=== PATIENT | female | born 1955 | race Caucasian/White ===

== ENCOUNTER 2024-05-09 09:40 | Inpatient (IN) ==
--- NOTE | 2024-05-09 10:12 | Emergency Department Note ---
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 Per external records and the office visit in [facility] from [facility] on 04/18/2024 patient has a past medical history of cancer of the sigmoid status post robotic assisted laparoscopic resection and biopsy from the right scapula which shows metastatic adenocarcinoma consistent with colorectal cancer as the primary source. She just started third line treatment Lonsurf and Bevcizumab. She notes that she started these medications yesterday. At 11 PM last night she noticed shortness of breath and feels like she cannot take a deep breath. She denies any new cough, congestion, or runny nose. No headache or change in vision. No belly pain. No nausea, vomiting, or diarrhea. No dysuria, urgency, or frequency. No other exacerbating or remitting factors. She has also noticed some mild pitting edema to the bilateral lower extremities which she noticed in her calves over the past day. ADDITIONAL HISTORY OBTAINED: Per HPI Chronic Medical/Social Conditions Affecting Care: Per HPI PAST MEDICAL HISTORY:See Below PAST SURGICAL HISTORY:See Below FAMILY HISTORY:See Below SOCIAL HISTORY:See Below HOME MEDICATIONS:See Below ALLERGIES:See Below VITALS:See Below PHYSICAL EXAMINATION: GENERAL: Sitting up in bed, alert, chronically ill-appearing, malnourished, EYE EXAM: normal conjunctiva. OROPHARYNX: no exudate, no erythema, lips, buccal mucosa, and tongue normal and mucous membranes are moist NECK: supple, no nuchal rigidity, no adenopathy, non-tender LUNGS: Clear to auscultation. Normal chest wall mechanics HEART: no murmurs, S1 normal and S2 normal ABDOMEN: abdomen soft, non-tender, normo-active bowel sounds, no masses, no rebound or guarding. UPPER EXTREMITIES: upper extremities are grossly normal. LOWER EXTREMITIES: Feet pitting edema bilaterally. Calves are equal bilaterally NEURO EXAM: Normal sensorium, cranial nerves II-XII grossly intact, normal speech, no gross weakness of arms, no gross weakness of legs. MEDICAL DECISION MAKING: Patient is a 69-year-old female who presents ER for the below stated complaint. IV was established and blood work was obtained. Patient was short of breath and found to be hypoxic. She was placed on 2 L nasal cannula due to hypoxia at 87%. Labs show no significant leukocytosis. Mild anemia at 9. Platelets are slightly low at 122. BMP with mild hyponatremia at 131. LFTs and bilirubin were unremarkable. Troponin mildly elevated at 18. BNP elevated 1200. Lipase normal. Chest x-ray with small pleural effusions. Patient was given IV Lasix updated bedside discussed with the hospitalist for further evaluation management treatment. Consults/Care Managements Discussions: Per MDM Triage Nursing notes reviewed. Limited review of prior medical records performed Vital Signs: reviewed and remarkable for no significant abnormalities Differential diagnosis: Differential diagnoses includes but is not limited to pneumonia, bronchitis, COPD/Asthma exacerbation, pneumothorax, pulmonary embolism, congestive heart failure, acute coronary syndrome ER treatment provided: See below Diagnostics interpreted by me include EKG and cardiac monitoring as listed below: -Cardiac Monitoring: An order was placed for continuous cardiac monitoring. The monitor shows a rate of 95 with sinus rhythm. -ECG: Sinus tachycardia rate of 101 Normal axis No PVCs QTc 474 -Laboratory studies:Interpreted by me as stated above in MDM and shown below. Imaging studies: Xrays: As interpreted by me: Portable AP upright 1 view of the chest shows vascular congestion with effusions CTs show: None Procedures: None Critical Care: I have personally spent 33 minutes of critical care time in the direct management of this patient. This includes bedside care, interpretation of diagnostic studies, and testing, discussion with consultants, patient, and family members, and other required patient management activities. This 33 minutes is in excess of all separately billable procedures. 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 (Acute) Pain from bone metastases (Chronic) Medical History (Updated 05/09/24 @ 13:40 by Saurabh Ordoñez DO) Breast cancer Surgical History (Updated 11/14/23 @ 09:04 by Marilu Hernandez RN) History of bowel resection Hx of cystoscopy S/P total hysterectomy and BSO (bilateral salpingo-oophorectomy) H/O right mastectomy Family History (Updated 11/14/23 @ 09:06 by Marilu Hernandez RN) Mother Cancer breast x 2 25 yrs apart Aunt Cancer multiple aunts with different forms of cancer Social History (Updated 11/14/23 @ 09:07 by Marilu Hernandez RN) Smoking Status: Never smoker Tobacco Type: Cigarettes Hx Alcohol Use: No Hx Substance Use: No Preferred Language: Afghan Visual Impairment: No Limitations Hearing Ability: Normal Beliefs That Will Affect Care: None Current Living Situation: Alone current occupational status: retired Feels Safe at Home: Yes Diet: regular during the past year weight has: remained stable Assistive Devices: Denture - Upper, Denture - Lower and Glasses Allergies Allergies Allergy/AdvReac Type Severity Reaction Status Date / Time doxycycline Allergy Intermediate Made me Unverified 04/25/24 09:40 feel worse metoclopramide [From Reglan] Allergy Intermediate Hives Unverified 04/25/24 09:40 Home Meds Home Medications Medication Instructions Recorded Confirmed metoprolol succinate 25 mg capsule 25 mg PO DAILY 11/14/23 05/09/24 sprinkle, ext. release 24 hr morphine 15 mg tablet,extended 15 mg PO Q12H 04/25/24 05/09/24 release (MS Contin) oxycodone 5 mg tablet 5 mg PO Q4H PRN Breakthrough Pain, 04/25/24 05/09/24 Moderate acetaminophen 500 mg tablet 500 mg PO Q6H PRN Breakthrough Pain 05/09/24 05/09/24 apixaban 5 mg tablet (Eliquis) 5 mg PO BID 05/09/24 05/09/24 ondansetron HCl 8 mg tablet 8 mg PO DIRECTED PRN n/v 05/09/24 05/09/24 trifluridine 15 mg-tipiracil 6.14 1 tab PO DIRECTED 05/09/24 05/09/24 mg tablet (Lonsurf) trifluridine 20 mg-tipiracil 8.19 1 tab PO DIRECTED 05/09/24 05/09/24 mg tablet (Lonsurf) Results & Data (ED) Vital Signs Vital Signs - 24 hr 05/09/24 09:48 05/09/24 10:00 05/09/24 10:00 Temperature 37.0 C Temperature Source Oral Pulse Rate 100 H 98 H Pulse Rate [Left Finger] Pulse Rhythm Regular Respiratory Rate 22 16 Respiratory Effort / Characteristics Labored Respiratory Pattern Regular Blood Pressure 124/79 Blood Pressure [Left Arm] Blood Pressure Mean 94 Blood Pressure Mean [Left Arm] Blood Pressure Position Sitting Pulse Oximetry 98 96 Oxygen Delivery Method Room Air Room Air Room Air Oxygen Flow Rate Sepsis Recent Fever Within 48 Hours No Sepsis New/Unexplained Change in Mental Status No Sepsis Action Taken by Nursing No Action Required 05/09/24 10:00 05/09/24 11:02 05/09/24 11:28 Temperature Temperature Source Pulse Rate 95 H Pulse Rate [Left Finger] Pulse Rhythm Respiratory Rate Respiratory Effort / Characteristics Respiratory Pattern Blood Pressure Blood Pressure [Left Arm] Blood Pressure Mean Blood Pressure Mean [Left Arm] Blood Pressure Position Pulse Oximetry 98 87 L Oxygen Delivery Method Room Air Room Air Oxygen Flow Rate Sepsis Recent Fever Within 48 Hours Sepsis New/Unexplained Change in Mental Status Sepsis Action Taken by Nursing 05/09/24 11:28 Temperature Temperature Source Pulse Rate Pulse Rate [Left Finger] 105 H Pulse Rhythm Respiratory Rate 22 Respiratory Effort / Characteristics Respiratory Pattern Blood Pressure Blood Pressure [Left Arm] 130/74 Blood Pressure Mean Blood Pressure Mean [Left Arm] 92 Blood Pressure Position Pulse Oximetry 98 Oxygen Delivery Method Nasal Cannula Oxygen Flow Rate 2 Sepsis Recent Fever Within 48 Hours Sepsis New/Unexplained Change in Mental Status Sepsis Action Taken by Nursing Laboratory Data 05/09/24 10:00 05/09/24 10:00 Lab Results 05/09/24 Range/Units 10:00 WBC 6.69 (4.8-10.8) K/ul RBC 3.24 L (4.20-5.40) M/uL Hgb 9.5 L (12.0-16.0) g/dl Hct 30.3 L (37.0-47.0) % MCV 93.5 (80.0-100.0) fL MCH 29.3 (25.0-34.0) pg MCHC 31.4 L (32.0-36.0) g/dL RDW Std Deviation 54.0 H (36.4-46.3) fL RDW Coeff of Katina 15.9 H (11.5-14.5) % Plt Count 122 L (130-400) K/uL MPV 10.8 (9.4-12.4) fL Immature Gran % (Auto) 0.6 % Neut % (Auto) 77.6 % Lymph % (Auto) 14.3 % [place] % (Auto) 4.5 % Eos % (Auto) 2.4 % Baso % (Auto) 0.6 % Neut # (Auto) 5.19 (1.40-6.50) K/uL Lymph # (Auto) 0.96 L (1.20-3.40) K/uL [place] # (Auto) 0.30 (0.11-0.59) K/uL Eos # (Auto) 0.16 (0.00-0.50) K/uL Baso # (Auto) 0.04 (0.00-0.20) K/uL Immature Gran # (Auto) 0.04 (0.01-0.20) K/uL Sodium 131 L (136-145) mmol/L Potassium 3.8 (3.5-5.1) mmol/L Chloride 100 (98-107) mmol/L Carbon Dioxide 23 (21-32) mmol/L Anion Gap 8 (3-11) BUN 10 (6-23) mg/dl Creatinine 0.35 L (0.6-1.2) mg/dl Est Cr Clr Drug Dosing Not Reportable eGFR 110.57 BUN/Creatinine Ratio 28.6 H (10-20) Glucose 108 H (70-99(Fasting)) mg/dl Calcium 7.6 L (8.6-10.3) mg/dl Total Bilirubin 0.7 (0.2-1.0) mg/dl AST 17 (13-39) U/L ALT 17 (7-52) U/L Alkaline Phosphatase 189 H (34-104) U/L Troponin I High Sens 18.5 H (0-14) pg/ml B-Natriuretic Peptide 1246 H (0-100) pg/ml Total Protein 6.7 (6.0-8.3) gm/dl Albumin 3.4 (3.4-5.0) gm/dl Globulin 3.3 (2.5-4.0) gm/dl Albumin/Globulin Ratio 1.0 (0.9-2) Lipase 7 L (11-82) U/L Administered Medications Discontinued Medications Furosemide (Furosemide 40 Mg/4 Ml Vial) 40 mg IV NOW STA Stop: 05/09/24 10:52 Last Admin: 05/09/24 10:59 Dose: 40 mg Documented By: GRETCHEN Imaging Data Radiologist's Impression: Chest X-Ray 05/09/24 10:04 XR chest 1V portable CLINICAL HISTORY: Chest pain, nonspecific COMPARISON STUDY: 11/02/2023 FINDINGS: Single view portable chest demonstrates a patchy airspace opacity in the right cardiophrenic angle and overall generalized increase in bronchovascular markings. There is slight blunting of the costophrenic angles. There is no atelectasis or pneumothorax. A MediPort catheter is identified entering from the right with the tip in the right atrium. IMPRESSION: Small infiltrate medial right lung base could represent early pneumonia. Generalized prominence of bronchovascular markings could represent a mild upper respiratory infection, fluid imbalance, or response to chemotherapy. Small bilateral pleural effusions are likely. ACT 112: Negative or not required by law. Electronically signed by: Kristin Singleton M.D. 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
[2024-05-09 10:29] LABS: Basophils # (auto) 0.04 K/uL (0.00-0.20); Basophils % (auto) 0.6 %; Eosinophils # (auto) 0.16 K/uL (0.00-0.50); Eosinophils % (auto) 2.4 %; Hematocrit (blood only) 30.3 % (37.0-47.0); Hemoglobin 9.5 g/dl (12.0-16.0); Immature Granulocytes # (auto) 0.04 K/uL (0.01-0.20); Immature Granulocytes % (auto) 0.6 %; Lymphocytes # (auto) 0.96 K/uL (1.20-3.40); Lymphocytes % (auto) 14.3 %; Mean Corpuscular Hemoglobin 29.3 pg (25.0-34.0); Mean Corpuscular Hgb Conc 31.4 g/dL (32.0-36.0); Mean Corpuscular Volume 93.5 fL (80.0-100.0); Mean Platelet Volume 10.8 fL (9.4-12.4); Monocytes % (auto) 4.5 %; Neutrophils # (auto) 5.19 K/uL (1.40-6.50); Neutrophils % (auto) 77.6 %; Platelet Count 122 K/uL (130-400); RDW Coefficient of Variation 15.9 % (11.5-14.5); Red Blood Count 3.24 M/uL (4.20-5.40); White Blood Count 6.69 K/ul (4.8-10.8)
--- NOTE | 2024-05-09 10:31 | XRay Report ---
XR chest 1V portable CLINICAL HISTORY: Chest pain, nonspecific COMPARISON STUDY: 11/02/2023 FINDINGS: Single view portable chest demonstrates a patchy airspace opacity in the right cardiophreni c angle and overall generalized increase in bronchovascular markings. There is slight blunting of the costophrenic angles. There is no atelectasis or pneumothorax. A MediPort catheter is identified ente ring from the right with the tip in the right atrium. IMPRESSION: Small infiltrate medial right lung base could represent early pneumonia. Generalized prominence of bronchovascular markings could represent a mild upper respiratory infection , fluid imbalance, or response to chemotherapy. Small bilateral pleural effusions are likely. ACT 112: Negative or not required by law. Electronically signed by: Kristin Singleton M.D. 05/09/2024 10:29 AM
[2024-05-09 10:41] LABS: Alanine Aminotransferase 17 U/L (7-52); Albumin Level 3.4 gm/dl (3.4-5.0); Alkaline Phosphatase 189 U/L (34-104); Anion Gap 8 (3-11); Aspartate Aminotransferase 17 U/L (13-39); BUN Creatinine Ratio 28.6 (10-20); Bilirubin,Total 0.7 mg/dl (0.2-1.0); Blood Urea Nitrogen 10 mg/dl (6-23); Calcium 7.6 mg/dl (8.6-10.3); Carbon Dioxide 23 mmol/L (21-32); Chloride 100 mmol/L (98-107); Globulin 3.3 gm/dl (2.5-4.0); Glucose 108 mg/dl (70-99(Fasting)); Lipase 7 U/L (11-82); Potassium 3.8 mmol/L (3.5-5.1); Sodium 131 mmol/L (136-145); Total Protein 6.7 gm/dl (6.0-8.3)
[2024-05-09 10:48] LABS: Troponin I High Sensitivity 18.5 pg/ml (0-14)
[2024-05-09] MEDS: FUROSEMIDE 40 MG/4 ML VIAL IV STA (10:59)
--- NOTE | 2024-05-09 11:16 | Communication Note ---
Date of Service: May 09, 2024 69-year-old female, a case of sigmoid colon cancer, locally advanced disease, she had low anterior resection and hysterectomy as it was involving the cervix and uterus, pathological T4 B, 5/15 lymph node positive for metastatic disease, normal preoperative CEA level in November of 2022. She received adjuvant chemotherapy with 10 cycles of FOLFOX but then allergic reaction with the oxaliplatin so she received 2 cycles of FOLFIRI which was completed in July of 2023. 2 months later, found to have FDG avid bone lesions involving the right scapula, L5 vertebral body and left proximal femur. Biopsy from the right scapula confirmed adenocarcinoma compatible with colorectal primary. She had radiation treatment to the right scapula, lumbar spine and left proximal femur which was completed in November of 2023. She received FOLFIRI between December 2023 - early March 2024. PET-CT scan done in mid-March 2024 showed significant disease progression mainly in the multiple bones. She does complain of left hip pain. 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 Reviewed information outlined on [facility] website regarding further treatment with her and her daughter. We talked about overall treatment goal which would be palliative and not curative I would consider for Lonsurf (trifluridine and tipiracil) and Bevacizumab ( received 04/22 and 05/06)combination, reviewed with them regarding treatment schedule side effect profile and she is in agreement for that. I would like to have Radiation Oncology consultation and see whether she can be a candidate for additional palliative radiation treatment. She will continue oxycodone for now. We talked to her about long-acting opioid but she would like to continue oxycodone at this time. I would like to start Xgeva every monthly. She should take vitamin-D and Calcium supplementation on regular basis. History of A-fib; seen by cardiology. EF of 55% in December 2023.
--- NOTE | 2024-05-09 11:49 | History & Physical Report ---
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 She is currently under Dr. Almonte's care; on Lonsurf and bevacizumab (received on 04/22 and 05/06) Acute CHF Patient presents with shortness of breath, orthopnea and bilateral lower extremity edema BNP elevated to 1246 PG/mL Chest x-ray reviewed; pulmonary edema present Started on IV Lasix 40 mg twice daily. Strict input and output monitoring. Daily weights. Obtain echocardiogram; echocardiogram from December 2023 showed EF of 55% Will obtain cardiology consult Reached out to oncology regarding possibility of relation of bevacizumab; seems unlikely as per Dr. Almonte. Recommended to hold treatment for now. Obtain urinalysis, urine protein creatinine ratio to rule out nephrotic syndrome History of paroxysmal A-fib EKG on admission reviewed; sinus tachycardia present Continue on metoprolol and Eliquis Metastatic sigmoid cancer on palliative chemotherapy/radiation Continue pain control with home medication Will hold Lonsurf as per recommendation by Dr. Almonte DNR/DNI DVT prophylaxis Eliquis; monitor platelets Discussed with daughter at bedside. Agreeable with the plan. Time spent evaluating patient, direct bedside care, chart review, placing orders, interpretation of diagnostic studies, discussion with consultants, patient, and family members, as well as other required patient management activities is 75 minutes Please note the above document was generated using voice recognition software. It may contain grammatical, syntax or spelling errors. Any formal questions or concerns about the content, text or information contained within the body of this dictation should be directly addressed to the provider for clarification History of Present Illness Chief Complaint: Shortness of breath for 1 week Bilateral lower extremity edema Primary Care Provider: Lina Young MD History obtained from chart review and interview with the patient. Past medical history of sigmoid cancer, locally advanced status post low anterior resection and hysterectomy. Had received adjuvant chemotherapy of 10 cycle of FOLFOX but then allergic reaction with the oxaliplatin so she received 2 cycles of FOLFIRI which was completed in July of 2023. Currently on palliative radiation and chemotherapy due to progression of disease with metastatic to bones. Received bevacizumab 04/22 and 05/06. Also on Lonsurf (trifluridine and tipiracil); started recently. Other significant history of remote breast cancer, history of A-fib on metoprolol and Eliquis. Echo in December 2023 shows EF of 55% Patient presents to the hospital with shortness of breath, lower extremity edema and orthopnea for several days. She denies fever, chills, chest pain, abdominal pain or urinary symptoms. She reports pain at places of metastatic disease. She takes morphine for pain relief. Workup in the ED is concerning for CHF; referred for admission. Allergies Allergy/AdvReac Type Severity Reaction Status Date / Time doxycycline Allergy Intermediate Made me Unverified 04/25/24 09:40 feel worse metoclopramide [From Reglan] Allergy Intermediate Hives Unverified 04/25/24 09:40 Home Medications Medication Instructions Recorded Confirmed Type acetaminophen 325 mg tablet 325 mg PO QID PRN PAIN/FEVER 11/02/23 04/25/24 History (Tylenol) metoprolol succinate 25 mg capsule 12.5 mg PO DAILY 11/14/23 04/25/24 History sprinkle, ext. release 24 hr apixaban 2.5 mg tablet (Eliquis) 2.5 mg PO BID 04/25/24 04/25/24 History morphine 15 mg tablet,extended 15 mg PO Q12H 04/25/24 04/25/24 History release (MS Contin) oxycodone 5 mg tablet 5 mg PO Q4H PRN 04/25/24 04/25/24 History ondansetron HCl 8 mg tablet 8 mg PO DIRECTED PRN n/v 05/09/24 History trifluridine 15 mg-tipiracil 6.14 1 tab PO DIRECTED 05/09/24 History mg tablet (Lonsurf) trifluridine 20 mg-tipiracil 8.19 1 tab PO DIRECTED 05/09/24 History mg tablet (Lonsurf) Past Med/Surg History Problem List (Updated 05/09/24 @ 11:50 by Lex Noonan MD) Atrial fibrillation CHF (congestive heart failure) 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 Pain from bone metastases (Chronic) Medical History (Updated 05/09/24 @ 11:50 by Lex Noonan MD) Breast cancer Surgical History (Updated 11/14/23 @ 09:04 by Marilu Hernandez, RN) History of bowel resection Hx of cystoscopy S/P total hysterectomy and BSO (bilateral salpingo-oophorectomy) H/O right mastectomy Family History (Updated 11/14/23 @ 09:06 by Marilu Hernandez, RN) Mother Cancer breast x 2 25 yrs apart Aunt Cancer multiple aunts with different forms of cancer Social History (Updated 11/14/23 @ 09:07 by Marilu Hernandez, RN) Smoking Status: Never smoker Tobacco Type: Cigarettes Hx Alcohol Use: No Hx Substance Use: No Preferred Language: [place] Visual Impairment: No Limitations Hearing Ability: Normal Beliefs That Will Affect Care: None Current Living Situation: Alone current occupational status: retired Feels Safe at Home: Yes Diet: regular during the past year weight has: remained stable Assistive Devices: Denture - Upper, Denture - Lower and Glasses Review of Systems Review of Systems: All systems reviewed & are unremarkable except as noted in Subjective Physical Exam Physical Exam: Constitutional: Awake, alert oriented x 3. Not in any distress. Respiratory: Bilateral basilar crackles present. Cardiovascular: Regular, tachycardic. Elevated JVP Chest: normal inspection of chest Abdomen: normal bowel sounds, soft, nontender, no hepatosplenomegaly Musculoskeletal: Bilateral pitting edema present, 2+. Neurologic: PERRL, EOMI, accommodation nl, no face palsy, no dysarthria CN's II- XI intact bilaterally and moves all extremities Psychiatric: A+Ox3, euthymic affect Results & Data Results & Data Vital Signs (Past 12 Hours) Vital Signs Temp Pulse Pulse Resp BP BP Pulse Ox 05/09/24 11:28 105 H 22 130/74 98 05/09/24 11:28 87 L 05/09/24 11:02 95 H 05/09/24 10:00 98 05/09/24 10:00 05/09/24 10:00 98 H 16 96 05/09/24 09:48 37.0 C 100 H 22 124/79 98 O2 Del Method O2 Flow Rate 05/09/24 11:28 Nasal Cannula 2 05/09/24 11:28 Room Air 05/09/24 11:02 05/09/24 10:00 Room Air 05/09/24 10:00 Room Air 05/09/24 10:00 Room Air 05/09/24 09:48 Room Air Code Status & VTE Plan VTE Prophylaxis Plan VTE Prophylaxis will be ordered: No Reason for no VTE drug order: Treatment not indicated
--- OUTSIDE RECORDS SUMMARY | 2024-05-09 12:11 | External Medical Summary | Summary of Care ---
Author Name Unknown Organization [facility] Address [address] [place] [address] Phone [phone] Care Team Providers Care Sharepoint Manager Name Role Phone Lina Can MD Primary Care Prov ider Reason for Visit * Reason Onset Date Comments Precert Future 04/18/2024 annel Wan Encounter Details Date Type Department Care Team (Late st Contact Info) Description 04/18/2024 Telephone Hematology/Oncology Treatment, [place] [address] [place] [address] Chandni Almonte MD [address] [place] [address] Precert Future (annel Wan) Allergies Active Allergy Reactions Criticality Noted Date Comments Amoxicillin-Pot Clavulanate Nausea/vomiting 07/12/2022 GI upset Doxycycline Nausea/vomiting 07/12/2022 GI upset Oxaliplatin Flushing High 07/27/2023 Shortness of breath Metoclopramide Hives 08/10/2022 documented as of this encounter (statuses as of 05/06/2024) Medications Acetaminophen 500 MG Oral Tablet (Tylenol Extra Strength) Take 1 Tablet by mouth every 6 hours as needed for Fever (Temp Greater than ) or Pain, Moderate. Active Prochlorperazine Maleate 10 MG Oral Tablet (Compazine)Indic ations:Malignant neoplasm of sigmoid colon (HCC) Take 1 Tablet by mouth every 6 hours as needed for Nausea. 30 Tablet 1 12/18/19 24 Active Metoprolol Succinate ER 25 MG Oral Tablet Extended Release 24 Hour (toPROL XL)Indications:N ew onset atrial fibrillation (HCC) Take 1 Tablet by mouth in the morning. 90 Tablet 1 02/19/20 24 Active Eliquis 5 MG Oral Tablet Take 1 Tablet by mouth in the morning and 1 Tablet before bedtime. 60 Tablet 11 02/26/20 24 Active Potassium Chloride ER 10 MEQ Oral Tablet Extended ReleaseIndicatio ns:Malignant neoplasm of sigmoid colon (HCC) Take 1 Tablet by mouth in the morning. 30 Tablet 1 03/11/20 24 Active Additional Information Patient not taking.Reported on 05/01/2024 traMADol HCl 50 MG Oral Tablet (Ultram)Indicati ons:Malignant neoplasm of sigmoid colon (HCC) Take 1 Tablet by mouth every 6 hours as needed for Pain, Moderate. 30 Tablet 04/11/19 25 Active Ondansetron HCl 8 MG Oral Tablet (Zofran)Indicati ons:Malignant neoplasm of sigmoid colon (HCC) Take 1 Tablet by mouth every 8 hours as needed for Nausea. 30 Tablet 1 12/18/19 24 025 Discontin ued(Refil l) oxyCODONE HCl 5 MG Oral Tablet (Oxy IR)Indications:M alignant neoplasm of sigmoid colon (HCC),Metastasis to bone (HCC) Take 1 Tablet by mouth every 4 hours as needed for Pain, Moderate. 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 Patient declined Within the past 12 months, t he food you bought just didn't last and you didn't have money to get more. Patient declined 06/2022 Comments No Sex and Gender Information Value Date Recorded Sex Assigned at Female 08/10/2022 10:14 AM EDT Legal Sex Female 7:14 AM EST Gender Identity Female 08/10/2022 10:14 AM EDT Sexual Orientation Straight 08/10/2022 10 :14 AM EDT documented as of this encounter Functional Status * Are you deaf or do you have serious difficulty hearing? Answer Date of Assessment Author No 11/25/2022 5:16 PM Nikita Milton RN * Are you blind or do you have serious difficulty seeing, even when wearing glasses? Answer Date of Assessment Author No 11/25/2022 5:16 PM Nikita Milton RN * Do you have serious difficulty walking or climbing stairs? (5 years old or older) Answer Date of Assessment Author No 11/25/2022 5:16 PM Nikita Milton RN * Do you have difficulty dressing or bathing? (5 years old or older) Answer Date of Assessment Author No 11/25/2022 5:16 PM Nikita Milton RN * Because of a physical, mental, or emotional condition, do you have difficulty doing errands alone such as visiting a doctors office or shopping? (15 years old or older) Answer Date of Assessment Author No 11/25/2022 5:16 PM EDT Nikita Ramirez RN documented as of this encounter Mental Status * Because of a physical, mental, or emotional condition, do you have serious difficulty concentrating, remembering, or making decisions? (5 years old or older) Answer Entry Date Author No 11/25/2022 5:16 PM EDT Nikita Ramirez RN documented in this encounter Miscellaneous Notes * Telephone Encounter - Tereza Gray RN - 05/06/2024 2:36 PM EST Per [facility] note, patient is starting lonsurf 05/07. * Telephone Encounter - Tereza Gray RN - 05/02/2024 7:26 AM EST Lonsurf is being shipped 05/06. * Telephone Encounter - Tereza Gray RN - 04/30/2024 1:39 PM EST Spoke to Prema Sandoval- since patient has uncompensated care, checking for cross approval. * Telephone Encounter - Tereza Gray RN - 04/29/2024 7:41 AM EST Copay assistance still in process. * Telephone Encounter - Tereza Gray RN - 04/23/2024 10:27 AM EST Referral entered for lonsurf, can be filled at [facility]. MyG sent. * Telephone Encounter - Glo Drake OSA - 04/19/2024 8:21 AM EST Updated appts * Telephone Encounter - Tereza Gray RN - 04/19/2024 7:37 AM EST Zirabev referral entered. Waiting for lonsurf. * Telephone Encounter - Tereza Gray RN - 04/18/2024 3:47 PM EST Order received for zirabev, lonsurf. [place] plan built. Waiting for auth. Consent signed 04/18/24. Patient is scheduled for treatment 04/22- will change this to zirabev. Labs today- patient aware she needs to drop off urine specimen. Scheduling: please change appts 04/22 - change lab appt to 1pm "urine" - change treatment at 1:15 to 2 hour appt "C1D1 zirabev- use labs from 04/18/24" Precert: can you please update referral for zirabev? This was approved until previous beacon plan. Thanks! documented in this encounter Plan of Treatment Upcoming Encounters Date Type Department Care Team (Late st Contact Info) Description 05/15/2024 10:00 AM EST Office Visit Palliative Medicine [facility] [address] [place] [address] Bianca Ruiz MD [address] [place], [place] [address] [address] 05/16/2024 9:45 AM EST Pharmacy Pharmacy Hematology Oncology [facility] [address] [place] [address] [facility] Hem/Onc [address] [place] [address] 05/20/2024 9:40 AM EST Laboratory Laboratory [facility] [address] [place] [phone] Nasreen, [address] [place] [address] 05/20/2024 10:15 AM EST Office Visit Hematology/Oncology [facility] [place] [address] [place] [phone] Chandni Almonte MD [address] [place] [address] 05/20/2024 10:45 AM EST Hem/Onc Treatment Hematology/Oncology [facility] [address] [place] [phone] Nasreen, Chair [address] Onc [address] [place] [address] 07/19/2024 11:30 AM EDT Office Visit Cardiology, [facility] [address] [facility] [place] [address] Ciro Saini, [address] [place] [address] 02/03/2025 1:00 PM EDT Office Visit Gynecology/Obstetrics [facility] [address] [facility] [place] [address] Nelli Farrell CRNP [address] [place] [address] Health Maintenance Due Date Last Done Comments Hepatitis C Screening 1973 DTap/Tdap Vaccines (1 - Tdap) 1974 Pneumococcal Vaccine: 50+ Years (1 of 2 - PCV) 1974 Zoster Vaccines (1 of 2) 1974 Cologuard 02/03/2000 Fecal Occult Blood Test 02/03/2000 Sigmoidoscopy 02/03/2000 DXA Scan 02/03/2020 COVID-19 Vaccine (3 - Moderna risk series) 07/25/2020 06/27/2020, 05/30/2020 Adult Wellness Visit 2021 Depression Screening 08/11/2023 08/10/2022 Influenza Vaccine (FLU shot) (#1) 2023 Lipid Panel 07/13/2027 07/12/2022 Colonoscopy 10/21/2032 10/21/2022, 10/08, 10/06/2022, Additional history exists Colorectal Cancer Screening 10/21/2032 Pap Smear Discontinued 08/10/2022 HPV (Gardasil) Vaccine Aged Out No lo nger eligible based on patient's age to complete this topic Hepatitis B Vaccine Aged Out No longe r eligible based on patient's age to complete this topic MENINGOCOCCAL (MENACTRA/MENVEO) Aged Out No longer eligible based on patient's age to complete this topic documented as of this encounter Medical Devices Implanted Type Area Email Marketing Processor Device Identifier Shelf Expiration Date Model / Serial / Lot Power Port 8fr Sngl Lumen Plas - [id number] Implanted:Qty : 1 on 01/05/2023 by Jai Malcolm Jr., MD at OR [facility] Right: Chest CR BARD : PERIPHERAL VASCULAR [id number] 07/08/2024 [id number] / / [id number] documented as of this encounter Advance Directives * Full Code (Latest Code Status on File) Date Activated Date Inactivated Comments 11/25/2022 1:54 PM 11/27/2022 2:41 PM This order r eflects the patients wishes and were consensually agreed upon. Question Answer Comments Discussion of Advance Directives occurred with: Patient Does the patient have a Living Will? No Does the patient have Health Care Power of Attor johann? No Care Teams Sharepoint Manager Relationship Specialty Start Date End Date Lina Can MD [address] [place] [address] [place] [address] PCP - General Family Medicine 08/06/22 documented as of this encounter
--- OUTSIDE RECORDS SUMMARY | 2024-05-09 12:11 | External Medical Summary ---
Author Name Unknown Address Unknown Organization [facility] [place] [address] Laboratory Report Ordering Provider Test Date Status DANNIELLE OLVERA 05/06/2024 10:32:39 Final Observation Date Value Abnormality Reference (Units ) Status RBC, Urine 05/06/2024 10:32:39 0-2 0-2 (/HPF) Final WBC, Urine 05/06/2024 10:32:39 30-49 Abnormal 0-2 (/HPF) Final Bacteria [#/area] in Urine sediment by Microscopy high power field 05/06/2024 10:32:39 26-50 Abnormal 0-25 (/HPF) Final Performing Location [facility] [address] [place] [address]
--- OUTSIDE RECORDS SUMMARY | 2024-05-09 12:11 | External Medical Summary ---
Author Name Unknown Address Unknown Organization [facility] [address] [place] [address] Laboratory Report Ordering Provider Test Date Status DANNIELLE OLVERA 05/06/2024 10:32:39 Final Observation Date Value Abnormality Reference (Units ) Status BUN 05/06/2024 10:32:39 10 6-20 (mg/dL) Final Creatinine 05/06/2024 10:32:39 0.4 Below low normal 0.5-1.0 (mg/dL) Final Glomerular filtration rate/1.73 sq M.predicted [Volume Rate/Area] in Serum, Plasma or Blood by Creatinine-based formula (CKD-EPI) 05/06/2024 10:32:39 >90 >=60 (mL/min) Final eGFR is calculated based on the CKD-EPI 2020 equation. Sodium 05/06/2024 10:32:39 133 Below low normal 135 -146 (mmol/L) Final Potassium 05/06/2024 10:32:39 4.0 3.5-5.1 (m mol/L) Final Cl 05/06/2024 10:32:39 97 Below low normal 98- 107 (mmol/L) Final CO2 05/06/2024 10:32:39 23 22-32 (mmo l/L) Final Anion gap 05/06/2024 10:32:39 13 7-15 (mmol /L) Final Glucose 05/06/2024 10:32:39 120 70-120 (mg /dL) Final Albumin 05/06/2024 10:32:39 3.5 Below low normal 3.8 -5.0 (g/dL) Final AST (Aspartate aminotransferase) 05/06/2024 10:32:39 34 10-35 (U/L) Fin al Alk Phos 05/06/2024 10:32:39 229 Above high normal 35 -130 (U/L) Final Bilirubin, Total 05/06/2024 10:32:39 0.5 <=1 .2 (mg/dL) Final Calcium 05/06/2024 10:32:39 8.8 8.4-10.2 ( mg/dL) Final Protein 05/06/2024 10:32:39 7.3 6.0-8.3 (g /dL) Final ALT (Alanine aminotransferase) 05/06/2024 10:32:39 27 10-35 (U/L) Shubham ornelas Performing Location [facility] [address] [place] [address]
--- OUTSIDE RECORDS SUMMARY | 2024-05-09 12:11 | External Medical Summary ---
Author Name Unknown Address Unknown Organization [facility] [address] Laboratory Report Ordering Provider Test Date Status DANNIELLE OLVERA 05/06/2024 10:32:39 Final Observation Date Value Abnormality Reference (Units ) Status WBC, Total 05/06/2024 10:32:39 8.27 4.00-10.8 0 (K/uL) Final RBC 05/06/2024 10:32:39 3.41 3.85-5.15 (M/uL) Final Hemoglobin 05/06/2024 10:32:39 10.2 Below low normal 12 .0-15.3 (g/dL) Final HCT 05/06/2024 10:32:39 33.8 Below low normal 36. 0-45.2 (%) Final MCV 05/06/2024 10:32:39 99.1 81.5-97.5 (fL) Final MCH 05/06/2024 10:32:39 29.9 27.0-34.0 (pg) Final MCHC 05/06/2024 10:32:39 30.2 32.0-36.0 (g/dL) Final RDW 05/06/2024 10:32:39 15.6 11.5-15.5 (%) Final Platelets 05/06/2024 10:32:39 184 140-400 (K /uL) Final MPV 05/06/2024 10:32:39 10.6 6.6-11.1 ( fL) Final Performing Location [facility] [address]
--- OUTSIDE RECORDS SUMMARY | 2024-05-09 12:11 | External Medical Summary ---
Author Name Unknown Address Unknown Organization K[facility] [place] [address] Laboratory Report Ordering Provider Test Date Status DANNIELLE OLVERA 05/06/2024 10:32:39 Final Observation Date Value Abnormality Reference (Units ) Status Magnesium 05/06/2024 10:32:39 2.3 1.5-2.6 (m g/dL) Final Performing Location [facility] [place] [address]
--- OUTSIDE RECORDS SUMMARY | 2024-05-09 12:11 | External Medical Summary | Summary of Care ---
Author Name Unknown Organization [facility] Address [address] [place] [address] Phone [phone] Care Team Providers Care Stationary Engineer Apprentice Name Role Phone Lina Can MD Primary Care Prov ider Reason for Visit * Reason Comments Chemotherapy Zirabev * Episode Based Medications (Routine) - Authorized Specialty Diagnoses / Procedures Referred By Contac t Referred To Contact Diagnoses Encounter for antineoplastic chemotherapy Malignant neoplasm of sigmoid colon (HCC) Procedures SC INJ., ZIRABEV, 10 MG Heriberto Wiley MD [address] [place] [address] [place] [address] Phone: tel: fax: Hematology/Oncology Treatment, [address] [address] Phone: tel: fax: Referral ID Status Reason Start Date Expiration Date V isits Requested Visits Authorized [id number] Authorized 04/18/2024 04/09/2099 [id number] Encounter Details Date Type Department Care Team (Latest Contact Info) Description 05/06/2024 11:30 AM EST Hem/Onc Treatment Hematology/Oncolog y Treatment, [address] [address] Nasreen, Chair 1 Hem Onc [address] [place] [address] Encounter for antineoplastic chemotherapy*; Malignant neoplasm of sigmoid colon (HCC) Allergies Active Allergy Reactions Criticality Noted Date [...] Pain, Moderate. 30 Tablet 04/11/19 25 Active Morphine Sulfate ER 15 MG Oral Tablet Extended Release (Ms Contin)Indicatio ns:Malignant neoplasm of sigmoid colon (HCC),Metastasis to bone (HCC) Take 1 Tablet by mouth in the morning and 1 Tablet before bedtime. 60 Tablet 04/23/19 25 Active Trifluridine-Tip iracil 15-6.14 MG Oral Tablet (Lonsurf)Indicat ions:Malignant neoplasm of sigmoid colon (HCC) Take 2 tablets (30 mg) by mouth in the morning and 2 tablets (30 mg) before bedtime on days 1-5 and 8-12 of 28-day cycle. Take within 1 hour of meal. 40 Tablet 5 05/03/2024 1:01 PM EST 04/24/19 25 Active Trifluridine-Tip iracil 20-8.19 MG Oral Tablet (Lonsurf)Indicat ions:Malignant neoplasm of sigmoid colon (HCC) Take 1 tablet (20 mg) by mouth in the morning and 1 tablet (20 mg) before bedtime on days 1-5 and 8-12 of 28-day cycle. Take within 1 hour of meal. 20 Tablet 5 05/03/2024 1:01 PM EST 04/24/19 25 Active oxyCODONE HCl 5 MG Oral Tablet (Oxy IR)Indications:M alignant neoplasm of sigmoid colon (HCC),Metastasis to bone (HCC) Take 1 Tablet by mouth every 4 hours as needed for Pain, Moderate. Continued script 60 Tablet 04/29/19 25 Active Ondansetron HCl 8 MG Oral Tablet (Zofran)Indicati ons:Malignant neoplasm of sigmoid colon (HCC) Take 1 Tablet by mouth every 8 hours as needed for Nausea. 30 Tablet 1 12/18/19 24 025 Discontin ued(Refil l) documented as of [...] AM EDT documented as of this encounter Last Filed Vital Signs Vital Sign Reading Time Taken Comments Blood Pressure 116/80 05/06/2024 11:52 AM EST Pulse 121 05/06/2024 11:52 AM EST Temperature 35.8 C (96.5 F) 05/06/2024 11:[address] Respiratory Rate 16 05/06/2024 11:52 AM EST Oxygen Saturation 98% 05/06/2024 11:52 AM EST Inhaled Oxygen Concentration - - Weight - - Height - - Body Mass Index - - documented in this encounter Functional Status * Are you [...] Nikita Ramirez RN documented in this encounter Nursing Notes * Mery Luther RN - 05/06/2024 2:48 PM EST Pt completed treatment without issues. VAD flushed with 10 ml NSS and Heparin 5 ml (100 units/ml). Bowie needle removed intact. Goals: Pt will remain free from injury. Possible barriers to meeting goals: pt is currently a high fall risk Stability of the patient: Moderately stable - low risk of patient condition declining or worsening Summary regarding today's goals: Met: . Pt remained free from injury during treatment today. Discharged in stable condition. * Mery Luther RN - 05/06/2024 12:19 PM EST Chair 1 Chemotherapy/Immunotherapy agents: ANGEL Consent for chemotherapy drug treatment complete, dated, and signed? yes, date - 04/18/24 Treatment lab parameters met? Yes Has treatment weight changed > than 10%? No Treatment preauthorized? Yes VITALS Filed Vitals: 05/06/24 1152 BP: 116/80 Pulse: 121 Resp: 16 Temp: 35.8 C (96.5 F) SpO2: 98% BP Readings from Last 2 Encounters: 05/06/24 116/80 04/22/24 122/56 Pulse Readings from Last 2 Encounters: 05/06/24 121 04/22/24 136 Resp Readings from Last 2 Encounters: 05/06/24 16 04/22/24 16 SpO2 Readings from Last 2 Encounters: 05/06/24 98% 04/22/24 97% Temp Readings from Last 2 Encounters: 05/06/24 35.8 C (96.5 F) 04/22/24 36.2 C (97.2 F) Urine protein: POSITIVE, trace Patient education completed for treatment? Yes Blood transfusion consent signed and complete? NA Return appointment scheduled? Yes Patient had provider visit today? No - If no provider visit must complete Pretreatment Assessment PRE-TREATMENT ASSESSMENT: NEURO: fatigue:stable CV/RESP: denies symptoms GI/: denies symptoms OTHER: denies any additional symptoms PAIN: 5-6 pain location : Pt reports pain in BLEs, back. Pt is now taking MS Contin Q12 hours and states this has been more effective than Oxy IR. Pt is ambulating with difficulty, using a cane whichshe states helps with pain. Pt states pain at best is 2/10. VAD accessed; NSS infusing. Safety and Risk for Injury Patient will remain free from injury. Ensure appropriate safety devices are available. Provide and maintain safe environment. Functional Status: Functional status at today's visit: Ambulatory and capable of all selfcare but unable to carry out any work activities. Up and about more than 50% of waking hours The drug name, dose, infusion volume, rate and route of administration, expiration date and time, appearance and physical integrity of the drug and rate set on the pump and sequencing of drug administration (as applicable) were verified by me and second sign-in RN. Patient was assessed for symptoms or adverse side effects during treatment. Patient Education: Patient instructed on use of heat and massage functions where applicable. Patient shown how to operate the heat function of the chair and to alert nursing staff if the chair feels too warm. Patient instructed on the risk of potential carrillo while using the heat function. documented in this encounter Plan of Treatment Upcoming Encounters Date Type Department Care Team (Late st Contact Info) Description 05/15/2024 10:00 AM EST Office Visit Palliative Medicine [facility] [address] [place] [address] Bianca Ruiz MD [address] [place] [address] [place] [phone] 05/16/2024 9:45 AM EST Pharmacy Pharmacy Hematology Oncology [address] [place] [address] [facility] Hem/Onc [address] [facility], [place] [address] 05/20/2024 9:40 AM EST Laboratory Laboratory [facility] [address] [place] [phone] Nasreen, Lab Scen[address] [facility] [place] [address] 05/20/2024 10:15 AM EST Office Visit Hematology/Oncology [facility] [place] [address] [place] [phone] Chandni Almonte MD [address] [place] [address] 05/20/2024 10:45 AM EST [facility] [address] [place] [phone] Nasreen, Chair 11 Hem Onc Scen[address] [place] [address] 07/19/2024 11:30 AM EDT Office Visit Cardiology, [facility] [address] [place] [address] Ciro Saini DO [address] [place] [address] 02/03/2025 1:00 PM EDT Office Visit Gynecology/Obstetrics [facility] [address] [place] [address] Nelli Farrell CRNP [address] [place] [address] Health Maintenance Due Date Last Done Comments [...] this encounter Medical Devices Implanted Type Area Census Taker Device Identifier Shelf Expiration Date Model / Serial / Lot Power Port 8fr Sngl Lumen Plas - [id number] Implanted:Qty : 1 on 01/05/2023 by Jai Malcolm Jr., MD at OR [facility] Right: Chest CR BARD : PERIPHERAL VASCULAR [id number] 07/08/2024 [id number] / / [id number] documented as of this encounter Visit Diagnoses Diagnosis Encounter for antineoplastic chemotherapy- Primary Malignant neoplasm of sigmoid colon (HCC) Malignant neoplasm of sigmoid colon documented in this encounter Administered Medications Active Administered Medications - up to 3 most recent administrations Medication Order MAR Action Action Date Dose Rate Site diphenhydrAMINE (Benadryl) inj 50 mg 50 mg, IV Push, ONCE PRN Other, Hypersensitivity Reaction, Starting on Mon05/06/24 at 1152, Until Mon05/07/24 at 1151, For 24 hoursIndications:Encounter for antineoplastic chemotherapy,Malignant neoplasm of sigmoid colon (HCC) EPINEPHrine 1 MG/ML inj 0.3 mg 0.3 mg, Intramuscular, ONCE PRN Other, Hypersensitivity Reaction or Anaphylaxis, Starting on Mon05/06/24 at 1152, Until Mon05/07/24 at 1151, For 24 hoursIndications:Encounter for antineoplastic chemotherapy,Malignant neoplasm of sigmoid colon (HCC) hEParin 100 UNIT/ML Lock Flush inj 500 Units 500 Units (5 mL), IV Lock, PRN Other, IV Flush, Starting on Mon05/06/24 at 1152, Until Mon05/07/24 at 1151, For 24 hours, Do not flush if lock, PICC, or central line not in place; IV infusing or unable to flush.Indications:Encounter for antineoplastic chemotherapy,Malignant neoplasm of sigmoid colon (HCC) Given 05/06/2024 1:22 PM EST 500 Units Hydrocortisone Sod Suc (PF) (Solu-Cortef) inj 100 mg 100 mg, IV Push, ONCE PRN Other, Hypersensitivity Reaction, Starting on Mon05/06/24 at 1152, Until Mon05/07/24 at 1151, For 24 hoursIndications:Encounter for antineoplastic chemotherapy,Malignant neoplasm of sigmoid colon (HCC) NSS infusion Intravenous, at 50 mL/hr, PRN, Starting on Mon05/06/24 at 1300, Until Discontinued, Maintenance lineIndications:Encounter for antineoplastic chemotherapy,Malignant neoplasm of sigmoid colon (HCC) Start Infusion 05/06/2024 12:02 PM EST 50 mL/hr oxygen GAS Inhalation, OXYGEN, First dose on Mon05/06/24 at 1600, Until Discontinued, Device/Managed by: Low Flow Device, Goal SPO2 (%): 91-95, Starting Device: Nasal Cannula, Initial Flow Rate (LPM): 2, Lowest Support: Nasal Cannula: Flow 0-6 LPM. Titrate up/down by 1 LPM., Higher Support: Non-Rebreather (NRB) Mask: Minimum of 10 LPM. Titrate to maintain bag inflation., Titration Interval: Q2 minutes and as needed., Notify Provider: For sudden DECREASE in resting SPO2 to less than 85% and when escalating delivery device., Wean patient off Oxygen when the oxygen saturation is greater than or equal to 93%Indications:Encounter for antineoplastic chemotherapy,Malignant neoplasm of sigmoid colon (HCC) sodium chloride 0.9 % flush central line 10 mL 10 mL, IV Push, PRN Other, IV Flush, Starting on Mon05/06/24 at 1152, Until Mon05/07/24 at 1151, For 24 hours, Do not flush if lock, PICC, or central line not in place; IV infusing or unable to flush.Indications:Encounter for antineoplastic chemotherapy,Malignant neoplasm of sigmoid colon (HCC) Given 05/06/2024 1:22 PM EST 10 mL Inactive Administered Medications - up to 3 most recent administrations Medication Order MAR Action Action Date Dose Rate Site bevaCIZumab-bvzr (Zirabev) 265 mg in NSS 100 mL infusion 265 mg (5 mg/kg 53 kg Treatment plan Recorded weight), IV Piggyback, ONCE, 1 dose, On 05/06/24 at 1330, Administer over 30 Minutes, Flush with NSS only!Indications:Encounter for antineoplastic chemotherapy,Malignant neoplasm of sigmoid colon (HCC) Start Infusion 05/06/2024 12:45 PM EST 265 mg 210 mL/hr documented in this encounter Advance Directives * Full Code [...] Power of Attor johann? No Care Teams Stationary Engineer Apprentice Relationship Specialty Start Date End Date Lina Can MD [address] [place] [address] [place] [address] PCP - General Family Medicine 08/06/22 documented as of this encounter
--- OUTSIDE RECORDS SUMMARY | 2024-05-09 12:11 | External Medical Summary | Summary of Care ---
Author Name Unknown Organization [facility] Address [address] [place] [address] Phone [phone] Care Team Providers Care Emergency Room Physician Name Role Phone Lina Can MD Primary Care Prov ider Reason for Visit * Reason Comments Medication Management Encounter Details Date Type Department Care Team (Late st Contact Info) Description 05/06/2024 9:30 AM [facility] Pharmacy Pharmacy Hematology Oncology [facility] [address] [place] [address] [facility] Hem/Onc [address], [place] [id number] Malignant neoplasm of sigmoid colon (HCC)* Allergies Active Allergy Reactions Criticality Noted Date [...] as needed for Nausea. 30 Tablet 1 4 Active Metoprolol Succinate ER 25 MG Oral Tablet Extended Release 24 Hour (toPROL XL)Indications:N ew onset atrial fibrillation (HCC) Take 1 Tablet by mouth in the morning. 90 Tablet 1 4 Active Eliquis 5 MG Oral Tablet Take 1 Tablet by mouth in the morning and 1 Tablet before bedtime. 60 Tablet 11 4 Active Potassium Chloride ER 10 MEQ Oral Tablet Extended ReleaseIndicatio ns:Malignant neoplasm of sigmoid colon (HCC) Take 1 Tablet by mouth in the morning. 30 Tablet 1 4 Active Additional Information Patient not taking.Reported on 05/01/2024 traMADol HCl 50 MG Oral Tablet (Ultram)Indicati ons:Malignant neoplasm of sigmoid colon (HCC) Take 1 Tablet by mouth every 6 hours as needed for Pain, Moderate. 30 Tablet 5 Active Morphine Sulfate ER 15 MG Oral Tablet Extended Release (Ms Contin)Indicatio ns:Malignant neoplasm of sigmoid colon (HCC),Metastasis to bone (HCC) Take 1 Tablet by mouth in the morning and 1 Tablet before bedtime. 60 Tablet 5 Active Trifluridine-Tip iracil 15-6.14 MG Oral Tablet (Lonsurf)Indicat ions:Malignant neoplasm of sigmoid colon (HCC) Take 2 tablets (30 mg) by mouth in the morning and 2 tablets (30 mg) before bedtime on days 1-5 and - of 28-day cycle. Take within 1 hour of meal. 40 Tablet 5 05/03/2024 1:01 PM EST 5 Active Trifluridine-Tip iracil 20-8.19 MG Oral Tablet (Lonsurf)Indicat ions:Malignant neoplasm of sigmoid colon (HCC) Take 1 tablet (20 mg) by mouth in the morning and 1 tablet (20 mg) before bedtime on days 1-5 and 8-12 of 28-day cycle. Take within 1 hour of meal. 20 Tablet 5 05/03/2024 1:01 PM EST 5 Active oxyCODONE HCl 5 MG Oral Tablet (Oxy IR)Indications:M alignant neoplasm of sigmoid colon (HCC),Metastasis to bone (HCC) Take 1 Tablet by mouth every 4 hours as needed for Pain, Moderate. Continued script 60 Tablet 5 Active Ondansetron HCl 8 MG Oral Tablet (Zofran)Indicati ons:Malignant neoplasm of sigmoid colon (HCC) Take 1 Tablet by mouth every 8 hours as needed for Nausea. 30 Tablet 1 5 Active documented as of this encounter (statuses as [...] No 11/25/2022 5:16 PM Nikita Milton RN documented as of this encounter Mental Status * Because of a physical, mental, or emotional condition, do you have serious difficulty concentrating, remembering, or making decisions? (5 years old or older) Answer Entry Date Author No 11/25/2022 5:16 PM Nikita Milton RN documented in this encounter Progress Notes * Clover Richards, [facility] - 05/06/2024 9:30 AM EST MEDICATION THERAPY MANAGEMENT TRIFLURIDINE/TIPRIACIL TREATMENT STATUS NOTE Nyasia Hdez [id number] Patient Phone Numbers Strikingly [phone] Communication: Spoke with Patient Treatment: Medication: Trifluridine/tipiracil (Lonsurf) Indication/Staging/Diagnosis Code: colon cancer / C18.7 Dose Basis: 35mg/m2 (BSA 1.51m2) Dose: 50mg (2-15mg + 1-20 mg tab) BID D1-5 and 8-12 every 28 days Administration: with food Start Date: TBD Primary Manager Utilities/Oncologist: Dr. Kodak Wiley Assessment and Plan: Yes/no Date Action Taken Mobile plan entered? yes 04/19/24 Consent completed? yes 04/18/24 Intro/med rec completed? yes 04/05/24 Precert completed? Yes 04/23/24 Approved Test claim completed? Yes 04/23/24 GSP - $1945.51 copayment Financial assistance needed? Yes 04/30/24 Approved Physician signature? Yes 04/24/24 Rx released? Education completed? Yes 05/06/24 Supportive Care Meds: N/A Prophylactic Meds: Ondansetron Cycle Dates C1 05/07/24-06/03/24 C2 Treatment History: Medication education: Confirmed pt has received information regarding goals and duration of therapy: yes Reviewed dosing and administration: yes Reviewed importance of medication compliance (document recommendations if barriers identified): yes Reviewed appropriate storage conditions: yes Reviewed handling precautions: yes Reviewed handling body fluids and waste: yes Reviewed side effects, monitoring, and supportive care measures: yes Confirmed pt has received written information about drug therapy: yes Changes to medication list since last visit: no Drug interaction assessment: Treatment plan and current medication list evaluated for drug-drug interactions. No clinically significant drug interaction identified Does patient rely on caregiver for medication management? yes Assessment and plan: Pt verbalized understanding to information provided. All questions answered to the patient's satisfaction Pt was educated about role of Oral Chemotherapy Clinic and pharmacist in medication management, andplan for follow up. Follow up: MTM/labs 05/21 Monitoring Parameters: Estimated CrCl Serum creatinine: 0.4 mg/dL (L) 05/06/24 1032 Estimated creatinine clearance: 50.1 mL/min (A) Hepatitis panel Latest Reference Range & Units 12/22/22 14:10 Hepatitis B Surface Antigen Negative Negative Hepatitis B Surface Antibody, Quantitative mIU/mL 42.7 HEPATITIS B SURFACE ANTIBODY Rpt Hepatitis B Surface Antibody, Interpretation Immune to Hepatitis B Virus Hepatitis B Surface Antibody, Qualitative Positive Hepatitis B Core Antibodies IgG and IgM Negative Negative test N/A - postmenopausal Suggested lab monitoring CBCd as indicated, CMP every 3 weeks for first 3 months, then monthly Treatment Parameters LFTs < 5 times ULN Pertinent Labs: Latest Reference Range & Units 04/18/24 14:54 05/06/24 10:32 WBC 4.00 - 10.80 K/uL 9.68 8.27 RBC 3.85 - 5.15 M/uL 3.17 3.41 HGB 12.0 - 15.3 g/dL 10.4 (L) 10.2 (L) HCT 36.0 - 45.2 % 32.3 (L) 33.8 (L) MCV 81.5 - 97.5 fL 101.9 99.1 MCH 27.0 - 34.0 pg 32.8 29.9 MCHC 32.0 - 36.0 g/dL 32.2 30.2 RDW 11.5 - 15.5 % 14.4 15.6 PLT 140 - 400 K/uL 183 184 MPV 6.6 - 11.1 fL 9.6 10.6 CBC WITH WBC DIFFERENTIAL Rpt ! Rpt ! Absolute Neutrophils 1.80 - 7.70 K/uL 7.80 (H) 6.39 Absolute Lymphocytes 1.00 - 4.80 K/ul 1.11 1.25 (L): Data is abnormally low !: Data is abnormal (H): Data is abnormally high Rpt: View report in Results Review for more information Latest Reference Range & Units 04/18/24 14:54 05/06/24 10:32 Albumin 3.8 - 5.0 g/dL 3.5 (L) 3.5 (L) AST 10 - 35 U/L 30 34 ALT 10 - 35 U/L 20 27 Alkaline Phosphatase 35 - 130 U/L 209 (H) 229 (H) Bilirubin, Total <=1.2 mg/dL 0.5 0.5 (L): Data is abnormally low (H): Data is abnormally high Cosigned by Amber Diana [facility] at 05/06/2024 2:15 PM EST documented in this encounter Plan of Treatment Upcoming Encounters Date Type Department Care Team (Late st Contact Info) Description 05/15/2024 10:00 AM EST Office Visit Palliative Medicine [facility] [address] [facility] [place] [address] Bianca Ruiz MD [address] [place] [address] [place] [address] 05/16/2024 9:45 AM EST Pharmacy Pharmacy Hematology Oncology [address] [place] [address] [facility] Hem/Onc [address] [place] [address] 05/20/2024 9:40 AM EST Laboratory Laboratory [facility] [place] [address] [place] [phone] Nasreen, Lab Scenery [address] [place] [address] 05/20/2024 10:15 AM EST Office Visit Hematology/Oncology [facility] [address] [place] [address] Chandni Almonte MD [address] [place] [address] 05/20/2024 10:45 AM EST Hem[facility] [address] [place] [phone] Nasreen, Chair 11 Hem Onc Scen[address] [place] [address] 07/19/2024 11:30 AM EDT Office Visit Cardiology, [facility] [address] [place] [address] Ciro Saini DO [address] [place] [address] 02/03/2025 1:00 PM EDT Office Visit Gynecology/Obstetrics [facility] [address] [place] [address] Nelli Farrell CRNP [address] [place] [address] Health Maintenance Due Date Last Done Comments [...] this encounter Medical Devices Implanted Type Area Ortho/Prosthetic Aide Device Identifier Shelf Expiration Date Model / Serial / Lot Power Port 8fr Sngl Lumen Plas - [id number] Implanted:Qty : 1 on 01/05/2023 by Jai Malcolm Jr., MD at [facility] Right: Chest CR BARD : PERIPHERAL VASCULAR [id number] 07/08/2024 [id number] / / [id number] documented as of this encounter Visit Diagnoses Diagnosis Malignant neoplasm of sigmoid colon (HCC)- Primary Malignant neoplasm of sigmoid colon documented in this encounter Advance Directives * [...] Power of Attor johann? No Care Teams Emergency Room Physician Relationship Specialty Start Date End Date Lina Can MD [address] [place] [address] [place] [address] PCP - General Family Medicine 08/06/22 documented as of this encounter
--- OUTSIDE RECORDS SUMMARY | 2024-05-09 12:11 | External Medical Summary ---
Author Name Unknown Address Unknown Organization K09:[facility] [place] [address] Laboratory Report Ordering Provider Test Date Status DANNIELLE OLVERA 05/06/2024 10:32:39 Final Observation Date Value Abnormality Reference (Units ) Status SYNC LEUKOCYTES IN BLOOD BY AUTOMATED COUNT 05/06/2024 10:32:39 8.27 4.00-10.80 (K/uL) Final Segs 05/06/2024 10:32:39 77.2 Above high normal 40.0-75.0 (%) Final Lymphs % 05/06/2024 10:32:39 15.1 Below low normal 18.0-42.0 (%) Final Monos 05/06/2024 10:32:39 5.7 1.0-11.0 (%) Final Eosinophils 05/06/2024 10:32:39 1.5 0.0-6.0 (%) Final Basos 05/06/2024 10:32:39 0.5 0.0-2.0 (%) Final Absolute Segs 05/06/2024 10:32:39 6.39 1.80-7.70 (K/uL) Final Lymphs, absolute 05/06/2024 10:32:39 1.25 1.00-4.80 (K/ul) Final Monos, Abs 05/06/2024 10:32:39 0.47 0.00-1.10 (K/uL) Final Eos, Abs 05/06/2024 10:32:39 0.12 0.00-0.70 (K/uL) Final Basos, Abs 05/06/2024 10:32:39 0.04 0.00-0.20 (K/uL) Final Performing Location [facility] [place] [address]
--- OUTSIDE RECORDS SUMMARY | 2024-05-09 12:11 | External Medical Summary ---
Author Name Unknown Address Unknown Organization K09:[facility] [place] [address] Laboratory Report Ordering Provider Test Date Status DANNIELLE OLVERA 05/06/2024 10:32:39 Final Observation Date Value Abnormality Reference (Units ) Status Color of Urine by Auto 05/06/2024 10:32:39 Yellow Light Yellow, Yellow, Dark Yellow Final Clarity, Urine 05/06/2024 10:32:39 Slightly Cloudy Abnormal Clear Final Glucose [Mass/volume] in Urine by Automated test strip 05/06/2024 10:32:39 Negative Negative (mg/dL) Final Bilirubin.total [Presence] in Urine by Automated test strip 05/06/2024 10:32:39 Negative Negative Final Ketones [Mass/volume] in Urine by Automated test strip 05/06/2024 10:32:39 Negative Negative (mg/dL) Final Specific gravity, Urine 05/06/2024 10:32:39 1.010 1.003-1.030 Final Hemoglobin [Presence] in Urine by Automated test strip 05/06/2024 10:32:39 Negative Negative Final pH, Urine 05/06/2024 10:32:39 5.5 5.0-7.5 (Units) Final Protein [Mass/volume] in Urine by Automated test strip 05/06/2024 10:32:39 Trace Abnormal Negative (mg/dL) Final Urobilinogen [Mass/volume] in Urine by Automated test strip 05/06/2024 10:32:39 1.0 0.2, 1.0 (mg/dL) Final Nitrite [Presence] in Urine by Automated test strip 05/06/2024 10:32:39 Negative Negative Final Leukocyte esterase [Presence] in Urine by Automated test strip 05/06/2024 10:32:39 Moderate Abnormal Negative Final Performing Location [facility] [place] [address]
--- OUTSIDE RECORDS SUMMARY | 2024-05-09 12:11 | External Medical Summary | Summary of Care ---
Author Name Unknown Organization [facility] Address [address] [place] [address] Phone [phone] Care Team Providers Care Liquefaction Supervisor Name Role Phone Lina Can MD Primary Care Prov ider Reason for Visit * Reason Onset Date Comments Medication Refill 05/06/2024 Encounter Details Date Type Department Care Team (Late st Contact Info) Description 05/06/2024 Refill Pharmacy Hematology Oncology [facility] [address], [place] [id number] [place], [facility] [address] [place] [address] Malignant neoplasm of sigmoid colon (HCC) Allergies [...] as needed for Nausea. 30 Tablet 1 05/06/19 25 Active Ondansetron HCl 8 MG Oral [...] 11/25/2022 5:16 PM EDT Nikita Ramirez RN * Are you blind or do you have serious difficulty seeing, even when wearing glasses? Answer Date of Assessment Author No 11/25/2022 5:16 PM EDT Nikita Ramirez RN * Do you have serious difficulty walking or climbing stairs? (5 years old or older) Answer Date of Assessment Author No 11/25/2022 5:16 PM Nikita Milton RN * Do you have difficulty dressing or bathing? (5 years old or older) Answer Date of Assessment Author No 11/25/2022 5:16 PM EDNikita Mccormack RN * Because of a physical, mental, or emotional condition, do you have difficulty doing errands alone such as visiting a doctors office or shopping? (15 years old or older) Answer Date of Assessment Author No 11/25/2022 5:16 PM COOPERT Nikita Ramirez RN documented as of this encounter Mental Status * Because of a physical, mental, or emotional condition, do you have serious difficulty concentrating, remembering, or making decisions? (5 years old or older) Answer Entry Date Author No 11/25/2022 5:16 PM Nikita Milton RN documented in this encounter Plan of Treatment Upcoming Encounters Date Type Department Care Team (Late st Contact Info) Description 05/15/2024 10:00 AM EST Office Visit Palliative Medicine [facility] [address] [place] [address] Bianca Ruiz MD [address] [place], [place] [address] [address] 05/16/2024 9:45 AM EST Pharmacy Pharmacy Hematology Oncology [address] [place] [phone] [facility], [facility] Hem/Onc [address] [facility], [place] [address] 05/20/2024 9:40 AM EST Laboratory Laboratory [facility] [place] [address] [place] [phone] Nasreen, Lab Scenery [address] [facility] [place] [address] 05/20/2024 10:15 AM EST Office Visit Hematology/Oncology [facility] [place] [address] [place] [phone] Chandni Almonte MD [address] [place] [address] 05/20/2024 10:45 AM EST Hem[facility] [address] [place] [phone] Nasreen, Chair 11 Hem Onc Scenery [address] [place] [address] 07/19/2024 11:30 AM EDT Office Visit Cardiology, [facility] [address] [place] [address] Ciro Saini, [address] [place] [address] 02/03/2025 1:00 PM EDT Office Visit Gynecology/Obstetrics [facility] [address] [place] [address] Nelli Farrell CRNP [address] [place] [phone] Health Maintenance Due Date Last Done Comments [...] this encounter Medical Devices Implanted Type Area Brim Setter Device Identifier Shelf Expiration Date Model / Serial / Lot Power Port 8fr Sngl Lumen Plas - [id number] Implanted:Qty : 1 on 01/05/2023 by Jai Malcolm Jr., MD at [facility] Right: Chest CR BARD : PERIPHERAL VASCULAR [id number] 07/08/2024 [id number] / / [id number] documented as of this encounter Visit Diagnoses Diagnosis Malignant neoplasm of sigmoid colon (HCC) Malignant [...] Power of Attor johann? No Care Teams Liquefaction Supervisor Relationship Specialty Start Date End Date Lina Can MD [address] [place] [address] [place] [address] PCP - General Family Medicine 08/06/22 documented as of this encounter
--- OUTSIDE RECORDS SUMMARY | 2024-05-09 12:11 | External Medical Summary ---
Author Name Unknown Address Unknown Organization K09:[facility] [place] [address] Laboratory Report Ordering Provider Test Date Status DANNIELLE OLVERA 05/06/2024 10:32:39 Final Observation Date Value Abnormality Reference (Units ) Status Phosphate 05/06/2024 10:32:39 2.4 Below low normal 2.5 -4.8 (mg/dL) Final Performing Location [facility] [place] [address]
--- OUTSIDE RECORDS SUMMARY | 2024-05-09 12:11 | External Medical Summary | Summary of Care ---
Author Name Unknown Organization [facility] Address [address] [place] [address] Phone [phone] Care Team Providers Care Spreader Operator Automatic Name Role Phone Lina Can MD Primary Care Prov ider Reason for Visit * Reason Comments Outpatient Testing Encounter Details Date Type Department Care Team (Late st Contact Info) Description 05/06/2024 10:30 AM EST Laboratory Laboratory [facility] [place] [address] [place] [address] [facility] Lab Scenery [address] [place] [address] Malignant neoplasm of sigmoid colon (HCC); Metastasis to bone (HCC) Allergies Active Allergy Reactions Criticality Noted [...] Greater than ) or Pain, Moderate. Active Ondansetron HCl 8 MG Oral Tablet (Zofran)Indicati ons:Malignant neoplasm of sigmoid colon (HCC) Take 1 Tablet by mouth every 8 hours as needed for Nausea. 30 Tablet 1 4 Active Prochlorperazine Maleate 10 MG Oral Tablet [...] 20 Tablet 5 05/03/2024 1:01 PM EST Active oxyCODONE HCl 5 MG Oral Tablet (Oxy IR)Indications:M alignant neoplasm of sigmoid colon (HCC),Metastasis to bone (HCC) Take 1 Tablet by mouth every 4 hours as needed for Pain, Moderate. Continued script 60 Tablet 5 Active documented as of this encounter [...] Team (Late st Contact Info) Description 05/06/2024 11:30 AM EST Hem/Onc Treatment Hematology/Oncology [address]IV[address] [phone] Nasreen, Chair 1 Hem Onc [place] [address] [address] [place] [address] Arrived 05/14/2024 9:00 AM EST Office Visit Hematology/Oncology [facility] [place] [address] [address] [place] [phone] Chandni Almonte MD [address] [facility] [place] [address] 05/15/2024 10:00 AM EST Office Visit Palliative Medicine [facility] [address] [place] [address] Bianca Ruiz MD [address] [place] [address] [place] [address] 07/19/2024 11:30 AM EDT Office Visit Cardiology, [facility] [address] [facility] [place] [address] Ciro Saini DO [address] [place] [address] 02/03/2025 1:00 PM EDT Office Visit Gynecology/Obstetrics [facility] [address] [place] [address] Nelli Farrell CRNP [address] [place] [address] Pending Results Name Type Priority Associated Diagnoses Date /Time MAGNESIUM Lab STAT Malignant neoplasm of sigmoid colon (HCC) Metastasis to bone (HCC) 05/06/2024 10:32 AM EST COMPREHENSIVE METABOLIC PANEL Lab STAT Malignant neoplasm of sigmoid colon (HCC) Metastasis to bone (HCC) 05/06/2024 10:32 AM EST URINALYSIS, REFLEX TO MICROSCOPIC Lab STAT Malignant neoplasm of sigmoid colon (HCC) Metastasis to bone (HCC) 05/06/2024 10:32 AM EST PHOSPHORUS Lab STAT Malignant neoplasm of sigmoid colon (HCC) 05/06/2024 10:32 AM EST Health Maintenance Due Date Last Done Comments [...] this encounter Medical Devices Implanted Type Area Yam Curer Device Identifier Shelf Expiration Date Model / Serial / Lot Power Port 8fr Sngl Lumen Plas - [id number] Implanted:Qty : 1 on 01/05/2023 by Jai Malcolm Jr., MD at [facility] Right: Chest CR BARD : PERIPHERAL VASCULAR [id number] 07/08/2024 [id number] / / [id number] documented as of this encounter Procedures Procedure Name Priority Date/Time Associated Diagnosis Comments DIFFERENTIAL, AUTOMATED STAT 05/06/2024 10:32 AM EST Malignant neoplasm of sigmoid colon (HCC) Metastasis to bone (HCC) CBC STAT 05/06/2024 10:32 AM EST Malignant neoplasm of sigmoid colon (HCC) Metastasis to bone (HCC) CBC STAT 05/06/2024 10:32 AM EST Malignant neoplasm of sigmoid colon (HCC) Metastasis to bone (HCC) documented in this encounter Results * (ABNORMAL) DIFFERENTIAL, AUTOMATED (05/06/2024 10:32 AM EST) WBC 8.27 4.00 - 10.80 K/uL 05/06/2024 10:43 AM EST [facility] [place] 56-02 Neutrophils % 77.2(H) 40.0 - 75.0 % 05/06/2024 10:43 AM EST [facility] 56-02 Lymphocytes % 15.1(L) 18.0 - 42.0 % 05/06/2024 10:43 AM [facility] 56- Monocytes % 5.7 1.0 - 11.0 % 05/06/2024 10:43 AM [facility] 56-02 Eosinophils % 1.5 0.0 - 6.0 % 05/06/2024 10:43 AM [facility] 56- Basophils % 0.5 0.0 - 2.0 % 05/06/2024 10:43 AM [facility] 56- Absolute Neutrophils 6.39 1.80 - 7.70 K/uL 05/06/2024 10:43 AM [facility] 56- Absolute Lymphocytes 1.25 1.00 - 4.80 K/ul 05/06/2024 10:43 AM [facility] 56- Absolute Monocytes 0.47 0.00 - 1.10 K/uL 05/06/2024 10:43 AM [facility] 56- Absolute Eosinophils 0.12 0.00 - 0.70 K/uL 05/06/2024 10:43 AM [facility] 56- Absolute Basophils 0.04 0.00 - 0.20 K/uL 05/06/2024 10:43 AM [facility] 56- Blood Venous blood specimen / Unknown Venipuncture / Unknown 05/06/2024 10:32 AM EST 05/06/2024 10:32 AM EST us Chandni Almonte MD LAB BLOOD ORDERABLES Fin al Result [facility] [address]- [address] [place] [address] * (ABNORMAL) CBC (05/06/2024 10:32 AM EST) WBC 8.27 4.00 - 10.80 K/uL 05/06/2024 10:43 AM [facility] 56- RBC 3.41 3.85 - 5.15 M/uL 05/06/2024 10:43 AM [facility] 56- HGB 10.2(L) 12.0 - 15.3 g/dL 05/06/2024 10:43 AM [facility] 56- HCT 33.8(L) 36.0 - 45.2 % 05/06/2024 10:43 AM [facility] 56 MCV 99.1 81.5 - 97.5 fL 05/06/2024 10:43 AM [facility] 56- MCH 29.9 27.0 - 34.0 pg 05/06/2024 10:43 AM [facility] 56 MCHC 30.2 32.0 - 36.0 g/dL 05/06/2024 10:43 AM [facility] 56 RDW 15.6 11.5 - 15.5 % 05/06/2024 10:43 AM [facility] 56- PLT 184 140 - 400 K/uL 05/06/2024 10:[address] MPV 10.6 6.6 - 11.1 fL 05/06/2024 10:43 AM [facility] 56 Blood Venous blood specimen / Unknown Venipuncture / Unknown 05/06/2024 10:32 AM EST 05/06/2024 10:32 AM EST Chandni Almonte MD LAB BLOOD ORDERABLES Fin al Result Performing Organization Address City/State/[facility] Co de Phone Number [address] [place] [address] documented in this encounter Visit Diagnoses Diagnosis Malignant neoplasm of sigmoid colon (HCC) Malignant neoplasm of sigmoid colon Metastasis to bone (HCC) Secondary malignant neoplasm of bone and bone marrow documented in this encounter Advance Directives * [...] Power of Attor johann? No Care Teams Spreader Operator Automatic Relationship Specialty Start Date End Date Lina Can MD [address] [place] [address] [place] [address] PCP - General Family Medicine 08/06/22 documented as of this encounter
--- OUTSIDE RECORDS SUMMARY | 2024-05-09 12:12 | External Medical Summary | Summary of Care ---
Author Name Unknown Organization [facility] Address [address] [place] [address] Phone [phone] Care Team Providers Care Health Policy Nurse Name Role Phone Lina Can MD Primary Care Prov ider Reason for Visit * Reason Onset Date Comments On-Call 04/29/2024 Encounter Details Date Type Department Care Team (Late st Contact Info) Description 04/29/2024 Telephone [facility] [address] [facility] [phone] Claudia Gomez, PA-C [address] [facility] [place], [place] [phone] On-Call Allergies Active Allergy Reactions Criticality Noted Date Comments Amoxicillin-Pot Clavulanate Nausea/vomiting 07/12/2022 GI upset Doxycycline Nausea/vomiting 07/12/2022 GI upset Oxaliplatin Flushing High 07/27/2023 Shortness of breath Metoclopramide Hives 08/10/2022 documented as of this encounter (statuses as of 04/29/2024) Medications Acetaminophen 500 MG Oral Tablet (Tylenol [...] Active Additional Information Patient not taking.Reported on 04/05/2024 traMADol HCl 50 MG Oral Tablet (Ultram)Indicati [...] of sigmoid colon (HCC) Take 2 tablets (30mg) by mouth in the morning and 2 tablets (30mg) before bedtime. Take within 1 hour of meal. On days 1-5 and - of 28 day cycle. 40 Tablet 5 5 Active Trifluridine-Tip iracil 20-8.19 MG Oral Tablet (Lonsurf)Indicat ions:Malignant neoplasm of sigmoid colon (HCC) Take 1 tablet (20mg) by mouth in the morning and 1 tablet (20mg) before bedtime. Take within 1 hour of meal. On days 1-5 and -12 of 28 day cycle. 20 Tablet 5 5 Active oxyCODONE HCl 5 MG Oral Tablet (Oxy IR)Indications:M alignant neoplasm of sigmoid colon (HCC),Metastasis to bone (HCC) Take 1 Tablet by mouth every 4 hours as needed for Pain, Moderate. Continued script 60 Tablet Active documented as of this encounter (statuses as of 04/29/2024) Active Problems Problem Noted Date Diagnosed Date [...] as of this encounter (statuses as of 04/29/2024) Immunizations No known immunizationsdocumented as of this [...] Nikita Milton RN documented in this encounter Miscellaneous Notes * Telephone Encounter - Claudia Gomez PA-C - 04/29/2024 8:36 PM EST Patient called in to triage line after hours with question about pain meds. I called her back, and she was wondering if she could take Tylenol with her MS Contin. I informed her that she can. She told us she will follow up with any other questions. documented in this encounter Plan of Treatment Upcoming Encounters Date Type Department Care Team (Late st Contact Info) Description 05/06/2024 10:30 AM EST Laboratory [facility] [address] [place] [address] Terrance [place]ney Scene [address] [place] [address] 05/06/2024 11:30 AM EST [facility] 200 [place] [phone] Nasreen, Chair 1 Hem Onc [address] [place] [address] 05/14/2024 9:00 AM EST Office Visit Hematology/Oncology [facility] 200 [facility] [place] [phone] Chandni Almonte MD 200 [place] [address] 05/15/2024 10:00 AM EST Office Visit Palliative Medicine [address] [place] [phone] Bianca Ruiz MD [address] [place] [address] 07/19/2024 11:30 AM EDT Office Visit Cardiology, [facility] [address] [place] [address] Ciro Saini, [address] [place] [address] 02/03/2025 1:00 PM EDT Office Visit Gynecology/Obstetrics [facility] [address] [facility] [address] Nelli Farrell CRNP [address] [place] [address] Health Maintenance Due Date Last Done Comments [...] this encounter Medical Devices Implanted Type Area Sheet Metal Former Device Identifier Shelf Expiration Date Model / Serial / Lot Power Port 8fr Sngl Lumen Plas - [id number] Implanted:Qty : 1 on 01/05/2023 by Jai Malcolm Jr., MD at [facility] Right: Chest CR BARD : PERIPHERAL VASCULAR [id number] 07/08/2024 [id number] / / [id number] documented as of this encounter Advance Directives [...] Power of Attor johann? No Care Teams Health Policy Nurse Relationship Specialty Start Date End Date Lina Can MD [address] [place] [address] [place] [phone] PCP - General Family Medicine 08/06/22 documented as of this encounter
--- OUTSIDE RECORDS SUMMARY | 2024-05-09 12:12 | External Medical Summary | Summary of Care ---
Author Name Unknown Organization [facility] Address [address] [place] [address] Phone [phone] Care Team Providers Care Driller Brake Lining Name Role Phone Lina Can MD Primary Care Prov ider Reason for Visit * Reason Onset Date Comments Medication Refill 04/29/2024 Encounter Details Date Type Department Care Team (Late st Contact Info) Description 04/29/2024 9:30 AM EST Scheduled Telephone Palliative Medicine, [address] 5[address] Floor [place], [place] [phone] Pr, Nurse Palliative Medicine [address] [phone] Malignant neoplasm of sigmoid colon (HCC); Metastasis [...] Nausea. 30 Tablet 1 12/18/19 24 Active Prochlorperazine Maleate 10 MG Oral Tablet [...] hour of meal. On days 1-5 and 8-12 of 28 day cycle. 40 Tablet 5 04/24/19 25 Active Trifluridine-Tip iracil 20-8.19 MG Oral Tablet (Lonsurf)Indicat ions:Malignant neoplasm of sigmoid colon (HCC) Take 1 tablet (20mg) by mouth in the morning and 1 tablet (20mg) before bedtime. Take within 1 hour of meal. On days 1-5 and 8-12 of 28 day cycle. 20 Tablet 5 04/24/19 25 Active oxyCODONE HCl 5 MG Oral Tablet (Oxy IR)Indications:M alignant neoplasm of sigmoid colon (HCC),Metastasis to bone (HCC) Take 1 Tablet by mouth every 4 hours as needed for Pain, Moderate. Continued script 60 Tablet 04/29/19 25 Active oxyCODONE HCl 5 MG Oral [...] 11/25/2022 5:16 PM COOPERT Nikita Ramirez RN * Because of a physical, mental, or emotional condition, do you have difficulty doing errands alone such as visiting a doctors office or shopping? (15 years old or older) Answer Date of Assessment Author No 11/25/2022 5:16 PM COOPERT Shae Ramirez RN documented as of this encounter Mental Status * Because of a physical, mental, or emotional condition, do you have serious difficulty concentrating, remembering, or making decisions? (5 years old or older) Answer Entry Date Author No 11/25/2022 5:16 PM Nikita Milton RN documented in this encounter Miscellaneous Notes * Telephone Encounter - Claudia Spivey PA-C - 04/29/2024 1:38 PM ESTSigned Prescriptions: Disp Refills oxyCODONE HCl 5 MG Oral Tablet (Oxy IR) 60 Tab*0 Sig: Take 1 Tablet by mouth every 4 hours as needed for Pain, Moderate. Continued scriptAuthorizing Provider: CLUADIA SPIVEY * Telephone Encounter - Claudia Spivey PA-C - 04/29/2024 1:38 PM EST I have reviewed the patient's controlled substance dispensing history in the Prescription Drug Monitoring Program in compliance with the [place] regulations before prescribing a controlled substance. Refill sent * Telephone Encounter - Caridad Villalpando LPN - 04/29/2024 11:57 AM EST Palliative f/u phone call Spoke with patient Doing well on the MS Contin Rarely needing the oxycodone since starting it Was using the oxycodone frequently before the MS Contin was started, so is requesting a refill I have reviewed the patients controlled substance dispensing history in the Prescription Drug Monitoring Program in compliance with the [place] regulations before prescribing a controlled substance. Were any discrepancies found:no Last prescribed 6 Last Filled /6 RX Due 04/25 Scheduled in person visit on 05/[address] Ruiz at [facility] Aware to call sooner with any needs documented in this encounter Plan of Treatment Upcoming Encounters Date Type Department Care Team (Late st Contact Info) Description 05/06/2024 10:30 AM EST Laboratory Laboratory [facility] [address] [place] [phone] Nasreen Lab [address] [facility] [place] [address] 05/06/2024 11:30 AM EST Hem/Onc Treatment Hematology/Oncology Treatment, [place] [address] [place] [phone] Nasreen, Chair 1 Hem Onc [address] [place] [address] 05/14/2024 9:00 AM EST Office Visit Hematology/Oncology [facility] 200 [facility] [place] [phone] Chandni Almonte MD 200 [place] [address] 05/15/2024 10:00 AM EST Office Visit Palliative Medicine [facility] [address] [facility] [address] [place], [place] [phone] Bianca Ruiz MD 400 [facility] [place] [address] 07/19/2024 11:30 AM EDT Office Visit Cardiology, [facility] [address] [facility] [place] [address] Ciro Saini DO [address] [place] [address] 02/03/2025 1:00 PM EDT Office Visit Gynecology/Obstetrics [facility] [address] [facility] [facility] [place] [address] Nelli Farrell CRNP [address] [place] [address] Health Maintenance Due Date Last Done Comments [...] this encounter Medical Devices Implanted Type Area Emissions Testing And Repair Technician Device Identifier Shelf Expiration Date Model / Serial / Lot Power Port 8fr Sngl Lumen Plas - [id number] Implanted:Qty : 1 on 01/05/2023 by Jai Malcolm Jr., MD at [facility] Right: Chest CR BARD : PERIPHERAL VASCULAR [id number] 07/08/2024 [id number] / / [id number] documented as of this encounter Visit Diagnoses [...] Power of Attor johann? No Care Teams Driller Brake Lining Relationship Specialty Start Date End Date Lina Can MD [address] [place] [address] [place] [address] PCP - General Family Medicine 08/06/22 documented as of this encounter
--- OUTSIDE RECORDS SUMMARY | 2024-05-09 12:12 | External Medical Summary | Summary of Care ---
Author Name Unknown Organization [facility] Address [address] [place] [address] Phone [phone] Care Team Providers Care Barn Hand Name Role Phone Lina Can MD Primary Care Prov ider Reason for Visit * Reason Onset Date Comments Precert Future 04/18/2024 annel Wan Encounter Details Date Type Department Care Team (Late st Contact Info) Description 04/18/2024 Telephone Hematology/Oncology Treatment, [place] [address] [place] [address] Chandni Almonte MD [address] [place] [address] Precert Future (annel Wan) Allergies Active Allergy Reactions Criticality Noted Date Comments Amoxicillin-Pot Clavulanate Nausea/vomiting 07/12/2022 GI upset Doxycycline Nausea/vomiting 07/12/2022 GI upset Oxaliplatin Flushing High 07/27/2023 Shortness of breath Metoclopramide Hives 08/10/2022 documented as of this encounter (statuses as of 05/02/2024) Medications Acetaminophen 500 MG Oral Tablet (Tylenol [...] Pain, Moderate. 30 Tablet 04/11/19 25 Active oxyCODONE HCl 5 MG Oral Tablet (Oxy IR)Indications:M alignant neoplasm of sigmoid colon (HCC),Metastasis to bone (HCC) Take 1 Tablet by mouth every 4 hours as needed for Pain, Moderate. 60 Tablet 04/15/19 25 025 Discontin ued(Refil l) documented as of this encounter (statuses as of 05/02/2024) Active Problems Problem Noted Date Diagnosed Date [...] as of this encounter (statuses as of 05/02/2024) Immunizations No known immunizationsdocumented as of this [...] entered for lonsurf, can be filled at [facility]. MyG sent. * Telephone Encounter - Glo Drake OSA - 04/19/2024 8:21 AM EST Updated appts * Telephone Encounter - Tereza Gray RN - 04/19/2024 7:37 AM EST Zirabev referral entered. Waiting for lonsurf. * Telephone Encounter - Tereza Gray RN - 04/18/2024 3:47 PM EST Order received for annel wan. [place] plan built. Waiting for auth. Consent signed [...] Care Team (Late st Contact Info) Description 05/02/2024 1:45 PM EST Pharmacy Pharmacy Hematology Oncology [address] [address] [facility] [place] Hem/Onc [facility] [place] [address] 05/06/2024 10:30 AM EST Laboratory Laboratory [facility] [place] [address] [place] [phone] Nasreen, Lab Scenery [address] [facility] [place] [address] 05/06/2024 11:30 AM EST Hem/Onc Treatment Hematology/Oncology Treatment, [place] [address] [place] [phone] Nasreen, Chair 1 Hem Onc Scen[place] [address] [place] [address] 05/14/2024 9:00 AM EST Office Visit Hematology/Oncology [facility] 200 [facility] [place] [phone] Chandni Almonte MD 200 [place] [address] 05/15/2024 10:00 AM EST Office Visit Palliative Medicine [facility] [address] [place], [place] [phone] Bianca Ruiz MD 400 [facility] [place] [address] 07/19/2024 11:30 AM EDT Office Visit Cardiology, [facility] [address] [facility] [place] [address] Ciro Saini DO [address] [place] [address] 02/03/2025 1:00 PM EDT Office Visit Gynecology/Obstetrics [facility] [address] [facility] [place] [address] Nelli Farrell CRNP [address] [place] [address] Health Maintenance Due Date Last Done Comments [...] this encounter Medical Devices Implanted Type Area Traffic Chief Device Identifier Shelf Expiration Date Model / Serial / Lot Power Port 8fr Sngl Lumen Plas - [id number] Implanted:Qty : 1 on 01/05/2023 by Jai Malcolm Jr., MD at [facility] Right: Chest CR BARD : PERIPHERAL VASCULAR [id number] 07/08/2024 [id number] / / [id number] documented as of this encounter Advance Directives [...] Power of Attor johann? No Care Teams Barn Hand Relationship Specialty Start Date End Date Lina Can MD [address] [place] [address] [place] [phone] PCP - General Family Medicine 08/06/22 documented as of this encounter
--- OUTSIDE RECORDS SUMMARY | 2024-05-09 12:12 | External Medical Summary | Summary of Care ---
Author Name Unknown Organization [facility] Address [address] [place] [address] Phone [phone] Care Team Providers Care Electric Screw Driver Operator Name Role Phone Lina Can MD Primary Care Prov ider Reason for Visit * Reason Onset Date Comments Precert Future 04/18/2024 annel Wan Encounter Details Date Type Department Care Team (Late st Contact Info) Description 04/18/2024 Telephone Hematology/Oncology Treatment, [place] [address] [place] [address] Chandni Almonte MD [address] [place] [address] Precert Future (annel Wan) Allergies Active Allergy Reactions Criticality Noted Date Comments Amoxicillin-Pot Clavulanate Nausea/vomiting 07/12/2022 GI upset Doxycycline Nausea/vomiting 07/12/2022 GI upset Oxaliplatin Flushing High 07/27/2023 Shortness of breath Metoclopramide Hives 08/10/2022 documented as of this encounter (statuses as of 04/30/2024) Medications Acetaminophen 500 MG Oral Tablet (Tylenol [...] as of this encounter (statuses as of 04/30/2024) Active Problems Problem Noted Date Diagnosed Date [...] as of this encounter (statuses as of 04/30/2024) Immunizations No known immunizationsdocumented as of this [...] entered for lonsurf, can be [facility] at [facility]. G sent. * Telephone Encounter - Glo Drake OSA - 04/19/2024 8:21 AM EST Updated appts * Telephone Encounter - Tereza Gray RN - 04/19/2024 7:37 AM EST Zirabev referral entered. Waiting for lonsurf. * Telephone Encounter - Tereza Gray RN - 04/18/2024 3:47 PM EST Order received for annel wan. [place] plan built. Waiting for auth. Consent signed [...] 1:45 PM EST Pharmacy Pharmacy Hematology Oncology [address] [address] [facility] [place] Hem/Onc [address] [place] [address] 05/06/2024 10:30 AM EST Laboratory Laboratory [facility] [address] [place] [phone] Nasreen, Lab Scenery 05/06/2024 11:30 AM EST Hem/Onc Treatment Hematology/Oncology [address], [address] [phone] Nasreen, Chair 1 Hem Onc [address] [place] [address] 05/14/2024 9:00 AM EST Office Visit Hematology/Oncology [facility] [place] [address] [place] [address] Chandni Almonte MD 200 [facility] [place] [address] 05/15/2024 10:00 AM EST Office Visit Palliative Medicine [facility] [place] [address] [address] Bianca Ruiz MD [address] [place] [address] 07/19/2024 11:30 AM EDT Office Visit Cardiology, [facility] [address] [place] [address] Ciro Saini DO [address] [place] [address] 02/03/2025 1:00 PM EDT Office Visit Gynecology/Obstetrics [facility] [address] [place] [address] Nelli Farrell CRNP [address] [place] [address] Health Maintenance Due Date Last Done Comments [...] this encounter Medical Devices Implanted Type Area Line Patrolman Device Identifier Shelf Expiration Date Model / Serial / Lot Power Port 8fr Sngl Lumen Plas - [id number] Implanted:Qty : 1 on 01/05/2023 by Jai Malcolm Jr., MD at [facility] Right: Chest CR BARD : PERIPHERAL VASCULAR [id number] 07/08/2024 [id number] / / [id number] documented as of this encounter Advance Directives [...] Power of Attor johann? No Care Teams Electric Screw Driver Operator Relationship Specialty Start Date End Date Lina Can MD [address] [place] [address] [place] [address] PCP - General Family Medicine 08/06/22 documented as of this encounter
--- OUTSIDE RECORDS SUMMARY | 2024-05-09 12:12 | External Medical Summary | Summary of Care ---
Author Name Unknown Organization [facility] Address [address] [place] [address] Phone [phone] Care Team Providers Care Timers Inspector Name Role Phone Lina Can MD Primary Care Prov ider Reason for Visit * Reason Onset Date Comments Precert Future 04/18/2024 annel Wan Encounter Details Date Type Department Care Team (Late st Contact Info) Description 04/18/2024 Telephone Hematology/Oncology Treatment, [place] [address] [place] [address] Chandni Almonte MD [address] [place] [address] Precert Future (annel Wan) Allergies Active Allergy [...] entered for lonsurf, [facility] be [facility] at [facility]. MyG sent. * Telephone Encounter - Glo Drake OSA - 04/19/2024 8:21 AM EST Updated appts * Telephone Encounter - Tereza Gray RN - 04/19/2024 7:37 AM EST Zirabev referral entered. Waiting for lonsurf. * Telephone Encounter - Tereza Gray RN - 04/18/2024 3:47 PM EST Order received for annel wan. [place] plan built. Waiting for auth. Consent signed [...] 1:45 PM EST Pharmacy Pharmacy Hematology Oncology [address] [address] [facility] [place] Hem/Onc [facility] [place] [address] 05/06/2024 10:30 AM EST Laboratory Laboratory [facility] [place] [address] [place] [phone] Nasreen, Lab Scenery [address] [facility] [place] [address] 05/06/2024 11:30 AM EST Hem/Onc Treatment Hematology/Oncology Treatment, [place] [address] [place] [phone] Nasreen, Chair 1 Hem Onc Scenery [address] [place] [address] 05/14/2024 9:00 AM EST Office Visit Hematology/Oncology [facility] [address] [facility] [place] [phone] Chandni Almonte MD 200 [facility] [place] [address] 05/15/2024 10:00 AM EST Office Visit Palliative Medicine [facility] [address] [facility] [address] [place], [place] [phone] Bianca Ruiz MD 400 [place] [address] 07/19/2024 11:30 AM EDT Office Visit Cardiology, [place] [facility] [address] [facility] [place] [address] Ciro Saini DO [address] [place] [address] 02/03/2025 1:00 PM EDT Office Visit Gynecology/Obstetrics [facility] [address] [facility] [place] [address] Nelli Farrell CRNP [address] [place] [address] Health Maintenance Due Date Last Done Comments [...] this encounter Medical Devices Implanted Type Area Technical Assistance Consultant Device Identifier Shelf Expiration Date Model / Serial / Lot Power Port 8fr Sngl Lumen Plas - [id number] Implanted:Qty : 1 on 01/05/2023 by Jai Malcolm Jr., MD at [facility] Right: Chest CR BARD : PERIPHERAL VASCULAR [id number] 07/08/2024 [id number] / / [id number] documented as of this encounter Advance Directives [...] Power of Attor johann? No Care Teams Timers Inspector Relationship Specialty Start Date End Date Lina Can MD [address] [place] [address] [place] [phone] PCP - General Family Medicine 08/06/22 documented as of this encounter
--- OUTSIDE RECORDS SUMMARY | 2024-05-09 12:12 | External Medical Summary | Summary of Care ---
Author Name Unknown Organization [facility] Address [address] [place] [address] Phone [phone] Care Team Providers Care Advanced Quality Engineer Name Role Phone Lina Can MD Primary Care Prov ider Reason for Visit * Reason Onset Date Comments Precert Future 04/18/2024 annel Wan Encounter Details Date Type Department Care Team (Late st Contact Info) Description 04/18/2024 Telephone Hematology/Oncology Treatment, [place] [address] [place] [address] Chandni Almonte MD [address] [place] [address] Precert Future (annel Wan) Allergies Active Allergy [...] for Pain, Moderate. 30 Tablet 5 Active oxyCODONE HCl 5 MG Oral Tablet (Oxy IR)Indications:M alignant neoplasm of sigmoid colon (HCC),Metastasis to bone (HCC) Take 1 Tablet by mouth every 4 hours as needed for Pain, Moderate. 60 Tablet 5 Active documented as of [...] 5:16 PM COOPERT Nikita Ramirez RN * Are you blind [...] Date Author No 11/25/2022 5:16 PM EDT Niikta Ramirez RN documented in this encounter Miscellaneous Notes * Telephone Encounter - Tereza Gray RN - 04/29/2024 7:41 AM EST Copay assistance still in process. * Telephone Encounter - Tereza Gray RN - 04/23/2024 10:27 AM EST Referral entered for lonsurf, can be filled at [facility]. MyG sent. * Telephone Encounter - Glo Drake OSA - 04/19/2024 8:21 AM EST Updated appts * Telephone Encounter - Tereza Gray RN - 04/19/2024 7:37 AM EST Zirabev referral entered. Waiting for lonsurf. * Telephone Encounter - Tereza Gray RN - 04/18/2024 3:47 PM EST Order received for zirabev, lonsurf. [place] plan built. Waiting for auth. Consent signed 04/18/24. Patient is scheduled for treatment 04/22- will change this to zirabev. Labs today- patient aware she needs to drop off urine specimen. Scheduling: please change appts 04/22 - change lab appt to 1pm "urine" - change treatment at 1:15 to 2 hour appt "C1D1 zirabev- use labs from 1/9/25" Precert: can you please update referral for zirabev? This was approved until previous beacon plan. Thanks! documented in this encounter Plan of Treatment Upcoming Encounters Date Type Department Care Team (Late st Contact Info) Description 04/29/2024 9:30 AM EST Scheduled Telephone Palliative Medicine, [address] [place] [address] Fl, Nurse Palliative Medicine [address] [address] Arrived 04/29/2024 1:45 PM EST Pharmacy Pharmacy Hematology Oncology [address] [address] [facility] [place] [place] [facility] [place] [facility] [place] [address] 05/06/2024 10:30 AM EST Laboratory Laboratory [facility] Nas[place] [address] [place] [phone] Nasreen, Lab Scenery 200 [facility] [place] [address] 05/06/2024 11:30 AM EST Hem/Onc Treatment Hematology/Oncology Treatment, [place] [address] [place] [phone] Nasreen, Chair [address] [facility] 200 [facility] [place] [address] 05/14/2024 9:00 AM EST Office Visit Hematology/Oncology [facility] Nasreen [place] [address] [place] [phone] Chandni Almonte MD [address] [place] [address] 07/19/2024 11:30 AM EDT Office Visit Cardiology, [facility] [address] [place] [address] Ciro Saini DO [address] [place] [address] 02/03/2025 1:00 PM EDT Office Visit Gynecology/Obstetric s [facility] [address] [place] [address] [place], SANDRA Murillo [address] [place] [address] Health Maintenance Due Date Last Done Comments [...] this encounter Medical Devices Implanted Type Area Business Analyst Intern Device Identifier Shelf Expiration Date Model / Serial / Lot Power Port 8fr Sngl Lumen Plas - [id number] Implanted:Qty : 1 on 01/05/2023 by Jai Malcolm Jr., MD at [facility] Right: Chest CR BARD : PERIPHERAL VASCULAR [id number] 07/08/2024 [id number] / / [id number] documented as of this encounter Advance Directives [...] Power of Attor johann? No Care Teams Advanced Quality Engineer Relationship Specialty Start Date End Date Lina Can MD [address] [place] [address] [place] [address] PCP - General Family Medicine 08/06/22 documented as of this encounter
--- OUTSIDE RECORDS SUMMARY | 2024-05-09 12:12 | External Medical Summary | Summary of Care ---
Author Name Unknown Organization [facility] Address [address] [place] [address] Phone [phone] Care Team Providers Care Anchor Tacker Name Role Phone Lina Can MD Primary Care Prov ider Reason for Visit * Reason Onset Date Comments Precert Future 04/18/2024 annel Wan Encounter Details Date Type Department Care Team (Late st Contact Info) Description 04/18/2024 Telephone Hematology/Oncology Treatment, [place] [address] [place] [address] Chandni Almonte MD [address] [place] [address] Precert Future (annel Wan) Allergies Active Allergy [...] entered for lonsurf, can be filled at [facility]. MyG sent. * Telephone Encounter - Glo Drake OSA - 04/19/2024 8:21 AM EST Updated appts * Telephone Encounter - Tereza Gray RN - 04/19/2024 7:37 AM EST Zirabev referral entered. Waiting for lonsurf. * Telephone Encounter - Tereza Gray RN - 04/18/2024 3:47 PM EST Order received for anenl wan. [place] plan built. Waiting for auth. Consent signed [...] 1:45 PM EST Pharmacy Pharmacy Hematology Oncology [address] [address] [facility] Hem[facility]Onc [facility] [place] [address] 05/06/2024 10:30 AM EST Laboratory Laboratory [facility] [place] [address] [place] [phone] Nasreen, Lab Scenery [address] [facility] [place] [address] 05/06/2024 11:30 AM EST Hem/Onc Treatment Hematology/Oncology Treatment, [place] [address] [place] [phone] Nasreen, Chair 1 Hem Onc [place]en[place] [address] [place] [address] 05/14/2024 9:00 AM EST Office Visit Hematology/Oncology [facility] 200 [facility] [place] [place] [phone] Chandni Almonte MD 200 [facility] [place] [address] 05/15/2024 10:00 AM EST Office Visit Palliative Medicine [facility] [address] [facility] [address] [place], [place] [phone] Bianca Ruiz MD 400 [place] [address] 07/19/2024 11:30 AM EDT Office Visit Cardiology, [facility] [address] [facility] [place] [address] Ciro Saini DO [address] [place] [address] 02/03/2025 1:00 PM EDT Office Visit Gynecology/Obstetrics [facility] [address] [facility] [place] [address] Nelli Farrell CRNP [address] [place] [address] Health Maintenance Due Date Last Done Comments [...] this encounter Medical Devices Implanted Type Area Manager Risk Management Device Identifier Shelf Expiration Date Model / Serial / Lot Power Port 8fr Sngl Lumen Plas - [id number] Implanted:Qty : 1 on 01/05/2023 by Jai Malcolm Jr., MD at [facility] Right: Chest CR BARD : PERIPHERAL VASCULAR [id number] 07/08/2024 [id number] / / [id number] documented as of this encounter Advance Directives * Full Code (Latest Code Status on File) Date Activated Date Inactivated Comments 11/25/2022 1:54 PM 11/27/2022 2:41 PM This order reflects the patients wishes and were consensually agreed upon. Question Answer Comments Discussion of Advance Directives occurred with: Patient Does the patient have a Living Will? No Does the patient have Health Care Power of Attor johann? No Care Teams Anchor Tacker Relationship Specialty Start Date End Date Lina Can MD [address] [place] [address] [place] [phone] PCP - General Family Medicine 08/06/22 documented as of this encounter
--- OUTSIDE RECORDS SUMMARY | 2024-05-09 12:12 | External Medical Summary | Summary of Care ---
Author Name Unknown Organization [facility] Address [address] [place] [address] Phone [phone] Care Team Providers Care Build Technician Name Role Phone Lina Can MD Primary Care Prov ider Reason for Referral * Evaluate & Treat - Unlimited Visits (Within 10 days (routine)) - Authorized Specialty Diagnoses / Procedures Referred By Contac t Referred To Contact Pharmacist / Pharmacy Diagnoses Malignant neoplasm of sigmoid colon (HCC) Monserrat Nino, [facility] [address] [place] [address] Phone: tel: fax: Referral ID Status Reason Start Date Expiration Date Visits Requested Visits Authorized [id number] Authorized Specialty Services Required 04/24/2024 99 99 Question Answer Referral Priority Within 10 days (routine) Where should this appointment be scheduled? Steven Referring Provider Role: Specialist Specialty: Heme/Onc Reason for Referral: Oral Chemo Has consent been obtained for new oral chemo agent(s)? Yes Comments ORAL CHEMOTHERAPY MTDM MONITORING REFERRAL This patient is being referred to the Oral Chemotherapy Clinic for medication co-management. The planned duration of treatment is: Until disease progression/toxicity Please start oral chemotherapy: Once therapy has arrived from specialty pharmacy Oral Chemotherapy Monitoring will continue until one of the following discharge criteria has been met. The provider will be informed if any of these occur. 1. Disease progression. 2. Patient non-compliance 3. Compliance and tolerating treatment well without major toxicities with routine provider follow up. 4. Completion of therapy. Additional Comments: N/A By my signature, I understand that my patient will have their medication therapy managed by the [facility] Medication Therapy Disease Management [facility] ([facility]) per established policies, procedures, and protocols. I also certify that this referral may serve as an initiation of service for the management of drug therapy in the above noted patient. [facility] providers will be responsible for scheduling patient visits, obtaining appropriate laboratory studies, and adjusting medication management therapy per patient's need, in addition to those roles spelled out in the clinic policy, procedures, and drug management protocols. I understand that the service provided by the [facility] Clinic is voluntary and have informed patient that they can refuse the service at their discretion. I am aware that the [facility] Clinic will provide me with a copy of the patient encounter via my [employer]. I authorize the [facility] Clinic to carry out these activities on my behalf. I consider this program to be a necessary part of the patient's medical care. Encounter Details Date Type Department Care Team (Late st Contact Info) Description 04/19/2024 Orders Only Hematology/Oncology Jean Downey [place] [address] [facility] [place] [address] Heriberto Wiley MD [address] [facility] [place] [address] Malignant neoplasm of sigmoid colon (HCC)* Allergies Active Allergy Reactions Criticality Noted Date Comments Amoxicillin-Pot Clavulanate Nausea/vomiting 07/12/2022 GI upset Doxycycline Nausea/vomiting 07/12/2022 GI upset Oxaliplatin Flushing High 07/27/2023 Shortness of breath Metoclopramide Hives 08/10/2022 documented as of this encounter (statuses as of 04/24/2024) Medications Acetaminophen 500 MG Oral Tablet (Tylenol [...] for Pain, Moderate. 60 Tablet 5 Active Trifluridine-Tip iracil 15-6.14 MG Oral Tablet (Lonsurf)Indicat ions:Malignant neoplasm of sigmoid colon (HCC) Take 30 mg by mouth in the morning and 30 mg before bedtime. Take within 1 hour of meal. On days 1-5 and - of 28 day cycle.. 40 Tablet 5 5 Active Trifluridine-Tip iracil 20-8.19 MG Oral Tablet (Lonsurf)Indicat ions:Malignant neoplasm of sigmoid colon (HCC) Take 20 mg by mouth in the morning and 20 mg before bedtime. Take within 1 hour of meal. On days 1-5 and 8-12 of 28 day cycle.. 20 Tablet 5 5 Active documented as of this encounter (statuses as of 04/24/2024) Active Problems Problem Noted Date Diagnosed Date [...] as of this encounter (statuses as of 04/24/2024) Immunizations No known immunizationsdocumented as of this [...] Assessment Author No 11/25/2022 5:16 PM EDT Nikiat Ramirez RN * Do you have serious [...] documented in this encounter Miscellaneous Notes * Addendum Note - Monserrat Nino RPh - 04/24/2024 12:42 PM ESTAddended by: MONSERRAT NINO on: 04/24/2024 12:42 PM Modules accepted: Orders documented in this encounter Plan of Treatment Upcoming Encounters Date Type Department Care Team (Late st Contact Info) Description 04/24/2024 1:30 PM EST Pharmacy Pharmacy Hematology Oncology [facility] [address] [place] [address] [facility], [facility] Hem/Onc [address] [place] [address] 04/29/2024 9:30 AM EST Scheduled Telephone Palliative Medicine, [address] 5th Floor [place] [address] [place], Nurse Palliative Medicine [facility] 5th [address] [place] [address] 05/06/2024 10:30 AM EST Laboratory Laboratory [facility] [place] [address] [facility] [phone] Nasreen, Lab Scenery [address] [facility] [place] [address] 05/06/2024 11:30 AM EST Hem/Onc Treatment Hematology/Oncology Treatment, [place] [address] [place] [phone] Nasreen, Chair 1 Hem Onc Scene [address] [place] [place] [address] 05/14/2024 9:00 AM EST Office Visit Hematology/Oncology [facility] [place] [address] [place] [phone] Chandni Almonte MD [address] [place] [address] 07/19/2024 11:30 AM EDT Office Visit Cardiology, [facility] [address] [place] [address] Ciro Saini DO [address] [place] [address] 02/03/2025 1:00 PM EDT Office Visit Gynecology/Obstetric s [facility] [address] [place] [address] Nelli Farrell CRNP [address] [place] [address] Scheduled Orders Name Type Priority Associated Diagnoses Orde r Schedule CBC WITH WBC DIFFERENTIAL Lab STAT Malignant neoplasm of sigmoid colon (HCC) Other, Please specify in Comments field for 12 Occurrences starting 04/24/2024 until 04/24/2025 Scheduled Referrals Name Type Priority Associated Diagnoses Orde r Schedule PHARMACIST MEDS THERAPY MGMT REFERRAL OP Referral Within 10 days (routine) Malignant neoplasm of sigmoid colon (HCC) Ordered: 04/24/2024 Health Maintenance Due Date Last Done Comments [...] this encounter Medical Devices Implanted Type Area University Tutor Device Identifier Shelf Expiration Date Model / Serial / Lot Power Port 8fr Sngl Lumen Plas - [id number] Implanted:Qty : 1 on 01/05/2023 by Jai Malcolm Jr., MD at [facility] Right: Chest CR BARD : PERIPHERAL VASCULAR [id number] 07/08/2024 [id number] / / [id number] documented as of this encounter Visit Diagnoses [...] Power of Attor johann? No Care Teams Build Technician Relationship Specialty Start Date End Date Lina Can MD [address] [place] [address] [place] [address] PCP - General Family Medicine 08/06/22 documented as of this encounter
--- OUTSIDE RECORDS SUMMARY | 2024-05-09 12:12 | External Medical Summary | Summary of Care ---
Author Name Unknown Organization [facility] Address [address] [place] [address] Phone [phone] Care Team Providers Care Sand Control Worker Name Role Phone Lina Can MD Primary Care Prov ider Reason for Visit * Reason Comments Medication Management * Evaluate & Treat - Unlimited Visits (Within 10 days (routine)) - Authorized Specialty Diagnoses / Procedures Referred By Contac t Referred To Contact Pharmacist / Pharmacy Diagnoses Malignant neoplasm of sigmoid colon (HCC) Sally Nino, [facility] [address] [place] [address] Phone: tel: fax: Referral ID Status Reason Start Date Expiration Date Visits Requested Visits Authorized [id number] Authorized Specialty Services Required 04/24/2024 99 99 Encounter Details Date Type Department Care Team (Late st Contact Info) Description 04/24/2024 1:30 PM EST Pharmacy Pharmacy Hematology Oncology [facility] [address] [place] [address] [facility], [facility] Hem/Onc [address] [place] [address] Malignant neoplasm of sigmoid colon (HCC)* Allergies [...] for Pain, Moderate. 60 Tablet 5 Active Morphine Sulfate ER 15 [...] 1-5 and 8-12 of 28 day cycle.. 40 Tablet 5 [...] have money to get more. Patient declined 05/ 06/2022 Comments No Sex and Gender Information [...] Nikita Ramirez RN * Do you have difficulty dressing or bathing? (5 years old or older) Answer Date of Assessment Author No 11/25/2022 5:16 PM EDT Nikita Ramirez RN * Because of a [...] Nikita Ramirez RN documented in this encounter Progress Notes * Sally Nino, [facility] - 04/24/2024 12:42 PM EST Lonsurf RX sent to [facility] where [facility] will help with pt assistance Sally Nino, PharmD, BCOP Clinical Pharmacist, [facility] Oral Chemotherapy [facility] 04/24/2024, 12:43 PM Time Spent on Encounter: 6 - 10 minutes Encounter Group: Oncology Encounter Interventions Item Category: Oral Chemotherapy Trifluridine/Tipricil Problem/Rationale: Polo Plan Review: Clinical Review Pharmacist Intervention(s): Medication prescribed Magnitude of Intervention: Modification of medication for asymtomatic patients (Level 2) * Margarita Allan PHARM Tech - 04/24/2024 10:30 AM EST MEDICATION THERAPY MANAGEMENT TRIFLURIDINE/TIPRIACIL TREATMENT STATUS NOTE Nyasia Hdez [phone] Patient Phone Numbers Communication: Chart review Treatment: Medication: Trifluridine/tipiracil (Lonsurf) Indication/Staging/Diagnosis Code: colon cancer / C18.7 Dose Basis: 35mg/m2 (BSA 1.51m2) Dose: 50mg (2-15mg + 1-20 mg tab) BID D1-5 and 8-12 every 28 days Administration: with food Start Date: TBD Primary Beater Operator/Oncologist: Dr. Kodak Wiley Assessment and Plan: Yes/no Date Action Taken Polo plan entered? yes 04/19/24 Consent completed? yes 04/18/24 Intro/med rec completed? yes 04/05/24 Precert completed? Yes 04/23/24 Approved Test claim completed? Yes 04/23/24 GSP - $1945.51 copayment Financial assistance needed? Yes 04/23/24 Physician signature? Yes 04/24/24 Rx released? Education completed? Will follow up in 3 days on Patient assistance. [facility] will contact patient once med shipped/received to complete medication education Please refer to initial intake note for detailed review of regimen and patient- specific education points TJ Kay Furniture Assembly Supervisor Hematology Oncology Oral Chemotherapy Clinic Medication Therapy Disease Management [facility] 04/24/24,12:30 PM Time Spent on Encounter: < 5 minutes documented in this encounter Plan of Treatment Upcoming Encounters Date Type Department Care Team (Late st Contact Info) Description 04/29/2024 9:30 AM EST Scheduled Telephone Palliative Medicine, [address] 5th Floor [place] [address] [place], Nurse Palliative Medicine [facility] 5th [address] [place] [address] 04/29/2024 1:45 PM EST Pharmacy Pharmacy Hematology Oncology [facility] [address] [place] [address] [facility], [facility] Hem/Onc [address] [place] [address] 05/06/2024 10:30 AM EST Laboratory Laboratory [facility] [place] [address] [place] [phone] Nasreen, Lab Scenery [address] [place] [address] 05/06/2024 11:30 AM EST Hem/Onc Treatment Hematology/Oncology Treatment [place] [address] [place] [phone] Nasreen, Chair 1 Hem Onc Scenery [address] [place] [address] 05/14/2024 9:00 AM EST Office Visit Hematology/Oncology [facility] [place] [address] [place] [phone] Chandni Almonte MD [address] [place] [address] 07/19/2024 11:30 AM EDT Office Visit Cardiology, [facility] [address] [place] [address] Ciro Saini, [address] [place] [address] 02/03/2025 1:00 PM EDT Office Visit Gynecology/Obstetric s [facility] [address] [place] [address] Nelli Farrell CRNP [address] [place] [address] Scheduled Referrals Name Type Priority Associated Diagnoses [...] this encounter Medical Devices Implanted Type Area Street Contractor Device Identifier Shelf Expiration Date Model / Serial / Lot Power Port 8fr Sngl Lumen Plas - [id number] Implanted:Qty : 1 on 01/05/2023 by Jai Malcolm Jr., MD at [facility] Right: Chest CR BARD : PERIPHERAL VASCULAR [id number] 07/08/2024 [id number] / / [id number] documented as of this encounter Visit Diagnoses [...] Power of Attor johann? No Care Teams Sand Control Worker Relationship Specialty Start Date End Date Lina Can MD [address] [place] [address] [place] [address] PCP - General Family Medicine 08/06/22 documented as of this encounter
--- OUTSIDE RECORDS SUMMARY | 2024-05-09 12:12 | External Medical Summary | Summary of Care ---
Author Name Unknown Organization [facility] Address [address] [place] [address] Phone [phone] Care Team Providers Care Process Coach Name Role Phone Lina Can MD Primary Care Prov ider Reason for Visit * Reason Onset Date Comments Precert Future 04/18/2024 annel Wan Encounter Details Date Type Department Care Team (Late st Contact Info) Description 04/18/2024 Telephone Hematology/Oncology Treatment, [place] [address] [place] [address] Chandni Almonte MD [address] [place] [address] Precert Future (annel Wan) Allergies Active Allergy [...] for lonsurf, can be filled at [facility]. G sent. * Telephone Encounter - Glo Drake OSA - 04/19/2024 8:21 AM EST Updated appts * Telephone Encounter - Tereza Gray RN - 04/19/2024 7:37 AM EST Zirabev referral entered. Waiting for lonsurf. * Telephone Encounter - Tereza Gray RN - 04/18/2024 3:47 PM EST Order received for annel wan. [place] plan built. Waiting for auth. Consent signed [...] 1:45 PM EST Pharmacy Pharmacy Hematology Oncology [address] [address] [facility], [facility] Hem/Onc [address] [place] [address] 05/06/2024 10:30 AM EST Laboratory Laboratory [facility] [address] [place] [phone] Nasreen, Lab Scenery 05/06/2024 11:30 AM EST Hem/Onc Treatment Hematology/Oncology Treatment, [address] [phone] Nasreen, Chair 1 Hem Onc [address] [place] [address] 05/14/2024 9:00 AM EST Office Visit Hematology/Oncology [facility] [place] [address] [place] [address] Chandni Almonte MD [address] [facility] [place] [address] 05/15/2024 10:00 AM EST Office Visit Palliative Medicine [facility] [place] [address] [address] Bianca Ruiz MD [address] [place] [address] 07/19/2024 11:30 AM EDT Office Visit Cardiology, [facility] [address] [place] [address] Ciro Saini DO [address] [place] [address] 02/03/2025 1:00 PM EDT Office Visit Gynecology/Obstetrics [facility] [address] [place] [address] Nelli Farrell CRNP [address] [place] [address] Health Maintenance Due Date Last Done Comments [...] this encounter Medical Devices Implanted Type Area Lien Searcher Device Identifier Shelf Expiration Date Model / Serial / Lot Power Port 8fr Sngl Lumen Plas - [id number] Implanted:Qty : 1 on 01/05/2023 by Jai Malcolm Jr., MD at [facility] Right: Chest CR BARD : PERIPHERAL VASCULAR [id number] 07/08/2024 [id number] / / [id number] documented as of this encounter Advance Directives [...] Power of Attor johann? No Care Teams Process Coach Relationship Specialty Start Date End Date Lina Can MD [address] [place] [address] [place] [address] PCP - General Family Medicine 08/06/22 documented as of this encounter
--- OUTSIDE RECORDS SUMMARY | 2024-05-09 12:12 | External Medical Summary | Summary of Care ---
Author Name Unknown Organization [facility] Address [address] [place] [address] Phone [phone] Care Team Providers Care Statement Request Clerk Name Role Phone Lina Can MD Primary Care Prov ider Reason for Visit * Reason Comments Medication Management Encounter Details Date Type Department Care Team (Late st Contact Info) Description 05/02/2024 1:45 PM [facility] Pharmacy Pharmacy Hematology Oncology [facility] [address] [place] [address] [facility] [place], [facility] Hem/Onc [address] [place], [place] [id number] Malignant neoplasm of sigmoid colon (HCC)* Allergies [...] 1 hour of meal. 40 Tablet 5 5 Active Trifluridine-Tip iracil 20-8.19 MG Oral Tablet (Lonsurf)Indicat ions:Malignant neoplasm of sigmoid colon (HCC) Take 1 tablet (20 mg) by mouth in the morning and 1 tablet (20 mg) before bedtime on days 1-5 and 8-12 of 28-day cycle. Take within 1 hour of meal. 20 Tablet 5 5 Active oxyCODONE HCl [...] of Assessment Author No 11/25/2022 5:16 PM Shae Milton RN * Do you have serious difficulty walking or climbing stairs? (5 years old or older) Answer Date of Assessment Author No 11/25/2022 5:16 PM Nikita Milton RN * Do you have difficulty dressing or bathing? (5 years old or older) Answer Date of Assessment Author No 11/25/2022 5:16 PM Niktia Milton RN * Because of a physical, [...] documented in this encounter Progress Notes * Margarita Allan, gym supervisor - 05/02/2024 1:07 PM EST MEDICATION THERAPY MANAGEMENT TRIFLURIDINE/TIPRIACIL TREATMENT STATUS NOTE Nyasia Hernández Hdez [phone] Patient Phone Numbers mobile [phone] Communication: Chart review Treatment: Medication: Trifluridine/tipiracil (Lonsurf) Indication/Staging/Diagnosis Code: colon cancer / C18.7 Dose Basis: 35mg/m2 (BSA 1.51m2) Dose: 50mg (2-15mg + 1-20 mg tab) BID D1-5 and 8-12 every 28 days Administration: with food Start Date: Primary Cathode Builder/Oncologist: Dr. Emilia Wiley Assessment and Plan: Yes/no Date Action Taken Porcupine plan entered? yes 04/19/24 Consent completed? yes 04/18/24 Intro/med rec completed? yes 04/05/24 Precert completed? Yes 04/23/24 Approved Test claim completed? Yes 04/23/24 GSP - $1945.51 copayment Financial assistance needed? Yes 04/30/24 Approved Physician signature? Yes 04/24/24 Rx released? Education completed? Patient approved for Pharmacy [facility] 04/26/2024 - 10/24/2024. [facility] will contact patient once med shipped/received to complete medication education Please refer to initial intake note for detailed review of regimen and patient- specific education points Margarita Allan gym supervisor Director Informatics Hematology Oncology Oral Chemotherapy Clinic Medication Therapy Disease Management [facility] 05/02/24,1:10 PM Time Spent on Encounter: 6 - 10 minutes documented in this encounter Plan of Treatment Upcoming Encounters Date Type Department Care Team (Late st Contact Info) Description 05/06/2024 9:30 AM EST Pharmacy Pharmacy Hematology Oncology [facility] [address] [place] [address] [facility] [place], [facility] Hem/Onc [facility] [place] [address] 05/06/2024 10:30 AM EST Laboratory Laboratory [facility] [place] [address] [place] [phone] Nasreen, Lab Scenery [address] [facility] [place] [address] 05/06/2024 11:30 AM EST Hem/Onc Treatment Hematology/Oncology Treatment [place] [address] [place] [phone] Nasreen, Chair 1 Hem Onc [facility] [address] [place] [address] [address] 05/14/2024 9:00 AM EST Office Visit Hematology/Oncology [facility] [place] [address] [place] [phone] Chandni Almonte MD [address] [place] [address] 05/15/2024 10:00 AM EST Office Visit Palliative Medicine [facility] [address] [place] [address] Bianca Ruiz MD [address] [place] [address] [place] [address] 07/19/2024 11:30 AM EDT Office Visit Cardiology, [facility] [address] [facility] [place] [address] Ciro Saini DO [address] [place] [address] 02/03/2025 1:00 PM EDT Office Visit Gynecology/Obstetrics [facility] [address] [facility] [place] [address] Nelli Farrell CRNP [address] [place] [address] Health Maintenance Due Date Last Done Comments [...] this encounter Medical Devices Implanted Type Area Head Athletic Trainer Device Identifier Shelf Expiration Date Model / Serial / Lot Power Port 8fr Sngl Lumen Plas - [id number] Implanted:Qty : 1 on 01/05/2023 by Jai Malcolm Jr., MD at [facility] Right: Chest CR BARD : PERIPHERAL VASCULAR [id number] 07/08/2024 [id number] / / [id number] documented as of this encounter Visit Diagnoses [...] Power of Attor johann? No Care Teams Statement Request Clerk Relationship Specialty Start Date End Date Lina Can MD [address] [place] [address] [place] [address] PCP - General Family Medicine 08/06/22 documented as of this encounter
--- OUTSIDE RECORDS SUMMARY | 2024-05-09 12:12 | External Medical Summary | Summary of Care ---
Author Name Unknown Organization [facility] Address [address] [place] [address] Phone [phone] Care Team Providers Care Bone Drier Operator Name Role Phone Lina Can MD Primary Care Prov ider Encounter Details Date Type Department Care Team (Late st Contact Info) Description 05/01/2024 Population Health External Data Unspecified Department Allergies Active Allergy Reactions Criticality Noted Date Comments Amoxicillin-Pot Clavulanate Nausea/vomiting 07/12/2022 GI upset Doxycycline Nausea/vomiting 07/12/2022 GI upset Oxaliplatin Flushing High 07/27/2023 Shortness of breath Metoclopramide Hives 08/10/2022 documented as of this encounter (statuses as of 05/01/2024) Medications Acetaminophen 500 MG Oral Tablet (Tylenol [...] as of this encounter (statuses as of 05/01/2024) Active Problems Problem Noted Date Diagnosed Date [...] as of this encounter (statuses as of 05/01/2024) Immunizations No known immunizationsdocumented as of this [...] 1:45 PM EST Pharmacy Pharmacy Hematology Oncology [address] [address] [facility], [facility] Hem/Onc [address] [place] [address] 05/06/2024 10:30 AM EST Laboratory Laboratory [facility] Nasreen [place] 200 [facility] [place] [phone] Nasreen, Lab Scenery 200 [facility] [place] [address] 05/06/2024 11:30 AM EST Hem[facility] [address] [place] [phone] Nasreen, Chair 1 Hem Onc [facility] [address] [place] [address] 05/14/2024 9:00 AM EST Office Visit Hematology/Oncology [facility] Nasreen [place] [address] [place] [phone] Chandni Almonte MD [address] [place] [address] 05/15/2024 10:00 AM EST Office Visit Palliative Medicine [facility] [address] [place] [phone] Bianca Ruiz MD 400 [facility] [place] [address] 07/19/2024 11:30 AM EDT Office Visit Cardiology, [facility] [address] [facility] [place] [address] Ciro Saini DO [address] [place] [address] 02/03/2025 1:00 PM EDT Office Visit Gynecology/Obstetrics [facility] [address] [facility] [place] [address] Nelli Farrell CRNP [address] [place] [address] Health Maintenance Due Date Last Done Comments [...] this encounter Medical Devices Implanted Type Area Liability Claims Manager Device Identifier Shelf Expiration Date Model / Serial / Lot Power Port 8fr Sngl Lumen Plas - [id number] Implanted:Qty : 1 on 01/05/2023 by Jai Malcolm Jr., MD at [facility] Right: Chest CR BARD : PERIPHERAL VASCULAR [id number] 07/08/2024 [id number] / / [id number] documented as of this encounter Advance Directives [...] Power of Attor johann? No Care Teams Bone Drier Operator Relationship Specialty Start Date End Date Lina Can MD [address] [place] [address] [place] [address] PCP - General Family Medicine 08/06/22 documented as of this encounter
--- OUTSIDE RECORDS SUMMARY | 2024-05-09 12:12 | External Medical Summary | Summary of Care ---
Author Name Unknown Organization [facility] Address [address] [place] [address] Phone [phone] Care Team Providers Care Records Associate Name Role Phone Lina Can MD Primary Care Prov ider Reason for Visit * Reason Comments Medication Management Encounter Details Date Type Department Care Team (Late st Contact Info) Description 04/29/2024 1:45 PM [facility] Pharmacy Pharmacy Hematology Oncology [facility] [address] [place] [address] [facility], [facility] Hem/Onc [address] [place], [place] [id number] Malignant neoplasm of sigmoid colon (HCC)* Allergies [...] 1-5 and - of 28 day cycle. 20 Tablet 5 [...] this encounter Progress Notes * Margarita Allan, group therapist - 04/30/2024 8:34 AM EST MEDICATION THERAPY MANAGEMENT TRIFLURIDINE/TIPRIACIL TREATMENT STATUS NOTE Nyasia Hernández Hdez [phone] Patient Phone Numbers mobile [phone] Communication: Chart review Treatment: Medication: Trifluridine/tipiracil (Lonsurf) Indication/Staging/Diagnosis Code: colon cancer / C18.7 Dose Basis: 35mg/m2 (BSA 1.51m2) Dose: 50mg (2-15mg + 1-20 mg tab) BID D1-5 and 8-12 every 28 days Administration: with food Start Date: TBD Primary Cash Sales Audit Clerk/Oncologist: Dr. Kodak Wiley Assessment and Plan: Yes/no Date Action Taken Gray plan entered? yes 04/19/24 Consent completed? yes 04/18/24 Intro/med rec completed? yes 04/05/24 Precert completed? Yes 04/23/24 Approved Test claim completed? Yes 04/23/24 GSP - $1945.51 copayment Financial assistance needed? Yes 04/30/24 Patient application submitted to [employer] for assistanceand is in process. Physician signature? Yes 04/24/24 Rx released? Education completed? Will follow up in 3 days on Patient assistance. [facility] will contact patient once med shipped/received to complete medication education Please refer to initial intake note for detailed review of regimen and patient- specific education points documented in this encounter Plan of Treatment Upcoming Encounters Date Type Department Care Team (Late st Contact Info) Description 05/02/2024 1:45 PM EST Pharmacy Pharmacy Hematology Oncology [address] [address] [facility], [facility] Hem/Onc [facility] [place] [address] 05/06/2024 10:30 AM EST Laboratory Laboratory [facility] [place] [address] [place] [phone] Nasreen, Lab [place] [address] [address] [place] [address] 05/06/2024 11:30 AM EST Hem/Onc Treatment Hematology/Oncology [address], [place] [phone] Nasreen, Chair 1 Hem Onc [address] [place] [address] 05/14/2024 9:00 AM EST Office Visit Hematology/Oncology [facility] [place] 200 [place] [phone] Chandni Almonte MD 200 [facility] [place] [address] 05/15/2024 10:00 AM EST Office Visit Palliative Medicine [facility] Nasreen [address] [phone] Bianca Ruiz MD [address] [place] [address] [place] [address] 07/19/2024 11:30 AM EDT Office Visit Cardiology, [facility] [address] [facility] [place] [address] Ciro Saini, [address] [place] [address] 02/03/2025 1:00 PM EDT Office Visit Gynecology/Obstetrics [facility] [address] [place] [address] Nelli Farrell CRNP [address] [place] [address] Health Maintenance Due Date Last Done Comments [...] this encounter Medical Devices Implanted Type Area Cord Splicer Device Identifier Shelf Expiration Date Model / Serial / Lot Power Port 8fr Sngl Lumen Plas - [id number] Implanted:Qty : 1 on 01/05/2023 by Jai Malcolm Jr., MD at [facility] Right: Chest CR BARD : PERIPHERAL VASCULAR [id number] 07/08/2024 [id number] / / [id number] documented as of this encounter Visit Diagnoses [...] Power of Attor johann? No Care Teams Records Associate Relationship Specialty Start Date End Date Lina Can MD [address] [place] [address] [place] [phone] PCP - General Family Medicine 08/06/22 documented as of this encounter
--- OUTSIDE RECORDS SUMMARY | 2024-05-09 12:13 | External Medical Summary | Summary of Care ---
Author Name Unknown Organization [facility] Address [address] [place] [address] Phone [phone] Care Team Providers Care Railway Yard Assistant Name Role Phone Lina Can MD Primary Care Prov ider Reason for Visit * Reason Onset Date Comments Precert Future 04/19/2024 xgeva Encounter Details Date Type Department Care Team (Late st Contact Info) Description 04/19/2024 Telephone Hematology/Oncology Treatment, [place] 200 [place] [address] Chandni Almonte MD 200 [place] [address] Precert Future (xgeva) Allergies Active Allergy Reactions Criticality Noted Date Comments Amoxicillin-Pot Clavulanate Nausea/vomiting 07/12/2022 GI upset Doxycycline Nausea/vomiting 07/12/2022 GI upset Oxaliplatin Flushing High 07/27/2023 Shortness of breath Metoclopramide Hives 08/10/2022 documented as of this encounter (statuses as of 04/22/2024) Medications Acetaminophen 500 MG Oral Tablet (Tylenol [...] as of this encounter (statuses as of 04/22/2024) Active Problems Problem Noted Date Diagnosed Date [...] as of this encounter (statuses as of 04/22/2024) Immunizations No known immunizationsdocumented as of this [...] Telephone Encounter - Tereza Gray RN - 04/22/2024 7:41 AM EST Message sent to [employer] group. * Telephone Encounter - Tereza Gray RN - 04/19/2024 12:42 PM EST Order received for xgeva. [place] plan built and routed for signature. Waiting for auth. Called patient to review - reviewed side effects - reviewed starting calcium/ vit D supplements - reviewed dental status- patient has full dentures Advised her that we will plan to start either Monday if auth is back or with treatment in 2 weeks. Patient states that pain has seemed worse today. Reviewed using supplemental tylenol, per Dr Wiley can take 1 or 2 tablets oxycodone every 4 hours prn pain. Patient verbalized understanding. documented in this encounter Plan of Treatment Upcoming Encounters Date Type Department Care Team (Late st Contact Info) Description 04/22/2024 1:00 PM EST Laboratory Laboratory [address] [place] [phone] Nasreen Lab [place] [address] [address] [facility] [place] [address] 04/22/2024 1:15 PM EST Hem/Onc Treatment Hematology/Oncology Treatment, [place] [address] [place] [phone] Nasreen Chair 4 Hem Onc [facility] [address] [place] [address] 04/24/2024 1:30 PM EST Pharmacy Pharmacy Hematology Oncology [address] [address] [facility], [facility] Hem/Onc [address] [place], [place] [address] 05/14/2024 9:00 AM EST Office Visit [facility]ematology[facility]Oncology [facility] [address] [place] [phone] Chandni Almonte MD [address] [place] [address] 07/19/2024 11:30 AM EDT Office Visit Cardiology, [facility] [address] [facility] [place] [address] Ciro Saini DO [address] [place] [address] 02/03/2025 1:00 PM EDT Office Visit Gynecology/Obstetrics [facility] [address] [place] [address] Nelli Farrell CRNP [address] [place] [address] Scheduled Orders Name Type Priority Associated Diagnoses Orde r Schedule PHOSPHORUS Lab STAT Malignant neoplasm of sigmoid colon (HCC) Every Month for 13 Occurrences starting 04/19/2024 until 04/19/2025 Scheduled Procedures Name Priority Associated Diagnoses Date/Ti me PRE / POST CARE Malignant neoplasm of sigmoid colon (HCC) 11/03/2023 9:00 AM EDT Health Maintenance Due Date Last Done Comments [...] this encounter Medical Devices Implanted Type Area Housekeeping Worker Device Identifier Shelf Expiration Date Model / Serial / Lot Power Port 8fr Sngl Lumen Plas - [id number] Implanted:Qty : 1 on 01/05/2023 by Jai Malcolm Jr., MD at [facility] Right: Chest CR BARD : PERIPHERAL VASCULAR [id number] 07/08/2024 [id number] / / [id number] documented as of this encounter Results * PHOSPHORUS (04/18/2024 2:54 PM EST) Phosphorus 3.9 2.5 - 4.8 mg/dL 04/19/2024 1:32 PM EST [facility] 56-02 Blood Blood sample taken from central line / Unknown Central Line / Unknown 04/18/2024 2:54 PM EST 04/18/2024 2:58 PM EST us Chandni Almonte MD LAB BLOOD ORDERABLES Fin al Result [facility] 56-[address] [place] [address] documented in this encounter Visit Diagnoses Diagnosis [...] Power of Attor johann? No Care Teams Railway Yard Assistant Relationship Specialty Start Date End Date Lina Can MD [address] [place] [address] [place] Patel [phone] PCP - General Family Medicine 08/06/22 documented as of this encounter
--- OUTSIDE RECORDS SUMMARY | 2024-05-09 12:13 | External Medical Summary | Summary of Care ---
Author Name Unknown Organization [facility] Address [address] [place] [address] Phone [phone] Care Team Providers Care Java Application Engineer Name Role Phone Lina Can MD Primary Care Prov ider Reason for Visit * Reason Onset Date Comments Precert Future 04/19/2024 xgeva Encounter Details Date Type Department Care Team (Late st Contact Info) Description 04/19/2024 Telephone Hematology/Oncology Treatment, [place] 200 [place] [address] Chandni Almonte MD 200 [place] [address] Precert Future (xgeva) Allergies Active Allergy Reactions [...] 04/22/2024 7:41 AM EST Message sent to [employer] group. * Telephone Encounter - Tereza Gray RN - 04/19/2024 12:42 PM EST Order received for xgeva. [place] plan built and routed for signature. Waiting [...] Description 04/22/2024 1:00 PM EST Laboratory Laboratory [address] [place] [phone] Nasreen Lab [place] [address] [address] [facility] [place] [address] 04/22/2024 1:15 PM EST Hem/Onc Treatment Hematology/Oncology Treatment, [place] [address] [place] [phone] Nasreen Chair [address] [facility] [address] [place] [address] 04/24/2024 1:30 PM EST Pharmacy Pharmacy Hematology Oncology [address] [address] [facility] [place], [facility] Hem/Onc [address] [place], [place] [address] 05/14/2024 9:00 AM EST Office Visit Hematology/[facility] [address] [place] [phone] Chandni Almonte MD [address] [place] [address] 07/19/2024 11:30 AM EDT Office Visit Cardiology, [facility] [address] [facility] [place] [address] Ciro Saini DO [address] [place] [address] 02/03/2025 1:00 PM EDT Office Visit Gynecology/Obstetrics [facility] [address] [place] [address] Nelli Farrell CRNP [address] [place] [address] Scheduled Orders Name Type Priority Associated Diagnoses [...] this encounter Medical Devices Implanted Type Area Commercial Agent Device Identifier Shelf Expiration Date Model / Serial / Lot Power Port 8fr Sngl Lumen Plas - [id number] Implanted:Qty : 1 on 01/05/2023 by Jai Malcolm Jr., MD at [facility] Right: Chest CR BARD : PERIPHERAL VASCULAR [id number] 07/08/2024 [id number] / / [id number] documented as of this encounter Results * PHOSPHORUS (04/18/2024 2:54 PM EST) Phosphorus 3.9 2.5 - 4.8 mg/dL 04/19/2024 1:32 PM EST [facility] 56-02 Blood Blood sample taken from central line / Unknown Central Line / Unknown 04/18/2024 2:54 PM EST 04/18/2024 2:58 PM EST us Chandni Almonte MD LAB BLOOD ORDERABLES Fin al Result [facility] 56-[address] [place] [address] documented in this encounter Visit [...] Power of Attor johann? No Care Teams Java Application Engineer Relationship Specialty Start Date End Date Lina Can MD [address] [place] [address] [place] Patel [phone] PCP - General Family Medicine 08/06/22 documented as of this encounter
--- OUTSIDE RECORDS SUMMARY | 2024-05-09 12:13 | External Medical Summary | Summary of Care ---
Author Name Unknown Organization [facility] Address [address] [place] [address] Phone [phone] Care Team Providers Care Director Mba Name Role Phone Lina Can MD Primary Care Prov ider Reason for Referral * Evaluate & Treat - Unlimited Visits (Within 3 days (urgent)) - Authorized Specialty Diagnoses / Procedures Referred By Contac t Referred To Contact Hospice and Palliative Medicine / Palliative Medicine Diagnoses Malignant neoplasm of sigmoid colon (HCC) Metastasis to bone (HCC) Chandni Almonte MD [facility] [place] [address] Phone: tel: fax: Referral ID Status Reason Start Date Expiration Date Visits Requested Visits Authorized [id number] Authorized Specialty Services Required 04/22/2024 999 999 Question Answer Referral Priority Within 3 days (urgent) Where should this appointment be scheduled? [place] Reason for Referral: Cancer Palliative Medicine To Address: Pain & Symptom Management Referral Location Office Reason for Visit * Reason Onset Date Comments Information 04/22/2024 Encounter Details Date Type Department Care Team (Late st Contact Info) Description 04/22/2024 Refill Hematology/Oncology Treatment, [place] [address] [facility] [place] [facility] [place] [place] [phone] Chandni Almonte MD 200 [facility] [address] Malignant neoplasm of sigmoid colon (HCC)*; Metastasis to bone (HCC) Allergies Active Allergy Reactions Criticality Noted Date Comments Amoxicillin-Pot Clavulanate Nausea/vomiting 07/12/2022 GI upset Doxycycline Nausea/vomiting 07/12/2022 GI upset Oxaliplatin Flushing High 07/27/2023 Shortness of breath Metoclopramide Hives 08/10/2022 documented as of this encounter (statuses as of 04/23/2024) Medications Acetaminophen 500 MG Oral Tablet (Tylenol [...] as needed for Pain, Moderate. 60 Tablet Active documented as of this encounter (statuses as of 04/23/2024) Active Problems Problem Noted Date Diagnosed Date [...] as of this encounter (statuses as of 04/23/2024) Immunizations No known immunizationsdocumented as of this [...] Assessment Author No 11/25/2022 5:16 PM Nikita Mitlon RN * Do you have difficulty dressing [...] encounter Miscellaneous Notes * Addendum Note - Saud Gray RN - 04/23/2024 2:30 PM ESTAddended by: SAUD GRAY on: 04/23/2024 02:30 PM Modules accepted: Orders * Telephone Encounter - Saud Gray RN - 04/23/2024 2:28 PM EST Received message from palliative care. Patient seen by video today (per her request due to pain/ how far she lives from office). They are requesting we help write new rx for MS Contin until patient can be seen in person for them to take over prescriptions. PDMP reviewed- oxycodone filled 04/15/24 for 60 tabs. No concerns. * Telephone Encounter - Saud Gray RN - 04/22/2024 2:09 PM EST Spoke to patient in treatment room about pain. Patient has been taking oxycodone 2 tabs at home with tylenol in between, but taking 2 tablets makes her sleep for hours. Since she had an appt today, she only took 1 at a time. Last took oxycodone around 9/10am today, took tylenol at that time as well. Pain 9/10, does not feel like oxycodone helped at all. Advised patient that since it has been 4 hours, can take oxycodone again- suggested she take 2 tabs. Patient states that she would rather take 1 now and then another when she leaves as she does not want to sleep the whole time she is here. Patient states that she would like to discuss pain management as she does not like taking opioids, would like to look into other options. Offered palliative care referral. Patient accepted. Discussedthat she will need in person visit at some point, but can ask them to do video visit for initial visit due to how far away she lives/ how much pain she is currently having. Patient agreeable. Spoke to Caridad, patient scheduled Monday at 10:30am for video visit. documented in this encounter Plan of Treatment Upcoming Encounters Date Type Department Care Team (Late st Contact Info) Description 04/24/2024 1:30 PM EST Pharmacy Pharmacy Hematology Oncology [facility] [address] [place] [address] [facility] Hem/Onc [address] [place] [address] 04/29/2024 9:30 AM EST Scheduled Telephone Palliative Medicine, [address] 5th Floor [place] [address] [place], Nurse Palliative Medicine [facility] 5th 400 [facility] [address] 05/06/2024 10:30 AM EST Laboratory Laboratory Jean Downey [place] [address] [place], [place] [address] [place], Lab Scenery [address] [place] [address] 05/06/2024 11:30 AM EST Hem/Onc Treatment Hematology/Oncology Treatment, [place] [address] [place] [phone] Nasreen, Chair 1 Hem Onc [address] [place] [address] 05/14/2024 9:00 AM EST Office [facility] [place] [address] [place] [phone] Chandni Almonte MD [address] [place] [address] 07/19/2024 11:30 AM EDT Office Visit Cardiology, [facility] [address] [place] [address] Ciro Saini DO [address] [place] [address] 02/03/2025 1:00 PM EDT Office Visit Gynecology/Obstetric s [facility] [address] [place] [address] Nelli Farrell CRNP [address] [place] [address] Scheduled Procedures Name Priority Associated Diagnoses Date/Ti me PRE / POST CARE Malignant neoplasm of sigmoid colon (HCC) 11/03/2023 9:00 AM EDT Scheduled Referrals Name Type Priority Associated Diagnoses Orde r Schedule PALLIATIVE CARE REFERRAL OP Referral Within 3 days (urgent) Malignant neoplasm of sigmoid colon (HCC) Metastasis to bone (HCC) Ordered: 04/22/2024 Health Maintenance Due Date Last Done Comments [...] this encounter Medical Devices Implanted Type Area Assessment Nurse Device Identifier Shelf Expiration Date Model / Serial / Lot Power Port 8fr Sngl Lumen Plas - [id number] Implanted:Qty : 1 on 01/05/2023 by Jai Malcolm Jr., MD at [facility] Right: Chest CR BARD : PERIPHERAL VASCULAR [id number] 07/08/2024 [id number] / / [id number] documented as of this encounter Visit Diagnoses Diagnosis Malignant neoplasm of sigmoid colon (HCC)- Primary Malignant neoplasm of sigmoid colon Metastasis to [...] Power of Attor johann? No Care Teams Director Mba Relationship Specialty Start Date End Date Lina Can MD NPI: [id number] [place] [address] [place] [phone] PCP - General Family Medicine 08/06/22 documented as of this encounter
--- OUTSIDE RECORDS SUMMARY | 2024-05-09 12:13 | External Medical Summary | Summary of Care ---
Author Name Unknown Organization [facility] Address [address] [place] [address] Phone [phone] Care Team Providers Care Bunch Breaker Name Role Phone Lina Can MD Primary Care Prov ider Reason for Visit * Reason Comments Chemotherapy Zirabev * Episode Based Medications (Routine) - Authorized Specialty Diagnoses / Procedures Referred By Contac t Referred To Contact Diagnoses Encounter for antineoplastic chemotherapy Malignant neoplasm of sigmoid colon (HCC) Procedures IN INJ., ZIRABEV, 10 MG Heriberto Wiley MD [address] [place] [address] Phone: tel: fax: Hematology/Oncology Treatment, [address] [address] Phone: tel: fax: Referral ID Status Reason Start Date Expiration Date V isits Requested Visits Authorized [id number] Authorized 04/18/2024 04/09/[phone] Encounter Details Date Type Department Care Team (Latest Contact Info) Description 04/22/2024 1:15 PM EST Hem/Onc Treatment Hematology/Oncolog y Treatment, [address] [address] Nasreen Chair 4 Hem Onc [address] [place] [address] Encounter for antineoplastic chemotherapy*; Malignant neoplasm of sigmoid colon (HCC); Metastasis [...] Sign Reading Time Taken Comments Blood Pressure 122/56 04/22/2024 1:45 PM EST Pulse 136 04/22/2024 1:45 PM EST Temperature 36.2 C (97.2 F) 04/22/2024 1:45 PM ES T Respiratory Rate 16 04/22/2024 1:45 PM EST Oxygen Saturation 97% 04/22/2024 1:45 PM EST Inhaled Oxygen Concentration - - Weight [...] Nikita Milton RN documented in this encounter Nursing Notes * Mery Luther RN - 04/22/2024 4:17 PM EST Pt completed treatment without issues. VAD flushed with 10 ml NSS and Heparin 5 ml (100 units/ml). Bowie needle removed intact. Xgeva administered per order; pt tolerated well. Goals: Pt will remain free from injury. Possible barriers to meeting goals: ambulation with IV pole, pt is a high fall risk currently Stability of the patient: Moderately stable - low risk of patient condition declining or worsening Summary regarding today's goals: Met: . Pt remained free from injury during treatment today. Discharged in stable condition. * Mery Luther, RN - 04/22/2024 1:46 PM EST Chair 11 Chemotherapy/Immunotherapy agents: ANGEL Consent for chemotherapy drug treatment complete, dated, and signed? yes, date - 04/18/24 Treatment lab parameters met? Yes Has treatment weight changed > than 10%? No Treatment preauthorized? Yes VITALS Filed Vitals: 04/22/24 1345 BP: 122/56 Pulse: 136 Resp: 16 Temp: 36.2 C (97.2 F) SpO2: 97% BP Readings from Last 2 Encounters: 04/22/24 122/56 04/18/24 103/74 Pulse Readings from Last 2 Encounters: 04/22/24 136 04/18/24 156 Resp Readings from Last 2 Encounters: 04/22/24 16 02/27/24 18 SpO2 Readings from Last 2 Encounters: 04/22/24 97% 04/18/24 96% Temp Readings from Last 2 Encounters: 04/22/24 36.2 C (97.2 F) 04/18/24 36.5 C (97.7 F) (Tympanic) Urine protein: POSITIVE, WNL Patient education completed for treatment? Yes Blood transfusion consent signed and complete? NA Return appointment scheduled? Yes Patient had provider visit today? No - If no provider visit must complete Pretreatment Assessment PRE-TREATMENT ASSESSMENT: NEURO: fatigue:more persistent while taking pain meds CV/RESP: denies symptoms GI/: constipation: stable and decreased appetite: ongoing OTHER: denies any additional symptoms PAIN: 9-10 pain location : back, hip VAD accessed; NSS infusing. Safety and Risk for Injury Patient will remain free from injury. Ensure appropriate safety devices are available. Provide and maintain safe environment. Functional Status: Functional status at today's visit: Restricted in physically strenuous activity but ambulatory and able to carry out work on a light orsedentary nature, e.g. light house work, office work The drug name, dose, infusion volume, rate [...] Care Team (Late st Contact Info) Description 04/23/2024 1:30 PM EST Telemedicine Palliative Medicine, [facility] [address] [facility] 5th [place] [address] Alisia Loo CRNP [address] [place] [address] 04/24/2024 1:30 PM EST Pharmacy Pharmacy Hematology Oncology [address] [address] [facility] Hem/Onc [address] [place] [address] 05/06/2024 10:30 AM EST Laboratory Laboratory [facility] Raymond Downey [address] [place] [phone] Nasreen, Lab [address] [facility] [place] [address] 05/06/2024 11:30 AM EST Hem/Onc Treatment Hematology/Oncology Treatment, [place] [address] [place] [phone] Nasreen, Chair 1 Hem Onc [address] [place] [address] 05/14/2024 9:00 AM EST Office Visit Hematology/Oncology [facility] [place] [address] [place] [phone] Chandni Almonte MD [address] [place] [address] 07/19/2024 11:30 AM EDT Office Visit Cardiology, [facility] [address] [place] [address] Ciro Saini DO [address] [place] [address] 02/03/2025 1:00 PM EDT Office Visit Gynecology/Obstetrics [facility] [address] [place] [address] BackerNelli CRNP [address] [place] [address] Scheduled Procedures Name Priority Associated Diagnoses Date/Ti [...] this encounter Medical Devices Implanted Type Area [employer] Crewmember Device Identifier Shelf Expiration Date Model / Serial / Lot Power Port 8fr Sngl Lumen Plas - [id number] Implanted:Qty : 1 on 01/05/2023 by Jai Malcolm Jr., MD at OR [facility] Right: Chest CR BARD : PERIPHERAL VASCULAR [id number] 07/08/2024 [id number] / / [id number] documented as of this encounter Procedures Procedure Name Priority Date/Time Associated Diagnosis Comments URINALYSIS, REFLEX TO MICROSCOPIC STAT 04/22/2024 1:09 PM EST Malignant neoplasm of sigmoid colon (HCC) Metastasis to bone (HCC) documented in this encounter Results * (ABNORMAL) URINALYSIS, REFLEX TO MICROSCOPIC (04/22/2024 1:09 PM EST) Color, Urine Yellow 04/22/2024 1:42 PM EST LAB[facility] [place] [address] Clarity, Urine Clear 04/22/2024 1:42 PM EST LABORATORY [address] Glucose, Urine Negative mg/dL 04/22/2024 1:42 PM EST LABORATORY [address] Bilirubin, Urine Small 04/22/2024 1:42 PM EST LABORATORY [address] Ketone, Urine Trace mg/dL 04/22/2024 1:42 PM EST [facility] [address] Specific [place], Urine 1.020 1.003 - 1.030 04/22/2024 1:42 PM EST LABORATORY [address] Blood, Urine Negative 04/22/2024 1:42 PM EST LABORATORY [address] pH, Urine 5.5 5.0 - 7.5 Units 04/22/2024 1:42 PM EST LABORATORY [address] Protein, Urine 30 mg/dL 04/22/2024 1:42 PM EST [facility] [address] Urobilinogen, Urine 1.0 mg/dL 04/22/2024 1:42 PM EST LAB[facility] 56-02 Nitrite, Urine Negative Negative 04/22/2024 1:42 PM EST [facility] [address] Esterase, Urine Small(A) Negative 04/22/2024 1:42 PM EST LABORATORY [address] RBC, Urine 0-2 0 - 2 /HPF 04/22/2024 1:42 PM EST [facility] 56- WBC, Urine 6-9(A) 0 - 2 /HPF 04/22/2024 1:42 PM EST [facility] 56- Bacteria, Urine 0-25 0 - 25 /HPF 04/22/2024 1:42 PM EST [facility] 56- Hyaline, Cast, Urine 1-4(A) None /LPF 04/22/2024 1:42 PM EST [facility] 56- Urine Urine specimen obtained by clean catch procedure / Unknown Non-blood Collection / Unknown 04/22/2024 1:09 PM EST 04/22/2024 1:17 PM EST Chandni Almonte MD LAB URINE ORDERABLES Fin al Result [facility] 56- [address] [place] [address] documented in this encounter Visit Diagnoses Diagnosis Encounter for antineoplastic chemotherapy- Primary Malignant neoplasm of sigmoid colon (HCC) Malignant neoplasm of sigmoid colon Metastasis to bone (HCC) Secondary malignant neoplasm of bone and bone marrow documented in this encounter Administered Medications Active Administered Medications - up to 3 most recent administrations Medication Order MAR Action Action Date Dose Rate Site diphenhydrAMINE (Benadryl) inj 50 mg 50 mg, IV Push, ONCE PRN Other, Hypersensitivity Reaction, Starting on Mon04/22/24 at 1351, Until Mon04/23/24 at 1350, For 24 hoursIndications:Malignant neoplasm of sigmoid colon (HCC),Encounter for antineoplastic chemotherapy EPINEPHrine 1 MG/ML inj 0.3 mg 0.3 mg, Intramuscular, ONCE PRN Other, Hypersensitivity Reaction or Anaphylaxis, Starting on Mon04/22/24 at 1351, Until Mon04/23/24 at 1350, For 24 hoursIndications:Malignant neoplasm of sigmoid colon (HCC),Encounter for antineoplastic chemotherapy hEParin 100 UNIT/ML Lock Flush inj 500 Units 500 Units (5 mL), IV Lock, PRN Other, IV Flush, Starting on Mon04/22/24 at 1351, Until Mon04/23/24 at 1350, For 24 hours, Do not flush if lock, PICC, or central line not in place; IV infusing or unable to flush.Indications:Malignant neoplasm of sigmoid colon (HCC),Encounter for antineoplastic chemotherapy Hydrocortisone Sod Suc (PF) (Solu-Cortef) inj 100 mg 100 mg, IV Push, ONCE PRN Other, Hypersensitivity Reaction, Starting on Mon04/22/24 at 1351, Until Mon04/23/24 at 1350, For 24 hoursIndications:Malignant neoplasm of sigmoid colon (HCC),Encounter for antineoplastic chemotherapy NSS infusion Intravenous, at 50 mL/hr, PRN, Starting on Mon04/22/24 at 1500, Until Discontinued, Maintenance lineIndications:Malignant neoplasm of sigmoid colon (HCC),Encounter for antineoplastic chemotherapy Start Infusion 04/22/2024 2:04 PM EST 50 mL/hr oxygen GAS Inhalation, OXYGEN, First dose on Mon04/22/24 at 1600, Until Discontinued, Device/Managed by: Low [...] saturation is greater than or equal to 93%Indications:Malignant neoplasm of sigmoid colon (HCC),Encounter for antineoplastic chemotherapy sodium chloride 0.9 % flush central line 10 mL 10 mL, IV Push, PRN Other, IV Flush, Starting on Mon04/22/24 at 1351, Until Mon04/23/24 at 1350, For 24 hours, Do not flush if lock, PICC, or central line not in place; IV infusing or unable to flush.Indications:Malignant neoplasm of sigmoid colon (HCC),Encounter for antineoplastic chemotherapy Inactive Administered Medications - up to 3 most recent administrations Medication Order MAR Action Action Date Dose Rate Site bevaCIZumab-bvzr (Zirabev) 265 mg in NSS 100 mL infusion 265 mg (5 mg/kg 53 kg Treatment plan Recorded weight), IV Piggyback, ONCE, 1 dose, On Mon04/22/24 at 1530, Administer over 30 Minutes, Flush with NSS only!Indications:Maligna nt neoplasm of sigmoid colon (HCC),Encounter for antineoplastic chemotherapy Start Infusion 04/22/2024 2:29 PM EST 265 mg 210 mL/hr Denosumab (Xgeva) subcut inj 120 mg 120 mg, Subcutaneous, ONCE, On Mon04/22/24 at 1530, For 1 doseIndications:Malignan t neoplasm of sigmoid colon (HCC),Metastasis to bone (HCC) Given 04/22/2024 2:57 PM EST 120 mg Arm Left Upper documented in this encounter Advance Directives * [...] Power of Attor johann? No Care Teams Bunch Breaker Relationship Specialty Start Date End Date Lina Can MD [address] [place] [address] [place] [address] PCP - General Family Medicine 08/06/22 documented as of this encounter
--- OUTSIDE RECORDS SUMMARY | 2024-05-09 12:13 | External Medical Summary | Summary of Care ---
Author Name Unknown Organization [facility] Address [address] [place] [address] Phone [phone] Care Team Providers Care Die Filer Name Role Phone Lina Can MD Primary Care Prov ider Reason for Visit * Reason Comments Medication Management Encounter Details Date Type Department Care Team (Late st Contact Info) Description 04/19/2024 1:00 PM [facility] Pharmacy Pharmacy Hematology Oncology [facility] [address] [place] [address] [facility] Hem/Onc [address] [place], [place] [id number] Malignant neoplasm of sigmoid colon (HCC)* Allergies Active Allergy Reactions Criticality Noted Date Comments Amoxicillin-Pot Clavulanate Nausea/vomiting 07/12/2022 GI upset Doxycycline Nausea/vomiting 07/12/2022 GI upset Oxaliplatin Flushing High 07/27/2023 Shortness of breath Metoclopramide Hives 08/10/2022 documented as of this encounter (statuses as of 04/19/2024) Medications Acetaminophen 500 MG Oral Tablet (Tylenol [...] as of this encounter (statuses as of 04/19/2024) Active Problems Problem Noted Date Diagnosed Date [...] as of this encounter (statuses as of 04/19/2024) Immunizations No known immunizationsdocumented as of this [...] Assessment Author No 11/25/2022 5:16 PM Nikita Miltno RN * Are you blind or do [...] this encounter Progress Notes * Sally Nino, [facility] - 04/19/2024 4:02 PM EST MEDICATION THERAPY MANAGEMENT TRIFLURIDINE/TIPRIACIL INITIAL INTAKE NOTE Nyasia Hdez [phone] Patient Phone Numbers Communication: Chart review Treatment: Medication: Trifluridine/tipiracil (Lonsurf) Indication/Staging/Diagnosis Code: colon cancer / C18.7 Dose Basis: 35mg/m2 (BSA 1.51m2) Dose: 50mg (2-15mg + 1-20 mg tab) BID D1-5 and 8-12 every 28 days Administration: with food Start Date: TBD Primary Online Activist/Oncologist: Dr. Kodak Wiley Additional Therapy: Bevacizumab Supportive Care Meds: Ondansetron Prochlorperazine Prophylactic Meds: none Relevant Chronic Medications: Category Medications Pertinent Notes Antihypertensives Metoprolol ER 25mg daily Per PCP Anticoagulation Apixaban 5mg BID Per cardiology Cycle Dates C1 TBD C2 TBD Review of therapy: Line of therapy: third Previous therapy: Breast Cancer: ~1995: ddAC + Taxol Colon cancer: 01/2023-07/2023: FOLFOX 07/2023; 11/2023-03/2024: FOLFIRI + bevacizumab Reviewed dosage prescribed for appropriateness (based on indication, hepatic function,renal function, etc): no changes Dose assessment: 35mg/m2 * 1.51m2= 52.85mg (rounded to 50mg) Are appropriate supportive care medications prescribed? Yes Are appropriate prophylactic medications prescribed? Yes Have baseline labs/tests been obtained? Yes Has hepatitis B screening been completed? Yes Potential drug-drug drug-herbal, drug-food, drug-disease interactions: No The Hematology/Oncology Oral Chemotherapy Clinic will assess medication compliance at each patient encounter Assessment and Plan: [place] plan uploaded and sent to Dr. Wiley for signature MTM to follow up in 3 days to assess beacon plan signature and auth status Yes/no Date Action Taken [place] plan entered? yes 04/19/24 Consent completed? yes 04/18/24 Intro/med rec completed? yes 04/05/24 Precert completed? Test claim completed? Financial assistance needed? Physician signature? Rx released? Education completed? Follow up: 3 days Sally Nino, PharmD, BCOP Clinical Pharmacist, [facility] Oral Chemotherapy [facility] 04/19/2024, 4:12 PM Monitoring Parameters: Estimated CrCl Serum creatinine: 0.5 mg/dL 04/18/24 1454 Estimated creatinine clearance: 50.1 mL/min Hepatitis panel Latest Reference Range & Units 12/22/22 14:10 Hepatitis B Surface Antigen Negative Negative Hepatitis B Surface Antibody, Quantitative mIU/mL 42.7 HEPATITIS B SURFACE ANTIBODY Rpt Hepatitis B Surface Antibody, Interpretation Immune to Hepatitis B Virus Hepatitis B Surface Antibody, Qualitative Positive Hepatitis B Core Antibodies IgG and IgM Negative Negative test N/A - postmenopausal Suggested lab monitoring Suggested lab monitoring: CBC/d prior to each cycle and D15 [no dose adjustments in moderate renal/hepatic impairment (not studied in severe impairment)]. Treatment Parameters Parameters to be met prior to cycle initiation: ANC > 1500 and PLT > 75,000 Pertinent labs: Latest Reference Range & Units 04/18/24 14:54 WBC 4.00 - 10.80 K/uL 9.68 RBC 3.85 - 5.15 M/uL 3.17 HGB 12.0 - 15.3 g/dL 10.4 (L) HCT 36.0 - 45.2 % 32.3 (L) MCV 81.5 - 97.5 fL 101.9 MCH 27.0 - 34.0 pg 32.8 MCHC 32.0 - 36.0 g/dL 32.2 RDW 11.5 - 15.5 % 14.4 PLT 140 - 400 K/uL 183 MPV 6.6 - 11.1 fL 9.6 CBC WITH WBC DIFFERENTIAL Rpt ! Absolute Neutrophils 1.80 - 7.70 K/uL 7.80 (H) Latest Reference Range & Units 04/18/24 14:54 Albumin 3.8 - 5.0 g/dL 3.5 (L) AST 10 - 35 U/L 30 ALT 10 - 35 U/L 20 Alkaline Phosphatase 35 - 130 U/L 209 (H) Bilirubin, Total <=1.2 mg/dL 0.5 Time Spent on Encounter: 16 - 20 minutes Encounter Group: Oncology Encounter Interventions Item Category: Oral Chemotherapy Trifluridine/Tipricil Problem/Rationale: Indication: Needs additional medication therapy - Untreated condition, - Synergistic therapy [place] Plan Review: Initial Plan/upload Pharmacist Intervention(s): Drug Interaction Screen, Lab monitoring, and Referral review Magnitude of Intervention: Monitoring with direction (Level 1) documented in this encounter Plan of Treatment Upcoming Encounters Date Type Department Care Team (Late st Contact Info) Description 04/22/2024 1:00 PM EST Laboratory Laboratory [facility] Nasreen [place] [address] [place] [phone] Nasreen, Lab [facility] [address] [facility] [place] [address] 04/22/2024 1:15 PM EST Hem/Onc Treatment Hematology/Oncology Treatment, [place] [address] [place] [address] Nasreen, Chair 4 Hem On[address] [place] [address] 04/24/2024 1:30 PM EST Pharmacy Pharmacy Hematology Oncology [facility] [address] [place] [address] [facility] Hem/Onc [address] [place] [address] 05/14/2024 9:00 AM EST Office Visit Hematology/Oncology [facility] Nas[place] [address] [place] [phone] Chandni Almonte MD [address] [place] [address] 07/19/2024 11:30 AM EDT Office Visit [facility]iology, [facility] [place] [address] Ciro Saini, [address] [place] [address] 02/03/2025 1:00 PM EDT Office Visit Gynecology/Obstetrics [place] [address] [place] [address] Backer, SANDRA Murillo [address] [place] [address] Scheduled Procedures Name Priority Associated Diagnoses Date/Ti [...] this encounter Medical Devices Implanted Type Area Social Contact Worker Device Identifier Shelf Expiration Date Model / Serial / Lot Power Port 8fr Sngl Lumen Plas - [id number] Implanted:Qty : 1 on 01/05/2023 by Jai Malcolm Jr., MD at OR [facility] Right: Chest CR BARD : PERIPHERAL VASCULAR [id number] 07/08/2024 [id number] / / [id number] documented as of this encounter Visit Diagnoses [...] Power of Attor johann? No Care Teams Die Filer Relationship Specialty Start Date End Date Lina Can MD [address] [place] [address] [place] [address] PCP - General Family Medicine 08/06/22 documented as of this encounter
--- OUTSIDE RECORDS SUMMARY | 2024-05-09 12:13 | External Medical Summary | Summary of Care ---
Author Name Unknown Organization [facility] Address [address] [place] [address] Phone [phone] Care Team Providers Care Manager Communication Name Role Phone Lina Can MD Primary Care Prov ider Reason for Visit * Reason Onset Date Comments Precert Future 04/18/2024 annel Wan Encounter Details Date Type Department Care Team (Late st Contact Info) Description 04/18/2024 Telephone Hematology/Oncology Treatment, [place] [address] [place] [address] Chandni Almonte MD [address] [place] [address] Precert Future (annel Wan) Allergies Active Allergy [...] PM EST Order received for zirabev, lonsurf. [place] plan built. Waiting for auth. Consent signed [...] 04/23/2024 1:30 PM EST Telemedicine Palliative Medicine, [facility] [address] [facility] 5th [place] [address] Alisia Loo CRNP [address] [place] [address] 04/24/2024 1:30 PM EST Pharmacy Pharmacy Hematology Oncology [facility] [address] [place] [address] [facility], [facility] Hem/Onc [address] [place] [address] 05/06/2024 10:30 AM EST Laboratory Laboratory [facility] Nasreen [place] [address] [place] [address] Nasreen, Lab [address] [place] [address] 05/06/2024 11:30 AM EST Hem/Onc Treatment Hematology/Oncology Treatment, [place] [address] [place] [phone] Nasreen, Chair 1 Hem Onc [address] [place] [address] 05/14/2024 9:00 AM EST Office Visit Hematology/Oncology [facility] Nasreen [place] [address] [place] [phone] Chandni Almonte MD [address] [place] [address] 07/19/2024 11:30 AM EDT Office Visit Cardiology, [facility] [address] [place] [address] Ciro Saini, [address] [place] [address] 02/03/2025 1:00 PM EDT Office Visit Gynecology/Obstetrics [place] [address] [place] [address] BackerNelli CRNP [address] [place] [address] Scheduled Procedures Name Priority Associated Diagnoses Date/Ti [...] this encounter Medical Devices Implanted Type Area Exchange Clerk Device Identifier Shelf Expiration Date Model / Serial / Lot Power Port 8fr Sngl Lumen Plas - [id number] Implanted:Qty : 1 on 01/05/2023 by Jai Malcolm Jr., MD at OR [facility] Right: Chest CR BARD : PERIPHERAL VASCULAR [id number] 07/08/2024 [id number] / / [id number] documented as of this encounter Advance Directives [...] Power of Attor johann? No Care Teams Manager Communication Relationship Specialty Start Date End Date Lina Can MD [address] [place] [address] [place] [phone] PCP - General Family Medicine 08/06/22 documented as of this encounter
--- OUTSIDE RECORDS SUMMARY | 2024-05-09 12:13 | External Medical Summary | Summary of Care ---
Author Name Unknown Organization [facility] Address [address] [place] [address] Phone [phone] Care Team Providers Care Cigarette Vendor Name Role Phone Lina Can MD Primary Care Prov ider Reason for Visit * Reason Onset Date Comments Precert Future 04/19/2024 xgeva Encounter Details Date Type Department Care Team (Late st Contact Info) Description 04/19/2024 Telephone Hematology/Oncology Treatment, [place] [address] [place] [address] Chandni Almonte MD [address] [place] [address] Precert Future (xgeva) Allergies Active Allergy Reactions [...] Encounter - Tereza Gray RN - 04/22/2024 10:21 AM EST Referral entered. PFC: can you please review OOP cost estimate for this? (If high, may consider switching to zometa instead). Thanks! * Telephone Encounter - Tereza Gray RN - 04/22/2024 7:41 AM EST Message sent to [employer]. * Telephone Encounter - Tereza Gray RN - 04/19/2024 12:42 PM EST Order received for xMediaCoreva. [place] plan built and routed for signature. Waiting [...] Description 04/22/2024 1:00 PM EST Laboratory Laboratory [facility] [place] [address] [place] [phone] Ava, Lab Scenery [address] [place] [address] 04/22/2024 1:15 PM EST Hem/Onc Treatment Hematology/Oncology Treatment, [place] [address] [place] [address] Nasreen, Chair 4 Hem Onc Scene 200 [facility] [place] [address] 04/24/2024 1:30 PM EST Pharmacy Pharmacy Hematology Oncology [facility] [address] [place] [address] [facility] Hem/Onc [address] [place] [address] 05/14/2024 9:00 AM EST Office Visit Hematology/Oncology [facility] [place] [address] [place] [address] Chandni Almonte MD [address] [place] [address] 07/19/2024 11:30 AM EDT Office Visit Cardiology, [facility] [address] [place] [address] Ciro Saini DO [address] [place] [address] 02/03/2025 1:00 PM EDT Office Visit Gynecology/Obstetrics [facility] [address] [place] [address] Nelli Farrell CRNP [address] [place] [address] Scheduled Orders Name Type Priority Associated Diagnoses [...] this encounter Medical Devices Implanted Type Area Partition Setter Device Identifier Shelf Expiration Date Model / Serial / Lot Power Port 8fr Sngl Lumen Plas - [id number] Implanted:Qty : 1 on 01/05/2023 by Jai Malcolm Jr., MD at OR [facility] Right: Chest CR BARD : PERIPHERAL VASCULAR [id number] 07/08/2024 [id number] / / [id number] documented as of this encounter Results * PHOSPHORUS (04/18/2024 2:54 PM EST) Phosphorus 3.9 2.5 - 4.8 mg/dL 04/19/2024 1:32 PM EST [facility] 56-02 Blood Blood sample taken from central line / Unknown Central Line / Unknown 04/18/2024 2:54 PM EST 04/18/2024 2:58 PM EST Chandni Almonte MD LAB BLOOD ORDERABLES Fin al Result Performing Organization Address City/State/[facility] Co de Phone Number [facility] [address] [place] [address] documented in this encounter Visit Diagnoses Diagnosis [...] Power of Attor johann? No Care Teams Cigarette Vendor Relationship Specialty Start Date End Date Lina Can MD [address] [place] [address] [place] [address] PCP - General Family Medicine 08/06/22 documented as of this encounter
--- OUTSIDE RECORDS SUMMARY | 2024-05-09 12:13 | External Medical Summary ---
Author Name Unknown Address Unknown Organization K09:[facility] [address] [place] [address] Laboratory Report Ordering Provider Test Date Status DANNIELLE OLVERA 04/22/2024 13:09:25 Final Observation Date Value Abnormality Reference (Units ) Status Color of Urine by Auto 04/22/2024 13:09:25 Yellow Final Clarity, Urine 04/22/2024 13:09:25 Clear Final Glucose [Mass/volume] in Urine by Automated test strip 04/22/2024 13:09:25 Negative (mg/dL) Final Bilirubin.total [Presence] in Urine by Automated test strip 04/22/2024 13:09:25 Small Final Ketones [Mass/volume] in Urine by Automated test strip 04/22/2024 13:09:25 Trace (mg/dL) Final Specific gravity, Urine 04/22/2024 13:09:25 1.020 1.003-1.030 Final Hemoglobin [Presence] in Urine by Automated test strip 04/22/2024 13:09:25 Negative Final pH, Urine 04/22/2024 13:09:25 5.5 5.0-7.5 (Units) Final Protein [Mass/volume] in Urine by Automated test strip 04/22/2024 13:09:25 30 (mg/dL) Final Urobilinogen [Mass/volume] in Urine by Automated test strip 04/22/2024 13:09:25 1.0 (mg/dL) Final Nitrite [Presence] in Urine by Automated test strip 04/22/2024 13:09:25 Negative Negative Final Leukocyte esterase [Presence] in Urine by Automated test strip 04/22/2024 13:09:25 Small Abnormal Negative Final RBC, Urine 04/22/2024 13:09:25 0-2 0-2 (/HPF) Final WBC, Urine 04/22/2024 13:09:25 6-9 Abnormal 0-2 (/HPF) Final Bacteria [#/area] in Urine sediment by Microscopy high power field 04/22/2024 13:09:25 0-25 0-25 (/HPF) Final Hyaline casts, Urine 04/22/2024 13:09:25 1-4 Abnormal None (/LPF) Final Performing Location [facility] [address] [place] [address]
--- OUTSIDE RECORDS SUMMARY | 2024-05-09 12:13 | External Medical Summary | Summary of Care ---
Author Name Unknown Organization [facility] Address [address] [place] [address] Phone [phone] Care Team Providers Care Fire Alarm Operator Name Role Phone Lina Can MD Primary Care Prov ider Reason for Visit * Reason Comments NEW PATIENT Pain * Evaluate & Treat - Unlimited Visits (Within 3 days (urgent)) - Authorized Specialty Diagnoses / Procedures Referred By Contac t Referred To Contact Hospice and Palliative Medicine / Palliative Medicine Diagnoses Malignant neoplasm of sigmoid colon (HCC) Metastasis to bone (HCC) Chandni Almonte MD [address] [place] [address] Phone: tel: fax: Referral ID Status Reason Start Date Expiration Date Visits Requested Visits Authorized [id number] Authorized Specialty Services Required 04/22/2024 [id number] Encounter Details Date Type Department Care Team (Late st Contact Info) Description 04/23/2024 1:30 PM EST Telemedicine Palliative Medicine, [facility] [address] [facility] 5th Floor [place] [address] Alisia Loo CRNP [address] [place] [address] Cancer related pain*; Malignant neoplasm of sigmoid colon (HCC); Metastasis to bone (HCC); Goals of care, counseling/discussio n; Palliative care encounter Allergies Active Allergy Reactions Criticality Noted Date [...] documented in this encounter Progress Notes * Alisia Loo CRNP - 04/23/2024 1:30 PM EST Images from the original note were not included. Palliative Medicine Outpatient Consult Note TELEMEDICINE VISIT [facility], 5th Floor 400 [facility] [address] Name: Nyasia Hdez Date: 04/23/2024 Referring Provider: Reason for Consult: Goals of care; Pain and symptom management Patient accompanied by self, history obtained from patient Patient location: HOME. I was in a hospital or clinic location. After connecting through televideo,patient was verified with two unique identifiers. Patient (or authorized legal sales representative meats) was then informed that this was a Telemedicine visit and being conducted confidentially over secure lines. Methods to assure confidentiality were taken. Patient acknowledged consent and understanding of pr ivacy and security of the Telemedicine visit. The patient agreed to participate. HPI: Nyasia Hdez is a 69 year old female with a primary diagnosis of poorly differentiated adenocarcinoma of the sigmoid colon with mets to the cervix, uterine serosa, myometrium with lymphovascular invasion, R scapula, L5 vertebral body, L proximal femur. S/P robotic-assisted laparoscopic resection with coloproctostomy 11/2022. Received 10 cycles of FOLFOX with allergic reaction so chemo waschanged to FOLFIRI for last 2 cycles. Received last chemo on 4/16/24. PET/CT on 10/02/23 showed avidbone lesions. S/P XRT to R scapula, lumbar spine, and L proximal femur on 11/30/22. PET/CT 03/27/24 - further progression mainly in the bones. Plan to start Lonsurf (3rd line chemo) on 04/28/24. Today, biggest complaint is pain. See below for details. Patient is well aware of the fact that hercancer is worsening and has progressed through two lines of chemo. She is anxious to get started onthe third line (Lonsurf). She also has a rad/onc consultation coming up at [facility] next week. She is going to sign a living will/POA at the criminal attorney's office tomorrow - she will m dayna sure there is medical directives in it. She would want her daughter, Dasha, to be her decision maker if needed. Patient is aware that we will not be able to prescribe narcotics for her until we see her in person. We will send recommendations to Dr. Wiley today, so he can send Rx until we are able to see her [facility] office. RAMILA will need signed. Patient was assessed for opioid risk of misuse or diversion - very low risk. No history of substance use disorder. Palliative symptoms: Pain: Location: In L leg radiating to right below the knee, as well as bilateral shoulders/arms. Currently taking: oxycodone 5-10mg, total of about 5 tablets per day. Quality:deep ache Severity: 8/10 at worst, 5/10 after oxycodone. Oxycodone only lasts about 2-3 hours and makes her incredible sleepy. Duration:several months, but has been worsening since [place]. 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 No pins and needles sensation Nausea/Vomiting: occasional nausea that is relieved by Zofran Appetite: poor due to pain Constipation: occasionally. Is taking miralax. She will add senna Confusion: no Sleep issues: no Dyspnea: no Mood issues: no Falls: no Other: no Prior relevant medication trials: oxycodone 5-10mg Functional Status: - Palliative Performance Scale: 80% - Activities of Daily Living: (bolded items indicate areas of independence) 6/6 BADL (transfer, toilet, continence, bathe, dress self, feed self) 7/7 IADL (meds, transport, telephone, shop, housekeeping, meal prep, money management) - Ambulates: independently without assistive device SHx: Family Support: has been staying her with daughter and son. Has 3 children total - two sons and a daughter. PHYSICAL EXAMINATION: Constitutional: no acute distress HENT: normocephalic, atraumatic. Eyes: anicteric, sclera and conjunctiva normal. Neck: no stridor Chest: normal respiratory effort Extremities: no edema Neuro: alert, oriented to person, place, and time Psych: normal mood and affect Data Review: External notes reviewed: - Reviewed notes from hem/onc 04/18/24 - plan to start Lonsurg as third line chemo, goal is palliative. Lab / Imaging Results: PET/CT 03/27/24 report: "PET SCAN: Head / Neck: No abnormal soft tissue uptake. Chest: No abnormal soft tissue uptake. Abdomen: No abnormal soft tissue uptake. Pelvis: No abnormal soft tissue uptake. Musculoskeletal / Other: Multiple FDG avid osseous metastatic lesions are present which have significantly worsened since the previous examination. These are present throughout the axial and proximalappendicular skeleton. Ammunition Storekeeper lesion in the posterior left ilium has a max SUV of 16.6. CT SCAN: Head / Neck: No acute process identified. Chest: MediPort present in the right chest with tip terminating in the right atrium. Atherosclerotic calcifications are present. Prior right mastectomy. Atelectatic changes within both lungs. Small nodule along the right major fissure, stable from the previous examination. Calcified granuloma in the left lower lobe. Abdomen: Atherosclerotic calcifications are present extensively throughout the aorta and its branches. Pelvis: Anastomotic sutures present in the rectum. Prior hysterectomy. No masses or lymphadenopathy. Atherosclerotic calcifications throughout the aorta and its branches. Musculoskeletal / Other: Degenerative changes are present throughout the bony structures with convex left scoliosis of the lumbar spine. Osseous metastatic disease as above. IMPRESSION IMPRESSION Significant interval worsening of FDG avid osseous metastatic disease." Discussion with other team members: I discussed patient with Dr. Wiley about plan to start MS Contin 15mg BID. Decision-making Capacity: Does Patient have Decisional Capacity? Yes Does Patient have a Healthcare Agent? Daughter Dasha. Advanced Care Planning: AD: planning to sign at criminal attorney's office tomorrow POLST: no ASSESSMENT/PLAN: Nyasia Hdez is a/an 69 year old female referred for consultation to Palliative Medicine with the primary diagnosis of: Cancer related pain - L leg and bilateral shoulders/arms Metastatic adenocarcinoma of the sigmoid colon with mets to cervix, uterus, myometrium and many osseous mets Goals of care - continue cancer directed treatment, get pain under control. Recommendations: Discussed options for pain management: Non-opioid medications like gabapentin Adding a long-acting narcotic to give better, steady-state pain management. Patient is in agreementwith starting MS Contin. Could still consider adding gabapentin in the future if needed. For pain, recommend starting MS Contin 15mg BID (her current OME with oxycodone is about 37.5mg) RAMILA will need signed at in-person visit. Assessed for substance use disorder - very low risk. No history of substance abuse reported. Patient would like to be on as few narcotics/pain medications as possible. For bowels, continue miralax daily and add senna 1-2 tabs at bedtime. ornamental iron worker apprentice or HH or Behavioral health referral not needed at this time. Follow up nurse call next week to check on pain. [facility] Thank you for this consult. We appreciate the opportunity to take part in the care of your patient. Note routed back to referring provider and PCP Lina Young MD I spent a total of 66 minutes on the date of service in preparation, delivery, and documentation ofthe care provided to Nyasia Hdez excluding any time spent in the performance of separately billed services. [facility] [phone] documented in this encounter Plan of Treatment Upcoming Encounters Date Type Department Care Team (Late st Contact Info) Description 04/24/2024 1:30 PM EST Pharmacy Pharmacy Hematology Oncology [place] [address] [place] [address] [facility] Hem/Onc [address] [place] [address] 04/29/2024 9:30 AM EST Scheduled Telephone Palliative Medicine, [facility] [address] [facility] 5th [place] [address] Me, Nurse Palliative Medicine [facility] 5th [facility] [address] 05/06/2024 10:30 AM EST Laboratory Laboratory [facility] [place] [address] [place] [phone] Nasreen, Lab Scenery [address] [place] [address] 05/06/2024 11:30 AM EST Hem/Onc Treatment Hematology/Oncology Treatment, [place] [address] [place] [address] Nasreen, Chair 1 Hem Onc Scenery [address] [place] [address] 05/14/2024 9:00 AM EST Office Visit Hematology/Oncology [facility] [place] [address] [place] [phone] Chandni Almonte MD [address] [place] [address] 07/19/2024 11:30 AM EDT Office Visit Cardiology, [facility] [address] [place] [address] Ciro Saini DO [address] [place] [address] 02/03/2025 1:00 PM EDT Office Visit Gynecology/Obstetric s [facility] [address] [place] [id number] Nelli Farrell CRNP [address] [place] [address] Scheduled Referrals Name Type Priority Associated Diagnoses [...] this encounter Medical Devices Implanted Type Area Heavy Duty Truck Mechanic Device Identifier Shelf Expiration Date Model / Serial / Lot Power Port 8fr Sngl Lumen Plas - [id number] Implanted:Qty : 1 on 01/05/2023 by Jai Malcolm Jr., MD at [facility] Right: Chest CR BARD : PERIPHERAL VASCULAR [id number] 07/08/2024 [id number] / / [id number] documented as of this encounter Visit Diagnoses Diagnosis Cancer related pain- Primary Neoplasm related pain (acute) (chronic) Malignant neoplasm of sigmoid colon (HCC) Malignant neoplasm of sigmoid colon Metastasis to bone (HCC) Secondary malignant neoplasm of bone and bone marrow Goals of care, counseling/discussion Other specified counseling Palliative care encounter Encounter for palliative care documented in this encounter Advance Directives * [...] Power of Attor johann? No Care Teams Fire Alarm Operator Relationship Specialty Start Date End Date Lina Can MD [address] [place] [address] [place] [phone] PCP - General Family Medicine 08/06/22 documented as of this encounter
--- OUTSIDE RECORDS SUMMARY | 2024-05-09 12:13 | External Medical Summary | Summary of Care ---
Author Name Unknown Organization [facility] Address [address] [place] [address] Phone [phone] Care Team Providers Care Veneer Jointer Name Role Phone Lina Can MD Primary Care Prov ider Encounter Details Date Type Department Care Team (Late st Contact Info) Description 04/19/2024 Orders Only Hematology/Oncology [facility] [place] [address] [facility] [place] [phone] Heriberto Wiley MD [address] [place] [address] Allergies Active Allergy Reactions Criticality Noted Date [...] Nikita Ramirez RN documented in this encounter Plan of Treatment Upcoming Encounters Date Type Department Care Team (Late st Contact Info) Description 04/22/2024 1:00 PM EST Laboratory Laboratory [facility] [place] [address] [place] [phone] Nasreen, Lab [facility] [address] [place] [address] 04/22/2024 1:15 PM EST Hem/Onc Treatment Hematology/Oncology Treatment, [place] [address] [place] [phone] Nasreen, Chair 4 Hem Onc [facility] [address] [place] [address] 04/24/2024 1:30 PM EST Pharmacy Pharmacy Hematology Oncology [place] [address] [place] [address] [facility] Hem/Onc [address] [place] [address] 05/14/2024 9:00 AM EST Office Visit Hematology/Oncology [facility] [place] [address] [place] [phone] Chandni Almonte MD [address] [place] [address] 07/19/2024 11:30 AM EDT Office Visit Cardiology, [facility] [address] [place] [address] Ciro Saini DO [address] [place] [address] 02/03/2025 1:00 PM EDT Office Visit Gynecology/Obstetrics [facility] [address] [place] [phone] Nelli Farrell CRNP [address] [place] [address] Scheduled Procedures Name Priority Associated Diagnoses Date/Ti [...] this encounter Medical Devices Implanted Type Area Seam Stayer Device Identifier Shelf Expiration Date Model / Serial / Lot Power Port 8fr Sngl Lumen Plas - [id number] Implanted:Qty : 1 on 01/05/2023 by Jai Malcolm Jr., MD at OR [facility] Right: Chest CR BARD : PERIPHERAL VASCULAR [id number] 07/08/2024 [id number] / / [id number] documented as of this encounter Advance Directives [...] Power of Attor johann? No Care Teams Veneer Jointer Relationship Specialty Start Date End Date Lina Can MD [address] [place] [address] [place] [address] PCP - General Family Medicine 08/06/22 documented as of this encounter
--- OUTSIDE RECORDS SUMMARY | 2024-05-09 12:13 | External Medical Summary | Summary of Care ---
Author Name Unknown Organization [facility] Address [address] [place] [address] Phone [phone] Care Team Providers Care Excavator Operator Name Role Phone Lina Can MD Primary Care Prov ider Reason for Referral * Evaluate & Treat - Unlimited Visits (Within 3 days (urgent)) - Authorized Specialty Diagnoses / Procedures Referred By Contac t Referred To Contact Hospice and Palliative Medicine / Palliative Medicine Diagnoses Malignant neoplasm of sigmoid colon (HCC) Metastasis to bone (HCC) Chandni Almonte MD [facility] [place] [address] Phone: tel: fax: Referral ID Status Reason Start Date Expiration Date Visits Requested Visits Authorized [id number] Authorized Specialty Services Required 04/22/2024 999 [id number] Question Answer Referral Priority Within 3 days (urgent) Where should this appointment be scheduled? [facility] Reason for Referral: Cancer Palliative Medicine To Address: Pain & Symptom Management Referral Location Office Reason for Visit * Reason Onset Date Comments Information 04/22/2024 Encounter Details Date Type Department Care Team (Late st Contact Info) Description 04/22/2024 Refill Hematology/Oncology Treatment, [place] [address] [facility] [place] [phone] Chandni Almonte MD [address] [facility] [address] Malignant neoplasm of sigmoid colon (HCC)*; Metastasis [...] Tablet before bedtime. 60 Tablet 5 Active documented as of [...] 11/25/2022 5:16 PM EDNikita Mccormack RN * Do you have difficulty dressing [...] encounter Miscellaneous Notes * Addendum Note - Zackery Wiley MD - 04/23/2024 4:25 PM ESTAddended by: ZACKERY WILEY on: 04/23/2024 04:25 PM Modules accepted: Orders * Telephone Encounter - Zackery Wiley MD - 04/23/2024 4:25 PM EST E-prescribed Zackery Wiley MD Hem/Onc * Addendum Note - Saud Gray RN [...] we help write new rx for MS Jose until patient can be seen in person [...] 1:30 PM EST Pharmacy Pharmacy Hematology Oncology [facility] [place] [address] [place] [address] [facility] Hem/Onc [address] [place] [address] 04/29/2024 9:30 AM EST Scheduled Telephone Palliative Medicine, [facility] [address] [facility] 5th Floor [place] [address] [place], Nurse Palliative Medicine [facility] 5th [address] [place] [address] 05/06/2024 10:30 AM EST Laboratory Laboratory [facility] [place] [address] [place] [address] Nasreen, Lab Scenery [address] [facility] [place] [address] 05/06/2024 11:30 AM EST Hem/Onc Treatment Hematology/Oncology Treatment, [place] [address] [place] [address] Nasreen, Chair 1 Hem Onc Scenery [address] [place] [address] 05/14/2024 9:00 AM EST Office Visit Hematology/Oncology [facility] [place] [address] [place] [address] Chandni Almonte MD [address] [place] [address] 07/19/2024 11:30 AM EDT Office Visit Cardiology, [facility] [place] [address] Ciro Saini, [address] [place] [address] 02/03/2025 1:00 PM EDT Office Visit Gynecology/Obstetric s [place] [facility] [address] [place] [address] [place], SANDRA Murillo [address] [place] [address] Scheduled Referrals Name Type Priority Associated Diagnoses [...] this encounter Medical Devices Implanted Type Area Professor Of Poultry Science Device Identifier Shelf Expiration Date Model / Serial / Lot Power Port 8fr Sngl Lumen Plas - [id number] Implanted:Qty : 1 on 01/05/2023 by Jai Malcolm Jr., MD at OR [facility] Right: Chest CR BARD : PERIPHERAL VASCULAR [id number] 07/08/2024 [id number] / / [id number] documented as of this encounter Visit Diagnoses [...] Power of Attor johann? No Care Teams Excavator Operator Relationship Specialty Start Date End Date Lina Can MD [address] [place] [address] [place] [address] PCP - General Family Medicine 08/06/22 documented as of this encounter
--- OUTSIDE RECORDS SUMMARY | 2024-05-09 12:13 | External Medical Summary | Summary of Care ---
Author Name Unknown Organization [facility] Address [address] [place] [address] Phone [phone] Care Team Providers Care Corporate Development Manager Name Role Phone Lina Can MD Primary Care Prov ider Reason for Visit * Reason Onset Date Comments Precert Future 04/19/2024 xgeva Encounter Details Date Type Department Care Team (Late st Contact Info) Description 04/19/2024 Telephone Hematology/Oncology Treatment, [place] [address] [place] [address] Chandni Almonte MD [address] [place] [address] Precert Future (xgeva) Allergies Active Allergy Reactions [...] 04/22/2024 7:41 AM EST Message sent to [employer]. * Telephone Encounter - Tereza Gray RN - 04/19/2024 12:42 PM EST Order received for xgeva. Creola plan built and routed for signature. Waiting [...] Description 04/22/2024 1:00 PM EST Laboratory Laboratory [address] [place] [phone] Nasreen Lab [place] [address] Jean Jordan [facility] [place] [address] 04/22/2024 1:15 PM EST Hem/Onc Treatment Hematology/Oncology Treatment, [place] [address] [place] [phone] Nasreen Chair 4 Hem Onc [facility] [address] [place] [address] 04/24/2024 1:30 PM EST Pharmacy Pharmacy Hematology Oncology [address] [address] [facility] [place] Hem/Onc [address] [place], [place] [address] 05/14/2024 9:00 AM EST Office Visit Hematology/Oncology [facility] [address] [place] [phone] Chandni Almonte MD [address] [place] [address] 07/19/2024 11:30 AM EDT Office Visit Cardiology, [facility] [address] [facility] [place] [address] Ciro Saini DO [address] [place] [address] 02/03/2025 1:00 PM EDT Office Visit Gynecology/Obstetrics [facility] [address] [place] [address] Nelli Farrell CRNP [address] [place] [address] Scheduled Orders Name Type Priority Associated Diagnoses [...] this encounter Medical Devices Implanted Type Area Data Governance Consultant Device Identifier Shelf Expiration Date Model / Serial / Lot Power Port 8fr Sngl Lumen Plas - [id number] Implanted:Qty : 1 on 01/05/2023 by Jai Malcolm Jr., MD at [facility] Right: Chest CR BARD : PERIPHERAL VASCULAR [id number] 07/08/2024 [id number] / / [id number] documented as of this encounter Results * PHOSPHORUS (04/18/2024 2:54 PM EST) Phosphorus 3.9 2.5 - 4.8 mg/dL 04/19/2024 1:32 PM EST [facility]02 Blood Blood sample taken from central line / Unknown Central Line / Unknown 04/18/2024 2:54 PM EST 04/18/2024 2:58 PM EST us Chandni Almonte MD LAB BLOOD ORDERABLES Fin al Result [facility] [place] [address] documented in this encounter Visit [...] Power of Attor johann? No Care Teams Corporate Development Manager Relationship Specialty Start Date End Date Lina Can MD [address] [place] [address] [place] [phone] PCP - General Family Medicine 08/06/22 documented as of this encounter
--- OUTSIDE RECORDS SUMMARY | 2024-05-09 12:13 | External Medical Summary | Summary of Care ---
Author Name Unknown Organization [facility] Address [address] [place] [address] Phone [phone] Care Team Providers Care Well Service Floor Worker Name Role Phone Lina Can MD Primary Care Prov ider Reason for Visit * Reason Comments Chemotherapy C6/D1 - FOLFIRI/Zira antonina * Episode Based Medications (Routine) - Closed Specialty Diagnoses / Procedures Referred By Luc king Referred To Contact Diagnoses Encounter for antineoplastic chemotherapy Malignant neoplasm of sigmoid colon (HCC) Procedures [place] LEUCOVORIN CALCIUM INJECTION TN PALONOSETRON HCL [place] FLUOROURACIL INJECTION TN IRINOTECAN INJECTION TN INJ., ZIRABEV, 10 MG Chandni Almonte MD [address] [place] [address] [place] [address] Phone: tel: fax: Hematology/Oncology Treatment, [address] [address] Phone: tel: fax: Referral ID Status Reason Start Date Expiration Date Visits Re quested Visits Authorized [id number] Closed 11/22/2023 11/21/[phone] Encounter Details Date Type Department Care Team (Latest Contact Info) Description 03/19/2024 1:00 PM EST Hem/Onc Treatment Hematology/Oncolog y Treatment, [address] [address] Nasreen, Chair 1 Hem Onc [place] [address] [place] [address] Encounter for antineoplastic chemotherapy*; Malignant neoplasm of [...] morning. 30 Tablet 1 03/11/20 24 Active Pegfilgrastim-cb qv 6 MG/0.6ML Subcutaneous Solution Prefilled Syringe (Udenyca)Indicat ions:Malignant neoplasm of sigmoid colon (HCC),Metastasis to bone (HCC),Chemothera py-induced neutropenia (HCC) Inject 6 mg (1 syringe) under the skin 24 hours after FOLFOX pump disconnect every 2 weeks. 1.2 mL 5 10/10/202 4 12:25 PM EDT 01/08/20 24 024 Discontin ued(Medic ation List Clean Up) traMADol HCl 50 MG Oral Tablet (Ultram)Indicati ons:Malignant neoplasm of sigmoid colon (HCC) Take 1 Tablet by mouth every 6 hours as needed for Pain, Moderate. 30 Tablet 02/15/20 24 025 Discontin ued(Refil l) Neulasta 6 MG/0.6ML Subcutaneous Solution Prefilled Syringe (Pegfilgrastim)I ndications:Juan R mcclure neoplasm of sigmoid colon (HCC),Prevention of chemotherapy-ind uced neutropenia Administer 6 mg subq 24 hours after chemo pump disconnect. 1.2 mL 11 4 11:31 AM EST 02/22/20 24 024 Discontin ued(Medic ation List Clean Up) Nyvepria 6 MG/0.6ML Subcutaneous Solution Prefilled Syringe (Pegfilgrastim-a pgf)Indications: Malignant neoplasm of sigmoid colon (HCC),Prevention of chemotherapy-ind uced neutropenia Administer 6mg subq 24 hours after chemo pump disconnect 1.2 mL 11 4 1:10 PM EST 02/23/20 24 024 Discontin ued(Medic ation List Clean Up) Fluorouracil (5-Fu) 4,000 mg in NSS 138 mL infusionIndicati ons:Malignant neoplasm of sigmoid colon (HCC) Administer 4,000 mg at 3 mL/hr over 46 hours intravenously continuous. 069[address] mg 4 3:37 PM EST 03/14/20 24 024 Discontin ued(Medic ation List Clean Up) documented as of this encounter (statuses as of 04/19/2024) Active Problems Problem Noted Date Diagnosed Date New onset atrial fibrillation 11/02/2023 History of [...] documented in this encounter Nursing Notes * Juliann Payne RN - 03/19/2024 4:47 PM EST Infusion complete. Patient tolerated well. Port remains accessed for home 5 FU infusion. Dressing intact. + blood return. 5 FU infusion connected via CADD pump and pump running. Goals: Patient will remain free from injury. Possible barriers to meeting goals: ambulating with IV pole Stability of the patient: Moderately stable - low risk of patient condition declining or worsening Summary regarding today's goals: Met: Patient remained free from harm/injury during treatment. Patient left facility in stable condition. * Darlyn Hollins RN - 03/19/2024 3:26 PM EST Chair 1. Port accessed, no issues. Patient saw SANDRA Frederick today -- see OV note for details. Patient had complained about taking 12 mg Decadron with tx days and how it affects her sleep and she cannot sleep until 2 days later. She would like to try taking 6 mg instead today -- RN to give half dose Decadron today to see how patient feels after this treatment. Chemotherapy/Immunotherapy agents: ZIRABEV and FOLFIRI (leucovorin, 5-FU, & irinotecan) Consent for chemotherapy drug treatment complete, dated, and signed? yes, date - 11/22/2023 Treatment lab parameters met? Yes Has treatment weight changed > than 10%? No Treatment preauthorized? Yes VITALS There were no vitals filed for this visit. BP Readings from Last 2 Encounters: 03/19/24 138/79 02/27/24 131/80 Pulse Readings from Last 2 Encounters: 03/19/24 97 02/27/24 83 Resp Readings from Last 2 Encounters: 02/27/24 18 01/30/24 16 SpO2 Readings from Last 2 Encounters: 03/19/24 95% 02/27/24 99% Temp Readings from Last 2 Encounters: 03/19/24 36.5 C (97.7 F) (Tympanic) 02/27/24 36.7 C (98.1 F) Urine protein: NEGATIVE, blood: trace Patient education completed for treatment? Yes Blood transfusion consent signed and complete? NA Return appointment scheduled? Yes Patient had provider visit today? Yes - Ok to release order and treat per provider Functional Status: Functional status at today's visit: [...] potential carrillo while using the heat function. Safety and Risk for Injury Patient will remain free from injury. Ensure appropriate safety devices are available. Provide and maintain safe environment. documented in this encounter Plan of Treatment Upcoming Encounters Date Type Department Care Team (Late st Contact Info) Description 04/22/2024 1:00 PM EST Laboratory Laboratory [facility] [place] 200 [facility] [place] [phone] [place], Lab [facility] 200 [facility] [place] [address] 04/22/2024 1:15 PM EST Hem/Onc Treatment Hematology/Oncology Treatment, [place] [address] [place] [phone] Nasreen, Chair 4 Hem Onc [facility] 200 [facility] [place] [address] 05/14/2024 9:00 AM EST Office Visit Hematology/Oncology [facility] [address] [place] [address] Chandni Almonte MD [address] [place], [place] [address] 07/19/2024 11:30 AM EDT Office Visit Cardiology, [facility] [address] [place] [address] Ciro Saini DO [address] [place] [address] 02/03/2025 1:00 PM EDT Office Visit Gynecology/Obstetrics [facility] [address] [place] [address] Nelli Farrell CRNP [address] [place] [address] Scheduled Procedures Name Priority Associated Diagnoses Date/Ti [...] this encounter Medical Devices Implanted Type Area Transportation Director Device Identifier Shelf Expiration Date Model / Serial / Lot Power Port 8fr Sngl Lumen Plas - [id number] Implanted:Qty : 1 on 01/05/2023 by Jai Malcolm Jr., MD at OR [facility] Right: Chest CR BARD : PERIPHERAL VASCULAR [id number] 07/08/2024 [id number] / / [id number] documented as of this encounter Visit Diagnoses Diagnosis Encounter for antineoplastic chemotherapy- Primary Malignant neoplasm of sigmoid colon (HCC) Malignant neoplasm of sigmoid colon documented in this encounter Administered Medications Inactive Administered Medications - up to 3 most recent administrations Medication Order MAR Action Action Date Dose Rate Site Atropine sulfate inj 0.4 mg 0.4 mg, IV Push, ONCE, On Mon03/19/24 at 1345, For 1 dose, Administer prior to irinotecan.Indications:Enc ounter for antineoplastic chemotherapy,Malignant neoplasm of sigmoid colon (HCC) Given 03/19/2024 3:01 PM EST 0.4 mg bevaCIZumab-bvzr (Zirabev) 300 mg in NSS 100 mL infusion 300 mg (rounded from 291.5 mg = 5 mg/kg 58.3 kg Treatment plan Recorded weight), IV Piggyback, ONCE, 1 dose, On Mon03/19/24 at 1345, Administer over 30 Minutes, Flush with NSS only!Indications:Encounter for antineoplastic chemotherapy,Malignant neoplasm of sigmoid colon (HCC) Start Infusion 03/19/2024 2:12 PM EST 300 mg 210 mL/hr dexAMETHasone (Decadron) tab 12 mg 12 mg, Oral, ONCE, On Mon03/19/24 at 1345, For 1 doseIndications:Encounter for antineoplastic chemotherapy,Malignant neoplasm of sigmoid colon (HCC) Given 03/19/2024 1:31 PM EST 6 mg Fluorouracil (5-Fu) 4,000 mg for Home Infusion 4,000 mg (rounded from 3,792 mg = 2,400 mg/m2 1.58 m2 Treatment Plan BSA from Recorded weight), Intravenous, Administer over 46 Hours, Home Infusion Pharmacy to specify base solution and volume., ONCE, 1 dose, On Mon03/19/24 at 1115Indications:Encounter for antineoplastic chemotherapy,Malignant neoplasm of sigmoid colon (HCC) Start Infusion 03/19/2024 4:40 PM EST 4,000 mg 3 mL/hr Fluorouracil (5-Fu) inj 650 mg 650 mg (rounded from 632 mg = 400 mg/m2 1.58 m2 Treatment Plan BSA from Recorded weight), IV Push, ONCE, 1 dose, On Mon03/19/24 at 1345Indications:Encounter for antineoplastic chemotherapy,Malignant neoplasm of sigmoid colon (HCC) Given 03/19/2024 4:35 PM EST 650 mg irinotecan HCl (Camptosar) 280 mg in D5W 500 mL infusion 280 mg (rounded from 284.4 mg = 180 mg/m2 1.58 m2 Treatment Plan BSA from Recorded weight), IV Piggyback, ONCE, 1 dose, On Mon03/19/24 at 1345, Administer over 90 Minutes, PROTECT FROM LIGHTIndications:Encounter for antineoplastic chemotherapy,Malignant neoplasm of sigmoid colon (HCC) Start Infusion 03/19/2024 3:04 PM EST 280 mg 349.33 mL/hr leucovorin calcium 650 mg in D5W 250 mL INFUSION 650 mg (rounded from 632 mg = 400 mg/m2 1.58 m2 Treatment Plan BSA from Recorded weight), IV Piggyback, ONCE, 1 dose, On Mon03/19/24 at 1345, Administer over 90 Minutes, Before 5-FUIndications:Encounter for antineoplastic chemotherapy,Malignant neoplasm of sigmoid colon (HCC) Start Infusion 03/19/2024 3:02 PM EST 650 mg 170 mL/hr NSS infusion Intravenous, at 50 mL/hr, PRN, Starting on Mon03/19/24 at 0830, Until Mon03/19/24 at 205, Maintenance lineIndications:Encounter for antineoplastic chemotherapy,Malignant neoplasm of sigmoid colon (HCC) Start Infusion 03/19/2024 1:32 PM EST 50 mL/hr Palonosetron (Aloxi) inj SOLN 0.25 mg 0.25 mg, IV Push, ONCE, On Mon03/19/24 at 1345, For 1 dose, Restricted per GHS antiemetic guidelinesIndications:Enco unter for antineoplastic chemotherapy,Malignant neoplasm of sigmoid colon (HCC) Given 03/19/2024 1:31 PM EST 0.25 mg sodium chloride 0.9 % flush central line 10 mL 10 mL, IV Push, PRN Other, IV Flush, Starting on Mon03/19/24 at 1300, Until Mon03/19/24 at 2051, For 24 hours, Do not flush if lock, PICC, or central line not in place; IV infusing or unable to flush.Indications:Encounte r for antineoplastic chemotherapy,Malignant neoplasm of sigmoid colon (HCC) Given 03/19/2024 4:35 PM EST 10 mL documented in this encounter Advance Directives * [...] Power of Attor johann? No Care Teams Well Service Floor Worker Relationship Specialty Start Date End Date Lina Can MD [address] [place] [address] [place] [phone] PCP - General Family Medicine 08/06/22 documented as of this encounter
--- OUTSIDE RECORDS SUMMARY | 2024-05-09 12:13 | External Medical Summary | Summary of Care ---
Author Name Unknown Organization [facility] Address [address] [place] [address] Phone [phone] Care Team Providers Care Train Engineer Name Role Phone Lina Can MD Primary Care Prov ider Reason for Referral * Evaluate & Treat - Unlimited Visits (Within 3 days (urgent)) - Authorized Specialty Diagnoses / Procedures Referred By Contac t Referred To Contact Hospice and Palliative Medicine / Palliative Medicine Diagnoses Malignant neoplasm of sigmoid colon (HCC) Metastasis to bone (HCC) Chandni Almonte MD [address] [place] [address] Phone: tel: fax: Referral ID Status Reason Start Date Expiration Date Visits Requested Visits Authorized [id number] Authorized Specialty Services Required 04/22/[phone] Question Answer Referral Priority Within 3 days (urgent) Where should this appointment be scheduled? Xi Reason for Referral: Cancer Palliative Medicine To Address: Pain & Symptom Management Referral Location Office Reason for Visit * Reason Onset Date Comments Information 04/22/2024 Encounter Details Date Type Department Care Team (Late st Contact Info) Description 04/22/2024 Telephone Hematology/Oncology Treatment, [place] [address] [place] [facility] [place] [phone] Chandni [facility]monte [facility] 200 [facility] [address] Information Allergies Active Allergy Reactions Criticality Noted Date [...] Encounter - Tereza Gray RN - 04/22/2024 2:09 PM EST [...] Team (Late st Contact Info) Description 04/24/2024 10:30 AM EST Telemedicine Palliative Medicine [facility] [phone] Bianca Ruiz MD [address] [place] [address] [place] [address] 04/24/2024 1:30 PM EST Pharmacy Pharmacy Hematology Oncology [facility] [address] [place] [address] [facility] [place] Hem/Onc [address] [place] [address] 05/14/2024 9:00 AM EST Office Visit Hematology/Oncology [facility] [phone] Chandni Almonte MD 200 [facility] [address] 07/19/2024 11:30 AM EDT Office Visit Cardiology, [facility] [address] [place] [address] Ciro Saini DO [address] [place] [address] 02/03/2025 1:00 PM EDT Office Visit Gynecology/Obstetrics [facility] [address] [place] [phone] Nelli Farrell CRNP [address] [place] [address] Scheduled Procedures Name Priority Associated Diagnoses Date/Ti [...] this encounter Medical Devices Implanted Type Area Health Record Technician Device Identifier Shelf Expiration Date Model / Serial / Lot Power Port 8fr Sngl Lumen Plas - [id number] Implanted:Qty : 1 on 01/05/2023 by Jai Malcolm Jr., MD at OR [facility] Right: Chest CR BARD : PERIPHERAL VASCULAR [id number] 07/08/2024 [id number] / / [id number] documented as of this encounter Visit Diagnoses [...] Power of Attor johann? No Care Teams Train Engineer Relationship Specialty Start Date End Date Lina Can MD [address] [place] [address] [place] [phone] PCP - General Family Medicine 08/06/22 documented as of this encounter
--- OUTSIDE RECORDS SUMMARY | 2024-05-09 12:14 | External Medical Summary | Summary of Care ---
Author Name Unknown Organization [facility] Address [address] [place] [address] Phone [phone] Care Team Providers Care Day Camp Counselor Name Role Phone Lina Can MD Primary Care Prov ider Reason for Visit * Reason Comments Chemotherapy C6/D1 - FOLFIRI/Zira antonina * Episode Based Medications (Routine) - Closed Specialty Diagnoses / Procedures Referred By Luc king Referred To Contact Diagnoses Encounter for antineoplastic chemotherapy Malignant neoplasm of sigmoid colon (HCC) Procedures [place] LEUCOVORIN CALCIUM INJECTION [place] PALONOSETRON HCL [place] FLUOROURACIL INJECTION [place] IRINOTECAN INJECTION [place] INJ., ZIRABEV, 10 MG Chandni Almonte MD [address] [place] [address] [place] [address] Phone: tel: fax: Hematology/Oncology Treatment, [address] [address] Phone: tel: fax: Referral ID Status Reason Start Date Expiration Date Visits Re quested Visits Authorized [id number] Closed 11/22/2023 11/21/[phone] Encounter Details Date Type Department Care Team (Latest Contact Info) Description 03/19/2024 1:00 PM EST Hem/Onc Treatment Hematology/Oncolog y Treatment, [address] [address] Nasreen, Chair 1 Hem Onc [place] [address] [place] [address] Encounter for antineoplastic chemotherapy*; Malignant neoplasm of [...] 3 mL/hr over 46 hours intravenously continuous. [address] mg 4 3:37 PM EST 03/14/20 24 [...] Description 04/22/2024 1:00 PM EST Laboratory Laboratory [facility] [place] 200 [facility] [place] [phone] [place], Lab [facility] 200 [facility] [place] [address] 04/22/2024 1:15 PM EST Hem/Onc Treatment Hematology/Oncology Treatment, [place] [address] [place] [phone] Nasreen, Chair 4 Hem Onc [facility] 200 [facility] [place] [address] 05/14/2024 9:00 AM EST Office Visit Hematology/Oncology [facility] [address] [place] [address] Chandni Almonte MD [address] [place], [place] [address] 07/19/2024 11:30 AM EDT Office Visit Cardiology, [facility] [address] [place] [address] Ciro Saini DO [address] [place] [address] 02/03/2025 1:00 PM EDT Office Visit Gynecology/Obstetrics [facility] [address] [place] [address] Nelli Farrell CRNP [address] [place] [address] Scheduled Procedures Name Priority Associated Diagnoses Date/Ti [...] this encounter Medical Devices Implanted Type Area Oil Exploration Engineer Device Identifier Shelf Expiration Date Model / Serial / Lot Power Port 8fr Sngl Lumen Plas - [id number] Implanted:Qty : 1 on 01/05/2023 by Jai Malcolm Jr., MD at OR [facility] Right: Chest CR BARD : PERIPHERAL VASCULAR [id number] 07/08/2024 [id number] / / [id number] documented as of this encounter Visit Diagnoses [...] Power of Attor johann? No Care Teams Day Camp Counselor Relationship Specialty Start Date End Date Lina Can MD [address] [place] [address] [place] [phone] PCP - General Family Medicine 08/06/22 documented as of this encounter
--- OUTSIDE RECORDS SUMMARY | 2024-05-09 12:14 | External Medical Summary | Summary of Care ---
Author Name Unknown Organization [facility] Address [address] [place] [address] Phone [phone] Care Team Providers Care Core Filer Name Role Phone Lina Can MD Primary Care Prov ider Reason for Visit * Reason Comments Chemotherapy C6/D1 - FOLFIRI/Zira antonina * Episode Based Medications (Routine) - Closed Specialty Diagnoses / Procedures Referred By Luc king Referred To Contact Diagnoses Encounter for antineoplastic chemotherapy Malignant neoplasm of sigmoid colon (HCC) Procedures [place] LEUCOVORIN CALCIUM INJECTION [place] PALONOSETRON HCL SC FLUOROURACIL INJECTION SC IRINOTECAN INJECTION SC INJ., ZIRABEV, 10 MG Chandni Almonte MD [address] [place] [address] [place] [address] Phone: tel: fax: Hematology/Oncology Treatment, [address] [address] Phone: tel: fax: Referral ID Status Reason Start Date Expiration Date Visits Re quested Visits Authorized [id number] Closed 11/22/2023 11/21/[phone] Encounter Details Date Type Department Care Team (Latest Contact Info) Description 03/19/2024 1:00 PM EST Hem/Onc Treatment Hematology/Oncolog y Treatment, [address] [address] Nasreen, Chair 1 Hem Onc [place] [address] [place] [address] Encounter for antineoplastic chemotherapy*; Malignant neoplasm of [...] 3 mL/hr over 46 hours intravenously continuous. 64907 mg 4 3:37 PM EST 03/14/20 24 [...] Description 04/22/2024 1:00 PM EST Laboratory Laboratory [facility] [place] 200 [facility] [place] [phone] [place], Lab [facility] 200 [facility] [place] [address] 04/22/2024 1:15 PM EST Hem/Onc Treatment Hematology/Oncology Treatment, [place] [address] [place] [phone] Nasreen, Chair 4 Hem Onc [facility] 200 [facility] [place] [address] 05/14/2024 9:00 AM EST Office Visit Hematology/Oncology [facility] [address] [place] [address] Chandni Almonte MD [address] [place], [place] [address] 07/19/2024 11:30 AM EDT Office Visit Cardiology, [facility] [address] [place] [address] Ciro Saini DO [address] [place] [address] 02/03/2025 1:00 PM EDT Office Visit Gynecology/Obstetrics [facility] [address] [place] [address] Nelli Farrell CRNP [address] [place] [address] Scheduled Procedures Name Priority Associated Diagnoses Date/Ti [...] this encounter Medical Devices Implanted Type Area Corporate Intern Device Identifier Shelf Expiration Date Model / Serial / Lot Power Port 8fr Sngl Lumen Plas - [id number] Implanted:Qty : 1 on 01/05/2023 by Jai Malcolm Jr., MD at OR [facility] Right: Chest CR BARD : PERIPHERAL VASCULAR [id number] 07/08/2024 [id number] / / [id number] documented as of this encounter Visit Diagnoses [...] Power of Attor johann? No Care Teams Core Filer Relationship Specialty Start Date End Date Lina Can MD [address] [place] [address] [place] [phone] PCP - General Family Medicine 08/06/22 documented as of this encounter
--- OUTSIDE RECORDS SUMMARY | 2024-05-09 12:14 | External Medical Summary | Summary of Care ---
Author Name Unknown Organization [facility] Address [address] [place] [address] Phone [phone] Care Team Providers Care Charge Account Clerk Name Role Phone Lina Can MD Primary Care Prov ider Reason for Visit * Reason Comments Chemotherapy C6/D1 - FOLFIRI/Zira antonina * Episode Based Medications (Routine) - Closed Specialty Diagnoses / Procedures Referred By Luc knig Referred To Contact Diagnoses Encounter for antineoplastic chemotherapy Malignant neoplasm of sigmoid colon (HCC) Procedures RI LEUCOVORIN CALCIUM INJECTION RI PALONOSETRON HCL RI FLUOROURACIL INJECTION RI IRINOTECAN INJECTION RI INJ., ZIRABEV, 10 MG Chandni Almonte MD [address] [place] [address] [place] [address] Phone: tel: fax: Hematology/Oncology Treatment, [address] [address] Phone: tel: fax: Referral ID Status Reason Start Date Expiration Date Visits Re quested Visits Authorized [id number] Closed 11/22/2023 11/21/[phone] Encounter Details Date Type Department Care Team (Latest Contact Info) Description 03/19/2024 1:00 PM EST Hem/Onc Treatment Hematology/Oncolog y Treatment, [address] [address] Nasreen, Chair 1 Hem Onc [place] [address] [place] [address] Encounter for antineoplastic chemotherapy*; Malignant neoplasm of [...] 3 mL/hr over 46 hours intravenously continuous. 65176 mg 4 3:37 PM EST 03/14/20 24 [...] Description 04/22/2024 1:00 PM EST Laboratory Laboratory [facility] [place] [address] [facility] [place] [place] [id number] [place], Lab [facility] [address] [facility] [place] [address] 04/22/2024 1:15 PM EST Hem/Onc Treatment Hematology/Oncology Treatment, [place] [address] [place] [phone] Nasreen, Chair 4 Hem Onc [facility] [address] [facility] [place] [address] 05/14/2024 9:00 AM EST Office Visit Hematology/Oncology [facility] [address] [place] [address] Chandni Almonte MD [address] [place], [place] [address] 07/19/2024 11:30 AM EDT Office Visit Cardiology, [facility] [address] [place] [address] Ciro Saini DO [address] [place] [address] 02/03/2025 1:00 PM EDT Office Visit Gynecology/Obstetrics [facility] [address] [place] [address] Nelli Farrell CRNP [address] [place] [address] Scheduled Procedures Name Priority Associated Diagnoses Date/Ti [...] this encounter Medical Devices Implanted Type Area Pharmacy Technician Inpatient Device Identifier Shelf Expiration Date Model / Serial / Lot Power Port 8fr Sngl Lumen Plas - [id number] Implanted:Qty : 1 on 01/05/2023 by Jai Malcolm Jr., MD at OR [facility] Right: Chest CR BARD : PERIPHERAL VASCULAR [id number] 07/08/2024 [id number] / / [id number] documented as of this encounter Visit Diagnoses [...] Power of Attor johann? No Care Teams Charge Account Clerk Relationship Specialty Start Date End Date Lina Can MD [address] [place] [address] [place] [phone] PCP - General Family Medicine 08/06/22 documented as of this encounter
--- OUTSIDE RECORDS SUMMARY | 2024-05-09 12:14 | External Medical Summary | Summary of Care ---
Author Name Unknown Organization [facility] Address [address] [place] [address] Phone [phone] Care Team Providers Care Telephone Services Sales Representative Name Role Phone Lina Can MD Primary Care Prov ider Reason for Visit * Reason Onset Date Comments Precert Future 04/18/2024 annel Wan Encounter Details Date Type Department Care Team (Late st Contact Info) Description 04/18/2024 Telephone Hematology/Oncology Treatment, [place] [address] [place] [address] Chandni Almonte MD [address] [place] [address] Precert Future (annel Wan) Allergies Active Allergy [...] encounter Miscellaneous Notes * Telephone Encounter - Glo Drake OSA - 04/19/2024 8:21 AM EST Updated appts * Telephone Encounter - Tereza Gray RN - 04/19/2024 7:37 AM EST Zirabev referral entered. Waiting for lonsurf. * Telephone Encounter - Tereza Gray RN - 04/18/2024 3:47 PM EST Order received for zirabev, lonsurf. [place] plan built. Waiting for auth. Consent signed [...] Description 04/22/2024 1:00 PM EST Laboratory Laboratory [facility] Nasreen [place] [address] [place] [phone] [place], Lab [facility] [address] [place] [address] 04/22/2024 1:15 PM EST Hem/Onc Treatment Hematology/Oncology Treatment, [place] [address] [place] [phone] Nasreen, Chair 4 Hem Onc [place] [address] [place] [address] 05/14/2024 9:00 AM EST Office Visit Hematology/Oncology [facility] [place] [address] [place] [address] Chandni Almonte MD [address] [place] [address] 07/19/2024 11:30 AM EDT Office Visit Cardiology, [facility] [address] [place] [address] Cior Saini DO [address] [place] [address] 02/03/2025 1:00 PM EDT Office Visit Gynecology/Obstetrics [facility] [address] [place] [address] Nelli Farrell CRNP [address] [place] [address] Scheduled Procedures Name Priority Associated Diagnoses Date/Ti [...] this encounter Medical Devices Implanted Type Area Student Accounts Manager Device Identifier Shelf Expiration Date Model / Serial / Lot Power Port 8fr Sngl Lumen Plas - [id number] Implanted:Qty : 1 on 01/05/2023 by Jai Malcolm Jr., MD at OR [facility] Right: Chest CR BARD : PERIPHERAL VASCULAR [id number] 07/08/2024 [id number] / / [id number] documented as of this encounter Advance Directives [...] Power of Attor johann? No Care Teams Telephone Services Sales Representative Relationship Specialty Start Date End Date Lina Can MD [address] [place] [address] [place] Pat[place] [phone] PCP - General Family Medicine 08/06/22 documented as of this encounter
--- OUTSIDE RECORDS SUMMARY | 2024-05-09 12:15 | External Medical Summary | Summary of Care ---
Author Name Unknown Organization [facility] Address [address] [place] [address] Phone [phone] Care Team Providers Care Electronic Integrated Systems Mechanic Name Role Phone Lina Can MD Primary Care Prov ider Reason for Visit * Reason Onset Date Comments Precert Future 04/18/2024 annel Wan Encounter Details Date Type Department Care Team (Late st Contact Info) Description 04/18/2024 Telephone Hematology/Oncology Treatment, [place] [address] [place] [address] Chandni Almonte MD [address] [place] [address] Precert Future (annel Wan) Allergies Active Allergy [...] 04/18/2024 3:47 PM EST Order received for mariannerabev, lonsurf. [place] plan built. Waiting for auth. Consent signed [...] st Contact Info) Description 04/19/2024 1:00 PM EST Pharmacy Pharmacy Hematology Oncology [place] [address] [place] [address] [facility] [place] [place]/Onc [address] [place] [address] 04/22/2024 1:00 PM EST Laboratory Laboratory [facility] [address] [place] [phone] Nasreen, Lab [address] [facility] [place] [address] 04/22/2024 1:15 PM EST Hem[facility] [address] [place] [phone] Nasreen, Chair 4 Hem Onc [facility] [address] [place] [address] 05/14/2024 9:00 AM EST Office Visit Hematology/Oncology [facility] [address] [place] [phone] Chandni Almonte MD [address] [place] [address] 07/19/2024 11:30 AM EDT Office Visit Cardiology, [facility] [address] [place] [address] Ciro Saini DO [address] [place] [address] 02/03/2025 1:00 PM EDT Office Visit Gynecology/Obstetrics [facility] [address] [place] [address] Nelli Farrell CRNP [address] [place] [address] Scheduled Procedures Name Priority Associated Diagnoses Date/Ti me PRE / POST CARE Malignant neoplasm of sigmoid colon (HCC) 11/03/2023 9:00 AM EDT Health Maintenance Due Date Last Done Comments Hepatitis C Screening 1973 DTap/Tdap Vaccines (1 - Tdap) 1974 Pneumococcal Vaccine: 50+ Years (1 of 2 - PCV) 1974 Cologuard 02/03/2000 Fecal Occult Blood Test 02/03/2000 Sigmoidoscopy 02/03/2000 Zoster Vaccines (1 of 2) 2005 DXA Scan 02/03/2020 Adult Wellness Visit 2021 Depression Screening 08/11/2023 08/10/2022 COVID-19 Vaccine ( season) 2023 06/27/2020, 05/30/2020 Influenza Vaccine (FLU shot) (#1) 2023 Lipid [...] this encounter Medical Devices Implanted Type Area Worker'S Compensation Claims Examiner Device Identifier Shelf Expiration Date Model / Serial / Lot Power Port 8fr Sngl Lumen Plas - [id number] Implanted:Qty : 1 on 01/05/2023 by Jai Malcolm Jr., MD at [facility] Right: Chest CR BARD : PERIPHERAL VASCULAR [id number] 07/08/2024 [id number] / / [id number] documented as of this encounter Advance Directives [...] Power of Attor johann? No Care Teams Electronic Integrated Systems Mechanic Relationship Specialty Start Date End Date Lina Can MD [address] [place] [address] [place] [phone] PCP - General Family Medicine 08/06/22 documented as of this encounter
--- OUTSIDE RECORDS SUMMARY | 2024-05-09 12:15 | External Medical Summary | Summary of Care ---
Author Name Unknown Organization [facility] Address [address] [place] [address] Phone [phone] Care Team Providers Care Last Turner Name Role Phone Lina Can MD Primary Care Prov ider Reason for Referral * Evaluate & Treat - Unlimited Visits (Within 10 days (routine)) - Authorized Specialty Diagnoses / Procedures Referred By Contac t Referred To Contact Radiation Oncology Diagnoses Malignant neoplasm of sigmoid colon (HCC) Metastasis to bone (HCC) Heriberto Wiley MD [address] [place] [address] Phone: tel: fax: Referral ID Status Reason Start Date Expiration Date Visits Requested Visits Authorized [id number] Authorized Specialty Services Required 04/18/2024 1 1 Question Answer Referral Priority Within 10 days (routine) Where should this appointment be scheduled? External - [facility] What is the preferred location to have this test performed? Non-S Site - [facility] Comments 69-year-old female, a case of sigmoid colon cancer, locally advanced, S/P resection, subsequently developed multiple bony metastatic disease, had received palliative radiation treatment to the bone metastasis earlier but now has increasing left hip pain. I would like to have Radiation Oncology evaluation and consider for palliative radiation treatment Thanks. Dr. Heriberto Wiley Hem/Onc Reason for Visit * Reason Comments Follow Up Return Encounter Details Date Type Department Care Team (Late st Contact Info) Description 04/18/2024 3:00 PM EST Office Visit Hematology/Oncology [facility] [address] [place] [address] Heriberto Wiley MD [address] [place] [address] Malignant neoplasm of sigmoid colon (HCC)*; Metastasis to bone (HCC) Allergies Active Allergy Reactions Criticality Noted Date Comments Amoxicillin-Pot Clavulanate Nausea/vomiting 07/12/2022 GI upset Doxycycline Nausea/vomiting 07/12/2022 GI upset Oxaliplatin [place] High 07/27/2023 Shortness of breath Metoclopramide Hives 08/10/2022 documented as of this encounter (statuses as of 04/18/2024) Medications Acetaminophen 500 MG Oral Tablet (Tylenol [...] as needed for Pain, Moderate. 30 Tablet Active oxyCODONE HCl 5 MG Oral Tablet (Oxy IR)Indications:M alignant neoplasm of sigmoid colon (HCC),Metastasis to bone (HCC) Take 1 Tablet by mouth every 4 hours as needed for Pain, Moderate. 60 Tablet 5 Active documented as of this encounter (statuses as of 04/18/2024) Active Problems Problem Noted Date Diagnosed Date [...] as of this encounter (statuses as of 04/18/2024) Immunizations No known immunizationsdocumented as of this [...] Sign Reading Time Taken Comments Blood Pressure 103/74 04/18/2024 2:59 PM EST Pulse 156 04/18/2024 2:59 PM EST Temperature 36.5 C (97.7 F) 04/18/2024 2:59 PM ES T Respiratory Rate - - Oxygen Saturation 96% 04/18/2024 2:59 PM EST Inhaled Oxygen Concentration - - Weight 53 kg (116 lb 14.4 oz) 04/18/2024 2:59 PM EST Height - - Body Mass Index 22.09 11/15/2023 10:01 AM EDT documented in this encounter Functional Status * [...] documented in this encounter Progress Notes * Heriberto Wiley MD - 04/18/2024 3:00 PM EST Hematology/Oncology Outpatient Clinic note [facility] Jean [place] [facility] [place] [address] NAME: Nyasia Hdez :1955 69-year-old female, DIAGNOSIS: - Cancer of sigmoid, status post Robotic-assisted, laparoscopic low anterior resection with coloproctostomy. Patient has stage pT4b pN2 disease. (08/22 ) - Poorly differentiated colonic adenocarcinoma involves cervix, uterine serosa and myometrium with remarkable lymphovascular invasion. - Biopsy from the right scapula--> Metastatic adenocarcinoma compatible with colorectal primary. - KRAS positive NGS checkup: - TMB --> 5.6 which is low - MSI stable - KRAS G12V mutation positive. - HER2 Tex 2+, FISH --> not amplified. CEA level normal at the time of the diagnosis in November 2022. - low-grade papillary urothelial carcinoma. CURRENT TREATMENT: 04/28/2024 --> planning start 3rd line of chemotherapy with Lonsurf (trifluridine and tipiracil) and Bevacizumab. PREVIOUS TREATMENT: - status post Robotic-assisted, laparoscopic low anterior resection with coloproctostomy. ( 11/2022). - She was treated with the adjuvant chemotherapy and received total of 10 cycles of FOLFOX. She hadallergic reaction so the chemo was changed to FOLFIRI for last 2 cycles. She received last chemo on07/25/2023. PET-CT scan on 10/02/2023: -new FDG avid bone lesions involving the right scapula, L5 vertebral body, left proximal femur. Biopsy from the right scapula on 11/15/2023 --> adenocarcinoma compatible with colorectal primary. - Status post radiation therapy to the metastatic sites including right scapula, lumbar spine and left proximal femur. Completed radiation therapy on 12/01/2023. FOLFIRI plus Avastin ( 12/19/2023-- 03/19/2024) PET-CT scan on 03/27/2024 showed further progression mainly in the bones throughout the axial and proximal appendicular skeletal. Left ilium lesion with SUV of 16.6. CEA level--> 3.9 ( August 2022 ) --> 3.2 ( August 2023). OTHER IMPORTANT HISTORY: -she is on Eliquis for cardiac arrhythmia. INTERVAL HISTORY: She has come the clinic for the follow-up, accompanied by her daughter in the office. She does complain of left hip pain, ambulates slowly by herself, ECOG PS 1 to 2, she takes oxycodone but in the daytime and tramadol with the nighttime, lately she is receiving irinotecan, 5-Fluorouracil and Bevacizumab combination, last treatment was in early March 2024. No new cardiac or pulmonary symptoms, no nausea, no vomiting, current weight around 116 lb. Because of opioid therapy, she has experienced constipation. No vomiting. No fever. No infection. No bleeding from any sites. Past Medical History: Diagnosis Date Breast cancer (HCC) 1991 right mastectomy Cancer, metastatic to bone (HCC) Colon cancer (HCC) New onset atrial fibrillation (HCC) 11/02/2023 Past Surgical History: Procedure Laterality Date COLONOSCOPY, DIAGNOSTIC (RECTUM) N/A 10/06/2022 COLONOSCOPY FLEXIBLE PROXIMAL DIAGNOSTIC performed by Timoteo Ayala DO at ENDOSCOPY [facility] COLONOSCOPY, DIAGNOSTIC (RECTUM) 10/21/2022 A fungating partially obstructing large mass was found in the sigmoid colon, performed by Glo Garcia DO at ENDOSCOPY [facility] CYSTOSCOPY/INSERTION OF STENT Bilateral 11/25/2022 CYSTOURETHROSCOPY WITH INSERTION URETERAL STENT DUAL SERVICE performed by Kishan Leblanc MD at OR [facility] CYSTOSCOPY/TREAT SML BLADDER TUMOR N/A 11/25/2022 ADULT CYSTOURETHROSCOPY WITH FULGURATION SMALL BLADDER TUMOR performed by Kishan Leblanc MD at OR [facility] INSER TUNN ACC DEV;5 YRS/OLDER Right 01/05/2023 INSERT TUNNELED CENTRAL VENOUS ACCESS WITH SUBQ PORT performed by Jai Malcolm Jr., MD at OR [facility] IR BIOPSY 11/15/2023 LAPAROSCOPIC PARTIAL COLECTOMY W/COLOPROCTOSTOMY N/A 11/25/2022 ROBOTIC LAPAROSCOPIC PARTIAL COLECTOMY WITH COLOPROCTOSTOMY performed by Timoteo Ayala DO atOR [facility] LAPAROSCOPY TOTAL HYSTX, UTERUS 250GM OR LESS 11/25/2022 ROBOTIC LAPAROSCOPIC HYSTERECTOMY FOR UTERUS 250GM OR LESS performed by Vinay Rice MD at OR [facility] MASTECTOMY, SIMPLE, COMPLETE Right 1992 [place] HEPATOBILIARY SYSTEM 09/15/2022 Normal hepatobiliary scintigraphy with patent cystic and common bile ducts. normal GB fraction at 84% Current Outpatient Medications Medication Sig Dispense Refill Acetaminophen 500 MG Oral Tablet (Tylenol Extra Strength) Take 1 Tablet by mouth every 6 hours as needed for Fever (Temp Greater than ) or Pain, Moderate. Ondansetron HCl 8 MG Oral Tablet (Zofran) Take 1 Tablet by mouth every 8 hours as needed for Nausea. 30 Tablet 1 Prochlorperazine Maleate 10 MG Oral Tablet (Compazine) Take 1 Tablet by mouth every 6 hours as needed for Nausea. 30 Tablet 1 Metoprolol Succinate ER 25 MG Oral Tablet Extended Release 24 Hour (toPROL XL) Take 1 Tablet by mouth in the morning. 90 Tablet 1 Eliquis 5 MG Oral Tablet Take 1 Tablet by mouth in the morning and 1 Tablet before bedtime. 60 Tablet 11 Potassium Chloride ER 10 MEQ Oral Tablet Extended Release Take 1 Tablet by mouth in the morning. (Patient not taking: Reported on 04/05/2024) 30 Tablet 1 traMADol HCl 50 MG Oral Tablet (Ultram) Take 1 Tablet by mouth every 6 hours as needed for Pain, Moderate. 30 Tablet 0 oxyCODONE HCl 5 MG Oral Tablet (Oxy IR) Take 1 Tablet by mouth every 4 hours as needed for Pain, Moderate. 60 Tablet 0 No current facility-administered medications for this visit. Family History Problem Relation Name Age of Onset Breast Cancer Mother Breast Cancer Aunt (Maternal) Social History Socioeconomic History Marital status: Spouse name: Not on file Number of children: Not on file Years of education: Not on file Highest education level: Not on file Occupational History Not on file Tobacco Use Smoking status: Every Day Current packs/day: 0.50 Types: Cigarettes Smokeless tobacco: Never Vaping Use Vaping status: Never Used Substance and Sexual Activity Alcohol use: Not Currently Drug use: Never Sexual activity: Not on file Other Topics Concern Not on file Social History Narrative Not on file Social Needs Financial Resource Strain: Not on file Food Insecurity: Patient Declined (08/10/2022) Hunger Vital Sign Worried About Running Out of Food in the Last Year: Patient declined Ran Out of Food in the Last Year: Patient declined Transportation Needs: Not on file Social Connections: Not on file Housing Stability: Not on file On exam: BP 103/74 (BP Site: Left Arm, BP Position: Sitting, BP Cuff Size: Regular) | Pulse 156 | Temp 36.5 C (97.7 F) (Tympanic) | Wt 53 kg (116 lb 14.4 oz) | SpO2 96% | BMI 22.09 kg/m | BSA 1.51 m Constitutional: Patient is alert, cooperative and oriented x 3. Thin built female, Patient is in noacute distress. HEENT: No icterus, no pallor, Throat and pharynx normal. Sinuses are non-tender. Neck: Supple and without lymphadenopathy or masses. No JVD. No Palpable supraclavicular lymph nodes. Lungs: Clear to auscultation. Bilateral symmetric air entry. No wheezing or rhonchi. Cardiovascular: Normal heart sounds, no murmurs.Regular rate and rhythm. Abdomen: Soft, nontender, no hepatomegaly, no splenomegaly. Bowel sounds are normal. Neurological: No gross focal neurological deficit; walks with a normal gait. Extremities: No finger clubbing, No cyanosis. No leg edema. Skin:: No skin rash. SPINE: No spinal or paraspinal tenderness. LABS: Blood workup done on 04/18/2024: -WBC 9600, Hemoglobin and hematocrit - 10.4/32.3, Platelet count of 371025 -BUN/Creat: 9/0.5 -AST 30, ALT 20, alkaline phosphatase 209, bilirubin level 0.5 -magnesium level --> 2.0. IMAGING: Latest PET-CT scan done on 03/27/2024 showed significant interval worsening of the FDG avid bony metastatic disease. ASSESSMENT AND PLAN: 69-year-old female, a case of sigmoid colon cancer, locally advanced disease, she had low anterior resection and hysterectomy as it was involving the cervix and uterus, pathological T4 B, 5/15 lymph node positive for metastatic disease, normal preoperative CEA level in November of 2022. She received adjuvant chemotherapy with 10 cycles of FOLFOX but then allergic reaction with the oxaliplatin so she received 2 cycles of FOLFIRI which was completed in July of 2023. 2 months later, found to have FDG avid bone lesions involving the right scapula, L5 vertebral body and left proximal femur. Biopsy from the right scapula confirmed adenocarcinoma compatible with colorectal primary. She had radiation treatment to the right scapula, lumbar spine and left proximal femur which was completed in November of 2023. She received FOLFIRI between December 2023 - early March 2024. PET-CT scan done in mid-March 2024 showed significant disease progression mainly in the multiplebones. She does complain of left hip pain. 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 Reviewed information outlined on NCCN website regarding further treatment with her and her daughter. We talked about overall treatment goal which would be palliative and not curative I would consider for Lonsurf (trifluridine and tipiracil) and Bevacizumab combination, reviewed with them regarding treatment schedule side effect profile and she is in agreement for that. I would like to have Radiation Oncology consultation and see whether she can be a candidate for additional palliative radiation treatment. She will continue oxycodone for now. We talked to her about long-acting opioid but she would like to continue oxycodone at this time. I would like to start Xgeva every monthly. She should take vitamin-D and Calcium supplementation onregular basis. She will continue to have follow-up with Dr. Almonte. Dr. Heriberto Wiley Hem/Onc (This note was completed using the dictation program Fluency Direct. As such, there may be misspellings word substitutions, or other variations that should not change the essence of the clinical content of this encounter note. If there is need for further clarification, please direct questions to the provider listed above.) documented in this encounter Nursing Notes * Yanelis Orozco CMA - 04/18/2024 3:00 PM EST Patient identifed by name and birthdate Do you have any concerns about pain management for today's visit? Yes. Patient instructed to discuss pain concerns with provider during the visit today Living Will or Advance Directive for Health Care as noted on the problem list. [facility] is a way you can talk to your provider on line through e-mail. Would you like to sign up? I can activate it for you? ALREADY ACTIVE Filed Vitals: 04/18/24 1459 BP: 103/74 Pulse: 156 Temp: 36.5 C (97.7 F) TempSrc: Tympanic SpO2: 96% Weight: 53 kg (116 lb 14.4 oz) Patient was instructed to not get up on the exam table/exam chair until directed and assisted by their provider; patient is to remain seated in the chair/ wheelchair/ exam table/ exam chair for fall prevention and safety reasons. Patient is aware to have assistance to step down off exam table/exam chair with personnel. Patient voiced full comprehension of instructions. documented in this encounter Plan of Treatment Upcoming Encounters Date Type Department Care Team (Late st Contact Info) Description 04/19/2024 1:00 PM EST Pharmacy Pharmacy Hematology Oncology [address] [address] [facility] [facility] Hem/Onc [facility] [place] [address] 04/22/2024 12:10 PM EST Laboratory Laboratory [facility] [place] [address] [place] [phone] [place], Lab [address]en[address] [place] [address] 04/22/2024 1:15 PM EST Hem/Onc Treatment Hematology/Oncology Treatment, [place] [address] [place] [address] [place], Chair 4 Hem Onc [facility] [address] [place] [address] 05/14/2024 9:00 AM EST Office Visit Hematology/Oncology [facility] [place] [address] [place] [id number] Chandni Almonte MD [address] [place] [address] 07/19/2024 11:30 AM EDT Office Visit Cardiology, [facility] [address] [facility] [place] [address] Ciro Saini DO [address] [place] [address] 02/03/2025 1:00 PM EDT Office Visit Gynecology/Obstetrics [facility] [address] [facility] [place] [address] Nelli Farrell [facility] [address] [facility] [address] Scheduled Procedures Name Priority Associated Diagnoses Date/Ti me PRE / POST CARE Malignant neoplasm of sigmoid colon (HCC) 11/03/2023 9:00 AM EDT Scheduled Referrals Name Type Priority Associated Diagnoses Orde r Schedule RADIATION/ONCOLOGY REFERRAL OP Referral Within 10 days (routine) Malignant neoplasm of sigmoid colon (HCC) Metastasis to bone (HCC) Ordered: 04/18/2024 Health Maintenance Due Date Last Done Comments [...] this encounter Medical Devices Implanted Type Area Go Cart Mechanic Device Identifier Shelf Expiration Date Model / Serial / Lot Power Port 8fr Sngl Lumen Plas - [id number] Implanted:Qty : 1 on 01/05/2023 by Jai Malcolm Jr., MD at [facility] Right: Chest CR BARD : PERIPHERAL VASCULAR [id number] 07/08/2024 [id number] / / [id number] documented as of this encounter Visit Diagnoses [...] Power of Attor johann? No Care Teams Last Turner Relationship Specialty Start Date End Date Lina Can MD [address] [place] [address] [place] [address] PCP - General Family Medicine 08/06/22 documented as of this encounter"
--- OUTSIDE RECORDS SUMMARY | 2024-05-09 12:15 | External Medical Summary | Summary of Care ---
Author Name Unknown Organization [facility] Address [address] [place] [address] Phone [phone] Care Team Providers Care Produce Associate Name Role Phone Lina Can MD Primary Care Prov ider Reason for Visit * Reason Onset Date Comments Precert Future 04/18/2024 annel Wan Encounter Details Date Type Department Care Team (Late st Contact Info) Description 04/18/2024 Telephone Hematology/Oncology Treatment, [place] [address] [place] [address] Chandni Almonte MD [address] [place] [address] Precert Future (annel Wan) Allergies Active Allergy [...] PM EST Order received for zirabev, lonsurf. [place] plan built. Waiting for auth. Consent signed [...] 1:00 PM EST Pharmacy Pharmacy Hematology Oncology [place] [address] [place] [address] [facility] Hem/Onc [facility] [place] [address] 04/22/2024 12:10 PM EST Laboratory Laboratory [facility] [place] [address] [place] [address] [place], Lab Scenery [address] [facility] [place] [address] 04/22/2024 1:15 PM EST Hem/Onc Treatment Hematology/Oncology Treatment, [place] [address] [place] [address] Nas[place], Chair 4 Hem Onc [address] [place] [address] 05/14/2024 9:00 AM EST Office Visit Hematology/Oncology [facility] [place] [phone] Chandni Almonte MD [address] [facility] [place] [address] 07/19/2024 11:30 AM EDT Office Visit Cardiology, [facility] [address] [place] [address] Ciro Saini DO [address] [place] [address] 02/03/2025 1:00 PM EDT Office Visit Gynecology/Obstetrics [facility] [address] [place] [address] Nelli Farrell CRNP [address] [place] [address] Scheduled Procedures Name Priority Associated Diagnoses Date/Ti [...] 2021 Depression Screening 08/11/2023 08/10/2022 COVID-19 Vaccine (3 - season) 2023 06/27/2020, 05/30/2020 Influenza Vaccine (FLU [...] this encounter Medical Devices Implanted Type Area Shuttleless Loom Weaver Device Identifier Shelf Expiration Date Model / Serial / Lot Power Port 8fr Sngl Lumen Plas - [id number] Implanted:Qty : 1 on 01/05/2023 by Jai Malcolm Jr., MD at [facility] Right: Chest CR BARD : PERIPHERAL VASCULAR [id number] 07/08/2024 [id number] / / [id number] documented as of this encounter Advance Directives [...] Power of Attor johann? No Care Teams Produce Associate Relationship Specialty Start Date End Date Lina Can MD [address] [place] [address] [place] [address] PCP - General Family Medicine 08/06/22 documented as of this encounter
--- OUTSIDE RECORDS SUMMARY | 2024-05-09 12:15 | External Medical Summary | Summary of Care ---
Author Name Unknown Organization [facility] Address [address] [place] [address] Phone [phone] Care Team Providers Care Resident Physician Name Role Phone Lina Can MD Primary Care Prov ider Reason for Visit * Reason Comments Procedure Labs from port/port flush Encounter Details Date Type Department Care Team (Late st Contact Info) Description 04/18/2024 2:30 PM EST Nurse Only Hematology/Oncology Treatment, [place] [address] [place] [address] Nasreen, Chair 9 Hem Onc Scene [address] [place] [address] Procedure (Labs from port/port flush) Allergies Active Allergy Reactions Criticality Noted Date [...] Assessment Author No 11/25/2022 5:16 PM Nikita Milotn RN * Do you have difficulty dressing [...] in this encounter Nursing Notes * Mery Luther, RADHA - 04/18/2024 3:09 PM EST Chair 2, labs from port. VAD (Venous Access Device) accessed with #19G 3/4" without difficulty. Specimen collected for ordered labs. VAD flushed with 10 ml NSS and Heparin 5 ml (100 units/ml). Bowie needle removed intact. Pt discharged in stable condition. documented in this encounter Plan of Treatment Upcoming Encounters Date Type Department Care Team (Late st Contact Info) Description 04/19/2024 1:00 PM EST Pharmacy Pharmacy Hematology Oncology [address] [address] [facility] [place] [facility] Hem/Onc [address] [place] [address] 04/22/2024 12:10 PM EST Laboratory Laboratory [facility] [place] [address] [place] [phone] Nasreen, Lab Scenery [address] [facility] [place] [address] 04/22/2024 1:15 PM EST Hem/Onc Treatment Hematology/Oncology Treatment, [place] [address] [place] [phone] Nasreen, Chair 4 Hem Onc Scenery [address] [place] [address] 05/14/2024 9:00 AM EST Office Visit Hematology/Oncology [facility] Nasreen [place] [address] [place] [phone] Chandni Almonte MD [address] [place] [address] 07/19/2024 11:30 AM EDT Office Visit Cardiology, [facility] [address] [place] [address] Ciro Saini DO [address] [place] [address] 02/03/2025 1:00 PM EDT Office Visit Gynecology/Obstetrics [facility] [address] [place] [address] Nelli Farrell CRNP [address] [place] [address] Scheduled Procedures Name Priority Associated Diagnoses Date/Ti [...] Depression Screening 08/11/2023 08/10/2022 COVID-19 Vaccine ( - season) 2023 06/27/2020, 05/30/2020 Influenza Vaccine [...] this encounter Medical Devices Implanted Type Area Fish Worm Grower Device Identifier Shelf Expiration Date Model / Serial / Lot Power Port 8fr Sngl Lumen Plas - [id number] Implanted:Qty : 1 on 01/05/2023 by Jai Malcolm Jr., MD at OR [facility] Right: Chest CR BARD : PERIPHERAL VASCULAR [id number] 07/08/2024 [id number] / / [id number] documented as of this encounter Procedures Procedure Name Priority Date/Time Associated Diagnosis Comments DIFFERENTIAL, AUTOMATED STAT 04/18/2024 2:54 PM EST Malignant neoplasm of sigmoid colon (HCC) Metastasis to bone (HCC) COMPREHENSIVE METABOLIC PANEL STAT 04/18/2024 2:54 PM EST Malignant neoplasm of sigmoid colon (HCC) Metastasis to bone (HCC) CBC STAT 04/18/2024 2:54 PM EST Malignant neoplasm of sigmoid colon (HCC) Metastasis to bone (HCC) CBC STAT 04/18/2024 2:54 PM EST Malignant neoplasm of sigmoid colon (HCC) Metastasis to bone (HCC) MAGNESIUM STAT 04/18/2024 2:54 PM EST Malignant neoplasm of sigmoid colon (HCC) Metastasis to bone (HCC) documented in this encounter Results * (ABNORMAL) DIFFERENTIAL, AUTOMATED (04/18/2024 2:54 PM EST) WBC 9.68 4.00 - 10.80 K/uL 04/18/2024 3:01 PM EST [facility]-02 Neutrophils % 80.6(H) 40.0 - 75.0 % 04/18/2024 3:01 PM EST [facility] 56-02 Lymphocytes % 11.5(L) 18.0 - 42.0 % 04/18/2024 3:01 PM EST [facility] 56-02 Monocytes % 7.2 1.0 - 11.0 % 04/18/2024 3:01 PM EST [facility] 56-02 Eosinophils % 0.5 0.0 - 6.0 % 04/18/2024 3:01 PM EST [facility] 56-02 Basophils % 0.2 0.0 - 2.0 % 04/18/2024 3:01 PM [facility] 56- Absolute Neutrophils 7.80(H) 1.80 - 7.70 K/uL 04/18/2024 3:01 PM [facility] 56- Absolute Lymphocytes 1.11 1.00 - 4.80 K/ul 04/18/2024 3:01 PM [facility] 56- Absolute Monocytes 0.70 0.00 - 1.10 K/uL 04/18/2024 3:01 PM [facility] 56- Absolute Eosinophils 0.05 0.00 - 0.70 K/uL 04/18/2024 3:01 PM [facility] 56- Absolute Basophils 0.02 0.00 - 0.20 K/uL 04/18/2024 3:01 PM [facility] 56- Blood Blood sample taken from central line / Unknown Central Line / Unknown 04/18/2024 2:54 PM EST 04/18/2024 2:58 PM EST Chandni Almonte MD LAB BLOOD ORDERABLES Fin al Result [facility] 56- [address] [place] [address] * (ABNORMAL) CBC (04/18/2024 2:54 PM EST) WBC 9.68 4.00 - 10.80 K/uL 04/18/2024 3:01 PM [facility] 56- RBC 3.17 3.85 - 5.15 M/uL 04/18/2024 3:01 PM [facility] 56- HGB 10.4(L) 12.0 - 15.3 g/dL 04/18/2024 3:01 PM [facility] 56- HCT 32.3(L) 36.0 - 45.2 % 04/18/2024 3:01 PM [facility] 56- MCV 101.9 81.5 - 97.5 fL 04/18/2024 3:01 PM [facility] 56- MCH 32.8 27.0 - 34.0 pg 04/18/2024 3:01 PM [facility] 56- MCHC 32.2 32.0 - 36.0 g/dL 04/18/2024 3:01 PM [facility] 56-02 RDW 14.4 11.5 - 15.5 % 04/18/2024 3:01 PM [facility] 56-02 PLT 183 140 - 400 K/uL 04/18/2024 3:01 PM [facility] 5602 MPV 9.6 6.6 - 11.1 fL 04/18/2024 3:01 PM [facility] 5602 Blood Blood sample taken from central line / Unknown Central Line / Unknown 04/18/2024 2:54 PM EST 04/18/2024 2:58 PM EST Chandni Almonte MD LAB BLOOD ORDERABLES Fin al Result [facility] 56- [address] [place] [address] * MAGNESIUM (04/18/2024 2:54 PM EST) Magnesium 2.0 1.5 - 2.6 mg/dL 04/18/2024 3:20 PM [facility] Blood Blood sample taken from central line / Unknown Central Line / Unknown 04/18/2024 2:54 PM EST 04/18/2024 2:58 PM EST Chandni Almonte MD LAB BLOOD ORDERABLES Fin al Result [facility] 56- [address] [place] [address] * (ABNORMAL) COMPREHENSIVE METABOLIC PANEL (04/18/2024 2:54 PM EST) BUN 9 6 - 20 mg/dL 04/18/2024 3:20 PM [facility] 56- CREATININE 0.5 0.5 - 1.0 mg/dL 04/18/2024 3:20 PM [facility] 56- EGFR >90 >=60 mL/min 04/18/2024 3:20 PM [facility] 56 Comment:eGFR is calculated b ased on the CKD-EPI 2020 equation. SODIUM 133(L) 135 - 146 mmol/L 04/18/2024 3:20 PM [facility] 56- POTASSIUM 3.7 3.5 - 5.1 mmol/L 04/18/2024 3:20 PM [facility] 56 CHLORIDE 95(L) 98 - 107 mmol/L 04/18/2024 3:20 PM [facility] 56 CO2 24 22 - 32 mmol/L 04/18/2024 3:20 PM [facility] 56 ANION GAP 14 7 - 15 mmol/L 04/18/2024 3:20 PM [facility] 56 GLUCOSE 100 70 - 120 mg/dL 04/18/2024 3:20 PM [facility] 56 Albumin 3.5(L) 3.8 - 5.0 g/dL 04/18/2024 3:20 PM [facility] 56 AST 30 10 - 35 U/L 04/18/2024 3:20 PM [facility] 56 Alkaline Phosphatase 209(H) 35 - 130 U/L 04/18/2024 3:20 PM [facility] 56 Bilirubin, Total 0.5 <=1.2 mg/dL 04/18/2024 3:20 PM [facility] 56 CALCIUM 9.5 8.4 - 10.2 mg/dL 04/18/2024 3:20 PM [facility] 56 Protein 7.2 6.0 - 8.3 g/dL 04/18/2024 3:20 PM [facility] 56 ALT 20 10 - 35 U/L 04/18/2024 3:20 PM [facility] 5602 Blood Blood sample taken from central line / Unknown Central Line / Unknown 04/18/2024 2:54 PM EST 04/18/2024 2:58 PM EST us Chandni Almonte MD LAB BLOOD ORDERABLES Fin al Result [facility] 56-[address] [place] [address] documented in this encounter Visit Diagnoses Diagnosis History of colon cancer- Primary Personal history of malignant neoplasm of large intestine Malignant neoplasm of sigmoid colon (HCC) Malignant neoplasm of sigmoid colon Metastasis to bone (HCC) Secondary malignant neoplasm of bone and bone marrow Encounter for adjustment and management of vascular access device documented in this encounter Administered Medications Active Administered Medications - up to 3 most recent administrations Medication Order MAR Action Action Date Dose Rate Site hEParin 100 UNIT/ML Lock Flush inj 500 Units 500 Units (5 mL), IV Lock, PRN Other, IV Flush, Starting on Shi 04/18/24 at 1438, Until 04/19/24 at 1437, For 24 hours, Do not flush if lock, PICC, or central line not in place; IV infusing or unable to flush.Indications:History of colon cancer Given 04/18/2024 3:06 PM EST 500 Units sodium chloride 0.9 % flush central line 10 mL 10 mL, IV Push, PRN Other, IV Flush, Starting on Shi 04/18/24 at 1438, Until Mon04/19/24 at 1437, For 24 hours, Do not flush if lock, PICC, or central line not in place; IV infusing or unable to flush.Indications:History of colon cancer Given 04/18/2024 3:06 PM EST 10 mL documented in this [...] Power of Attor johann? No Care Teams Resident Physician Relationship Specialty Start Date End Date Lina Can MD [address] [place] [address] [place] [phone] PCP - General Family Medicine 08/06/22 documented as of this encounter
--- OUTSIDE RECORDS SUMMARY | 2024-05-09 12:15 | External Medical Summary | Summary of Care ---
Author Name Unknown Organization [facility] Address [address] [place] [address] Phone [phone] Care Team Providers Care Cigar Packing Examiner Name Role Phone Lina Can MD Primary Care Prov ider Reason for Visit * Reason Onset Date Comments Imaging Records Request 04/18/2024 Encounter Details Date Type Department Care Team (Late st Contact Info) Description 04/18/2024 Telephone Radiology Film File [address] [place] [address] Support, Imaging Radiology [address] [place] [address] Imaging Records Request Allergies Active Allergy Reactions Criticality Noted Date [...] 11/25/2022 5:16 PM EDNikita Mccormack RN * Are you blind or do [...] encounter Miscellaneous Notes * Telephone Encounter - Frannie Dawn, System Support - 04/18/2024 4:29 PM EST NR - [facility] requesting PET CT 03/27/24 images be pushed to their system. Scammon Authorization to Release on file. Images pushed to [employer] external connection documented in this encounter Plan of Treatment Upcoming Encounters Date Type Department Care Team (Late st Contact Info) Description 04/19/2024 1:00 PM EST Pharmacy Pharmacy Hematology Oncology [facility] [address] [place] [address] [facility], [facility] Hem/Onc [address] [place] [address] 04/22/2024 12:10 PM EST Laboratory Laboratory [facility] [place] [address] [place] [phone] [place], Lab Scenery [address] [place] [address] 04/22/2024 1:15 PM EST Hem[facility] [address] [place] [phone] Nasreen, Chair 4 Hem Onc [facility] [address] [place] [address] 05/14/2024 9:00 AM EST Office Visit Hematology/Oncology [facility] [place] [address] [place] [phone] Chandni Almonte MD [address] [place] [address] 07/19/2024 11:30 AM EDT Office Visit Cardiology, [facility] [address] [place] [address] Ciro Saini, [address] [place] [address] 02/03/2025 1:00 PM EDT Office Visit Gynecology/Obstetrics [facility] [address] [place] [address] [place], NelliSANDRA Jenkins [address] [place] [address] Scheduled Procedures Name Priority Associated Diagnoses Date/Ti [...] this encounter Medical Devices Implanted Type Area Power Screwdriver Operator Device Identifier Shelf Expiration Date Model / Serial / Lot Power Port 8fr Sngl Lumen Plas - [id number] Implanted:Qty : 1 on 01/05/2023 by Jai Malcolm Jr., MD at OR [facility] Right: Chest CR BARD : PERIPHERAL VASCULAR [id number] 07/08/2024 [id number] / / [id number] documented as of this encounter Advance Directives [...] Power of Attor johann? No Care Teams Cigar Packing Examiner Relationship Specialty Start Date End Date Lina Can MD [address] [place] [address] [place] [phone] PCP - General Family Medicine 08/06/22 documented as of this encounter
--- OUTSIDE RECORDS SUMMARY | 2024-05-09 12:15 | External Medical Summary ---
Author Name Unknown Address Unknown Organization [facility]-02 - [address] [place] [address] Laboratory Report Ordering Provider Test Date Status DANNIELLE OLVERA 04/18/2024 14:54:35 Final Observation Date Value Abnormality Reference (Units ) Status BUN 04/18/2024 14:54:35 9 6-20 (mg/dL) Final Creatinine 04/18/2024 14:54:35 0.5 0.5-1.0 (mg/dL) Final Glomerular filtration rate/1.73 sq M.predicted [Volume Rate/Area] in Serum, Plasma or Blood by Creatinine-based formula (CKD-EPI) 04/18/2024 14:54:35 >90 >=60 (mL/min) Final eGFR is calculated based on the CKD-EPI 2020 equation. Sodium 04/18/2024 14:54:35 133 Below low normal 135 -146 (mmol/L) Final Potassium 04/18/2024 14:54:35 3.7 3.5-5.1 (m mol/L) Final Cl 04/18/2024 14:54:35 95 Below low normal 98- 107 (mmol/L) Final CO2 04/18/2024 14:54:35 24 22-32 (mmo l/L) Final Anion gap 04/18/2024 14:54:35 14 7-15 (mmol /L) Final Glucose 04/18/2024 14:54:35 100 70-120 (mg /dL) Final Albumin 04/18/2024 14:54:35 3.5 Below low normal 3.8 -5.0 (g/dL) Final AST (Aspartate aminotransferase) 04/18/2024 14:54:35 30 10-35 (U/L) Fin al Alk Phos 04/18/2024 14:54:35 209 Above high normal 35 -130 (U/L) Final Bilirubin, Total 04/18/2024 14:54:35 0.5 <=1 .2 (mg/dL) Final Calcium 04/18/2024 14:54:35 9.5 8.4-10.2 ( mg/dL) Final Protein 04/18/2024 14:54:35 7.2 6.0-8.3 (g /dL) Final ALT (Alanine aminotransferase) 04/18/2024 14:54:35 20 10-35 (U/L) Shubham ornelas Performing Location [facility] [address] [place] [address]
--- OUTSIDE RECORDS SUMMARY | 2024-05-09 12:15 | External Medical Summary | Summary of Care ---
Author Name Unknown Organization [facility] Address [address] [place] [address] Phone [phone] Care Team Providers Care Radiotelegraphist Name Role Phone Lina Can MD Primary Care Prov ider Reason for Visit * Reason Comments Medication Management Encounter Details Date Type Department Care Team (Late st Contact Info) Description 04/16/2024 9:45 AM [facility] Pharmacy Pharmacy Hematology Oncology [facility] [address] [place] [address] [facility] Hem/Onc [address] [place], [place] [phone] Malignant neoplasm of sigmoid colon (HCC)* Allergies Active Allergy Reactions Criticality Noted Date Comments Amoxicillin-Pot Clavulanate Nausea/vomiting 07/12/2022 GI upset Doxycycline Nausea/vomiting 07/12/2022 GI upset Oxaliplatin Flushing High 07/27/2023 Shortness of breath Metoclopramide Hives 08/10/2022 documented as of this encounter (statuses as of 04/16/2024) Medications Acetaminophen 500 MG Oral Tablet (Tylenol Extra Strength) Take 1 Tablet by mouth every 6 hours as needed for Fever (Temp Greater than ) or Pain, Moderate. Active Ondansetron HCl 8 MG Oral Tablet (Zofran)Indicat ions:Malignant neoplasm of sigmoid colon (HCC) Take 1 Tablet by mouth every 8 hours as needed for Nausea. 30 Tablet 1 12/18/19 24 Active Prochlorperazin e Maleate 10 MG Oral Tablet (Compazine)Sapna cations:Maligna nt neoplasm of sigmoid colon (HCC) Take 1 Tablet by mouth every 6 hours as needed for Nausea. 30 Tablet 1 12/18/19 24 Active Metoprolol Succinate ER 25 MG Oral Tablet Extended Release 24 Hour (toPROL XL)Indications: New onset atrial fibrillation (HCC) Take 1 Tablet by mouth in the morning. 90 Tablet 1 02/19/20 24 Active Eliquis 5 MG Oral Tablet Take 1 Tablet by mouth in the morning and 1 Tablet before bedtime. 60 Tablet 11 02/26/20 24 Active Potassium Chloride ER 10 MEQ Oral Tablet Extended ReleaseIndicati ons:Malignant neoplasm of sigmoid colon (HCC) Take 1 Tablet by mouth in the morning. 30 Tablet 1 03/11/20 24 Active Additional Information Patient not taking.Reported on 04/05/2024 traMADol HCl 50 MG Oral Tablet (Ultram)Indicat ions:Malignant neoplasm of sigmoid colon (HCC) Take 1 Tablet by mouth every 6 hours as needed for Pain, Moderate. 30 Tablet 04/11/19 25 Active oxyCODONE HCl 5 MG Oral Tablet (Oxy IR)Indications: Malignant neoplasm of sigmoid colon (HCC),Metastasi s to bone (HCC) Take 1 Tablet by mouth every 4 hours as needed for Pain, Moderate. 60 Tablet 04/15/19 25 Active Sotorasib 120 MG Oral TabletIndicatio ns:Malignant neoplasm of sigmoid colon (HCC) Take 960 mg (8 tablets) by mouth in the morning. With or without food. 240 Tablet 5 04/09/20 24 025 Discontinued documented as of this encounter (statuses as of 04/16/2024) Active Problems Problem Noted Date Diagnosed Date [...] as of this encounter (statuses as of 04/16/2024) Immunizations No known immunizationsdocumented as of this [...] 5:16 PM [facility]OP[facility] Nikita Ramirez RN * Do you have [...] this encounter Progress Notes * Sally Nino, [facility] - 04/16/2024 11:58 AM EST MEDICATION THERAPY MANAGEMENT SOTORASIB TREATMENT STATUS NOTE Nyasia Hdez [id number] Patient Phone Numbers Communication: Spoke to MD/PA/ADMINISTRATION DEAN Treatment: Medication: Sotorasib (Lumakras) Indication/Staging/Diagnosis Code: colon cancer, 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 Almonte Additional Therapy: Panitumumab Supportive Care Meds: Ondansetron Prochlorperazine Prophylactic Meds: none Relevant Chronic Medications: Category Medications Pertinent Notes Antihypertensives Metoprolol ER 25mg daily Per PCP Anticoagulation Apixaban 5mg BID Per cardiology Review of therapy: Line of therapy: third Previous therapy: Breast Cancer: ~1995: ddAC + Taxol Colon cancer: 01/2023-07/2023: FOLFOX 07/2023; 11/2023-03/2024: FOLFIRI + bevacizumab Assessment and Plan: Per discussion with covering provider Dr. 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 - plan to change therapy to Lonsurf+bevacizumab Alpha plan discontinued and staff message sent to [facility] regarding treatment change MTM to follow up 04/19 after OV to confirm treatment plan and upload beacon plan Follow up: 04/18 OV; 04/19 MTM Sally Nino, PharmD, BCOP Clinical Pharmacist, [facility] Oral Chemotherapy [facility] 04/16/2024, 12:01 PM Monitoring Parameters: Estimated CrCl Serum creatinine: 0.7 mg/dL 03/18/24 0907 Estimated creatinine clearance: 50.1 mL/min Hepatitis panel [...] Parameters LFTs < 5 times ULN Pertinent labs: N/A Time Spent on Encounter: 6 - 10 minutes Encounter Group: Oncology Encounter Interventions Item Category: Oral Chemotherapy Sotorasib Problem/Rationale: Indication: Unnecessary medication therapy - No medical indication at this time Pharmacist Intervention(s): Clarification with Provider, Contacted specialty pharmacy, Medication discontinued, and Medication reconciliation Magnitude of Intervention: Modification of medication for asymtomatic patients (Level 2) documented in this encounter Plan of Treatment Upcoming Encounters Date Type Department Care Team (Late st Contact Info) Description 04/18/2024 2:30 PM EST Nurse Only Hematology/Oncology Treatment, [address] [place] [phone] Nasreen, Chair 9 Hem On[address] [place] [address] 04/18/2024 3:00 PM EST Office Visit Hematology/Oncology [facility] [place] 200 [facility] [place] [phone] Heriberto Wiley MD 200 [facility] [place] [address] 04/18/2024 3:30 PM EST Pt Ed by Nurse Hematology/Oncology [facility] [place] 200 [facility] [place] [phone] Nasreen Nurse Hem Onc [address] [place] [address] 04/19/2024 1:00 PM EST Pharmacy Pharmacy Hematology Oncology [address] [phone] [facility] Hem[facility]Onc [address] [facility] [address] 04/22/2024 12:10 PM EST Laboratory Laboratory [facility] [place] [address] [place] [phone] Nasreen, Lab Scenery [address] [place] [address] 04/22/2024 1:15 PM EST Hem[facility] [address] [place] [phone] Nasreen, Chair 4 Hem Onc [facility] [address] [place] [address] 05/14/2024 9:00 AM EST Office Visit Hematology/Oncology [facility] [place] [address] [place] [address] Chandni Almonte MD [address] [place] [address] 07/19/2024 11:30 AM EDT Office Visit Cardiology, [facility] [address] [place] [address] Ciro Saini DO [address] [place] [address] 02/03/2025 1:00 PM EDT Office Visit Gynecology/Obstetrics [facility] [address] [place] [address] Nelli Farrell CRNP [address] [place] [id number] Scheduled Procedures Name Priority Associated Diagnoses Date/Ti [...] encounter Medical Devices Implanted Type Area Manager Construction Device Identifier Shelf Expiration Date Model / Serial / Lot Power Port 8fr Sngl Lumen Plas - [id number] Implanted:Qty : 1 on 01/05/2023 by Jai Malcolm Jr., MD at [facility] Right: Chest CR BARD : PERIPHERAL VASCULAR [id number] 07/08/2024 [id number] / / [id number] documented as of this encounter Visit Diagnoses [...] Power of Attor johann? No Care Teams Radiotelegraphist Relationship Specialty Start Date End Date Lina Can MD [address] [place] [address] [place] [phone] PCP - General Family Medicine 08/06/22 documented as of this encounter
--- OUTSIDE RECORDS SUMMARY | 2024-05-09 12:15 | External Medical Summary ---
Author Name Unknown Address Unknown Organization [facility] [place] [address] Laboratory Report Ordering Provider Test Date Status DANNIELLE OLVERA 04/18/2024 14:54:35 Final Observation Date Value Abnormality Reference (Units ) Status Phosphate 04/18/2024 14:54:35 3.9 2.5-4.8 (m g/dL) Final Performing Location [facility] [place] [address]
--- OUTSIDE RECORDS SUMMARY | 2024-05-09 12:15 | External Medical Summary ---
Author Name Unknown Address Unknown Organization [facility] [place] [address] Laboratory Report Ordering Provider Test Date Status DANNIELLE OLVERA 04/18/2024 14:54:35 Final Observation Date Value Abnormality Reference (Units ) Status Magnesium 04/18/2024 14:54:35 2.0 1.5-2.6 (m g/dL) Final Performing Location [facility] [place] [address]
--- OUTSIDE RECORDS SUMMARY | 2024-05-09 12:15 | External Medical Summary | Summary of Care ---
Author Name Unknown Organization [facility] Address [address] [place] [address] Phone [phone] Care Team Providers Care Stemming Machine Operator Name Role Phone Lina Can MD Primary Care Prov ider Encounter Details Date Type Department Care Team (Late st Contact Info) Description 04/18/2024 Orders Only Hematology/Oncology Treatment, [place] [address] [place] [address] Chandni Almonte MD 200 [place] [address] Allergies Active Allergy Reactions Criticality Noted Date [...] 2:30 PM EST Nurse Only Hematology/Oncology Treatment, [place] [address] [place], [place] [phone] Nasreen, Chair 9 Hem Onc Scen[place] [address] [place] [address] 04/18/2024 3:00 PM EST Office Visit Hematology/Oncology [place] Nasreen [place] [address] [place] [phone] Heriberto Wiley MD [address] [place] [address] 04/18/2024 3:30 PM EST Pt Ed by Nurse Hematology/Oncology [place] Nasreen [place] [address] [place] [phone] Nasreen, Nurse Hem Onc [facility] [address] [place] [address] 04/19/2024 1:00 PM EST Pharmacy Pharmacy Hematology Oncology [place] [address] [place] [address] [facility] [place], [facility] Hem/Onc [facility] [place] [address] 04/22/2024 12:10 PM EST Laboratory [facility] [place] Nasreen [place] [address] [place] [phone] Nasreen, Lab Scenery 200 Jean [place], [place] [address] 04/22/2024 1:15 PM EST Hem/Onc Treatment Hematology/Oncology Treatment, [place] [address] [place] [phone] Nasreen, Chair 4 Hem Onc Scenery [address] [place] [address] 05/14/2024 9:00 AM EST Office Visit Hematology/Oncology [place] [address] [place], [place] [phone] Chandni Almonte MD [address] [place] [address] 07/19/2024 11:30 AM EDT Office Visit Cardiology, [facility] [address] [facility] [place] [address] Ciro Saini DO [address] [place] [address] 02/03/2025 1:00 PM EDT Office Visit Gynecology/Obstetrics [facility] [address] [place] [address] Nelli Farrell CRNP [address] [place] [address] Scheduled Procedures Name Priority Associated Diagnoses Date/Ti [...] this encounter Medical Devices Implanted Type Area Nursing Scheduler Device Identifier Shelf Expiration Date Model / Serial / Lot Power Port 8fr Sngl Lumen Plas - [id number] Implanted:Qty : 1 on 01/05/2023 by Jai Malcolm Jr., MD at OR [facility] Right: Chest CR BARD : PERIPHERAL VASCULAR [id number] 07/08/2024 [id number] / / [id number] documented as of this encounter Advance Directives [...] Power of Attor johann? No Care Teams Stemming Machine Operator Relationship Specialty Start Date End Date Lina Can MD [address] [place] [address] [place] [phone] PCP - General Family Medicine 08/06/22 documented as of this encounter
--- OUTSIDE RECORDS SUMMARY | 2024-05-09 12:15 | External Medical Summary | Summary of Care ---
Author Name Unknown Organization [facility] Address [address] [place] [address] Phone [phone] Care Team Providers Care Director Of Food And Nutrition Services Name Role Phone Lina Can MD Primary Care Prov ider Reason for Visit * Reason Comments Chemotherapy C6/D1 - FOLFIRI/Zira antonina * Episode Based Medications (Routine) - Closed Specialty Diagnoses / Procedures Referred By Luc king Referred To Contact Diagnoses Encounter for antineoplastic chemotherapy Malignant neoplasm of sigmoid colon (HCC) Procedures VA LEUCOVORIN CALCIUM INJECTION VA PALONOSETRON HCL VA FLUOROURACIL INJECTION VA IRINOTECAN INJECTION VA INJ., ZIRABEV, 10 MG Chandni Almonte MD [address] [place] [address] [place] [address] Phone: tel: fax: Hematology/Oncology Treatment, [address] [address] Phone: tel: fax: Referral ID Status Reason Start Date Expiration Date Visits Re quested Visits Authorized [id number] Closed 11/22/2023 11/21/[phone] Encounter Details Date Type Department Care Team (Latest Contact Info) Description 03/19/2024 1:00 PM EST Hem/Onc Treatment Hematology/Oncolog y Treatment, [address] [address] Nasreen, Chair 1 Hem Onc [place] [address] [place] [address] Encounter for antineoplastic chemotherapy*; Malignant neoplasm of [...] 3 mL/hr over 46 hours intravenously continuous. 32985 mg 4 3:37 PM EST 03/14/20 24 [...] 1:00 PM EST Pharmacy Pharmacy Hematology Oncology [facility] [address] [place] [address] [facility], [facility] Hem/Onc [address] [place] [address] 04/22/2024 1:00 PM EST Laboratory Laboratory [employer] [address] [place] [phone] [place], Lab Scenery [address] [place] [address] 04/22/2024 1:15 PM EST Hem/Onc Treatment Hematology/Oncology Treatment, [place] [address] [place], [place] [phone] Park, Chair 4 Hem Onc Scenery [address] [place] [address] 05/14/2024 9:00 AM EST Office Visit Hematology/Oncology [facility] [place] [address] [place] [phone] Chandni Almonte MD [address] [place] [address] 07/19/2024 11:30 AM EDT Office Visit Cardiology, [facility] [address] [place] [address] Ciro Saini DO [address] [place] [address] 02/03/2025 1:00 PM EDT Office Visit Gynecology/Obstetrics [facility] [address] [place] [address] Nelli Farrell CRNP [address] [place] [address] Scheduled Procedures Name Priority Associated Diagnoses Date/Ti [...] this encounter Medical Devices Implanted Type Area Lace Roller Operator Device Identifier Shelf Expiration Date Model / Serial / Lot Power Port 8fr Sngl Lumen Plas - [id number] Implanted:Qty : 1 on 01/05/2023 by Jai Malcolm Jr., MD at [facility] Right: Chest CR BARD : PERIPHERAL VASCULAR [id number] 07/08/2024 [id number] / / [id number] documented as of this encounter Visit Diagnoses [...] on Mon03/19/24 at 0830, Until Mon03/19/24 at 2050, Maintenance lineIndications:Encounter for antineoplastic chemotherapy,Malignant neoplasm of sigmoid colon (HCC) Start Infusion 03/19/2024 1:32 PM EST 50 mL/hr Palonosetron (Aloxi) inj SOLN 0.25 mg 0.25 mg, IV Push, ONCE, On Mon03/19/24 at 1345, For 1 dose, Restricted per [facility] antiemetic guidelinesIndications:Enco unter for antineoplastic chemotherapy,Malignant neoplasm [...] of Attor johann? No Care Teams Director Of Food And Nutrition Services Relationship Specialty Start Date End Date Lina Can MD [address] [place] [address] [place] [phone] PCP - General Family Medicine 08/06/22 documented as of this encounter
--- OUTSIDE RECORDS SUMMARY | 2024-05-09 12:15 | External Medical Summary ---
Author Name Unknown Address Unknown Organization K09:[facility] [address] [place] [address] Laboratory Report Ordering Provider Test Date Status DANNIELLE OLVERA 04/18/2024 14:54:35 Final Observation Date Value Abnormality Reference (Units ) Status SYNC LEUKOCYTES IN BLOOD BY AUTOMATED COUNT 04/18/2024 14:54:35 9.68 4.00-10.80 (K/uL) Final Segs 04/18/2024 14:54:35 80.6 Above high normal 40.0-75.0 (%) Final Lymphs % 04/18/2024 14:54:35 11.5 Below low normal 18.0-42.0 (%) Final Monos 04/18/2024 14:54:35 7.2 1.0-11.0 (%) Final Eosinophils 04/18/2024 14:54:35 0.5 0.0-6.0 (%) Final Basos 04/18/2024 14:54:35 0.2 0.0-2.0 (%) Final Absolute Segs 04/18/2024 14:54:35 7.80 Above high normal 1.80-7.70 (K/uL) Final Lymphs, absolute 04/18/2024 14:54:35 1.11 1.00-4.80 (K/ul) Final Monos, Abs 04/18/2024 14:54:35 0.70 0.00-1.10 (K/uL) Final Eos, Abs 04/18/2024 14:54:35 0.05 0.00-0.70 (K/uL) Final Basos, Abs 04/18/2024 14:54:35 0.02 0.00-0.20 (K/uL) Final Performing Location [facility] [address] [place] [address]
--- OUTSIDE RECORDS SUMMARY | 2024-05-09 12:15 | External Medical Summary ---
Author Name Unknown Address Unknown Organization K[facility] [place] [address] Laboratory Report Ordering Provider Test Date Status DANNIELLE OLVERA 04/18/2024 14:54:35 Final Observation Date Value Abnormality Reference (Units ) Status WBC, Total 04/18/2024 14:54:35 9.68 4.00-10.8 0 (K/uL) Final RBC 04/18/2024 14:54:35 3.17 3.85-5.15 (M/uL) Final Hemoglobin 04/18/2024 14:54:35 10.4 Below low normal 12 .0-15.3 (g/dL) Final HCT 04/18/2024 14:54:35 32.3 Below low normal 36. 0-45.2 (%) Final MCV 04/18/2024 14:54:35 101.9 81.5-97.5 (fL) Final MCH 04/18/2024 14:54:35 32.8 27.0-34.0 (pg) Final MCHC 04/18/2024 14:54:35 32.2 32.0-36.0 (g/dL) Final RDW 04/18/2024 14:54:35 14.4 11.5-15.5 (%) Final Platelets 04/18/2024 14:54:35 183 140-400 (K /uL) Final MPV 04/18/2024 14:54:35 9.6 6.6-11.1 ( fL) Final Performing Location [facility] [place] [address]
--- OUTSIDE RECORDS SUMMARY | 2024-05-09 12:15 | External Medical Summary | Summary of Care ---
Author Name Unknown Organization [facility] Address [address] [place] [address] Phone [phone] Care Team Providers Care Professional Application Designer Name Role Phone Lina Can MD Primary Care Prov ider Reason for Visit * Reason Onset Date Comments Precert Future 04/19/2024 xgeva Encounter Details Date Type Department Care Team (Late st Contact Info) Description 04/19/2024 Telephone Hematology/Oncology Treatment, [place] [address] [place] [address] Chandni Almonte MD 200 [place] [address] Precert Future (xgeva) Allergies Active Allergy Reactions [...] 12:42 PM EST Order received for xgeva. [place] plan built and routed for signature. Waiting [...] Description 04/22/2024 1:00 PM EST Laboratory Laboratory [facility] [place] [address] [facility] [place] [phone] Nasreen, Lab [address] [place] [address] 04/22/2024 1:15 PM EST Hem/Onc Treatment Hematology/Oncology Treatment, [place] [address] [facility] [place] [phone] Nasreen, Chair 4 Hem Onc [address] [place] [address] 05/14/2024 9:00 AM EST Office Visit Hematology/Oncology [facility] Nasreen [place] [address] [place] [phone] Chandni Almonte MD [address] [facility] [place] [address] 07/19/2024 11:30 AM EDT Office Visit Cardiology, [facility] [address] [place] [address] Ciro Saini, [address] [place] [address] 02/03/2025 1:00 PM EDT Office Visit Gynecology/Obstetrics [facility] [address] [place] [address] Nelli Farrell CRNP [address] [place] [address] Scheduled Orders Name Type Priority Associated Diagnoses [...] this encounter Medical Devices Implanted Type Area Clip On Sunglasses Assembler Device Identifier Shelf Expiration Date Model / Serial / Lot Power Port 8fr Sngl Lumen Plas - [id number] Implanted:Qty : 1 on 01/05/2023 by Jai Malcolm Jr., MD at OR [facility] Right: Chest CR BARD : PERIPHERAL VASCULAR [id number] 07/08/2024 [id number] / / [id number] documented as of this encounter Results * PHOSPHORUS (04/18/2024 2:54 PM EST) Phosphorus 3.9 2.5 - 4.8 mg/dL 04/19/2024 1:32 PM EST [facility] 56-02 Blood Blood sample taken from central line / Unknown Central Line / Unknown 04/18/2024 2:54 PM EST 04/18/2024 2:58 PM EST Chandni Almonte MD LAB BLOOD ORDERABLES Fin al Result [facility] 56-[address] [place] [address] documented in this encounter Visit Diagnoses [...] Power of Attor johann? No Care Teams Professional Application Designer Relationship Specialty Start Date End Date Lina Can MD [address] [place] [address] [place] [address] PCP - General Family Medicine 08/06/22 documented as of this encounter
--- OUTSIDE RECORDS SUMMARY | 2024-05-09 12:15 | External Medical Summary | Summary of Care ---
Author Name Unknown Organization [facility] Address [address] [place] [address] Phone [phone] Care Team Providers Care Dynamic Balancer Name Role Phone Lina Can MD Primary Care Prov ider Reason for Visit * Reason Onset Date Comments Precert Future 04/18/2024 annel Wan Encounter Details Date Type Department Care Team (Late st Contact Info) Description 04/18/2024 Telephone Hematology/Oncology Treatment, [place] [address] [place] [address] Chandni Almonte MD [address] [place] [address] Precert Future (annel Wan) Allergies Active Allergy [...] PM EST Order received for zirabev, lonsurf. [place] plan built. Waiting for auth. Consent signed [...] 1:00 PM EST Pharmacy Pharmacy Hematology Oncology [place] [address] [place] [address] [facility], [facility] Hem/Onc [facility] [place] [address] 04/22/2024 12:10 PM EST Laboratory Laboratory [facility] [place] [address] [place] [phone] Nasreen, Lab [address]en[address] [facility] [place] [address] 04/22/2024 1:15 PM EST Hem/Onc Treatment Hematology/Oncology Treatment, [place] [address] [place] [address] Nasreen, Chair 4 Hem Onc [place] [place] [address] 05/14/2024 9:00 AM EST Office Visit Hematology/Oncology [facility] 200 [facility] [place] [phone] Chandni Almonte MD 200 [facility] [place] [address] 07/19/2024 11:30 AM EDT Office Visit Cardiology, [facility] [address] [place] [address] Ciro Saini DO [address] [place] [address] 02/03/2025 1:00 PM EDT Office Visit Gynecology/Obstetrics [facility] [address] [place] [address] Nelli Farrell CRNP [address] [place] [address] Scheduled Procedures Name Priority Associated Diagnoses Date/Ti [...] this encounter Medical Devices Implanted Type Area Pie Baker Device Identifier Shelf Expiration Date Model / Serial / Lot Power Port 8fr Sngl Lumen Plas - [id number] Implanted:Qty : 1 on 01/05/2023 by Jai Malcolm Jr., MD at [facility] Right: Chest CR BARD : PERIPHERAL VASCULAR [id number] 07/08/2024 [id number] / / [id number] documented as of this encounter Advance Directives [...] Power of Attor johann? No Care Teams Dynamic Balancer Relationship Specialty Start Date End Date Lina Can MD [address] [place] [address] [place] [address] PCP - General Family Medicine 08/06/22 documented as of this encounter
--- OUTSIDE RECORDS SUMMARY | 2024-05-09 12:15 | External Medical Summary | Summary of Care ---
Author Name Unknown Organization [facility] Address [address] [place] [address] Phone [phone] Care Team Providers Care Ms Sql Server Developer Name Role Phone Lina Can MD Primary Care Prov ider Reason for Visit * Reason Onset Date Comments Precert Future 04/18/2024 annel Wan Encounter Details Date Type Department Care Team (Late st Contact Info) Description 04/18/2024 Telephone Hematology/Oncology Treatment, [place] [address] [place] [address] Chandni Almonte MD [address] [place] [address] Precert Future (annel Wan) Allergies Active Allergy [...] PM EST Order received for zirabev, lonsurf. [place] plan built. Waiting for auth. Consent signed [...] 1:00 PM EST Pharmacy Pharmacy Hematology Oncology [facility] [address] [place] [address] [facility], [facility] Hem/Onc [address] [place] [address] 04/22/2024 12:10 PM EST Laboratory Laboratory [facility] [address] [place] [address] Terrance [place] [address] [place] [address] 04/22/2024 1:15 PM EST Hem/Onc Treatment Hematology/Oncology Treatment, [place] [address] [place] [phone] [place], Chair 4 Hem Onc [facility] [address] [place] [address] 05/14/2024 9:00 AM EST Office Visit Hematology/Oncology [facility] [place] [address] [place] [phone] Chandni Almonte MD [address] [place] [address] 07/19/2024 11:30 AM EDT Office Visit Cardiology, [facility] [address] [place] [address] Ciro Saini DO [address] [place] [address] 02/03/2025 1:00 PM EDT Office Visit Gynecology/Obstetrics [facility] [address] [place] [address] Nelli Farrell CRNP [address] [place] [address] Scheduled Procedures Name Priority Associated Diagnoses Date/Ti [...] this encounter Medical Devices Implanted Type Area Tilt Wall Supervisor Device Identifier Shelf Expiration Date Model / Serial / Lot Power Port 8fr Sngl Lumen Plas - [id number] Implanted:Qty : 1 on 01/05/2023 by Jai Malcolm Jr., MD at [facility] Right: Chest CR BARD : PERIPHERAL VASCULAR [id number] 07/08/2024 [id number] / / [id number] documented as of this encounter Advance Directives [...] Power of Attor johann? No Care Teams Ms Sql Server Developer Relationship Specialty Start Date End Date Lina Can MD [address] [place] [address] [place] [phone] PCP - General Family Medicine 08/06/22 documented as of this encounter
--- OUTSIDE RECORDS SUMMARY | 2024-05-09 12:15 | External Medical Summary | Summary of Care ---
Author Name Unknown Organization [facility] Address [address] [place] [address] Phone [phone] Care Team Providers Care Ruching Machine Operator Name Role Phone Lina Can MD Primary Care Prov ider Reason for Visit * Reason Comments Education Encounter Details Date Type Department Care Team (Late st Contact Info) Description 04/18/2024 3:30 PM EST Pt Ed by Nurse Hematology/Oncology [facility] [place] [facility] [place] [address] Nurse Nasreen Hem Onc [facility] 200 [facility] [place] [address] Arrived Allergies Active Allergy Reactions Criticality Noted Date [...] documented in this encounter Nursing Notes * Tereza Gray RN - 04/18/2024 4:08 PM EST Nurse education completed for annel/ cara documented in this encounter Plan of Treatment Upcoming Encounters Date Type Department Care Team (Late st Contact Info) Description 04/19/2024 1:00 PM EST Pharmacy Pharmacy Hematology Oncology [facility] [address] [place] [address] [facility], [facility] Hem/Onc [facility] [place] [address] 04/22/2024 12:10 PM EST Laboratory Laboratory [facility] [place] [address] [place] [phone] Nasreen, Lab [facility] 200 [facility] [place] [address] 04/22/2024 1:15 PM EST Hem[facility] [address] [place] [phone] Nasreen, Chair [address] [facility] [place] [address] 05/14/2024 9:00 AM EST Office Visit Hematology/Oncology [facility] Nasreen [place] [address] [place] [phone] Chandni Almonte MD [address] [place] [address] 07/19/2024 11:30 AM EDT Office Visit Cardiology, [facility] [address] [place] [address] Ciro Saini, [address] [place] [address] 02/03/2025 1:00 PM EDT Office Visit Gynecology/Obstetrics [facility] [address] [place] [address] Nelli Farrell CRNP [address] [place] [address] Scheduled Procedures Name Priority Associated Diagnoses Date/Ti [...] this encounter Medical Devices Implanted Type Area Script Developer Device Identifier Shelf Expiration Date Model / Serial / Lot Power Port 8fr Sngl Lumen Plas - [id number] Implanted:Qty : 1 on 01/05/2023 by Jai Malcolm Jr., MD at OR [facility] Right: Chest CR BARD : PERIPHERAL VASCULAR [id number] 07/08/2024 [id number] / / [id number] documented as of this encounter Advance Directives [...] Power of Attor johann? No Care Teams Ruching Machine Operator Relationship Specialty Start Date End Date Lina Can MD [address] [place] [address] [place] [phone] PCP - General Family Medicine 08/06/22 documented as of this encounter
--- OUTSIDE RECORDS SUMMARY | 2024-05-09 12:16 | External Medical Summary | Summary of Care ---
Author Name Unknown Organization [facility] Address [address] [place] [address] Phone [phone] Care Team Providers Care Insurance Account Manager Name Role Phone Lina Can MD Primary Care Prov ider Reason for Visit * Reason Onset Date Comments Precert Future 04/02/2024 Lumakras/Vectibi x Encounter Details Date Type Department Care Team (Late st Contact Info) Description 04/02/2024 Refill Hematology/Oncology [facility] [address] [place] [address] Chandni Almonte MD [address] [place] [address] Malignant neoplasm of sigmoid colon (HCC)*; Metastasis [...] Additional Information Patient not taking.Reported on 04/05/2024 oxyCODONE HCl 5 MG Oral Tablet (Oxy IR)Indications:M alignant neoplasm of sigmoid colon (HCC),Metastasis to bone (HCC) Take 1 Tablet by mouth every 4 hours as needed for Pain, Moderate. 60 Tablet 04/15/19 25 Active Pegfilgrastim-cb qv 6 MG/0.6ML Subcutaneous Solution Prefilled Syringe (Udenyca)Indicat ions:Malignant neoplasm of sigmoid colon (HCC),Metastasis to bone (HCC),Chemothera py-induced neutropenia (HCC) Inject 6 mg (1 syringe) under the skin 24 hours after FOLFOX pump disconnect every 2 weeks. 1.2 mL 5 4 12:25 PM EDT 01/08/20 24 024 [...] 3 mL/hr over 46 hours intravenously continuous. 27354 mg 4 3:37 PM EST 03/14/20 24 [...] encounter Miscellaneous Notes * Telephone Encounter - Saud Gray RN - 04/16/2024 8:38 AM EST Called patient to check on her. She states that she has not had a BM yet, but is feeling a little better, no nausea. She "feels stuff moving" so feels that she may have a BM sometime today. Advised her to take miralax again later this morning if no BM and to call us if still no results. She verbalized understanding. * Telephone Encounter - Saud Gray RN - 04/15/2024 4:30 PM ESTSigned Prescriptions: Disp Refills oxyCODONE HCl 5 MG Oral Tablet (Oxy IR) 60 Tab*0 Sig: Take 1 Tablet by mouth every 4 hours as needed for Pain, Moderate.Authorizing Provider: ZACKERY WILEY-------- * Telephone Encounter - Zackery Wiley MD - 04/15/2024 4:29 PM EST E-prescribed oxycodone. * Addendum Note - Saud Gray RN - 04/15/2024 4:13 PM ESTAddended by: SAUD GRAY on: 04/15/2024 04:13 PM Modules accepted: Orders * Telephone Encounter - Saud Gray RN - 04/15/2024 4:00 PM EST Called patient. She states that she has been having worsening bone pain. Has percocet Dr Almonte had prescribed her, has been taking about 3 of these a day. Takes tramadol and a tab of tylenol before bed instead of percocet because she feels the tramadol lasts longer at night so that she doesn't wake up in pain. She requests a refill for this- DAVID Gonzalez. Since starting percocet more often has needed to take zofran once a day. She states that since starting percocet more often, she has had constipation. Still passing gas, but has been 4-5 days since last BM. Took dulcolax and colace this morning. Advised her to take colaceBID and miralax once a day as needed for constipation- should take miralax today. Advised her that zofran can increase constipation, try compazine instead. Advised her to update us tomorrow on constipation. If she is unable to pass gas or has increasing abdominal pain/ discomfort before having a BM, patient to go to ER. She verbalized understanding. Dr Almonte/ covering providers: pended oxycodone instead of percocet- unsure if this would be better for patient to try since pain is increasing, oxycodone demand may increase as well. * Telephone Encounter - Cezar Lucas OSA - 04/15/2024 2:00 PM EST Patient scheduled and aware. Requested call back from nurse. Please call patient * Telephone Encounter - Saud Gray RN - 04/15/2024 1:23 PM EST Lumakras is being shipped 04/17, patient will receive 04/18 or 04/19. Scheduling: please call patient to schedule for next week - labs "CBCd, CMP, mag"- can be day of or day prior - 2 hour appt "C1D1 vectibix" (Suzy) Thanks! * Telephone Encounter - Jacinto Delaney RN - 04/11/2024 7:39 AM EST [facility] can fill, copay 0$. MTM to follow up on 04/16. * Telephone Encounter - Saud Gray RN - 04/09/2024 7:29 AM EST Referral for lumakras entered. Patient has MTM appt today 04/09 to release rx. * Telephone Encounter - Jacinto Delaney RN - 04/05/2024 8:38 AM EST Lumakras/Vectibix referrals are entered. MTM- fyi regarding Lumakras auth. Awaiting MAC/PFC review. * Telephone Encounter - Jacinto Delaney RN - 04/04/2024 9:11 AM EST Referral entered for Vectibix, awaiting Lumakras referral. Per Dr. Almonte- if treatment with both medications can start in 2 weeks we can proceed with both, ifit's going to be longer than that, ok to proceed with Vectibix and start Lumakras after. * Telephone Encounter - Jacinto Delaney RN - 04/02/2024 3:19 PM EST Education completed today. Consent signed. * Telephone Encounter - Jacinto Delaney RN - 04/02/2024 9:03 AM EST Orders received, plan built and routed. MTM- FYI regarding order for Lumakras Awaiting referral for both medications. Consent needs signed -- Dr. Almonte meeting with patient today. Hep B labs: completed 12/22/22 Pt has script for both Zofran/Compazine. Lab orders placed for every 2 weeks : CBCD,CMP,Mag documented in this encounter Plan of Treatment Upcoming Encounters Date Type Department Care Team (Late st Contact Info) Description 04/16/2024 9:45 AM EST Pharmacy Pharmacy Hematology Oncology [facility] [address] [place] [address] [facility], [facility] Hem/Onc [facility] [place] [address] 04/16/2024 10:00 AM EST [facility] [address] [place] [phone] Terrance Long [facility] [address] [place] [address] 04/22/2024 12:10 PM EST Laboratory Laboratory [facility] Nasreen [place] [address] [place] [phone] Nasreen Lab [facility] [address] [facility] [place] [address] 04/22/2024 1:15 PM EST Hem/Onc Treatment Hematology/Oncology Treatment, [place] [address] [place] [phone] Nasreen, Chair 4 Hem Onc [facility] [address] [place] [address] 05/14/2024 9:00 AM EST Office Visit Hematology/Oncology [facility] [place] [address] [place] [phone] Chandni Almonte MD [address] [place] [address] 07/19/2024 11:30 AM EDT Office Visit Cardiology, [facility] [address] [facility] [address] [place] [address] Ciro Saini, [address] [place] [address] 02/03/2025 1:00 PM EDT Office Visit Gynecology/Obstetrics [facility] [address] [place] [address] Nelli Farrell CRNP [address] [place] [address] Scheduled Orders Name Type Priority Associated Diagnoses Orde r Schedule CBC WITH WBC DIFFERENTIAL Lab STAT Malignant neoplasm of sigmoid colon (HCC) Metastasis to bone (HCC) Every 2 Weeks for 20 Occurrences starting 04/02/2024 until 04/02/2025 COMPREHENSIVE METABOLIC PANEL Lab STAT Malignant neoplasm of sigmoid colon (HCC) Metastasis to bone (HCC) Every 2 Weeks for 20 Occurrences starting 04/02/2024 until 04/02/2025 MAGNESIUM Lab STAT Malignant neoplasm of sigmoid colon (HCC) Metastasis to bone (HCC) Every 2 Weeks for 20 Occurrences starting 04/02/2024 until 04/02/2025 Scheduled Procedures Name Priority Associated Diagnoses Date/Ti [...] this encounter Medical Devices Implanted Type Area Steel Erector Apprentice Device Identifier Shelf Expiration Date Model / Serial / Lot Power Port 8fr Sngl Lumen Plas - [id number] Implanted:Qty : 1 on 01/05/2023 by Jai Malcolm Jr., MD at OR [facility] Right: Chest CR BARD : PERIPHERAL VASCULAR [id number] 07/08/2024 [id number] / / [id number] documented as of this encounter Visit Diagnoses [...] Power of Attor johann? No Care Teams Insurance Account Manager Relationship Specialty Start Date End Date Lina Can MD [address] [place] [address] [place] [phone] PCP - General Family Medicine 08/06/22 documented as of this encounter
--- OUTSIDE RECORDS SUMMARY | 2024-05-09 12:16 | External Medical Summary | Summary of Care ---
Author Name Unknown Organization [facility] Address [address] [place] [address] Phone [phone] Care Team Providers Care Check Pilot Name Role Phone Lina Can MD Primary Care Prov ider Reason for Visit * Reason Onset Date Comments Information 04/16/2024 Encounter Details Date Type Department Care Team (Late st Contact Info) Description 04/16/2024 Telephone Hematology/Oncology Treatment, [place] [address] [place] [address] Chandni Almonte MD [address] [place] [address] Information Allergies Active Allergy Reactions Criticality Noted [...] Telephone Encounter - Glo Drake OSA - 04/16/2024 12:13 PM EST Pt is scheduled * Telephone Encounter - Tereza Gray RN - 04/16/2024 11:51 AM EST Received message from pharmacy. Lumakras/ vectibix approved for KRAS G12C- patient has KRAS G12V variant. Reviewed with Dr Wiley- he would like to see patient to discuss. Current treatment plan to be placed on hold. Called patient. She is agreeable to this. Scheduling: please add patient for 04/18/24 - port flush "labs from port- CBCd, CMP, mag, urine" at 2:30pm - 30 min return appt with Dr Wiley at 3pm (staff message sent with who to [facility]) - nurse education visit at 3:30pm Patient already aware. Thanks! documented in this encounter Plan of Treatment Upcoming Encounters Date Type Department Care Team (Late st Contact Info) Description 04/18/2024 2:30 PM EST Nurse Only Hematology/Oncology Treatment, [address] [place] [address] Nasreen, Chair 9 Hem Onc [address] [place] [address] 04/18/2024 3:00 PM EST Office Visit Hematology/Oncology [facility] Nasreen [address] [place] [address] Heriberto Wiley MD [address] [facility] [place] [address] 04/18/2024 3:30 PM EST Pt Ed by Nurse Hematology/Oncology [facility] [address] [place] [phone] Nasreen Nurse Hem Onc [address] [place] [address] 04/19/2024 1:00 PM EST Pharmacy Pharmacy Hematology Oncology [facility] [address] [place] [address] [facility] [place] [facility], [facility] Hem/Onc [address] [place] [address] 04/22/2024 12:10 PM EST Laboratory Laboratory [facility] Nas[place] [address] [place] [phone] Nasreen, Lab [address]en[address] [place] [address] 04/22/2024 1:15 PM EST Hem/Onc Treatment Hematology/Oncology Treatment [place] [address] [place] [phone] Nasreen, Chair 4 Hem Onc [address] [place], [place] [address] 05/14/2024 9:00 AM EST Office Visit Hematology/Oncology [facility] [place] [address] [place] [phone] Chandni Almonte MD [address] [place] [address] 07/19/2024 11:30 AM EDT Office Visit Cardiology, [facility] [address] [place] [address] Ciro Saini, [address] [place] [address] 02/03/2025 1:00 PM EDT Office Visit Gynecology/Obstetrics [facility] [address] [place] [address] Nelli Farrell CRNP [address] [place] [address] Scheduled Procedures Name Priority Associated Diagnoses Date/Ti [...] this encounter Medical Devices Implanted Type Area Stone Carriage Operator Device Identifier Shelf Expiration Date Model / Serial / Lot Power Port 8fr Sngl Lumen Plas - [id number] Implanted:Qty : 1 on 01/05/2023 by Jai Malcolm Jr., MD at OR [facility] Right: Chest CR BARD : PERIPHERAL VASCULAR [id number] 07/08/2024 [id number] / / [id number] documented as of this encounter Advance Directives [...] Power of Attor johann? No Care Teams Check Pilot Relationship Specialty Start Date End Date Lina Can MD [address] [place] [address] [place] [phone] PCP - General Family Medicine 08/06/22 documented as of this encounter
--- OUTSIDE RECORDS SUMMARY | 2024-05-09 12:16 | External Medical Summary | Summary of Care ---
Author Name Unknown Organization [facility] Address [address] [place] [address] Phone [phone] Care Team Providers Care Manager Instrumentation Name Role Phone Lina Can MD Primary Care Prov ider Reason for Visit * Reason Onset Date Comments Medication Refill 04/11/2024 Encounter Details Date Type Department Care Team (Late st Contact Info) Description 04/11/2024 Refill Hematology/Oncology, [facility] [address] [place] [address] Chandni Almonte MD [address] [place] [address] Malignant neoplasm of sigmoid colon (HCC) Allergies Active Allergy Reactions Criticality Noted Date Comments Amoxicillin-Pot Clavulanate Nausea/vomiting 07/12/2022 GI upset Doxycycline Nausea/vomiting 07/12/2022 GI upset Oxaliplatin Flushing High 07/27/2023 Shortness of breath Metoclopramide Hives 08/10/2022 documented as of this encounter (statuses as of 04/11/2024) Medications Acetaminophen 500 MG Oral Tablet (Tylenol [...] Additional Information Patient not taking.Reported on 04/05/2024 Sotorasib 120 MG Oral TabletIndication s:Malignant neoplasm of sigmoid colon (HCC) Take 960 mg by mouth in the morning. With or without food. 240 Tablet 5 04/09/20 24 Active traMADol HCl 50 MG Oral Tablet (Ultram)Indicati ons:Malignant neoplasm of sigmoid colon (HCC) Take 1 Tablet by mouth every 6 hours as needed for Pain, Moderate. 30 Tablet 04/11/19 25 Active traMADol HCl 50 MG Oral Tablet (Ultram)Indicati ons:Malignant neoplasm of sigmoid colon (HCC) Take 1 Tablet by mouth every 6 hours as needed for Pain, Moderate. 30 Tablet 02/15/20 24 025 Discontin ued(Refil l) documented as of this encounter (statuses as of 04/11/2024) Active Problems Problem Noted Date Diagnosed Date [...] as of this encounter (statuses as of 04/11/2024) Immunizations No known immunizationsdocumented as of this [...] encounter Miscellaneous Notes * Telephone Encounter - Nelli España LPN - 04/11/2024 12:35 PM ESTPending Prescriptions: Disp Refills traMADol HCl 50 MG Oral Tablet (Ultram) 30 Tab*0 Sig: Take 1 Tablet by mouth every 6 hours as needed for Pain, Moderate. * Telephone Encounter - Nelli España LPN - 04/11/2024 12:33 PM EST Refill request for Tramadol 50 mg tab pended below: Last Refill: 02/15/2024 PDMP: Last filled 02/15/2024, Qty: 30, 7-day supply Last seen: 04/02/2024 Next Appt.: 05/14/2024 Requesting: Patient * Telephone Encounter - Kristen Burnham LPN - 04/11/2024 11:46 AM ESTPending Prescriptions: Disp Refills traMADol HCl 50 MG Oral Tablet (Ultram) 30 Tab*0 Sig: Take 1 Tablet by mouth every 6 hours as needed for Pain, Moderate. documented in this encounter Plan of Treatment Upcoming Encounters Date Type Department Care Team (Late st Contact Info) Description 04/15/2024 9:30 AM EST Laboratory Laboratory, [facility] [address] [place] [phone] [facility] [address] [place] [address] 04/16/2024 9:45 AM EST Pharmacy Pharmacy Hematology Oncology [facility] [address] [place] [address] [facility], [facility] Hem/Onc [address] [place] [address] 05/14/2024 9:00 AM EST Office Visit [facility]ology[facility] [address] [facility] [place] [phone] Chandni Almonte MD [address] [facility] [place] [address] 07/19/2024 11:30 AM EDT Office Visit Cardiology, [facility] [address] [place] [address] Ciro Saini DO [address] [place] [address] 02/03/2025 1:00 PM EDT Office Visit Gynecology/Obstetrics [facility] [address] [place] [address] Nelli Farrell CRNP [address] [place] [address] Scheduled Procedures Name Priority Associated Diagnoses Date/Ti [...] this encounter Medical Devices Implanted Type Area Granulizing Machine Operator Device Identifier Shelf Expiration Date Model / Serial / Lot Power Port 8fr Sngl Lumen Plas - [id number] Implanted:Qty : 1 on 01/05/2023 by Jai Malcolm Jr., MD at [facility] Right: Chest CR BARD : PERIPHERAL VASCULAR [id number] 07/08/2024 [id number] / / [id number] documented as of this encounter Visit Diagnoses [...] of Attor johann? No Care Teams Manager Instrumentation Relationship Specialty Start Date End Date Lina Can MD [address] [place] [address] [place] [phone] PCP - General Family Medicine 08/06/22 documented as of this encounter
--- OUTSIDE RECORDS SUMMARY | 2024-05-09 12:16 | External Medical Summary | Summary of Care ---
Author Name Unknown Organization [facility] Address [address] [place] [address] Phone [phone] Care Team Providers Care Supervisor [employer] Name Role Phone Lina Can MD Primary Care Prov ider Reason for Visit * Reason Onset Date Comments Precert Future 04/02/2024 Lumakras/Vectibi x Encounter Details Date Type Department Care Team (Late st Contact Info) Description 04/02/2024 Telephone Hematology/Oncology [facility] [address] [place] [address] Chandni Almonte MD [address] [place] [address] Precert Future (Lumakras/Vectibix) Allergies Active Allergy Reactions Criticality Noted Date Comments Amoxicillin-Pot Clavulanate Nausea/vomiting 07/12/2022 GI upset Doxycycline Nausea/vomiting 07/12/2022 GI upset Oxaliplatin Flushing High 07/27/2023 Shortness of breath Metoclopramide Hives 08/10/2022 documented as of this encounter (statuses as of 04/15/2024) Medications Acetaminophen 500 MG Oral Tablet (Tylenol [...] Additional Information Patient not taking.Reported on 04/05/2024 Pegfilgrastim-cb qv 6 MG/0.6ML Subcutaneous Solution Prefilled [...] 6 MG/0.6ML Subcutaneous Solution Prefilled Syringe (Pegfilgrastim)I ndications:Malig nant neoplasm of sigmoid colon (HCC),Prevention of chemotherapy-ind [...] 3 mL/hr over 46 hours intravenously continuous. 33640 mg 4 3:37 PM EST 03/14/20 24 024 Discontin ued(Medic ation List Clean Up) documented as of this encounter (statuses as of 04/15/2024) Active Problems Problem Noted Date Diagnosed Date [...] as of this encounter (statuses as of 04/15/2024) Immunizations No known immunizationsdocumented as of this [...] Telephone Encounter - Tereza Gray RN - 04/15/2024 1:23 PM EST [...] up on 04/16. * Telephone Encounter - Tereza Gray RN - 04/09/2024 7:29 AM EST [...] EST Orders received, plan built and routed. [facility] regarding order for Lumakras Awaiting referral for [...] 9:45 AM EST Pharmacy Pharmacy Hematology Oncology [facility] [address] [place] [address] [facility] [place], [facility] Hem/Onc [address] [place] [address] 04/16/2024 10:00 AM EST Laboratory Laboratory, [facility] [place] [phone] Terrance Long [facility] [place] [address] 05/14/2024 9:00 AM EST Office Visit Hematology/Oncology [facility] [address] [facility] [place] [phone] Chandni Almonte MD 200 [facility] [place] [address] 07/19/2024 11:30 AM EDT Office Visit Cardiology, [facility] [address] [place] [address] Ciro Saini DO 132 [facility] [place] [address] 02/03/2025 1:00 PM EDT Office Visit Gynecology/Obstetrics [facility] [address] [place] [address] Backer, SANDRA [place] [address] [place] [address] Scheduled Orders Name Type Priority Associated Diagnoses [...] this encounter Medical Devices Implanted Type Area Application Spec Device Identifier Shelf Expiration Date Model / Serial / Lot Power Port 8fr Sngl Lumen Plas - [id number] Implanted:Qty : 1 on 01/05/2023 by Jai Malcolm Jr., MD at OR [facility] Right: Chest CR BARD : PERIPHERAL VASCULAR [id number] 07/08/2024 [id number] / / [id number] documented as of this encounter Visit Diagnoses [...] Power of Attor johann? No Care Teams Supervisor [employer] Relationship Specialty Start Date End Date Lina Can MD [address] [place] [address] [place] [phone] PCP - General Family Medicine 08/06/22 documented as of this encounter
--- OUTSIDE RECORDS SUMMARY | 2024-05-09 12:16 | External Medical Summary | Summary of Care ---
Author Name Unknown Organization [facility] Address [address] [place] [address] Phone [phone] Care Team Providers Care Staff Engineer Name Role Phone Lina Can MD Primary Care Prov ider Reason for Visit * Reason Onset Date Comments Precert Future 04/02/2024 Lumakras/Vectibi x Encounter Details Date Type Department Care Team (Late st Contact Info) Description 04/02/2024 Telephone Hematology/Oncology [facility] [address] [place] [address] Chandni Almonte MD [address] [place] [address] Precert Future (Lumakras/Vectibix) Allergies Active Allergy Reactions Criticality Noted Date Comments Amoxicillin-Pot Clavulanate Nausea/vomiting 07/12/2022 GI upset Doxycycline Nausea/vomiting 07/12/2022 GI upset Oxaliplatin Flushing High 07/27/2023 Shortness of breath Metoclopramide Hives 08/10/2022 documented as of this encounter (statuses as of 04/09/2024) Medications Acetaminophen 500 MG Oral Tablet (Tylenol [...] Nausea. 30 Tablet 1 12/18/19 24 Active traMADol HCl 50 MG Oral Tablet (Ultram)Indicati ons:Malignant neoplasm of sigmoid colon (HCC) Take 1 Tablet by mouth every 6 hours as needed for Pain, Moderate. 30 Tablet 02/15/20 24 Active Metoprolol Succinate ER 25 MG [...] 024 Discontin ued(Medic ation List Clean Up) Neulasta 6 MG/0.6ML Subcutaneous Solution Prefilled Syringe [...] 3 mL/hr over 46 hours intravenously continuous. 69023 mg 4 3:37 PM EST 03/14/20 24 024 Discontin ued(Medic ation List Clean Up) documented as of this encounter (statuses as of 04/09/2024) Active Problems Problem Noted Date Diagnosed Date [...] as of this encounter (statuses as of 04/09/2024) Immunizations No known immunizationsdocumented as of this [...] - 04/09/2024 7:29 AM EST Referral for jewels entered. Patient has MTM appt today 04/09 [...] Care Team (Late st Contact Info) Description 04/09/2024 1:30 PM EST Pharmacy Pharmacy Hematology Oncology [place] [address] [place] [address] [facility] [place] Hem/Onc [address] [place] [address] 04/15/2024 9:30 AM EST Laboratory Laboratory, [facility] [place] [phone] Terrance Long [facility] [place] [address] 05/14/2024 9:00 AM EST Office [facility] 200 [facility] [place] [address] Chandni Almonte MD 200 [facility] [place] [address] 07/19/2024 11:30 AM EDT Office Visit Cardiology, [facility] [place] [address] Ciro Saini DO [facility] [place] [address] 02/03/2025 1:00 PM EDT Office Visit Gynecology/Obstetrics [facility] [place] [address] Nelli Farrell CRNP [facility] [place] [address] Scheduled Orders Name Type Priority Associated Diagnoses [...] this encounter Medical Devices Implanted Type Area Art Handler Device Identifier Shelf Expiration Date Model / Serial / Lot Power Port 8fr Sngl Lumen Plas - [id number] Implanted:Qty : 1 on 01/05/2023 by Jai Malcolm Jr., MD at [facility] Right: Chest CR BARD : PERIPHERAL VASCULAR [id number] 07/08/2024 [id number] / / [id number] documented as of this encounter Visit Diagnoses [...] Power of Attor johann? No Care Teams Staff Engineer Relationship Specialty Start Date End Date Lina Can MD [address] [place] [address] [place] [phone] PCP - General Family Medicine 08/06/22 documented as of this encounter
--- OUTSIDE RECORDS SUMMARY | 2024-05-09 12:16 | External Medical Summary | Summary of Care ---
Author Name Unknown Organization [facility] Address [address] [place] [address] Phone [phone] Care Team Providers Care Inspector Barrel Name Role Phone Lina Can MD Primary Care Prov ider Reason for Referral * Evaluate & Treat - Unlimited Visits (Within 10 days (routine)) - Authorized Specialty Diagnoses / Procedures Referred By Contac t Referred To Contact Pharmacist / Pharmacy Diagnoses Malignant neoplasm of sigmoid colon (HCC) Monserrat Sweeney, [facility] [address] [place] [address] Phone: tel: fax: Referral ID Status Reason Start Date Expiration Date Visits Requested Visits Authorized [id number] Authorized Specialty Services Required 4 99 99 Question Answer Referral Priority Within 10 days (routine) [facility] Referring Provider Role: Specialist Specialty: Heme/Onc Reason [...] have their medication therapy managed by the [facility] ([facility]) per established policies, procedures, and protocols. I also certify that this referral may serve as an initiation of service for the management of drug therapy in the above noted patient. [facility] providers will be responsible for scheduling patient visits, obtaining appropriate laboratory studies, and adjusting medication management therapy per patient's need, in addition to those roles spelled out in the clinic policy, procedures, and drug management protocols. I understand that the service provided by the [facility] Clinic is voluntary and have informed patient that they can refuse the service at their discretion. I am aware that the [facility] will provide me with a copy of the patient encounter via my [employer]. I authorize the [facility] to carry out these activities on my behalf. I consider this program to be a necessary part of the patient's medical care. Encounter Details Date Type Department Care Team (Late st Contact Info) Description 04/04/2024 Orders Only Hematology/Oncology [employer] [facility] [place] [address] Chandni Almonte MD 200 [facility] [place] [address] Malignant neoplasm of sigmoid colon (HCC)* Allergies [...] for Nausea. 30 Tablet 1 4 Active traMADol HCl 50 MG Oral Tablet (Ultram)Indicati ons:Malignant neoplasm of sigmoid colon (HCC) Take 1 Tablet by mouth every 6 hours as needed for Pain, Moderate. 30 Tablet 4 Active Metoprolol Succinate ER 25 MG [...] With or without food. 240 Tablet 5 4 Active documented as of this encounter (statuses [...] Miscellaneous Notes * Addendum Note - Monserrat Sweeney [facility] - 04/09/2024 3:23 PM ESTAddended by: MONSERRAT SWEENEY on: 04/09/2024 03:23 PM Modules accepted: Orders documented in this encounter Plan of Treatment Upcoming Encounters Date Type Department Care Team (Late st Contact Info) Description 04/15/2024 9:30 AM EST Laboratory Laboratory, [facility] [address] [place] [phone] [facility] [address] [place] [address] 05/14/2024 9:00 AM EST Office Visit Hematology/Oncology [facility] 200 [facility] [place] [phone] Chandni Almonte MD 200 [facility] [place] [address] 07/19/2024 11:30 AM EDT Office Visit Cardiology, [facility] [address] [place] [address] Ciro Saini DO [address] [place] [address] 02/03/2025 1:00 PM EDT Office Visit Gynecology/Obstetrics [facility] [address] [place] [address] Nelli Farrell CRNP [address] [place] [address] Scheduled Orders Name Type Priority Associated Diagnoses Orde r Schedule COMPREHENSIVE METABOLIC PANEL Lab STAT Malignant neoplasm of sigmoid colon (HCC) Every 3 Weeks for 4 Occurrences starting 04/09/2024 until 04/09/2025 COMPREHENSIVE METABOLIC PANEL Lab STAT Malignant neoplasm of sigmoid colon (HCC) Every Month for 12 Occurrences starting 04/09/2024 until 04/09/2025 CBC WITH WBC DIFFERENTIAL Lab STAT Malignant neoplasm of sigmoid colon (HCC) Every Month for 12 Occurrences starting 04/09/2024 until 04/09/2025 Scheduled Procedures Name Priority Associated Diagnoses Date/Ti me PRE / POST CARE Malignant neoplasm of sigmoid colon (HCC) 11/03/2023 9:00 AM EDT Scheduled Referrals Name Type Priority Associated Diagnoses Orde r Schedule PHARMACIST MEDS THERAPY MGMT REFERRAL OP Referral Within 10 days (routine) Malignant neoplasm of sigmoid colon (HCC) Ordered: 04/09/2024 Health Maintenance Due Date Last Done Comments [...] this encounter Medical Devices Implanted Type Area Flange Machine Operator Device Identifier Shelf Expiration Date Model / Serial / Lot Power Port 8fr Sngl Lumen Plas - [id number] Implanted:Qty : 1 on 01/05/2023 by Jai Malcolm Jr., MD at OR [facility] Right: Chest CR BARD : PERIPHERAL VASCULAR [id number] 07/08/2024 [id number] / / [id number] documented as of this encounter Visit Diagnoses [...] Power of Attor johann? No Care Teams Inspector Barrel Relationship Specialty Start Date End Date Lina Can MD [address] [place] [address] [place] [phone] PCP - General Family Medicine 08/06/22 documented as of this encounter
--- OUTSIDE RECORDS SUMMARY | 2024-05-09 12:16 | External Medical Summary | Summary of Care ---
Author Name Unknown Organization [facility] Address [address] [place] [address] Phone [phone] Care Team Providers Care Aviation Neuropsychologist Name Role Phone Lina Can MD Primary Care Prov ider Reason for Visit * Reason Onset Date Comments Precert Future 04/02/2024 Lumakras/Vectibi x Encounter Details Date Type Department Care Team (Late st Contact Info) Description 04/02/2024 Telephone Hematology/Oncology [facility] [address] [place] [address] Chandni Almonte MD [address] [place] [address] Precert Future (Lumakras/Vectibix) Allergies Active Allergy Reactions [...] 3 mL/hr over 46 hours intravenously continuous. 31104 mg 4 3:37 PM EST 03/14/20 24 [...] Entry Date Author No 11/25/2022 5:16 PM COOPERT Nikita Ramirez RN documented in this encounter Miscellaneous Notes * Telephone Encounter - Cezar Lucas OSA - 04/15/2024 2:00 PM EST Patient scheduled and aware. Requested call back from nurse. Please call patient * Telephone Encounter - Tereza Gray RN [...] EST Orders received, plan built and routed. [facility] regarding order for Lumakras Awaiting [...] 9:45 AM EST Pharmacy Pharmacy Hematology Oncology [place] [address] [place] [address] [facility] Hem/Onc [facility] [place] [address] 04/16/2024 10:00 AM EST Laboratory Laboratory, [address] [phone] Terrance Long [facility] 132 [facility] [place] [address] 04/22/2024 12:10 PM EST Laboratory Laboratory Jean Downey [place] [address] [place] [phone] Terrance [place] 200 [address] [place] [address] 04/22/2024 1:15 PM EST Hem/Onc Treatment Hematology/Oncology Treatment, [place] [address] [place] [address] Park, Chair 4 Hem Onc [facility] [address] [facility] [address] [place], [place] [address] 05/14/2024 9:00 AM EST Office Visit Hematology/Oncology [facility] [place] [address] [place] [phone] Chandni Almonte MD [address] [place] [address] 07/19/2024 11:30 AM EDT Office Visit Cardiology, [facility] [address] [place] [address] Ciro Saini DO [address] [place] [address] 02/03/2025 1:00 PM EDT Office Visit Gynecology/Obstetrics [facility] [address] [place] [address] Nelli Farrell CRNP [address] [place] [address] Scheduled Orders Name Type Priority Associated Diagnoses [...] this encounter Medical Devices Implanted Type Area Refueling Rampman Device Identifier Shelf Expiration Date Model / Serial / Lot Power Port 8fr Sngl Lumen Plas - [id number] Implanted:Qty : 1 on 01/05/2023 by Jai Malcolm Jr., MD at [facility] Right: Chest CR BARD : PERIPHERAL VASCULAR [id number] 07/08/2024 [id number] / / [id number] documented as of this encounter Visit Diagnoses [...] Power of Attor johann? No Care Teams Aviation Neuropsychologist Relationship Specialty Start Date End Date Lina Can MD [address] [place] [address] [place] [phone] PCP - General Family Medicine 08/06/22 documented as of this encounter
--- OUTSIDE RECORDS SUMMARY | 2024-05-09 12:16 | External Medical Summary | Summary of Care ---
Author Name Unknown Organization [facility] Address [address] [place] [address] Phone [phone] Care Team Providers Care Education Trainer Name Role Phone Lina Can MD Primary Care Prov ider Reason for Visit * Reason Onset Date Comments Information 04/16/2024 Encounter Details Date Type Department Care Team (Late st Contact Info) Description 04/16/2024 Telephone Hematology/Oncology Treatment, [place] [address] [place] [address] Chandni Almonte MD [address] [place] [address] Information Allergies Active Allergy Reactions Criticality Noted [...] 3pm (staff message sent with who to up health system) - nurse education visit at 3:30pm Patient already aware. Thanks! documented in this encounter Plan of Treatment Upcoming Encounters Date Type Department Care Team (Late st Contact Info) Description 04/18/2024 2:30 PM EST Nurse Only Hematology/Oncology Treatment, [address] [place] [address] Nasreen, Chair 9 Hem On[address] [place] [address] 04/18/2024 3:00 PM EST Office Visit Hematology/Oncology [facility] Nasreen [address] [place] [address] Heriberto Wiley MD 200 [facility] [place] [address] 04/18/2024 3:30 PM EST Pt Ed by Nurse Hematology/Oncology [facility] [address] [place] [phone] Nasreen Nurse Hem Onc [address] [place] [address] 04/19/2024 1:00 PM EST Pharmacy Pharmacy Hematology Oncology [facility] [address] [place] [address] [facility] Hem/Onc [address] [place] [address] 04/22/2024 12:10 PM EST Laboratory Laboratory [facility] Nasreen [place] [address] [place] [phone] Nasreen, Lab [address] [facility] [facility] [address] 04/22/2024 1:15 PM EST Hem/Onc Treatment Hematology/Oncology Treatment [place] [address] [place] [phone] Nasreen, Chair 4 Hem Onc [address] [place], [place] [address] 05/14/2024 9:00 AM EST Office Visit Hematology/Oncology [facility] Nsareen [place] [address] [place] [phone] Chandni Almonte MD [address] [place] [address] 07/19/2024 11:30 AM EDT Office Visit Cardiology, [facility] [address] [place] [address] Ciro Saini, [address] [place] [address] 02/03/2025 1:00 PM EDT Office Visit Gynecology/Obstetrics [facility] [address] [place] [address] Nelli Farrell CRNP [address] [place] [address] Scheduled Procedures Name Priority Associated Diagnoses Date/Ti [...] this encounter Medical Devices Implanted Type Area Video Game Engineer Device Identifier Shelf Expiration Date Model / Serial / Lot Power Port 8fr Sngl Lumen Plas - [id number] Implanted:Qty : 1 on 01/05/2023 by Jai Malcolm Jr., MD at OR [facility] Right: Chest CR BARD : PERIPHERAL VASCULAR [id number] 07/08/2024 [id number] / / [id number] documented as of this encounter Advance Directives [...] Power of Attor johann? No Care Teams Education Trainer Relationship Specialty Start Date End Date Lina Can MD [address] [place] [address] [place] [phone] PCP - General Family Medicine 08/06/22 documented as of this encounter
--- OUTSIDE RECORDS SUMMARY | 2024-05-09 12:16 | External Medical Summary | Summary of Care ---
Author Name Unknown Organization [facility] Address [address] [place] [address] Phone [phone] Care Team Providers Care Counter Helper Name Role Phone Lina Can MD Primary Care Prov ider Reason for Visit * Reason Onset Date Comments Precert Future 04/02/2024 Lumakras/Vectibi x Encounter Details Date Type Department Care Team (Late st Contact Info) Description 04/02/2024 Telephone Hematology/Oncology [facility] [address] [place] [address] Chandni Almonte MD [address] [place] [address] Precert Future (Lumakras/Vectibix) Allergies Active Allergy Reactions [...] 3 mL/hr over 46 hours intravenously continuous. 787[address] mg 4 3:37 PM EST 03/14/20 24 [...] Entry Date Author No 11/25/2022 5:16 PM EDNikita Mccormack RN documented in this encounter Miscellaneous Notes * Telephone Encounter - Jacinto Delaney RN [...] Description 04/15/2024 9:30 AM EST Laboratory Laboratory, [facility] [address] [place] [phone] [facility] al[facility] [place] [address] 04/16/2024 9:45 AM EST Pharmacy Pharmacy Hematology Oncology [facility] [address] [place] [address] [facility] [place] Hem[facility]Onc [address] [place] [address] 05/14/2024 9:00 AM EST Office Visit Hematology/Oncology [facility] 200 [facility] [place] [place] [phone] Chandni Almonte MD 200 [facility] [place] [address] 07/19/2024 11:30 AM EDT Office Visit Cardiology, [facility] [address] [place] [address] Ciro Saini DO [facility] [place] [address] 02/03/2025 1:00 PM EDT Office Visit Gynecology/Obstetrics [facility] [address] [place] [address] Nelli Farrell CRNP 132 [facility] [place] [address] Scheduled Orders Name Type Priority Associated Diagnoses [...] this encounter Medical Devices Implanted Type Area Event Marketing Coordinator Device Identifier Shelf Expiration Date Model / Serial / Lot Power Port 8fr Sngl Lumen Plas - [id number] Implanted:Qty : 1 on 01/05/2023 by Jai Malcolm Jr., MD at OR [facility] Right: Chest CR BARD : PERIPHERAL VASCULAR [id number] 07/08/2024 [id number] / / [id number] documented as of this encounter Visit Diagnoses [...] Power of Attor johann? No Care Teams Counter Helper Relationship Specialty Start Date End Date Lina Can MD [address] [place] [address] [place] [address] PCP - General Family Medicine 08/06/22 documented as of this encounter
--- OUTSIDE RECORDS SUMMARY | 2024-05-09 12:16 | External Medical Summary | Summary of Care ---
Author Name Unknown Organization [facility] Address [address] [place] [address] Phone [phone] Care Team Providers Care Packing Checker Name Role Phone Lina Can MD Primary Care Prov ider Reason for Visit * Reason Comments Medication Management * Evaluate & Treat - Unlimited Visits (Within 10 days (routine)) - Authorized Specialty Diagnoses / Procedures Referred By Contac t Referred To Contact Pharmacist / Pharmacy Diagnoses Malignant neoplasm of sigmoid colon (HCC) Sally Nino, [facility] [address] [place] [address] Phone: tel: fax: Referral ID Status Reason Start Date Expiration Date Visits Requested Visits Authorized [id number] Authorized Specialty Services Required 4 99 [phone] Encounter Details Date Type Department Care Team (Late st Contact Info) Description 04/09/2024 1:30 PM EST Pharmacy Pharmacy Hematology Oncology [facility] [address] [place] [address] [facility] [place] Hem/Onc [address] [place] [address] Malignant neoplasm of sigmoid colon (HCC)* Allergies [...] in this encounter Progress Notes * Sally Nino RPh - 04/09/2024 3:23 PM EST Sotorasib RX sent to [facility] to follow up 04/16 for medication education Sally Nino, EliseD, OP Clinical Pharmacist, [facility] Oral Chemotherapy [facility] 04/09/2024, 3:23 PM Time Spent on Encounter: 6 - 10 minutes Encounter Group: Oncology Encounter Interventions Item Category: Oral Chemotherapy Sotorasib Problem/Rationale: [place] Plan Review: Clinical Review Pharmacist Intervention(s): Medication prescribed Magnitude of Intervention: Modification of medication for asymtomatic patients (Level 2) * Vera Ann CPhT - 04/09/2024 1:14 PM EST MEDICATION THERAPY MANAGEMENT SOTORASIB INITIAL INTAKE NOTE Nyasia Hdez [phone] Patient Phone Numbers Communication: Chart review Treatment: Medication: Sotorasib (Lumakras) Indication/Staging/Diagnosis Code: colon cancer, KRAS G12 mutation / C18.7 Dose: 960mg daily Administration: +/- food Start Date: TBD Primary Ophthalmic Pathologist/Oncologist: Dr. Almonte Additional Therapy: Panitumumab Supportive Care Meds: Ondansetron Prochlorperazine Prophylactic Meds: none Relevant Chronic Medications: Category Medications Pertinent Notes Antihypertensives Metoprolol ER 25mg daily Per PCP Anticoagulation Apixaban 5mg BID Per cardiology The Hematology/Oncology Oral Chemotherapy Clinic will assess medication compliance at each patient encounter Assessment and Plan: Yes/no Date Action Taken [place] plan entered? yes 04/04/24 Consent completed? yes 04/02/24 Intro/med rec completed? yes 04/05/24 Precert completed? yes 04/05/24 Test claim completed? yes 04/09/24 GSP - $0 Financial assistance needed? Physician signature? yes 04/04/24 Rx released? Education completed? [facility] will contact patient once med shipped/received to complete medication education Please refer to initial intake note for detailed review of regimen and patient- specific education points Vera Ann Social Welfare Research Worker III Hematology Oncology Oral Chemotherapy Clinic Medication Therapy Disease Management [facility] 04/09/2024 1:15 PM Time Spent on Encounter: 6 - 10 minutes documented in this encounter Plan of Treatment Upcoming Encounters Date Type Department Care Team (Late st Contact Info) Description 04/15/2024 9:30 AM EST Laboratory Laboratory, [place] [address] [place] [address] Terrance Long [address] [place] [address] 04/16/2024 9:45 AM EST Pharmacy Pharmacy Hematology Oncology [address] [address] [facility] [place], [facility] Hem/Onc [facility] [place] [address] 05/14/2024 9:00 AM EST Office Visit Hematology/Oncology Jean Dow[place] [address] [place] [phone] Chandni Almonte MD [address] [place] [address] [address] 07/19/2024 11:30 AM EDT Office Visit Cardiology, Jim Long, [place] [address] [place] [address] Ciro Saini DO [address] [place] [address] 02/03/2025 1:00 PM EDT [facility] [address] [place] [address] Jhoner, SANDRA Murillo [address] [place] [address] Scheduled Procedures Name Priority Associated Diagnoses Date/Ti [...] this encounter Medical Devices Implanted Type Area Marketing Administrative Assistant Device Identifier Shelf Expiration Date Model / Serial / Lot Power Port 8fr Sngl Lumen Plas - [id number] Implanted:Qty : 1 on 01/05/2023 by Jai Malcolm Jr., MD at [facility] Right: Chest CR BARD : PERIPHERAL VASCULAR [id number] 07/08/2024 [id number] / / [id number] documented as of this encounter Visit Diagnoses [...] Power of Attor johann? No Care Teams Packing Checker Relationship Specialty Start Date End Date Lina Can MD [address] [place] [address] [place] [address] PCP - General Family Medicine 08/06/22 documented as of this encounter
--- OUTSIDE RECORDS SUMMARY | 2024-05-09 12:16 | External Medical Summary | Summary of Care ---
Author Name Unknown Organization [facility] Address [address] [place] [address] Phone [phone] Care Team Providers Care Dress Designer Name Role Phone Lina Can MD Primary Care Prov ider Reason for Visit * Reason Onset Date Comments Precert Future 04/02/2024 Lumakras/Vectibi x Encounter Details Date Type Department Care Team (Late st Contact Info) Description 04/02/2024 Refill Hematology/Oncology [facility] [address] [place] [address] Chandni Almonte MD [address] [place] [address] Malignant neoplasm of sigmoid colon (HCC)*; Metastasis [...] 3 mL/hr over 46 hours intravenously continuous. 19887 mg 4 3:37 PM EST 03/14/20 24 [...] pain. She requests a refill for this- [facility]. Since starting percocet more often has needed [...] EST Orders received, plan built and routed. [facility]- FY regarding order for Lumakras Awaiting referral for [...] 9:45 AM EST Pharmacy Pharmacy Hematology Oncology [address] [address] [facility] Hem/Onc [facility] [place] [address] 04/16/2024 10:00 AM EST Laboratory Laboratory, [facility] 132 [place] [phone] [facility] 132 [place] [address] 04/22/2024 12:10 PM EST Laboratory Laboratory [facility] [place] [address] [place] [phone] Nasreen, Lab [facility] 200 [facility] [place] [address] 04/22/2024 1:15 PM EST Hem/Onc Treatment Hematology/Oncology Treatment, [place] [address] [place] [address] Nasreen, Chair 4 Hem Onc [facility] [address] [place] [address] 05/14/2024 9:00 AM EST Office Visit Hematology/Oncology [facility] Nasreen [place] [address] [place] [address] Chandni Almonte MD [address] [place] [facility] [place] [address] 07/19/2024 11:30 AM EDT Office Visit Cardiology, [facility] [address] [place] [address] Ciro Saini DO [address] [place] [address] 02/03/2025 1:00 PM EDT Office Visit Gynecology/Obstetrics [facility] [address] [facility] [place] [address] Nelli Farrell CRNP [address] [place] [address] Scheduled Orders Name Type Priority Associated Diagnoses [...] this encounter Medical Devices Implanted Type Area Dot Compliance Specialist Device Identifier Shelf Expiration Date Model / Serial / Lot Power Port 8fr Sngl Lumen Plas - [id number] Implanted:Qty : 1 on 01/05/2023 by Jai Malcolm Jr., MD at [facility] Right: Chest CR BARD : PERIPHERAL VASCULAR [id number] 07/08/2024 [id number] / / [id number] documented as of this encounter Visit Diagnoses [...] Power of Attor johann? No Care Teams Dress Designer Relationship Specialty Start Date End Date Lina Can MD [address] [place] [address] [place] [phone] PCP - General Family Medicine 08/06/22 documented as of this encounter
--- OUTSIDE RECORDS SUMMARY | 2024-05-09 12:17 | External Medical Summary | Summary of Care ---
Author Name Unknown Organization [facility] Address [address] [place] [address] Phone [phone] Care Team Providers Care Biologist Aide Name Role Phone Lina Can MD Primary Care Prov ider Reason for Visit * Reason Comments Education Vectibix/Lumakras Encounter Details Date Type Department Care Team (Late st Contact Info) Description 04/02/2024 3:00 PM EST Pt Ed by Nurse Hematology/Oncology [facility] Nasreen [place] [address] [place] [address] Nurse Nasreen Hem Onc [facility] [address] [place] [address] Allergies Active Allergy Reactions Criticality Noted Date Comments Amoxicillin-Pot Clavulanate Nausea/vomiting 07/12/2022 GI upset Doxycycline Nausea/vomiting 07/12/2022 GI upset Oxaliplatin Flushing High 07/27/2023 Shortness of breath Metoclopramide Hives 08/10/2022 documented as of this encounter (statuses as of 04/04/2024) Medications Acetaminophen 500 MG Oral Tablet (Tylenol Extra Strength) Take 1 Tablet by mouth every 6 hours as needed for Fever (Temp Greater than ) or Pain, Moderate. Active Ondansetron HCl 8 MG Oral Tablet (Zofran)Indicatio ns:Malignant neoplasm of sigmoid colon (HCC) Take 1 Tablet by mouth every 8 hours as needed for Nausea. 30 Tablet 1 4 Active Prochlorperazine Maleate 10 MG Oral Tablet (Compazine)Indica tions:Malignant neoplasm of sigmoid colon (HCC) Take 1 Tablet by mouth every 6 hours as needed for Nausea. 30 Tablet 1 4 Active traMADol HCl 50 MG Oral Tablet (Ultram)Indicatio ns:Malignant neoplasm of sigmoid colon (HCC) Take 1 Tablet by mouth every 6 hours as needed for Pain, Moderate. 30 Tablet 4 Active Metoprolol Succinate ER 25 MG Oral Tablet Extended Release 24 Hour (toPROL XL)Indications:Ne w onset atrial fibrillation (HCC) Take 1 Tablet by mouth in the morning. 90 Tablet 1 4 Active Eliquis 5 MG Oral Tablet Take 1 Tablet by mouth in the morning and 1 Tablet before bedtime. 60 Tablet 11 4 Active Potassium Chloride ER 10 MEQ Oral Tablet Extended ReleaseIndication s:Malignant neoplasm of sigmoid colon (HCC) Take 1 Tablet by mouth in the morning. 30 Tablet 1 4 Active documented as of this encounter (statuses as of 04/04/2024) Active Problems Problem Noted Date Diagnosed Date [...] as of this encounter (statuses as of 04/04/2024) Immunizations No known immunizationsdocumented as of this [...] documented in this encounter Progress Notes * Jacinto Delaney RN - 04/04/2024 9:08 AM EST Late entry: Education completed 04/02. documented in this encounter Plan of Treatment Upcoming Encounters Date Type Department Care Team (Late st Contact Info) Description 04/04/2024 1:00 PM EST Pharmacy Pharmacy Hematology Oncology [address] [address] [facility] Hem/Onc [address] [place] [address] Malignant neoplasm of sigmoid colon (HCC)* 04/05/2024 1:15 PM EST Pharmacy Pharmacy Hematology Oncology [address] [address] [facility] Hem/Onc [address] [place] [address] 04/09/2024 1:30 PM EST Pharmacy Pharmacy Hematology Oncology [address] [address] [facility] Hem/Onc [address] [place] [address] 04/11/2024 2:00 PM EST Office Visit Urology Ashlie Louise [address] [place] [address] [place] [address] Manas Marie MD 27 [place] [address] 04/15/2024 9:30 AM EST Laboratory Laboratory, [facility] 132 [facility] [address] [place] [phone] Terrance Long [address] [place] [address] 05/14/2024 9:00 AM EST Office Visit Hematology/Oncology [facility] [place] 200 [place] [phone] Chandni Almonte MD [address] [place] [address] 07/19/2024 11:30 AM EDT Office Visit Cardiology, [facility] [address] [facility] [place] [address] Ciro Saini DO [address] [place] [address] 02/03/2025 1:00 PM EDT Office Visit Gynecology/Obstetric s [facility] [address] [facility] [place] [address] Nelli Farrell CRNP [address] [place] [address] Scheduled Procedures Name Priority Associated Diagnoses Date/Ti me PRE / POST CARE Malignant neoplasm of sigmoid colon (HCC) 11/03/2023 9:00 AM EDT Health Maintenance Due Date Last Done Comments Hepatitis C Screening 1973 DTap/Tdap Vaccines (1 - Tdap) 1974 Pneumococcal Vaccine: 65+ Years (1 of 2 - PCV) 1974 [...] this encounter Medical Devices Implanted Type Area Strategic Consultant Device Identifier Shelf Expiration Date Model / Serial / Lot Power Port 8fr Sngl Lumen Plas - [id number] Implanted:Qty : 1 on 01/05/2023 by Jai Malcolm Jr., MD at [facility] Right: Chest CR BARD : PERIPHERAL VASCULAR [id number] 07/08/2024 [id number] / / [id number] documented as of this encounter Advance Directives [...] Power of Attor johann? No Care Teams Biologist Aide Relationship Specialty Start Date End Date Lina Can MD [address] [place] [address] [place] [phone] PCP - General Family Medicine 08/06/22 documented as of this encounter
--- OUTSIDE RECORDS SUMMARY | 2024-05-09 12:17 | External Medical Summary | Summary of Care ---
Author Name Unknown Organization [facility] Address [address] [place] [address] Phone [phone] Care Team Providers Care Cooper Helper Name Role Phone Lina Can MD Primary Care Prov ider Reason for Visit * Reason Onset Date Comments Precert Future 04/02/2024 Lumakras/Vectibi x Encounter Details Date Type Department Care Team (Late st Contact Info) Description 04/02/2024 Telephone Hematology/Oncology [facility] [address] [place] [address] Chandni Almonte MD [address] [place] [address] Precert Future (Lumakras/Vectibix) Allergies Active Allergy Reactions Criticality Noted Date Comments Amoxicillin-Pot Clavulanate Nausea/vomiting 07/12/2022 GI upset Doxycycline Nausea/vomiting 07/12/2022 GI upset Oxaliplatin Flushing High 07/27/2023 Shortness of breath Metoclopramide Hives 08/10/2022 documented as of this encounter (statuses as of 04/02/2024) Medications Acetaminophen 500 MG Oral Tablet (Tylenol [...] Nausea. 30 Tablet 1 12/18/19 24 Active Pegfilgrastim-cb qv 6 MG/0.6ML Subcutaneous Solution Prefilled Syringe (Udenyca)Indicat ions:Malignant neoplasm of sigmoid colon (HCC),Metastasis to bone (HCC),Chemothera py-induced neutropenia (HCC) Inject 6 mg (1 syringe) under the skin 24 hours after FOLFOX pump disconnect every 2 weeks. 1.2 mL 01/18/2024 12:25 PM EDT 01/08/20 24 Active traMADol HCl 50 MG Oral [...] morning. 90 Tablet 1 02/19/20 24 Active Neulasta 6 MG/0.6ML Subcutaneous Solution Prefilled Syringe (Pegfilgrastim)I ndications:Juan R nant neoplasm of sigmoid colon (HCC),Prevention of chemotherapy-ind uced neutropenia Administer 6 mg subq 24 hours after chemo pump disconnect. 1.2 mL 02/27/2024 11:31 AM EST 02/22/20 24 Active Nyvepria 6 MG/0.6ML Subcutaneous Solution Prefilled Syringe (Pegfilgrastim-a pgf)Indications: Malignant neoplasm of sigmoid colon (HCC),Prevention of chemotherapy-ind uced neutropenia Administer 6mg subq 24 hours after chemo pump disconnect 1.2 mL 04/01/2024 1:10 PM EST 02/23/20 24 Active Eliquis 5 MG Oral Tablet Take 1 Tablet by mouth in the morning and 1 Tablet before bedtime. 60 Tablet 11 11/18/20 24 Active Potassium Chloride ER 10 MEQ Oral Tablet Extended ReleaseIndicatio ns:Malignant neoplasm of sigmoid colon (HCC) Take 1 Tablet by mouth in the morning. 30 Tablet 1 03/11/20 24 Active Fluorouracil (5-Fu) 4,000 mg in NSS 138 mL infusionIndicati ons:Malignant neoplasm of sigmoid colon (HCC) Administer 4,000 mg at 3 mL/hr over 46 hours intravenously continuous. 93326 mg 03/19/2024 3:37 PM EST 03/14/20 24 025 Active documented as of this encounter (statuses as of 04/02/2024) Active Problems Problem Noted Date Diagnosed Date [...] as of this encounter (statuses as of 04/02/2024) Immunizations No known immunizationsdocumented as of this [...] Team (Late st Contact Info) Description 04/02/2024 2:30 PM EST Office Visit Hematology/Oncology Jean Downey [place] [address] [place], [place] [phone] Chandni Almonte MD [address] [place] [address] 04/02/2024 3:00 PM EST Pt Ed by Nurse Hematology/Oncology Jean Downey [place] [address] [place] [address] Nurse Nasreen Hem Onc [facility] [address] [place] [address] 04/04/2024 1:00 PM EST Pharmacy Pharmacy Hematology Oncology [address] [address] [facility] [place] Hem/Onc Formerly named [facility] [place] [address] 04/11/2024 2:00 PM EST Office Visit UrologAshlie Dixon [address] [place] [address] Manas Marie MD 27 [place] [address] 04/15/2024 9:30 AM EST Laboratory Laboratory, [facility] 132 [facility] [place] [phone] [facility] 132 [facility] [place] [address] 04/16/2024 9:00 AM EST Office Visit Hematology/Oncology Jean Downey [place] [address] [place] [address] Alisia Birmingham CRNP 400 [facility] [place] [address] 04/16/2024 9:30 AM EST Hem/Onc Treatment Hematology/Oncology Treatment, [place] [address] [place] [address] Nasreen, Chair 11 Hem Onc [facility] 200 [place] [address] 05/14/2024 9:00 AM EST Office Visit Hematology/Oncology [facility] [place] [address] [place] [address] Chandni Almonte MD [address] [place] [address] 07/19/2024 11:30 AM EDT Office Visit Cardiology, [facility] [address] [place] [address] Ciro Saini DO [address] [place] [address] 02/03/2025 1:00 PM EDT Office Visit Gynecology/Obstetrics [facility] [address] [place] [address] Nelli Farrell CRNP [address] [place] [address] Scheduled Orders Name Type Priority Associated Diagnoses [...] this encounter Medical Devices Implanted Type Area Mobile Architect Device Identifier Shelf Expiration Date Model / Serial / Lot Power Port 8fr Sngl Lumen Plas - [id number] Implanted:Qty : 1 on 01/05/2023 by Jai Malcolm Jr., MD at [facility] Right: Chest CR BARD : PERIPHERAL VASCULAR [id number] 07/08/2024 [id number] / / [id number] documented as of this encounter Visit Diagnoses [...] Power of Attor johann? No Care Teams Cooper Helper Relationship Specialty Start Date End Date Lina Can MD [address] [place] [address] [place] [phone] PCP - General Family Medicine 08/06/22 documented as of this encounter
--- OUTSIDE RECORDS SUMMARY | 2024-05-09 12:17 | External Medical Summary | Summary of Care ---
Author Name Unknown Organization [facility] Address [address] [place] [address] Phone [phone] Care Team Providers Care Clinic Physician Director Name Role Phone Lina Can MD Primary Care Prov ider Reason for Visit * Reason Onset Date Comments Precert Future 04/02/2024 Lumakras/Vectibi x Encounter Details Date Type Department Care Team (Late st Contact Info) Description 04/02/2024 Telephone Hematology/Oncology [facility] [address] [place] [address] Chandni Almonte MD [address] [place] [address] Precert Future (Lumakras/Vectibix) Allergies Active Allergy Reactions [...] 3 mL/hr over 46 hours intravenously continuous. [address] mg 03/19/2024 3:37 PM EST 03/14/20 24 [...] PM EST Pharmacy Pharmacy Hematology Oncology [facility] [address] [place] [address] [facility] Hem/Onc [address] [place] [address] 04/11/2024 2:00 PM EST Office Visit Urology Ashlie Louise [address] [place] [address] Manas Marie MD 27 [place] [address] 04/15/2024 9:30 AM EST Laboratory Laboratory, [facility] [address] [place] [phone] [facility] [place] [address] 05/14/2024 9:00 AM EST Office Visit Hematology/Oncology [facility] 200 [place] [address] Chandni Almonte MD 200 [place] [address] 07/19/2024 11:30 AM EDT Office Visit Cardiology, [facility] [address] [place] [address] Ciro Saini DO [address] [place] [address] 02/03/2025 1:00 PM EDT Office Visit Gynecology/Obstetrics [facility] [address] [place] [address] Nelli Farrell CRNP [address] [place] [address] Scheduled Orders Name Type Priority Associated Diagnoses [...] this encounter Medical Devices Implanted Type Area School Attendance Secretary Device Identifier Shelf Expiration Date Model / Serial / Lot Power Port 8fr Sngl Lumen Plas - [id number] Implanted:Qty : 1 on 01/05/2023 by Jai Malcolm Jr., MD at [facility] Right: Chest CR BARD : PERIPHERAL VASCULAR [id number] 07/08/2024 [id number] / / [id number] documented as of this encounter Visit Diagnoses [...] Power of Attor johann? No Care Teams Clinic Physician Director Relationship Specialty Start Date End Date Lina Can MD [address] [place] [address] [place] [phone] PCP - General Family Medicine 08/06/22 documented as of this encounter
--- OUTSIDE RECORDS SUMMARY | 2024-05-09 12:17 | External Medical Summary | Summary of Care ---
Author Name Unknown Organization [facility] Address [address] [place] [address] Phone [phone] Care Team Providers Care Pit Laborer Name Role Phone Lina Can MD Primary Care Prov ider Encounter Details Date Type Department Care Team (Late st Contact Info) Description 04/04/2024 Orders Only Hematology/Oncology [facility] [place] 200 [facility] [place] [phone] Chandni Almonte MD 200 [facility] [place] [address] Allergies Active Allergy Reactions Criticality Noted Date [...] 1:00 PM EST Pharmacy Pharmacy Hematology Oncology [address] [address] [facility], [facility] Hem/Onc [address] [place] [address] Malignant neoplasm of sigmoid colon (HCC)* 04/05/2024 1:15 PM EST Pharmacy Pharmacy Hematology Oncology [place] [address] [place] [address] [facility], [facility] Hem/Onc [address] [place] [address] 04/09/2024 1:30 PM EST Pharmacy Pharmacy Hematology Oncology [place] [address] [place] [address] [facility], [facility] Hem/Onc [address] [place] [address] 04/11/2024 2:00 PM EST Office Visit Urology Ashlie Louise [address] [place] [address] Manas Marie MD 27 [place] [address] 04/15/2024 9:30 AM EST Laboratory Laboratory, [facility] [phone] Terrance Long [facility] 132 [place] [address] 05/14/2024 9:00 AM EST Office Visit Hematology/Oncology Jean Downey [place] 200 Jean [place] [address] Chandni Almonte MD 200 Jean J[place]adn [place] [address] 07/19/2024 11:30 AM EDT Office Visit Cardiology, [facility] 132 [facility] [place] [address] Ciro Saini DO [address] [place] [address] 02/03/2025 1:00 PM EDT Office Visit Gynecology/Obstetric s Jim Long [address] [place] [address] [place], SANDRA Murillo [address] [place] [address] Scheduled Procedures Name Priority Associated Diagnoses Date/Ti [...] this encounter Medical Devices Implanted Type Area Kitchen Help Handyman Device Identifier Shelf Expiration Date Model / Serial / Lot Power Port 8fr Sngl Lumen Plas - [id number] Implanted:Qty : 1 on 01/05/2023 by Jai Malcolm Jr., MD at OR [facility] Right: Chest CR BARD : PERIPHERAL VASCULAR [id number] 07/08/2024 [id number] / / [id number] documented as of this encounter Advance Directives [...] Power of Attor johann? No Care Teams Pit Laborer Relationship Specialty Start Date End Date Lina Can MD [address] [place] [address] [place] [phone] PCP - General Family Medicine 08/06/22 documented as of this encounter
--- OUTSIDE RECORDS SUMMARY | 2024-05-09 12:17 | External Medical Summary | Summary of Care ---
Author Name Unknown Organization [facility] Address [address] [place] [address] Phone [phone] Care Team Providers Care Mold Shaker Name Role Phone Lina Can MD Primary Care Prov ider Reason for Visit * Reason Onset Date Comments Precert Future 04/02/2024 Lumakras/Vectibi x Encounter Details Date Type Department Care Team (Late st Contact Info) Description 04/02/2024 Telephone Hematology/Oncology [facility] [address] [place] [address] Chandni Almonte MD [address] [place] [address] Precert Future (Lumakras/Vectibix) Allergies Active Allergy Reactions Criticality Noted Date Comments Amoxicillin-Pot Clavulanate Nausea/vomiting 07/12/2022 GI upset Doxycycline Nausea/vomiting 07/12/2022 GI upset Oxaliplatin Flushing High 07/27/2023 Shortness of breath Metoclopramide Hives 08/10/2022 documented as of this encounter (statuses as of 04/05/2024) Medications Acetaminophen 500 MG Oral Tablet (Tylenol [...] 3 mL/hr over 46 hours intravenously continuous. 55602 mg 4 3:37 PM EST 03/14/20 24 024 Discontin ued(Medic ation List Clean Up) documented as of this encounter (statuses as of 04/05/2024) Active Problems Problem Noted Date Diagnosed Date [...] as of this encounter (statuses as of 04/05/2024) Immunizations No known immunizationsdocumented as of this [...] Author No 11/25/2022 5:16 PM EDT Nikita Ramirze RN * Do you have serious difficulty [...] EST Orders received, plan built and routed. [facility] regarding order for Lumakras Awaiting referral for both medications. Consent needs signed -- Dr. Almonte meeting with patient today. Hep B labs: completed 12/22/22 Pt has script for both Zofran/Compazine. Lab orders placed for every 2 weeks : CBCD,CMP,Mag documented in this encounter Plan of Treatment Upcoming Encounters Date Type Department Care Team (Late st Contact Info) Description 04/05/2024 1:15 PM EST Pharmacy Pharmacy Hematology Oncology [address] [address] [facility] Hem/Onc [address] [place] [address] 04/09/2024 1:30 PM EST Pharmacy Pharmacy Hematology Oncology [address] [address] [facility] Hem/Onc [address] [place] [address] 04/11/2024 2:00 PM EST Office Visit Urology Rhonda ZakAshlie [address] [place] [address] Manas Marie MD [address] [place] [address] 04/15/2024 9:30 AM EST Laboratory Laboratory, [facility] 132 [facility] [place] [phone] [facility] 132 [facility] [place] [address] 05/14/2024 9:00 AM EST Office Visit Hematology/Oncology [facility] Nasreen [place] 200 [facility] [place] [phone] Chandni Almonte MD [address] [place] [address] 07/19/2024 11:30 AM EDT Office Visit Cardiology, [facility] 132 [facility] [place] [address] Ciro Saini DO 132 [facility] [place] [address] 02/03/2025 1:00 PM EDT Office Visit Gynecology/Obstetrics [facility] 132 [facility] [place] [address] Nelli Farrell CRNP 132 [facility] [place] [address] Scheduled Orders Name Type Priority Associated Diagnoses [...] this encounter Medical Devices Implanted Type Area Nitro Worker Device Identifier Shelf Expiration Date Model / Serial / Lot Power Port 8fr Sngl Lumen Plas - [id number] Implanted:Qty : 1 on 01/05/2023 by Jai Malcolm Jr., MD at OR [facility] Right: Chest CR BARD : PERIPHERAL VASCULAR [id number] 07/08/2024 [id number] / / [id number] documented as of this encounter Visit Diagnoses [...] Power of Attor johann? No Care Teams Mold Shaker Relationship Specialty Start Date End Date Lina Can MD [address] [place] [address] [place] [phone] PCP - General Family Medicine 08/06/22 documented as of this encounter
--- OUTSIDE RECORDS SUMMARY | 2024-05-09 12:17 | External Medical Summary | Summary of Care ---
Author Name Unknown Organization [facility] Address [address] [place] [address] Phone [phone] Care Team Providers Care Kraft Digester Operator Name Role Phone Lina Can MD Primary Care Prov ider Encounter Details Date Type Department Care Team (Late st Contact Info) Description 04/04/2024 Orders Only Hematology/Oncology [facility] [place] 200 [facility] [place] [phone] Chandni Almonte MD 200 [facility] [place] [address] Allergies Active Allergy Reactions Criticality Noted Date [...] 1:00 PM EST Pharmacy Pharmacy Hematology Oncology [address] [address] [facility], [facility] Hem/Onc [address] [place] [address] Malignant neoplasm of sigmoid colon (HCC)* 04/05/2024 1:15 PM EST Pharmacy Pharmacy Hematology Oncology [place] [address] [place] [address] [facility], [facility] Hem/Onc [address] [place] [address] 04/09/2024 1:30 PM EST Pharmacy Pharmacy Hematology Oncology [place] [address] [place] [address] [facility], [facility] Hem/Onc [address] [place] [address] 04/11/2024 2:00 PM EST Office Visit Urology Ashlie Louise [address] [place] [address] Manas Marie MD 27 [place] [address] 04/15/2024 9:30 AM EST Laboratory Laboratory, [facility] 132 [facility] [phone] Terrance Long [facility] 132 [place] [address] 05/14/2024 9:00 AM EST Office Visit Hematology/Oncology Jean Downey [place] 200 [address] [place] [address] Chandni Almonte MD 200 [address] [place] [address] 07/19/2024 11:30 AM EDT Office Visit Cardiology, [facility] 132 [facility] [place] [address] Ciro Saini DO [address] [place] [address] 02/03/2025 1:00 PM EDT Office Visit Gynecology/Obstetric s Jim Long [address] [place] [address] Backer, SANDRA Murillo [address] [place] [address] Scheduled Procedures Name Priority Associated Diagnoses Date/Ti [...] this encounter Medical Devices Implanted Type Area Executive Secretary Social Welfare Device Identifier Shelf Expiration Date Model / Serial / Lot Power Port 8fr Sngl Lumen Plas - [id number] Implanted:Qty : 1 on 01/05/2023 by Jai Malcolm Jr., MD at OR [facility] Right: Chest CR BARD : PERIPHERAL VASCULAR [id number] 07/08/2024 [id number] / / [id number] documented as of this encounter Advance Directives [...] Power of Attor johann? No Care Teams Kraft Digester Operator Relationship Specialty Start Date End Date Lina Can MD [address] [place] [address] [place] [address] PCP - General Family Medicine 08/06/22 documented as of this encounter
--- OUTSIDE RECORDS SUMMARY | 2024-05-09 12:17 | External Medical Summary | Summary of Care ---
Author Name Unknown Organization [facility] Address [address] [place] [address] Phone [phone] Care Team Providers Care Forest Manager Name Role Phone Lina Can MD Primary Care Prov ider Reason for Visit * Reason Comments Medication Management Encounter Details Date Type Department Care Team (Late st Contact Info) Description 04/05/2024 1:15 PM [facility] Pharmacy Pharmacy Hematology Oncology [facility] [address] [place] [address] [facility], [facility] Hem/Onc [address] [place], [place] [id number] Malignant neoplasm of sigmoid colon (HCC)* Allergies [...] Additional Information Patient not taking.Reported on 04/05/2024 documented as of this encounter (statuses as [...] this encounter Progress Notes * Margarita Allan, observer gravity prospecting - 04/05/2024 2:41 PM EST NEW REFERRAL TO ORAL CHEMO CLINIC/MEDICATION RECONCILIATION NOTE Nyasia Hdez [id number] Patient Phone Numbers Communication: Spoke to: Patient Treatment: Medication: Sotorasib (Lumakras) Indication/Staging/Diagnosis Code: colon cancer, 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 Almonte Provider has consented patient: Yes Patient was introduced to Oral Chemotherapy Clinic: OCC is a free service for patients receiving oral chemo therapy. We are Pharmacists & Pharmacy Technicians, who are a part of hematology & oncology care across the [facility] system offering telephone based appointments from the comfort of your own home. Pharmacists are available Monday-Monday from 8am - 4:30pm. After 4:30pm, non- urgent messages can be left on the pharmacist voicemail, and urgent calls/questions/concerns should be directed to their oncologist office directly. In case of an emergency, patient is aware to call 911 or travel to nearest emergency department. Communicated to patient: Pharmacists will provide education about your medication, manage oral chemotherapy side effects & review labs. All information will be shared & available to your oncologist. Explained to patient: once they decide on a treatment with their Oncologist, a Pharmacist will review the treatment plan to ensure correct dosing, review labs & medications to prevent any interactions. Medication authorization is submitted to your insurance. Once approved, your Rx will be sent to the Pharmacy determined by your insurance plan. Specialty Pharmacy will contact you to arrange delivery & discuss co-payment and any assistance options, if required. A Pharmacist will contact you to provide medication education, follow up periodically to review lab results & to assess/manage side effects. Patient was reassured the process to obtain medication can take several days-weeks. Patient was informed that hepatitis B screening must be completed prior to initiation of treatment.completed Patient has given verbal consent that staff from the Oral Chemotherapy Clinic can speak to Odin Dutta, Daughter: Dasha Fontanez regarding their treatment Patient has given verbal consent that staff from the Oral Chemotherapy Clinic can leave a voicemailwith treatment-related information: Yes This information can be left on Cell Performed medication reconciliation with patient; pharmacist will be in touch if there are any druginteractions with oral chemo. Patient voiced understanding on all accounts. TJ Kay Tech Insemination Worker Hematology Oncology Oral Chemotherapy Clinic Medication Therapy Disease Management [facility] 04/05/24,2:52 PM Time Spent on Encounter: 16 - 20 minutes Encounter Group: Oncology Encounter Interventions Item Category: Oral Chemotherapy Sotorasib Problem/Rationale: Safety: Needs additional monitoring - Medication Requires monitoring Pharmacist Intervention(s): Medication reconciliation Magnitude of Intervention: Monitoring with no interventions (Level 0) documented in this encounter Plan of Treatment Upcoming Encounters Date Type Department Care Team (Late st Contact Info) Description 04/09/2024 1:30 PM EST Pharmacy Pharmacy Hematology Oncology [facility] [address] [place] [address] [facility], [facility] Hem/Onc [facility] [place] [address] 04/11/2024 2:00 PM EST Office Visit Urology Ashlie Louise [address] [place] [address] Manas Marie MD 27 [place] [address] 04/15/2024 9:30 AM EST Laboratory Laboratory, [facility] 132 [facility] [place] [phone] [facility] 132 [facility] [address] 05/14/2024 9:00 AM EST Office Visit Hematology/Oncology Jena Downey [place] [address] [place] [phone] Chandni Almonte MD [address] [place] [address] 07/19/2024 11:30 AM EDT Office Visit Cardiology, [facility] [address] [place] [address] Ciro Saini DO [address] [place] [address] 02/03/2025 1:00 PM EDT Office Visit Gynecology/Obstetrics [facility] [address] [place] [address] Nelli Farrell CRNP [address] [place] [address] Scheduled Procedures Name Priority Associated Diagnoses Date/Ti [...] this encounter Medical Devices Implanted Type Area Dock Manager Device Identifier Shelf Expiration Date Model / Serial / Lot Power Port 8fr Sngl Lumen Plas - [id number] Implanted:Qty : 1 on 01/05/2023 by Jai Malcolm Jr., MD at [facility] Right: Chest CR BARD : PERIPHERAL VASCULAR [id number] 07/08/2024 [id number] / / [id number] documented as of this encounter Visit Diagnoses [...] Power of Attor johann? No Care Teams Forest Manager Relationship Specialty Start Date End Date Lina Can MD [address] [place] [address] [place] [address] PCP - General Family Medicine 08/06/22 documented as of this encounter
--- OUTSIDE RECORDS SUMMARY | 2024-05-09 12:17 | External Medical Summary | Summary of Care ---
Author Name Unknown Organization [facility] Address [address] [place] [address] Phone [phone] Care Team Providers Care Head Correction Officer Name Role Phone Lina Can MD Primary Care Prov ider Encounter Details Date Type Department Care Team (Late st Contact Info) Description 04/02/2024 Orders Only Hematology/Oncology [facility] [place] [address] [facility] [place] [phone] Chandni Almonte MD [address] [facility] [place] [place] [address] Allergies Active Allergy Reactions Criticality Noted Date [...] disconnect every 2 weeks. 1.2 mL 5 01/18/2024 12:25 PM EDT 01/08/20 24 Active [...] after chemo pump disconnect. 1.2 mL 11 02/27/2024 11:31 AM EST 02/22/20 24 Active Nyvepria 6 MG/0.6ML Subcutaneous Solution Prefilled Syringe (Pegfilgrastim-a pgf)Indications: Malignant neoplasm of sigmoid colon (HCC),Prevention of chemotherapy-ind uced neutropenia Administer 6mg subq 24 hours after chemo pump disconnect 1.2 mL 11 04/01/2024 1:10 PM EST 02/23/20 24 Active Eliquis 5 MG Oral Tablet Take 1 Tablet by mouth in the morning and 1 Tablet before bedtime. 60 Tablet 11 02/26/20 24 Active Potassium Chloride ER 10 MEQ Oral Tablet Extended ReleaseIndicatio ns:Malignant neoplasm of sigmoid colon (HCC) Take 1 Tablet by mouth in the morning. 30 Tablet 1 12/02/20 24 Active Fluorouracil (5-Fu) 4,000 mg in NSS 138 mL infusionIndicati ons:Malignant neoplasm of sigmoid colon (HCC) Administer 4,000 mg at 3 mL/hr over 46 hours intravenously continuous. 20001 mg 03/19/2024 3:37 PM EST 03/14/20 025 Active documented as of this encounter [...] 04/02/2024 2:30 PM EST Office Visit Hematology/Oncology [facility] [address] [place] [address] [phone] Chandni Almonte MD [address] [place] [address] [address] 04/02/2024 3:00 PM EST Pt Ed by Nurse Hematology/Oncology [facility] [address] [place] [address] [phone] Nasreen Nurse Hem Onc Jean [address] [place] [address] [address] 04/04/2024 1:00 PM EST Pharmacy Pharmacy Hematology Oncology [address] [id number] [facility], [facility] Hem/Onc [address] [place] [address] 04/11/2024 2:00 PM EST Office Visit Urology Ashlie Louise [address] [place] [address] Manas Marie MD [address] [place] [address] 04/15/2024 9:30 AM EST Laboratory Laboratory, [facility] 132 [facility] [place] [phone] [facility] 132 [facility] [place] [address] 04/16/2024 9:00 AM EST Office Visit Hematology/Oncology [facility] [place] [address] [place] [phone] Alisia [place] CRNP 400 [facility] [place] [phone] 04/16/2024 9:30 AM EST Hem[facility]Onc [facility] [address] [place], [place] [address] Nasreen, Chair 11 Hem On[address] [facility] [address] [facility] [place] [place] [address] 05/14/2024 9:00 AM EST Office Visit Hematology/Oncology [facility] Nasreen [place] [address] [place] [address] Chandni Almonte MD [address] [place] [address] 07/19/2024 11:30 AM EDT Office Visit Cardiology, [facility] 132 [facility] [place] [address] Ciro Saini DO [address] [place] [address] 02/03/2025 1:00 PM EDT Office Visit Gynecology/Obstetrics Jim Long [address] [place] [address] Nelli Farrell CRNP [address] [place] [address] Scheduled Procedures Name Priority Associated Diagnoses Date/Ti [...] this encounter Medical Devices Implanted Type Area Logistics Planning Manager Device Identifier Shelf Expiration Date Model / Serial / Lot Power Port 8fr Sngl Lumen Plas - [id number] Implanted:Qty : 1 on 01/05/2023 by Jai Malcolm Jr., MD at OR [facility] Right: Chest CR BARD : PERIPHERAL VASCULAR [id number] 07/08/2024 [id number] / / [id number] documented as of this encounter Advance Directives [...] Power of Attor johann? No Care Teams Head Correction Officer Relationship Specialty Start Date End Date Lina Can MD [address] [place] [address] [place] [address] PCP - General Family Medicine 08/06/22 documented as of this encounter
--- OUTSIDE RECORDS SUMMARY | 2024-05-09 12:17 | External Medical Summary | Summary of Care ---
Author Name Unknown Organization [facility] Address [address] [place] [address] Phone [phone] Care Team Providers Care Human Development Professor Name Role Phone Lina Can MD Primary Care Prov ider Reason for Visit * Reason Onset Date Comments Precert Future 04/02/2024 Lumakras/Vectibi x Encounter Details Date Type Department Care Team (Late st Contact Info) Description 04/02/2024 Telephone Hematology/Oncology [facility] [address] [place] [address] Chandni Almonte MD [address] [place] [address] Precert Future (Lumakras/Vectibix) Allergies Active Allergy Reactions [...] 3 mL/hr over 46 hours intravenously continuous. 960[address] mg 4 3:37 PM EST 03/14/20 024 Discontin ued(Medic ation List Clean Up) [...] EST Orders received, plan built and routed. [facility] regarding order for Lumakras Awaiting referral [...] 1:15 PM EST Pharmacy Pharmacy Hematology Oncology [place] [address] [place] [address] [facility], [facility] Hem/Onc [address] [place] [address] 04/09/2024 1:30 PM EST Pharmacy Pharmacy Hematology Oncology [place] [address] [place] [address] [facility], [facility] Hem/Onc [address] [place] [address] 04/11/2024 2:00 PM EST Office Visit Urology Ashlie Louise [address] [place] [address] Manas Marie MD [place] [address] 04/15/2024 9:30 AM EST Laboratory Laboratory, [address] [place] [address] Terrance Long [facility] [address] [facility] [place] [address] 05/14/2024 9:00 AM EST Office Visit [facility]ology[facility] [place] [address] [place] [phone] Chandni Almonte MD 200 [facility] [place] [address] 07/19/2024 11:30 AM EDT Office Visit Cardiology, [facility] [address] [place] [address] Ciro Saini DO [address] [place] [address] 02/03/2025 1:00 PM EDT Office Visit Gynecology/Obstetrics [facility] [address] [place] [address] Nelli Farrell CRNP [address] [place] [address] Scheduled Orders Name Type Priority Associated Diagnoses [...] this encounter Medical Devices Implanted Type Area Ice Handler Device Identifier Shelf Expiration Date Model / Serial / Lot Power Port 8fr Sngl Lumen Plas - [id number] Implanted:Qty : 1 on 01/05/2023 by Jai Malcolm Jr., MD at [facility] Right: Chest CR BARD : PERIPHERAL VASCULAR [id number] 07/08/2024 [id number] / / [id number] documented as of this encounter Visit Diagnoses [...] Power of Attor johann? No Care Teams Human Development Professor Relationship Specialty Start Date End Date Lina Can MD [address] [place] [address] [place] [address] PCP - General Family Medicine 08/06/22 documented as of this encounter
--- OUTSIDE RECORDS SUMMARY | 2024-05-09 12:17 | External Medical Summary | Summary of Care ---
Author Name Unknown Organization [facility] Address [address] [place] [address] Phone [phone] Care Team Providers Care Machine Fancy Stitcher Name Role Phone Lina Can MD Primary Care Prov ider Encounter Details Date Type Department Care Team (Late st Contact Info) Description 04/04/2024 Orders Only Hematology/Oncology [facility] [place] 200 [facility] [place] [phone] Chandni Almonte MD 200 [facility] [place] [address] Allergies Active Allergy Reactions Criticality Noted Date [...] 1:00 PM EST Pharmacy Pharmacy Hematology Oncology [address] [address] [facility] Hem/Onc [address] [place] [address] Malignant neoplasm of sigmoid colon (HCC)* 04/05/2024 1:15 PM EST Pharmacy Pharmacy Hematology Oncology [place] [address] [place] [address] [facility] Hem/Onc [address] [place] [address] 04/09/2024 1:30 PM EST Pharmacy Pharmacy Hematology Oncology [place] [address] [place] [address] [facility] Hem/Onc [address] [place] [address] 04/11/2024 2:00 PM EST Office Visit Urology Ashlie Louise [address] [place] [address] Manas Marie MD 27 [place] [address] 04/15/2024 9:30 AM EST Laboratory Laboratory, [facility] [phone] Terrance Long [facility] [address] [place] [address] 05/14/2024 9:00 AM EST Office Visit Hematology/Oncology Jean Downey [place] [address] [place] [phone] Chandni Almonte MD [address] [place] [address] 07/19/2024 11:30 AM EDT Office Visit Cardiology, [facility] 132 [facility] [place] [address] Ciro Saini DO [address] [place] [address] 02/03/2025 1:00 PM EDT Office Visit Gynecology/Obstetric s Jim Long [address] [place] [address] Backer, SANDRA Murillo [address] [place] [address] Scheduled Procedures Name Priority Associated Diagnoses Date/Ti [...] this encounter Medical Devices Implanted Type Area Company Doctor Device Identifier Shelf Expiration Date Model / Serial / Lot Power Port 8fr Sngl Lumen Plas - [id number] Implanted:Qty : 1 on 01/05/2023 by Jai Malcolm Jr., MD at OR [facility] Right: Chest CR BARD : PERIPHERAL VASCULAR [id number] 07/08/2024 [id number] / / [id number] documented as of this encounter Advance Directives [...] Power of Attor johann? No Care Teams Machine Fancy Stitcher Relationship Specialty Start Date End Date Lina Can MD [address] [place] [address] [place] [address] PCP - General Family Medicine 08/06/22 documented as of this encounter
--- OUTSIDE RECORDS SUMMARY | 2024-05-09 12:17 | External Medical Summary | Summary of Care ---
Author Name Unknown Organization [facility] Address [address] [place] [address] Phone [phone] Care Team Providers Care Director Of Financial Planning Name Role Phone Lina Can MD Primary Care Prov ider Reason for Visit * Reason Onset Date Comments Precert Future 04/02/2024 Lumakras/Vectibi x Encounter Details Date Type Department Care Team (Late st Contact Info) Description 04/02/2024 Telephone Hematology/Oncology [facility] [address] [place] [address] Chandni Almonte MD [address] [place] [address] Precert Future (Lumakras/Vectibix) Allergies Active Allergy Reactions [...] 3 mL/hr over 46 hours intravenously continuous. 378[address] mg 4 3:37 PM EST 03/14/20 024 [...] EST Orders received, plan built and routed. [facility] regarding order for Lumakras Awaiting [...] 1:00 PM EST Pharmacy Pharmacy Hematology Oncology [address] [address] [facility], [facility] Hem/Onc [address] [place] [address] Malignant neoplasm of sigmoid colon (HCC)* 04/05/2024 1:15 PM EST Pharmacy Pharmacy Hematology Oncology [address] [address] [facility], [facility] Hem/Onc [address] [place] [address] 04/09/2024 1:30 PM EST Pharmacy Pharmacy Hematology Oncology [place] [address] [place] [address] [facility], [facility] Hem/Onc [address] [place] [address] 04/11/2024 2:00 PM EST Office Visit Urology Ashlie Louise [address] [place] [address] Manas Marie MD [address] [place] [address] 04/15/2024 9:30 AM EST Laboratory Laboratory, [facility] [place] [phone] [facility] 132 [facility] [address] 05/14/2024 9:00 AM EST Office Visit Hematology[facility]Oncology [facility] [address] [place] [phone] Chandni Almonte MD [address] [place] [address] 07/19/2024 11:30 AM EDT Office Visit Cardiology, [facility] [place] [address] Ciro Saini DO [address] [facility] [place] [address] 02/03/2025 1:00 PM EDT Office Visit Gynecology/Obstetric [facility] 132 [facility] [place] [address] Nelli Farrell CRNP [address] [facility] [place] [address] Scheduled Orders Name Type Priority Associated Diagnoses [...] this encounter Medical Devices Implanted Type Area Public Health Engineer Device Identifier Shelf Expiration Date Model / Serial / Lot Power Port 8fr Sngl Lumen Plas - [id number] Implanted:Qty : 1 on 01/05/2023 by Jai Malcolm Jr., MD at OR [facility] Right: Chest CR BARD : PERIPHERAL VASCULAR [id number] 07/08/2024 [id number] / / [id number] documented as of this encounter Visit Diagnoses Diagnosis Malignant neoplasm of sigmoid colon (HCC)- Primary Malignant neoplasm of sigmoid colon 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 No Care Teams Director Of Financial Planning Relationship Specialty Start Date End Date Lina Can MD [address] [place] [address] [place] [address] PCP - General Family Medicine 08/06/22 documented as of this encounter
--- OUTSIDE RECORDS SUMMARY | 2024-05-09 12:17 | External Medical Summary | Summary of Care ---
Author Name Unknown Organization [facility] Address [address] [place] [address] Phone [phone] Care Team Providers Care Drawing Kiln Supervisor Name Role Phone Lina Can MD Primary Care Prov ider Reason for Visit * Reason Comments Follow Up return Encounter Details Date Type Department Care Team (Late st Contact Info) Description 04/02/2024 2:30 PM EST Office Visit Hematology/Oncology [facility] [place] [address] [facility] [place] [place] [id number] Chandni Almonte MD [address] [place] [address] Malignant neoplasm of sigmoid colon (HCC)*; Metastasis to bone (HCC); Encounter for antineoplastic chemotherapy Allergies Active Allergy Reactions Criticality Noted Date [...] 3 mL/hr over 46 hours intravenously continuous. 53832 mg 03/19/2024 3:37 PM EST 03/14/20 24 [...] Sign Reading Time Taken Comments Blood Pressure 149/78 04/02/2024 2:23 PM EST Pulse 94 04/02/2024 2:23 PM EST Temperature 36.3 C (97.4 F) 04/02/2024 2:23 PM ES T Respiratory Rate - - Oxygen Saturation 98% 04/02/2024 2:23 PM EST Inhaled Oxygen Concentration - - Weight 54.1 kg (119 lb 4.8 oz) 04/02/2024 2:23 P M EST Height - - Body Mass Index 22.54 11/15/2023 10:01 AM EDT documented in this [...] documented in this encounter Progress Notes * Chandni Almonte MD - 04/02/2024 2:52 PM EST Outpatient Consult Note Data Source: Patient, Epic record. Data Source: Patient, Epic record. 04/02/2024 2:52 PM Nyasia Hdez [id number] 69 year old Patient Encounter: HEMATOLOGY/ONCOLOGY [facility] Cancer Diagnosis: - Cancer of sigmoid, status post Robotic-assisted, laparoscopic low anterior resection with coloproctostomy. Patient has stage pT4 pN2 disease. - Now she developed metastatic disease. Current Treatment: On palliative chemotherapy FOLFIRI plus Avastin for metastatic disease. Now she has disease progression on the PET scan Previous Treatment: - Status post radiation therapy to the metastatic sites including right scapula, lumbar spine and left pain femur. Completed radiation therapy on 12/01/2023. - status post Robotic-assisted, laparoscopic low anterior resection with coloproctostomy. - She was treated with the adjuvant chemotherapy and received total of 10 cycles of FOLFOX. She hadallergic reaction so the chemo was changed to FOLFIRI for last 2 cycles. She received last chemo on07/25/2023. Oncologic History : 69-year-old female with history of breast cancer was diagnosed about 28 years ago and was treated with the chemotherapy including combination of AC followed by Taxol on protocol. She recently presented with complaint of abdominal pain and discomfort feeling. She would a CT scan of the abdomen pelvis done on 08/26/2022 which showed irregular enhancing masslike thickening within the sigmoid colon, highly suspicious for a neoplastic process, perisigmoid soft tissue nodules visualized, which are either lymph node or tumoral deposits. The largest measures 1.2 x 0.9 cm, borderline prominent iliac chain lymph nodes are visualized and iregular enhancement within the sigmoid colon cannot be delineate d from the lower uterine segment. PET scan was done on 10/04/2022 which showed 7 cm high metabolic intensity (SUV 21) circumferentialmass involving the mid-sigmoid colon with possible 1.6 cm extramural extension versus perisigmoid lymph node, characteristic of colon cancer, metabolically-active perisigmoid and left common iliac lymph node metastases. Colonoscopy was done on 10/21/2022 which showed obstructing circumferential tumor in the sigmoid colon. Biopsy from the mass showed rare detached strips of the dysplastic epithelium and fragment of colonic mucosa with hyperplastic and reactive changes. Final Diagnosis A. Colon, Sigmoid, mass, biopsy: Rare detached strips of dysplastic epithelium Fragments of colonic mucosa with hyperplastic and reactive change See note Note: Clinical suspicion for malignancy is noted. However, there are only rare detached strips of dysplastic epithelium identified. Rest of specimen reveals colonic mucosa with hyperplastic and reactive change. There is no definitive evidence of carcinoma in the tissue examined. On 11/25/2022 patient underwent Robotic-assisted, laparoscopic low anterior resection with coloproctostomy. Intraoperatively, she was noted to have invasion of the mass into her uterus. Substance Addiction Coordinator onc was consulted intraoperatively and a ALEXA w BSO was done. While placing stents for the procedure, urology also noted a bladder mass and a TURBT was recommended. Pathology is consistent with poorly differentiated colon adenocarcinoma involving cervix, uterine serosa and myometrium with remarkable lymphovascular invasion, in the sigmoid colon there was moderate to poorly differentiated adenocarcinoma arising from tubular adenoma with high-grade dysplasia in the presence of focal necrosis, carcinoma invades through the muscularis propria. All margins of resection are negative for carcinoma and dysplasia. Lymphovascular invasion present and 5 of 15 lymph nodes were positive for metastatic disease. Patient has stage pT4b pN2a stage IIIC. During the procedure she was found to have a tumor in the bladder and underwent TURBT and pathology was consistent with low-grade papillary urothelial carcinoma noninvasive. KRAS is positive Final Diagnosis A. Uterus, cervix, bilateral fallopian tubes, bilateral ovaries, hysterectomy with salpingo-oophorectomy: - Poorly differentiated colonic adenocarcinoma involves cervix, uterine serosa and myometrium with remarkable lymphovascular invasion. - Unremarkable fallopian tubes and ovaries. B. Colon, anastomotic rings/resection margin, excision: - Benign colonic tissue with no significant pathologic changes. C. Colon, sigmoid colon and proximal rectum, robotic-assisted, laparoscopic low anterior resection with coloproctostomy: - Moderately to poorly differentiated adenocarcinoma arising from tubular adenoma with high-grade dysplasia. Focal necrosis present. - Carcinoma invades through muscularis propria to inked serosa surface with adhesions (see comment). - All margins negative for carcinoma and dysplasia. - Positive for lymphovascular invasion. - Five out of fifteen lymph nodes positive for carcinoma (5/15). - Stage: [id number]. D. Urinary bladder, biopsy: - Low-grade papillary urothelial carcinoma, noninvasive. PECIMEN Procedure Low anterior resection Macroscopic Evaluation of Mesorectum Complete TUMOR Tumor Site Sigmoid colon Histologic Type Adenocarcinoma Histologic Grade G3, poorly differentiated Tumor Size Greatest dimension (Centimeters): 4.3 cm Tumor Extent Directly invades or adheres to adjacent structure(s): Uterus serosa, myometrium and uterine cervix Macroscopic Tumor Perforation Cannot be determined Lymphovascular Invasion Small vessel Perineural Invasion Not identified Tumor [place] Score Intermediate (5-9) Type of Polyp in which Invasive Carcinoma Arose Tubular adenoma Treatment Effect No known presurgical therapy MARGINS Margin Status for Invasive Carcinoma All margins negative for invasive carcinoma Closest Margin(s) to Invasive Carcinoma Distal Distance from Invasive Carcinoma to Closest Margin 4.2 cm Margin Status for Non-Invasive Tumor All margins negative for high-grade dysplasia / intramucosal carcinoma and low-grade dysplasia REGIONAL LYMPH NODES Regional Lymph Node Status Tumor present in regional lymph node(s) Number of Lymph Nodes with Tumor 5 Number of Lymph Nodes Examined 15 Tumor Deposits Present Number of Tumor Deposits 3 PATHOLOGIC STAGE CLASSIFICATION (pTNM, AJCC 8th Edition) pT Category pT4b pN Category pN2a Mismatch Repair (MMR) Interpretation No loss of nuclear expression of MMR proteins: No evidence of deficient mismatch repair (low probability of MSI-H) mmunotherapy Markers Tumor Mutational [place] (TMB): TMB Unit [place] 5.67 m/MB Low Microsatellite Instability Status (MSI): MSI Status 0 Stable Result Detail DNA Variants (SNV and indels): Gene Variant Tier Amino Acid Change Nucleotide Change Consequence Allele Frequency Sequencing Depth KRAS G12V Tier 1: Strong significance p.Mrb24Dva [id number]: c.35G>T Missense Variant 28.1 % 1995 CDKN1B M678Mqv*15 Tier 2: Potential significance p.[id number] NM_004064.5: c.326_327insT Frameshift Variant 29.5 % 987 TP53 K132R Tier 2: Potential significance p.[id number] NM_000546.6: c.395A>G Missense Variant 25.4 % 1991 Copy Number Variants (CNV): No pathogenic copy number variants detected in this sample. RNA (translocations/fusions and exon skipping): No pathogenic RNA fusions detected in this sample. Clinically patient is feeling well without any new symptoms complain. Denies any headache, dizziness, blurred vision, chest pain, shortness breath palpitation abdominal pain distention, nausea, vomiting, fever, night sweats. She is smoking half pack per day for about 50 years. Denies drinking. Family history is strongly positive for breast cancer in the mother and 5 aunt were diagnosed of breast cancer. One cousin was diagnosed of ovarian cancer. She had a PET scan done on 10/02/2023 which revealed new FDG avid osseous lesion in the right scapula, L5 vertebral body and left femur consistent with metastatic disease. She had biopsy from the right scapular lesion done and pathology is consistent with adenocarcinoma compatible with a colorectal primary. Final Diagnosis A. Bone, right scapula, CT/US guided core needle biopsy: Adequacy: Satisfactory for evaluation. Category: Malignant. Interpretation: Adenocarcinoma, compatible with colorectal primary. She was treated with the palliative radiation therapy to the right scapular area and spine and femur area because of the pain. She received total of 3000 cGy on each side in 5 fraction. Interval History: Overall clinically she is stable without any new symptoms complain. She received total of 6 cycles of FOLFIRI plus bevacizumab. She had follow-up PET scan done which unfortunately revealed disease progression. LABS/IMAGING: Results for orders placed or performed in visit on 03/18/24 MAGNESIUM Result Value Ref Range Magnesium 2.2 1.5 - 2.6 mg/dL COMPREHENSIVE METABOLIC PANEL Result Value Ref Range BUN 8 6 - 20 mg/dL CREATININE 0.7 0.5 - 1.0 mg/dL EGFR >90 >=60 mL/min SODIUM 135 135 - 146 mmol/L POTASSIUM 4.3 3.5 - 5.1 mmol/L CHLORIDE 98 98 - 107 mmol/L CO2 27 22 - 32 mmol/L ANION GAP 10 7 - 15 mmol/L GLUCOSE 189 (H) 70 - 120 mg/dL Albumin 4.4 3.8 - 5.0 g/dL AST 21 10 - 35 U/L Alkaline Phosphatase 319 (H) 35 - 130 U/L Bilirubin, Total 0.7 <=1.2 mg/dL CALCIUM 9.6 8.4 - 10.2 mg/dL Protein 7.4 6.0 - 8.3 g/dL ALT 10 10 - 35 U/L CBC Result Value Ref Range WBC 11.34 (H) 4.00 - 10.80 K/uL RBC 3.54 3.85 - 5.15 M/uL HGB 12.4 12.0 - 15.3 g/dL HCT 37.4 36.0 - 45.2 % MCV 105.6 81.5 - 97.5 fL MCH 35.0 27.0 - 34.0 pg MCHC 33.2 32.0 - 36.0 g/dL RDW 17.5 11.5 - 15.5 % PLT 121 (L) 140 - 400 K/uL MPV 10.7 6.6 - 11.1 fL DIFFERENTIAL, AUTOMATED Result Value Ref Range WBC 11.34 (H) 4.00 - 10.80 K/uL Neutrophils % 80.0 (H) 40.0 - 75.0 % Lymphocytes % 11.7 (L) 18.0 - 42.0 % Monocytes % 6.8 1.0 - 11.0 % Eosinophils % 1.1 0.0 - 6.0 % Basophils % 0.4 0.0 - 2.0 % Absolute Neutrophils 9.08 (H) 1.80 - 7.70 K/uL Absolute Lymphocytes 1.33 1.00 - 4.80 K/ul Absolute Monocytes 0.77 0.00 - 1.10 K/uL Absolute Eosinophils 0.12 0.00 - 0.70 K/uL Absolute Basophils 0.04 0.00 - 0.20 K/uL URINALYSIS, REFLEX TO MICROSCOPIC Result Value Ref Range Color, Urine Yellow Light Yellow, Yellow, Dark Yellow Clarity, Urine Clear Clear Glucose, Urine Negative Negative mg/dL Bilirubin, Urine Negative Negative Ketone, Urine Negative Negative mg/dL Specific [place], Urine 1.010 1.003 - 1.030 Blood, Urine Trace (A) Negative pH, Urine 5.5 5.0 - 7.5 Units Protein, Urine Negative Negative mg/dL Urobilinogen, Urine 0.2 0.2, 1.0 mg/dL Nitrite, Urine Negative Negative Esterase, Urine Negative Negative MICROSCOPIC EXAM, URINE Result Value Ref Range RBC, Urine 3-5 (A) 0 - 2 /HPF WBC, Urine 0-2 0 - 2 /HPF Bacteria, Urine 0-25 0 - 25 /HPF REVIEW OF SYSTEMS: General: No Fever, chills, night sweats, or weight loss. HEENT: No change in visual acuity, blurred or double vision. No epistaxis, facial pain, nasal discharge or change in hearing. Denies dysphagia, no muscosal ulceration, or sores noted. Cardiovascular: No chest pain, MAYER, or palpitations Respiratory: No shortness of breath, cough, hemoptysis, or pleuritic chest pain Gastrointestinal: No abdominal pain, nausea, vomiting, diarrhea, rectal pain or bleeding Genitourinary: Denies Hematuria or dysuria Musculoskeletal: No bone pain Psychiatric: No vegetative signs of depression Endocrine: No symptoms of hypothyroidism or hyperglycemia Hematologic: No bleeding or lymph nodes noted As mentioned above, all of the systems were reviewed in full and are unremarkable. Past Medical History: Diagnosis Date Breast cancer (HCC) 1991 right mastectomy Cancer, metastatic to bone (HCC) Colon cancer (HCC) New onset atrial fibrillation (HCC) 11/02/2023 Current Outpatient Medications Medication Sig Dispense Refill [...] as needed for Nausea. 30 Tablet 1 Pegfilgrastim-cbqv 6 MG/0.6ML Subcutaneous Solution Prefilled Syringe (Udenyca) Inject 6 mg (1 syringe) under the skin 24 hours after FOLFOX pump disconnect every 2 weeks. 1.2 mL 5 traMADol HCl 50 MG Oral Tablet (Ultram) Take 1 Tablet by mouth every 6 hours as needed for Pain, Moderate. 30 Tablet 0 Metoprolol Succinate ER 25 MG Oral Tablet Extended Release 24 Hour (toPROL XL) Take 1 Tablet by mouth in the morning. 90 Tablet 1 Neulasta 6 MG/0.6ML Subcutaneous Solution Prefilled Syringe (Pegfilgrastim) Administer 6 mg subq 24hours after chemo pump disconnect. 1.2 mL 11 Nyvepria 6 MG/0.6ML Subcutaneous Solution Prefilled Syringe (Pegfilgrastim-apgf) Administer 6mg subq 24 hours after chemo pump disconnect 1.2 mL 11 Eliquis 5 MG Oral Tablet Take 1 Tablet by mouth in the morning and 1 Tablet before bedtime. 60 Tablet 11 Potassium Chloride ER 10 MEQ Oral Tablet Extended Release Take 1 Tablet by mouth in the morning. 30Tablet 1 Fluorouracil (5-Fu) 4,000 mg in NSS 138 mL infusion Administer 4,000 mg at 3 mL/hr over 46 hours intravenously continuous. 29701 mg 0 No current facility-administered medications for this visit. Social History Tobacco Use Smoking status: Every Day Current packs/day: 0.50 Types: Cigarettes Smokeless tobacco: Never Vaping Use Vaping status: Never Used Substance Use Topics Alcohol use: Not Currently Drug use: Never Review of patient's allergies indicates: Allergen Reactions Oxaliplatin Flushing Shortness of breath Augmentin [Amoxicillin-Pot Clavulanate] Nausea/vomiting GI upset Doxycycline Nausea/vomiting GI upset Reglan [Metoclopramide] Hives PHYSICAL EXAMINATION: General Appearance: Healthy appearing patient in no acute distress BP 149/78 (BP Site: Left Arm, BP Position: Sitting, BP Cuff Size: Pediatric) | Pulse 94 | Temp 36.3C (97.4 F) (Tympanic) | Wt 54.1 kg (119 lb 4.8 oz) | SpO2 98% | BMI 22.54 kg/m | BSA 1.53 m Vitals reviewed. HEENT: No oral or pharyngeal masses, ulceration or thrush noted, no sinus tenderness. Neck is supple with no thyromegaly or JVD noted. Lymph Nodes: No lymphadenopathy noted in the occipital, pre and post auricular, cervical, supra andinfraclavicular, axillary, epitrochlear, inguinal, and popliteal region. Lungs/Thorax: Clear to auscultation, no accessory muscles of respiration being used. Heart: Regular rate and rhythm, normal S1, S2 Abdomen: Soft, nontender, bowel sounds present, no appreciable hepatosplenomegaly, no palpable masses Extremeties: Good pulses bilaterally, no peripheral edema. ASSESSMENT: 69-year-old female with history of breast cancer was diagnosed about 28 years ago and was treated with chemotherapy. It was triple negative breast cancer. Now recently she presented with complaint ofabdominal pain and discomfort and had CT scan done which shows mass in the colon. She had colonoscopy done which showed sigmoid mass and biopsy was unremarkable. She underwent robotic low anterior resection with hysterectomy and bilateral salpingo-oophorectomy and removal of tumor from the bladder.Pathology is consistent with moderately to poorly differentiated adenocarcinoma arising from tubular adenoma with high- grade dysplasia and high-grade dysplasia with focal necrosis, there was also poorly differentiated colonic adenocarcinoma involve cervix, uterine serosa and myometrium with remarkable lymphovascular invasion. Mass from the bladder was consistent with low-grade papillary urothelial carcinoma noninvasive. Patient has stage pT4 pN2 stage IIIC disease. Patient had locally advanced colon carcinoma with invasion of the cervix and uterine serosa and myometrium with lymphovascular invasion. She has high-risk disease with the risk of local recurrence/metastasis. Tumor was positive for KRAS G12V mutation. She received total of 10 cycles of FOLFOX. During the last cycle of the chemotherapy she had allergic reaction to the oxaliplatin. The last dose of also of the chemotherapy was changed to FOLFIRI. She received last chemotherapy on 07/25/2023. On last CT scan CT scan there is a question of abscess on the left lateral vaginal cuff and there is a new sclerotic lesion on L5. On MRI she has heterogeneously enhancing lesion corresponding to 07/[address] sclerotic lesion, concerning for neoplasm. Her scans were reviewed by Dr. Ayala and following was his comments: "The small vaginal thing is not a concern. The lymph nodes are to small to characterize. The lytic lesion in the spine could be evaluated with a PET scan". She had a PET scan done on 10/02/2023 which unfortunately revealed new FDG avid metastasis to the right scapula, L5 vertebral body and left femur consistent with metastatic disease. Patient completed chemotherapy and received last dose on 07/25/2023. She has a metastases within very short period of time. Biopsy from the scapular lesion is consistent with metastatic colorectal cancer. Patient received radiation therapy to the scapular reason to the L5 and femoral neck lesion. She was treated with the FOLFIRI plus Avastin combination. She received total of 6 cycles and had follow-up PET scan done which revealed disease progression with increased bone metastasis. Discussed with the patient and daughter about diagnosis and reviewed all the available blood tests and PET scan finding with them. I also personally reviewed the radiology images PET scan. Patient has progressive disease while receiving FOLFIRI plus Avastin. Her tumor was positive for KRAS G12V mutation and she will benefit with combination of Lumakras and Vectibix. Discussed with him about the benefit, risk, side effects and toxicity of the treatment. Role of treatment is palliativeand she has incurable disease. After detailed discussion she agreed to proceed with treatment and signed the consent form. PLAN: As above. She will return clinic for follow-up in 6 weeks The patient voiced understanding of all of the above. All questions and concerns were addressed in an apparently satisfactory manner. Chandni Almonte MD (This note was completed using the dictation program Fluency Direct. As such, there may be misspellings, word substitutions, or other variations that should not change the essence of the clinical content of this encounter note. If there is need for further clarification, please direct questions to me.) documented in this encounter Nursing Notes * Yanelis Orozco CMA - 04/02/2024 2:27 PM EST Patient identifed by name and birthdate Do you have any concerns about pain management for today's visit? No Living Will or Advance Directive for Health Care as noted on the problem list. [email or web address] is a way you can talk to your provider on line through e-mail. Would you like to sign up? I can activate it for you? ALREADY ACTIVE Filed Vitals: 04/02/24 1423 BP: 149/78 Pulse: 94 Temp: 36.3 C (97.4 F) TempSrc: Tympanic SpO2: 98% Weight: 54.1 kg (119 lb 4.8 oz) Patient was instructed to not get [...] 1:00 PM EST Pharmacy Pharmacy Hematology Oncology [facility] [address] [place] [address] [facility] [place]c [address] [place] [address] 04/11/2024 2:00 PM EST Office Visit Urology Ashlie Louise Rhonda Hicks [address] [address] Manas Marie MD [place] [address] 04/15/2024 9:30 AM EST Laboratory Laboratory, [facility] [address] [facility] [place] [phone] Terrance Long [facility] [place] [address] 05/14/2024 9:00 AM EST Office [facility] [address] [place] [phone] Chandni Almonte MD [address] [place] [address] 07/19/2024 11:30 AM EDT Office Visit Cardiology, [facility] [address] [place] [address] Ciro Saini DO [address] [place] [address] 02/03/2025 1:00 PM EDT Office Visit [facility] [place] [address] Nelli Farrell CRNP [address] [facility] [place] [address] Scheduled Procedures Name Priority Associated Diagnoses Date/Ti [...] this encounter Medical Devices Implanted Type Area Senior Sql Server Database Developer Device Identifier Shelf Expiration Date Model / Serial / Lot Power Port 8fr Sngl Lumen Plas - [id number] Implanted:Qty : 1 on 01/05/2023 by Jai Malcolm Jr., MD at OR [facility] Right: Chest CR BARD : PERIPHERAL VASCULAR [id number] 07/08/2024 [id number] / / [id number] documented as of this encounter Visit Diagnoses Diagnosis Malignant neoplasm of sigmoid colon (HCC)- Primary Malignant neoplasm of sigmoid colon Metastasis to bone (HCC) Secondary malignant neoplasm of bone and bone marrow Encounter for antineoplastic chemotherapy documented in this encounter Advance Directives * [...] Power of Attor johann? No Care Teams Drawing Kiln Supervisor Relationship Specialty Start Date End Date Lina Can MD [address] [place] [address] [place] [phone] PCP - General Family Medicine 08/06/22 documented as of this encounter
--- OUTSIDE RECORDS SUMMARY | 2024-05-09 12:17 | External Medical Summary | Summary of Care ---
Author Name Unknown Organization [facility] Address [address] [place] [address] Phone [phone] Care Team Providers Care Commercial Food Instructor Name Role Phone Lina Can MD Primary Care Prov ider Reason for Visit * Reason Comments Medication Management Encounter Details Date Type Department Care Team (Late st Contact Info) Description 04/04/2024 1:00 PM [facility] Pharmacy Pharmacy Hematology Oncology [facility] [address] [place] [address] [facility], [facility] Hem/Onc [address], [place] [id number] Malignant neoplasm of sigmoid colon (HCC)* Allergies [...] 3 mL/hr over 46 hours intravenously continuous. 33883 mg 4 3:37 PM EST 03/14/20 24 [...] this encounter Progress Notes * Sally Nino, [facility] - 04/04/2024 8:45 AM EST MEDICATION THERAPY MANAGEMENT SOTORASIB INITIAL INTAKE NOTE Nyasia Hdez [phone] Patient Phone Numbers Communication: Chart review Treatment: Medication: Sotorasib (Lumakras) Indication/Staging/Diagnosis Code: colon cancer, KRAS G12 mutation / C18.7 Dose: 960mg daily Administration: +/- food Start Date: TBD Primary Data Warehouse Administrator/Oncologist: Dr. Almonte Additional Therapy: Panitumumab Supportive Care [...] indication, hepatic function,renal function, etc): no changes Are appropriate supportive care medications prescribed? Yes Are appropriate prophylactic medications prescribed? No, none needed Have baseline labs/tests been obtained? Yes Has hepatitis B screening been completed? Yes Potential drug-drug drug-herbal, drug-food, drug-disease interactions: Yes, Tramadol / Sotorasib: may decrease the serum concentration of TraMADol Recommendation: Monitor patients for decreased tramadol efficacy and for signs and symptoms of opioid withdrawal when tramadol is combined with a moderate CY inducer. Conversely, monitor patientsclosely for signs of tramadol toxicities (eg, respiratory depression, seizures, serotonin syndrome/serotonin toxicity) when a moderate CY inducer is discontinued. Action: Will certified genetic counselor pt on DDI and monitor tramadol use The Hematology/Oncology Oral Chemotherapy Clinic will assess medication compliance at each patient encounter Assessment and Plan: [place] plan uploaded and sent to Dr. Almonte for signature MTM to follow up in 1 day for intro/med rec and 3 days to assess beacon plan signature and auth status Yes/no Date Action Taken [place] plan entered? yes 04/04/24 Consent completed? yes 04/02/24 Intro/med rec completed? Precert completed? Test claim completed? Financial assistance needed? Physician signature? Rx released? Education completed? Follow up: 1 and 3 days Sally Nino, PharmD, BCOP Clinical Pharmacist, [facility] Oral Chemotherapy [facility] 04/04/2024, 9:00 AM Monitoring Parameters: Estimated CrCl Serum creatinine: 0.7 [...] LFTs < 5 times ULN Pertinent labs: Latest Reference Range & Units 03/18/24 09:07 WBC 4.00 - 10.80 K/uL 11.34 (H) RBC 3.85 - 5.15 M/uL 3.54 HGB 12.0 - 15.3 g/dL 12.4 HCT 36.0 - 45.2 % 37.4 MCV 81.5 - 97.5 fL 105.6 MCH 27.0 - 34.0 pg 35.0 MCHC 32.0 - 36.0 g/dL 33.2 RDW 11.5 - 15.5 % 17.5 PLT 140 - 400 K/uL 121 (L) MPV 6.6 - 11.1 fL 10.7 CBC WITH WBC DIFFERENTIAL Rpt ! Absolute Neutrophils 1.80 - 7.70 K/uL 9.08 (H) Latest Reference Range & Units 03/18/24 09:07 Albumin 3.8 - 5.0 g/dL 4.4 AST 10 - 35 U/L 21 ALT 10 - 35 U/L 10 Alkaline Phosphatase 35 - 130 U/L 319 (H) Bilirubin, Total <=1.2 mg/dL 0.7 Time Spent on Encounter: 16 - 20 minutes Encounter Group: Oncology Encounter Interventions Item Category: Oral Chemotherapy Sotorasib Problem/Rationale: Indication: Needs additional medication therapy - Untreated condition, - Synergistic therapy [place] Plan Review: Clinical Review Pharmacist Intervention(s): Drug Interaction Screen, Lab monitoring, and Referral review Magnitude of Intervention: Monitoring with direction (Level 1) documented in this encounter Plan of Treatment Upcoming Encounters Date Type Department Care Team (Late st Contact Info) Description 04/05/2024 1:15 PM EST Pharmacy Pharmacy Hematology Oncology [place] [address] [place] [address] [facility], [facility] Hem/Onc [address] [place] [address] 04/09/2024 1:30 PM EST Pharmacy Pharmacy Hematology Oncology [facility] [place] [address] [place] [address] [facility], [facility] Hem/Onc [address] [place] [address] 04/11/2024 2:00 PM EST Office Visit Urology Ashlie Louise [address] [place] [address] Manas Marie MD [address] [place] [address] 04/15/2024 9:30 AM EST Laboratory Laboratory, [facility] [address] [place] [phone] [facility] [place] [address] 05/14/2024 9:00 AM EST Office [facility] [address] [facility] [place] [phone] Chandni Almonte MD [address] [facility] [place] [address] 07/19/2024 11:30 AM EDT Office Visit Cardiology, [facility] [address] [place] [address] iCro Saini DO [address] [place] [address] 02/03/2025 1:00 PM EDT Office Visit Gynecology/Obstetrics [facility] [address] [place] [address] Nelli Farrell CRNP [address] [place] [address] Scheduled Procedures Name Priority Associated Diagnoses Date/Ti [...] encounter Medical Devices Implanted Type Area Data Entry Clerk Device Identifier Shelf Expiration Date Model / Serial / Lot Power Port 8fr Sngl Lumen Plas - [id number] Implanted:Qty : 1 on 01/05/2023 by Jai Malcolm Jr., MD at OR [facility] Right: Chest CR BARD : PERIPHERAL VASCULAR [id number] 07/08/2024 [id number] / / [id number] documented as of this encounter Visit Diagnoses [...] Power of Attor johann? No Care Teams Commercial Food Instructor Relationship Specialty Start Date End Date Lina Can MD [address] [place] [address] [place] [phone] PCP - General Family Medicine 08/06/22 documented as of this encounter
--- OUTSIDE RECORDS SUMMARY | 2024-05-09 12:18 | External Medical Summary | Summary of Care ---
Author Name Unknown Organization [facility] Address [address] [place] [address] Phone [phone] Care Team Providers Care Hop Sorter Name Role Phone Lina Can MD Primary Care Prov ider Encounter Details Date Type Department Care Team (Late st Contact Info) Description 03/27/2024 Telephone Hematology/Oncology [facility] [place] 200 [facility] [place] [address] Alisia Birmingham CRNP 400 [place] [address] Allergies Active Allergy Reactions Criticality Noted Date Comments Amoxicillin-Pot Clavulanate Nausea/vomiting 07/12/2022 GI upset Doxycycline Nausea/vomiting 07/12/2022 GI upset Oxaliplatin Flushing High 07/27/2023 Shortness of breath Metoclopramide Hives 08/10/2022 documented as of this encounter (statuses as of 03/27/2024) Medications Acetaminophen 500 MG Oral Tablet (Tylenol [...] after chemo pump disconnect 1.2 mL 11 02/23/20 24 Active Eliquis 5 MG Oral [...] 3 mL/hr over 46 hours intravenously continuous. 26368 mg 03/19/2024 3:37 PM EST 03/14/20 24 025 Active documented as of this encounter (statuses as of 03/27/2024) Active Problems Problem Noted Date Diagnosed Date [...] as of this encounter (statuses as of 03/27/2024) Immunizations No known immunizationsdocumented as of this [...] of Assessment Author No 11/25/2022 5:16 PM Niikta Milton RN documented as of this encounter Mental Status * Because of a physical, mental, or emotional condition, do you have serious difficulty concentrating, remembering, or making decisions? (5 years old or older) Answer Entry Date Author No 11/25/2022 5:16 PM Nikita Milton RN documented in this encounter Miscellaneous Notes * Telephone Encounter - Tereza Gray RN - 03/27/2024 3:28 PM EST Reviewed with Dr Almonte- would like to see patient before further treatment as treatment will likelybe changing. Called patient. Offered appt with Dr lAmonte tomorrow at [facility]- patient declined as she just drove to [place] for her scan yesterday. Offered appt Monday 04/02 at 2:30pm- advised her that we would need to cancel labs/ treatment as Dr Almonte needs to see her before further treatment. Patient verbalized understanding and accepted this appt. Scheduling: - please cancel labs/ treatment next week - please add patient to see Dr Almonte Monday 04/02 at 2:30pm Patient aware. Thanks! * Telephone Encounter - Alisia Birmingham CRNP - 03/27/2024 2:48 PM EST PET/CT completed today: IMPRESSION Significant interval worsening of FDG avid osseous metastatic disease. Please schedule patient for appointment with Dr. Almonte prior to leaving for vacation for scan review and treatment change if indicated. documented in this encounter Plan of Treatment Upcoming Encounters Date Type Department Care Team (Late st Contact Info) Description 04/01/2024 9:30 AM EST Laboratory Laboratory, [facility] 132 [facility] [place] [phone] Terrance Long 132 [facility] [place] [address] 04/02/2024 10:30 AM EST Hem/Onc Treatment Hematology/Oncology Treatment, [address], [place] [address] 04/11/2024 2:00 PM EST Office Visit Urology Ashlie Louise [address] [place] [address] Manas Marie MD 27 [place] [address] 04/15/2024 9:30 AM EST Laboratory Laboratory, [facility] 132 [facility] [place] [address] Terrance Long 132 [facility] [address] 04/16/2024 9:00 AM EST Office Visit Hematology/Oncology [facility] 200 [facility], [place] [phone] Alisia Birmingham CRNP 400 [facility] [place] [address] 04/16/2024 9:30 AM EST Hem/Onc Treatment Hematology/Oncology Treatment, [place] [address] [place] [address] Nasreen, Chair 11 Hem Onc Scen[address] [place] [address] 05/14/2024 9:00 AM EST Office Visit Hematology/Oncology [facility] [place] [address] [place] [phone] Chandni Almonte MD [address] [place] [address] 07/19/2024 11:30 AM EDT Office Visit Cardiology, [facility] [address] [place] [address] Ciro Saini DO [address] [place] [address] 02/03/2025 1:00 PM EDT Office Visit Gynecology/Obstetrics [facility] [address] [place] [address] Nelli Farrell CRNP [address] [place] [address] Scheduled Procedures Name Priority Associated Diagnoses Date/Ti me PRE / POST CARE Malignant neoplasm of sigmoid colon (HCC) 11/03/2023 9:00 AM EDT Health Maintenance Due Date Last Done Comments Pneumococcal Vaccine: 65+ Years (1 of 2 - PCV) 1961 Hepatitis C Screening 1973 DTap/Tdap Vaccines (1 - Tdap) 1974 Zoster Vaccines (1 of 2) 1974 [...] this encounter Medical Devices Implanted Type Area Steaming Cabinet Tender Device Identifier Shelf Expiration Date Model / Serial / Lot Power Port 8fr Sngl Lumen Plas - [id number] Implanted:Qty : 1 on 01/05/2023 by Jai Malcolm Jr., MD at [facility] Right: Chest CR BARD : PERIPHERAL VASCULAR [id number] 07/08/2024 [id number] / / [id number] documented as of this encounter Advance Directives [...] Power of Attor johann? No Care Teams Hop Sorter Relationship Specialty Start Date End Date Lina Can MD [address] [place] [address] [place] [address] PCP - General Family Medicine 08/06/22 documented as of this encounter
--- OUTSIDE RECORDS SUMMARY | 2024-05-09 12:18 | External Medical Summary | Summary of Care ---
Author Name Unknown Organization [facility] Address [address] [place] [address] Phone [phone] Care Team Providers Care Grab Setter Name Role Phone Lina Can MD Primary Care Prov ider Reason for Visit * Reason Onset Date Comments Advice 03/20/2024 Encounter Details Date Type Department Care Team (Late st Contact Info) Description 03/20/2024 Telephone Hematology/Oncology [facility] [place] 200 [facility] [place] [address] Nadine Bauman CRNP [address] [place] [address] Advice Allergies Active Allergy Reactions Criticality Noted Date Comments Amoxicillin-Pot Clavulanate Nausea/vomiting 07/12/2022 GI upset Doxycycline Nausea/vomiting 07/12/2022 GI upset Oxaliplatin Flushing High 07/27/2023 Shortness of breath Metoclopramide Hives 08/10/2022 documented as of this encounter (statuses as of 03/26/2024) Medications Acetaminophen 500 MG Oral Tablet (Tylenol [...] hours after chemo pump disconnect 1.2 mL 02/23/20 24 Active Eliquis 5 MG Oral Tablet Take 1 Tablet by mouth in the morning and 1 Tablet before bedtime. 60 Tablet 11 02/26/20 24 Active Potassium Chloride ER 10 MEQ Oral Tablet Extended ReleaseIndicatio ns:Malignant neoplasm of sigmoid colon (HCC) Take 1 Tablet by mouth in the morning. 30 Tablet 1 03/11/20 Active Fluorouracil (5-Fu) 4,000 mg in NSS 138 mL infusionIndicati ons:Malignant neoplasm of sigmoid colon (HCC) Administer 4,000 mg at 3 mL/hr over 46 hours intravenously continuous. 68585 mg 03/19/2024 3:37 PM EST 03/14/20 24 025 Active documented as of this encounter (statuses as of 03/26/2024) Active Problems Problem Noted Date Diagnosed Date [...] as of this encounter (statuses as of 03/26/2024) Immunizations No known immunizationsdocumented as of this [...] encounter Miscellaneous Notes * Addendum Note - Nadine Bauman CRNP - 03/26/2024 11:38 AM ESTAddended by: NADINE BAUMAN on: 03/26/2024 11:38 AM Modules accepted: Orders * Telephone Encounter - Nadine Bauman CRNP - 03/26/2024 11:38 AM EST Alteration placed. * Telephone Encounter - Tereza Gray RN - 03/26/2024 8:40 AM EST Nadine: please see MyG and place alteration to change back to 12mg decadron premed per patient request. Thanks! * Telephone Encounter - Tereza Gray RN - 03/22/2024 8:38 AM EST MyG sent. * Telephone Encounter - Jacinto Delaney RN - 03/20/2024 9:26 AM EST Pt seen by SANDRA Zaldivar yesterday prior to chemo. Advised regarding side effects from dexamethasone pretreatment. Plan to decrease dexamethasone with yesterdays cycle to 6mg pretreatment. If patient tolerates ok, will continue with this, if not, can be removed from future cycles. N:S- please follow up with the patient regarding dexa side effects. documented in this encounter Plan of Treatment Upcoming Encounters Date Type Department Care Team (Late st Contact Info) Description 03/27/2024 10:45 AM EST Imaging Radiology, [facility] [address] [place] [phone] 04/01/2024 9:30 AM EST Laboratory Laboratory, [facility] [phone] [facility] 132 [facility] [address] 04/02/2024 10:30 AM EST Hem/Onc Treatment Hematology/Oncology Treatment, [place] [address] [place] [phone] 04/11/2024 2:00 PM EST Office Visit Urology Ashlie Louise [address] [place] [address] Manas Marie MD 27 [place] [address] 04/15/2024 9:30 AM EST Laboratory Laboratory, [facility] [place] [address] Terrance Long [facility] [place] [address] 04/16/2024 9:00 AM EST Office Visit Hematology/Oncology [facility] [address] [place] [phone] Nadine Bauman CRNP 400 [facility] [place] [address] 04/16/2024 9:30 AM EST Hem[facility] [address] [place], [place] [phone] Nasreen, Chair 11 Hem Onc [facility] 200 [facility] [place] [address] 05/14/2024 9:00 AM EST Office Visit Hematology/Oncology [facility] [address] [place] [phone] Chandni Almonte MD [address] [place], [place] [address] 07/19/2024 11:30 AM EDT Office Visit Cardiology, Health system [address] [place] [address] Ciro Saini DO [address] [place] [address] 02/03/2025 1:00 PM EDT Office Visit Gynecology/Obstetrics [facility] [address] [place] [address] Nelli Farrell CRNP [address] [place] [address] Scheduled Procedures Name Priority Associated Diagnoses Date/Ti [...] this encounter Medical Devices Implanted Type Area Auto Job Estimator Device Identifier Shelf Expiration Date Model / Serial / Lot Power Port 8fr Sngl Lumen Plas - [id number] Implanted:Qty : 1 on 01/05/2023 by Jai Malcolm Jr., MD at [facility] Right: Chest CR BARD : PERIPHERAL VASCULAR [id number] 07/08/2024 [id number] / / [id number] documented as of this encounter Visit Diagnoses Diagnosis Encounter for antineoplastic chemotherapy- Primary documented in this encounter Advance Directives * [...] Power of Attor johann? No Care Teams Grab Setter Relationship Specialty Start Date End Date Lina Cna MD [address] [place] [address] [place] [phone] PCP - General Family Medicine 08/06/22 documented as of this encounter
--- OUTSIDE RECORDS SUMMARY | 2024-05-09 12:18 | External Medical Summary | Summary of Care ---
Author Name Unknown Organization [facility] Address [address] [place] [address] Phone [phone] Care Team Providers Care Financial Wellness Coach Name Role Phone Lina Can MD Primary Care Prov ider Reason for Visit * Reason Comments Procedure Pump d/c Encounter Details Date Type Department Care Team (Latest Contact Info) Description 03/21/2024 2:30 PM EST Immunization/ Injection Hematology/Oncology Treatment, [address] [address] Nasreen, Chair [address] Hem [address] [address] Encounter for antineoplastic chemotherapy*; Malignant neoplasm of sigmoid colon (HCC) Allergies Active Allergy Reactions Criticality Noted Date Comments Amoxicillin-Pot Clavulanate Nausea/vomiting 07/12/2022 GI upset Doxycycline Nausea/vomiting 07/12/2022 GI upset Oxaliplatin Flushing High 07/27/2023 Shortness of breath Metoclopramide Hives 08/10/2022 documented as of this encounter (statuses as of 03/21/2024) Medications Acetaminophen 500 MG Oral Tablet (Tylenol [...] 6 MG/0.6ML Subcutaneous Solution Prefilled Syringe (Pegfilgrastim)I ndications:Malmarjorie nant neoplasm of sigmoid colon (HCC),Prevention of [...] 3 mL/hr over 46 hours intravenously continuous. 77469 mg 03/19/2024 3:37 PM EST 03/14/20 24 025 Active documented as of this encounter (statuses as of 03/21/2024) Active Problems Problem Noted Date Diagnosed Date [...] as of this encounter (statuses as of 03/21/2024) Immunizations No known immunizationsdocumented as of this [...] documented in this encounter Nursing Notes * Sanjana Browne RN - 03/21/2024 3:18 PM EST Chair 9 Patient complained of pain in the right leg, stating it may be sciatica. She states she has not taken all of her pain medications. She will reach out if she is not feeling better tomorrow. Patient arrived today s/p 46 hours of 5FU infusion. Port flushed with NSS, blood return noted, and port locked with Heparin. Port needle removed. Patient left facility today in stable condition and denied further needs at this time. documented in this encounter Plan of Treatment Upcoming Encounters Date Type Department Care Team (Late st Contact Info) Description 03/27/2024 10:45 AM EST Imaging Radiology, [place] [address] [place] [address] 04/01/2024 9:30 AM EST Laboratory Laboratory, [facility] 132 [facility] [place] [address] Terrance Long [facility] [place] [address] 04/02/2024 10:30 AM EST [facility] [address] 04/11/2024 2:00 PM EST Office Visit Ashlie [place] [address] [place] [address] Manas Marie MD 27 [place] [address] 04/15/2024 9:30 AM EST Laboratory Laboratory, [facility] 132 [facility] [place] [address] Terrance Long 132 [facility] [place] [address] 04/16/2024 9:00 AM EST Office Visit Hematology/Oncology [facility] [address] [place] [phone] Alisia Birmingham CRNP [address] [place] [address] [place] [address] 04/16/2024 9:30 AM EST Hem/Onc Treatment Hematology/Oncology Treatment, [place] 200 [facility], [place] [phone] Nasreen, Chair 11 Hem Onc [place] [address] [place] [address] 05/14/2024 9:00 AM EST Office Visit Hematology/Oncology [facility] [address] [place] [phone] Chandni Almonte MD [address] [place] [address] 07/19/2024 11:30 AM EDT Office Visit Cardiology, [facility] [address] [place] [address] Ciro Saini DO [address] [place] [address] 02/03/2025 1:00 PM EDT Office Visit Gynecology/Obstetrics [facility] [address] [place] [address] Nelli Farrell CRNP [address] [place] [address] Scheduled Procedures Name Priority Associated Diagnoses Date/Ti [...] this encounter Medical Devices Implanted Type Area Freelance Copywriter Device Identifier Shelf Expiration Date Model / Serial / Lot Power Port 8fr Sngl Lumen Plas - [id number] Implanted:Qty : 1 on 01/05/2023 by Jai Malcolm Jr., MD at OR [facility] Right: Chest CR BARD : PERIPHERAL VASCULAR [id number] 07/08/2024 [id number] / / [id number] documented as of this encounter Visit Diagnoses [...] PRN Other, IV Flush, Starting on Shi 03/21/24 at 1436, Until Mon03/22/24 at 1435, For 24 hours, Do not flush if lock, PICC, or central line not in place; IV infusing or unable to flush.Indications:Encounter for antineoplastic chemotherapy,Malignant neoplasm of sigmoid colon (HCC) Given 03/21/2024 2:40 PM EST 500 Units sodium chloride 0.9 % flush central line 10 mL 10 mL, IV Push, PRN Other, IV Flush, Starting on Shi 03/21/24 at 1436, Until 03/22/24 at 1435, For 24 hours, Do not flush if lock, PICC, or central line not in place; IV infusing or unable to flush.Indications:Encounter for antineoplastic chemotherapy,Malignant neoplasm of sigmoid colon (HCC) Given 03/21/2024 2:40 PM EST 10 mL documented in this [...] Power of Attor johann? No Care Teams Financial Wellness Coach Relationship Specialty Start Date End Date Lina Can MD [address] [place] [address] [place] [phone] PCP - General Family Medicine 08/06/22 documented as of this encounter
--- OUTSIDE RECORDS SUMMARY | 2024-05-09 12:18 | External Medical Summary | Summary of Care ---
Author Name Unknown Organization [facility] Address [address] [place] [address] Phone [phone] Care Team Providers Care Rn Nicu Name Role Phone Lina Can MD Primary Care Prov ider Reason for Visit * Reason Onset Date Comments Surgery 03/14/2024 Encounter Details Date Type Department Care Team (Late st Contact Info) Description 03/14/2024 Telephone General Surgery [place] [address] [place] [address] Timoteo Ayala, DO [address] [place] [address] Surgery Allergies Active Allergy Reactions Criticality Noted Date Comments Amoxicillin-Pot Clavulanate Nausea/vomiting 07/12/2022 GI upset Doxycycline Nausea/vomiting 07/12/2022 GI upset Oxaliplatin Flushing High 07/27/2023 Shortness of breath Metoclopramide Hives 08/10/2022 documented as of this encounter (statuses as of 03/20/2024) Medications Acetaminophen 500 MG Oral Tablet (Tylenol [...] 6 MG/0.6ML Subcutaneous Solution Prefilled Syringe (Pegfilgrastim)I ndications:Barrymarjorie nant neoplasm of sigmoid colon (HCC),Prevention of [...] 3 mL/hr over 46 hours intravenously continuous. 83451 mg 03/19/2024 3:37 PM EST 03/14/20 24 025 Active documented as of this encounter (statuses as of 03/20/2024) Active Problems Problem Noted Date Diagnosed Date [...] as of this encounter (statuses as of 03/20/2024) Immunizations No known immunizationsdocumented as of this [...] encounter Miscellaneous Notes * Telephone Encounter - Bruna Garcia OSA - 03/20/2024 2:55 PM EST OR notified and case has been canceled. * Telephone Encounter - Alisia [place] CRNP - 03/20/2024 2:24 PM EST Patient now with metastatic disease and has resumed chemotherapy. Please cancel upcoming colonoscopy. * Telephone Encounter - Bruna Garcia OSA - 03/14/2024 2:26 PM EST Patient called back in and was asked if she was ok with moving her surgery from 05/28/24 to 05/16/24. Patient agreed with moving her colonoscopy to 05/16/24. * Telephone Encounter - Bruna Garcia OSA - 03/14/2024 1:36 PM EST LMOM for patient to call me back to discuss about scheduling her procedure for another day. When she calls back, please send her my way. documented in this encounter Plan of Treatment Upcoming Encounters Date Type Department Care Team (Late st Contact Info) Description 03/21/2024 2:30 PM EST Immunization/Injec tion Hematology/Oncolog y Treatment, [address] [phone] Park, Chair 2 Hem Onc [address] [place] [address] 03/27/2024 10:45 AM EST Imaging Radiology, [address] [place] [address] 04/01/2024 9:30 AM EST [facility] 132 [place] [address] LongTerrance alva [facility] [address] [place] [address] 04/02/2024 10:30 AM EST Hem/Onc Treatment Hematology/Oncolog y Treatment, [address] [place] [address] 04/11/2024 2:00 PM EST Office Visit Urology [place] [address] [place] [address] Manas Marie MD 27 [place] [address] 04/15/2024 9:30 AM EST [facility] [phone] Terrance Long [facility] 132 [facility] [place] [address] 04/16/2024 9:00 AM EST Office Visit Hematology/Oncolog y [place] [address] [place] [address] Alisia [place] CRNP 400 [facility] [place] [address] 04/16/2024 9:30 AM EST Hem/Onc Treatment Hematology/Oncolog y Treatment, [place] [address] [place] [address] Nasreen, Chair 11 Hem Onc Scenery [address] [place] [address] 05/06/2024 9:15 AM EST Scheduled Telephone General Surgery [place] Louise 27 [facility] 270 [place] [address] [place], Nurse Gen Surg Rhonda Crespo RN [address] [facility] [address] [place] [address] 05/14/2024 9:00 AM EST Office Visit Hematology/Oncolog y [facility] [place] [address] [place] [address] Chandni Almonte MD [address] [place] [address] 05/16/2024 7:30 AM EST Hospital Encounter OR [facility], Operating Room, [facility] - 4th Floor [address] [place] [phone] Timoteo Ayala, DO [address] [place] [facility] [address] 05/16/2024 7:30 AM EST - 05/16/2024 8:16 AM EST Surgery OR [facility], Operating Room, [facility] - 4th Floor [address] [place] [phone] Timoteo Ayala, DO [address] [facility] [place] [address] COLONOSCOPY FLEXIBLE PROXIMAL DIAGNOSTIC 07/19/2024 11:30 AM EDT Office Visit Cardiology, [facility] [address] [place] [address] Ciro Saini, [address] [place] [address] 02/03/2025 1:00 PM EDT Office Visit Gynecology/Obstetr [facility] [address] [place] [address] Nelli Farrell CRNP [address] [place] [address] Scheduled Procedures Name Priority Associated Diagnoses Date/Ti me COLONOSCOPY FLEXIBLE PROXIMAL DIAGNOSTIC Cancer of sigmoid colon (HCC) 05/16/2024 7:30 AM EST PRE / POST CARE Malignant neoplasm of [...] this encounter Medical Devices Implanted Type Area Ring Facer Device Identifier Shelf Expiration Date Model / Serial / Lot Power Port 8fr Sngl Lumen Plas - [id number] Implanted:Qty : 1 on 01/05/2023 by Jai Malcolm Jr., MD at [facility] Right: Chest CR BARD : PERIPHERAL VASCULAR [id number] 07/08/2024 [id number] / / [id number] documented as of this encounter Advance Directives [...] Power of Attor johann? No Care Teams Rn Nicu Relationship Specialty Start Date End Date Lina Can MD [address] [place] [address] [place] [phone] PCP - General Family Medicine 08/06/22 documented as of this encounter
--- OUTSIDE RECORDS SUMMARY | 2024-05-09 12:18 | External Medical Summary | Summary of Care ---
Author Name Unknown Organization [facility] Address [address] [place] [address] Phone [phone] Care Team Providers Care Health Communications Specialist Name Role Phone Lina Can MD Primary Care Prov ider Encounter Details Date Type Department Care Team (Late st Contact Info) Description 03/27/2024 Telephone Hematology/Oncology [facility] [place] 200 [facility] [place] [place] [address] Alisia [place] CRNP 400 [place] [address] Allergies Active Allergy Reactions Criticality Noted [...] 3 mL/hr over 46 hours intravenously continuous. 75380 mg 03/19/2024 3:37 PM EST 03/14/20 24 [...] EDNikita Mccormack RN * Do you have serious difficulty [...] Telephone Encounter - Glo Drake OSA - 03/27/2024 3:36 PM EST Pt added and other apts canceled per note * Telephone Encounter - Tereza Gray RN - 03/27/2024 3:28 PM EST Reviewed with Dr Almonte- would like to see patient before further treatment as treatment will likelybe changing. Called patient. Offered appt with Dr Almonte tomorrow at [facility]- patient declined as she just drove to [place] for her scan yesterday. Offered appt Monday [...] 04/02/2024 2:30 PM EST Office Visit Hematology/Oncology [facility] 200 [facility] [place] [phone] Chandni Almonte MD 200 [facility] [place] [address] 04/11/2024 2:00 PM EST Office Visit Urology [place] [address] [place] [address] Manas Marie MD [address] [place] [address] 04/15/2024 9:30 AM EST Laboratory Laboratory, [facility] 132 [facility] [phone] Terrance Long 132 [facility] [place] [address] 04/16/2024 9:00 AM EST Office Visit Hematology/Oncology [facility] 200 [facility] [place] [phone] Alisia [place] CRNP [address] [place] [address] [place] [address] 04/16/2024 9:30 AM EST Hem/Onc Treatment Hematology/Oncology Treatment, [place] [address] [place] [phone] Nasreen, Chair 11 Hem Onc [address]ery [address] [place] [address] 05/14/2024 9:00 AM EST Office Visit Hematology/Oncology [place] [address] [place] [phone] Chandni Almonte MD [address] [place] [address] 07/19/2024 11:30 AM EDT Office Visit Cardiology, [facility] [address] [place] [address] Ciro Saini DO [address] [place] [address] 02/03/2025 1:00 PM EDT Office Visit Gynecology/Obstetrics [facility] [address] [place] [address] Nelli Farrell CRNP [address] [place] [address] Scheduled Procedures Name Priority Associated Diagnoses Date/Ti [...] this encounter Medical Devices Implanted Type Area Director Of Operations Device Identifier Shelf Expiration Date Model / Serial / Lot Power Port 8fr Sngl Lumen Plas - [id number] Implanted:Qty : 1 on 01/05/2023 by Jai Malcolm Jr., MD at OR [facility] Right: Chest CR BARD : PERIPHERAL VASCULAR [id number] 07/08/2024 [id number] / / [id number] documented as of this encounter Advance Directives [...] of Attor johann? No Care Teams Health Communications Specialist Relationship Specialty Start Date End Date Lina Can MD [address] [place] [address] [place] [phone] PCP - General Family Medicine 08/06/22 documented as of this encounter
--- OUTSIDE RECORDS SUMMARY | 2024-05-09 12:18 | External Medical Summary | Summary of Care ---
Author Name Unknown Organization [facility] Address [address] [place] [address] Phone [phone] Care Team Providers Care Ultrasound Technician Name Role Phone Lina Can MD Primary Care Prov ider Encounter Details Date Type Department Care Team (Late st Contact Info) Description 04/01/2024 Orders Only Hematology/Oncology [facility] [place] 200 [facility] [place] [phone] Chandni Almonte MD 200 [facility] [place] [address] Malignant neoplasm of sigmoid colon (HCC)* Allergies Active Allergy Reactions Criticality Noted Date Comments Amoxicillin-Pot Clavulanate Nausea/vomiting 07/12/2022 GI upset Doxycycline Nausea/vomiting 07/12/2022 GI upset Oxaliplatin Flushing High 07/27/2023 Shortness of breath Metoclopramide Hives 08/10/2022 documented as of this encounter (statuses as of 04/01/2024) Medications Acetaminophen 500 MG Oral Tablet (Tylenol [...] 3 mL/hr over 46 hours intravenously continuous. 23575 mg 03/19/2024 3:37 PM EST 03/14/20 24 025 Active documented as of this encounter (statuses as of 04/01/2024) Active Problems Problem Noted Date Diagnosed Date [...] as of this encounter (statuses as of 04/01/2024) Immunizations No known immunizationsdocumented as of this [...] documented in this encounter Miscellaneous Notes * Oncology Pathways Update - Chandni Almonte MD - 04/01/2024 9:01 PM EST START ON PATHWAY REGIMEN - Colorectal [id number]: Sotorasib 960 mg Daily + Panitumumab 6 mg/kg q14 Days A cycle is every 14 days: Sotorasib (Lumakras) 960 mg flat dose orally once daily on days 1 through 14 Panitumumab (Vectibix) 6 mg/kg IV once on day 1 Always confirm dose/schedule in your pharmacy ordering system Citations: -Kenisha MG, Paxton Berry, Rico T, Levar DP, Mariann DP, Feng J, Rohan MV, Yazmin E, Savi TW, Christen Y, Merangel F, Liu D, Yedarrel KH, Paula E, Bony J, Sapcathy Y, Quezada Q, Dahiana Childress. Sotorasib plus Panitumumab in Refractory Colorectal Cancer with [id number]. N Engl J Med. 2022Mar 16;389(62):0861-0598. doi: 10.1056/[id number]. Epub 2022Jan 29. PMID: 48017792. URL: https://pubmed.ncbi.nlm.nih.gov/40991624/ Patient Characteristics: Distant Metastases, Nonsurgical Candidate, KRAS G12C Mutation Positive (BRAF V600 Wild-Type/Unknown), Standard Cytotoxic/KRAS-targeted Therapy, Third Line Standard Cytotoxic/KRAS-targeted Therapy Tumor Location: Colon Therapeutic Status: Distant Metastases Microsatellite/Mismatch Repair Status: HESHAM/pMMR BRAF Mutation Status: Wild-Type (no mutation) KRAS/NRAS Mutation Status: KRAS G12C Mutation Positive Preferred Therapy Approach: Standard Cytotoxic/KRAS-targeted Therapy Line of Therapy: Third Line Standard Cytotoxic/KRAS-targeted Therapy Intent of Therapy: Non-Curative / Palliative Intent, Discussed with Patient * Oncology Pathways Notification - Chandni Almonte MD - 04/01/2024 9:01 PM EST A new patient decision has been made in [facility]Path. Details of this patient have been provided below: Patient Information: Name: Nyasia Hdez : 1955 Insurance Provider: MARTINE COR[facility] Insurance Insurance Plan ID: [id number] Provider Name: Chandni Almonte Disease: Colorectal Pathway Followed: Colorectal, Distant Metastases, Nonsurgical Candidate, KRAS G12C Mutation Positive (BRAF V600 Wild-Type/Unknown), Standard Cytotoxic/KRAS- targeted Therapy, Third Line Standard Cytotoxic/KRAS-targeted Therapy Patient Characteristics: Distant Metastases, Nonsurgical Candidate, KRAS G12C Mutation Positive (BRAF V600 Wild-Type/Unknown), Standard Cytotoxic/KRAS-targeted Therapy, Third Line Standard Cytotoxic/KRAS-targeted Therapy Tumor Location: Colon Therapeutic Status: Distant Metastases Microsatellite/Mismatch Repair Status: HESHAM/pMMR BRAF Mutation Status: Wild-Type (no mutation) KRAS/NRAS Mutation Status: KRAS G12C Mutation Positive Preferred Therapy Approach: Standard Cytotoxic/KRAS-targeted Therapy Line of Therapy: Third Line Standard Cytotoxic/KRAS-targeted Therapy Intent of Therapy: Non-Curative / Palliative Intent, Discussed with PatientTreatment Details: START ON PATHWAY REGIMEN [id number]: Sotorasib 960 mg Daily + Panitumumab 6 mg/kg q14 Days A cycle is every 14 days: Sotorasib (Lumakras) 960 mg flat dose orally once daily on days 1 through 14 Panitumumab (Vectibix) 6 mg/kg IV once on day 1 Always confirm dose/schedule in your pharmacy ordering system Citations: -Kenisha MG, Paxton L, Rico T, Levar DP, Mariann DP, Feng J, Rohan MV, Yazmin E, Savi TW, Christen Y, Vero F, Noe D, Sophia KH, Chai E, Bony J, Sapcathy Y, Quezada Q, Walter C, Dahiana F. Sotorasib plus Panitumumab in Refractory Colorectal Cancer with [id number]. N Engl J Med. 2022Mar 16;389(23):7539-2520. doi: 10.1056/[id number]. Epub 2022Jan 29. PMID: 60710016. URL: https://pubmed.ncbi.nlm.nih.gov/14834641/ Change Reason: Disease Progression Prior Treatment: [id number]: FOLFIRI + Bevacizumab q14 Days Treatment Response: Progressive Disease (PD) documented in this encounter Plan of Treatment Upcoming Encounters Date Type Department Care Team (Late st Contact Info) Description 04/02/2024 2:30 PM EST Office Visit Hematology/Oncology [facility] [address] [place] [address] Chandni Almonte MD [address] [place] [address] [address] 04/11/2024 2:00 PM EST Office Visit Urology [place] [address] [place] [address] Manas Marie MD [address] [place] [address] 04/15/2024 9:30 AM EST Laboratory Laboratory, [facility] 132 [facility] [address] [facility] 132 [facility] [address] 04/16/2024 9:00 AM EST Office Visit Hematology/Oncology [facility] [address] [place] [phone] Alisia [place] CRNP 400 [facility] [place] [phone] 04/16/2024 9:30 AM EST Hem[facility]c [facility] [address] [place], [place] [phone] Nasreen, Chair 11 Hem Onc [facility] 200 [facility] [place], [place] [address] 05/14/2024 9:00 AM EST Office Visit Hematology/Oncology [facility] 200 [facility] [place], [place] [address] Chandni Almonte MD [address] [place], [place] [address] 07/19/2024 11:30 AM EDT Office Visit Cardiology, [facility] 132 [facility] [place] [address] Ciro Saini DO 132 [facility] [place] [address] 02/03/2025 1:00 PM EDT Office Visit Gynecology/Obstetrics [facility] [address] [place] [address] Backer, SANDRA Murillo [address] [place] [address] Scheduled Procedures Name Priority Associated Diagnoses Date/Ti [...] this encounter Medical Devices Implanted Type Area Software Applications Developer Device Identifier Shelf Expiration Date Model / Serial / Lot Power Port 8fr Sngl Lumen Plas - [id number] Implanted:Qty : 1 on 01/05/2023 by Jai Malcolm Jr., MD at OR [facility] Right: Chest CR BARD : PERIPHERAL VASCULAR [id number] 07/08/2024 [id number] / / [id number] documented as of this encounter Visit Diagnoses [...] Power of Attor johann? No Care Teams Ultrasound Technician Relationship Specialty Start Date End Date Lina Can MD [address] [place] [address] [place] [address] PCP - General Family Medicine 08/06/22 documented as of this encounter
--- OUTSIDE RECORDS SUMMARY | 2024-05-09 12:18 | External Medical Summary | Summary of Care ---
Author Name Unknown Organization [facility] Address [address] [place] [address] Phone [phone] Care Team Providers Care Exchange Mechanic Name Role Phone Lina Can MD Primary Care Prov ider Encounter Details Date Type Department Care Team (Late st Contact Info) Description 03/27/2024 Telephone Hematology/Oncology [facility] [place] 200 [facility] [place] [address] Alisia [place] CRNP 400 [place] [address] Allergies Active Allergy Reactions Criticality Noted [...] 3 mL/hr over 46 hours intravenously continuous. 50874 mg 03/19/2024 3:37 PM EST 03/14/20 24 [...] encounter Miscellaneous Notes * Telephone Encounter - Alisia Birmingham CRNP [...] Description 04/01/2024 9:30 AM EST Laboratory Laboratory, [facility] 132 [facility] [place] [phone] LongTerrance alva 132 [facility] [place] [address] 04/02/2024 10:30 AM EST Hem/Onc Treatment Hematology/Oncology Treatment, [place] 200 [facility], [place] [address] 04/11/2024 2:00 PM EST Office Visit Urology [place] Louise [address] [place] [address] Manas Marie MD [address] [place] [address] 04/15/2024 9:30 AM EST Laboratory Laboratory, [facility] 132 [facility] [place] [phone] [facility] 132 [facility] [place] [address] 04/16/2024 9:00 AM EST Office Visit Hematology/Oncology [facility] 200 [facility] [place] [phone] Alisia [place] CRNP 400 [facility] [place] [address] 04/16/2024 9:30 AM EST Hem/Onc Treatment Hematology/Oncology [facility] 200 [facility], [place] [phone] Nasreen Chair 11 Hem Onc [address] [place] [address] 05/14/2024 9:00 AM EST Office Visit Hematology/Oncology [facility] 200 [place] [phone] Chandni Almonte MD 200 [place] [address] 07/19/2024 11:30 AM EDT Office Visit Cardiology, [facility] [address] [place] [address] Ciro Saini, [address] [place] [address] 02/03/2025 1:00 PM EDT Office Visit Gynecology/Obstetrics Jim Long [address] [place] [address] Backer, SANDRA Murillo [address] [place] [address] Scheduled Procedures Name Priority Associated Diagnoses Date/Ti [...] Medical Devices Implanted Type Area Director Of Catering Sales Device Identifier Shelf Expiration Date Model / Serial / Lot Power Port 8fr Sngl Lumen Plas - [id number] Implanted:Qty : 1 on 01/05/2023 by Jai Malcolm Jr., MD at OR [facility] Right: Chest CR BARD : PERIPHERAL VASCULAR [id number] 07/08/2024 [id number] / / [id number] documented as of this encounter Advance Directives [...] Power of Attor johann? No Care Teams Exchange Mechanic Relationship Specialty Start Date End Date Lina Can MD [address] [place] [address] [place] [address] PCP - General Family Medicine 08/06/22 documented as of this encounter
--- OUTSIDE RECORDS SUMMARY | 2024-05-09 12:18 | External Medical Summary | Summary of Care ---
Author Name Unknown Organization [facility] Address [address] [place] [address] Phone [phone] Care Team Providers Care Group Underwriter Name Role Phone Lina Can MD Primary Care Prov ider Encounter Details Date Type Department Care Team (Late st Contact Info) Description 04/01/2024 Orders Only Hematology/Oncology [facility] [place] 200 [facility] [place] [phone] Chandni Almonte MD 200 [facility] [address] Allergies Active Allergy Reactions Criticality Noted Date [...] 3 mL/hr over 46 hours intravenously continuous. 73799 mg 03/19/2024 3:37 PM EST 03/14/20 24 [...] Entry Date Author No 11/25/2022 5:16 PM Niikta Milton RN documented in this encounter Plan of Treatment Upcoming Encounters Date Type Department Care Team (Late st Contact Info) Description 04/02/2024 2:30 PM EST Office Visit Hematology/Oncology [facility] 200 [facility] [place] [phone] Chandni Almonte MD 200 [facility] [place] [address] 04/11/2024 2:00 PM EST Office Visit Urology [place] Louise [address] [place] [address] Manas Marie MD 27 [place] [address] 04/15/2024 9:30 AM EST Laboratory Laboratory, [facility] 132 [facility] [place] [phone] [facility] [address] [place] [address] 04/16/2024 9:00 AM EST Office Visit Hematology/Oncology [facility] [place] [address] [place] [phone] Alisia [place] CRNP [address] [place] [address] 04/16/2024 9:30 AM EST Hem/Onc Treatment Hematology/Oncology Treatment, [place] [address] [place] [phone] Nasreen, Chair 11 Hem Onc [facility] 200 [facility] [address] 05/14/2024 9:00 AM EST Office Visit Hematology/Oncology [facility] [place] [address] [place] [address] Chandni Almonte MD [address] [place] [address] 07/19/2024 11:30 AM EDT Office Visit Cardiology, [facility] [address] [place] [address] Ciro Saini DO 132 [place] [address] 02/03/2025 1:00 PM EDT Office Visit Gynecology/Obstetrics [facility] [address] [place] [address] Nelli Farrell CRNP [address] [place] [address] Scheduled Procedures Name Priority Associated Diagnoses Date/Ti [...] this encounter Medical Devices Implanted Type Area Curb Supervisor Device Identifier Shelf Expiration Date Model / Serial / Lot Power Port 8fr Sngl Lumen Plas - [id number] Implanted:Qty : 1 on 01/05/2023 by Jai Malcolm Jr., MD at [facility] Right: Chest CR BARD : PERIPHERAL VASCULAR [id number] 07/08/2024 [id number] / / [id number] documented as of this encounter Advance Directives [...] Power of Attor johann? No Care Teams Group Underwriter Relationship Specialty Start Date End Date Lina Can MD [address] [place] [address] [place] [phone] PCP - General Family Medicine 08/06/22 documented as of this encounter
--- OUTSIDE RECORDS SUMMARY | 2024-05-09 12:18 | External Medical Summary | Summary of Care ---
Author Name Unknown Organization [facility] Address [address] [place] [address] Phone [phone] Care Team Providers Care Bellows Tester Name Role Phone Lina Can MD Primary Care Prov ider Reason for Visit * Reason Onset Date Comments Advice 03/20/2024 Encounter Details Date Type Department Care Team (Late st Contact Info) Description 03/20/2024 Telephone Hematology/Oncology [facility] [place] 200 [facility] [place] [address] Alisia Birmingham CRNP 400 [place] [address] Advice Allergies Active Allergy Reactions [...] 3 mL/hr over 46 hours intravenously continuous. 16830 mg 03/19/2024 3:37 PM EST 03/14/20 24 [...] Gray RN - 03/26/2024 8:40 AM EST Alisia: please see MyG and place alteration to [...] 10:45 AM EST Imaging Radiology, [place] [address] [place] [address] 04/01/2024 9:30 AM EST Laboratory Laboratory, [facility] 132 [facility] [place] [phone] Terrance Long 132 [facility] [place] [address] 04/02/2024 10:30 AM EST Hem/Onc Treatment Hematology/Oncology Treatment, [address] [address] 04/11/2024 2:00 PM EST Office Visit Urology Ashlie Louise [address] [place] [address] Manas Marie MD 27 [place] [address] 04/15/2024 9:30 AM EST Laboratory Laboratory, [facility] 132 [facility] [place] [phone] Terrance Long 132 [facility] [place] [address] 04/16/2024 9:00 AM EST Office Visit Hematology/Oncology [facility] 200 [facility] [phone] Alisia Birmingham CRNP [address] [place] [address] [place] [address] 04/16/2024 9:30 AM EST Hem/Onc Treatment Hematology/Oncology Treatment, [place] [address] [place], [place] [phone] Nasreen, Chair 11 Hem Onc Scenery [address] [place] [address] 05/14/2024 9:00 AM EST Office Visit Hematology/Oncology [facility] [place] [address] [place] [phone] Chandni Almonte MD [address] [place] [address] 07/19/2024 11:30 AM EDT Office Visit Cardiology, [facility] [address] [place] [address] Ciro Saini DO [address] [place] [address] 02/03/2025 1:00 PM EDT Office Visit Gynecology/Obstetrics [facility] [address] [place] [address] Nelli Farrell CRNP [address] [place] [address] Scheduled Procedures Name Priority Associated Diagnoses Date/Ti [...] this encounter Medical Devices Implanted Type Area Wool Batting Worker Device Identifier Shelf Expiration Date Model / Serial / Lot Power Port 8fr Sngl Lumen Plas - [id number] Implanted:Qty : 1 on 01/05/2023 by Jai Malcolm Jr., MD at [facility] Right: Chest CR BARD : PERIPHERAL VASCULAR [id number] 07/08/2024 [id number] / / [id number] documented as of this encounter Advance Directives [...] Power of Attor johann? No Care Teams Bellows Tester Relationship Specialty Start Date End Date Lina Can MD [address] [place] [address] [place] [phone] PCP - General Family Medicine 08/06/22 documented as of this encounter
--- OUTSIDE RECORDS SUMMARY | 2024-05-09 12:18 | External Medical Summary | Summary of Care ---
Author Name Unknown Organization [facility] Address [address] [place] [address] Phone [phone] Care Team Providers Care Airport Utility Worker Name Role Phone Lina Can MD Primary Care Prov ider Reason for Visit * Reason Onset Date Comments Pre Cert/Prior Auth 03/27/2024 Encounter Details Date Type Department Care Team (Late st Contact Info) Description 03/27/2024 Telephone Hematology/Oncology, [facility] 400 [place] [address] Chandni Almonte MD 200 [place] [address] Pre Cert/Prior Auth Allergies Active Allergy Reactions Criticality Noted Date [...] 3 mL/hr over 46 hours intravenously continuous. 66683 mg 03/19/2024 3:37 PM EST 03/14/20 24 [...] Date Author No 11/25/2022 5:16 PM Nikita iMlton RN documented in this encounter Miscellaneous Notes * Telephone Encounter - Nata Knutson CPhT - 03/27/2024 10:33 AM EST New or re-auth: re auth Patient Nyasia Hdez needs a prior authorization for a medication through their [facility] insurance. Medication: neulasta Formulation: 6mg/0.6ml inj Dosage: 1.2 ml per 28 days ID: [id number] BIN:[id number] PCN:nvtd Phone: Target ship date is 04/01. Thank you very much, Nata Knutson CPhT documented in this encounter Plan of Treatment Upcoming Encounters Date Type Department Care Team (Late st Contact Info) Description 03/27/2024 12:00 PM EST Imaging Radiology, [facility] [address] [place] [address] [place] [address] Arrived 04/01/2024 9:30 AM EST Laboratory Laboratory, [facility] 132 [facility] [place] [phone] Terrance Long 132 [facility] [place] [address] 04/02/2024 10:30 AM EST Hem/Onc Treatment Hematology/Oncology [address]IV[address] [phone] 04/11/2024 2:00 PM EST Office Visit Ashlie Shore [address] [facility] 270 [place] [address] Manas Marie MD 27 [place] [address] 04/15/2024 9:30 AM EST Laboratory Laboratory, [facility] 132 [facility] [place] [phone] Terrance Long 132 [facility] [place] [address] 04/16/2024 9:00 AM EST Office Visit Hematology/Oncology [address] [place] [phone] Alisia Birmingham CRNP 400 [facility] [place] [address] 04/16/2024 9:30 AM EST Hem/Onc Treatment Hematology/Oncology Treatment, [address], [place] [address] Nasreen, Chair 11 Hem Onc [address] [place] [address] 05/14/2024 9:00 AM EST Office Visit Hematology/Oncology [address] [place], [place] [address] Chandni Almonte MD [address] [place] [address] 07/19/2024 11:30 AM EDT Office Visit Cardiology, [facility] [address] [place] [address] Ciro Saini DO [address] [place] [address] 02/03/2025 1:00 PM EDT Office Visit Gynecology/Obstetrics [facility] [address] [place] [address] Nelli Farrell CRNP [address] [place] [address] Scheduled Procedures Name Priority Associated Diagnoses Date/Ti [...] this encounter Medical Devices Implanted Type Area Project Control Analyst Device Identifier Shelf Expiration Date Model / Serial / Lot Power Port 8fr Sngl Lumen Plas - [id number] Implanted:Qty : 1 on 01/05/2023 by Jai Malcolm Jr., MD at [facility] Right: Chest CR BARD : PERIPHERAL VASCULAR [id number] 07/08/2024 [id number] / / [id number] documented as of this encounter Advance Directives [...] Power of Attor johann? No Care Teams Airport Utility Worker Relationship Specialty Start Date End Date Lina Can MD [address] [place] [address] [place] [phone] PCP - General Family Medicine 08/06/22 documented as of this encounter
--- OUTSIDE RECORDS SUMMARY | 2024-05-09 12:18 | External Medical Summary | Summary of Care ---
Author Name Unknown Organization [facility] Address [address] [place] [address] Phone [phone] Care Team Providers Care Integration Assistant Name Role Phone Lina Can MD Primary Care Prov ider Reason for Visit * Reason Onset Date Comments Advice 03/20/2024 Encounter Details Date Type Department Care Team (Late st Contact Info) Description 03/20/2024 Telephone Hematology/Oncology [facility] [place] 200 [facility] [place] [address] Nadine Bauman CRNP 400 [place] [address] Advice Allergies Active Allergy Reactions [...] 3 mL/hr over 46 hours intravenously continuous. 03574 mg 03/19/2024 3:37 PM EST 03/14/20 24 [...] Encounter - Tereza Gray RN - 03/26/2024 12:06 PM EST [place] updated. * Addendum Note - Nadine Bauman CRNP [...] Description 03/27/2024 10:45 AM EST Imaging Radiology, [address] [place] [phone] 04/01/2024 9:30 AM EST Laboratory Laboratory, [facility] 132 [facility] [phone] [facility] [address] [facility] [place] [address] 04/02/2024 10:30 AM EST Hem/Onc Treatment Hematology/Oncology Treatment, [place] [address] [place] [phone] 04/11/2024 2:00 PM EST Office Visit Urology Ashlie Louise [address] [place] [address] [place] [address] Manas Marie MD [address] [place] [address] 04/15/2024 9:30 AM EST Laboratory Laboratory, [facility] [address] [facility] [place] [phone] [facility] 132 [address] [facility] [place] [address] 04/16/2024 9:00 AM EST Office Visit Hematology/Oncology [facility] [address] [place] [phone] Nadine Bauman CRNP 400 [facility] [place] [address] 04/16/2024 9:30 AM EST Hem[facility]Onc [facility] [address] [place], [place] [phone] Nasreen, Chair 11 Hem Onc [facility] 200 [facility] [place] [address] 05/14/2024 9:00 AM EST Office Visit Hematology/Oncology [facility] [address] [place] [phone] Chandni Almonte MD [address] [place] [address] 07/19/2024 11:30 AM EDT Office Visit Cardiology, [facility] 132 [facility] [place] [address] Ciro Saini DO 132 [facility] [place] [address] 02/03/2025 1:00 PM EDT Office Visit Gynecology/Obstetrics [facility] 132 [facility] [place] [address] Backer, NelliSANDRA Jenkins [address] [place] [address] Scheduled Procedures Name Priority Associated Diagnoses Date/Ti [...] this encounter Medical Devices Implanted Type Area Tire Sorter Device Identifier Shelf Expiration Date Model / Serial / Lot Power Port 8fr Sngl Lumen Plas - [id number] Implanted:Qty : 1 on 01/05/2023 by Jai Malcolm Jr., MD at [facility] Right: Chest CR BARD : PERIPHERAL VASCULAR [id number] 07/08/2024 [id number] / / [id number] documented as of this encounter Visit Diagnoses [...] Power of Attor johann? No Care Teams Integration Assistant Relationship Specialty Start Date End Date Lina Can MD [address] [place] [address] [place] [phone] PCP - General Family Medicine 08/06/22 documented as of this encounter
--- OUTSIDE RECORDS SUMMARY | 2024-05-09 12:18 | External Medical Summary | Summary of Care ---
Author Name Unknown Organization [facility] Address [address] [place] [address] Phone [phone] Care Team Providers Care Visual Design Lead Name Role Phone Lina Can MD Primary Care Prov ider Encounter Details Date Type Department Care Team (Late st Contact Info) Description 04/02/2024 Orders Only Hematology/Oncology [facility] [place] 200 [facility] [place] [phone] Chandni Almonte MD 200 [facility] [place] [address] Allergies Active Allergy Reactions Criticality Noted Date [...] 3 mL/hr over 46 hours intravenously continuous. 43232 mg 03/19/2024 3:37 PM EST 03/14/20 025 [...] State [facility] [address] [place] [address] [phone] Chandni Almonte MD [address] [place] [address] [address] 04/02/2024 3:00 PM EST Pt Ed by Nurse Hematology/Oncology [facility] [address] [place] [address] [phone] Nasreen Nurse Hem Onc Jean [address] [place] [address] [address] 04/04/2024 1:00 PM EST Pharmacy Pharmacy Hematology Oncology [address] [phone] [facility] [place], [facility] Hem/Onc [address] [place] [address] 04/11/2024 2:00 PM EST Office Visit Urology Ashlie Louise [address] [place] 270 [place] [address] Manas Marie MD [address] [place] [address] 04/15/2024 9:30 AM EST Laboratory Laboratory, Health system 132 [facility] [place] [phone] [facility] 132 [facility] [place] [address] 04/16/2024 9:00 AM EST Office Visit Hematology/Oncology [facility] [place] [address] [place] [phone] Alisia Birmingham CRNP 400 [facility] [place] [id number] 04/16/2024 9:30 AM EST Hem[facility] [address] [place], [place] [address] Nasreen, Chair 11 Hem Onc [facility] 200 [facility] [place] [address] 05/14/2024 9:00 AM EST Office Visit Hematology/Oncology [facility] Nasreen [place] [address] [place] [address] Chandni Almonte MD [address] [place] [address] 07/19/2024 11:30 AM EDT Office Visit Cardiology, Health system 132 [facility] [place] [address] Ciro Saini DO [address] [place] [address] 02/03/2025 1:00 PM EDT Office Visit Gynecology/Obstetrics Jim Long [address] [place] [address] Nelli Farrell CRNP [address] [place] [address] Scheduled Procedures Name Priority Associated Diagnoses Date/Ti [...] this encounter Medical Devices Implanted Type Area Library Circulation Technician Device Identifier Shelf Expiration Date Model / Serial / Lot Power Port 8fr Sngl Lumen Plas - [id number] Implanted:Qty : 1 on 01/05/2023 by Jai Malcolm Jr., MD at [facility] Right: Chest CR BARD : PERIPHERAL VASCULAR [id number] 07/08/2024 [id number] / / [id number] documented as of this encounter Advance Directives [...] Power of Attor johann? No Care Teams Visual Design Lead Relationship Specialty Start Date End Date Lina Can MD [address] [place] [address] [place] [phone] PCP - General Family Medicine 08/06/22 documented as of this encounter
--- OUTSIDE RECORDS SUMMARY | 2024-05-09 12:18 | External Medical Summary | Summary of Care ---
Author Name Unknown Organization [facility] Address [address] [place] [address] Phone [phone] Care Team Providers Care Saw Straightener Name Role Phone Lina Can MD Primary Care Prov ider Reason for Visit * Reason Onset Date Comments Precert Not Needed 03/27/2024 Encounter Details Date Type Department Care Team (Late st Contact Info) Description 03/27/2024 Telephone Hematology/Oncology, [facility] 400 [place] [address] Chandni Almonte MD [address] [place] [address] Precert Not Needed Allergies Active Allergy Reactions Criticality Noted Date [...] and 1 Tablet before bedtime. 60 Tablet 02/26/20 24 Active Potassium Chloride ER 10 MEQ Oral Tablet Extended ReleaseIndicatio ns:Malignant neoplasm of sigmoid colon (HCC) Take 1 Tablet by mouth in the morning. 30 Tablet 1 03/11/20 24 Active Fluorouracil (5-Fu) 4,000 mg in NSS 138 mL infusionIndicati ons:Malignant neoplasm of sigmoid colon (HCC) Administer 4,000 mg at 3 mL/hr over 46 hours intravenously continuous. 07650 mg 03/19/2024 3:37 PM EST 03/14/20 24 [...] encounter Miscellaneous Notes * Telephone Encounter - Freida Nunez OSA - 03/27/2024 12:31 PM EST Images from the original note were not included. It looks like a prior auth for neulasta was denied in February for failure to try/fail formulary alternatives and bio-sim [employer] was authorized. Auth for nyve[employer]a is valid until 03/04. * Telephone Encounter - Nata Knutson CPhT - 03/27/2024 10:33 AM EST New or re-auth: re auth Patient Nyasia Hdez needs a prior authorization for a medication through their [facility] insurance. Medication: neulasta Formulation: 6mg/0.6ml inj Dosage: 1.2 ml per 28 days ID: [id number] BIN:[id number] PCN:nvtd Phone: Target ship date is 04/01. Thank you very much, Nata Knutson CPhT documented in this encounter Plan of Treatment Upcoming Encounters Date Type Department Care Team (Late st Contact Info) Description 04/01/2024 9:30 AM EST Laboratory Laboratory, [facility] 132 [facility] [place] [address] Terrance Long 132 [facility] [place] [address] 04/02/2024 10:30 AM EST Hem/Onc Treatment Hematology/Oncology [address] [phone] 04/11/2024 2:00 PM EST Office Visit Ashlie Shore [address] [place] 270 [place] [address] Manas Marie MD 27 [place] [address] 04/15/2024 9:30 AM EST Laboratory Laboratory, [facility] 132 [facility] [place] [address] Terrance Long 132 [facility] [place] [address] 04/16/2024 9:00 AM EST Office Visit Hematology/Oncology [address] [phone] Alisia Birmingham CRNP 400 [facility] [place] [address] 04/16/2024 9:30 AM EST Hem/Onc Treatment Hematology/Oncology Treatment, [address] [place] [address] Nasreen, Chair 11 Hem Onc [facility] 200 [facility] [place] [address] 05/14/2024 9:00 AM EST Office Visit Hematology/Oncology [facility] [place] [address] [place] [phone] Chandni Almonte MD 200 [facility] [place] [address] 07/19/2024 11:30 AM EDT Office Visit Cardiology, [facility] [address] [place] [address] Ciro Saini DO [address] [place] [address] 02/03/2025 1:00 PM EDT Office Visit Gynecology/Obstetrics [facility] [address] [place] [address] Nelli Farrell CRNP [address] [place] [address] Scheduled Procedures Name Priority Associated Diagnoses Date/Ti [...] this encounter Medical Devices Implanted Type Area Claim Specialist Device Identifier Shelf Expiration Date Model / Serial / Lot Power Port 8fr Sngl Lumen Plas - [id number] Implanted:Qty : 1 on 01/05/2023 by Jai Malcolm Jr., MD at [facility] Right: Chest CR BARD : PERIPHERAL VASCULAR [id number] 07/08/2024 [id number] / / [id number] documented as of this encounter Advance Directives [...] Power of Attor johann? No Care Teams Saw Straightener Relationship Specialty Start Date End Date Lina Can MD [address] [place] [address] [place] [address] PCP - General Family Medicine 08/06/22 documented as of this encounter
--- OUTSIDE RECORDS SUMMARY | 2024-05-09 12:18 | External Medical Summary | Summary of Care ---
Author Name Unknown Organization [facility] Address [address] [place] [address] Phone [phone] Care Team Providers Care Phone Banker Name Role Phone Lina Can MD Primary Care Prov ider Reason for Visit * Reason Onset Date Comments Advice 03/20/2024 Encounter Details Date Type Department Care Team (Late st Contact Info) Description 03/20/2024 Telephone Hematology/Oncology [facility] [place] 200 [facility] [place] [address] Alisia Birmingham CRNP 400 [place] [address] Advice Allergies Active Allergy Reactions Criticality Noted Date Comments Amoxicillin-Pot Clavulanate Nausea/vomiting 07/12/2022 GI upset Doxycycline Nausea/vomiting 07/12/2022 GI upset Oxaliplatin Flushing High 07/27/2023 Shortness of breath Metoclopramide Hives 08/10/2022 documented as of this encounter (statuses as of 03/22/2024) Medications Acetaminophen 500 MG Oral Tablet (Tylenol [...] 3 mL/hr over 46 hours intravenously continuous. 19605 mg 03/19/2024 3:37 PM EST 03/14/20 24 025 Active documented as of this encounter (statuses as of 03/22/2024) Active Problems Problem Noted Date Diagnosed Date [...] as of this encounter (statuses as of 03/22/2024) Immunizations No known immunizationsdocumented as of this [...] Upcoming Encounters Date Type Department Care Team (Lester Contact Info) Description 03/27/2024 10:45 AM EST Imaging Radiology, [place] [address] [place] [address] 04/01/2024 9:30 AM EST Laboratory Laboratory, [facility] [address] [place] [phone] Terrance Long 132 [facility] [place] [address] 04/02/2024 10:30 AM EST Hem/Onc Treatment Hematology/Oncology Treatment, [address], [place] [address] 04/11/2024 2:00 PM EST Office Visit UrologAshlie Dixon [address] [place] [address] [place] [address] Manas Marie MD 27 [place] [address] 04/15/2024 9:30 AM EST Laboratory Laboratory, [facility] 132 [facility] [place] [phone] Terrance Long 132 [facility] [place] [address] 04/16/2024 9:00 AM EST Office Visit Hematology/Oncology [address] [place] [phone] Alisia Birmingham CRNP 400 [facility] [place] [address] 04/16/2024 9:30 AM EST Hem/Onc Treatment Hematology/Oncology Treatment, [address], [place] [address] Nasreen, Chair 11 Hem Onc [address] [place] [address] 05/14/2024 9:00 AM EST Office Visit Hematology/Oncology Jean Downey [place] [address] [place], [place] [address] Chandni Almonte MD [address] [place] [address] 07/19/2024 11:30 AM EDT Office Visit Cardiology, [facility] [address] [place] [address] Ciro Saini DO [address] [place] [address] 02/03/2025 1:00 PM EDT Office Visit Gynecology/Obstetrics [facility] [address] [place] [address] Nelli Farrell CRNP [address] [place] [address] Scheduled Procedures Name Priority Associated Diagnoses Date/Ti [...] this encounter Medical Devices Implanted Type Area Cigar Tobacco Rehandler Device Identifier Shelf Expiration Date Model / Serial / Lot Power Port 8fr Sngl Lumen Plas - [id number] Implanted:Qty : 1 on 01/05/2023 by Jai Malcolm Jr., MD at [facility] Right: Chest CR BARD : PERIPHERAL VASCULAR [id number] 07/08/2024 [id number] / / [id number] documented as of this encounter Advance Directives [...] Power of Attor johann? No Care Teams Phone Banker Relationship Specialty Start Date End Date Lina Can MD [address] [place] [address] [place] [address] PCP - General Family Medicine 08/06/22 documented as of this encounter
--- OUTSIDE RECORDS SUMMARY | 2024-05-09 12:19 | External Medical Summary | Summary of Care ---
Author Name Unknown Organization [facility] Address [address] [place] [address] Phone [phone] Care Team Providers Care Groover Operator Name Role Phone Lina Can MD Primary Care Prov ider Reason for Visit * Reason Comments Chemotherapy Day 1, cycle 4 bevac izumab, irinotecan, leucovorin, 5FU * Episode Based Medications (Routine) - Authorized Specialty Diagnoses / Procedures Referred By Contac t Referred To Contact Diagnoses Encounter for antineoplastic chemotherapy Malignant neoplasm of sigmoid colon (HCC) Procedures CA LEUCOVORIN CALCIUM INJECTION CA PALONOSETRON HCL CA FLUOROURACIL INJECTION CA IRINOTECAN INJECTION CA INJ., ZIRABEV, 10 MG Chandni Almonte MD [address] [place] [address] [place] [address] Phone: tel: fax: Hematology/Oncology Treatment, [address] [address] Phone: tel: fax: Referral ID Status Reason Start Date Expiration Date V isits Requested Visits Authorized [id number] Authorized 11/22/2023 11/21/2024 [id number] Encounter Details Date Type Department Care Team (Latest Contact Info) Description 02/13/2024 9:00 AM EST Hem/Onc Treatment Hematology/Oncolog y Treatment, [address] [address] Nasreen Chair 5 Hem Onc Scenery [address] [place] [address] Encounter for antineoplastic chemotherapy*; Malignant neoplasm of sigmoid colon (HCC) Allergies Active Allergy Reactions Criticality Noted Date Comments Amoxicillin-Pot Clavulanate Nausea/vomiting 07/12/2022 GI upset Doxycycline Nausea/vomiting 07/12/2022 GI upset Oxaliplatin Flushing High 07/27/2023 Shortness of breath Metoclopramide Hives 08/10/2022 documented as of this encounter (statuses as of 03/19/2024) Medications Acetaminophen 500 MG Oral Tablet (Tylenol [...] for Nausea. 30 Tablet 1 4 Active Pegfilgrastim-cb qv 6 MG/0.6ML Subcutaneous Solution Prefilled Syringe (Udenyca)Indicat ions:Malignant neoplasm of sigmoid colon (HCC),Metastasis to bone (HCC),Chemothera py-induced neutropenia (HCC) Inject 6 mg (1 syringe) under the skin 24 hours after FOLFOX pump disconnect every 2 weeks. 1.2 mL 5 01/18/2024 12:25 PM EDT 4 Active Eliquis 5 MG Oral Tablet Take 1 Tablet by mouth in the morning and 1 Tablet before bedtime. 4 024 Discontin ued(Refil l) Metoprolol Succinate ER 25 MG Oral Tablet Extended Release 24 Hour (toPROL XL)Indications:N ew onset atrial fibrillation (HCC) Take 1 Tablet by mouth in the morning. 30 Tablet 5 4 024 Discontin ued(Refil l) documented as of this encounter (statuses as of 03/19/2024) Active Problems Problem Noted Date Diagnosed Date [...] as of this encounter (statuses as of 03/19/2024) Immunizations No known immunizationsdocumented as of this [...] Assessment Author No 11/25/2022 5:16 PM EDT Shae Ramirez RN * Are you blind or [...] Nursing Notes * Juliann Payne RN - 02/13/2024 1:18 PM EST Infusion complete. Patient tolerated well. Port remains accessed for home 5FU infusion. Dressing intact. + blood return. Home infusion started pump running. Goals: Patient will remain free from injury. Possible barriers to meeting goals: ambulating with IV pump Stability of the patient: Moderately stable - low risk of patient condition declining or worsening Summary regarding today's goals: Met: Patient remains free from harm/injury during treatment. Left facility in stable condition. * Juliann Payne RN - 02/13/2024 9:25 AM EST Chair 7, patient here for treatment following provider visit. Patient with no complaints. VAD accessed without difficulty, + blood return. flushed with 10 ml NSS and dressing applied. Chemotherapy/Immunotherapy agents: 5FU, IRINOTECAN, LEUCOVORIN, and ZIRABEV Consent for chemotherapy drug treatment complete, dated, and signed? yes, date - 11/22/23 Treatment lab parameters met? Yes Has treatment weight changed > than 10%? No Treatment preauthorized? Yes VITALS Filed Vitals: Urine protein: NEGATIVE Patient education completed for treatment? Yes Blood transfusion consent signed and complete? NA Return appointment scheduled? Yes Patient had provider visit today? Yes - Ok to release order and treat per provider Functional Status: Functional status at today's visit: Fully active, able to carry on all pre-disease performance without restriction The drug name, dose, infusion volume, rate [...] PM EST Immunization/Injec tion Hematology/Oncolog y Treatment, [address] [place] [address] [place], Chair 2 Hem Onc [address] [place] [address] 03/27/2024 10:45 AM EST Imaging Radiology, Ryan [address] [place] [address] 04/01/2024 9:30 AM EST Laboratory Laboratory, [address] [place] 132 [facility] [place] [phone] Terrance Long 132 [facility] [place] [address] 04/02/2024 10:30 AM EST Hem/Onc Treatment Hematology/Oncolog y Treatment, [place] 200 [facility], [place] [phone] 04/11/2024 2:00 PM EST Office Visit Urology Ashlie Louise [address] [place] [address] Manas Marie MD 27 [place] [address] 04/15/2024 9:30 AM EST Laboratory Laboratory, [facility] [phone] [facility] 132 [facility] [address] 04/16/2024 9:00 AM EST Office Visit Hematology/Oncolog y [facility] [address] [place], [place] [address] Alisia Birmingham CRNP 400 [facility] [place] [address] 04/16/2024 9:30 AM EST Hem/Onc Treatment Hematology/Oncolog y Treatment, [place] 200 [facility], [place] [phone] Nasreen, Chair 11 Hem Onc [facility] 200 [facility] [place] [address] 05/06/2024 9:15 AM EST Scheduled Telephone General Surgery Ashlie Louise [address] [place] [address] [place] [address] Ashlie, Nurse Gen Surg Rhonda Crespo, RN [address] [place] [address] 05/14/2024 9:00 AM EST Office Visit Hematology/Oncolog y [facility] [address] [place], [place] [phone] Chandni Almonte MD [address] [place] [address] 05/16/2024 7:30 AM EST Hospital Encounter OR [facility], Operating Room, [facility] - 4th Floor 400 [facility] [place] [phone] Timoteo Ayala, DO [address] [place] [address] 05/16/2024 7:30 AM EST - 05/16/2024 8:16 AM EST Surgery OR [facility], Operating Room, [facility] - 4th Floor [address] [place] [phone] Timoteo Ayala, DO [address] [place] [address] COLONOSCOPY FLEXIBLE PROXIMAL DIAGNOSTIC 07/19/2024 11:30 AM EDT Office Visit Cardiology, [facility] [address] [place] [address] Ciro Saini, DO [address] [place] [address] 02/03/2025 1:00 PM EDT Office Visit Gynecology/Obstetr [facility] [address] [place] [address] Nelli Farrell CRNP [address] [place] [address] Scheduled Procedures Name Priority Associated Diagnoses Date/Ti [...] this encounter Medical Devices Implanted Type Area Laborer [employer] Device Identifier Shelf Expiration Date Model / Serial / Lot Power Port 8fr Sngl Lumen Plas - [id number] Implanted:Qty : 1 on 01/05/2023 by Jai Malcolm Jr., MD at OR [facility] Right: Chest CR BARD : PERIPHERAL VASCULAR [id number] 07/08/2024 [id number] / / [id number] documented as of this encounter Visit Diagnoses Diagnosis Encounter for antineoplastic chemotherapy- Primary Malignant neoplasm of sigmoid colon (HCC) Malignant neoplasm of sigmoid colon Cancer of sigmoid colon (HCC) Malignant neoplasm of sigmoid colon documented in this encounter Administered Medications Inactive Administered Medications - up to 3 most recent administrations Medication Order MAR Action Action Date Dose Rate Site Atropine sulfate inj 0.4 mg 0.4 mg, IV Push, ONCE, On Mon02/13/24 at 1100, For 1 dose, Administer prior to irinotecan.Indications:Enc ounter for antineoplastic chemotherapy,Malignant neoplasm of sigmoid colon (HCC) Given 02/13/2024 10:59 AM EST 0.4 mg bevaCIZumab-bvzr (Zirabev) 300 mg in NSS 100 mL infusion 300 mg (rounded from 291.5 mg = 5 mg/kg 58.3 kg Treatment plan Recorded weight), IV Piggyback, ONCE, 1 dose, On Mon02/13/24 at 1015, Administer over 30 MinutesIndications:Encount er for antineoplastic chemotherapy,Malignant neoplasm of sigmoid colon (HCC) Start Infusion 02/13/2024 10:20 AM EST 300 mg 210 mL/hr dexAMETHasone (Decadron) tab 12 mg 12 mg, Oral, ONCE, On Mon02/13/24 at 0945, For 1 doseIndications:Encounter for antineoplastic chemotherapy,Malignant neoplasm of sigmoid colon (HCC) Given 02/13/2024 9:33 AM EST 12 mg Fluorouracil (5-Fu) 4,000 mg for Home Infusion 4,000 mg (rounded from 3,792 mg = 2,400 mg/m2 1.58 m2 Treatment Plan BSA from Recorded weight), Intravenous, Administer over 46 Hours, Home Infusion Pharmacy to specify base solution and volume., ONCE, 1 dose, On Mon02/13/24 at 1115Indications:Encounter for antineoplastic chemotherapy,Malignant neoplasm of sigmoid colon (HCC) Start Infusion 02/13/2024 12:45 PM EST 4,000 mg 3 mL/hr Fluorouracil (5-Fu) inj 650 mg 650 mg (rounded from 632 mg = 400 mg/m2 1.58 m2 Treatment Plan BSA from Recorded weight), IV Push, ONCE, 1 dose, On Mon02/13/24 at 1100Indications:Encounter for antineoplastic chemotherapy,Malignant neoplasm of sigmoid colon (HCC) Given 02/13/2024 12:40 PM EST 650 mg irinotecan HCl (Camptosar) 280 mg in D5W 500 mL infusion 280 mg (rounded from 284.4 mg = 180 mg/m2 1.58 m2 Treatment Plan BSA from Recorded weight), IV Piggyback, ONCE, 1 dose, On Mon02/13/24 at 1000, Administer over 90 Minutes, PROTECT FROM LIGHTIndications:Encounter for antineoplastic chemotherapy,Malignant neoplasm of sigmoid colon (HCC) Start Infusion 02/13/2024 11:03 AM EST 280 mg 349.33 mL/hr leucovorin calcium 650 mg in D5W 250 mL INFUSION 650 mg (rounded from 632 mg = 400 mg/m2 1.58 m2 Treatment Plan BSA from Recorded weight), IV Piggyback, ONCE, 1 dose, On Mon02/13/24 at 1000, Administer over 90 Minutes, Before 5-FUIndications:Encounter for antineoplastic chemotherapy,Malignant neoplasm of sigmoid colon (HCC) Start Infusion 02/13/2024 10:58 AM EST 650 mg 170 mL/hr NSS infusion Intravenous, at 50 mL/hr, PRN, Starting on Mon02/13/24 at 0830, Until Mon02/13/24 at 1944, Maintenance lineIndications:Encounter for antineoplastic chemotherapy,Malignant neoplasm of sigmoid colon (HCC) Start Infusion 02/13/2024 9:33 AM EST 50 mL/hr Palonosetron (Aloxi) inj SOLN 0.25 mg 0.25 mg, IV Push, ONCE, On Mon02/13/24 at 0945, For 1 dose, Restricted per [facility] antiemetic guidelinesIndications:Enco unter for antineoplastic chemotherapy,Malignant neoplasm of sigmoid colon (HCC) Given 02/13/2024 9:34 AM EST 0.25 mg sodium chloride 0.9 % flush central line 10 mL 10 mL, IV Push, PRN Other, IV Flush, Starting on Mon02/13/24 at 0924, Until Mon02/13/24 at 1944, For 24 hours, Do not flush if lock, PICC, or central line not in place; IV infusing or unable to flush.Indications:Encounte r for antineoplastic chemotherapy,Malignant neoplasm of sigmoid colon (HCC) Given 02/13/2024 12:40 PM EST 10 mL documented in this [...] Power of Attor johann? No Care Teams Groover Operator Relationship Specialty Start Date End Date Lina Can MD [address] [place] [address] [place] [id number] PCP - General Family Medicine 08/06/22 documented as of this encounter
--- OUTSIDE RECORDS SUMMARY | 2024-05-09 12:19 | External Medical Summary | Summary of Care ---
Author Name Unknown Organization [facility] Address [address] [place] [address] Phone [phone] Care Team Providers Care Tape Fastener Machine Operator Name Role Phone Lina Can MD Primary Care Prov ider Reason for Visit * Reason Onset Date Comments Surgery 03/14/2024 Encounter Details Date Type Department Care Team (Late st Contact Info) Description 03/14/2024 Telephone General Surgery Ashlie Louise [address] [place] [address] Timoteo Ayala, DO [address] [place] [address] Surgery Allergies Active Allergy Reactions [...] 3 mL/hr over 46 hours intravenously continuous. 22775 mg 03/19/2024 3:37 PM EST 03/14/20 24 [...] of Assessment Author No 11/25/2022 5:16 PM Steve Milton RN * Are you blind or do you have serious difficulty seeing, even when wearing glasses? Answer Date of Assessment Author No 11/25/2022 5:16 PM Steve Milton RN * Do you have serious difficulty walking or climbing stairs? (5 years old or older) Answer Date of Assessment Author No 11/25/2022 5:16 PM Steve Milton RN * Do you have difficulty dressing or bathing? (5 years old or older) Answer Date of Assessment Author No 11/25/2022 5:16 PM Steve Milton RN * Because of a physical, mental, or emotional condition, do you have difficulty doing errands alone such as visiting a doctors office or shopping? (15 years old or older) Answer Date of Assessment Author No 11/25/2022 5:16 PM Steve Milton RN documented as of this encounter Mental Status * Because of a physical, mental, or emotional condition, do you have serious difficulty concentrating, remembering, or making decisions? (5 years old or older) Answer Entry Date Author No 11/25/2022 5:16 PM Steve Milton RN documented in this encounter Miscellaneous [...] PM EST Immunization/Injec tion Hematology/Oncolog y Treatment, [address], [place] [phone] Park, Chair 2 Hem Onc [address] [address] 03/27/2024 10:45 AM EST Imaging Radiology, [place] [address] [place] [address] 04/01/2024 9:30 AM EST Laboratory Laboratory, [facility] [address] [place] [phone] Terrance Long 132 [facility] [place] [address] 04/02/2024 10:30 AM EST Hem/Onc Treatment Hematology/Oncolog y Treatment, [address] [address] 04/11/2024 2:00 PM EST Office Visit Urology Ashlie Louise [address] [place] [address] Manas Marie MD 27 [place] [address] 04/15/2024 9:30 AM EST Laboratory Laboratory, [facility] [address] [place] [phone] Terrance Long 132 [facility] [place] [address] 04/16/2024 9:00 AM EST Office Visit Hematology/Oncolog y Scenery [place] [address] [place] [address] Alisia Birmingham CRNP [address] [place] [address] 04/16/2024 9:30 AM EST Hem/Onc Treatment Hematology/Oncolog y Treatment [place] [address] [place] [address] Nasreen, Chair 11 Hem Onc Scenery [address] [place] [address] 05/06/2024 9:15 AM EST Scheduled Telephone General Surgery Ashlie Louise [address] [facility] [address] [place] [address] Ashlie, Nurse Gen Surg Rhonda Crespo RN [address] [facility] [address] [place] [address] 05/14/2024 9:00 AM EST Office Visit [facility] [place] [address] [place] [address] Chandni Almonte MD [address] [place] [address] 05/16/2024 7:30 AM EST Hospital Encounter OR [facility], Operating Room, [facility] - 4th Floor [address] [place] [phone] Timoteo Ayala, DO [address] [facility] [address] 05/16/2024 7:30 AM EST - 05/16/2024 8:16 AM EST Surgery OR [facility], Operating Room, [facility] - 4th Floor [address] [place] [phone] Timoteo Ayala, DO [address] [place] [address] COLONOSCOPY FLEXIBLE PROXIMAL DIAGNOSTIC 07/19/2024 11:30 AM EDT Office Visit Cardiology, [facility] [address] [facility] [place] [address] Ciro Saini, [address] [place] [address] 02/03/2025 1:00 PM EDT Office Visit Gynecology/Obstetr ics [facility] [address] [facility] [place] [address] Nelli Farrell CRNP [address] [place] [address] Scheduled Procedures Name Priority Associated Diagnoses Date/Ti [...] this encounter Medical Devices Implanted Type Area Water Plant Pump Operator Supervisor Device Identifier Shelf Expiration Date Model / Serial / Lot Power Port 8fr Sngl Lumen Plas - [id number] Implanted:Qty : 1 on 01/05/2023 by Jai Malcolm Jr., MD at [facility] Right: Chest CR BARD : PERIPHERAL VASCULAR [id number] 07/08/2024 [id number] / / [id number] documented as of this encounter Advance Directives [...] Power of Attor johann? No Care Teams Tape Fastener Machine Operator Relationship Specialty Start Date End Date Lina Can MD [address] [place] [address] [place] [address] PCP - General Family Medicine 08/06/22 documented as of this encounter
--- OUTSIDE RECORDS SUMMARY | 2024-05-09 12:19 | External Medical Summary | Summary of Care ---
Author Name Unknown Organization [facility] Address [address] [place] [address] Phone [phone] Care Team Providers Care Sales Advisory Manager Name Role Phone Lina Can MD Primary Care Prov ider Reason for Visit * Reason Comments Chemotherapy Day 1, cycle 4 bevac izumab, irinotecan, leucovorin, 5FU * Episode Based Medications (Routine) - Authorized Specialty Diagnoses / Procedures Referred By Contac t Referred To Contact Diagnoses Encounter for antineoplastic chemotherapy Malignant neoplasm of sigmoid colon (HCC) Procedures NM LEUCOVORIN CALCIUM INJECTION NM PALONOSETRON HCL NM FLUOROURACIL INJECTION NM IRINOTECAN INJECTION NM INJ., ZIRABEV, 10 MG Chandni Almonte MD [address] [place] [address] [place] [address] Phone: tel: fax: Hematology/Oncology Treatment, [address] [address] Phone: tel: fax: Referral ID Status Reason Start Date Expiration Date V isits Requested Visits Authorized [id number] Authorized 11/22/2023 11/21/2024 999 [id number] Encounter Details Date Type Department Care Team (Latest Contact Info) Description 02/13/2024 9:00 AM EST Hem/Onc Treatment Hematology/Oncolog y Treatment, [address] [address] Nasreen Chair 5 Hem Onc Scenery [address] [place] [address] Encounter for antineoplastic chemotherapy*; Malignant neoplasm of [...] PM EST Immunization/Injec tion Hematology/Oncolog y Treatment, [address] [place] [address] Park, Chair 2 Hem Onc [address] [place] [address] 03/27/2024 10:45 AM EST Imaging Radiology, [address] [place] [address] 04/01/2024 9:30 AM EST Laboratory Laboratory, [address] [place] 132 [facility] [place] [phone] Terrance Long 132 [facility] [place] [address] 04/02/2024 10:30 AM EST Hem/Onc Treatment Hematology/Oncolog y Treatment, [place] 200 [facility], [place] [phone] 04/11/2024 2:00 PM EST Office Visit Urology Ashlie Louise [address] [place] [address] Manas Marie MD 27 [place] [address] 04/15/2024 9:30 AM EST Laboratory Laboratory, [facility] 132 [facility] [phone] [facility] 132 [facility] [address] 04/16/2024 9:00 AM EST Office Visit Hematology/Oncolog y [facility] [address] [place], [place] [address] Alisia Birmingham CRNP 400 [facility] [place] [address] 04/16/2024 9:30 AM EST Hem/Onc Treatment Hematology/Oncolog y Treatment, [place] 200 [facility], [place] [phone] Nasreen, Chair 11 Hem Onc [facility] 200 [facility] [place] [address] 05/06/2024 9:15 AM EST Scheduled Telephone General Surgery Ashlie Louise [address] [place] [address] Ashlie, Nurse Gen Surg Rhonda Crespo, RN [address] [place] [address] 05/14/2024 9:00 AM EST Office Visit Hematology/Oncolog y [facility] [address] [place], [place] [phone] Chandni Almonte MD [address] [place] [address] 05/16/2024 7:30 AM EST Hospital Encounter OR [facility], Operating Room, [facility] - 4th Floor 400 [facility] [place] [phone] Timoteo Ayala, DO [address] [place] [address] 05/16/2024 7:30 AM EST - 05/16/2024 8:16 AM EST Surgery OR [facility], Operating Room, [facility] - 4th Floor [address] [place] [phone] Timoteo Ayala, DO [address] [place] [address] COLONOSCOPY FLEXIBLE PROXIMAL DIAGNOSTIC 07/19/2024 11:30 AM EDT Office Visit Cardiology, [facility] [address] [place] [address] Ciro Saini, DO [address] [place] [address] 02/03/2025 1:00 PM EDT Office Visit Gynecology/Obstetr [facility] [address] [place] [address] Nelli Farrell CRNP [address] [place] [address] Scheduled Procedures Name Priority Associated Diagnoses Date/Ti [...] this encounter Medical Devices Implanted Type Area Hog Cutter Device Identifier Shelf Expiration Date Model / Serial / Lot Power Port 8fr Sngl Lumen Plas - [id number] Implanted:Qty : 1 on 01/05/2023 by Jai Malcolm Jr., MD at OR [facility] Right: Chest CR BARD : PERIPHERAL VASCULAR [id number] 07/08/2024 [id number] / / [id number] documented as of this encounter Visit Diagnoses [...] at 0945, For 1 dose, Restricted per [facility] antiemetic guidelinesIndications:Enco unter for antineoplastic [...] Power of Attor johann? No Care Teams Sales Advisory Manager Relationship Specialty Start Date End Date Lina Can MD [address] [place] [address] [place] [address] PCP - General Family Medicine 08/06/22 documented as of this encounter
--- OUTSIDE RECORDS SUMMARY | 2024-05-09 12:19 | External Medical Summary | Summary of Care ---
Author Name Unknown Organization [facility] Address [address] [place] [address] Phone [phone] Care Team Providers Care Director Appointment Name Role Phone Lina Can MD Primary Care Prov ider Reason for Visit * Reason Comments Chemotherapy Day 1, cycle 4 bevac izumab, irinotecan, leucovorin, 5FU * Episode Based Medications (Routine) - Authorized Specialty Diagnoses / Procedures Referred By Contac t Referred To Contact Diagnoses Encounter for antineoplastic chemotherapy Malignant neoplasm of sigmoid colon (HCC) Procedures [place] LEUCOVORIN CALCIUM INJECTION WY PALONOSETRON HCL WY FLUOROURACIL INJECTION W[place] IRINOTECAN INJECTION WY INJ., ZIRABEV, 10 MG Chandni Almonte MD [address] [place] [address] [place] [address] Phone: tel: fax: Hematology/Oncology Treatment, [address] [address] Phone: tel: fax: Referral ID Status Reason Start Date Expiration Date V isits Requested Visits Authorized [id number] Authorized 11/22/2023 11/21/2024 999 [id number] Encounter Details Date Type Department Care Team (Latest Contact Info) Description 02/13/2024 9:00 AM EST Hem/Onc Treatment Hematology/Oncolog y Treatment, [address] [address] Nasreen Chair 5 Hem Onc Scenery [address] [place] [address] Encounter for antineoplastic chemotherapy*; Malignant neoplasm of [...] PM EST Immunization/Injec tion Hematology/Oncolog y Treatment, [address] [place] [address] Park, Chair 2 Hem Onc [address] [place] [address] 03/27/2024 10:45 AM EST Imaging Radiology, Ryan [address] [place] [address] 04/01/2024 9:30 AM EST Laboratory Laboratory, Jim Long [place] 132 [facility] [place] [phone] Terrance Long 132 [facility] [place] [address] 04/02/2024 10:30 AM EST Hem/Onc Treatment Hematology/Oncolog y Treatment, [place] 200 [facility], [place] [phone] 04/11/2024 2:00 PM EST Office Visit Urology Ashlie Louise [address] [place] [address] [place] [address] Manas Marie MD 27 [place] [address] 04/15/2024 9:30 AM EST Laboratory Laboratory, [facility] 132 [facility] [phone] [facility] 132 [facility] [address] 04/16/2024 9:00 AM EST Office Visit Hematology/Oncolog y [facility] [address] [place], [place] [address] Alisia Birmingham CRNP 400 [facility] [place] [address] 04/16/2024 9:30 AM EST Hem/Onc Treatment Hematology/Oncolog y Treatment, [place] 200 [facility], [place] [phone] Nasreen, Chair 11 Hem Onc [facility] 200 [facility] [place] [address] 05/06/2024 9:15 AM EST Scheduled Telephone General Surgery Ashlie Louise [address] [place] [address] Ashlie, Nurse Gen Surg Rhonda Crespo, RN [address] [place] [address] 05/14/2024 9:00 AM EST Office Visit Hematology/Oncolog y [facility] [address] [place], [place] [phone] Chandni Almonte MD [address] [place] [address] 05/16/2024 7:30 AM EST Hospital Encounter OR [facility], Operating Room, [facility] - 4th Floor 400 [facility] [place] [phone] Timoteo Ayala, DO [address] [place] [address] 05/16/2024 7:30 AM EST - 05/16/2024 8:16 AM EST Surgery OR [facility], Operating Room, [facility] - 4th Floor [address] [place] [phone] Timoteo Ayala, DO [address] [place] [address] COLONOSCOPY FLEXIBLE PROXIMAL DIAGNOSTIC 07/19/2024 11:30 AM EDT Office Visit Cardiology, [facility] [address] [place] [address] Ciro Saini, DO [address] [place] [address] 02/03/2025 1:00 PM EDT Office Visit Gynecology/Obstetr [facility] [address] [place] [address] Nelli Farrell CRNP [address] [place] [address] Scheduled Procedures Name Priority Associated Diagnoses Date/Ti [...] this encounter Medical Devices Implanted Type Area Belt Buckle Maker Device Identifier Shelf Expiration Date Model / Serial / Lot Power Port 8fr Sngl Lumen Plas - [id number] Implanted:Qty : 1 on 01/05/2023 by Jai Malcolm Jr., MD at OR [facility] Right: Chest CR BARD : PERIPHERAL VASCULAR [id number] 07/08/2024 [id number] / / [id number] documented as of this encounter Visit Diagnoses [...] at 0945, For 1 dose, Restricted per [facility] antiemetic guidelinesIndications:Enco unter for antineoplastic chemotherapy,Malignant neoplasm [...] of Attor johann? No Care Teams Director Appointment Relationship Specialty Start Date End Date Lina Can MD [address] [place] [address] [place] [phone] PCP - General Family Medicine 08/06/22 documented as of this encounter
--- OUTSIDE RECORDS SUMMARY | 2024-05-09 12:19 | External Medical Summary | Summary of Care ---
Author Name Unknown Organization [facility] Address [address] [place] [address] Phone [phone] Care Team Providers Care Hearing Aid Assistant Name Role Phone Lina Can MD Primary Care Prov ider Reason for Visit * Reason Comments Chemotherapy Day 1, cycle 4 bevac izumab, irinotecan, leucovorin, 5FU * Episode Based Medications (Routine) - Authorized Specialty Diagnoses / Procedures Referred By Contac t Referred To Contact Diagnoses Encounter for antineoplastic chemotherapy Malignant neoplasm of sigmoid colon (HCC) Procedures IN LEUCOVORIN CALCIUM INJECTION IN PALONOSETRON HCL IN FLUOROURACIL INJECTION IN IRINOTECAN INJECTION IN INJ., ZIRABEV, 10 MG Chandni Almonte MD [address] [place] [address] [place] [address] Phone: tel: fax: Hematology/Oncology Treatment, [address] [address] Phone: tel: fax: Referral ID Status Reason Start Date Expiration Date V isits Requested Visits Authorized [id number] Authorized 11/22/2023 11/21/[phone] Encounter Details Date Type Department Care Team (Latest Contact Info) Description 02/13/2024 9:00 AM EST Hem/Onc Treatment Hematology/Oncolog y Treatment, [address] [address] Nasreen Chair 5 Hem Onc Scenery [address] [place] [address] Encounter for antineoplastic chemotherapy*; Malignant neoplasm of [...] PM EST Immunization/Injec tion Hematology/Oncolog y Treatment, [address] [place] [address] Park, Chair 2 Hem Onc [address] [place] [address] 03/27/2024 10:45 AM EST Imaging Radiology, Ryan [address] [place] [address] 04/01/2024 9:30 AM EST Laboratory Laboratory, Jim Long [place] 132 [facility] [place] [phone] Terrance Long 132 [facility] [place] [address] 04/02/2024 10:30 AM EST Hem/Onc Treatment Hematology/Oncolog y Treatment, [place] 200 [facility], [place] [phone] 04/11/2024 2:00 PM EST Office Visit Urology Aslhie Louise [address] [place] [address] Manas Marie MD 27 [place] [address] 04/15/2024 9:30 AM EST Laboratory Laboratory, [facility] 132 [facility] [phone] [facility] 132 [facility] [address] 04/16/2024 9:00 AM EST Office Visit Hematology/Oncolog y [facility] [address] [place], [place] [address] Alisia Birmingham CRNP 400 [facility] [place] [address] 04/16/2024 9:30 AM EST Hem/Onc Treatment Hematology/Oncolog y Treatment, [place] 200 [facility], [place] [phone] Nasreen, Chair 11 Hem Onc [facility] 200 [facility] [place] [address] 05/06/2024 9:15 AM EST Scheduled Telephone General Surgery Ashlie Louise [address] [place] [address] [place] [address] Ashlie, Nurse Gen Surg Rhonda Crespo, RN [address] [place] [address] 05/14/2024 9:00 AM EST Office Visit Hematology/Oncolog y [facility] [address] [place], [place] [phone] Chandni Almonte MD [address] [place] [address] 05/16/2024 7:30 AM EST Hospital Encounter OR [facility], Operating Room, [facility] - 4th Floor 400 [facility] [place] [phone] Timoteo Ayala, DO [address] [place] [address] 05/16/2024 7:30 AM EST - 05/16/2024 8:16 AM EST Surgery OR [facility], Operating Room, [facility] - 4th Floor [address] [place] [phone] Timoteo Ayala, DO [address] [place] [address] COLONOSCOPY FLEXIBLE PROXIMAL DIAGNOSTIC 07/19/2024 11:30 AM EDT Office Visit Cardiology, [facility] [address] [place] [address] Ciro Saini, DO [address] [place] [address] 02/03/2025 1:00 PM EDT Office Visit Gynecology/Obstetr [facility] [address] [place] [address] Nelli Farrell CRNP [address] [place] [address] Scheduled Procedures Name Priority Associated Diagnoses Date/Ti [...] this encounter Medical Devices Implanted Type Area Kelp Gatherer Device Identifier Shelf Expiration Date Model / Serial / Lot Power Port 8fr Sngl Lumen Plas - [id number] Implanted:Qty : 1 on 01/05/2023 by Jai Malcolm Jr., MD at OR [facility] Right: Chest CR BARD : PERIPHERAL VASCULAR [id number] 07/08/2024 [id number] / / [id number] documented as of this encounter Visit Diagnoses [...] at 0945, For 1 dose, Restricted per [facility] antiemetic guidelinesIndications:Enco unter for antineoplastic [...] Power of Attor johann? No Care Teams Hearing Aid Assistant Relationship Specialty Start Date End Date Lina Can MD [address] [place] [address] [place] [phone] PCP - General Family Medicine 08/06/22 documented as of this encounter
--- OUTSIDE RECORDS SUMMARY | 2024-05-09 12:19 | External Medical Summary | Summary of Care ---
Author Name Unknown Organization [facility] Address [address] [place] [address] Phone [phone] Care Team Providers Care Airframe And Power Plant Mechanic Name Role Phone Lina Can MD Primary Care Prov ider Reason for Visit * Reason Comments Chemotherapy Day 1, cycle 4 bevac izumab, irinotecan, leucovorin, 5FU * Episode Based Medications (Routine) - Authorized Specialty Diagnoses / Procedures Referred By Contac t Referred To Contact Diagnoses Encounter for antineoplastic chemotherapy Malignant neoplasm of sigmoid colon (HCC) Procedures [place] LEUCOVORIN CALCIUM INJECTION FL PALONOSETRON HCL [place] FLUOROURACIL INJECTION FL IRINOTECAN INJECTION FL INJ., ZIRABEV, 10 MG Chandni Almonte MD [address] [place] [address] [place] [address] Phone: tel: fax: Hematology/Oncology Treatment, [address] [address] Phone: tel: fax: Referral ID Status Reason Start Date Expiration Date V isits Requested Visits Authorized [id number] Authorized 11/22/2023 11/21/2024 999 [id number] Encounter Details Date Type Department Care Team (Latest Contact Info) Description 02/13/2024 9:00 AM EST Hem/Onc Treatment Hematology/Oncolog y Treatment, [address] [address] Nasreen Chair 5 Hem Onc Scenery [address] [place] [address] Encounter for antineoplastic chemotherapy*; Malignant neoplasm of [...] PM EST Immunization/Injec tion Hematology/Oncolog y Treatment, [address] [place] [address] Park, Chair 2 Hem Onc [address] [place] [address] 03/27/2024 10:45 AM EST Imaging Radiology, Ryan [address] [place] [address] 04/01/2024 9:30 AM EST Laboratory Laboratory, Jim Long [place] 132 [facility] [place] [phone] Terrance Long 132 [facility] [place] [address] 04/02/2024 10:30 AM EST Hem/Onc Treatment Hematology/Oncolog y Treatment, [place] 200 [facility], [place] [phone] 04/11/2024 2:00 PM EST Office Visit Urology Ashlie Louise [address] [place] [address] Manas Marie MD 27 [place] [address] 04/15/2024 9:30 AM EST Laboratory Laboratory, [facility] 132 [facility] [phone] [facility] 132 [facility] [address] 04/16/2024 9:00 AM EST Office Visit Hematology/Oncolog y [facility] [address] [place], [place] [address] Alisia Birmingham CRNP 400 [facility] [place] [address] 04/16/2024 9:30 AM EST Hem/Onc Treatment Hematology/Oncolog y Treatment, [place] 200 [facility], [place] [phone] Nasreen, Chair 11 Hem Onc [facility] 200 [facility] [place] [address] 05/06/2024 9:15 AM EST Scheduled Telephone General Surgery Ashlie Louise [address] [address] [place] [address] Ashlie, Nurse Gen Surg Rhonda Crespo, RN [address] [place] [address] 05/14/2024 9:00 AM EST Office Visit Hematology/Oncolog y [facility] [address] [place], [place] [phone] hCandni Almonte MD [address] [place] [address] 05/16/2024 7:30 AM EST Hospital Encounter OR [facility], Operating Room, [facility] - 4th Floor 400 [facility] [place] [phone] Timoteo Ayala, DO [address] [place] [address] 05/16/2024 7:30 AM EST - 05/16/2024 8:16 AM EST Surgery OR [facility], Operating Room, [facility] - 4th Floor [address] [place] [phone] Timoteo Ayala, DO [address] [place] [address] COLONOSCOPY FLEXIBLE PROXIMAL DIAGNOSTIC 07/19/2024 11:30 AM EDT Office Visit Cardiology, [facility] [address] [place] [address] Ciro Saini, DO [address] [place] [address] 02/03/2025 1:00 PM EDT Office Visit Gynecology/Obstetr [facility] [address] [place] [address] Nelli Farrell CRNP [address] [place] [address] Scheduled Procedures Name Priority Associated Diagnoses Date/Ti [...] this encounter Medical Devices Implanted Type Area President And Chief Executive Officer Device Identifier Shelf Expiration Date Model / Serial / Lot Power Port 8fr Sngl Lumen Plas - [id number] Implanted:Qty : 1 on 01/05/2023 by Jai Malcolm Jr., MD at OR [facility] Right: Chest CR BARD : PERIPHERAL VASCULAR [id number] 07/08/2024 [id number] / / [id number] documented as of this encounter Visit Diagnoses [...] 0945, For 1 dose, Restricted per [facility] [...] Power of Attor johann? No Care Teams Airframe And Power Plant Mechanic Relationship Specialty Start Date End Date Lina Can MD [address] [place] [address] [place] [phone] PCP - General Family Medicine 08/06/22 documented as of this encounter
--- OUTSIDE RECORDS SUMMARY | 2024-05-09 12:19 | External Medical Summary | Summary of Care ---
Author Name Unknown Organization [facility] Address [address] [place] [address] Phone [phone] Care Team Providers Care Heating Engineer Name Role Phone Lina Can MD Primary Care Prov ider Encounter Details Date Type Department Care Team (Late st Contact Info) Description 03/20/2024 Orders Only Hematology/Oncology [facility] [place] 200 [facility] [place] [facility] [place] [place] [address] Alisia Birmingham CRNP 400 [place] [address] Allergies Active Allergy Reactions Criticality Noted [...] 3 mL/hr over 46 hours intravenously continuous. [address]1970 mg 03/19/2024 3:37 PM EST 03/14/20 24 [...] PM EST Immunization/Injec tion Hematology/Oncolog y Treatment, [place] [address] [place] [address] Park, Chair 2 Hem Onc Scenery [address] [facility] [address] 03/27/2024 10:45 AM EST Imaging Radiology, Ryan [address] [place] [address] 04/01/2024 9:30 AM EST Laboratory [facility], [facility] 132 [facility] [phone] LongTerrance alva [facility] 132 [facility] [address] 04/02/2024 10:30 AM EST Hem/Onc Treatment Hematology/Oncolog y Treatment, [place] 200 [facility], [place] [phone] 04/11/2024 2:00 PM EST Office Visit Urology Ashlie Louise [address] [place] [address] Manas Marie MD 27 [place] [address] 04/15/2024 9:30 AM EST Laboratory Laboratory, [facility] 132 [facility] [phone] [facility] 132 [facility] [address] 04/16/2024 9:00 AM EST Office Visit Hematology/Oncolog y [facility] 200 [facility] [place], [place] [address] Alisia Birmingham CRNP 400 [facility] [place] [address] 04/16/2024 9:30 AM EST Hem/Onc Treatment Hematology/Oncolog y [facility] 200 [facility], [place] [phone] Nasreen, Chair 11 Hem Onc [address] [place], [place] [address] 05/06/2024 9:15 AM EST Scheduled Telephone General Surgery Ashlie Louise [address] [place] [address] Ashlie, Nurse Gen Surg Rhonda Crespo, RN [address] [place] [address] 05/14/2024 9:00 AM EST Office Visit Hematology/Oncolog y [facility] 200 [facility] [address] Chandni Almonte MD [address] [facility] [place] [address] 05/16/2024 7:30 AM EST Hospital Encounter OR [facility], Operating Room, [facility] - 4th Floor 400 [place] [phone] Timoteo Ayala, DO [address] [place] [address] 05/16/2024 7:30 AM EST - 05/16/2024 8:16 AM EST Surgery OR [facility], Operating Room, [facility] - 4th Floor 400 [place] [phone] Timoteo Ayala, DO [address] [place] [address] COLONOSCOPY FLEXIBLE PROXIMAL DIAGNOSTIC 07/19/2024 11:30 AM EDT Office Visit Cardiology, [facility] [address] [place] [address] Ciro Saini, [address] [place] [address] 02/03/2025 1:00 PM EDT Office Visit Gynecology/Obstetr [facility] [address] [facility] [place] [address] Nelli Farrell CRNP [address] [place] [address] Scheduled Procedures Name Priority Associated Diagnoses Date/Ti [...] this encounter Medical Devices Implanted Type Area Barrel Raiser Device Identifier Shelf Expiration Date Model / Serial / Lot Power Port 8fr Sngl Lumen Plas - [id number] Implanted:Qty : 1 on 01/05/2023 by Jai Malcolm Jr., MD at [facility] Right: Chest CR BARD : PERIPHERAL VASCULAR [id number] 07/08/2024 [id number] / / [id number] documented as of this encounter Advance Directives [...] Power of Attor johann? No Care Teams Heating Engineer Relationship Specialty Start Date End Date Lina Can MD [address] [place] [address] [place] [phone] PCP - General Family Medicine 08/06/22 documented as of this encounter
--- OUTSIDE RECORDS SUMMARY | 2024-05-09 12:19 | External Medical Summary | Summary of Care ---
Author Name Unknown Organization [facility] Address [address] [place] [address] Phone [phone] Care Team Providers Care Clinical Science Consultant Name Role Phone Lina Can MD Primary Care Prov ider Reason for Visit * Reason Onset Date Comments Advice 03/20/2024 Encounter Details Date Type Department Care Team (Late st Contact Info) Description 03/20/2024 Telephone Hematology/Oncology [facility] [place] 200 [facility] [place] [address] Alisia Birmingham CRNP 400 [place] [address] Advice Allergies Active Allergy Reactions [...] 3 mL/hr over 46 hours intravenously continuous. 27767 mg 03/19/2024 3:37 PM EST 03/14/20 24 [...] PM EST Immunization/Injec tion Hematology/Oncolog y Treatment, [place] 200 [facility] [address] [place] [address] Park, Chair 2 Hem Onc [facility] 200 [facility] [address] 03/27/2024 10:45 AM EST Imaging Radiology, Ryan [address] [place] [address] 04/01/2024 9:30 AM EST Laboratory Laboratory, [facility] 132 [facility] [place] [phone] Terrance Long 132 [facility] [place] [address] 04/02/2024 10:30 AM EST Hem/Onc Treatment Hematology/Oncolog y [facility] 200 [facility] [phone] 04/11/2024 2:00 PM EST Office Visit Ashlie Shore [address] [place] [address] Manas Marie MD 27 [place] [address] 04/15/2024 9:30 AM EST Laboratory Laboratory, [facility] 132 [facility] [place] [phone] Terrance Long 132 [facility] [place] [address] 04/16/2024 9:00 AM EST Office Visit Hematology/Oncolog y [facility] [place] 200 [facility] [place] [address] Alisia Birmingham CRNP 400 [facility] [place] [address] 04/16/2024 9:30 AM EST Hem/Onc Treatment Hematology/Oncolog y [facility] [place] 200 [facility] [place]a [place] [phone] Nasreen, Chair 11 Hem Onc Scen[address] 200 [facility] [place] [address] 05/06/2024 9:15 AM EST Scheduled Telephone General Surgery Ashlie Louise [address] [place] [address] Ashlie, Nurse Gen Surg Rhonda Crespo, RN [address] [place] [address] 05/14/2024 9:00 AM EST Office Visit Hematology/Oncolog y [facility] Downey [place] [address] [place] [phone] Chandin Almonte MD [address] [place] [address] 05/16/2024 7:30 AM EST Hospital Encounter OR [facility], Operating Room, [facility] - 4th Floor 400 [facility] [place] [address] Timoteo Ayala, DO [address] [place] [address] 05/16/2024 7:30 AM EST - 05/16/2024 8:16 AM EST Surgery OR [facility], Operating Room, [facility] - 4th Floor [address] [place] [phone] Timoteo Ayala, DO [address] [place] [address] COLONOSCOPY FLEXIBLE PROXIMAL DIAGNOSTIC 07/19/2024 11:30 AM EDT Office Visit Cardiology, [facility] 132 [facility] [place] [address] Ciro Saini, DO 132 [facility] [place] [address] 02/03/2025 1:00 PM EDT Office Visit Gynecology/Obstetr ics [facility] [address] [place] [address] Backer, Nelli Sharpnett, SANDRA [address] [place] [address] Scheduled Procedures Name Priority Associated Diagnoses Date/Ti [...] this encounter Medical Devices Implanted Type Area Second Shift Supervisor Device Identifier Shelf Expiration Date Model / Serial / Lot Power Port 8fr Sngl Lumen Plas - [id number] Implanted:Qty : 1 on 01/05/2023 by Jai Malcolm Jr., MD at OR [facility] Right: Chest CR BARD : PERIPHERAL VASCULAR [id number] 07/08/2024 [id number] / / [id number] documented as of this encounter Advance Directives [...] Power of Attor johann? No Care Teams Clinical Science Consultant Relationship Specialty Start Date End Date Lina Can MD [address] [place] [address] [place] [address] PCP - General Family Medicine 08/06/22 documented as of this encounter
--- OUTSIDE RECORDS SUMMARY | 2024-05-09 12:19 | External Medical Summary | Summary of Care ---
Author Name Unknown Organization [facility] Address [address] [place] [address] Phone [phone] Care Team Providers Care Sales Operations Analyst Name Role Phone Lina Can MD Primary Care Prov ider Reason for Referral * Precert (Within 24 hrs (call dept; emergent)) - Authorized Specialty Diagnoses / Procedures Referred By Contac t Referred To Contact Radiology Diagnoses Malignant neoplasm of sigmoid colon (HCC) Metastasis to bone (HCC) Procedures PET CT SKULL BASE TO MID-THIGH FDG Alisia Birmingham CRNP [address] [place] [address] Phone: tel: fax: Referral ID Status Reason Start Date Expiration Date V isits Requested Visits Authorized [id number] Authorized 03/26/2024 [id number] 999 Reason for Visit * Reason Comments Chemotherapy Chemo/recheck Encounter Details Date Type Department Care Team (Late st Contact Info) Description 03/19/2024 12:00 PM EST Office Visit Hematology/Oncology Jean Downey [place] [address] [place] [phone] Alisia Birmingham CRNP [address] [place] [address] Malignant neoplasm of sigmoid colon (HCC)*; Metastasis to bone (HCC); Prevention of chemotherapy-induced neutropenia; Cancer related pain; Urothelial carcinoma of bladder (HCC) Allergies Active Allergy Reactions Criticality Noted [...] 1.2 mL 02/27/2024 11:31 AM EST 02/22/20 Active Nyvepria 6 MG/0.6ML Subcutaneous Solution Prefilled Syringe (Pegfilgrastim-a pgf)Indications: Malignant neoplasm of sigmoid colon (HCC),Prevention of chemotherapy-ind uced neutropenia Administer 6mg subq 24 hours after chemo pump disconnect 1.2 mL 02/23/20 Active Eliquis 5 MG Oral Tablet Take 1 Tablet by mouth in the morning and 1 Tablet before bedtime. 60 Tablet 02/26/20 Active Potassium Chloride ER 10 MEQ Oral Tablet Extended ReleaseIndicatio ns:Malignant neoplasm of sigmoid colon (HCC) Take 1 Tablet by mouth in the morning. 30 Tablet 1 03/11/20 Active Fluorouracil (5-Fu) 4,000 mg in NSS 138 mL infusionIndicati ons:Malignant neoplasm of sigmoid colon (HCC) Administer 4,000 mg at 3 mL/hr over 46 hours intravenously continuous. 06302 mg 03/19/2024 3:37 PM EST 03/14/20 24 [...] Sign Reading Time Taken Comments Blood Pressure 138/79 03/19/2024 12:01 PM EST Pulse 97 03/19/2024 12:01 PM EST Temperature 36.5 C (97.7 F) 03/19/2024 1 2:01 PM EST Respiratory Rate - - Oxygen Saturation 95% 03/19/2024 12: 01 PM EST Inhaled Oxygen Concentration - - Weight 54.3 kg (119 lb 11.2 oz) 024 12:01 PM EST Height - - Body Mass Index 22.62 11/15/2023 10:01 AM EDT documented in this [...] in this encounter Progress Notes * Alisia Birmingham CRNP - 03/19/2024 12:00 PM EST Hematology/Oncology Outpatient Clinic note [facility] [place] [facility] [place] [address] Name: Nyasia Hdez Date: 03/19/2024 CHIEF COMPLAINT: Nyasia Hdez is a 69 year old female patient of Dr. Tariq Suzy here today for f/u visit today. From Patient chart confirmed with patient. HEMATOLOGY/ONCOLOGY DIAGNOSIS: Cancer of sigmoid colon - [id number] -now has developed metastatic disease Low-grade papillary urothelial carcinoma, noninvasive - under observation Cancer Staging Malignant neoplasm of sigmoid colon (HCC) Staging form: Colon And Rectum, AJCC 8th Edition - Clinical stage from 11/25/2022: cT4b - Signed by Vinay Rice MD on 12/06/2022 DATE OF DIAGNOSIS: 10/21/22 TREATMENT HISTORY: On 11/25/2022 patient underwent Robotic-assisted, laparoscopic low anterior resection with coloproctostomy and ALEXA w BSO TURBT 11/25/22 She was treated with the adjuvant chemotherapy and received total of 10 cycles of FOLFOX. She had allergic reaction so the chemo was changed to FOLFIRI for last 2 cycles. She received last chemo on 07/25/2023. Status post radiation therapy to the metastatic sites including right scapula, lumbar spine and left pain femur. Completed radiation therapy on 12/01/2023. CURRENT TREATMENT: On palliative chemotherapy FOLFIRI plus Avastin q 14 days (12/18/23 - ) - Patient will self administer udenyca at home D4 ONCOLOGY HISTORY: 67-year-old female with history of breast cancer was [...] invasion of the mass into her uterus. [employer] onc was consulted intraoperatively and a ALEXA [...] nodes positive for carcinoma (5/15). - Stage: G2gH8mFk. D. Urinary bladder, biopsy: - Low-grade papillary [...] Small vessel Perineural Invasion Not identified Tumor [place] Score Intermediate (5-9) Type of Polyp in [...] probability of MSI-H) mmunotherapy Markers Tumor Mutational [place] (TMB): TMB Unit [place] 5.67 m/MB Low Microsatellite Instability Status (MSI): MSI Status 0 Stable Result Detail DNA Variants (SNV and indels): Gene Variant Tier Amino Acid Change Nucleotide Change Consequence Allele Frequency Sequencing Depth KRAS G12V Tier 1: Strong significance p.Xbx79Wgz NM_[id number]: c.35G>T Missense Variant 28.1 % 1995 CDKN1B H401Ole*15 Tier 2: Potential significance p.[id number] NM_004064.5: c.326_327insT Frameshift Variant 29.5 % 98 TP53 K132R Tier 2: Potential significance p.Eud047Fnu NM_000546.6: c.395A>G Missense Variant 25.4 % 1991 [...] 5 aunt were diagnosed of breast cancer. Two cousins with breast cancer. Two cousins was diagnosed of ovarian cancer. All on maternal side. Interval History: She had a PET scan done on [...] cGy on each side in 5 fraction. Now she is on salvage chemotherapy including combination of FOLFIRI plus Avastin. HISTORY OF PRESENT ILLNESS: Nyasia Hdez is a 69 year old female with a history as outlined above. Currently here for f/u visit today and consideration for C6D1 of treatment. Complaining of pain in the right side of her neck for the last three days. Feels like a muscle pain. Has been applying heat with some relief. Deniesnausea. Denies dizziness. Does have intermittent pain in her LLE when she overdoes it such as shopping for hours that does resolve with Tramadol. Appetite is up and down. Has difficulty sleeping whenshe gets her steroids with treatment, can only sleep for a couple hours that night. Denies mouth sores or pain. Had diarrhea for one weekend after treatment that does resolve with imodium. CIPN is stable in fingers and toes. Denies feeling at risk for falls. Denies rashes or skin changes. Taking Claritin with Udenyca. Past Medical History: Diagnosis Date Breast cancer (HCC) 1991 right mastectomy Cancer, metastatic to bone (HCC) Colon cancer (HCC) New onset atrial fibrillation (HCC) 11/02/2023 Past Surgical History: Procedure Laterality Date COLONOSCOPY, DIAGNOSTIC (RECTUM) N/A 10/06/2022 COLONOSCOPY FLEXIBLE PROXIMAL DIAGNOSTIC performed by Timoteo Ayala DO at ENDOSCOPY [facility] COLONOSCOPY, DIAGNOSTIC (RECTUM) 10/21/2022 A fungating partially obstructing large mass was found in the sigmoid colon, performed by Glo Garcia DO at ENDOSCOPY [facility] CYSTOSCOPY/INSERTION OF STENT Bilateral 11/25/2022 CYSTOURETHROSCOPY WITH INSERTION URETERAL STENT DUAL SERVICE performed by Kishan Leblanc MD at OR [facility] CYSTOSCOPY/TREAT SML BLADDER TUMOR N/A 11/25/2022 ADULT CYSTOURETHROSCOPY WITH FULGURATION SMALL BLADDER TUMOR performed by Kishan Leblanc MD at OR [facility] INSER TUNN ACC DEV;5 YRS/OLDER Right 01/05/2023 INSERT TUNNELED CENTRAL VENOUS ACCESS WITH SUBQ PORT performed by Jai Malcolm Jr., MD at OR [facility] IR BIOPSY 11/15/2023 LAPAROSCOPIC PARTIAL COLECTOMY W/COLOPROCTOSTOMY N/A 11/25/2022 ROBOTIC LAPAROSCOPIC PARTIAL COLECTOMY WITH COLOPROCTOSTOMY performed by Timoteo Ayala DO [facility] LAPAROSCOPY TOTAL HYSTX, UTERUS 250GM OR LESS 11/25/2022 ROBOTIC LAPAROSCOPIC HYSTERECTOMY FOR UTERUS 250GM OR LESS performed by Vinay Rice MD at OR [facility] MASTECTOMY, SIMPLE, COMPLETE Right 1992 [place] HEPATOBILIARY SYSTEM 09/15/2022 Normal hepatobiliary scintigraphy with patent cystic and common bile ducts. normal GB fraction at 84% Social History Socioeconomic History Marital status: Spouse [...] on file Housing Stability: Not on file Review of patient's allergies indicates: Allergen Reactions Oxaliplatin Flushing Shortness of breath Augmentin [Amoxicillin-Pot Clavulanate] Nausea/vomiting GI upset Doxycycline Nausea/vomiting GI upset Reglan [Metoclopramide] Hives Current Outpatient Medications Medication Sig Dispense Refill [...] 3 mL/hr over 46 hours intravenously continuous. 36045 mg 0 No current facility-administered medications for this visit. Facility-Administered Medications Ordered in Other Visits Medication Dose Route Frequency Provider Last Rate Last Admin Fluorouracil (5-Fu) 4,000 mg for Home Infusion 2,400 mg/m2 (Treatment Plan Recorded) Intravenous Once Chandni Almonte MD REVIEW OF SYSTEMS: See HPI - otherwise negative OBJECTIVE: Filed Vitals: 03/19/24 1201 BP: 138/79 Pulse: 97 Temp: 36.5 C (97.7 F) TempSrc: Tympanic SpO2: 95% Weight: 54.3 kg (119 lb 11.2 oz) Wt Readings from Last 5 Encounters: 03/19/24 54.3 kg (119 lb 11.2 oz) 02/27/24 54.5 kg (120 lb 3.2 oz) 02/13/24 53.6 kg (118 lb 1.6 oz) 01/30/24 53.8 kg (118 lb 9.6 oz) 01/22/24 54.4 kg (120 lb) PHYSICAL EXAM: ECOG: Performance Status 1 = 80-90% Symptoms but nearly ambulatory General Appearance: No acute distress HEENT: Normal - No oral or pharyngeal masses, ulceration or thrush noted Lymph Nodes: Normal - No palpable lymph nodes in the neck or supraclavicular areas Lungs/Thorax: Normal - Clear to auscultation Heart: Normal - Regular rate and rhythm, normal S1, S2, no appreciable murmurs Pulses/Extremities: Normal - 2+ throughout and symmetrical, no edema Abdomen: Normal - Soft, nontender, bowel sounds present, no appreciable hepatosplenomegaly, no palpable masses Neurologic: Normal - Grossly intact LABS: Results for orders placed or performed in [...] Negative Ketone, Urine Negative Negative mg/dL Specific [place], Urine 1.010 1.003 - 1.030 Blood, Urine [...] Bacteria, Urine 0-25 0 - 25 /HPF IMPRESSION/PLAN: Cancer of sigmoid colon - [id number] Bone metastasis Prevention of chemotherapy induced neutropenia Cancer related pain Lab results reviewed: unremarkable -potassium has normalized. Ok to discontinue potassium supplement for now. Discussed dietary sources of potassium. Ok for C6D1 of palliative FOLFIRI plus Avastin today as scheduled. Tolerating treatment plan reasonably well with no signs or symptoms of significant toxicity noted. Has difficulty tolerating pre-treat dexamethasone. Ok to administer 6 mg today. If no issues ok to continue with 6 mg or discontinue with future treatment cycles. Patient will self administer udenyca at home D4 for prevention of chemotherapy induced neutropenia Cancer related pain well controlled on Tramadol 50 mg q6h PRN No elevated CEA preoperatively Will plan for restaging scans s/p C6 - order placed for PET/CT to be completed next week Low-grade papillary urothelial carcinoma, noninvasive - under observation Following with Urology Plan for routine office cystoscopy in April RTC in 4 weeks with provider for chemo return RTC in 8 weeks with physician for chemo return SANDRA Limon documented in this encounter Nursing Notes * Yanelis Orozco CMA - 03/19/2024 12:01 PM EST Patient identifed by name and birthdate Do you have any concerns about pain management for today's visit? Yes. Patient instructed to discuss pain concerns with provider during the visit today Living Will or Advance Directive for Health Care as noted on the problem list. [facility] is a way you can talk to your provider on line through e-mail. Would you like to sign up? I can activate it for you? ALREADY ACTIVE Filed Vitals: 03/19/24 1201 BP: 138/79 Pulse: 97 Temp: 36.5 C (97.7 F) TempSrc: Tympanic SpO2: 95% Weight: 54.3 kg (119 lb 11.2 oz) Patient was instructed to not get [...] PM EST Immunization/Injec tion Hematology/Oncolog y Treatment, [place] [address] [place] [phone] Park, Chair 2 Hem Onc Scenery [facility] [address] 03/27/2024 10:45 AM EST Imaging Radiology, [address] [place] [id number] 04/01/2024 9:30 AM EST Laboratory Laboratory, [facility] 132 [facility] [place] [address] Terrance Long 132 [facility] [place] [address] 04/02/2024 10:30 AM EST [facility] 200 [facility], [place] [phone] 04/11/2024 2:00 PM EST Office Visit Urology Ashlie Louise [address] [place] [address] Manas Marie MD [address] [place] [address] 04/15/2024 9:30 AM EST Laboratory Laboratory, [facility] 132 [facility] [phone] Terrance Long [facility] 132 [facility] [address] 04/16/2024 9:00 AM EST Office Visit Hematology/Oncolog y [address] [place], [place] [phone] Alisia Birmingham, SANDRA 400 [facility] [place] [address] 04/16/2024 9:30 AM EST Hem/Onc Treatment Hematology/Oncolog y Treatment, [address], [place] [phone] Nasreen, Chair 11 Hem Onc [address] [place], [place] [address] 05/06/2024 9:15 AM EST Scheduled Telephone General Surgery Ashlie Louise [address] [place] [address] Ashlie, Nurse Gen Surg Rhonda Crespo RN [address] [place] [address] 05/14/2024 9:00 AM EST Office Visit Hematology/Oncolog y [facility] [address] [place] [address] Chandni Almonte MD [address] [place] [address] 05/16/2024 7:30 AM EST Hospital Encounter OR [facility], Operating Room, [facility] - 4th Floor [address] [place] [address] Timoteo Ayala, DO [address] [place] [address] 05/16/2024 7:30 AM EST - 05/16/2024 8:16 AM EST Surgery OR [facility], Operating Room, [facility] - 4th Floor [address] [place] [phone] Timoteo Ayala, DO [address] [place] [address] COLONOSCOPY FLEXIBLE PROXIMAL DIAGNOSTIC 07/19/2024 11:30 AM EDT Office Visit Cardiology, [facility] [address] [facility] [place] [address] Ciro Saini, DO [address] [place] [address] 02/03/2025 1:00 PM EDT Office Visit Gynecology/Obstetr ics [facility] [address] [facility] [place] [address] Nelli Farrell CRNP [address] [place] [address] Scheduled Orders Name Type Priority Associated Diagnoses Orde r Schedule PET CT SKULL BASE TO MID-THIGH FDG Medical Imaging STAT Malignant neoplasm of sigmoid colon (HCC) Metastasis to bone (HCC) Expected: 03/26/2024 (Approximate), Expires: 06/17/2024 Scheduled Procedures Name Priority Associated Diagnoses Date/Ti [...] this encounter Medical Devices Implanted Type Area Food Photographer Device Identifier Shelf Expiration Date Model / Serial / Lot Power Port 8fr Sngl Lumen Plas - [id number] Implanted:Qty : 1 on 01/05/2023 by Jai Malcolm Jr., MD at [facility] Right: Chest CR BARD : PERIPHERAL VASCULAR [id number] 07/08/2024 [id number] / / [id number] documented as of this encounter Visit Diagnoses Diagnosis Malignant neoplasm of sigmoid colon (HCC)- Primary Malignant neoplasm of sigmoid colon Metastasis to bone (HCC) Secondary malignant neoplasm of bone and bone marrow Prevention of chemotherapy-induced neutropenia Cancer related pain Neoplasm related pain (acute) (chronic) Urothelial carcinoma of bladder (HCC) Cancer of sigmoid colon (HCC) Malignant neoplasm [...] of Attor johann? No Care Teams Sales Operations Analyst Relationship Specialty Start Date End Date Lina Can MD [address] [place] [address] [place] [address] PCP - General Family Medicine 08/06/22 documented as of this encounter
--- OUTSIDE RECORDS SUMMARY | 2024-05-09 12:19 | External Medical Summary | Summary of Care ---
Author Name Unknown Organization [facility] Address [address] [place] [address] Phone [phone] Care Team Providers Care Senior Counsel Commercial Name Role Phone Lina Can MD Primary Care Prov ider Reason for Visit * Reason Comments Chemotherapy Day 1, cycle 4 bevac izumab, irinotecan, leucovorin, 5FU * Episode Based Medications (Routine) - Authorized Specialty Diagnoses / Procedures Referred By Contac t Referred To Contact Diagnoses Encounter for antineoplastic chemotherapy Malignant neoplasm of sigmoid colon (HCC) Procedures VT LEUCOVORIN CALCIUM INJECTION VT PALONOSETRON HCL VT FLUOROURACIL INJECTION VT IRINOTECAN INJECTION VT INJ., ZIRABEV, 10 MG Chandni Almonte MD [address] [place] [address] [place] [address] Phone: tel: fax: Hematology/Oncology Treatment, [address] [address] Phone: tel: fax: Referral ID Status Reason Start Date Expiration Date V isits Requested Visits Authorized [id number] Authorized 11/22/2023 11/21/2024 999 999 Encounter Details Date Type Department Care Team (Latest Contact Info) Description 02/13/2024 9:00 AM EST Hem/Onc Treatment Hematology/Oncolog y Treatment, [address] [phone] Nasreen Chair 5 Hem Onc Scenery [address] [place] [address] Encounter for antineoplastic chemotherapy*; Malignant neoplasm of [...] PM EST Immunization/Injec tion Hematology/Oncolog y Treatment, [address] [place] [address] Park, Chair 2 Hem Onc [address] [place] [address] 03/27/2024 10:45 AM EST Imaging Radiology, [place] [address] [place] [address] 04/01/2024 9:30 AM EST Laboratory Laboratory, Jim Long [place] 132 [facility] [place] [phone] Terrance Long 132 [facility] [place] [address] 04/02/2024 10:30 AM EST Hem/Onc Treatment Hematology/Oncolog y Treatment, [place] 200 [facility], [place] [phone] 04/11/2024 2:00 PM EST Office Visit Urology Ashlie Louise [address] [place] [address] Manas Marie MD [address] [place] [address] 04/15/2024 9:30 AM EST Laboratory Laboratory, [facility] [phone] [facility] [address] 04/16/2024 9:00 AM EST Office Visit [facility] [address] [place], [place] [address] Alisia Birmingham CRNP 400 [facility] [place] [address] 04/16/2024 9:30 AM EST Hem/Onc Treatment Hematology/Oncolog y Treatment, [place] 200 [facility], [place] [phone] Nasreen, Chair 11 Hem Onc [facility] 200 [facility] [place] [address] 05/06/2024 9:15 AM EST Scheduled Telephone General Surgery Ashlie Louise [address] [place] [address] Ashlie, Nurse Gen Surg Rhonda Crespo, RN [address] [place] [address] 05/14/2024 9:00 AM EST Office Visit Hematology/Oncolog [facility] [address] [place], [place] [phone] Chandni Almonte MD [address] [place] [address] 05/16/2024 7:30 AM EST Hospital Encounter OR [facility], Operating Room, [facility] - 4th Floor 400 [facility] [place] [phone] Timoteo Ayala, DO [address] [place] [address] 05/16/2024 7:30 AM EST - 05/16/2024 8:16 AM EST Surgery OR [facility], Operating Room, [facility] - 4th Floor [address] [place] [phone] Timoteo Ayala, DO [address] [place] [address] COLONOSCOPY FLEXIBLE PROXIMAL DIAGNOSTIC 07/19/2024 11:30 AM EDT Office Visit Cardiology, [facility] [address] [place] [address] Ciro Saini, DO [address] [place] [address] 02/03/2025 1:00 PM EDT Office Visit Gynecology/Obstetr [facility] [address] [place] [address] Nelli Farrell CRNP [address] [place] [address] Scheduled Procedures Name Priority Associated Diagnoses Date/Ti [...] this encounter Medical Devices Implanted Type Area Machine Cloth Trimmer Device Identifier Shelf Expiration Date Model / Serial / Lot Power Port 8fr Sngl Lumen Plas - [id number] Implanted:Qty : 1 on 01/05/2023 by Jai Malcolm Jr., MD at OR [facility] Right: Chest CR BARD : PERIPHERAL VASCULAR [id number] 07/08/2024 [id number] / / [id number] documented as of this encounter Visit Diagnoses [...] at 0945, For 1 dose, Restricted per [facility] antiemetic guidelinesIndications:Enco unter for antineoplastic [...] Power of Attor johann? No Care Teams Senior Counsel Commercial Relationship Specialty Start Date End Date Lina Can MD [address] [place] [address] [place] [address] PCP - General Family Medicine 08/06/22 documented as of this encounter
--- OUTSIDE RECORDS SUMMARY | 2024-05-09 12:19 | External Medical Summary | Summary of Care ---
Author Name Unknown Organization [facility] Address [address] [place] [address] Phone [phone] Care Team Providers Care Rn Telehealth Name Role Phone Lina Can MD Primary Care Prov ider Reason for Visit * Reason Comments Chemotherapy Day 1, cycle 4 bevac izumab, irinotecan, leucovorin, 5FU * Episode Based Medications (Routine) - Authorized Specialty Diagnoses / Procedures Referred By Contac t Referred To Contact Diagnoses Encounter for antineoplastic chemotherapy Malignant neoplasm of sigmoid colon (HCC) Procedures NC LEUCOVORIN CALCIUM INJECTION NC PALONOSETRON HCL NC FLUOROURACIL INJECTION NC IRINOTECAN INJECTION NC INJ., ZIRABEV, 10 MG Chandni Almonte MD [address] [place] [address] [place] [address] Phone: tel: fax: Hematology/Oncology Treatment, [address] [address] Phone: tel: fax: Referral ID Status Reason Start Date Expiration Date V isits Requested Visits Authorized [id number] Authorized 11/22/2023 11/21/[phone] Encounter Details Date Type Department Care Team (Latest Contact Info) Description 02/13/2024 9:00 AM EST Hem/Onc Treatment Hematology/Oncolog y Treatment, [address] [phone] Nasreen Chair 5 Hem Onc Scenery [address] [place] [address] Encounter for antineoplastic chemotherapy*; Malignant neoplasm of [...] PM EST Immunization/Injec tion Hematology/Oncolog y Treatment, [address] [place] [address] Park, Chair 2 Hem Onc [address] [place] [address] 03/27/2024 10:45 AM EST Imaging Radiology, [address] [place] [address] 04/01/2024 9:30 AM EST Laboratory Laboratory, Jim Long [place] 132 [facility] [place] [phone] Terrance Long 132 [facility] [place] [address] 04/02/2024 10:30 AM EST Hem/Onc Treatment Hematology/Oncolog y Treatment, [place] 200 [facility], [place] [phone] 04/11/2024 2:00 PM EST Office Visit Urology Ashlie Louise [address] [place] [address] [place] [address] Manas Marie MD 27 [place] [address] 04/15/2024 9:30 AM EST Laboratory Laboratory, [facility] [phone] [facility] [address] 04/16/2024 9:00 AM EST Office Visit Hematology/Oncolog y [facility] [address] [place], [place] [address] Alisia Birmingham CRNP [address] [facility] [place] [address] 04/16/2024 9:30 AM EST Hem/Onc Treatment Hematology/Oncolog y Treatment, [place] 200 [facility], [place] [phone] Nasreen, Chair 11 Hem Onc [facility] 200 [facility] [place] [address] 05/06/2024 9:15 AM EST Scheduled Telephone General Surgery Ashlie Louise [address] [place] [address] Ashlie, Nurse Gen Surg Rhonda rCespo, RN [address] [place] [address] 05/14/2024 9:00 AM EST Office Visit Hematology/Oncolog y [facility] [address] [place], [place] [phone] Chandni Almonte MD [address] [place] [address] 05/16/2024 7:30 AM EST Hospital Encounter OR [facility], Operating Room, [facility] - 4th Floor [address] [facility] [place] [phone] Timoteo Ayala, DO [address] [place] [address] 05/16/2024 7:30 AM EST - 05/16/2024 8:16 AM EST Surgery OR [facility], Operating Room, [facility] - 4th Floor [address] [place] [phone] Timoteo Ayala, DO [address] [place] [address] COLONOSCOPY FLEXIBLE PROXIMAL DIAGNOSTIC 07/19/2024 11:30 AM EDT Office Visit Cardiology, [facility] [address] [place] [address] Ciro Saini, DO [address] [place] [address] 02/03/2025 1:00 PM EDT Office Visit Gynecology/Obstetr [facility] [address] [place] [address] Nelli Farrell CRNP [address] [place] [address] Scheduled Procedures Name Priority Associated Diagnoses Date/Ti [...] this encounter Medical Devices Implanted Type Area Supervisor Testing Device Identifier Shelf Expiration Date Model / Serial / Lot Power Port 8fr Sngl Lumen Plas - [id number] Implanted:Qty : 1 on 01/05/2023 by Jai Malcolm Jr., MD at OR [facility] Right: Chest CR BARD : PERIPHERAL VASCULAR [id number] 07/08/2024 [id number] / / [id number] documented as of this encounter Visit Diagnoses [...] at 0945, For 1 dose, Restricted per [facility] antiemetic guidelinesIndications:Enco unter for antineoplastic chemotherapy,Malignant [...] of Attor johann? No Care Teams Rn Telehealth Relationship Specialty Start Date End Date Lina Can MD [address] [place] [address] [place] [address] PCP - General Family Medicine 08/06/22 documented as of this encounter
--- OUTSIDE RECORDS SUMMARY | 2024-05-09 12:20 | External Medical Summary | Summary of Care ---
Author Name Unknown Organization [facility] Address [address] [place] [address] Phone [phone] Care Team Providers Care Chief Information Security Officer Name Role Phone Lina Can MD Primary Care Prov ider Reason for Visit * Reason Comments Chemotherapy C5D1 FolFiri * Episode Based Medications (Routine) - Authorized Specialty Diagnoses / Procedures Referred By Contac t Referred To Contact Diagnoses Encounter for antineoplastic chemotherapy Malignant neoplasm of sigmoid colon (HCC) Procedures MO LEUCOVORIN CALCIUM INJECTION MO PALONOSETRON HCL MO FLUOROURACIL INJECTION MO IRINOTECAN INJECTION MO INJ., ZIRABEV, 10 MG Chandni Almonte MD [address] [place] [address] [place] [address] Phone: tel: fax: Hematology/Oncology Treatment, [address] [address] Phone: tel: fax: Referral ID Status Reason Start Date Expiration Date V isits Requested Visits Authorized [id number] Authorized 11/22/2023 11/21/[phone] Encounter Details Date Type Department Care Team (Latest Contact Info) Description 02/27/2024 9:15 AM EST Hem/Onc Treatment Hematology/Oncolog y Treatment, [address] [phone] Nasreen Chair 8 Hem Onc [address] [place] [address] Encounter for antineoplastic chemotherapy*; Malignant neoplasm of sigmoid colon (HCC) Allergies Active Allergy Reactions Criticality Noted Date Comments Amoxicillin-Pot Clavulanate Nausea/vomiting 07/12/2022 GI upset Doxycycline Nausea/vomiting 07/12/2022 GI upset Oxaliplatin Flushing High 07/27/2023 Shortness of breath Metoclopramide Hives 08/10/2022 documented as of this encounter (statuses as of 03/18/2024) Medications Acetaminophen 500 MG Oral Tablet (Tylenol [...] for Nausea. 30 Tablet 1 4 Active Pegfilgrastim-cbq v 6 MG/0.6ML Subcutaneous Solution Prefilled Syringe (Udenyca)Indicati ons:Malignant neoplasm of sigmoid colon (HCC),Metastasis to bone (HCC),Chemotherap y-induced neutropenia (HCC) Inject 6 mg (1 syringe) under the skin 24 hours after FOLFOX pump disconnect every 2 weeks. 1.2 mL 5 01/18/2024 12:25 PM EDT 4 Active traMADol HCl 50 MG Oral Tablet (Ultram)Indicatio ns:Malignant neoplasm of sigmoid colon (HCC) Take 1 Tablet by mouth every 6 hours as needed for Pain, Moderate. 30 Tablet 4 Active Metoprolol Succinate ER 25 MG Oral Tablet Extended Release 24 Hour (toPROL XL)Indications:Ne w onset atrial fibrillation (HCC) Take 1 Tablet by mouth in the morning. 90 Tablet 1 4 Active Neulasta 6 MG/0.6ML Subcutaneous Solution Prefilled Syringe (Pegfilgrastim)In dications:Maligna nt neoplasm of sigmoid colon (HCC),Prevention of chemotherapy-junaid joão neutropenia Administer 6 mg subq 24 hours after chemo pump disconnect. 1.2 mL 11 02/27/2024 11:31 AM EST 4 Active Nyvepria 6 MG/0.6ML Subcutaneous Solution Prefilled Syringe (Pegfilgrastim-ap gf)Indications:Ma lignant neoplasm of sigmoid colon (HCC),Prevention of chemotherapy-junaid joão neutropenia Administer 6mg subq 24 hours after chemo pump disconnect 1.2 mL 11 4 Active Eliquis 5 MG Oral Tablet Take 1 Tablet by mouth in the morning and 1 Tablet before bedtime. 60 Tablet 11 4 Active Hospital, Clinic, or Other Facility Administered Medication Ordered Dose Route Frequency Start Date End Date Status Fluorouracil (5-Fu) 4,000 mg in NSS 138 mL infusion 4000 mg IV CONTINUOUS 02/26/2024 02/28/2024 Ended documented as of this encounter (statuses as of 03/18/2024) Active Problems Problem Noted Date Diagnosed Date [...] as of this encounter (statuses as of 03/18/2024) Immunizations No known immunizationsdocumented as of this [...] Sign Reading Time Taken Comments Blood Pressure 131/80 02/27/2024 9:27 AM EST Pulse 83 02/27/2024 9:27 AM EST Temperature 36.7 C (98.1 F) 02/27/2024 9:27 AM ES T Respiratory Rate 18 02/27/2024 9:27 AM EST Oxygen Saturation 99% 02/27/2024 9:27 AM EST Inhaled Oxygen Concentration - - Weight 54.5 kg (120 lb 3.2 oz) 02/27/2024 9:27 A M EST Height - - Body Mass Index 22.71 11/15/2023 10:01 AM EDT documented in this [...] Nursing Notes * Sanjana Browne RN - 02/27/2024 1:07 PM EST Patient tolerated treatment without issue. Port remains with brisk blood return and accessed, 46 hour infusion of 5 FU attached to port. Goals: Patient will remain free from injury. Possible barriers to meeting goals: Ambulating with IV pole Stability of the patient: Moderately stable - low risk of patient condition declining or worsening Summary regarding today's goals: Met: Patient remained free from harm. Pt discharged in stable condition. * Sanjana Browne RN - 02/27/2024 11:47 AM EST Chair 3 Patient here for treatment. Patient offers no acute complaints. Port accessed with brisk blood return. Chemotherapy/Immunotherapy agents: FOLFIRI (leucovorin, 5-FU, & irinotecan) Consent for chemotherapy drug treatment complete, dated, and signed? yes, date - 11/22/23 Treatment lab parameters met? Yes Has treatment weight changed > than 10%? No Treatment preauthorized? Yes VITALS Filed Vitals: 02/27/24 0927 BP: 131/80 Pulse: 83 Resp: 18 Temp: 36.7 C (98.1 F) SpO2: 99% Weight: 54.5 kg (120 lb 3.2 oz) Urine protein: NEGATIVE Patient education completed for treatment? Yes Blood transfusion consent signed and complete? NA Return appointment scheduled? Yes Patient had provider visit today? No - If no provider visit must complete Pretreatment Assessment Functional Status: Functional status at today's visit: [...] potential carrillo while using the heat function. PRE-TREATMENT ASSESSMENT: NEURO: denies symptoms CV/RESP: denies symptoms GI/: denies symptoms OTHER: denies any additional symptoms PAIN: 0 Safety and Risk for Injury Patient will remain free from injury. Ensure appropriate safety devices are available. Provide and maintain safe environment. documented in this encounter Plan of Treatment Upcoming Encounters Date Type Department Care Team (Late st Contact Info) Description 03/19/2024 12:00 PM EST Office Visit Hematology/Oncolo gy [facility] Nasreen [place] 200 [facility] [place] [phone] Alisia Birmingham CRNP [address] [place], [place] [address] [address] 03/19/2024 1:00 PM EST Hem/Onc Treatment Hematology/Oncolo gy Treatment, [place] 200 [facility] [place] [phone] Nasreen, Chair 1 Hem Onc [address] [place] [address] Encounter for antineoplastic chemotherapy*; Malignant neoplasm of sigmoid colon (HCC) 03/25/2024 9:00 AM EST [facility] [place] 132 [facility] [place] [phone] Terrance Long 132 [facility] [address] 03/26/2024 9:15 AM EST Office Visit Hematology/Oncolo gy [facility] Nasreen [place] 200 [facility] [place] [phone] Chandni Almonte MD [address] [place] [address] 03/26/2024 12:00 PM EST Hem/Onc Treatment Hematology/Oncolo gy Treatment, [place] [address] [place] [address] Park, Chair 5 Hem Onc Scenery [address] [place] [address] 04/11/2024 2:00 PM EST Office Visit Urology Ashlie Louise [address] [place] [address] Manas Marie MD [address] [place] [address] 05/06/2024 9:15 AM EST Scheduled Telephone General Surgery Ashlie Louise [address] [place] [address] Ashlie, Nurse Gen Surg Rhonda Crespo RN [address] [place] [address] 05/16/2024 7:30 AM EST Hospital Encounter OR [facility], Operating Room, [facility] - 4th Floor [address] [place] [address] Timoteo Ayala, DO [address] [facility] [place] [address] 05/16/2024 7:30 AM EST - 05/16/2024 8:16 AM EST Surgery OR [facility], Operating Room, [facility] - 4th Floor [address] [place] [phone] Timoteo Ayala, DO [address] [facility] [place] [address] COLONOSCOPY FLEXIBLE PROXIMAL DIAGNOSTIC 07/19/2024 11:30 AM EDT Office Visit Cardiology, [facility] [address] [place] [address] Ciro Saini, [address] [place] [address] 02/03/2025 1:00 PM EDT Office Visit Gynecology/Obstet stevo Long [address] [place] [address] Nelli Farrell CRNP [address] [place] [address] Scheduled Procedures Name Priority Associated Diagnoses Date/Ti [...] this encounter Medical Devices Implanted Type Area Plumber Apprentice Device Identifier Shelf Expiration Date Model / Serial / Lot Power Port 8fr Sngl Lumen Plas - [id number] Implanted:Qty : 1 on 01/05/2023 by Jai Malcolm Jr., MD at OR [facility] Right: Chest CR BARD : PERIPHERAL VASCULAR [id number] 07/08/2024 [id number] / / [id number] documented as of this encounter Visit Diagnoses Diagnosis Encounter for antineoplastic chemotherapy- Primary Malignant neoplasm of sigmoid colon (HCC) Malignant neoplasm of sigmoid colon Encounter for antineoplastic chemotherapy- Primary Malignant neoplasm of sigmoid colon (HCC) Malignant neoplasm of sigmoid colon Cancer of sigmoid colon (HCC) Malignant neoplasm of sigmoid colon documented in this encounter Administered Medications Inactive Administered Medications - up to 3 most recent administrations Medication Order MAR Action Action Date Dose Rate Site Atropine sulfate inj 0.4 mg 0.4 mg, IV Push, ONCE, On Mon02/27/24 at 1000, For 1 dose, Administer prior to irinotecan.Indications:Enc ounter for antineoplastic chemotherapy,Malignant neoplasm of sigmoid colon (HCC) Given 02/27/2024 10:50 AM EST 0.4 mg bevaCIZumab-bvzr (Zirabev) 300 mg in NSS 100 mL infusion 300 mg (rounded from 291.5 mg = 5 mg/kg 58.3 kg Treatment plan Recorded weight), IV Piggyback, ONCE, 1 dose, On Mon02/27/24 at 1015, Administer over 30 Minutes, Flush with NSS only!Indications:Encounter for antineoplastic chemotherapy,Malignant neoplasm of sigmoid colon (HCC) Start Infusion 02/27/2024 10:08 AM EST 300 mg 210 mL/hr dexAMETHasone (Decadron) tab 12 mg 12 mg, Oral, ONCE, On Mon02/27/24 at 0945, For 1 doseIndications:Encounter for antineoplastic chemotherapy,Malignant neoplasm of sigmoid colon (HCC) Given 02/27/2024 9:42 AM EST 12 mg Fluorouracil (5-Fu) 4,000 mg for Home Infusion 4,000 mg (rounded from 3,792 mg = 2,400 mg/m2 1.58 m2 Treatment Plan BSA from Recorded weight), Intravenous, Administer over 46 Hours, Home Infusion Pharmacy to specify base solution and volume., ONCE, 1 dose, On Mon02/27/24 at 1115Indications:Encounter for antineoplastic chemotherapy,Malignant neoplasm of sigmoid colon (HCC) Start Infusion 02/27/2024 12:49 PM EST 4,000 mg 3 mL/hr Fluorouracil (5-Fu) inj 650 mg 650 mg (rounded from 632 mg = 400 mg/m2 1.58 m2 Treatment Plan BSA from Recorded weight), IV Push, ONCE, 1 dose, On Mon02/27/24 at 1100Indications:Encounter for antineoplastic chemotherapy,Malignant neoplasm of sigmoid colon (HCC) Given 02/27/2024 12:48 PM EST 650 mg irinotecan HCl (Camptosar) 280 mg in D5W 500 mL infusion 280 mg (rounded from 284.4 mg = 180 mg/m2 1.58 m2 Treatment Plan BSA from Recorded weight), IV Piggyback, ONCE, 1 dose, On Mon02/27/24 at 1000, Administer over 90 Minutes, PROTECT FROM LIGHTIndications:Encounter for antineoplastic chemotherapy,Malignant neoplasm of sigmoid colon (HCC) Start Infusion 02/27/2024 10:55 AM EST 280 mg 349.33 mL/hr leucovorin calcium 650 mg in D5W 250 mL INFUSION 650 mg (rounded from 632 mg = 400 mg/m2 1.58 m2 Treatment Plan BSA from Recorded weight), IV Piggyback, ONCE, 1 dose, On Mon02/27/24 at 1000, Administer over 90 Minutes, Before 5-FUIndications:Encounter for antineoplastic chemotherapy,Malignant neoplasm of sigmoid colon (HCC) Start Infusion 02/27/2024 10:52 AM EST 650 mg 170 mL/hr NSS infusion Intravenous, at 50 mL/hr, PRN, Starting on Mon02/27/24 at 0830, Until Mon02/27/24 at 1714, Maintenance lineIndications:Encounter for antineoplastic chemotherapy,Malignant neoplasm of sigmoid colon (HCC) Start Infusion 02/27/2024 9:42 AM EST 50 mL/hr Palonosetron (Aloxi) inj SOLN 0.25 mg 0.25 mg, IV Push, ONCE, On Mon02/27/24 at 0945, For 1 dose, Restricted per S antiemetic guidelinesIndications:Enco unter for antineoplastic chemotherapy,Malignant neoplasm of sigmoid colon (HCC) Given 02/27/2024 9:42 AM EST 0.25 mg documented in this encounter Advance Directives * [...] Power of Attor johann? No Care Teams Chief Information Security Officer Relationship Specialty Start Date End Date Lina Can MD [address] [place] [address] [place] [address] PCP - General Family Medicine 08/06/22 documented as of this encounter
--- OUTSIDE RECORDS SUMMARY | 2024-05-09 12:20 | External Medical Summary | Summary of Care ---
Author Name Unknown Organization [facility] Address [address] [place] [address] Phone [phone] Care Team Providers Care Compliance Monitor Name Role Phone Lina Can MD Primary Care Prov ider Reason for Visit * Reason Comments Chemotherapy C6/D1 - FOLFIRI/Zira antonina * Episode Based Medications (Routine) - Authorized Specialty Diagnoses / Procedures Referred By Contserafin t Referred To Contact Diagnoses Encounter for antineoplastic chemotherapy Malignant neoplasm of sigmoid colon (HCC) Procedures MD LEUCOVORIN CALCIUM INJECTION MD PALONOSETRON HCL MD FLUOROURACIL INJECTION MD IRINOTECAN INJECTION MD INJ., ZIRABEV, 10 MG Chandni Almonte MD [address] [place] [address] [place] [address] Phone: tel: fax: Hematology/Oncology Treatment, [address] [address] Phone: tel: fax: Referral ID Status Reason Start Date Expiration Date V isits Requested Visits Authorized [id number] Authorized 11/22/2023 11/21/2024 999 [id number] Encounter Details Date Type Department Care Team (Latest Contact Info) Description 03/19/2024 1:00 PM EST Hem/Onc Treatment Hematology/Oncolog y Treatment, [address] [address] Nasreen, Chair 1 Hem Onc [address] [place] [address] Encounter for antineoplastic chemotherapy*; Malignant neoplasm of [...] mL 11 02/27/2024 11:31 AM EST 02/22/20 Active Nyvepria [...] 3 mL/hr over 46 hours intravenously continuous. 11077 mg 03/19/2024 3:37 PM EST 03/14/20 24 [...] No 11/25/2022 5:16 PM Niikta Milton RN * Do you have serious [...] Patient instructed on the risk of potential carrlilo while using the heat function. Safety and Risk for Injury Patient will remain free from injury. Ensure appropriate safety devices are available. Provide and maintain safe environment. documented in this encounter Plan of Treatment Upcoming Encounters Date Type Department Care Team (Late st Contact Info) Description 03/21/2024 2:30 PM EST Immunization/Injec tion Hematology/Oncolog y Treatment, [address] [place] [phone] Park, Chair 2 Hem Onc [address] [place] [address] 03/27/2024 10:45 AM EST Imaging Radiology, [address] [place] [address] 04/01/2024 9:30 AM EST Laboratory Laboratory, Jim Long, [place] 132 [facility] [phone] Terrance Long 132 [facility] [place] [address] 04/02/2024 10:30 AM EST Hem/Onc Treatment Hematology/Oncolog y Treatment, [address] [place] [address] 04/11/2024 2:00 PM EST Office Visit Urology Rhonda Ashlie Crespo [address] [place] [address] Manas Marie MD [address] [place] [address] 04/15/2024 9:30 AM EST Laboratory Laboratory, [facility] [phone] [facility] 132 [facility] [place] [address] 04/16/2024 9:00 AM EST Office Visit Hematology/Oncolog y [facility] [address] [place] [address] Alisia Birmingham CRNP 400 [facility] [place] [address] 04/16/2024 9:30 AM EST Hem[facility] [address] [place], [place] [address] Nasreen, Chair 11 Hem Onc Sc[place]ery [address] [place] [address] 05/06/2024 9:15 AM EST Scheduled Telephone General Surgery Ashlie Louise [address] [place] [address] Ashlie Nurse Gen Surg Rhonda Crespo, RN [address] [place] [address] 05/14/2024 9:00 AM EST Office Visit Hematology/Oncolog y [facility] [place] [address] [place], [place] [address] Chandni Almonte MD [address] [place] [address] 05/16/2024 7:30 AM EST Hospital Encounter OR [facility], Operating Room, [facility] - 4th Floor [address] [place] [phone] Timoteo Ayala, DO [address] [facility] [place] [address] 05/16/2024 7:30 AM EST - 05/16/2024 8:16 AM EST Surgery OR [facility], Operating Room, [facility] - 4th Floor [address] [place] [phone] Timoteo Ayala, DO [address] [facility] [place] [address] COLONOSCOPY FLEXIBLE PROXIMAL DIAGNOSTIC 07/19/2024 11:30 AM EDT Office Visit Cardiology, [facility] [address] [place] [address] Ciro Saini, [address] [place] [address] 02/03/2025 1:00 PM EDT Office Visit Gynecology/Obstetr [facility] [address] [place] [address] Nelli Farrell CRNP [address] [place] [address] Scheduled Procedures Name Priority Associated Diagnoses Date/Ti [...] this encounter Medical Devices Implanted Type Area Photostat Operator Device Identifier Shelf Expiration Date Model / Serial / Lot Power Port 8fr Sngl Lumen Plas - [id number] Implanted:Qty : 1 on 01/05/2023 by Jai Malcolm Jr., MD at OR [facility] Right: Chest CR BARD : PERIPHERAL VASCULAR [id number] 07/08/2024 [id number] / / [id number] documented as of this encounter Visit Diagnoses [...] ONCE PRN Other, Hypersensitivity Reaction, Starting on Mon03/19/24 at 1300, Until Mon03/20/24 at 1259, For 24 hoursIndications:Encounter for antineoplastic chemotherapy,Malignant neoplasm of sigmoid colon (HCC) EPINEPHrine 1 MG/ML inj 0.3 mg 0.3 mg, Intramuscular, ONCE PRN Other, Hypersensitivity Reaction or Anaphylaxis, Starting on Mon03/19/24 at 1300, Until Mon03/20/24 at 1259, For 24 hoursIndications:Encounter for antineoplastic chemotherapy,Malignant neoplasm of sigmoid colon (HCC) hEParin 100 UNIT/ML Lock Flush inj 500 Units 500 Units (5 mL), IV Lock, PRN Other, IV Flush, Starting on Mon03/19/24 at 1300, Until Mon03/20/24 at 1259, For 24 hours, Do not flush if lock, PICC, or central line not in place; IV infusing or unable to flush.Indications:Encounter for antineoplastic chemotherapy,Malignant neoplasm of sigmoid colon (HCC) Hydrocortisone Sod Suc (PF) (Solu-Cortef) inj 100 mg 100 mg, IV Push, ONCE PRN Other, Hypersensitivity Reaction, Starting on Mon03/19/24 at 1300, Until Mon03/20/24 at 1259, For 24 hoursIndications:Encounter for antineoplastic chemotherapy,Malignant neoplasm of sigmoid colon (HCC) LORAzepam (Ativan) tab 0.5 mg 0.5 mg, Oral, ONCE PRN Anxiety, Nausea, Starting on Mon03/19/24 at 0830, Until DiscontinuedIndications:Encoun ter for antineoplastic chemotherapy,Malignant neoplasm of sigmoid colon (HCC) NSS infusion Intravenous, at 50 mL/hr, PRN, Starting on Mon03/19/24 at 0830, Until Discontinued, Maintenance lineIndications:Encounter for antineoplastic chemotherapy,Malignant neoplasm of sigmoid colon (HCC) Start Infusion 03/19/2024 1:32 PM EST 50 mL/hr oxygen GAS Inhalation, OXYGEN, First dose on Mon03/19/24 at 1600, Until Discontinued, Device/Managed by: Low [...] Flush, Starting on Mon03/19/24 at 1300, Until Mon03/20/24 at 1259, For 24 hours, Do not flush if lock, PICC, or central line not in place; IV infusing or unable to flush.Indications:Encounter for antineoplastic chemotherapy,Malignant neoplasm of sigmoid colon (HCC) Given 03/19/2024 4:35 PM EST 10 mL Inactive Administered Medications [...] 3:02 PM EST 650 mg 170 mL/hr Palonosetron (Aloxi) inj SOLN 0.25 mg 0.25 mg, IV Push, ONCE, On Mon03/19/24 at 1345, For 1 dose, Restricted per S antiemetic guidelinesIndications:Enco unter for antineoplastic chemotherapy,Malignant neoplasm of sigmoid colon (HCC) Given 03/19/2024 1:31 PM EST 0.25 mg documented in this encounter [...] Power of Attor johann? No Care Teams Compliance Monitor Relationship Specialty Start Date End Date Lina Can MD [address] [place] [address] [place] [address] PCP - General Family Medicine 08/06/22 documented as of this encounter
--- OUTSIDE RECORDS SUMMARY | 2024-05-09 12:20 | External Medical Summary | Summary of Care ---
Author Name Unknown Organization [facility] Address [address] [place] [address] Phone [phone] Care Team Providers Care Blockers Skiver Name Role Phone Lina Can MD Primary [...] INJ., ZIRABEV, 10 MG Chandni Almonte MD [address] [place] [address] [place] [address] Phone: tel: fax: Hematology/Oncology Treatment, [address] [address] Phone: tel: fax: Referral ID Status Reason Start Date Expiration Date V isits Requested Visits Authorized [id number] Authorized 11/22/2023 11/21/[phone] Encounter Details Date Type Department Care Team (Latest Contact Info) Description 02/27/2024 9:15 AM EST Hem/Onc Treatment Hematology/Oncolog y Treatment, [address] [address] Nasreen Chair 8 Hem Onc [address] [place] [address] Encounter for antineoplastic chemotherapy*; [...] 12:00 PM EST Office Visit Hematology/Oncolo gy [facility] Nasreen [place] 200 [facility] [place] [phone] Alisia Birmingham CRNP [address] [place], [place] [address] [address] 03/19/2024 1:00 PM EST Hem/Onc Treatment Hematology/Oncolo gy Treatment, [place] 200 [facility] [place] [phone] Nasreen, Chair 1 Hem Onc [address] [place] [address] Encounter for antineoplastic chemotherapy*; Malignant neoplasm of sigmoid colon (HCC) 03/25/2024 9:00 AM EST [facility] [place] 132 [facility] [place] [phone] Terrance Long 132 [facility] [address] 03/26/2024 9:15 AM EST Office Visit Hematology/Oncolo gy [facility] Nasreen [place] 200 [facility] [place] [phone] Chandni Almonte MD [address] [place] [address] 03/26/2024 12:00 PM EST Hem/Onc Treatment Hematology/Oncolo gy Treatment, [place] [address] [place] [address] Park, Chair 5 Hem Onc Scenery [address] [place] [address] 04/11/2024 2:00 PM EST Office Visit Urology Ashlie Louise [address] [place] [address] Manas Marie MD [address] [place] [address] 05/06/2024 9:15 AM EST Scheduled Telephone General Surgery Ashlie Louise [address] [place] [address] Ashlie, Nurse Gen Surg Rhonda Crespo RN [address] [place] [address] 05/16/2024 7:30 AM EST Hospital Encounter OR [facility], Operating Room, [facility] - 4th Floor [address] [place] [address] Timoteo Ayala, DO [address] [facility] [place] [address] 05/16/2024 7:30 AM EST - 05/16/2024 8:16 AM EST Surgery OR [facility], Operating Room, [facility] - 4th Floor [address] [place] [phone] Timoteo Ayala, DO [address] [facility] [place] [address] COLONOSCOPY FLEXIBLE PROXIMAL DIAGNOSTIC 07/19/2024 11:30 AM EDT Office Visit Cardiology, [facility] [address] [place] [address] Ciro Saini, [address] [place] [address] 02/03/2025 1:00 PM EDT Office Visit Gynecology/Obstet stevo Long [address] [place] [address] Nelli Farrell CRNP [address] [place] [address] Scheduled Procedures Name Priority Associated Diagnoses Date/Ti [...] this encounter Medical Devices Implanted Type Area Quality Technician Device Identifier Shelf Expiration Date Model / Serial / Lot Power Port 8fr Sngl Lumen Plas - [id number] Implanted:Qty : 1 on 01/05/2023 by Jai Malcolm Jr., MD at OR [facility] Right: Chest CR BARD : PERIPHERAL VASCULAR [id number] 07/08/2024 [id number] / / [id number] documented as of this encounter Visit Diagnoses [...] Power of Attor johann? No Care Teams Blockers Skiver Relationship Specialty Start Date End Date Lina Can MD [address] [place] [address] [place] [address] PCP - General Family Medicine 08/06/22 documented as of this encounter
--- OUTSIDE RECORDS SUMMARY | 2024-05-09 12:20 | External Medical Summary | Summary of Care ---
Author Name Unknown Organization [facility] Address [address] [place] [address] Phone [phone] Care Team Providers Care Homemaking Rehabilitation Consultant Name Role Phone Lina Can MD Primary Care Prov ider Reason for Visit * Reason Comments Chemotherapy C5D1 FolFiri * Episode Based Medications (Routine) - Authorized Specialty Diagnoses / Procedures Referred By Contac t Referred To Contact Diagnoses Encounter for antineoplastic chemotherapy Malignant neoplasm of sigmoid colon (HCC) Procedures DC LEUCOVORIN CALCIUM INJECTION DC PALONOSETRON HCL DC FLUOROURACIL INJECTION DC IRINOTECAN INJECTION DC INJ., ZIRABEV, 10 MG Chandni Almonte MD [address] [place] [address] [place] [address] Phone: tel: fax: Hematology/Oncology Treatment, [address] [address] Phone: tel: fax: Referral ID Status Reason Start Date Expiration Date V isits Requested Visits Authorized [id number] Authorized 11/22/2023 11/21/2024 999 [id number] Encounter Details Date Type Department Care Team (Latest Contact Info) Description 02/27/2024 9:15 AM EST Hem/Onc Treatment Hematology/Oncolog y Treatment, [address] [address] Nasreen Chair 8 Hem Onc [address] [place] [address] Encounter for antineoplastic chemotherapy*; [...] of Assessment Author No 11/25/2022 5:16 PM Nkiita Milton RN * Because of a physical, [...] PM EST Office Visit Hematology/Oncolo gy [facility] Nasreen [place] 200 [facility] [place] [phone] Alisia Birmingham CRNP [address] [place], [place] [address] [address] 03/19/2024 1:00 PM EST Hem/Onc Treatment Hematology/Oncolo gy Treatment, [place] [address] [place] [phone] Nasreen, Chair 1 Hem Onc [address] [place] [address] Encounter for antineoplastic chemotherapy*; Malignant neoplasm of sigmoid colon (HCC) 03/25/2024 9:00 AM EST [facility] [place] 132 [facility] [place] [phone] Terrance Long 132 [facility] [address] 03/26/2024 9:15 AM EST Office Visit Hematology/Oncolo gy [facility] Nasreen [place] 200 [facility] [place] [phone] Chandni Almonte MD [address] [place] [address] 03/26/2024 12:00 PM EST Hem/Onc Treatment Hematology/Oncolo gy Treatment, [place] [address] [place] [address] Park, Chair 5 Hem Onc Scenery [address] [place] [address] 04/11/2024 2:00 PM EST Office Visit Urology Ashlie Louise [address] [place] [address] Manas Marie MD [address] [place] [address] 05/06/2024 9:15 AM EST Scheduled Telephone General Surgery Ashlie Louise [address] [place] [address] Ashlie, Nurse Gen Surg Rhonda Crespo RN [address] [place] [address] 05/16/2024 7:30 AM EST Hospital Encounter OR [facility], Operating Room, [facility] - 4th Floor [address] [place] [address] Timoteo Ayala, DO [address] [place] [facility] [place] [address] 05/16/2024 7:30 AM EST - 05/16/2024 8:16 AM EST Surgery OR [facility], Operating Room, [facility] - 4th Floor [address] [place] [phone] Timoteo Ayala, DO [address] [place] [facility] [place] [address] COLONOSCOPY FLEXIBLE PROXIMAL DIAGNOSTIC 07/19/2024 11:30 AM EDT Office Visit Cardiology, [facility] [address] [place] [address] Ciro Saini, [address] [place] [address] 02/03/2025 1:00 PM EDT Office Visit Gynecology/Obstet stevo Long [address] [place] [address] Nelli Farrell CRNP [address] [place] [address] Scheduled Procedures Name Priority Associated Diagnoses Date/Ti [...] this encounter Medical Devices Implanted Type Area Nuclear Plant Construction Worker Device Identifier Shelf Expiration Date Model / Serial / Lot Power Port 8fr Sngl Lumen Plas - [id number] Implanted:Qty : 1 on 01/05/2023 by Jai Malcolm Jr., MD at OR [facility] Right: Chest CR BARD : PERIPHERAL VASCULAR [id number] 07/08/2024 [id number] / / [id number] documented as of this encounter Visit Diagnoses [...] Power of Attor johann? No Care Teams Homemaking Rehabilitation Consultant Relationship Specialty Start Date End Date Lina Can MD [address] [place] [address] [place] [address] PCP - General Family Medicine 08/06/22 documented as of this encounter
--- OUTSIDE RECORDS SUMMARY | 2024-05-09 12:20 | External Medical Summary | Summary of Care ---
Author Name Unknown Organization [facility] Address [address] [place] [address] Phone [phone] Care Team Providers Care Emt/Paramedic Name Role Phone Lina Can MD Primary Care Prov ider Encounter Details Date Type Department Care Team (Late st Contact Info) Description 03/10/2024 Orders Only Hematology/Oncology [facility] [place] 200 [facility] [place] [phone] Chandni Almonte MD 200 [facility] [place] [address] Allergies Active Allergy Reactions Criticality Noted Date [...] before bedtime. 60 Tablet 11 4 Active documented as of this encounter [...] 11/25/2022 5:16 PM EDNikita Mccormack RN documented as of this encounter Mental [...] 12:00 PM EST Office Visit Hematology/Oncolo gy [facility] 200 [facility] [place] [phone] Alisia Birmingham CRNP 400 [facility] [place] [address] 03/19/2024 1:00 PM EST Hem/Onc Treatment Hematology/Oncolo gy [facility] 200 [facility] [place] [address] Nasreen, Chair 1 Hem Onc [place] [address] [address] [place] [address] Encounter for antineoplastic chemotherapy*; Malignant neoplasm of sigmoid colon (HCC) 03/25/2024 9:00 AM EST Laboratory Laboratory, [facility] [address] [place] [phone] Terrance Long 132 [facility] [place] [address] 03/26/2024 9:15 AM EST Office Visit Hematology/Oncolo gy [facility] [address] [place] [phone] Chandni Almonte MD [address] [place] [address] 03/26/2024 12:00 PM EST Hem/Onc Treatment Hematology/Oncolo gy Treatment, [place] [address] [place], [place] [phone] [place], Chair 5 Hem Onc Scenery [address] [place] [address] 04/11/2024 2:00 PM EST Office Visit Urology Ashlie Louise [address] [place] [address] Manas Marie MD 27 [place] [address] 05/06/2024 9:15 AM EST Scheduled Telephone General Surgery Ashlie Louise [address] [place] [address] Ashlie, Nurse Gen Surg Rhonda Crespo RN [address] [place] [address] 05/16/2024 7:30 AM EST Hospital Encounter OR [facility], Operating Room, [facility] - 4th Floor [address] [place] [address] Timoteo Ayala, DO [address] [place] [facility] [address] 05/16/2024 7:30 AM EST - 05/16/2024 8:16 AM EST Surgery OR [facility], Operating Room, [facility] - 4th Floor [address] [place] [phone] Timoteo Ayala, DO [address] [facility] [place], [place] [address] COLONOSCOPY FLEXIBLE PROXIMAL DIAGNOSTIC 07/19/2024 11:30 AM EDT Office Visit Cardiology, [facility] 132 [place] [address] Ciro Saini DO [address] [place] [address] 02/03/2025 1:00 PM EDT Office Visit Gynecology/Obstet ricartie Long [address] [place] [address] Nelli Farrell CRNP [address] [place] [address] Scheduled Procedures Name Priority Associated Diagnoses Date/Ti [...] this encounter Medical Devices Implanted Type Area Lunchroom Aide Device Identifier Shelf Expiration Date Model / Serial / Lot Power Port 8fr Sngl Lumen Plas - [id number] Implanted:Qty : 1 on 01/05/2023 by Jai Malcolm Jr., MD at [facility] Right: Chest CR BARD : PERIPHERAL VASCULAR [id number] 07/08/2024 [id number] / / [id number] documented as of this encounter Advance Directives [...] Power of Attor johann? No Care Teams Emt/Paramedic Relationship Specialty Start Date End Date Lina Can MD [address] [place] [address] [place] [address] PCP - General Family Medicine 08/06/22 documented as of this encounter
--- OUTSIDE RECORDS SUMMARY | 2024-05-09 12:20 | External Medical Summary | Summary of Care ---
Author Name Unknown Organization [facility] Address [address] [place] [address] Phone [phone] Care Team Providers Care Hotel Supplies Salesperson Name Role Phone Lina Can MD Primary Care Prov ider Reason for Visit * Reason Comments Chemotherapy C5D1 FolFiri * Episode Based Medications (Routine) - Authorized Specialty Diagnoses / Procedures Referred By Contac t Referred To Contact Diagnoses Encounter for antineoplastic chemotherapy Malignant neoplasm of sigmoid colon (HCC) Procedures OR LEUCOVORIN CALCIUM INJECTION OR PALONOSETRON HCL OR FLUOROURACIL INJECTION OR IRINOTECAN INJECTION OR INJ., ZIRABEV, 10 MG Chandni Almonte MD [address] [place] [address] [place] [address] Phone: tel: fax: Hematology/Oncology Treatment, [address] [address] Phone: tel: fax: Referral ID Status Reason Start Date Expiration Date V isits Requested Visits Authorized [id number] Authorized 11/22/2023 11/21/[phone] Encounter Details Date Type Department Care Team (Latest Contact Info) Description 02/27/2024 9:15 AM EST Hem/Onc Treatment Hematology/Oncolog y Treatment, [address] [address] Nasreen Chair 8 Hem Onc [address] [place] [address] Encounter for antineoplastic chemotherapy*; [...] 12:00 PM EST Office Visit Hematology/Oncolo gy [facility] Nasreen [place] 200 [facility] [place] [phone] Alisia [place] CRNP [address] [place], [place] [address] [address] 03/19/2024 1:00 PM EST Hem/Onc Treatment Hematology/Oncolo gy Treatment, [place] 200 [facility] [place] [phone] Nasreen, Chair 1 Hem Onc [address] [place] [address] Encounter for antineoplastic chemotherapy*; Malignant neoplasm of sigmoid colon (HCC) 03/25/2024 9:00 AM EST Laboratory Laboratory, [facility] [place] 132 [facility] [place] [phone] Terrance Long 132 [facility] [address] 03/26/2024 9:15 AM EST Office Visit Hematology/Oncolo gy [facility] Nasreen [place] 200 [facility] [place] [phone] Chandni Almonte MD [address] [place] [address] 03/26/2024 12:00 PM EST Hem/Onc Treatment Hematology/Oncolo gy Treatment, [place] [address] [place] [address] Park, Chair 5 Hem Onc [address] [address] [place] [address] 04/11/2024 2:00 PM EST Office Visit Urology Ashlie Louise [address] [place] [address] Manas Marie MD [address] [place] [address] 05/06/2024 9:15 AM EST Scheduled Telephone General Surgery Ashlie Louise [address] [place] [address] Ashlie, Nurse Gen Surg Rhonda Crespo RN [address] [place] [address] 05/16/2024 7:30 AM EST Hospital Encounter OR [facility], Operating Room, [facility] - 4th Floor [address] [place] [address] Timoteo Ayala, DO [address] [facility] [place] [address] 05/16/2024 7:30 AM EST - 05/16/2024 8:16 AM EST Surgery OR [facility], Operating Room, [facility] - 4th Floor [address] [place] [phone] Timoteo Ayala, DO [address] [facility] [place] [address] COLONOSCOPY FLEXIBLE PROXIMAL DIAGNOSTIC 07/19/2024 11:30 AM EDT Office Visit Cardiology, [facility] [address] [place] [address] Ciro Saini, [address] [place] [address] 02/03/2025 1:00 PM EDT Office Visit Gynecology/Obstet stevo Long [address] [place] [address] Nelli Farrell CRNP [address] [place] [address] Scheduled Procedures Name Priority Associated Diagnoses Date/Ti [...] this encounter Medical Devices Implanted Type Area Attendance Officer Device Identifier Shelf Expiration Date Model / Serial / Lot Power Port 8fr Sngl Lumen Plas - [id number] Implanted:Qty : 1 on 01/05/2023 by Jai Malcolm Jr., MD at OR [facility] Right: Chest CR BARD : PERIPHERAL VASCULAR [id number] 07/08/2024 [id number] / / [id number] documented as of this encounter Visit Diagnoses [...] Power of Attor johann? No Care Teams Hotel Supplies Salesperson Relationship Specialty Start Date End Date Lina Can MD [address] [place] [address] [place] [address] PCP - General Family Medicine 08/06/22 documented as of this encounter
--- OUTSIDE RECORDS SUMMARY | 2024-05-09 12:20 | External Medical Summary | Summary of Care ---
Author Name Unknown Organization [facility] Address [address] [place] [address] Phone [phone] Care Team Providers Care Director External Communications Name Role Phone Lina Can MD Primary Care Prov ider Reason for Visit * Reason Comments Chemotherapy Day 1, cycle 4 bevac izumab, irinotecan, leucovorin, 5FU * Episode Based Medications (Routine) - Authorized Specialty Diagnoses / Procedures Referred By Contac t Referred To Contact Diagnoses Encounter for antineoplastic chemotherapy Malignant neoplasm of sigmoid colon (HCC) Procedures [place] LEUCOVORIN CALCIUM INJECTION [place] PALONOSETRON HCL [place] FLUOROURACIL INJECTION [place] IRINOTECAN INJECTION [place] INJ., ZIRABEV, 10 MG Chandni Almonte MD [address] [place] [address] [place] [address] Phone: tel: fax: Hematology/Oncology Treatment, [address] [address] Phone: tel: fax: Referral ID Status Reason Start Date Expiration Date V isits Requested Visits Authorized [id number] Authorized 11/22/2023 11/21/[phone] Encounter Details Date Type Department Care Team (Latest Contact Info) Description 02/13/2024 9:00 AM EST Hem/Onc Treatment Hematology/Oncolog y Treatment, [address] [address] Nasreen Chair 5 Hem Onc Scenery [address] [place] [address] Encounter for antineoplastic chemotherapy*; Malignant neoplasm of [...] PM EST Immunization/Injec tion Hematology/Oncolog y Treatment, [place] [address] [place] [phone] Nasreen, Chair 2 Hem Onc [facility] [place] [address] 03/25/2024 9:00 AM EST Laboratory Laboratory, [facility] [place] 132 [facility] [place] [phone] Terrance Long 132 [facility] [place] [address] 03/26/2024 9:15 AM EST Office Visit Hematology/Oncolog y [facility] Nasreen [place] [address] [place] [phone] Chandni Almonte MD 200 [facility] [place] [address] 03/26/2024 12:00 PM EST Hem/Onc Treatment Hematology/Oncolog y Treatment, [place] 200 [facility], [place] [phone] Nasreen, Chair 5 Hem Onc [facility] 200 [place] [address] 03/27/2024 10:45 AM EST Imaging Radiology, [facility] [address] [place] [id number] 04/01/2024 9:30 AM EST Laboratory Laboratory, [facility] 132 [facility] [place] [phone] Terrance Long 132 [facility] [place] [address] 04/02/2024 10:30 AM EST Hem/Onc Treatment Hematology/Oncolog y Treatment, [place] 200 [facility], [place] [phone] 04/11/2024 2:00 PM EST Office Visit Ashlie [place] [address] [place] [address] [place] [address] Manas Marie MD 27 [place] [address] 04/15/2024 9:30 AM EST Laboratory Laboratory, [facility] [address] [place] [phone] Terrance Long 132 [facility] [place] [address] 04/16/2024 9:00 AM EST Office Visit Hematology/Oncolog y [facility] [address] [place] [phone] Alisia [place] CRNP [address] [place] [address] 04/16/2024 9:30 AM EST Hem/Onc Treatment Hematology/Oncolog y Treatment, [place] [address] [place] [phone] Nasreen, Chair 11 Hem Onc [address] [place] [address] 05/06/2024 9:15 AM EST Scheduled Telephone General Surgery Ashlie Louise [address] [place] [address] Ashlie, Nurse Gen Surg Rhonda Crespo RN [address] [place] [address] 05/14/2024 9:00 AM EST Office Visit Hematology/Oncolog y [address] Nasreen [place] [address] [place] [phone] Chandni Almonte MD [address] [place] [address] 05/16/2024 7:30 AM EST Hospital Encounter OR [facility], Operating Room, [facility] - 4th Floor [address] [place] [phone] Timoteo Ayala, DO [address] [facility] [place] [address] 05/16/2024 7:30 AM EST - 05/16/2024 8:16 AM EST Surgery OR [facility], Operating Room, [facility] - 4th Floor [address] [place] [place] [phone] Timoteo Ayala, DO [address] [facility], [place] [address] COLONOSCOPY FLEXIBLE PROXIMAL DIAGNOSTIC 07/19/2024 11:30 AM EDT Office Visit Cardiology, [facility] 132 [place] [address] Ciro Saini, [address] [place] [address] 02/03/2025 1:00 PM EDT Office Visit Gynecology/Obstetr ics [facility] [address] [place] [address] Nelli Farrell CRNP [address] [place] [address] Scheduled Procedures Name Priority Associated Diagnoses Date/Ti [...] this encounter Medical Devices Implanted Type Area Teacher Emotionally Impaired Device Identifier Shelf Expiration Date Model / Serial / Lot Power Port 8fr Sngl Lumen Plas - [id number] Implanted:Qty : 1 on 01/05/2023 by Jai Malcolm Jr., MD at OR [facility] Right: Chest CR BARD : PERIPHERAL VASCULAR [id number] 07/08/2024 [id number] / / [id number] documented as of this encounter Visit Diagnoses [...] of Attor johann? No Care Teams Director External Communications Relationship Specialty Start Date End Date Lina Can MD [address] [place] [address] [place] [address] PCP - General Family Medicine 08/06/22 documented as of this encounter
--- OUTSIDE RECORDS SUMMARY | 2024-05-09 12:21 | External Medical Summary | Summary of Care ---
Author Name Unknown Organization [facility] Address [address] [place] [address] Phone [phone] Care Team Providers Care Wax Room Supervisor Name Role Phone Lina Can MD Primary Care Prov ider Reason for Visit * Reason Comments Outpatient Testing Encounter Details Date Type Department Care Team (Late st Contact Info) Description 03/11/2024 9:00 AM EST Laboratory Laboratory, [facility] 132 [place] [address] [facility] 132 [place] [address] Malignant neoplasm of sigmoid colon (HCC) Allergies Active Allergy Reactions Criticality Noted Date Comments Amoxicillin-Pot Clavulanate 07/13/19 GI upset Doxycycline 07/12/2022 GI upset Oxaliplatin Flushing High 07/27/2023 Shortness of breath Metoclopramide Hives 08/10/2022 documented as of this encounter (statuses as of 03/11/2024) Medications Acetaminophen 500 MG Oral Tablet (Tylenol [...] as of this encounter (statuses as of 03/11/2024) Active Problems Problem Noted Date Diagnosed Date [...] as of this encounter (statuses as of 03/11/2024) Immunizations No known immunizationsdocumented as of this [...] Assessment Author No 11/25/2022 5:16 PM EDT Steve aRmirez RN * Are you blind or do you have serious difficulty seeing, even when wearing glasses? Answer Date of Assessment Author No 11/25/2022 5:16 PM COOPERT Steve Ramirez RN * Do you have serious difficulty walking or climbing stairs? (5 years old or older) Answer Date of Assessment Author No 11/25/2022 5:16 PM COOPERT Steve Ramirez RN * Do you have difficulty dressing or bathing? (5 years old or older) Answer Date of Assessment Author No 11/25/2022 5:16 PM EDT Steve Ramirez RN * Because of a physical, mental, or emotional condition, do you have difficulty doing errands alone such as visiting a doctors office or shopping? (15 years old or older) Answer Date of Assessment Author No 11/25/2022 5:16 PM EDT Steve Ramirez RN documented as of this encounter Mental Status * Because of a physical, mental, or emotional condition, do you have serious difficulty concentrating, remembering, or making decisions? (5 years old or older) Answer Entry Date Author No 11/25/2022 5:16 PM Steve Milton RN documented in this encounter Plan of Treatment Upcoming Encounters Date Type Department Care Team (Late st Contact Info) Description 03/12/2024 8:30 AM EST Office Visit Hematology/Oncolog y [facility] [address] [place] [phone] Alisia [place] CRNP 400 [place] [address] 03/12/2024 9:00 AM EST Hem/Onc Treatment Hematology/Oncolog y Treatment, [place] [address] [place] [phone] Nasreen, Chair 7 Hem Onc [facility] [address] [place] [address] 03/25/2024 9:00 AM EST Laboratory Laboratory, [facility] 132 [facility] Zak [place] [phone] Terrance Long 132 [facility] TIA [place] [address] 03/26/2024 9:15 AM EST Office Visit Hematology/Oncolog y [facility] [address] [place] [phone] Chandni Almonte MD [address] [place] [address] 03/26/2024 12:00 PM EST Hem/Onc Treatment Hematology/Oncolog y Treatment, [place] [address] [place] [phone] Park, Chair 5 Hem Onc [address] [place] [address] 04/11/2024 2:00 PM EST Office Visit Urology Ashlie Louise [address] [place] [address] Manas Marie MD 27 [place] [address] 05/28/2024 7:30 AM EST Hospital Encounter OR [facility], Operating Room, [facility] - 4th Floor 400 [facility] [place] [phone] Timoteo Ayala, DO [address] [place] [address] 05/28/2024 7:30 AM EST - 05/28/2024 8:16 AM EST Surgery OR [facility], Operating Room, [facility] - 4th Floor 400 [facility] [place] [address] Timoteo Ayala, DO [address] [place] [address] COLONOSCOPY FLEXIBLE PROXIMAL DIAGNOSTIC 07/19/2024 11:30 AM EDT Office Visit Cardiology, [facility] [address] [place] [address] Ciro Saini, DO [address] [place] [address] 02/03/2025 1:00 PM EDT Office Visit Gynecology/Obstetr ics [facility] [address] [place] [address] Back[place], Nelli Fenton, SANDRA [address] [place] [address] Pending Results Name Type Priority Associated Diagnoses Date /Time MAGNESIUM Lab STAT Malignant neoplasm of sigmoid colon (HCC) 03/11/2024 9:08 AM EST CBC WITH WBC DIFFERENTIAL Lab STAT Malignant neoplasm of sigmoid colon (HCC) 03/11/2024 9:08 AM EST COMPREHENSIVE METABOLIC PANEL Lab STAT Malignant neoplasm of sigmoid colon (HCC) 03/11/2024 9:08 AM EST CBC Lab STAT Malignant neoplasm of sigmoid colon (HCC) 03/11/2024 9:08 AM EST DIFFERENTIAL, AUTOMATED Lab STAT Malignant neoplasm of sigmoid colon (HCC) 03/11/2024 9:08 AM EST URINALYSIS, REFLEX TO MICROSCOPIC Lab STAT Malignant neoplasm of sigmoid colon (HCC) 03/11/2024 9:18 AM EST Scheduled Procedures Name Priority Associated Diagnoses Date/Ti me COLONOSCOPY FLEXIBLE PROXIMAL DIAGNOSTIC Cancer of sigmoid colon (HCC) 05/28/2024 7:30 AM EST PRE / POST CARE Malignant neoplasm of sigmoid colon (HCC) 11/03/2023 9:00 AM EDT Health Maintenance Due Date Last Done Comments Pneumococcal Vaccine: 65+ Years (1 of 2 - PCV) 1961 Hepatitis C Screening 1973 DTap/Tdap Vaccines (1 - Tdap) 1974 Cologuard 02/03/2000 Fecal Occult Blood Test [...] encounter Medical Devices Implanted Type Area Supervisor Engines Road Device Identifier Shelf Expiration Date Model / Serial / Lot Power Port 8fr Sngl Lumen Plas - [id number] Implanted:Qty : 1 on 01/05/2023 by Jai Malcolm Jr., MD at OR [facility] Right: Chest CR BARD : PERIPHERAL VASCULAR [id number] 07/08/2024 [id number] / / [id number] documented as of this encounter Visit Diagnoses [...] Power of Attor johann? No Care Teams Wax Room Supervisor Relationship Specialty Start Date End Date Lina Can MD [address] [place] [address] [place] [address] PCP - General Family Medicine 08/06/22 documented as of this encounter
--- OUTSIDE RECORDS SUMMARY | 2024-05-09 12:21 | External Medical Summary ---
Author Name Unknown Address Unknown Organization K01:[facility] [address] [place] [address] Laboratory Report Ordering Provider Test Date Status DANNIELLE OLVERA 03/18/2024 09:07:53 Final Observation Date Value Abnormality Reference (Units ) Status Magnesium 03/18/2024 09:07:53 2.2 1.5-2.6 (m g/dL) Final Performing Location [facility] - [address] [place] [address]
--- OUTSIDE RECORDS SUMMARY | 2024-05-09 12:21 | External Medical Summary ---
Author Name Unknown Address Unknown Organization K0G:[facility] - [address] [place] [address] Laboratory Report Ordering Provider Test Date Status DANNIELLE OLVERA 03/18/2024 09:07:53 Final Observation Date Value Abnormality Reference (Units ) Status SYNC LEUKOCYTES IN BLOOD BY AUTOMATED COUNT 03/18/2024 09:07:53 11.34 Above high normal 4.00-10.80 (K/uL) Final Segs 03/18/2024 09:07:53 80.0 Above high normal 40.0-75.0 (%) Final Lymphs % 03/18/2024 09:07:53 11.7 Below low normal 18.0-42.0 (%) Final Monos 03/18/2024 09:07:53 6.8 1.0-11.0 (%) Final Eosinophils 03/18/2024 09:07:53 1.1 0.0-6.0 (%) Final Basos 03/18/2024 09:07:53 0.4 0.0-2.0 (%) Final Absolute Segs 03/18/2024 09:07:53 9.08 Above high normal 1.80-7.70 (K/uL) Final Lymphs, absolute 03/18/2024 09:07:53 1.33 1.00-4.80 (K/ul) Final Monos, Abs 03/18/2024 09:07:53 0.77 0.00-1.10 (K/uL) Final Eos, Abs 03/18/2024 09:07:53 0.12 0.00-0.70 (K/uL) Final Basos, Abs 03/18/2024 09:07:53 0.04 0.00-0.20 (K/uL) Final Performing Location [facility] 0 - [address] [place] [address]
--- OUTSIDE RECORDS SUMMARY | 2024-05-09 12:21 | External Medical Summary ---
Author Name Unknown Address Unknown Organization K0G:[facility] - [address] [place] [address] Laboratory Report Ordering Provider Test Date Status DANNIELLE OLVERA 03/18/2024 09:27:12 Final Observation Date Value Abnormality Reference (Units ) Status RBC, Urine 03/18/2024 09:27:12 3-5 Abnormal 0-2 (/HPF) Final WBC, Urine 03/18/2024 09:27:12 0-2 0-2 (/HPF) Final Bacteria [#/area] in Urine sediment by Microscopy high power field 03/18/2024 09:27:12 0-25 0-25 (/HPF) Final Performing Location [facility] - [address] [facility] [address]
--- OUTSIDE RECORDS SUMMARY | 2024-05-09 12:21 | External Medical Summary | Summary of Care ---
Author Name Unknown Organization [facility] Address [address] [place] [address] Phone [phone] Care Team Providers Care Pipe Fitter Gas Pipe Name Role Phone Lina Can MD Primary Care Prov ider Reason for Visit * Reason Comments Outpatient Testing Encounter Details Date Type Department Care Team (Late st Contact Info) Description 03/18/2024 9:10 AM EST Laboratory Laboratory, [facility] [address] [place] [address] [facility] 132 [facility] [address] Malignant neoplasm of sigmoid colon (HCC) [...] 3 mL/hr over 46 hours intravenously continuous. 08700 mg 03/14/20 24 025 Active documented as of [...] Description 03/19/2024 12:00 PM EST Office Visit Hematology/Oncolog y [facility] 200 [facility] [place] [phone] Alisia Birmingham CRNP [address] [place] [address] [place] [address] 03/19/2024 1:00 PM EST Hem/Onc Treatment Hematology/Oncolog y Treatment, [place] [address] [facility] [address] [address] [place] [address] Nasreen, Chair 1 Hem Onc [facility] 200 [facility] [place] [address] 03/25/2024 9:00 AM EST Laboratory Laboratory, [address] [place] [address] Terrance Long [address] [place] [address] 03/26/2024 9:15 AM EST Office Visit Hematology/Oncolog y [place] Nasreen [place] [address] [place] [address] Chandni Almonte MD [address] [place] [address] 03/26/2024 12:00 PM EST Hem/Onc Treatment Hematology/Oncolog y Treatment, [place] [address] [place] [address] Nasreen, Chair 5 Hem Onc Scenery [address] [place] [address] 04/11/2024 2:00 PM EST Office Visit Urology Ashlie Louise [address] [place] [address] Manas Marie MD 27 [place] [address] 05/06/2024 9:15 AM EST Scheduled Telephone General Surgery Ashlie Louise [address] [place] [address] Ashlie, Nurse Gen Surg Rhonda Crespo RN [address] Crespo [facility] 270 [place] [address] 05/16/2024 7:30 AM EST Hospital Encounter [facility], Operating Room, [facility] - 4th Floor [address] [place] [phone] Timoteo Ayala, DO [address] [facility] [address] 05/16/2024 7:30 AM EST - 05/16/2024 8:16 AM EST Surgery OR [facility], Operating Room, [facility] - 4th Floor 400 [facility] [place] [address] Timoteo Ayala, DO [address] [facility] [place] [address] COLONOSCOPY FLEXIBLE PROXIMAL DIAGNOSTIC 07/19/2024 11:30 AM EDT Office Visit Cardiology, [facility] [address] [facility] [place] [address] Ciro Saini, [address] [place] [address] 02/03/2025 1:00 PM EDT Office Visit Gynecology/Obstetr ics [facility] [address] [place] [address] Nelli Farrell CRNP [address] [place] [address] Pending Results Name Type Priority Associated Diagnoses Date /Time MAGNESIUM Lab STAT Malignant neoplasm of sigmoid colon (HCC) 03/18/2024 9:07 AM EST COMPREHENSIVE METABOLIC PANEL Lab STAT Malignant neoplasm of sigmoid colon (HCC) 03/18/2024 9:07 AM EST Scheduled Procedures Name Priority Associated [...] this encounter Medical Devices Implanted Type Area Film Editor Supervisor Device Identifier Shelf Expiration Date Model / Serial / Lot Power Port 8fr Sngl Lumen Plas - [id number] Implanted:Qty : 1 on 01/05/2023 by Jai Malcolm Jr., MD at OR [facility] Right: Chest CR BARD : PERIPHERAL VASCULAR [id number] 07/08/2024 [id number] / / [id number] documented as of this encounter Procedures Procedure Name Priority Date/Time Associated Diagnosis Comments DIFFERENTIAL, AUTOMATED STAT 03/18/2024 9:07 AM EST Malignant neoplasm of sigmoid colon (HCC) CBC STAT 03/18/2024 9:07 AM EST Malignant neoplasm of sigmoid colon (HCC) CBC STAT 03/18/2024 9:07 AM EST Malignant neoplasm of sigmoid colon (HCC) documented in this encounter Results * (ABNORMAL) DIFFERENTIAL, AUTOMATED (03/18/2024 9:07 AM EST) WBC 11.34(H) 4.00 - 10.80 K/uL 03/18/2024 9:17 AM EST [facility] [place] 57-10 Neutrophils % 80.0(H) 40.0 - 75.0 % 03/18/2024 9:17 AM EST [facility] [place] 57-10 Lymphocytes % 11.7(L) 18.0 - 42.0 % 03/18/2024 9:17 AM EST [facility] [place] 57-10 Monocytes % 6.8 1.0 - 11.0 % 03/18/2024 9:17 AM EST [facility] [place] 57-10 Eosinophils % 1.1 0.0 - 6.0 % 03/18/2024 9:17 AM EST [facility] [place] 57-10 Basophils % 0.4 0.0 - 2.0 % 03/18/2024 9:17 AM EST [facility] [place] 57-10 Absolute Neutrophils 9.08(H) 1.80 - 7.70 K/uL 03/18/2024 9:17 AM EST [facility] [place] 57-10 Absolute Lymphocytes 1.33 1.00 - 4.80 K/ul 03/18/2024 9:17 AM EST [facility] [place] 57-10 Absolute Monocytes 0.77 0.00 - 1.10 K/uL 03/18/2024 9:17 AM EST [facility] [place] 57-10 Absolute Eosinophils 0.12 0.00 - 0.70 K/uL 03/18/2024 9:17 AM EST [facility] [place] 57-10 Absolute Basophils 0.04 0.00 - 0.20 K/uL 03/18/2024 9:17 AM EST [facility] [place] 57-10 Blood Venous blood specimen / Unknown Venipuncture / Unknown 03/18/2024 9:07 AM EST 03/18/2024 9:07 AM EST us Chandni Almonte MD LAB BLOOD ORDERABLES Fin al Result [facility] [place] 57-10 [address] [place] [address] * (ABNORMAL) CBC (03/18/2024 9:07 AM EST) Pathologist [facility] WBC 11.34(H) 4.00 - 10.80 K/uL 03/18/2024 9:17 AM EST [facility] [place] 57-10 RBC 3.54 3.85 - 5.15 M/uL 03/18/2024 9:17 AM EST [facility] [place] 57-10 HGB 12.4 12.0 - 15.3 g/dL 03/18/2024 9:17 AM EST [facility] [place] 57-10 HCT 37.4 36.0 - 45.2 % 03/18/2024 9:17 AM EST [facility] [place] 57-10 MCV 105.6 81.5 - 97.5 fL 03/18/2024 9:17 AM EST [facility] [place] 57-10 MCH 35.0 27.0 - 34.0 pg 03/18/2024 9:17 AM EST [facility] [place] 57-10 MCHC 33.2 32.0 - 36.0 g/dL 03/18/2024 9:17 AM EST [facility] [place] 57-10 RDW 17.5 11.5 - 15.5 % 03/18/2024 9:17 AM EST [facility] [place] 57-10 PLT 121(L) 140 - 400 K/uL 03/18/2024 9:17 AM EST [facility] [place] 57-10 MPV 10.7 6.6 - 11.1 fL 03/18/2024 9:17 AM EST [facility] [place] 57-10 Blood Venous blood specimen / Unknown Venipuncture / Unknown 03/18/2024 9:07 AM EST 03/18/2024 9:07 AM EST Chandni Almonte MD LAB BLOOD ORDERABLES Fin al Result Performing Organization Address City/State/[facility] Co de Phone Number LABORATORY [place] 57-10 [address] [place] [address] documented in this encounter Visit Diagnoses Diagnosis [...] Power of Attor johann? No Care Teams Pipe Fitter Gas Pipe Relationship Specialty Start Date End Date Lina Can MD [address] [place] [address] [place] [phone] PCP - General Family Medicine 08/06/22 documented as of this encounter
--- OUTSIDE RECORDS SUMMARY | 2024-05-09 12:21 | External Medical Summary ---
Author Name Unknown Address Unknown Organization K0G:[facility] [place] 57-10 - [address] [place] [address] Laboratory Report Ordering Provider Test Date Status DANNIELLE OLVERA 03/18/2024 09:07:53 Final Observation Date Value Abnormality Reference (Units ) Status BUN 03/18/2024 09:07:53 8 6-20 (mg/dL) Final Creatinine 03/18/2024 09:07:53 0.7 0.5-1.0 (mg/dL) Final Glomerular filtration rate/1.73 sq M.predicted [Volume Rate/Area] in Serum, Plasma or Blood by Creatinine-based formula (CKD-EPI) 03/18/2024 09:07:53 >90 >=60 (mL/min) Final eGFR is calculated based on the CKD-EPI 2020 equation. Sodium 03/18/2024 09:07:53 135 135-146 (m mol/L) Final Potassium 03/18/2024 09:07:53 4.3 3.5-5.1 (m mol/L) Final Cl 03/18/2024 09:07:53 98 98-107 (mm ol/L) Final CO2 03/18/2024 09:07:53 27 22-32 (mmo l/L) Final Anion gap 03/18/2024 09:07:53 10 7-15 (mmol /L) Final Glucose 03/18/2024 09:07:53 189 Above high normal 70 -120 (mg/dL) Final Albumin 03/18/2024 09:07:53 4.4 3.8-5.0 (g /dL) Final AST (Aspartate aminotransferase) 03/18/2024 09:07:53 21 10-35 (U/L) Fin al Alk Phos 03/18/2024 09:07:53 319 Above high normal 35 -130 (U/L) Final Bilirubin, Total 03/18/2024 09:07:53 0.7 <=1 .2 (mg/dL) Final Calcium 03/18/2024 09:07:53 9.6 8.4-10.2 ( mg/dL) Final Protein 03/18/2024 09:07:53 7.4 6.0-8.3 (g /dL) Final ALT (Alanine aminotransferase) 03/18/2024 09:07:53 10 10-35 (U/L) Shubham ornelas Performing Location LABORATORY [place] 57-1 0 - [address] [facility] [address]
--- OUTSIDE RECORDS SUMMARY | 2024-05-09 12:21 | External Medical Summary | Summary of Care ---
Author Name Unknown Organization [facility] Address [address] [place] [address] Phone [phone] Care Team Providers Care Voyage Management System Operator Name Role Phone Lina Can MD Primary Care Prov ider Reason for Visit * Reason Comments Chemotherapy C5D1 FolFiri * Episode Based Medications (Routine) - Authorized Specialty Diagnoses / Procedures Referred By Contac t Referred To Contact Diagnoses Encounter for antineoplastic chemotherapy Malignant neoplasm of sigmoid colon (HCC) Procedures ID LEUCOVORIN CALCIUM INJECTION ID PALONOSETRON HCL ID FLUOROURACIL INJECTION ID IRINOTECAN INJECTION ID INJ., ZIRABEV, 10 MG Chandni Almonte MD [address] [place] [address] [place] [address] Phone: tel: fax: Hematology/Oncology Treatment, [address] [address] Phone: tel: fax: Referral ID Status Reason Start Date Expiration Date V isits Requested Visits Authorized [id number] Authorized 11/22/2023 11/21/2024 999 999 Encounter Details Date Type Department Care Team (Latest Contact Info) Description 02/27/2024 9:15 AM EST Hem/Onc Treatment Hematology/Oncolog y Treatment, [address] [address] Nasreen Chair 8 Hem Onc [address] [place] [address] Encounter for antineoplastic chemotherapy*; [...] 12:00 PM EST Office Visit Hematology/Oncolo gy [facility] Nasreen [place] 200 [facility] [place] [phone] Alisia Birmingham CRNP [address] [place], [place] [address] [address] 03/19/2024 1:00 PM EST Hem/Onc Treatment Hematology/Oncolo gy Treatment, [place] 200 [facility] [place] [phone] Nasreen, Chair 1 Hem Onc [address] [place] [address] Encounter for antineoplastic chemotherapy*; Malignant neoplasm of sigmoid colon (HCC) 03/25/2024 9:00 AM EST Laboratory [facility], [facility] [place] 132 [facility] [place] [phone] Terrance Long 132 [facility] [address] 03/26/2024 9:15 AM EST Office Visit Hematology/Oncolo gy [facility] Nasreen [place] 200 [facility] [place] [phone] Chandni Almonte MD [address] [place] [address] 03/26/2024 12:00 PM EST Hem/Onc Treatment Hematology/Oncolo gy Treatment, [place] [address] [place] [address] Park, Chair 5 Hem Onc [address]enery [address] [place] [address] 04/11/2024 2:00 PM EST Office Visit Urology Ashlie Louise [address] [place] [address] Manas Marie MD [address] [place] [address] 05/06/2024 9:15 AM EST Scheduled Telephone General Surgery Ashlie Louise [address] [place] [address] Ashlie, Nurse Gen Surg Rhonda Crespo RN [address] [place] [address] 05/16/2024 7:30 AM EST Hospital Encounter OR GL, Operating Room, [facility] - 4th Floor [address] [place] [address] Timoteo Ayala, DO [address] [place] [facility] [address] 05/16/2024 7:30 AM EST - 05/16/2024 8:16 AM EST Surgery OR [facility], Operating Room, [facility] - 4th Floor [address] [place] [phone] Timoteo Ayala, DO [address] [place] [facility] [address] COLONOSCOPY FLEXIBLE PROXIMAL DIAGNOSTIC 07/19/2024 11:30 AM EDT Office Visit Cardiology, [facility] [address] [place] [address] Ciro Saini, [address] [place] [address] 02/03/2025 1:00 PM EDT Office Visit Gynecology/Obstet stevo Long [address] [place] [address] Nelli Farrell CRNP [address] [place] [address] Scheduled Procedures Name Priority Associated Diagnoses Date/Ti [...] this encounter Medical Devices Implanted Type Area Production Or Plant Engineer Device Identifier Shelf Expiration Date Model / Serial / Lot Power Port 8fr Sngl Lumen Plas - [id number] Implanted:Qty : 1 on 01/05/2023 by Jai Malcolm Jr., MD at OR [facility] Right: Chest CR BARD : PERIPHERAL VASCULAR [id number] 07/08/2024 [id number] / / [id number] documented as of this encounter Visit Diagnoses [...] Power of Attor johann? No Care Teams Voyage Management System Operator Relationship Specialty Start Date End Date Lina Can MD [address] [place] [address] [place] [address] PCP - General Family Medicine 08/06/22 documented as of this encounter
--- OUTSIDE RECORDS SUMMARY | 2024-05-09 12:21 | External Medical Summary | Summary of Care ---
Author Name Unknown Organization [facility] Address [address] [place] [address] Phone [phone] Care Team Providers Care Pickle Solution Maker Name Role Phone Lina Can MD Primary Care Prov ider Reason for Visit * Reason Comments Outpatient Testing Encounter Details Date Type Department Care Team (Late st Contact Info) Description 03/18/2024 9:10 AM EST Laboratory Laboratory, [facility] [address] [place] [address] [facility] 132 [place] [address] Malignant neoplasm of sigmoid colon (HCC) [...] 6 MG/0.6ML Subcutaneous Solution Prefilled Syringe (Pegfilgrastim)I ndications:Jaun R mcclure neoplasm of sigmoid colon (HCC),Prevention [...] 3 mL/hr over 46 hours intravenously continuous. [address] mg 03/14/20 24 025 Active documented as [...] 12:00 PM EST Office Visit Hematology/Oncolog y [facility] 200 [facility] [place] [phone] Alisia Birmingham CRNP [address] [place] [address] [place] [address] 03/19/2024 1:00 PM EST Hem/Onc Treatment Hematology/Oncolog y Treatment, [place] 200 [facility] [place] [address] Nasreen, Chair 1 Hem Onc [facility] 200 [facility] [place] [address] 03/25/2024 9:00 AM EST Laboratory Laboratory, [address] [place] [address] Terrance Long [address] [place] [address] 03/26/2024 9:15 AM EST Office Visit Hematology/Oncolog y [place] Nasreen [place] [address] [place] [address] Chandni Almonte MD [address] [place] [address] 03/26/2024 12:00 PM EST Hem/Onc Treatment Hematology/Oncolog y Treatment, [place] [address] [place] [address] Nasreen, Chair 5 Hem Onc Scenery [address] [place] [address] 04/11/2024 2:00 PM EST Office Visit Urology Ashlie Louise [address] [place] [address] Manas Marie MD 27 [place] [address] 05/06/2024 9:15 AM EST Scheduled Telephone General Surgery Ashlie Louise [address] [place] [address] Ashlie, Nurse Gen Surg Rhonda Crespo RN 27 Rhonda Crespo [facility] 270 [place] [address] 05/16/2024 7:30 AM EST Hospital Encounter OR [facility], Operating Room, [facility] - 4th Floor 400 [place] [phone] Timoteo Ayala, DO [address] [facility] [address] 05/16/2024 7:30 AM EST - 05/16/2024 8:16 AM EST Surgery OR [facility], Operating Room, [facility] - 4th Floor 400 [facility] [place] [phone] Timoteo Ayala, DO [address] [facility] [place] [address] COLONOSCOPY FLEXIBLE PROXIMAL DIAGNOSTIC 07/19/2024 11:30 AM EDT Office Visit Cardiology, [facility] [address] [facility] [place] [address] Ciro Saini, [address] [place] [address] 02/03/2025 1:00 PM EDT Office Visit Gynecology/Obstetr ics [facility] [address] [facility] [place] [address] Nelli Farrell CRNP [address] [place] [address] Pending Results Name Type Priority Associated Diagnoses Date /Time MAGNESIUM Lab STAT Malignant neoplasm of sigmoid colon (HCC) 03/18/2024 9:07 AM EST COMPREHENSIVE METABOLIC PANEL Lab STAT Malignant neoplasm of sigmoid colon (HCC) 03/18/2024 9:07 AM EST URINALYSIS, REFLEX TO MICROSCOPIC Lab STAT Malignant neoplasm of sigmoid colon (HCC) 03/18/2024 9:27 AM EST Scheduled Procedures Name Priority Associated [...] this encounter Medical Devices Implanted Type Area Industrial Automation Engineer Device Identifier Shelf Expiration Date Model / Serial / Lot Power Port 8fr Sngl Lumen Plas - [id number] Implanted:Qty : 1 on 01/05/2023 by Jai Malcolm Jr., MD at OR [facility] Right: Chest CR BARD : PERIPHERAL VASCULAR [id number] 07/08/2024 [id number] / / [id number] documented as of this encounter Procedures Procedure [...] al Result LAB[facility]ATORY [place] 57-10 132 [facility] [place] [address] * (ABNORMAL) CBC (03/18/2024 9:07 AM EST) Pathologist [facility] WBC 11.34(H) 4.00 - 10.80 K/uL 03/18/2024 9:17 AM EST LAB[facility] [place] 57-10 RBC 3.54 3.85 - 5.15 M/uL 03/18/2024 9:17 AM EST LAB[facility] [place] 57-10 HGB 12.4 12.0 - 15.3 g/dL 03/18/2024 9:17 AM EST [facility] [place] 57-10 HCT 37.4 36.0 - 45.2 % 03/18/2024 9:17 AM EST [facility] MCV 105.6 81.5 - 97.5 fL 03/18/2024 9:17 AM EST [facility] [place] 57-10 MCH 35.0 27.0 - 34.0 pg 03/18/2024 9:17 AM EST [facility] [place] 57-10 MCHC 33.2 32.0 - 36.0 g/dL 03/18/2024 9:17 AM EST LAB[facility] [place] 57-10 RDW 17.5 11.5 - 15.5 % 03/18/2024 9:17 AM EST [facility]10 PLT 121(L) 140 - 400 K/uL 03/18/2024 9:17 AM EST [facility]10 MPV 10.7 6.6 - 11.1 fL 03/18/2024 9:17 AM EST [facility]10 Blood Venous blood specimen / Unknown Venipuncture / Unknown 03/18/2024 9:07 AM EST 03/18/2024 9:07 AM EST Chandni Almonte MD LAB BLOOD ORDERABLES Fin al Result Performing Organization Address City/State/[facility] Co de Phone Number LABORATORY [place] 57-10 [address] [place] [address] documented in this encounter Visit Diagnoses Diagnosis [...] Power of Attor johann? No Care Teams Pickle Solution Maker Relationship Specialty Start Date End Date Lina Can MD [address] [place] [address] [place] Patel [address] PCP - General Family Medicine 08/06/22 documented as of this encounter
--- OUTSIDE RECORDS SUMMARY | 2024-05-09 12:21 | External Medical Summary ---
Author Name Unknown Address Unknown Organization K0G:LABORATORY [place] 57-10 - [address] [place] [address] Laboratory Report Ordering Provider Test Date Status DANNIELLE OLVERA 03/18/2024 09:27:12 Final Observation Date Value Abnormality Reference (Units ) Status Color of Urine by Auto 03/18/2024 09:27:12 Yellow Light Yellow, Yellow, Dark Yellow Final Clarity, Urine 03/18/2024 09:27:12 Clear Clear Final Glucose [Mass/volume] in Urine by Automated test strip 03/18/2024 09:27:12 Negative Negative (mg/dL) Final Bilirubin.total [Presence] in Urine by Automated test strip 03/18/2024 09:27:12 Negative Negative Final Ketones [Mass/volume] in Urine by Automated test strip 03/18/2024 09:27:12 Negative Negative (mg/dL) Final Specific gravity, Urine 03/18/2024 09:27:12 1.010 1.003-1.030 Final Hemoglobin [Presence] in Urine by Automated test strip 03/18/2024 09:27:12 Trace Abnormal Negative Final pH, Urine 03/18/2024 09:27:12 5.5 5.0-7.5 (Units) Final Protein [Mass/volume] in Urine by Automated test strip 03/18/2024 09:27:12 Negative Negative (mg/dL) Final Urobilinogen [Mass/volume] in Urine by Automated test strip 03/18/2024 09:27:12 0.2 0.2, 1.0 (mg/dL) Final Nitrite [Presence] in Urine by Automated test strip 03/18/2024 09:27:12 Negative Negative Final Leukocyte esterase [Presence] in Urine by Automated test strip 03/18/2024 09:27:12 Negative Negative Final Performing [facility] 0 - [address] [place] [address]
--- OUTSIDE RECORDS SUMMARY | 2024-05-09 12:21 | External Medical Summary | Summary of Care ---
Author Name Unknown Organization [facility] Address [address] [place] [address] Phone [phone] Care Team Providers Care Finish Sander Name Role Phone Lina Can MD Primary Care Prov ider Reason for Visit * Reason Onset Date Comments Surgery 03/14/2024 Encounter Details Date Type Department Care Team (Late st Contact Info) Description 03/14/2024 Telephone General Surgery Ashlie Louise [address] [place] [address] Timoteo Ayala, DO [address] [place] [address] Surgery Allergies Active Allergy Reactions Criticality Noted Date Comments Amoxicillin-Pot Clavulanate Nausea/vomiting 07/12/2022 GI upset Doxycycline Nausea/vomiting 07/12/2022 GI upset Oxaliplatin Flushing High 07/27/2023 Shortness of breath Metoclopramide Hives 08/10/2022 documented as of this encounter (statuses as of 03/14/2024) Medications Acetaminophen 500 MG Oral Tablet (Tylenol [...] 3 mL/hr over 46 hours intravenously continuous. 79815 mg 03/14/20 24 025 Active documented as of this encounter (statuses as of 03/14/2024) Active Problems Problem Noted Date Diagnosed Date [...] as of this encounter (statuses as of 03/14/2024) Immunizations No known immunizationsdocumented as of this [...] Description 03/18/2024 9:10 AM EST [facility] [address] Terrance Long 132 [facility] [place], [place] [address] 03/19/2024 12:00 PM EST Office Visit Hematology/Oncolog y Scenery Nasreen [place] [address] [place], [place] [phone] Alisia Birmingham CRNP 400 [facility] [place] [address] 03/19/2024 1:00 PM EST Hem/Onc Treatment Hematology/Oncolog y Treatment, [place] [address] [place], [place] [phone] Nasreen, Chair 1 Hem Onc Scenery [address] [place], [place] [address] 03/25/2024 9:00 AM EST [facility] [place] [phone] Terrance Long [facility], [place] [address] 03/26/2024 9:15 AM EST Office [facility]reen [place] [address] [place], [place] [phone] Chandni Almonte MD [address] [place], [place] [address] 03/26/2024 12:00 PM EST Hem/Onc Treatment Hematology/Oncolog y Treatment, [place] [address] [place], [place] [phone] Nasreen, Chair 5 Hem Onc Scenery [address] [place], [place] [address] 04/11/2024 2:00 PM EST Office Visit Urology Ashlie Louise [address] [place] [address] Manas Marie MD 27 [place] [address] 05/28/2024 7:30 AM EST Hospital Encounter OR [facility], Operating Room, [facility] - 4th Floor [address] [place] [phone] Timoteo Ayala, DO [address] [place] [address] 05/28/2024 7:30 AM EST - 05/28/2024 8:16 AM EST Surgery OR [facility], Operating Room, [facility] - 4th Floor [address] [place] [phone] Timoteo Ayala, DO [address] [place] [address] COLONOSCOPY FLEXIBLE PROXIMAL DIAGNOSTIC 07/19/2024 11:30 AM EDT Office Visit Cardiology, [facility] [address] [place] [address] Ciro Saini, DO [address] [place] [address] 02/03/2025 1:00 PM EDT Office Visit Gynecology/Obstetr ics [facility] [address] [place] [address] Nelli Farrell CRNP [address] [place] [address] Scheduled Procedures Name Priority Associated Diagnoses Date/Ti [...] this encounter Medical Devices Implanted Type Area Central Supply Supervisor Device Identifier Shelf Expiration Date Model / Serial / Lot Power Port 8fr Sngl Lumen Plas - [id number] Implanted:Qty : 1 on 01/05/2023 by Jai Malcolm Jr., MD at [facility] Right: Chest CR BARD : PERIPHERAL VASCULAR [id number] 07/08/2024 [id number] / / [id number] documented as of this encounter Advance Directives [...] Power of Attor johann? No Care Teams Finish Sander Relationship Specialty Start Date End Date Lina Can MD [address] [place] [address] [place] [address] PCP - General Family Medicine 08/06/22 documented as of this encounter
--- OUTSIDE RECORDS SUMMARY | 2024-05-09 12:21 | External Medical Summary ---
Author Name Unknown Address Unknown Organization [facility] [address] [place] [address] Laboratory Report Ordering Provider Test Date Status DANNIELLE OLVERA 03/18/2024 09:07:53 Final Observation Date Value Abnormality Reference (Units ) Status WBC, Total 03/18/2024 09:07:53 11.34 Above high normal 4 .00-10.80 (K/uL) Final RBC 03/18/2024 09:07:53 3.54 3.85-5.15 (M/uL) Final Hemoglobin 03/18/2024 09:07:53 12.4 12.0-15.3 (g/dL) Final HCT 03/18/2024 09:07:53 37.4 36.0-45.2 (%) Final MCV 03/18/2024 09:07:53 105.6 81.5-97.5 (fL) Final MCH 03/18/2024 09:07:53 35.0 27.0-34.0 (pg) Final MCHC 03/18/2024 09:07:53 33.2 32.0-36.0 (g/dL) Final RDW 03/18/2024 09:07:53 17.5 11.5-15.5 (%) Final Platelets 03/18/2024 09:07:53 121 Below low normal 140 -400 (K/uL) Final MPV 03/18/2024 09:07:53 10.7 6.6-11.1 ( fL) Final Performing Location [facility] [place] [address]
--- OUTSIDE RECORDS SUMMARY | 2024-05-09 12:21 | External Medical Summary | Summary of Care ---
Author Name Unknown Organization [facility] Address [address] [place] [address] Phone [phone] Care Team Providers Care Stunner And Shackler Name Role Phone Lina Can MD Primary Care Prov ider Encounter Details Date Type Department Care Team (Late st Contact Info) Description 03/11/2024 Refill Hematology/Oncology Treatment, [place] [address] [place] [address] Chandni Almonte MD 200 [place] [address] Malignant neoplasm of sigmoid colon (HCC)* Allergies [...] Telephone Encounter - Cezar Lucas OSA - 03/11/2024 11:15 AM EST Appts scheduled. Pt aware * Telephone Encounter - Tereza Gray RN - 03/11/2024 10:25 AM EST Plt 83- per Dr Almonte, delay x1 week. K 3.3- per Dr Almonte, patient to start 10mEq KCl daily. Called patient- she verbalized understanding. She notes that she does have blood on the tissue whenshe blows her nose. Her nose feels like it is running all the time, she denies dry air in her home or allergies. No nose bleeds or other signs of bleeding. Dr Almonte: YESI on above, please sign prescription. Scheduling: - please call patient to reschedule follow up/ treatment from tomorrow to next Monday - patient will need repeat labs "CBCd, CMP, mag, urine" the day prior in AM at Thanks! documented in this encounter Plan of Treatment Upcoming Encounters Date Type Department Care Team (Late st Contact Info) Description 03/18/2024 9:10 AM EST [facility] 132 [facility] [place] [phone] Terrance Long 132 [facility] [address] 03/19/2024 12:00 PM EST Office Visit Hematology/Oncolog y Scenery [facility] [place] [address] [place] [phone] Alisia Birmingham CRNP [address] [place] [address] [place] [address] 03/19/2024 1:00 PM EST Hem/Onc Treatment Hematology/Oncolog y [facility] [place] 200 [facility] Berta [place] [phone] Nasreen, Chair 1 Hem Onc Scenery [address] [place] [address] 03/25/2024 9:00 AM EST [facility] 132 [facility] [phone] Terrance Long 132 [facility] [address] 03/26/2024 9:15 AM EST Office Visit Hematology/Oncolog y Scenery Nasreen [place] [address] [place] [phone] Chandni Almonte MD [address] [place] [address] 03/26/2024 12:00 PM EST Hem/Onc Treatment Hematology/Oncolog y [facility] 200 [facility] Berta [place] [phone] Nasreen, Chair 5 Hem Onc Scenery [address] [place] [address] 04/11/2024 2:00 PM EST Office Visit Urology Ashlie Louise [address] [place] [address] Manas Marie MD [address] [place] [address] 05/28/2024 7:30 AM EST Hospital Encounter OR [facility], Operating Room, [facility] - 4th Floor 400 [facility] [place] [phone] Timoteo Ayala, DO [address] [place] [address] 05/28/2024 7:30 AM EST - 05/28/2024 8:16 AM EST Surgery OR [facility], Operating Room, [facility] - 4th Floor 400 [facility] [place] [phone] Timoteo Ayala, DO [address] [place] [address] COLONOSCOPY FLEXIBLE PROXIMAL DIAGNOSTIC 07/19/2024 11:30 AM EDT Office Visit Cardiology, [facility] [address] [place] [address] Ciro Saini, DO [address] [place] [address] 02/03/2025 1:00 PM EDT Office Visit Gynecology/Obstetr ics [facility] [address] [place] [address] Nelli Farrell CRNP [address] [place] [address] Scheduled Procedures Name Priority Associated Diagnoses Date/Ti [...] this encounter Medical Devices Implanted Type Area Instructor [employer] Device Identifier Shelf Expiration Date Model / Serial / Lot Power Port 8fr Sngl Lumen Plas - [id number] Implanted:Qty : 1 on 01/05/2023 by Jai Malcolm Jr., MD at OR [facility] Right: Chest CR BARD : PERIPHERAL VASCULAR [id number] 07/08/2024 [id number] / / [id number] documented as of this encounter Visit Diagnoses Diagnosis Malignant neoplasm of sigmoid colon (HCC)- Primary Malignant neoplasm of sigmoid colon Cancer of [...] Power of Attor johann? No Care Teams Stunner And Shackler Relationship Specialty Start Date End Date Lina Can MD [address] [place] [address] [place]el [phone] PCP - General Family Medicine 08/06/22 documented as of this encounter
--- OUTSIDE RECORDS SUMMARY | 2024-05-09 12:21 | External Medical Summary | Summary of Care ---
Author Name Unknown Organization [facility] Address [address] [place] [address] Phone [phone] Care Team Providers Care Department Of Mathematics Chair Name Role Phone Lina Can MD Primary [...] INJ., ZIRABEV, 10 MG Chandni Almonte MD [address] [place] [address] [place] [address] Phone: tel: fax: Hematology/Oncology Treatment, [address] [address] Phone: tel: fax: Referral ID Status Reason Start Date Expiration Date V isits Requested Visits Authorized [id number] Authorized 11/22/2023 11/21/2024 [id number] Encounter Details Date Type Department Care Team (Latest Contact Info) Description 02/27/2024 9:15 AM EST Hem/Onc Treatment Hematology/Oncolog y Treatment, [address] [address] Nasreen Chair 8 Hem [address] [place] [address] Encounter for antineoplastic chemotherapy*; Malignant neoplasm [...] 12:00 PM EST Office Visit Hematology/Oncolo gy [facility] Nasreen [place] 200 [facility] [place] [phone] Alisia Birmingham CRNP [address] [place], [place] [address]S[place] [address] 03/19/2024 1:00 PM EST Hem/Onc Treatment Hematology/Oncolo gy Treatment, [place] 200 [facility] [place] [phone] Nasreen, Chair [address] [place] [address] Encounter for antineoplastic chemotherapy*; Malignant neoplasm of sigmoid colon (HCC) 03/25/2024 9:00 AM EST [facility] [place] 132 [facility] [place] [phone] Terrance Long 132 [facility] [place] [address] 03/26/2024 9:15 AM EST Office Visit Hematology/Oncolo gy [facility] Nasreen [place] 200 [facility] [place] [phone] Chandni Almonte MD [address] [place] [address] 03/26/2024 12:00 PM EST Hem/Onc Treatment Hematology/Oncolo gy Treatment, [place] [address] [place] [address] Park, Chair 5 Hem Onc Scenery [address] [place] [address] 04/11/2024 2:00 PM EST Office Visit Urology Ashlie Louise [address] [place] [address] Manas Marie MD [address] [place] [address] 05/06/2024 9:15 AM EST Scheduled Telephone General Surgery Ashlie Louise [address] [place] [address] Ashlie, Nurse Gen Surg Rhonda Crespo RN [address] [place] [address] 05/16/2024 7:30 AM EST Hospital Encounter OR [facility], Operating Room, [facility] - 4th Floor [address] [place] [address] Timoteo Ayala, DO 100 [place] [facility] [place] [place] [address] 05/16/2024 7:30 AM EST - 05/16/2024 8:16 AM EST [facility], [facility] - 4th Floor [address] [place] [phone] Timoteo Ayala, DO [address] [place] [facility] [place] [place] [address] COLONOSCOPY FLEXIBLE PROXIMAL DIAGNOSTIC 07/19/2024 11:30 AM EDT Office Visit Cardiology, [facility] [address] [place] [address] Ciro Saini, [address] [place] [address] 02/03/2025 1:00 PM EDT Office Visit Gynecology/Obstet stevo Long [address] [place] [address] Nelli Farrell CRNP [address] [place] [address] Scheduled Procedures Name Priority Associated Diagnoses Date/Ti [...] this encounter Medical Devices Implanted Type Area Consultant Teacher Device Identifier Shelf Expiration Date Model / Serial / Lot Power Port 8fr Sngl Lumen Plas - [id number] Implanted:Qty : 1 on 01/05/2023 by Jai Malcolm Jr[facility] Right: Chest CR BARD : PERIPHERAL VASCULAR [id number] 07/08/2024 [id number] / / [id number] documented as of this encounter Visit Diagnoses [...] Power of Attor johann? No Care Teams Department Of Mathematics Chair Relationship Specialty Start Date End Date Lina Can MD [address] [place] [address] [place] [phone] PCP - General Family Medicine 08/06/22 documented as of this encounter
--- OUTSIDE RECORDS SUMMARY | 2024-05-09 12:21 | External Medical Summary | Summary of Care ---
Author Name Unknown Organization [facility] Address [address] [place] [address] Phone [phone] Care Team Providers Care Production Control Coordinating Clerk Name Role Phone Lina Can MD Primary Care Prov ider Encounter Details Date Type Department Care Team (Late st Contact Info) Description 03/14/2024 Home Infusion Hematology/Oncology [facility] 200 [place] [phone] Chandni Almonte MD 200 [place] [address] Malignant neoplasm of sigmoid colon (HCC)* Allergies [...] 3 mL/hr over 46 hours intravenously continuous. 60027 mg 03/14/20 24 025 Active documented as [...] Description 03/18/2024 9:10 AM EST Laboratory Laboratory, [facility] [phone] [facility] 132 [facility] [address] 03/19/2024 12:00 PM EST Office Visit Hematology/Oncolog y [facility] [address] [place] [phone] Alisia Birmingham CRNP [address] [place] [address] [place] [address] 03/19/2024 1:00 PM EST Hem/Onc Treatment Hematology/Oncolog y Treatment, [place] [address] [place] [address] Nasreen, Chair 1 Hem Onc Scenery [address] [place] [address] 03/25/2024 9:00 AM EST Laboratory Laboratory, [facility] 132 [facility] [address] Terrance Long [facility] 132 [facility] [place] [address] 03/26/2024 9:15 AM EST Office Visit Hematology/Oncolog y Scenery Nasreen [place] [address] [place] [phone] Chandni Almonte MD [address] [place] [address] 03/26/2024 12:00 PM EST Hem/Onc Treatment Hematology/Oncolog y Treatment [place] [address] [place] [phone] Nasreen, Chair 5 Hem Onc Scenery [address] [place] [address] 04/11/2024 2:00 PM EST Office Visit Urology Ashlie Louise [address] [facility] 270 [place] [address] Manas Marie MD 27 [place] [address] 05/28/2024 7:30 AM EST Hospital Encounter OR [facility], Operating Room, [facility] - 4th Floor [address] [place] [address] Timoteo Ayala, DO 100 N [facility] [place] [address] 05/28/2024 7:30 AM EST - 05/28/2024 8:16 AM EST Surgery OR [facility], Operating Room, [facility] - 4th Floor [address] [place] [address] Timoteo Ayala, DO [address] [place] [address] COLONOSCOPY FLEXIBLE PROXIMAL DIAGNOSTIC 07/19/2024 11:30 AM EDT Office Visit Cardiology, [facility] [address] [facility] [place] [address] Ciro Saini, [address] [place] [address] 02/03/2025 1:00 PM EDT Office Visit Gynecology/Obstetr ics [facility] [address] [place] [address] Nelli Farrell CRNP [address] [place] [address] Scheduled Procedures Name Priority Associated Diagnoses Date/Ti [...] this encounter Medical Devices Implanted Type Area Inside Sales Specialist Device Identifier Shelf Expiration Date Model / Serial / Lot Power Port 8fr Sngl Lumen Plas - [id number] Implanted:Qty : 1 on 01/05/2023 by Jai Malcolm Jr., MD at OR [facility] Right: Chest CR BARD : PERIPHERAL VASCULAR [id number] 07/08/2024 [id number] / / [id number] documented as of this encounter Visit Diagnoses [...] Power of Attor johann? No Care Teams Production Control Coordinating Clerk Relationship Specialty Start Date End Date Lina Can MD [address] [place] [address] [place] [address] PCP - General Family Medicine 08/06/22 documented as of this encounter
--- OUTSIDE RECORDS SUMMARY | 2024-05-09 12:22 | External Medical Summary | Summary of Care ---
Author Name Unknown Organization [facility] Address [address] [place] [address] Phone [phone] Care Team Providers Care Delphi Programmer Name Role Phone Lina Can MD Primary Care Prov ider Encounter Details Date Type Department Care Team (Late st Contact Info) Description 03/10/2024 Orders Only Hematology/Oncology [facility] [place] 200 [facility] [place] [phone] Chandni Almonte MD 200 [facility] [place] [address] Allergies Active Allergy Reactions Criticality Noted Date Comments Amoxicillin-Pot Clavulanate 07/13/19 GI upset Doxycycline 07/12/2022 GI upset Oxaliplatin Flushing High 07/27/2023 Shortness of breath Metoclopramide Hives 08/10/2022 documented as of this encounter (statuses as of 03/10/2024) Medications Acetaminophen 500 MG Oral Tablet (Tylenol [...] as of this encounter (statuses as of 03/10/2024) Active Problems Problem Noted Date Diagnosed Date [...] as of this encounter (statuses as of 03/10/2024) Immunizations No known immunizationsdocumented as of this [...] Description 03/11/2024 9:00 AM EST Laboratory Laboratory, [facility] 132 [facility] [place] [phone] Terrance Long 132 [facility] [place] [address] 03/12/2024 8:30 AM EST Office Visit Hematology/Oncolog y [facility] Nasreen [place] [address] [place] [address] Alisia [place], SANDRA 400 [facility] [place] [address] 03/12/2024 9:00 AM EST Hem/Onc Treatment Hematology/Oncolog y Treatment, [place] [address] [place], [place] [phone] Nasreen, Chair 7 Hem Onc Scenery [address] [place] [address] 03/25/2024 9:00 AM EST Laboratory Laboratory, [facility] 132 [facility] [place] [phone] Terrance Long 132 [facility] [place] [address] 03/26/2024 9:15 AM EST Office Visit Hematology/Oncolog y Scenery Nasreen [place] [address] [place], [place] [address] Chandni Almonte MD [address] [place] [address] 03/26/2024 12:00 PM EST Hem/Onc Treatment Hematology/Oncolog y Treatment, [place] [address] [place], [place] [phone] Nasreen, Chair 5 Hem Onc Scenery [address] [place] [address] 04/11/2024 2:00 PM EST Office Visit Urology Ashlie Louise [address] [place] [address] Manas Marie MD [address] [place] [address] 05/28/2024 7:30 AM EST Hospital Encounter OR [facility], Operating Room, [facility] - 4th Floor 400 [facility] [place] [phone] Timoteo Ayala, DO [address] [place] [address] 05/28/2024 7:30 AM EST - 05/28/2024 8:16 AM EST Surgery OR [facility], Operating Room, [facility] - 4th Floor 400 [facility] [place] [address] Timoteo Ayala, DO [address] [place], [place] [address] COLONOSCOPY FLEXIBLE PROXIMAL DIAGNOSTIC 07/19/2024 11:30 AM EDT Office Visit Cardiology, [facility] 132 [address] [address] Ciro Saini, DO [address] [place] [address] 02/03/2025 1:00 PM EDT Office Visit Gynecology/Obstetr ics Jim Long [address] [place] [address] Backer, Nelli SharpSANDRA jimenez [address] [place] [address] Scheduled Procedures Name Priority Associated Diagnoses Date/Ti [...] this encounter Medical Devices Implanted Type Area Grain Commodity Manager Device Identifier Shelf Expiration Date Model / Serial / Lot Power Port 8fr Sngl Lumen Plas - [id number] Implanted:Qty : 1 on 01/05/2023 by Jai Malcolm Jr., MD at OR [facility] Right: Chest CR BARD : PERIPHERAL VASCULAR [id number] 07/08/2024 [id number] / / [id number] documented as of this encounter Advance Directives [...] Power of Attor johann? No Care Teams Delphi Programmer Relationship Specialty Start Date End Date Lina Can MD [address] [place] [address] [place] Patel [address] PCP - General Family Medicine 08/06/22 documented as of this encounter
--- OUTSIDE RECORDS SUMMARY | 2024-05-09 12:22 | External Medical Summary | Summary of Care ---
Author Name Unknown Organization [facility] Address [address] [place] [address] Phone [phone] Care Team Providers Care Exhibit Electrician Name Role Phone Lina Can MD Primary Care Prov ider Reason for Visit * Reason Comments Chemotherapy C5D1 FolFiri * Episode Based Medications (Routine) - Authorized Specialty Diagnoses / Procedures Referred By Contac t Referred To Contact Diagnoses Encounter for antineoplastic chemotherapy Malignant neoplasm of sigmoid colon (HCC) Procedures AK LEUCOVORIN CALCIUM INJECTION AK PALONOSETRON HCL AK FLUOROURACIL INJECTION AK IRINOTECAN INJECTION AK INJ., ZIRABEV, 10 MG Chandni Almonte MD [address] [place] [address] [place] [address] Phone: tel: fax: Hematology/Oncology Treatment, [address] [address] Phone: tel: fax: Referral ID Status Reason Start Date Expiration Date V isits Requested Visits Authorized [id number] Authorized 11/22/2023 11/21/2024 [id number] Encounter Details Date Type Department Care Team (Latest Contact Info) Description 02/27/2024 9:15 AM EST Hem/Onc Treatment Hematology/Oncolog y Treatment, [address] [phone] Nasreen Chair 8 Hem On[address] [place] [address] Encounter for antineoplastic chemotherapy*; Malignant neoplasm of sigmoid colon (HCC) Allergies Active Allergy Reactions Criticality Noted Date Comments Amoxicillin-Pot Clavulanate 07/13/19 23 GI upset Doxycycline 07/12/2022 GI upset Oxaliplatin Flushing High 07/27/2023 Shortness of breath Metoclopramide Hives 08/10/2022 documented as of this encounter (statuses as of 02/27/2024) Medications Acetaminophen 500 MG Oral Tablet (Tylenol [...] infusion 4000 mg IV CONTINUOUS 02/26/2024 02/28/2024 Active documented as of this encounter (statuses as of 02/27/2024) Active Problems Problem Noted Date Diagnosed Date [...] as of this encounter (statuses as of 02/27/2024) Immunizations No known immunizationsdocumented as of this [...] Care Team (Late st Contact Info) Description 02/29/2024 10:30 AM EST Immunization/Injec tion Hematology/Oncolog y Treatment, [address] [phone] Nasreen, Chair 11 Hem Onc [address] [place] [address] 03/11/2024 9:00 AM EST Laboratory Laboratory, [facility] 132 [place] [phone] [facility] [address] [place] [address] 03/12/2024 8:30 AM EST Office Visit Hematology/Oncolog y [address] [place] [phone] Alisia Birmingham CRNP 400 [facility] [place] [address] 03/12/2024 9:00 AM EST Hem/Onc Treatment Hematology/Oncolog y [facility], [address] [phone] Nasreen, Chair 7 Hem Onc [address] [place] [address] 03/25/2024 9:00 AM EST Laboratory Laboratory, [facility] [place] [phone] Terrance Long [facility] [place] [address] 03/26/2024 9:15 AM EST Office Visit Hematology/Oncolog y Scenery Nasreen [place] [address] [place] [phone] Chandni Almonte MD [address] [place] [address] 03/26/2024 12:00 PM EST Hem/Onc Treatment Hematology/Oncolog y Treatment, [place] [address] [place], [place] [address] Nasreen, Chair 5 Hem Onc Scenery [address] [place] [address] 04/11/2024 2:00 PM EST Office Visit Urology Ashlie Louise [address] [place] [address] [place] [address] Manas Marie MD 27 [place] [address] 05/28/2024 7:30 AM EST Hospital Encounter OR GL[facility], Operating Room, [facility] - 4th Floor [address] [place] [phone] Timoteo Ayala, DO [address] [place] [facility] [place] [address] 05/28/2024 7:30 AM EST - 05/28/2024 8:16 AM EST Surgery OR GLH, Operating Room, [facility] - 4th Floor [address] [place] [phone] Timoteo Ayala, DO [address] [place] [address] COLONOSCOPY FLEXIBLE PROXIMAL DIAGNOSTIC 07/19/2024 11:30 AM EDT Office Visit Cardiology, [facility] [address] [facility] [place] [address] Ciro Saini, [address] [place] [address] 02/03/2025 1:00 PM EDT Office Visit Gynecology/Obstetr ics [facility] [address] [facility] [place] [address] Nelli Farrell CRNP [address] [place] [address] Scheduled Procedures Name Priority Associated Diagnoses Date/Ti [...] this encounter Medical Devices Implanted Type Area Field Laborer Device Identifier Shelf Expiration Date Model / Serial / Lot Power Port 8fr Sngl Lumen Plas - [id number] Implanted:Qty : 1 on 01/05/2023 by Jai Malcolm Jr., MD at OR [facility] Right: Chest CR BARD : PERIPHERAL VASCULAR [id number] 07/08/2024 [id number] / / [id number] documented as of this encounter Visit Diagnoses [...] ONCE PRN Other, Hypersensitivity Reaction, Starting on Mon02/27/24 at 0927, Until Mon02/28/24 at 0926, For 24 hoursIndications:Encounter for antineoplastic chemotherapy,Malignant neoplasm of sigmoid colon (HCC) EPINEPHrine 1 MG/ML inj 0.3 mg 0.3 mg, Intramuscular, ONCE PRN Other, Hypersensitivity Reaction or Anaphylaxis, Starting on Mon02/27/24 at 0927, Until Mon02/28/24 at 0926, For 24 hoursIndications:Encounter for antineoplastic chemotherapy,Malignant neoplasm of sigmoid colon (HCC) hEParin 100 UNIT/ML Lock Flush inj 500 Units 500 Units (5 mL), IV Lock, PRN Other, IV Flush, Starting on Mon02/27/24 at 0927, Until Mon02/28/24 at 0926, For 24 hours, Do not flush if lock, PICC, or central line not in place; IV infusing or unable to flush.Indications:Encounter for antineoplastic chemotherapy,Malignant neoplasm of sigmoid colon (HCC) Hydrocortisone Sod Suc (PF) (Solu-Cortef) inj 100 mg 100 mg, IV Push, ONCE PRN Other, Hypersensitivity Reaction, Starting on Mon02/27/24 at 0927, Until Mon02/28/24 at 0926, For 24 hoursIndications:Encounter for antineoplastic chemotherapy,Malignant neoplasm of sigmoid colon (HCC) LORAzepam (Ativan) tab 0.5 mg 0.5 mg, Oral, ONCE PRN Anxiety, Nausea, Starting on Mon02/27/24 at 0830, Until DiscontinuedIndications:Encount er for antineoplastic chemotherapy,Malignant neoplasm of sigmoid colon (HCC) NSS infusion Intravenous, at 50 mL/hr, PRN, Starting on Mon02/27/24 at 0830, Until Discontinued, Maintenance lineIndications:Encounter for antineoplastic chemotherapy,Malignant neoplasm of sigmoid colon (HCC) Start Infusion 02/27/2024 9:42 AM EST 50 mL/hr oxygen GAS Inhalation, OXYGEN, First dose on Mon02/27/24 at 1000, Until Discontinued, Device/Managed by: Low Flow Device, [...] Push, PRN Other, IV Flush, Starting on Mon02/27/24 at 0927, Until Mon02/28/24 at 0926, For 24 hours, Do not flush if lock, PICC, or central line not in place; IV infusing or unable to flush.Indications:Encounter for antineoplastic chemotherapy,Malignant neoplasm of sigmoid colon (HCC) Inactive Administered Medications - up to 3 [...] 10:52 AM EST 650 mg 170 mL/hr Palonosetron (Aloxi) inj SOLN 0.25 mg 0.25 mg, IV Push, ONCE, On Mon02/27/24 at 0945, For 1 dose, Restricted per [facility] antiemetic guidelinesIndications:Enco unter for antineoplastic [...] Power of Attor johann? No Care Teams Exhibit Electrician Relationship Specialty Start Date End Date Lina Can MD [address] [place] [address] [place] [address] PCP - General Family Medicine 08/06/22 documented as of this encounter
--- OUTSIDE RECORDS SUMMARY | 2024-05-09 12:22 | External Medical Summary ---
Author Name Unknown Address Unknown Organization [facility] [address] [place] [address] Laboratory Report Ordering Provider Test Date Status DANNIELLE OLVERA 03/11/2024 09:18:34 Final Observation Date Value Abnormality Reference (Units ) Status RBC, Urine 03/11/2024 09:18:34 3-5 Abnormal 0-2 (/HPF) Final WBC, Urine 03/11/2024 09:18:34 3-5 Abnormal 0-2 (/HPF) Final Bacteria [#/area] in Urine sediment by Microscopy high power field 03/11/2024 09:18:34 26-50 Abnormal 0-25 (/HPF) Final Performing Location [facility] [address] [place] [address]
--- OUTSIDE RECORDS SUMMARY | 2024-05-09 12:22 | External Medical Summary | Summary of Care ---
Author Name Unknown Organization [facility] Address [address] [place] [address] Phone [phone] Care Team Providers Care Director Of Culture Name Role Phone Lina Can MD Primary Care Prov ider Reason for Visit * Reason Onset Date Comments Medication Refill 02/23/2024 Encounter Details Date Type Department Care Team (Late st Contact Info) Description 02/23/2024 Refill Cardiology, [facility] [address] [place] [address] Kvng Choudhury, [address] [place] [address] Allergies Active Allergy Reactions Criticality Noted Date Comments Amoxicillin-Pot Clavulanate 07/13/19 GI upset Doxycycline 07/12/2022 GI upset Oxaliplatin Flushing High 07/27/2023 Shortness of breath Metoclopramide Hives 08/10/2022 documented as of this encounter (statuses as of 02/26/2024) Medications Acetaminophen 500 MG Oral Tablet (Tylenol [...] chemo pump disconnect. 1.2 mL 11 4 Active Nyvepria 6 MG/0.6ML Subcutaneous Solution Prefilled Syringe (Pegfilgrastim-a pgf)Indications: Malignant neoplasm of sigmoid colon (HCC),Prevention of chemotherapy-ind uced neutropenia Administer 6mg subq 24 hours after chemo pump disconnect 1.2 mL 11 4 Active Eliquis 5 MG Oral Tablet Take 1 Tablet by mouth in the morning and 1 Tablet before bedtime. 60 Tablet 11 4 Active Eliquis 5 MG Oral Tablet Take 1 Tablet by mouth in the morning and 1 Tablet before bedtime. 4 024 Discontin ued(Refil l) documented as of this encounter (statuses as of 02/26/2024) Active Problems Problem Noted Date Diagnosed Date [...] as of this encounter (statuses as of 02/26/2024) Immunizations No known immunizationsdocumented as of this [...] encounter Miscellaneous Notes * Telephone Encounter - Kvng Choudhury DO - 02/26/2024 9:52 AM ESTSigned Prescriptions: Disp Refills Eliquis 5 MG Oral Tablet 60 Tab*11 Sig: Take 1 Tablet by mouth in the morning and 1 Tablet before bedtime.Authorizing Provider: KVNG CHOUDHURY * Telephone Encounter - Glo Blanton, naval engineer - 02/23/2024 1:05 PM EST Patient is up to date for office visits. Pending Prescriptions: Disp Refills Eliquis 5 MG Oral Tablet Sig: Take 1 Tablet by mouth in the morning and 1 Tablet before bedtime. Last Visit: 11/09/2023 (in office), Visit date not found (telemedicine) Next Visit: 07/19/2024 If no future appointments scheduled, and last appointment is greater than a year ago, please schedule patient for a follow-up appointment Last date the medication was ordered: 7/25/24 Pharmacy: [id number] [id number] [facility] Is this request for a controlled substance?No it is not controlled. Urine Drug Screen:No results found for this or any previous visit. Patient Phone Numbers Labs: Lab Results Component Value Date/Time CREAT 0.7 02/12/2024 09:04 AM CREAT 0.70 01/10/1997 08:00 AM CREAT 0.7 07/18/1996 11:52 AM POTASSIUM 4.1 02/12/2024 09:04 AM LDL 122 07/12/2022 10:13 AM ALT 8 (L) 02/12/2024 09:04 AM documented in this encounter Plan of Treatment Upcoming Encounters Date Type Department Care Team (Late st Contact Info) Description 02/27/2024 9:15 AM EST Hem/Onc Treatment Hematology/Oncolog y Treatment, [place] [facility] [phone] Nasreen, Chair 8 Hem Onc [address] [place] [address] 03/11/2024 9:00 AM EST Laboratory Laboratory, [facility] [phone] [facility] 132 [place] [address] 03/12/2024 8:30 AM EST Office Visit Hematology/Oncolog y [facility] [address] [place] [phone] Alisia Birmingham CRNP [address] [place] [address] [place] [address] 03/12/2024 9:00 AM EST Hem/Onc Treatment Hematology/Oncolog y [facility] [phone] Nasreen, Chair 7 Hem Onc [facility] [address] [place] [address] 03/25/2024 9:00 AM EST Laboratory [facility], [facility] [place] [address] [facility] 132 [facility] [place] [address] 03/26/2024 11:15 AM EST Office Visit Hematology/Oncolog y [address] [place] [address] [place] [phone] Heriberto Wiley MD [address] [place] [address] 03/26/2024 12:00 PM EST Hem/Onc Treatment Hematology/Oncolog y [facility] [address] [place], [place] [phone] Nasreen, Chair 5 Hem Onc [address] [place] [address] 04/11/2024 2:00 PM EST Office Visit Urology Ashlie Louise [address] [place] [address] [place] [address] Manas Marie MD 27 [place] [address] 05/28/2024 7:30 AM EST Hospital Encounter OR GLH, Operating Room, [facility] - 4th Floor [address] [place] [phone] Timoteo Ayala, DO [address] [place] [address] 05/28/2024 7:30 AM EST - 05/28/2024 8:16 AM EST Surgery OR GLH, Operating Room, [facility] - 4th Floor [address] [place] [phone] Timoteo Ayala, DO [address] [place] [address] COLONOSCOPY FLEXIBLE PROXIMAL DIAGNOSTIC 07/19/2024 11:30 AM EDT Office Visit Cardiology, [facility] [address] [facility] [place] [address] Kvng Choudhury, [address] [place] [address] 02/03/2025 1:00 PM EDT Office Visit Gynecology/Obstetr ics [facility] [address] [facility] [place] [address] Nelli Farrell CRNP [address] [place] [address] Scheduled Procedures Name Priority Associated Diagnoses Date/Ti [...] this encounter Medical Devices Implanted Type Area Spring Upholsterer Device Identifier Shelf Expiration Date Model / Serial / Lot Power Port 8fr Sngl Lumen Plas - [id number] Implanted:Qty : 1 on 01/05/2023 by Jai Malcolm Jr., MD at [facility] Right: Chest CR BARD : PERIPHERAL VASCULAR [id number] 07/08/2024 [id number] / / [id number] documented as of this encounter Advance Directives [...] Attor johann? No Care Teams Director Of Culture Relationship Specialty Start Date End Date Lina Can MD [address] [place] [address] [place] [address] PCP - General Family Medicine 08/06/22 documented as of this encounter
--- OUTSIDE RECORDS SUMMARY | 2024-05-09 12:22 | External Medical Summary | Summary of Care ---
Author Name Unknown Organization [facility] Address [address] [place] [address] Phone [phone] Care Team Providers Care Lead Software Development Engineer Name Role Phone Lina Can MD Primary Care Prov ider Reason for Visit * Reason Comments Outpatient Testing Encounter Details Date Type Department Care Team (Late st Contact Info) Description 03/11/2024 9:00 AM EST Laboratory Laboratory, [facility] 132 [place] [address] [facility] [address] [place] [address] Malignant neoplasm of sigmoid colon (HCC) [...] 5:16 PM EDT Steve Ramirez RN * Are you blind or do you have serious difficulty seeing, even when wearing glasses? Answer Date of Assessment Author No 11/25/2022 5:16 PM COOPERT Steve Ramirez RN * Do you have serious difficulty walking or climbing stairs? (5 years old or older) Answer Date of Assessment Author No 11/25/2022 5:16 PM COPOERT Steve Ramirez RN * Do you have [...] 8:30 AM EST Office Visit Hematology/Oncolog y [facility] [address] [place] [phone] Alisia Birmingham CRNP [address] [place] [address] 03/12/2024 9:00 AM EST Hem/Onc Treatment Hematology/Oncolog y Treatment, [place] [address] [place] [phone] Nasreen, Chair [address] [facility] [address] [place] [address] 03/25/2024 9:00 AM EST Laboratory Laboratory, [facility] [address] [place] [phone] Terrance Long 132 [facility] TIA [place] [address] 03/26/2024 9:15 AM EST Office Visit Hematology/Oncolog y [facility] [address] [place] [phone] Chandni Almonte MD [address] [place] [address] 03/26/2024 12:00 PM EST Hem/Onc Treatment Hematology/Oncolog y Treatment, [place] [address] [place] [phone] Park, Chair 5 Hem Onc [address] [place] [address] 04/11/2024 2:00 PM EST Office Visit Urology Ashlie Louise [address] [place] [address] [place] [address] Manas Marie MD 27 [place] [address] 05/28/2024 7:30 AM EST Hospital Encounter OR GL, Operating Room, [facility] - 4th Floor [address] [facility] [place] [phone] Timoteo Ayala, DO [address] [place] [address] 05/28/2024 7:30 AM EST - 05/28/2024 8:16 AM EST Surgery OR [facility], Operating Room, [facility] - 4th Floor 400 [facility] [place] [address] Timoteo Ayala, DO [address] [place] [address] COLONOSCOPY FLEXIBLE PROXIMAL DIAGNOSTIC 07/19/2024 11:30 AM EDT Office Visit Cardiology, [facility] [address] [place] [address] Ciro Saini, DO [address] [place] [address] 02/03/2025 1:00 PM EDT Office Visit Gynecology/Obstetr ics [facility] [address] [place] [address] Backer, Nelli Fenton, SANDRA [address] [place] [address] Pending Results Name Type Priority Associated Diagnoses [...] this encounter Medical Devices Implanted Type Area Spray Drier Operator Device Identifier Shelf Expiration Date Model / Serial / Lot Power Port 8fr Sngl Lumen Plas - [id number] Implanted:Qty : 1 on 01/05/2023 by Jai Malcolm Jr., MD at OR [facility] Right: Chest CR BARD : PERIPHERAL VASCULAR [id number] 07/08/2024 [id number] / / [id number] documented as of this encounter Visit Diagnoses [...] Power of Attor johann? No Care Teams Lead Software Development Engineer Relationship Specialty Start Date End Date Lina Can MD [address] [place] [address] [place] [address] PCP - General Family Medicine 08/06/22 documented as of this encounter
--- OUTSIDE RECORDS SUMMARY | 2024-05-09 12:22 | External Medical Summary ---
Author Name Unknown Address Unknown Organization [facility] [address] [place] [address] Laboratory Report Ordering Provider Test Date Status DANNIELLE OLVERA 03/11/2024 09:08:17 Final Observation Date Value Abnormality Reference (Units ) Status Nucleated erythrocytes/100 leukocytes [Ratio] in Blood by Automated count 03/11/2024 09:08:17 Final Performing Location [facility] [place] [address]
--- OUTSIDE RECORDS SUMMARY | 2024-05-09 12:22 | External Medical Summary | Summary of Care ---
Author Name Unknown Organization [facility] Address [address] [place] [address] Phone [phone] Care Team Providers Care Shellfish Sorter Name Role Phone Lina Can MD Primary Care Prov ider Encounter Details Date Type Department Care Team (Late st Contact Info) Description 02/26/2024 Orders Only [facility] [address] [place] [address] Heriberto Wiley MD [address] [place] [address] Allergies Active Allergy Reactions Criticality Noted Date Comments Amoxicillin-Pot Clavulanate 07/13/19 23 GI upset Doxycycline 07/12/2022 GI upset Oxaliplatin Flushing High 07/27/2023 Shortness of breath Metoclopramide Hives 08/10/2022 documented as of this encounter (statuses as of 02/26/2024) Medications Eliquis 5 MG Oral Tablet Take 1 Tablet by mouth in the morning and 1 Tablet before bedtime. Active Acetaminophen 500 MG Oral Tablet (Tylenol Extra [...] pump disconnect 1.2 mL 11 4 Active Hospital, Clinic, or Other [...] 9:15 AM EST Hem/Onc Treatment Hematology/Oncolog y [address] [place] [phone] Nasreen, Chair 8 Hem Onc [address] [place] [address] 03/11/2024 9:00 AM EST Laboratory Laboratory, [facility] [phone] [facility] 132 [place] [address] 03/12/2024 8:30 AM EST Office Visit Hematology/Oncolog y [address] [place] [phone] Alisia Birmingham CRNP [address] [place] [address] [place] [address] 03/12/2024 9:00 AM EST Hem/Onc Treatment Hematology/Oncolog y [address] [phone] Nasreen, Chair 7 Hem Onc [address] [place] [address] 03/25/2024 9:00 AM EST [facility], [facility] 132 [facility] [place] [phone] [facility] 132 [facility] [place], [place] [address] 03/26/2024 11:15 AM EST Office Visit Hematology/Oncolog y [address] Nasreen [place] [address] [place] [phone] Heriberto Wiley MD [address] [place] [address] 03/26/2024 12:00 PM EST Hem/Onc Treatment Hematology/Oncolog y Treatment, [place] [address] [place] [phone] Nasreen, Chair 5 Hem Onc [place] [place] [address] 04/11/2024 2:00 PM EST Office Visit Urology Ashlie Louise [address] [address] [place] [address] Manas Marie MD 27 [place] [address] 05/28/2024 7:30 AM EST Hospital Encounter OR GLH, Operating Room, [facility] - 4th Floor 400 [place] [phone] Timoteo Ayala, DO [address] [place] [address] 05/28/2024 7:30 AM EST - 05/28/2024 8:16 AM EST Surgery OR GLH, Operating Room, [facility] - 4th Floor [address] [place] [phone] Timoteo Ayala, DO [address] [facility] [place] [address] COLONOSCOPY FLEXIBLE PROXIMAL DIAGNOSTIC 07/19/2024 11:30 AM EDT Office Visit Cardiology, [facility] [address] [place] [address] Ciro Saini, [address] [place] [address] 02/03/2025 1:00 PM EDT Office Visit Gynecology/Obstetr ics [facility] [address] [place] [address] Nelli Farrell CRNP [address] [place] [address] Scheduled Procedures Name Priority Associated Diagnoses Date/Ti [...] this encounter Medical Devices Implanted Type Area Heat Treater Helper Device Identifier Shelf Expiration Date Model / Serial / Lot Power Port 8fr Sngl Lumen Plas - [id number] Implanted:Qty : 1 on 01/05/2023 by Jai Malcolm Jr., MD at [facility] Right: Chest CR BARD : PERIPHERAL VASCULAR [id number] 07/08/2024 [id number] / / [id number] documented as of this encounter Advance Directives [...] Power of Attor johann? No Care Teams Shellfish Sorter Relationship Specialty Start Date End Date Lina Can MD [address] [place] [address] [place] [address] PCP - General Family Medicine 08/06/22 documented as of this encounter
--- OUTSIDE RECORDS SUMMARY | 2024-05-09 12:22 | External Medical Summary | Summary of Care ---
Author Name Unknown Organization [facility] Address [address] [place] [address] Phone [phone] Care Team Providers Care Jacquard Loom Fixer Name Role Phone Lina Can MD Primary Care Prov ider Reason for Visit * Reason Comments Procedure Pump disconnect Encounter Details Date Type Department Care Team (Latest Contact Info) Description 02/29/2024 10:30 AM EST Immunization/ Injection Hematology/Oncology Treatment, [address] [address] Nasreen, Chair 11 Hem On[address] [address] Encounter for antineoplastic chemotherapy*; Malignant neoplasm of sigmoid colon (HCC) Allergies Active Allergy Reactions Criticality Noted Date Comments Amoxicillin-Pot Clavulanate 07/13/19 GI upset Doxycycline 07/12/2022 GI upset Oxaliplatin Flushing High 07/27/2023 Shortness of breath Metoclopramide Hives 08/10/2022 documented as of this encounter (statuses as of 02/29/2024) Medications Acetaminophen 500 MG Oral Tablet (Tylenol [...] as of this encounter (statuses as of 02/29/2024) Active Problems Problem Noted Date Diagnosed Date [...] as of this encounter (statuses as of 02/29/2024) Immunizations No known immunizationsdocumented as of this [...] Assessment Author No 11/25/2022 5:16 PM EDT Crooks, E albino, RN * Do you have difficulty dressing [...] Nursing Notes * Mery Luther, RADHA - 02/29/2024 11:06 AM EST Chair 9. Patient arrived today s/p 46 hours of 5FU infusion. Port flushed with NSS, blood return noted, and port locked with Heparin. Port needle removed. Pt complained of considerable bone pain following neulasta injection, which pt self-administers 1 day after 5FU disconnect. Advised pt to take Loratidine 10mg starting today for 5 days; pt verbalized understanding. Pt also complained of constipation for 4 days; discussed PRN bowel medications. Patient left facility today in stable condition and denied further needs at this time. documented in this encounter Plan of Treatment Upcoming Encounters Date Type Department Care Team (Late st Contact Info) Description 03/11/2024 9:00 AM EST Laboratory Laboratory, Jim Long, [place] [address] [phone] Terrance Long [address] [place] [address] 03/12/2024 8:30 AM EST Office Visit Hematology/Oncolog y [place] Nasreen [place] [address] [place] [address] Alisia Birmingham CRNP [address] [place] [address] 03/12/2024 9:00 AM EST Hem/Onc Treatment Hematology/Oncolog y Treatment, [place] [address] [place], [place] [phone] Nasreen, Chair 7 Hem Onc Scenery 200 [facility] [place] [address] 03/25/2024 9:00 AM EST Laboratory Laboratory, [facility] [phone] [facility] 132 [facility] [address] 03/26/2024 9:15 AM EST Office Visit Hematology/Oncolog y [facility] [place] [address] [place], [place] [phone] Chandni Almonte MD [address] [place] [address] 03/26/2024 12:00 PM EST Hem/Onc Treatment Hematology/Oncolog y Treatment, [place] [address] [place], [place] [phone] Nasreen, Chair 5 Hem Onc Scenery 200 [facility] [place] [address] 04/11/2024 2:00 PM EST Office Visit Urology Ashlie Louise [address] [place] [address] Manas Marie MD 27 [place] [address] 05/28/2024 7:30 AM EST Hospital Encounter OR [facility], [facility], [facility] - 4th Floor [address] [place] [phone] Timoteo Ayala, DO [address] [place] [facility] [address] 05/28/2024 7:30 AM EST - 05/28/2024 8:16 AM EST Surgery OR [facility], Operating Room, [facility] - 4th Floor [address] [place] [address] Timoteo Ayala, DO [address] [place] [facility] [address] COLONOSCOPY FLEXIBLE PROXIMAL DIAGNOSTIC 07/19/2024 11:30 AM EDT Office Visit Cardiology, [facility] [address] [place] [address] Ciro Saini, DO [address] [place] [address] 02/03/2025 1:00 PM EDT Office Visit Gynecology/Obstetr ics [facility] [address] [place] [address] Nelli Farrell CRNP [address] [place] [address] Scheduled Procedures Name Priority Associated Diagnoses Date/Ti [...] this encounter Medical Devices Implanted Type Area Boarding Kennel Or Cattery Operator Device Identifier Shelf Expiration Date Model / Serial / Lot Power Port 8fr Sngl Lumen Plas - [id number] Implanted:Qty : 1 on 01/05/2023 by Jai Malcolm Jr., MD at [facility] Right: Chest CR BARD : PERIPHERAL VASCULAR [id number] 07/08/2024 [id number] / / [id number] documented as of this encounter Visit Diagnoses [...] PRN Other, IV Flush, Starting on Shi 02/29/24 at 1030, Until Mon03/01/24 at 1029, For 24 hours, Do not flush if lock, PICC, or central line not in place; IV infusing or unable to flush.Indications:Encounter for antineoplastic chemotherapy,Malignant neoplasm of sigmoid colon (HCC) Given 02/29/2024 10:54 AM EST 500 Units sodium chloride 0.9 % flush central line 10 mL 10 mL, IV Push, PRN Other, IV Flush, Starting on Shi 02/29/24 at 1030, Until Mon03/01/24 at 1029, For 24 hours, Do not flush if lock, PICC, or central line not in place; IV infusing or unable to flush.Indications:Encounter for antineoplastic chemotherapy,Malignant neoplasm of sigmoid colon (HCC) Given 02/29/2024 10:54 AM EST 10 mL documented in this encounter [...] Power of Attor johann? No Care Teams Jacquard Loom Fixer Relationship Specialty Start Date End Date Lina Can MD [address] [place] [address] [place] [address] PCP - General Family Medicine 08/06/22 documented as of this encounter
--- OUTSIDE RECORDS SUMMARY | 2024-05-09 12:22 | External Medical Summary | Summary of Care ---
Author Name Unknown Organization [facility] Address [address] [place] [address] Phone [phone] Care Team Providers Care Regulatory Compliance Coordinator Name Role Phone Lina Can MD Primary Care Prov ider Reason for Visit * Reason Comments Chemotherapy C5D1 FolFiri * Episode Based Medications (Routine) - Authorized Specialty Diagnoses / Procedures Referred By Contac t Referred To Contact Diagnoses Encounter for antineoplastic chemotherapy Malignant neoplasm of sigmoid colon (HCC) Procedures WA LEUCOVORIN CALCIUM INJECTION [place] PALONOSETRON HCL [place] FLUOROURACIL INJECTION [place] IRINOTECAN INJECTION [place] INJ., ZIRABEV, 10 MG Chandni Almonte MD [address] [place] [address] [place] [address] Phone: tel: fax: Hematology/Oncology Treatment, [address] [address] Phone: tel: fax: Referral ID Status Reason Start Date Expiration Date V isits Requested Visits Authorized [id number] Authorized 11/22/2023 11/21/2024 [id number] Encounter Details Date Type Department Care Team (Latest Contact Info) Description 02/27/2024 9:15 AM EST Hem/Onc Treatment Hematology/Oncolog y Treatment, [address] [address] Nasreen Chair 8 Hem Onc [address] [place] [address] Encounter for antineoplastic chemotherapy*; [...] AM EST Immunization/Injec tion Hematology/Oncolog y Treatment, [address] [phone] Nasreen, Chair 11 Hem Onc [address] [place] [address] 03/11/2024 9:00 AM EST Laboratory Laboratory, [facility] 132 [facility] [phone] [facility] 132 [facility] [address] 03/12/2024 8:30 AM EST Office Visit Hematology/Oncolog y [address] [place] [phone] Alisia Birmingham CRNP 400 [facility] [place] [address] 03/12/2024 9:00 AM EST Hem/Onc Treatment Hematology/Oncolog y [facility], [address] [phone] Nasreen, Chair 7 Hem Onc [address] [place] [address] 03/25/2024 9:00 AM EST Laboratory Laboratory, [place] [facility] [place] [phone] Terrance Long [facility] 132 [facility] [place] [address] 03/26/2024 9:15 AM EST Office Visit Hematology/Oncolog y [address] Nasreen [place] [address] [place] [phone] Chandni Almonte MD [address] [place] [address] 03/26/2024 12:00 PM EST Hem/Onc Treatment Hematology/Oncolog y Treatment, [place] [address] [place], [place] [address] Nasreen, Chair 5 Hem Onc Scenery [address] [place] [address] 04/11/2024 2:00 PM EST Office Visit Urology Ashlie Louise [address] [place] [address] [place] [address] Manas Marie MD 27 [place] [address] 05/28/2024 7:30 AM EST Hospital Encounter OR GLH, Operating Room, [facility] - 4th Floor [address] [place] [phone] Timoteo Ayala, DO 100 [place] [facility] [place] [address] 05/28/2024 7:30 AM EST - 05/28/2024 8:16 AM EST Surgery OR [facility], Operating Room, [facility] - 4th Floor [address] [place] [phone] Timoteo Ayala, DO [address] [place] [address] COLONOSCOPY FLEXIBLE PROXIMAL DIAGNOSTIC 07/19/2024 11:30 AM EDT Office Visit Cardiology, [facility] [address] [facility] [place] [address] Ciro Saini, [address] [place] [address] 02/03/2025 1:00 PM EDT Office Visit Gynecology/Obstetr ics [facility] [address] [facility] [place] [address] Nelli Farrell CRNP [address] [place] [address] Scheduled Procedures Name Priority Associated Diagnoses Date/Ti [...] encounter Medical Devices Implanted Type Area Business Systems Developer Device Identifier Shelf Expiration Date Model / Serial / Lot Power Port 8fr Sngl Lumen Plas - [id number] Implanted:Qty : 1 on 01/05/2023 by Jai Malcolm Jr., MD at OR [facility] Right: Chest CR BARD : PERIPHERAL VASCULAR [id number] 07/08/2024 [id number] / / [id number] documented as of this encounter Visit Diagnoses [...] at 0945, For 1 dose, Restricted per [facility] antiemetic guidelinesIndications:Enco unter for [...] Power of Attor johann? No Care Teams Regulatory Compliance Coordinator Relationship Specialty Start Date End Date Lina Can MD [address] [place] [address] [place] [address] PCP - General Family Medicine 08/06/22 documented as of this encounter
--- OUTSIDE RECORDS SUMMARY | 2024-05-09 12:22 | External Medical Summary | Summary of Care ---
Author Name Unknown Organization [facility] Address [address] [place] [address] Phone [phone] Care Team Providers Care Plating Department Helper Name Role Phone Lina Can MD [...] INJ., ZIRABEV, 10 MG Chandni Almonte MD [address] [place] [address] [place] [address] Phone: tel: fax: Hematology/Oncology Treatment, [address] [address] Phone: tel: fax: Referral ID Status Reason Start Date Expiration Date V isits Requested Visits Authorized [id number] Authorized 11/22/2023 11/21/2024 999 [id number] Encounter Details Date Type Department Care Team (Latest Contact Info) Description 02/27/2024 9:15 AM EST Hem/Onc Treatment Hematology/Oncolog y Treatment, [address] [phone] Nasreen Chair 8 Hem Onc [address] [place] [address] Encounter for antineoplastic chemotherapy*; Malignant neoplasm of sigmoid colon (HCC) Allergies Active Allergy Reactions Criticality Noted Date Comments Amoxicillin-Pot Clavulanate 07/13/19 GI upset Doxycycline 07/12/2022 GI upset Oxaliplatin Flushing High 07/27/2023 Shortness of breath Metoclopramide Hives 08/10/2022 documented as of this encounter (statuses as of 02/28/2024) Medications Acetaminophen 500 MG Oral Tablet (Tylenol [...] as of this encounter (statuses as of 02/28/2024) Active Problems Problem Noted Date Diagnosed Date [...] as of this encounter (statuses as of 02/28/2024) Immunizations No known immunizationsdocumented as of this [...] AM EST Immunization/Injec tion Hematology/Oncolog y Treatment, [address] [phone] Nasreen, Chair 11 Hem Onc [address] [place] [address] 03/11/2024 9:00 AM EST Laboratory Laboratory, [facility] 132 [facility] [place] [phone] [facility] 132 [facility] [place] [address] 03/12/2024 8:30 AM EST Office Visit Hematology/Oncolog y [address] [place] [phone] Alisia Birmingham CRNP 400 [facility] [place] [address] 03/12/2024 9:00 AM EST Hem/Onc Treatment Hematology/Oncolog y [facility], [address] [phone] Nasreen, Chair 7 Hem Onc [address] [place] [address] 03/25/2024 9:00 AM EST Laboratory Laboratory, [place] [facility] 132 [facility] [place] [phone] [facility] 132 [facility] [place] [address] 03/26/2024 9:15 AM EST Office Visit Hematology/Oncolog y [address]en[address] Nasreen [place] [address] [place] [phone] Chandni Almonte MD [address] [place] [address] 03/26/2024 12:00 PM EST Hem/Onc Treatment Hematology/Oncolog y Treatment, [place] [address] [place], [place] [address] Nasreen, Chair 5 Hem Onc Scenery [address] [place] [address] 04/11/2024 2:00 PM EST Office Visit Urology Ashlie Louise [address] [place] [address] [place] [address] Manas Marie MD 27 [place] [address] 05/28/2024 7:30 AM EST Hospital Encounter OR GLH, Operating Room, [facility] - 4th Floor [address] [place] [phone] Timoteo Ayala, DO [address] [place] [facility] [place] [address] 05/28/2024 7:30 AM EST - 05/28/2024 8:16 AM EST Surgery OR GLH, Operating Room, [facility] - 4th Floor [address] [place] [phone] Timoteo Ayala, DO [address] [place] [address] COLONOSCOPY FLEXIBLE PROXIMAL DIAGNOSTIC 07/19/2024 11:30 AM EDT Office Visit Cardiology, [facility] [address] [facility] [place] [address] Ciro Saini, [address] [place] [address] 02/03/2025 1:00 PM EDT Office Visit Gynecology/Obstetr ics [facility] [address] [facility] [place] [address] Nelli Farrell CRNP [address] [place] [address] Scheduled Procedures Name Priority Associated Diagnoses Date/Ti [...] this encounter Medical Devices Implanted Type Area Land Surveying Survey Worker Device Identifier Shelf Expiration Date Model / Serial / Lot Power Port 8fr Sngl Lumen Plas - [id number] Implanted:Qty : 1 on 01/05/2023 by Jai Malcolm Jr., MD at OR [facility] Right: Chest CR BARD : PERIPHERAL VASCULAR [id number] 07/08/2024 [id number] / / [id number] documented as of this encounter Visit Diagnoses [...] Power of Attor johann? No Care Teams Plating Department Helper Relationship Specialty Start Date End Date Lina Can MD [address] [place] [address] [place] [address] PCP - General Family Medicine 08/06/22 documented as of this encounter
--- OUTSIDE RECORDS SUMMARY | 2024-05-09 12:22 | External Medical Summary | Summary of Care ---
Author Name Unknown Organization [facility] Address [address] [place] [address] Phone [phone] Care Team Providers Care Fuels Sales Representative Name Role Phone Lina Can MD Primary Care Prov ider Reason for Visit * Reason Comments Outpatient Testing Encounter Details Date Type Department Care Team (Late st Contact Info) Description 02/26/2024 9:00 AM EST Laboratory Laboratory, [facility] 132 [place] [address] [facility] 132 [place] [address] Malignant neoplasm of sigmoid colon (HCC) [...] hours after chemo pump disconnect. 1.2 mL 4 Active Nyve[employer]a 6 MG/0.6ML Subcutaneous Solution Prefilled Syringe (Pegfilgrastim-ap gf)Indications:Ma lignant neoplasm of sigmoid colon (HCC),Prevention of chemotherapy-junaid joão neutropenia Administer 6mg subq 24 hours after chemo pump disconnect 1.2 mL 4 Active documented as of this encounter [...] 9:15 AM EST Hem[facility]Onc [facility] [phone] Nasreen, Chair 8 Hem Onc [address] [place] [address] 03/11/2024 9:00 AM EST Laboratory Laboratory, [facility] 132 [facility] [phone] [facility] 132 [facility] [address] 03/12/2024 8:30 AM EST Office Visit Hematology/Oncolog y [address] [place] [phone] Alisia Birmingham CRNP 400 [facility] [place] [address] 03/12/2024 9:00 AM EST Hem/Onc Treatment Hematology/Oncolog y [facility] 200 [facility] [phone] Nasreen, Chair 7 Hem Onc [place] [address] Jean Jordan [place] [address] 03/25/2024 9:00 AM EST Laboratory Laboratory, [place] [facility] 132 [facility] [phone] [facility] 132 [facility] [place] [address] 03/26/2024 11:15 AM EST Office Visit Hematology/Oncolog y [address] Nasreen [place] [address] [place] [phone] Heriberto Wiley MD [address] [place] [address] 03/26/2024 12:00 PM EST Hem/Onc Treatment Hematology/Oncolog y Treatment, [place] [address] [place] [address] Nasreen, Chair 5 Hem Onc Scenery [address] [place] [address] 04/11/2024 2:00 PM EST Office Visit Urology Ashlie Louise [address] [facility] 270 [place] [address] Manas Marie MD 27 [place] [address] 05/28/2024 7:30 AM EST Hospital Encounter OR GLH, Operating Room, [facility] - 4th Floor [address] [place] [phone] Timoteo yAala, DO [address] [facility] [place] [address] 05/28/2024 7:30 AM EST - 05/28/2024 8:16 AM EST Surgery OR GLH, Operating Room, [facility] - 4th Floor [address] [place] [phone] Timoteo Ayala, DO [address] [place] [address] COLONOSCOPY FLEXIBLE PROXIMAL DIAGNOSTIC 07/19/2024 11:30 AM EDT Office Visit Cardiology, [facility] [address] [facility] [place] [address] Ciro Saini DO [address] [place] [address] 02/03/2025 1:00 PM EDT Office Visit Gynecology/Obstetr ics [facility] [address] [place] [address] Nelli Farrell CRNP [address] [place] [address] Pending Results Name Type Priority Associated Diagnoses Date /Time MAGNESIUM Lab STAT Malignant neoplasm of sigmoid colon (HCC) 02/26/2024 8:26 AM EST COMPREHENSIVE METABOLIC PANEL Lab STAT Malignant neoplasm of sigmoid colon (HCC) 02/26/2024 8:26 AM EST URINALYSIS, REFLEX TO MICROSCOPIC Lab STAT Malignant neoplasm of sigmoid colon (HCC) 02/26/2024 8:47 AM EST Scheduled Procedures Name Priority Associated [...] this encounter Medical Devices Implanted Type Area Management Lecturer Device Identifier Shelf Expiration Date Model / Serial / Lot Power Port 8fr Sngl Lumen Plas - [id number] Implanted:Qty : 1 on 01/05/2023 by Jai Malcolm Jr., MD at [facility] Right: Chest CR BARD : PERIPHERAL VASCULAR [id number] 07/08/2024 [id number] / / [id number] documented as of this encounter Procedures Procedure Name Priority Date/Time Associated Diagnosis Comments DIFFERENTIAL, AUTOMATED STAT 02/26/2024 8:26 AM EST Malignant neoplasm of sigmoid colon (HCC) CBC STAT 02/26/2024 8:26 AM EST Malignant neoplasm of sigmoid colon (HCC) CBC STAT 02/26/2024 8:26 AM EST Malignant neoplasm of sigmoid colon (HCC) documented in this encounter Results * DIFFERENTIAL, AUTOMATED (02/26/2024 8:26 AM EST) WBC 6.83 4.00 - 10.80 K/uL 02/26/2024 8:31 AM EST LABORATORY [place]10 Neutrophils % 67.6 40.0 - 75.0 % 02/26/2024 8:31 AM EST LAB[facility] [place] 57[facility]10 Lymphocytes % 20.8 18.0 - 42.0 % 02/26/2024 8:31 AM EST [facility] [place] 57[facility]10 Monocytes % 7.5 1.0 - 11.0 % 02/26/2024 8:31 AM EST [facility] [place] 57[facility]10 Eosinophils % 3.4 0.0 - 6.0 % 02/26/2024 8:31 AM EST [facility] [place] 57[facility]10 Basophils % 0.7 0.0 - 2.0 % 02/26/2024 8:31 AM EST LAB[facility] [place] 57[facility]10 Absolute Neutrophils 4.62 1.80 - 7.70 K/uL 02/26/2024 8:31 AM EST [facility] [place] 57[facility]10 Absolute Lymphocytes 1.42 1.00 - 4.80 K/ul 02/26/2024 8:31 AM EST [facility] [place] 57[facility]10 Absolute Monocytes 0.51 0.00 - 1.10 K/uL 02/26/2024 8:31 AM EST [facility] [place] 57[facility]10 Absolute Eosinophils 0.23 0.00 - 0.70 K/uL 02/26/2024 8:31 AM EST [facility] [place] 57[facility]10 Absolute Basophils 0.05 0.00 - 0.20 K/uL 02/26/2024 8:31 AM EST [facility] [place] 57[facility]10 Blood Venous blood specimen / Unknown Venipuncture / Unknown 02/26/2024 8:26 AM EST 02/26/2024 8:26 AM EST Chandni Almonte MD LAB BLOOD ORDERABLES Fin al Result LAB[facility]ORY [place] [address] [place] [address] * (ABNORMAL) CBC (02/26/2024 8:26 AM EST) WBC 6.83 4.00 - 10.80 K/uL 02/26/2024 8:31 AM EST [facility] [place] [facility]10 RBC 3.21 3.85 - 5.15 M/uL 02/26/2024 8:31 AM EST [facility] [place] 57[facility]10 HGB 10.7(L) 12.0 - 15.3 g/dL 02/26/2024 8:31 AM EST [facility] [place] 57[facility]10 HCT 32.6(L) 36.0 - 45.2 % 02/26/2024 8:31 AM EST [facility] [place] [facility] MCV 101.6 81.5 - 97.5 fL 02/26/2024 8:31 AM EST [facility] [place] [facility]10 MCH 33.3 27.0 - 34.0 pg 02/26/2024 8:31 AM EST [facility] [place] [facility]10 MCHC 32.8 32.0 - 36.0 g/dL 02/26/2024 8:31 AM EST [facility] [place] [facility]10 RDW 19.7 11.5 - 15.5 % 02/26/2024 8:31 AM EST [facility] [place] 57[facility]10 PLT 100(L) 140 - 400 K/uL 02/26/2024 8:31 AM EST [facility] [place] [facility]10 MPV 10.3 6.6 - 11.1 fL 02/26/2024 8:31 AM EST [facility] [place] 57[facility]10 Blood Venous blood specimen / Unknown Venipuncture / Unknown 02/26/2024 8:26 AM EST 02/26/2024 8:26 AM EST Chandni Almonte MD LAB BLOOD ORDERABLES Fin al Result [facility] 57[facility]10 132 [facility] [place] [address] documented in this encounter Visit Diagnoses Diagnosis [...] Power of Attor johann? No Care Teams Fuels Sales Representative Relationship Specialty Start Date End Date Lina Can MD [address] [place] [address] [place] [address] PCP - General Family Medicine 08/06/22 documented as of this encounter
--- OUTSIDE RECORDS SUMMARY | 2024-05-09 12:22 | External Medical Summary ---
Author Name Unknown Address Unknown Organization [id number][facility] [address] [place] [address] Laboratory Report Ordering Provider Test Date Status DANNIELLE OLVERA 03/11/2024 09:08:17 Final Observation Date Value Abnormality Reference (Units ) Status WBC, Total 03/11/2024 09:08:17 5.61 4.00-10.8 0 (K/uL) Final RBC 03/11/2024 09:08:17 3.07 3.85-5.15 (M/uL) Final Hemoglobin 03/11/2024 09:08:17 10.4 Below low normal 12 .0-15.3 (g/dL) Final HCT 03/11/2024 09:08:17 32.5 Below low normal 36. 0-45.2 (%) Final MCV 03/11/2024 09:08:17 105.9 81.5-97.5 (fL) Final MCH 03/11/2024 09:08:17 33.9 27.0-34.0 (pg) Final MCHC 03/11/2024 09:08:17 32.0 32.0-36.0 (g/dL) Final RDW 03/11/2024 09:08:17 18.3 11.5-15.5 (%) Final Platelets 03/11/2024 09:08:17 83 Below low normal 140 -400 (K/uL) Final MPV 03/11/2024 09:08:17 10.7 6.6-11.1 ( fL) Final Performing Location [facility] 0 - [address] [place] [address]
--- OUTSIDE RECORDS SUMMARY | 2024-05-09 12:22 | External Medical Summary ---
Author Name Unknown Address Unknown Organization K01:LABORATORY [facility] - [address] [place] [address] Laboratory Report Ordering Provider Test Date Status DANNIELLE OLVERA 03/11/2024 09:08:17 Final Observation Date Value Abnormality Reference (Units ) Status Magnesium 03/11/2024 09:08:17 2.0 1.5-2.6 (m g/dL) Final Performing Location LAB[facility]ORY [facility] - [address] [place] [address]
--- OUTSIDE RECORDS SUMMARY | 2024-05-09 12:22 | External Medical Summary ---
Author Name Unknown Address Unknown Organization K0[facility] [place] [address] - [address] [facility] [address] Laboratory Report Ordering Provider Test Date Status DANNIELLE OLVERA 03/11/2024 09:08:17 Final Observation Date Value Abnormality Reference (Units ) Status SYNC LEUKOCYTES IN BLOOD BY AUTOMATED COUNT 03/11/2024 09:08:17 5.61 4.00-10.80 (K/uL) Final Segs 03/11/2024 09:08:17 61.2 40.0-75.0 (%) Final Lymphs % 03/11/2024 09:08:17 26.2 18.0-42.0 (%) Final Monos 03/11/2024 09:08:17 9.1 1.0-11.0 (%) Final Eosinophils 03/11/2024 09:08:17 3.0 0.0-6.0 (%) Final Basos 03/11/2024 09:08:17 0.5 0.0-2.0 (%) Final Absolute Segs 03/11/2024 09:08:17 3.43 1.80-7.70 (K/uL) Final Lymphs, absolute 03/11/2024 09:08:17 1.47 1.00-4.80 (K/ul) Final Monos, Abs 03/11/2024 09:08:17 0.51 0.00-1.10 (K/uL) Final Eos, Abs 03/11/2024 09:08:17 0.17 0.00-0.70 (K/uL) Final Basos, Abs 03/11/2024 09:08:17 0.03 0.00-0.20 (K/uL) Final Performing Location [facility] [place] 57-1 0 - [address] [facility] [address]
--- OUTSIDE RECORDS SUMMARY | 2024-05-09 12:22 | External Medical Summary ---
Author Name Unknown Address Unknown Organization K0G:[facility] [place] [address] - [address] [place] [address] Laboratory Report Ordering Provider Test Date Status DANNIELLE OLVERA 03/11/2024 09:18:34 Final Observation Date Value Abnormality Reference (Units ) Status Color of Urine by Auto 03/11/2024 09:18:34 Yellow Light Yellow, Yellow, Dark Yellow Final Clarity, Urine 03/11/2024 09:18:34 Clear Clear Final Glucose [Mass/volume] in Urine by Automated test strip 03/11/2024 09:18:34 Negative Negative (mg/dL) Final Bilirubin.total [Presence] in Urine by Automated test strip 03/11/2024 09:18:34 Negative Negative Final Ketones [Mass/volume] in Urine by Automated test strip 03/11/2024 09:18:34 Negative Negative (mg/dL) Final Specific gravity, Urine 03/11/2024 09:18:34 1.015 1.003-1.030 Final Hemoglobin [Presence] in Urine by Automated test strip 03/11/2024 09:18:34 Small Abnormal Negative Final pH, Urine 03/11/2024 09:18:34 5.5 5.0-7.5 (Units) Final Protein [Mass/volume] in Urine by Automated test strip 03/11/2024 09:18:34 Negative Negative (mg/dL) Final Urobilinogen [Mass/volume] in Urine by Automated test strip 03/11/2024 09:18:34 0.2 0.2, 1.0 (mg/dL) Final Nitrite [Presence] in Urine by Automated test strip 03/11/2024 09:18:34 Negative Negative Final Leukocyte esterase [Presence] in Urine by Automated test strip 03/11/2024 09:18:34 Negative Negative Final Performing Location [facility] 0 - [address] [place] [address]
--- OUTSIDE RECORDS SUMMARY | 2024-05-09 12:22 | External Medical Summary | Summary of Care ---
Author Name Unknown Organization [facility] Address [address] [place] [address] Phone [phone] Care Team Providers Care Inspector Agricultural Commodities Name Role Phone Lina Can MD Primary Care Prov ider Reason for Visit * Reason Comments Outpatient Testing Encounter Details Date Type Department Care Team (Late st Contact Info) Description 02/26/2024 9:00 AM EST Laboratory Laboratory, [facility] [address] [place] [address] [facility] 132 [facility] [address] Malignant neoplasm of sigmoid colon (HCC) [...] neoplasm of sigmoid colon (HCC),Prevention of chemotherapy-junaid jãoo neutropenia Administer 6mg subq 24 hours after [...] 9:15 AM EST Hem[facility] [phone] Nasreen, Chair 8 Hem Onc [address] [place] [address] 03/11/2024 9:00 AM EST Laboratory Laboratory, [facility] 132 [facility] [phone] [facility] 132 [facility] [address] 03/12/2024 8:30 AM EST Office Visit Hematology/Oncolog y [address] [place] [phone] Alisia Birmingham CRNP 400 [facility] [place] [address] 03/12/2024 9:00 AM EST Hem/Onc Treatment Hematology/Oncolog y [facility] 200 [facility] [phone] Nasreen, Chair 7 Hem Onc [place] [address] Jean Jordan [place] [address] 03/25/2024 9:00 AM EST Laboratory Laboratory, [facility] 132 [facility] [phone] [facility] 132 [facility] [place] [address] 03/26/2024 11:15 AM EST Office Visit Hematology/Oncolog y [address] Nasreen [place] [address] [place] [phone] Heriberto Wiley MD [address] [place] [address] 03/26/2024 12:00 PM EST Hem/Onc Treatment Hematology/Oncolog y Treatment, [place] [address] [place] [address] Nasreen, Chair 5 Hem Onc Scenery [address] [place] [address] 04/11/2024 2:00 PM EST Office Visit Urology Ashlie Louise [address] [facility] 270 [place] [address] Manas Marie MD 27 [place] [address] 05/28/2024 7:30 AM EST Hospital Encounter OR [facility], Operating Room, [facility] - 4th Floor [address] [place] [phone] Timoteo Ayala, DO [address] [facility], [place] [address] 05/28/2024 7:30 AM EST - 05/28/2024 8:16 AM EST Surgery OR [facility], Operating Room, [facility] - 4th Floor [address] [place] [phone] Timoteo Ayala, DO [address] [place] [address] COLONOSCOPY FLEXIBLE PROXIMAL DIAGNOSTIC 07/19/2024 11:30 AM EDT Office Visit Cardiology, [facility] [address] [facility] [place] [address] Ciro Saini DO [address] [place] [address] 02/03/2025 1:00 PM EDT Office Visit Gynecology/Obstetr ics [facility] [address] [place] [address] Nelli Farrell CRNP [address] [place] [address] Pending Results Name Type Priority Associated Diagnoses Date /Time MAGNESIUM Lab STAT Malignant neoplasm of sigmoid colon (HCC) 02/26/2024 8:26 AM EST COMPREHENSIVE METABOLIC PANEL Lab STAT Malignant neoplasm of sigmoid colon (HCC) 02/26/2024 8:26 AM EST Scheduled Procedures Name Priority Associated [...] this encounter Medical Devices Implanted Type Area [employer] Bar[employer] Device Identifier Shelf Expiration Date Model / Serial / Lot Power Port 8fr Sngl Lumen Plas - [id number] Implanted:Qty : 1 on 01/05/2023 by Jai Malcolm Jr., MD at [facility] Right: Chest CR BARD : PERIPHERAL VASCULAR [id number] 07/08/2024 [id number] / / [id number] documented as of this encounter Procedures Procedure [...] K/uL 02/26/2024 8:31 AM EST [facility] 57-10 Blood Venous blood specimen / Unknown Venipuncture / Unknown 02/26/2024 8:26 AM EST 02/26/2024 8:26 AM EST Chandni Almonte MD LAB BLOOD ORDERABLES Fin al Result [facility] [place] 57-10 [address] [place] [address] * (ABNORMAL) CBC (02/26/2024 8:26 AM EST) WBC 6.83 4.00 - 10.80 K/uL 02/26/2024 8:31 AM EST [facility] 57-10 RBC 3.21 3.85 - 5.15 M/uL 02/26/2024 8:31 AM EST [facility] [place] 57-10 HGB 10.7(L) 12.0 - 15.3 g/dL 02/26/2024 8:31 AM EST [facility]10 HCT 32.6(L) 36.0 - 45.2 % 02/26/2024 8:31 AM EST LAB[facility]ATORY [place] 57-10 MCV 101.6 81.5 - 97.5 fL [...] al Result [facility] [place] 57-[address] [place] [address] documented in this encounter Visit Diagnoses Diagnosis [...] of Attor johann? No Care Teams Inspector Agricultural Commodities Relationship Specialty Start Date End Date Lina Can MD [address] [place] [address] [place] [address] PCP - General Family Medicine 08/06/22 documented as of this encounter
--- OUTSIDE RECORDS SUMMARY | 2024-05-09 12:22 | External Medical Summary ---
Author Name Unknown Address Unknown Organization [facility] [place] [address] - [address] [place] [address] Laboratory Report Ordering Provider Test Date Status DANNIELLE OLVERA 03/11/2024 09:08:17 Final Observation Date Value Abnormality Reference (Units ) Status BUN 03/11/2024 09:08:17 8 6-20 (mg/dL) Final Creatinine 03/11/2024 09:08:17 0.7 0.5-1.0 (mg/dL) Final Glomerular filtration rate/1.73 sq M.predicted [Volume Rate/Area] in Serum, Plasma or Blood by Creatinine-based formula (CKD-EPI) 03/11/2024 09:08:17 >90 >=60 (mL/min) Final eGFR is calculated based on the CKD-EPI 2020 equation. Sodium 03/11/2024 09:08:17 141 135-146 (m mol/L) Final Potassium 03/11/2024 09:08:17 3.3 Below low normal 3.5 -5.1 (mmol/L) Final Cl 03/11/2024 09:08:17 105 98-107 (mm ol/L) Final CO2 03/11/2024 09:08:17 26 22-32 (mmo l/L) Final Anion gap 03/11/2024 09:08:17 10 7-15 (mmol /L) Final Glucose 03/11/2024 09:08:17 83 70-120 (mg /dL) Final Albumin 03/11/2024 09:08:17 4.0 3.8-5.0 (g /dL) Final AST (Aspartate aminotransferase) 03/11/2024 09:08:17 13 10-35 (U/L) Fin al Alk Phos 03/11/2024 09:08:17 240 Above high normal 35 -130 (U/L) Final Bilirubin, Total 03/11/2024 09:08:17 0.4 <=1 .2 (mg/dL) Final Calcium 03/11/2024 09:08:17 9.3 8.4-10.2 ( mg/dL) Final Protein 03/11/2024 09:08:17 6.5 6.0-8.3 (g /dL) Final ALT (Alanine aminotransferase) 03/11/2024 09:08:17 6 Below low normal 10-35 (U/L) Final Performing Location [facility]ATORY [place] 57-[address] 0 - [address] [facility] [address]
--- OUTSIDE RECORDS SUMMARY | 2024-05-09 12:22 | External Medical Summary ---
Author Name Unknown Address Unknown Organization K0[facility] [place] 57-[address] - [address] [place] [address] Laboratory Report Ordering Provider Test Date Status DANNIELLE OLVERA 02/26/2024 08:47:25 Final Observation Date Value Abnormality Reference (Units ) Status RBC, Urine 02/26/2024 08:47:25 3-5 Abnormal 0-2 (/HPF) Final WBC, Urine 02/26/2024 08:47:25 0-2 0-2 (/HPF) Final Bacteria [#/area] in Urine sediment by Microscopy high power field 02/26/2024 08:47:25 0-25 0-25 (/HPF) Final Performing Location [facility] [place] 57-[address] 0 - [address] [facility] [address]
--- OUTSIDE RECORDS SUMMARY | 2024-05-09 12:22 | External Medical Summary ---
Author Name Unknown Address Unknown Organization [facility] [place] [address] [facility] [address] Laboratory Report Ordering Provider Test Date Status DANNIELLE OLVERA 02/26/2024 08:47:25 Final Observation Date Value Abnormality Reference (Units ) Status Color of Urine by Auto 02/26/2024 08:47:25 Yellow Colorless, Light Yellow, Yellow, Dark Yellow Final Clarity, Urine 02/26/2024 08:47:25 Clear Clear Final Glucose [Mass/volume] in Urine by Automated test strip 02/26/2024 08:47:25 Negative Negative (mg/dL) Final Bilirubin.total [Presence] in Urine by Automated test strip 02/26/2024 08:47:25 Negative Negative Final Ketones [Mass/volume] in Urine by Automated test strip 02/26/2024 08:47:25 Negative Negative (mg/dL) Final Specific gravity, Urine 02/26/2024 08:47:25 1.010 1.003-1.030 Final Hemoglobin [Presence] in Urine by Automated test strip 02/26/2024 08:47:25 Trace Abnormal Negative Final pH, Urine 02/26/2024 08:47:25 6.0 5.0-7.5 (Units) Final Protein [Mass/volume] in Urine by Automated test strip 02/26/2024 08:47:25 Negative Negative (mg/dL) Final Urobilinogen [Mass/volume] in Urine by Automated test strip 02/26/2024 08:47:25 0.2 0.2, 1.0 (mg/dL) Final Nitrite [Presence] in Urine by Automated test strip 02/26/2024 08:47:25 Negative Negative Final Leukocyte esterase [Presence] in Urine by Automated test strip 02/26/2024 08:47:25 Negative Negative Final Performing Location [facility] [place] 57-[address] 0 - [address] [place] [address]
--- OUTSIDE RECORDS SUMMARY | 2024-05-09 12:23 | External Medical Summary | Summary of Care ---
Author Name Unknown Organization [facility] Address [address] [place] [address] Phone [phone] Care Team Providers Care Textile Engraver Name Role Phone Lina Can MD Primary Care Prov ider Reason for Visit * Reason Onset Date Comments Medication Refill 02/22/2024 Encounter Details Date Type Department Care Team (Late st Contact Info) Description 02/22/2024 Refill Hematology/Oncology Treatment, [place] [address] [place] [address] Chandni Spicer MD 200 [place] [address] Malignant neoplasm of sigmoid colon (HCC)*; Prevention of chemotherapy-induced neutropenia Allergies Active Allergy Reactions Criticality Noted Date Comments Amoxicillin-Pot Clavulanate 07/13/19 23 GI upset Doxycycline 07/12/2022 GI upset Oxaliplatin Flushing High 07/27/2023 Shortness of breath Metoclopramide Hives 08/10/2022 documented as of this encounter (statuses as of 02/23/2024) Medications Eliquis 5 MG Oral Tablet Take [...] pump disconnect 1.2 mL 11 4 Active documented as of this encounter (statuses as of 02/23/2024) Active Problems Problem Noted Date Diagnosed Date [...] as of this encounter (statuses as of 02/23/2024) Immunizations No known immunizationsdocumented as of this [...] encounter Miscellaneous Notes * Telephone Encounter - Zackery Wiley MD - 02/23/2024 12:40 PM EST E-prescribed Zackery Wiley MD Hem/Onc * Telephone Encounter - Zackery Wiley MD - 02/23/2024 12:40 PM ESTSigned Prescriptions: Disp Refills Neulasta 6 MG/0.6ML Subcutaneous Solution *1.2 mL 11 Sig: Administer 6 mg subq 24 hours after chemo pump disconnect.Authorizing Provider: CHANDNI SPICER Nyvepria 6 MG/0.6ML Subcutaneous Solution *1.2 mL 11 Sig: Administer 6mg subq 24 hours after chemo pump disconnectAuthorizing Provider: ZACKERY WILEY * Addendum Note - Saud Gray RN - 02/22/2024 3:48 PM ESTAddended by: SAUD GRAY on: 02/22/2024 03:48 PM Modules accepted: Orders * Telephone Encounter - Saud Gray RN - 02/22/2024 3:47 PM EST Per insurance preference, changed to NYVEPRIA * Telephone Encounter - Nelli España LPN - 02/22/2024 10:38 AM ESTSigned Prescriptions: Disp Refills Neulasta 6 MG/0.6ML Subcutaneous Solution *1.2 mL 11 Sig: Administer 6mg subq 24 hours after chemo pump disconnectAuthorizing Provider: CHANDNI SPICER-------- * Telephone Encounter - Saud Gray RN - 02/22/2024 8:46 AM EST Pended neulasta. documented in this encounter Plan of Treatment Upcoming Encounters Date Type Department Care Team (Late st Contact Info) Description 02/26/2024 9:00 AM EST [facility] [address] Terrance Long 132 [facility] [place] [address] 02/27/2024 9:15 AM EST Hem/Onc Treatment Hematology/Oncolog y Treatment, [place] [address] [place] [address] Nasreen, Chair 8 Hem Onc [place] [address] [place], [place] [address] 03/11/2024 9:00 AM EST Laboratory Laboratory, [facility] 132 [facility], [place] [phone] Terrance Long 132 [facility], [place] [address] 03/12/2024 8:30 AM EST Office Visit Hematology/Oncolog y Scen[place] Nasreen [place] [address] [place], [place] [phone] Alisia Birmingham CRNP [address] [place], [place] [address] [address] 03/12/2024 9:00 AM EST Hem/Onc Treatment Hematology/Oncolog y [facility] 200 [facility] [place], [place] [phone] Nasreen, Chair 7 Hem Onc Scen[address] [place], [place] [address] 03/25/2024 9:00 AM EST Laboratory Laboratory, [facility] 132 [facility] [phone] Terrance Long 132 [facility], [place] [address] 03/26/2024 11:15 AM EST Office Visit Hematology/Oncolog y [place]en[place] Nasreen [place] [address] [place], [place] [phone] Zackery Wiley MD [address] [place], [place] [address] 03/26/2024 12:00 PM EST Hem/Onc Treatment Hematology/Oncolog y [facility] 200 [facility] [place], [place] [address] Nasreen, Chair 1 Hem Onc Scen[place] [address] [place] [address] 04/11/2024 2:00 PM EST Office Visit Urology Ashlie Louise [address] [place] [address] [place] [address] Manas Marie MD [address] [place] [address] 05/28/2024 7:30 AM EST Hospital Encounter OR [facility], Operating Room, [facility] - 4th Floor 400 [facility] [place] [phone] Timoteo Ayala, DO [address] [place] [address] 05/28/2024 7:30 AM EST - 05/28/2024 8:16 AM EST Surgery OR [facility], Operating Room, [facility] - 4th Floor 400 [facility] [place] [phone] Timoteo Ayala, DO [address] [place] [address] COLONOSCOPY FLEXIBLE PROXIMAL DIAGNOSTIC 07/19/2024 11:30 AM EDT Office Visit Cardiology, [facility] [address] [place] [address] Ciro Saini, DO [address] [place] [address] 02/03/2025 1:00 PM EDT Office Visit Gynecology/Obstetr ics [facility] [address] [place] [address] Nelli Farrell CRNP [address] [place] [address] Scheduled Procedures Name Priority Associated Diagnoses Date/Ti [...] this encounter Medical Devices Implanted Type Area Medical Imaging Tech Device Identifier Shelf Expiration Date Model / Serial / Lot Power Port 8fr Sngl Lumen Plas - [id number] Implanted:Qty : 1 on 01/05/2023 by Jai Malcolm Jr., MD at OR [facility] Right: Chest CR BARD : PERIPHERAL VASCULAR [id number] 07/08/2024 [id number] / / [id number] documented as of this encounter Visit Diagnoses Diagnosis Malignant neoplasm of sigmoid colon (HCC)- Primary Malignant neoplasm of sigmoid colon Prevention of chemotherapy-induced neutropenia Cancer of sigmoid colon (HCC) Malignant neoplasm [...] Power of Attor johann? No Care Teams Textile Engraver Relationship Specialty Start Date End Date Lina Can MD [address] [place] [address] [place] [phone] PCP - General Family Medicine 08/06/22 documented as of this encounter
--- OUTSIDE RECORDS SUMMARY | 2024-05-09 12:23 | External Medical Summary | Summary of Care ---
Author Name Unknown Organization [facility] Address [address] [place] [address] Phone [phone] Care Team Providers Care Correctional Medicine Physician Name Role Phone Lina Can MD Primary Care Prov ider Reason for Visit * Reason Onset Date Comments Medication Refill 02/22/2024 Encounter Details Date Type Department Care Team (Late st Contact Info) Description 02/22/2024 Refill Hematology/Oncology Treatment, [employer] 200 [place] [address] Chandni Spicer MD 200 [place] [address] Malignant neoplasm of sigmoid colon (HCC)*; Prevention [...] pump disconnect. 1.2 mL 11 4 Active documented as [...] Description 02/26/2024 9:00 AM EST Laboratory Laboratory, [facility] 132 [facility] [place] [phone] Terrance Long 132 [facility] [place] [address] 02/27/2024 9:15 AM EST Hem/Onc Treatment Hematology/Oncolog y Treatment, [employer] 200 [facility], [place] [address] Nasreen, Chair 8 Hem Onc [facility] 200 [facility] [address] 03/11/2024 9:00 AM EST Laboratory Laboratory, [facility] 132 [facility] [place] [phone] Terrance Long 132 [facility] [address] 03/12/2024 8:30 AM EST Office Visit [facility]olog [facility] [employer] 200 [facility] [employer], [place] [phone] Alisia Birmingham, SANDRA 400 [facility] [place] [address] 03/12/2024 9:00 AM EST Hem/Onc Treatment Hematology/Oncolog y Treatment, [employer] 200 [facility], [place] [phone] Nasreen, Chair 7 Hem Onc [facility] 200 [facility] [employer] [address] 03/25/2024 9:00 AM EST Laboratory Laboratory, [facility] [address] [place] [phone] Terrance Long 132 [facility] [place] [address] 03/26/2024 11:15 AM EST Office Visit Hematology/Oncolog y Scenery Nasreen [employer] [address] [facility] [address] Heriberto Wiley MD [address] [facility] [address] 03/26/2024 12:00 PM EST Hem/Onc Treatment Hematology/Oncolog y Treatment, [employer] [address] [employer], [place] [address] Nasreen, Chair 1 Hem Onc Scen[place] [address] [facility] [address] 04/11/2024 2:00 PM EST Office Visit Urology Ashlie [place] [address] [place] [address] Mnaas Marie MD [address] [place] [address] 05/28/2024 7:30 AM EST Hospital Encounter OR [facility], Operating Room, [facility] - 4th Floor 400 [facility] [place] [phone] Timoteo Ayala, DO 100 [place] [facility] [place] [address] 05/28/2024 7:30 AM EST - 05/28/2024 8:16 AM EST Surgery OR [facility], Operating Room, [facility] - 4th Floor [address] [place] [phone] Timoteo Ayala, DO [address] [place], [place] [phone] COLONOSCOPY FLEXIBLE PROXIMAL DIAGNOSTIC 07/19/2024 11:30 AM EDT Office Visit Cardiology, [facility] [address] [place] [address] Parveen, Ciro J, DO [address] [place] [address] 02/03/2025 1:00 PM EDT Office Visit Gynecology/Obstetr ics Jim Long [address] [place] [address] Backer, SANDRA Murillo [address] [place] [address] Scheduled Procedures Name Priority Associated Diagnoses Date/Ti [...] this encounter Medical Devices Implanted Type Area Communications Maintainer Device Identifier Shelf Expiration Date Model / Serial / Lot Power Port 8fr Sngl Lumen Plas - [id number] Implanted:Qty : 1 on 01/05/2023 by Jai Malcolm Jr., MD at OR [facility] Right: Chest CR BARD : PERIPHERAL VASCULAR [id number] 07/08/2024 [id number] / / [id number] documented as of this encounter Visit Diagnoses [...] Power of Attor johann? No Care Teams Correctional Medicine Physician Relationship Specialty Start Date End Date Lina Can MD [address] [place] [address] [place] [address] PCP - General Family Medicine 08/06/22 documented as of this encounter
--- OUTSIDE RECORDS SUMMARY | 2024-05-09 12:23 | External Medical Summary ---
Author Name Unknown Address Unknown Organization K0G:[facility] [place] 57-[address] - [address] [facility] [address] Laboratory Report Ordering Provider Test Date Status DANNIELLE OLVERA 02/26/2024 08:26:32 Final Observation Date Value Abnormality Reference (Units ) Status SYNC LEUKOCYTES IN BLOOD BY AUTOMATED COUNT 02/26/2024 08:26:32 6.83 4.00-10.80 (K/uL) Final Segs 02/26/2024 08:26:32 67.6 40.0-75.0 (%) Final Lymphs % 02/26/2024 08:26:32 20.8 18.0-42.0 (%) Final Monos 02/26/2024 08:26:32 7.5 1.0-11.0 (%) Final Eosinophils 02/26/2024 08:26:32 3.4 0.0-6.0 (%) Final Basos 02/26/2024 08:26:32 0.7 0.0-2.0 (%) Final Absolute Segs 02/26/2024 08:26:32 4.62 1.80-7.70 (K/uL) Final Lymphs, absolute 02/26/2024 08:26:32 1.42 1.00-4.80 (K/ul) Final Monos, Abs 02/26/2024 08:26:32 0.51 0.00-1.10 (K/uL) Final Eos, Abs 02/26/2024 08:26:32 0.23 0.00-0.70 (K/uL) Final Basos, Abs 02/26/2024 08:26:32 0.05 0.00-0.20 (K/uL) Final Performing Location LAB[facility]ATORY [place] 57-1 0 - [address] [facility] [address]
--- OUTSIDE RECORDS SUMMARY | 2024-05-09 12:23 | External Medical Summary | Summary of Care ---
Author Name Unknown Organization [facility] Address [address] [place] [address] Phone [phone] Care Team Providers Care Customer Advisor Specialist Name Role Phone Lina Can MD Primary Care Prov ider Reason for Visit * Reason Onset Date Comments Precert Approved 02/22/2024 14 Prema Santos Encounter Details Date Type Department Care Team (Late st Contact Info) Description 02/21/2024 Telephone Hematology/Oncology [facility] [place] [address] [place] [address] Heriberto Wiley MD [address] [place] [address] Precert Approved (14 Prema Santos ) Allergies Active Allergy Reactions Criticality Noted Date [...] the morning. 90 Tablet 1 4 Active documented as of [...] Telephone Encounter - Tereza Gray RN - 02/23/2024 12:43 PM EST GSP: YESI nyvepria approved, rx signed. * Telephone Encounter - Prema Sandoval OSA - 02/23/2024 11:40 AM EST Please see scanned fax from insurance under the Media Tab. Approved/Denied: approved Drug Name and Formulation: Nyvepria 6 MG/0.6ML Subcutaneous Solution Prefilled Syringe How Prescribed(directions/sig): Administer 6mg subq 24 hours after chemo pump disconnect Qt and Day Supply: 05/07 Did you receive insurance information from outside the chart? No, received insurance information within the chart Valid auth start date: 02/23/2024 Valid auth end date: 02/22/2025 Rx Insurance Info: abbey nicholson [place] Reference #: [id number] Prema Sandoval Medication Medical Record Clerk 02/23/2024.11:40 AM * Telephone Encounter - Prema Sandoval OSA - 02/22/2024 4:04 PM EST [facility] Authorization Submission Submission Information: Medication: Nyvepria Portal used: PromptPA Insurance: ABBEY NICHOLSON Authorization #/Santos: [id number] Prema Sandoval Medication Medical Record Clerk 02/22/2024.4:04 PM * Telephone Encounter - Tereza Gray RN - 02/22/2024 3:48 PM EST Per insurance preference, will change to NYVEPRIA. ICD-10: c18.7, z76.89 Start date: STAT Drugs: Disp Refills Start End Nyvepria 6 MG/0.6ML Subcutaneous Solution Prefilled Syringe (Pegfilgrastim-apgf) 1.2 mL 11 02/22/2024 -- Sig: Administer 6mg subq 24 hours after chemo pump disconnect Physician: Dr Almonte * Telephone Encounter - Prema Sandoval OSA - 02/22/2024 10:48 AM EST [facility] Authorization Submission Submission Information: Medication: NEULASTA 6 MG/0.6 ML SYRINGE Portal used: [facility] Insurance: [facility] Authorization #/Santos: [id number] Prema Sandoval Medication Medical Record Clerk 02/22/2024.10:48 AM * Telephone Encounter - Tereza Gray RN - 02/22/2024 8:44 AM EST ICD-10: c18.7, z76.89 Start date: STAT Drugs: Disp Refills Start End Neulasta 6 MG/0.6ML Subcutaneous Solution Prefilled Syringe (Pegfilgrastim) 1.2 mL 11 02/22/2024 -- Sig: Administer 6mg subq 24 hours after chemo pump disconnect Physician: Dr Almonte Comments: Due to national shortage of UDENYCA and ZIEXTENZO, requesting insurance authorization forNEULASTA * Telephone Encounter - Deepti Ramirez RPh - 02/21/2024 8:34 AM EST Clarissa, We have a script for Udenyca for this patient but it is currently on backorder until anticipated return in 04/2024. She will need a dose for next week. Can you please send in an alternative medication so we can fill for the patient. Thanks! Deepti Ramirez, PharmD [facility] 02/21/2024 8:38 AM documented in this encounter Plan of Treatment Upcoming Encounters Date Type Department Care Team (Late st Contact Info) Description 02/26/2024 9:00 AM EST Laboratory Laboratory, [facility] [address] [place] [address] Terrance Long [address] [place] [address] 02/27/2024 9:15 AM EST Hem/Onc Treatment Hematology/Oncolog y Treatment, [place] [facility] [phone] Nasreen, Chair 8 Hem Onc [address] [place] [address] 03/11/2024 9:00 AM EST Laboratory Laboratory, [facility] [address] [place] [phone] Terrance Long 132 [facility] [place] [address] 03/12/2024 8:30 AM EST Office Visit Hematology/Oncolog y [facility] Nas[place] 200 [facility] [place] [phone] Alisia Birmingham CRNP [address] [place] [address] 03/12/2024 9:00 AM EST Hem/Onc Treatment Hematology/Oncolog y Treatment, [place] [address] [facility] [phone] Nasreen, Chair 7 Hem Onc [facility] 200 [facility] [place] [address] 03/25/2024 9:00 AM EST Laboratory Laboratory, [facility] 132 [facility] [place] [address] Long Terrance Ricos 132 [facility] [place] [address] 03/26/2024 11:15 AM EST Office Visit Hematology/Oncolog y [place] Nasreen [place] [address] [place] [address] Heriberto Wiley MD [address] [place] [address] 03/26/2024 12:00 PM EST Hem/Onc Treatment Hematology/Oncolog y Treatment, [place] [address] [place] [phone] Nasreen, Chair 1 Hem Onc [place] [address] [place] [address] 04/11/2024 2:00 PM EST Office Visit Urology Ashlie Louise [address] [place] [address] Manas Marie MD 27 [place] [address] 05/28/2024 7:30 AM EST Hospital Encounter OR [facility], Operating Room, [place] [facility] - 4th Floor [address] [place] [address] Timoteo Ayala, DO [address] [place] [address] 05/28/2024 7:30 AM EST - 05/28/2024 8:16 AM EST Surgery OR [facility], Operating Room, [place] [facility] - 4th Floor [address] [place] [address] Timoteo Ayala, DO [address] [place] [address] COLONOSCOPY FLEXIBLE PROXIMAL DIAGNOSTIC 07/19/2024 11:30 AM EDT Office Visit Cardiology, [facility] [address] [place] [address] Ciro Saini DO [address] [place] [address] 02/03/2025 1:00 PM EDT Office Visit Gynecology/Obstetr ics [facility] [address] [place] [address] Nelli Farrell CRNP [address] [place] [address] Scheduled Procedures Name Priority Associated Diagnoses Date/Ti [...] this encounter Medical Devices Implanted Type Area Insecticide Expert Device Identifier Shelf Expiration Date Model / Serial / Lot Power Port 8fr Sngl Lumen Plas - [id number] Implanted:Qty : 1 on 01/05/2023 by Jai Malcolm Jr., MD at [facility] Right: Chest CR BARD : PERIPHERAL VASCULAR [id number] 07/08/2024 [id number] / / [id number] documented as of this encounter Advance Directives [...] Power of Attor johann? No Care Teams Customer Advisor Specialist Relationship Specialty Start Date End Date Lina Can MD [address] [place] [address] [place] [phone] PCP - General Family Medicine 08/06/22 documented as of this encounter
--- OUTSIDE RECORDS SUMMARY | 2024-05-09 12:23 | External Medical Summary | Summary of Care ---
Author Name Unknown Organization [facility] Address [address] [place] [address] Phone [phone] Care Team Providers Care Senior Medical Director Name Role Phone Lina Can MD Primary Care Prov ider Reason for Visit * Reason Onset Date Comments Precert Approved 02/22/2024 14 Prema Santos Encounter Details Date Type Department Care Team (Late st Contact Info) Description 02/21/2024 Telephone Hematology/Oncology [facility] [place] [address] [place] [address] Heriberto Wiley MD [address] [place] [address] Precert Approved (14 Prema Santos ) Allergies [...] Encounter - Tereza Gray RN - 02/23/2024 1:43 PM EST Ok to proceed with neulasta if covered by insurance, can switch to nyvepria with next fill. Thanks! * Telephone Encounter - Tereza Gray [...] end date: 02/22/2025 Rx Insurance Info: abbey SHAVER Reference #: [id number] Prema Sandoval Medication Project Intern 02/23/2024.11:40 AM * Telephone Encounter - Prema Sandoval OSA - 02/22/2024 4:04 PM EST [facility] Authorization Submission Submission Information: Medication: Nyvepria Portal used: PromptPA Insurance: ABBEY NICHOLSON Authorization #/Santos: [id number] Prema Sandoval Medication Project Intern 02/22/2024.4:04 PM * Telephone Encounter - Tereza [...] Sandoval OSA - 02/22/2024 10:48 AM EST [facility] Authorization Submission Submission Information: Medication: NEULASTA 6 MG/0.6 ML SYRINGE Portal used: [facility] Insurance: [facility] Authorization #/Santos: [id number] Prema Sandoval Medication Project Intern 02/22/2024.10:48 AM * Telephone Encounter - Tereza [...] forNEULASTA * Telephone Encounter - Deepti Ramirez [facility] - 02/21/2024 8:34 AM EST Clarissa, We have a script for Udenyca for this patient but it is currently on backorder until anticipated return in 04/2024. She will need a dose for next week. Can you please send in an alternative medication so we can fill for the patient. Thanks! Deepti Ramirez, PharmD [facility] 02/21/2024 8:38 AM documented in this encounter Plan of Treatment Upcoming Encounters Date Type Department Care Team (Late st Contact Info) Description 02/26/2024 9:00 AM EST Laboratory Laboratory, [facility] [address] [place] [phone] Terrance Long [address] [place] [address] [place] [address] 02/27/2024 9:15 AM EST Hem/Onc Treatment Hematology/Oncolog y Treatment, [place] 200 [facility] Berta [place] [phone] Nasreen Chair 8 Hem Onc [facility] 200 [facility] [address] 03/11/2024 9:00 AM EST Laboratory Laboratory, [facility] [address] [place] [phone] Terrance Long 132 [facility] TIA [place] [address] 03/12/2024 8:30 AM EST Office Visit Hematology/Oncolog y [facility] [place] 200 [facility] [phone] Alisia Birmingham CRNP [address] [place] [address] [place] [address] 03/12/2024 9:00 AM EST Hem/Onc Treatment Hematology/Oncolog y Treatment, [place] [address] [place] [phone] Nasreen, Chair 7 Hem Onc [place] [address] [place] [address] 03/25/2024 9:00 AM EST Laboratory Laboratory, [facility] 132 [facility] [address] [facility] 132 [facility] [address] 03/26/2024 11:15 AM EST Office Visit Hematology/Oncolog y [place] [address] [place] [phone] Heriberto Wiley MD [address] [place] [address] 03/26/2024 12:00 PM EST Hem/Onc Treatment Hematology/Oncolog y [place] [address] [place] [phone] Nasreen, Chair 1 Hem Onc [place] [address] [place] [address] 04/11/2024 2:00 PM EST Office Visit Urology Ashlie Louise [address] [place] [address] Manas Marie MD 27 [place] [address] 05/28/2024 7:30 AM EST Hospital Encounter OR [facility], Operating Room, [facility] - 4th Floor [address] [place] [phone] Timoteo Ayala, DO [address] [place] [address] 05/28/2024 7:30 AM EST - 05/28/2024 8:16 AM EST Surgery OR [facility], Operating Room, [facility] - 4th Floor 400 [facility] [place] [phone] Timoteo Ayala, DO [address] [place] [address] COLONOSCOPY FLEXIBLE PROXIMAL DIAGNOSTIC 07/19/2024 11:30 AM EDT Office Visit Cardiology, [facility] [address] [place] [address] Ciro Saini, [address] [place] [address] 02/03/2025 1:00 PM EDT Office Visit Gynecology/Obstetr [facility] [address] [place] [address] Nelli Farrell CRNP [address] [place] [address] Scheduled Procedures Name Priority Associated Diagnoses Date/Ti [...] encounter Medical Devices Implanted Type Area Production Specialist Device Identifier Shelf Expiration Date Model / Serial / Lot Power Port 8fr Sngl Lumen Plas - [id number] Implanted:Qty : 1 on 01/05/2023 by Jai Malcolm Jr., MD at [facility] Right: Chest CR BARD : PERIPHERAL VASCULAR [id number] 07/08/2024 [id number] / / [id number] documented as of this encounter Advance Directives [...] of Attor johann? No Care Teams Senior Medical Director Relationship Specialty Start Date End Date Lina Can MD [address] [place] [address] [place] [phone] PCP - General Family Medicine 08/06/22 documented as of this encounter
--- OUTSIDE RECORDS SUMMARY | 2024-05-09 12:23 | External Medical Summary | Summary of Care ---
Author Name Unknown Organization [facility] Address [address] [place] [address] Phone [phone] Care Team Providers Care Principal Programmer Name Role Phone Lina Can MD Primary Care Prov ider Reason for Visit * Reason Onset Date Comments Precert Approved 02/22/2024 14 Prema Santos Encounter Details Date Type Department Care Team (Late st Contact Info) Description 02/21/2024 Telephone Hematology/Oncology [facility] [place] [address] [place] [address] Heriberto Wiley MD [address] [place] [address] Precert Approved (14 Prema Santos ) Allergies [...] encounter Miscellaneous Notes * Telephone Encounter - Prema Sandoval OSA - 02/23/2024 11:40 AM EST Please see scanned fax from insurance under the Media Tab. Approved/Denied: approved Drug Name and Formulation: Nyvepria 6 MG/0.6ML Subcutaneous Solution Prefilled Syringe How Prescribed(directions/sig): Administer 6mg subq 24 hours after chemo pump disconnect Qt and Supply: 05/07 Did you receive insurance information from outside the chart? No, received insurance information within the chart Valid auth start date: 02/23/2024 Valid auth end date: 02/22/2025 Rx Insurance Info: abbey nicholson [place] Reference #: [id number] Prema Sandoval Medication Warping Machine Operator 02/23/2024.11:40 AM * Telephone Encounter - Prema Sandoval OSA - 02/22/2024 4:04 PM EST [facility] Authorization Submission Submission Information: Medication: Nyvepria Portal used: PromptPA Insurance: ABBEY NICHOLSON Authorization #/Santos: [id number] Prema Sandoval Medication Warping Machine Operator 02/22/2024.4:04 PM * Telephone Encounter - Tereza [...] Sandoval OSA - 02/22/2024 10:48 AM EST [facility] Authorization Submission Submission Information: Medication: NEULASTA 6 MG/0.6 ML SYRINGE Portal used: [facility] Insurance: [facility] Authorization #/Santos: [id number] Prema Sandoval Medication Warping Machine Operator 02/22/2024.10:48 AM * Telephone Encounter - Tereza [...] for the patient. Thanks! Deepti Ramirez, PharmD [facility] 02/21/2024 8:38 AM documented in this encounter Plan of Treatment Upcoming Encounters Date Type Department Care Team (Late st Contact Info) Description 02/26/2024 9:00 AM EST Laboratory Laboratory, [facility] 132 [facility] [place] [phone] Terrance Long 132 [facility] [place], [place] [address] 02/27/2024 9:15 AM EST Hem/Onc Treatment Hematology/Oncolog y [facility] [address] [place], [place] [address] Nasreen, Chair 8 Hem Onc [place] 200 [facility] [place], [place] [address] 03/11/2024 9:00 AM EST Laboratory Laboratory, [facility] 132 [facility] [place] [phone] Terrance Long 132 [facility] [place] [address] 03/12/2024 8:30 AM EST Office Visit Hematology/Oncolog y Scenery [facility] 200 [facility] [place], [place] [address] Alisia [place], SANDRA [address] [place], [place] [address] [address] 03/12/2024 9:00 AM EST Hem/Onc Treatment Hematology/Oncolog y Treatment, [place] [address] [place], [place] [phone] Nasreen, Chair 7 Hem Onc [place] [address] [place], [place] [address] 03/25/2024 9:00 AM EST Laboratory Laboratory, [facility] 132 [facility] [place] [phone] Terrance Long 132 [facility] [place] [address] 03/26/2024 11:15 AM EST Office Visit Hematology/Oncolog y [address] Nasreen [place] [address] [place], [place] [address] Heriberto Wiley MD [address] [place] [address] 03/26/2024 12:00 PM EST Hem/Onc Treatment Hematology/Oncolog y Treatment, [place] [address] [place], [place] [address] Nasreen, Chair 1 Hem Onc [place] [address] [place] [address] 04/11/2024 2:00 PM EST Office Visit Urology Ashlie Louise [address] [place] [address] Manas Marie MD [address] [place] [address] 05/28/2024 7:30 AM EST Hospital Encounter OR GL, Operating Room, [facility] - 4th Floor 400 [facility] [place] [phone] Timoteo Ayala, DO [address] [place] [address] 05/28/2024 7:30 AM EST - 05/28/2024 8:16 AM EST Surgery OR GL, Operating Room, [facility] - 4th Floor 400 [facility] [place] [phone] Timoteo Ayala, DO [address] [place] [address] COLONOSCOPY FLEXIBLE PROXIMAL DIAGNOSTIC 07/19/2024 11:30 AM EDT Office Visit Cardiology, [facility] [address] [place] [address] Ciro Saini, DO [address] [place] [address] 02/03/2025 1:00 PM EDT Office Visit Gynecology/Obstetr ics Jim Long [address] [place] [address] Backer, NelliSANDRA Jenkins [address] [place] [address] Scheduled Procedures Name Priority Associated Diagnoses Date/Ti [...] this encounter Medical Devices Implanted Type Area International Marketing Coordinator Device Identifier Shelf Expiration Date Model / Serial / Lot Power Port 8fr Sngl Lumen Plas - [id number] Implanted:Qty : 1 on 01/05/2023 by Jai Malcolm Jr., MD at OR [facility] Right: Chest CR BARD : PERIPHERAL VASCULAR [id number] 07/08/2024 [id number] / / [id number] documented as of this encounter Advance Directives [...] Power of Attor johann? No Care Teams Principal Programmer Relationship Specialty Start Date End Date Lina Can MD [address] [place] [address] [place] [address] PCP - General Family Medicine 08/06/22 documented as of this encounter
--- OUTSIDE RECORDS SUMMARY | 2024-05-09 12:23 | External Medical Summary ---
Author Name Unknown Address Unknown Organization [facility] [address] [place] [address] Laboratory Report Ordering Provider Test Date Status DANNIELLE OLVERA 02/26/2024 08:26:32 Final Observation Date Value Abnormality Reference (Units ) Status WBC, Total 02/26/2024 08:26:32 6.83 4.00-10.8 0 (K/uL) Final RBC 02/26/2024 08:26:32 3.21 3.85-5.15 (M/uL) Final Hemoglobin 02/26/2024 08:26:32 10.7 Below low normal 12 .0-15.3 (g/dL) Final HCT 02/26/2024 08:26:32 32.6 Below low normal 36. 0-45.2 (%) Final MCV 02/26/2024 08:26:32 101.6 81.5-97.5 (fL) Final MCH 02/26/2024 08:26:32 33.3 27.0-34.0 (pg) Final MCHC 02/26/2024 08:26:32 32.8 32.0-36.0 (g/dL) Final RDW 02/26/2024 08:26:32 19.7 11.5-15.5 (%) Final Platelets 02/26/2024 08:26:32 100 Below low normal 140 -400 (K/uL) Final MPV 02/26/2024 08:26:32 10.3 6.6-11.1 ( fL) Final Performing Location [facility] [place] [address]
--- OUTSIDE RECORDS SUMMARY | 2024-05-09 12:23 | External Medical Summary | Summary of Care ---
Author Name Unknown Organization [facility] Address [address] [place] [address] Phone [phone] Care Team Providers Care Gluer Machine Setup Operator Name Role Phone Lina Can MD Primary Care Prov ider Reason for Visit * Reason Onset Date Comments Medication Refill 02/22/2024 Encounter Details Date Type Department Care Team (Late st Contact Info) Description 02/22/2024 Refill Hematology/Oncology Treatment, [place] [address] [place] [address] Chandni Spicer MD 200 [place] [address] Malignant neoplasm of sigmoid colon (HCC)*; Prevention [...] Description 02/26/2024 9:00 AM EST Laboratory Laboratory, [facility] 132 [facility] [place] [phone] Terrance Long 132 [facility] [place] [address] 02/27/2024 9:15 AM EST Hem/Onc Treatment Hematology/Oncolog y Treatment, [place] 200 [facility], [place] [address] Nasreen, Chair 8 Hem Onc [facility] 200 [facility] [place] [address] 03/11/2024 9:00 AM EST Laboratory Laboratory, [facility] 132 [facility] [place] [phone] Terrance Long 132 [facility] [place] [address] 03/12/2024 8:30 AM EST Office Visit Hematology/Oncolog y [facility] Nasreen [place] 200 [facility] [place], [place] [phone] Alisia [place], SANDRA 400 [facility] [place] [address] 03/12/2024 9:00 AM EST Hem/Onc Treatment Hematology/Oncolog y Treatment, [place] 200 [facility] [place], [place] [phone] Nasreen, Chair 7 Hem Onc [facility] 200 [facility] [place] [address] 03/25/2024 9:00 AM EST Laboratory Laboratory, [facility] [address] [place] [phone] Terrance Long 132 [facility] [place] [address] 03/26/2024 11:15 AM EST Office Visit Hematology/Oncolog y [address] Nasreen [place] [address] [place] [address] Heriberto Wiley MD [address] [place] [address] 03/26/2024 12:00 PM EST Hem/Onc Treatment Hematology/Oncolog y Treatment, [place] [address] [place], [place] [address] Nasreen, Chair 1 Hem Onc [place] [address] [place] [address] 04/11/2024 2:00 PM EST Office Visit Urology Ashlie Louise [address] [place] [address] Manas Marie MD [address] [place] [address] 05/28/2024 7:30 AM EST Hospital Encounter OR GL, Operating Room, [facility] - 4th Floor 400 [facility] [place] [phone] Timoteo Ayala, DO 100 [place] [facility] [place] [address] 05/28/2024 7:30 AM EST - 05/28/2024 8:16 AM EST Surgery OR GL, Operating Room, [facility] - 4th Floor [address] [place] [phone] Timoteo Ayala, DO [address] [place], [place] [address] COLONOSCOPY FLEXIBLE PROXIMAL DIAGNOSTIC 07/19/2024 11:30 AM EDT Office Visit Cardiology, [facility] [address] [place] [address] Parveen, Ciro J, DO [address] [place] [address] 02/03/2025 1:00 PM EDT Office Visit Gynecology/Obstetr ics Jim Long [address] [place] [address] Backer, SANDRA Murillo [address] [place] [address] Scheduled Procedures Name Priority Associated Diagnoses Date/Ti [...] this encounter Medical Devices Implanted Type Area Bilingual Loan Processor Device Identifier Shelf Expiration Date Model / Serial / Lot Power Port 8fr Sngl Lumen Plas - [id number] Implanted:Qty : 1 on 01/05/2023 by Jai Malcolm Jr., MD at OR [facility] Right: Chest CR BARD : PERIPHERAL VASCULAR [id number] 07/08/2024 [id number] / / [id number] documented as of this encounter Visit Diagnoses [...] Power of Attor johann? No Care Teams Gluer Machine Setup Operator Relationship Specialty Start Date End Date Lina Can MD [address] [place] [address] [place] [address] PCP - General Family Medicine 08/06/22 documented as of this encounter
--- OUTSIDE RECORDS SUMMARY | 2024-05-09 12:23 | External Medical Summary ---
Author Name Unknown Address Unknown Organization K0G:[facility] [address] [place] [address] Laboratory Report Ordering Provider Test Date Status DANNIELLE OLVERA 02/26/2024 08:26:32 Final Observation Date Value Abnormality Reference (Units ) Status BUN 02/26/2024 08:26:32 10 6-20 (mg/dL) Final Creatinine 02/26/2024 08:26:32 0.7 0.5-1.0 (mg/dL) Final Glomerular filtration rate/1.73 sq M.predicted [Volume Rate/Area] in Serum, Plasma or Blood by Creatinine-based formula (CKD-EPI) 02/26/2024 08:26:32 >90 >=60 (mL/min) Final eGFR is calculated based on the CKD-EPI 2020 equation. Sodium 02/26/2024 08:26:32 138 135-146 (m mol/L) Final Potassium 02/26/2024 08:26:32 3.9 3.5-5.1 (m mol/L) Final Cl 02/26/2024 08:26:32 102 98-107 (mm ol/L) Final CO2 02/26/2024 08:26:32 25 22-32 (mmo l/L) Final Anion gap 02/26/2024 08:26:32 11 7-15 (mmol /L) Final Glucose 02/26/2024 08:26:32 136 Above high normal 70 -120 (mg/dL) Final Albumin 02/26/2024 08:26:32 4.1 3.8-5.0 (g /dL) Final AST (Aspartate aminotransferase) 02/26/2024 08:26:32 13 10-35 (U/L) Fin al Alk Phos 02/26/2024 08:26:32 234 Above high normal 35 -130 (U/L) Final Bilirubin, Total 02/26/2024 08:26:32 0.4 <=1 .2 (mg/dL) Final Calcium 02/26/2024 08:26:32 9.5 8.4-10.2 ( mg/dL) Final Protein 02/26/2024 08:26:32 6.8 6.0-8.3 (g /dL) Final ALT (Alanine aminotransferase) 02/26/2024 08:26:32 6 Below low normal 10-35 (U/L) Final Performing Location [facility] [place] [address] - [address] [facility] [place] [address]
--- OUTSIDE RECORDS SUMMARY | 2024-05-09 12:23 | External Medical Summary ---
Author Name Unknown Address Unknown Organization K01:[facility] - [address] [place] [address] Laboratory Report Ordering Provider Test Date Status DANNIELLE OLVERA 02/26/2024 08:26:32 Final Observation Date Value Abnormality Reference (Units ) Status Magnesium 02/26/2024 08:26:32 2.1 1.5-2.6 (m g/dL) Final Performing Location [facility] - [address] [place] [address]
--- OUTSIDE RECORDS SUMMARY | 2024-05-09 12:24 | External Medical Summary | Summary of Care ---
Author Name Unknown Organization [facility] Address [address] [place] [address] Phone [phone] Care Team Providers Care Bat Person Name Role Phone Lina Can MD Primary Care Prov ider Reason for Visit * Reason Onset Date Comments Precert In Process 02/22/2024 14 Prema Ledezma Encounter Details Date Type Department Care Team (Late st Contact Info) Description 02/21/2024 Telephone Hematology/Oncology [facility] [place] [address] [place] [address] Heriberto Wiley MD [address] [facility] [address] Precert In Process (14 Prema Ledezma ) Allergies Active Allergy Reactions Criticality Noted Date Comments Amoxicillin-Pot Clavulanate 07/13/19 GI upset Doxycycline 07/12/2022 GI upset Oxaliplatin Flushing High 07/27/2023 Shortness of breath Metoclopramide Hives 08/10/2022 documented as of this encounter (statuses as of 02/22/2024) Medications Eliquis 5 MG Oral Tablet Take [...] as of this encounter (statuses as of 02/22/2024) Active Problems Problem Noted Date Diagnosed Date [...] as of this encounter (statuses as of 02/22/2024) Immunizations No known immunizationsdocumented as of this [...] Sandoval OSA - 02/22/2024 10:48 AM EST [facility] Authorization Submission Submission Information: Medication: NEULASTA 6 MG/0.6 ML SYRINGE Portal used: [facility] Insurance: [facility] Authorization #/Santos: [id number] Prema Sandoval Medication Hedis Nurse 02/22/2024.10:48 AM * Telephone Encounter - Tereza Gray RN - 02/22/2024 8:44 AM EST ICD-10: c18.7, z76.89 Start date: STAT Drugs: Disp Refills Start End Neulasta 6 MG/0.6ML Subcutaneous Solution Prefilled Syringe (Pegfilgrastim) 1.2 mL 11 02/22/2024 -- Sig: Administer 6mg subq 24 hours after chemo pump disconnect Physician: Dr Almonet Comments: Due to national shortage of UDENYCA [...] for the patient. Thanks! Deepti Ramirez, PharmD [facility] 02/21/2024 8:38 AM documented in this encounter Plan of Treatment Upcoming Encounters Date Type Department Care Team (Late st Contact Info) Description 02/26/2024 9:00 AM EST Laboratory Laboratory, [facility] [place] [phone] Terrance Long [address] [facility] [place] [address] 02/27/2024 9:15 AM EST Hem[facility] [address] [place], [place] [address] Nasreen, Chair [address] [facility] [address] [facility] [place], [place] [address] 03/11/2024 9:00 AM EST Laboratory Laboratory, [facility] [address] [facility] [place] [phone] Terrance Long [address] [facility] [place] [address] 03/12/2024 8:30 AM EST Office Visit Hematology/Oncolog y [facility] [place] [address] [facility] [place], [place] [address] Alisia [place], SANDRA [address] [place] [address] [place] [address] 03/12/2024 9:00 AM EST Hem/Onc Treatment Hematology/Oncolog y Treatment, [place] [address] [facility], [place] [phone] Nasreen, Chair [address] [facility] [address] [facility] [place], [place] [address] 03/25/2024 9:00 AM EST Laboratory Laboratory, [facility] [address] [facility] [place] [phone] Terrance Long [address] [facility] [place] [address] 03/26/2024 11:15 AM EST Office Visit Hematology/Oncolog y [address] Nasreen [place] [address] [place], [place] [address] Heriberto Wiley MD [address] [place] [address] 03/26/2024 12:00 PM EST Hem/Onc Treatment Hematology/Oncolog y Treatment, [place] [address] [place], [place] [address] Nasreen, Chair 1 Hem Onc [address] [place], [place] [address] 04/11/2024 2:00 PM EST Office Visit Urology Ashlie Louise [address] [place] [address] Manas Marie MD [address] [place] [address] 05/28/2024 7:30 AM EST Hospital Encounter OR GL, Operating Room, [facility] - 4th Floor [address] [place] [phone] Timoteo Ayala, DO [address] [place] [address] 05/28/2024 7:30 AM EST - 05/28/2024 8:16 AM EST Surgery OR GL, Operating Room, [facility] - 4th Floor [address] [facility] [place] [phone] Timoteo Ayala, DO [address] [place], [place] [phone] COLONOSCOPY FLEXIBLE PROXIMAL DIAGNOSTIC 07/19/2024 11:30 AM EDT Office Visit Cardiology, [facility] [address] [place] [address] Ciro Saini, DO 132 [facility] [place] [address] 02/03/2025 1:00 PM EDT Office Visit Gynecology/Obstetr ics Jim Long [address] [place] [address] Back[place], SANDRA Murillo [address] [place] [address] Scheduled Procedures Name Priority Associated Diagnoses Date/Ti [...] Medical Devices Implanted Type Area Sheet [employer] Foreman Device Identifier Shelf Expiration Date Model / Serial / Lot Power Port 8fr Sngl Lumen Plas - [id number] Implanted:Qty : 1 on 01/05/2023 by Jai Malcolm Jr., MD at OR [facility] Right: Chest CR BARD : PERIPHERAL VASCULAR [id number] 07/08/2024 [id number] / / [id number] documented as of this encounter Advance Directives [...] Power of Attor johann? No Care Teams Bat Person Relationship Specialty Start Date End Date Lina Can MD [address] [place] [address] [place] [address] PCP - General Family Medicine 08/06/22 documented as of this encounter
--- OUTSIDE RECORDS SUMMARY | 2024-05-09 12:24 | External Medical Summary | Summary of Care ---
Author Name Unknown Organization [facility] Address [address] [place] [address] Phone [phone] Care Team Providers Care Supervisor Quality Control Name Role Phone Lina Can MD Primary Care Prov ider Reason for Visit * Reason Comments Chemotherapy C2 D1 Zirabev/Folfir i * Episode Based Medications (Routine) - Authorized Specialty Diagnoses / Procedures Referred By Contac t Referred To Contact Diagnoses Encounter for antineoplastic chemotherapy Malignant neoplasm of sigmoid colon (HCC) Procedures [place] LEUCOVORIN CALCIUM INJECTION [place] PALONOSETRON HCL [place] FLUOROURACIL INJECTION [place] IRINOTECAN INJECTION [place] INJ., ZIRABEV, 10 MG Chandni Almonte MD [address] [place] [address] [place] [address] Phone: tel: fax: Hematology/Oncology Treatment, [address] [address] Phone: tel: fax: Referral ID Status Reason Start Date Expiration Date V isits Requested Visits Authorized [id number] Authorized 11/22/2023 11/21/2024 [id number] Encounter Details Date Type Department Care Team (Latest Contact Info) Description 01/16/2024 11:30 AM EDT Hem/Onc Treatment Hematology/Oncolog y Treatment, [address] [address] Nasreen, Chair 8 Hem Onc [address] [place] [address] Encounter for antineoplastic chemotherapy*; Malignant neoplasm of [...] morning and 1 Tablet before bedtime. 4 Active Acetaminophen 500 MG Oral Tablet (Tylenol [...] 5 01/18/2024 12:25 PM EDT 4 Active Metoprolol Succinate ER 25 MG Oral Tablet Extended Release 24 Hour (toPROL XL)Indications:N ew onset atrial fibrillation (HCC) Take 1 Tablet by mouth in the morning. 30 Tablet 5 4 024 Discontin ued(Refil l) Hospital, Clinic, or Other Facility Administered Medication Ordered Dose Route Frequency Start Date End Date Status Fluorouracil (5-Fu) 4,000 mg in NSS 138 mL infusion 4000 mg IV CONTINUOUS 01/15/2024 01/17/2024 Discontinued documented as of this encounter (statuses [...] Sign Reading Time Taken Comments Blood Pressure 116/75 01/16/2024 12:38 PM EDT Pulse 86 01/16/2024 12:38 PM EDT Temperature 37.2 C (98.9 F) 01/16/2024 12:38 PM E DT Respiratory Rate 18 01/16/2024 12:38 PM EDT Oxygen Saturation 97% 01/16/2024 12:38 PM EDT Inhaled Oxygen Concentration - - Weight 54 kg (119 lb) 01/16/2024 12:38 PM EDT Height - - Body Mass Index 22.48 11/15/2023 10:01 AM EDT documented in this [...] Nursing Notes * Sanjana Browne RN - 01/16/2024 3:48 PM EDT Patient tolerated treatment without issue. Patient discharged with 46 hour 5 FU pump infusing to port. Goals: Patient will remain free from injury Possible barriers to meeting goals: Ambulating with IV pole Stability of the patient: Moderately stable - low risk of patient condition declining or worsening Summary regarding today's goals: Met: Patient remained free from harm. Pt discharged in stable condition. * Sanjana Browne RN - 01/16/2024 12:38 PM EDT Chair 11. Patient arrived for treatment. Labs reviewed with Dr. Wiley. Patient complained of left leg pain that went away radiation and last chemo but has returned since deferred cycles. Patient also complained of weight loss. States her leg is too painful to cook plus she has no appetite due to pain. Offered nutrition referral also asked if patient has help at home, she states her daughter helps. Port acce ssed with brisk blood return. Chemotherapy/Immunotherapy agents: ZIRABEV and FOLFIRI (leucovorin, 5-FU, & irinotecan) Consent for chemotherapy drug treatment complete, dated, and signed? yes, date - 11/22/23 Treatment lab parameters met? Yes Has treatment weight changed > than 10%? Yes - 130 lbs to 119 lbs Treatment preauthorized? Yes VITALS Filed Vitals: 01/16/24 1238 BP: 116/75 Pulse: 86 Resp: 18 Temp: 37.2 C (98.9 F) SpO2: 97% Weight: 54 kg (119 lb) Urine protein: NEGATIVE Patient education completed for [...] heat function. PRE-TREATMENT ASSESSMENT: NEURO: denies symptoms and fatigue:stable CV/RESP: denies symptoms GI/: denies symptoms OTHER: denies any additional symptoms PAIN: 5-6 pain location : left leg Safety and Risk for Injury Patient will remain free from injury. Ensure appropriate safety devices are available. Provide and maintain safe environment. documented in this encounter Plan of Treatment Upcoming Encounters Date Type Department Care Team (Late st Contact Info) Description 02/26/2024 9:00 AM EST Laboratory Laboratory, [facility] [address] [facility] [place] [address] Terrance Long 132 [facility] [place] [address] 02/27/2024 9:15 AM EST Hem/Onc Treatment Hematology/Oncolog y [facility] [phone] Nasreen, Chair 8 Hem Onc [address] [place] [address] 03/11/2024 9:00 AM EST Laboratory Laboratory, [facility] 132 [facility] [place] [phone] Terrance Long [facility] [address] 03/12/2024 8:30 AM EST Office Visit Hematology/Oncolog y [facility] [place] 200 [facility] [place] [phone] Alisia [place] CRNP 400 [facility] [place] [phone] 03/12/2024 9:00 AM EST Hem/Onc Treatment Hematology/Oncolog y [facility], [place] [facility] [phone] Nasreen, Chair 7 Hem Onc [address] [place] [address] 03/25/2024 9:00 AM EST Laboratory Laboratory, [facility] 132 [facility], [place] [phone] LongTerrance alva [facility] [address] 03/26/2024 11:15 AM EST Office Visit Hematology/Oncolog y [address] Nasreen [place] [address] [place] [address] Heriberto Wiley MD [address] [place] [address] 03/26/2024 12:00 PM EST Hem/Onc Treatment Hematology/Oncolog y Treatment, [place] [address] [place] [address] Nasreen, Chair 1 Hem Onc [address] [place] [address] 04/11/2024 2:00 PM EST Office Visit Urology Ashlie Louise [address] [place] [address] [place] [address] Manas Marie MD 27 [place] [address] 05/28/2024 7:30 AM EST Hospital Encounter OR [facility], Operating Room, [facility] - 4th Floor [address] [place] [phone] Timoteo Ayala, DO [address] [facility] [place] [address] 05/28/2024 7:30 AM EST - 05/28/2024 8:16 AM EST Surgery OR GL, Operating Room, [facility] - 4th Floor [address] [place] [phone] Timoteo Ayala, DO [address] [facility] [address] COLONOSCOPY FLEXIBLE PROXIMAL DIAGNOSTIC 07/19/2024 11:30 AM EDT Office Visit Cardiology, [facility] [address] [place] [address] Ciro Saini, DO [address] [place] [address] 02/03/2025 1:00 PM EDT Office Visit Gynecology/Obstetr ics [facility] [address] [place] [address] Nelli Farrell CRNP [address] [place] [address] Scheduled Procedures Name Priority Associated Diagnoses Date/Ti [...] this encounter Medical Devices Implanted Type Area Appian Developer Device Identifier Shelf Expiration Date Model / Serial / Lot Power Port 8fr Sngl Lumen Plas - [id number] Implanted:Qty : 1 on 01/05/2023 by Jai Malcolm Jr., MD at OR [facility] Right: Chest CR BARD : PERIPHERAL VASCULAR [id number] 07/08/2024 [id number] / / [id number] documented as of this encounter Visit Diagnoses [...] mg 0.4 mg, IV Push, ONCE, On Mon01/16/24 at 1245, For 1 dose, Administer prior to irinotecan.Indications:En counter for antineoplastic chemotherapy,Malignant neoplasm of sigmoid colon (HCC) Given 01/16/2024 1:30 PM EDT 0.4 mg bevaCIZumab-bvzr (Zirabev) 300 mg in NSS 100 mL infusion 300 mg (rounded from 291.5 mg = 5 mg/kg 58.3 kg Treatment plan Recorded weight), IV Piggyback, ONCE, 1 dose, On Mon01/16/24 at 1245, Administer over 30 MinutesIndications:Encoun ter for antineoplastic chemotherapy,Malignant neoplasm of sigmoid colon (HCC) Start Infusion 01/16/2024 12:51 PM EDT 300 mg 210 mL/hr dexAMETHasone (Decadron) tab 12 mg 12 mg, Oral, ONCE, On Mon01/16/24 at 1245, For 1 doseIndications:Encounter for antineoplastic chemotherapy,Malignant neoplasm of sigmoid colon (HCC) Given 01/16/2024 12:32 PM EDT 12 mg Fluorouracil (5-Fu) 4,000 mg for Home Infusion 4,000 mg (rounded from 3,792 mg = 2,400 mg/m2 1.58 m2 Treatment Plan BSA from Recorded weight), Intravenous, Administer over 46 Hours, Home Infusion Pharmacy to specify base solution and volume., ONCE, 1 dose, On Mon01/16/24 at 1115Indications:Encounter for antineoplastic chemotherapy,Malignant neoplasm of sigmoid colon (HCC) Start Infusion 01/16/2024 3:29 PM EDT 4,000 mg 3 mL/hr Fluorouracil (5-Fu) inj 650 mg 650 mg (rounded from 632 mg = 400 mg/m2 1.58 m2 Treatment Plan BSA from Recorded weight), IV Push, ONCE, 1 dose, On Mon01/16/24 at 1245Indications:Encounter for antineoplastic chemotherapy,Malignant neoplasm of sigmoid colon (HCC) Given 01/16/2024 3:23 PM EDT 650 mg hEParin 100 UNIT/ML Lock Flush inj 500 Units 500 Units (5 mL), IV Lock, PRN Other, IV Flush, Starting on Mon01/16/24 at 1205, Until Mon01/16/24 at 1953, For 24 hours, Do not flush if lock, PICC, or central line not in place; IV infusing or unable to flush.Indications:Encount er for antineoplastic chemotherapy,Malignant neoplasm of sigmoid colon (HCC) Given 01/16/2024 3:19 PM EDT 500 Units irinotecan HCl (Camptosar) 280 mg in D5W 500 mL infusion 280 mg (rounded from 284.4 mg = 180 mg/m2 1.58 m2 Treatment Plan BSA from Recorded weight), IV Piggyback, ONCE, 1 dose, On Mon01/16/24 at 1245, Administer over 90 Minutes, PROTECT FROM LIGHTIndications:Encounte r for antineoplastic chemotherapy,Malignant neoplasm of sigmoid colon (HCC) Start Infusion 01/16/2024 1:41 PM EDT 280 mg 349.33 mL/hr leucovorin calcium 650 mg in D5W 250 mL INFUSION 650 mg (rounded from 632 mg = 400 mg/m2 1.58 m2 Treatment Plan BSA from Recorded weight), IV Piggyback, ONCE, 1 dose, On Mon01/16/24 at 1245, Administer over 90 Minutes, Before 5-FUIndications:Encounter for antineoplastic chemotherapy,Malignant neoplasm of sigmoid colon (HCC) Start Infusion 01/16/2024 1:38 PM EDT 650 mg 170 mL/hr NSS infusion Intravenous, at 50 mL/hr, PRN, Starting on Mon01/16/24 at 0830, Until Mon01/16/24 at 1953, Maintenance lineIndications:Encounter for antineoplastic chemotherapy,Malignant neoplasm of sigmoid colon (HCC) Start Infusion 01/16/2024 12:32 PM EDT 50 mL/hr Palonosetron (Aloxi) inj SOLN 0.25 mg 0.25 mg, IV Push, ONCE, On Mon01/16/24 at 1245, For 1 dose, Restricted per [facility] antiemetic guidelinesIndications:Enc ounter for antineoplastic chemotherapy,Malignant neoplasm of sigmoid colon (HCC) Given 01/16/2024 12:32 PM EDT 0.25 mg sodium chloride 0.9 % flush central line 10 mL 10 mL, IV Push, PRN Other, IV Flush, Starting on Mon01/16/24 at 1205, Until Mon01/16/24 at 1953, For 24 hours, Do not flush if lock, PICC, or central line not in place; IV infusing or unable to flush.Indications:Encount er for antineoplastic chemotherapy,Malignant neoplasm of sigmoid colon (HCC) Given 01/16/2024 3:19 PM EDT 10 mL documented in this encounter Advance [...] of Attor johann? No Care Teams Supervisor Quality Control Relationship Specialty Start Date End Date Lina Can MD [address] [place] [address] [place] [address] PCP - General Family Medicine 08/06/22 documented as of this encounter
--- OUTSIDE RECORDS SUMMARY | 2024-05-09 12:24 | External Medical Summary | Summary of Care ---
Author Name Unknown Organization [facility] Address [address] [place] [address] Phone [phone] Care Team Providers Care Financial Processing Clerk Name Role Phone Lina Can MD Primary Care Prov ider Reason for Visit * Reason Onset Date Comments Precert In Process 02/22/2024 14 Prema Ledezma Encounter Details Date Type Department Care Team (Late st Contact Info) Description 02/21/2024 Telephone Hematology/Oncology [facility] [place] [address] [place] [address] Heriberto Wiley MD [address] [facility] [address] Precert In Process (14 Prema Ledezma ) [...] Sandoval OSA - 02/22/2024 10:48 AM EST [facility] Authorization Submission Submission Information: Medication: NEULASTA 6 MG/0.6 ML SYRINGE Portal used: [facility] Insurance: [facility] Authorization #/Santos: [id number] Prema Sandoval [employer] Journalist 02/22/2024.10:48 AM * Telephone Encounter - Tereza [...] forNEULASTA * Telephone Encounter - Deepti Ramirez [facility] - 02/21/2024 8:34 AM EST Clarissa, We have a script for Udenyca for this patient but it is currently on backorder until anticipated return in 04/2024. She will need a dose for next week. Can you please send in an alternative medication so we can fill for the patient. Thanks! Deepti Ramirez, PharmD [facility] 02/21/2024 8:38 AM documented in this encounter Plan of Treatment Upcoming Encounters Date Type Department Care Team (Late st Contact Info) Description 02/26/2024 9:00 AM EST Laboratory Laboratory, Jim [place], [place] [address] [place] [phone] Terrance Long [address] [place] [address] 02/27/2024 9:15 AM EST Hem/Onc Treatment Hematology/Oncolog y Treatment, [place] 200 [facility] Berta [place] [phone] Nasreen, Chair 8 Hem Onc [address] [place] [address] 03/11/2024 9:00 AM EST Laboratory Laboratory, [place] [address] [place] [address] Terrance Long 132 [facility] [place] [address] 03/12/2024 8:30 AM EST Office Visit Hematology/Oncolog y [facility] [place] 200 [facility] [phone] Alisia Birmingham CRNP [address] [place] [address] 03/12/2024 9:00 AM EST Hem/Onc Treatment Hematology/Oncolog y Treatment, [place] [address] [place] [phone] Nasreen, Chair 7 Hem Onc Scenery [address] [place] [address] 03/25/2024 9:00 AM EST Laboratory Laboratory, [facility] [address] [facility] 132 [facility] [address] 03/26/2024 11:15 AM EST Office Visit Hematology/Oncolog y Scenery [place] [address] [place] [phone] Heriberto Wiley MD [address] [place] [address] 03/26/2024 12:00 PM EST Hem/Onc Treatment Hematology/Oncolog y Treatment, [place] [address] [place] [phone] Nasreen, Chair 1 Hem Onc Scenery [address] [place] [address] 04/11/2024 2:00 PM EST Office Visit Urology Ashlie Louise [address] [place] [address] Manas Marie MD 27 [place] [address] 05/28/2024 7:30 AM EST Hospital Encounter OR [facility], Operating Room, [facility] - 4th Floor 400 [facility] [place] [phone] Timoteo Ayala, DO [address] [place] [address] 05/28/2024 7:30 AM EST - 05/28/2024 8:16 AM EST Surgery OR [facility]H, Operating Room, [facility] - 4th Floor [address] [place] [phone] Timoteo Ayala, DO [address] [place] [address] COLONOSCOPY FLEXIBLE PROXIMAL DIAGNOSTIC 07/19/2024 11:30 AM EDT Office Visit Cardiology, [facility] [address] [facility] [place] [address] Ciro Saini, [address] [place] [address] 02/03/2025 1:00 PM EDT Office Visit Gynecology/Obstetr ics [facility] [address] [place] [address] Nelli Farrell CRNP [address] [place] [address] Scheduled Procedures Name Priority Associated Diagnoses Date/Ti [...] this encounter Medical Devices Implanted Type Area Roofer Vinyl Coating Device Identifier Shelf Expiration Date Model / Serial / Lot Power Port 8fr Sngl Lumen Plas - [id number] Implanted:Qty : 1 on 01/05/2023 by Jai Malcolm Jr., MD at [facility] Right: Chest CR BARD : PERIPHERAL VASCULAR [id number] 07/08/2024 [id number] / / [id number] documented as of this encounter Advance Directives [...] of Attor johann? No Care Teams Financial Processing Clerk Relationship Specialty Start Date End Date Lina Can MD [address] [place] [address] [place] [address] PCP - General Family Medicine 08/06/22 documented as of this encounter
--- OUTSIDE RECORDS SUMMARY | 2024-05-09 12:24 | External Medical Summary | Summary of Care ---
Author Name Unknown Organization [facility] Address [address] [place] [address] Phone [phone] Care Team Providers Care Curriculum Consultant Name Role Phone Lina Can MD [...] INJ., ZIRABEV, 10 MG Chandni Almonte MD [address] [place] [address] [place] [address] Phone: tel: fax: Hematology/Oncology Treatment, [address] [address] Phone: tel: fax: Referral ID Status Reason Start Date Expiration Date V isits Requested Visits Authorized [id number] Authorized 11/22/2023 11/21/[phone] Encounter Details Date Type Department Care Team (Latest Contact Info) Description 01/16/2024 11:30 AM EDT Hem/Onc Treatment Hematology/Oncolog y Treatment, [address] [address] Nasreen, Chair 8 Hem Onc [address] [place] [address] Encounter for antineoplastic chemotherapy*; Malignant neoplasm of [...] Description 02/26/2024 9:00 AM EST [facility] 132 [facility] [place] [address] Terrance Long 132 [facility] [place] [address] 02/27/2024 9:15 AM EST Hem/Onc Treatment Hematology/Oncolog y [facility] 200 [facility] [phone] Nasreen, Chair 8 Hem Onc [address] [place] [address] 03/11/2024 9:00 AM EST Laboratory Laboratory, [facility] 132 [facility] [place] [phone] Terrance Long 132 [facility] [address] 03/12/2024 8:30 AM EST Office Visit Hematology/Oncolog y [facility] [place] 200 [facility] [place] [phone] Alisia Birmingham CRNP 400 [facility] [place] REN [phone] 03/12/2024 9:00 AM EST Hem/Onc Treatment Hematology/Oncolog y [facility], [place] 200 [facility] [phone] Nasreen, Chair 7 Hem Onc [address] [place] [address] 03/25/2024 9:00 AM EST Laboratory Laboratory, [facility] 132 [facility], [place] [phone] LongTerrance alva [facility] 132 [facility] [address] 03/26/2024 11:15 AM EST Office Visit Hematology/Oncolog y Scenery Nasreen [place] [address] [place] [address] Heriberto Wiley MD [address] [place] [address] 03/26/2024 12:00 PM EST Hem/Onc Treatment Hematology/Oncolog y Treatment, [place] [address] [place] [address] Nasreen, Chair 1 Hem Onc Scenery [address] [place] [address] 04/11/2024 2:00 PM EST Office Visit Urology Ashlie Louise [address] [place] [address] [place] [address] Manas Marie MD 27 [place] [address] 05/28/2024 7:30 AM EST Hospital Encounter OR GLH, Operating Room, [facility] - 4th Floor [address] [place] [phone] Timoteo Ayala, DO [address] [facility], [place] [address] 05/28/2024 7:30 AM EST - 05/28/2024 8:16 AM EST Surgery OR GL, Operating Room, [facility] - 4th Floor [address] [place] [phone] Timoteo Ayala, DO [address] [facility] [address] COLONOSCOPY FLEXIBLE PROXIMAL DIAGNOSTIC 07/19/2024 11:30 AM EDT Office Visit Cardiology, [facility] [address] [place] [address] Ciro Saini, DO [address] [place] [address] 02/03/2025 1:00 PM EDT Office Visit Gynecology/Obstetr ics [facility] [address] [place] [address] Nelli Farrell CRNP [address] [place] [address] Scheduled Procedures Name Priority Associated Diagnoses Date/Ti [...] this encounter Medical Devices Implanted Type Area Venereal Disease Investigator Device Identifier Shelf Expiration Date Model / Serial / Lot Power Port 8fr Sngl Lumen Plas - [id number] Implanted:Qty : 1 on 01/05/2023 by Jai Malcolm Jr., MD at OR [facility] Right: Chest CR BARD : PERIPHERAL VASCULAR [id number] 07/08/2024 [id number] / / [id number] documented as of this encounter Visit Diagnoses [...] at 1245, For 1 dose, Restricted per [facility] antiemetic guidelinesIndications:Enc ounter for antineoplastic chemotherapy,Malignant neoplasm [...] Power of Attor johann? No Care Teams Curriculum Consultant Relationship Specialty Start Date End Date Lina Can MD [address] [place] [address] [place] [address] PCP - General Family Medicine 08/06/22 documented as of this encounter
--- OUTSIDE RECORDS SUMMARY | 2024-05-09 12:24 | External Medical Summary | Summary of Care ---
Author Name Unknown Organization [facility] Address [address] [place] [address] Phone [phone] Care Team Providers Care Precision Agriculture Specialist Name Role Phone Lina Can MD [...] INJ., ZIRABEV, 10 MG Chandni Almonte MD [address] [place] [address] [place] [address] Phone: tel: fax: Hematology/Oncology Treatment, [address] [address] Phone: tel: fax: Referral ID Status Reason Start Date Expiration Date V isits Requested Visits Authorized [id number] Authorized 11/22/2023 11/21/[phone] Encounter Details Date Type Department Care Team (Latest Contact Info) Description 01/16/2024 11:30 AM EDT Hem/Onc Treatment Hematology/Oncolog y Treatment, [address] [address] Nasreen, Chair 8 Hem Onc [address] [place] [address] Encounter for antineoplastic chemotherapy*; Malignant neoplasm of [...] Description 02/26/2024 9:00 AM EST [facility], [facility] 132 [facility] [place] [address] Terrance Long 132 [facility] [place] [address] 02/27/2024 9:15 AM EST Hem/Onc Treatment Hematology/Oncolog y [facility] 200 [facility] [phone] Nasreen, Chair 8 Hem Onc [address] [place] [address] 03/11/2024 9:00 AM EST Laboratory Laboratory, [facility] 132 [facility] [place] [phone] Terrance Long 132 [facility] [place] [address] 03/12/2024 8:30 AM EST Office Visit Hematology/Oncolog y [facility] [place] 200 [facility] [place] [phone] Alisai Birmingham CRNP 400 [facility] [place] REN [phone] 03/12/2024 9:00 AM EST Hem/Onc Treatment Hematology/Oncolog y [facility], [place] 200 [facility] [phone] Nasreen, Chair 7 Hem Onc [address] [place] [address] 03/25/2024 9:00 AM EST Laboratory Laboratory, [facility] 132 [facility], [place] [phone] LongTerrance alva [facility] 132 [facility] [address] 03/26/2024 11:15 AM EST Office Visit Hematology/Oncolog y Scenery Nasreen [place] [address] [place] [address] Heriberto Wiley MD [address] [place] [address] 03/26/2024 12:00 PM EST Hem/Onc Treatment Hematology/Oncolog y Treatment, [place] [address] [place] [address] Nasreen, Chair 1 Hem Onc Scenery [address] [place] [address] 04/11/2024 2:00 PM EST Office Visit Urology Ashlie Louise [address] [place] [address] [place] [address] Manas Marie MD 27 [place] [address] 05/28/2024 7:30 AM EST Hospital Encounter OR GLH, Operating Room, [facility] - 4th Floor [address] [place] [phone] Timoteo Ayala, DO [address] [facility], [place] [address] 05/28/2024 7:30 AM EST - 05/28/2024 8:16 AM EST Surgery OR GL, Operating Room, [facility] - 4th Floor [address] [place] [phone] Timoteo Ayala, DO [address] [facility] [address] COLONOSCOPY FLEXIBLE PROXIMAL DIAGNOSTIC 07/19/2024 11:30 AM EDT Office Visit Cardiology, [facility] [address] [place] [address] Ciro Saini, DO [address] [place] [address] 02/03/2025 1:00 PM EDT Office Visit Gynecology/Obstetr ics [facility] [address] [place] [address] Nelli Farrell CRNP [address] [place] [address] Scheduled Procedures Name Priority Associated Diagnoses Date/Ti [...] this encounter Medical Devices Implanted Type Area Screen And Cyclone Repairer Device Identifier Shelf Expiration Date Model / Serial / Lot Power Port 8fr Sngl Lumen Plas - [id number] Implanted:Qty : 1 on 01/05/2023 by Jai Malcolm Jr., MD at OR [facility] Right: Chest CR BARD : PERIPHERAL VASCULAR [id number] 07/08/2024 [id number] / / [id number] documented as of this encounter Visit Diagnoses [...] at 1245, For 1 dose, Restricted per [facility] antiemetic guidelinesIndications:Enc ounter for antineoplastic chemotherapy,Malignant neoplasm [...] Power of Attor johann? No Care Teams Precision Agriculture Specialist Relationship Specialty Start Date End Date Lina Can MD [address] [place] [address] [place] [address] PCP - General Family Medicine 08/06/22 documented as of this encounter
--- OUTSIDE RECORDS SUMMARY | 2024-05-09 12:24 | External Medical Summary | Summary of Care ---
Author Name Unknown Organization [facility] Address [address] [place] [address] Phone [phone] Care Team Providers Care Business Process Representative Name Role Phone Lina Can MD Primary Care Prov ider Reason for Visit * Reason Comments Chemotherapy C2 D1 Zirabev/Folfir i * Episode Based Medications (Routine) - Authorized Specialty Diagnoses / Procedures Referred By Contac t Referred To Contact Diagnoses Encounter for antineoplastic chemotherapy Malignant neoplasm of sigmoid colon (HCC) Procedures PA LEUCOVORIN CALCIUM INJECTION PA PALONOSETRON HCL PA FLUOROURACIL INJECTION PA IRINOTECAN INJECTION PA INJ., ZIRABEV, 10 MG Chandni Almonte MD [address] [place] [address] [place] [address] Phone: tel: fax: Hematology/Oncology Treatment, [address] [address] Phone: tel: fax: Referral ID Status Reason Start Date Expiration Date V isits Requested Visits Authorized [id number] Authorized 11/22/2023 11/21/[phone] Encounter Details Date Type Department Care Team (Latest Contact Info) Description 01/16/2024 11:30 AM EDT Hem/Onc Treatment Hematology/Oncolog y Treatment, [address] [address] Nasreen, Chair 8 Hem Onc [address] [place] [address] Encounter for antineoplastic chemotherapy*; Malignant neoplasm of [...] Description 02/26/2024 9:00 AM EST [facility] 132 [facility] [place] [address] Terrance Long 132 [facility] [place] [address] 02/27/2024 9:15 AM EST Hem/Onc Treatment Hematology/Oncolog y [facility] 200 [facility] [phone] Nasreen, Chair 8 Hem Onc [address] [place] [address] 03/11/2024 9:00 AM EST Laboratory Laboratory, [facility] 132 [facility] [place] [phone] Terrance Long 132 [facility] [address] 03/12/2024 8:30 AM EST Office Visit Hematology/Oncolog y [facility] [place] 200 [facility] [place] [phone] Alisia Birmingahm CRNP 400 [facility] [place] REN [phone] 03/12/2024 9:00 AM EST Hem/Onc Treatment Hematology/Oncolog y [facility], [place] 200 [facility] [phone] Nasreen, Chair 7 Hem Onc [address] [place] [address] 03/25/2024 9:00 AM EST Laboratory Laboratory, [facility] 132 [facility], [place] [phone] LongTerrance alva [facility] 132 [facility] [address] 03/26/2024 11:15 AM EST Office Visit Hematology/Oncolog y [address]en[address] Nasreen [place] [address] [place] [address] Heriberto Wiley MD [address] [place] [address] 03/26/2024 12:00 PM EST Hem/Onc Treatment Hematology/Oncolog y Treatment, [place] [address] [place] [address] Nasreen, Chair 1 Hem Onc Scenery [address] [place] [address] 04/11/2024 2:00 PM EST Office Visit Urology Ashlie Louise [address] [place] [address] [place] [address] Manas Marie MD 27 [place] [address] 05/28/2024 7:30 AM EST Hospital Encounter OR GLH, Operating Room, [facility] - 4th Floor [address] [place] [phone] Timoteo Ayala, DO [address] [facility], [place] [address] 05/28/2024 7:30 AM EST - 05/28/2024 8:16 AM EST Surgery OR GL, Operating Room, [facility] - 4th Floor [address] [place] [phone] Timoteo Ayala, DO [address] [facility] [address] COLONOSCOPY FLEXIBLE PROXIMAL DIAGNOSTIC 07/19/2024 11:30 AM EDT Office Visit Cardiology, [facility] [address] [place] [address] Ciro Saini, DO [address] [place] [address] 02/03/2025 1:00 PM EDT Office Visit Gynecology/Obstetr ics [facility] [address] [place] [address] Nelli Farrell CRNP [address] [place] [address] Scheduled Procedures Name Priority Associated Diagnoses Date/Ti [...] this encounter Medical Devices Implanted Type Area Casing In Line Setter Device Identifier Shelf Expiration Date Model / Serial / Lot Power Port 8fr Sngl Lumen Plas - [id number] Implanted:Qty : 1 on 01/05/2023 by Jai Malcolm Jr., MD at OR [facility] Right: Chest CR BARD : PERIPHERAL VASCULAR [id number] 07/08/2024 [id number] / / [id number] documented as of this encounter Visit Diagnoses [...] at 1245, For 1 dose, Restricted per [facility] antiemetic guidelinesIndications:Enc ounter for [...] Power of Attor johann? No Care Teams Business Process Representative Relationship Specialty Start Date End Date Lina Can MD [address] [place] [address] [place] [address] PCP - General Family Medicine 08/06/22 documented as of this encounter
--- OUTSIDE RECORDS SUMMARY | 2024-05-09 12:24 | External Medical Summary | Summary of Care ---
Author Name Unknown Organization [facility] Address [address] [place] [address] Phone [phone] Care Team Providers Care Calibration Checker Name Role Phone Lina Can MD Primary Care Prov ider Reason for Visit * Reason Onset Date Comments Precert In Process 02/22/2024 14 Prema Santos Encounter Details Date Type Department Care Team (Late st Contact Info) Description 02/21/2024 Telephone Hematology/Oncology [facility] [address] [place] [address] Heriberto Wiley MD [address] [place] [address] Precert In Process (14 Prema Soares... Allergies Active Allergy Reactions Criticality Noted Date Comments Amoxicillin-Pot Clavulanate 07/13/19 23 GI upset Doxycycline 07/12/2022 GI upset Oxaliplatin Flushing High 07/27/2023 Shortness of breath Metoclopramide Hives 08/10/2022 documented as of this encounter (statuses as of 02/22/2024) Medications Eliquis 5 MG Oral Tablet Take 1 Tablet by mouth in the morning and 1 Tablet before bedtime. 07/25/202 4 Active Acetaminophen 500 MG Oral Tablet [...] Sandoval OSA - 02/22/2024 4:04 PM EST [facility] Authorization Submission Submission Information: Medication: Nyvepria Portal used: PromptOK Insurance: [facility] [employer] Authorization #/Santos: [id number] Prema Sandoval Medication Mechanical Technologist 02/22/2024.4:04 PM * Telephone Encounter - Tereza [...] Sandoval OSA - 02/22/2024 10:48 AM EST [facility] Authorization Submission Submission Information: Medication: NEULASTA 6 MG/0.6 ML SYRINGE Portal used: PromptPA Insurance: [facility] gold Authorization #/Santos: [id number] Prema Sandoval Medication Mechanical Technologist 02/22/2024.10:48 AM * Telephone Encounter - Tereza [...] * Telephone Encounter - Deepti Ramirez [facility] - 02/21/2024 8:34 AM EST Clarissa, We have a script for Udenyca for this patient but it is currently on backorder until anticipated return in 04/2024. She will need a dose for next week. Can you please send in an alternative medication so we can fill for the patient. Thanks! Deepti Ramirez, PharmD [facility] 02/21/2024 8:38 AM Electronically signed by Deepti Ramirez [facility] at 02/21/2024 8:38 AM EST documented in this encounter Plan of Treatment Upcoming Encounters Date Type Department Care Team (Late st Contact Info) Description 02/26/2024 9:00 AM EST [facility] 132 [facility] [place] [phone] Terrance Long [address] [place] [address] [place] [address] 02/27/2024 9:15 AM EST Hem/Onc Treatment Hematology/Oncolog y Treatment, [place] [address] [place] [phone] Nasreen, Chair 8 Hem Onc Scenery [address] [place] [address] 03/11/2024 9:00 AM EST [facility] [place] [facility] [place] [phone] Terrance Long 132 [place] [address] 03/12/2024 8:30 AM EST Office Visit Hematology/Oncolog y [place] [address] [place] [phone] Alisia Birmingham CRNP 400 [facility] [place] [address] 03/12/2024 9:00 AM EST Hem[facility] [address] Nasreen, Chair 7 Hem Onc [facility] 200 [facility] [place] [address] 03/25/2024 9:00 AM EST Laboratory Laboratory, [facility] 132 [place] [phone] [facility] 132 [place] [address] 03/26/2024 11:15 AM EST Office Visit Hematology/Oncolog y [facility] [place] [address] [place] [phone] Heriberto Wiley MD [address] [place] [address] 03/26/2024 12:00 PM EST Hem[facility]Onc [facility] 200 [facility], [place] [address] Nasreen, Chair 1 Hem Onc Scene 200 [facility] [place], [place] [address] 04/11/2024 2:00 PM EST Office Visit Urology Ashlie Louise [address] [place] [address] [place] [address] Manas Galloway MD [address] [place] [address] 05/28/2024 7:30 AM EST Hospital Encounter OR [facility], Operating Room, [facility] - 4th Floor 400 [facility] [place] [address] Timoteo Ayala, DO [address] [place] [address] 05/28/2024 7:30 AM EST - 05/28/2024 8:16 AM EST Surgery OR [facility], Operating Room, [facility] - 4th Floor [address] [place] [phone] Timoteo Ayala, DO [address] [place] [address] COLONOSCOPY FLEXIBLE PROXIMAL DIAGNOSTIC 07/19/2024 11:30 AM EDT Office Visit Cardiology, [facility] [address] [place] [address] Ciro Saini, DO [address] [place] [address] 02/03/2025 1:00 PM EDT Office Visit Gynecology/Obstetr [facility] [address] [place] [address] Nelli Farrell CRNP [address] [facility] [place] [address] Scheduled Procedures Name Priority Associated Diagnoses Date/Ti [...] this encounter Medical Devices Implanted Type Area Piece Dyer Device Identifier Shelf Expiration Date Model / Serial / Lot Power Port 8fr Sngl Lumen Plas - [id number] Implanted:Qty : 1 on 01/05/2023 by Jai Malcolm Jr., MD at [facility] Right: Chest CR BARD : PERIPHERAL VASCULAR [id number] 07/08/2024 [id number] / / [id number] documented as of this encounter Advance Directives [...] Power of Attor johann? No Care Teams Calibration Checker Relationship Specialty Start Date End Date Lina Can MD [address] [place] [address] [place] Patel [phone] PCP - General Family Medicine 08/06/22 documented as of this encounter
--- OUTSIDE RECORDS SUMMARY | 2024-05-09 12:24 | External Medical Summary | Summary of Care ---
Author Name Unknown Organization [facility] Address [address] [place] [address] Phone [phone] Care Team Providers Care Negotiator Name Role Phone Lina Can MD Primary Care Prov ider Encounter Details Date Type Department Care Team (Late st Contact Info) Description 02/22/2024 Orders Only Hematology/Oncology, [facility] [address] [place] [address] Chandni Almonte MD [address] [place] [address] Allergies Active Allergy Reactions Criticality Noted Date [...] 02/26/2024 9:00 AM EST Laboratory Laboratory, [facility] 132 [facility] [place] [address] Terrance Long 132 [facility] TIA [place] [address] 02/27/2024 9:15 AM EST Hem/Onc Treatment Hematology/Oncolog y [facility] 200 [facility] [phone] Nasreen, Chair 8 Hem Onc [address] [place] [address] 03/11/2024 9:00 AM EST Laboratory Laboratory, [facility] [address] [place] [phone] Terrance Long 132 [facility] [place] [address] 03/12/2024 8:30 AM EST Office Visit Hematology/Oncolog y [facility] [place] 200 [facility] [place] [phone] Alisia Birmingham CRNP 400 [facility] [place] [address] 03/12/2024 9:00 AM EST Hem/Onc Treatment Hematology/Oncolog y [facility] [place] 200 [facility] [phone] Nasreen, Chair 7 Hem Onc [place] [address] [place] [address] 03/25/2024 9:00 AM EST [facility], [facility] 132 [facility], [place] [phone] Terrance Long Ge 132 [facility] [place] [address] 03/26/2024 11:15 AM EST Office Visit Hematology/Oncolog y Scenery [place] [address] [place] [phone] Heriberto Wiley MD [address] [place] [address] 03/26/2024 12:00 PM EST Hem/Onc Treatment Hematology/Oncolog y Treatment, [place] [address] [place], [place] [address] Nasreen, Chair 1 Hem Onc Scenery [address] [place], [place] [address] 04/11/2024 2:00 PM EST Office Visit Urology Ashlie Louise [address] [place] [address] Manas Marie MD 27 [place] [address] 05/28/2024 7:30 AM EST Hospital Encounter OR [facility], Operating Room, [facility] - 4th Floor 400 [place] [address] Timoteo Ayala, DO [address] [facility], [place] [address] 05/28/2024 7:30 AM EST - 05/28/2024 8:16 AM EST Surgery OR [facility], Operating Room, [facility] - 4th Floor [address] [place] [phone] Timoteo Ayala, DO [address] [place] [address] COLONOSCOPY FLEXIBLE PROXIMAL DIAGNOSTIC 07/19/2024 11:30 AM EDT Office Visit Cardiology, [facility] [address] [place] [address] Ciro Saini DO [address] [place] [address] 02/03/2025 1:00 PM EDT Office Visit Gynecology/Obstetr ics [facility] [address] [place] [address] JhonerNelli CRNP [address] [place] [address] Scheduled Procedures Name Priority Associated Diagnoses Date/Ti [...] encounter Medical Devices Implanted Type Area Manager Multimedia Device Identifier Shelf Expiration Date Model / Serial / Lot Power Port 8fr Sngl Lumen Plas - [id number] Implanted:Qty : 1 on 01/05/2023 by Jai Malcolm Jr., MD at [facility] Right: Chest CR BARD : PERIPHERAL VASCULAR [id number] 07/08/2024 [id number] / / [id number] documented as of this encounter Advance Directives [...] Power of Attor johann? No Care Teams Negotiator Relationship Specialty Start Date End Date Lina Can MD [address] [place] [address] [place] Patel [phone] PCP - General Family Medicine 08/06/22 documented as of this encounter
--- OUTSIDE RECORDS SUMMARY | 2024-05-09 12:24 | External Medical Summary | Summary of Care ---
Author Name Unknown Organization [facility] Address [address] [place] [address] Phone [phone] Care Team Providers Care Music Manager Name Role Phone Lina Can MD Primary Care Prov ider Reason for Visit * Reason Onset Date Comments Precert In Process 02/22/2024 14 Prema Santos Encounter Details Date Type Department Care Team (Late st Contact Info) Description 02/21/2024 Telephone Hematology/Oncology [facility] [address] [place] [address] Heriberto Wiley MD [address] [place] [address] Precert In Process (14 Prema Soares... Allergies [...] Sandoval OSA - 02/22/2024 4:04 PM EST [facility] Authorization Submission Submission Information: Medication: Nyvepria Portal used: PromptNE Insurance: [facility] [employer] Authorization #/Santos: [id number] Prema Sandoval Medication Warp Scouring Vat Tender 02/22/2024.4:04 PM * Telephone Encounter - Tereza [...] Sandoval OSA - 02/22/2024 10:48 AM EST [facility] Authorization Submission Submission Information: Medication: NEULASTA 6 MG/0.6 ML SYRINGE Portal used: PromptPA Insurance: [facility] gold Authorization #/Santos: [id number] Prmea Sandoval Medication Warp Scouring Vat Tender 02/22/2024.10:48 AM * Telephone Encounter - Tereza [...] forNEULASTA * Telephone Encounter - Deepti Ramirez [facility] - 02/21/2024 8:34 AM EST Clarissa, We have a script for Udenyca for this patient but it is currently on backorder until anticipated return in 04/2024. She will need a dose for next week. Can you please send in an alternative medication so we can fill for the patient. Thanks! Deepti Ramirez, PharmD [facility] 02/21/2024 8:38 AM documented in this encounter Plan of Treatment Upcoming Encounters Date Type Department Care Team (Late st Contact Info) Description 02/26/2024 9:00 AM EST [facility] 132 [facility] [place] [phone] Terrance Long [address] [place] [address] [place] [address] 02/27/2024 9:15 AM EST Hem/Onc Treatment Hematology/Oncolog y Treatment, [place] [address] [place] [address] Nasreen, Chair 8 Hem Onc Scenery [address] [place] [address] 03/11/2024 9:00 AM EST [facility] [place] [facility] [place] [phone] Terrance Long 132 [place] [address] 03/12/2024 8:30 AM EST Office Visit Hematology/Oncolog y [place] [address] [place] [phone] Alisia Birmingham CRNP 400 [facility] [place] [address] 03/12/2024 9:00 AM EST Hem[facility] 200 [facility] [address] Nasreen, Chair 7 Hem Onc [facility] 200 [facility] [place] [address] 03/25/2024 9:00 AM EST Laboratory Laboratory, [facility] 132 [place] [phone] [facility] 132 [place] [address] 03/26/2024 11:15 AM EST Office Visit Hematology/Oncolog y [facility] [place] [address] [place] [phone] Heriberto Wiley MD [address] [place] [address] 03/26/2024 12:00 PM EST Hem[facility]Onc [facility] 200 [facility], [place] [address] Nasreen, Chair 1 Hem Onc Scene 200 [facility] [place], [place] [address] 04/11/2024 2:00 PM EST Office Visit Urology Ashlie Louise [address] [place] [address] Manas Galloway MD [address] [place] [address] 05/28/2024 7:30 AM EST Hospital Encounter OR [facility], Operating Room, [facility] - 4th Floor 400 [facility] [place] [address] Timoteo Ayala, DO [address] [place] [address] 05/28/2024 7:30 AM EST - 05/28/2024 8:16 AM EST Surgery OR [facility], Operating Room, [facility] - 4th Floor [address] [place] [phone] Timoteo Ayala, DO [address] [place] [address] COLONOSCOPY FLEXIBLE PROXIMAL DIAGNOSTIC 07/19/2024 11:30 AM EDT Office Visit Cardiology, [facility] [address] [place] [address] Ciro Saini, DO [address] [place] [address] 02/03/2025 1:00 PM EDT Office Visit Gynecology/Obstetr [facility] [address] [place] [address] Nelli Farrell CRNP [address] [facility] [place] [address] Scheduled Procedures Name Priority Associated Diagnoses Date/Ti [...] this encounter Medical Devices Implanted Type Area Child Abuse Worker Device Identifier Shelf Expiration Date Model / Serial / Lot Power Port 8fr Sngl Lumen Plas - [id number] Implanted:Qty : 1 on 01/05/2023 by Jai Malcolm Jr., MD at [facility] Right: Chest CR BARD : PERIPHERAL VASCULAR [id number] 07/08/2024 [id number] / / [id number] documented as of this encounter Advance Directives [...] Power of Attor johann? No Care Teams Music Manager Relationship Specialty Start Date End Date Lina Can MD [address] [place] [address] [place] Patel [phone] PCP - General Family Medicine 08/06/22 documented as of this encounter
--- OUTSIDE RECORDS SUMMARY | 2024-05-09 12:24 | External Medical Summary | Summary of Care ---
Author Name Unknown Organization [facility] Address [address] [place] [address] Phone [phone] Care Team Providers Care Poly Packer And Heat Sealer Name Role Phone Lina Can MD Primary Care Prov ider Reason for Visit * Reason Onset Date Comments Precert In Process 02/22/2024 14 Prema Ledezma Encounter Details Date Type Department Care Team (Late st Contact Info) Description 02/21/2024 Telephone Hematology/Oncology [facility] [place] [address] [place] [address] Heriberto Wiley MD [address] [facility] [address] Precert In Process (14 Prema Ledezma ) [...] Sandoval OSA - 02/22/2024 10:48 AM EST [facility] Authorization Submission Submission Information: Medication: NEULASTA 6 MG/0.6 ML SYRINGE Portal used: [facility] Insurance: [employer] [facility] Authorization #/Santos: [id number] Prema Sandoval Medication Nozzle And Sleeve Worker 02/22/2024.10:48 AM * Telephone Encounter - Tereza [...] for the patient. Thanks! Deepti Ramirez, PharmD [facility] 02/21/2024 8:38 AM documented in this encounter Plan of Treatment Upcoming Encounters Date Type Department Care Team (Late st Contact Info) Description 02/26/2024 9:00 AM EST Laboratory Laboratory, [facility] [place] [phone] Terrance Long 132 [facility] [place] [address] 02/27/2024 9:15 AM EST Hem[facility] [address] [place], [place] [address] Nasreen, Chair 8 Hem Onc [facility] 200 [facility] [place], [place] [address] 03/11/2024 9:00 AM EST Laboratory Laboratory, [facility] 132 [facility] [place] [phone] Terrance Long 132 [facility] [place] [address] 03/12/2024 8:30 AM EST Office Visit Hematology/Oncolog y [facility] [place] 200 [facility] [place], [place] [address] Alisia Birmingham, SANDRA [address] [place] [address] [place] [address] 03/12/2024 9:00 AM EST Hem/Onc Treatment Hematology/Oncolog y Treatment, [place] 200 [facility], [place] [phone] Nasreen, Chair 7 Hem Onc [facility] 200 [facility] [place], [place] [address] 03/25/2024 9:00 AM EST Laboratory Laboratory, [facility] [place] [phone] Terrance Long 132 [facility] [place] [address] 03/26/2024 11:15 AM EST Office Visit Hematology/Oncolog y Scenery Nasreen [place] [address] [place], [place] [address] Heriberto Wiley MD [address] [place] [address] 03/26/2024 12:00 PM EST Hem/Onc Treatment Hematology/Oncolog y Treatment, [place] [address] [place], [place] [address] Nasreen, Chair 1 Hem Onc [place]enery [address] [place], [place] [address] 04/11/2024 2:00 PM EST Office Visit Urology Ashlie Louise [address] [place] [address] [place] [address] Manas Marie MD [address] [place]ATARTI[place] [address] 05/28/2024 7:30 AM EST Hospital Encounter OR [facility], Operating Room, [facility] - 4th Floor 400 [facility] [place] [phone] Timoteo Ayala, DO [address] [place] [address] 05/28/2024 7:30 AM EST - 05/28/2024 8:16 AM EST Surgery OR [facility], Operating Room, [facility] - 4th Floor 400 [facility] [place] [phone] Timoteo Ayala, DO [address] [place], [place] [phone] COLONOSCOPY FLEXIBLE PROXIMAL DIAGNOSTIC 07/19/2024 11:30 AM EDT Office Visit Cardiology, [facility] 132 [facility] [place] [address] Ciro Saini, DO 132 [facility] [place] [address] 02/03/2025 1:00 PM EDT Office Visit Gynecology/Obstetr ics Jim Long [address] [place] [address] [place], SANDRA Murillo [address] [place] [address] Scheduled Procedures Name Priority Associated Diagnoses Date/Ti [...] this encounter Medical Devices Implanted Type Area Drafter Castings Device Identifier Shelf Expiration Date Model / Serial / Lot Power Port 8fr Sngl Lumen Plas - [id number] Implanted:Qty : 1 on 01/05/2023 by Jai Malcolm Jr., MD at OR [facility] Right: Chest CR BARD : PERIPHERAL VASCULAR [id number] 07/08/2024 [id number] / / [id number] documented as of this encounter Advance Directives [...] Power of Attor johann? No Care Teams Poly Packer And Heat Sealer Relationship Specialty Start Date End Date Lina Can MD [address] [place] [address] [place] Patel [phone] PCP - General Family Medicine 08/06/22 documented as of this encounter
--- OUTSIDE RECORDS SUMMARY | 2024-05-09 12:24 | External Medical Summary | Summary of Care ---
Author Name Unknown Organization [facility] Address [address] [place] [address] Phone [phone] Care Team Providers Care Iron Launder Operator Name Role Phone Lina Can MD Primary Care Prov ider Reason for Visit * Reason Onset Date Comments Medication Refill 02/22/2024 Encounter Details Date Type Department Care Team (Late st Contact Info) Description 02/22/2024 Refill Hematology/Oncology Treatment, [place] [address] [place] [address] Chandni Almonte MD 200 [place] [address] Malignant neoplasm of sigmoid colon (HCC)*; Prevention [...] Encounter - Tereza Gray RN - 02/22/2024 8:46 AM EST Pended neulasta. documented in this encounter Plan of Treatment Upcoming Encounters Date Type Department Care Team (Late st Contact Info) Description 02/26/2024 9:00 AM EST Laboratory Laboratory, [facility] [address] [place] [phone] Terrance Long 132 [facility] [place] [address] 02/27/2024 9:15 AM EST Hem/Onc Treatment Hematology/Oncolog y Treatment, [place] 200 [facility] [address] [place], [place] [phone] Nasreen Chair 8 [facility] [address] 03/11/2024 9:00 AM EST Laboratory Laboratory, [facility] [address] [place] [address] Terrance Long 132 [facility] [place] [address] 03/12/2024 8:30 AM EST Office Visit Hematology/Oncolog y [facility] [place] [address] [facility] [phone] Alisia [place] CRNP 400 [place] [address] 03/12/2024 9:00 AM EST Hem/Onc Treatment Hematology/Oncolog y Treatment, [place] [address] [place] [phone] Nasreen, Chair 7 Hem Onc [address] 200 [facility] [place] [address] 03/25/2024 9:00 AM EST Laboratory Laboratory, [facility] 132 [facility] [phone] [facility] 132 [facility] [address] 03/26/2024 11:15 AM EST Office Visit [facility] [address] [place] [phone] Heriberto Wiley MD [address] [place] [address] 03/26/2024 12:00 PM EST Hem[facility]On[facility] [address] [place], [place] [phone] Nasreen, Chair 1 Hem Onc [place] 200 [facility] [place] [address] 04/11/2024 2:00 PM EST Office Visit Urology Ashlie Louise [address] [place] [address] Manas Marie MD 27 [place] [address] 05/28/2024 7:30 AM EST Hospital Encounter OR [facility], Operating Room, [facility] - 4th Floor 400 [facility] [place] [phone] Timoteo Ayala, DO [address] [place] [address] 05/28/2024 7:30 AM EST - 05/28/2024 8:16 AM EST Surgery [facility], Operating Room, [facility] - 4th Floor 400 [facility] [place] [address] Timoteo Ayala, DO [address] [place] [address] COLONOSCOPY FLEXIBLE PROXIMAL DIAGNOSTIC 07/19/2024 11:30 AM EDT Office Visit Cardiology, [facility] [address] [facility] [place] [address] Ciro Saini, [address] [place] [address] 02/03/2025 1:00 PM EDT Office Visit Gynecology/Obstetr ics [facility] [address] [facility] [place] [address] Nelli Farrell CRNP [address] [place] [address] Scheduled Procedures Name Priority Associated Diagnoses Date/Ti [...] this encounter Medical Devices Implanted Type Area Global Program Manager Device Identifier Shelf Expiration Date Model / Serial / Lot Power Port 8fr Sngl Lumen Plas - [id number] Implanted:Qty : 1 on 01/05/2023 by Jai Malcolm Jr., MD at [facility] Right: Chest CR BARD : PERIPHERAL VASCULAR [id number] 07/08/2024 [id number] / / [id number] documented as of this encounter Visit Diagnoses [...] Power of Attor johann? No Care Teams Iron Launder Operator Relationship Specialty Start Date End Date Lina Can MD [address] [place] [address] [place] Patel [phone] PCP - General Family Medicine 08/06/22 documented as of this encounter
--- OUTSIDE RECORDS SUMMARY | 2024-05-09 12:24 | External Medical Summary | Summary of Care ---
Author Name Unknown Organization [facility] Address [address] [place] [address] Phone [phone] Care Team Providers Care Park Manager Name Role Phone Lina Can MD Primary Care Prov ider Reason for Visit * Reason Onset Date Comments Medication Refill 02/22/2024 Encounter Details Date Type Department Care Team (Late st Contact Info) Description 02/22/2024 Refill Hematology/Oncology Treatment, [place] [address] [place] [address] Chandni Spicer MD 200 [place] [address] Malignant neoplasm of sigmoid colon (HCC)*; Prevention [...] Department Care Team (Lester Contact Info) Description 02/26/2024 9:00 AM EST Laboratory Laboratory, [facility] 132 [facility] [place] [phone] Terrance Long 132 [facility] [place] [address] 02/27/2024 9:15 AM EST Hem/Onc Treatment Hematology/Oncolog y Treatment, [place] 200 [facility] [address] Nasreen, Chair 8 Hem Onc [address] [place] [address] 03/11/2024 9:00 AM EST Laboratory Laboratory, [facility] 132 [facility] [place] [phone] Terrance Long 132 [facility] [place] [address] 03/12/2024 8:30 AM EST Office Visit Hematology/Oncolog y [facility] Nasreen [place] 200 [facility] [place] [address] Alisia [place], SANDRA 400 [facility] [place] [address] 03/12/2024 9:00 AM EST Hem/Onc Treatment Hematology/Oncolog y Treatment, [place] 200 [facility], [place] [phone] Nasreen, Chair 7 Hem Onc [address] [place] [address] 03/25/2024 9:00 AM EST Laboratory Laboratory, [facility] [address] [place] [phone] Terrance Long [facility] [place] [address] 03/26/2024 11:15 AM EST Office Visit Hematology/Oncolog y [address]enery Nasreen [place] [address] [place] [address] Heriberto Wiley MD [address] [place] [address] 03/26/2024 12:00 PM EST Hem/Onc Treatment Hematology/Oncolog y Treatment, [place] [address] [place] [address] Nasreen, Chair 1 Hem Onc [address] [place] [address] 04/11/2024 2:00 PM EST Office Visit Urology Ashlie Louise [address] [place] [address] Manas Marie MD [address] SYLVEST[place]AKUM[place] [address] 05/28/2024 7:30 AM EST Hospital Encounter OR [facility], Operating Room, [facility] - 4th Floor 400 [facility] [phone] Timoteo Ayala, DO 100 [address] [facility] [place] [address] 05/28/2024 7:30 AM EST - 05/28/2024 8:16 AM EST Surgery OR [facility], Operating Room, [facility] - 4th Floor 400 [facility] [phone] Timoteo Ayala, DO [address] [place], [place] [phone] COLONOSCOPY FLEXIBLE PROXIMAL DIAGNOSTIC 07/19/2024 11:30 AM EDT Office Visit Cardiology, [facility] [address] [place] [address] Ciro Saini, DO [address] [place] [address] 02/03/2025 1:00 PM EDT Office Visit Gynecology/Obstetr ics Jim Long [address] [place] [address] Back[place], NelliSANDRA Jenkins [address] [place] [address] Scheduled Procedures Name Priority Associated Diagnoses Date/Ti [...] this encounter Medical Devices Implanted Type Area Cone Machine Feeder Device Identifier Shelf Expiration Date Model / Serial / Lot Power Port 8fr Sngl Lumen Plas - [id number] Implanted:Qty : 1 on 01/05/2023 by Jai Malcolm Jr., MD at OR [facility] Right: Chest CR BARD : PERIPHERAL VASCULAR [id number] 07/08/2024 [id number] / / [id number] documented as of this encounter Visit Diagnoses [...] Power of Attor johann? No Care Teams Park Manager Relationship Specialty Start Date End Date Lina Can MD [address] [place] [address] [place] Patel [address] PCP - General Family Medicine 08/06/22 documented as of this encounter
--- OUTSIDE RECORDS SUMMARY | 2024-05-09 12:24 | External Medical Summary | Summary of Care ---
Author Name Unknown Organization [facility] Address [address] [place] [address] Phone [phone] Care Team Providers Care Ranch Manager Name Role Phone Lina Can MD Primary Care Prov ider Reason for Visit * Reason Comments Chemotherapy C2 D1 Zirabev/Folfir i * Episode Based Medications (Routine) - Authorized Specialty Diagnoses / Procedures Referred By Contac t Referred To Contact Diagnoses Encounter for antineoplastic chemotherapy Malignant neoplasm of sigmoid colon (HCC) Procedures LA LEUCOVORIN CALCIUM INJECTION LA PALONOSETRON HCL LA FLUOROURACIL INJECTION LA IRINOTECAN INJECTION LA INJ., ZIRABEV, 10 MG Chandni Almonte MD [address] [place] [address] [place] [address] Phone: tel: fax: Hematology/Oncology Treatment, [address] [address] Phone: tel: fax: Referral ID Status Reason Start Date Expiration Date V isits Requested Visits Authorized [id number] Authorized 11/22/2023 11/21/2024 999 [id number] Encounter Details Date Type Department Care Team (Latest Contact Info) Description 01/16/2024 11:30 AM EDT Hem/Onc Treatment Hematology/Oncolog y Treatment, [address] [address] Nasreen, Chair 8 Hem Onc [address] [place] [address] Encounter for antineoplastic chemotherapy*; Malignant neoplasm of [...] Description 02/26/2024 9:00 AM EST [facility] 132 [facility] [place] [address] Terrance Long 132 [facility] [place] [address] 02/27/2024 9:15 AM EST Hem/Onc Treatment Hematology/Oncolog y [facility] 200 [facility] [phone] Nasreen, Chair 8 Hem Onc [address] [place] [address] 03/11/2024 9:00 AM EST Laboratory Laboratory, [facility] 132 [facility] [place] [phone] Terrance Long 132 [facility] [address] 03/12/2024 8:30 AM EST Office Visit Hematology/Oncolog y [facility] [place] 200 [facility] [place] [phone] Alisia Birmingham CRNP 400 [facility] SIVAKUM[place] REN [phone] 03/12/2024 9:00 AM EST Hem/Onc Treatment Hematology/Oncolog y [facility], [place] 200 [facility] [phone] Nasreen, Chair 7 Hem Onc [address] [place] [address] 03/25/2024 9:00 AM EST Laboratory Laboratory, [facility] 132 [facility], [place] [address] LongTerrance alva [facility] 132 [facility] [address] 03/26/2024 11:15 AM EST Office Visit Hematology/Oncolog y [address] Nasreen [place] [address] [place] [address] Heriberto Wiley MD [address] [place] [address] 03/26/2024 12:00 PM EST Hem/Onc Treatment Hematology/Oncolog y Treatment, [place] [address] [place] [address] Nasreen, Chair 1 Hem Onc [address] [place] [address] 04/11/2024 2:00 PM EST Office Visit Urology Ashlie Louise [address] [place] [address] [place] [address] Manas Marie MD 27 [place] [address] 05/28/2024 7:30 AM EST Hospital Encounter [facility], Operating Room, [facility] - 4th Floor [address] [place] [phone] Timoteo Ayala, DO 100 [address] [facility] [place] [address] 05/28/2024 7:30 AM EST - 05/28/2024 8:16 AM EST Surgery OR [facility], Operating Room, [facility] - 4th Floor [address] [place] [phone] Timoteo Ayala, DO [address] [facility] [address] COLONOSCOPY FLEXIBLE PROXIMAL DIAGNOSTIC 07/19/2024 11:30 AM EDT Office Visit Cardiology, [facility] [address] [place] [address] Ciro Saini, DO [address] [place] [address] 02/03/2025 1:00 PM EDT Office Visit Gynecology/Obstetr ics [facility] [address] [place] [address] Nelli Farrell CRNP [address] [place] [address] Scheduled Procedures Name Priority Associated Diagnoses Date/Ti [...] this encounter Medical Devices Implanted Type Area Condenser Tester Device Identifier Shelf Expiration Date Model / Serial / Lot Power Port 8fr Sngl Lumen Plas - [id number] Implanted:Qty : 1 on 01/05/2023 by Jai Malcolm Jr., MD at OR [facility] Right: Chest CR BARD : PERIPHERAL VASCULAR [id number] 07/08/2024 [id number] / / [id number] documented as of this encounter Visit Diagnoses [...] at 1245, For 1 dose, Restricted per [facility] antiemetic guidelinesIndications:Enc ounter for antineoplastic [...] Power of Attor johann? No Care Teams Ranch Manager Relationship Specialty Start Date End Date Lian Can MD [address] [place] [address] [place] Patel [address] PCP - General Family Medicine 08/06/22 documented as of this encounter
--- OUTSIDE RECORDS SUMMARY | 2024-05-09 12:25 | External Medical Summary | Summary of Care ---
Author Name Unknown Organization [facility] Address [address] [place] [address] Phone [phone] Care Team Providers Care Payroll Accountant Name Role Phone Lina Can MD Primary [...] INJ., ZIRABEV, 10 MG Chandni Almonte MD [address] [place] [address] [place] [address] Phone: tel: fax: Hematology/Oncology Treatment, [address] [address] Phone: tel: fax: Referral ID Status Reason Start Date Expiration Date V isits Requested Visits Authorized [id number] Authorized 11/22/2023 11/21/[id number] Encounter Details Date Type Department Care Team (Latest Contact Info) Description 01/16/2024 11:30 AM EDT Hem/Onc Treatment Hematology/Oncolog y Treatment, [address] [address] Narseen, Chair 8 Hem On[address] [place] [address] Encounter for antineoplastic chemotherapy*; Malignant neoplasm of sigmoid colon (HCC) Allergies Active Allergy Reactions Criticality Noted Date Comments Amoxicillin-Pot Clavulanate 07/13/19 23 GI upset Doxycycline 07/12/2022 GI upset Oxaliplatin Flushing High 07/27/2023 Shortness of breath Metoclopramide Hives 08/10/2022 documented as of this encounter (statuses as of 02/21/2024) Medications Eliquis 5 MG Oral Tablet Take [...] as of this encounter (statuses as of 02/21/2024) Active Problems Problem Noted Date Diagnosed Date [...] as of this encounter (statuses as of 02/21/2024) Immunizations No known immunizationsdocumented as of this [...] Description 02/26/2024 9:00 AM EST [facility] 132 [facility] [place] [address] Terrance Long 132 [facility] [place] [address] 02/27/2024 9:15 AM EST Hem/Onc Treatment Hematology/Oncolog y [facility] 200 [facility] [phone] Nasreen, Chair 8 Hem Onc [address] [place] [address] 03/11/2024 9:00 AM EST Laboratory Laboratory, [facility] 132 [facility] [place] [phone] Terrance Long 132 [facility] [address] 03/12/2024 8:30 AM EST Office Visit Hematology/Oncolog y [facility] [place] 200 [facility] [place] [phone] Alisia Birmingham CRNP 400 [facility] SIVAKUMAR REN [address] 03/12/2024 9:00 AM EST Hem/Onc Treatment Hematology/Oncolog y [facility], [place] 200 [facility] [phone] Nasreen, Chair 7 Hem Onc [address] [place] [address] 03/25/2024 9:00 AM EST Laboratory Laboratory, [facility] 132 [facility], [place] [phone] LongTerrance alva [facility] 132 [facility] [address] 03/26/2024 11:15 AM EST Office Visit Hematology/Oncolog y [address] Nasreen [place] [address] [place] [address] Heriberto Wiley MD [address] [place] [address] 03/26/2024 12:00 PM EST Hem/Onc Treatment Hematology/Oncolog y Treatment, [place] [address] [place] [address] Nasreen, Chair 1 Hem Onc Scenery [address] [place] [address] 04/11/2024 2:00 PM EST Office Visit Urology Ashlie Louise [address] [place] [address] [place] [address] Manas Marie MD 27 [place] [address] 05/28/2024 7:30 AM EST Hospital Encounter [facility], Operating Room, [facility] - 4th Floor [address] [place] [phone] Timoteo Ayala, DO 100 [address] [facility], [place] [address] 05/28/2024 7:30 AM EST - 05/28/2024 8:16 AM EST Surgery OR [facility], Operating Room, [facility] - 4th Floor [address] [place] [phone] Timoteo Ayala, DO [address] [facility] [address] COLONOSCOPY FLEXIBLE PROXIMAL DIAGNOSTIC 07/19/2024 11:30 AM EDT Office Visit Cardiology, [facility] [address] [place] [address] Ciro Saini, DO [address] [place] [address] 02/03/2025 1:00 PM EDT Office Visit Gynecology/Obstetr ics [facility] [address] [place] [address] Nelli Farrell CRNP [address] [place] [address] Scheduled Procedures Name Priority Associated Diagnoses Date/Ti [...] encounter Medical Devices Implanted Type Area Health Safety Coordinator Device Identifier Shelf Expiration Date Model / Serial / Lot Power Port 8fr Sngl Lumen Plas - [id number] Implanted:Qty : 1 on 01/05/2023 by Jai Malcolm Jr., MD at OR [facility] Right: Chest CR BARD : PERIPHERAL VASCULAR [id number] 07/08/2024 [id number] / / [id number] documented as of this encounter Visit Diagnoses [...] at 1245, For 1 dose, Restricted per [facility] antiemetic guidelinesIndications:Enc ounter for antineoplastic chemotherapy,Malignant [...] Power of Attor johann? No Care Teams Payroll Accountant Relationship Specialty Start Date End Date Lina Can MD [address] [place] [address] [place] Patel [address] PCP - General Family Medicine 08/06/22 documented as of this encounter
--- OUTSIDE RECORDS SUMMARY | 2024-05-09 12:25 | External Medical Summary | Summary of Care ---
Author Name Unknown Organization [facility] Address [address] [place] [address] Phone [phone] Care Team Providers Care Dispensing Optician Name Role Phone Lina Can MD Primary Care Prov ider Reason for Visit * Reason Comments Chemotherapy C2 D1 Zirabev/Folfir i * Episode Based Medications (Routine) - Authorized Specialty Diagnoses / Procedures Referred By Contac t Referred To Contact Diagnoses Encounter for antineoplastic chemotherapy Malignant neoplasm of sigmoid colon (HCC) Procedures [place] LEUCOVORIN CALCIUM INJECTION [place] PALONOSETRON HCL [place] FLUOROURACIL INJECTION [place] IRINOTECAN INJECTION [place] INJ., ZIRABEV, 10 MG Chandni Almonte MD [address] [place] [address] [place] [address] Phone: tel: fax: Hematology/Oncology Treatment, [address] [address] Phone: tel: fax: Referral ID Status Reason Start Date Expiration Date V isits Requested Visits Authorized [id number] Authorized 11/22/2023 11/21/[phone] Encounter Details Date Type Department Care Team (Latest Contact Info) Description 01/16/2024 11:30 AM EDT Hem/Onc Treatment Hematology/Oncolog y Treatment, [address] [address] Nasreen, Chair 8 Hem Onc [address] [place] [address] Encounter for antineoplastic chemotherapy*; Malignant neoplasm of [...] Description 02/26/2024 9:00 AM EST [facility] 132 [facility] [place] [address] Terrance Long [facility] [place] [address] 02/27/2024 9:15 AM EST Hem/Onc Treatment Hematology/Oncolog y [facility] 200 [facility] [phone] Nasreen, Chair 8 Hem Onc [address] [place] [address] 03/11/2024 9:00 AM EST Laboratory Laboratory, [facility] 132 [facility] [place] [phone] Terrance Long 132 [facility] [address] 03/12/2024 8:30 AM EST Office Visit Hematology/Oncolog y [facility] [place] 200 [facility] [place] [phone] Alisia Birmingham CRNP 400 [facility] SIVAKUMAR REN [phone] 03/12/2024 9:00 AM EST Hem/Onc Treatment Hematology/Oncolog y [facility], [place] 200 [facility] [phone] Nasreen, Chair 7 Hem Onc [address] [place] [address] 03/25/2024 9:00 AM EST Laboratory Laboratory, [facility] 132 [facility], [place] [phone] LongTerrance alva [facility] 132 [facility] [address] 03/26/2024 11:15 AM EST Office Visit Hematology/Oncolog y [address] Nasreen [place] [address] [place] [address] Heriberto Wiley MD [address] [place] [address] 03/26/2024 12:00 PM EST Hem/Onc Treatment Hematology/Oncolog y Treatment, [place] [address] [place] [address] Nasreen, Chair 1 Hem Onc [address] [place] [address] 04/11/2024 2:00 PM EST Office Visit Urology Ashlie Louise [address] [place] [address] [place] [address] Manas Marie MD 27 [place] [address] 05/28/2024 7:30 AM EST Hospital Encounter [facility], Operating Room, [facility] - 4th Floor [address] [place] [phone] Timoteo Ayala, DO [address] [facility] [place] [address] 05/28/2024 7:30 AM EST - 05/28/2024 8:16 AM EST Surgery OR [facility], Operating Room, [facility] - 4th Floor [address] [place] [phone] Timoteo Ayala, DO [address] [facility] [address] COLONOSCOPY FLEXIBLE PROXIMAL DIAGNOSTIC 07/19/2024 11:30 AM EDT Office Visit Cardiology, [facility] [address] [place] [address] Ciro Saini, DO [address] [place] [address] 02/03/2025 1:00 PM EDT Office Visit Gynecology/Obstetr ics [facility] [address] [place] [address] Nelli Farrell CRNP [address] [place] [address] Scheduled Procedures Name Priority Associated Diagnoses Date/Ti [...] this encounter Medical Devices Implanted Type Area Flue Cleaner Device Identifier Shelf Expiration Date Model / Serial / Lot Power Port 8fr Sngl Lumen Plas - [id number] Implanted:Qty : 1 on 01/05/2023 by Jai Malcolm Jr., MD at OR [facility] Right: Chest CR BARD : PERIPHERAL VASCULAR [id number] 07/08/2024 [id number] / / [id number] documented as of this encounter Visit Diagnoses [...] 1245, For 1 dose, Restricted per [facility] antiemetic guidelinesIndications:Enc ounter for antineoplastic [...] Power of Attor johann? No Care Teams Dispensing Optician Relationship Specialty Start Date End Date Lina Can MD [address] [place] [address] [place] Patel [address] PCP - General Family Medicine 08/06/22 documented as of this encounter
--- OUTSIDE RECORDS SUMMARY | 2024-05-09 12:25 | External Medical Summary | Summary of Care ---
Author Name Unknown Organization [facility] Address [address] [place] [address] Phone [phone] Care Team Providers Care Corrections Counselor Name Role Phone Lina Can MD Primary Care Prov ider Reason for Visit * Reason Comments Chemotherapy Zirabev/FOLFIRI * Episode Based Medications (Routine) - Authorized Specialty Diagnoses / Procedures Referred By Contac t Referred To Contact Diagnoses Encounter for antineoplastic chemotherapy Malignant neoplasm of sigmoid colon (HCC) Procedures MT LEUCOVORIN CALCIUM INJECTION MT PALONOSETRON HCL MT FLUOROURACIL INJECTION MT IRINOTECAN INJECTION MT INJ., ZIRABEV, 10 MG Chandni Almonte MD [address] [place] [address], [place] [address] Phone: tel: fax: Hematology/Oncology Treatment, [address] [address] Phone: tel: fax: Referral ID Status Reason Start Date Expiration Date V isits Requested Visits Authorized [id number] Authorized 11/22/2023 11/21/2024 [id number] Encounter Details Date Type Department Care Team (Latest Contact Info) Description 01/30/2024 11:30 AM EDT Hem/Onc Treatment Hematology/Oncolog y Treatment, [address] [address] Nasreen Chair 2 Hem Onc [address] [place] [address] Encounter for antineoplastic chemotherapy*; Malignant neoplasm of sigmoid colon (HCC) Allergies Active Allergy Reactions Criticality Noted Date Comments Amoxicillin-Pot Clavulanate 07/13/19 23 GI upset Doxycycline 07/12/2022 GI upset Oxaliplatin Flushing High 07/27/2023 Shortness of breath Metoclopramide Hives 08/10/2022 documented as of this encounter (statuses as of 02/19/2024) Medications Eliquis 5 MG Oral Tablet Take 1 Tablet by mouth in the morning and 1 Tablet before bedtime. 4 Active Metoprolol Succinate ER 25 MG Oral Tablet Extended Release 24 Hour (toPROL XL)Indications:Ne w onset atrial fibrillation (HCC) Take 1 Tablet by mouth in the morning. 30 Tablet 5 4 Active Acetaminophen 500 MG Oral Tablet [...] 5 01/18/2024 12:25 PM EDT 4 Active Hospital, Clinic, or Other Facility Administered Medication Ordered Dose Route Frequency Start Date End Date Status Fluorouracil (5-Fu) 4,000 mg in NSS 138 mL infusion 4000 mg IV CONTINUOUS 01/29/2024 01/31/2024 Discontinued documented as of this encounter (statuses as of 02/19/2024) Active Problems Problem Noted Date Diagnosed Date [...] as of this encounter (statuses as of 02/19/2024) Immunizations No known immunizationsdocumented as of this [...] Sign Reading Time Taken Comments Blood Pressure 121/74 01/30/2024 11:47 AM EDT Pulse 80 01/30/2024 11:47 AM EDT Temperature 36.6 C (97.9 F) 01/30/2024 11:47 AM E DT Respiratory Rate 16 01/30/2024 11:47 AM EDT Oxygen Saturation 98% 01/30/2024 11:47 AM EDT Inhaled Oxygen Concentration - - Weight 53.8 kg (118 lb 9.6 oz) 01/30/2024 11:47 AM EDT Height - - Body Mass Index 22.41 11/15/2023 10:01 AM EDT documented in this [...] Progress Notes * Jacinto Delaney RN - 01/30/2024 2:04 PM EDT Chair 8. IV inserted by Gloria Coelho LPN. Fluids infusing per orders. Pt denies any current issues at this time. Discussed lab results with Dr. Wiley and ok to proceed with infusion. Alteration placed and pharmacy aware. Safety and Risk for Injury Patient will remain free from injury. Ensure appropriate safety devices are available. Provide and maintain safe environment. Patient instructed on use of heat and massage functions where applicable. Patient shown how to operate the heat function of the chair and to alert nursing staff if the chair feels too warm. Patient instructed on the risk of potential carrillo while using the heat function. Chemotherapy/Immunotherapy agents: Bevacizumab/FOLFIRI Consent for chemotherapy drug treatment complete, dated, and signed? yes, date - 11/22/23 Treatment lab parameters met? Yes Has treatment weight changed > than 10%? No Treatment preauthorized? Yes VITALS Filed Vitals: 01/30/24 1147 BP: 121/74 Pulse: 80 Resp: 16 Temp: 36.6 C (97.9 F) SpO2: 98% Weight: 53.8 kg (118 lb 9.6 oz) Urine protein: NEGATIVE Patient education completed [...] using the heat function. PRE-TREATMENT ASSESSMENT: NEURO: OTHER: headache/migraine , fatigue CV/RESP: denies symptoms GI/: denies symptoms OTHER: denies any additional symptoms PAIN: 0 documented in this encounter Nursing Notes * Jacinto Delaney RN - 01/30/2024 3:26 PM EDT Pt infusions completed. Pt denied any issues at this time. Pump connected, pump turned on and running and all clamps removed prior to patient leaving treatment room. Pt ambulated from treatment room in stable condition. Goals: Pt will remain free from injury. Possible barriers to meeting goals: IV Chemotherapy Stability of the patient: Moderately stable - low risk of patient condition declining or worsening Summary regarding today's goals: Met: Pt remained free from injury. * Tereza Gray RN - 01/29/2024 12:[address] 100. Per mago Kamara for treatment. documented in this encounter Plan of Treatment Upcoming Encounters Date Type Department Care Team (Late st Contact Info) Description 02/26/2024 9:00 AM EST [facility] [address] [place] [address] Terrance Long [address] [place] [address] 02/27/2024 9:15 AM EST Hem/Onc Treatment Hematology/Oncolog y Treatment, [place] [address] [place] [phone] Nasreen, Chair 8 Hem Onc [address] [address] [place] [address] 03/11/2024 9:00 AM EST Laboratory Laboratory, [facility] [place] [address] [place] [address] Terrance Long 132 [facility] [place] [address] 03/12/2024 8:30 AM EST Office Visit Hematology/Oncolog y [facility] Nasreen [place] [address] [place] [phone] Alisia Birmingham CRNP [address] [place] [address] [place] [address] 03/12/2024 9:00 AM EST Hem/Onc Treatment Hematology/Oncolog y Treatment, [place] [address] [place] [phone] Nasreen, Chair 7 Hem Onc [address] [place] [address] 03/25/2024 9:00 AM EST Laboratory Laboratory, [facility] [place] [facility] [phone] [facility] [address] 03/26/2024 11:15 AM EST Office Visit Hematology/Oncolog y Scenery Nasreen [place] [address] [place] [phone] Heriberto Wiley MD [address] [place] [address] 03/26/2024 12:00 PM EST Hem/Onc Treatment Hematology/Oncolog y Treatment, [place] [address] [place] [phone] Nasreen, Chair 1 Hem Onc [address] [place] [address] 04/11/2024 2:00 PM EST Office Visit Urology Ashlie Louise [address] [email or web address] [address] [place] [address] Manas Marie MD 27 [place] [address] 05/28/2024 7:30 AM EST Hospital Encounter OR GL, Operating Room, [facility] - 4th Floor [address] [place] [address] Timoteo Ayala, DO [address] [place] [address] 05/28/2024 7:30 AM EST - 05/28/2024 8:16 AM EST Surgery OR GLH, Operating Room, [facility] - 4th Floor [address] [facility] [phone] Timoteo Ayala, DO [address] [facility] [place] [address] COLONOSCOPY FLEXIBLE PROXIMAL DIAGNOSTIC 07/19/2024 11:30 AM EDT Office Visit Cardiology, [facility] [address] [place] [address] Ciro Saini DO [address] [place] [address] 02/03/2025 1:00 PM EDT Office Visit Gynecology/Obstetr ics [facility] [address] [place] [address] Nelli Farrell CRNP [address] [place] [address] Scheduled Procedures Name Priority Associated Diagnoses Date/Ti [...] encounter Medical Devices Implanted Type Area Food Service Worker Device Identifier Shelf Expiration Date Model / Serial / Lot Power Port 8fr Sngl Lumen Plas - [id number] Implanted:Qty : 1 on 01/05/2023 by Jai Malcolm Jr., MD at OR [facility] Right: Chest CR BARD : PERIPHERAL VASCULAR [id number] 07/08/2024 [id number] / / [id number] documented as of this encounter Visit Diagnoses [...] mg 0.4 mg, IV Push, ONCE, On Mon01/30/24 at 1230, For 1 dose, Administer prior to irinotecan.Indications:E ncounter for antineoplastic chemotherapy,Malignant neoplasm of sigmoid colon (HCC) Given 01/30/2024 1:29 PM EDT 0.4 mg bevaCIZumab-bvzr (Zirabev) 300 mg in NSS 100 mL infusion 300 mg (rounded from 291.5 mg = 5 mg/kg 58.3 kg Treatment plan Recorded weight), IV Piggyback, ONCE, 1 dose, On Mon01/30/24 at 1230, Administer over 30 MinutesIndications:Encou nter for antineoplastic chemotherapy,Malignant neoplasm of sigmoid colon (HCC) Start Infusion 01/30/2024 12:57 PM EDT 300 mg 210 mL/hr dexAMETHasone (Decadron) tab 12 mg 12 mg, Oral, ONCE, On Mon01/30/24 at 1230, For 1 doseIndications:Encounte r for antineoplastic chemotherapy,Malignant neoplasm of sigmoid colon (HCC) Given 01/30/2024 11:58 AM EDT 12 mg Fluorouracil (5-Fu) 4,000 mg for Home Infusion 4,000 mg (rounded from 3,792 mg = 2,400 mg/m2 1.58 m2 Treatment Plan BSA from Recorded weight), Intravenous, Administer over 46 Hours, Home Infusion Pharmacy to specify base solution and volume., ONCE, 1 dose, On Mon01/30/24 at 1115Indications:Encounte r for antineoplastic chemotherapy,Malignant neoplasm of sigmoid colon (HCC) Start Infusion 01/30/2024 1:15 PM EDT 4,000 mg 3 mL/hr Fluorouracil (5-Fu) inj 650 mg 650 mg (rounded from 632 mg = 400 mg/m2 1.58 m2 Treatment Plan BSA from Recorded weight), IV Push, ONCE, 1 dose, On Mon01/30/24 at 1230Indications:Encounte r for antineoplastic chemotherapy,Malignant neoplasm of sigmoid colon (HCC) Given 01/30/2024 3:12 PM EDT 650 mg irinotecan HCl (Camptosar) 280 mg in D5W 500 mL infusion 280 mg (rounded from 284.4 mg = 180 mg/m2 1.58 m2 Treatment Plan BSA from Recorded weight), IV Piggyback, ONCE, 1 dose, On Mon01/30/24 at 1230, Administer over 90 Minutes, PROTECT FROM LIGHTIndications:Encount er for antineoplastic chemotherapy,Malignant neoplasm of sigmoid colon (HCC) Start Infusion 01/30/2024 1:33 PM EDT 280 mg 349.33 mL/hr leucovorin calcium 650 mg in D5W 250 mL INFUSION 650 mg (rounded from 632 mg = 400 mg/m2 1.58 m2 Treatment Plan BSA from Recorded weight), IV Piggyback, ONCE, 1 dose, On Mon01/30/24 at 1230, Administer over 90 Minutes, Before 5-FUIndications:Encounte r for antineoplastic chemotherapy,Malignant neoplasm of sigmoid colon (HCC) Restarted 01/30/2024 1:33 PM EDT 433.3 mg/hr 170 mL/hr Start Infusion 01/30/2024 1:30 PM EDT 650 mg 170 mL/hr NSS infusion Intravenous, at 50 mL/hr, PRN, Starting on Mon01/30/24 at 0830, Until Mon01/30/24 at 1931, Maintenance lineIndications:Encounter for antineoplastic chemotherapy,Malignant neoplasm of sigmoid colon (HCC) Start Infusion 01/30/2024 11:59 AM EDT 50 mL/hr Palonosetron (Aloxi) inj SOLN 0.25 mg 0.25 mg, IV Push, ONCE, On Mon01/30/24 at 1230, For 1 dose, Restricted per [facility] antiemetic guidelinesIndications:Encounter for antineoplastic chemotherapy,Malignant neoplasm of sigmoid colon (HCC) Given 01/30/2024 11:58 AM EDT 0.25 mg sodium chloride 0.9 % flush central line 10 mL 10 mL, IV Push, PRN Other, IV Flush, Starting on Mon01/30/24 at 1148, Until Mon01/30/24 at 1931, For 24 hours, Do not flush if lock, PICC, or central line not in place; IV infusing or unable to flush.Indications:Encounter for antineoplastic chemotherapy,Malignant neoplasm of sigmoid colon (HCC) Given 01/30/2024 3:10 PM EDT 10 mL documented in this [...] Power of Attor johann? No Care Teams Corrections Counselor Relationship Specialty Start Date End Date Lina Can MD [address] [place] [address] [place] [address] PCP - General Family Medicine 08/06/22 documented as of this encounter
--- OUTSIDE RECORDS SUMMARY | 2024-05-09 12:25 | External Medical Summary | Summary of Care ---
Author Name Unknown Organization [facility] Address [address] [place] [address] Phone [phone] Care Team Providers Care Insole And Heel Stiffener Name Role Phone Lina Can MD Primary Care Prov ider Reason for Visit * Reason Comments Chemotherapy C2 D1 Zirabev/Folfir i * Episode Based Medications (Routine) - Authorized Specialty Diagnoses / Procedures Referred By Contac t Referred To Contact Diagnoses Encounter for antineoplastic chemotherapy Malignant neoplasm of sigmoid colon (HCC) Procedures WV LEUCOVORIN CALCIUM INJECTION WV PALONOSETRON HCL WV FLUOROURACIL INJECTION WV IRINOTECAN INJECTION WV INJ., ZIRABEV, 10 MG Chandni Almonte MD [address] [place] [address] [place] [address] Phone: tel: fax: Hematology/Oncology Treatment, [address] [address] Phone: tel: fax: Referral ID Status Reason Start Date Expiration Date V isits Requested Visits Authorized [id number] Authorized 11/22/2023 11/21/2024 999 [id number] Encounter Details Date Type Department Care Team (Latest Contact Info) Description 01/16/2024 11:30 AM EDT Hem/Onc Treatment Hematology/Oncolog y Treatment, [address] [phone] Nasreen, Chair 8 Hem Onc [address] [place] [address] Encounter for antineoplastic chemotherapy*; Malignant neoplasm of [...] from 11/25/2022: cT4b - Signed by Vinay Riec MD on 12/06/2022 Rash and nonspecific skin [...] Description 02/26/2024 9:00 AM EST [facility] 132 [facility] [place] [phone] Terrance Long 132 [facility] [place] [address] 02/27/2024 9:15 AM EST Hem/Onc Treatment Hematology/Oncolog y [facility] [phone] Nasreen, Chair 8 Hem Onc [address] [place] [address] 03/11/2024 9:00 AM EST Laboratory Laboratory, [facility] 132 [facility] [place] [phone] Terrance Long 132 [facility] [address] 03/12/2024 8:30 AM EST Office Visit Hematology/Oncolog y [facility] [place] 200 [facility] [place] [phone] Alisia Birmingham CRNP 400 [facility] [place] [phone] 03/12/2024 9:00 AM EST Hem/Onc Treatment Hematology/Oncolog y [facility] [place] [facility] [phone] Nasreen, Chair 7 Hem Onc [address] [place] [address] 03/25/2024 9:00 AM EST Laboratory Laboratory, [facility] 132 [facility], [place] [phone] [place] [facility] [address] 03/26/2024 11:15 AM EST Office Visit Hematology/Oncolog y [address] Nasreen [place] [address] [place] [address] Heriberto Wiley MD [address] [place] [address] 03/26/2024 12:00 PM EST Hem/Onc Treatment Hematology/Oncolog y Treatment, [place] [address] [place] [address] Nasreen, Chair 1 Hem Onc Scenery [address] [place] [address] 04/11/2024 2:00 PM EST Office Visit Urology Ashlie Louise [address] [place] [address] [place] [address] Manas Marie MD 27 [place] [address] 05/28/2024 7:30 AM EST Hospital Encounter OR GLH, Operating Room, [facility] - 4th Floor [address] [place] [phone] Timoteo Ayala, DO [address] [facility] [place] [address] 05/28/2024 7:30 AM EST - 05/28/2024 8:16 AM EST Surgery OR GL, Operating Room, [facility] - 4th Floor [address] [place] [phone] Timoteo Ayala, DO [address] [facility] [address] COLONOSCOPY FLEXIBLE PROXIMAL DIAGNOSTIC 07/19/2024 11:30 AM EDT Office Visit Cardiology, [facility] [address] [place] [address] Ciro Saini, DO [address] [place] [address] 02/03/2025 1:00 PM EDT Office Visit Gynecology/Obstetr ics [facility] [address] [place] [address] Nelli Farrell CRNP [address] [place] [address] Scheduled Procedures Name Priority Associated Diagnoses Date/Ti [...] this encounter Medical Devices Implanted Type Area Railroad Operating Engineer Device Identifier Shelf Expiration Date Model / Serial / Lot Power Port 8fr Sngl Lumen Plas - [id number] Implanted:Qty : 1 on 01/05/2023 by Jai Malcolm Jr., MD at OR [facility] Right: Chest CR BARD : PERIPHERAL VASCULAR [id number] 07/08/2024 [id number] / / [id number] documented as of this encounter Visit Diagnoses [...] at 1245, For 1 dose, Restricted per [facility] antiemetic guidelinesIndications:Enc ounter for antineoplastic [...] Power of Attor johann? No Care Teams Insole And Heel Stiffener Relationship Specialty Start Date End Date Lina Can MD [address] [place] [address] [place] [address] PCP - General Family Medicine 08/06/22 documented as of this encounter
--- OUTSIDE RECORDS SUMMARY | 2024-05-09 12:25 | External Medical Summary | Summary of Care ---
Author Name Unknown Organization [facility] Address [address] [place] [address] Phone [phone] Care Team Providers Care Mortgage Assistant Name Role Phone Lina Can MD Primary Care Prov ider Reason for Visit * Reason Comments Chemotherapy Zirabev/FOLFIRI * Episode Based Medications (Routine) - Authorized Specialty Diagnoses / Procedures Referred By Contac t Referred To Contact Diagnoses Encounter for antineoplastic chemotherapy Malignant neoplasm of sigmoid colon (HCC) Procedures HI LEUCOVORIN CALCIUM INJECTION HI PALONOSETRON HCL HI FLUOROURACIL INJECTION HI IRINOTECAN INJECTION HI INJ., ZIRABEV, 10 MG Chandni Almonte MD [address] [place] [address], [place] [address] Phone: tel: fax: Hematology/Oncology Treatment, [address] [address] Phone: tel: fax: Referral ID Status Reason Start Date Expiration Date V isits Requested Visits Authorized [id number] Authorized 11/22/2023 11/21/2024 999 [id number] Encounter Details Date Type Department Care Team (Latest Contact Info) Description 01/30/2024 11:30 AM EDT Hem/Onc Treatment Hematology/Oncolog y Treatment, [address] [phone] Nasreen Chair 2 Hem Onc [address] [place] [address] Encounter for antineoplastic chemotherapy*; Malignant neoplasm of [...] in this encounter Progress Notes * Jacinto Delaney, RN - 01/30/2024 2:04 PM EDT Chair [...] in this encounter Nursing Notes * Jacinto Delaney, RADHA - 01/30/2024 3:26 PM EDT Pt infusions [...] Description 02/26/2024 9:00 AM EST Laboratory Laboratory, [facility] [address] [place] [phone] Terrance Long [address] [place] [address] [place] [address] 02/27/2024 9:15 AM EST Hem/Onc Treatment Hematology/Oncolog y Treatment, [place] [facility] [address] Nasreen Chair 8 Hem Onc [facility] 200 [facility] [place] [address] 03/11/2024 9:00 AM EST Laboratory Laboratory, [facility] 132 [facility] [place] [phone] Terrance oLng 132 [facility] [place] [address] 03/12/2024 8:30 AM EST Office Visit Hematology/Oncolog y [facility] [place] 200 [facility] [place] [phone] Alisia Birmingham CRNP [address] [place] [address] [place] [address] 03/12/2024 9:00 AM EST Hem[facility] [address] [place] [address] Nasreen, Chair 7 Hem Onc [address] [place] [address] 03/25/2024 9:00 AM EST Laboratory Laboratory, [facility] 132 [place] [phone] [facility] 132 [place] [address] 03/26/2024 11:15 AM EST Office Visit Hematology/Oncolog y [facility] [place] [address] [place] [phone] Heriberto Wiley MD [address] [place] [address] 03/26/2024 12:00 PM EST Hem[facility] 200 [facility] [phone] Nasreen, Chair 1 Hem Onc [address]enery 200 [facility] [place] [address] 04/11/2024 2:00 PM EST Office Visit Urology Ashlie Louise [address] [place] [address] [place] [address] Manas Marie MD 27 [place] [address] 05/28/2024 7:30 AM EST Hospital Encounter OR GLH, Operating Room, [facility] - 4th Floor [address] [place] [phone] Timoteo Ayala, DO [address] [place] [address] 05/28/2024 7:30 AM EST - 05/28/2024 8:16 AM EST Surgery OR GLH, Operating Room, [facility] - 4th Floor [address] [place] [phone] Timoteo Ayala, DO [address] [place] [address] COLONOSCOPY FLEXIBLE PROXIMAL DIAGNOSTIC 07/19/2024 11:30 AM EDT Office Visit Cardiology, [facility] [address] [place] [address] Ciro Saini, [address] [place] [address] 02/03/2025 1:00 PM EDT Office Visit Gynecology/Obstetr ics [facility] [address] [place] [address] Nelli Farrell CRNP [address] [place] [address] Scheduled Procedures Name Priority Associated Diagnoses Date/Ti [...] this encounter Medical Devices Implanted Type Area Holistic Health Practitioner Device Identifier Shelf Expiration Date Model / Serial / Lot Power Port 8fr Sngl Lumen Plas - [id number] Implanted:Qty : 1 on 01/05/2023 by Jai Malcolm Jr., MD at OR [facility] Right: Chest CR BARD : PERIPHERAL VASCULAR [id number] 07/08/2024 [id number] / / [id number] documented as of this encounter Visit Diagnoses [...] at 1230, For 1 dose, Restricted per [facility] antiemetic guidelinesIndications:Encounter for antineoplastic chemotherapy,Malignant neoplasm of [...] Power of Attor johann? No Care Teams Mortgage Assistant Relationship Specialty Start Date End Date Lina Can MD [address] [place] [address] [place] [address] PCP - General Family Medicine 08/06/22 documented as of this encounter
--- OUTSIDE RECORDS SUMMARY | 2024-05-09 12:25 | External Medical Summary | Summary of Care ---
Author Name Unknown Organization [facility] Address [address] [place] [address] Phone [phone] Care Team Providers Care Media Assistant Name Role Phone Lina Can MD Primary Care Prov ider Reason for Visit * Reason Comments Procedure 5FU pump disconnect * Episode Based Medications (Routine) - Authorized Specialty Diagnoses / Procedures Referred By Contac t Referred To Contact Diagnoses Encounter for antineoplastic chemotherapy Malignant neoplasm of sigmoid colon (HCC) Procedures CO LEUCOVORIN CALCIUM INJECTION CO PALONOSETRON HCL CO FLUOROURACIL INJECTION CO IRINOTECAN INJECTION CO INJ., ZIRABEV, 10 MG Chandni Almonte MD [address] [place] [address] Phone: tel: fax: Hematology/Oncology Treatment, [address] [address] Phone: tel: fax: Referral ID Status Reason Start Date Expiration Date V isits Requested Visits Authorized [id number] Authorized 11/22/2023 11/21/2024 999 999 Encounter Details Date Type Department Care Team (Latest Contact Info) Description 01/18/2024 1:30 PM EDT Immunization/ Injection Hematology/Oncology Treatment, [address] [address] Nasreen Chair 8 Hem Onc [address] [place] [address] Encounter for antineoplastic chemotherapy*; Malignant neoplasm [...] Author No 11/25/2022 5:16 PM EDT Nikita Ramierz RN * Because of a physical, mental, [...] Nursing Notes * Sanjana Browne RN - 01/18/2024 1:41 PM EDT Chair 12 Patient here for 5 FU pump disconnect. Patient complained of heart burn and constipation. Discusseduse of Prilosec and Colace which she has in the home. VAD with brisk blood return and flushed with 10 ml NSS and Heparin 5 ml (100 units/ml). Bowie needle removed intact. Pt discharged in stable condition. documented in this encounter Plan of Treatment Upcoming Encounters Date Type Department Care Team (Late st Contact Info) Description 02/26/2024 9:00 AM EST Laboratory Laboratory, [facility] [phone] [facility] [address] 02/27/2024 9:15 AM EST Hem/Onc Treatment Hematology/Oncolog y Treatment, [place] [address] [place] [phone] Nasreen Chair 8 Hem Onc Scenery [address] [place] [address] 03/11/2024 9:00 AM EST Laboratory Laboratory, [facility] 132 [facility] [place] [address] Terrance Long [facility] [place], [place] [address] 03/12/2024 8:30 AM EST Office Visit Hematology/Oncolog y [facility] Nasreen [place] [address] [place], [place] [phone] Alisia Birmingham CRNP 400 [place] [address] 03/12/2024 9:00 AM EST Hem/Onc Treatment Hematology/Oncolog y [facility] 200 [facility], [place] [phone] Nasreen, Chair 7 Hem Onc Scenery [address] [place], [place] [address] 03/25/2024 9:00 AM EST Laboratory [facility], [facility] 132 [facility] [place] [address] Terrance Long [address] [facility] [place] [address] 03/26/2024 11:15 AM EST Office Visit H[facility] [place] [address] [place] [phone] Heriberto Wiley MD [address] [place] [address] 03/26/2024 12:00 PM EST Hem/Onc Treatment Hematology/Oncolog y Treatment, [place] 200 [facility], [place] [phone] Nasreen, Chair 1 Hem Onc Scenery [address] [place], [place] [address] 04/11/2024 2:00 PM EST Office Visit Urology Ashlie Louise [address] [place] [address] Manas Marie MD 27 [place] [address] 05/28/2024 7:30 AM EST Hospital Encounter OR [facility], Operating Room, [facility] - 4th Floor [address] [place] [phone] Timoteo Ayala, DO [address] [place] [address] 05/28/2024 7:30 AM EST - 05/28/2024 8:16 AM EST Surgery OR [facility], Operating Room, [facility] - 4th Floor [address] [place] [phone] Timoteo Ayala, DO [address] [place] [address] COLONOSCOPY FLEXIBLE PROXIMAL DIAGNOSTIC 07/19/2024 11:30 AM EDT Office Visit Cardiology, [facility] [address] [place] [address] Ciro Saini, DO [address] [place] [address] 02/03/2025 1:00 PM EDT Office Visit Gynecology/Obstetr ics [facility] [address] [place] [address] Nelli Farrell CRNP [address] [place] [address] Scheduled Procedures Name Priority Associated Diagnoses Date/Ti [...] this encounter Medical Devices Implanted Type Area Welder Fabricator Device Identifier Shelf Expiration Date Model / Serial / Lot Power Port 8fr Sngl Lumen Plas - [id number] Implanted:Qty : 1 on 01/05/2023 by Jai Malcolm Jr., MD at [facility] Right: Chest CR BARD : PERIPHERAL VASCULAR [id number] 07/08/2024 [id number] / / [id number] documented as of this encounter Visit Diagnoses [...] PRN Other, IV Flush, Starting on Shi 01/18/24 at 1326, Until Shi 01/18/24 at 1755, For 24 hours, Do not flush if lock, PICC, or central line not in place; IV infusing or unable to flush.Indications:Encounter for antineoplastic chemotherapy,Malignant neoplasm of sigmoid colon (HCC) Given 01/18/2024 1:31 PM EDT 500 Units sodium chloride 0.9 % flush central line 10 mL 10 mL, IV Push, PRN Other, IV Flush, Starting on Shi 01/18/24 at 1326, Until Shi 01/18/24 at 1755, For 24 hours, Do not flush if lock, PICC, or central line not in place; IV infusing or unable to flush.Indications:Encounter for antineoplastic chemotherapy,Malignant neoplasm of sigmoid colon (HCC) Given 01/18/2024 1:31 PM EDT 10 mL documented in this [...] Power of Attor johann? No Care Teams Media Assistant Relationship Specialty Start Date End Date Lina Cna MD [address] [place] [address] [place] [address] PCP - General Family Medicine 08/06/22 documented as of this encounter
--- OUTSIDE RECORDS SUMMARY | 2024-05-09 12:25 | External Medical Summary | Summary of Care ---
Author Name Unknown Organization [facility] Address [address] [place] [address] Phone [phone] Care Team Providers Care Inorganic Chemist Name Role Phone Lina Can MD Primary [...] INJ., ZIRABEV, 10 MG Chandni Almonte MD [address] [place] [address], [place] [address] Phone: tel: fax: Hematology/Oncology Treatment, [address] [address] Phone: tel: fax: Referral ID Status Reason Start Date Expiration Date V isits Requested Visits Authorized [id number] Authorized 11/22/2023 11/21/2024 999 999 Encounter Details Date Type Department Care Team (Latest Contact Info) Description 01/30/2024 11:30 AM EDT Hem/Onc Treatment Hematology/Oncolog y Treatment, [address] [address] Nasreen Chair 2 Hem Onc [address] [place] [address] Encounter for antineoplastic chemotherapy*; Malignant neoplasm of [...] Description 02/26/2024 9:00 AM EST Laboratory [facility] [address] [place] [address] Terrance Long [address] [place] [address] 02/27/2024 9:15 AM EST Hem/Onc Treatment Hematology/Oncolog y Treatment, [place] [address] [place] [phone] Nasreen, Chair 8 Hem Onc Scenery [address] [place] [address] 03/11/2024 9:00 AM EST Laboratory Laboratory, [facility] [place] [address] [place] [address] Terrance Long 132 [facility] [place] [address] 03/12/2024 8:30 AM EST Office Visit Hematology/Oncolog y [facility] Nasreen [place] [address] [place] [phone] Alisia Birmingham CRNP [address] [place] [address] [place] [address] 03/12/2024 9:00 AM EST Hem/Onc Treatment Hematology/Oncolog y Treatment, [place] [address] [place] [phone] Nasreen, Chair 7 Hem Onc Scenery [address] [place] [address] 03/25/2024 9:00 AM EST Laboratory Laboratory, [facility] [place] [facility] [phone] [facility] [address] 03/26/2024 11:15 AM EST Office Visit Hematology/Oncolog y Scenery Nasreen [place] [address] [place] [phone] Heriberto Wiley MD [address] [place] [address] 03/26/2024 12:00 PM EST Hem/Onc Treatment Hematology/Oncolog y Treatment, [place] [address] [place] [phone] Nasreen, Chair 1 Hem Onc Scenery [address] [place] [address] 04/11/2024 2:00 PM EST Office Visit Urology Ashlie Louise [address] [facility] 270 [place] [address] Manas Marie MD 27 [place] [address] 05/28/2024 7:30 AM EST Hospital Encounter [facility], Operating Room, [facility] - 4th Floor [address] [place] [phone] Timoteo Ayala, DO [address] [place] [address] 05/28/2024 7:30 AM EST - 05/28/2024 8:16 AM EST Surgery OR [facility], Operating Room, [facility] - 4th Floor 400 [facility] [place] [phone] Timoteo Ayala, DO [address] [facility] [place] [address] COLONOSCOPY FLEXIBLE PROXIMAL DIAGNOSTIC 07/19/2024 11:30 AM EDT Office Visit Cardiology, [facility] [address] [place] [address] Ciro Saini DO [address] [place] [address] 02/03/2025 1:00 PM EDT Office Visit Gynecology/Obstetr ics [facility] [address] [place] [address] Nelli Farrell CRNP [address] [place] [address] Scheduled Procedures Name Priority Associated Diagnoses Date/Ti [...] this encounter Medical Devices Implanted Type Area Operations Label Clerk Device Identifier Shelf Expiration Date Model / Serial / Lot Power Port 8fr Sngl Lumen Plas - [id number] Implanted:Qty : 1 on 01/05/2023 by Jai Malcolm Jr., MD at OR [facility] Right: Chest CR BARD : PERIPHERAL VASCULAR [id number] 07/08/2024 [id number] / / [id number] documented as of this encounter Visit Diagnoses [...] at 1230, For 1 dose, Restricted per [facility] antiemetic guidelinesIndications:Encounter for antineoplastic chemotherapy,Malignant neoplasm [...] Power of Attor johann? No Care Teams Inorganic Chemist Relationship Specialty Start Date End Date Lina Can MD [address] [place] [address] [place] [address] PCP - General Family Medicine 08/06/22 documented as of this encounter
--- OUTSIDE RECORDS SUMMARY | 2024-05-09 12:25 | External Medical Summary | Summary of Care ---
Author Name Unknown Organization [facility] Address [address] [place] [address] Phone [phone] Care Team Providers Care Fuel Technician Name Role Phone Lina Can MD Primary Care Prov ider Reason for Visit * Reason Onset Date Comments Medication Refill 02/19/2024 Encounter Details Date Type Department Care Team (Late st Contact Info) Description 02/19/2024 Refill Family Medicine [address] [phone] Lina Can MD [address] [place] [address] [place] [address] New onset atrial fibrillation (HCC) Allergies Active Allergy Reactions Criticality Noted [...] the morning. 90 Tablet 1 4 Active Metoprolol Succinate ER [...] encounter Miscellaneous Notes * Telephone Encounter - Lina Can MD - 02/19/2024 3:35 PM EST Signed Prescriptions: Disp Refills Metoprolol Succinate ER 25 MG Oral Tablet *90 Tab*1 Sig: Take 1 Tablet by mouth in the morning. Authorizing Provider: LINA CAN * Telephone Encounter - Isa Mcintosh RN - 02/19/2024 12:21 PM ESTPending Prescriptions: Disp Refills Metoprolol Succinate ER 25 MG Oral Tablet *90 Tab*1 Sig: Take 1 Tablet by mouth in the morning. * Telephone Encounter - Nyasia Aguiar OSA - 02/19/2024 11:58 AM EST Did you pend patient's preferred pharmacy and medication before forwarding?yes Pharmacy: [id number] [address] [facility] Pending Prescriptions: Disp Refills Metoprolol Succinate ER 25 MG Oral Tablet*30 Tab*5 Sig: Take 1 Tablet by mouth in the morning. Last Visit: 11/06/2023 (in office), Visit date not found (telemedicine) Next Visit: Visit date not found If no future appointments scheduled, and last appointment is greater than a year ago, please schedule patient for a follow-up appointment Last date the medication was ordered: 11.06.23 Is this request for a controlled substance?No 90 day refill request Urine Drug Screen:No results found for this [...] Description 02/26/2024 9:00 AM EST Laboratory Laboratory, [facility] 132 [place] [phone] Terrance Long 132 [facility] [place] [address] 02/27/2024 9:15 AM EST Hem/Onc Treatment Hematology/Oncolog y Treatment, [address] [address] Nasreen, Chair 8 Hem Onc Scenery 200 [facility] [address] 03/11/2024 9:00 AM EST Laboratory Laboratory, [facility] 132 [place] [address] Terrance Long 132 [facility] [place] [address] 03/12/2024 8:30 AM EST Office Visit Hematology/Oncolog y Scenery Nasreen [place] [address] [place], [place] [phone] Alisia Birmingham CRNP 400 [facility] [place] [address] 03/12/2024 9:00 AM EST Hem[facility] [phone] Nasreen, Chair 7 Hem Onc Scenery 200 [facility] [place], [place] [address] 03/25/2024 9:00 AM EST Laboratory Laboratory, [facility] 132 [place] [phone] [facility] 132 [facility] [address] 03/26/2024 11:15 AM EST Office Visit Hematology/Oncolog y [facility] [place] 200 [facility] [place], [place] [phone] Heriberto Wiley MD 200 [facility], [place] [address] 03/26/2024 12:00 PM EST Hem/Onc Treatment Hematology/Oncolog y [facility] 200 [facility], [place] [phone] Nasreen, Chair 1 Hem Onc Scenery 200 [facility] [place], [place] [address] 04/11/2024 2:00 PM EST Office Visit Urology Ashlie Louise [address] [place] [address] Manas Marie MD 27 [place] [address] 05/28/2024 7:30 AM EST Hospital Encounter OR [facility], Operating Room, [facility] - 4th Floor [address] [place] [address] Timoteo Ayala, DO [address] [place] [facility] [place] [address] 05/28/2024 7:30 AM EST - 05/28/2024 8:16 AM EST Surgery OR [facility], Operating Room, [facility] - 4th Floor [address] [place] [address] Timoteo Ayala, DO [address] [facility] [place] [address] COLONOSCOPY FLEXIBLE PROXIMAL DIAGNOSTIC 07/19/2024 11:30 AM EDT Office Visit Cardiology, [facility] [address] [place] [address] Ciro Saini, [address] [place] [address] 02/03/2025 1:00 PM EDT Office Visit Gynecology/Obstetr [facility] [address] [place] [address] Nelli Farrell CRNP [address] [place] [address] Scheduled Procedures Name Priority Associated Diagnoses Date/Ti [...] encounter Medical Devices Implanted Type Area Art Objects Repairer Device Identifier Shelf Expiration Date Model / Serial / Lot Power Port 8fr Sngl Lumen Plas - [id number] Implanted:Qty : 1 on 01/05/2023 by Jai Malcolm Jr., MD at OR [facility] Right: Chest CR BARD : PERIPHERAL VASCULAR [id number] 07/08/2024 [id number] / / [id number] documented as of this encounter Visit Diagnoses Diagnosis New onset atrial fibrillation (HCC) Atrial fibrillation Cancer of sigmoid colon (HCC) Malignant neoplasm [...] Power of Attor johann? No Care Teams Fuel Technician Relationship Specialty Start Date End Date Lina Can MD [address] [place] [address] [place] [address] PCP - General Family Medicine 08/06/22 documented as of this encounter
--- OUTSIDE RECORDS SUMMARY | 2024-05-09 12:25 | External Medical Summary | Summary of Care ---
Author Name Unknown Organization [facility] Address [address] [place] [address] Phone [phone] Care Team Providers Care Oil Well Cable Tool Operator Name Role Phone Lina Can MD [...] INJ., ZIRABEV, 10 MG Chandni Almonte MD [address] [place] [address] [place] [address] Phone: tel: fax: Hematology/Oncology Treatment, [address] [address] Phone: tel: fax: Referral ID Status Reason Start Date Expiration Date V isits Requested Visits Authorized [id number] Authorized 11/22/2023 11/21/2024 999 [id number] Encounter Details Date Type Department Care Team (Latest Contact Info) Description 01/16/2024 11:30 AM EDT Hem/Onc Treatment Hematology/Oncolog y Treatment, [address] [address] Nasreen, Chair 8 Hem Onc [address] [place] [address] Encounter for antineoplastic chemotherapy*; Malignant neoplasm of [...] Description 02/26/2024 9:00 AM EST Laboratory [facility], [facility] 132 [facility] [place] [address] Terrance Long 132 [facility] [place] [address] 02/27/2024 9:15 AM EST Hem/Onc Treatment Hematology/Oncolog y [facility] 200 [facility] [phone] Nasreen, Chair 8 Hem Onc [address] [place] [address] 03/11/2024 9:00 AM EST Laboratory Laboratory, [facility] 132 [facility] [place] [phone] Terrance Long 132 [facility] [address] 03/12/2024 8:30 AM EST Office Visit Hematology/Oncolog y [facility] [place] 200 [facility] [place] [phone] Alisia Birmingham CRNP 400 [facility] [place] [address] 03/12/2024 9:00 AM EST Hem/Onc Treatment Hematology/Oncolog y [facility], [place] 200 [facility] [phone] Nasreen, Chair 7 Hem Onc [address] [place] [address] 03/25/2024 9:00 AM EST Laboratory Laboratory, [facility] 132 [facility], [place] [phone] LongTerrance alva [facility] 132 [facility] [address] 03/26/2024 11:15 AM EST Office Visit Hematology/Oncolog y [address] Nasreen [place] [address] [place] [address] Heriberto Wiley MD [address] [place] [address] 03/26/2024 12:00 PM EST Hem/Onc Treatment Hematology/Oncolog y Treatment, [place] [address] [place] [address] Nasreen, Chair 1 Hem Onc Scenery [address] [place] [address] 04/11/2024 2:00 PM EST Office Visit Urology Ashlie Louise [address] [place] [address] [place] [address] Manas Marie MD 27 [place] [address] 05/28/2024 7:30 AM EST Hospital Encounter OR [facility], Operating Room, [facility] - 4th Floor [address] [phone] Timoteo Ayala, DO [address] [facility] [place] [address] 05/28/2024 7:30 AM EST - 05/28/2024 8:16 AM EST Surgery OR [facility], Operating Room, [facility] - 4th Floor [address] [place] [phone] Timoteo Ayala, DO [address] [facility] [address] COLONOSCOPY FLEXIBLE PROXIMAL DIAGNOSTIC 07/19/2024 11:30 AM EDT Office Visit Cardiology, [facility] [address] [place] [address] Ciro Saini, DO [address] [place] [address] 02/03/2025 1:00 PM EDT Office Visit Gynecology/Obstetr ics [facility] [address] [place] [address] Nelli Farrell CRNP [address] [place] [address] Scheduled Procedures Name Priority Associated Diagnoses Date/Ti [...] this encounter Medical Devices Implanted Type Area Robotics Engineer Device Identifier Shelf Expiration Date Model / Serial / Lot Power Port 8fr Sngl Lumen Plas - [id number] Implanted:Qty : 1 on 01/05/2023 by Jai Malcolm Jr., MD at OR [facility] Right: Chest CR BARD : PERIPHERAL VASCULAR [id number] 07/08/2024 [id number] / / [id number] documented as of this encounter Visit Diagnoses [...] at 1245, For 1 dose, Restricted per [facility] antiemetic guidelinesIndications:Enc ounter for antineoplastic chemotherapy,Malignant [...] Power of Attor johann? No Care Teams Oil Well Cable Tool Operator Relationship Specialty Start Date End Date Lina Can MD [address] [place] [address] [place] [address] PCP - General Family Medicine 08/06/22 documented as of this encounter
--- OUTSIDE RECORDS SUMMARY | 2024-05-09 12:25 | External Medical Summary | Summary of Care ---
Author Name Unknown Organization [facility] Address [address] [place] [address] Phone [phone] Care Team Providers Care Tannery Worker Name Role Phone Lina Can MD Primary Care Prov ider Reason for Visit * Reason Onset Date Comments Medication Question 02/21/2024 Precert Future 02/21/2024 Neulasta prescri ption Encounter Details Date Type Department Care Team (Late st Contact Info) Description 02/21/2024 Telephone Hematology/Oncology [facility] Nasreen [place] [address] [place] [phone] Heriberto Wiley MD [address] [place] [address] Medication Question; Precert Future (Neula... Allergies Active Allergy Reactions Criticality Noted Date [...] for the patient. Thanks! Deepti Ramirez, PharmD [facility] 02/21/2024 8:38 AM documented in this encounter Plan of Treatment Upcoming Encounters Date Type Department Care Team (Late st Contact Info) Description 02/26/2024 9:00 AM EST Laboratory Laboratory, [facility] 132 [facility] [place] [address] Terrance Long 132 [facility] [place] [address] 02/27/2024 9:15 AM EST Hem/Onc Treatment Hematology/Oncolog y Treatment, [place] [address] [place] [address] Nasreen, Chair 8 Hem Onc Scenery [address] [place], [place] [address] 03/11/2024 9:00 AM EST Laboratory Laboratory, [facility] 132 [facility], [place] [phone] Terrance Long Ge 132 [place] [address] 03/12/2024 8:30 AM EST Office Visit Hematology/Oncolog y Scenery Nasreen [place] [address] [place], [place] [phone] Alisia Birmingham CRNP [address] [place] [address] 03/12/2024 9:00 AM EST Hem/Onc Treatment Hematology/Oncolog y [facility] 200 [facility] Berta [place], [place] [phone] Nasreen, Chair 7 Hem Onc Scenery [address] [place], [place] [address] 03/25/2024 9:00 AM EST Laboratory Laboratory, [facility] 132 [facility], [place] [phone] Terrance Long 132 [facility], [place] [address] 03/26/2024 11:15 AM EST Office Visit Hematology/Oncolog y Scenery Nasreen [place] [address] [place] [phone] Heriberto Wiley MD [address] [place] [address] 03/26/2024 12:00 PM EST Hem/Onc Treatment Hematology/Oncolog y [facility] 200 [facility] Berta [place], [place] [address] Nasreen, Chair 1 Hem Onc Scenery [address] [place], [place] [address] 04/11/2024 2:00 PM EST Office Visit Urology Ashlie Louise [address] [place] [address] Manas Marie MD [address] [place] [address] 05/28/2024 7:30 AM EST Hospital Encounter OR [facility], Operating Room, [facility] - 4th Floor 400 [facility] [place] [phone] Timoteo Ayala, DO [address] [place] [address] 05/28/2024 7:30 AM EST - 05/28/2024 8:16 AM EST Surgery OR [facility], Operating Room, [facility] - 4th Floor 400 [facility] [place] [phone] Timoteo Ayala, DO [address] [place] [address] COLONOSCOPY FLEXIBLE PROXIMAL DIAGNOSTIC 07/19/2024 11:30 AM EDT Office Visit Cardiology, [facility] [address] [place] [address] Ciro Saini, DO [address] [place] [address] 02/03/2025 1:00 PM EDT Office Visit Gynecology/Obstetr ics [facility] [address] [place] [phone] Nelli Farrell CRNP [address] [place] [address] Scheduled Procedures Name Priority Associated Diagnoses Date/Ti [...] this encounter Medical Devices Implanted Type Area Color Print Inspector Device Identifier Shelf Expiration Date Model / Serial / Lot Power Port 8fr Sngl Lumen Plas - [id number] Implanted:Qty : 1 on 01/05/2023 by Jai Malcolm Jr., MD at OR [facility] Right: Chest CR BARD : PERIPHERAL VASCULAR [id number] 07/08/2024 [id number] / / [id number] documented as of this encounter Advance Directives [...] Power of Attor johann? No Care Teams Tannery Worker Relationship Specialty Start Date End Date Lina Can MD [address] [place] [address] [place] [address] PCP - General Family Medicine 08/06/22 documented as of this encounter
--- OUTSIDE RECORDS SUMMARY | 2024-05-09 12:26 | External Medical Summary | Summary of Care ---
Author Name Unknown Organization [facility] Address [address] [place] [address] Phone [phone] Care Team Providers Care Farm Product Purchaser Name Role Phone Lina Can MD Primary [...] ZIRABEV, 10 MG Chandni Almonte MD [address] [place] [address], [place] [address] Phone: tel: fax: Hematology/Oncology Treatment, [address] [address] Phone: tel: fax: Referral ID Status Reason Start Date Expiration Date V isits Requested Visits Authorized [id number] Authorized 11/22/2023 11/21/2024 [id number] Encounter Details Date Type Department Care Team (Latest Contact Info) Description 01/30/2024 11:30 AM EDT Hem/Onc Treatment Hematology/Oncolog y Treatment, [address] [phone] Nasreen Chair 2 Hem Onc [address] [place] [address] Encounter for antineoplastic chemotherapy*; Malignant neoplasm of [...] AM EST Laboratory Laboratory, [facility] [address] [place] [address] Terrance Long [address] [place] [address] 02/27/2024 9:15 AM EST Hem/Onc Treatment Hematology/Oncolog y Treatment, [place] [address] [place] [phone] Nasreen, Chair 8 Hem Onc Scenery [address] [place] [address] 03/11/2024 9:00 AM EST Laboratory Laboratory, [facility] [place] [address] [place] [address] Terrance Long 132 [facility] [place] [address] 03/12/2024 8:30 AM EST Office Visit Hematology/Oncolog y [facility] Nasreen [place] [address] [place] [phone] Alisia Birmingham CRNP [address] [place] [address] [place] [address] 03/12/2024 9:00 AM EST Hem/Onc Treatment Hematology/Oncolog y Treatment, [place] [address] [place] [phone] Nasreen, Chair 7 Hem Onc Scenery [address] [place] [address] 03/25/2024 9:00 AM EST Laboratory Laboratory, [facility] [place] [facility] [phone] [facility] [address] 03/26/2024 11:15 AM EST Office Visit Hematology/Oncolog y Scenery Nasreen [place] [address] [place] [phone] Heriberto Wiley MD [address] [place] [address] 03/26/2024 12:00 PM EST Hem/Onc Treatment Hematology/Oncolog y Treatment, [place] [address] [place] [phone] Nasreen, Chair 1 Hem Onc Scenery [address] [place] [address] 04/11/2024 2:00 PM EST Office Visit Urology Ashlie Louise [address] [facility] 270 [place] [address] Manas Marie MD 27 [place] [address] 05/28/2024 7:30 AM EST Hospital Encounter [facility], Operating Room, [facility] - 4th Floor [address] [place] [phone] Timoteo Ayala, DO [address] [place] [address] 05/28/2024 7:30 AM EST - 05/28/2024 8:16 AM EST Surgery OR [facility], Operating Room, [facility] - 4th Floor [facility] [place] [phone] Timoteo Ayala, DO 100 [address] [facility] [place] [address] COLONOSCOPY FLEXIBLE PROXIMAL DIAGNOSTIC 07/19/2024 11:30 AM EDT Office Visit Cardiology, [facility] [address] [place] [address] Ciro Saini DO [address] [place] [address] 02/03/2025 1:00 PM EDT Office Visit Gynecology/Obstetr ics [facility] [address] [place] [address] Nelli Farrell CRNP [address] [place] [address] Scheduled Procedures Name Priority Associated Diagnoses Date/Ti [...] this encounter Medical Devices Implanted Type Area Flight Attendant/Inflight Supervisor Device Identifier Shelf Expiration Date Model / Serial / Lot Power Port 8fr Sngl Lumen Plas - [id number] Implanted:Qty : 1 on 01/05/2023 by Jai Malcolm Jr., MD at OR [facility] Right: Chest CR BARD : PERIPHERAL VASCULAR [id number] 07/08/2024 [id number] / / [id number] documented as of this encounter Visit Diagnoses [...] at 1230, For 1 dose, Restricted per [facility] antiemetic guidelinesIndications:Encounter for antineoplastic chemotherapy,Malignant neoplasm of [...] Power of Attor johann? No Care Teams Farm Product Purchaser Relationship Specialty Start Date End Date Lina Can MD [address] [place] [address] [place] [address] PCP - General Family Medicine 08/06/22 documented as of this encounter
--- OUTSIDE RECORDS SUMMARY | 2024-05-09 12:26 | External Medical Summary | Summary of Care ---
Author Name Unknown Organization [facility] Address [address] [place] [address] Phone [phone] Care Team Providers Care Administrative Executive Name Role Phone Lina Can MD Primary [...] INJ., ZIRABEV, 10 MG Chandni Almonte MD 200 [facility] [place] [address] Anc Hem/Onc [address] [address] Referral ID Status Reason Start Date Expiration Date V isits Requested Visits Authorized [id number] Authorized 11/22/2023 11/21/2024 999 [id number] Encounter Details Date Type Department Care Team (Latest Contact Info) Description 02/13/2024 9:00 AM EST Hem/Onc Treatment Hematology/Oncolog y Treatment, [address] [phone] Nasreen, Chair 5 Hem Onc [address] [place] [address] Encounter for antineoplastic chemotherapy*; Malignant neoplasm of sigmoid colon (HCC) Allergies Active Allergy Reactions Criticality Noted Date Comments Amoxicillin-Pot Clavulanate 07/13/19 GI upset Doxycycline 07/12/2022 GI upset Oxaliplatin Flushing High 07/27/2023 Shortness of breath Metoclopramide Hives 08/10/2022 documented as of this encounter (statuses as of 02/13/2024) Medications Medication Sig Dispensed Refills Start Date End Date Status Eliquis 5 MG Oral Tablet Take 1 Tablet by mouth in the morning and 1 Tablet before bedtime. 11/02/2023 Active Metoprolol Succinate ER 25 MG Oral Tablet Extended Release 24 Hour (toPROL XL)Indications:New onset atrial fibrillation (HCC) Take 1 Tablet by mouth in the morning. 30 Tablet 5 11/06/2023 Active Acetaminophen 500 MG Oral Tablet (Tylenol Extra Strength) Take 1 Tablet by mouth every 6 hours as needed for Fever (Temp Greater than ) or Pain, Moderate. Active Ondansetron HCl 8 MG Oral Tablet (Zofran)Indications: Malignant neoplasm of sigmoid colon (HCC) Take 1 Tablet by mouth every 8 hours as needed for Nausea. 30 Tablet 1 12/18/2023 Active Prochlorperazine Maleate 10 MG Oral Tablet (Compazine)Indicatio ns:Malignant neoplasm of sigmoid colon (HCC) Take 1 Tablet by mouth every 6 hours as needed for Nausea. 30 Tablet 1 12/18/2023 Active Pegfilgrastim-cbqv 6 MG/0.6ML Subcutaneous Solution Prefilled Syringe (Udenyca)Indications :Malignant neoplasm of sigmoid colon (HCC),Metastasis to bone (HCC),Chemotherapy-i nduced neutropenia (HCC) Inject 6 mg (1 syringe) under the skin 24 hours after FOLFOX pump disconnect every 2 weeks. 1.2 mL 5 01/08/2024 Active documented as of this encounter (statuses as of 02/13/2024) Active Problems Problem Noted Date Diagnosed Date [...] as of this encounter (statuses as of 02/13/2024) Immunizations No known immunizationsdocumented as of this [...] money to get more. Patient declined 06/2022 Sex and Gender Information Value Date Recorded Sex Assigned at Female 08/10/2022 10:14 AM EDT Gender Identity Female 08/10/2022 10:14 AM EDT Sexual Orientation Straight 08/10/2022 10 :14 AM EDT Job Start Date Occupation Industry Not on file Not on file Not on file documented as of this encounter Functional Status Functional Status Response Date of Assess ment Are you deaf or do you have serious difficulty h earing? No 11/25/2022 Are you blind or do you have serious difficulty seeing, even when wearing glasses? No 11/25/2022 Do you have serious difficul ty walking or climbing stairs? (5 years old or older) No 11/25/2022 Do you have difficulty dress ing or bathing? (5 years old or older) No 11/25/2022 Because of a physical, menta l, or emotional condition, do you have difficulty doing errands alone such as visiting a doctor s office or shopping? (15 years old or older) No 11/26/19 Cognitive Status Response Date of Assessm ent Because of a physical, menta l, or emotional condition, do you have serious difficulty concentrating, remembering, or making decisions? (5 years old or older) No 11/25/2022 documented as of this encounter Nursing Notes * Juliann Payne [...] Care Team (Late st Contact Info) Description 02/15/2024 10:45 AM EST Immunization/Injec tion Hematology/Oncolog y [address], [address] [phone] Nasreen, Chair 10 Hem Onc [address] [place] [address] 02/26/2024 9:00 AM EST Laboratory Laboratory, [facility] [address] [place] [phone] Terrance Long 132 [facility] [address] 02/27/2024 9:15 AM EST Hem/Onc Treatment Hematology/Oncolog y Treatment, [address] [phone] Nasreen, Chair 8 Hem Onc [address] [place] [address] 03/11/2024 9:00 AM EST Laboratory Laboratory, [facility] [address] [place] [address] Terrance Long 132 [facility] [place] [address] 03/12/2024 8:30 AM EST Office Visit Hematology/Oncolog y [facility] [address] [place] [phone] Alisia Birmingham CRNP [address] [place] [address] [place] [address] 03/12/2024 9:00 AM EST Hem/Onc Treatment Hematology/Oncolog y Treatment, [place] [address] [place] [phone] Nasreen, Chair 7 Hem Onc Scenery [address] [place] [address] 03/25/2024 9:00 AM EST Laboratory Laboratory, [facility] [place] [facility] [phone] [facility] 132 [facility] [address] 03/26/2024 11:15 AM EST Office Visit Hematology/Oncolog y [facility] [place] [address] [place] [phone] Heriberto Wiley MD [address] [place] [address] 03/26/2024 12:00 PM EST Hem/Onc Treatment Hematology/Oncolog y Treatment [place] [address] [place] [phone] Nasreen, Chair 1 Hem Onc Scenery 200 [facility] [place] [address] 04/11/2024 2:00 PM EST Office Visit Urology Ashlie Louise [address] [place] [address] Manas Marie MD 27 [place] [address] 05/28/2024 7:30 AM EST Hospital Encounter OR [facility], Operating Room, [facility] - 4th Floor [address] [place] [phone] Timoteo Ayala, DO 100 [address] [facility] [place] [address] 05/28/2024 7:30 AM EST - 05/28/2024 8:16 AM EST Surgery OR [facility], Operating Room, [facility] - 4th Floor 400 [facility] [place] [address] Timoteo Ayala, DO [address] [place] [address] COLONOSCOPY FLEXIBLE PROXIMAL DIAGNOSTIC 07/19/2024 11:30 AM EDT Office Visit Cardiology, [facility] [address] [place] [address] Ciro Saini, [address] [place] [address] 02/03/2025 1:00 PM EDT Office Visit Gynecology/Obstetr [facility] [address] [facility] [place] [address] Nelli Farrell CRNP [address] [place] [address] Scheduled Procedures Name Priority Associated Diagnoses Date/Ti [...] this encounter Medical Devices Implanted Type Area Piggery Worker Device Identifier Shelf Expiration Date Model / Serial / Lot Power Port 8fr Sngl Lumen Plas - [id number] Implanted:Qty : 1 on 01/05/2023 by Jai Malcolm Jr., MD at [facility] Right: Chest CR BARD : PERIPHERAL VASCULAR [id number] 07/08/2024 [id number] / / [id number] documented as of this encounter Visit Diagnoses [...] ONCE PRN Other, Hypersensitivity Reaction, Starting on Mon02/13/24 at 0924, Until Mon02/14/24 at 0923, For 24 hours EPINEPHrine 1 MG/ML inj 0.3 mg 0.3 mg, Intramuscular, ONCE PRN Other, Hypersensitivity Reaction or Anaphylaxis, Starting on Mon02/13/24 at 0924, Until Mon02/14/24 at 0923, For 24 hours hEParin 100 UNIT/ML Lock Flush inj 500 Units 500 Units (5 mL), IV Lock, PRN Other, IV Flush, Starting on Mon02/13/24 at 0924, Until Mon02/14/24 at 0923, For 24 hours, Do not flush if lock, PICC, or central line not in place; IV infusing or unable to flush. Hydrocortisone Sod Suc (PF) (Solu-Cortef) inj 100 mg 100 mg, IV Push, ONCE PRN Other, Hypersensitivity Reaction, Starting on Mon02/13/24 at 0924, Until Mon02/14/24 at 0923, For 24 hours LORAzepam (Ativan) tab 0.5 mg 0.5 mg, Oral, ONCE PRN Anxiety, Nausea, Starting on Mon02/13/24 at 0830, Until Discontinued NSS infusion Intravenous, at 50 mL/hr, PRN, Starting on Mon02/13/24 at 0830, Until Discontinued, Maintenance line Start Infusion 02/13/2024 9:33 AM EST 50 mL/hr oxygen GAS Inhalation, OXYGEN, First dose on Mon02/13/24 at 1000, Until Discontinued, Device/Managed by: Low [...] saturation is greater than or equal to 93% sodium chloride 0.9 % flush central line 10 mL 10 mL, IV Push, PRN Other, IV Flush, Starting on Mon02/13/24 at 0924, Until Mon02/14/24 at 0923, For 24 hours, Do not flush if lock, PICC, or central line not in place; IV infusing or unable to flush. Given 02/13/2024 12:40 PM EST 10 mL Inactive Administered Medications - up to 3 most recent administrations Medication Order MAR Action Action Date Dose Rate Site Atropine sulfate inj 0.4 mg 0.4 mg, IV Push, ONCE, On Mon02/13/24 at 1100, For 1 dose, Administer prior to irinotecan. Given 02/13/2024 10:59 AM EST 0.4 mg bevaCIZumab-bvzr (Zirabev) 300 mg in NSS 100 mL infusion 300 mg (rounded from 291.5 mg = 5 mg/kg 58.3 kg Treatment plan Recorded weight), IV Piggyback, ONCE, 1 dose, On Mon02/13/24 at 1015, Administer over 30 Minutes Start Infusion 02/13/2024 10:20 AM EST 300 mg 210 mL/hr dexAMETHasone (Decadron) tab 12 mg 12 mg, Oral, ONCE, On Mon02/13/24 at 0945, For 1 dose Given 02/13/2024 9:33 AM EST 12 mg Fluorouracil (5-Fu) 4,000 mg for Home Infusion 4,000 mg (rounded from 3,792 mg = 2,400 mg/m2 1.58 m2 Treatment Plan BSA from Recorded weight), Intravenous, Administer over 46 Hours, Home Infusion Pharmacy to specify base solution and volume., ONCE, 1 dose, On Mon02/13/24 at 1115 Start Infusion 02/13/2024 12:45 PM EST 4,000 mg 3 mL/hr Fluorouracil (5-Fu) inj 650 mg 650 mg (rounded from 632 mg = 400 mg/m2 1.58 m2 Treatment Plan BSA from Recorded weight), IV Push, ONCE, 1 dose, On Mon02/13/24 at 1100 Given 02/13/2024 12:40 PM EST 650 mg irinotecan HCl (Camptosar) 280 mg in D5W 500 mL infusion 280 mg (rounded from 284.4 mg = 180 mg/m2 1.58 m2 Treatment Plan BSA from Recorded weight), IV Piggyback, ONCE, 1 dose, On Mon02/13/24 at 1000, Administer over 90 Minutes, PROTECT FROM LIGHT Start Infusion 02/13/2024 11:03 AM EST 280 mg 349.33 mL/hr leucovorin calcium 650 mg in D5W 250 mL INFUSION 650 mg (rounded from 632 mg = 400 mg/m2 1.58 m2 Treatment Plan BSA from Recorded weight), IV Piggyback, ONCE, 1 dose, On Mon02/13/24 at 1000, Administer over 90 Minutes, Before 5-FU Start Infusion 02/13/2024 10:58 AM EST 650 mg 170 mL/hr Palonosetron (Aloxi) inj SOLN 0.25 mg 0.25 mg, IV Push, ONCE, On Mon02/13/24 at 0945, For 1 dose, Restricted per S antiemetic guidelines Given 02/13/2024 9:34 AM EST 0.25 mg documented in this [...] Power of Attor johann? No Care Teams Administrative Executive Relationship Specialty Start Date End Date Lina Can MD [address] [place] [address] [place] [address] PCP - General Family Medicine 08/06/22 documented as of this encounter
--- OUTSIDE RECORDS SUMMARY | 2024-05-09 12:26 | External Medical Summary | Summary of Care ---
Author Name Unknown Organization [facility] Address [address] [place] [address] Phone [phone] Care Team Providers Care Waterway Traffic Checker Name Role Phone Lina Can MD [...] INJ., ZIRABEV, 10 MG Chandni Almonte MD [address] [place] [address], [place] [address] Phone: tel: fax: Hematology/Oncology Treatment, [address] [address] Phone: tel: fax: Referral ID Status Reason Start Date Expiration Date V isits Requested Visits Authorized [id number] Authorized 11/22/2023 11/21/2024 999 [id number] Encounter Details Date Type Department Care Team (Latest Contact Info) Description 01/30/2024 11:30 AM EDT Hem/Onc Treatment Hematology/Oncolog y Treatment, [address] [address] Nasreen Chair 2 Hem Onc [address] [place] [address] Encounter for antineoplastic chemotherapy*; Malignant neoplasm of [...] Description 02/26/2024 9:00 AM EST Laboratory Laboratory, [facility] [address] [place] [address] Terrance Long [address] [place] [address] 02/27/2024 9:15 AM EST Hem/Onc Treatment Hematology/Oncolog y Treatment, [place] [address] [place] [phone] Nasreen, Chair 8 Hem Onc Scenery [address] [place] [address] 03/11/2024 9:00 AM EST Laboratory Laboratory, [facility] [place] [address] [place] [address] Terrance Long 132 [facility] [place] [address] 03/12/2024 8:30 AM EST Office Visit Hematology/Oncolog y [facility] Nasreen [place] [address] [place] [phone] Alisia Birmingham CRNP [address] [place] [address] [place] [address] 03/12/2024 9:00 AM EST Hem/Onc Treatment Hematology/Oncolog y Treatment, [place] [address] [place] [phone] Nasreen, Chair 7 Hem Onc Scenery [address] [place] [address] 03/25/2024 9:00 AM EST Laboratory Laboratory, [facility] [place] 132 [facility] [phone] [facility] 132 [facility] [address] 03/26/2024 11:15 AM EST Office Visit Hematology/Oncolog y Scenery Nasreen [place] [address] [place] [phone] Heriberto Wiley MD [address] [place] [address] 03/26/2024 12:00 PM EST Hem/Onc Treatment Hematology/Oncolog y Treatment, [place] [address] [place] [phone] Nasreen, Chair 1 Hem Onc Scenery [address] [place] [address] 04/11/2024 2:00 PM EST Office Visit Urology Ashlie Louise [address] [facility] 270 [place] [address] Manas Marie MD 27 [place] [address] 05/28/2024 7:30 AM EST Hospital Encounter OR GL, Operating Room, [facility] - 4th Floor [address] [place] [address] Timoteo Ayala, DO [address] [place] [address] 05/28/2024 7:30 AM EST - 05/28/2024 8:16 AM EST Surgery OR [facility], Operating Room, [facility] - 4th Floor 400 [facility] [phone] Timoteo Ayala, DO 100 [facility] [place] [address] COLONOSCOPY FLEXIBLE PROXIMAL DIAGNOSTIC 07/19/2024 11:30 AM EDT Office Visit Cardiology, [facility] [address] [place] [address] Ciro Saini DO [address] [place] [address] 02/03/2025 1:00 PM EDT Office Visit Gynecology/Obstetr ics [facility] [address] [place] [address] Nelli Farrell CRNP [address] [place] [address] Scheduled Procedures Name Priority Associated Diagnoses Date/Ti [...] this encounter Medical Devices Implanted Type Area Package Sealer Device Identifier Shelf Expiration Date Model / Serial / Lot Power Port 8fr Sngl Lumen Plas - [id number] Implanted:Qty : 1 on 01/05/2023 by Jai Malcolm Jr., MD at OR [facility] Right: Chest CR BARD : PERIPHERAL VASCULAR [id number] 07/08/2024 [id number] / / [id number] documented as of this encounter Visit Diagnoses [...] at 1230, For 1 dose, Restricted per [facility] antiemetic guidelinesIndications:Encounter for antineoplastic chemotherapy,Malignant neoplasm of [...] Power of Attor johann? No Care Teams Waterway Traffic Checker Relationship Specialty Start Date End Date Lina Can MD [address] [place] [address] [place] [address] PCP - General Family Medicine 08/06/22 documented as of this encounter
--- OUTSIDE RECORDS SUMMARY | 2024-05-09 12:26 | External Medical Summary | Summary of Care ---
Author Name Unknown Organization [facility] Address [address] [place] [address] Phone [phone] Care Team Providers Care Casing Wringer Operator Name Role Phone Lina Can MD Primary Care Prov ider Reason for Visit * Reason Comments Procedure Pump disconnect * Episode Based Medications (Routine) - Authorized Specialty Diagnoses / Procedures Referred By Contac t Referred To Contact Diagnoses Encounter for antineoplastic chemotherapy Malignant neoplasm of sigmoid colon (HCC) Procedures SD LEUCOVORIN CALCIUM INJECTION SD PALONOSETRON HCL SD FLUOROURACIL INJECTION SD IRINOTECAN INJECTION SD INJ., ZIRABEV, 10 MG Chandni Almonte MD 200 [place] [address] Anc Hem/Onc [address] [address] Referral ID Status Reason Start Date Expiration Date V isits Requested Visits Authorized [id number] Authorized 11/22/2023 11/21/2024 999 [id number] Encounter Details Date Type Department Care Team (Latest Contact Info) Description 02/15/2024 10:45 AM EST Immunization/ Injection Hematology/Oncology Treatment, [address] [address] Nasreen Chair 10 Hem Onc [address] [place] [address] Encounter for antineoplastic chemotherapy*; Malignant neoplasm of sigmoid colon (HCC) Allergies Active Allergy Reactions Criticality Noted Date Comments Amoxicillin-Pot Clavulanate 07/13/19 GI upset Doxycycline 07/12/2022 GI upset Oxaliplatin Flushing High 07/27/2023 Shortness of breath Metoclopramide Hives 08/10/2022 documented as of this encounter (statuses as of 02/15/2024) Medications Medication Sig Dispensed Refills Start Date [...] as of this encounter (statuses as of 02/15/2024) Active Problems Problem Noted Date Diagnosed Date [...] as of this encounter (statuses as of 02/15/2024) Immunizations No known immunizationsdocumented as of this [...] as of this encounter Nursing Notes * Janet Miller, RN - 02/15/2024 11:03 AM EST Chair 7 Pt presents for 5-FU pump disconnect. Pt c/o severe inner thigh pain that occurs on day 2 of chemo and makes ambulation difficulty. Pt spoke with Fiorella Gray RN who will discuss pain meds with Dr. Almonte. No other complaints. 5-FU infusion complete. Port with positive blood return. Flushed with 20 mL NS & 5 mL U-100 Heparin. Pt discharged in stable condition. documented in this encounter Plan of Treatment Upcoming Encounters Date Type Department Care Team (Late st Contact Info) Description 02/26/2024 9:00 AM EST Laboratory Laboratory, [facility] [address] [place] [address] Terrance Long 132 [facility] [place] [address] 02/27/2024 9:15 AM EST Hem/Onc Treatment Hematology/Oncolog y Treatment, [place] [address] [place] [phone] Nasreen, Chair 8 Hem Onc Scenery [address] [place] [address] 03/11/2024 9:00 AM EST Laboratory Laboratory, [facility] [address] [place] [address] Terrance Long 132 [facility] [place] [address] 03/12/2024 8:30 AM EST Office Visit Hematology/Oncolog y [facility] Nasreen [place] [address] [place] [phone] Alisia Birmingham CRNP 400 [place] [address] 03/12/2024 9:00 AM EST Hem/Onc Treatment Hematology/Oncolog y Treatment, [place] [address] [place], [place] [phone] Nasreen, Chair 7 Hem Onc Scenery [address] [place] [address] 03/25/2024 9:00 AM EST Laboratory Laboratory, [facility] [address] [facility], [place] [phone] [facility] [address] 03/26/2024 11:15 AM EST Office Visit Hematology/Oncolog y Scenery [place] [address] [place] [address] Heriberto [place] MD [address] [place], [place] [address] 03/26/2024 12:00 PM EST Hem[facility] [address] [place], [place] [phone] Nasreen, Chair 1 Hem Onc Scenery [address] [place] [address] 04/11/2024 2:00 PM EST Office Visit Urology Ashlie Louise [address] [place] 270 [place] [address] Manas Marie MD 27 [place] [address] 05/28/2024 7:30 AM EST Hospital Encounter OR GL, [facility] Room, [facility] - 4th [facility] 400 [place] [phone] Timoteo Ayala, DO [address] [place] [address] 05/28/2024 7:30 AM EST - 05/28/2024 8:16 AM EST Surgery OR GLH, Operating Room, [facility] - 4th Floor 400 [facility] [place] [address] Timoteo Ayala, DO [address] [place] [address] COLONOSCOPY FLEXIBLE PROXIMAL DIAGNOSTIC 07/19/2024 11:30 AM EDT Office Visit Cardiology, [facility] [address] [facility] [place] [address] Ciro Saini, [address] [place] [address] 02/03/2025 1:00 PM EDT Office Visit Gynecology/Obstetr ics [facility] [address] [facility] [place] [address] Nelli Farrell CRNP [address] [place] [address] Scheduled Procedures Name Priority Associated Diagnoses Date/Ti [...] this encounter Medical Devices Implanted Type Area Cash Crop Farmer Device Identifier Shelf Expiration Date Model / Serial / Lot Power Port 8fr Sngl Lumen Plas - [id number] Implanted:Qty : 1 on 01/05/2023 by Jai Malcolm Jr., MD at OR [facility] Right: Chest CR BARD : PERIPHERAL VASCULAR [id number] 07/08/2024 [id number] / / [id number] documented as of this encounter Visit Diagnoses [...] PRN Other, IV Flush, Starting on Shi 02/15/24 at 1034, Until Mon02/16/24 at 1033, For 24 hours, Do not flush if lock, PICC, or central line not in place; IV infusing or unable to flush. Given 02/15/2024 10:46 AM EST 500 Units sodium chloride 0.9 % flush central line 10 mL 10 mL, IV Push, PRN Other, IV Flush, Starting on Shi 02/15/24 at 1034, Until Mon02/16/24 at 1033, For 24 hours, Do not flush if lock, PICC, or central line not in place; IV infusing or unable to flush. Given 02/15/2024 10:46 AM EST 10 mL documented in this [...] Power of Attor johann? No Care Teams Casing Wringer Operator Relationship Specialty Start Date End Date Lina Can MD [address] [place] [address] [place] [address] PCP - General Family Medicine 08/06/22 documented as of this encounter
--- OUTSIDE RECORDS SUMMARY | 2024-05-09 12:26 | External Medical Summary | Summary of Care ---
Author Name Unknown Organization [facility] Address [address] [place] [address] Phone [phone] Care Team Providers Care High Risk Ob Name Role Phone Lina Can MD Primary Care Prov ider Reason for Visit * Reason Onset Date Comments Advice 02/14/2024 Encounter Details Date Type Department Care Team (Late st Contact Info) Description 02/14/2024 Telephone Hematology/Oncology, [facility] [address] [place] [address] Alisia Birmingham CRNP [address] [place] [address] Advice Allergies Active Allergy Reactions [...] No 11/25/2022 documented as of this encounter Miscellaneous Notes * Telephone Encounter - Tereza Gray RN - 02/15/2024 12:[address] Almonte sent in prescription for tramadol. Called patient to make her aware, she verbalized understanding. * Telephone Encounter - Tereza Gray RN - 02/15/2024 10:58 AM EST Spoke to patient. She states that Dr Almonte previously prescribed her percocet. She does not like taking this though, as it makes her very drowsy and she sleeps for hours. She has tramadol left over from a previous surgery that she has been taking instead, has 3 tablets left. She feels tramadol works better for her than percocet does. She has pain in both upper legs (states it feels muscular, not bone pain), worst is day 2 of each chemo cycle and then it'll get better over the next few days. Dr Almonte: patient is requesting rx for tramadol be sent to [facility]. Please sign if agreeable. Thanks! * Telephone Encounter - Tereza Gray RN - 02/15/2024 10:27 AM EST Attempted to call patient- received voicemail, did not leave message as noted that patient is coming here at 1045 for pump disconnect. * Telephone Encounter - Lawanda Romero OSA - 02/14/2024 5:11 PM EST Patient calling because she has been in pain but wants to know if the tramadol does not help, if she can also then try the Oxy. Also, she wants to know if she can cut the oxy in half and only take half since it seems to "knock her out".. documented in this encounter Plan of Treatment Upcoming Encounters Date Type Department Care Team (Late st Contact Info) Description 02/26/2024 9:00 AM EST Laboratory Laboratory, [facility] 132 [facility] [place] [address] Terrance Long 132 [facility] [place] [address] 02/27/2024 9:15 AM EST Hem/Onc Treatment Hematology/Oncolog y Treatment, [place] [address] [place] [address] Nasreen, Chair 8 Hem Onc Scenery [address] [place], [place] [address] 03/11/2024 9:00 AM EST Laboratory Laboratory, [facility] 132 [place] [phone] Terrance Long Ge 132 [place] [address] 03/12/2024 8:30 AM EST Office Visit Hematology/Oncolog y Scenery Nasreen [place] [address] [place], [place] [phone] Alisia Birmingham CRNP [address] [place] [address] 03/12/2024 9:00 AM EST Hem/Onc Treatment Hematology/Oncolog y [facility] 200 [facility] Bert[place], [place] [phone] Nasreen, Chair 7 Hem Onc Scenery [address] [place], [place] [address] 03/25/2024 9:00 AM EST Laboratory Laboratory, [facility] 132 [facility], [place] [phone] Terrance Long 132 [place] [address] 03/26/2024 11:15 AM EST Office Visit Hematology/Oncolog y Scenery Nasreen [place] [address] [place], [place] [phone] Heriberto Wiley MD [address] [place], [place] [address] 03/26/2024 12:00 PM EST Hem/Onc Treatment Hematology/Oncolog y [facility] 200 [facility] [place], [place] [address] Nasreen, Chair 1 Hem Onc Scenery [address] [place], [place] [address] 04/11/2024 2:00 PM EST Office Visit Urology Ashlie Louise [address] [place] 270 [place] [address] Manas Marie MD [address] [place] [address] 05/28/2024 7:30 AM EST Hospital Encounter OR [facility], Operating Room, [facility] - 4th Floor 400 [facility] [place] [phone] Timoteo Ayala, DO [address] [place] [address] 05/28/2024 7:30 AM EST - 05/28/2024 8:16 AM EST Surgery OR [facility], Operating Room, [facility] - 4th Floor 400 [facility] [place] [phone] Timoteo Ayala, DO [address] [place] [address] COLONOSCOPY FLEXIBLE PROXIMAL DIAGNOSTIC 07/19/2024 11:30 AM EDT Office Visit Cardiology, [facility] [address] [place] [address] Ciro Saini, DO [address] [place] [address] 02/03/2025 1:00 PM EDT Office Visit Gynecology/Obstetr ics [facility] [address] [place] [address] Nelli Farrell CRNP [address] [place] [address] Scheduled Procedures Name Priority Associated Diagnoses Date/Ti [...] this encounter Medical Devices Implanted Type Area Magazine Feeder Device Identifier Shelf Expiration Date Model / Serial / Lot Power Port 8fr Sngl Lumen Plas - [id number] Implanted:Qty : 1 on 01/05/2023 by Jai Malcolm Jr., MD at OR [facility] Right: Chest CR BARD : PERIPHERAL VASCULAR [id number] 07/08/2024 [id number] / / [id number] documented as of this encounter Visit Diagnoses Diagnosis Malignant neoplasm of sigmoid colon (HCC)- Primary Malignant neoplasm of sigmoid colon 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 No Care Teams High Risk Ob Relationship Specialty Start Date End Date Lina Can MD [address] [place] [address] [place] [phone] PCP - General Family Medicine 08/06/22 documented as of this encounter
--- OUTSIDE RECORDS SUMMARY | 2024-05-09 12:26 | External Medical Summary | Summary of Care ---
Author Name Unknown Organization [facility] Address [address] [place] [address] Phone [phone] Care Team Providers Care Surgical Scrub Technician Name Role Phone Lina Can MD Primary Care Prov ider Encounter Details Date Type Department Care Team (Late st Contact Info) Description 02/15/2024 Orders Only Hematology/Oncology, [facility] [address] [place] [address] Chandni Almonte MD [address] [place] [phone] Malignant neoplasm of sigmoid colon (HCC)* Allergies [...] 2 weeks. 1.2 mL 5 01/08/2024 Active traMADol HCl 50 MG Oral Tablet (Ultram)Indications: Malignant neoplasm of sigmoid colon (HCC) Take 1 Tablet by mouth every 6 hours as needed for Pain, Moderate. 30 Tablet 02/15/2024 Active Hospital, Clinic, or Other Facility Administered Medication Ordered Dose Route Frequency Start Date End Date Status traMADol (Ultram) tab 50 mgIndications:Maligna nt neoplasm of sigmoid colon (HCC) 50 mg OR Q6H PRN 02/15/2024 02/15/2024 Disco ntinued documented as of this encounter (statuses as [...] No 11/25/2022 documented as of this encounter Plan of Treatment Upcoming Encounters Date Type Department Care Team (Late st Contact Info) Description 02/26/2024 9:00 AM EST Laboratory Laboratory, [address] [place] [address] Terrance Long 132 [facility] [place] [address] 02/27/2024 9:15 AM EST Hem[facility] 200 [facility], [place] [phone] Nasreen, Chair 8 Hem Onc Scenery 200 [facility] [place], [place] [address] 03/11/2024 9:00 AM EST Laboratory Laboratory, [facility] 132 [facility] [place] [phone] Terrance Long 132 [facility] [place] [address] 03/12/2024 8:30 AM EST Office Visit Hematology/Oncolog y [facility] [address] [place], [place] [phone] Alisia Birmingham CRNP 400 [facility] [place] [address] 03/12/2024 9:00 AM EST Hem/Onc Treatment Hematology/Oncolog y [facility] 200 [facility] Berta [place], [place] [phone] Nasreen, Chair 7 Hem Onc [facility] [address] [place], [place] [address] 03/25/2024 9:00 AM EST Laboratory Laboratory, [facility] 132 [facility] [place] [phone] Terrance Long 132 [facility] [place] [address] 03/26/2024 11:15 AM EST Office Visit Hematology/Oncolog y [facility] [address] [place], [place] [phone] Heriberto Wiley MD [address] [place] [address] 03/26/2024 12:00 PM EST Hem/Onc Treatment Hematology/Oncolog y Treatment, [place] [address] [place] [phone] Park, Chair 1 Hem Onc Scenery [address] [place], [place] [address] 04/11/2024 2:00 PM EST Office Visit Urology Ashlie Louise [address] [place] [address] [place] [address] Manas Marie MD 27 [place] [address] 05/28/2024 7:30 AM EST Hospital Encounter OR GL, Operating Room, [facility] - 4th Floor [address] [place] [address] Timoteo Ayala, DO [address] [place] [address] 05/28/2024 7:30 AM EST - 05/28/2024 8:16 AM EST Surgery OR [facility], Operating Room, [facility] - 4th Floor 400 [facility] [place] [address] Timoteo Ayala, DO [address] [place] [address] COLONOSCOPY FLEXIBLE PROXIMAL DIAGNOSTIC 07/19/2024 11:30 AM EDT Office Visit Cardiology, [facility] 132 [place] [address] Ciro Saini, DO 132 [place] [address] 02/03/2025 1:00 PM EDT Office Visit Gynecology/Obstetr ics Jim Long [address] [place] [address] [place], SANDRA Murillo [address] [place] [address] Scheduled Procedures Name Priority Associated Diagnoses Date/Ti [...] this encounter Medical Devices Implanted Type Area Cutting Machine Offbearer Device Identifier Shelf Expiration Date Model / Serial / Lot Power Port 8fr Sngl Lumen Plas - [id number] Implanted:Qty : 1 on 01/05/2023 by Jai Malcolm Jr., MD at OR [facility] Right: Chest CR BARD : PERIPHERAL VASCULAR [id number] 07/08/2024 [id number] / / [id number] documented as of this encounter Visit Diagnoses [...] Power of Attor johann? No Care Teams Surgical Scrub Technician Relationship Specialty Start Date End Date Lina Can MD [address] [place] [address] [place] [address] PCP - General Family Medicine 08/06/22 documented as of this encounter
--- OUTSIDE RECORDS SUMMARY | 2024-05-09 12:26 | External Medical Summary | Summary of Care ---
Author Name Unknown Organization [facility] Address [address] [place] [address] Phone [phone] Care Team Providers Care Hydrometer Calibrator Name Role Phone Lina Can MD Primary Care Prov ider Reason for Visit * Reason Comments Chemotherapy Zirabev/FOLFIRI * Episode Based Medications (Routine) - Authorized Specialty Diagnoses / Procedures Referred By Contac t Referred To Contact Diagnoses Encounter for antineoplastic chemotherapy Malignant neoplasm of sigmoid colon (HCC) Procedures CT LEUCOVORIN CALCIUM INJECTION CT PALONOSETRON HCL CT FLUOROURACIL INJECTION CT IRINOTECAN INJECTION CT INJ., ZIRABEV, 10 MG Chandni Almonte MD 200 [facility] [place] [address] Anc Hem/Onc [address] [address] Referral ID Status Reason Start Date Expiration Date V isits Requested Visits Authorized [id number] Authorized 11/22/2023 11/21/2024 999 999 Encounter Details Date Type Department Care Team (Latest Contact Info) Description 01/30/2024 11:30 AM EDT Hem/Onc Treatment Hematology/Oncolog y Treatment, [address] [phone] Nasreen, Chair 2 Hem Onc [address] [place] [address] Encounter for antineoplastic chemotherapy*; Malignant neoplasm of [...] 2 weeks. 1.2 mL 5 01/08/2024 Active Hospital, Clinic, or Other Facility Administered [...] on file documented as of this encounter Last Filed [...] EDT documented in this encounter Functional Status Functional Status Response [...] (15 years old or older) No 11/26/19 23 Cognitive Status Response Date of Assessm ent Because of a physical, menta l, or emotional condition, do you have serious difficulty concentrating, remembering, or making decisions? (5 years old or older) No 11/25/2022 documented as of this encounter Progress Notes * Jacinto Delaney, [...] Description 02/26/2024 9:00 AM EST Laboratory Laboratory, [facility] [address] [place] [phone] Terrance Long [address] [place] [address] 02/27/2024 9:15 AM EST Hem/Onc Treatment Hematology/Oncolog y Treatment, [place] [facility] [phone] Nasreen, Chair 8 Hem Onc [address] [place] [address] 03/11/2024 9:00 AM EST Laboratory Laboratory, [facility] [address] [place] [phone] Terrance Long 132 [facility] [place] [address] 03/12/2024 8:30 AM EST Office [facility] Nasreen [place] 200 [facility] [place] [phone] Alisia Birmingham, STEM CRUSHER 400 [facility] [place] [address] 03/12/2024 9:00 AM EST Hem/Onc Treatment Hematology/Oncolog y Treatment, [place] 200 [facility], [place] [phone] Nasreen, Chair 7 Hem Onc [address] [place] [address] 03/25/2024 9:00 AM EST Laboratory Laboratory, [facility] 132 [facility] [place] [phone] Terrance Long 132 [facility] [place] [address] 03/26/2024 11:15 AM EST Office Visit Hematology/Oncolog y Scenery Nasreen [place] [address] [place] [phone] Heriberto Wiley MD [address] [place] [address] 03/26/2024 12:00 PM EST Hem/Onc Treatment Hematology/Oncolog y Treatment, [place] [address] [place] [phone] Nasreen, Chair 1 Hem Onc Scenery [address] [place] [address] 04/11/2024 2:00 PM EST Office Visit Urology Ashlie Louise [address] [place] [address] Manas Marie MD 27 [place] [address] 05/28/2024 7:30 AM EST Hospital Encounter OR GL, Operating Room, [facility] - 4th Floor [address] [place] [phone] Timoteo Ayala, DO [address] [place] [address] 05/28/2024 7:30 AM EST - 05/28/2024 8:16 AM EST Surgery OR GL, Operating Room, [facility] - 4th Floor [address] [place] [phone] Timoteo Ayala, DO 100 [address] [facility] De[place], [place] [address] COLONOSCOPY FLEXIBLE PROXIMAL DIAGNOSTIC 07/19/2024 11:30 AM EDT Office Visit Cardiology, [facility] [address] [place] [address] Ciro Saini DO [address] [place] [address] 02/03/2025 1:00 PM EDT Office Visit Gynecology/Obstetr ics Jim Long [address] [place] [address] Backer, SANDRA Murillo [address] [place] [address] Scheduled Procedures Name Priority Associated Diagnoses Date/Ti [...] this encounter Medical Devices Implanted Type Area Account Support Rep Device Identifier Shelf Expiration Date Model / Serial / Lot Power Port 8fr Sngl Lumen Plas - [id number] Implanted:Qty : 1 on 01/05/2023 by Jai Malcolm Jr., MD at OR [facility] Right: Chest CR BARD : PERIPHERAL VASCULAR [id number] 07/08/2024 [id number] / / [id number] documented as of this encounter Visit Diagnoses [...] 1230, For 1 dose, Administer prior to irinotecan. Given 01/30/2024 1:29 PM EDT 0.4 mg bevaCIZumab-bvzr (Zirabev) 300 mg in NSS 100 mL infusion 300 mg (rounded from 291.5 mg = 5 mg/kg 58.3 kg Treatment plan Recorded weight), IV Piggyback, ONCE, 1 dose, On Mon01/30/24 at 1230, Administer over 30 Minutes Start Infusion 01/30/2024 12:57 PM EDT 300 mg 210 mL/hr dexAMETHasone (Decadron) tab 12 mg 12 mg, Oral, ONCE, On Mon01/30/24 at 1230, For 1 dose Given 01/30/2024 11:58 AM EDT 12 mg Fluorouracil (5-Fu) 4,000 mg for Home Infusion 4,000 mg (rounded from 3,792 mg = 2,400 mg/m2 1.58 m2 Treatment Plan BSA from Recorded weight), Intravenous, Administer over 46 Hours, Home Infusion Pharmacy to specify base solution and volume., ONCE, 1 dose, On Mon01/30/24 at 1115 Start Infusion 01/30/2024 1:15 PM EDT 4,000 mg 3 mL/hr Fluorouracil (5-Fu) inj 650 mg 650 mg (rounded from 632 mg = 400 mg/m2 1.58 m2 Treatment Plan BSA from Recorded weight), IV Push, ONCE, 1 dose, On Mon01/30/24 at 1230 Given 01/30/2024 3:12 PM EDT 650 mg irinotecan HCl (Camptosar) 280 mg in D5W 500 mL infusion 280 mg (rounded from 284.4 mg = 180 mg/m2 1.58 m2 Treatment Plan BSA from Recorded weight), IV Piggyback, ONCE, 1 dose, On Mon01/30/24 at 1230, Administer over 90 Minutes, PROTECT FROM LIGHT Start Infusion 01/30/2024 1:33 PM EDT 280 mg 349.33 mL/hr leucovorin calcium 650 mg in D5W 250 mL INFUSION 650 mg (rounded from 632 mg = 400 mg/m2 1.58 m2 Treatment Plan BSA from Recorded weight), IV Piggyback, ONCE, 1 dose, On Mon01/30/24 at 1230, Administer over 90 Minutes, Before 5-FU Restarted 01/30/2024 1:33 PM EDT 433.3 mg/hr 170 mL/hr Start Infusion 01/30/2024 1:30 PM EDT 650 mg 170 mL/hr NSS infusion Intravenous, at 50 mL/hr, PRN, Starting on Mon01/30/24 at 0830, Until Mon01/30/24 at 1931, Maintenance line Start Infusion 01/30/2024 11:59 AM EDT 50 mL/hr Palonosetron (Aloxi) inj SOLN 0.25 mg 0.25 mg, IV Push, ONCE, On Mon01/30/24 at 1230, For 1 dose, Restricted per [facility] antiemetic guidelines Given 01/30/2024 11:58 AM EDT 0.25 mg sodium chloride 0.9 % flush central line 10 mL 10 mL, IV Push, PRN Other, IV Flush, Starting on Mon01/30/24 at 1148, Until Mon01/30/24 at 1931, For 24 hours, Do not flush if lock, PICC, or central line not in place; IV infusing or unable to flush. Given 01/30/2024 3:10 PM EDT 10 mL [...] Power of Attor johann? No Care Teams Hydrometer Calibrator Relationship Specialty Start Date End Date Lina Can MD [address] [place] [address] [place] [address] PCP - General Family Medicine 08/06/22 documented as of this encounter
--- OUTSIDE RECORDS SUMMARY | 2024-05-09 12:26 | External Medical Summary | Summary of Care ---
Author Name Unknown Organization [facility] Address [address] [place] [address] Phone [phone] Care Team Providers Care Commission Clerk Name Role Phone Lina Can MD [...] ZIRABEV, 10 MG Chandni Almonte MD [address] [place] [address], [place] [address] Phone: tel: fax: Hematology/Oncology Treatment, [address] [address] Phone: tel: fax: Referral ID Status Reason Start Date Expiration Date V isits Requested Visits Authorized [id number] Authorized 11/22/2023 11/21/2024 999 999 Encounter Details Date Type Department Care Team (Latest Contact Info) Description 01/30/2024 11:30 AM EDT Hem/Onc Treatment Hematology/Oncolog y Treatment, [address] [phone] Nasreen Chair 2 Hem Onc [address] [place] [address] Encounter for antineoplastic chemotherapy*; Malignant neoplasm of [...] Description 02/26/2024 9:00 AM EST Laboratory [facility] [address] [place] [address] Terrance Long [address] [place] [address] 02/27/2024 9:15 AM EST Hem/Onc Treatment Hematology/Oncolog y Treatment, [place] [address] [place] [phone] Nasreen, Chair 8 Hem Onc Scenery [address] [place] [address] 03/11/2024 9:00 AM EST Laboratory Laboratory, [facility] [place] [address] [place] [address] Terrance Long 132 [facility] [place] [address] 03/12/2024 8:30 AM EST Office Visit Hematology/Oncolog y [facility] Nasreen [place] [address] [place] [phone] Alisia Birmingham CRNP [address] [place] [address] [place] [address] 03/12/2024 9:00 AM EST Hem/Onc Treatment Hematology/Oncolog y Treatment, [place] [address] [place] [phone] Nasreen, Chair 7 Hem Onc Sc[address]ery [address] [place] [address] 03/25/2024 9:00 AM EST Laboratory Laboratory, [facility] [place] 132 [facility] [phone] [facility] 132 [facility] [address] 03/26/2024 11:15 AM EST Office Visit Hematology/Oncolog y Scenery Nasreen [place] [address] [place] [phone] Heriberto Wiley MD [address] [place] [address] 03/26/2024 12:00 PM EST Hem/Onc Treatment Hematology/Oncolog y Treatment, [place] [address] [place] [phone] Nasreen, Chair 1 Hem Onc [address] [place] [address] 04/11/2024 2:00 PM EST Office Visit Urology Ashlie Louise [address] [facility] 270 [place] [address] Manas Mraie MD 27 [place] [address] 05/28/2024 7:30 AM EST Hospital Encounter OR GL, Operating Room, [facility] - 4th Floor [address] [place] [phone] Timoteo Ayala, DO [address] [place] [address] 05/28/2024 7:30 AM EST - 05/28/2024 8:16 AM EST Surgery OR [facility], Operating Room, [facility] - 4th Floor 400 [facility] [phone] Timoteo Ayala, DO 100 [address] [facility] [place] [address] COLONOSCOPY FLEXIBLE PROXIMAL DIAGNOSTIC 07/19/2024 11:30 AM EDT Office Visit Cardiology, [facility] [address] [place] [address] Ciro Saini DO [address] [place] [address] 02/03/2025 1:00 PM EDT Office Visit Gynecology/Obstetr ics [facility] [address] [place] [address] Nelli Farrell CRNP [address] [place] [address] Scheduled Procedures Name Priority Associated Diagnoses Date/Ti [...] this encounter Medical Devices Implanted Type Area Physical Geographer Device Identifier Shelf Expiration Date Model / Serial / Lot Power Port 8fr Sngl Lumen Plas - [id number] Implanted:Qty : 1 on 01/05/2023 by Jai Malcolm Jr., MD at OR [facility] Right: Chest CR BARD : PERIPHERAL VASCULAR [id number] 07/08/2024 [id number] / / [id number] documented as of this encounter Visit Diagnoses [...] 1230, For 1 dose, Restricted per [facility] antiemetic guidelinesIndications:Encounter for antineoplastic chemotherapy,Malignant neoplasm of [...] Power of Attor johann? No Care Teams Commission Clerk Relationship Specialty Start Date End Date Lina Can MD [address] [place] [address] [place] [address] PCP - General Family Medicine 08/06/22 documented as of this encounter
--- OUTSIDE RECORDS SUMMARY | 2024-05-09 12:26 | External Medical Summary | Summary of Care ---
Author Name Unknown Organization [facility] Address [address] [place] [address] Phone [phone] Care Team Providers Care Construction Millwright Name Role Phone Lina Can MD Primary Care Prov ider Reason for Visit * Reason Comments Procedure Pump d/c * Episode Based Medications (Routine) - Authorized Specialty Diagnoses / Procedures Referred By Contac t Referred To Contact Diagnoses Encounter for antineoplastic chemotherapy Malignant neoplasm of sigmoid colon (HCC) Procedures MA LEUCOVORIN CALCIUM INJECTION MA PALONOSETRON HCL MA FLUOROURACIL INJECTION MA IRINOTECAN INJECTION MA INJ., ZIRABEV, 10 MG Chandni Almonte MD 200 [facility] [place] [address] Anc Hem/Onc [address] [address] Referral ID Status Reason Start Date Expiration Date V isits Requested Visits Authorized [id number] Authorized 11/22/2023 11/21/2024 999 999 Encounter Details Date Type Department Care Team (Latest Contact Info) Description 02/01/2024 1:15 PM EDT Immunization/ Injection Hematology/Oncology Treatment, [address] [phone] Nasreen, Chair 3 Hem Onc [address] [place] [address] Encounter for antineoplastic chemotherapy*; Malignant neoplasm of sigmoid colon (HCC); Adjustment and management of infusion pump Allergies Active Allergy Reactions Criticality Noted Date [...] as of this encounter Nursing Notes * Darlyn Hollins RN - 02/01/2024 2:37 PM EDT Chair 8. Patient arrived today s/p 46 hours of 5FU infusion. Port flushed with NSS, blood return noted, and port locked with Heparin. Port needle removed. Patient left facility today in stable condition and denied further needs at this time. documented in this encounter Plan of Treatment Upcoming Encounters Date Type Department Care Team (Late st Contact Info) Description 02/26/2024 9:00 AM EST Laboratory Laboratory, [facility] [address] [place] [phone] Terrance Long [facility] [place] [address] 02/27/2024 9:15 AM EST Hem/Onc Treatment Hematology/Oncolog y Treatment, [place] 200 [facility] Berta [place] [phone] Nasreen Chair 8 [facility] 200 [facility] [place] [address] 03/11/2024 9:00 AM EST Laboratory Laboratory, [facility] [address] [place] [address] Terrance Long 132 [facility] [place] [address] 03/12/2024 8:30 AM EST Office Visit Hematology/Oncolog y [facility] [place] 200 [facility] [phone] Alisia Birmingham CRNP [address] [place] [address] 03/12/2024 9:00 AM EST Hem/Onc Treatment Hematology/Oncolog y Treatment, [place] [address] [place] [phone] Nasreen, Chair 7 Hem Onc [address] [place] [address] 03/25/2024 9:00 AM EST Laboratory Laboratory, [facility] 132 [facility] [phone] [facility] [place] 132 [facility] [address] 03/26/2024 11:15 AM EST Office Visit Hematology/Oncolog y [address] [place] [address] [place] [phone] Heriberto Wiley MD [address] [place] [address] 03/26/2024 12:00 PM EST Hem/Onc Treatment Hematology/Oncolog y Treatment [place] [address] [place]a [place] [phone] Nasreen, Chair 1 Hem Onc [address] 200 [facility] [place] [address] 04/11/2024 2:00 PM EST Office Visit Urology Ashlie Louise [address] [place] [address] [place] [address] Manas Marie MD 27 [place] [address] 05/28/2024 7:30 AM EST Hospital Encounter OR [facility], Operating Room, [facility] - 4th Floor [address] [place] [phone] Timoteo Ayala, DO [address] [place] [address] 05/28/2024 7:30 AM EST - 05/28/2024 8:16 AM EST Surgery OR [facility], Operating Room, [facility] - 4th Floor 400 [facility] [place]anda [phone] Timoteo Ayala, DO [address] [place] [address] COLONOSCOPY FLEXIBLE PROXIMAL DIAGNOSTIC 07/19/2024 11:30 AM EDT Office Visit Cardiology, [facility] [address] [facility] [place] [address] Ciro Saini, [address] [place] [address] 02/03/2025 1:00 PM EDT Office Visit Gynecology/Obstetr ics [facility] [address] [facility] [place] [address] Nelli Farrell CRNP [address] [place] [address] Scheduled Procedures Name Priority Associated Diagnoses Date/Ti [...] encounter Medical Devices Implanted Type Area Oil And Gas Superintendent Device Identifier Shelf Expiration Date Model / Serial / Lot Power Port 8fr Sngl Lumen Plas - [id number] Implanted:Qty : 1 on 01/05/2023 by Jai Malcolm Jr., MD at [facility] Right: Chest CR BARD : PERIPHERAL VASCULAR [id number] 07/08/2024 [id number] / / [id number] documented as of this encounter Visit Diagnoses Diagnosis Encounter for antineoplastic chemotherapy- Primary Malignant neoplasm of sigmoid colon (HCC) Malignant neoplasm of sigmoid colon Adjustment and management of infusion pump Fitting and adjustment of other device Cancer of sigmoid colon (HCC) Malignant neoplasm of sigmoid colon documented in this encounter Administered Medications Inactive Administered Medications - up to 3 most recent administrations Medication Order MAR Action Action Date Dose Rate Site hEParin 100 UNIT/ML Lock Flush inj 500 Units 500 Units (5 mL), IV Lock, PRN Other, IV Flush, Starting on Shi 02/01/24 at 1327, Until Shi 02/01/24 at 1838, For 24 hours, Do not flush if lock, PICC, or central line not in place; IV infusing or unable to flush. Given 02/01/2024 1:30 PM EDT 500 Units sodium chloride 0.9 % flush central line 10 mL 10 mL, IV Push, PRN Other, IV Flush, Starting on Shi 02/01/24 at 1327, Until Shi 02/01/24 at 1838, For 24 hours, Do not flush if lock, PICC, or central line not in place; IV infusing or unable to flush. Given 02/01/2024 1:30 PM EDT 10 mL documented in this [...] Power of Attor johann? No Care Teams Construction Millwright Relationship Specialty Start Date End Date Lina Can MD [address] [place] [address] [place] [address] PCP - General Family Medicine 08/06/22 documented as of this encounter
--- OUTSIDE RECORDS SUMMARY | 2024-05-09 12:26 | External Medical Summary | Summary of Care ---
Author Name Unknown Organization [facility] Address [address] [place] [address] Phone [phone] Care Team Providers Care Sales Systems Engineer Name Role Phone Lina Can MD [...] ZIRABEV, 10 MG Chandni Almonte MD 200 [facility] [place] [address] Anc Hem/Onc [address] [address] Referral ID Status Reason Start Date Expiration Date V isits Requested Visits Authorized [id number] Authorized 11/22/2023 11/21/2024 999 999 Encounter Details Date Type Department Care Team (Latest Contact Info) Description 01/30/2024 11:30 AM EDT Hem/Onc Treatment Hematology/Oncolog y Treatment, [address] [phone] Nasreen, Chair 2 Hem Onc [address] [place] [address] Encounter for antineoplastic chemotherapy*; Malignant neoplasm of [...] 02/26/2024 9:00 AM EST Laboratory Laboratory, [facility] [address] [place] [phone] Terrance Long [address] [place] [address] 02/27/2024 9:15 AM EST Hem/Onc Treatment Hematology/Oncolog y Treatment, [place] 200 [facility] [phone] Nasreen, Chair 8 Hem Onc [address] [place] [address] 03/11/2024 9:00 AM EST Laboratory Laboratory, [facility] [address] [place] [phone] Terrance Long 132 [facility] [place] [address] 03/12/2024 8:30 AM EST Office Visit Hematology/Oncolog y [facility] Nasreen [place] 200 [facility] [place] [phone] Alisia Birmingham, SPECIAL EDUCATION ASSOCIATE 400 [facility] [place] [address] 03/12/2024 9:00 AM EST Hem/Onc Treatment Hematology/Oncolog y Treatment, [place] 200 [facility], [place] [phone] Nasreen, Chair 7 Hem Onc [address] [place] [address] 03/25/2024 9:00 AM EST Laboratory Laboratory, [facility] 132 [facility] [place] [phone] Terrance Long 132 [facility] [place] [address] 03/26/2024 11:15 AM EST Office Visit Hematology/Oncolog y [address]enery Nasreen [place] [address] [place] [phone] Heriberto Wiley MD [address] [place] [address] 03/26/2024 12:00 PM EST Hem/Onc Treatment Hematology/Oncolog y Treatment, [place] [address] [place] [phone] Nasreen, Chair 1 Hem Onc [address] [place] [address] 04/11/2024 2:00 PM EST Office Visit Urology Ashlie Louise [address] [address] [place] [address] Manas Marie MD 27 [place] [address] 05/28/2024 7:30 AM EST Hospital Encounter OR GL, Operating Room, [facility] - 4th Floor [address] [place] [phone] Timoteo Ayala, DO [address] [facility] [place] [address] 05/28/2024 7:30 AM EST - 05/28/2024 8:16 AM EST Surgery OR GL, Operating Room, [facility] - 4th Floor [address] [place] [phone] Timoteo Ayala, DO 100 N [facility] [place], [place] [address] COLONOSCOPY FLEXIBLE PROXIMAL DIAGNOSTIC 07/19/2024 11:30 AM EDT Office Visit Cardiology, [facility] [address] [place] [address] Ciro Saini DO [address] [place] [address] 02/03/2025 1:00 PM EDT Office Visit Gynecology/Obstetr ics Jim Long [address] [place] [address] Backer, SANDRA Murillo [address] [place] [address] Scheduled Procedures Name Priority Associated Diagnoses Date/Ti [...] this encounter Medical Devices Implanted Type Area Hand Sample Maker Device Identifier Shelf Expiration Date Model / Serial / Lot Power Port 8fr Sngl Lumen Plas - [id number] Implanted:Qty : 1 on 01/05/2023 by Jai Malcolm Jr., MD at OR [facility] Right: Chest CR BARD : PERIPHERAL VASCULAR [id number] 07/08/2024 [id number] / / [id number] documented as of this encounter Visit Diagnoses [...] at 1230, For 1 dose, Restricted per [facility] antiemetic guidelines Given 01/30/2024 11:58 [...] of Attor johann? No Care Teams Sales Systems Engineer Relationship Specialty Start Date End Date Lina Can MD [address] [place] [address] [place] [address] PCP - General Family Medicine 08/06/22 documented as of this encounter"
--- OUTSIDE RECORDS SUMMARY | 2024-05-09 12:26 | External Medical Summary | Summary of Care ---
Author Name Unknown Organization [facility] Address [address] [place] [address] Phone [phone] Care Team Providers Care Pipeline Maintenance Supervisor Name Role Phone Lina Can MD [...] INJ., ZIRABEV, 10 MG Chandni Almonte MD [address] [place] [address], [place] [address] Phone: tel: fax: Hematology/Oncology Treatment, [address] [address] Phone: tel: fax: Referral ID Status Reason Start Date Expiration Date V isits Requested Visits Authorized [id number] Authorized 11/22/2023 11/21/2024 999 [id number] Encounter Details Date Type Department Care Team (Latest Contact Info) Description 01/30/2024 11:30 AM EDT Hem/Onc Treatment Hematology/Oncolog y Treatment, [address] [address] Nasreen Chair 2 Hem Onc [address] [place] [address] Encounter for antineoplastic chemotherapy*; Malignant neoplasm of [...] Description 02/26/2024 9:00 AM EST [facility] [address] [place] [address] Terrance Long [address] [place] [address] 02/27/2024 9:15 AM EST Hem/Onc Treatment Hematology/Oncolog y Treatment, [place] [address] [place] [phone] Nasreen, Chair 8 Hem Onc Scenery [address] [place] [address] 03/11/2024 9:00 AM EST Laboratory Laboratory, [facility] [place] [address] [place] [address] Terrance Long 132 [facility] [place] [address] 03/12/2024 8:30 AM EST Office Visit H[facility]ology[facility]olog [facility] Nasreen [place] [address] [place] [phone] Alisia Birmingham CRNP [address] [place] [address] [place] [address] 03/12/2024 9:00 AM EST Hem/Onc Treatment Hematology/Oncolog y Treatment, [place] [address] [place] [phone] Nasreen, Chair 7 Hem Onc Scenery [address] [place] [address] 03/25/2024 9:00 AM EST Laboratory Laboratory, [facility] [place] 132 [facility] [phone] [facility] 132 [facility] [address] 03/26/2024 11:15 AM EST Office Visit Hematology/Oncolog y Scenery Nasreen [place] [address] [place] [phone] Heriberto [place] MD [address] [place] [address] 03/26/2024 12:00 PM EST Hem/Onc Treatment Hematology/Oncolog y Treatment, [place] [address] [place] [phone] Nasreen, Chair 1 Hem Onc Scenery [address] [place] [address] 04/11/2024 2:00 PM EST Office Visit Urology [place] [address] [facility] 270 [place] [address] Manas Marie MD 27 [place] [address] 05/28/2024 7:30 AM EST Hospital Encounter OR GL, Operating Room, [facility] - 4th Floor [address] [place] [phone] Timoteo Ayala, DO [address] [place] [address] 05/28/2024 7:30 AM EST - 05/28/2024 8:16 AM EST Surgery OR [facility], Operating Room, [facility] - 4th Floor 400 [facility] [phone] Timoteo Ayala, DO 100 [address] [facility] [place] [address] COLONOSCOPY FLEXIBLE PROXIMAL DIAGNOSTIC 07/19/2024 11:30 AM EDT Office Visit Cardiology, [facility] [address] [place] [address] Ciro Saini DO [address] [place] [address] 02/03/2025 1:00 PM EDT Office Visit Gynecology/Obstetr ics [facility] [address] [place] [address] Nelli Farrell CRNP [address] [place] [address] Scheduled Procedures Name Priority Associated Diagnoses Date/Ti [...] this encounter Medical Devices Implanted Type Area Airport Manager Device Identifier Shelf Expiration Date Model / Serial / Lot Power Port 8fr Sngl Lumen Plas - [id number] Implanted:Qty : 1 on 01/05/2023 by Jai Malcolm Jr., MD at OR [facility] Right: Chest CR BARD : PERIPHERAL VASCULAR [id number] 07/08/2024 [id number] / / [id number] documented as of this encounter Visit Diagnoses [...] at 1230, For 1 dose, Restricted per [facility] antiemetic guidelinesIndications:Encounter for antineoplastic chemotherapy,Malignant neoplasm of [...] Power of Attor johann? No Care Teams Pipeline Maintenance Supervisor Relationship Specialty Start Date End Date Lina Can MD [address] [place] [address] [place] [address] PCP - General Family Medicine 08/06/22 documented as of this encounter
--- OUTSIDE RECORDS SUMMARY | 2024-05-09 12:26 | External Medical Summary | Summary of Care ---
Author Name Unknown Organization [facility] Address [address] [place] [address] Phone [phone] Care Team Providers Care Piercer Name Role Phone Lina Can MD Primary [...] INJ., ZIRABEV, 10 MG Chandni Almonte MD [address] [place] [address], [place] [address] Phone: tel: fax: Hematology/Oncology Treatment, [address] [address] Phone: tel: fax: Referral ID Status Reason Start Date Expiration Date V isits Requested Visits Authorized [id number] Authorized 11/22/2023 11/21/[phone] Encounter Details Date Type Department Care Team (Latest Contact Info) Description 01/30/2024 11:30 AM EDT Hem/Onc Treatment Hematology/Oncolog y Treatment, [address] [phone] Nasreen Chair 2 Hem Onc [address] [place] [address] Encounter for antineoplastic chemotherapy*; Malignant neoplasm of [...] Description 02/26/2024 9:00 AM EST Laboratory [facility], [facility] [address] [place] [address] Terrance Long [address] [place] [address] 02/27/2024 9:15 AM EST Hem/Onc Treatment Hematology/Oncolog y Treatment, [place] [address] [place] [phone] Nasreen, Chair 8 Hem Onc Scenery [address] [place] [address] 03/11/2024 9:00 AM EST Laboratory Laboratory, [facility] [place] [address] [place] [address] Terrance Long 132 [facility] [place] [address] 03/12/2024 8:30 AM EST Office Visit [facility] Nasreen [place] [address] [place] [phone] Alisia Birmingham CRNP [address] [place] [address] [place] [address] 03/12/2024 9:00 AM EST Hem/Onc Treatment Hematology/Oncolog y Treatment, [place] [address] [place] [phone] Nasreen, Chair 7 Hem Onc Scenery [address] [place] [address] 03/25/2024 9:00 AM EST Laboratory Laboratory, [facility] [place] 132 [facility] [phone] [facility] 132 [facility] [address] 03/26/2024 11:15 AM EST Office Visit Hematology/Oncolog y [address] Nasreen [place] [address] [place] [phone] Heriberto [place] MD [address] [place] [address] 03/26/2024 12:00 PM EST Hem/Onc Treatment Hematology/Oncolog y Treatment, [place] [address] [place] [phone] Nasreen, Chair 1 Hem Onc Scenery [address] [place] [address] 04/11/2024 2:00 PM EST Office Visit Urology [place] [address] [facility] 270 [place] [address] Manas [place] MD 27 [place] [address] 05/28/2024 7:30 AM EST Hospital Encounter OR GL, Operating Room, [facility] - 4th Floor [address] [place] [address] Timoteo Ayala, DO [address] [place] [address] 05/28/2024 7:30 AM EST - 05/28/2024 8:16 AM EST Surgery [facility], Operating Room, [facility] - 4th [facility] 400 [facility] [phone] Timoteo Ayala, DO 100 N [facility] [place] [address] COLONOSCOPY FLEXIBLE PROXIMAL DIAGNOSTIC 07/19/2024 11:30 AM EDT Office Visit Cardiology, [facility] [address] [place] [place] [address] Ciro Saini DO [address] [place] [address] 02/03/2025 1:00 PM EDT Office Visit Gynecology/Obstetr ics [facility] [address] [place] [address] Nelli Farrell CRNP [address] [place] [address] Scheduled Procedures Name Priority Associated Diagnoses Date/Ti [...] encounter Medical Devices Implanted Type Area Ice Seller Device Identifier Shelf Expiration Date Model / Serial / Lot Power Port 8fr Sngl Lumen Plas - [id number] Implanted:Qty : 1 on 01/05/2023 by Jai Malcolm Jr., MD at OR [facility] Right: Chest CR BARD : PERIPHERAL VASCULAR [id number] 07/08/2024 [id number] / / [id number] documented as of this encounter Visit Diagnoses [...] 1230, For 1 dose, Restricted per [facility] antiemetic guidelinesIndications:Encounter for antineoplastic chemotherapy,Malignant neoplasm [...] Power of Attor johann? No Care Teams Piercer Relationship Specialty Start Date End Date Lina Can MD [address] [place] [address] [place] [address] PCP - General Family Medicine 08/06/22 documented as of this encounter
--- OUTSIDE RECORDS SUMMARY | 2024-05-09 12:27 | External Medical Summary | Summary of Care ---
Author Name Unknown Organization [facility] Address [address] [place] [address] Phone [phone] Care Team Providers Care Manager Management Name Role Phone Lina Can MD Primary [...] [facility] [place] [address] Anc Hem/Onc [address] [address] Referral ID Status Reason Start Date Expiration Date V isits Requested Visits Authorized [id number] Authorized 11/22/2023 11/21/[phone] Encounter Details Date Type Department Care Team (Latest Contact Info) Description 01/30/2024 11:30 AM EDT Hem/Onc Treatment Hematology/Oncolog y Treatment, [address] [phone] Nasreen, Chair 2 Hem Onc [address] [place] [address] Encounter for antineoplastic chemotherapy*; Malignant neoplasm of sigmoid colon (HCC) Allergies Active Allergy Reactions Criticality Noted Date Comments Amoxicillin-Pot Clavulanate 07/13/19 GI upset Doxycycline 07/12/2022 GI upset Oxaliplatin Flushing High 07/27/2023 Shortness of breath Metoclopramide Hives 08/10/2022 documented as of this encounter (statuses as of 01/30/2024) Medications Medication Sig Dispensed Refills Start Date [...] infusion 4000 mg IV CONTINUOUS 01/29/2024 01/31/2024 Active documented as of this encounter (statuses as of 01/30/2024) Active Problems Problem Noted Date Diagnosed Date [...] as of this encounter (statuses as of 01/30/2024) Immunizations No known immunizationsdocumented as of this [...] Care Team (Late st Contact Info) Description 02/01/2024 1:15 PM EDT Immunization/Injecti on Hematology/Oncology Treatment, [place] 200 [facility] [phone] Nasreen, Chair 3 Hem Onc [address] [place] [address] 02/12/2024 9:30 AM EST Laboratory Laboratory, [facility] 132 [facility] [phone] [facility] 132 [facility] [address] 02/13/2024 8:30 AM EST Office Visit Hematology/Oncology [facility] 200 [facility] [place] [phone] Alisia Birmingham CRNP 400 [facility] [address] 02/13/2024 9:00 AM EST Hem/Onc Treatment Hematology/Oncology Treatment, [address] [phone] Nasreen, Chair 5 Hem Onc [address] [place] [address] 04/11/2024 2:00 PM EST Office Visit Urology Ash[place] [address] [email or web address] 270 [place] [address] Manas Marie MD 27 [place] [address] 05/28/2024 Hospital Encounter OR [facility], Operating Room, [facility] - 4th Floor [address] [place] [address] Timoteo Ayala, DO [address] [facility] [address] 07/19/2024 11:30 AM EDT Office Visit Cardiology, [facility] [address] [place] [address] Ciro Saini DO [address] [place] [address] 02/03/2025 1:00 PM EDT Office Visit Gynecology/Obstetri [facility] [address] [place] [address] Nelli Farrell CRNP [address] [place] [address] Scheduled Procedures Name Priority Associated Diagnoses Date/Ti me COLONOSCOPY FLEXIBLE PROXIMAL DIAGNOSTIC Cancer of sigmoid colon (HCC) PRE / POST CARE Malignant neoplasm of [...] this encounter Medical Devices Implanted Type Area Store Hand Device Identifier Shelf Expiration Date Model / Serial / Lot Power Port 8fr Sngl Lumen Plas - [id number] Implanted:Qty : 1 on 01/05/2023 by Jai Malcolm Jr., MD at [facility] Right: Chest CR BARD : PERIPHERAL VASCULAR [id number] 07/08/2024 [id number] / / [id number] documented as of this encounter Visit Diagnoses [...] ONCE PRN Other, Hypersensitivity Reaction, Starting on Mon01/30/24 at 1148, Until Mon01/31/24 at 1147, For 24 hours EPINEPHrine 1 MG/ML inj 0.3 mg 0.3 mg, Intramuscular, ONCE PRN Other, Hypersensitivity Reaction or Anaphylaxis, Starting on Mon01/30/24 at 1148, Until Mon01/31/24 at 1147, For 24 hours hEParin 100 UNIT/ML Lock Flush inj 500 Units 500 Units (5 mL), IV Lock, PRN Other, IV Flush, Starting on Mon01/30/24 at 1148, Until Mon01/31/24 at 1147, For 24 hours, Do not flush if lock, PICC, or central line not in place; IV infusing or unable to flush. Hydrocortisone Sod Suc (PF) (Solu-Cortef) inj 100 mg 100 mg, IV Push, ONCE PRN Other, Hypersensitivity Reaction, Starting on Mon01/30/24 at 1148, Until Mon01/31/24 at 1147, For 24 hours LORAzepam (Ativan) tab 0.5 mg 0.5 mg, Oral, ONCE PRN Anxiety, Nausea, Starting on Mon01/30/24 at 0830, Until Discontinued NSS infusion Intravenous, at 50 mL/hr, PRN, Starting on Mon01/30/24 at 0830, Until Discontinued, Maintenance line Start Infusion 01/30/2024 11:59 AM EDT 50 mL/hr oxygen GAS Inhalation, OXYGEN, First dose on Mon01/30/24 at 1600, Until Discontinued, Device/Managed by: Low [...] Flush, Starting on Mon01/30/24 at 1148, Until Mon01/31/24 at 1147, For 24 hours, Do not flush if lock, PICC, or central line not in place; IV infusing or unable to flush. Given 01/30/2024 3:10 PM EDT 10 mL Inactive Administered Medications - up [...] 1:30 PM EDT 650 mg 170 mL/hr Palonosetron (Aloxi) inj SOLN 0.25 mg 0.25 mg, IV Push, ONCE, On Mon01/30/24 at 1230, For 1 dose, Restricted per S antiemetic guidelines Given 01/30/2024 11:58 AM EDT 0.25 mg documented in this encounter Advance [...] of Attor johann? No Care Teams Manager Management Relationship Specialty Start Date End Date Lina Can MD [address] [place] [address] [place] [address] PCP - General Family Medicine 08/06/22 documented as of this encounter
--- OUTSIDE RECORDS SUMMARY | 2024-05-09 12:27 | External Medical Summary | Summary of Care ---
Author Name Unknown Organization [facility] Address [address] [place] [address] Phone [phone] Care Team Providers Care Rn Eligibility Name Role Phone Lina Can MD Primary Care Prov ider Reason for Visit * Reason Comments Outpatient Testing Encounter Details Date Type Department Care Team (Late st Contact Info) Description 02/12/2024 9:30 AM EST Laboratory Laboratory, [facility] 132 [place] [address] [facility] 132 [place] [address] Malignant neoplasm of sigmoid colon (HCC) Allergies Active Allergy Reactions Criticality Noted Date Comments Amoxicillin-Pot Clavulanate 07/13/19 GI upset Doxycycline 07/12/2022 GI upset Oxaliplatin Flushing High 07/27/2023 Shortness of breath Metoclopramide Hives 08/10/2022 documented as of this encounter (statuses as of 02/12/2024) Medications Medication Sig Dispensed Refills Start Date [...] as of this encounter (statuses as of 02/12/2024) Active Problems Problem Noted Date Diagnosed Date [...] as of this encounter (statuses as of 02/12/2024) Immunizations No known immunizationsdocumented as of this [...] Care Team (Late st Contact Info) Description 02/13/2024 8:30 AM EST Office Visit Hematology/Oncolog y [facility] Nasreen [place] 200 [facility] [place] [address] Alisia Birmingham CRNP [address] [place] [address] [place] [address] 02/13/2024 9:00 AM EST Hem/Onc Treatment Hematology/Oncolog y Treatment, [place] [address] [place] [address] Nasreen, Chair 5 Hem Onc Scenery [address] [place] [address] 04/11/2024 2:00 PM EST Office Visit Urology [place] Louise [address] [place] 270 [place] [address] Manas Marie MD [address] [place] [address] 05/28/2024 7:30 AM EST Hospital Encounter OR [facility], Operating Room, [facility] - 4th Floor 400 [facility] [place] [phone] Timoteo Ayala, DO [address] [place] [address] 05/28/2024 7:30 AM EST - 05/28/2024 8:16 AM EST Surgery OR [facility], Operating Room, [facility] - 4th Floor 400 [facility] [place] [phone] Timoteo Ayala, DO [address] [place] [address] COLONOSCOPY FLEXIBLE PROXIMAL DIAGNOSTIC 07/19/2024 11:30 AM EDT Office Visit Cardiology, [facility] [address] [place] [address] Ciro Saini, DO [address] [facility] [place] [address] 02/03/2025 1:00 PM EDT Office Visit Gynecology/Obstetr ics [facility] [address] [place] [address] Nelli Farrell CRNP [address] [place] [address] Pending Results Name Type Priority Associated Diagnoses Date /Time MAGNESIUM Lab STAT Malignant neoplasm of sigmoid colon (HCC) 02/12/2024 9:04 AM EST COMPREHENSIVE METABOLIC PANEL Lab STAT Malignant neoplasm of sigmoid colon (HCC) 02/12/2024 9:04 AM EST URINALYSIS, REFLEX TO MICROSCOPIC Lab STAT Malignant neoplasm of sigmoid colon (HCC) 02/12/2024 9:09 AM EST MICROSCOPIC EXAM, URINE Lab STAT Malignant neoplasm of sigmoid colon (HCC) 02/12/2024 9:09 AM EST Scheduled Procedures Name Priority Associated [...] this encounter Medical Devices Implanted Type Area Area Attendant Device Identifier Shelf Expiration Date Model / Serial / Lot Power Port 8fr Sngl Lumen Plas - [id number] Implanted:Qty : 1 on 01/05/2023 by Jai Malcolm Jr., MD at OR [facility] Right: Chest CR BARD : PERIPHERAL VASCULAR [id number] 07/08/2024 [id number] / / [id number] documented as of this encounter Procedures Procedure Name Priority Date/Time Associated Diagnosis Comments DIFFERENTIAL, AUTOMATED STAT 02/12/2024 9:04 AM EST Malignant neoplasm of sigmoid colon (HCC) CBC STAT 02/12/2024 9:04 AM EST Malignant neoplasm of sigmoid colon (HCC) CBC STAT 02/12/2024 9:04 AM EST Malignant neoplasm of sigmoid colon (HCC) documented in this encounter Results * DIFFERENTIAL, AUTOMATED (02/12/2024 9:04 AM EST) WBC 6.95 4.00 - 10.80 K/uL 02/12/2024 9:08 AM EST LAB[facility]ORY [place] 57-10 Neutrophils % 65.3 40.0 - 75.0 % 02/12/2024 9:08 AM EST [facility] [place] 57-10 Lymphocytes % 21.7 18.0 - 42.0 % 02/12/2024 9:08 AM EST [facility] [place] 57-10 Monocytes % 8.8 1.0 - 11.0 % 02/12/2024 9:08 AM EST [facility] [place] 57-10 Eosinophils % 3.3 0.0 - 6.0 % 02/12/2024 9:08 AM EST [facility] [place] 57-10 Basophils % 0.9 0.0 - 2.0 % 02/12/2024 9:08 AM EST [facility] [place] 57-10 Absolute Neutrophils 4.54 1.80 - 7.70 K/uL 02/12/2024 9:08 AM EST [facility] [place] 57-10 Absolute Lymphocytes 1.51 1.00 - 4.80 K/ul 02/12/2024 9:08 AM EST [facility] [place] 57-10 Absolute Monocytes 0.61 0.00 - 1.10 K/uL 02/12/2024 9:08 AM EST [facility] [place] 57-10 Absolute Eosinophils 0.23 0.00 - 0.70 K/uL 02/12/2024 9:08 AM EST [facility] [place] 57-10 Absolute Basophils 0.06 0.00 - 0.20 K/uL 02/12/2024 9:08 AM EST [facility] [place] 57-10 Blood Venous blood specimen / Unknown Venipuncture / Unknown 02/12/2024 9:04 AM EST 02/12/2024 9:04 AM EST Chandni Almonte MD LAB BLOOD [facility] [place] 57[address] [place] [address] * (ABNORMAL) CBC (02/12/2024 9:04 AM EST) WBC 6.95 4.00 - 10.80 K/uL 02/12/2024 9:08 AM EST [facility] [place] 57-10 RBC 3.86 3.85 - 5.15 M/uL 02/12/2024 9:08 AM EST [facility] [place] 57-10 HGB 12.4 12.0 - 15.3 g/dL 02/12/2024 9:08 AM EST [facility] [place] 57-10 HCT 38.6 36.0 - 45.2 % 02/12/2024 9:08 AM EST [facility] [place] 57-10 MCV 100.0 81.5 - 97.5 fL 02/12/2024 9:08 AM EST [facility] [place] 57-10 MCH 32.1 27.0 - 34.0 pg 02/12/2024 9:08 AM EST [facility] [place] 57-10 MCHC 32.1 32.0 - 36.0 g/dL 02/12/2024 9:08 AM EST [facility] [place] 57-10 RDW 21.2 11.5 - 15.5 % 02/12/2024 9:08 AM EST [facility] [place] 57-10 PLT 125(L) 140 - 400 K/uL 02/12/2024 9:08 AM EST [facility] [place] 57-10 MPV 10.0 6.6 - 11.1 fL 02/12/2024 9:08 AM EST [facility] [place] 5710 Blood Venous blood specimen / Unknown Venipuncture / Unknown 02/12/2024 9:04 AM EST 02/12/2024 9:04 AM EST Chandni Almonte MD LAB BLOOD ORDERA BLES [facility] [place] 57-10 [address] [place] [address] documented in this encounter Visit Diagnoses Diagnosis [...] of Attor johann? No Care Teams Rn Eligibility Relationship Specialty Start Date End Date Lina Can MD [address] [place] [address] [place] [address] PCP - General Family Medicine 08/06/22 documented as of this encounter
--- OUTSIDE RECORDS SUMMARY | 2024-05-09 12:27 | External Medical Summary | Summary of Care ---
Author Name Unknown Organization [facility] Address [address] [place] [address] Phone [phone] Care Team Providers Care Physician Name Role Phone Lina Can MD Primary Care Prov ider Reason for Visit * Reason Comments Re-Check Treatment Encounter Details Date Type Department Care Team (Late st Contact Info) Description 02/13/2024 8:30 AM EST Office Visit Hematology/Oncology [facility] [address] [place] [address] Alisia Birmingham CRNP [address] [place] [address] Malignant neoplasm of sigmoid colon (HCC)*; Metastasis to bone (HCC); Prevention of chemotherapy-induced neutropenia; Urothelial carcinoma of bladder (HCC) Allergies Active [...] 138 mL infusion 4000 mg IV CONTINUOUS 02/12/2024 02/14/2024 Active documented as of this encounter (statuses [...] Sign Reading Time Taken Comments Blood Pressure 124/76 02/13/2024 8:30 AM EST Pulse 85 02/13/2024 8:30 AM EST Temperature 36.4 C (97.5 F) 02/13/2024 8:30 AM ES T Respiratory Rate - - Oxygen Saturation 98% 02/13/2024 8:30 AM EST Inhaled Oxygen Concentration - - Weight 53.6 kg (118 lb 1.6 oz) 02/13/2024 8:30 A M EST Height - - Body Mass Index 22.31 11/15/2023 10:01 AM EDT documented in this [...] shopping? (15 years old or older) No 08/18/20 23 Cognitive Status Response Date of Assessm ent Because of a physical, menta l, or emotional condition, do you have serious difficulty concentrating, remembering, or making decisions? (5 years old or older) No 11/25/2022 documented as of this encounter Progress Notes * Vinnie Alisia CunhaSANDRA nieto - 02/13/2024 8:30 AM EST Hematology/Oncology Outpatient Clinic note [facility] [address] [place] [address] Name: Nyasia Hdez Date: 02/12/2024 CHIEF COMPLAINT: Nyasia Hdez is a 69 year old female patient of Dr. Tariq Suzy here today for f/u visit today. From Patient chart confirmed with patient. HEMATOLOGY/ONCOLOGY DIAGNOSIS: Cancer of sigmoid colon - [id number] -now has developed metastatic disease Low-grade papillary [...] invasion of the mass into her uterus. Pension Agent onc was consulted intraoperatively and a ALEXA [...] nodes positive for carcinoma (5/15). - Stage: [id number]. D. Urinary bladder, biopsy: - Low-grade papillary [...] Small vessel Perineural Invasion Not identified Tumor Bryant Pond Score Intermediate (5-9) Type of Polyp in [...] probability of MSI-H) mmunotherapy Markers Tumor Mutational Capulin (TMB): TMB Unit Capulin 5.67 m/MB Low Microsatellite Instability Status (MSI): MSI Status 0 Stable Result Detail DNA Variants (SNV and indels): Gene Variant Tier Amino Acid Change Nucleotide Change Consequence Allele Frequency Sequencing Depth KRAS G12V Tier 1: Strong significance p.[id number] NM_[id number]: c.35G>T Missense Variant 28.1 % 1995 CDKN1B Y811Xdh*15 Tier 2: Potential significance p.[id number] NM_004064.5: c.326_327insT Frameshift Variant 29.5 % 987 TP53 K132R Tier 2: Potential significance p.[id number] NM_000546.6: c.395A>G Missense Variant 25.4 % 1991 [...] for f/u visit today and consideration for C4D1 of treatment. Patient experiencing ophthalmic migraines with this treatment plan. Has happened twice with last treatment cycle. Last for about 15 min. Denies painor nausea. Denies dizziness. Appetite is up and down. Is also not sleeping well. Sleeps for about 4hours and then wakes up. Will go back to bed at 5pm and sleep for 1-2 more hours. Especially when she gets her steroids with treatment this is a big problem. Will not sleep for over 24 hours. Denies mouth sores or pain. Had diarrhea for one weekend after treatment that does resolve with imodium. CIPN is stable in fingers and toes. Denies feeling at risk for falls. Denies rashes or skin changes. Denies bone pain from Udenyca. Does take tylenol for pain in left upper leg that keeps it tolerable. Past Medical History: Diagnosis Date Breast cancer (HCC) 1991 right mastectomy Cancer, metastatic to bone (HCC) Colon cancer (HCC) New onset atrial fibrillation (HCC) 11/02/2023 Past Surgical History: Procedure Laterality Date COLONOSCOPY, DIAGNOSTIC (RECTUM) N/A 10/06/2022 COLONOSCOPY FLEXIBLE PROXIMAL DIAGNOSTIC performed by Timoteo Ayala DO at ENDOSCOPY [facility] COLONOSCOPY, DIAGNOSTIC (RECTUM) 10/21/2022 A fungating partially obstructing large mass was found in the sigmoid colon, performed by Glo Garcia DO at ENDOSCOPY [facility] CYSTOSCOPY/INSERTION OF STENT Bilateral 11/25/2022 CYSTOURETHROSCOPY WITH INSERTION URETERAL STENT DUAL SERVICE performed by Kishan Leblanc MD at OR [facility] CYSTOSCOPY/TREAT SML BLADDER TUMOR N/A 11/25/2022 ADULT CYSTOURETHROSCOPY WITH FULGURATION SMALL BLADDER TUMOR performed by Kishan Leblanc MD at OR [facility] INSER TUNN ACC DEV;5 YRS/OLDER Right 01/05/2023 INSERT TUNNELED CENTRAL VENOUS ACCESS WITH SUBQ PORT performed by Jai Malcolm Jr., MD at OR [facility] IR BIOPSY 11/15/2023 LAPAROSCOPIC PARTIAL COLECTOMY W/COLOPROCTOSTOMY N/A 11/25/2022 ROBOTIC LAPAROSCOPIC PARTIAL COLECTOMY WITH COLOPROCTOSTOMY performed by Timoteo Ayala DO atOR [facility] LAPAROSCOPY TOTAL HYSTX, UTERUS 250GM OR LESS 11/25/2022 ROBOTIC LAPAROSCOPIC HYSTERECTOMY FOR UTERUS 250GM OR LESS performed by Vinay Rice MD at OR [facility] MASTECTOMY, SIMPLE, COMPLETE Right 1992 [place] HEPATOBILIARY [...] Social History Narrative Not on file Social Determinants of Health Financial Resource Strain: Not on file Food Insecurity: Patient Declined (08/10/2022) Hunger Vital Sign Worried About Running Out of Food in the Last Year: Patient declined Ran Out of Food in the Last Year: Patient declined Transportation Needs: Not on file Social Connections: Unknown (02/12/2024) Social Connections How often do you feel lonely or isolated from those around you? (Adult - for ages 18 years and over): Not on file Housing Stability: Not on file Review of patient's allergies indicates: Allergen Reactions Oxaliplatin Flushing Shortness of breath Augmentin [Amoxicillin-Pot Clavulanate] GI upset Doxycycline GI upset Reglan [Metoclopramide] Hives Current Outpatient Medications Medication Sig Dispense Refill Eliquis 5 MG Oral Tablet Take 1 Tablet by mouth in the morning and 1 Tablet before bedtime. Metoprolol Succinate ER 25 MG Oral Tablet Extended Release 24 Hour (toPROL XL) Take 1 Tablet by mouth in the morning. 30 Tablet 5 Acetaminophen 500 MG Oral Tablet (Tylenol Extra [...] disconnect every 2 weeks. 1.2 mL 5 Current Facility-Administered Medications Medication Dose Route Frequency Provider Last Rate Last Admin Fluorouracil (5-Fu) 4,000 mg in NSS 138 mL infusion 4,000 mg Intravenous Continuous Facility-Administered Medications Ordered in Other Visits Medication Dose Route Frequency Provider Last Rate Last Admin [START ON 02/13/2024] Fluorouracil (5-Fu) 4,000 mg for Home Infusion 2,400 mg/m2 (Treatment Plan Recorded) Intravenous Once Chandni Almonte MD REVIEW OF SYSTEMS: See HPI - otherwise negative OBJECTIVE: Filed Vitals: 02/13/24 0830 BP: 124/76 Pulse: 85 Temp: 36.4 C (97.5 F) TempSrc: Tympanic SpO2: 98% Weight: 53.6 kg (118 lb 1.6 oz) Wt Readings from Last 5 Encounters: 02/13/24 53.6 kg (118 lb 1.6 oz) 01/30/24 53.8 kg (118 lb 9.6 oz) 01/22/24 54.4 kg (120 lb) 01/16/24 54 kg (119 lb) 01/02/24 54.9 kg (121 lb) PHYSICAL EXAM: ECOG: Performance Status 1 [...] orders placed or performed in visit on 02/12/24 MAGNESIUM Result Value Ref Range Magnesium 2.4 1.5 - 2.6 mg/dL COMPREHENSIVE METABOLIC PANEL Result Value Ref Range BUN 10 6 - 20 mg/dL CREATININE 0.7 0.5 - 1.0 mg/dL EGFR >90 >=60 mL/min SODIUM 137 135 - 146 mmol/L POTASSIUM 4.1 3.5 - 5.1 mmol/L CHLORIDE 100 98 - 107 mmol/L CO2 25 22 - 32 mmol/L ANION GAP 12 7 - 15 mmol/L GLUCOSE 135 (H) 70 - 120 mg/dL Albumin 4.6 3.8 - 5.0 g/dL AST 15 10 - 35 U/L Alkaline Phosphatase 233 (H) 35 - 130 U/L Bilirubin, Total 0.4 <=1.2 mg/dL CALCIUM 10.0 8.4 - 10.2 mg/dL Protein 7.9 6.0 - 8.3 g/dL ALT 8 (L) 10 - 35 U/L CBC Result Value Ref Range WBC 6.95 4.00 - 10.80 K/uL RBC 3.86 3.85 - 5.15 M/uL HGB 12.4 12.0 - 15.3 g/dL HCT 38.6 36.0 - 45.2 % MCV 100.0 81.5 - 97.5 fL MCH 32.1 27.0 - 34.0 pg MCHC 32.1 32.0 - 36.0 g/dL RDW 21.2 11.5 - 15.5 % PLT 125 (L) 140 - 400 K/uL MPV 10.0 6.6 - 11.1 fL DIFFERENTIAL, AUTOMATED Result Value Ref Range WBC 6.95 4.00 - 10.80 K/uL Neutrophils % 65.3 40.0 - 75.0 % Lymphocytes % 21.7 18.0 - 42.0 % Monocytes % 8.8 1.0 - 11.0 % Eosinophils % 3.3 0.0 - 6.0 % Basophils % 0.9 0.0 - 2.0 % Absolute Neutrophils 4.54 1.80 - 7.70 K/uL Absolute Lymphocytes 1.51 1.00 - 4.80 K/ul Absolute Monocytes 0.61 0.00 - 1.10 K/uL Absolute Eosinophils 0.23 0.00 - 0.70 K/uL Absolute Basophils 0.06 0.00 - 0.20 K/uL URINALYSIS, REFLEX TO MICROSCOPIC Result Value Ref Range Color, Urine Yellow Light Yellow, Yellow, Dark Yellow Clarity, Urine Clear Clear Glucose, Urine Negative Negative mg/dL Bilirubin, Urine Negative Negative Ketone, Urine Negative Negative mg/dL Specific Apex, Urine 1.010 1.003 - 1.030 Blood, Urine Small (A) Negative pH, Urine 5.5 5.0 - 7.5 Units Protein, Urine Negative Negative mg/dL Urobilinogen, Urine 0.2 0.2, 1.0 mg/dL Nitrite, Urine Negative Negative Esterase, Urine Negative Negative MICROSCOPIC EXAM, URINE Result Value Ref Range RBC, Urine 0-2 0 - 2 /HPF WBC, Urine 3-5 (A) 0 - 2 /HPF Bacteria, Urine 0-25 0 - 25 /HPF IMPRESSION/PLAN: Cancer of sigmoid colon - [id number] Bone metastasis Prevention of chemotherapy induced neutropenia Lab results reviewed: unremarkable Ok for C4D1 of palliative FOLFIRI plus Avastin today as scheduled. Tolerating treatment plan reasonably well with no signs or symptoms of significant toxicity noted. Patient will self administer udenyca at home D4 for prevention of chemotherapy induced neutropenia No elevated CEA preoperatively Will plan for restaging scans s/p C6 Low-grade papillary urothelial carcinoma, noninvasive - under observation Following with Urology Plan for routine office cystoscopy in April RTC in 4 weeks with provider for chemo return RTC in six weeks with physician for chemo return/scan review SANDRA Limon documented in this encounter Nursing Notes * Kavita Mendez, MED ASSIST - 02/13/2024 8:31 AM EST Patient identifed by name and birthdate [...] it for you? ALREADY ACTIVE Filed Vitals: 02/13/24 0830 BP: 124/76 Pulse: 85 Temp: 36.4 C (97.5 F) TempSrc: Tympanic SpO2: 98% Weight: 53.6 kg (118 lb 1.6 oz) Patient was instructed to not get [...] Team (Late st Contact Info) Description 04/11/2024 2:00 PM EST Office Visit Urology Ashlie Louise [address] [place] [address] Manas Marie MD [address] [place] [address] 05/28/2024 7:30 AM EST Hospital Encounter OR [facility], Operating Room, [facility] - 4th Floor 400 [facility] [place] [address] Timoteo Ayala, DO [address] [place] [address] 05/28/2024 7:30 AM EST - 05/28/2024 8:16 AM EST Surgery OR [facility], Operating Room, [facility] - 4th Floor [address] [facility] [place] [phone] Timoteo Ayala, DO [address] [place] [address] COLONOSCOPY FLEXIBLE PROXIMAL DIAGNOSTIC 07/19/2024 11:30 AM EDT Office Visit Cardiology, [facility] [address] [place] [address] Ciro Saini, DO [address] [place] [address] 02/03/2025 1:00 PM EDT Office Visit Gynecology/Obstetr ics [facility] [address] [place] [address] Nelli Farrell CRNP [address] [place] [address] Scheduled Procedures Name Priority Associated Diagnoses Date/Ti [...] this encounter Medical Devices Implanted Type Area Sorter Pricer Device Identifier Shelf Expiration Date Model / Serial / Lot Power Port 8fr Sngl Lumen Plas - [id number] Implanted:Qty : 1 on 01/05/2023 by Jai Malcolm Jr., MD at [facility] Right: Chest CR BARD : PERIPHERAL VASCULAR [id number] 07/08/2024 [id number] / / [id number] documented as of this encounter Visit Diagnoses Diagnosis Malignant neoplasm of sigmoid colon (HCC)- Primary Malignant neoplasm of sigmoid colon Metastasis to bone (HCC) Secondary malignant neoplasm of bone and bone marrow Prevention of chemotherapy-induced neutropenia Urothelial carcinoma of bladder (HCC) Cancer of [...] Power of Attor johann? No Care Teams Physician Relationship Specialty Start Date End Date Lina aCn MD [address] [place] [address] [place] [address] PCP - General Family Medicine 08/06/22 documented as of this encounter
--- OUTSIDE RECORDS SUMMARY | 2024-05-09 12:27 | External Medical Summary ---
Author Name Unknown Address Unknown Organization [facility] [address] [place] [address] Laboratory Report Ordering Provider Test Date Status DANNIELLE OLVERA 02/12/2024 09:04:00 Final Observation Date Value Abnormality Reference (Units ) Status WBC, Total 02/12/2024 09:04:00 6.95 4.00-10.8 0 (K/uL) Final RBC 02/12/2024 09:04:00 3.86 3.85-5.15 (M/uL) Final Hemoglobin 02/12/2024 09:04:00 12.4 12.0-15.3 (g/dL) Final HCT 02/12/2024 09:04:00 38.6 36.0-45.2 (%) Final MCV 02/12/2024 09:04:00 100.0 81.5-97.5 (fL) Final MCH 02/12/2024 09:04:00 32.1 27.0-34.0 (pg) Final MCHC 02/12/2024 09:04:00 32.1 32.0-36.0 (g/dL) Final RDW 02/12/2024 09:04:00 21.2 11.5-15.5 (%) Final Platelets 02/12/2024 09:04:00 125 Below low normal 140 -400 (K/uL) Final MPV 02/12/2024 09:04:00 10.0 6.6-11.1 ( fL) Final Performing Location [facility]ORY [facility] [address] [place] [address]
--- OUTSIDE RECORDS SUMMARY | 2024-05-09 12:27 | External Medical Summary | Summary of Care ---
Author Name Unknown Organization [facility] Address [address] [place] [address] Phone [phone] Care Team Providers Care Meter Repairer Name Role Phone Lina Can MD Primary [...] ZIRABEV, 10 MG Chandni Almonte MD 200 [place] [address] Anc Hem/Onc [address] [address] Referral ID Status Reason Start Date Expiration Date V isits Requested Visits Authorized [id number] Authorized 11/22/2023 11/21/2024 999 999 Encounter Details Date Type Department Care Team (Latest Contact Info) Description 02/01/2024 1:15 PM EDT Immunization/ Injection Hematology/Oncology Treatment, [address] [address] Nasreen, Chair 3 Hem Onc [address] [place] [address] Encounter for antineoplastic chemotherapy*; Malignant neoplasm of sigmoid colon (HCC); Adjustment and management of infusion pump Allergies Active Allergy Reactions Criticality Noted Date Comments Amoxicillin-Pot Clavulanate 07/13/19 GI upset Doxycycline 07/12/2022 GI upset Oxaliplatin Flushing High 07/27/2023 Shortness of breath Metoclopramide Hives 08/10/2022 documented as of this encounter (statuses as of 02/01/2024) Medications Medication Sig Dispensed Refills Start Date [...] as of this encounter (statuses as of 02/01/2024) Active Problems Problem Noted Date Diagnosed Date [...] as of this encounter (statuses as of 02/01/2024) Immunizations No known immunizationsdocumented as of this [...] of this encounter Nursing Notes * Darlyn Hollins, RN - 02/01/2024 2:37 PM EDT Chair [...] Description 02/12/2024 9:30 AM EST Laboratory [facility], [facility] [phone] [facility] [address] 02/13/2024 8:30 AM EST Office Visit Hematology/Oncology [address] [place] [phone] Alisia Birmingham CRNP 400 [facility] [place] [address] 02/13/2024 9:00 AM EST Hem/Onc Treatment Hematology/Oncology Treatment, [place] [address] [facility] [phone] Nasreen, Chair 5 Hem Onc [facility] [address] [facility] [place] [address] 04/11/2024 2:00 PM EST Office Visit Urology Ashlie Louise [address] [place] [address] Manas Marie MD [address] [place] [address] 05/28/2024 Hospital Encounter OR [facility], Operating Room, [facility] - 4th Floor [address] [place] [address] Timoteo Ayala, DO [address] [facility] [place] [address] 07/19/2024 11:30 AM EDT Office Visit Cardiology, [facility] [address] [place] [address] Ciro Saini DO [address] [place] [address] 02/03/2025 1:00 PM EDT Office Visit Gynecology/Obstetric s [facility] [address] [place] [address] Nelli Farrell CRNP [address] [place] [address] Scheduled Procedures Name Priority Associated Diagnoses Date/Ti [...] this encounter Medical Devices Implanted Type Area Batch Mixing Truck Driver Device Identifier Shelf Expiration Date Model / Serial / Lot Power Port 8fr Sngl Lumen Plas - [id number] Implanted:Qty : 1 on 01/05/2023 by Jai Malcolm Jr., MD at [facility] Right: Chest CR BARD : PERIPHERAL VASCULAR [id number] 07/08/2024 [id number] / / [id number] documented as of this encounter Visit Diagnoses Diagnosis Encounter for antineoplastic chemotherapy- Primary Malignant neoplasm of sigmoid colon (HCC) Malignant neoplasm of sigmoid colon Adjustment and management of infusion pump Fitting and adjustment of other device documented in this encounter Administered Medications Active Administered Medications - up to 3 most recent administrations Medication Order MAR Action Action Date Dose Rate Site hEParin 100 UNIT/ML Lock Flush inj 500 Units 500 Units (5 mL), IV Lock, PRN Other, IV Flush, Starting on Shi 02/01/24 at 1327, Until 02/02/24 at 1326, For 24 hours, Do not flush if lock, PICC, or central line not in place; IV infusing or unable to flush. Given 02/01/2024 1:30 PM EDT 500 Units sodium chloride 0.9 % flush central line 10 mL 10 mL, IV Push, PRN Other, IV Flush, Starting on Shi 02/01/24 at 1327, Until 02/02/24 at 1326, For 24 hours, Do not flush if [...] Power of Attor johann? No Care Teams Meter Repairer Relationship Specialty Start Date End Date Lina Can MD [address] [place] [address] [place] [address] PCP - General Family Medicine 08/06/22 documented as of this encounter
--- OUTSIDE RECORDS SUMMARY | 2024-05-09 12:27 | External Medical Summary ---
Author Name Unknown Address Unknown Organization K0G:[facility] [place] [address] [facility] [address] Laboratory Report Ordering Provider Test Date Status DANNIELLE OLVERA 02/12/2024 09:04:00 Final Observation Date Value Abnormality Reference (Units ) Status SYNC LEUKOCYTES IN BLOOD BY AUTOMATED COUNT 02/12/2024 09:04:00 6.95 4.00-10.80 (K/uL) Final Segs 02/12/2024 09:04:00 65.3 40.0-75.0 (%) Final Lymphs % 02/12/2024 09:04:00 21.7 18.0-42.0 (%) Final Monos 02/12/2024 09:04:00 8.8 1.0-11.0 (%) Final Eosinophils 02/12/2024 09:04:00 3.3 0.0-6.0 (%) Final Basos 02/12/2024 09:04:00 0.9 0.0-2.0 (%) Final Absolute Segs 02/12/2024 09:04:00 4.54 1.80-7.70 (K/uL) Final Lymphs, absolute 02/12/2024 09:04:00 1.51 1.00-4.80 (K/ul) Final Monos, Abs 02/12/2024 09:04:00 0.61 0.00-1.10 (K/uL) Final Eos, Abs 02/12/2024 09:04:00 0.23 0.00-0.70 (K/uL) Final Basos, Abs 02/12/2024 09:04:00 0.06 0.00-0.20 (K/uL) Final Performing Location [facility] [place] [address] [facility] [address]
--- OUTSIDE RECORDS SUMMARY | 2024-05-09 12:27 | External Medical Summary | Summary of Care ---
Author Name Unknown Organization [facility] Address [address] [place] [address] Phone [phone] Care Team Providers Care Mold Yard Crane Operator Name Role Phone Lina Can MD Primary Care Prov ider Encounter Details Date Type Department Care Team (Late st Contact Info) Description 02/10/2024 Orders Only Hematology/Oncology, [facility] [address] [place] [address] Chandni Almonte MD [address] [place] [address] Allergies Active Allergy Reactions Criticality Noted Date Comments Amoxicillin-Pot Clavulanate 07/13/19 GI upset Doxycycline 07/12/2022 GI upset Oxaliplatin Flushing High 07/27/2023 Shortness of breath Metoclopramide Hives 08/10/2022 documented as of this encounter (statuses as of 02/10/2024) Medications Medication Sig Dispensed Refills Start Date [...] as of this encounter (statuses as of 02/10/2024) Active Problems Problem Noted Date Diagnosed Date [...] as of this encounter (statuses as of 02/10/2024) Immunizations No known immunizationsdocumented as of this [...] Description 02/12/2024 9:30 AM EST Laboratory Laboratory, [facility] 132 [facility] [place] [place] [phone] [facility] 132 [facility] [place] [address] 02/13/2024 8:30 AM EST Office Visit Hematology/Oncolog y [facility] Nasreen [place] [address] [place] [phone] Alisia Birmingham CRNP [address] [place] [address] [place] [address] 02/13/2024 9:00 AM EST Hem/Onc Treatment Hematology/Oncolog y Treatment, [place] [address] [place] [address] Nasreen, Chair 5 Hem Onc [place] [address] [place] [address] 04/11/2024 2:00 PM EST Office Visit Urology Ashlie Louise [address] [place] [address] Manas Marie MD [address] [place] [address] 05/28/2024 7:30 AM EST Hospital Encounter OR [facility], Operating Room, [facility] - 4th Floor 400 [facility] [place] [phone] Timoteo Ayala, DO [address] [place] [address] 05/28/2024 7:30 AM EST - 05/28/2024 8:16 AM EST Surgery OR [facility], Operating Room, [facility] - 4th Floor 400 [facility] [place] [phone] Timoteo Ayala, DO [address] [place] [address] COLONOSCOPY FLEXIBLE PROXIMAL DIAGNOSTIC 07/19/2024 11:30 AM EDT Office Visit Cardiology, [facility] [address] [place] [address] Ciro Saini, DO [address] [place] [address] 02/03/2025 1:00 PM EDT Office Visit Gynecology/Obstetr ics [facility] [address] [place] [address] Nelli Farrell CRNP [address] [place] [address] Scheduled Procedures Name Priority Associated Diagnoses Date/Ti [...] this encounter Medical Devices Implanted Type Area Financial Operations Clerk Device Identifier Shelf Expiration Date Model / Serial / Lot Power Port 8fr Sngl Lumen Plas - [id number] Implanted:Qty : 1 on 01/05/2023 by Jai Malcolm Jr., MD at OR [facility] Right: Chest CR BARD : PERIPHERAL VASCULAR [id number] 07/08/2024 [id number] / / [id number] documented as of this encounter Advance Directives [...] of Attor johann? No Care Teams Mold Yard Crane Operator Relationship Specialty Start Date End Date Lina Can MD [address] [place] [address] [place] [address] PCP - General Family Medicine 08/06/22 documented as of this encounter
--- OUTSIDE RECORDS SUMMARY | 2024-05-09 12:27 | External Medical Summary ---
Author Name Unknown Address Unknown Organization K[facility] [address] - [address] [place] [address] Laboratory Report Ordering Provider Test Date Status DANNIELLE OLVERA 02/12/2024 09:04:00 Final Observation Date Value Abnormality Reference (Units ) Status BUN 02/12/2024 09:04:00 10 6-20 (mg/dL) Final Creatinine 02/12/2024 09:04:00 0.7 0.5-1.0 (mg/dL) Final Glomerular filtration rate/1.73 sq M.predicted [Volume Rate/Area] in Serum, Plasma or Blood by Creatinine-based formula (CKD-EPI) 02/12/2024 09:04:00 >90 >=60 (mL/min) Final eGFR is calculated based on the CKD-EPI 2020 equation. Sodium 02/12/2024 09:04:00 137 135-146 (m mol/L) Final Potassium 02/12/2024 09:04:00 4.1 3.5-5.1 (m mol/L) Final Cl 02/12/2024 09:04:00 100 98-107 (mm ol/L) Final CO2 02/12/2024 09:04:00 25 22-32 (mmo l/L) Final Anion gap 02/12/2024 09:04:00 12 7-15 (mmol /L) Final Glucose 02/12/2024 09:04:00 135 Above high normal 70 -120 (mg/dL) Final Albumin 02/12/2024 09:04:00 4.6 3.8-5.0 (g /dL) Final AST (Aspartate aminotransferase) 02/12/2024 09:04:00 15 10-35 (U/L) Fin al Alk Phos 02/12/2024 09:04:00 233 Above high normal 35 -130 (U/L) Final Bilirubin, Total 02/12/2024 09:04:00 0.4 <=1 .2 (mg/dL) Final Calcium 02/12/2024 09:04:00 10.0 8.4-10.2 ( mg/dL) Final Protein 02/12/2024 09:04:00 7.9 6.0-8.3 (g /dL) Final ALT (Alanine aminotransferase) 02/12/2024 09:04:00 8 Below low normal 10-35 (U/L) Final Performing Location [facility] [place] [address] - [address] [facility] [place] [address]
--- OUTSIDE RECORDS SUMMARY | 2024-05-09 12:27 | External Medical Summary | Summary of Care ---
Author Name Unknown Organization [facility] Address [address] [place] [address] Phone [phone] Care Team Providers Care Bread Icer Name Role Phone Lina Can MD Primary Care Prov ider Reason for Visit * Reason Onset Date Comments Appointment 01/29/2024 Encounter Details Date Type Department Care Team (Late st Contact Info) Description 01/29/2024 Telephone General Surgery, [place] [address] [place] [address] Timoteo Ayala, [address] [place], [place] [phone] Appointment Allergies Active Allergy Reactions Criticality Noted Date [...] Telephone Encounter - Bruna Garcia OSA - 01/30/2024 9:19 AM EDT Call was made to patient and scheduled for the next available Colonoscopy with in [place] on 05/28/24. * Telephone Encounter - Denise Peterson OSA - 01/29/2024 4:12 PM EDT Patient needs to reschedule her colonoscopy. Please call her back. documented in this encounter Plan of Treatment Upcoming Encounters Date Type Department Care Team (Late st Contact Info) Description 01/30/2024 11:30 AM EDT Hem/Onc Treatment Hematology/Oncolo gy [facility], [place] [facility] [phone] Nasreen, Chair 2 Hem Onc [facility] 200 [facility] [place] [address] Encounter for antineoplastic chemotherapy*; Malignant neoplasm of sigmoid colon (HCC) 02/06/2024 9:08 AM EDT Hospital Encounter OR [facility], Operating Room, [facility] - 4th Floor 400 [facility] [place] [phone] Timoteo Ayala, DO [address] [place] [address] 02/06/2024 9:08 AM EDT - 02/06/2024 9:54 AM EDT Surgery OR [facility], Operating Room, [facility] - 4th Floor [address] [place] [phone] Timoteo Ayala, DO [address] [place] [address] COLONOSCOPY FLEXIBLE PROXIMAL DIAGNOSTIC 02/13/2024 8:30 AM EST Office Visit Hematology/Oncolo gy [facility] [place] 200 [facility] [place] [phone] Alisia Birmingham CRNP [address] [place] [phone] 04/11/2024 2:00 PM EST Office Visit Urology Ashlie Louise [address] [address] [place] [address] Manas Marie MD [address] [place] [address] 07/19/2024 11:30 AM EDT Office Visit Cardiology, [facility] [address] [place] [address] Ciro Saini DO [address] [place] [address] 02/03/2025 1:00 PM EDT Office Visit Gynecology/Obstet rics [facility] [address] [place] [address] Nelli Farrell CRNP [address] [place] [address] Scheduled Procedures Name Priority Associated Diagnoses Date/Ti me COLONOSCOPY FLEXIBLE PROXIMAL DIAGNOSTIC Cancer of sigmoid colon (HCC) 02/06/2024 9:08 AM EDT PRE / POST CARE Malignant neoplasm of [...] this encounter Medical Devices Implanted Type Area Wash Worker Device Identifier Shelf Expiration Date Model / Serial / Lot Power Port 8fr Sngl Lumen Plas - [id number] Implanted:Qty : 1 on 01/05/2023 by Jai Malcolm Jr., MD at [facility] Right: Chest CR BARD : PERIPHERAL VASCULAR [id number] 07/08/2024 [id number] / / [id number] documented as of this encounter Advance Directives [...] Power of Attor johann? No Care Teams Bread Icer Relationship Specialty Start Date End Date Lina Can MD [address] [place] [address] [place] [address] PCP - General Family Medicine 08/06/22 documented as of this encounter
--- OUTSIDE RECORDS SUMMARY | 2024-05-09 12:27 | External Medical Summary | Summary of Care ---
Author Name Unknown Organization [facility] Address [address] [place] [address] Phone [phone] Care Team Providers Care Welder Fitter Helper Name Role Phone Lina Can MD Primary Care Prov ider Encounter Details Date Type Department Care Team (Late st Contact Info) Description 02/05/2024 Telephone Hematology/Oncology [facility] [place] 200 [facility] [place] [phone] Chandni Almonte MD 200 [facility] [place] [address] Allergies Active Allergy Reactions Criticality Noted Date Comments Amoxicillin-Pot Clavulanate 07/13/19 GI upset Doxycycline 07/12/2022 GI upset Oxaliplatin [place]ushing High 07/27/2023 Shortness of breath Metoclopramide Hives 08/10/2022 documented as of this encounter (statuses as of 02/05/2024) Medications Medication Sig Dispensed Refills Start Date [...] as of this encounter (statuses as of 02/05/2024) Active Problems Problem Noted Date Diagnosed Date [...] as of this encounter (statuses as of 02/05/2024) Immunizations No known immunizationsdocumented as of this [...] Telephone Encounter - Jacinto Delaney RN - 02/05/2024 2:53 PM EDT Called patient, she states she was able to inject her Udenyca on the . Pt states she has been getting infrequent headaches/migraines. States she had this last time she was on treatment too. They only last around 20 minutes. She is drinking 4 bottles of water daily. Complains of severe fatigue, otherwise is doing ok. Advised her to let us know if she continues to have more frequent headaches/migraines, she will let us know. documented in this encounter Plan of Treatment Upcoming Encounters Date Type Department Care Team (Late st Contact Info) Description 02/12/2024 9:30 AM EST Laboratory Laboratory, [facility] 132 [facility] [place] [phone] Terrance Long 132 [facility] [place] [address] 02/13/2024 8:30 AM EST Office Visit Hematology/Oncology [facility] [address] [facility] [phone] Alisia [place] CRNP 400 [facility] [place] [address] 02/13/2024 9:00 AM EST Hem/Onc Treatment Hematology/Oncology Treatment, [place] [address] [place] [address] Nasreen, Chair 5 Hem Onc [facility] 200 [facility] [address] 04/11/2024 2:00 PM EST Office Visit Urology Ashlie [place] [address] [place] [address] Manas Marie MD 27 [place] [address] 05/28/2024 Hospital Encounter OR [facility], Operating Room, [facility] - 4th Floor [address] [place] [phone] Timoteo Ayala, DO [address] [place] [address] 07/19/2024 11:30 AM EDT Office Visit Cardiology, [facility] 132 [facility] [place] [address] Ciro Saini, 132 [facility] [place] [address] 02/03/2025 1:00 PM EDT Office Visit Gynecology/Obstetric s Jim Long [address] [place] [address] [place], SANDRA Murillo [address] [place] [address] Scheduled Procedures Name Priority Associated Diagnoses Date/Ti [...] this encounter Medical Devices Implanted Type Area Top Precipitator Operator Device Identifier Shelf Expiration Date Model / Serial / Lot Power Port 8fr Sngl Lumen Plas - [id number] Implanted:Qty : 1 on 01/05/2023 by Jai Malcolm Jr., MD at OR [facility] Right: Chest CR BARD : PERIPHERAL VASCULAR [id number] 07/08/2024 [id number] / / [id number] documented as of this encounter Advance Directives [...] Power of Attor johann? No Care Teams Welder Fitter Helper Relationship Specialty Start Date End Date Lina Can MD [address] [place] [address] [place] [phone] PCP - General Family Medicine 08/06/22 documented as of this encounter
--- OUTSIDE RECORDS SUMMARY | 2024-05-09 12:27 | External Medical Summary | Summary of Care ---
Author Name Unknown Organization [facility] Address [address] [place] [address] Phone [phone] Care Team Providers Care Business Center Representative Name Role Phone Lina Can MD Primary Care Prov ider Reason for Visit * Reason Onset Date Comments Health Maintenance 02/07/2024 Encounter Details Date Type Department Care Team (Late st Contact Info) Description 02/07/[address] [phone] Lina Can MD [address] [place] [address] [place] [address] Health Maintenance Allergies Active Allergy Reactions Criticality Noted Date Comments Amoxicillin-Pot Clavulanate 07/13/19 GI upset Doxycycline 07/12/2022 GI upset Oxaliplatin Flushing High 07/27/2023 Shortness of breath Metoclopramide Hives 08/10/2022 documented as of this encounter (statuses as of 02/07/2024) Medications Medication Sig Dispensed Refills Start Date [...] as of this encounter (statuses as of 02/07/2024) Active Problems Problem Noted Date Diagnosed Date [...] as of this encounter (statuses as of 02/07/2024) Immunizations No known immunizationsdocumented as of this [...] encounter Miscellaneous Notes * Telephone Encounter - Apolonia Sarmiento LPN - 02/07/2024 3:26 PM EDT Care Gaps Comprehensive Care Outreach Last Office/Telemedicine Visit: 11/06/2023 (in office), Visit date not found (telemedicine) Next Office Visit: Visit date not found Hemoglobin AIC Results: No results found for: "HEMOGLOBIN A1C" BP Readings from Last 1 Encounters: 01/30/24 121/74 Reviewed Health Maintenance below: Health Maintenance Topic Date Due Pneumococcal Vaccine: 65+ Years (1 of 2 - PCV) Never done Hepatitis C Screening Never done DTap/Tdap Vaccines (1 - Tdap) Never done Zoster Vaccines (1 of 2) Never done DXA Scan Never done Adult Wellness Visit Never done Depression Screening 08/11/2023 Ov dexa Care Gap Outreach Action Taken: unable to reach different name on vm? documented in this encounter Plan of Treatment Upcoming Encounters Date Type Department Care Team (Late st Contact Info) Description 02/12/2024 9:30 AM EST Laboratory Laboratory, [facility] 132 [facility] [place] [phone] [facility] 132 [facility] [place] [address] 02/13/2024 8:30 AM EST Office Visit Hematology/Oncolog y [facility] [place] [address] [place] [phone] Alisia Birmingham CRNP [address] [place] [address] 02/13/2024 9:00 AM EST Hem/Onc Treatment Hematology/Oncolog y Treatment, [place] [address] [place] [phone] Nasreen, Chair 5 Hem Onc [facility] [address] [facility] [address] 04/11/2024 2:00 PM EST Office Visit Urology Ashlie Louise [address] [place] [address] Manas Marie MD 27 [place] [address] 05/28/2024 7:30 AM EST Hospital Encounter OR [facility], Operating Room, [facility] - 4th Floor [address] [place] [phone] Timoteo Ayala, DO 100 [address] [facility] [place] [address] 05/28/2024 7:30 AM EST - 05/28/2024 8:16 AM EST Surgery OR [facility], Operating Room, [facility] - 4th Floor 400 [facility] [place] [phone] Timoteo Ayala, DO [address] [place] [address] COLONOSCOPY FLEXIBLE PROXIMAL DIAGNOSTIC 07/19/2024 11:30 AM EDT Office Visit Cardiology, [facility] [address] [facility] [place] [address] Ciro Saini, [address] [place] [address] 02/03/2025 1:00 PM EDT Office Visit Gynecology/Obstetr ics [facility] [address] [facility] [place] [address] Nelli Farrell CRNP [address] [place] [address] Scheduled Procedures Name Priority Associated Diagnoses Date/Ti [...] this encounter Medical Devices Implanted Type Area Bag Shop Worker Device Identifier Shelf Expiration Date Model / Serial / Lot Power Port 8fr Sngl Lumen Plas - [id number] Implanted:Qty : 1 on 01/05/2023 by Jai Malcolm Jr., MD at [facility] Right: Chest CR BARD : PERIPHERAL VASCULAR [id number] 07/08/2024 [id number] / / [id number] documented as of this encounter Advance Directives [...] of Attor johann? No Care Teams Business Center Representative Relationship Specialty Start Date End Date Lina Can MD [address] [place] [address] [place] [phone] PCP - General Family Medicine 08/06/22 documented as of this encounter
--- OUTSIDE RECORDS SUMMARY | 2024-05-09 12:27 | External Medical Summary | Summary of Care ---
Author Name Unknown Organization [facility] Address [address] [place] [address] Phone [phone] Care Team Providers Care Steersman Name Role Phone Lina Can MD Primary Care Prov ider Encounter Details Date Type Department Care Team (Late st Contact Info) Description 02/10/2024 Orders Only Hematology/Oncology, [facility] [address] [place] [address] Chandni Almonte MD [address] [place] [address] Allergies Active Allergy Reactions Criticality Noted [...] Description 02/12/2024 9:30 AM EST Laboratory Laboratory, [facility] 132 [facility] [place]ak [place] [phone] [facility] 132 [facility] [place] [address] 02/13/2024 8:30 AM EST Office Visit Hematology/Oncolog y [facility] Nasreen [place] [address] [place] [phone] Alisia Birmingham CRNP [address] [place] [address] [place] [address] 02/13/2024 9:00 AM EST Hem/Onc Treatment Hematology/Oncolog y Treatment, [place] [address] [place] [address] Nasreen, Chair 5 Hem Onc [place] [address] [place] [address] 04/11/2024 2:00 PM EST Office Visit Urology Ashlie Louise [address] [place] [address] Manas Marie MD 27 [place] [address] 05/28/2024 7:30 AM EST Hospital Encounter OR [facility], Operating Room, [facility] - 4th Floor 400 [place] [phone] Timoteo Ayala, DO [address] [place] [address] 05/28/2024 7:30 AM EST - 05/28/2024 8:16 AM EST Surgery OR [facility], Operating Room, [facility] - 4th Floor 400 [facility] [place] [phone] Timoteo Ayala, DO [address] [place] [address] COLONOSCOPY FLEXIBLE PROXIMAL DIAGNOSTIC 07/19/2024 11:30 AM EDT Office Visit Cardiology, [facility] [address] [place] [address] Ciro Saini, DO [address] [place] [address] 02/03/2025 1:00 PM EDT Office Visit Gynecology/Obstetr ics [facility] [address] [place] [address] Nelli Farrell CRNP [address] [place] [address] Scheduled Procedures Name Priority Associated Diagnoses Date/Ti [...] this encounter Medical Devices Implanted Type Area Sales Agent Protective Service Device Identifier Shelf Expiration Date Model / Serial / Lot Power Port 8fr Sngl Lumen Plas - [id number] Implanted:Qty : 1 on 01/05/2023 by Jai Malcolm Jr., MD at OR [facility] Right: Chest CR BARD : PERIPHERAL VASCULAR [id number] 07/08/2024 [id number] / / [id number] documented as of this encounter Advance Directives [...] Power of Attor johann? No Care Teams Steersman Relationship Specialty Start Date End Date Lina Can MD [address] [place] [address] [place] [address] PCP - General Family Medicine 08/06/22 documented as of this encounter
--- OUTSIDE RECORDS SUMMARY | 2024-05-09 12:27 | External Medical Summary | Summary of Care ---
Author Name Unknown Organization [facility] Address [address] [place] [address] Phone [phone] Care Team Providers Care Malt Loader Name Role Phone Lina Can MD Primary Care Prov ider Encounter Details Date Type Department Care Team (Late st Contact Info) Description 01/29/2024 Orders Only [facility] [address] [place] [address] Chandni Almonte MD [address] [place], [place] [phone] Allergies Active Allergy Reactions Criticality Noted Date Comments Amoxicillin-Pot Clavulanate 07/13/19 23 GI upset Doxycycline 07/12/2022 GI upset Oxaliplatin Flushing High 07/27/2023 Shortness of breath Metoclopramide Hives 08/10/2022 documented as of this encounter (statuses as of 01/29/2024) Medications Medication Sig Dispensed Refills Start Date [...] as of this encounter (statuses as of 01/29/2024) Active Problems Problem Noted Date Diagnosed Date [...] as of this encounter (statuses as of 01/29/2024) Immunizations No known immunizationsdocumented as of this [...] AM EDT Hem/Onc Treatment Hematology/Oncolog y Treatment, [place] [address] [place] [address] Nasreen, Chair 2 Hem Onc [place] [address] [place] [address] 02/06/2024 9:08 AM EDT Hospital Encounter [place] [facility], Operating Room, [facility] - 4th Floor [address] [place] [phone] Timoteo Ayala, DO [address] [facility] [place] [address] 02/06/2024 9:08 AM EDT - 02/06/2024 9:54 AM EDT Surgery OR [facility], Operating Room, [facility] - 4th Floor [address] [place] [phone] Timoteo Ayala, DO [address] [facility] [place] [address] COLONOSCOPY FLEXIBLE PROXIMAL DIAGNOSTIC 02/13/2024 8:30 AM EST Office Visit Hematology/Oncolog y [facility] [place] [address] [facility] [place] [phone] Alisia Birmingham CRNP 400 [facility] [place] [address] 04/11/2024 2:00 PM EST Office Visit Urology Ashlie Louise [address] [place] [address] Manas Marie MD 27 [place] [address] 07/19/2024 11:30 AM EDT Office Visit Cardiology, [facility] [address] [place] [address] Ciro Saini DO [address] [place] [address] 02/03/2025 1:00 PM EDT Office Visit Gynecology/Obstetr ics [facility] [address] [place] [address] Nelli Farrell CRNP [address] [place] [address] Scheduled Procedures Name Priority Associated Diagnoses Date/Ti [...] this encounter Medical Devices Implanted Type Area Radio Journalist Device Identifier Shelf Expiration Date Model / Serial / Lot Power Port 8fr Sngl Lumen Plas - [id number] Implanted:Qty : 1 on 01/05/2023 by Jai Malcolm Jr., MD at OR [facility] Right: Chest CR BARD : PERIPHERAL VASCULAR [id number] 07/08/2024 [id number] / / [id number] documented as of this encounter Advance Directives [...] Power of Attor johann? No Care Teams Malt Loader Relationship Specialty Start Date End Date Lina Can MD [address] [place] [address] [place] [address] PCP - General Family Medicine 08/06/22 documented as of this encounter
--- OUTSIDE RECORDS SUMMARY | 2024-05-09 12:27 | External Medical Summary ---
Author Name Unknown Address Unknown Organization [facility] [place] [address] - [address] [place] [address] Laboratory Report Ordering Provider Test Date Status DANNIELLE OLVERA 02/12/2024 09:09:08 Final Observation Date Value Abnormality Reference (Units ) Status RBC, Urine 02/12/2024 09:09:08 0-2 0-2 (/HPF) Final WBC, Urine 02/12/2024 09:09:08 3-5 Abnormal 0-2 (/HPF) Final Bacteria [#/area] in Urine sediment by Microscopy high power field 02/12/2024 09:09:08 0-25 0-25 (/HPF) Final Performing Location [facility] [place] [address] - [address] [facility] [address]
--- OUTSIDE RECORDS SUMMARY | 2024-05-09 12:27 | External Medical Summary ---
Author Name Unknown Address Unknown Organization [facility] [place] [address] - [address] [place] [address] Laboratory Report Ordering Provider Test Date Status DANNIELLE OLVERA 02/12/2024 09:09:08 Final Observation Date Value Abnormality Reference (Units ) Status Color of Urine by Auto 02/12/2024 09:09:08 Yellow Light Yellow, Yellow, Dark Yellow Final Clarity, Urine 02/12/2024 09:09:08 Clear Clear Final Glucose [Mass/volume] in Urine by Automated test strip 02/12/2024 09:09:08 Negative Negative (mg/dL) Final Bilirubin.total [Presence] in Urine by Automated test strip 02/12/2024 09:09:08 Negative Negative Final Ketones [Mass/volume] in Urine by Automated test strip 02/12/2024 09:09:08 Negative Negative (mg/dL) Final Specific gravity, Urine 02/12/2024 09:09:08 1.010 1.003-1.030 Final Hemoglobin [Presence] in Urine by Automated test strip 02/12/2024 09:09:08 Small Abnormal Negative Final pH, Urine 02/12/2024 09:09:08 5.5 5.0-7.5 (Units) Final Protein [Mass/volume] in Urine by Automated test strip 02/12/2024 09:09:08 Negative Negative (mg/dL) Final Urobilinogen [Mass/volume] in Urine by Automated test strip 02/12/2024 09:09:08 0.2 0.2, 1.0 (mg/dL) Final Nitrite [Presence] in Urine by Automated test strip 02/12/2024 09:09:08 Negative Negative Final Leukocyte esterase [Presence] in Urine by Automated test strip 02/12/2024 09:09:08 Negative Negative Final Performing Location [facility] [place] [address] - [address] [place] [address]
--- OUTSIDE RECORDS SUMMARY | 2024-05-09 12:27 | External Medical Summary ---
Author Name Unknown Address Unknown Organization K[facility] - [address] [place] [address] Laboratory Report Ordering Provider Test Date Status DANNIELLE OLVERA 02/12/2024 09:04:00 Final Observation Date Value Abnormality Reference (Units ) Status Magnesium 02/12/2024 09:04:00 2.4 1.5-2.6 (m g/dL) Final Performing Location [facility] - [address] [place] [address]
--- OUTSIDE RECORDS SUMMARY | 2024-05-09 12:27 | External Medical Summary | Summary of Care ---
Author Name Unknown Organization [facility] Address [address] [place] [address] Phone [phone] Care Team Providers Care Mission Assessment Specialist Name Role Phone Lina Can MD Primary Care Prov ider Reason for Visit * Reason Comments Procedure Pump d/c * Episode Based Medications (Routine) - Authorized Specialty Diagnoses / Procedures Referred By Contac t Referred To Contact Diagnoses Encounter for antineoplastic chemotherapy Malignant neoplasm of sigmoid colon (HCC) Procedures IA LEUCOVORIN CALCIUM INJECTION IA PALONOSETRON HCL IA FLUOROURACIL INJECTION IA IRINOTECAN INJECTION IA INJ., ZIRABEV, 10 MG Chandni Almonte MD 200 [facility] [place] [place] [address] Anc Hem/Onc [address] [address] Referral ID Status Reason Start Date Expiration Date V isits Requested Visits Authorized [id number] Authorized 11/22/2023 11/21/[phone] Encounter Details Date Type Department Care Team (Latest Contact Info) Description 02/01/2024 1:15 PM EDT Immunization/ Injection Hematology/Oncology Treatment, [address] [address] Nasreen, Chair 3 Hem Onc [address] [place] [address] Encounter for antineoplastic chemotherapy*; Malignant [...] Description 02/12/2024 9:30 AM EST Laboratory Laboratory, [facility] [phone] [facility] [address] 02/13/2024 8:30 AM EST Office Visit Hematology/Oncology [address] [place] [phone] Alisia Birmingham CRNP 400 [facility] [place] [address] 02/13/2024 9:00 AM EST Hem/Onc Treatment Hematology/Oncology Treatment, [place] [facility] [phone] Nasreen, Chair 5 Hem Onc [facility] 200 [facility] [place] [address] 04/11/2024 2:00 PM EST Office Visit Urology Ashlie Louise [address] [place] [address] Manas Marie MD 27 [place] [address] 05/28/2024 Hospital Encounter [facility], Operating Room, [facility] - 4th Floor [address] [place] [address] Timoteo Ayala, DO 100 [address] [facility] [place] [address] 07/19/2024 11:30 AM EDT Office Visit Cardiology, [facility] [address] [place] [address] Ciro Saini DO [address] [place] [address] 02/03/2025 1:00 PM EDT Office Visit Gynecology/Obstetric s [facility] [address] [place] [address] Nelli Farrell CRNP [address] [place] [address] Scheduled Procedures Name Priority Associated Diagnoses Date/Ti [...] this encounter Medical Devices Implanted Type Area Handle Maker Device Identifier Shelf Expiration Date Model / Serial / Lot Power Port 8fr Sngl Lumen Plas - [id number] Implanted:Qty : 1 on 01/05/2023 by Jai Malcolm Jr., MD at [facility] Right: Chest CR BARD : PERIPHERAL VASCULAR [id number] 07/08/2024 [id number] / / [id number] documented as of this encounter Visit Diagnoses [...] Power of Attor johann? No Care Teams Mission Assessment Specialist Relationship Specialty Start Date End Date Lina Can MD [address] [place] [address] [place] [id number] PCP - General Family Medicine 08/06/22 documented as of this encounter
--- OUTSIDE RECORDS SUMMARY | 2024-05-09 12:28 | External Medical Summary | Summary of Care ---
Author Name Unknown Organization [facility] Address [address] [place] [address] Phone [phone] Care Team Providers Care Churn Driller Name Role Phone Lina Can MD Primary Care Prov ider Reason for Visit * Reason Comments Outpatient Testing Encounter Details Date Type Department Care Team (Late st Contact Info) Description 01/29/2024 10:00 AM EDT Laboratory Laboratory, [facility] 132 [place] [address] [facility] 132 [place] [address] Malignant neoplasm of sigmoid colon (HCC) Allergies [...] AM EDT Hem/Onc Treatment Hematology/Oncolog y Treatment, [place] [address] [place] [phone] Nasreen, Chair 2 Hem Onc [place] [address] [place] [address] 02/06/2024 9:08 AM EDT Hospital Encounter [facility], Operating Room, [facility] - 4th Floor [address] [place] [phone] Timoteo Ayala, DO 100 [place] [facility] [place] [address] 02/06/2024 9:08 AM EDT - 02/06/2024 9:54 AM EDT Surgery OR [facility], Operating Room, [facility] - 4th Floor 400 [facility] [place] [address] Timoteo Ayala, DO [address] [place] [facility] [place] [address] COLONOSCOPY FLEXIBLE PROXIMAL DIAGNOSTIC 02/13/2024 8:30 AM EST Office Visit Hematology/Oncolog y [facility] [place] [address] [place] [address] Alisia Birmingham CRNP 400 [facility] [place] [address] 04/11/2024 2:00 PM EST Office Visit Urology Ashlie Louise [address] [place] [address] [place] [address] Manas Marie MD 27 [place] [address] 07/19/2024 11:30 AM EDT Office Visit Cardiology, [facility] [address] [place] [address] Ciro Saini, [address] [place] [address] 02/03/2025 1:00 PM EDT Office Visit Gynecology/Obstetr ics [facility] [address] [place] [phone] Nelli Farrell CRNP [address] [place] [address] Pending Results Name Type Priority Associated Diagnoses Date /Time MAGNESIUM Lab STAT Malignant neoplasm of sigmoid colon (HCC) 01/29/2024 8:54 AM EDT CBC WITH WBC DIFFERENTIAL Lab STAT Malignant neoplasm of sigmoid colon (HCC) 01/29/2024 8:54 AM EDT COMPREHENSIVE METABOLIC PANEL Lab STAT Malignant neoplasm of sigmoid colon (HCC) 01/29/2024 8:54 AM EDT URINALYSIS, REFLEX TO MICROSCOPIC Lab STAT Malignant neoplasm of sigmoid colon (HCC) 01/29/2024 8:54 AM EDT CBC Lab STAT Malignant neoplasm of sigmoid colon (HCC) 01/29/2024 8:54 AM EDT DIFFERENTIAL, AUTOMATED Lab STAT Malignant neoplasm of sigmoid colon (HCC) 01/29/2024 8:54 AM EDT Scheduled Procedures Name Priority Associated Diagnoses Date/Ti [...] this encounter Medical Devices Implanted Type Area Aircraft Engine Cylinder Mechanic Device Identifier Shelf Expiration Date Model / Serial / Lot Power Port 8fr Sngl Lumen Plas - [id number] Implanted:Qty : 1 on 01/05/2023 by Jai Malcolm Jr., MD at [facility] Right: Chest CR BARD : PERIPHERAL VASCULAR [id number] 07/08/2024 [id number] / / [id number] documented as of this encounter Visit Diagnoses [...] Power of Attor johann? No Care Teams Churn Driller Relationship Specialty Start Date End Date Lina Can MD [address] [place] [address] [place] [address] PCP - General Family Medicine 08/06/22 documented as of this encounter
--- OUTSIDE RECORDS SUMMARY | 2024-05-09 12:28 | External Medical Summary | Summary of Care ---
Author Name Unknown Organization [facility] Address [address] [place] [address] Phone [phone] Care Team Providers Care Community Service Manager Name Role Phone Lina Can MD Primary Care Prov ider Reason for Visit * Reason Comments Procedure Chemo pump disconnec t, port flush * Episode Based Medications (Routine) - Authorized Specialty Diagnoses / Procedures Referred By Contac t Referred To Contact Diagnoses Encounter for antineoplastic chemotherapy Malignant neoplasm of sigmoid colon (HCC) Procedures [place] LEUCOVORIN CALCIUM INJECTION [place] PALONOSETRON HCL [place] FLUOROURACIL INJECTION [place] IRINOTECAN INJECTION W[place] INJ., ZIRABEV, 10 MG Chandni Almonte MD 200 [facility] [place] [address] Anc Hem/Onc [address] [address] Referral ID Status Reason Start Date Expiration Date V isits Requested Visits Authorized [id number] Authorized 11/22/2023 11/21/2024 999 999 Encounter Details Date Type Department Care Team (Latest Contact Info) Description 12/21/2023 11:15 AM EDT Immunization/ Injection Hematology/Oncology Treatment, [address] [phone] Nasreen, Chair 1 Hem Onc [address] [place] [address] Encounter for antineoplastic chemotherapy*; Malignant neoplasm of sigmoid colon (HCC); Adjustment and management of infusion pump Allergies Active Allergy Reactions Criticality Noted Date Comments Amoxicillin-Pot Clavulanate 07/13/19 GI upset Doxycycline 07/12/2022 GI upset Oxaliplatin Flushing High 07/27/2023 Shortness of breath Metoclopramide Hives 08/10/2022 documented as of this encounter (statuses as of 01/23/2024) Medications Medication Sig Dispensed Refills Start Date [...] Active Ondansetron HCl 8 MG Oral Tablet (Zofran)Indications:Ma lignant neoplasm of sigmoid colon (HCC) Take 1 Tablet by mouth every 8 hours as needed for Nausea. 30 Tablet 1 12/18/2023 Active Prochlorperazine Maleate 10 MG Oral Tablet (Compazine)Indications :Malignant neoplasm of sigmoid colon (HCC) Take 1 Tablet by mouth every 6 hours as needed for Nausea. 30 Tablet 1 12/18/2023 Active documented as of this encounter (statuses as of 01/23/2024) Active Problems Problem Noted Date Diagnosed Date [...] as of this encounter (statuses as of 01/23/2024) Immunizations No known immunizationsdocumented as of this [...] Nursing Notes * Juliann Payne RN - 12/21/2023 12:20 PM EDT Patient here for Chemo pump disconnect and port flush. 5FU bag empty and infusion complete. VAD, + blood return, flushed with 10 ml NSS and Heparin 5 ml (100 units/ml). Bowie needle removed intact. Dressing applied. Patient discharged home in stable condition. documented in this encounter Plan of Treatment Upcoming Encounters Date Type Department Care Team (Late st Contact Info) Description 01/29/2024 10:00 AM EDT Laboratory Laboratory, [facility] 132 [facility] [phone] [facility] 132 [facility] [address] 01/30/2024 11:30 AM EDT Hem/Onc Treatment Hematology/Oncolog y Treatment, [place] [address] [facility] [phone] Nasreen, Chair 2 Hem Onc [address] [place] [address] 02/06/2024 9:08 AM EDT Hospital Encounter OR [facility], Operating Room, [facility] - 4th Floor 400 [place] [phone] Timoteo Ayala, DO [address] [place] [address] 02/06/2024 9:08 AM EDT - 02/06/2024 9:54 AM EDT Surgery OR [facility], Operating Room, [facility] - 4th Floor 400 [place] [phone] Timoteo Ayala, DO [address] [facility], [place] [phone] COLONOSCOPY FLEXIBLE PROXIMAL DIAGNOSTIC 02/13/2024 8:30 AM EST Office Visit Hematology/Oncolog y [facility] Nasreen [place] 200 [facility] [place] [phone] Alisia Birmingham CRNP [address] [place] [address] 04/11/2024 2:00 PM EST Office Visit Urology Ashlie Louise [address] [place] [address] Manas Marie MD [address] [place] [address] 07/19/2024 11:30 AM EDT Office Visit Cardiology, [facility] [address] [facility] [place] [address] Ciro Saiin DO [address] [place] [address] 02/03/2025 1:00 PM EDT Office Visit Gynecology/Obstetr ics [facility] [address] [place] [address] Nelli Farrell CRNP [address] [place] [address] Scheduled Procedures Name Priority Associated Diagnoses Date/Ti [...] this encounter Medical Devices Implanted Type Area Salt Grinder Device Identifier Shelf Expiration Date Model / Serial / Lot Power Port 8fr Sngl Lumen Plas - [id number] Implanted:Qty : 1 on 01/05/2023 by Jai Malcolm Jr., MD at [facility] Right: Chest CR BARD : PERIPHERAL VASCULAR [id number] 07/08/2024 [id number] / / [id number] documented as of this encounter Visit Diagnoses [...] PRN Other, IV Flush, Starting on Shi 12/21/23 at 1125, Until Shi 12/21/23 at 2026, For 24 hours, Do not flush if lock, PICC, or central line not in place; IV infusing or unable to flush. Given 12/21/2023 11:30 AM EDT 500 Units sodium chloride 0.9 % flush central line 10 mL 10 mL, IV Push, PRN Other, IV Flush, Starting on Shi 12/21/23 at 1125, Until Shi 12/21/23 at 2026, For 24 hours, Do not flush if lock, PICC, or central line not in place; IV infusing or unable to flush. Given 12/21/2023 11:30 AM EDT 10 mL documented in this encounter [...] Power of Attor johann? No Care Teams Community Service Manager Relationship Specialty Start Date End Date Lina Can MD [address] [place] [address] [place] [phone] PCP - General Family Medicine 08/06/22 documented as of this encounter
--- OUTSIDE RECORDS SUMMARY | 2024-05-09 12:28 | External Medical Summary | Summary of Care ---
Author Name Unknown Organization [facility] Address [address] [place] [address] Phone [phone] Care Team Providers Care Barrel Rifler Operator Name Role Phone Lina Can MD Primary Care Prov ider Reason for Visit * Reason Onset Date Comments Test Results 01/16/2024 Encounter Details Date Type Department Care Team (Late st Contact Info) Description 01/16/2024 Telephone Cardiology, [facility] [address] [place] [address] Ciro Saini, [address] [place] [address] Test Results Allergies Active Allergy Reactions Criticality Noted Date Comments Amoxicillin-Pot Clavulanate 07/13/19 GI upset Doxycycline 07/12/2022 GI upset Oxaliplatin Flushing High 07/27/2023 Shortness of breath Metoclopramide Hives 08/10/2022 documented as of this encounter (statuses as of 01/25/2024) Medications Medication Sig Dispensed Refills Start Date [...] as of this encounter (statuses as of 01/25/2024) Active Problems Problem Noted Date Diagnosed Date [...] as of this encounter (statuses as of 01/25/2024) Immunizations No known immunizationsdocumented as of this [...] encounter Miscellaneous Notes * Telephone Encounter - Ciro Saini DO - 01/16/2024 6:12 PM EDT Cardio scheduling: please arrange cardio follow up visit in 2024. Ciro Saini DO * Telephone Encounter - Ciro Saini DO - 01/16/2024 6:11 PM EDT I called patient discussed results of her recent echocardiogram with her. Echocardiogram reveals normal left atrial size, normal left ventricular systolic function, no significant valvular disease. She is to continue metoprolol succinate 12.5 mg daily, Eliquis 5 mg twice daily. She has had microscopic hematuria on several recent urinalysis. She has treatment plan underway with regards to recurrent colon cancer and has an upcoming colonoscopy this month. Ciro Saini DO documented in this encounter Plan of Treatment Upcoming Encounters Date Type Department Care Team (Late st Contact Info) Description 01/29/2024 10:00 AM EDT Laboratory Laboratory, [facility] 132 [place] [phone] [facility] 132 [place] [address] 01/30/2024 11:30 AM EDT Hem/Onc Treatment Hematology/Oncolog y Treatment, [place] 200 [place] [phone] Nasreen, Chair 2 Hem Onc [address] [place] [address] 02/06/2024 9:08 AM EDT Hospital Encounter OR [facility], Operating Room, [facility] - 4th Floor 400 [place] [phone] Timoteo Ayala, DO [address] [place] [address] 02/06/2024 9:08 AM EDT - 02/06/2024 9:54 AM EDT Surgery OR [facility], Operating Room, [facility] - 4th Floor 400 [place] [phone] Timoteo Ayala DO [address] [place] [address] COLONOSCOPY FLEXIBLE PROXIMAL DIAGNOSTIC 02/13/2024 8:30 AM EST Office Visit Hematology/Oncolog y [facility] Nasreen [place] [address] [place] [phone] Alisia Birmingham CRNP 400 [facility] [place] [address] 04/11/2024 2:00 PM EST Office Visit Urology Ashlie Louise [address] [place] [address] Manas Marie MD [address] [place] [address] 07/19/2024 11:30 AM EDT Office Visit Cardiology, [facility] [address] [place] [address] Ciro Saini DO [address] [place] [address] 02/03/2025 1:00 PM EDT Office Visit Gynecology/Obstetr ics [facility] [address] [place] [address] Nelli Farrell CRNP [address] [facility] [place] [address] Scheduled Procedures Name Priority Associated Diagnoses Date/Ti [...] this encounter Medical Devices Implanted Type Area Synthetic Gem Press Operator Device Identifier Shelf Expiration Date Model / Serial / Lot Power Port 8fr Sngl Lumen Plas - [id number] Implanted:Qty : 1 on 01/05/2023 by Jai Malcolm Jr., MD at [facility] Right: Chest CR BARD : PERIPHERAL VASCULAR [id number] 07/08/2024 [id number] / / [id number] documented as of this encounter Advance Directives [...] Power of Attor johann? No Care Teams Barrel Rifler Operator Relationship Specialty Start Date End Date Lina Can MD [address] [place] [address] [place] [address] PCP - General Family Medicine 08/06/22 documented as of this encounter
--- OUTSIDE RECORDS SUMMARY | 2024-05-09 12:28 | External Medical Summary ---
Author Name Unknown Address Unknown Organization K01:[facility] - [address] [place] [address] Laboratory Report Ordering Provider Test Date Status DANNIELLE OLVERA 01/29/2024 08:54:58 Final Observation Date Value Abnormality Reference (Units ) Status Magnesium 01/29/2024 08:54:58 2.0 1.5-2.6 (m g/dL) Final Performing Location [facility] - [address] [place] [address]
--- OUTSIDE RECORDS SUMMARY | 2024-05-09 12:28 | External Medical Summary ---
Author Name Unknown Address Unknown Organization K0G:[facility] [place] [place] [address] - [address] [place]anne [place] [address] Laboratory Report Ordering Provider Test Date Status DANNIELLE OLVERA 01/29/2024 08:54:58 Final Observation Date Value Abnormality Reference (Units ) Status BUN 01/29/2024 08:54:58 9 6-20 (mg/dL) Final Creatinine 01/29/2024 08:54:58 0.7 0.5-1.0 (mg/dL) Final Glomerular filtration rate/1.73 sq M.predicted [Volume Rate/Area] in Serum, Plasma or Blood by Creatinine-based formula (CKD-EPI) 01/29/2024 08:54:58 >90 >=60 (mL/min) Final eGFR is calculated based on the CKD-EPI 2020 equation. Sodium 01/29/2024 08:54:58 138 135-146 (m mol/L) Final Potassium 01/29/2024 08:54:58 4.0 3.5-5.1 (m mol/L) Final Cl 01/29/2024 08:54:58 101 98-107 (mm ol/L) Final CO2 01/29/2024 08:54:58 23 22-32 (mmo l/L) Final Anion gap 01/29/2024 08:54:58 14 7-15 (mmol /L) Final Glucose 01/29/2024 08:54:58 121 Above high normal 70 -120 (mg/dL) Final Albumin 01/29/2024 08:54:58 4.3 3.8-5.0 (g /dL) Final AST (Aspartate aminotransferase) 01/29/2024 08:54:58 16 10-35 (U/L) Fin al Alk Phos 01/29/2024 08:54:58 163 Above high normal 35 -130 (U/L) Final Bilirubin, Total 01/29/2024 08:54:58 0.3 <=1 .2 (mg/dL) Final Calcium 01/29/2024 08:54:58 9.4 8.4-10.2 ( mg/dL) Final Protein 01/29/2024 08:54:58 6.8 6.0-8.3 (g /dL) Final ALT (Alanine aminotransferase) 01/29/2024 08:54:58 9 Below low normal 10-35 (U/L) Final Performing Location [facility] [place] [address] - [address] [facility] [address]
--- OUTSIDE RECORDS SUMMARY | 2024-05-09 12:28 | External Medical Summary | Summary of Care ---
Author Name Unknown Organization [facility] Address [address] [place] [address] Phone [phone] Care Team Providers Care School Admissions Representative Name Role Phone Lina Can MD Primary Care Prov ider Reason for Visit * Reason Comments Chemotherapy C1D1 FOLFIRI + Zirab ev * Episode Based Medications (Routine) - Authorized Specialty Diagnoses / Procedures Referred By Contac t Referred To Contact Diagnoses Encounter for antineoplastic chemotherapy Malignant neoplasm of sigmoid colon (HCC) Procedures [place] LEUCOVORIN CALCIUM INJECTION [place] PALONOSETRON HCL [place] FLUOROURACIL INJECTION [place] IRINOTECAN INJECTION [place] INJ., ZIRABEV, 10 MG Chandni Almonte MD [address] [place] [id number] Anc Hem/Onc [address] [address] Referral ID Status Reason Start Date Expiration Date V isits Requested Visits Authorized [id number] Authorized 11/22/2023 11/21/2024 999 999 Encounter Details Date Type Department Care Team (Latest Contact Info) Description 12/19/2023 9:30 AM EDT Hem/Onc Treatment Hematology/Oncolog y Treatment, [address] [address] Encounter for antineoplastic chemotherapy*; Malignant neoplasm of [...] Greater than ) or Pain, Moderate. Active Hospital, Clinic, or Other Facility Administered Medication Ordered Dose Route Frequency Start Date End Date Status Fluorouracil (5-Fu) 4,000 mg in NSS 138 mL infusion 4000 mg IV CONTINUOUS 12/18/2023 12/20/2023 Discontinued documented as of this encounter (statuses [...] Tobacco: Every Day Cigarettes Smokeless Tobacco: Never Tobacco Cessation:Ready to Q uit: Not Asked; Counseling Given: Not Answered Alcohol Use Standard Drinks/Week Comments Not Currently [...] Sign Reading Time Taken Comments Blood Pressure 128/75 12/19/2023 9:35 AM EDT Pulse 87 12/19/2023 9:35 AM EDT Temperature 36.5 C (97.7 F) 12/19/2023 9:35 AM ED T Respiratory Rate 16 12/19/2023 9:35 AM EDT Oxygen Saturation 95% 12/19/2023 9:35 AM EDT Inhaled Oxygen Concentration - - Weight 56.5 kg (124 lb 9.6 oz) 12/19/2023 9:35 A M EDT Height - - Body Mass Index 23.54 11/15/2023 10:01 AM EDT documented in this [...] of this encounter Progress Notes * Jacinto Delaney RN - 12/18/2023 11:43 AM EDT Review labs with Dr. Almonte: PLT 93 Ok to proceed with infusion tomorrow. documented in this encounter Nursing Notes * Kristin Richey RN - 12/19/2023 1:40 PM EDT Goals: Patient will remain free from injury. Possible barriers to meeting goals: ambulation with IV pole. Stability of the patient: Moderately stable - low risk of patient condition declining or worsening Summary regarding today's goals: Met: Patient remained free from injury. Goals: Patient will remain free from injury. Possible barriers to meeting goals: ambulation with IV pole. Stability of the patient: Moderately stable - low risk of patient condition declining or worsening Summary regarding today's goals: Met: Patient remained free from injury. Pt scheduled for pump disconnect 12/21/23 * Kristin Richey RN - 12/19/2023 10:29 AM EDT Chair 5 Chemotherapy/Immunotherapy agents: ZIRABEV and FOLFIRI (leucovorin, 5-FU, & irinotecan) Consent for chemotherapy drug treatment complete, dated, and signed? yes, date - 11/22/23 Treatment lab parameters met? Yes Has treatment weight changed > than 10%? No Treatment preauthorized? Yes VITALS Filed Vitals: 12/19/23 0935 BP: 128/75 Pulse: 87 Resp: 16 Temp: 36.5 C (97.7 F) TempSrc: Tympanic SpO2: 95% Weight: 56.5 kg (124 lb 9.6 oz) Urine protein: NEGATIVE Patient education completed for treatment? Yes Blood transfusion consent signed and complete? NA Return appointment scheduled? Yes PRE-TREATMENT ASSESSMENT: NEURO: denies symptoms CV/RESP: denies symptoms GI/: denies symptoms OTHER: denies any additional symptoms PAIN: 0 Patient had provider visit today? No - [...] symptoms or adverse side effects during treatment. Safety and Risk for Injury Patient will remain free from injury. Ensure appropriate safety devices are available. Provide and maintain safe environment. Patient Education: Patient instructed on use of [...] Description 01/29/2024 10:00 AM EDT Laboratory Laboratory, [facility] [phone] Terrance Long [facility] [address] 01/30/2024 11:30 AM EDT Hem/Onc Treatment Hematology/Oncolog y Treatment, [place] [address] [place] [phone] Park, Chair 2 Hem Onc Scenery [address] [place] [address] 02/06/2024 9:08 AM EDT Hospital Encounter OR GL, Operating Room, [facility] - 4th Floor [address] [place] [phone] Timoteo Ayala, DO [address] [place] [address] 02/06/2024 9:08 AM EDT - 02/06/2024 9:54 AM EDT Surgery OR GLH, Operating Room, [facility] - 4th Floor 400 [facility] [place] [address] Timoteo Ayala, DO [address] [place] [address] COLONOSCOPY FLEXIBLE PROXIMAL DIAGNOSTIC 02/13/2024 8:30 AM EST Office Visit Hematology/Oncolog y [facility] [address] [place] [address] Alisia Birmingham CRNP 400 [place] [address] 04/11/2024 2:00 PM EST Office Visit Urology Ashlie Louise [address] [place] [address] [place] [address] Manas Marie MD 27 [place] [address] 07/19/2024 11:30 AM EDT Office Visit Cardiology, [facility] [address] [place] [address] Ciro Saini, [address] [place] [address] 02/03/2025 1:00 PM EDT Office Visit Gynecology/Obstetr ics [facility] [address] [place] [address] Nelli Farrell CRNP [address] [place] [address] Scheduled Procedures Name Priority Associated Diagnoses Date/Ti [...] this encounter Medical Devices Implanted Type Area Assembler Cards And Announcements Device Identifier Shelf Expiration Date Model / Serial / Lot Power Port 8fr Sngl Lumen Plas - [id number] Implanted:Qty : 1 on 01/05/2023 by Jai Malcolm Jr., MD at OR [facility] Right: Chest CR BARD : PERIPHERAL VASCULAR [id number] 07/08/2024 [id number] / / [id number] documented as of this encounter Visit Diagnoses [...] mg 0.4 mg, IV Push, ONCE, On Mon12/19/23 at 1045, For 1 dose, Administer prior to irinotecan Given 12/19/2023 11:33 AM EDT 0.4 mg bevaCIZumab-bvzr (Zirabev) 300 mg in NSS 100 mL infusion 300 mg (rounded from 291.5 mg = 5 mg/kg 58.3 kg Treatment plan Recorded weight), IV Piggyback, ONCE, 1 dose, On Mon12/19/23 at 1045, Administer over 30 Minutes Start Infusion 12/19/2023 10:40 AM EDT 300 mg 210 mL/hr dexAMETHasone (Decadron) tab 12 mg 12 mg, Oral, ONCE, On Mon12/19/23 at 1045, For 1 dose Given 12/19/2023 10:22 AM EDT 12 mg Fluorouracil (5-Fu) 4,000 mg for Home Infusion 4,000 mg (rounded from 3,792 mg = 2,400 mg/m2 1.58 m2 Treatment Plan BSA from Recorded weight), Intravenous, Administer over 46 Hours, Home Infusion Pharmacy to specify base solution and volume., ONCE, 1 dose, On Mon12/19/23 at 1115 Start Infusion 12/19/2023 1:30 PM EDT 4,000 mg 3 mL/hr Fluorouracil (5-Fu) inj 650 mg 650 mg (rounded from 632 mg = 400 mg/m2 1.58 m2 Treatment Plan BSA from Recorded weight), IV Push, ONCE, 1 dose, On Mon12/19/23 at 1100 Given 12/19/2023 1:25 PM EDT 650 mg irinotecan HCl (Camptosar) 280 mg in D5W 500 mL infusion 280 mg (rounded from 284.4 mg = 180 mg/m2 1.58 m2 Treatment Plan BSA from Recorded weight), IV Piggyback, ONCE, 1 dose, On Mon12/19/23 at 1045, Administer over 90 Minutes, PROTECT FROM LIGHT Start Infusion 12/19/2023 11:41 AM EDT 280 mg 349.33 mL/hr leucovorin calcium 650 mg in D5W 250 mL INFUSION 650 mg (rounded from 632 mg = 400 mg/m2 1.58 m2 Treatment Plan BSA from Recorded weight), IV Piggyback, ONCE, 1 dose, On Mon12/19/23 at 1045, Administer over 90 Minutes, Before 5-FU Start Infusion 12/19/2023 11:32 AM EDT 650 mg 170 mL/hr NSS infusion Intravenous, at 50 mL/hr, PRN, Starting on Mon12/19/23 at 0830, Until Mon12/19/23 at 1909, Maintenance line Start Infusion 12/19/2023 10:19 AM EDT 50 mL/hr Palonosetron (Aloxi) inj SOLN 0.25 mg 0.25 mg, IV Push, ONCE, On Mon12/19/23 at 1045, For 1 dose, Restricted per [facility] antiemetic guidelines Given 12/19/2023 10:21 AM EDT 0.25 mg documented in this [...] Power of Attor johann? No Care Teams School Admissions Representative Relationship Specialty Start Date End Date Lina Can MD [address] [place] [address] [place] [address] PCP - General Family Medicine 08/06/22 documented as of this encounter
--- OUTSIDE RECORDS SUMMARY | 2024-05-09 12:28 | External Medical Summary | Summary of Care ---
Author Name Unknown Organization [facility] Address [address] [place] [address] Phone [phone] Care Team Providers Care A And P Mechanic Name Role Phone Lina Can MD Primary Care Prov ider Reason for Visit * Reason Comments Chemotherapy C1D1 FOLFIRI + Zirab ev * Episode Based Medications (Routine) - Authorized Specialty Diagnoses / Procedures Referred By Contac t Referred To Contact Diagnoses Encounter for antineoplastic chemotherapy Malignant neoplasm of sigmoid colon (HCC) Procedures [place] LEUCOVORIN CALCIUM INJECTION [place] PALONOSETRON HCL [place] FLUOROURACIL INJECTION [place] IRINOTECAN INJECTION [place] INJ., ZIRABEV, 10 MG Chandni Almonte MD [address] [place] [id number] Anc Hem/Onc [address] [address] Referral ID Status Reason Start Date Expiration Date V isits Requested Visits Authorized [id number] Authorized 11/22/2023 11/21/2024 999 999 Encounter Details Date Type Department Care Team (Latest Contact Info) Description 12/19/2023 9:30 AM EDT Hem/Onc Treatment Hematology/Oncolog y Treatment, [address] [address] Encounter for antineoplastic chemotherapy*; Malignant [...] Description 01/29/2024 10:00 AM EDT Laboratory Laboratory, [facility] [phone] Terrance Long [facility] [address] 01/30/2024 11:30 AM EDT Hem/Onc Treatment Hematology/Oncolog y Treatment, [place] [address] [place] [phone] Park, Chair 2 Hem Onc Scenery [address] [place] [address] 02/06/2024 9:08 AM EDT Hospital Encounter OR GL, Operating Room, [facility] - 4th Floor [address] [place] [phone] Timoteo Ayala, DO [address] [place] [address] 02/06/2024 9:08 AM EDT - 02/06/2024 9:54 AM EDT Surgery OR GLH, Operating Room, [facility] - 4th Floor 400 [facility] [place] [address] Timoteo Ayala, DO [address] [place] [address] COLONOSCOPY FLEXIBLE PROXIMAL DIAGNOSTIC 02/13/2024 8:30 AM EST Office Visit Hematology/Oncolog y [facility] [address] [place] [address] Alisia Birmingham CRNP 400 [facility] [place] [place] [address] 04/11/2024 2:00 PM EST Office Visit Urology Ashlie Louise [address] [place] [address] [place] [address] Manas Marie MD 27 [place] [address] 07/19/2024 11:30 AM EDT Office Visit Cardiology, [facility] [address] [place] [address] Ciro Saini, [address] [place] [address] 02/03/2025 1:00 PM EDT Office Visit Gynecology/Obstetr ics [facility] [address] [place] [address] Nelli Farrell CRNP [address] [place] [address] Scheduled Procedures Name Priority Associated Diagnoses Date/Ti [...] this encounter Medical Devices Implanted Type Area Funeral Home General Manager Device Identifier Shelf Expiration Date Model / Serial / Lot Power Port 8fr Sngl Lumen Plas - [id number] Implanted:Qty : 1 on 01/05/2023 by Jai Malcolm Jr., MD at OR [facility] Right: Chest CR BARD : PERIPHERAL VASCULAR [id number] 07/08/2024 [id number] / / [id number] documented as of this encounter Visit Diagnoses [...] at 1045, For 1 dose, Restricted per [facility] antiemetic guidelines Given 12/19/2023 10:21 AM EDT [...] Power of Attor johann? No Care Teams A And P Mechanic Relationship Specialty Start Date End Date Lina Can MD [address] [place] [address] [place] [address] PCP - General Family Medicine 08/06/22 documented as of this encounter
--- OUTSIDE RECORDS SUMMARY | 2024-05-09 12:28 | External Medical Summary ---
Author Name Unknown Address Unknown Organization [facility] [place] [address] Laboratory Report Ordering Provider Test Date Status DANNIELLE OLVERA 01/29/2024 08:54:58 Final Observation Date Value Abnormality Reference (Units ) Status Color of Urine by Auto 01/29/2024 08:54:58 Yellow Light Yellow, Yellow, Dark Yellow Final Clarity, Urine 01/29/2024 08:54:58 Clear Clear Final Glucose [Mass/volume] in Urine by Automated test strip 01/29/2024 08:54:58 Negative Negative (mg/dL) Final Bilirubin.total [Presence] in Urine by Automated test strip 01/29/2024 08:54:58 Negative Negative Final Ketones [Mass/volume] in Urine by Automated test strip 01/29/2024 08:54:58 Negative Negative (mg/dL) Final Specific gravity, Urine 01/29/2024 08:54:58 1.015 1.003-1.030 Final Hemoglobin [Presence] in Urine by Automated test strip 01/29/2024 08:54:58 Trace Abnormal Negative Final pH, Urine 01/29/2024 08:54:58 6.0 5.0-7.5 (Units) Final Protein [Mass/volume] in Urine by Automated test strip 01/29/2024 08:54:58 Negative Negative (mg/dL) Final Urobilinogen [Mass/volume] in Urine by Automated test strip 01/29/2024 08:54:58 0.2 0.2, 1.0 (mg/dL) Final Nitrite [Presence] in Urine by Automated test strip 01/29/2024 08:54:58 Negative Negative Final Leukocyte esterase [Presence] in Urine by Automated test strip 01/29/2024 08:54:58 Negative Negative Final Performing Location [facility] [address] - [address] [place] [address]
--- OUTSIDE RECORDS SUMMARY | 2024-05-09 12:28 | External Medical Summary ---
Author Name Unknown Address Unknown Organization [facility] - [address] [place] [address] Laboratory Report Ordering Provider Test Date Status DANNIELLE OLVERA 01/29/2024 08:54:58 Final Observation Date Value Abnormality Reference (Units ) Status SYNC LEUKOCYTES IN BLOOD BY AUTOMATED COUNT 01/29/2024 08:54:58 5.56 4.00-10.80 (K/uL) Final Segs 01/29/2024 08:54:58 59.5 40.0-75.0 (%) Final Lymphs % 01/29/2024 08:54:58 26.4 18.0-42.0 (%) Final Monos 01/29/2024 08:54:58 6.5 1.0-11.0 (%) Final Eosinophils 01/29/2024 08:54:58 6.5 Above high normal 0.0-6.0 (%) Final Basos 01/29/2024 08:54:58 1.1 0.0-2.0 (%) Final Absolute Segs 01/29/2024 08:54:58 3.31 1.80-7.70 (K/uL) Final Lymphs, absolute 01/29/2024 08:54:58 1.47 1.00-4.80 (K/ul) Final Monos, Abs 01/29/2024 08:54:58 0.36 0.00-1.10 (K/uL) Final Eos, Abs 01/29/2024 08:54:58 0.36 0.00-0.70 (K/uL) Final Basos, Abs 01/29/2024 08:54:58 0.06 0.00-0.20 (K/uL) Final Performing Location [facility] 0 - [address] [place] [address]
--- OUTSIDE RECORDS SUMMARY | 2024-05-09 12:28 | External Medical Summary | Summary of Care ---
Author Name Unknown Organization [facility] Address [address] [place] [address] Phone [phone] Care Team Providers Care Golf Course Starter Name Role Phone Lina Can MD Primary [...] ZIRABEV, 10 MG Chandni Almonte MD [address] [place] [address] Anc Hem/Onc [address] [address] Referral ID Status Reason Start Date Expiration Date V isits Requested Visits Authorized [id number] Authorized 11/22/2023 11/21/2024 999 999 Encounter Details Date Type Department Care Team (Latest Contact Info) Description 12/19/2023 9:30 AM EDT Hem/Onc Treatment Hematology/Oncolog y Treatment, [address] [address] Encounter for antineoplastic chemotherapy*; Malignant neoplasm of sigmoid colon (HCC) Allergies Active Allergy Reactions Criticality Noted Date Comments Amoxicillin-Pot Clavulanate 07/13/19 GI upset Doxycycline 07/12/2022 GI upset Oxaliplatin Flushing High 07/27/2023 Shortness of breath Metoclopramide Hives 08/10/2022 documented as of this encounter (statuses as of 01/22/2024) Medications Medication Sig Dispensed Refills Start Date [...] as of this encounter (statuses as of 01/22/2024) Active Problems Problem Noted Date Diagnosed Date [...] as of this encounter (statuses as of 01/22/2024) Immunizations No known immunizationsdocumented as of this [...] Description 01/29/2024 10:00 AM EDT Laboratory Laboratory, [facility] [phone] Terrance Long [facility] [address] 01/30/2024 11:30 AM EDT Hem/Onc Treatment Hematology/Oncolog y Treatment, [place] [address] [place] [phone] Park, Chair 2 Hem Onc Scenery [address] [place] [address] 02/06/2024 9:08 AM EDT Hospital Encounter OR GL, Operating Room, [facility] - 4th Floor [address] [place] [phone] Timoteo Ayala, DO [address] [place] [address] 02/06/2024 9:08 AM EDT - 02/06/2024 9:54 AM EDT Surgery OR GLH, Operating Room, [facility] - 4th Floor 400 [place] [address] Timoteo Ayala, DO [address] [place] [address] COLONOSCOPY FLEXIBLE PROXIMAL DIAGNOSTIC 02/13/2024 8:30 AM EST Office Visit Hematology/Oncolog y [facility] [address] [place] [address] Alisia Birmingham CRNP 400 [place] [address] 04/11/2024 2:00 PM EST Office Visit Urology Ashlie Louise [address] [place] [address] [place] [address] Manas Marie MD 27 [place] [address] 07/19/2024 11:30 AM EDT Office Visit Cardiology, [facility] [address] [place] [address] Ciro Saini, [address] [place] [address] 02/03/2025 1:00 PM EDT Office Visit Gynecology/Obstetr ics [facility] [address] [place] [address] Nelli Farrell CRNP [address] [place] [address] Scheduled Procedures Name Priority Associated Diagnoses Date/Ti [...] this encounter Medical Devices Implanted Type Area Single Pointed Operator Device Identifier Shelf Expiration Date Model / Serial / Lot Power Port 8fr Sngl Lumen Plas - [id number] Implanted:Qty : 1 on 01/05/2023 by Jai Malcolm Jr., MD at OR [facility] Right: Chest CR BARD : PERIPHERAL VASCULAR [id number] 07/08/2024 [id number] / / [id number] documented as of this encounter Visit Diagnoses [...] at 1045, For 1 dose, Restricted per [facility] antiemetic guidelines Given 12/19/2023 10:21 AM EDT [...] Power of Attor johann? No Care Teams Golf Course Starter Relationship Specialty Start Date End Date Lina Can MD [address] [place] [address] [place] [address] PCP - General Family Medicine 08/06/22 documented as of this encounter
--- OUTSIDE RECORDS SUMMARY | 2024-05-09 12:28 | External Medical Summary | Summary of Care ---
Author Name Unknown Organization [facility] Address [address] [place] [address] Phone [phone] Care Team Providers Care Robotic Welding Operator Name Role Phone Lina Can MD Primary Care Prov ider Encounter Details Date Type Department Care Team (Late st Contact Info) Description 01/28/2024 Orders Only Hematology/Oncology, [facility] [address] [place] [address] Chandni Almonte MD [address] [place] [address] Allergies Active Allergy Reactions Criticality Noted Date Comments Amoxicillin-Pot Clavulanate 07/13/19 23 GI upset Doxycycline 07/12/2022 GI upset Oxaliplatin Flushing High 07/27/2023 Shortness of breath Metoclopramide Hives 08/10/2022 documented as of this encounter (statuses as of 01/28/2024) Medications Medication Sig Dispensed Refills Start Date [...] as of this encounter (statuses as of 01/28/2024) Active Problems Problem Noted Date Diagnosed Date [...] as of this encounter (statuses as of 01/28/2024) Immunizations No known immunizationsdocumented as of this [...] Description 01/29/2024 10:00 AM EDT Laboratory [facility] [address] [place] [phone] Terrance Long [address] [place] [address] 01/30/2024 11:30 AM EDT Hem/Onc Treatment Hematology/Oncolog y Treatment, [place] [address] [place] [phone] [place], Chair 2 Hem Onc Scenery [address] [place] [address] 02/06/2024 9:08 AM EDT Hospital Encounter OR GL, Operating Room, [facility] - 4th Floor 400 [facility] [place] [phone] Timoteo Ayala, DO [address] [place] [address] 02/06/2024 9:08 AM EDT - 02/06/2024 9:54 AM EDT Surgery OR [facility], Operating Room, [facility] - 4th Floor [address] [place] [phone] Timoteo Ayala, DO [address] [place] [address] COLONOSCOPY FLEXIBLE PROXIMAL DIAGNOSTIC 02/13/2024 8:30 AM EST Office Visit Hematology/Oncolog y [facility] [address] [place] [address] Alisia Birmingham, SANDRA 400 [place] [address] 04/11/2024 2:00 PM EST Office Visit Urology Ashlie Louise [address] [place] [address] [place] [address] Manas Marie MD 27 [place] [address] 07/19/2024 11:30 AM EDT Office Visit Cardiology, [facility] [address] [place] [address] Ciro Saini, DO [address] [place] [address] 02/03/2025 1:00 PM EDT Office Visit Gynecology/Obstetr ics [facility] [address] [place] [address] Bud NelliSANDRA Jenkins [address] [place] [address] Scheduled Procedures Name Priority Associated Diagnoses Date/Ti [...] this encounter Medical Devices Implanted Type Area Regional Engagement Consultant Device Identifier Shelf Expiration Date Model / Serial / Lot Power Port 8fr Sngl Lumen Plas - [id number] Implanted:Qty : 1 on 01/05/2023 by Jai Malcolm Jr., MD at OR [facility] Right: Chest CR BARD : PERIPHERAL VASCULAR [id number] 07/08/2024 [id number] / / [id number] documented as of this encounter Advance Directives [...] Power of Attor johann? No Care Teams Robotic Welding Operator Relationship Specialty Start Date End Date Lina Can MD [address] [place] [address] [place] [address] PCP - General Family Medicine 08/06/22 documented as of this encounter
--- OUTSIDE RECORDS SUMMARY | 2024-05-09 12:28 | External Medical Summary | Summary of Care ---
Author Name Unknown Organization [facility] Address [address] [place] [address] Phone [phone] Care Team Providers Care Budget Record Clerk Name Role Phone Lina Can MD Primary Care Prov ider Reason for Visit * Reason Comments Chemotherapy C1D1 FOLFIRI + Zirab ev * Episode Based Medications (Routine) - Authorized Specialty Diagnoses / Procedures Referred By Contac t Referred To Contact Diagnoses Encounter for antineoplastic chemotherapy Malignant neoplasm of sigmoid colon (HCC) Procedures [place] LEUCOVORIN CALCIUM INJECTION [place] PALONOSETRON HCL [place] FLUOROURACIL INJECTION [place] IRINOTECAN INJECTION [place] INJ., ZIRABEV, 10 MG Chandni Almonte MD [address] [place] [address] Anc Hem/Onc [address] [address] Referral ID Status Reason Start Date Expiration Date V isits Requested Visits Authorized [id number] Authorized 11/22/2023 11/21/2024 999 999 Encounter Details Date Type Department Care Team (Latest Contact Info) Description 12/19/2023 9:30 AM EDT Hem/Onc Treatment Hematology/Oncolog y Treatment, [address] [address] Encounter for antineoplastic chemotherapy*; Malignant [...] Description 01/29/2024 10:00 AM EDT Laboratory Laboratory, [facility] [phone] Terr[facility] Long [facility] [address] 01/30/2024 11:30 AM EDT Hem/Onc Treatment Hematology/Oncolog y Treatment, [place] [address] [place] [phone] Park, Chair 2 Hem Onc Scenery [address] [place] [address] 02/06/2024 9:08 AM EDT Hospital Encounter OR GL, Operating Room, [facility] - 4th Floor [address] [place] [phone] Timoteo Ayala, DO [address] [place] [address] 02/06/2024 9:08 AM EDT - 02/06/2024 9:54 AM EDT Surgery OR GLH, Operating Room, [facility] - 4th Floor 400 [place] [address] Timoteo Ayala, DO [address] [place] [address] COLONOSCOPY FLEXIBLE PROXIMAL DIAGNOSTIC 02/13/2024 8:30 AM EST Office Visit Hematology/Oncolog y [facility] [address] [place] [address] Alisia Birmingham CRNP 400 [place] [address] 04/11/2024 2:00 PM EST Office Visit Urology [place]lie Louise [address] [place] [address] [place] [address] Manas Marie MD 27 [place] [address] 07/19/2024 11:30 AM EDT Office Visit Cardiology, [facility] [address] [place] [address] Ciro Saini, [address] [place] [address] 02/03/2025 1:00 PM EDT Office Visit Gynecology/Obstetr ics [facility] [address] [place] [address] Nelli Farrell CRNP [address] [place] [address] Scheduled Procedures Name Priority Associated Diagnoses Date/Ti [...] this encounter Medical Devices Implanted Type Area Foundation Stage Teacher Device Identifier Shelf Expiration Date Model / Serial / Lot Power Port 8fr Sngl Lumen Plas - [id number] Implanted:Qty : 1 on 01/05/2023 by Jai Malcolm Jr., MD at OR [facility] Right: Chest CR BARD : PERIPHERAL VASCULAR [id number] 07/08/2024 [id number] / / [id number] documented as of this encounter Visit Diagnoses [...] at 1045, For 1 dose, Restricted per [facility] antiemetic guidelines Given 12/19/2023 10:21 [...] Power of Attor johann? No Care Teams Budget Record Clerk Relationship Specialty Start Date End Date Lina Can MD [address] [place] [address] [place] [address] PCP - General Family Medicine 08/06/22 documented as of this encounter
--- OUTSIDE RECORDS SUMMARY | 2024-05-09 12:28 | External Medical Summary ---
Author Name Unknown Address Unknown Organization [facility] [address] [facility] [facility] [address] Laboratory Report Ordering Provider Test Date Status OLVERATCDANNIELLE 01/29/2024 08:54:58 Final Observation Date Value Abnormality Reference (Units ) Status RBC, Urine 01/29/2024 08:54:58 0-2 0-2 (/HPF) Final WBC, Urine 01/29/2024 08:54:58 0-2 0-2 (/HPF) Final Bacteria [#/area] in Urine sediment by Microscopy high power field 01/29/2024 08:54:58 0-25 0-25 (/HPF) Final Performing Location [facility] [address] [facility] [address]
--- OUTSIDE RECORDS SUMMARY | 2024-05-09 12:28 | External Medical Summary ---
Author Name Unknown Address Unknown Organization [facility] 57-10 - [address] [place] [address] Laboratory Report Ordering Provider Test Date Status DANNIELLE OLVERA 01/29/2024 08:54:58 Final Observation Date Value Abnormality Reference (Units ) Status WBC, Total 01/29/2024 08:54:58 5.56 4.00-10.8 0 (K/uL) Final RBC 01/29/2024 08:54:58 3.55 3.85-5.15 (M/uL) Final Hemoglobin 01/29/2024 08:54:58 11.3 Below low normal 12 .0-15.3 (g/dL) Final HCT 01/29/2024 08:54:58 34.2 Below low normal 36. 0-45.2 (%) Final MCV 01/29/2024 08:54:58 96.3 81.5-97.5 (fL) Final MCH 01/29/2024 08:54:58 31.8 27.0-34.0 (pg) Final MCHC 01/29/2024 08:54:58 33.0 32.0-36.0 (g/dL) Final RDW 01/29/2024 08:54:58 19.7 11.5-15.5 (%) Final Platelets 01/29/2024 08:54:58 100 Below low normal 140 -400 (K/uL) Final MPV 01/29/2024 08:54:58 10.2 6.6-11.1 ( fL) Final Performing Location [facility]-1 0 - [address] Breanne [place] [address]
--- OUTSIDE RECORDS SUMMARY | 2024-05-09 12:28 | External Medical Summary | Summary of Care ---
Author Name Unknown Organization [facility] Address [address] [place] [address] Phone [phone] Care Team Providers Care Career And Technology Education Teacher Name Role Phone Lina Can MD Primary [...] ZIRABEV, 10 MG Chandni Almonte MD [address] [place] [address] Anc Hem/Onc [address] [address] Referral ID Status Reason Start Date Expiration Date V isits Requested Visits Authorized [id number] Authorized 11/22/2023 11/21/2024 999 999 Encounter Details Date Type Department Care Team (Latest Contact Info) Description 12/19/2023 9:30 AM EDT Hem/Onc Treatment Hematology/Oncolog y Treatment, [address] [address] Encounter for antineoplastic chemotherapy*; Malignant [...] Description 01/29/2024 10:00 AM EDT Laboratory Laboratory, [facility] 132 [facility] [address] Terrance Long [facility] 132 [facility] [address] 01/30/2024 11:30 AM EDT Hem/Onc Treatment Hematology/Oncolog y Treatment, [place] [address] [place] [phone] Park, Chair 2 Hem Onc Scenery [address] [place] [address] 02/06/2024 9:08 AM EDT Hospital Encounter OR GL, Operating Room, [facility] - 4th Floor 400 [place] [phone] Timoteo Ayala, DO [address] [place] [address] 02/06/2024 9:08 AM EDT - 02/06/2024 9:54 AM EDT Surgery OR GLH, Operating Room, [facility] - 4th Floor 400 [facility] [place] [address] Timoteo Ayala, DO [address] [place] [address] COLONOSCOPY FLEXIBLE PROXIMAL DIAGNOSTIC 02/13/2024 8:30 AM EST Office Visit Hematology/Oncolog y [facility] [address] [place] [address] Alisia Birmingham CRNP 400 [place] [address] 04/11/2024 2:00 PM EST Office Visit Urology Ashlie Louise [address] [place] [address] [place] [address] Manas Marie MD 27 [place] [address] 07/19/2024 11:30 AM EDT Office Visit Cardiology, [facility] [address] [place] [address] Ciro Saini, [address] [place] [address] 02/03/2025 1:00 PM EDT Office Visit Gynecology/Obstetr ics [facility] [address] [place] [address] Nelli Farrell CRNP [address] [place] [address] Scheduled Procedures Name Priority Associated Diagnoses Date/Ti [...] this encounter Medical Devices Implanted Type Area Bird Trapper Device Identifier Shelf Expiration Date Model / Serial / Lot Power Port 8fr Sngl Lumen Plas - [id number] Implanted:Qty : 1 on 01/05/2023 by Jai Malcolm Jr., MD at OR [facility] Right: Chest CR BARD : PERIPHERAL VASCULAR [id number] 07/08/2024 [id number] / / [id number] documented as of this encounter Visit Diagnoses [...] at 1045, For 1 dose, Restricted per [facility] antiemetic guidelines Given 12/19/2023 10:21 [...] Power of Attor johann? No Care Teams Career And Technology Education Teacher Relationship Specialty Start Date End Date Lina Can MD [address] [place] [address] [place] [address] PCP - General Family Medicine 08/06/22 documented as of this encounter
--- OUTSIDE RECORDS SUMMARY | 2024-05-09 12:29 | External Medical Summary | Summary of Care ---
Author Name Unknown Organization [facility] Address [address] [place] [address] Phone [phone] Care Team Providers Care Gasket Supervisor Name Role Phone Lina Can MD [...] INJ., ZIRABEV, 10 MG Chandni Almonte MD [address] [place] [address] Anc Hem/Onc [address] [address] Referral ID Status Reason Start Date Expiration Date V isits Requested Visits Authorized [id number] Authorized 11/22/2023 11/21/2024 999 999 Encounter Details Date Type Department Care Team (Latest Contact Info) Description 12/19/2023 9:30 AM EDT Hem/Onc Treatment Hematology/Oncolog y Treatment, [address] [address] Encounter for antineoplastic chemotherapy*; Malignant [...] Description 01/29/2024 10:00 AM EDT Laboratory Laboratory, [facility] [address] Terr[place] Long [facility] 132 [facility] [address] 01/30/2024 11:30 AM EDT Hem/Onc Treatment Hematology/Oncolog y Treatment, [place] [address] [place] [phone] Park, Chair 2 Hem Onc Scenery [address] [place] [address] 02/06/2024 9:08 AM EDT Hospital Encounter OR GL, Operating Room, [facility] - 4th Floor [address] [place] [phone] Timoteo Ayala, DO [address] [place] [address] 02/06/2024 9:08 AM EDT - 02/06/2024 9:54 AM EDT Surgery OR GLH, Operating Room, [facility] - 4th Floor 400 [place] [address] Timoteo Ayala, DO [address] [place] [address] COLONOSCOPY FLEXIBLE PROXIMAL DIAGNOSTIC 02/13/2024 8:30 AM EST Office Visit Hematology/Oncolog y [facility] [address] [place] [address] Alisia Birmingham CRNP 400 [place] [address] 04/11/2024 2:00 PM EST Office Visit Urology [place]lie Louise [address] [place] [address] [place] [address] Manas Marie MD 27 [place] [address] 07/19/2024 11:30 AM EDT Office Visit Cardiology, [facility] [address] [place] [address] Ciro Saini, [address] [place] [address] 02/03/2025 1:00 PM EDT Office Visit Gynecology/Obstetr ics [facility] [address] [place] [address] Nelli Farrell CRNP [address] [place] [address] Scheduled Procedures Name Priority Associated Diagnoses Date/Ti [...] this encounter Medical Devices Implanted Type Area Sem Manager Device Identifier Shelf Expiration Date Model / Serial / Lot Power Port 8fr Sngl Lumen Plas - [id number] Implanted:Qty : 1 on 01/05/2023 by Jai Malcolm Jr., MD at OR [facility] Right: Chest CR BARD : PERIPHERAL VASCULAR [id number] 07/08/2024 [id number] / / [id number] documented as of this encounter Visit Diagnoses [...] at 1045, For 1 dose, Restricted per [facility] antiemetic guidelines Given 12/19/2023 10:21 AM [...] Power of Attor johann? No Care Teams Gasket Supervisor Relationship Specialty Start Date End Date Lina Can MD [address] [place] [address] [place] [address] PCP - General Family Medicine 08/06/22 documented as of this encounter
--- OUTSIDE RECORDS SUMMARY | 2024-05-09 12:29 | External Medical Summary | Summary of Care ---
Author Name Unknown Organization [facility] Address [address] [place] [address] Phone [phone] Care Team Providers Care City Planner Name Role Phone Lina Can MD Primary Care Prov ider Reason for Visit * Reason Comments Chemotherapy C1D1 FOLFIRI + Zirab ev * Episode Based Medications (Routine) - Authorized Specialty Diagnoses / Procedures Referred By Contac t Referred To Contact Diagnoses Encounter for antineoplastic chemotherapy Malignant neoplasm of sigmoid colon (HCC) Procedures [place] LEUCOVORIN CALCIUM INJECTION UT PALONOSETRON HCL UT FLUOROURACIL INJECTION [place] IRINOTECAN INJECTION UT INJ., ZIRABEV, 10 MG Chandni Almonte MD [address] [place] [address] Anc Hem/Onc [address] [address] Referral ID Status Reason Start Date Expiration Date V isits Requested Visits Authorized [id number] Authorized 11/22/2023 11/21/2024 999 999 Encounter Details Date Type Department Care Team (Latest Contact Info) Description 12/19/2023 9:30 AM EDT Hem/Onc Treatment Hematology/Oncolog y Treatment, [address] [address] Encounter for antineoplastic chemotherapy*; Malignant [...] Description 01/29/2024 10:00 AM EDT Laboratory Laboratory, [facility] 132 [facility] [address] [address] [facility] 132 [facility] [address] 01/30/2024 11:30 AM EDT Hem/Onc Treatment Hematology/Oncolog y Treatment, [place] [address] [place] [phone] Park, Chair 2 Hem Onc Scenery [address] [place] [address] 02/06/2024 9:08 AM EDT Hospital Encounter OR GL, Operating Room, [facility] - 4th Floor [address] [place] [phone] Timoteo Ayala, DO [address] [place] [address] 02/06/2024 9:08 AM EDT - 02/06/2024 9:54 AM EDT Surgery OR GLH, Operating Room, [facility] - 4th Floor 400 [facility] [place] [address] Timoteo Ayala, DO [address] [place] [address] COLONOSCOPY FLEXIBLE PROXIMAL DIAGNOSTIC 02/13/2024 8:30 AM EST Office Visit Hematology/Oncolog y [facility] [address] [place] [address] Alisia Birmingham CRNP 400 [place] [address] 04/11/2024 2:00 PM EST Office Visit Urology [place]lie Louise [address] [place] [address] [place] [address] Manas Marie MD 27 [place] [address] 07/19/2024 11:30 AM EDT Office Visit Cardiology, [facility] [address] [place] [address] Ciro Saini, [address] [place] [address] 02/03/2025 1:00 PM EDT Office Visit Gynecology/Obstetr ics [facility] [address] [place] [address] Nelli Farrell CRNP [address] [place] [address] Scheduled Procedures Name Priority Associated Diagnoses Date/Ti [...] this encounter Medical Devices Implanted Type Area Teamsite Developer Device Identifier Shelf Expiration Date Model / Serial / Lot Power Port 8fr Sngl Lumen Plas - [id number] Implanted:Qty : 1 on 01/05/2023 by Jai Malcolm Jr., MD at OR [facility] Right: Chest CR BARD : PERIPHERAL VASCULAR [id number] 07/08/2024 [id number] / / [id number] documented as of this encounter Visit Diagnoses [...] at 1045, For 1 dose, Restricted per [facility] antiemetic guidelines Given 12/19/2023 10:21 AM [...] Power of Attor johann? No Care Teams City Planner Relationship Specialty Start Date End Date Lina Can MD [address] [place] [address] [place]el [address] PCP - General Family Medicine 08/06/22 documented as of this encounter
--- OUTSIDE RECORDS SUMMARY | 2024-05-09 12:29 | External Medical Summary | Summary of Care ---
Author Name Unknown Organization [facility] Address [address] [place] [address] Phone [phone] Care Team Providers Care Public Policy Coordinator Name Role Phone Lina Can MD [...] INJ., ZIRABEV, 10 MG Chandni Almonte MD [address] [place] [address] Anc Hem/Onc [address] [address] Referral ID Status Reason Start Date Expiration Date V isits Requested Visits Authorized [id number] Authorized 11/22/2023 11/21/2024 999 999 Encounter Details Date Type Department Care Team (Latest Contact Info) Description 12/19/2023 9:30 AM EDT Hem/Onc Treatment Hematology/Oncolog y Treatment, [address] [address] Encounter for antineoplastic chemotherapy*; Malignant [...] Description 01/29/2024 10:00 AM EDT Laboratory Laboratory, [facility] 132 [facility] [phone] Terr[facility] Long [facility] 132 [facility] [address] 01/30/2024 11:30 AM EDT Hem/Onc Treatment Hematology/Oncolog y Treatment, [place] [address] [place] [phone] Park, Chair 2 Hem Onc Scenery [address] [place] [address] 02/06/2024 9:08 AM EDT Hospital Encounter OR GL, Operating Room, [facility] - 4th Floor 400 [place] [phone] Timoteo Ayala, DO [address] [place] [address] 02/06/2024 9:08 AM EDT - 02/06/2024 9:54 AM EDT Surgery OR GLH, Operating Room, [facility] - 4th Floor 400 [place] [address] Timoteo Ayala, DO [address] [place] [address] COLONOSCOPY FLEXIBLE PROXIMAL DIAGNOSTIC 02/13/2024 8:30 AM EST Office Visit Hematology/Oncolog y [facility] [address] [place] [address] Alisia Birmingham CRNP 400 [place] [address] 04/11/2024 2:00 PM EST Office Visit Urology [place]lie Louise [address] [place] [address] [place] [address] Manas Marie MD 27 [place] [address] 07/19/2024 11:30 AM EDT Office Visit Cardiology, [facility] [address] [place] [address] Ciro Saini, [address] [place] [address] 02/03/2025 1:00 PM EDT Office Visit Gynecology/Obstetr ics [facility] [address] [place] [address] Nelli Farrell CRNP [address] [place] [address] Scheduled Procedures Name Priority Associated Diagnoses Date/Ti [...] encounter Medical Devices Implanted Type Area Manager Heart Failure Device Identifier Shelf Expiration Date Model / Serial / Lot Power Port 8fr Sngl Lumen Plas - [id number] Implanted:Qty : 1 on 01/05/2023 by Jai Malcolm Jr., MD at OR [facility] Right: Chest CR BARD : PERIPHERAL VASCULAR [id number] 07/08/2024 [id number] / / [id number] documented as of this encounter Visit Diagnoses [...] at 1045, For 1 dose, Restricted per [facility] antiemetic guidelines Given 12/19/2023 10:21 AM EDT [...] Power of Attor johann? No Care Teams Public Policy Coordinator Relationship Specialty Start Date End Date Lina Can MD [address] [place] [address] [place] Patel [address] PCP - General Family Medicine 08/06/22 documented as of this encounter
--- OUTSIDE RECORDS SUMMARY | 2024-05-09 12:29 | External Medical Summary | Summary of Care ---
Author Name Unknown Organization [facility] Address [address] [place] [address] Phone [phone] Care Team Providers Care Beer Still Runner Compounder Name Role Phone Lina Can MD Primary [...] ZIRABEV, 10 MG Chandni Almonte MD 200 [place] [address] Anc Hem/Onc [address] [address] Referral ID Status Reason Start Date Expiration Date V isits Requested Visits Authorized [id number] Authorized 11/22/2023 11/21/2024 999 999 Encounter Details Date Type Department Care Team (Latest Contact Info) Description 01/18/2024 1:30 PM EDT Immunization/ Injection Hematology/Oncology Treatment, [address] [address] Chair Nasreen [address] [place] [address] Encounter for antineoplastic chemotherapy*; Malignant neoplasm of sigmoid colon (HCC) Allergies Active Allergy Reactions Criticality Noted Date Comments Amoxicillin-Pot Clavulanate 07/13/19 GI upset Doxycycline 07/12/2022 GI upset Oxaliplatin Flushing High 07/27/2023 Shortness of breath Metoclopramide Hives 08/10/2022 documented as of this encounter (statuses as of 01/18/2024) Medications Medication Sig Dispensed Refills Start Date [...] as of this encounter (statuses as of 01/18/2024) Active Problems Problem Noted Date Diagnosed Date [...] as of this encounter (statuses as of 01/18/2024) Immunizations No known immunizationsdocumented as of this [...] as of this encounter Nursing Notes * Sanjana Browne, RN - 01/18/2024 1:41 PM EDT Chair [...] Care Team (Late st Contact Info) Description 01/22/2024 11:00 AM EDT Office Visit Gynecology/Oncolog y, [place] [address] [place] [address] Jocelyn Vera PA-C [address] [place] [address] 01/29/2024 10:00 AM EDT Laboratory [facility], [facility] 132 [place] [phone] Terrance Long [facility] 132 [place] [address] 01/30/2024 11:30 AM EDT Hem/Onc Treatment Hematology/Oncolog y Treatment, [place] [address] [place] [address] Nasreen, Chair 2 Hem Onc Scenery [address] [place] [address] 02/06/2024 9:08 AM EDT Hospital Encounter OR [facility], Operating Room, [facility] - 4th Floor 400 [facility] [place] [address] Timoteo Ayala DO [address] [place] [address] 02/06/2024 9:08 AM EDT - 02/06/2024 9:54 AM EDT Surgery OR GLH, Operating Room, [facility] - 4th Floor [address] [place] [phone] Timoteo Ayala, DO [address] [place] [address] COLONOSCOPY FLEXIBLE PROXIMAL DIAGNOSTIC 02/13/2024 8:30 AM EST Office Visit Hematology/Oncolog y [facility] [address] [place] [address] Alisia [place] CRNP 400 [facility] [place] [address] 04/11/2024 2:00 PM EST Office Visit Urology [place]lie Louise [address] [place] [address] [place] [address] Manas Marie MD 27 [place] [address] 07/19/2024 11:30 AM EDT Office Visit Cardiology, [facility] [address] [place] [address] Ciro Saini, DO [address] [place] [address] Scheduled Procedures Name Priority Associated Diagnoses Date/Ti [...] encounter Medical Devices Implanted Type Area Industrial Economics Teacher Device Identifier Shelf Expiration Date Model / Serial / Lot Power Port 8fr Sngl Lumen Plas - [id number] Implanted:Qty : 1 on 01/05/2023 by Jai Malcolm Jr., MD at OR [facility] Right: Chest CR BARD : PERIPHERAL VASCULAR [id number] 07/08/2024 [id number] / / [id number] documented as of this encounter Visit Diagnoses [...] Starting on Shi 01/18/24 at 1326, Until Mon01/19/24 at 1325, For 24 hours, Do not flush if lock, PICC, or central line not in place; IV infusing or unable to flush. Given 01/18/2024 1:31 PM EDT 500 Units sodium chloride 0.9 % flush central line 10 mL 10 mL, IV Push, PRN Other, IV Flush, Starting on Shi 01/18/24 at 1326, Until 01/19/24 at 1325, For 24 hours, Do not flush if lock, PICC, or central line not in place; IV infusing or unable to flush. Given 01/18/2024 1:31 PM EDT 10 mL [...] Power of Attor johann? No Care Teams Beer Still Runner Compounder Relationship Specialty Start Date End Date Lina Can MD [address] [place] [address] [place] Patel [address] PCP - General Family Medicine 08/06/22 documented as of this encounter
--- OUTSIDE RECORDS SUMMARY | 2024-05-09 12:29 | External Medical Summary | Summary of Care ---
Author Name Unknown Organization [facility] Address [address] [place] [address] Phone [phone] Care Team Providers Care Printing Press Machinist Name Role Phone Lina Can MD Primary [...] ZIRABEV, 10 MG Chandni Almonte MD [address] [facility] [place] [address] Anc Hem/Onc [address] [address] Referral ID Status Reason Start Date Expiration Date V isits Requested Visits Authorized [id number] Authorized 11/22/2023 11/21/2024 999 [id number] Encounter Details Date Type Department Care Team (Latest Contact Info) Description 01/16/2024 11:30 AM EDT Hem/Onc Treatment Hematology/Oncolog y Treatment, [address] [address] Chair Nasreen 8 Hem Onc [address] [place] [address] Encounter for antineoplastic chemotherapy*; Malignant neoplasm of sigmoid colon (HCC) Allergies Active Allergy Reactions Criticality Noted Date Comments Amoxicillin-Pot Clavulanate 07/13/19 GI upset Doxycycline 07/12/2022 GI upset Oxaliplatin Flushing High 07/27/2023 Shortness of breath Metoclopramide Hives 08/10/2022 documented as of this encounter (statuses as of 01/16/2024) Medications Medication Sig Dispensed Refills Start Date [...] infusion 4000 mg IV CONTINUOUS 01/15/2024 01/17/2024 Active documented as of this encounter (statuses as of 01/16/2024) Active Problems Problem Noted Date Diagnosed Date [...] as of this encounter (statuses as of 01/16/2024) Immunizations No known immunizationsdocumented as of this [...] of this encounter Nursing Notes * Sanjana Browne RN - 01/16/2024 3:48 PM EDT Patient tolerated treatment without issue. Goals: Patient will remain free from injury [...] Care Team (Late st Contact Info) Description 01/18/2024 1:30 PM EDT Immunization/Injec tion Hematology/Oncolog y Treatment, [place] [address] [place] [phone] Nasreen, 8 Hem Onc Scenery [address] [place] [address] 01/22/2024 11:00 AM EDT Office Visit Gynecology/Oncolog y, [place] [address] [place] [address] Jocelyn Vera PA-C [address] [place] [address] 01/29/2024 10:00 AM EDT Laboratory Laboratory, [facility] [address] [facility] [place] [phone] [facility] [address] [place] [address] 01/30/2024 11:30 AM EDT Hem/Onc Treatment Hematology/Oncolog y Treatment, [place] [address] [place] [phone] Nasreen, Chair 2 Hem Onc [facility] [address] [facility] [place] [address] 02/06/2024 9:08 AM EDT Hospital Encounter OR GL, Operating Room, [facility] - 4th Floor [address] [place] [address] Timoteo Ayala DO [address] [place] [address] 02/06/2024 9:08 AM EDT - 02/06/2024 9:54 AM EDT Surgery OR [facility], Operating Room, [facility] - 4th Floor [address] [place] [phone] Timoteo Ayala DO [address] [facility] [place] [address] COLONOSCOPY FLEXIBLE PROXIMAL DIAGNOSTIC 02/13/2024 8:30 AM EST Office Visit [facility] [place] [address] [place] [phone] Alisia Birmingham CRNP 400 [facility] [place] [address] 04/11/2024 2:00 PM EST Office Visit Urology Ashlie Louise [address] [place] [phone] Manas Marie MD [address] [place] [address] Scheduled Procedures Name Priority Associated Diagnoses Date/Ti [...] this encounter Medical Devices Implanted Type Area Chemistry Technical Officer Device Identifier Shelf Expiration Date Model / Serial / Lot Power Port 8fr Sngl Lumen Plas - [id number] Implanted:Qty : 1 on 01/05/2023 by Jai Malcolm Jr., MD at OR [facility] Right: Chest CR BARD : PERIPHERAL VASCULAR [id number] 07/08/2024 [id number] / / [id number] documented as of this encounter Visit Diagnoses [...] ONCE PRN Other, Hypersensitivity Reaction, Starting on Mon01/16/24 at 1205, Until Mon01/17/24 at 1204, For 24 hours EPINEPHrine 1 MG/ML inj 0.3 mg 0.3 mg, Intramuscular, ONCE PRN Other, Hypersensitivity Reaction or Anaphylaxis, Starting on Mon01/16/24 at 1205, Until Mon01/17/24 at 1204, For 24 hours hEParin 100 UNIT/ML Lock Flush inj 500 Units 500 Units (5 mL), IV Lock, PRN Other, IV Flush, Starting on Mon01/16/24 at 1205, Until Mon01/17/24 at 1204, For 24 hours, Do not flush if lock, PICC, or central line not in place; IV infusing or unable to flush. Given 01/16/2024 3:19 PM EDT 500 Units Hydrocortisone Sod Suc (PF) (Solu-Cortef) inj 100 mg 100 mg, IV Push, ONCE PRN Other, Hypersensitivity Reaction, Starting on Mon01/16/24 at 1205, Until Mon01/17/24 at 1204, For 24 hours LORAzepam (Ativan) tab 0.5 mg 0.5 mg, Oral, ONCE PRN Anxiety, Nausea, Starting on Mon01/16/24 at 0830, Until Discontinued NSS infusion Intravenous, at 50 mL/hr, PRN, Starting on Mon01/16/24 at 0830, Until Discontinued, Maintenance line Start Infusion 01/16/2024 12:32 PM EDT 50 mL/hr oxygen GAS Inhalation, OXYGEN, First dose on Mon01/16/24 at 1600, Until Discontinued, Device/Managed by: Low [...] Flush, Starting on Mon01/16/24 at 1205, Until Mon01/17/24 at 1204, For 24 hours, Do not flush if lock, PICC, or central line not in place; IV infusing or unable to flush. Given 01/16/2024 3:19 PM EDT 10 mL Inactive Administered Medications - up to 3 most recent administrations Medication Order MAR Action Action Date Dose Rate Site Atropine sulfate inj 0.4 mg 0.4 mg, IV Push, ONCE, On Mon01/16/24 at 1245, For 1 dose, Administer prior to irinotecan. Given 01/16/2024 1:30 PM EDT 0.4 mg bevaCIZumab-bvzr (Zirabev) 300 mg in NSS 100 mL infusion 300 mg (rounded from 291.5 mg = 5 mg/kg 58.3 kg Treatment plan Recorded weight), IV Piggyback, ONCE, 1 dose, On Mon01/16/24 at 1245, Administer over 30 Minutes Start Infusion 01/16/2024 12:51 PM EDT 300 mg 210 mL/hr dexAMETHasone (Decadron) tab 12 mg 12 mg, Oral, ONCE, On Mon01/16/24 at 1245, For 1 dose Given 01/16/2024 12:32 PM EDT 12 mg Fluorouracil (5-Fu) 4,000 mg for Home Infusion 4,000 mg (rounded from 3,792 mg = 2,400 mg/m2 1.58 m2 Treatment Plan BSA from Recorded weight), Intravenous, Administer over 46 Hours, Home Infusion Pharmacy to specify base solution and volume., ONCE, 1 dose, On Mon01/16/24 at 1115 Start Infusion 01/16/2024 3:29 PM EDT 4,000 mg 3 mL/hr Fluorouracil (5-Fu) inj 650 mg 650 mg (rounded from 632 mg = 400 mg/m2 1.58 m2 Treatment Plan BSA from Recorded weight), IV Push, ONCE, 1 dose, On Mon01/16/24 at 1245 Given 01/16/2024 3:23 PM EDT 650 mg irinotecan HCl (Camptosar) 280 mg in D5W 500 mL infusion 280 mg (rounded from 284.4 mg = 180 mg/m2 1.58 m2 Treatment Plan BSA from Recorded weight), IV Piggyback, ONCE, 1 dose, On Mon01/16/24 at 1245, Administer over 90 Minutes, PROTECT FROM LIGHT Start Infusion 01/16/2024 1:41 PM EDT 280 mg 349.33 mL/hr leucovorin calcium 650 mg in D5W 250 mL INFUSION 650 mg (rounded from 632 mg = 400 mg/m2 1.58 m2 Treatment Plan BSA from Recorded weight), IV Piggyback, ONCE, 1 dose, On Mon01/16/24 at 1245, Administer over 90 Minutes, Before 5-FU Start Infusion 01/16/2024 1:38 PM EDT 650 mg 170 mL/hr Palonosetron (Aloxi) inj SOLN 0.25 mg 0.25 mg, IV Push, ONCE, On Mon01/16/24 at 1245, For 1 dose, Restricted per [employer] [facility] antiemetic guidelines Given 01/16/2024 12:32 PM EDT 0.25 mg documented in this encounter [...] Power of Attor johann? No Care Teams Printing Press Machinist Relationship Specialty Start Date End Date Lina Can MD [address] [place] [address] [place] Patel [phone] PCP - General Family Medicine 08/06/22 documented as of this encounter
--- OUTSIDE RECORDS SUMMARY | 2024-05-09 12:29 | External Medical Summary | Summary of Care ---
Author Name Unknown Organization [facility] Address [address] [place] [address] Phone [phone] Care Team Providers Care Pedicurist Name Role Phone Lina Can MD Primary Care Prov ider Reason for Visit * Reason Onset Date Comments Information 01/22/2024 Encounter Details Date Type Department Care Team (Late st Contact Info) Description 01/22/2024 Telephone Hematology/Oncology Treatment, [place] [address] [place] [address] Chandni Almonte MD [address] [place] [address] Information Allergies Active Allergy Reactions Criticality Noted [...] Telephone Encounter - Tereza Gray RN - 01/22/2024 12:00 PM EDT Called patient, confirmed that she self administered udenyca 01/19/24. [place] updated. documented in this encounter Plan of Treatment Upcoming Encounters Date Type Department Care Team (Late st Contact Info) Description 01/29/2024 10:00 AM EDT Laboratory Laboratory, [facility] 132 [facility] [place] [phone] Long, Lab [address] [place] [address] 01/30/2024 11:30 AM EDT Hem/Onc Treatment Hematology/Oncolog y [facility] [address] [place] [phone] Nasreen, Chair 2 Hem Onc Scenery [address] [place] [address] 02/06/2024 9:08 AM EDT Hospital Encounter OR [facility], Operating Room, [facility] - 4th Floor [address] [place] [phone] Timoteo Ayala, DO [address] [facility] [place] [address] 02/06/2024 9:08 AM EDT - 02/06/2024 9:54 AM EDT Surgery OR [facility], Operating Room, [facility] - 4th Floor [address] [place] [phone] Timoteo Ayala, DO [address] [facility] [place] [address] COLONOSCOPY FLEXIBLE PROXIMAL DIAGNOSTIC 02/13/2024 8:30 AM EST Office Visit Hematology/Oncolog y [facility] [place] [address] [place] [address] Alisia Birmingham CRNP [address] [place] [address] 04/11/2024 2:00 PM EST Office Visit Urology Ashlie Louise [address] [place] [address] Manas Marie MD 27 [place] [address] 07/19/2024 11:30 AM EDT Office Visit Cardiology, [facility] [address] [place] [address] Ciro Saini, [address] [place] [address] 02/03/2025 1:00 PM EDT Office Visit Gynecology/Obstetr ics [facility] [address] [place] [address] Nelli Farrell CRNP [address] [place] [address] Scheduled Procedures Name Priority Associated Diagnoses Date/Ti [...] this encounter Medical Devices Implanted Type Area Time Lock Expert Device Identifier Shelf Expiration Date Model / Serial / Lot Power Port 8fr Sngl Lumen Plas - [id number] Implanted:Qty : 1 on 01/05/2023 by Jai Malcolm Jr., MD at [facility] Right: Chest CR BARD : PERIPHERAL VASCULAR [id number] 07/08/2024 [id number] / / [id number] documented as of this encounter Advance Directives [...] Power of Attor johann? No Care Teams Pedicurist Relationship Specialty Start Date End Date Lina Can MD [address] [place] [address] [place] [phone] PCP - General Family Medicine 08/06/22 documented as of this encounter
--- OUTSIDE RECORDS SUMMARY | 2024-05-09 12:29 | External Medical Summary | Summary of Care ---
Author Name Unknown Organization [facility] Address [address] [place] [address] Phone [phone] Care Team Providers Care Business Services Sales Representative Name Role Phone Lina aCn MD Primary Care Prov ider Reason for Visit * Reason Comments Chemotherapy C2 D1 Zirabev/Folfir i * Episode Based Medications (Routine) - Authorized Specialty Diagnoses / Procedures Referred By Contac t Referred To Contact Diagnoses Encounter for antineoplastic chemotherapy Malignant neoplasm of sigmoid colon (HCC) Procedures [place] LEUCOVORIN CALCIUM INJECTION MI PALONOSETRON HCL MI FLUOROURACIL INJECTION MI IRINOTECAN INJECTION MI INJ., ZIRABEV, 10 MG Chandni Almonte MD [address] [place] [address] Anc Hem/Onc [address] [address] Referral ID Status Reason Start Date Expiration Date V isits Requested Visits Authorized [id number] Authorized 11/22/2023 11/21/2024 999 999 Encounter Details Date Type Department Care Team (Latest Contact Info) Description 01/16/2024 11:30 AM EDT Hem/Onc Treatment Hematology/Oncolog y Treatment, [address] [address] Chair Nasreen 8 Hem Onc [address] [place] [address] Encounter for antineoplastic chemotherapy*; Malignant neoplasm of sigmoid colon (HCC) Allergies Active Allergy Reactions Criticality Noted Date Comments Amoxicillin-Pot Clavulanate 07/13/19 GI upset Doxycycline 07/12/2022 GI upset Oxaliplatin Flushing High 07/27/2023 Shortness of breath Metoclopramide Hives 08/10/2022 documented as of this encounter (statuses as of 01/17/2024) Medications Medication Sig Dispensed Refills Start Date [...] infusion 4000 mg IV CONTINUOUS 01/15/2024 01/17/2024 Ended documented as of this encounter (statuses as of 01/17/2024) Active Problems Problem Noted Date Diagnosed Date [...] as of this encounter (statuses as of 01/17/2024) Immunizations No known immunizationsdocumented as of this [...] PM EDT Immunization/Injec tion Hematology/Oncolog y Treatment, [place] [address] [place] [phone] Nasreen, 8 Hem Onc Scenery [address] [place] [address] 01/22/2024 11:00 AM EDT Office Visit Gynecology/Oncolog y, [place] [address] [place] [address] Jocelyn Vera PA-C [address] [place] [address] 01/29/2024 10:00 AM EDT Laboratory Laboratory, [facility] [place] [phone] [facility] [address] [facility] [place] [address] 01/30/2024 11:30 AM EDT Hem/Onc Treatment Hematology/Oncolog y Treatment, [place] [address] [place] [phone] Nasreen, Chair 2 Hem Onc [facility] 200 [facility] [place] [address] 02/06/2024 9:08 AM EDT Hospital Encounter OR [facility], Operating Room, [facility] - 4th Floor 400 [place] [address] Timoteo Ayala DO [address] [place] [address] 02/06/2024 9:08 AM EDT - 02/06/2024 9:54 AM EDT Surgery OR [facility], Operating Room, [facility] - 4th Floor [address] [place] [address] Timoteo Ayala DO [address] [place] [facility] [place] [address] COLONOSCOPY FLEXIBLE PROXIMAL DIAGNOSTIC 02/13/2024 8:30 AM EST Office Visit Hematology/Oncolog y [facility] [place] [address] [place] [phone] Alisia Birmingham CRNP 400 [facility] [place] [address] 04/11/2024 2:00 PM EST Office Visit Urology Ashlie Louise [address] [place] [address] Manas Marie MD [address] [place] [address] 07/19/2024 11:30 AM EDT Office Visit Cardiology, [facility] [address] [place] [address] Ciro Saini DO 132 [place] [address] Scheduled Procedures Name Priority Associated Diagnoses Date/Ti [...] this encounter Medical Devices Implanted Type Area Batter Mixer Device Identifier Shelf Expiration Date Model / Serial / Lot Power Port 8fr Sngl Lumen Plas - [id number] Implanted:Qty : 1 on 01/05/2023 by Jai Malcolm Jr., MD at OR [facility] Right: Chest CR BARD : PERIPHERAL VASCULAR [id number] 07/08/2024 [id number] / / [id number] documented as of this encounter Visit Diagnoses [...] at 0830, Until Mon01/16/24 at 1953, Maintenance line Start Infusion 01/16/2024 12:32 PM EDT 50 mL/hr Palonosetron (Aloxi) inj SOLN 0.25 mg 0.25 mg, IV Push, ONCE, On Mon01/16/24 at 1245, For 1 dose, Restricted per S antiemetic guidelines Given 01/16/2024 12:32 PM EDT [...] of Attor johann? No Care Teams Business Services Sales Representative Relationship Specialty Start Date End Date Lina Can MD [address] [place] [address] [place] [address] PCP - General Family Medicine 08/06/22 documented as of this encounter
--- OUTSIDE RECORDS SUMMARY | 2024-05-09 12:29 | External Medical Summary | Summary of Care ---
Author Name Unknown Organization [facility] Address [address] [place] [address] Phone [phone] Care Team Providers Care Oncology Physician Assistant Name Role Phone Lina Can MD Primary Care Prov ider Reason for Visit * Reason Comments Chemotherapy C1D1 FOLFIRI + Zirab ev * Episode Based Medications (Routine) - Authorized Specialty Diagnoses / Procedures Referred By Contac t Referred To Contact Diagnoses Encounter for antineoplastic chemotherapy Malignant neoplasm of sigmoid colon (HCC) Procedures [place] LEUCOVORIN CALCIUM INJECTION [place] PALONOSETRON HCL [place] FLUOROURACIL INJECTION [place] IRINOTECAN INJECTION [place] INJ., ZIRABEV, 10 MG Chandni Almonte MD [address] [place] [address] Anc Hem/Onc [address] [address] Referral ID Status Reason Start Date Expiration Date V isits Requested Visits Authorized [id number] Authorized 11/22/2023 11/21/2024 999 999 Encounter Details Date Type Department Care Team (Latest Contact Info) Description 12/19/2023 9:30 AM EDT Hem/Onc Treatment Hematology/Oncolog y Treatment, [address] [address] Encounter for antineoplastic chemotherapy*; Malignant [...] Description 01/29/2024 10:00 AM EDT Laboratory Laboratory, [facility] [phone] [facility] [address] 01/30/2024 11:30 AM EDT Hem/Onc Treatment Hematology/Oncolog y Treatment, [place] [address] [place] [phone] [place], Chair 2 Hem Onc Scenery [address] [place] [address] 02/06/2024 9:08 AM EDT Hospital Encounter [place], Operating Room, [facility] - 4th Floor [address] [place] [phone] Timoteo Ayala, DO [address] [place] [address] 02/06/2024 9:08 AM EDT - 02/06/2024 9:54 AM EDT Surgery OR [facility], Operating Room, [facility] - 4th Floor 400 [facility] [place] [address] Timoteo Ayala, DO [address] [place] [address] COLONOSCOPY FLEXIBLE PROXIMAL DIAGNOSTIC 02/13/2024 8:30 AM EST Office Visit Hematology/Oncolog y [facility] [address] [place] [address] Alisia Birmingham CRNP 400 [place] [address] 04/11/2024 2:00 PM EST Office Visit Urology Ashlie Louise [address] [place] [address] Manas Marie MD 27 [place] [address] 07/19/2024 11:30 AM EDT Office Visit Cardiology, [facility] [address] [place] [address] Ciro Saini, [address] [place] [address] 02/03/2025 1:00 PM EDT Office Visit Gynecology/Obstetr ics [facility] [address] [place] [address] Nelli Farrell CRNP [address] [place] [address] Scheduled Procedures Name Priority Associated Diagnoses Date/Ti [...] this encounter Medical Devices Implanted Type Area Margin Analyst Device Identifier Shelf Expiration Date Model / Serial / Lot Power Port 8fr Sngl Lumen Plas - [id number] Implanted:Qty : 1 on 01/05/2023 by Jai Malcolm Jr., MD at OR [facility] Right: Chest CR BARD : PERIPHERAL VASCULAR [id number] 07/08/2024 [id number] / / [id number] documented as of this encounter Visit Diagnoses [...] Power of Attor johann? No Care Teams Oncology Physician Assistant Relationship Specialty Start Date End Date Lina Can MD [address] [place] [address] [place] [address] PCP - General Family Medicine 08/06/22 documented as of this encounter
--- OUTSIDE RECORDS SUMMARY | 2024-05-09 12:29 | External Medical Summary | Summary of Care ---
Author Name Unknown Organization [facility] Address [address] [place] [address] Phone [phone] Care Team Providers Care Whey Department Operator Name Role Phone Lina Can MD Primary Care Prov ider Reason for Visit * Reason Onset Date Comments Medication Pre-auth 01/09/2024 Udenyca Precert Approved 01/09/2024 Encounter Details Date Type Department Care Team (Late st Contact Info) Description 01/09/2024 Telephone Hematology/Oncology [facility] [address] [place] [address] Heriberto Wiley MD [address] [facility] [address] Medication Pre-auth (Udenyca); Precert Mina... Allergies Active Allergy Reactions Criticality Noted Date Comments Amoxicillin-Pot Clavulanate 07/13/19 23 GI upset Doxycycline 07/12/2022 GI upset Oxaliplatin Flushing High 07/27/2023 Shortness of breath Metoclopramide Hives 08/10/2022 documented as of this encounter (statuses as of 01/19/2024) Medications Medication Sig Dispensed Refills Start Date [...] as of this encounter (statuses as of 01/19/2024) Active Problems Problem Noted Date Diagnosed Date [...] as of this encounter (statuses as of 01/19/2024) Immunizations No known immunizationsdocumented as of this [...] encounter Miscellaneous Notes * Telephone Encounter - Samantha Gonzalez OSA - 01/15/2024 3:37 PM EDT Please see scanned fax from insurance under the Media Tab. Approved/Denied: approved Drug Name and Formulation: Pegfilgrastim-cbqv 6 MG/0.6ML Subcutaneous Solution Prefilled Syringe (Udenyca) How Prescribed(directions/sig): Inject 6 mg (1 syringe) under the skin 24 hours after FOLFOX pump disconnect every 2 weeks. Qty and Day Supply: 1.2 mL for 30 days Did you receive insurance information from outside the chart? No, received insurance information within the chart Valid auth start date: 01/12/2024 Valid auth end date: 07/12/2024 Rx Insurance Info: [facility] Reference #: [id number] Thank you, Samantha Gonzalez Medication Efficiency Miner III 01/15/2024, 3:37 PM * Telephone Encounter - Samantha Gonzalez OSA - 01/12/2024 1:19 PM EDT [facility] Authorization Submission Submission Information: Medication: UDENYCA 6 MG/0.6 ML SYRINGE Portal used: PromptPA Insurance: [facility] Authorization #/Santos: [id number] Thank you, Samantha Gonzalez Medication Efficiency Miner III 01/12/2024, 1:19 PM * Telephone Encounter - Chico Calvin data communications analyst - 01/09/2024 12:31 PM EDT New or re-auth: re-auth (restart) Patient Nyasia Hdez needs a prior authorization for a medication through their [facility] insurance. Medication: Udenyca Formulation: 6mg/0.6mL prefilled syringe Dosage: 1.2mL for 28ds ID: [id number] BIN:[id number] PCN:[id number] Target ship date is n/a. Thank you very much, Sigrid Calvin Housekeeping Room Inspector, [facility] 01/09/2024 12:32 PM documented in this encounter Plan of Treatment Upcoming Encounters Date Type Department Care Team (Late st Contact Info) Description 01/22/2024 11:00 AM EDT Office Visit Gynecology/Oncolog y, [place] [address] [facility] [place] [address] Jocelyn Vera PA-C [address] [place] [facility] [place] [address] 01/29/2024 10:00 AM EDT Laboratory Laboratory, [facility] [address] [facility] [place] [phone] [facility] [address] [facility] [address] 01/30/2024 11:30 AM EDT Hem/Onc Treatment Hematology/Oncolog y Treatment, [place] [address] [facility] [address] Nasreen, Chair 2 Hem Onc Scenery 200 [facility] [place] [address] 02/06/2024 9:08 AM EDT Hospital Encounter [facility], Operating Room, [facility] - 4th Floor [address] [facility] [place] [address] Timoteo Ayala DO [address] [place] [facility] [place] [address] 02/06/2024 9:08 AM EDT - 02/06/2024 9:54 AM EDT Surgery OR [facility], Operating Room, [facility] - 4th Floor [address] [place] [phone] Timoteo Ayala DO [address] [place] [facility] [place] [address] COLONOSCOPY FLEXIBLE PROXIMAL DIAGNOSTIC 02/13/2024 8:30 AM EST Office Visit Hematology/Oncolog y [facility] [place] [address] [place] [address] Alisia Birmingham CRNP 400 [facility] [place] [phone] 04/11/2024 2:00 PM EST Office Visit Urology Ashlie Louise [address] [place] [address] Manas Marie MD 27 [place] [address] 07/19/2024 11:30 AM EDT Office Visit Cardiology, [facility] [address] [place] [address] Ciro Saini, 132 [place] [address] Scheduled Procedures Name Priority Associated Diagnoses Date/Ti [...] encounter Medical Devices Implanted Type Area Global Manager Device Identifier Shelf Expiration Date Model / Serial / Lot Power Port 8fr Sngl Lumen Plas - [id number] Implanted:Qty : 1 on 01/05/2023 by Jai Malcolm Jr., MD at [facility] Right: Chest CR BARD : PERIPHERAL VASCULAR [id number] 07/08/2024 [id number] / / [id number] documented as of this encounter Advance Directives [...] Power of Attor johann? No Care Teams Whey Department Operator Relationship Specialty Start Date End Date Lina Can MD [address] [place] [address] [place] [address] PCP - General Family Medicine 08/06/22 documented as of this encounter
--- OUTSIDE RECORDS SUMMARY | 2024-05-09 12:29 | External Medical Summary | Summary of Care ---
Author Name Unknown Organization [facility] Address [address] [place] [address] Phone [phone] Care Team Providers Care Oil Exploration Engineer Name Role Phone Lina Can MD Primary Care Prov ider Reason for Visit * Reason Comments Procedure 5FU pump disconnect * Episode Based Medications (Routine) - Authorized Specialty Diagnoses / Procedures Referred By Contac t Referred To Contact Diagnoses Encounter for antineoplastic chemotherapy Malignant neoplasm of sigmoid colon (HCC) Procedures MS LEUCOVORIN CALCIUM INJECTION MS PALONOSETRON HCL MS FLUOROURACIL INJECTION MS IRINOTECAN INJECTION MS INJ., ZIRABEV, 10 MG Chandni Almonte MD 200 [place] [address] Anc Hem/Onc [address] [address] Referral ID Status Reason Start Date Expiration Date V isits Requested Visits Authorized [id number] Authorized 11/22/2023 11/21/2024 [id number] Encounter Details Date Type Department Care Team (Latest Contact Info) Description 01/18/2024 1:30 PM EDT Immunization/ Injection Hematology/Oncology Treatment, [address] [address] Chair Nasreen [address] Hem On[address] [place] [address] Encounter for antineoplastic chemotherapy*; Malignant neoplasm [...] 11:00 AM EDT Office Visit Gynecology/Oncolog y, [place] [address] [place] [address] Jocelyn Vera PA-C [address] [place] [address] 01/29/2024 10:00 AM EDT [facility] [address] [phone] Terrance Long [facility] [address] [address] 01/30/2024 11:30 AM EDT Hem/Onc Treatment Hematology/Oncolog y Treatment, [place] [address] [place] [address] Nasreen, Chair 2 Hem Onc Scenery [address] [place] [address] 02/06/2024 9:08 AM EDT Hospital Encounter OR [facility], Operating Room, [facility] - 4th Floor 400 [facility] [place] [address] Timoteo Ayala DO [address] [place] [address] 02/06/2024 9:08 AM EDT - 02/06/2024 9:54 AM EDT Surgery OR [facility], Operating Room, [facility] - 4th Floor [address] [place] [phone] Timoteo Ayala, DO [address] [place] [address] COLONOSCOPY FLEXIBLE PROXIMAL DIAGNOSTIC 02/13/2024 8:30 AM EST Office Visit Hematology/Oncolog y [facility] [address] [place] [address] Alsiia [place] CRNP 400 [facility] [place] [address] 04/11/2024 2:00 PM EST Office Visit Urology Ashlie Louise [address] [place] [address] Manas Marie MD 27 [place] [address] 07/19/2024 11:30 AM EDT Office Visit Cardiology, [facility] [address] [place] [address] Ciro Saini, DO [address] [place] [address] Scheduled Procedures Name Priority Associated Diagnoses Date/Ti [...] this encounter Medical Devices Implanted Type Area Aligner Barrel And Receiver Device Identifier Shelf Expiration Date Model / Serial / Lot Power Port 8fr Sngl Lumen Plas - [id number] Implanted:Qty : 1 on 01/05/2023 by Jai Malcolm Jr., MD at OR [facility] Right: Chest CR BARD : PERIPHERAL VASCULAR [id number] 07/08/2024 [id number] / / [id number] documented as of this encounter Visit Diagnoses [...] of Attor johann? No Care Teams Oil Exploration Engineer Relationship Specialty Start Date End Date Lina Can MD [address] [place] [address] [place] [address] PCP - General Family Medicine 08/06/22 documented as of this encounter
--- OUTSIDE RECORDS SUMMARY | 2024-05-09 12:29 | External Medical Summary | Summary of Care ---
Author Name Unknown Organization [facility] Address [address] [place] [address] Phone [phone] Care Team Providers Care System Software Developer Name Role Phone Lina Can MD Primary Care Prov ider Reason for Visit * Reason Comments Follow Up 1 yr Encounter Details Date Type Department Care Team (Latest Contact Info) Description 01/22/2024 11:00 AM EDT Office Visit Gynecology/Oncology, [place] [address] [place], [place] [phone] Jocelyn Vera PA-C [address] [place] [address] Encounter for annual routine gynecological examination*; Malignant neoplasm of sigmoid colon (HCC) Allergies [...] Sign Reading Time Taken Comments Blood Pressure 115/76 01/22/2024 10:51 AM EDT Pulse 65 01/22/2024 10:51 AM EDT Temperature - - Respiratory Rate 20 01/22/2024 10:51 AM EDT Oxygen Saturation - - Inhaled Oxygen Concentration - - Weight 54.4 kg (120 lb) 01/22/2024 10:51 AM EDT Height - - Body Mass Index 22.67 11/15/2023 10:01 AM EDT documented in this [...] as of this encounter Progress Notes * Jocelyn Vera PA-C - 01/22/2024 11:00 AM EDT CC: Annual gynecologic exam HPI: Nyasia Hdez is a 68 year old female who presents for her annual gynecologic exam. Of note, the patient has a history of colon cancer. On 11/25/2022 the patient underwent robotic assisted total laparoscopic hysterectomy with bilateral salpingo-oophorectomy secondary to colon cancerwith uterine involvment. Her oncology history is as follows: Treatment Summary Malignant neoplasm of sigmoid colon (HCC) 11/25/2022 Initial Diagnosis Malignant neoplasm of sigmoid colon (HCC) CEA: 3.9 (09/02/2022) 11/25/2022 Surgery Robotic assisted low anterior resection by Dr. Timoteo Ayala and robotic assisted total laparoscopic hysterectomy with bilateral salpingo-oophorectomy by Dr. Vinay Frye. Uterus, cervix, bilateral fallopian tubes, bilateral ovaries, [...] nodes positive for carcinoma (5/15). - Stage: [id number]. 11/25/2022 Cancer Staged Staging form: Colon And Rectum, AJCC 8th Edition, Clinical stage from 11/25/2022: cT4b - Signed by Vinay Rice MD on 12/06/2022 01/09/2023 - 07/10/2023 Chemotherapy 10 cycles of MODIFIED FOLFOX6 5FU 400 mg/m2 then 2400 mg/m2 for 46 hours LCV 400 mg/m2 Oxaliplatin 85 mg/m2 D1 07/11/2023 - 07/27/2023 Chemotherapy She had allergic reaction so the chemo was changed to FOLFIRI for last 2 cycles. 10/02/[address] IMPRESSION New FDG avid osseous lesions in the right scapula, L5 vertebral body, and left femur, consistent with metastatic disease. 11/15/2023 Biopsy Bone, right scapula, CT/US guided core needle biopsy: Adequacy: Satisfactory for evaluation. Category: Malignant. Interpretation: Adenocarcinoma, compatible with colorectal primary. Other: Biopsy: The histological sections of the biopsy specimen contain fragments of tissue (A1 40%, A3 10% tumor cellularity). Tumor cells are positive for CK20, CDX2, SatB2; negative for CK7. The immunophenotype and morphology are compatible with adenocarcinoma, colorectal primary. 11/24/2023 - 12/01/2023 Radiation Patient was seen by Dr. Pena in radiation oncology SBRT total dosage 3000 cGy in 5 fractions to the Right scapula SBRT total dosage 3000 cGy in 5 fractions to the L-spine SBRT total dosage 3000 cGy in 5 fractions to the Left Femur 12/18/2023 - Chemotherapy Salvage chemotherapy including combination of FOLFIRI plus Avastin PET CT 10/02/2023 FINDINGS PET SCAN: Head / Neck: No abnormal uptake. Chest: No abnormal soft tissue uptake. Abdomen: No abnormal uptake. Pelvis: No abnormal uptake. Musculoskeletal / Other: Compared to the prior PET-CT, there is a new FDG avid lytic lesion in the inferior posterior margin of the right scapula with a max SUV of 12.3. There is also a new FDG avid lesion in the L5 vertebral body with a max SUV of 20.5 FDG avid lesion present in the intertrochanteric region of the left femur with a max SUV of 8.22. CT SCAN: Head / Neck: No acute process identified. Chest: MediPort present in the right chest with tip terminating in the right atrium. Prior right mastectomy. Atelectatic changes are present throughout both lungs. Mild emphysematous changes, worse in the upper lobes. Atherosclerotic calcifications are present throughout the aorta and coronary arteries. Abdomen: Extensive atherosclerotic disease. No acute process identified otherwise. Pelvis: Postsurgical changes involving the rectum. Prior hysterectomy. Fat stranding in the perirectal and presacral space, likely post therapy related. No distinct mass or lymphadenopathy appreciated. Musculoskeletal / Other: Osseous lesions as above. Degenerative changes are present throughout the bony structures. Minimal biconvex curvature of the thoracolumbar spine. IMPRESSION 1. New FDG avid osseous lesions in the right scapula, L5 vertebral body, and left femur, consistentwith metastatic disease. 2. No other areas of abnormal FDG uptake are identified. 3. Chronic CT findings as above CYTOLOGY 11/15/23 Bone, right scapula, CT/US guided core needle biopsy: Adequacy: Satisfactory for evaluation. Category: Malignant. Interpretation: Adenocarcinoma, compatible with colorectal primary. Other: Biopsy: The histological sections of the biopsy specimen contain fragments of tissue (A1 40%, A3 10% tumor cellularity). Tumor cells are positive for CK20, CDX2, SatB2; negative for CK7. The immunophenotype and morphology are compatible with adenocarcinoma, colorectal primary. Today she returns with no gynecologic complaints. She denies vaginal bleeding, discharge, or drainage. Denies blood in the urine or stool. She notes that she does continue to have intermittent bone pain in her femur and back consistent with the locations of her radiated bone mets. She has toleratedthe first two cycles of chemotherapy well thus far. Denies change in her bowel or bladder habits. Review of Systems Review of Systems Constitutional: Negative for appetite change, chills, fatigue, fever and unexpected weight change. Respiratory: Negative for cough, chest tightness, shortness of breath and wheezing. Cardiovascular: Negative for chest pain, palpitations and leg swelling. Gastrointestinal: Negative for abdominal distention, abdominal pain, constipation, diarrhea, nauseaand vomiting. Genitourinary: Negative for dyspareunia, dysuria, flank pain, pelvic pain, urgency, vaginal bleeding, vaginal discharge and vaginal pain. Musculoskeletal: Positive for arthralgias. Psychiatric/Behavioral: The patient is not nervous/anxious. All others negative, except as noted above. Medical and surgical history, medications, and allergies have been updated since last office visit. Past Medical History: Diagnosis Date Breast cancer (HCC) 1991 right mastectomy Cancer, metastatic to bone (HCC) Colon cancer (HCC) New onset atrial fibrillation (HCC) 11/02/2023 Past Surgical History: Procedure Laterality Date COLONOSCOPY, DIAGNOSTIC (RECTUM) N/A 10/06/2022 COLONOSCOPY FLEXIBLE PROXIMAL DIAGNOSTIC performed by Timoteo Ayala DO at [facility]OS[facility] COLONOSCOPY, DIAGNOSTIC (RECTUM) 10/21/2022 A fungating partially obstructing large mass was found in the sigmoid colon, performed by Glo Garcia DO at ENDOSCOPY [facility] CYSTOSCOPY/INSERTION OF STENT Bilateral 11/25/2022 CYSTOURETHROSCOPY WITH INSERTION URETERAL STENT DUAL SERVICE performed by Kishan Leblanc MD at OR [facility] CYSTOSCOPY/TREAT SML BLADDER TUMOR N/A 11/25/2022 ADULT CYSTOURETHROSCOPY WITH FULGURATION SMALL BLADDER TUMOR performed by Kishan Leblanc MD at OR [facility] INSER TUNN ACC DEV;5 YRS/OLDER Right 01/05/2023 INSERT TUNNELED CENTRAL VENOUS ACCESS WITH SUBQ PORT performed by Jai Malcolm Jr., MD at OR [facility] IR BIOPSY 11/15/2023 LAPAROSCOPIC PARTIAL COLECTOMY W/COLOPROCTOSTOMY N/A 11/25/2022 ROBOTIC LAPAROSCOPIC PARTIAL COLECTOMY WITH COLOPROCTOSTOMY performed by Timoteo Ayala DO at[facility] LAPAROSCOPY TOTAL HYSTX, UTERUS 250GM OR LESS 11/25/2022 ROBOTIC LAPAROSCOPIC HYSTERECTOMY FOR UTERUS 250GM OR LESS performed by Vinay Rice MD at OR [facility] MASTECTOMY, SIMPLE, COMPLETE Right 1992 [place] HEPATOBILIARY [...] disconnect every 2 weeks. 1.2 mL 5 No current facility-administered medications for this visit. Family History Problem Relation Name Age of Onset Breast Cancer Mother Breast Cancer Aunt (Maternal) ECOG Performance Scale: 1 PHYSICAL EXAM: BP 115/76 (BP Site: Left Arm, BP Position: Sitting, BP Cuff Size: Regular) | Pulse 65 | Resp 20 | Wt 54.4 kg (120 lb) | BMI 22.67 kg/m | BSA 1.53 m General: well developed woman in no acute distress. Alert and oriented x 3, appropriate mood and affect Neck: supple, no thyromegaly, no cervical lymphadenopathy, no nodularity No palpable supraclavicular lymph nodes Lungs: clear to auscultation bilaterally, unlabored respiratory effort, equal chest rise bilaterally CV: normal rate and rhythm, no murmur or gallop Breasts: deferred Abdomen: soft, bowel sounds present, non-tender, non-distended, no palpable masses No CVA tenderness bilaterally No palpable inguinal lymphadenopathy bilaterally Vulva: no suspicious lesions, no rash, no discoloration, non-tender Vagina: vaginal cuff well-visualized, no mass or bleeding visible on exam, no suspicious lesions Cervix: surgically absent Bimanual: smooth vaginal wall, no palpable masses, non-tender Extremities: no peripheral edema, no calf tenderness Neuro: grossly intact, fluent speech, attentive Skin: warm, dry, no worrisome lesions Account Development Executive Documentation Patient offered parquetry layer and declined. Impression: - Annual gynecology exam - Recurrent metastatic colon cancer - currently on palliative chemotherapy Plan: Annual CLIENT SALES AND SERVICE OFFICER exam - Return in 1 year for routine exam 2. Recurrent colon cancer - proceed with palliative treatment per hematology oncology Patient verbalized understanding of diagnosis & treatment plan and had no further questions. I spent a total of 20-29 minutes (exact time 29 mins) on the date of service in preparation, delivery, and documentation of the care provided to Nyasia Hdez excluding any time spent in the performance of separately billed services. Jocelyn Vera PA-C Gynecologic Oncology 01/22/2024 documented in this encounter Nursing Notes * Macy Hassan MED ASSIST - 01/22/2024 10:52 AM EDT Nyasia presents in clinic today for 1 yr follow up documented in this encounter Plan of Treatment Upcoming Encounters Date Type Department Care Team (Late st Contact Info) Description 01/29/2024 10:00 AM EDT Laboratory Laboratory, [facility] [place] 132 [facility] [place] [phone] Terrance Long Ge [facility] [place] [address] 01/30/2024 11:30 AM EDT Hem/Onc Treatment Hematology/Oncolog y Treatment, [place] [address] [facility] [phone] Nasreen, Chair 2 Hem Onc Scenery 200 [facility] [place] [address] 02/06/2024 9:08 AM EDT Hospital Encounter OR [facility], Operating Room, [facility] [place] - 4th Floor [address] [place] [phone] Timoteo Ayala, DO [address] [place] [address] 02/06/2024 9:08 AM EDT - 02/06/2024 9:54 AM EDT Surgery OR [facility], Operating Room, [facility] [place] - 4th Floor [address] [place] [phone] Timoteo Ayala, DO [address] [place] [address] COLONOSCOPY FLEXIBLE PROXIMAL DIAGNOSTIC 02/13/2024 8:30 AM EST Office Visit Hematology/Oncolog y [place] 200 [facility] [place] [phone] Alisia Birmingham CRNP [address] [place] [phone] 04/11/2024 2:00 PM EST Office Visit Urology Ashlie Louise [address] [place] [address] Manas Marie MD 27 [place] [address] 07/19/2024 11:30 AM EDT Office Visit Cardiology, [facility] [address] [place] [address] Ciro Saini DO [address] [place] [address] 02/03/2025 1:00 PM EDT Office Visit Gynecology/Obstetr ics [facility] [address] [place] [address] Nelli Farrell CRNP [address] [place] [address] Scheduled Procedures Name Priority Associated Diagnoses Date/Ti [...] this encounter Medical Devices Implanted Type Area Construction Technician Device Identifier Shelf Expiration Date Model / Serial / Lot Power Port 8fr Sngl Lumen Plas - [id number] Implanted:Qty : 1 on 01/05/2023 by Jai Malcolm Jr., MD at [facility] Right: Chest CR BARD : PERIPHERAL VASCULAR [id number] 07/08/2024 [id number] / / [id number] documented as of this encounter Visit Diagnoses Diagnosis Encounter for annual routine gynecological examination- Primary Malignant neoplasm of sigmoid colon (HCC) [...] Power of Attor johann? No Care Teams System Software Developer Relationship Specialty Start Date End Date Lina Can MD [address] [place] [address] [place] [address] PCP - General Family Medicine 08/06/22 documented as of this encounter"
--- OUTSIDE RECORDS SUMMARY | 2024-05-09 12:29 | External Medical Summary | Summary of Care ---
Author Name Unknown Organization [facility] Address [address] [place] [address] Phone [phone] Care Team Providers Care Senior Network Administrator Name Role Phone Lina Can MD Primary [...] ZIRABEV, 10 MG Chandni Almonte MD [address] [place] [address] Anc Hem/Onc [address] [address] Referral ID Status Reason Start Date Expiration Date V isits Requested Visits Authorized [id number] Authorized 11/22/2023 11/21/2024 999 999 Encounter Details Date Type Department Care Team (Latest Contact Info) Description 12/19/2023 9:30 AM EDT Hem/Onc Treatment Hematology/Oncolog y Treatment, [address] [address] Encounter for antineoplastic chemotherapy*; Malignant [...] Description 01/29/2024 10:00 AM EDT Laboratory Laboratory, [facility] [phone] [facility] 132 [facility] [address] 01/30/2024 11:30 AM EDT Hem/Onc Treatment Hematology/Oncolog y Treatment, [place] [address] [place] [phone] Park, Chair 2 Hem Onc Scenery [address] [place] [address] 02/06/2024 9:08 AM EDT Hospital Encounter OR GL, Operating Room, [facility] - 4th Floor [address] [place] [phone] Timoteo Ayala, DO [address] [place] [address] 02/06/2024 9:08 AM EDT - 02/06/2024 9:54 AM EDT Surgery OR GLH, Operating Room, [facility] - 4th Floor 400 [place] [address] Timoteo Ayala, DO [address] [place] [address] COLONOSCOPY FLEXIBLE PROXIMAL DIAGNOSTIC 02/13/2024 8:30 AM EST Office Visit Hematology/Oncolog y [facility] [address] [place] [address] Alisia [place] CRNP 400 [place] [address] 04/11/2024 2:00 PM EST Office Visit Urology [place] Louise [address] [place] 270 [place] [address] Manas Marie MD 27 [place] [address] 07/19/2024 11:30 AM EDT Office Visit Cardiology, [facility] [address] [place] [address] Ciro Saini, [address] [place] [address] 02/03/2025 1:00 PM EDT Office Visit Gynecology/Obstetr ics [facility] [address] [place] [address] Nelli Farrell CRNP [address] [place] [address] Scheduled Procedures Name Priority Associated Diagnoses Date/Ti [...] this encounter Medical Devices Implanted Type Area Systems Designer Device Identifier Shelf Expiration Date Model / Serial / Lot Power Port 8fr Sngl Lumen Plas - [id number] Implanted:Qty : 1 on 01/05/2023 by Jai Malcolm Jr[facility] Right: Chest CR BARD : PERIPHERAL VASCULAR [id number] 07/08/2024 [id number] / / [id number] documented as of this encounter Visit Diagnoses [...] at 1045, For 1 dose, Restricted per [facility] antiemetic guidelines Given 12/19/2023 10:21 AM EDT [...] of Attor johann? No Care Teams Senior Network Administrator Relationship Specialty Start Date End Date Lina Can MD [address] [place] [address] [place] [address] PCP - General Family Medicine 08/06/22 documented as of this encounter
--- OUTSIDE RECORDS SUMMARY | 2024-05-09 12:30 | External Medical Summary | Summary of Care ---
Author Name Unknown Organization [facility] Address [address] [place] [address] Phone [phone] Care Team Providers Care Requisition Approver Name Role Phone Lina Can MD Primary [...] ZIRABEV, 10 MG Chandni Almonte MD 200 [place] [address] Anc Hem/Onc [address] [address] Referral ID Status Reason Start Date Expiration Date V isits Requested Visits Authorized [id number] Authorized 11/22/2023 11/21/2024 999 999 Encounter Details Date Type Department Care Team (Latest Contact Info) Description 01/16/2024 11:30 AM EDT Hem/Onc Treatment Hematology/Oncolog y Treatment, [address] [address] Chair Nasreen 8 Hem Onc [address] [place] [address] Encounter for antineoplastic chemotherapy*; Malignant neoplasm of [...] PM EDT Immunization/Injec tion Hematology/Oncolog y Treatment, [place] [address] [place] [phone] Nasreen, 8 Hem Onc Scenery [address] [place] [address] 01/22/2024 11:00 AM EDT Office Visit Gynecology/Oncolog y, [place] [address] [place] [address] Jocelyn Vera PA-C [address] [place] [address] 01/29/2024 10:00 AM EDT Laboratory Laboratory, [facility] [address] [facility] [place] [phone] [facility] [address] [place] [address] 01/30/2024 11:30 AM EDT Hem/Onc Treatment Hematology/Oncolog y Treatment, [place] [address] [place] [address] Nasreen, Chair 2 Hem Onc [facility] 200 [facility] [place] [address] 02/06/2024 9:08 AM EDT Hospital Encounter OR GL, Operating Room, [facility] - 4th Floor 400 [place] [address] Timoteo Ayala DO [address] [place] [address] 02/06/2024 9:08 AM EDT - 02/06/2024 9:54 AM EDT Surgery OR [facility], Operating Room, [facility] - 4th Floor [address] [place] [address] Timoteo Ayala DO 100 [address] [facility] [address] COLONOSCOPY FLEXIBLE PROXIMAL DIAGNOSTIC 02/13/2024 8:30 AM EST Office Visit [facility]olog [facility] [place] [address] [place] [phone] Alisia [place] CRNP 400 [facility] [place] [address] 04/11/2024 2:00 PM EST Office Visit Urology [place] Louise [address] [place] 270 [place] [phone] Manas Marie MD 27 [place] [address] Scheduled Procedures Name Priority Associated Diagnoses Date/Ti [...] this encounter Medical Devices Implanted Type Area Egg Producer Device Identifier Shelf Expiration Date Model / Serial / Lot Power Port 8fr Sngl Lumen Plas - [id number] Implanted:Qty : 1 on 01/05/2023 by Jai Malcolm Jr., MD at [facility] Right: Chest CR BARD : PERIPHERAL VASCULAR [id number] 07/08/2024 [id number] / / [id number] documented as of this encounter Visit Diagnoses [...] 1245, For 1 dose, Restricted per [facility] antiemetic guidelines Given 01/16/2024 12:32 PM EDT [...] Power of Attor johann? No Care Teams Requisition Approver Relationship Specialty Start Date End Date Lina Can MD [address] [place] [address] [place]el [phone] PCP - General Family Medicine 08/06/22 documented as of this encounter
--- OUTSIDE RECORDS SUMMARY | 2024-05-09 12:30 | External Medical Summary | Summary of Care ---
Author Name Unknown Organization [facility] Address [address] [place] [address] Phone [phone] Care Team Providers Care Diving Fisher Name Role Phone Lina Can MD Primary Care Prov ider Reason for Visit * Reason Onset Date Comments Medication Pre-auth 01/09/2024 Udenyca Precert Pending 01/09/2024 Samantha Encounter Details Date Type Department Care Team (Late st Contact Info) Description 01/09/2024 Telephone Hematology/Oncology [place] [address] [place] [address] Heriberto Wiley MD [address] [place] [address] Medication Pre-auth (Udenyca); Precert Pen... Allergies Active Allergy Reactions Criticality Noted Date Comments Amoxicillin-Pot Clavulanate 07/13/19 23 GI upset Doxycycline 07/12/2022 GI upset Oxaliplatin Flushing High 07/27/2023 Shortness of breath Metoclopramide Hives 08/10/2022 documented as of this encounter (statuses as of 01/12/2024) Medications Medication Sig Dispensed Refills Start Date [...] as of this encounter (statuses as of 01/12/2024) Active Problems Problem Noted Date Diagnosed Date [...] as of this encounter (statuses as of 01/12/2024) Immunizations No known immunizationsdocumented as of this [...] Gonzalez OSA - 01/12/2024 1:19 PM EDT [facility] Authorization Submission Submission Information: Medication: UDENYCA 6 MG/0.6 ML SYRINGE [facility] Authorization #/Santos: [id number] Thank you, Samantha Gonzalez Medication Facilities Assistant III 01/12/2024, 1:19 PM * Telephone Encounter - [place] Calvin, freight sales broker - 01/09/2024 12:31 PM EDT New or re-auth: re-auth (restart) Patient Nyasia Hdez needs a prior authorization for a medication through their [facility] insurance. Medication: Udenyca Formulation: 6mg/0.6mL prefilled syringe Dosage: 1.2mL for 28ds ID: [id number] BIN:[id number] PCN:[id number] Target ship date is n/a. Thank you very much, Sigrid Calvin Logistics Service Representative, [facility] 01/09/2024 12:32 PM documented in this encounter Plan of Treatment Upcoming Encounters Date Type Department Care Team (Late st Contact Info) Description 01/15/2024 9:30 AM EDT Laboratory Laboratory, [facility] 132 [place] [address] [address] 01/16/2024 11:30 AM EDT Hem/Onc Treatment Hematology/Oncolog y Treatment, [place] 200 [place] [address] Nasreen, Chair 8 Hem Onc Scenery 200 [facility] [place] [address] 01/22/2024 11:00 AM EDT Office Visit Gynecology/Oncolog y, [place] [address] [place] [address] Jocelyn Vera PA-C [address] [place] [address] 02/06/2024 9:08 AM EDT Hospital Encounter OR [facility], Operating Room, [facility] - 4th Floor 400 [facility] [place] [address] Timoteo Ayala, DO [address] [place] [address] 02/06/2024 9:08 AM EDT - 02/06/2024 9:54 AM EDT Surgery OR GL, Operating Room, [facility] - 4th Floor 400 [facility] [address] Timoteo Ayala, DO [address] [place] [address] COLONOSCOPY FLEXIBLE PROXIMAL DIAGNOSTIC 02/07/2024 8:00 AM EDT Office Visit Hematology/Oncolog y [place] Nasreen [place] [address] [place] [phone] Chandni Almonte MD [address] [place] [address] 04/11/2024 2:00 PM EST Office Visit UrologAshlie [place] [address] [facility] [address] [place] [address] Manas Marie MD [address] [place] [phone] Scheduled Procedures Name Priority Associated Diagnoses Date/Ti [...] this encounter Medical Devices Implanted Type Area Crab Backer Device Identifier Shelf Expiration Date Model / Serial / Lot Power Port 8fr Sngl Lumen Plas - [id number] Implanted:Qty : 1 on 01/05/2023 by aJi Malcolm Jr., MD at [facility] Right: Chest CR BARD : PERIPHERAL VASCULAR [id number] 07/08/2024 [id number] / / [id number] documented as of this encounter Advance Directives [...] Power of Attor johann? No Care Teams Diving Fisher Relationship Specialty Start Date End Date Lina Can MD [address] [place] [address] S[place]UM[place] Patle [phone] PCP - General Family Medicine 08/06/22 documented as of this encounter
--- OUTSIDE RECORDS SUMMARY | 2024-05-09 12:30 | External Medical Summary | Summary of Care ---
Author Name Unknown Organization [facility] Address [address] [place] [address] Phone [phone] Care Team Providers Care Bobbin Drier Name Role Phone Lina Can MD Primary Care Prov ider Reason for Visit * Reason Comments Outpatient Testing Encounter Details Date Type Department Care Team (Late st Contact Info) Description 01/15/2024 9:30 AM EDT Laboratory Laboratory, [facility] 132 [place] [address] LongTerrance alva [facility] 132 [place] [address] Malignant neoplasm of sigmoid colon (HCC) Allergies Active Allergy Reactions Criticality Noted Date Comments Amoxicillin-Pot Clavulanate 07/13/19 GI upset Doxycycline 07/12/2022 GI upset Oxaliplatin Flushing High 07/27/2023 Shortness of breath Metoclopramide Hives 08/10/2022 documented as of this encounter (statuses as of 01/15/2024) Medications Medication Sig Dispensed Refills Start Date [...] as of this encounter (statuses as of 01/15/2024) Active Problems Problem Noted Date Diagnosed Date [...] as of this encounter (statuses as of 01/15/2024) Immunizations No known immunizationsdocumented as of this [...] Team (Late st Contact Info) Description 01/16/2024 11:30 AM EDT Hem/Onc Treatment Hematology/Oncolog y Treatment, [place] [address] [place] [phone] Nasreen, Chair 8 Hem Onc Scene [address] [place] [address] 01/22/2024 11:00 AM EDT Office Visit Gynecology/Oncolog y, [place] [address] [place] [address] Jocelyn Vera PA-C [address] [place], [place] [address] 02/06/2024 9:08 AM EDT Hospital Encounter [facility], Operating Room, [facility] - 4th Floor 400 [facility] [place] [address] Tiomteo Ayala, DO [address] [place] [address] 02/06/2024 9:08 AM EDT - 02/06/2024 9:54 AM EDT Surgery [facility], Operating Room, [facility] - 4th Floor 400 [facility] [place] [phone] Timoteo Ayala, DO [address] [place] [address] COLONOSCOPY FLEXIBLE PROXIMAL DIAGNOSTIC 02/07/2024 8:00 AM EDT Office Visit Hematology/Oncolog y [facility] Nasreen [place] [address] [place] [address] Chandni Almonte MD [address] [place] [address] 04/11/2024 2:00 PM EST Office Visit Urology [place] Louise [address] [place] 270 [place] [address] Manas Marie MD 27 [place] [address] Pending Results Name Type Priority Associated Diagnoses Date /Time MAGNESIUM Lab STAT Malignant neoplasm of sigmoid colon (HCC) 01/15/2024 8:32 AM EDT COMPREHENSIVE METABOLIC PANEL Lab STAT Malignant neoplasm of sigmoid colon (HCC) 01/15/2024 8:32 AM EDT URINALYSIS, REFLEX TO MICROSCOPIC Lab STAT Malignant neoplasm of sigmoid colon (HCC) 01/15/2024 9:29 AM EDT Scheduled Procedures Name Priority Associated [...] this encounter Medical Devices Implanted Type Area Anesthesia Tech Device Identifier Shelf Expiration Date Model / Serial / Lot Power Port 8fr Sngl Lumen Plas - [id number] Implanted:Qty : 1 on 01/05/2023 by Jai Malcolm Jr., MD at [facility] Right: Chest CR BARD : PERIPHERAL VASCULAR [id number] 07/08/2024 [id number] / / [id number] documented as of this encounter Procedures Procedure Name Priority Date/Time Associated Diagnosis Comments DIFFERENTIAL, AUTOMATED STAT 01/15/2024 8:32 AM EDT Malignant neoplasm of sigmoid colon (HCC) CBC STAT 01/15/2024 8:32 AM EDT Malignant neoplasm of sigmoid colon (HCC) CBC STAT 01/15/2024 8:32 AM EDT Malignant neoplasm of sigmoid colon (HCC) documented in this encounter Results * (ABNORMAL) DIFFERENTIAL, AUTOMATED (01/15/2024 8:32 AM EDT) WBC 4.56 4.00 - 10.80 K/uL 01/15/2024 9:01 AM EDT [facility] [place] [facility]10 Neutrophils % 60.9 40.0 - 75.0 % 01/15/2024 9:01 AM EDT [facility] [place] 57[facility]10 Lymphocytes % 25.2 18.0 - 42.0 % 01/15/2024 9:01 AM EDT [facility] [place] [facility]10 Monocytes % 11.4(H) 1.0 - 11.0 % 01/15/2024 9:01 AM EDT [facility] [place] [facility]10 Eosinophils % 1.8 0.0 - 6.0 % 01/15/2024 9:01 AM EDT [facility] [place] [facility]10 Basophils % 0.7 0.0 - 2.0 % 01/15/2024 9:01 AM EDT [facility] [place] [facility]10 Absolute Neutrophils 2.78 1.80 - 7.70 K/uL 01/15/2024 9:01 AM EDT [facility] [place] [facility]10 Absolute Lymphocytes 1.15 1.00 - 4.80 K/ul 01/15/2024 9:01 AM EDT [facility] [place] [facility]10 Absolute Monocytes 0.52 0.00 - 1.10 K/uL 01/15/2024 9:01 AM EDT [facility] [place] [facility]10 Absolute Eosinophils 0.08 0.00 - 0.70 K/uL 01/15/2024 9:01 AM EDT [facility] [place] [facility]10 Absolute Basophils 0.03 0.00 - 0.20 K/uL 01/15/2024 9:01 AM EDT [facility] [place] 57[facility]10 Blood Venous blood specimen / Unknown Venipuncture / Unknown 01/15/2024 8:32 AM EDT 01/15/2024 8:32 AM EDT Chandni Almonte MD LAB BLOOD ORDERA BLES Performing Organization Address City/State/[facility] Co de Phone Number LAB[facility]ATORY [place] [id number] [place] [address] * CBC (01/15/2024 8:32 AM EDT) WBC 4.56 4.00 - 10.80 K/uL 01/15/2024 9:01 AM EDT [facility] [place] [facility] RBC 3.91 3.85 - 5.15 M/uL 01/15/2024 9:01 AM EDT [facility] [place] [facility]10 HGB 12.0 12.0 - 15.3 g/dL 01/15/2024 9:01 AM EDT [facility] [place] [facility]10 HCT 36.1 36.0 - 45.2 % 01/15/2024 9:01 AM EDT [facility] [place] [facility]10 MCV 92.3 81.5 - 97.5 fL 01/15/2024 9:01 AM EDT [facility] [place] [facility] MCH 30.7 27.0 - 34.0 pg 01/15/2024 9:01 AM EDT [facility] [place] [facility]10 MCHC 33.2 32.0 - 36.0 g/dL 01/15/2024 9:01 AM EDT [facility] [place] [facility] RDW 18.6 11.5 - 15.5 % 01/15/2024 9:01 AM EDT [facility] [place] [facility]10 PLT 174 140 - 400 K/uL 01/15/2024 9:01 AM EDT [facility] [place] [facility]10 MPV 8.9 6.6 - 11.1 fL 01/15/2024 9:01 AM EDT [facility] [place] [facility]10 Blood Venous blood specimen / Unknown Venipuncture / Unknown 01/15/2024 8:32 AM EDT 01/15/2024 8:32 AM EDT Chandni Almonte MD LAB BLOOD ORDERA BLES [place] 57[facility]10 [address] [place] [address] documented in this encounter Visit Diagnoses Diagnosis [...] Power of Attor johann? No Care Teams Bobbin Drier Relationship Specialty Start Date End Date Lina Can MD [address] [place] [address] [place] [phone] PCP - General Family Medicine 08/06/22 documented as of this encounter
--- OUTSIDE RECORDS SUMMARY | 2024-05-09 12:30 | External Medical Summary ---
Author Name Unknown Address Unknown Organization K[facility] [address] [place] [address] Laboratory Report Ordering Provider Test Date Status DANNIELLE OLVERA 01/15/2024 09:29:08 Final Observation Date Value Abnormality Reference (Units ) Status Color of Urine by Auto 01/15/2024 09:29:08 Yellow Light Yellow, Yellow, Dark Yellow Final Clarity, Urine 01/15/2024 09:29:08 Clear Clear Final Glucose [Mass/volume] in Urine by Automated test strip 01/15/2024 09:29:08 Negative Negative (mg/dL) Final Bilirubin.total [Presence] in Urine by Automated test strip 01/15/2024 09:29:08 Negative Negative Final Ketones [Mass/volume] in Urine by Automated test strip 01/15/2024 09:29:08 Negative Negative (mg/dL) Final Specific gravity, Urine 01/15/2024 09:29:08 1.010 1.003-1.030 Final Hemoglobin [Presence] in Urine by Automated test strip 01/15/2024 09:29:08 Trace Abnormal Negative Final pH, Urine 01/15/2024 09:29:08 7.0 5.0-7.5 (Units) Final Protein [Mass/volume] in Urine by Automated test strip 01/15/2024 09:29:08 Negative Negative (mg/dL) Final Urobilinogen [Mass/volume] in Urine by Automated test strip 01/15/2024 09:29:08 0.2 0.2, 1.0 (mg/dL) Final Nitrite [Presence] in Urine by Automated test strip 01/15/2024 09:29:08 Negative Negative Final Leukocyte esterase [Presence] in Urine by Automated test strip 01/15/2024 09:29:08 Negative Negative Final Performing Location LABORATORY [facility] 57-1 [address] - [address] [place] [address]
--- OUTSIDE RECORDS SUMMARY | 2024-05-09 12:30 | External Medical Summary | Summary of Care ---
Author Name Unknown Organization [facility] Address [address] [place] [address] Phone [phone] Care Team Providers Care Manufacturing Supervisor Name Role Phone Lina Can MD Primary Care Prov ider Encounter Details Date Type Department Care Team (Late st Contact Info) Description 01/15/2024 Orders Only [facility] [address] [place] [address] Chandni Almonte MD [address] [place], [place] [phone] Allergies Active Allergy Reactions Criticality Noted Date [...] AM EDT Hem/Onc Treatment Hematology/Oncolog y Treatment, [place] [address] [place] [address] Nasreen, Chair 8 Hem Onc Scenery [address] [place] [address] 01/22/2024 11:00 AM EDT Office Visit Gynecology/Oncolog y, [address] [address] Jocelyn Vera PA-C [address] [place] [address] 02/06/2024 9:08 AM EDT Hospital Encounter [facility], Operating Room, [facility] - 4th Floor 400 [facility] [place] [address] Timoteo Ayala, DO [address] [place] [address] 02/06/2024 9:08 AM EDT - 02/06/2024 9:54 AM EDT Surgery [facility], Operating Room, [facility] - 4th Floor 400 [facility] [place] [phone] Timoteo Ayala, DO [address] [place] [address] COLONOSCOPY FLEXIBLE PROXIMAL DIAGNOSTIC 02/07/2024 8:00 AM EDT Office Visit Hematology/Oncolog y [facility] [address] [place] [address] Chandni Almonte MD 200 [facility] [place] [address] 04/11/2024 2:00 PM EST Office Visit Urology [place] Louise [address] [facility] 270 [place] [address] Manas Marie MD 27 [place] [address] Scheduled Procedures Name Priority Associated Diagnoses Date/Ti [...] this encounter Medical Devices Implanted Type Area Bench Manager Device Identifier Shelf Expiration Date Model / Serial / Lot Power Port 8fr Sngl Lumen Plas - [id number] Implanted:Qty : 1 on 01/05/2023 by Jai Malcolm Jr., MD at [facility] Right: Chest CR BARD : PERIPHERAL VASCULAR [id number] 07/08/2024 [id number] / / [id number] documented as of this encounter Advance Directives [...] Power of Attor johann? No Care Teams Manufacturing Supervisor Relationship Specialty Start Date End Date Lina Can MD [address] [place] [address] [place] [address] PCP - General Family Medicine 08/06/22 documented as of this encounter
--- OUTSIDE RECORDS SUMMARY | 2024-05-09 12:30 | External Medical Summary | Summary of Care ---
Author Name Unknown Organization [facility] Address [address] [place] [address] Phone [phone] Care Team Providers Care Rock Loader Name Role Phone Lina Can MD Primary Care Prov ider Reason for Visit * Reason Comments Outpatient Testing Encounter Details Date Type Department Care Team (Late st Contact Info) Description 01/15/2024 9:30 AM EDT Laboratory Laboratory, [facility] [address] [place] [address] LongTerrance alva [facility] 132 [place] [address] Malignant neoplasm of sigmoid colon (HCC) Allergies [...] AM EDT Hem/Onc Treatment Hematology/Oncolog y Treatment, [place] [address] [place] [phone] Nasreen, Chair 8 Hem Onc Scene [address] [place] [address] 01/22/2024 11:00 AM EDT Office Visit Gynecology/Oncolog y, [place] [address] [place] [address] Jocelyn Vera PA-C [address] [place], [place] [phone] 02/06/2024 9:08 AM EDT Hospital Encounter OR [facility], Operating Room, [facility] - 4th Floor 400 [facility] [place] [address] Timoteo Ayala, DO [address] [place] [address] 02/06/2024 9:08 AM EDT - 02/06/2024 9:54 AM EDT Surgery OR [facility], Operating Room, [facility] - 4th Floor 400 [facility] [place] [phone] Timoteo Ayala, DO [address] [place] [address] COLONOSCOPY FLEXIBLE PROXIMAL DIAGNOSTIC 02/07/2024 8:00 AM EDT Office Visit Hematology/Oncolog y [facility] Nasreen [place] [address] [place] [address] Chandni Almonte MD [address] [place] [address] 04/11/2024 2:00 PM EST Office Visit Urology Ashlie Louise [address] [place] [address] [place] [phone] Manas Marie MD 27 [place] [address] Pending Results Name Type Priority Associated Diagnoses Date /Time MAGNESIUM Lab STAT Malignant neoplasm of sigmoid colon (HCC) 01/15/2024 8:32 AM EDT CBC WITH WBC DIFFERENTIAL Lab STAT Malignant neoplasm of sigmoid colon (HCC) 01/15/2024 8:32 AM EDT COMPREHENSIVE METABOLIC PANEL Lab STAT Malignant neoplasm of sigmoid colon (HCC) 01/15/2024 8:32 AM EDT CBC Lab STAT Malignant neoplasm of sigmoid colon (HCC) 01/15/2024 8:32 AM EDT DIFFERENTIAL, AUTOMATED Lab STAT Malignant neoplasm of sigmoid colon (HCC) 01/15/2024 8:32 AM EDT Scheduled Procedures Name Priority Associated [...] this encounter Medical Devices Implanted Type Area Computer Customer Support Specialist Device Identifier Shelf Expiration Date Model / Serial / Lot Power Port 8fr Sngl Lumen Plas - [id number] Implanted:Qty : 1 on 01/05/2023 by Jai Malcolm Jr., MD at OR [facility] Right: Chest CR BARD : PERIPHERAL VASCULAR [id number] 07/08/2024 [id number] / / [id number] documented as of this encounter Visit Diagnoses [...] Power of Attor johann? No Care Teams Rock Loader Relationship Specialty Start Date End Date Lina Can MD [address] [place] [address] [place] [phone] PCP - General Family Medicine 08/06/22 documented as of this encounter
--- OUTSIDE RECORDS SUMMARY | 2024-05-09 12:30 | External Medical Summary ---
Author Name Unknown Address Unknown Organization K0[facility]:LABORATORY [place] 57-10 - [address] [place] [address] Laboratory Report Ordering Provider Test Date Status DANNIELLE OLVERA 01/15/2024 08:32:41 Final Observation Date Value Abnormality Reference (Units ) Status BUN 01/15/2024 08:32:41 7 6-20 (mg/dL) Final Creatinine 01/15/2024 08:32:41 0.6 0.5-1.0 (mg/dL) Final Glomerular filtration rate/1.73 sq M.predicted [Volume Rate/Area] in Serum, Plasma or Blood by Creatinine-based formula (CKD-EPI) 01/15/2024 08:32:41 >90 >=60 (mL/min) Final eGFR is calculated based on the CKD-EPI 2020 equation. Sodium 01/15/2024 08:32:41 134 Below low normal 135 -146 (mmol/L) Final Potassium 01/15/2024 08:32:41 4.2 3.5-5.1 (m mol/L) Final Cl 01/15/2024 08:32:41 97 Below low normal 98- 107 (mmol/L) Final CO2 01/15/2024 08:32:41 25 22-32 (mmo l/L) Final Anion gap 01/15/2024 08:32:41 12 7-15 (mmol /L) Final Glucose 01/15/2024 08:32:41 106 70-120 (mg /dL) Final Albumin 01/15/2024 08:32:41 4.3 3.8-5.0 (g /dL) Final AST (Aspartate aminotransferase) 01/15/2024 08:32:41 23 10-35 (U/L) Fin al Alk Phos 01/15/2024 08:32:41 193 Above high normal 35 -130 (U/L) Final Bilirubin, Total 01/15/2024 08:32:41 0.6 <=1 .2 (mg/dL) Final Calcium 01/15/2024 08:32:41 9.9 8.4-10.2 ( mg/dL) Final Protein 01/15/2024 08:32:41 8.0 6.0-8.3 (g /dL) Final ALT (Alanine aminotransferase) 01/15/2024 08:32:41 8 Below low normal 10-35 (U/L) Final Performing Location LABORATORY [facility] 57-1 0 - [address] [facility] [address]
--- OUTSIDE RECORDS SUMMARY | 2024-05-09 12:30 | External Medical Summary ---
Author Name Unknown Address Unknown Organization K0G:LABORATORY [facility] [place] 57-10 - [address] [place] [address] Laboratory Report Ordering Provider Test Date Status DANNIELLE OLVERA 01/15/2024 08:32:41 Final Observation Date Value Abnormality Reference (Units ) Status WBC, Total 01/15/2024 08:32:41 4.56 4.00-10.8 0 (K/uL) Final RBC 01/15/2024 08:32:41 3.91 3.85-5.15 (M/uL) Final Hemoglobin 01/15/2024 08:32:41 12.0 12.0-15.3 (g/dL) Final HCT 01/15/2024 08:32:41 36.1 36.0-45.2 (%) Final MCV 01/15/2024 08:32:41 92.3 81.5-97.5 (fL) Final MCH 01/15/2024 08:32:41 30.7 27.0-34.0 (pg) Final MCHC 01/15/2024 08:32:41 33.2 32.0-36.0 (g/dL) Final RDW 01/15/2024 08:32:41 18.6 11.5-15.5 (%) Final Platelets 01/15/2024 08:32:41 174 140-400 (K /uL) Final MPV 01/15/2024 08:32:41 8.9 6.6-11.1 ( fL) Final Performing Location LABORATORY [facility] [place] 57-1 0 - [address] [place] [address]
--- OUTSIDE RECORDS SUMMARY | 2024-05-09 12:30 | External Medical Summary | Summary of Care ---
Author Name Unknown Organization [facility] Address [address] [place] [address] Phone [phone] Care Team Providers Care Community Health Education Coordinator Name Role Phone Lina Can MD Primary Care Prov ider Reason for Visit * Reason Comments Outpatient Testing Encounter Details Date Type Department Care Team (Late st Contact Info) Description 01/15/2024 9:30 AM EDT Laboratory Laboratory, [facility] [address] [place] [address] LongTerrance alva [facility] 132 [place] [address] Malignant neoplasm of sigmoid colon (HCC) Allergies [...] AM EDT Hem/Onc Treatment Hematology/Oncolog y Treatment, [place] [address] [place] [phone] Nasreen, Chair 8 Hem Onc Scene [address] [place] [address] 01/22/2024 11:00 AM EDT Office Visit Gynecology/Oncolog y, [place] [address] [place] [address] Jocelyn Vera PA-C [address] [place], [place] [address] 589 02/06/2024 9:08 AM EDT Hospital Encounter OR [facility], Operating Room, [facility] - 4th Floor 400 [facility] [place] [address] Timoteo Ayala, DO [address] [place] [address] 02/06/2024 9:08 AM EDT - 02/06/2024 9:54 AM EDT Surgery OR [facility], Operating Room, [facility] - 4th Floor 400 [facility] [place] [phone] Timoteo Ayala, DO [address] [place] [address] COLONOSCOPY FLEXIBLE PROXIMAL DIAGNOSTIC 02/07/2024 8:00 AM EDT Office Visit Hematology/Oncolog y [facility] Nasreen [place] [address] [place] [address] Chandni Almonte MD [address] [place] [address] 04/11/2024 2:00 PM EST Office Visit Urology [place] [address] [place] [address] Manas Marie MD 27 [place] [address] Pending Results Name Type Priority Associated Diagnoses [...] this encounter Medical Devices Implanted Type Area Nail Mill Worker Device Identifier Shelf Expiration Date Model / Serial / Lot Power Port 8fr Sngl Lumen Plas - [id number] Implanted:Qty : 1 on 01/05/2023 by Jai Malcolm Jr., MD at OR [facility] Right: Chest CR BARD : PERIPHERAL VASCULAR [id number] 07/08/2024 [id number] / / [id number] documented as of this encounter Procedures Procedure [...] LAB BLOOD ORDERA BLES Performing Organization Address City/State/[facility] Co de Phone Number LABORATORY [facility]IA [place] [id number] [place] [address] * CBC (01/15/2024 8:32 AM EDT) WBC [...] [place] 57-10 [address] [place] [address] documented in this encounter Visit Diagnoses Diagnosis [...] of Attor johann? No Care Teams Community Health Education Coordinator Relationship Specialty Start Date End Date Lina Can MD [address] [place] [address] [place] [address] PCP - General Family Medicine 08/06/22 documented as of this encounter
--- OUTSIDE RECORDS SUMMARY | 2024-05-09 12:30 | External Medical Summary ---
Author Name Unknown Address Unknown Organization K01:[facility] - [address] [place] [address] Laboratory Report Ordering Provider Test Date Status DANNIELLE OLVERA 01/15/2024 08:32:41 Final Observation Date Value Abnormality Reference (Units ) Status Magnesium 01/15/2024 08:32:41 2.2 1.5-2.6 (m g/dL) Final Performing Location [facility] - [address] [place] [address]
--- OUTSIDE RECORDS SUMMARY | 2024-05-09 12:30 | External Medical Summary | Summary of Care ---
Author Name Unknown Organization [facility] Address [address] [place] [address] Phone [phone] Care Team Providers Care Tassel Snipper Name Role Phone Lina Can MD Primary Care Prov ider Reason for Visit * Reason Onset Date Comments Medication Pre-auth 01/09/2024 Udenyca Precert Approved 01/09/2024 Encounter Details Date Type Department Care Team (Late st Contact Info) Description 01/09/2024 Telephone Hematology/Oncology [facility] [address] [place] [address] Heriberto Wiley MD [address] [facility] [address] Medication Pre-auth (Udenyca); Precert Mina... Allergies Active [...] auth end date: 07/12/2024 Rx Insurance Info: [facility] [place] Reference #: [id number] Thank you, Samantha Gonzalez Medication Audio Video Repairer III 01/15/2024, 3:37 PM * Telephone Encounter - Samantha Gonzalez OSA - 01/12/2024 1:19 PM EDT [facility] Authorization Submission Submission Information: Medication: UDENYCA 6 MG/0.6 ML SYRINGE Portal used: PromptPA Insurance: [facility] Authorization #/Santos: [id number] Thank you, Samantha Gonzalez Medication Audio Video Repairer III 01/12/2024, 1:19 PM * Telephone Encounter - [place] Calvin kier drier - 01/09/2024 12:31 PM EDT New or re-auth: re-auth (restart) Patient Nyasia Hdez needs a prior authorization for a medication through their [facility] insurance. Medication: Udenyca Formulation: 6mg/0.6mL prefilled syringe Dosage: 1.2mL for 28ds ID: [id number] BIN:[id number] PCN:nvtd Target ship date is n/a. Thank you very much, Sigrid Calvin Washer Off, [facility] 01/09/2024 12:32 PM documented in this encounter Plan of Treatment Upcoming Encounters Date Type Department Care Team (Late st Contact Info) Description 01/16/2024 11:30 AM EDT Hem/Onc Treatment Hematology/Oncolo gy Treatment, [place] [address] [facility] [place] [address] Nasreen, Chair 8 Hem Onc Scenery [address] [place] [address] Encounter for antineoplastic chemotherapy*; Malignant neoplasm of sigmoid colon (HCC) 01/22/2024 11:00 AM EDT Office Visit Gynecology/Oncolo gy, [place] [address] [place] [address] Jocelyn Vera PA-C [address] [place] [address] 02/06/2024 9:08 AM EDT Hospital Encounter OR [facility], Operating Room, [facility] - 4th Floor [address] [place] [phone] Timoteo Ayala, DO [address] [place] [address] 02/06/2024 9:08 AM EDT - 02/06/2024 9:54 AM EDT Surgery OR [facility], Operating Room, [facility] Floor [address] [place] [phone] Timoteo Ayala DO [address] [place] [address] COLONOSCOPY FLEXIBLE PROXIMAL DIAGNOSTIC 02/07/2024 8:00 AM EDT Office Visit Hematology/Oncolo gy [facility] Nasreen [place] 200 [facility] [place] [phone] Chandni Almonte MD [address] [place] [address] 04/11/2024 2:00 PM EST Office Visit Urology Ashlie [place] [address] [place] [address] Manas Marie MD 27 [place] [phone] Scheduled Procedures Name Priority Associated Diagnoses Date/Ti [...] this encounter Medical Devices Implanted Type Area Chief Compressor Station Engineer Device Identifier Shelf Expiration Date Model / Serial / Lot Power Port 8fr Sngl Lumen Plas - [id number] Implanted:Qty : 1 on 01/05/2023 by Jai Malcolm Jr., MD at OR [facility] Right: Chest CR BARD : PERIPHERAL VASCULAR [id number] 07/08/2024 [id number] / / [id number] documented as of this encounter Advance Directives [...] Power of Attor johann? No Care Teams Tassel Snipper Relationship Specialty Start Date End Date Lina Can MD [address] [place] [address] [place] [phone] PCP - General Family Medicine 08/06/22 documented as of this encounter
--- OUTSIDE RECORDS SUMMARY | 2024-05-09 12:30 | External Medical Summary | Summary of Care ---
Author Name Unknown Organization [facility] Address [address] [place] [address] Phone [phone] Care Team Providers Care Cardiology Clinical Consultant Name Role Phone Lina Can MD Primary Care Prov ider Reason for Visit * Reason Onset Date Comments Medication Pre-auth 01/09/2024 Udenyca Precert Approved 01/09/2024 Encounter Details Date Type Department Care Team (Late st Contact Info) Description 01/09/2024 Telephone Hematology/Oncology [facility] [address] [place] [address] Heriberto Wiley MD [address] [facility] [address] Medication Pre-auth (Udenyca); Precert Mina... Allergies Active [...] Gonzalez OSA - 01/12/2024 1:19 PM EDT [facility] Authorization Submission Submission Information: Medication: UDENYCA 6 MG/0.6 ML SYRINGE [facility]: [facility] Authorization #/Santos: [id number] Thank you, Samantha Gonzalez Medication Nib Assembler III 01/12/2024, 1:19 PM * Telephone Encounter - [place] Calvin, professor of biology - 01/09/2024 12:31 PM EDT New or re-auth: re-auth (restart) Patient Nyasia Hdez needs a prior authorization for a medication through their [facility] insurance. Medication: Udenyca Formulation: 6mg/0.6mL prefilled syringe Dosage: 1.2mL for 28ds ID: [id number] BIN:[id number] PCN:nvtd Target ship date is n/a. Thank you very much, Sigrid Calvin Club Car Attendant, [facility] 01/09/2024 12:32 PM documented in this encounter Plan of Treatment Upcoming Encounters Date Type Department Care Team (Late st Contact Info) Description 01/16/2024 11:30 AM EDT Hem/Onc Treatment Hematology/Oncolo gy Treatment, [place] [address] [place] [address] Nasreen, Chair 8 Hem Onc [facility] [address] [place] [address] Encounter for antineoplastic chemotherapy*; Malignant neoplasm of sigmoid colon (HCC) 01/22/2024 11:00 AM EDT Office Visit Gynecology/Oncolo gy, [place] [address] [place] [address] Jocelyn Vera PA-C [address] [place] [address] 02/06/2024 9:08 AM EDT Hospital Encounter [facility], Operating Room, [facility] - 4th Floor 400 [place] [address] Timoteo Ayala DO [address] [place] [address] 02/06/2024 9:08 AM EDT - 02/06/2024 9:54 AM EDT Surgery OR [facility], Operating Room, [facility] - 4th Floor 400 [facility] [place] [address] Timoteo Ayala, DO [address] [place] [address] COLONOSCOPY FLEXIBLE PROXIMAL DIAGNOSTIC 02/07/2024 8:00 AM EDT Office Visit Hematology/Oncolo gy [facility] [place] [place] [address] [place] [phone] Chandni Almonte MD [address] [place] [address] 04/11/2024 2:00 PM EST Office Visit Urology [place] [address] [place] [address] Manas Marie MD [address] [place] [address] Scheduled Procedures Name Priority Associated Diagnoses Date/Ti [...] this encounter Medical Devices Implanted Type Area Unit Control Worker Device Identifier Shelf Expiration Date Model / Serial / Lot Power Port 8fr Sngl Lumen Plas - [id number] Implanted:Qty : 1 on 01/05/2023 by Jai Malcolm Jr., MD at [facility] Right: Chest CR BARD : PERIPHERAL VASCULAR [id number] 07/08/2024 [id number] / / [id number] documented as of this encounter Advance Directives [...] Power of Attor johann? No Care Teams Cardiology Clinical Consultant Relationship Specialty Start Date End Date Lina Can MD [address] [place] [address] [place] [address] PCP - General Family Medicine 08/06/22 documented as of this encounter
--- OUTSIDE RECORDS SUMMARY | 2024-05-09 12:30 | External Medical Summary | Summary of Care ---
Author Name Unknown Organization [facility] Address [address] [place] [address] Phone [phone] Care Team Providers Care Launch Manager Name Role Phone Lina Can MD Primary Care Prov ider Reason for Visit * Reason Comments Chemotherapy C2 D1 Zirabev/Folfir i * Episode Based Medications (Routine) - Authorized Specialty Diagnoses / Procedures Referred By Contac t Referred To Contact Diagnoses Encounter for antineoplastic chemotherapy Malignant neoplasm of sigmoid colon (HCC) Procedures GA LEUCOVORIN CALCIUM INJECTION GA PALONOSETRON HCL GA FLUOROURACIL INJECTION GA IRINOTECAN INJECTION GA INJ., ZIRABEV, 10 MG Chandni Almonte MD 200 [place] [address] Anc Hem/Onc [address] [address] Referral ID Status Reason Start Date Expiration Date V isits Requested Visits Authorized [id number] Authorized 11/22/2023 11/21/2024 999 999 Encounter Details Date Type Department Care Team (Latest Contact Info) Description 01/16/2024 11:30 AM EDT Hem/Onc Treatment Hematology/Oncolog y Treatment, [address] [address] Chair Nasreen [address] [place] [address] Encounter for antineoplastic chemotherapy*; Malignant neoplasm of [...] PM EDT Immunization/Injec tion Hematology/Oncolog y Treatment, [place] [address] [place] [phone] Nasreen, 8 Hem Onc Scenery [address] [place] [address] 01/22/2024 11:00 AM EDT Office Visit Gynecology/Oncolog y, [place] [address] [place] [address] Jocelyn Vera PA-C [address] [place] [address] 01/29/2024 10:00 AM EDT Laboratory Laboratory, [facility] [place] [phone] [facility] [address] [place] [address] 01/30/2024 11:30 AM EDT Hem/Onc Treatment Hematology/Oncolog y Treatment, [place] [address] [place] [phone] Nasreen, Chair 2 Hem Onc [facility] 200 [facility] [place] [address] 02/06/2024 9:08 AM EDT Hospital Encounter [facility], Operating Room, [facility] - 4th Floor 400 [place] [address] Timoteo Ayala DO [address] [place] [address] 02/06/2024 9:08 AM EDT - 02/06/2024 9:54 AM EDT Surgery OR [facility], Operating Room, [facility] - 4th Floor [address] [place] [address] Timoteo Ayala DO [address] [place] [facility] [place] [address] COLONOSCOPY FLEXIBLE PROXIMAL DIAGNOSTIC 02/13/2024 8:30 AM EST Office Visit Hematology/Oncolog y [facility] [place] [address] [place] [phone] Alisia [place] CRNP 400 [facility] [place] [address] 04/11/2024 2:00 PM EST Office Visit Urology [place] [address] [place] [phone] Manas Marie MD 27 [place] [address] Scheduled Procedures Name Priority Associated Diagnoses Date/Ti [...] this encounter Medical Devices Implanted Type Area Checkout Supervisor Device Identifier Shelf Expiration Date Model / Serial / Lot Power Port 8fr Sngl Lumen Plas - [id number] Implanted:Qty : 1 on 01/05/2023 by Jai Malcolm Jr., MD at OR [facility] Right: Chest CR BARD : PERIPHERAL VASCULAR [id number] 07/08/2024 [id number] / / [id number] documented as of this encounter Visit Diagnoses [...] at 1245, For 1 dose, Restricted per [facility] antiemetic guidelines Given 01/16/2024 12:32 PM EDT [...] Power of Attor johann? No Care Teams Launch Manager Relationship Specialty Start Date End Date Lina Can MD [address] [place] [address] [place] [phone] PCP - General Family Medicine 08/06/22 documented as of this encounter
--- OUTSIDE RECORDS SUMMARY | 2024-05-09 12:30 | External Medical Summary ---
Author Name Unknown Address Unknown Organization K0G:LABORATORY [place] 57-10 - [address] [place] [address] Laboratory Report Ordering Provider Test Date Status DANNIELLE OLVERA 01/15/2024 08:32:41 Final Observation Date Value Abnormality Reference (Units ) Status SYNC LEUKOCYTES IN BLOOD BY AUTOMATED COUNT 01/15/2024 08:32:41 4.56 4.00-10.80 (K/uL) Final Segs 01/15/2024 08:32:41 60.9 40.0-75.0 (%) Final Lymphs % 01/15/2024 08:32:41 25.2 18.0-42.0 (%) Final Monos 01/15/2024 08:32:41 11.4 Above high normal 1.0-11.0 (%) Final Eosinophils 01/15/2024 08:32:41 1.8 0.0-6.0 (%) Final Basos 01/15/2024 08:32:41 0.7 0.0-2.0 (%) Final Absolute Segs 01/15/2024 08:32:41 2.78 1.80-7.70 (K/uL) Final Lymphs, absolute 01/15/2024 08:32:41 1.15 1.00-4.80 (K/ul) Final Monos, Abs 01/15/2024 08:32:41 0.52 0.00-1.10 (K/uL) Final Eos, Abs 01/15/2024 08:32:41 0.08 0.00-0.70 (K/uL) Final Basos, Abs 01/15/2024 08:32:41 0.03 0.00-0.20 (K/uL) Final Performing Location LABORATORY [place] 57-1 0 - [address] [place] [address]
--- OUTSIDE RECORDS SUMMARY | 2024-05-09 12:30 | External Medical Summary ---
Author Name Unknown Address Unknown Organization K0G:LABORATORY [place] 57-10 [address] [facility] [address] [facility] [address] Laboratory Report Ordering Provider Test Date Status DANNIELLE OLVERA 01/15/2024 09:29:08 Final Observation Date Value Abnormality Reference (Units ) Status RBC, Urine 01/15/2024 09:29:08 0-2 0-2 (/HPF) Final WBC, Urine 01/15/2024 09:29:08 0-2 0-2 (/HPF) Final Bacteria [#/area] in Urine sediment by Microscopy high power field 01/15/2024 09:29:08 0-25 0-25 (/HPF) Final Performing Location LABORATORY [place] 57-[address] [facility] [address]
--- OUTSIDE RECORDS SUMMARY | 2024-05-09 12:31 | External Medical Summary | Summary of Care ---
Author Name Unknown Organization [facility] Address [address] [place] [address] Phone [phone] Care Team Providers Care Insurance Coordinator Name Role Phone Lina Can MD Primary Care Prov ider Reason for Visit * Reason Onset Date Comments Test Results Lab 01/08/2024 Encounter Details Date Type Department Care Team (Late st Contact Info) Description 01/08/2024 Refill Hematology/Oncology [facility] Nasreen [place] [address] [facility] [place] [address] Chandni Almonte MD [address] [place] [address] Malignant neoplasm of sigmoid colon (HCC)*; Metastasis to bone (HCC); Chemotherapy-induced neutropenia (HCC) Allergies Active Allergy Reactions Criticality Noted Date Comments Amoxicillin-Pot Clavulanate 07/13/19 23 GI upset Doxycycline 07/12/2022 GI upset Oxaliplatin Flushing High 07/27/2023 Shortness of breath Metoclopramide Hives 08/10/2022 documented as of this encounter (statuses as of 01/08/2024) Medications Medication Sig Dispensed Refills Start Date [...] as of this encounter (statuses as of 01/08/2024) Active Problems Problem Noted Date Diagnosed Date [...] as of this encounter (statuses as of 01/08/2024) Immunizations No known immunizationsdocumented as of this [...] as of this encounter Miscellaneous Notes * Addendum Note - Saud Gray RN - 01/08/2024 1:14 PM EDTAddended by: SAUD GRAY on: 01/08/2024 01:14 PM Modules accepted: Orders * Telephone Encounter - Saud Gray RN - 01/08/2024 12:58 PM EDT Called patient. The udenyca that she has at home expires 06/2025- she will be able to use this next week. Dr Wiley: can you please sign new rx for udenyca? * Addendum Note - Zackery Wiley MD - 01/08/2024 12:49 PM EDTAddended by: ZACKERY WILEY on: 01/08/2024 12:49 PM Modules accepted: Orders * Telephone Encounter - Zackery Wiley MD - 01/08/2024 12:48 PM EDT Blood workup done on 01/08/2024: -WBC 2400, Hemoglobin and hematocrit -11.2/33.6, Platelet count 149036, ANC 820. She is a case of metastatic colon cancer. Last chemotherapy with FOLFIRI and Bevacizumab received on 12/19/2023. Earlier she received modified FOLFOX 6 between 01/2023 -06/2023. Now ANC is around 820. Will not be able to continue chemotherapy as we planned because of low ANC as well as thrombocytopenia. Would like to give her prophylactic Pegfilgrastim as she is at high-risk for febrile neutropenia and would like to proceed with the chemotherapy treatment as we planned every 2 weekly. * Telephone Encounter - Glo Drake OSA - 01/08/2024 11:57 AM EDT Apt is scheduled and pt is aware Tx is canceled for tomorrow * Telephone Encounter - Saud Gray RN - 01/08/2024 11:37 AM EDT ANC 0.82 Reviewed with Alisia- treatment should be held x1 additional week. Called patient, she verbalized understanding. Patient states that when she was on chemo before she gave herself udenyca on day 4. Still has one injection left at home. Would like to know if udenyca should be added after subsequent treatments. Dr Wiley/ Alisia: please advise- should we order udenyca for day 4 now? Or do you want to see whather labs look like next week and then decide (since she already has it at home)? Scheduling: please call patient to reschedule treatment from tomorrow to 01/15. Patient will need repeat labs "CBCd, CMP, urine" at in AM the day prior. Thanks! documented in this encounter Plan of Treatment Upcoming Encounters Date Type Department Care Team (Late st Contact Info) Description 01/15/2024 9:30 AM EDT Laboratory [facility] [phone] [facility] [address] [facility] [address] 01/16/2024 11:30 AM EDT Hem/Onc Treatment Hematology/Oncolog y Treatment, [place] [address] [place] [phone] Nasreen Chair [address] Hem On[address] [place] [address] 01/22/2024 11:00 AM EDT Office Visit Gynecology/Oncolog y, [place] [address] [place] [address] Jocelyn Vera PA-C [address] [place] [address] 02/06/2024 9:08 AM EDT Hospital Encounter OR [facility], Operating Room, [facility] - 4th Floor [address] [place] [phone] Timoteo Ayala, DO [address] [facility] [place] [address] 02/06/2024 9:08 AM EDT - 02/06/2024 9:54 AM EDT Surgery OR [facility], Operating Room, [facility] - 4th Floor [address] [place] [phone] Timoteo Ayala DO [address] [facility] [place] [phone] COLONOSCOPY FLEXIBLE PROXIMAL DIAGNOSTIC 02/07/2024 8:00 AM EDT Office Visit Hematology/Oncolog y [employer] [address] [facility] [place] [address] Chandni Almonte MD [address] [place] [address] 04/11/2024 2:00 PM EST Office Visit Urology Ashlie Louise [address] [place] [address] Manas Marie MD 27 [place] [phone] Scheduled Procedures Name Priority Associated Diagnoses Date/Ti [...] this encounter Medical Devices Implanted Type Area Early Years Teacher Device Identifier Shelf Expiration Date Model / Serial / Lot Power Port 8fr Sngl Lumen Plas - [id number] Implanted:Qty : 1 on 01/05/2023 by Jai Malcolm Jr., MD at [facility] Right: Chest CR BARD : PERIPHERAL VASCULAR [id number] 07/08/2024 [id number] / / [id number] documented as of this encounter Visit Diagnoses Diagnosis Malignant neoplasm of sigmoid colon (HCC)- Primary Malignant neoplasm of sigmoid colon Metastasis to bone (HCC) Secondary malignant neoplasm of bone and bone marrow Chemotherapy-induced neutropenia (HCC) Drug induced neutropenia Cancer of sigmoid colon (HCC) Malignant [...] of Attor johann? No Care Teams Insurance Coordinator Relationship Specialty Start Date End Date Lina Can MD [address] [place] [address] [place] [address] PCP - General Family Medicine 08/06/22 documented as of this encounter
--- OUTSIDE RECORDS SUMMARY | 2024-05-09 12:31 | External Medical Summary | Summary of Care ---
Author Name Unknown Organization [facility] Address [address] [place] [address] Phone [phone] Care Team Providers Care Cigarette Maker Name Role Phone Lina Can MD Primary Care Prov ider Reason for Visit * Reason Comments Outpatient Testing Encounter Details Date Type Department Care Team (Late st Contact Info) Description 01/01/2024 9:00 AM EDT Laboratory Laboratory, [facility] 132 [facility] [address] [facility] 132 [place] [address] Malignant neoplasm of sigmoid colon (HCC) Allergies Active Allergy Reactions Criticality Noted Date Comments Amoxicillin-Pot Clavulanate 07/13/19 GI upset Doxycycline 07/12/2022 GI upset Oxaliplatin Flushing High 07/27/2023 Shortness of breath Metoclopramide Hives 08/10/2022 documented as of this encounter (statuses as of 01/01/2024) Medications Medication Sig Dispensed Refills Start Date [...] as of this encounter (statuses as of 01/01/2024) Active Problems Problem Noted Date Diagnosed Date [...] as of this encounter (statuses as of 01/01/2024) Immunizations No known immunizationsdocumented as of this [...] Care Team (Late st Contact Info) Description 01/02/2024 9:15 AM EDT Office Visit Hematology/Oncolog y [place] 200 [facility] [place] [address] Chandni Almonte MD 200 [facility] [place] [address] 01/02/2024 9:45 AM EDT Hem/Onc Treatment Hematology/Oncolog y Treatment, [place] [address] [place] [address] 01/03/2024 10:30 AM EDT Cardiac Studies Cardiac Studies [address] [place] [address] 01/22/2024 11:00 AM EDT Office Visit Gynecology/Oncolog y, [place] [address] [place] [address] Jocelyn Vera PA-C [address] [place] [facility] [place] [address] 02/06/2024 9:08 AM EDT Hospital Encounter OR [facility], Operating Room, [facility] - 4th Floor 400 [facility] [place] [address] Timoteo Ayala, DO [address] [place] [address] 02/06/2024 9:08 AM EDT - 02/06/2024 9:54 AM EDT Surgery OR [facility], Operating Room, [facility] - 4th Floor 400 [facility] [place] [address] Timoteo Ayala, DO [address] [place] [address] COLONOSCOPY FLEXIBLE PROXIMAL DIAGNOSTIC 04/11/2024 2:00 PM EST Office Visit Urology Ashlie Louise [address] [place] [address] Manas Marie MD [address] [place] [address] Pending Results Name Type Priority Associated Diagnoses Date /Time MAGNESIUM Lab STAT Malignant neoplasm of sigmoid colon (HCC) 01/01/2024 8:34 AM EDT CBC WITH WBC DIFFERENTIAL Lab STAT Malignant neoplasm of sigmoid colon (HCC) 01/01/2024 8:34 AM EDT COMPREHENSIVE METABOLIC PANEL Lab STAT Malignant neoplasm of sigmoid colon (HCC) 01/01/2024 8:34 AM EDT CBC Lab STAT Malignant neoplasm of sigmoid colon (HCC) 01/01/2024 8:34 AM EDT DIFFERENTIAL, AUTOMATED Lab STAT Malignant neoplasm of sigmoid colon (HCC) 01/01/2024 8:34 AM EDT URINALYSIS, REFLEX TO MICROSCOPIC Lab STAT Malignant neoplasm of sigmoid colon (HCC) 01/01/2024 8:52 AM EDT Scheduled Procedures Name Priority Associated [...] this encounter Medical Devices Implanted Type Area Pattern Chart Writer Device Identifier Shelf Expiration Date Model / Serial / Lot Power Port 8fr Sngl Lumen Plas - [id number] Implanted:Qty : 1 on 01/05/2023 by Jai Malcolm Jr., MD at OR [facility] Right: Chest CR BARD : PERIPHERAL VASCULAR [id number] 07/08/2024 [id number] / / [id number] documented as of this encounter Visit Diagnoses [...] of Attor johann? No Care Teams Cigarette Maker Relationship Specialty Start Date End Date Lina Can MD [address] [place] [address] [place] [address] PCP - General Family Medicine 08/06/22 documented as of this encounter
--- OUTSIDE RECORDS SUMMARY | 2024-05-09 12:31 | External Medical Summary ---
Author Name Unknown Address Unknown Organization K[facility] - [address] [place] [address] Laboratory Report Ordering Provider Test Date Status DANNIELLE OLVERA 01/01/2024 08:34:37 Final Observation Date Value Abnormality Reference (Units ) Status Magnesium 01/01/2024 08:34:37 2.0 1.5-2.6 (m g/dL) Final Performing Location [facility] - [address] [place] [address]
--- OUTSIDE RECORDS SUMMARY | 2024-05-09 12:31 | External Medical Summary | Summary of Care ---
Author Name Unknown Organization [facility] Address [address] [place] [address] Phone [phone] Care Team Providers Care Marine Equipment Test Engineer Name Role Phone Lina Can MD Primary Care Prov ider Reason for Visit * Reason Onset Date Comments Test Results Lab 01/01/2024 Encounter Details Date Type Department Care Team (Late st Contact Info) Description 01/01/2024 Telephone Hematology/Oncology Treatment, [place] [address] [facility] [place] [address] Chandni Almonte MD [address] [place] [address] Test Results Lab Allergies Active Allergy Reactions Criticality Noted Date [...] Telephone Encounter - Glo Drake OSA - 01/01/2024 12:07 PM EDT Apts scheduled Only time kelvin Monday was at 1230 Will give pt appts tomorrow when she comes in * Telephone Encounter - Tereza Gray RN - 01/01/2024 10:49 [address] EDT [address], ANC 1.16. Per Dr Almonte, delay treatment x1 week. Called patient, she verbalized understanding. Will still come for follow up appt with Dr Almonte tomorrow at 9:15am. Scheduling: please move treatment appt from tomorrow to next week (can be Monday or Monday, butpatient preferences Monday mornings). She will need labs "CBCd, CMP, urine" the day prior to treatment in AM at . Can give patient appts when she comes tomorrow to see Dr Almonte. Thanks! documented in this encounter Plan of Treatment Upcoming Encounters Date Type Department Care Team (Late st Contact Info) Description 01/02/2024 9:15 AM EDT Office Visit Hematology/Oncolog y [facility] Nasreen [place] [address] [place] [address] Chandni Almonte MD [address] [place] [address] 01/03/2024 10:30 AM EDT Cardiac Studies Cardiac Studies [address] [place] [address] 01/08/2024 10:00 AM EDT Laboratory Laboratory, [facility] [phone] [facility] 132 [facility] [address] 01/09/2024 12:30 PM EDT Hem/Onc Treatment Hematology/Oncolog y Treatment, [place] [address] [place] [phone] Nasreen, Chair [address] Hem Onc [address] [facility] [place] [address] 01/22/2024 11:00 AM EDT Office Visit Gynecology/Oncolog y, [place] [address] [place] [address] Jocelyn Vera PA-C [address] [place] [address] 02/06/2024 9:08 AM EDT Hospital Encounter OR [facility], Operating Room, [facility] - 4th Floor [address] [place] [address] Timoteo Ayala, DO [address] [place] [address] 02/06/2024 9:08 AM EDT - 02/06/2024 9:54 AM EDT Surgery OR [facility], Operating Room, [facility] - 4th Floor 400 [facility] [address] Timoteo Ayala, DO [address] [place] [address] COLONOSCOPY FLEXIBLE PROXIMAL DIAGNOSTIC 04/11/2024 2:00 PM EST Office Visit Urology Ashlie Louise [address] [place] [address] Manas Marie MD 27 [place] [phone] Scheduled Procedures Name Priority Associated Diagnoses Date/Ti [...] this encounter Medical Devices Implanted Type Area Unloader Operator Device Identifier Shelf Expiration Date Model / Serial / Lot Power Port 8fr Sngl Lumen Plas - [id number] Implanted:Qty : 1 on 01/05/2023 by Jai Malcolm Jr., MD at [facility] Right: Chest CR BARD : PERIPHERAL VASCULAR [id number] 07/08/2024 [id number] / / [id number] documented as of this encounter Advance Directives [...] Power of Attor johann? No Care Teams Marine Equipment Test Engineer Relationship Specialty Start Date End Date Lina Can MD [address] [place] [address] [place] [address] PCP - General Family Medicine 08/06/22 documented as of this encounter
--- OUTSIDE RECORDS SUMMARY | 2024-05-09 12:31 | External Medical Summary ---
Author Name Unknown Address Unknown Organization [facility] - [address] [place] [address] Laboratory Report Ordering Provider Test Date Status OLVERATCDANNIELLE 01/01/2024 08:34:37 Final Observation Date Value Abnormality Reference (Units ) Status Nucleated erythrocytes/100 leukocytes [Ratio] in Blood by Automated count 01/01/2024 08:34:37 Final Performing Location [facility] 0 - [address] [place] [address]
--- OUTSIDE RECORDS SUMMARY | 2024-05-09 12:31 | External Medical Summary | Summary of Care ---
Author Name Unknown Organization [facility] Address [address] [place] [address] Phone [phone] Care Team Providers Care Medical Equipment Technician Name Role Phone Lina Can MD Primary Care Prov ider Reason for Visit * Reason Comments Outpatient Testing Encounter Details Date Type Department Care Team (Late st Contact Info) Description 01/01/2024 9:00 AM EDT Laboratory Laboratory, [facility] 132 [place] [address] [facility] [address] [place] [address] Malignant neoplasm of sigmoid colon (HCC) Allergies [...] AM EDT Office Visit Hematology/Oncolog y [place] [address] [place] [address] Chandni Almonte MD [address] [place] [address] 01/02/2024 9:45 AM EDT Hem/Onc Treatment Hematology/Oncolog y Treatment, [place] [address] [place] [address] 01/03/2024 10:30 AM EDT Cardiac Studies Cardiac Studies [address] [place] [address] 01/22/2024 11:00 AM EDT Office Visit Gynecology/Oncolog y, [place] [address] [place] [address] Jocelyn Vera PA-C [address] [facility] [place] [address] 02/06/2024 9:08 AM EDT Hospital Encounter OR [facility], Operating Room, [facility] - 4th Floor 400 [facility] [place] [address] Timoteo Ayala, DO [address] [place] [address] 02/06/2024 9:08 AM EDT - 02/06/2024 9:54 AM EDT Surgery OR [facility], Operating Room, [facility] - 4th Floor [address] [facility] [place] [address] Timoteo Ayala, DO [address] [place] [address] COLONOSCOPY FLEXIBLE PROXIMAL DIAGNOSTIC 04/11/2024 2:00 PM EST Office Visit Urology Ashlie Louise [address] [place] [address] Manas Marie MD [address] [address] Pending Results Name Type Priority Associated Diagnoses [...] sigmoid colon (HCC) 01/01/2024 8:34 AM EDT Scheduled Procedures Name Priority Associated [...] this encounter Medical Devices Implanted Type Area Radiology Transcriptionist Device Identifier Shelf Expiration Date Model / Serial / Lot Power Port 8fr Sngl Lumen Plas - [id number] Implanted:Qty : 1 on 01/05/2023 by Jai Malcolm Jr., MD at [facility] Right: Chest CR BARD : PERIPHERAL VASCULAR [id number] 07/08/2024 [id number] / / [id number] documented as of this encounter Visit Diagnoses [...] Power of Attor johann? No Care Teams Medical Equipment Technician Relationship Specialty Start Date End Date Lina Can MD [address] [place] [address] [place] Patel [phone] PCP - General Family Medicine 08/06/22 documented as of this encounter
--- OUTSIDE RECORDS SUMMARY | 2024-05-09 12:31 | External Medical Summary ---
Author Name Unknown Address Unknown Organization [facility] - [address] [facility] [address] Laboratory Report Ordering Provider Test Date Status DANNIELLE OLVERA 01/08/2024 09:21:29 Final Observation Date Value Abnormality Reference (Units ) Status SYNC LEUKOCYTES IN BLOOD BY AUTOMATED COUNT 01/08/2024 09:21:29 2.45 Below low normal 4.00-10.80 (K/uL) Final Segs 01/08/2024 09:21:29 33.5 Below low normal 40.0-75.0 (%) Final Lymphs % 01/08/2024 09:21:29 46.1 Above high normal 18.0-42.0 (%) Final Monos 01/08/2024 09:21:29 13.9 Above high normal 1.0-11.0 (%) Final Eosinophils 01/08/2024 09:21:29 5.3 0.0-6.0 (%) Final Basos 01/08/2024 09:21:29 1.2 0.0-2.0 (%) Final Absolute Segs 01/08/2024 09:21:29 0.82 Below low normal 1.80-7.70 (K/uL) Final Lymphs, absolute 01/08/2024 09:21:29 1.13 1.00-4.80 (K/ul) Final Monos, Abs 01/08/2024 09:21:29 0.34 0.00-1.10 (K/uL) Final Eos, Abs 01/08/2024 09:21:29 0.13 0.00-0.70 (K/uL) Final Basos, Abs 01/08/2024 09:21:29 0.03 0.00-0.20 (K/uL) Final Performing Location [facility] 0 - [address] [place] [address]
--- OUTSIDE RECORDS SUMMARY | 2024-05-09 12:31 | External Medical Summary ---
Author Name Unknown Address Unknown Organization K0G:[facility] [place] [address] - [address] [place] [address] Laboratory Report Ordering Provider Test Date Status DANNIELLE OLVERA 01/01/2024 08:34:37 Final Observation Date Value Abnormality Reference (Units ) Status SYNC LEUKOCYTES IN BLOOD BY AUTOMATED COUNT 01/01/2024 08:34:37 2.67 Below low normal 4.00-10.80 (K/uL) Final Segs 01/01/2024 08:34:37 41.3 40.0-75.0 (%) Final Lymphs % 01/01/2024 08:34:37 44.1 Above high normal 18.0-42.0 (%) Final Monos 01/01/2024 08:34:37 5.7 1.0-11.0 (%) Final Eosinophils 01/01/2024 08:34:37 7.8 Above high normal 0.0-6.0 (%) Final Basos 01/01/2024 08:34:37 1.1 0.0-2.0 (%) Final Absolute Segs 01/01/2024 08:34:37 1.16 Below low normal 1.80-7.70 (K/uL) Final Lymphs, absolute 01/01/2024 08:34:37 1.24 1.00-4.80 (K/ul) Final Monos, Abs 01/01/2024 08:34:37 0.16 0.00-1.10 (K/uL) Final Eos, Abs 01/01/2024 08:34:37 0.22 0.00-0.70 (K/uL) Final Basos, Abs 01/01/2024 08:34:37 0.03 0.00-0.20 (K/uL) Final Performing Location [facility] 57-[address] 0 - [address] [place] [address]
--- OUTSIDE RECORDS SUMMARY | 2024-05-09 12:31 | External Medical Summary ---
Author Name Unknown Address Unknown Organization K0G:[facility] [place] 57-[address] - [address] [place] [address] Laboratory Report Ordering Provider Test Date Status DANNIELLE OLVERA 01/01/2024 08:34:37 Final Observation Date Value Abnormality Reference (Units ) Status WBC, Total 01/01/2024 08:34:37 2.67 Below low normal 4. 00-10.80 (K/uL) Final RBC 01/01/2024 08:34:37 3.99 3.85-5.15 (M/uL) Final Hemoglobin 01/01/2024 08:34:37 11.8 Below low normal 12 .0-15.3 (g/dL) Final HCT 01/01/2024 08:34:37 35.4 Below low normal 36. 0-45.2 (%) Final MCV 01/01/2024 08:34:37 88.7 81.5-97.5 (fL) Final MCH 01/01/2024 08:34:37 29.6 27.0-34.0 (pg) Final MCHC 01/01/2024 08:34:37 33.3 32.0-36.0 (g/dL) Final RDW 01/01/2024 08:34:37 16.3 11.5-15.5 (%) Final Platelets 01/01/2024 08:34:37 55 Below low normal 140 -400 (K/uL) Final Results rechecked.
null MPV 01/01/2024 08:34:37 10.1 6.6-11.1 ( fL) Final Performing Location [facility] [place] 57-[address] 0 - [address] [place] [address]
--- OUTSIDE RECORDS SUMMARY | 2024-05-09 12:31 | External Medical Summary ---
Author Name Unknown Address Unknown Organization K0G:[facility] [place] 57-[address] - [address] [place] [address] Laboratory Report Ordering Provider Test Date Status DANNIELLE OLVERA 01/01/2024 08:52:44 Final Observation Date Value Abnormality Reference (Units ) Status RBC, Urine 01/01/2024 08:52:44 3-5 Abnormal 0-2 (/HPF) Final WBC, Urine 01/01/2024 08:52:44 0-2 0-2 (/HPF) Final Bacteria [#/area] in Urine sediment by Microscopy high power field 01/01/2024 08:52:44 0-25 0-25 (/HPF) Final Performing Location [facility] [place] 57-[address] 0 - [address] [facility] [address]
--- OUTSIDE RECORDS SUMMARY | 2024-05-09 12:31 | External Medical Summary ---
Author Name Unknown Address Unknown Organization K01:[facility] - [address] [place] [address] Laboratory Report Ordering Provider Test Date Status DANNIELLE OLVERA 01/08/2024 09:21:29 Final Observation Date Value Abnormality Reference (Units ) Status Magnesium 01/08/2024 09:21:29 1.9 1.5-2.6 (m g/dL) Final Performing Location [facility] - [address] [place] [address]
--- OUTSIDE RECORDS SUMMARY | 2024-05-09 12:31 | External Medical Summary | Summary of Care ---
Author Name Unknown Organization [facility] Address [address] [place] [address] Phone [phone] Care Team Providers Care Lead Java Software Engineer Name Role Phone Lina Can MD Primary Care Prov ider Encounter Details Date Type Department Care Team (Late st Contact Info) Description 12/31/2023 Orders Only Hematology/Oncology Treatment, [facility] [address] [place] [address] Chandni Almonte MD [address] [place] [address] [phone] Allergies Active Allergy Reactions Criticality Noted Date Comments Amoxicillin-Pot Clavulanate 07/13/19 23 GI upset Doxycycline 07/12/2022 GI upset Oxaliplatin Flushing High 07/27/2023 Shortness of breath Metoclopramide Hives 08/10/2022 documented as of this encounter (statuses as of 12/31/2023) Medications Medication Sig Dispensed Refills Start Date [...] as of this encounter (statuses as of 12/31/2023) Active Problems Problem Noted Date Diagnosed Date [...] as of this encounter (statuses as of 12/31/2023) Immunizations No known immunizationsdocumented as of this [...] Description 01/01/2024 9:00 AM EDT Laboratory Laboratory, [facility] 132 [facility] [place] [phone] LongTerrance alva [facility] [address] [facility] [place] [address] 01/02/2024 9:15 AM EDT Office Visit Hematology/Oncolog y [facility] [place] [address] [place] [phone] Chandni Almonte MD [address] [place] [address] 01/02/2024 9:45 AM EDT Hem/Onc Treatment Hematology/Oncolog y [facility], [place] [address] [place] [phone] 01/03/2024 10:30 AM EDT Cardiac Studies Cardiac Studies [address] [place] [address] 01/22/2024 11:00 AM EDT Office Visit Gynecology/Oncolog y, [place] [address] [place] [address] Jocelyn Vera PA-C [address] [place] [address] 02/06/2024 9:08 AM EDT Hospital Encounter OR GL, Operating Room, [facility] - 4th Floor [address] [place] [address] Timoteo Ayala DO [address] [place] [address] 02/06/2024 9:08 AM EDT - 02/06/2024 9:54 AM EDT Surgery OR [facility], Operating Room, [facility] - 4th Floor [address] [place] [address] Timoteo Ayala DO [address] [place] [address] COLONOSCOPY FLEXIBLE PROXIMAL DIAGNOSTIC 04/11/2024 2:00 PM EST Office Visit Urology Ashlie Louise [address] [place] [address] Manas Marie MD [address] [place] [address] Scheduled Procedures Name Priority Associated Diagnoses Date/Ti [...] this encounter Medical Devices Implanted Type Area Storage Garage Attendant Device Identifier Shelf Expiration Date Model / Serial / Lot Power Port 8fr Sngl Lumen Plas - [id number] Implanted:Qty : 1 on 01/05/2023 by Jai Malcolm Jr., MD at OR [facility] Right: Chest CR BARD : PERIPHERAL VASCULAR [id number] 07/08/2024 [id number] / / [id number] documented as of this encounter Advance Directives [...] of Attor johann? No Care Teams Lead Java Software Engineer Relationship Specialty Start Date End Date Lina Can MD [address] [place] [address] [place] [address] PCP - General Family Medicine 08/06/22 documented as of this encounter
--- OUTSIDE RECORDS SUMMARY | 2024-05-09 12:31 | External Medical Summary | Summary of Care ---
Author Name Unknown Organization [facility] Address [address] [place] [address] Phone [phone] Care Team Providers Care Ground Crew Supervisor Name Role Phone Lina Can MD Primary Care Prov ider Reason for Visit * Reason Comments Follow Up Encounter Details Date Type Department Care Team (Late st Contact Info) Description 01/02/2024 9:15 AM EDT Office Visit Hematology/Oncology [facility] [place] 200 [facility] [place] [address] Chandni Almonte MD 200 [place] [address] Encounter for antineoplastic chemotherapy*; Malignant neoplasm of sigmoid colon (HCC) Allergies Active Allergy Reactions Criticality Noted Date Comments Amoxicillin-Pot Clavulanate 07/13/19 23 GI upset Doxycycline 07/12/2022 GI upset Oxaliplatin Flushing High 07/27/2023 Shortness of breath Metoclopramide Hives 08/10/2022 documented as of this encounter (statuses as of 01/02/2024) Medications Medication Sig Dispensed Refills Start Date [...] as of this encounter (statuses as of 01/02/2024) Active Problems Problem Noted Date Diagnosed Date [...] as of this encounter (statuses as of 01/02/2024) Immunizations No known immunizationsdocumented as of this [...] Sign Reading Time Taken Comments Blood Pressure 114/71 01/02/2024 9:09 AM EDT Pulse 88 01/02/2024 9:09 AM EDT Temperature 36.3 C (97.4 F) 01/02/2024 9:09 AM ED T Respiratory Rate - - Oxygen Saturation 98% 01/02/2024 9:09 AM EDT Inhaled Oxygen Concentration - - Weight 54.9 kg (121 lb) 01/02/2024 9:09 AM EDT Height - - Body Mass Index 22.86 11/15/2023 10:01 AM EDT documented in this [...] as of this encounter Progress Notes * Chandni Almonte MD - 01/02/2024 9:00 AM EDT Outpatient Consult Note Data Source: Patient, [facility] record. Data Source: Patient, Epic record. 01/02/2024 9:00 AM Nyasia Hernández Lemuel [id number] 68 year old Patient Encounter: HEMATOLOGY/ONCOLOGY [facility] Cancer Diagnosis: - Cancer of sigmoid, status post Robotic-assisted, laparoscopic low anterior resection with coloproctostomy. Patient has stage pT4 pN2 disease. - Now she developed metastatic disease. Current Treatment: On palliative chemotherapy FOLFIRI plus Avastin for metastatic disease. Previous Treatment: - Status post radiation therapy [...] received last chemo on07/25/2023. Oncologic History : 68-year-old female with history of breast cancer was [...] invasion of the mass into her uterus. Xray Tech onc was consulted intraoperatively and a ALEXA [...] nodes positive for carcinoma (5/15). - Stage: [id number]. D. Urinary bladder, biopsy: - Low-grade papillary [...] Small vessel Perineural Invasion Not identified Tumor Jackson Score Intermediate (5-9) Type of Polyp in [...] probability of MSI-H) mmunotherapy Markers Tumor Mutational Maurice (TMB): TMB Unit Maurice 5.67 m/MB Low Microsatellite Instability Status (MSI): MSI Status 0 Stable Result Detail DNA Variants (SNV and indels): Gene Variant Tier Amino Acid Change Nucleotide Change Consequence Allele Frequency Sequencing Depth KRAS G12V Tier 1: Strong significance p.Rik81Vbc NM_033360.4: c.35G>T Missense Variant 28.1 % 1995 CDKN1B Z138Aux*15 Tier 2: Potential significance p.[id number] NM_004064.5: c.326_327insT Frameshift Variant 29.5 % 987 TP53 K132R Tier 2: Potential significance p.Qhk660Qjm NM_000546.6: c.395A>G Missense Variant 25.4 % 1991 [...] each side in 5 fraction. Interval History: Currently she is receiving palliative chemotherapy FOLFIRI plus Avastin for metastatic colon cancer. She is feeling better after receiving radiation therapy and 1st cycle of chemotherapy. She has no pain now. She denies any headache, dizziness, blurred vision chest pain palpitation abdominal pain or distention, nausea vomiting, diarrhea constipation. LABS/IMAGING: Results for orders placed or performed in visit on 01/01/24 MAGNESIUM Result Value Ref Range Magnesium 2.0 1.5 - 2.6 mg/dL COMPREHENSIVE METABOLIC PANEL Result Value Ref Range BUN 8 6 - 20 mg/dL CREATININE 0.7 0.5 - 1.0 mg/dL EGFR >90 >=60 mL/min SODIUM 136 135 - 146 mmol/L POTASSIUM 3.9 3.5 - 5.1 mmol/L CHLORIDE 100 98 - 107 mmol/L CO2 25 22 - 32 mmol/L ANION GAP 11 7 - 15 mmol/L GLUCOSE 109 70 - 120 mg/dL Albumin 4.2 3.8 - 5.0 g/dL AST 14 10 - 35 U/L Alkaline Phosphatase 133 (H) 35 - 130 U/L Bilirubin, Total 0.5 <=1.2 mg/dL CALCIUM 9.6 8.4 - 10.2 mg/dL Protein 7.2 6.0 - 8.3 g/dL ALT 10 10 - 35 U/L CBC Result Value Ref Range WBC 2.67 (L) 4.00 - 10.80 K/uL RBC 3.99 3.85 - 5.15 M/uL HGB 11.8 (L) 12.0 - 15.3 g/dL HCT 35.4 (L) 36.0 - 45.2 % MCV 88.7 81.5 - 97.5 fL MCH 29.6 27.0 - 34.0 pg MCHC 33.3 32.0 - 36.0 g/dL RDW 16.3 11.5 - 15.5 % PLT 55 (L) 140 - 400 K/uL MPV 10.1 6.6 - 11.1 fL DIFFERENTIAL, AUTOMATED Result Value Ref Range WBC 2.67 (L) 4.00 - 10.80 K/uL Neutrophils % 41.3 40.0 - 75.0 % Lymphocytes % 44.1 (H) 18.0 - 42.0 % Monocytes % 5.7 1.0 - 11.0 % Eosinophils % 7.8 (H) 0.0 - 6.0 % Basophils % 1.1 0.0 - 2.0 % Absolute Neutrophils 1.16 (L) 1.80 - 7.70 K/uL Absolute Lymphocytes 1.24 1.00 - 4.80 K/ul Absolute Monocytes 0.16 0.00 - 1.10 K/uL Absolute Eosinophils 0.22 0.00 - 0.70 K/uL Absolute Basophils 0.03 0.00 - 0.20 K/uL URINALYSIS, REFLEX TO MICROSCOPIC Result Value Ref Range Color, Urine Yellow Light Yellow, Yellow, Dark Yellow Clarity, Urine Clear Clear Glucose, Urine Negative Negative mg/dL Bilirubin, Urine Negative Negative Ketone, Urine Negative Negative mg/dL Specific [place], Urine 1.015 1.003 - 1.030 Blood, Urine Small (A) Negative pH, Urine 5.5 5.0 - 7.5 Units Protein, Urine Negative Negative mg/dL Urobilinogen, Urine 0.2 0.2, 1.0 mg/dL Nitrite, Urine Negative Negative Esterase, Urine Negative Negative MICROSCOPIC EXAM, URINE Result Value Ref Range RBC, Urine 3-5 (A) 0 - 2 /HPF WBC, Urine 0-2 0 - 2 /HPF Bacteria, Urine 0-25 0 - 25 /HPF DIFFERENTIAL, TECHNOLOGIST REVIEW Result Value Ref Range nRBCs Recent blood test done on 01/01/2024 which revealed low platelet counts. REVIEW OF SYSTEMS: General: No Fever, chills, [...] Hematuria or dysuria Musculoskeletal: No bone pain Skin: No skin rash or lesions noted Neurologic: No numbness, weakness, neuropathic pain or change in cognitive function Psychiatric: No vegetative signs of depression Endocrine: [...] as needed for Nausea. 30 Tablet 1 No current facility-administered medications for this visit. Social History Tobacco Use Smoking status: Every Day Current packs/day: 0.50 Types: Cigarettes Smokeless tobacco: Never Vaping Use Vaping status: Never Used Substance Use Topics Alcohol use: Not Currently Drug use: Never Review of patient's allergies indicates: Allergen Reactions Oxaliplatin Flushing Shortness of breath Augmentin [Amoxicillin-Pot Clavulanate] GI upset Doxycycline GI upset Reglan [Metoclopramide] Hives PHYSICAL EXAMINATION: General Appearance: Healthy appearing patient in no acute distress There were no vitals taken for this visit. Vitals reviewed. HEENT: No oral or pharyngeal [...] Good pulses bilaterally, no peripheral edema. ASSESSMENT: 68-year-old female with history of breast cancer was [...] therapy to the scapular reason to the spinal lesion and female lesion. Now she is on salvage chemotherapy including combination of FOLFIRI plus Avastin. Clinically she is feeling better without any new symptoms complain. Pain is completely gone. Her platelet counts are low most likely because of the chemotherapy. Discussed with the patient about diagnosis reviewed all the available blood test result with her. Marge delay the chemotherapy by 1 week and monitor blood counts. If she continues to issues with thelow blood counts then we may have to reduce the dose of chemotherapy PLAN: As above. Delay the chemotherapy x1 week. She will return clinic for follow-up in 4 weeks. The patient voiced understanding of all of [...] in this encounter Nursing Notes * Kavita Mendez MED ASSIST - 01/02/2024 9:11 AM EDT Patient identifed by name and birthdate Do [...] it for you? ALREADY ACTIVE Filed Vitals: 01/02/24 0909 BP: 114/71 Pulse: 88 Temp: 36.3 C (97.4 F) TempSrc: Tympanic SpO2: 98% Weight: 54.9 kg (121 lb) Patient was instructed to not get up [...] Care Team (Late st Contact Info) Description 01/03/2024 10:30 AM EDT Cardiac Studies Cardiac Studies [address] [place] [address] 01/08/2024 10:00 AM EDT Laboratory Laboratory, [facility] [address] [facility] [place] [address] LongTerrance alva [facility] [place] [address] 01/09/2024 12:30 PM EDT Hem/Onc Treatment Hematology/Oncolog y Treatment, [place] [address] [place] [phone] Nasreen, Chair 4 Hem Onc Scenery [address] [facility] [address] 01/22/2024 11:00 AM EDT Office Visit Gynecology/Oncolog y, [place] [address] [place] [address] Jocelyn Vera PA-C [address] [place] [address] 02/06/2024 9:08 AM EDT Hospital Encounter [facility], Operating Room, [facility] - 4th Floor [address] [facility] [place] [address] Timoteo Ayala, DO [address] [facility] [place] [address] 02/06/2024 9:08 AM EDT - 02/06/2024 9:54 AM EDT Surgery OR [facility], Operating Room, [facility] - 4th Floor [address] [place] [phone] Timoteo Ayala, DO [address] [place] [address] COLONOSCOPY FLEXIBLE PROXIMAL DIAGNOSTIC 02/07/2024 8:00 AM EDT Office Visit Hematology/Oncolog y [facility] [address] [place] [address] Chandni Almonte MD [address] [place], [place] [address] 04/11/2024 2:00 PM EST Office Visit Urology Ashlie Louise [address] [place] [address] Manas Marie MD [address] [place] [address] Scheduled Procedures Name Priority Associated Diagnoses Date/Ti [...] this encounter Medical Devices Implanted Type Area Corrugated Box Machine Operator Device Identifier Shelf Expiration Date Model / Serial / Lot Power Port 8fr Sngl Lumen Plas - [id number] Implanted:Qty : 1 on 01/05/2023 by Jai Malcolm Jr., MD at [facility] Right: Chest CR BARD : PERIPHERAL VASCULAR [id number] 07/08/2024 [id number] / / [id number] documented as of this encounter Visit Diagnoses [...] Power of Attor johann? No Care Teams Ground Crew Supervisor Relationship Specialty Start Date End Date Lina Can MD [address] [place] [address] [place] Patel [address] PCP - General Family Medicine 08/06/22 documented as of this encounter
--- OUTSIDE RECORDS SUMMARY | 2024-05-09 12:31 | External Medical Summary | Summary of Care ---
Author Name Unknown Organization [facility] Address [address] [place] [address] Phone [phone] Care Team Providers Care Occupational Therapy Instructor Name Role Phone Lina Can MD Primary Care Prov ider Reason for Visit * Reason Onset Date Comments Test Results Lab 01/08/2024 Encounter Details Date Type Department Care Team (Late st Contact Info) Description 01/08/2024 Telephone Hematology/Oncology [facility] [place] 200 [facility] [place] [address] Chandni Almonte MD 200 [facility] [place] [address] Test Results Lab Allergies Active Allergy Reactions [...] canceled for tomorrow * Telephone Encounter - Tereza Gray RN - 01/08/2024 11:37 AM EDT [...] Description 01/15/2024 9:30 AM EDT Laboratory Laboratory, [facility] [phone] [facility] [address] 01/16/2024 11:30 AM EDT Hem/Onc Treatment Hematology/Oncolog y Treatment, [place] [address] [place] [address] Nasreen Chair 8 Hem Onc Scenery [address] [place] [address] 01/22/2024 11:00 AM EDT Office Visit Gynecology/Oncolog y, [place] [address] [place] [address] Jocelyn Vera PA-C [address] [place] [address] 02/06/2024 9:08 AM EDT Hospital Encounter OR [facility], Operating Room, [facility] - 4th Floor 400 [facility] [place] [phone] Timoteo Ayala, DO [address] [facility] [place] [address] 02/06/2024 9:08 AM EDT - 02/06/2024 9:54 AM EDT Surgery OR [facility], Operating Room, [facility] - 4th Floor [address] [place] [phone] Timoteo Ayala, DO [address] [facility] [place] [address] COLONOSCOPY FLEXIBLE PROXIMAL DIAGNOSTIC 02/07/2024 8:00 AM EDT Office Visit Hematology/Oncolog y Jean Downey [place] [address] [place] [address] Chandni Almonte MD [address] [place], [place] [id number] 04/11/2024 2:00 PM EST Office Visit Urology Ashlie Louise [address] [place] [address] Manas Marie MD [address] [place] [address] Scheduled Procedures Name Priority Associated Diagnoses Date/Ti [...] this encounter Medical Devices Implanted Type Area L Tacker Device Identifier Shelf Expiration Date Model / Serial / Lot Power Port 8fr Sngl Lumen Plas - [id number] Implanted:Qty : 1 on 01/05/2023 by Jai Malcolm Jr., MD at [facility] Right: Chest CR BARD : PERIPHERAL VASCULAR [id number] 07/08/2024 [id number] / / [id number] documented as of this encounter Advance Directives [...] Power of Attor johann? No Care Teams Occupational Therapy Instructor Relationship Specialty Start Date End Date Lina Can MD [address] [place] [address] SIVAKUM[place] Patel [phone] PCP - General Family Medicine 08/06/22 documented as of this encounter
--- OUTSIDE RECORDS SUMMARY | 2024-05-09 12:31 | External Medical Summary ---
Author Name Unknown Address Unknown Organization [facility] [place] [address] [place] [address] Laboratory Report Ordering Provider Test Date Status DANNIELLE OLVERA 01/08/2024 09:21:29 Final Observation Date Value Abnormality Reference (Units ) Status BUN 01/08/2024 09:21:29 5 Below low normal 6-20 (mg/dL) Final Creatinine 01/08/2024 09:21:29 0.6 0.5-1.0 (mg/dL) Final Glomerular filtration rate/1.73 sq M.predicted [Volume Rate/Area] in Serum, Plasma or Blood by Creatinine-based formula (CKD-EPI) 01/08/2024 09:21:29 >90 >=60 (mL/min) Final eGFR is calculated based on the CKD-EPI 2020 equation. Sodium 01/08/2024 09:21:29 133 Below low normal 135 -146 (mmol/L) Final Potassium 01/08/2024 09:21:29 4.4 3.5-5.1 (m mol/L) Final Cl 01/08/2024 09:21:29 98 98-107 (mm ol/L) Final CO2 01/08/2024 09:21:29 25 22-32 (mmo l/L) Final Anion gap 01/08/2024 09:21:29 10 7-15 (mmol /L) Final Glucose 01/08/2024 09:21:29 116 70-120 (mg /dL) Final Albumin 01/08/2024 09:21:29 4.0 3.8-5.0 (g /dL) Final AST (Aspartate aminotransferase) 01/08/2024 09:21:29 17 10-35 (U/L) Fin al Alk Phos 01/08/2024 09:21:29 161 Above high normal 35 -130 (U/L) Final Bilirubin, Total 01/08/2024 09:21:29 0.4 <=1 .2 (mg/dL) Final Calcium 01/08/2024 09:21:29 9.2 8.4-10.2 ( mg/dL) Final Protein 01/08/2024 09:21:29 6.6 6.0-8.3 (g /dL) Final ALT (Alanine aminotransferase) 01/08/2024 09:21:29 9 Below low normal 10-35 (U/L) Final Performing Location [facility] [place] [address]
--- OUTSIDE RECORDS SUMMARY | 2024-05-09 12:31 | External Medical Summary ---
Author Name Unknown Address Unknown Organization [facility] [address] [place] [address] Laboratory Report Ordering Provider Test Date Status DANNIELLE OLVERA 01/08/2024 09:21:29 Final Observation Date Value Abnormality Reference (Units ) Status RBC, Urine 01/08/2024 09:21:29 0-2 0-2 (/HPF) Final WBC, Urine 01/08/2024 09:21:29 0-2 0-2 (/HPF) Final Bacteria [#/area] in Urine sediment by Microscopy high power field 01/08/2024 09:21:29 0-25 0-25 (/HPF) Final Performing Location [facility] [address] [facility] [address]
--- OUTSIDE RECORDS SUMMARY | 2024-05-09 12:31 | External Medical Summary | Summary of Care ---
Author Name Unknown Organization [facility] Address [address] [place] [address] Phone [phone] Care Team Providers Care Access Director Name Role Phone Lina Can MD Primary Care Prov ider Reason for Visit * Reason Onset Date Comments Test Results Lab 01/08/2024 Encounter Details Date Type Department Care Team (Late st Contact Info) Description 01/08/2024 Telephone Hematology/Oncology [facility] Nasreen [place] 200 [facility] [place] [address] Chandni Almonte MD 200 [facility] [place] [address] Test Results Lab Allergies Active Allergy Reactions [...] Description 01/15/2024 9:30 AM EDT Laboratory Laboratory, [facility] [phone] [facility] [address] 01/16/2024 11:30 AM EDT Hem/Onc Treatment Hematology/Oncolog y Treatment, [place] [address] [place] [phone] Nasreen Chair 8 Hem Onc Scenery [address] [place] [address] 01/22/2024 11:00 AM EDT Office Visit Gynecology/Oncolog y, [place] [address] [place] [address] Jocelyn Vera PA-C [address] [place] [address] 02/06/2024 9:08 AM EDT Hospital Encounter OR [facility], Operating Room, [facility] - 4th Floor 400 [place] [phone] Timoteo Ayala, DO [address] [facility] [place] [address] 02/06/2024 9:08 AM EDT - 02/06/2024 9:54 AM EDT Surgery OR [facility], Operating Room, [facility] - 4th Floor [address] [place] [phone] Timoteo Ayala, DO [address] [facility] [place] [address] COLONOSCOPY FLEXIBLE PROXIMAL DIAGNOSTIC 02/07/2024 8:00 AM EDT Office Visit Hematology/Oncolog y Jean Downey [place] [address] [place] [address] Chandni Almonte MD [address] [place], [place] [id number] 04/11/2024 2:00 PM EST Office Visit Urology Ashlie Louise [address] [place] [address] Manas Marie MD [address] [place] [address] Scheduled Procedures Name Priority Associated Diagnoses [...] this encounter Medical Devices Implanted Type Area Mechanical Maintenance Foreman Device Identifier Shelf Expiration Date Model / Serial / Lot Power Port 8fr Sngl Lumen Plas - [id number] Implanted:Qty : 1 on 01/05/2023 by Jai Malcolm Jr., MD at [facility] Right: Chest CR BARD : PERIPHERAL VASCULAR [id number] 07/08/2024 [id number] / / [id number] documented as of this encounter Advance Directives [...] Power of Attor johann? No Care Teams Access Director Relationship Specialty Start Date End Date Lina Can MD [address] [place] [address] [place] Patel [phone] PCP - General Family Medicine 08/06/22 documented as of this encounter
--- OUTSIDE RECORDS SUMMARY | 2024-05-09 12:31 | External Medical Summary | Summary of Care ---
Author Name Unknown Organization [facility] Address [address] [place] [address] Phone [phone] Care Team Providers Care Laboratory Aide Name Role Phone Lina Can MD Primary Care Prov ider Reason for Visit * Reason Onset Date Comments Test Results Lab 01/01/2024 Encounter Details Date Type Department Care Team (Late st Contact Info) Description 01/01/2024 Telephone Hematology/Oncology Treatment, [place] [address] [place] [address] Chandni Almonte MD [address] [place] [address] Test Results Lab Allergies Active Allergy Reactions [...] 9:15 AM EDT Office Visit Hematology/Oncolog y [facility] [place] [address] [place] [address] Chandni Almonte MD [address] [place], [place] [address] 01/02/2024 9:45 AM EDT Hem/Onc Treatment Hematology/Oncolog y Treatment, [place] [address] [place], [place] [address] 01/03/2024 10:30 AM EDT Cardiac Studies Cardiac Studies [address] [place] [address] 01/22/2024 11:00 AM EDT Office Visit Gynecology/Oncolog y, [place] [address] [place] [address] Jocelyn Vera PA-C [address] [place] [address] 02/06/2024 9:08 AM EDT Hospital Encounter OR [facility], Operating Room, [facility] - 4th Floor [address] [facility] [place] [phone] Timoteo Ayala, DO [address] [place] [address] 02/06/2024 9:08 AM EDT - 02/06/2024 9:54 AM EDT Surgery OR [facility], Operating Room, [facility] Floor [address] [facility] [place] [phone] Timoteo Ayala DO [address] [place] [address] COLONOSCOPY FLEXIBLE PROXIMAL DIAGNOSTIC 04/11/2024 2:00 PM EST Office Visit Urology Ashlie Louise [address] [place] [address] Manas Marie MD 27 [place] [address] Scheduled Procedures Name Priority Associated Diagnoses Date/Ti [...] this encounter Medical Devices Implanted Type Area Surgical Coordinator Device Identifier Shelf Expiration Date Model / Serial / Lot Power Port 8fr Sngl Lumen Plas - [id number] Implanted:Qty : 1 on 01/05/2023 by Jai Malcolm Jr., MD at OR [facility] Right: Chest CR BARD : PERIPHERAL VASCULAR [id number] 07/08/2024 [id number] / / [id number] documented as of this encounter Advance Directives [...] Power of Attor johann? No Care Teams Laboratory Aide Relationship Specialty Start Date End Date Lina Can MD [address] [place] [address] [place] [address] PCP - General Family Medicine 08/06/22 documented as of this encounter
--- OUTSIDE RECORDS SUMMARY | 2024-05-09 12:31 | External Medical Summary ---
Author Name Unknown Address Unknown Organization [facility] [place] [address] [place] [address] Laboratory Report Ordering Provider Test Date Status DANNIELLE OLVERA 01/01/2024 08:52:44 Final Observation Date Value Abnormality Reference (Units ) Status Color of Urine by Auto 01/01/2024 08:52:44 Yellow Light Yellow, Yellow, Dark Yellow Final Clarity, Urine 01/01/2024 08:52:44 Clear Clear Final Glucose [Mass/volume] in Urine by Automated test strip 01/01/2024 08:52:44 Negative Negative (mg/dL) Final Bilirubin.total [Presence] in Urine by Automated test strip 01/01/2024 08:52:44 Negative Negative Final Ketones [Mass/volume] in Urine by Automated test strip 01/01/2024 08:52:44 Negative Negative (mg/dL) Final Specific gravity, Urine 01/01/2024 08:52:44 1.015 1.003-1.030 Final Hemoglobin [Presence] in Urine by Automated test strip 01/01/2024 08:52:44 Small Abnormal Negative Final pH, Urine 01/01/2024 08:52:44 5.5 5.0-7.5 (Units) Final Protein [Mass/volume] in Urine by Automated test strip 01/01/2024 08:52:44 Negative Negative (mg/dL) Final Urobilinogen [Mass/volume] in Urine by Automated test strip 01/01/2024 08:52:44 0.2 0.2, 1.0 (mg/dL) Final Nitrite [Presence] in Urine by Automated test strip 01/01/2024 08:52:44 Negative Negative Final Leukocyte esterase [Presence] in Urine by Automated test strip 01/01/2024 08:52:44 Negative Negative Final [facility] [place] [address]
--- OUTSIDE RECORDS SUMMARY | 2024-05-09 12:31 | External Medical Summary ---
Author Name Unknown Address Unknown Organization [facility] [place] [address] [place] [address] Laboratory Report Ordering Provider Test Date Status DANNIELLE OLVERA 01/01/2024 08:34:37 Final Observation Date Value Abnormality Reference (Units ) Status BUN 01/01/2024 08:34:37 8 6-20 (mg/dL) Final Creatinine 01/01/2024 08:34:37 0.7 0.5-1.0 (mg/dL) Final Glomerular filtration rate/1.73 sq M.predicted [Volume Rate/Area] in Serum, Plasma or Blood by Creatinine-based formula (CKD-EPI) 01/01/2024 08:34:37 >90 >=60 (mL/min) Final eGFR is calculated based on the CKD-EPI 2020 equation. Sodium 01/01/2024 08:34:37 136 135-146 (m mol/L) Final Potassium 01/01/2024 08:34:37 3.9 3.5-5.1 (m mol/L) Final Cl 01/01/2024 08:34:37 100 98-107 (mm ol/L) Final CO2 01/01/2024 08:34:37 25 22-32 (mmo l/L) Final Anion gap 01/01/2024 08:34:37 11 7-15 (mmol /L) Final Glucose 01/01/2024 08:34:37 109 70-120 (mg /dL) Final Albumin 01/01/2024 08:34:37 4.2 3.8-5.0 (g /dL) Final AST (Aspartate aminotransferase) 01/01/2024 08:34:37 14 10-35 (U/L) Fin al Alk Phos 01/01/2024 08:34:37 133 Above high normal 35 -130 (U/L) Final Bilirubin, Total 01/01/2024 08:34:37 0.5 <=1 .2 (mg/dL) Final Calcium 01/01/2024 08:34:37 9.6 8.4-10.2 ( mg/dL) Final Protein 01/01/2024 08:34:37 7.2 6.0-8.3 (g /dL) Final ALT (Alanine aminotransferase) 01/01/2024 08:34:37 10 10-35 (U/L) Shubham ornelas Performing Location [facility] [place] [address] [facility] [address]
--- OUTSIDE RECORDS SUMMARY | 2024-05-09 12:31 | External Medical Summary | Summary of Care ---
Author Name Unknown Organization [facility] Address [address] [place] [address] Phone [phone] Care Team Providers Care Personal Injury Specialist Name Role Phone Lina Can MD Primary Care Prov ider Reason for Visit * Reason Onset Date Comments Test Results Lab 01/08/2024 Encounter Details Date Type Department Care Team (Late st Contact Info) Description 01/08/2024 Telephone Hematology/Oncology [facility] [place] [address] [facility] [place] [address] Chandni Almonte MD [address] [facility] [place] [address] Test Results Lab Allergies Active Allergy Reactions [...] 2400, Hemoglobin and hematocrit -11.2/33.6, Platelet count 088720, ANC 820. She is a case of [...] need repeat labs "CBCd, CMP, urine" at [facility] in AM the day prior. Thanks! documented in this encounter Plan of Treatment Upcoming Encounters Date Type Department Care Team (Late st Contact Info) Description 01/15/2024 9:30 AM EDT Laboratory Laboratory, [facility] [address] [place] [address] Terrance Long [address] [place] [address] 01/16/2024 11:30 AM EDT Hem/Onc Treatment Hematology/Oncolog y Treatment, [place] [address] [place] [address] Nasreen, Chair 8 Hem Onc Scenery [address] [place] [address] 01/22/2024 11:00 AM EDT Office Visit Gynecology/Oncolog y, [place] [address] [place] [address] Jocelyn Vera PA-C [address] [place] [address] 02/06/2024 9:08 AM EDT Hospital Encounter OR [facility], Operating Room, [facility] - 4th Floor [address] [place] [phone] Timoteo Ayala DO [address] [place] [address] 02/06/2024 9:08 AM EDT - 02/06/2024 9:54 AM EDT Surgery OR [facility], Operating Room, [facility] - 4th Floor [address] [place] [address] Timoteo Ayala [address] [place] [address] COLONOSCOPY FLEXIBLE PROXIMAL DIAGNOSTIC 02/07/2024 8:00 AM EDT Office Visit Hematology/Oncolog y [facility] State Raymond Downey [address] [place] [address] Chandni Almonte MD [address] [place] [address] 04/11/2024 2:00 PM EST Office Visit Urology Ashlie Louise [address] [place] [address] Manas Marie MD 27 [place] [address] Scheduled Procedures Name Priority Associated Diagnoses Date/Ti [...] this encounter Medical Devices Implanted Type Area [employer] Driver Device Identifier Shelf Expiration Date Model / Serial / Lot Power Port 8fr Sngl Lumen Plas - [id number] Implanted:Qty : 1 on 01/05/2023 by Jai Malcolm Jr., MD at OR [facility] Right: Chest CR BARD : PERIPHERAL VASCULAR [id number] 07/08/2024 [id number] / / [id number] documented as of this encounter Visit Diagnoses [...] Power of Attor johann? No Care Teams Personal Injury Specialist Relationship Specialty Start Date End Date Lina Can MD [address] [place] [address] [place] [address] PCP - General Family Medicine 08/06/22 documented as of this encounter
--- OUTSIDE RECORDS SUMMARY | 2024-05-09 12:31 | External Medical Summary ---
Author Name Unknown Address Unknown Organization [facility] [address] - [address] [place] [address] Laboratory Report Ordering Provider Test Date Status DANNIELLE OLVERA 01/08/2024 09:21:29 Final Observation Date Value Abnormality Reference (Units ) Status WBC, Total 01/08/2024 09:21:29 2.45 Below low normal 4. 00-10.80 (K/uL) Final RBC 01/08/2024 09:21:29 3.65 3.85-5.15 (M/uL) Final Hemoglobin 01/08/2024 09:21:29 11.2 Below low normal 12 .0-15.3 (g/dL) Final HCT 01/08/2024 09:21:29 33.6 Below low normal 36. 0-45.2 (%) Final MCV 01/08/2024 09:21:29 92.1 81.5-97.5 (fL) Final MCH 01/08/2024 09:21:29 30.7 27.0-34.0 (pg) Final MCHC 01/08/2024 09:21:29 33.3 32.0-36.0 (g/dL) Final RDW 01/08/2024 09:21:29 18.4 11.5-15.5 (%) Final Platelets 01/08/2024 09:21:29 100 Below low normal 140 -400 (K/uL) Final MPV 01/08/2024 09:21:29 9.6 6.6-11.1 ( fL) Final Performing Location [facility] - [address] [place] [address]
--- OUTSIDE RECORDS SUMMARY | 2024-05-09 12:31 | External Medical Summary ---
Author Name Unknown Address Unknown Organization [facility] [place] [address] [facility] [address] Laboratory Report Ordering Provider Test Date Status DANNIELLE OLVERA 01/08/2024 09:21:29 Final Observation Date Value Abnormality Reference (Units ) Status Color of Urine by Auto 01/08/2024 09:21:29 Yellow Colorless, Light Yellow, Yellow, Dark Yellow Final Clarity, Urine 01/08/2024 09:21:29 Clear Clear Final Glucose [Mass/volume] in Urine by Automated test strip 01/08/2024 09:21:29 Negative Negative (mg/dL) Final Bilirubin.total [Presence] in Urine by Automated test strip 01/08/2024 09:21:29 Negative Negative Final Ketones [Mass/volume] in Urine by Automated test strip 01/08/2024 09:21:29 Negative Negative (mg/dL) Final Specific gravity, Urine 01/08/2024 09:21:29 1.010 1.003-1.030 Final Hemoglobin [Presence] in Urine by Automated test strip 01/08/2024 09:21:29 Small Abnormal Negative Final pH, Urine 01/08/2024 09:21:29 6.0 5.0-7.5 (Units) Final Protein [Mass/volume] in Urine by Automated test strip 01/08/2024 09:21:29 Negative Negative (mg/dL) Final Urobilinogen [Mass/volume] in Urine by Automated test strip 01/08/2024 09:21:29 0.2 0.2, 1.0 (mg/dL) Final Nitrite [Presence] in Urine by Automated test strip 01/08/2024 09:21:29 Negative Negative Final Leukocyte esterase [Presence] in Urine by Automated test strip 01/08/2024 09:21:29 Negative Negative Final Performing Location [facility] [place] [address] [place] [address]
--- OUTSIDE RECORDS SUMMARY | 2024-05-09 12:32 | External Medical Summary | Summary of Care ---
Author Name Unknown Organization [facility] Address [address] [place] [address] Phone [phone] Care Team Providers Care Morphology Teacher Name Role Phone Lina Can MD [...] ZIRABEV, 10 MG Chandni Almonte MD 200 [facility] [place] [address] Anc Hem/Onc [address] [address] Referral ID Status Reason Start Date Expiration Date V isits Requested Visits Authorized [id number] Authorized 11/22/2023 11/21/2024 999 [id number] Encounter Details Date Type Department Care Team (Latest Contact Info) Description 12/21/2023 11:15 AM EDT Immunization/ Injection Hematology/Oncology Treatment, [address] [address] Nasreen, Chair 1 Hem Onc [address] [place] [address] Encounter for antineoplastic chemotherapy*; Malignant neoplasm of sigmoid colon (HCC); Adjustment and management of infusion pump Allergies Active Allergy Reactions Criticality Noted Date Comments Amoxicillin-Pot Clavulanate 07/13/19 GI upset Doxycycline 07/12/2022 GI upset Oxaliplatin Flushing High 07/27/2023 Shortness of breath Metoclopramide Hives 08/10/2022 documented as of this encounter (statuses as of 12/21/2023) Medications Medication Sig Dispensed Refills Start Date [...] as of this encounter (statuses as of 12/21/2023) Active Problems Problem Noted Date Diagnosed Date [...] as of this encounter (statuses as of 12/21/2023) Immunizations No known immunizationsdocumented as of this [...] Care Team (Late st Contact Info) Description 12/26/2023 9:00 AM EDT Office Visit Urology, [facility] [address] [place] [address] Manas Marie MD 27 [place] [address] 01/01/2024 9:00 AM EDT Laboratory Laboratory, [address] [phone] [facility] [address] [address] 01/02/2024 9:15 AM EDT Office Visit Hematology/Oncolog y [facility] 200 [facility] [place] [phone] Chandni Almonte MD 200 [facility] [place] [address] 01/02/2024 9:45 AM EDT Hem/Onc Treatment [facility]olog [facility], [place] [facility] [address] 01/03/2024 10:30 AM EDT Cardiac Studies Cardiac Studies [address] [place] [address] 01/22/2024 11:00 AM EDT Office Visit Gynecology/Oncolog y, [place] [address] [place] [address] Jocelyn Vera PA-C [address] [place], [place] [phone] 02/06/2024 9:08 AM EDT Hospital Encounter OR [facility], Operating Room, [facility] - 4th Floor 400 [place] [address] Timoteo Ayala, DO [address] [place] [address] 02/06/2024 9:08 AM EDT - 02/06/2024 9:54 AM EDT Surgery OR [facility], Operating Room, [facility] - 4th Floor 400 [facility] [place] [address] Timoteo Ayala, DO [address] [place], [place] [phone] COLONOSCOPY FLEXIBLE PROXIMAL DIAGNOSTIC Scheduled Procedures Name Priority Associated Diagnoses Date/Ti [...] this encounter Medical Devices Implanted Type Area Welfare Supervisor Device Identifier Shelf Expiration Date Model / Serial / Lot Power Port 8fr Sngl Lumen Plas - [id number] Implanted:Qty : 1 on 01/05/2023 by Jai Malcolm Jr., MD at OR [facility] Right: Chest CR BARD : PERIPHERAL VASCULAR [id number] 07/08/2024 [id number] / / [id number] documented as of this encounter Visit Diagnoses [...] Starting on Shi 12/21/23 at 1125, Until Mon12/22/23 at 1124, For 24 hours, Do not flush if lock, PICC, or central line not in place; IV infusing or unable to flush. Given 12/21/2023 11:30 AM EDT 500 Units sodium chloride 0.9 % flush central line 10 mL 10 mL, IV Push, PRN Other, IV Flush, Starting on Shi 12/21/23 at 1125, Until Mon12/22/23 at 1124, For 24 hours, Do not flush if [...] Power of Attor johann? No Care Teams Morphology Teacher Relationship Specialty Start Date End Date Lina Can MD [address] [place] [address] [place] [address] PCP - General Family Medicine 08/06/22 documented as of this encounter
--- OUTSIDE RECORDS SUMMARY | 2024-05-09 12:32 | External Medical Summary | Summary of Care ---
Author Name Unknown Organization [facility] Address [address] [place] [address] Phone [phone] Care Team Providers Care Seed Cleaning Machine Operator Name Role Phone Lina Can MD Primary Care Prov ider Reason for Visit * Reason Onset Date Comments Referral 11/21/2023 IS Encounter Details Date Type Department Care Team (Late st Contact Info) Description 11/21/2023 Telephone Hematology/Oncology Treatment, [place] [address] [facility] [address] [place] [address] Chandni Almonte MD 200 [place] [address] Referral ([facility]) Allergies Active Allergy Reactions Criticality Noted Date Comments Amoxicillin-Pot Clavulanate 07/13/19 GI upset Doxycycline 07/12/2022 GI upset Oxaliplatin Flushing High 07/27/2023 Shortness of breath Metoclopramide Hives 08/10/2022 documented as of this encounter (statuses as of 11/29/2023) Medications Medication Sig Dispensed Refills Start Date [...] Start Date End Date Status Fluorouracil (5-Fu) 3,825 mg in NSS 138 mL infusion 3825 mg IV CONTINUOUS 07/24/2023 Ac tive documented as of this encounter (statuses as of 11/29/2023) Active Problems Problem Noted Date Diagnosed Date [...] as of this encounter (statuses as of 11/29/2023) Immunizations No known immunizationsdocumented as of this [...] Telephone Encounter - Tereza Gray RN - 11/29/2023 7:38 AM EDT FYI, start date 12/18 * Telephone Encounter - Tereza Gray RN - 11/21/2023 2:51 PM EDT Name: Nyasia Hdez Cancer Diagnosis: c18.7 Attending Oncologist: Dr Almonte Medication Requested: 5FU Route of Infusion: port Length of infusion: 46 hours Chemotherapy to be disconnected at clinic: yes, date: n/a If no, please list home health agency and start of care date: n/a documented in this encounter Plan of Treatment Upcoming Encounters Date Type Department Care Team (Late st Contact Info) Description 12/12/2023 8:41 AM EDT Hospital Encounter [facility], Operating Room, [facility] - 4th Floor 400 [place] [address] Timoteo Ayala, DO [address] [facility] [place] [address] 12/12/2023 8:41 AM EDT - 12/12/2023 9:27 AM EDT Surgery OR [facility], Operating Room, [facility] - 4th Floor 400 [facility] [place] [address] Timoteo Ayala DO [address] [place] [address] COLONOSCOPY FLEXIBLE PROXIMAL DIAGNOSTIC 12/18/2023 9:30 AM EDT Laboratory Laboratory, [facility] [address] [facility] [phone] [facility] 132 [facility] [place] [address] 12/19/2023 9:30 AM EDT Hem/Onc Treatment Hematology/Oncolog y Treatment, [place] [address] [place] [address] 12/26/2023 9:00 AM EDT Office Visit Urology, [facility] 132 [facility] [address] Manas Marie MD [address] [place] [address] 01/03/2024 10:30 AM EDT Cardiac Studies Cardiac Studies [address] [place] [address] 01/22/2024 11:00 AM EDT Office Visit Gynecology/Oncolog y, [place] [address] [facility] [place] [address] Jocelyn Vera PA-C [address] [facility] [place] [id number] Scheduled Procedures Name Priority Associated Diagnoses Date/Ti me COLONOSCOPY FLEXIBLE PROXIMAL DIAGNOSTIC Cancer of sigmoid colon (HCC) 12/12/2023 8:41 AM EDT PRE / POST CARE Malignant neoplasm of sigmoid colon (HCC) 11/03/2023 9:00 AM EDT Health Maintenance Due Date Last Done Comments Pneumococcal Vaccine: 65+ Years (1 of 2 - PCV) 1961 Hepatitis C Screening 1973 DTaP,Tdap,and Td Vaccines (1 - Tdap) 1974 Zoster Vaccines [...] this encounter Medical Devices Implanted Type Area Dynamometer Tuner Device Identifier Shelf Expiration Date Model / Serial / Lot Power Port 8fr Sngl Lumen Plas - [id number] Implanted:Qty : 1 on 01/05/2023 by Jai Malcolm Jr., MD at OR [facility] Right: Chest CR BARD : PERIPHERAL VASCULAR [id number] 07/08/2024 [id number] / / [id number] documented as of this encounter Advance Directives [...] Power of Attor johann? No Care Teams Seed Cleaning Machine Operator Relationship Specialty Start Date End Date Lina Can MD [address] [place] [address] [place] [address] PCP - General Family Medicine 08/06/22 documented as of this encounter
--- OUTSIDE RECORDS SUMMARY | 2024-05-09 12:32 | External Medical Summary ---
Author Name Unknown Address Unknown Organization [facility] [address] [place] [address] Laboratory Report Ordering Provider Test Date Status DANNIELLE OLVERA 12/18/2023 08:54:22 Final Observation Date Value Abnormality Reference (Units ) Status BUN 12/18/2023 08:54:22 11 6-20 (mg/dL) Final Creatinine 12/18/2023 08:54:22 0.7 0.5-1.0 (mg/dL) Final Glomerular filtration rate/1.73 sq M.predicted [Volume Rate/Area] in Serum, Plasma or Blood by Creatinine-based formula (CKD-EPI) 12/18/2023 08:54:22 >90 >=60 (mL/min) Final eGFR is calculated based on the CKD-EPI 2020 equation. Sodium 12/18/2023 08:54:22 136 135-146 (m mol/L) Final Potassium 12/18/2023 08:54:22 4.1 3.5-5.1 (m mol/L) Final Cl 12/18/2023 08:54:22 97 Below low normal 98- 107 (mmol/L) Final CO2 12/18/2023 08:54:22 28 22-32 (mmo l/L) Final Anion gap 12/18/2023 08:54:22 11 7-15 (mmol /L) Final Glucose 12/18/2023 08:54:22 171 Above high normal 70 -120 (mg/dL) Final Albumin 12/18/2023 08:54:22 4.3 3.8-5.0 (g /dL) Final AST (Aspartate aminotransferase) 12/18/2023 08:54:22 16 10-35 (U/L) Fin al Alk Phos 12/18/2023 08:54:22 140 Above high normal 35 -130 (U/L) Final Bilirubin, Total 12/18/2023 08:54:22 0.5 <=1 .2 (mg/dL) Final Calcium 12/18/2023 08:54:22 10.4 Above high normal 8. 4-10.2 (mg/dL) Final Protein 12/18/2023 08:54:22 7.7 6.0-8.3 (g /dL) Final ALT (Alanine aminotransferase) 12/18/2023 08:54:22 9 Below low normal 10-35 (U/L) Final Performing Location [facility] [place] [address] [facility] [address]
--- OUTSIDE RECORDS SUMMARY | 2024-05-09 12:32 | External Medical Summary | Summary of Care ---
Author Name Unknown Organization [facility] Address [address] [place] [address] Phone [phone] Care Team Providers Care Water Pollution Specialist Name Role Phone Lina Can MD Primary Care Prov ider Reason for Visit * Reason Comments Outpatient Testing Encounter Details Date Type Department Care Team (Late st Contact Info) Description 12/18/2023 9:30 AM EDT Laboratory Laboratory, [facility] [address] [place] [address] LongTerrance alva [facility] 132 [place] [address] Malignant neoplasm of sigmoid colon (HCC) Allergies Active Allergy Reactions Criticality Noted Date Comments Amoxicillin-Pot Clavulanate 07/13/19 GI upset Doxycycline 07/12/2022 GI upset Oxaliplatin Flushing High 07/27/2023 Shortness of breath Metoclopramide Hives 08/10/2022 documented as of this encounter (statuses as of 12/18/2023) Medications Medication Sig Dispensed Refills Start Date [...] as of this encounter (statuses as of 12/18/2023) Active Problems Problem Noted Date Diagnosed Date [...] as of this encounter (statuses as of 12/18/2023) Immunizations No known immunizationsdocumented as of this [...] Care Team (Late st Contact Info) Description 12/19/2023 9:30 AM EDT Hem/Onc Treatment Hematology/Oncolog y Treatment, [place] [address] [place] [address] 12/26/2023 9:00 AM EDT Office Visit Urology, [facility] 132 [facility] [place] [address] Manas Marie MD 27 [place] [address] 01/03/2024 10:30 AM EDT Cardiac Studies Cardiac Studies [address] [place] [address] 01/22/2024 11:00 AM EDT Office Visit Gynecology/Oncolog y, [place] [address] [place] [address] Jocelyn Vera PA-C [address] [place] [address] 02/06/2024 9:08 AM EDT Hospital Encounter OR [facility], Operating Room, [facility] - 4th Floor [address] [place] [address] Timoteo Ayala, DO [address] [place] [address] 02/06/2024 9:08 AM EDT - 02/06/2024 9:54 AM EDT Surgery OR [facility], Operating Room, [facility] - 4th Floor [address] [place] [address] Timoteo Ayala, DO [address] [place] [address] COLONOSCOPY FLEXIBLE PROXIMAL DIAGNOSTIC Pending Results Name Type Priority Associated Diagnoses Date /Time MAGNESIUM Lab STAT Malignant neoplasm of sigmoid colon (HCC) 12/18/2023 8:54 AM EDT COMPREHENSIVE METABOLIC PANEL Lab STAT Malignant neoplasm of sigmoid colon (HCC) 12/18/2023 8:54 AM EDT URINALYSIS, REFLEX TO MICROSCOPIC Lab STAT Malignant neoplasm of sigmoid colon (HCC) 12/18/2023 9:01 AM EDT Scheduled Procedures Name Priority Associated [...] this encounter Medical Devices Implanted Type Area Bottle Machine Operator Device Identifier Shelf Expiration Date Model / Serial / Lot Power Port 8fr Sngl Lumen Plas - [id number] Implanted:Qty : 1 on 01/05/2023 by Jai Malcolm Jr., MD at [facility] Right: Chest CR BARD : PERIPHERAL VASCULAR [id number] 07/08/2024 [id number] / / [id number] documented as of this encounter Procedures Procedure Name Priority Date/Time Associated Diagnosis Comments DIFFERENTIAL, AUTOMATED STAT 12/18/2023 8:54 AM EDT Malignant neoplasm of sigmoid colon (HCC) CBC STAT 12/18/2023 8:54 AM EDT Malignant neoplasm of sigmoid colon (HCC) CBC STAT 12/18/2023 8:54 AM EDT Malignant neoplasm of sigmoid colon (HCC) DIFFERENTIAL, TECHNOLOGIST REVIEW Routine 12/18/2023 8:54 AM EDT Malignant neoplasm of sigmoid colon (HCC) documented in this encounter Results * DIFFERENTIAL, TECHNOLOGIST REVIEW (12/18/2023 8:54 AM EDT) nRBCs 12/18/2023 9:14 AM EDT [facility] [place] [facility] Blood Venous blood specimen / Unknown Venipuncture / Unknown 12/18/2023 8:54 AM EDT 12/18/2023 8:54 AM EDT Chandni Almonte MD LAB BLOOD ORDERA BLES [facility] [place] [facility] 132 [facility] [place] [address] * (ABNORMAL) DIFFERENTIAL, AUTOMATED (12/18/2023 8:54 AM EDT) WBC 4.85 4.00 - 10.80 K/uL 12/18/2023 9:14 AM EDT [facility] [place] [facility] Neutrophils % 63.7 40.0 - 75.0 % 12/18/2023 9:14 AM EDT [facility] [place] [facility] Lymphocytes % 21.9 18.0 - 42.0 % 12/18/2023 9:14 AM EDT [facility] [place] [facility]10 Monocytes % 7.4 1.0 - 11.0 % 12/18/2023 9:14 AM EDT [facility] [place] [facility] Eosinophils % 6.6(H) 0.0 - 6.0 % 12/18/2023 9:14 AM EDT [facility] [place] [facility] Basophils % 0.4 0.0 - 2.0 % 12/18/2023 9:14 AM EDT [facility] [place] [facility] Absolute Neutrophils 3.09 1.80 - 7.70 K/uL 12/18/2023 9:14 AM EDT [facility] [place] [facility] Absolute Lymphocytes 1.06 1.00 - 4.80 K/ul 12/18/2023 9:14 AM EDT [facility] [place] [facility] Absolute Monocytes 0.36 0.00 - 1.10 K/uL 12/18/2023 9:14 AM EDT [facility] [place] [facility] Absolute Eosinophils 0.32 0.00 - 0.70 K/uL 12/18/2023 9:14 AM EDT [facility] [place] [facility] Absolute Basophils 0.02 0.00 - 0.20 K/uL 12/18/2023 9:14 AM EDT [facility] [place] [facility] Blood Venous blood specimen / Unknown Venipuncture / Unknown 12/18/2023 8:54 AM EDT 12/18/2023 8:54 AM EDT Chandni Almonte MD LAB BLOOD ORDERA BLES [facility] [place] [facility] [address] [place] [address] * (ABNORMAL) CBC (12/18/2023 8:54 AM EDT) WBC 4.85 4.00 - 10.80 K/uL 12/18/2023 9:14 AM EDT [facility] [place] [facility] RBC 4.25 3.85 - 5.15 M/uL 12/18/2023 9:14 AM EDT [facility] [place] [facility] HGB 12.7 12.0 - 15.3 g/dL 12/18/2023 9:14 AM EDT [facility] [place] [facility] HCT 37.9 36.0 - 45.2 % 12/18/2023 9:14 AM EDT [facility] [place] [facility] MCV 89.2 81.5 - 97.5 fL 12/18/2023 9:14 AM EDT [facility] [place] [facility] MCH 29.9 27.0 - 34.0 pg 12/18/2023 9:14 AM EDT [facility] [place] [facility] MCHC 33.5 32.0 - 36.0 g/dL 12/18/2023 9:14 AM EDT [facility] [place] [facility] RDW 15.7 11.5 - 15.5 % 12/18/2023 9:14 AM EDT [facility] [place] [facility] PLT 93(L) 140 - 400 K/uL 12/18/2023 9:14 AM EDT [facility] [place] [facility] MPV 8.8 6.6 - 11.1 fL 12/18/2023 9:14 AM EDT [facility] [place] [facility] Blood Venous blood specimen / Unknown Venipuncture / Unknown 12/18/2023 8:54 AM EDT 12/18/2023 8:54 AM EDT Chandni Almonte MD LAB BLOOD ORDERA BLES [facility] [place] [facility] [address] [place] [address] documented in this encounter Visit Diagnoses Diagnosis [...] Power of Attor johann? No Care Teams Water Pollution Specialist Relationship Specialty Start Date End Date Lina Can MD [address] [place] [address] [place] [address] PCP - General Family Medicine 08/06/22 documented as of this encounter
--- OUTSIDE RECORDS SUMMARY | 2024-05-09 12:32 | External Medical Summary | Summary of Care ---
Author Name Unknown Organization [facility] Address [address] [place] [address] Phone [phone] Care Team Providers Care Fruit Grader Operator Name Role Phone Lina Can MD Primary Care Prov ider Reason for Visit * Reason Onset Date Comments Forms Request 12/15/2023 FMLA Encounter Details Date Type Department Care Team (Late st Contact Info) Description 12/15/2023 Telephone Hematology/Oncology [facility] [place] 200 [facility] [place] [address] Chandni Almonte MD 200 [facility] [place] [address] Forms Request (FMLA) Allergies Active Allergy Reactions Criticality Noted Date Comments Amoxicillin-Pot Clavulanate 07/13/19 GI upset Doxycycline 07/12/2022 GI upset Oxaliplatin Flushing High 07/27/2023 Shortness of breath Metoclopramide Hives 08/10/2022 documented as of this encounter (statuses as of 12/22/2023) Medications Medication Sig Dispensed Refills Start Date [...] Greater than ) or Pain, Moderate. Active documented as of this encounter (statuses as of 12/22/2023) Active Problems Problem Noted Date Diagnosed Date [...] as of this encounter (statuses as of 12/22/2023) Immunizations No known immunizationsdocumented as of this [...] Telephone Encounter - Nelli España LPN - 12/22/2023 10:16 AM EDT 12/19/2023, Approximately 9:40 am: Handed patient the completed FMLA form in a large envelope. She stated she would give the form to her son. * Telephone Encounter - Nelli España LPN - 12/15/2023 3:49 PM EDT Form completed, awaiting provider signature. * Telephone Encounter - Nelli España LPN - 12/15/2023 3:38 PM EDT FMLA form dropped off today by patient's son, Marcelo Hdez. documented in this encounter Plan of Treatment Upcoming Encounters Date Type Department Care Team (Late st Contact Info) Description 12/26/2023 9:00 AM EDT Office Visit Urology, [facility] 132 [facility] [place] [address] Manas Marie MD 27 [place] [address] 01/01/2024 9:00 AM EDT Laboratory Laboratory, [facility] 132 [facility] [place] [phone] LongTerrance alvas [address] [place] [address] 01/02/2024 9:15 AM EDT Office Visit Hematology/Oncolog y [facility] [place] [address] [place] [phone] Chandni Almonte MD [address] [place] [address] 01/02/2024 9:45 AM EDT Hem/Onc Treatment Hematology/Oncolog y Treatment, [place] [address] [place] [phone] 01/03/2024 10:30 AM EDT Cardiac Studies Cardiac Studies [address] [place] [address] 01/22/2024 11:00 AM EDT Office Visit Gynecology/Oncolog y, [place] [address] [place] [address] Jocelyn Vera PA-C [address] [facility] [place] [address] 02/06/2024 9:08 AM EDT Hospital Encounter OR [facility], Operating Room, [facility] - 4th Floor [address] [place] [phone] Timoteo Ayala DO 100 N [facility] [place] [address] 02/06/2024 9:08 AM EDT - 02/06/2024 9:54 AM EDT Surgery OR [facility], Operating Room, [facility] - 4th Floor [address] [place] [phone] Timoteo Ayala, DO [address] [place] [address] COLONOSCOPY FLEXIBLE PROXIMAL DIAGNOSTIC Scheduled Procedures Name [...] encounter Medical Devices Implanted Type Area Tire Fabricator Device Identifier Shelf Expiration Date Model / Serial / Lot Power Port 8fr Sngl Lumen Plas - [id number] Implanted:Qty : 1 on 01/05/2023 by Jai Malcolm Jr., MD at OR [facility] Right: Chest CR BARD : PERIPHERAL VASCULAR [id number] 07/08/2024 [id number] / / [id number] documented as of this encounter Advance Directives [...] Power of Attor johann? No Care Teams Fruit Grader Operator Relationship Specialty Start Date End Date Lina Can MD [address] [place] [address] [place] [address] PCP - General Family Medicine 08/06/22 documented as of this encounter
--- OUTSIDE RECORDS SUMMARY | 2024-05-09 12:32 | External Medical Summary ---
Author Name Unknown Address Unknown Organization [facility] - [address] [place] [address] Laboratory Report Ordering Provider Test Date Status DANNIELLE OLVERA 12/18/2023 08:54:22 Final Observation Date Value Abnormality Reference (Units ) Status Nucleated erythrocytes/100 leukocytes [Ratio] in Blood by Automated count 12/18/2023 08:54:22 Final Performing Location [facility] 0 - [address] [place] [address]
--- OUTSIDE RECORDS SUMMARY | 2024-05-09 12:32 | External Medical Summary ---
Author Name Unknown Address Unknown Organization [facility] [place] [facility]-10 - [address] [facility] [address] Laboratory Report Ordering Provider Test Date Status DANNIELLE OLVERA 12/18/2023 09:01:55 Final Observation Date Value Abnormality Reference (Units ) Status RBC, Urine 12/18/2023 09:01:55 3-5 Abnormal 0-2 (/HPF) Final WBC, Urine 12/18/2023 09:01:55 0-2 0-2 (/HPF) Final Bacteria [#/area] in Urine sediment by Microscopy high power field 12/18/2023 09:01:55 0-25 0-25 (/HPF) Final Performing Location [facility] [place] 57-1 0 - [address] [facility] [address]
--- OUTSIDE RECORDS SUMMARY | 2024-05-09 12:32 | External Medical Summary ---
Author Name Unknown Address Unknown Organization [facility] 57-10 - [address] [place] [address] Laboratory Report Ordering Provider Test Date Status DANNIELLE OLVERA 12/18/2023 09:01:55 Final Observation Date Value Abnormality Reference (Units ) Status Color of Urine by Auto 12/18/2023 09:01:55 Yellow Light Yellow, Yellow, Dark Yellow Final Clarity, Urine 12/18/2023 09:01:55 Clear Clear Final Glucose [Mass/volume] in Urine by Automated test strip 12/18/2023 09:01:55 Negative Negative (mg/dL) Final Bilirubin.total [Presence] in Urine by Automated test strip 12/18/2023 09:01:55 Negative Negative Final Ketones [Mass/volume] in Urine by Automated test strip 12/18/2023 09:01:55 Negative Negative (mg/dL) Final Specific gravity, Urine 12/18/2023 09:01:55 1.015 1.003-1.030 Final Hemoglobin [Presence] in Urine by Automated test strip 12/18/2023 09:01:55 Small Abnormal Negative Final pH, Urine 12/18/2023 09:01:55 6.0 5.0-7.5 (Units) Final Protein [Mass/volume] in Urine by Automated test strip 12/18/2023 09:01:55 Negative Negative (mg/dL) Final Urobilinogen [Mass/volume] in Urine by Automated test strip 12/18/2023 09:01:55 0.2 0.2, 1.0 (mg/dL) Final Nitrite [Presence] in Urine by Automated test strip 12/18/2023 09:01:55 Negative Negative Final Leukocyte esterase [Presence] in Urine by Automated test strip 12/18/2023 09:01:55 Negative Negative Final Performing Location [facility] [place] 57-1 0 - [address] [place] [address]
--- OUTSIDE RECORDS SUMMARY | 2024-05-09 12:32 | External Medical Summary | Summary of Care ---
Author Name Unknown Organization [facility] Address [address] [place] [address] Phone [phone] Care Team Providers Care Director Cardiology Name Role Phone Lina Can MD Primary Care Prov ider Encounter Details Date Type Department Care Team (Late st Contact Info) Description 12/21/2023 Telephone Hematology/Oncology [facility] [place] 200 [facility] [place] [phone] Chandni Almonte MD 200 [facility] [place] [address] Allergies Active Allergy Reactions Criticality Noted Date [...] Telephone Encounter - Jacinto Delaney RN - 12/21/2023 8:20 AM EDT Pt returning today for pump disconnect, plan to follow up on status when she comes after first treatment of Zirabeve/FOLFIRI. documented in this encounter Plan of Treatment Upcoming Encounters Date Type Department Care Team (Late st Contact Info) Description 12/21/2023 11:15 AM EDT Immunization/Injec tion Hematology/Oncolog y Treatment, [place] [address] [place] [address] Nasreen, Chair 1 Hem Onc Scenery [address] [place] [address] 12/26/2023 9:00 AM EDT Office Visit Urology, [facility] 132 [facility] [place] [address] Manas Marie MD 27 [place] [address] 01/01/2024 9:00 AM EDT Laboratory Laboratory, [facility] 132 [facility] [place] [phone] LongTerrance alvas [address] [place] [address] 01/02/2024 9:15 AM EDT Office Visit Hematology/Oncolog y [facility] [place] [address] [place] [phone] Chandni Almonte MD [address] [place] [address] 01/02/2024 9:45 AM EDT Hem/Onc Treatment Hematology/Oncolog y Treatment, [place] [address] [place] [phone] 01/03/2024 10:30 AM EDT Cardiac Studies Cardiac Studies [address] [place] [address] 01/22/2024 11:00 AM EDT Office Visit Gynecology/Oncolog y, [place] [address] [place] [address] Jocelyn Vera PA-C [address] [place] [facility] [place] [address] 02/06/2024 9:08 AM EDT Hospital Encounter OR [facility], Operating Room, [facility] - 4th Floor [address] [place] [phone] Timoteo Ayala DO 100 N [facility] [place] [address] 02/06/2024 9:08 AM EDT - 02/06/2024 9:54 AM EDT Surgery OR [facility], Operating Room, [facility] - 4th Floor [address] [place] [phone] Timoteo Ayala, DO [address] [place] [address] COLONOSCOPY FLEXIBLE PROXIMAL DIAGNOSTIC Scheduled Procedures Name [...] this encounter Medical Devices Implanted Type Area Crop Specialist Device Identifier Shelf Expiration Date Model / Serial / Lot Power Port 8fr Sngl Lumen Plas - [id number] Implanted:Qty : 1 on 01/05/2023 by Jai Malcolm Jr., MD at OR [facility] Right: Chest CR BARD : PERIPHERAL VASCULAR [id number] 07/08/2024 [id number] / / [id number] documented as of this encounter Advance Directives [...] of Attor johann? No Care Teams Director Cardiology Relationship Specialty Start Date End Date Lina Can MD [address] [place] [address] [place] [address] PCP - General Family Medicine 08/06/22 documented as of this encounter
--- OUTSIDE RECORDS SUMMARY | 2024-05-09 12:32 | External Medical Summary | Summary of Care ---
Author Name Unknown Organization [facility] Address [address] [place] [address] Phone [phone] Care Team Providers Care Pharmacy Benefit Manager Name Role Phone Lina Can MD Primary Care Prov ider Reason for Visit * Reason Onset Date Comments Forms Request 12/15/2023 FMLA Encounter Details Date Type Department Care Team (Late st Contact Info) Description 12/15/2023 Telephone Hematology/Oncology [facility] [place] 200 [facility] [place] [phone] Chandni Almonte MD 200 [facility] [place] [address] Forms Request (FMLA) Allergies Active Allergy Reactions Criticality Noted Date Comments Amoxicillin-Pot Clavulanate 07/13/19 GI upset Doxycycline 07/12/2022 GI upset Oxaliplatin Flushing High 07/27/2023 Shortness of breath Metoclopramide Hives 08/10/2022 documented as of this encounter (statuses as of 12/19/2023) Medications Medication Sig Dispensed Refills Start Date [...] as of this encounter (statuses as of 12/19/2023) Active Problems Problem Noted Date Diagnosed Date [...] as of this encounter (statuses as of 12/19/2023) Immunizations No known immunizationsdocumented as of this [...] 9:00 AM EDT Office Visit Urology, [facility] 132 [facility] [place] [address] Manas Marie MD 27 [place] [address] 01/03/2024 10:30 AM EDT Cardiac Studies Cardiac Studies [address] [place] [address] 01/22/2024 11:00 AM EDT Office Visit Gynecology/Oncolog , [place] 100 [address] [facility] [place] [address] Jocelyn Vera PA-C [address] [place] [address] 02/06/2024 9:08 AM EDT Hospital Encounter OR [facility], Operating Room, [facility] - 4th Floor [address] [place] [phone] Timoteo Ayala DO [address] [place] [address] 02/06/2024 9:08 AM EDT - 02/06/2024 9:54 AM EDT Surgery OR [facility], Operating Room, [facility] - 4th Floor [address] [place] [address] Timoteo Ayala, DO [address] [place] [address] COLONOSCOPY FLEXIBLE PROXIMAL DIAGNOSTIC Scheduled Procedures Name [...] this encounter Medical Devices Implanted Type Area Gas Welder Apprentice Device Identifier Shelf Expiration Date Model / Serial / Lot Power Port 8fr Sngl Lumen Plas - [id number] Implanted:Qty : 1 on 01/05/2023 by Jai Malcolm Jr., MD at OR [facility] Right: Chest CR BARD : PERIPHERAL VASCULAR [id number] 07/08/2024 [id number] / / [id number] documented as of this encounter Advance Directives [...] Power of Attor johann? No Care Teams Pharmacy Benefit Manager Relationship Specialty Start Date End Date Lina Can MD [address] [place] [address] [place] [address] PCP - General Family Medicine 08/06/22 documented as of this encounter
--- OUTSIDE RECORDS SUMMARY | 2024-05-09 12:32 | External Medical Summary | Summary of Care ---
Author Name Unknown Organization [facility] Address [address] [place] [address] Phone [phone] Care Team Providers Care Jackspooler Name Role Phone Lina Can MD Primary [...] INJ., ZIRABEV, 10 MG Chandni Almonte MD [address] [place] [address] Anc Hem/Onc [address] [address] Referral ID Status Reason Start Date Expiration Date V isits Requested Visits Authorized [id number] Authorized 11/22/2023 11/21/2024 999 [id number] Encounter Details Date Type Department Care Team (Latest Contact Info) Description 12/19/2023 9:30 AM EDT Hem/Onc Treatment Hematology/Oncolog y Treatment, [address] [address] Encounter for antineoplastic chemotherapy*; Malignant [...] infusion 4000 mg IV CONTINUOUS 12/18/2023 12/20/2023 Active documented as of this encounter (statuses [...] AM EDT Immunization/Injec tion Hematology/Oncolog y Treatment, [place] [address] [facility] [phone] Park, Chair 1 Hem Onc [place]en[place] [address] [place] [address] 12/26/2023 9:00 AM EDT Office Visit Urology, [facility] 132 [facility] [place] [address] Manas Marie MD 27 [place] [address] 01/01/2024 9:00 AM EDT Laboratory Laboratory, [facility] 132 [facility] [place] [phone] Terrance Long [address] [place] [address] 01/02/2024 9:15 AM EDT Office Visit Hematology/Oncolog y [place], [place] [address] [place] [phone] Chandni Almonte MD [address] [place] [address] 01/02/2024 9:45 AM EDT Hem/Onc Treatment Hematology/Oncolog y Treatment, [place] [address] [place] [phone] 01/03/2024 10:30 AM EDT Cardiac Studies Cardiac Studies [address] [place] [address] 01/22/2024 11:00 AM EDT Office Visit Gynecology/Oncolog y, [place] [address] [facility] [address] Jocelyn Vera PA-C [address] [place] [address] 02/06/2024 9:08 AM EDT Hospital Encounter OR [facility], Operating Room, [facility] - 4th Floor 400 [facility] [place] [phone] Timoteo Ayala, DO [address] [place] [facility] [place] [address] 02/06/2024 9:08 AM EDT - 02/06/2024 9:54 AM EDT Surgery OR [facility], Operating Room, [facility] - 4th Floor [address] [place] [address] Timoteo Ayala DO [address] [place] [facility] [place] [address] COLONOSCOPY FLEXIBLE PROXIMAL DIAGNOSTIC Scheduled Procedures Name [...] this encounter Medical Devices Implanted Type Area Integration Developer Device Identifier Shelf Expiration Date Model / Serial / Lot Power Port 8fr Sngl Lumen Plas - [id number] Implanted:Qty : 1 on 01/05/2023 by Jai Malcolm Jr., MD at OR [facility] Right: Chest CR BARD : PERIPHERAL VASCULAR [id number] 07/08/2024 [id number] / / [id number] documented as of this encounter Visit Diagnoses [...] ONCE PRN Other, Hypersensitivity Reaction, Starting on Mon12/19/23 at 1014, Until Mon12/20/23 at 1013, For 24 hours EPINEPHrine 1 MG/ML inj 0.3 mg 0.3 mg, Intramuscular, ONCE PRN Other, Hypersensitivity Reaction or Anaphylaxis, Starting on Mon12/19/23 at 1014, Until Mon12/20/23 at 1013, For 24 hours hEParin 100 UNIT/ML Lock Flush inj 500 Units 500 Units (5 mL), IV Lock, PRN Other, IV Flush, Starting on Mon12/19/23 at 1014, Until Mon12/20/23 at 1013, For 24 hours, Do not flush if lock, PICC, or central line not in place; IV infusing or unable to flush. Hydrocortisone Sod Suc (PF) (Solu-Cortef) inj 100 mg 100 mg, IV Push, ONCE PRN Other, Hypersensitivity Reaction, Starting on Mon12/19/23 at 1014, Until Mon12/20/23 at 1013, For 24 hours LORAzepam (Ativan) tab 0.5 mg 0.5 mg, Oral, ONCE PRN Anxiety, Nausea, Starting on Mon12/19/23 at 0830, Until Discontinued NSS infusion Intravenous, at 50 mL/hr, PRN, Starting on Mon12/19/23 at 0830, Until Discontinued, Maintenance line Start Infusion 12/19/2023 10:19 AM EDT 50 mL/hr oxygen GAS Inhalation, OXYGEN, First dose on Mon12/19/23 at 1045, Until Discontinued, Device/Managed by: Low Flow Device, [...] Push, PRN Other, IV Flush, Starting on Mon12/19/23 at 1014, Until Mon12/20/23 at 1013, For 24 hours, Do not flush if lock, PICC, or central line not in place; IV infusing or unable to flush. Inactive Administered Medications - up to 3 [...] 11:32 AM EDT 650 mg 170 mL/hr Palonosetron (Aloxi) inj SOLN 0.25 mg 0.25 mg, IV Push, ONCE, On Mon12/19/23 at 1045, For 1 dose, Restricted per [facility] antiemetic guidelines Given 12/19/2023 10:21 AM EDT [...] Power of Attor johann? No Care Teams Jackspooler Relationship Specialty Start Date End Date Lina Can MD [address] [place] [address] [place] [address] PCP - General Family Medicine 08/06/22 documented as of this encounter
--- OUTSIDE RECORDS SUMMARY | 2024-05-09 12:32 | External Medical Summary | Summary of Care ---
Author Name Unknown Organization [facility] Address [address] [place] [address] Phone [phone] Care Team Providers Care Tape Transferrer Name Role Phone Lina Can MD Primary [...] INJ., ZIRABEV, 10 MG Chandni Almonte MD [address] [place] [address] Anc Hem/Onc [address] [address] Referral ID Status Reason Start Date Expiration Date V isits Requested Visits Authorized [id number] Authorized 11/22/2023 11/21/2024 999 999 Encounter Details Date Type Department Care Team (Latest Contact Info) Description 12/19/2023 9:30 AM EDT Hem/Onc Treatment Hematology/Oncolog y Treatment, [address] [address] Encounter for antineoplastic chemotherapy*; Malignant neoplasm of sigmoid colon (HCC) Allergies Active Allergy Reactions Criticality Noted Date Comments Amoxicillin-Pot Clavulanate 07/13/19 GI upset Doxycycline 07/12/2022 GI upset Oxaliplatin Flushing High 07/27/2023 Shortness of breath Metoclopramide Hives 08/10/2022 documented as of this encounter (statuses as of 12/25/2023) Medications Medication Sig Dispensed Refills Start Date [...] infusion 4000 mg IV CONTINUOUS 12/18/2023 12/20/2023 Ended documented as of this encounter (statuses as of 12/25/2023) Active Problems Problem Noted Date Diagnosed Date [...] as of this encounter (statuses as of 12/25/2023) Immunizations No known immunizationsdocumented as of this [...] 12/26/2023 9:00 AM EDT Office Visit Urology, [facility] 132 [facility] [place] [address] Manas Marie MD [address] [place] [address] 01/01/2024 9:00 AM EDT Laboratory Laboratory, [facility] 132 [facility] [place] [phone] Terrance Long 132 [facility] [place] [address] 01/02/2024 9:15 AM EDT Office Visit Hematology/Oncolog y [place] [address] [place] [phone] Chandni Almonte MD [address] [place] [address] 01/02/2024 9:45 AM EDT Hem/Onc Treatment Hematology/Oncolog y Treatment, [place] [address] [place] [address] 01/03/2024 10:30 AM EDT Cardiac Studies Cardiac Studies [address] [place] [address] 01/22/2024 11:00 AM EDT Office Visit Gynecology/Oncolog y, [place] [address] [place] [address] Jocelyn Vera PA-C [address] [place] [address] 02/06/2024 9:08 AM EDT Hospital Encounter OR [facility], Operating Room, [facility] - 4th Floor 400 [place] [phone] Timoteo Ayala DO [address] [place] [address] 02/06/2024 9:08 AM EDT - 02/06/2024 9:54 AM EDT Surgery OR [facility], Operating Room, [facility] - 4th Floor 400 [place] [phone] Timoteo Ayala DO [address] [place] [address] COLONOSCOPY FLEXIBLE PROXIMAL DIAGNOSTIC Scheduled Procedures Name [...] this encounter Medical Devices Implanted Type Area Molecular Pathologist Device Identifier Shelf Expiration Date Model / Serial / Lot Power Port 8fr Sngl Lumen Plas - [id number] Implanted:Qty : 1 on 01/05/2023 by Jai Malcolm Jr., MD at OR [facility] Right: Chest CR BARD : PERIPHERAL VASCULAR [id number] 07/08/2024 [id number] / / [id number] documented as of this encounter Visit Diagnoses [...] at 1045, For 1 dose, Restricted per S antiemetic guidelines Given 12/19/2023 10:21 AM EDT [...] of Attor johann? No Care Teams Tape Transferrer Relationship Specialty Start Date End Date Lina Can MD [address] [place] [address] [place] [address] PCP - General Family Medicine 08/06/22 documented as of this encounter
--- OUTSIDE RECORDS SUMMARY | 2024-05-09 12:32 | External Medical Summary | Summary of Care ---
Author Name Unknown Organization [facility] Address [address] [place] [address] Phone [phone] Care Team Providers Care Dry Mop Maker Name Role Phone Lina Can MD Primary Care Prov ider Reason for Visit * Reason Onset Date Comments Medication Refill 12/18/2023 Encounter Details Date Type Department Care Team (Late st Contact Info) Description 12/18/2023 Refill Hematology/Oncology Treatment, [place] [address] [place] [address] Wade Spicer MD 200 [place] [address] Malignant neoplasm of sigmoid colon (HCC)* Allergies [...] for Nausea. 30 Tablet 1 12/18/2023 Active Hospital, Clinic, or Other Facility Administered [...] Telephone Encounter - Jacinto Delaney RN - 12/18/2023 2:23 PM EDTSigned Prescriptions: Disp Refills Ondansetron HCl 8 MG Oral Tablet (Zofran) 30 Tab*1 Sig: Take 1 Tablet by mouth every 8 hours as needed for Nausea.Authorizing Provider: WADE SPICER Prochlorperazine Maleate 10 MG Oral Tablet*30 Tab*1 Sig: Take 1 Tablet by mouth every 6 hours as needed for Nausea.Authorizing Provider: WADE SPICER * Telephone Encounter - Tereza Gray RN - 12/18/2023 1:42 PM EDT Pended new prescriptions for zofran/ compazine. documented in this encounter Plan of Treatment Upcoming Encounters Date Type Department Care Team (Late st Contact Info) Description 12/19/2023 9:30 AM EDT Hem/Onc Treatment Hematology/Oncolo gy Treatment, [place] [address] [place] [address] Encounter for antineoplastic chemotherapy*; Malignant neoplasm of sigmoid colon (HCC) 12/26/2023 9:00 AM EDT Office Visit Urology, [facility] 132 [facility] [place] [address] Manas Marie MD 27 [facility] [place] [address] 01/03/2024 10:30 AM EDT Cardiac Studies Cardiac Studies [address] [place] [address] 01/22/2024 11:00 AM EDT Office Visit Gynecology/Oncolo gy, [place] [address] [place] [address] Jocelyn Vera PA-C [address] [place] [address] 02/06/2024 9:08 AM EDT Hospital Encounter OR [facility], Operating Room, [facility] - 4th Floor 400 [facility] [phone] Timoteo Ayala DO [address] [place] [address] 02/06/2024 9:08 AM EDT - 02/06/2024 9:54 AM EDT Surgery OR [facility], Operating Room, [facility] - 4th Floor 400 [place] [address] Timoteo Ayala, DO [address] [place] [address] COLONOSCOPY FLEXIBLE PROXIMAL DIAGNOSTIC Scheduled Procedures Name [...] this encounter Medical Devices Implanted Type Area Air Hammer Operator Device Identifier Shelf Expiration Date Model / Serial / Lot Power Port 8fr Sngl Lumen Plas - [id number] Implanted:Qty : 1 on 01/05/2023 by Jai Malcolm Jr., MD at OR [facility] Right: Chest CR BARD : PERIPHERAL VASCULAR [id number] 07/08/2024 [id number] / / [id number] documented as of this encounter Visit Diagnoses Diagnosis Malignant neoplasm of sigmoid colon (HCC)- Primary Malignant neoplasm of sigmoid colon Encounter for [...] Power of Attor johann? No Care Teams Dry Mop Maker Relationship Specialty Start Date End Date Lina Can MD [address] [place] [address] [place] [address] PCP - General Family Medicine 08/06/22 documented as of this encounter
--- OUTSIDE RECORDS SUMMARY | 2024-05-09 12:32 | External Medical Summary ---
Author Name Unknown Address Unknown Organization [facility] [address] [place] [address] Laboratory Report Ordering Provider Test Date Status DANNIELLE OLVERA 12/18/2023 08:54:22 Final Observation Date Value Abnormality Reference (Units ) Status WBC, Total 12/18/2023 08:54:22 4.85 4.00-10.8 0 (K/uL) Final RBC 12/18/2023 08:54:22 4.25 3.85-5.15 (M/uL) Final Hemoglobin 12/18/2023 08:54:22 12.7 12.0-15.3 (g/dL) Final HCT 12/18/2023 08:54:22 37.9 36.0-45.2 (%) Final MCV 12/18/2023 08:54:22 89.2 81.5-97.5 (fL) Final MCH 12/18/2023 08:54:22 29.9 27.0-34.0 (pg) Final MCHC 12/18/2023 08:54:22 33.5 32.0-36.0 (g/dL) Final RDW 12/18/2023 08:54:22 15.7 11.5-15.5 (%) Final Platelets 12/18/2023 08:54:22 93 Below low normal 140 -400 (K/uL) Final MPV 12/18/2023 08:54:22 8.8 6.6-11.1 ( fL) Final Performing Location [facility] [place] [address]
--- OUTSIDE RECORDS SUMMARY | 2024-05-09 12:32 | External Medical Summary | Summary of Care ---
Author Name Unknown Organization [facility] Address [address] [place] [address] Phone [phone] Care Team Providers Care Biomass Plant Manager Name Role Phone Lina Can MD Primary Care Prov ider Reason for Visit * Reason Onset Date Comments Forms Request 12/15/2023 FMLA Encounter Details Date Type Department Care Team (Late st Contact Info) Description 12/15/2023 Telephone Hematology/Oncology [facility] [place] 200 [facility] [place] [address] Chandni Almonte MD 200 [facility] [place] [address] Forms Request (FMLA) Allergies Active Allergy Reactions [...] AM EDT Hem/Onc Treatment Hematology/Oncolo gy Treatment, [place] [address] [place], [place] [phone] Encounter for antineoplastic chemotherapy*; Malignant neoplasm of sigmoid colon (HCC) 12/26/2023 9:00 AM EDT Office Visit Urology, [facility] 132 [facility] [place] [address] Manas Marie MD 27 [place] [address] 01/03/2024 10:30 AM EDT Cardiac Studies Cardiac Studies [address] [place] [address] 01/22/2024 11:00 AM EDT Office Visit Gynecology/Oncolo [place], [place] [address] [place] [address] Jocelyn Vera PA-C [address] [place] [address] 02/06/2024 9:08 AM EDT Hospital Encounter OR [facility], Operating Room, [facility] - 4th Floor 400 [place] [address] Timoteo Ayala DO [address] [place] [address] 02/06/2024 9:08 AM EDT - 02/06/2024 9:54 AM EDT Surgery OR [facility], Operating Room, [facility] - 4th Floor [address] [place] [address] Timoteo Ayala DO [address] [place] [address] COLONOSCOPY FLEXIBLE PROXIMAL DIAGNOSTIC Scheduled Procedures Name [...] this encounter Medical Devices Implanted Type Area Transit Authority Police Officer Device Identifier Shelf Expiration Date Model / Serial / Lot Power Port 8fr Sngl Lumen Plas - [id number] Implanted:Qty : 1 on 01/05/2023 by Jai Malcolm Jr., MD at [facility] Right: Chest CR BARD : PERIPHERAL VASCULAR [id number] 07/08/2024 [id number] / / [id number] documented as of this encounter Advance Directives [...] Power of Attor johann? No Care Teams Biomass Plant Manager Relationship Specialty Start Date End Date Lina Can MD [address] [place] [address] [place] [address] PCP - General Family Medicine 08/06/22 documented as of this encounter
--- OUTSIDE RECORDS SUMMARY | 2024-05-09 12:32 | External Medical Summary ---
Author Name Unknown Address Unknown Organization K0G[facility] [address] [place] [address] Laboratory Report Ordering Provider Test Date Status DANNIELLE OLVERA 12/18/2023 08:54:22 Final Observation Date Value Abnormality Reference (Units ) Status SYNC LEUKOCYTES IN BLOOD BY AUTOMATED COUNT 12/18/2023 08:54:22 4.85 4.00-10.80 (K/uL) Final Segs 12/18/2023 08:54:22 63.7 40.0-75.0 (%) Final Lymphs % 12/18/2023 08:54:22 21.9 18.0-42.0 (%) Final Monos 12/18/2023 08:54:22 7.4 1.0-11.0 (%) Final Eosinophils 12/18/2023 08:54:22 6.6 Above high normal 0.0-6.0 (%) Final Basos 12/18/2023 08:54:22 0.4 0.0-2.0 (%) Final Absolute Segs 12/18/2023 08:54:22 3.09 1.80-7.70 (K/uL) Final Lymphs, absolute 12/18/2023 08:54:22 1.06 1.00-4.80 (K/ul) Final Monos, Abs 12/18/2023 08:54:22 0.36 0.00-1.10 (K/uL) Final Eos, Abs 12/18/2023 08:54:22 0.32 0.00-0.70 (K/uL) Final Basos, Abs 12/18/2023 08:54:22 0.02 0.00-0.20 (K/uL) Final Performing Location [facility] [address] [place] [address]
--- OUTSIDE RECORDS SUMMARY | 2024-05-09 12:32 | External Medical Summary ---
Author Name Unknown Address Unknown Organization [facility] [address] [place] [address] Laboratory Report Ordering Provider Test Date Status DANNIELLE OLVERA 12/18/2023 08:54:22 Final Observation Date Value Abnormality Reference (Units ) Status Magnesium 12/18/2023 08:54:22 2.0 1.5-2.6 (m g/dL) Final Performing Location [facility] - [address] [address]
--- OUTSIDE RECORDS SUMMARY | 2024-05-09 12:32 | External Medical Summary | Summary of Care ---
Author Name Unknown Organization [facility] Address [address] [place] [address] Phone [phone] Care Team Providers Care Operations Representative Name Role Phone Lian Can MD Primary Care Prov ider Encounter Details Date Type Department Care Team (Late st Contact Info) Description 12/18/[address] [facility] [address] [place] [address] Chandni Almonte MD 200 [place], [place] [phone] Allergies Active Allergy Reactions Criticality Noted Date [...] 4000 mg IV CONTINUOUS 12/18/2023 12/20/2023 Active Fluorouracil (5-Fu) 3,825 mg in NSS 138 mL infusion 3825 mg IV CONTINUOUS 07/24/2023 12/18/2023 Discontinued documented as of this encounter (statuses [...] AM EDT Hem/Onc Treatment Hematology/Oncolog y Treatment, [place] [address] [place] [address] 12/26/2023 9:00 AM EDT Office Visit Urology, [facility] 132 [facility] [place] [address] Manas Marie MD 27 [place] [address] 01/03/2024 10:30 AM EDT Cardiac Studies Cardiac Studies [address] [place] [address] 01/22/2024 11:00 AM EDT Office Visit Gynecology/Oncolog y, [place] [address] [place] [address] Jocelyn Vera PA-C [address] [place] [address] 02/06/2024 9:08 AM EDT Hospital Encounter OR [facility], Operating Room, [facility] - 4th Floor 400 [place] [address] Timoteo Ayala, DO [address] [place] [address] 02/06/2024 9:08 AM EDT - 02/06/2024 9:54 AM EDT Surgery OR [facility], Operating Room, [facility] - 4th Floor 400 [place] [address] Timoteo Ayala, DO [address] [place] [address] COLONOSCOPY FLEXIBLE PROXIMAL DIAGNOSTIC Scheduled Procedures Name [...] this encounter Medical Devices Implanted Type Area [employer] Worker Device Identifier Shelf Expiration Date Model / Serial / Lot Power Port 8fr Sngl Lumen Plas - [id number] Implanted:Qty : 1 on 01/05/2023 by Jai Malcolm Jr., MD at [facility] Right: Chest CR BARD : PERIPHERAL VASCULAR [id number] 07/08/2024 [id number] / / [id number] documented as of this encounter Advance Directives [...] Power of Attor johann? No Care Teams Operations Representative Relationship Specialty Start Date End Date Lina Can MD [address] [place] [address] [place] [address] PCP - General Family Medicine 08/06/22 documented as of this encounter
--- OUTSIDE RECORDS SUMMARY | 2024-05-09 12:32 | External Medical Summary | Summary of Care ---
Author Name Unknown Organization [facility] Address [address] [place] [address] Phone [phone] Care Team Providers Care Bag Adjuster Name Role Phone Lina Can MD Primary Care Prov ider Reason for Visit * Reason Onset Date Comments Surgery 12/06/2023 Jamie Encounter Details Date Type Department Care Team (Late st Contact Info) Description 12/06/2023 Telephone General Surgery [place] [address] [place] [address] [place] [address] Timoteo Ayala, DO [address] [place] [address] Surgery ([place]) Allergies Active Allergy Reactions Criticality Noted Date Comments Amoxicillin-Pot Clavulanate 07/13/19 GI upset Doxycycline 07/12/2022 GI upset Oxaliplatin Flushing High 07/27/2023 Shortness of breath Metoclopramide Hives 08/10/2022 documented as of this encounter (statuses as of 12/06/2023) Medications Medication Sig Dispensed Refills Start Date [...] as of this encounter (statuses as of 12/06/2023) Active Problems Problem Noted Date Diagnosed Date [...] as of this encounter (statuses as of 12/06/2023) Immunizations No known immunizationsdocumented as of this [...] Telephone Encounter - Bruna Garcia OSA - 12/06/2023 12:01 PM EDT Call made to patient to discuss rescheduling her surgery that is scheduled with on 12/12/23 due to he will not be available. Patient was rescheduled to 02/06/24 with her accepting. documented in this encounter Plan of Treatment Upcoming Encounters Date Type Department Care Team (Late st Contact Info) Description 12/18/2023 9:30 AM EDT Laboratory Laboratory, [facility] [address] [place] [phone] Terrance Long [address] [place] [address] 12/19/2023 9:30 AM EDT Hem/Onc Treatment Hematology/Oncology Treatment, [place] [address] [place] [address] 12/26/2023 9:00 AM EDT Office Visit Urology, [facility] [address] [place] [address] Manas Marie MD 27 [place] [address] 01/03/2024 10:30 AM EDT Cardiac Studies Cardiac Studies [address] [place] [address] 01/22/2024 11:00 AM EDT Office Visit Gynecology/Oncology, [place] [address] [place] [address] Jocelyn Vera PA-C [address] [place], [place] [phone] 02/06/2024 Hospital Encounter OR [facility], Operating Room, [facility] - 4th Floor 400 [facility] [place] [address] Timoteo Ayala DO [address] [place] [address] Scheduled Procedures Name Priority Associated Diagnoses Date/Ti [...] this encounter Medical Devices Implanted Type Area Pharmaceutical Laboratory Technician Device Identifier Shelf Expiration Date Model / Serial / Lot Power Port 8fr Sngl Lumen Plas - [id number] Implanted:Qty : 1 on 01/05/2023 by Jai Malcolm Jr., MD at OR [facility] Right: Chest CR BARD : PERIPHERAL VASCULAR [id number] 07/08/2024 [id number] / / [id number] documented as of this encounter Advance Directives [...] Power of Attor johann? No Care Teams Bag Adjuster Relationship Specialty Start Date End Date Lina Can MD [address] [place] [address] [place] [address] PCP - General Family Medicine 08/06/22 documented as of this encounter
--- OUTSIDE RECORDS SUMMARY | 2024-05-09 12:33 | External Medical Summary | Summary of Care ---
Author Name Unknown Organization [facility] Address [address] [place] [address] Phone [phone] Care Team Providers Care Manager Mass Name Role Phone Lina Can MD Primary Care Prov ider Encounter Details Date Type Department Care Team (Late st Contact Info) Description 11/21/2023 Orders Only Hematology/Oncology [facility] [place] [address] [facility] [place] [phone] Chandni Almonte MD 200 [place] [address] Allergies Active Allergy Reactions Criticality Noted Date Comments Amoxicillin-Pot Clavulanate 07/13/19 GI upset Doxycycline 07/12/2022 GI upset Oxaliplatin [place] High 07/27/2023 Shortness of breath Metoclopramide Hives 08/10/2022 documented as of this encounter (statuses as of 11/21/2023) Medications Medication Sig Dispensed Refills Start Date [...] as of this encounter (statuses as of 11/21/2023) Active Problems Problem Noted Date Diagnosed Date [...] as of this encounter (statuses as of 11/21/2023) Immunizations No known immunizationsdocumented as of this [...] Care Team (Late st Contact Info) Description 11/22/2023 9:00 AM EDT Immunization/Inje ction Hematology/Oncolog y Treatment, [place] [address] [facility] [place] [address] Nasreen, Chair 3 Hem Onc [address] [place] [address] 11/22/2023 9:30 AM EDT Office Visit Hematology/Oncolog y [facility] Nasreen [place] 200 [place] [address] Chandni Almonte MD 200 [place] [address] 12/12/2023 8:41 AM EDT Hospital Encounter OR [facility], Operating Room, [facility] - 4th Floor [address] [place] [address] Timoteo Ayala, DO [facility] [address] 12/12/2023 8:41 AM EDT - 12/12/2023 9:27 AM EDT Surgery OR [facility], Operating Room, [facility] - 4th Floor 400 [place] [address] Timoteo Ayala DO [address] [place] [address] COLONOSCOPY FLEXIBLE PROXIMAL DIAGNOSTIC 12/26/2023 9:00 AM EDT Office Visit Urology, [facility] 132 [facility] [place] [address] Manas Marie MD 27 [facility] [place] [address] 01/03/2024 10:30 AM EDT Cardiac Studies Cardiac Studies [address] [place] [address] 01/22/2024 11:00 AM EDT Office Visit Gynecology/Oncolog [facility] [address] [place] [address] Jocelyn Vera PA-C [address] [place] [address] Scheduled Procedures Name Priority Associated Diagnoses Date/Ti [...] this encounter Medical Devices Implanted Type Area Dedicated Truck Driver Device Identifier Shelf Expiration Date Model / Serial / Lot Power Port 8fr Sngl Lumen Plas - [id number] Implanted:Qty : 1 on 01/05/2023 by Jai Maclolm Jr., MD at [facility] Right: Chest CR BARD : PERIPHERAL VASCULAR [id number] 07/08/2024 [id number] / / [id number] documented as of this encounter Advance Directives [...] of Attor johann? No Care Teams Manager Mass Relationship Specialty Start Date End Date Lina Can MD [address] [place] [address] [place] [address] PCP - General Family Medicine 08/06/22 documented as of this encounter
--- OUTSIDE RECORDS SUMMARY | 2024-05-09 12:33 | External Medical Summary | Summary of Care ---
Author Name Unknown Organization [facility] Address [address] [place] [address] Phone [phone] Care Team Providers Care T Rail Turner Name Role Phone Lina Can MD Primary Care Prov ider Encounter Details Date Type Department Care Team (Late st Contact Info) Description 11/28/2023 Orders Only Hematology/Oncology, [facility] 400 [place] [address] Chandni Almonte MD [address] [place] [address] Allergies Active Allergy Reactions Criticality Noted Date Comments Amoxicillin-Pot Clavulanate 07/13/19 23 GI upset Doxycycline 07/12/2022 GI upset Oxaliplatin [place] High 07/27/2023 Shortness of breath Metoclopramide Hives 08/10/2022 documented as of this encounter (statuses as of 11/28/2023) Medications Medication Sig Dispensed Refills Start Date [...] as of this encounter (statuses as of 11/28/2023) Active Problems Problem Noted Date Diagnosed Date [...] as of this encounter (statuses as of 11/28/2023) Immunizations No known immunizationsdocumented as of this [...] 12/12/2023 8:41 AM EDT Hospital Encounter OR [facility], Operating Room, [facility] - 4th Floor [address] [place] [place] [address] Timoteo Ayala, DO [address] [place] [address] 12/12/2023 8:41 AM EDT - 12/12/2023 9:27 AM EDT Surgery OR [facility], Operating Room, [facility] - 4th Floor [address] [place] [address] Timoteo Ayala, DO [address] [place] [address] COLONOSCOPY FLEXIBLE PROXIMAL DIAGNOSTIC 12/26/2023 9:00 AM EDT Office Visit Urology, [facility] 132 [facility] [place] [address] Manas Marie MD 27 [place] [address] 01/03/2024 10:30 AM EDT Cardiac Studies Cardiac Studies [address] [place] [address] 01/22/2024 11:00 AM EDT Office Visit Gynecology/Oncolog Debbie brush [address] [place] [address] Jocelyn Vera PA-C [address] [place] [address] Scheduled Procedures Name Priority Associated Diagnoses Date/Ti [...] this encounter Medical Devices Implanted Type Area Electronics Test Engineer Device Identifier Shelf Expiration Date Model / Serial / Lot Power Port 8fr Sngl Lumen Plas - [id number] Implanted:Qty : 1 on 01/05/2023 by Jai Malcolm Jr., MD at OR [facility] Right: Chest CR BARD : PERIPHERAL VASCULAR [id number] 07/08/2024 [id number] / / [id number] documented as of this encounter Advance Directives [...] Power of Attor johann? No Care Teams T Rail Turner Relationship Specialty Start Date End Date Lina Can MD [address] [place] [address] [place] [address] PCP - General Family Medicine 08/06/22 documented as of this encounter
--- OUTSIDE RECORDS SUMMARY | 2024-05-09 12:33 | External Medical Summary | Summary of Care ---
Author Name Unknown Organization [facility] Address [address] [place] [address] Phone [phone] Care Team Providers Care Logging Worker Name Role Phone Lina Can MD Primary Care Prov ider Reason for Visit * Reason Onset Date Comments Precert Future 11/21/2023 Zirabev/ FOLFIRI Encounter Details Date Type Department Care Team (Late st Contact Info) Description 11/21/2023 Telephone Hematology/Oncology Treatment, [place] 200 [place] [address] Chandni Almonte MD [address] [place] [address] Precert Future (Zirabev/ FOLFIRI) Allergies Active Allergy Reactions Criticality Noted Date [...] Telephone Encounter - Tereza Gray RN - 11/28/2023 9:32 AM EDT Referral entered but not routed to nursing. Nurse education complete. Patient completed radiation 11/30, due to colonoscopy 12/11 would like to start treatment week of 12/18/23. Scheduling: please contact patient to schedule for week of 12/17 Day prior to treatment: - labs "CBCd, CMP, urine" - labs must be in AM at [facility] or [facility] Treatment day: - 503 schedule for 4 hour appt "C1D1 FOLFIRI/ zirabev- Vitaline" (Suzy) - treatment must be Monday or Monday as patient will need to return 2 days later for pump disconnect Thanks! * Telephone Encounter - Glo Drake OSA - 11/22/2023 10:21 AM EDT This was missed. Pt was seen today and in providers dispo they wanted a phone chemo edu It was scheduled and pt is aware * Telephone Encounter - Tereza Gray, RN - 11/21/2023 2:48 PM EDT Order received for zirabev/ FOLFIRI. [place] plan adjusted. Waiting for auth. Patient coming tomorrow for consent. Hep B labs 12/22/22. Referral TE sent to [facility]. Patient already has port. Scheduling: please add nurse education visit tomorrow at 10:30am. Thanks! documented in this encounter Plan of Treatment Upcoming Encounters Date Type Department Care Team (Late st Contact Info) Description 12/12/2023 8:41 AM EDT Hospital Encounter OR [facility], Operating Room, [facility] - 4th Floor 400 [place] [address] Timoteo Ayala, DO [address] [place] [address] 12/12/2023 8:41 AM EDT - 12/12/2023 9:27 AM EDT Surgery OR [facility], Operating Room, [facility] - 4th Floor [address] [place] [address] Timoteo Ayala, DO [address] [place] [address] COLONOSCOPY FLEXIBLE PROXIMAL DIAGNOSTIC 12/26/2023 9:00 AM EDT Office Visit Urology, [facility] 132 [facility] [place] [address] Manas Marie MD [address] [place] [address] 01/03/2024 10:30 AM EDT Cardiac Studies Cardiac Studies [address] [place] [address] 01/22/2024 11:00 AM EDT Office Visit Gynecology/Oncolog [facility] [address] [place] [address] Jocelyn Vera PA-C [address] [place] [address] Scheduled Orders Name Type Priority Associated Diagnoses Orde r Schedule CBC WITH WBC DIFFERENTIAL Lab STAT Malignant neoplasm of sigmoid colon (HCC) Every 2 Weeks for 27 Occurrences starting 11/21/2023 until 11/20/2024 COMPREHENSIVE METABOLIC PANEL Lab STAT Malignant neoplasm of sigmoid colon (HCC) Every 2 Weeks for 27 Occurrences starting 11/21/2023 until 11/20/2024 URINALYSIS, REFLEX TO MICROSCOPIC Lab STAT Malignant neoplasm of sigmoid colon (HCC) Every 2 Weeks for 27 Occurrences starting 11/21/2023 until 11/20/2024 Scheduled Procedures Name Priority Associated Diagnoses Date/Ti [...] encounter Medical Devices Implanted Type Area Global Supply Chain Director Device Identifier Shelf Expiration Date Model / Serial / Lot Power Port 8fr Sngl Lumen Plas - [id number] Implanted:Qty : 1 on 01/05/2023 by Jai Malcolm Jr., MD at OR [facility] Right: Chest CR BARD : PERIPHERAL VASCULAR [id number] 07/08/2024 [id number] / / [id number] documented as of this encounter Visit Diagnoses [...] Power of Attor johann? No Care Teams Logging Worker Relationship Specialty Start Date End Date Lina Can MD [address] [place] [address] [place] [address] PCP - General Family Medicine 08/06/22 documented as of this encounter
--- OUTSIDE RECORDS SUMMARY | 2024-05-09 12:33 | External Medical Summary | Summary of Care ---
Author Name Unknown Organization [facility] Address [address] [place] [address] Phone [phone] Care Team Providers Care Self Rising Flour Mixer Name Role Phone Lina Can MD Primary Care Prov ider Reason for Visit * Reason Onset Date Comments Referral 11/21/2023 IS Encounter Details Date Type Department Care Team (Late st Contact Info) Description 11/21/2023 Telephone Hematology/Oncology Treatment, [place] [address] [place] [address] Chandni Almonte MD 200 [place] [address] Referral ([facility]) Allergies Active Allergy Reactions Criticality [...] AM EDT Immunization/Inje ction Hematology/Oncolog y Treatment, [place] [address] [place] [address] Nasreen, Chair 3 Hem Onc [facility] [address] [place] [address] [address] 11/22/2023 9:30 AM EDT Office Visit Hematology/Oncolog y Jean Downey [place] [address] [place] [place] [address] Chandni Almonte MD [address] [place] [address] 12/12/2023 8:41 AM EDT Hospital Encounter OR [facility], Operating Room, [facility] - 4th Floor [address] [place] [address] Timoteo Ayala DO [address] [place], [place] [address] 12/12/2023 8:41 AM EDT - 12/12/2023 9:27 AM EDT Surgery OR [facility], Operating Room, [facility] - 4th Floor [address] [place] [address] Timoteo Aayla, DO [address] [place], [place] [address] COLONOSCOPY FLEXIBLE PROXIMAL DIAGNOSTIC 12/26/2023 9:00 AM EDT Office Visit Urology, [facility] 132 [place] [address] Manas Marie MD 27 [facility] [place] [address] 01/03/2024 10:30 AM EDT Cardiac Studies Cardiac Studies [address] [place] [address] 01/22/2024 11:00 AM EDT Office Visit Gynecology/Oncolog y, [place] [address] [facility] [place] [place] [address] Jocelyn Vera PA-C [address] [place], [place] [address] Scheduled Procedures Name Priority Associated Diagnoses Date/Ti [...] this encounter Medical Devices Implanted Type Area Boat Carpenter Mechanic Device Identifier Shelf Expiration Date Model / Serial / Lot Power Port 8fr Sngl Lumen Plas - [id number] Implanted:Qty : 1 on 01/05/2023 by Jai Malcolm Jr., MD at OR [facility] Right: Chest CR BARD : PERIPHERAL VASCULAR [id number] 07/08/2024 [id number] / / [id number] documented as of this encounter Advance Directives [...] Power of Attor johann? No Care Teams Self Rising Flour Mixer Relationship Specialty Start Date End Date Lina Can MD [address] [place] [address] [place] [address] PCP - General Family Medicine 08/06/22 documented as of this encounter
--- OUTSIDE RECORDS SUMMARY | 2024-05-09 12:33 | External Medical Summary | Summary of Care ---
Author Name Unknown Organization [facility] Address [address] [place] [address] Phone [phone] Care Team Providers Care Candy Bar Attendant Name Role Phone Lina Can MD Primary Care Prov ider Encounter Details Date Type Department Care Team (Late st Contact Info) Description 11/21/2023 Orders Only Hematology/Oncology [facility] [place] 200 [facility] [place] [address] Chandni Almonte MD 200 [place] [address] Allergies Active Allergy Reactions Criticality Noted Date [...] AM EDT Immunization/Inje ction Hematology/Oncolog y Treatment, [place] [address] [facility] [place] [address] Nasreen, Chair 3 Hem Onc [address] [place] [address] 11/22/2023 9:30 AM EDT Office Visit Hematology/Oncolog y [facility] Nasreen [place] 200 [place] [address] Chandni Almonte MD 200 [place] [address] 12/12/2023 8:41 AM EDT Hospital Encounter OR GL, Operating Room, [facility] - 4th Floor [address] [place] [address] Timoteo Ayala, DO 100 [facility] [address] 12/12/2023 8:41 AM EDT - 12/12/2023 9:27 AM EDT Surgery OR [facility], Operating Room, [facility] - 4th Floor 400 [facility] [place] [place] [address] Timoteo Ayala DO [address] [place] [address] COLONOSCOPY FLEXIBLE PROXIMAL DIAGNOSTIC 12/26/2023 9:00 AM EDT Office Visit Urology, [facility] 132 [facility] [place] [address] Manas Marie MD 27 [facility] [place] [address] 01/03/2024 10:30 AM EDT Cardiac Studies Cardiac Studies [address] [place] [address] 01/22/2024 11:00 AM EDT Office Visit Gynecology/Oncolog [facility] [address] [place] [address] Jocelyn Vera PA-C [address] [place] [address] Scheduled Procedures Name Priority Associated Diagnoses Date/Ti [...] this encounter Medical Devices Implanted Type Area Press Operator Apprentice Device Identifier Shelf Expiration Date Model / Serial / Lot Power Port 8fr Sngl Lumen Plas - [id number] Implanted:Qty : 1 on 01/05/2023 by Jai Malcolm Jr., MD at [facility] Right: Chest CR BARD : PERIPHERAL VASCULAR [id number] 07/08/2024 [id number] / / [id number] documented as of this encounter Advance Directives [...] Power of Attor johann? No Care Teams Candy Bar Attendant Relationship Specialty Start Date End Date Lina Can MD [address] [place] [address] [place] [address] PCP - General Family Medicine 08/06/22 documented as of this encounter
--- OUTSIDE RECORDS SUMMARY | 2024-05-09 12:33 | External Medical Summary | Summary of Care ---
Author Name Unknown Organization [facility] Address [address] [place] [address] Phone [phone] Care Team Providers Care Cafe Operator Name Role Phone Lina Can MD Primary Care Prov ider Reason for Visit * Reason Onset Date Comments Precert Future 11/21/2023 Zirabev/ FOLFIRI Encounter Details Date Type Department Care Team (Late st Contact Info) Description 11/21/2023 Telephone Hematology/Oncology Treatment, [place] 200 [place] [address] Chandni Almonte MD [address] [place] [address] Precert Future (Zirabev/ FOLFIRI) Allergies Active Allergy [...] Encounter - Tereza Gray RN - 11/21/2023 2:48 PM EDT Order received for zirabev/ FOLFIRI. [place] plan adjusted. Waiting for auth. Patient coming tomorrow for consent. Hep B labs 12/22/22. Referral TE sent to [facility] Patient already has port. Scheduling: please add nurse education visit tomorrow at 10:30am. Thanks! documented in this encounter Plan of Treatment Upcoming Encounters Date Type Department Care Team (Late st Contact Info) Description 11/22/2023 9:00 AM EDT Immunization/Inje ction Hematology/Oncolog y Treatment, [place] [address] [place] [address] Nasreen, Chair 3 Hem Onc [place] [address] [place] [address] 11/22/2023 9:30 AM EDT Office Visit Hematology/Oncolog y Jean Downey [place] [address] [place] [address] Chandni Almonte MD [address] [place] [address] 12/12/2023 8:41 AM EDT Hospital Encounter OR [facility], Operating Room, [facility] - 4th Floor [address] [place] [address] Timoteo Ayala, DO 100 [address] [facility] [place] [address] 12/12/2023 8:41 AM EDT - 12/12/2023 9:27 AM EDT Surgery OR [facility], Operating Room, [facility] - 4th Floor [address] [place] [address] Timoteo Ayala, DO [address] [place], [place] [address] COLONOSCOPY FLEXIBLE PROXIMAL DIAGNOSTIC 12/26/2023 9:00 AM EDT Office Visit Urology, [facility] 132 [facility] [place] [address] Manas Marie MD [address] [place] [address] [place] [address] 01/03/2024 10:30 AM EDT Cardiac Studies Cardiac Studies [address] [place] [address] 01/22/2024 11:00 AM EDT Office Visit Gynecology/[place]olog y, [place] 100 [place] [facility] [place] [address] Jocelyn Vera PA-C 100 [address] [facility] [place] [address] Scheduled Orders Name Type Priority Associated Diagnoses [...] this encounter Medical Devices Implanted Type Area Consumer Affairs Specialist Device Identifier Shelf Expiration Date Model / Serial / Lot Power Port 8fr Sngl Lumen Plas - [id number] Implanted:Qty : 1 on 01/05/2023 by Jai Malcolm Jr., MD at OR [facility] Right: Chest CR BARD : PERIPHERAL VASCULAR [id number] 07/08/2024 [id number] / / [id number] documented as of this encounter Visit Diagnoses [...] Power of Attor johann? No Care Teams Cafe Operator Relationship Specialty Start Date End Date Lina Can MD [address] [place] [address] [place] [address] PCP - General Family Medicine 08/06/22 documented as of this encounter
--- OUTSIDE RECORDS SUMMARY | 2024-05-09 12:33 | External Medical Summary | Summary of Care ---
Author Name Unknown Organization [facility] Address [address] [place] [address] Phone [phone] Care Team Providers Care Oncology Social Worker Name Role Phone Lina Can MD Primary Care Prov ider Reason for Visit * Reason Onset Date Comments Precert Future 11/21/2023 Zirabev/ FOLFIRI Encounter Details Date Type Department Care Team (Late st Contact Info) Description 11/21/2023 Telephone Hematology/Oncology Treatment, [place] 200 [place] [address] Chandni Almonte MD [address] [place] [address] Precert Future (Zirabev/ FOLFIRI) Allergies Active Allergy [...] Telephone Encounter - Glo Drake OSA - 11/28/2023 11:41 AM EDT Pt is scheduled and aware * Telephone Encounter - Tereza Gray [...] is aware * Telephone Encounter - Tereza Gray RN - 11/21/2023 2:48 PM EDT Order received for zirabev/ FOLFIRI. [place] plan adjusted. Waiting for auth. Patient coming tomorrow for consent. Hep B labs 12/22/22. Referral TE sent to [facility]. Patient already has port. Scheduling: please add nurse education visit tomorrow at 10:30am. Thanks! documented in this encounter Plan of Treatment Upcoming Encounters Date Type Department Care Team (Late st Contact Info) Description 12/12/2023 8:41 AM EDT Hospital Encounter OR [facility], Operating Room, [facility] - 4th Floor 400 [place] [address] Timoteo Ayala, DO [address] [place] [address] 12/12/2023 8:41 AM EDT - 12/12/2023 9:27 AM EDT Surgery OR [facility], Operating Room, [facility] - 4th Floor 400 [facility] [place] [address] Timoteo Ayala DO [address] [place] [address] COLONOSCOPY FLEXIBLE PROXIMAL DIAGNOSTIC 12/18/2023 9:30 AM EDT Laboratory Laboratory, [facility] [address] [facility] [place] [address] Terrance Long [address] [facility] [place] [address] 12/19/2023 9:30 AM EDT Hem/Onc Treatment Hematology/Oncolog y Treatment, [place] [address] [place] [address] 12/26/2023 9:00 AM EDT Office Visit Urology, [facility] [place] [address] [place] [address] Manas Marie MD [address] [place] [address] 01/03/2024 10:30 AM EDT Cardiac Studies Cardiac Studies [address] [place] [address] 01/22/2024 11:00 AM EDT Office Visit Gynecology/Oncolog y, [place] [address] [place] [address] Jocelyn Vera PA-C [address] [place], [place] [address] Scheduled Orders Name Type Priority Associated Diagnoses [...] this encounter Medical Devices Implanted Type Area Ep Tech Device Identifier Shelf Expiration Date Model / Serial / Lot Power Port 8fr Sngl Lumen Plas - [id number] Implanted:Qty : 1 on 01/05/2023 by Jai Malcolm Jr., MD at [facility] Right: Chest CR BARD : PERIPHERAL VASCULAR [id number] 07/08/2024 [id number] / / [id number] documented as of this encounter Visit Diagnoses [...] of Attor johann? No Care Teams Oncology Social Worker Relationship Specialty Start Date End Date Lina Can MD [address] [place] [address] S[place] [phone] PCP - General Family Medicine 08/06/22 documented as of this encounter
--- OUTSIDE RECORDS SUMMARY | 2024-05-09 12:33 | External Medical Summary | Summary of Care ---
Author Name Unknown Organization [facility] Address [address] [place] [address] Phone [phone] Care Team Providers Care Postbed Stitcher Name Role Phone Lina Can MD Primary Care Prov ider Reason for Visit * Reason Onset Date Comments Follow Up 11/02/2023 Encounter Details Date Type Department Care Team (Late st Contact Info) Description 11/02/2023 Telephone Hematology/Oncology [facility] [place] [address] [facility] [place] [address] Chandni Almonte MD [address] [place] [place] [address] Follow Up Allergies Active Allergy Reactions Criticality Noted Date Comments Amoxicillin-Pot Clavulanate 07/13/19 23 GI upset Doxycycline 07/12/2022 GI upset Oxaliplatin [place] High 07/27/2023 Shortness of breath Metoclopramide Hives 08/10/2022 documented as of this encounter (statuses as of 11/27/2023) Medications Medication Sig Dispensed Refills Start Date End Date Status Prochlorperazine Maleate 10 MG Oral Tablet (Compazine)Indica tions:Malignant neoplasm of sigmoid colon (HCC) Take 1 Tablet by mouth every 6 hours as needed for Nausea. 30 Tablet 3 11/06/19 24 Discontinued(End of Procedure) Ondansetron HCl 4 MG Oral TabletIndications :Malignant neoplasm of sigmoid colon (HCC) Take 1 Tablet by mouth every 6 hours as needed for Nausea. 30 Tablet 3 3 11/06/19 24 Discontinued(Pat ient preference/disco ntinuation) Pegfilgrastim-cbq v 6 MG/0.6ML Subcutaneous Solution Prefilled Syringe (Udenyca)Indicati ons:Malignant neoplasm of sigmoid colon (HCC),Chemotherap y induced neutropenia (HCC) Inject 6 mg (1 syringe) under the skin 24 hours after FOLFOX pump disconnect every 2 weeks 1.2 mL 2 4 11/06/19 24 Discontinued(End of Procedure) oxyCODONE-Acetami nophen 5-325 MG Oral Tablet (Percocet)Indicat ions:Malignant neoplasm of sigmoid colon (HCC) Take 1 Tablet by mouth every 4 hours as needed for Pain, Moderate. 42 Tablet 4 11/15/19 24 Discontinued Hospital, Clinic, or Other Facility Administered Medication Ordered Dose Route Frequency Start Date End Date Status Fluorouracil (5-Fu) 3,825 mg in NSS 138 mL infusion 3825 mg IV CONTINUOUS 07/24/2023 Ac tive documented as of this encounter (statuses as of 11/27/2023) Active Problems Problem Noted Date Diagnosed Date [...] as of this encounter (statuses as of 11/27/2023) Immunizations No known immunizationsdocumented as of this [...] Telephone Encounter - Jacinto Delaney RN - 11/27/2023 12:24 PM EDT TT Sent to [facility] Rad Onc to see when patient SIM/Start Date/# of treatments will be so we can plan chemo start date after SBRT has completed. * Telephone Encounter - Jacinto Delaney RN - 11/16/2023 10:50 AM EDT Biopsy results in process, pt to see Dr. Almonte on 11/21. Pt had consultation with Rad Onc- advised they would speak with provider regarding palliative radiation to L Spine and Femoral Neck. Dr. Pena to discuss with Dr. Almonte. * Telephone Encounter - Jacinto Delaney RN - 11/06/2023 8:26 AM EDT Per Rad Onc- pt rescheduled consultation 11/13. * Telephone Encounter - Jacinto Delaney RN - 11/02/2023 3:20 PM EDT Per Yue with IR, pt to be rescheduled on 11/14. Per Rad Onc, patient was discharged from the ER today. Will be rescheduled for consultation. * Telephone Encounter - Jacinto Delaney RN - 11/02/2023 10:[address] Almonte- dominic, will continue to check on inpatient status/consultation with rad onc. * Telephone Encounter - Jacinto Delaney RN - 11/02/2023 9:57 AM EDT Pt scheduled for consultation today at Rad Onc, while there, HR noted 144 in Afib RVR. Pt scheduled for biopsy of the scapula tomorrow, will need to check inpatient status. ADE KEY documented in this encounter Plan of Treatment Upcoming Encounters Date Type Department Care Team (Late st Contact Info) Description 11/28/2023 9:00 AM EDT Nurse Only Hematology/Oncolog y [facility] [place] [address] [place], [place] [address] Nasreen Nurse Hem Onc [address] [address] [place] [address] 12/12/2023 8:41 AM EDT Hospital Encounter OR [facility], Operating Room, [facility] - 4th Floor [address] [place] [address] Timoteo Ayala, DO [address] [facility] [place] [id number] 12/12/2023 8:41 AM EDT - 12/12/2023 9:27 AM EDT Surgery OR [facility], Operating Room, [facility] - 4th Floor [address] [place] [address] Timoteo Ayala DO [address] [facility] [place] [address] COLONOSCOPY FLEXIBLE PROXIMAL DIAGNOSTIC 12/26/2023 9:00 AM EDT Office Visit Urology, [facility] 132 [facility] [place] [address] Manas Marie MD 27 [facility] [place] [address] 01/03/2024 10:30 AM EDT Cardiac Studies Cardiac Studies [address] [place] [address] 01/22/2024 11:00 AM EDT Office Visit Gynecology/Oncolog y, [place] [address] [facility] [address] Jocelyn Vera PA-C [address] [facility] [address] Scheduled Procedures Name Priority Associated Diagnoses Date/Ti [...] this encounter Medical Devices Implanted Type Area Advertisement Distributor Device Identifier Shelf Expiration Date Model / Serial / Lot Power Port 8fr Sngl Lumen Plas - [id number] Implanted:Qty : 1 on 01/05/2023 by Jai Malcolm Jr., MD at [facility] Right: Chest CR BARD : PERIPHERAL VASCULAR [id number] 07/08/2024 [id number] / / [id number] documented as of this encounter Advance Directives [...] Power of Attor johann? No Care Teams Postbed Stitcher Relationship Specialty Start Date End Date Lina Can MD [address] [place] [address] [place] [address] PCP - General Family Medicine 08/06/22 documented as of this encounter
--- OUTSIDE RECORDS SUMMARY | 2024-05-09 12:33 | External Medical Summary | Summary of Care ---
Author Name Unknown Organization [facility] Address [address] [place] [address] Phone [phone] Care Team Providers Care Livestock Farmers Name Role Phone Lina Can MD Primary Care Prov ider Reason for Visit * Reason Onset Date Comments Follow Up 11/02/2023 Encounter Details Date Type Department Care Team (Late st Contact Info) Description 11/02/2023 Telephone Hematology/Oncology [facility] [place] 200 [facility] [place] [address] Chandni Almonte MD 200 [place] [address] Follow Up Allergies Active Allergy Reactions Criticality [...] Encounter - Jacinto Delaney RN - 11/27/2023 3:22 PM EDT Pt is due for chemo ed tomorrow, can discuss starting chemotherapy on 12/12 as FOLFIRI needs to starteither Monday or Monday, 12/11 she is scheduled for colonoscopy. N:S- please discuss with patient at chemo education tomorrow. * Telephone Encounter - Jacinto Delaney RN - 11/27/2023 3:[address] Almonte routing comment " We can start chemotherapy week after SBRT " * Telephone Encounter - Jacinto Delaney RN - 11/27/2023 2:55 PM EDT According to Rad Onc, patient is expected to completed SBRT 12/01/[address] if no [address] backs occur. Dr. Almonte- when should patient start chemotherapy if she completes SBRT treatment on 11/30? Pt has Colonoscopy scheduled with Dr. Ayala on 12/11 as well. * Telephone Encounter - Jacinto Delaney RN - 11/27/2023 12:24 PM EDT TT Sent to [facility] Rad Onc to see when patient SIM/Start [...] RN - 11/02/2023 10:[address] Aung key, will continue to check on inpatient status/consultation [...] 9:00 AM EDT Nurse Only Hematology/Oncolog y [facility] [place] [address] [place] [phone] Nasreen, Nurse Hem Onc [address] [place] [address] 12/12/2023 8:41 AM EDT Hospital Encounter OR [facility], Operating Room, [facility] - 4th Floor 400 [facility] [place] [address] Timoteo Ayala, DO [address] [facility] [address] 12/12/2023 8:41 AM EDT - 12/12/2023 9:27 AM EDT Surgery OR [facility], Operating Room, [facility] - 4th Floor [address] [place] [address] Timoteo Ayala DO [address] [place] [address] COLONOSCOPY FLEXIBLE PROXIMAL DIAGNOSTIC 12/26/2023 9:00 AM EDT Office Visit Urology, [facility] [address] [facility] [place] [address] Manas Marie MD 27 [place] [id number] 01/03/2024 10:30 AM EDT Cardiac Studies Cardiac Studies [address] [place] [address] 01/22/2024 11:00 AM EDT Office Visit Gynecology/Oncolog , [place] [address] [place] [address] Jocelyn Vera PA-C [address] [place] [address] Scheduled Procedures Name Priority Associated Diagnoses Date/Ti [...] this encounter Medical Devices Implanted Type Area [employer] Driver Device Identifier Shelf Expiration Date Model / Serial / Lot Power Port 8fr Sngl Lumen Plas - [id number] Implanted:Qty : 1 on 01/05/2023 by Jai Malcolm Jr., MD at [facility] Right: Chest CR BARD : PERIPHERAL VASCULAR [id number] 07/08/2024 [id number] / / [id number] documented as of this encounter Advance Directives [...] Power of Attor johann? No Care Teams Livestock Farmers Relationship Specialty Start Date End Date Lina Can MD [address] [place] [address] [place] [address] PCP - General Family Medicine 08/06/22 documented as of this encounter
--- OUTSIDE RECORDS SUMMARY | 2024-05-09 12:33 | External Medical Summary | Summary of Care ---
Author Name Unknown Organization [facility] Address [address] [place] [address] Phone [phone] Care Team Providers Care Ruby On Rails Consultant Name Role Phone Lina Can MD Primary Care Prov ider Reason for Visit * Reason Onset Date Comments Precert Future 11/21/2023 Zirabev/ FOLFIRI Encounter Details Date Type Department Care Team (Late st Contact Info) Description 11/21/2023 Telephone Hematology/Oncology Treatment, [place] 200 [place] [address] Chandni Almonte MD [address] [place] [address] Precert Future (Zirabev/ FOLFIRI) Allergies Active Allergy [...] PM EDT Order received for zirabev/ FOLFIRI. [place] plan adjusted. Waiting for auth. Patient coming tomorrow for consent. Hep B labs 12/22/22. Referral TE sent to [facility]. Patient already has port. Scheduling: please add nurse education visit tomorrow at 10:30am. Thanks! documented in this encounter Plan of Treatment Upcoming Encounters Date Type Department Care Team (Late st Contact Info) Description 12/12/2023 8:41 AM EDT Hospital Encounter OR [facility], Operating Room, [facility] - 4th Floor [address] [place] [address] Timoteo Ayala, DO [address] [place] [address] 12/12/2023 8:41 AM EDT - 12/12/2023 9:27 AM EDT Surgery OR [facility], Operating Room, [facility] - 4th Floor [address] [place] [address] Timoteo Ayala, DO [address] [place] [address] COLONOSCOPY FLEXIBLE PROXIMAL DIAGNOSTIC 12/26/2023 9:00 AM EDT Office Visit Urology, [facility] 132 [facility] [place] [address] Manas Marie MD [address] [place] [address] 01/03/2024 10:30 AM EDT Cardiac Studies Cardiac Studies [address] [place] [address] 01/22/2024 11:00 AM EDT Office Visit Gynecology/Oncolog [place] [address] [place] [address] Jocelyn Vera PA-C [address] [place] [address] Scheduled Orders Name Type Priority Associated Diagnoses [...] this encounter Medical Devices Implanted Type Area Solutions Developer Device Identifier Shelf Expiration Date Model / Serial / Lot Power Port 8fr Sngl Lumen Plas - [id number] Implanted:Qty : 1 on 01/05/2023 by Jai Malcolm Jr., MD at OR [facility] Right: Chest CR BARD : PERIPHERAL VASCULAR [id number] 07/08/2024 [id number] / / [id number] documented as of this encounter Visit Diagnoses [...] Power of Attor johann? No Care Teams Ruby On Rails Consultant Relationship Specialty Start Date End Date Lina Can MD [address] [place] [address] [place] [address] PCP - General Family Medicine 08/06/22 documented as of this encounter
--- OUTSIDE RECORDS SUMMARY | 2024-05-09 12:33 | External Medical Summary | Summary of Care ---
Author Name Unknown Organization [facility] Address [address] [place] [address] Phone [phone] Care Team Providers Care Nurse Ortho Name Role Phone Lina Can MD Primary Care Prov ider Encounter Details Date Type Department Care Team (Late st Contact Info) Description 11/21/2023 Orders Only Hematology/Oncology [facility] [place] 200 [facility] [place] [phone] Chandni Almonte MD 200 [facility] [place] [address] Allergies Active Allergy Reactions Criticality Noted Date [...] as of this encounter Miscellaneous Notes * Oncology Pathways Update - Chandni Almonte MD - 11/21/2023 1:15 PM EDT START ON PATHWAY REGIMEN - Colorectal MCROS39: FOLFIRI + Bevacizumab q14 Days A cycle is every 14 days: Bevacizumab-xxxx 5 mg/kg IV once on day 1 Irinotecan (Camptosar) 180 mg/m IV once on day 1 Leucovorin 400 mg/m IV once on day 1 Fluorouracil 400 mg/m IV once on day 1 Fluorouracil 1,200 mg/m/day CIV on days 1 and 2. Total CIV dose = 2,400 mg/m/cycle. Always confirm dose/schedule in your pharmacy ordering system Citations: -Yasmin JOHNSON, Hunter J, Antoine E, et al. Randomized, controlled trial of irinotecan plus infusional, bolus, or oral fluoropyrimidines in first-line treatment of metastatic colorectal cancer: resultsfrom the BICC-C Study. J. Clin. Oncol. 2007;25(30):3519-2904. URL: http://www.ncbi.nlm.nih.gov/pubmed/15398930 -Tom PRESLEY, Barney Mayes, Andressa HJ, et al. Effect of First-Line Chemotherapy Combined With Cetuximab or Bevacizumab on Overall Survival in Patients With KRAS Wild-Type Advanced or Metastatic Colorectal Cancer. RHIANNA 2017. 317(23):1080-3920. URL: https://www.ncbi.nlm.nih.gov/pubmed/66268304 Patient Characteristics: Distant Metastases, Nonsurgical Candidate, KRAS G12C Mutation Positive (BRAF V600 Wild-Type/Unknown), Standard Cytotoxic/KRAS-targeted Therapy, First Line Standard Cytotoxic/KRAS-targeted Therapy, Bevacizumab Eligible, PS = 0,1 Tumor Location: Colon Therapeutic Status: Distant Metastases Microsatellite/Mismatch Repair Status: HESHAM/pMMR BRAF Mutation Status: Wild-Type (no mutation) KRAS/NRAS Mutation Status: KRAS G12C Mutation Positive Preferred Therapy Approach: Standard Cytotoxic/KRAS-targeted Therapy Line of Therapy: First Line Standard Cytotoxic/KRAS-targeted Therapy ECOG Performance Status: 1 Bevacizumab Eligibility: Eligible Intent of Therapy: Non-Curative / Palliative Intent, Discussed with Patient * Oncology Pathways Notification - Chandni Almonte MD - 11/21/2023 1:15 PM EDT A new patient decision has been made in ClinicalPath. Details of this patient have been provided below: Patient Information: Name: Nyasia Hdez : 1955 Insurance Provider: [facility] MIRAM[facility]-DD Insurance Insurance Plan ID: [id number] Provider Name: Chandni Almonte Disease: Colorectal Pathway Followed: Colorectal, Distant Metastases, Nonsurgical Candidate, KRAS G12C Mutation Positive (BRAF V600 Wild-Type/Unknown), Standard Cytotoxic/KRAS- targeted Therapy, First Line Standard Cytotoxic/KRAS-targeted Therapy, Bevacizumab Eligible, PS = 0,1 Patient Characteristics: Distant Metastases, Nonsurgical Candidate, KRAS G12C Mutation Positive (BRAF V600 Wild-Type/Unknown), Standard Cytotoxic/KRAS-targeted Therapy, First Line Standard Cytotoxic/KRAS-targeted Therapy, Bevacizumab Eligible, PS = 0,1 Tumor Location: Colon Therapeutic Status: Distant Metastases Microsatellite/Mismatch Repair Status: HESHAM/pMMR BRAF Mutation Status: Wild-Type (no mutation) KRAS/NRAS Mutation Status: KRAS G12C Mutation Positive Preferred Therapy Approach: Standard Cytotoxic/KRAS-targeted Therapy Line of Therapy: First Line Standard Cytotoxic/KRAS-targeted Therapy ECOG Performance Status: 1 Bevacizumab Eligibility: Eligible Intent of Therapy: Non-Curative / Palliative Intent, Discussed with PatientTreatment Details: START ON PATHWAY REGIMEN MCROS39: FOLFIRI + Bevacizumab q14 Days A cycle is every 14 days: Bevacizumab-xxxx 5 mg/kg IV once on day 1 Irinotecan (Camptosar) 180 mg/m IV once on day 1 Leucovorin 400 mg/m IV once on day 1 Fluorouracil 400 mg/m IV once on day 1 Fluorouracil 1,200 mg/m/day CIV on days 1 and 2. Total CIV dose = 2,400 mg/m/cycle. Always confirm dose/schedule in your pharmacy ordering system Citations: -Yasmin JOHNSON, Hunter J, Antoine E, et al. Randomized, controlled trial of irinotecan plus infusional, bolus, or oral fluoropyrimidines in first-line treatment of metastatic colorectal cancer: resultsfrom the BICC-C Study. J. Clin. Oncol. 2007;25(30):7921-0174. URL: http://www.ncbi.nlm.nih.gov/pubmed/20452121 -Tom PRESLEY, Barney D, Andressa TAYLOR, et al. Effect of First-Line Chemotherapy Combined With Cetuximab or Bevacizumab on Overall Survival in Patients With KRAS Wild-Type Advanced or Metastatic Colorectal Cancer. RHIANNA 2017. 317(23):6564-3145. URL: https://www.ncbi.nlm.nih.gov/pubmed/81146081 Change Reason: Disease Progression Prior Treatment: COS67: mFOLFOX6 q14 Days x 6 Months Treatment Response: Unable to Evaluate documented in this encounter Plan of Treatment Upcoming Encounters Date Type Department Care Team (Late st Contact Info) Description 11/22/2023 9:00 AM EDT Immunization/Inje ction Hematology/Oncolog y Treatment, [place] [address] [facility] [phone] Nasreen, Chair [address] [facility] 200 [place] [address] 11/22/2023 9:30 AM EDT Office Visit Hematology/Oncolog y [facility] [address] [place] [phone] Chandni Almonte MD [address] [place] [address] 12/12/2023 8:41 AM EDT Hospital Encounter OR [facility], Operating Room, [facility] - 4th Floor [address] [place] [address] Timoteo Ayala DO [address] [facility] [address] 12/12/2023 8:41 AM EDT - 12/12/2023 9:27 AM EDT Surgery OR [facility], Operating Room, [facility] - 4th Floor [address] [place] [address] Timoteo Ayala DO 100 [address] [facility] [place] [phone] COLONOSCOPY FLEXIBLE PROXIMAL DIAGNOSTIC 12/26/2023 9:00 AM EDT Office Visit Urology, [facility] 132 [facility] [place] [address] Manas Marie MD 27 [facility] [place] [address] 01/03/2024 10:30 AM EDT Cardiac Studies Cardiac Studies [address] [place] [address] 01/22/2024 11:00 AM EDT Office Visit Gynecology/Oncolog y, [place] 100 N [facility] [place] [phone] Jocelyn Vera PA-C [facility] [address] [facility] [place] [phone] Scheduled Procedures Name Priority Associated Diagnoses Date/Ti [...] this encounter Medical Devices Implanted Type Area Beet Flumer Device Identifier Shelf Expiration Date Model / Serial / Lot Power Port 8fr Sngl Lumen Plas - [id number] Implanted:Qty : 1 on 01/05/2023 by Jai Malcolm Jr., MD at OR [facility] Right: Chest CR BARD : PERIPHERAL VASCULAR [id number] 07/08/2024 [id number] / / [id number] documented as of this encounter Advance Directives [...] Power of Attor johann? No Care Teams Nurse Ortho Relationship Specialty Start Date End Date Lina Can MD [address] [place] [address] [place] [phone] PCP - General Family Medicine 08/06/22 documented as of this encounter
--- OUTSIDE RECORDS SUMMARY | 2024-05-09 12:33 | External Medical Summary | Summary of Care ---
Author Name Unknown Organization [facility] Address [address] [place] [address] Phone [phone] Care Team Providers Care Fur Blowing Machine Operator Name Role Phone Lina Can MD Primary Care Prov ider Reason for Visit * Reason Onset Date Comments Precert Future 11/21/2023 Zirabev/ FOLFIRI Encounter Details Date Type Department Care Team (Late st Contact Info) Description 11/21/2023 Telephone Hematology/Oncology Treatment, [place] 200 [place] [address] Chandni Almonte MD [address] [place] [address] Precert Future (Zirabev/ FOLFIRI) Allergies Active Allergy Reactions Criticality Noted Date Comments Amoxicillin-Pot Clavulanate 07/13/19 GI upset Doxycycline 07/12/2022 GI upset Oxaliplatin Flushing High 07/27/2023 Shortness of breath Metoclopramide Hives 08/10/2022 documented as of this encounter (statuses as of 11/22/2023) Medications Medication Sig Dispensed Refills Start Date [...] as of this encounter (statuses as of 11/22/2023) Active Problems Problem Noted Date Diagnosed Date [...] as of this encounter (statuses as of 11/22/2023) Immunizations No known immunizationsdocumented as of this [...] PM EDT Order received for zirabev/ FOLFIRI. [place] plan adjusted. Waiting for auth. Patient coming tomorrow for consent. Hep B labs 12/22/22. Referral TE sent to [facility]. Patient already has port. Scheduling: please add nurse education visit tomorrow at 10:30am. Thanks! documented in this encounter Plan of Treatment Upcoming Encounters Date Type Department Care Team (Late st Contact Info) Description 11/24/2023 10:00 AM EDT Nurse Only Hematology/Oncolog y [facility] [address] [place] [address] Nasreen Nurse Hem Onc [address] [address] [place] [address] 12/12/2023 8:41 AM EDT Hospital Encounter OR [facility], Operating Room, [facility] - 4th Floor [address] [place] [address] [place] [address] Timoteo Ayala DO [address] [place] [address] 12/12/2023 8:41 AM EDT - 12/12/2023 9:27 AM EDT Surgery OR [facility], Operating Room, [facility] - 4th Floor [address] [place] [address] Timoteo Ayala, DO [address] [place] [address] COLONOSCOPY FLEXIBLE PROXIMAL DIAGNOSTIC 12/26/2023 9:00 AM EDT Office Visit Urology, [facility] 132 [facility] [place] [address] Manas Marie MD 27 [facility] [place] [address] 01/03/2024 10:30 AM EDT Cardiac Studies Cardiac Studies [address] [place] [address] 01/22/2024 11:00 AM EDT Office Visit Gynecology/Oncolog , [place] [address] [place] [address] Jocelyn Vera PA-C [address] [place] [facility] [place] [address] Scheduled Orders Name Type Priority Associated Diagnoses [...] this encounter Medical Devices Implanted Type Area Furnace Builder Device Identifier Shelf Expiration Date Model / Serial / Lot Power Port 8fr Sngl Lumen Plas - [id number] Implanted:Qty : 1 on 01/05/2023 by Jai Malcolm Jr., MD at OR [facility] Right: Chest CR BARD : PERIPHERAL VASCULAR [id number] 07/08/2024 [id number] / / [id number] documented as of this encounter Visit Diagnoses [...] Power of Attor johann? No Care Teams Fur Blowing Machine Operator Relationship Specialty Start Date End Date Lina Can MD [address] [place] [address] [place] [phone] PCP - General Family Medicine 08/06/22 documented as of this encounter
--- OUTSIDE RECORDS SUMMARY | 2024-05-09 12:33 | External Medical Summary | Summary of Care ---
Author Name Unknown Organization [facility] Address [address] [place] [address] Phone [phone] Care Team Providers Care Business Analyst Intern Name Role Phone Lina Can MD Primary Care Prov ider Reason for Visit * Reason Comments Follow Up Encounter Details Date Type Department Care Team (Late st Contact Info) Description 11/22/2023 9:30 AM EDT Office Visit Hematology/Oncology [facility] [place] [address] [facility] [place] [address] Chandni Almonte MD 200 [place] [address] Encounter for antineoplastic chemotherapy*; Malignant neoplasm of [...] Sign Reading Time Taken Comments Blood Pressure 131/77 11/22/2023 9:14 AM EDT Pulse 85 11/22/2023 9:14 AM EDT Temperature 36.1 C (97 F) 11/22/2023 9:14 AM EDT Respiratory Rate - - Oxygen Saturation 96% 11/22/2023 9:14 AM EDT Inhaled Oxygen Concentration - - Weight 56.2 kg (124 lb) 11/22/2023 9:14 AM EDT Height - - Body Mass Index 23.43 11/15/2023 10:01 AM EDT documented in this [...] Progress Notes * Chandni Almonte MD - 11/22/2023 9:22 AM EDT Outpatient Consult Note Data Source: Patient, Epic record. Data Source: Patient, Epic record. 11/22/2023 9:22 AM Nyasia Edgar Hdez [id number] 68 year old Patient Encounter: HEMATOLOGY/ONCOLOGY [facility] Cancer Diagnosis: Cancer of sigmoid, status post Robotic-assisted, laparoscopic low anterior resection with coloproctostomy. Patient has stage pT4 pN2 disease Current Treatment: Observation Previous Treatment: status post Robotic-assisted, laparoscopic low anterior resection with coloproctostomy. She was treated with the adjuvant chemotherapy and received total of 10 cycles of FOLFOX. She had allergic reaction so the chemo was changed to FOLFIRI for last 2 cycles. She received last chemo on 07/25/2023 Oncologic History : 68-year-old female with history [...] invasion of the mass into her uterus. [employer] Specialist onc was consulted intraoperatively and a ALEXA [...] nodes positive for carcinoma (5/15). - Stage: [id number]. D. Urinary bladder, biopsy: - Low-grade papillary [...] Small vessel Perineural Invasion Not identified Tumor Earling Score Intermediate (5-9) Type of Polyp in [...] probability of MSI-H) mmunotherapy Markers Tumor Mutational [place] (TMB): TMB Unit [place] 5.67 m/MB Low Microsatellite Instability Status (MSI): MSI Status 0 Stable Result Detail DNA Variants (SNV and indels): Gene Variant Tier Amino Acid Change Nucleotide Change Consequence Allele Frequency Sequencing Depth KRAS G12V Tier 1: Strong significance p.Peo12Box NM_033360.4: c.35G>T Missense Variant 28.1 % 1995 CDKN1B H945Vlg*15 Tier 2: Potential significance p.Fpa398HnpjyGda48 NM_004064.5: c.326_327insT Frameshift Variant 29.5 % TP53 K132R Tier 2: Potential significance p.Odb011Zys NM_000546.6: c.395A>G Missense Variant 25.4 % 1991 [...] cancer. One cousin was diagnosed of ovarian cancer Interval History: She had biopsy from the right scapular lesion done and pathology is consistent with adenocarcinoma compatible with a colorectal primary. She was also seen by Dr. Pena and he is planning for possible SBRT to the bone lesions. LABS/IMAGING: Results for orders placed or performed during the hospital encounter of 11/15/23 CYTOLOGY Result Value Ref Range Final Diagnosis A. Bone, right scapula, CT/US guided core needle biopsy: Adequacy: Satisfactory for evaluation. Category: Malignant. Interpretation: Adenocarcinoma, compatible with colorectal primary. Other: Biopsy: The histological sections of the biopsy specimen contain fragments of tissue (A1 40%, A3 10% tumor cellularity). Tumor cells are positive for CK20, CDX2, SatB2; negative for CK7. The immunophenotype and morphology are compatible with adenocarcinoma, colorectal primary. Prior Cancer Colon Cancer Indication for Procedure Right Scapula bone lesion Gross Description A. Bone. Received are 3 air dried slides and specimen in saline labeled with name: Nyasia Hdez and bone, and verified with the patient's name and date of . The saline specimen A1 contains 1 tissue fragments, up to 2 mm in size. The saline specimen A3 contains 2 tissue fragments, up to 2 mm in size. Specimen sent for cell block. The slides are stained and specimen is prepared for cell block at [facility]. The cell block is submitted in A1/ A3 and processed at [facility]. /[place] Prepared by: JOAQUIM Formalin fixation time: 10 hours Intraprocedural Assessment A. Bone. Collecting Physician: Dr. Worley Type of Assessment: Telecytology used Onsite Personnel: Lacy Layton Time: 11:53 Source: Bone Part: [id number] Pass(es): 1 Adequacy: Less than optimal/Material for ancillary studies not available Preliminary: Defer: Atypical epithelial Additional passes for block: No Additional tube for molecular/Flow: No Reason for terminating procedure: Procedure endpoint (reasonable number of passes made) Additional Information: Colon Hx CA End Time: 12:05 Intraprocedural assessment performed by: Marvin Elise MD Specimen sent for: Specimen sent for cell block Performing Labs Cdl Driver screening performed at [facility]), [address] [place] [address]. Pathologist sign out performed at [facility]), [address] [place] [address]. Photographic images and diagrams represent armstrong findings in this case; they are not intended to replace a complete review of the final diagnostic report. The following statement applies to Flow Cytometry, Histology, In situ Hybridization Assays and Molecular Genetics. This test was developed and performed at [facility] and its performance characteristics determined by [employer]. It has not been cleared or approved by the U.S. Food and Drug Administration. The FDA has determined that such clearance or approval is not necessary. This test is used for clinical purposes. It should not be regarded as investigationalor for research. Special stains, including histochemical stains, and studies using immunologic and ANDRES methodology (where applicable) are performed with appropriate positive and negative control reactions. REVIEW OF SYSTEMS: General: No Fever, chills, [...] bleeding Genitourinary: Denies Hematuria or dysuria Musculoskeletal: Complaining pain specially lower back and hip area Psychiatric: No vegetative signs of depression Endocrine: [...] (Temp Greater than ) or Pain, Moderate. Current Facility-Administered Medications Medication Dose Route Frequency Provider Last Rate Last Admin Fluorouracil (5-Fu) 3,825 mg in NSS 138 mL infusion 3,825 mg Intravenous Continuous Fanny Almonte MD Social History Tobacco Use Smoking status: Every [...] appearing patient in no acute distress BP 131/77 (BP Site: Left Arm, BP Position: Sitting, BP Cuff Size: Regular) | Pulse 85 | Temp 36.1 C (97 F) (Tympanic) | Wt 56.2 kg (124 lb) | SpO2 96% | BMI 23.43 kg/m | BSA 1.56 m Vitals reviewed. HEENT: No oral or [...] is consistent with metastatic colorectal cancer. Patient was also seen by Dr. Pena and he is planning for the SBRT to the bone lesions. I had opportunity to discuss with the Dr. Pena about his plans this morning. Discussed with the patient in detail about diagnosis and prognosis and reviewed all the available blood tests and PET scan finding with her. I also again reviewed the radiology images of the PET scan. She has metastatic disease which is not curable. She can benefit with the palliative chemotherapy including combination of FOLFIRI plus Avastin. Discussed with her about the benefit, risk, side effects and toxicity of treatment. After detailed discussion she agreed to proceed with treatment and signed the consent form. My plan is to start the chemotherapy 1 week after the completion of radiation therapy. PLAN: As above. She will return clinic for follow-up 2 weeks after receiving 1st cycle of chemotherapy. The patient voiced understanding of all of [...] Notes * Kavita Mendez MED ASSIST - 11/22/2023 9:15 AM EDT Patient identifed by name and [...] it for you? ALREADY ACTIVE Filed Vitals: 11/22/23 0914 BP: 131/77 Pulse: 85 Temp: 36.1 C (97 F) TempSrc: Tympanic SpO2: 96% Weight: 56.2 kg (124 lb) Patient was instructed to not get [...] Team (Late st Contact Info) Description 11/22/2023 10:30 AM EDT Nurse Only Hematology/[place]olog [place] [address] [place] [phone] Nasreen, Nurse Hem Onc [place] [address] [place] [address] 11/24/2023 10:00 AM EDT Nurse Only Hematology/Oncolog y [place] Raymond Downey [address] [place] [phone] [place], Nurse Hem Onc [place] [address] [place] [address] 12/12/2023 8:41 AM EDT Hospital Encounter [place], Operating Room, [facility] 4th [facility] [address] [facility] [address] Timoteo Ayala, DO [address] [place] [address] 12/12/2023 8:41 AM EDT - 12/12/2023 9:27 AM EDT Surgery OR [facility], Operating Room, [facility] - 4th Floor [address] [place] [place] [address] Timoteo Ayala DO [address] [place] [address] COLONOSCOPY FLEXIBLE PROXIMAL DIAGNOSTIC 12/26/2023 9:00 AM EDT Office Visit Urology, [facility] [address] [place] [address] Manas Marie MD [address] [place] [address] 01/03/2024 10:30 AM EDT Cardiac Studies Cardiac Studies [address] [place] [address] 01/22/2024 11:00 AM EDT Office Visit Gynecology/Oncolog , [place] [address] [place] [address] Jocelyn Vera PA-C [address], [place] [phone] Scheduled Procedures Name Priority Associated Diagnoses Date/Ti [...] this encounter Medical Devices Implanted Type Area Membership Sales Advisor Device Identifier Shelf Expiration Date Model / Serial / Lot Power Port 8fr Sngl Lumen Plas - [id number] Implanted:Qty : 1 on 01/05/2023 by Jai Malcolm Jr., MD at [facility] Right: Chest CR BARD : PERIPHERAL VASCULAR [id number] 07/08/2024 [id number] / / [id number] documented as of this encounter Visit Diagnoses [...] of Attor johann? No Care Teams Business Analyst Intern Relationship Specialty Start Date End Date Lina Can MD [address] [place] [address] [place] [address] PCP - General Family Medicine 08/06/22 documented as of this encounter
--- OUTSIDE RECORDS SUMMARY | 2024-05-09 12:33 | External Medical Summary | Summary of Care ---
Author Name Unknown Organization [facility] Address [address] [place] [address] Phone [phone] Care Team Providers Care Dialysis Patient Care Technician Name Role Phone Lina Can MD Primary Care Prov ider Encounter Details Date Type Department Care Team (Latest Contact Info) Description 11/15/2023 9:56 AM EDT - 11/15/2023 11:59 PM EDT Hospital Encounter Radiology, [facility] [address] [place] [address] Arrived Discharge Disposition: Home - Self Care Allergies Active Allergy Reactions Criticality Noted Date Comments Amoxicillin-Pot Clavulanate 07/13/19 23 GI upset Doxycycline 07/12/2022 GI upset Oxaliplatin Flushing High 07/27/2023 Shortness of breath Metoclopramide Hives 08/10/2022 documented as of this encounter (statuses as of 11/16/2023) Medications Medication Sig Dispensed Refills Start Date [...] as of this encounter (statuses as of 11/16/2023) Active Problems Problem Noted Date Diagnosed Date [...] as of this encounter (statuses as of 11/16/2023) Immunizations No known immunizationsdocumented as of this [...] AM EDT Immunization/Inje ction Hematology/Oncolog y Treatment, [address] [place] [phone] Nasreen, Chair [address] [place] [address] 11/22/2023 9:30 AM EDT Office Visit Hematology/Oncolog y [facility] [address] [place] [phone] Chandni Almonte MD 200 [place] [address] 12/12/2023 8:41 AM EDT Hospital Encounter OR GL, Operating Room, [facility] - 4th Floor 400 [facility] [place] [address] Timoteo Ayala, DO [address] [place] [address] 12/12/2023 8:41 AM EDT - 12/12/2023 9:27 AM EDT Surgery OR [facility], Operating Room, [facility] - 4th Floor [address] [place] [address] Timoteo Ayala DO [address] [place] [address] COLONOSCOPY FLEXIBLE PROXIMAL DIAGNOSTIC 12/26/2023 9:00 AM EDT Office Visit Urology, [facility] [address] [facility] [place] [address] Manas Marie MD [address] [place] [address] 01/03/2024 10:30 AM EDT Cardiac Studies Cardiac Studies [address] [place] [address] 01/22/2024 11:00 AM EDT Office Visit Gynecology/Oncolog [facility] [address] [place] [address] Jocelyn Vera PA-C [address] [place] [address] Pending Results Name Type Priority Associated Diagnoses Date /Time CYTOLOGY Pathology Routine 11/15/2023 11: 45 AM EDT Scheduled Orders Name Type Priority Associated Diagnoses Orde r Schedule CYTOLOGY Pathology Routine One Time for 1 Occurrences starting 11/15/2023 until 11/15/2023, 1 completed Scheduled Procedures Name Priority Associated Diagnoses Date/Ti [...] encounter Medical Devices Implanted Type Area Video Tape Editor Device Identifier Shelf Expiration Date Model / Serial / Lot Power Port 8fr Sngl Lumen Plas - [id number] Implanted:Qty : 1 on 01/05/2023 by Jai Malcolm Jr., MD at [facility] Right: Chest CR BARD : PERIPHERAL VASCULAR [id number] 07/08/2024 [id number] / / [id number] documented as of this encounter Procedures Procedure Name Priority Date/Time Associated Diagnosis Comments IR BIOPSY Routine 11/15/2023 12:16 PM EDT Malignant neoplasm of sigmoid colon (HCC) documented in this encounter Advance Directives * [...] Power of Attor johann? No Care Teams Dialysis Patient Care Technician Relationship Specialty Start Date End Date Lina Can MD [address] [place] [address] [place] [address] PCP - General Family Medicine 08/06/22 documented as of this encounter
--- OUTSIDE RECORDS SUMMARY | 2024-05-09 12:33 | External Medical Summary | Summary of Care ---
Author Name Unknown Organization [facility] Address [address] [place] [address] Phone [phone] Care Team Providers Care Sliver Lapper Name Role Phone Lina Can MD Primary Care Prov ider Reason for Visit * Reason Comments Procedure Port Flush Encounter Details Date Type Department Care Team (Latest Contact Info) Description 11/22/2023 9:00 AM EDT Immunization/ Injection Hematology/Oncology Treatment, [address] [address] Nasreen, Chair [address] [address] Encounter for antineoplastic chemotherapy*; Malignant neoplasm of sigmoid colon (HCC); History of colon cancer Allergies Active Allergy Reactions Criticality Noted Date [...] as of this encounter Nursing Notes * Alissa Quiles RN - 11/22/2023 9:03 AM EDT Patient ambulatory to chair 8 Patient denies any nausea, vomiting, diarrhea, fever or pain. Safety and Risk for Injury Patient will [...] potential carrillo while using the heat function. Goals: patient will remain free of injury Possible barriers to meeting goals: ambulation with IV pole, increase risk of fall Stability of the patient: Moderately stable - low risk of patient condition declining or worsening Summary regarding today's goals: Met: patient remained free of injury VAD (Venous Access Device) accessed with #20G 3/4" without difficulty. Flushes easily with positiveblood return. VAD flushed with 10 ml NSS and Heparin 5 ml (100 units/ml). Bowie needle removed intact. Patient discharged in good condition. documented in this encounter Plan of Treatment Upcoming Encounters Date Type Department Care Team (Late st Contact Info) Description 11/22/2023 9:30 AM EDT Office Visit Hematology/Oncolog y [facility] [address] [place] [address] Chandni Almonte MD [address] [place] [address] Arrived 12/12/2023 8:41 AM EDT Hospital Encounter OR [facility], Operating Room, [facility] - 4th Floor [address] [place] [address] Timoteo Ayala DO [address] [place], [place] [phone] 12/12/2023 8:41 AM EDT - 12/12/2023 9:27 AM EDT Surgery OR [facility], Operating Room, [facility] - 4th Floor 400 [facility] [place] [address] Timoteo Ayala DO [address] [place], [place] [phone] COLONOSCOPY FLEXIBLE PROXIMAL DIAGNOSTIC 12/26/2023 9:00 AM EDT Office Visit Urology, [facility] [address] [place] [address] Manas Marie MD [address] [facility] [place] [address] 01/03/2024 10:30 AM EDT Cardiac Studies Cardiac Studies [address] [place] [address] 01/22/2024 11:00 AM EDT Office Visit Gynecology/Oncolog y, [place] [address] [facility] [address] Jocelyn Vera PA-C [address] [facility] [place] [id number] Scheduled Procedures Name Priority Associated Diagnoses Date/Ti [...] encounter Medical Devices Implanted Type Area Nuclear Medicine Pet Ct Technologist Device Identifier Shelf Expiration Date Model / Serial / Lot Power Port 8fr Sngl Lumen Plas - [id number] Implanted:Qty : 1 on 01/05/2023 by Jai Malcolm Jr., MD at OR [facility] Right: Chest CR BARD : PERIPHERAL VASCULAR [id number] 07/08/2024 [id number] / / [id number] documented as of this encounter Visit Diagnoses Diagnosis Encounter for antineoplastic chemotherapy- Primary Malignant neoplasm of sigmoid colon (HCC) Malignant neoplasm of sigmoid colon History of colon cancer Personal history of malignant neoplasm of large intestine Cancer of sigmoid colon (HCC) Malignant neoplasm of sigmoid colon documented in this encounter Administered Medications Inactive Administered Medications - up to 3 most recent administrations Medication Order MAR Action Action Date Dose Rate Site hEParin 100 UNIT/ML Lock Flush inj 500 Units 500 Units (5 mL), IV Lock, PRN Other, IV Flush, Starting on Mon11/22/23 at 0854, Until Mon11/22/23 at 0913, For 24 hours, Do not flush if lock, PICC, or central line not in place; IV infusing or unable to flush. Given 11/22/2023 8:55 AM EDT 500 Units sodium chloride 0.9 % flush central line 10 mL 10 mL, IV Push, PRN Other, IV Flush, Starting on Mon11/22/23 at 0854, Until Mon11/22/23 at 0913, For 24 hours, Do not flush if lock, PICC, or central line not in place; IV infusing or unable to flush. Given 11/22/2023 8:54 AM EDT 10 mL documented in this [...] Power of Attor johann? No Care Teams Sliver Lapper Relationship Specialty Start Date End Date Lina Cna MD [address] [place] [address] [place] [address] PCP - General Family Medicine 08/06/22 documented as of this encounter
--- OUTSIDE RECORDS SUMMARY | 2024-05-09 12:33 | External Medical Summary | Summary of Care ---
Author Name Unknown Organization [facility] Address [address] [place] [address] Phone [phone] Care Team Providers Care Early Morning Babysitter Name Role Phone Lina Can MD Primary Care Prov ider Reason for Visit * Reason Onset Date Comments Precert Future 11/21/2023 Zirabev/ FOLFIRI Encounter Details Date Type Department Care Team (Late st Contact Info) Description 11/21/2023 Telephone Hematology/Oncology Treatment, [place] [address] [place] [address] Chandni Almonte MD [address] [place] [address] Precert Future (Zirabev/ FOLFIRI) Allergies Active Allergy [...] PM EDT Order received for zirabev/ FOLFIRI. Cosby plan adjusted. Waiting for auth. Patient coming tomorrow for consent. Hep B labs 12/22/22. Referral TE sent to [facility]. Patient already has port. Scheduling: please add nurse education visit tomorrow at 10:30am. Thanks! documented in this encounter Plan of Treatment Upcoming Encounters Date Type Department Care Team (Late st Contact Info) Description 11/22/2023 10:30 AM EDT Nurse Only Hematology/Oncolog y Jean Downey [place] [address] [place] [phone] Nasreen Nurse Hem Onc [place] [address] [place] [address] 11/24/2023 10:00 AM EDT Nurse Only Hematology/Oncolog [place] [address] [place] [phone] Nasreen, Nurse Hem Onc [place] [address] [place] [address] 12/12/2023 8:41 AM EDT Hospital Encounter OR [facility], Operating Room, [facility] - 4th Floor [address] [place] [address] Timoteo Ayala DO [address] [facility] [id number] 12/12/2023 8:41 AM EDT - 12/12/2023 9:27 AM EDT Surgery OR [facility], Operating Room, [facility] - 4th Floor [address] [place] [address] Timoteo Ayala DO [address] [facility] [phone] COLONOSCOPY FLEXIBLE PROXIMAL DIAGNOSTIC 12/26/2023 9:00 AM EDT Office Visit Urology, [facility] [address] [facility] [place] [address] Manas Marie MD [address] [facility] [place] [address] 01/03/2024 10:30 AM EDT Cardiac Studies Cardiac Studies [address] [place] [address] 01/22/2024 11:00 AM EDT Office Visit Gynecology/Oncolog y, [place] [address] [facility] [address] Jocelyn Vera PA-C [address] [place] [address] Scheduled Orders Name Type Priority Associated Diagnoses [...] encounter Medical Devices Implanted Type Area Steel Die Press Set Up Operator Device Identifier Shelf Expiration Date Model / Serial / Lot Power Port 8fr Sngl Lumen Plas - [id number] Implanted:Qty : 1 on 01/05/2023 by Jai Malcolm Jr., MD at [facility] Right: Chest CR BARD : PERIPHERAL VASCULAR [id number] 07/08/2024 [id number] / / [id number] documented as of this encounter Visit Diagnoses [...] Power of Attor johann? No Care Teams Early Morning Babysitter Relationship Specialty Start Date End Date Lina Can MD [address] [place] [address] [place] [address] PCP - General Family Medicine 08/06/22 documented as of this encounter
--- OUTSIDE RECORDS SUMMARY | 2024-05-09 12:33 | External Medical Summary | Summary of Care ---
Author Name Unknown Organization [facility] Address [address] [place] [address] Phone [phone] Care Team Providers Care Architectural Engineer Name Role Phone Lina Can MD Primary Care Prov ider Reason for Visit * Reason Onset Date Comments Follow Up 11/02/2023 Encounter Details Date Type Department Care Team (Late st Contact Info) Description 11/02/2023 Telephone Hematology/Oncology [facility] [place] [address] [facility] [place] [address] Chandni Almonte MD 200 [place] [address] Follow Up Allergies Active Allergy Reactions Criticality [...] 11/27/2023 12:24 PM EDT TT Sent to [facility] Rad Onc to see when patient SIM/Start [...] - 11/02/2023 10:[address] Almonte- [facility], will continue to check on inpatient status/consultation with rad onc. * Telephone Encounter - Jacinto Delaney RN - 11/02/2023 9:57 AM EDT Pt scheduled for consultation today at Rad Onc, while there, HR noted 144 in Afib RVR. Pt scheduled for biopsy of the scapula tomorrow, will need to check inpatient status. IR- FYI documented in this encounter Plan of Treatment Upcoming Encounters Date Type Department Care Team (Late st Contact Info) Description 11/28/2023 9:00 AM EDT Nurse Only Hematology/Oncolog y [facility] Nasreen [place] [address] [place] [address] Nasreen, Nurse Hem Onc Scenery [address] [place] [address] 12/12/2023 8:41 AM EDT Hospital Encounter OR [facility], Operating Room, [facility] - 4th Floor [address] [place] [address] Timoteo Ayala, DO [address] [place], [place] [id number] 12/12/2023 8:41 AM EDT - 12/12/2023 9:27 AM EDT Surgery OR [facility], Operating Room, [facility] - 4th Floor [address] [place] [address] Timoteo Ayala, DO [address] [place] [address] COLONOSCOPY FLEXIBLE PROXIMAL DIAGNOSTIC 12/26/2023 9:00 AM EDT Office Visit Urology, [facility] 132 [facility] [place] [address] Manas Marie MD [address] [place] [address] 01/03/2024 10:30 AM EDT Cardiac Studies Cardiac Studies [address] [place] [address] 01/22/2024 11:00 AM EDT Office Visit Gynecology/Oncolog Debbie brush [address] [place] [address] Jocelyn Vera PA-C [address] [place] [address] Scheduled Procedures Name Priority Associated Diagnoses Date/Ti [...] encounter Medical Devices Implanted Type Area Assembler Movement Device Identifier Shelf Expiration Date Model / Serial / Lot Power Port 8fr Sngl Lumen Plas - [id number] Implanted:Qty : 1 on 01/05/2023 by Jai Malcolm Jr., MD at OR [facility] Right: Chest CR BARD : PERIPHERAL VASCULAR [id number] 07/08/2024 [id number] / / [id number] documented as of this encounter Advance Directives [...] Power of Attor johann? No Care Teams Architectural Engineer Relationship Specialty Start Date End Date Lina Can MD [address] [place] [address] [place] [address] PCP - General Family Medicine 08/06/22 documented as of this encounter
--- OUTSIDE RECORDS SUMMARY | 2024-05-09 12:34 | External Medical Summary | Summary of Care ---
Author Name Unknown Organization [facility] Address [address] [place] [address] Phone [phone] Care Team Providers Care Application Administrator Name Role Phone Lina Can MD Primary Care Prov ider Reason for Visit * Auth/Cert Specialty Diagnoses / Procedures Referred By Luc king Referred To Contact Diagnoses Malignant neoplasm of sigmoid colon (HCC) Malignant neoplasm of sigmoid colon (HCC) [C18.7] Procedures PRE / POST CARE PRE / [facility] [address] [place] [address] Phone: [phone] Or Ip [facility] 400 [facility] [address] Referral ID Status Reason Start Date Expiration Date Visits Re quested Visits Authorized [id number] Encounter Details Date Type Department Care Team (Latest Contact Info) Description 11/15/2023 9:51 AM EDT - 11/15/2023 1:02 PM EDT Hospital Encounter OR [facility], Operating Room, [facility] - 4th Floor [address] [place] [address] [facility], In And Out Surgery [address] [place] [address] Discharge Disposition: Home - Self Care Allergies [...] Greater than ) or Pain, Moderate. Active oxyCODONE-Acetamin ophen 5-325 MG Oral Tablet (Percocet)Indicati ons:Malignant neoplasm of sigmoid colon (HCC) Take 1 Tablet by mouth every 4 hours as needed for Pain, Moderate. 42 Tablet 10/19/2023 11/15/2023 Discontinued documented as of this encounter (statuses [...] Sign Reading Time Taken Comments Blood Pressure 104/61 11/15/2023 12:57 PM EDT Pulse 79 11/15/2023 12:57 PM EDT Temperature 36 C (96.8 F) 11/15/2023 12:57 PM EDT Respiratory Rate 18 11/15/2023 12:57 PM EDT Oxygen Saturation 98% 11/15/2023 12:57 PM EDT Inhaled Oxygen Concentration - - Weight 58.3 kg (128 lb 8 oz) 11/15/2023 10:01 AM EDT Height 154.9 cm (5' 1") 11/15/2023 10:01 AM EDT Body Mass Index 24.28 11/15/2023 10:01 AM EDT documented in this [...] No 11/25/2022 documented as of this encounter Discharge Instructions * Discharge Instr - AVS* Mehdi Worley MD - 11/15/2023 12:23 PM EDT Discharge Date: 11/15/2023 Provider: Dr. Mehdi Worley If you are experiencing any problems related to your procedure, please contact Interventional Radiology at [phone] during normal business hours: Monday- Monday 7:30 am - 4 pm. If a problem occursoutside of normal business hours, please call the hospital distillation operator helper at [phone] and ask for theInterventional Radiologist financial planning consultant. Contact scheduling for Interventional Radiology at [phone] during normal business hours: Monday-Monday, 7:30 am - 4 pm. The information below provides you with the instructions and the list of medications you need to betaking following discharge from the hospital. If you have any questions, please ask before leaving.Please carry this letter with you when you see your doctor in the clinic. If you have questions, you can reach us at the numbers above. SPECIAL INSTRUCTIONS scapular Biopsy Care After Your Biopsy If you experience pain or discomfort at the site you may use a cold pack on the site and/or take acetaminophen (Tylenol) or your preferred pain medicine as directed. Avoid strenuous activity for 24 to 48 hours after the procedure. Do not lift anything heavier than 10 pounds for 3 days after the procedure. Gradually increase your activity after 24 to 48 hours after the procedure. Keep the dressing clean and dry; change as needed. Dressing can be removed in 24 hours. You may shower after 24 hours. Gently wash the area and pat it dry. Please DO NOT take a bath, soak in a hot tub, or swim until the wound is completely healed. Follow Up Your requesting physician will contact you with the results of your test. Please allow 5 to 7 business days for your results. Please check Edverter messages or contact the referring physician for results. When to Call Interventional Radiology Call Interventional Radiology right away if you have any of the following: Fever above 100 degrees Fahrenheit Increased bleeding, redness, swelling, warmth, or discharge at the incision site. Constant or increasing pain, numbness, coldness, or tingling around the incision area. Vomiting or nausea that does not go away If at any time you experience any of the following or feel you are having a medical emergency, [id number] for emergency assistance. Chest Pain Sudden, severe shortness of breath Rapid heart rate Sudden onset of weakness Coughing up blood See your referring physician for follow-up appointment. Do not smoke or use tobacco products in any way! If you feel suicidal or homicidal, please call the crisis hotline at [phone] ([phone]) MODERATE SEDATION You may have received medication that made you comfortable/sedated you during your procedure. This is considered moderate sedation. This medication was given to relax you. You may also not remember having the procedure done. It may take up to 24 hours for this medication to be out of your system. Because of this, you should observe the following for the next 24 hours: Do not drink alcohol or take depressant drugs. Do not operate any type of machinery that requires hand-eye coordination. Do not sign any legal papers or documents. Do not make any financial decisions. You should be in the presence of an adult for the remainder of the day. If you are experiencing any problems related to your procedure, you should contact the Interventional Radiology physician unless otherwise directed. Driving: You may resume driving 1 day . Diet: You may resume your current diet as tolerated. Return to work or school: You may return to school or work 1 days after the procedure, unless otherwise instructed by the physician. documented in this encounter H&P Notes * Mehdi Worley MD - 11/15/2023 11:04 AM EDT HISTORY & PHYSICAL - Interventional Radiology Service [facility] [place] [address] Name: Nyasia Hdez Location: [facility]/OR Date: 11/15/2023 Time: 11:05 AM CHIEF COMPLAINT: Right scapular bx HISTORY OF PRESENT ILLNESS: Pet+ right scapula Past Medical History: Diagnosis Date Breast cancer (HCC) 1992 right mastectomy Cancer, metastatic to bone (HCC) Colon cancer (HCC) New onset atrial fibrillation (HCC) 11/02/2023 Past Surgical History: Procedure Laterality Date COLONOSCOPY, DIAGNOSTIC (RECTUM) N/A 10/06/2022 COLONOSCOPY FLEXIBLE PROXIMAL DIAGNOSTIC performed by Timoteo Ayala DO at ENDOSCOPY [facility] COLONOSCOPY, DIAGNOSTIC (RECTUM) 10/21/2022 A fungating partially obstructing large mass was found in the sigmoid colon, performed by Glo Garcia DO at ENDOSCOPY [facility] CYSTOSCOPY/INSERTION OF STENT Bilateral 11/25/2022 CYSTOURETHROSCOPY WITH INSERTION URETERAL STENT DUAL SERVICE performed by Kishan Leblanc MD at OR [facility] CYSTOSCOPY/TREAT SML BLADDER TUMOR N/A 11/25/2022 ADULT CYSTOURETHROSCOPY WITH FULGURATION SMALL BLADDER TUMOR performed by Kishan Leblanc MD at OR [facility] INSER TUNN ACC DEV;5 YRS/OLDER Right 01/05/2023 INSERT TUNNELED CENTRAL VENOUS ACCESS WITH SUBQ PORT performed by Jai Malcolm Jr., MD at OR [facility] LAPAROSCOPIC PARTIAL COLECTOMY W/COLOPROCTOSTOMY N/A 11/25/2022 ROBOTIC LAPAROSCOPIC PARTIAL COLECTOMY WITH COLOPROCTOSTOMY performed by Timoteo Ayala DO atOR [facility] LAPAROSCOPY TOTAL HYSTX, UTERUS 250GM OR LESS 11/25/2022 ROBOTIC LAPAROSCOPIC HYSTERECTOMY FOR UTERUS 250GM OR LESS performed by Vinay Rice MD at OR [facility] MASTECTOMY, SIMPLE, COMPLETE Right 1991 [place] HEPATOBILIARY SYSTEM 09/15/2022 Normal hepatobiliary scintigraphy [...] Needs: Not on file Social Connections: Unknown (11/15/2023) Social Connections How often do you feel lonely or isolated from those around you? (Adult - for ages 18 years and over): Not on file Housing Stability: Not on file Family History Problem Relation Name Age of Onset Breast Cancer Mother Breast Cancer Aunt (Maternal) Review of patient's allergies indicates: Allergen Reactions Oxaliplatin Flushing Shortness of breath Augmentin [Amoxicillin-Pot Clavulanate] GI upset Doxycycline GI upset Reglan [Metoclopramide] Hives Current Facility-Administered Medications Medication Dose Route Frequency Provider Last Rate Last Admin isolyte-S pH 7.4 infusion 25 mL/hr Intravenous Continuous Mehdi Worley MD 25 mL/hr at 11/15/23 [id number] mL/hr at 11/15/23 1022 REVIEW OF SYSTEMS: Constitutional: (-) fever chills sweats or weight loss Cardiovascular: (-) negative: no chest pain, dyspnea, syncope, or palpitations Pulmonary: (-) negative: no cough, wheezing, or shortness of breath Abdominal/GI: (-) negative: no pain, heartburn, dysphagia, bleeding, change in bowel habits, nauseaor vomiting OBJECTIVE: BP 137/70 | Pulse 80 | Temp 36.3 C (97.3 F) (Tympanic) | Resp 18 | Ht 1.549 m (5' 1") | Wt 58.3kg (128 lb 8 oz) | SpO2 98% | BMI 24.28 kg/m | BSA 1.58 m PHYSICAL EXAM: Constitutional: no acute distress LABS: CBC Results: PT INR Results: Results for orders placed or performed in visit on 11/09/23 PT INR Result Value Ref Range Prothrombin Time 16.3 (H) 11.6 - 15.2 seconds INR 1.3 (H) 0.8 - 1.2 Results for orders placed or performed in visit on 10/23/23 PT INR Result Value Ref Range Prothrombin Time 12.7 11.6 - 15.2 seconds INR 1.0 0.8 - 1.2 BUN Results: Lab Results Component Value Date/Time BUN 9 (L) 07/18/1996 11:52 AM BUN - [facility] 9 08/28/2023 09:04 AM BUN - [facility] 6 07/24/2023 09:30 AM BUN - [facility] 9 07/10/2023 08:39 AM BUN - [facility] 5 (L) 01/10/1997 08:00 AM Creatinine Results: Lab Results Component Value Date/Time CREATININE 0.7 07/18/1996 11:52 AM CREATININE - [facility] 0.7 08/28/2023 09:04 AM CREATININE - [facility] 0.7 07/24/2023 09:30 AM CREATININE - [facility] 0.7 07/10/2023 08:39 AM CREATININE - [facility] 0.70 01/10/1997 08:00 AM Potassium Results: Lab Results Component Value Date/Time POTASSIUM - [facility] 4.1 08/28/2023 09:04 AM POTASSIUM - [facility] 4.1 07/24/2023 09:30 AM POTASSIUM - [facility] 3.7 07/10/2023 08:39 AM INFORMED CONSENT: Yes PRE-SEDATION ASSESSMENT IMPRESSION/PLAN: Right scapula bx Mehdi Worley MD documented in this encounter Nursing Notes * Sona Eugene I, RN - 11/15/2023 11:20 AM EDT Procedure: CT Guided Right Scapula Bone Lesion Biopsy Pt placed on procedure table with comfort measures intact. Hemodynamic monitoring placed and initiated, VS stable. Pt denies any complaints at current time. CT splitter machine images obtained. Timeout performed by Dr. Mehdi Worley at 1140. Dr. Worley reassessed patient immediately prior to moderate sedation administration and procedure start. Patient prepped for procedure. Skin around biopsy area cleaned with chloraprep and dried. 10 mL 1% buffered lidocaine administered locally to right scapula by . Access obtained. Images obtained. Access advanced. Images obtained. Biopsy obtained. Slides prepared and given to medical laboratory technical officer who used telecytology method to verify adequacy of cellular material. Access removed. Pressure applied by . Gauze and Tegaderm applied to site. Post procedure image obtained. Patient tolerated procedure well without complications. All wires, catheters, sheaths and other devices have been inspected prior to the procedure for damage. All items not intended to remain in the patient have been inspected, accounted for and have beenremoved from the patient at the end of the procedure. This has been confirmed by the operating physician. Pt recieved moderate sedation for their procedure. Start 1141 End 1203 Total medications given Versed: 1.5 mg Fentanyl: 75 mcg 1% buffered lidocaine: 10 mL * Geoffrey Godinez RN - 11/15/2023 9:56 AM EDT Patient does not meet criteria for testing. documented in this encounter OR Notes * OR Surgeon - Mehdi Worley MD - 11/15/2023 1:02 PM EDT Procedure: CT-guided right scapula bone biopsy. 11/15/2023 INDICATION: [PET positive scapular lesion] ATTENDING (OPERATING PHYSICIAN): Brunilda CONSENT: After a detailed discussion of the procedure, risks, benefits and alternative treatment options, informed consent was obtained. TIME OUT: A time out procedure was performed. The patient's identification was verified. Informed consent with agreement of procedure, site and position was obtained. All necessary equipment was available prior to procedure. CONTRAST: No contrast administered. COMPLICATIONS: None. ANESTHESIA: [Local lidocaine.] [IV Versed.] [IV Fentanyl.] SEDATION TIME: [Start to end: [[id number]]. Qualified nurse sedation observer [Greg RN.] MEDICATIONS: See MAR PROCEDURE DESCRIPTION: With the patient prone, survey CT images of the [Eugene] was performed, localizing the lytic lesion, right scapula. The access site was selected and prepped and draped in the usual sterile fashion. Using an Argon bone biopsy set, access to the bone was achieved. A core biopsy was obtained. The on-site student outreach coordinator deemed the samples to be [adequate]. All specimen samples were given to the student outreach coordinator. The cannula was then removed, hemostasis was achieved and the site was dressed. The patient tolerated the procedure well. I personally performed the procedure. Findings: Lytic successfully biopsied. The Argon T-litzy is seen with more than adequate distance for the biopsy throws. No immediate complication on post biopsy imaging. Interval worsening of lytic scapular lesion since prior CT July 28, 2023 Impression: Successful CT-guided percutaneous bone biopsy. documented in this encounter Miscellaneous Notes * Pre-Sedation Assessment - Mehdi Worlye MD - 11/15/2023 11:06 AM EDT PRE-SEDATION ASSESSMENT PRE-SEDATION ASSESSMENT: Right Sapular Bx Level of sedation planned: Minimal Patient's allergies reviewed: Yes H&P Review / Interval Note Documentation: There is no H&P on file. Difficulty with sedation / anesthesia: No Sleep apnea: No History of snoring: No History of difficult intubation: No Decreased ROM neck flexion/extension: No Tracheal deviation: No Decreased ability to open mouth / TMJ: No Loose teeth / dentures / partial: No Congenital deformities / abnormalities: No Dysphagia: No Mallampati Classification: II - soft palate, uvula, fauces visible Chest: Clear Heart: Regular Rhythm ASA Risk Stratification ([facility]): ASA 2 - Mild systemic disease, no functional limitations The patient was identified and the procedure verified: Yes The patient was reevaluated immediately prior to the sedation: 11/15/2023 11:06 AM documented in this encounter Plan of Treatment Upcoming Encounters Date Type Department Care Team (Late st Contact Info) Description 11/22/2023 9:00 AM EDT Immunization/Inje ction Hematology/Oncolog y Treatment, [place] [address] [place] [phone] Nasreen, Chair 3 Hem Onc Scenery [address] [place] [address] 11/22/2023 9:30 AM EDT Office Visit Hematology/Oncolog y Scenery [place] Raymond Downey [address] [place] [phone] Chandni Almonte MD [address] [place] [address] 12/12/2023 8:41 AM EDT Hospital Encounter OR [facility], Operating Room, [facility] - 4th Floor [address] [place] [address] Timoteo Ayala, DO [address] [facility] [id number] 12/12/2023 8:41 AM EDT - 12/12/2023 9:27 AM EDT Surgery OR [facility], Operating Room, [facility] - 4th Floor [address] [place] [address] Timoteo Ayala, DO [address] [facility] [address] COLONOSCOPY FLEXIBLE PROXIMAL DIAGNOSTIC 12/26/2023 9:00 AM EDT Office Visit Urology, [facility] 132 [facility] [place] [address] Manas Marie MD [address] [facility] [place] [address] 01/03/2024 10:30 AM EDT Cardiac Studies Cardiac Studies [address] [place] [address] 01/22/2024 11:00 AM EDT Office Visit Gynecology/Oncolog Debbie brush [address] [facility] [place] [address] Jocelyn Vera PA-C [address] [facility] [address] Scheduled Procedures Name Priority Associated Diagnoses Date/Ti [...] this encounter Medical Devices Implanted Type Area Flame Degreaser Device Identifier Shelf Expiration Date Model / Serial / Lot Power Port 8fr Sngl Lumen Plas - [id number] Implanted:Qty : 1 on 01/05/2023 by Jai Malcolm Jr., MD at OR [facility] Right: Chest CR BARD : PERIPHERAL VASCULAR [id number] 07/08/2024 [id number] / [id number] documented as of this encounter Administered Medications Inactive Administered Medications - up to 3 most recent administrations Medication Order MAR Action Action Date Dose Rate Site fentaNYL (PF) inj ONCE PRN NARRATOR, Starting on Mon11/15/23 at 1142, Until Mon11/15/23 at 1146 Given 11/15/2023 11:46 AM EDT 25 mcg Given 11/15/2023 11:42 AM EDT 50 mcg isolyte-S pH 7.4 infusion Intravenous, at 25 mL/hr, All Patients EXCEPT Dialysis patients Plasma-LYTE 148, isolyte-S, and isolyte-S pH 7.4 are considered equivalent - including for MAR barcode scanning., CONTINUOUS, Starting on Mon11/15/23 at 1030, Until Mon11/15/23 at 1703, Pre-Op New Bag 11/15/2023 10:22 AM EDT 25 mL/h r 25 mL/hr midazolam (Versed) 2 MG/2ML inj ONCE PRN NARRATOR, Starting on Mon11/15/23 at 1142, Until Mon11/15/23 at 1147 Given 11/15/2023 11:47 AM EDT 0.5 mg Given 11/15/2023 11:42 AM EDT 1 mg documented in this encounter Active and Recently Administered Medications Times are shown in EDT. Continuous Medication Order 11/13/2023 11/14/2023 11/15/2023 isolyte-S pH 7.4 infusion Intravenous, at 25 mL/hr, All Patients EXCEPT Dialysis patients Plasma-LYTE 148, isolyte-S, and isolyte-S pH 7.4 are considered equivalent - including for MAR barcode scanning., CONTINUOUS, Starting on Mon11/15/23 at 1030, Until Mon11/15/23 at 1703, Pre-Op 1022 (New Bag - Prov ider: Geoffrey Godinez RN) PRN Medication Order 11/13/2023 11/14/2023 11/15/2023 fentaNYL (PF) inj (COMPLETED) ONCE PRN NARRATOR, Starting on Mon11/15/23 at 1142, Until Mon11/15/23 at 1146 1142 (Given - Provid er: Omega Jiménez RN)1146 (Given - Provider: Omega Jiménez RN) midazolam (Versed) 2 MG/2ML inj (COMPLETED) ONCE PRN NARRATOR, Starting on Mon11/15/23 at 1142, Until Mon11/15/23 at 1147 1142 (Given - Provid er: Omega Jiménez RN)1147 (Given - Provider: Omega Jiménez RN) documented in this encounter Advance Directives * [...] Power of Attor johann? No Care Teams Application Administrator Relationship Specialty Start Date End Date Lina Can MD [address] [place] [address] [place] [address] PCP - General Family Medicine 08/06/22 documented as of this encounter
--- OUTSIDE RECORDS SUMMARY | 2024-05-09 12:34 | External Medical Summary | Summary of Care ---
Author Name Unknown Organization [facility] Address [address] [place] [address] Phone [phone] Care Team Providers Care Stenographer [employer] Name Role Phone Lina Can MD Primary Care Prov ider Reason for Visit * Reason Onset Date Comments Follow Up 11/02/2023 Encounter Details Date Type Department Care Team (Late st Contact Info) Description 11/02/2023 Telephone Hematology/Oncology [facility] [place] [address] [facility] [place] [place] [address] Chandni Almonte MD [address] [place] [address] Follow Up Allergies Active Allergy Reactions Criticality [...] - 11/02/2023 10:[address] Aung alfaro, will continue to check on inpatient status/consultation with rad onc. * Telephone Encounter - Jacinto Delaney RN - 11/02/2023 9:57 AM EDT Pt scheduled for consultation today at Rad Onc, while there, HR noted 144 in Afib RVR. Pt scheduled for biopsy of the scapula tomorrow, will need to check inpatient status. IR- YESI documented in this encounter Plan of Treatment Upcoming Encounters Date Type Department Care Team (Late st Contact Info) Description 11/22/2023 9:00 AM EDT Immunization/Inje ction Hematology/Oncolog y Treatment, [place] [address] [place] [address] Nasreen, Chair 3 Hem Onc [address] [place] [address] 11/22/2023 9:30 AM EDT Office Visit Hematology/Oncolog y [facility] [place] [address] [facility] [place] [address] Chandni Almonte MD [address] [place] [address] 12/12/2023 8:41 AM EDT Hospital Encounter OR [facility], Operating Room, [facility] - 4th Floor [address] [place] [address] Timoteo Ayala DO [address] [place] [address] 12/12/2023 8:41 AM EDT - 12/12/2023 9:27 AM EDT Surgery OR [facility], Operating Room, [facility] - 4th Floor [address] [place] [address] Timoteo Ayala DO [address] [place] [address] COLONOSCOPY FLEXIBLE PROXIMAL DIAGNOSTIC 12/26/2023 9:00 AM EDT Office Visit Urology, [facility] [address] [facility] [place] [address] Manas Marie MD [address] [facility] [address] 01/03/2024 10:30 AM EDT Cardiac Studies Cardiac Studies [address] [place] [address] 01/22/2024 11:00 AM EDT Office Visit Gynecology/Oncolog y, [place] [address] [place] [facility] [address] Jocelyn Vera PA-C [address], [place] [id number] Scheduled Procedures Name Priority Associated Diagnoses Date/Ti [...] this encounter Medical Devices Implanted Type [employer] Device Identifier Shelf Expiration Date Model / Serial / Lot Power Port 8fr Sngl Lumen Plas - [id number] Implanted:Qty : 1 on 01/05/2023 by Jai Malcolm Jr., MD at [facility] Right: Chest CR BARD : PERIPHERAL VASCULAR [id number] 07/08/2024 [id number] / / [id number] documented as of this encounter Advance Directives [...] Power of Attor johann? No Care Teams Stenographer Print Shop Relationship Specialty Start Date End Date Lina Can MD [address] [place] [address] [place] [address] PCP - General Family Medicine 08/06/22 documented as of this encounter
[2024-05-09] MEDS ORDERED: POLYETHYLENE (MIRALAX) 17 GM PACK PO PRN (13:38)
[2024-05-09] MEDS ORDERED: ALUMINUM/MAGNESIUM SUSP 30 ML UDC PO PRN (13:38)
[2024-05-09] MEDS ORDERED: MAGNESIUM HYDROXIDE SUSP 30 ML UDC PO PRN (13:38)
[2024-05-09] MEDS ORDERED: ONDANSETRON 4 MG OD TAB PO PRN (13:43)
[2024-05-09] MEDS: FUROSEMIDE 40 MG/4 ML VIAL IV SCH (14:20)
[2024-05-09] MEDS: POTASSIUM CHLORIDE CRTAB 20 MEQ TABCR PO SCH (14:20)
--- NOTE | 2024-05-09 14:56 | Electrocardiogram Report ---
Test Reason : Blood Pressure : */* mmHG Vent. Rate : 101 BPM Atrial Rate : 101 BPM P-R Int : 134 ms QRS Dur : 70 ms QT Int : 366 ms P-R-T Axes : 83 84 100 degrees QTcB Int : 474 ms Sinus tachycardia Otherwise normal ECG When compared with ECG of 02-Nov-2023 10:30, Sinus rhythm has replaced Atrial fibrillation Nonspecific T wave abnormality now evident in Lateral leads Confirmed by Joni Gilbert ([id number]) on 05/09/2024 2:55:58 PM Referred By: REFERRED SELF Confirmed By: Joni Gilbert
[2024-05-09] MEDS: ACETAMINOPHEN 325 MG TAB PO PRN (16:38)
[2024-05-09 18:26] LABS: Appearance Urine Clear (Clear); Bilirubin Urine Negative (Negative); Blood Urine Negative (Negative); Color Urine Yellow; Glucose Urine UA Negative (Negative); Ketones Urine Negative (Negative); Leukocyte Esterase Urine Negative (Negative); Nitrite Urine Negative (Negative); Protein Urine Negative (Negative); Specific Gravity Urine 1.006 (1.000-1.030); Urobilinogen Urine Negative (Negative); pH Urine 7.5 (4.5-7.5)
[2024-05-09] MEDS ORDERED: Nursing to Pharmacy Communication SCH (18:45)
[2024-05-09 18:46] LABS: Total Protein Urine Random < 4.0 mg/dl (0-11.9)
[2024-05-09 18:53] LABS: Creatinine Urine Random 4.7 mg/dl
--- NOTE | 2024-05-09 19:52 | Communication Note ---
Date of Service: May 09, 2024 Patient noted to be tachycardic, rapid atrial flutter on the monitor SBP 100s Patient comfortable as per RN. AP Rapid atrial flutter Borderline BP PCU transfer Digoxin 1 dose now IV amiodarone if no response to digoxin
[2024-05-09] MEDS: DIGOXIN 250 MCG in SYRINGE 9 ML IV STA ×2 (20:08→22:15)
[2024-05-09] MEDS: METOPROLOL SUCC 25MG EXT REL TAB PO STA (20:14)
[2024-05-09 20:27] LABS: Magnesium 1.8 mg/dl (1.7-2.4)
[2024-05-09 20:35] LABS: Troponin I High Sensitivity 21.1 pg/ml (0-14)
[2024-05-09 20:44] LABS: Thyroid Stimulating Hormone 4.148 uIu/ml (0.300-4.500)
[2024-05-09] MEDS: APIXABAN 5 MG TABLET PO SCH (20:50)
[2024-05-09] MEDS: MoRPHine SULFATE CR 15 MG TABCR PO SCH (20:50)
[2024-05-09] MEDS: POTASSIUM CHLORIDE / WTR 10 MEQ/100 ML PLCT IV SCH (20:52)
[2024-05-09] MEDS: ALBUMIN 25% 25 GM/100 ML VIAL IV ONE (20:52)
[2024-05-09] MEDS ORDERED: METOPROLOL SUCC 25MG EXT REL TAB PO SCH (21:00)
[2024-05-09] MEDS: MAGNESIUM SULFATE / D5W 1 GM/100 ML BAG IV SCH (22:15)
[2024-05-09] MEDS: METOPROLOL TARTRATE 1 MG/ML VIAL IV STA (23:39)
[2024-05-10 06:27] LABS: Basophils # (auto) 0.04 K/uL (0.00-0.20); Basophils % (auto) 0.7 %; Eosinophils % (auto) 5.4 %; Hematocrit (blood only) 30.5 % (37.0-47.0); Hemoglobin 9.4 g/dl (12.0-16.0); Immature Granulocytes # (auto) 0.02 K/uL (0.01-0.20); Immature Granulocytes % (auto) 0.4 %; Lymphocytes # (auto) 0.78 K/uL (1.20-3.40); Lymphocytes % (auto) 14.1 %; Mean Corpuscular Hgb Conc 30.8 g/dL (32.0-36.0); Mean Corpuscular Volume 94.1 fL (80.0-100.0); Mean Platelet Volume 11.4 fL (9.4-12.4); Monocytes # (auto) 0.42 K/uL (0.11-0.59); Monocytes % (auto) 7.6 %; Neutrophils # (auto) 3.99 K/uL (1.40-6.50); Neutrophils % (auto) 71.8 %; Platelet Count 118 K/uL (130-400); RDW Coefficient of Variation 15.8 % (11.5-14.5); RDW Standard Deviation 53.8 fL (36.4-46.3); Red Blood Count 3.24 M/uL (4.20-5.40); White Blood Count 5.55 K/ul (4.8-10.8)
[2024-05-10] MEDS: DIGOXIN 250 MCG in SYRINGE 9 ML IV STA (06:43)
[2024-05-10 06:47] LABS: Calcium 8.2 mg/dl (8.6-10.3); Creatinine Clr Calc Pharmacy 108.3 ml/min; Potassium 3.9 mmol/L (3.5-5.1)
[2024-05-10] MEDS ORDERED: METOPROLOL SUCC 25MG EXT REL TAB PO SCH ×2 (09:00→21:00)
[2024-05-10] MEDS: POTASSIUM CHLORIDE CRTAB 20 MEQ TABCR PO SCH (09:16)
[2024-05-10] MEDS: METOPROLOL SUCC 25MG EXT REL TAB PO SCH (09:22)
--- NOTE | 2024-05-10 11:30 | Hospitalist Progress Note ---
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 She is currently under Dr. Almonte's care; on Lonsurf and bevacizumab (received on 04/22 and 05/06). Acute CHF Patient presents with shortness of breath, orthopnea and bilateral lower extremity edema. Prior attending - Reached out to oncology regarding possibility of relation of bevacizumab; seems unlikely as per Dr. Almonte. Recommended to hold treatment for now. BNP elevated to 1246 PG/mL. Chest x-ray reviewed; pulmonary edema present Pt denies sore throat, flu like illness or cough. ECHO w/ EF of 50-55%, nl LV wall motion and systolic fxn. Urine protein neg. c/w lasix iv, monitor and replete electrolytes. Ordoñez for I/O monitoring. c/w tele. Pt reports improvement in breathing w/ diuresis. Cardio consult, await recs. History of paroxysmal A-fib: currently in afib rvr in 110s, c/w toprol and eliquis. toprol dose increased to 25 mg bid. Metastatic sigmoid cancer on palliative chemotherapy/radiation Continue pain control with home medication Will hold Lonsurf as per recommendation by Dr. Almonte DNR/DNI DVT prophylaxis Eliquis; monitor platelets Admission and Anticipated Discharge Date Admission Date: May 09, 2024 Subjective Patient was seen and examined at bedside. Patient was lying in bed, on room air, NAD, resting comfortably. Patient reports improvement in her shortness of breath. Patient denies sore throat or cough. Patient denies chest pain. Patient reports left thigh pain at the site of her bone metastasis. Patient reports eating okay and moving bowels okay. Physical Exam Physical Exam: Constitutional: Awake, alert oriented x 3. Not in any distress. Respiratory: Bilateral basilar crackles present. Cardiovascular: irregular, tachycardic. 110s Chest: normal inspection of chest Abdomen: normal bowel sounds, soft, nontender, no hepatosplenomegaly Musculoskeletal: Bilateral pitting edema present, trace/1+. Neurologic: PERRL, EOMI, accommodation nl, no face palsy, no dysarthria CN's II- XI intact bilaterally and moves all extremities Psychiatric: A+Ox3, euthymic affect Results & Data Results & Data Vital Signs (Past 12 Hours) Vital Signs Temp Pulse Pulse Resp BP Pulse Ox O2 Del Method 05/10/24 11:08 36.5 C 115 H 19 110/69 94 Room Air 05/10/24 09:52 Room Air 05/10/24 08:30 36.7 C 120 H 19 111/71 92 Room Air 05/10/24 07:51 36.6 C 137 H 18 126/81 99 Nasal Cannula 05/10/24 06:28 124 H 108/70 05/10/24 03:37 36.6 C 140 H 18 111/71 99 Nasal Cannula 05/09/24 23:54 126 H O2 Flow Rate 05/10/24 11:08 05/10/24 09:52 05/10/24 08:30 05/10/24 07:51 2 05/10/24 06:28 05/10/24 03:37 1.5 05/09/24 23:54 (1) CHF (congestive heart failure) Heart failure chronicity: unspecified Heart failure type: unspecified Qualified Code(s): I50.9 - Heart failure, unspecified
--- NOTE | 2024-05-10 12:09 | Cardiology Consultation ---
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 Significant clinical improvement with IV diuresis. Echocardiogram demonstrating low normal LV systolic function. Patient reverting to atrial fibrillation with rapid ventricular response (asymptomatic) yesterday. I suspect paroxysmal atrial fibrillation may be contributing to current bout of heart failure. Additionally, treatment with bevacizumab has been implicated in myocardial toxicity and heart failure. Recommendations: * Add IV amiodarone 150 mg x 1 now followed by continuous infusion. * Continue metoprolol and apixaban as ordered. * Hold bevacizumab if oncology agreeable. * Continue IV diuresis for an additional 24 hours * Monitor fluid balance, daily weight, GFR, and electrolytes. * Maintain serum potassium greater than 4.0, and serum magnesium greater than 2.0. All questions answered to satisfaction both patient and her daughter via telephone. Cardiology will continue to follow during hospitalization. Thank you for allow me to participate in care of your patient. I spent a total of 60 minutes on the date of service in preparation, delivery, and documentation of the care provided to this patient, excluding any time spent in the performance of separately billed services. Vinnie Curiel DO, [facility] History of Present Illness Reason for Consultation: New onset CHF, ?Bevalizumab induced Requesting Physician: Dr. Noonan Attending Physician: Solomon Harris MD History of Present Illness 69-year-old female with history of metastatic adenocarcinoma, colorectal cancer present to the emergency department due to shortness of breath. Currently treated with Lonsurf and Bevcizumab. Reporting lower extremity edema prior to admission. Bedside echocardiogram demonstrating left ventricular ejection fraction 50-55% without significant valvular pathology. Chest x-ray revealing small infiltrate of the medial right lung representing possible early pneumonia. Small bilateral pleural effusions likely. Treated with IV Lasix. Fluid balance -2.8 L since admission. History of paroxysmal atrial fibrillation dating back to summer 2023. Prescribed metoprolol and Eliquis at that time. Developed tachycardia overnight. ECG performed at 4:46 AM demonstrating atrial fibrillation with rapid ventricular response. Unaware of episodes of atrial fibrillation. Denies any palpitations, chest discomfort, lightheadedness, or dizziness. Remains in atrial fibrillation with heart rate ranging 110-130 bpm. Treated with additional metoprolol and IV digoxin last evening. Prior to admission, patient experienced shortness of breath and edema. Her symptoms have since improved with IV diuresis. Allergies Allergy/AdvReac Type Severity Reaction Status Date / Time doxycycline Allergy Intermediate Made me Unverified 04/25/24 09:40 feel worse metoclopramide [From Reglan] Allergy Intermediate Hives Unverified 04/25/24 09:40 Home Medications Medication Instructions Recorded Confirmed Type metoprolol succinate 25 mg capsule 25 mg PO DAILY 11/14/23 05/09/24 History sprinkle, ext. release 24 hr morphine 15 mg tablet,extended 15 mg PO Q12H 04/25/24 05/09/24 History release (MS Contin) oxycodone 5 mg tablet 5 mg PO Q4H PRN Breakthrough Pain, 04/25/24 05/09/24 History Moderate acetaminophen 500 mg tablet 500 mg PO Q6H PRN Breakthrough Pain 05/09/24 05/09/24 History apixaban 5 mg tablet (Eliquis) 5 mg PO BID 05/09/24 05/09/24 History ondansetron HCl 8 mg tablet 8 mg PO DIRECTED PRN n/v 05/09/24 05/09/24 History trifluridine 15 mg-tipiracil 6.14 1 tab PO DIRECTED 05/09/24 05/09/24 History mg tablet (Lonsurf) trifluridine 20 mg-tipiracil 8.19 1 tab PO DIRECTED 05/09/24 05/09/24 History mg tablet (Lonsurf) Patient History Medical History Breast cancer Surgical History History of bowel resection Hx of cystoscopy S/P total hysterectomy and BSO (bilateral salpingo-oophorectomy) H/O right mastectomy Family History Mother Cancer breast x 2 25 yrs apart Aunt Cancer multiple aunts with different forms of cancer Social History Smoking Status: Light tobacco smoker Tobacco Type: Cigarettes Second Hand Exposure: No; Do You Dip or Chew Tobacco: No; Tobacco Cessation Education Requested by Patient: No Hx Alcohol Use: No Hx Substance Use: No Preferred Language: Pashto Visual Impairment: No Limitations Hearing Ability: Normal Critical Care Unit Nurse Required: No Beliefs That Will Affect Care: None Current Living Situation: Family current occupational status: retired Other Information That Helps Us Care for You: No Feels Safe at Home: Yes Safety Concerns: Feels Safe At This Time Diet: regular during the past year weight has: remained stable Assistive Devices: Cane Review of Systems Review of Systems: All systems reviewed & are unremarkable except as noted in Subjective Physical Exam Constitutional: + ill appearing and + thin Respiratory: no respiratory distress, no labored breathing and no retractions Auscultation: + diminished lung sounds (left base); no crackles, no rales, no rhonchi and no wheezes Cardiovascular: Rate/Rhythm: + tachycardic and + irregularly irregular Heart Sounds: normal S1 and normal S2; no murmur Vessels: no JVD Extremities: no edema Gastrointestinal (Abdomen): Inspection/Auscultation: abdomen not distended Percussion/Palpation: abdomen soft; abdomen nontender, no guarding and abdomen not rigid Neurologic: CN's II-XI intact bilaterally and moves all extremities; no focal motor deficits Psychiatric: A+Ox3, euthymic affect Results & Data Vital Signs (Past 12 Hours) Vital Signs Temp Pulse Resp BP Pulse Ox O2 Del Method O2 Flow Rate 05/10/24 11:08 36.5 C 115 H 19 110/69 94 Room Air 05/10/24 09:52 Room Air 05/10/24 08:30 36.7 C 120 H 19 111/71 92 Room Air 05/10/24 07:51 36.6 C 137 H 18 126/81 99 Nasal Cannula 2 05/10/24 06:28 124 H 108/70 05/10/24 03:37 36.6 C 140 H 18 111/71 99 Nasal Cannula 1.5 Laboratory Results Cardiac Enzymes 05/09/24 05/09/24 Range/Units 14:44 20:01 Troponin I High Sens 22.4 H 21.1 H (0-14) pg/ml CBC 05/10/24 Range/Units 06:06 WBC 5.55 (4.8-10.8) K/ul RBC 3.24 L (4.20-5.40) M/uL Hgb 9.4 L (12.0-16.0) g/dl Hct 30.5 L (37.0-47.0) % Plt Count 118 L (130-400) K/uL Neut # (Auto) 3.99 (1.40-6.50) K/uL Lymph # (Auto) 0.78 L (1.20-3.40) K/uL [place] # (Auto) 0.42 (0.11-0.59) K/uL Eos # (Auto) 0.30 (0.00-0.50) K/uL Baso # (Auto) 0.04 (0.00-0.20) K/uL Comprehensive Metabolic Panel 05/10/24 Range/Units 06:06 Sodium 134 L (136-145) mmol/L Potassium 3.9 (3.5-5.1) mmol/L Chloride 99 (98-107) mmol/L Carbon Dioxide 29 (21-32) mmol/L BUN 10 (6-23) mg/dl Creatinine 0.37 L (0.6-1.2) mg/dl Glucose 103 H (70-99(Fasting)) mg/dl Calcium 8.2 L (8.6-10.3) mg/dl Intake and Output 05/09/24 05/10/24 05/10/24 22:59 06:59 14:59 Intake Total 914.166 / 1034.166 240 / 240 Output Total 1050 / 3200 2001 Balance -135.834 / -2165.834 -1762 / -1762 Intake: IV 464.166 / 464.166 Albumin 25% 25 gm In 100 ml @ 100 / 100 50 mls/hr IV ONE ONE Rx#: [id number] Magnesium Sulfate / D5w 1 gm In 170.833 / 170.833 100 ml @ 50 mls/hr IV Q2H L[facility]ON Rx#:[id number] Potassium Chloride / Wtr 10 meq 193.333 / 193.333 In 100 ml @ 100 mls/hr IV Q1H [facility] Rx#:[id number] Oral 450 / 570 240 / 240 Output: Urine Amount (Catheter) 1049 / 2099 Ordoñez/Indwelling 1049 # Bowel Movements / Other: Weight 50.4 kg Weight Measurement Method Built in [facility]
[2024-05-10] MEDS ORDERED: AMIODARONE IV BOLUS & DRIP IV STA (13:43)
[2024-05-10] MEDS ORDERED: 0.2 MICRON FILTER SET 1 EACH IV STA (13:43)
[2024-05-10] MEDS ORDERED: STAT IV Infusion **Titration per Protocol STA (13:43)
--- NOTE | 2024-05-10 14:29 | Electrocardiogram Report ---
Test Reason : Blood Pressure : */* mmHG Vent. Rate : 165 BPM Atrial Rate : 375 BPM P-R Int : * ms QRS Dur : 74 ms QT Int : 298 ms P-R-T Axes : * 79 75 degrees QTcB Int : 493 ms Atrial flutter with variable A-V block with premature ventricular or aberrantly conducted complexes Nonspecific ST and T wave abnormality Abnormal ECG When compared with ECG of 09-May-2024 09:54, Atrial flutter has replaced Sinus rhythm Vent. rate has increased by 64 bpm Nonspecific T wave abnormality now evident in Inferior leads Confirmed by Joni Gilbert ([id number]) on 05/10/2024 2:29:31 PM Referred By: REFERRED SELF Confirmed By: Joni Gilbert
--- NOTE | 2024-05-10 14:35 | Electrocardiogram Report ---
Test Reason : Blood Pressure : */* mmHG Vent. Rate : 128 BPM Atrial Rate : * BPM P-R Int : * ms QRS Dur : 72 ms QT Int : 328 ms P-R-T Axes : * 74 99 degrees QTcB Int : 478 ms Atrial fibrillation with rapid ventricular response with premature ventricular or aberrantly conducte d complexes Nonspecific ST and T wave abnormality Abnormal ECG When compared with ECG of 09-May-2024 19:48, (unconfirmed) Atrial fibrillation has replaced Atrial flutter Nonspecific T wave abnormality no longer evident in Inferior leads Inverted T waves have replaced nonspecific T wave abnormality in Anterior leads Confirmed by Joni Gilbert ([id number]) on 05/10/2024 2:35:07 PM Referred By: REFERRED SELF Confirmed By: Joni Gilbert
[2024-05-10] MEDS: AMIODARONE / D5W 150 MG/100 ML BAG IV STA (14:59)
[2024-05-10] MEDS: AMIODARONE / D5W 360 MG/200 ML BAG IV ONE (15:23)
[2024-05-10] MEDS: AMIODARONE / D5W 360 MG/200 ML BAG IV SCH (19:51)
[2024-05-10] MEDS: POTASSIUM CHLORIDE 20 MEQ/15 ML UDC PO SCH (20:01)
--- NOTE | 2024-05-11 07:23 | Electrocardiogram Report ---
Test Reason : Blood Pressure : */* mmHG Vent. Rate : 114 BPM Atrial Rate : * BPM P-R Int : * ms QRS Dur : 70 ms QT Int : 326 ms P-R-T Axes : * 58 81 degrees QTcB Int : 449 ms Atrial fibrillation with rapid ventricular response Nonspecific ST and T wave abnormality Abnormal ECG When compared with ECG of 10-May-2024 04:46, HR has decreased by 14 bpm Confirmed by Devendra Raymond ([id number]) on 05/11/2024 7:22:33 AM Referred By: REFERRED SELF Confirmed By: Devendra Raymond
[2024-05-11 07:53] LABS: Hemoglobin 10.5 g/dl (12.0-16.0); Mean Corpuscular Hemoglobin 29.2 pg (25.0-34.0); Mean Corpuscular Hgb Conc 31.8 g/dL (32.0-36.0); Mean Corpuscular Volume 91.7 fL (80.0-100.0); Mean Platelet Volume 11.5 fL (9.4-12.4); Platelet Count 133 K/uL (130-400); RDW Coefficient of Variation 15.6 % (11.5-14.5); RDW Standard Deviation 51.4 fL (36.4-46.3); White Blood Count 6.78 K/ul (4.8-10.8)
[2024-05-11 08:12] LABS: BUN Creatinine Ratio 34.3 (10-20); Calcium 8.8 mg/dl (8.6-10.3); Creatinine Clr Calc Pharmacy 114.5 ml/min; Magnesium 1.8 mg/dl (1.7-2.4); Phosphorus 2.5 mg/dl (2.5-4.9); Potassium 3.7 mmol/L (3.5-5.1)
--- NOTE | 2024-05-11 08:40 | Hospitalist Progress Note ---
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 She is currently under Dr. Almonte's care; on Lonsurf and bevacizumab (received on 04/22 and 05/06). Acute CHF Patient presents with shortness of breath, orthopnea and bilateral lower extremity edema. Prior attending - Reached out to oncology regarding possibility of relation of bevacizumab; seems unlikely as per Dr. Almonte. Recommended to hold treatment for now. BNP elevated to 1246 PG/mL. Chest x-ray reviewed; pulmonary edema present Pt denies sore throat, flu like illness or cough. ECHO w/ EF of 50-55%, nl LV wall motion and systolic fxn. Urine protein neg. c/w lasix iv being titrated, monitor and replete electrolytes. Ordoñez for I/O monitoring. c/w tele. Pt reports improvement in breathing and cough w/ diuresis. Cardio evaled, appreciate recs. History of paroxysmal A-fib: currently in afib rvr in 100- 110s, c/w toprol and eliquis. toprol dose increased to 25 mg bid. on amio drip. Metastatic sigmoid cancer on palliative chemotherapy/radiation Continue pain control with home medication. Pt has metastatic bone pain. Will hold Lonsurf as per recommendation by Dr. Almonte THE PATIENT HAS A MEDICAL CONDITION WHICH REQUIRES POSITIONING OF THE BODY IN WAYS NOT FEASIBLE WITH AN ORDINARY BED TO ALLEVIATE PAIN DNR/DNI DVT prophylaxis Eliquis Admission and Anticipated Discharge Date Admission Date: May 09, 2024 Subjective Patient was seen and examined at bedside. Patient was lying in bed, on room air, NAD, resting comfortably. Patient's daughter and son at bedside were also updated on plan of care. Patient Denies shortness of breath and cough. Patient denies chest pain. Patient reports left thigh pain at the site of her bone metastasis. Patient reports eating okay and moving bowels okay. Physical Exam Physical Exam: Constitutional: Awake, alert oriented x 3. Not in any distress. Respiratory: Bilateral basilar crackles present. Cardiovascular: irregular, tachycardic. 100s Chest: normal inspection of chest Abdomen: normal bowel sounds, soft, nontender, no hepatosplenomegaly Musculoskeletal: Bilateral pitting edema present, trace. Neurologic: PERRL, EOMI, accommodation nl, no face palsy, no dysarthria CN's II- XI intact bilaterally and moves all extremities Psychiatric: A+Ox3, euthymic affect Results & Data Results & Data Vital Signs (Past 12 Hours) Vital Signs Temp Pulse Resp BP Pulse Ox O2 Del Method 05/11/24 08:04 36.4 C L 104 H 19 108/69 93 Room Air 05/11/24 03:00 36.9 C 112 H 19 118/78 95 Room Air 05/10/24 22:00 36.3 C L 112 H 18 115/78 96 Room Air (1) CHF (congestive heart failure) Heart failure chronicity: unspecified Heart failure type: unspecified Qualified Code(s): I50.9 - Heart failure, unspecified
[2024-05-11] MEDS ORDERED: MAGNESIUM SULFATE / D5W 1 GM/100 ML BAG IV SCH (09:15)
[2024-05-11] MEDS: MAGNESIUM OXIDE 400 MG TAB PO SCH (11:24)
--- NOTE | 2024-05-11 12:06 | Cardiology Progress Note ---
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 Significant clinical improvement with IV diuresis. Echocardiogram demonstrating low normal LV systolic function. Patient reverting to atrial fibrillation with rapid ventricular response (asymptomatic) 05/09/2024. Remains in atrial fibrillation overnight with mildly elevated rates. Patient unaware of A-fib. Denies palpitations. Additionally, treatment with bevacizumab has been implicated in myocardial toxicity and heart failure. Currently on hold. Recommendations: * Continue IV amiodarone continuous infusion. * Continue metoprolol and apixaban as ordered. * Hold bevacizumab, possibly associated with CHF * Reduce IV lasix to 40mg daily * Monitor fluid balance, daily weight, GFR, and electrolytes. * Maintain serum potassium greater than 4.0, and serum magnesium greater than 2.0. * Continue KCl elixir 20 mEq 3 times daily * Oral magnesium oxide ordered All questions answered to satisfaction both patient and her daughter. Cardiology will continue to follow during hospitalization. Vinnie Curiel DO, [facility] Admission and Anticipated Discharge Date Admission Date: May 09, 2024 Subjective 69-year-old female seen examined at bedside. Continues to note significant discomfort and pain related to bone metastasis. Remains in atrial fibrillation with rapid ventricular response on telemetry. Heart rate 100-120 bpm. Denies palpitations or chest discomfort. Review of Systems Review of Systems: All systems reviewed & are unremarkable except as noted in Subjective Physical Exam Constitutional: + ill appearing and + thin Respiratory: no respiratory distress, no labored breathing and no retractions Auscultation: + diminished lung sounds (left base); no crackles, no rales, no rhonchi and no wheezes Cardiovascular: Rate/Rhythm: + tachycardic and + irregularly irregular Heart Sounds: normal S1 and normal S2; no murmur Vessels: no JVD Extremities: no edema Gastrointestinal (Abdomen): Inspection/Auscultation: abdomen not distended Percussion/Palpation: abdomen soft; abdomen nontender, no guarding and abdomen not rigid Neurologic: CN's II-XI intact bilaterally and moves all extremities; no focal motor deficits Psychiatric: A+Ox3, euthymic affect Results & Data Vital Signs (Past 12 Hours) Vital Signs Temp Pulse Pulse Resp BP Pulse Ox O2 Del Method 05/11/24 11:33 36.3 C L 111 H 19 122/83 97 Room Air 05/11/24 08:04 36.4 C L 104 H 19 108/69 93 Room Air 05/11/24 08:00 110 H 05/11/24 03:00 36.9 C 112 H 19 118/78 95 Room Air
[2024-05-11] MEDS: POTASSIUM CHLORIDE CRTAB 20 MEQ TABCR PO SCH (20:14)
[2024-05-12 07:46] LABS: Hemoglobin 9.6 g/dl (12.0-16.0); Mean Corpuscular Hemoglobin 29.5 pg (25.0-34.0); Mean Corpuscular Volume 92.3 fL (80.0-100.0); Mean Platelet Volume 11.2 fL (9.4-12.4); Platelet Count 127 K/uL (130-400); RDW Coefficient of Variation 15.8 % (11.5-14.5); RDW Standard Deviation 52.7 fL (36.4-46.3); Red Blood Count 3.25 M/uL (4.20-5.40); White Blood Count 7.28 K/ul (4.8-10.8)
[2024-05-12 08:08] LABS: BUN Creatinine Ratio 38.2 (10-20); Calcium 8.4 mg/dl (8.6-10.3); Creatinine Clr Calc Pharmacy 117.8 ml/min; Magnesium 1.8 mg/dl (1.7-2.4); Phosphorus 2.5 mg/dl (2.5-4.9); Potassium 4.2 mmol/L (3.5-5.1)
[2024-05-12 08:20] VITALS: RESP 19
[2024-05-12] MEDS: FUROSEMIDE 40 MG/4 ML VIAL IV SCH (09:49)
--- NOTE | 2024-05-12 10:48 | Cardiology Progress Note ---
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 Significant clinical improvement with IV diuresis. Echocardiogram demonstrating low normal LV systolic function. Patient reverting to atrial fibrillation with rapid ventricular response (asymptomatic) 05/09/2024. Converted to normal sinus rhythm yesterday 05/11/2024 and remains in sinus rhythm overnight. Bevacizumab discontinued (Antineoplastic implicated in myocardial toxicity and heart failure). Recommendations: * Discontinue IV amiodarone infusion. * Transition to oral amiodarone 200 mg twice daily x 10 days then reduce dose to 200 mg once daily. * Continue metoprolol and apixaban as ordered. * Hold bevacizumab, possibly associated with CHF, follow-up with oncology. * Transition to oral furosemide 20 mg daily with 20 mEq p.o. KCl * Maintain serum potassium greater than 4.0, and serum magnesium greater than 2.0. * Oral magnesium oxide ordered, continue at discharge All questions answered to satisfaction both patient and her daughter. Discharge this afternoon pending review of chest x-ray. Outpatient cardiology follow-up in 2 to 4 weeks. Vinnie Curiel DO, [facility] Admission and Anticipated Discharge Date Admission Date: May 09, 2024 Subjective 69-year-old female seen examined at the bedside. Reports "I do not feel right". Possibly feeling short of breath. No cough, orthopnea, or PND. Converted to sinus rhythm yesterday at approximately 3:30 PM. Remains in sinus rhythm overnight. IV amiodarone infusing. Repeat ECG demonstrating normal sinus rhythm with nonspecific ST and T wave abnormality. QTc within acceptable range. Review of Systems Review of Systems: All systems reviewed & are unremarkable except as noted in Subjective Physical Exam Constitutional: + ill appearing and + thin Respiratory: no respiratory distress, no labored breathing and no retractions Auscultation: + diminished lung sounds (left base); no crackles, no rales, no rhonchi and no wheezes Cardiovascular: Rate/Rhythm: + tachycardic and + irregularly irregular Heart Sounds: normal S1 and normal S2; no murmur Vessels: no JVD Extremities: no edema Gastrointestinal (Abdomen): Inspection/Auscultation: abdomen not distended Percussion/Palpation: abdomen soft; abdomen nontender, no guarding and abdomen not rigid Neurologic: CN's II-XI intact bilaterally and moves all extremities; no focal motor deficits Psychiatric: A+Ox3, euthymic affect Results & Data Vital Signs (Past 12 Hours) Vital Signs Temp Pulse Pulse Resp BP Pulse Ox O2 Del Method 05/12/24 08:37 69 05/12/24 08:19 36.5 C 71 19 115/68 97 Room Air 05/12/24 03:00 36.7 C 63 16 108/61 94 Room Air 05/11/24 22:57 36.7 C 72 19 105/63 98 Room Air Laboratory Results CBC 05/12/24 Range/Units 07:26 WBC 7.28 (4.8-10.8) K/ul RBC 3.25 L (4.20-5.40) M/uL Hgb 9.6 L (12.0-16.0) g/dl Hct 30.0 L (37.0-47.0) % Plt Count 127 L (130-400) K/uL Comprehensive Metabolic Panel 05/12/24 Range/Units 07:26 Sodium 132 L (136-145) mmol/L Potassium 4.2 (3.5-5.1) mmol/L Chloride 95 L (98-107) mmol/L Carbon Dioxide 29 (21-32) mmol/L BUN 13 (6-23) mg/dl Creatinine 0.34 L (0.6-1.2) mg/dl Glucose 102 H (70-99(Fasting)) mg/dl Calcium 8.4 L (8.6-10.3) mg/dl Intake and Output 05/11/24 05/12/24 05/12/24 22:59 06:59 14:59 Intake Total 454.595 / 2107.718 1373.123 / 2107.718 Output Total 200 / 550 200 / 550 Balance 254.595 / 8250.751 2264.123 / 1557.718 Intake: IV 214.595 / 387.718 173.123 / 387.718 Amiodarone / D5w 360 mg In 200 214.595 / 387.718 173.123 / 387.718 ml @ 0.5 MG/MIN 16.667 mls/hr IV .Q12H [facility] Rx#:[id number] Oral 240 / 1720 1200 / 1720 Output: Urine Amount (Catheter) 200 / 550 200 / 550 Ordoñez/Indwelling 200 / 550 200 / 550 Other: Weight 50.2 kg Weight Measurement Method Built in [facility]
--- NOTE | 2024-05-12 11:02 | XRay Report ---
EXAM: Radiograph of the Chest 1 View INDICATION: CHF. TECHNIQUE: Frontal view of the chest. COMPARISON: 05/09/2024 FINDINGS: Lungs and pleural spaces: There is persistent but improved CHF. Stable probable small right subpulmonic pleural effusion. No pneumothorax. No consolidation. Heart: Shape and configuration within normal limits allowing for technique. Mediastinum: Normal contour. Bones/joints: No fracture, erosion or dislocation. Soft tissues: No abnormality noted. No radiopaque foreign body noted. Tubes, lines and devices: Right internal jugular port catheter tip terminates in the distal SVC. Upper abdomen: No abnormality noted. IMPRESSION: There is persistent but improved CHF. ACT 112: Negative or not required by law. Electronically signed by Denise Palencia 05-12-2024 11:00 AM
[2024-05-12] MEDS: AMIODARONE 200 MG TAB PO ONE (11:05)
[2024-05-12 11:33] VITALS: BP 117/67; PULSE 72; TEMP 97.9; O2SAT 96
[2024-05-12] MEDS: HEPARIN 100 UNIT/ML 5ML FLUSH FLUSH PRN (12:14)
--- NOTE | 2024-05-12 12:40 | Electrocardiogram Report ---
Test Reason : Blood Pressure : */* mmHG Vent. Rate : 72 BPM Atrial Rate : 72 BPM P-R Int : 156 ms QRS Dur : 74 ms QT Int : 438 ms P-R-T Axes : 54 56 86 degrees QTcB Int : 479 ms Normal sinus rhythm Diffuse Minor Nonspecific ST abnormality Abnormal ECG When compared with ECG of 11-May-2024 05:42, Sinus rhythm has replaced Atrial fibrillation Vent. rate has decreased by 42 bpm Confirmed by Devendra Raymond ([id number]) on 05/12/2024 12:39:37 PM Referred By: REFERRED SELF Confirmed By: Devendra Raymond
--- NOTE | 2024-05-12 13:06 | Discharge Summary ---
Date of Service May 12, 2024 Admission HPI Per Admitting Provider History obtained from chart review and interview with the patient. Past medical history of sigmoid cancer, locally advanced status post low anterior resection and hysterectomy. Had received adjuvant chemotherapy of 10 cycle of FOLFOX but then allergic reaction with the oxaliplatin so she received 2 cycles of FOLFIRI which was completed in July of 2023. Currently on palliative radiation and chemotherapy due to progression of disease with metastatic to bones. Received bevacizumab 04/22 and 05/06. Also on Lonsurf (trifluridine and tipiracil); started recently. Other significant history of remote breast cancer, history of A-fib on metoprolol and Eliquis. Echo in December 2023 shows EF of 55% Patient presents to the hospital with shortness of breath, lower extremity edema and orthopnea for several days. She denies fever, chills, chest pain, abdominal pain or urinary symptoms. She reports pain at places of metastatic disease. She takes morphine for pain relief. Workup in the ED is concerning for CHF; referred for admission. Admission Exam Per Admitting Provider Constitutional: Awake, alert oriented x 3. Not in any distress. Respiratory: Bilateral basilar crackles present. Cardiovascular: Regular, tachycardic. Elevated JVP Chest: normal inspection of chest Abdomen: normal bowel sounds, soft, nontender, no hepatosplenomegaly Musculoskeletal: Bilateral pitting edema present, 2+. Neurologic: PERRL, EOMI, accommodation nl, no face palsy, no dysarthria CN's II- XI intact bilaterally and moves all extremities Psychiatric: A+Ox3, euthymic affect Principal Diagnosis Acute CHF Atrial fibrillation with RVR Discharge Exam Constitutional: Awake, alert oriented x 3. Not in any distress. Respiratory: Bilateral clear breath sound Cardiovascular: Regular, no murmur Chest: normal inspection of chest Abdomen: normal bowel sounds, soft, nontender, no hepatosplenomegaly Musculoskeletal: pitting edema resolved Neurologic: PERRL, EOMI, accommodation nl, no face palsy, no dysarthria CN's II- XI intact bilaterally and moves all extremities Psychiatric: A+Ox3, euthymic affect Discharge Data Allergies Allergy/AdvReac Type Severity Reaction Status Date / Time doxycycline Allergy Intermediate Made me Unverified 04/25/24 09:40 feel worse metoclopramide [From Reglan] Allergy Intermediate Hives Unverified 04/25/24 09:40 Consultations 05/09/24 10:51 ED Decision to Admit Stat 05/09/24 13:38 Consult Cardiology Routine Hospital Course (1) CHF (congestive heart failure): (2) Atrial fibrillation: (3) 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 She is currently under Dr. Almonte's care; on Lonsurf and bevacizumab (received on 04/22 and 05/06). Acute CHF Atrial fibrillation with RVR Patient presents with shortness of breath, orthopnea and bilateral lower extremity edema. BNP elevated to 1246 PG/mL. Chest x-ray reviewed; pulmonary edema present ECHO w/ EF of 50-55%, nl LV wall motion and systolic fxn. Urine protein neg. During the hospitalization, patient was diuresed with IV Lasix with improvement in shortness of breath and bilateral pitting edema. Patient had prolonged episode of atrial fibrillation with RVR requiring amiodarone drip and finally converting into normal sinus rhythm. Patient was discharged on oral Lasix and amiodarone as per recommendation by cardiology. Patient needs to follow-up with oncology to discuss further treatment options. Please note the above document was generated using voice recognition software. It may contain grammatical, syntax or spelling errors. Any formal questions or concerns about the content, text or information contained within the body of this dictation should be directly addressed to the provider for clarification. Total Time Total Time Spent Total Time Spent (In Minutes): 45 Total Time Includes: Examination of the Patient, Discharge Planning, Medication Reconciliation, Communication With Other Providers and Other Discharge Plan Discharge Items Patient Disposition: Home - Self-Care Reason For Visit: CHF Discharge Diagnosis: Acute on chronic diastolic heart failure Atrial fibrillation with RVR Activity: Resume your previous activity Non-emergency contact: Primary Care Provider Call non-emergency contact if: you have any medication questions and your symptoms worsen Follow-up/Referrals: Lina Young MD [Primary Care Provider] - Diet: Regular Addtl Attending Provider Instructions: You were admitted to the hospital due to shortness of breath likely secondary to heart failure. The likely reason could be underlying atrial fibrillation. You were evaluated and treated during the hospitalization by cardiology. They recommend following medication changes Take amiodarone 200 mg twice a day for 10 days, then take amiodarone 200 mg once a day going forward. Take Lasix 20 mg once a day Take potassium chloride tablets and magnesium oxide tablets daily. Follow-up with your oncologist to discuss further cancer treatment. An appointment with your primary care doctor will be set up for you for later this week. Pending Studies at Discharge: No Stand-Alone Forms: My [facility], Smoking Cessation Medications and DC Order Prescriptions: New amiodarone 200 mg Tablet See Taper PO BIDM Qty: 120 0RF Taper: Taper, Blank 200 mg TWICE A DAY for 10 Days 200 mg DAILY for 60 Days potassium chloride 20 mEq Tablet,Er Particles/Crystals 20 meq PO DAILY 30 Days Qty: 30 0RF magnesium oxide 400 mg (241.3 mg magnesium) Tablet 400 mg PO QAM 30 Days Qty: 30 0RF furosemide [Lasix] 20 mg tablet 20 mg PO DAILY Qty: 60 0RF Continued metoprolol succinate 25 mg capsule,sprinkle,ER 24hr 25 mg PO DAILY oxycodone 5 mg tablet 5 mg PO Q4H PRN (Reason: Breakthrough Pain, Moderate) morphine [MS Contin] 15 mg tablet extended release 15 mg PO Q12H ondansetron HCl 8 mg tablet 8 mg PO DIRECTED PRN (Reason: n/v) acetaminophen 500 mg Tablet 500 mg PO Q6H PRN (Reason: Breakthrough Pain) Eliquis 5 mg tablet 5 mg PO BID Held Lonsurf 15-6.14 mg tablet 1 tab PO DIRECTED Hold Instructions: Resume on 05/20/24. Hold until you have discussion with your oncologist. Rx Instructions: filled 04/26 27 day supply #40 Lonsurf 20-8.19 mg tablet 1 tab PO DIRECTED Hold Instructions: Resume on 05/20/24. Hold until you have discussion with your oncologist. Rx Instructions: filled 04/26 27 day supply #20 Discharge Orders: Discharge Order (Routine); Ordered 05/12/24 Ordered By: Lex Noonan Admission Data Admit Date/Time: 05/09/24 11:39 Attending Provider: Lex Noonan Admit Provider: Lex Noonan Primary Care Provider: Lina Young Other Providers: Lex Noonan; Vinnie Curiel Other Interventions: Discharge Summary Assessment (RN) Last Done: 05/12/24 11:48
[2024-05-12] MEDS ORDERED: AMIODARONE 200 MG TAB PO SCH (17:00)
== END 2024-05-12 12:00 | disposition home or self-care (01) | DRG 291 ==
LOC: ED 09:40 → SUATTDRO 11:39 → 2W 11:39 → 4W 20:43

== ENCOUNTER 2024-06-03 17:45 | Inpatient (IN) ==
[2024-06-03] MEDS: ASPIRIN 81 MG CHEW PO STA (18:28)
[2024-06-03] MEDS: ACETAMINOPHEN 500 MG TAB PO STA (18:28)
[2024-06-03] MEDS: dilTIAZem HCl 5 MG/ML 5 ML VIAL IV STA (18:31)
[2024-06-03] MEDS: dilTIAZem HCl 5 MG/ML 5 ML VIAL IV ONE (18:38)
[2024-06-03] MEDS: dilTIAZem HCL 125 MG in DEXTROSE 5% 100 ML IV SCH (18:59)
[2024-06-03 19:11] LABS: BUN Creatinine Ratio 36.8 (10-20); Calcium 8.6 mg/dl (8.6-10.3); Creatinine Clr Calc Pharmacy 100.4 ml/min; Potassium 4.6 mmol/L (3.5-5.1)
[2024-06-03 19:18] LABS: Hematocrit (blood only) 28.7 % (37.0-47.0); Hemoglobin 9.2 g/dl (12.0-16.0); Mean Corpuscular Hemoglobin 27.9 pg (25.0-34.0); Mean Corpuscular Hgb Conc 32.1 g/dL (32.0-36.0); RDW Coefficient of Variation 17.4 % (11.5-14.5); RDW Standard Deviation 55.1 fL (36.4-46.3); Troponin I High Sensitivity 6.7 pg/ml (0-14); White Blood Count 2.25 K/ul (4.8-10.8)
[2024-06-03] MEDS: STAT IV Infusion **Titration per Protocol STA (19:20)
[2024-06-03 19:22] LABS: INR 1.3 (0.9-1.1); Partial Thromboplastin Ratio 2.2; Partial Thromboplastin Time 58 Seconds (21-31); Prothrombin Time 13.7 Seconds (9.0-12.0)
[2024-06-03 19:27] LABS: Platelet Count 34 K/uL (130-400)
[2024-06-03 19:32] LABS: ALC (manual) 0.95 K/uL (1.2-3.4); ANC (manual) 0.81 K/uL (1.4-6.5); Eosinophils # (manual) 0.02 K/uL (0-0.50); Eosinophils % (manual) 1 %; Lymphocytes # (manual) 0.95 K/uL (1.2-3.4); Lymphocytes % (manual) 42 %; Metamyelocytes # (manual) 0.05 K/uL (0-0); Metamyelocytes % (manual) 2 %; Monocytes # (manual) 0.36 K/uL (0.11-0.59); Monocytes % (manual) 16 %; Myelocytes # (manual) 0.07 K/uL (0-0); Myelocytes % (manual) 3 %; Neutrophils # (manual) 0.81 K/uL (1.40-6.50); Neutrophils % (manual) 36 %; RBC Morphology Unremarkable
[2024-06-03] MEDS ORDERED: HYDROmorphone INJ 0.5 MG/0.5 ML SYR IV PRN ×2 (20:29→21:52)
[2024-06-03] MEDS ORDERED: oxyCODONE HCL IR 5 MG TAB (IMMEDIATE RELEASE) PO PRN ×2 (20:29→21:52)
[2024-06-03] MEDS: FUROSEMIDE 40 MG/4 ML VIAL IV ONE (20:33)
--- NOTE | 2024-06-03 20:36 | XRay Report ---
EXAM: XR chest 1V portable CLINICAL HISTORY: Chest pain, nonspecific TECHNIQUE: An X-ray image of the chest is obtained in AP projection. COMPARISON: Compared to prior chest x-ray dated 05/12/2024,05/09/2024,11/02/2023, CT dated 05/24/2024. FINDINGS: Pulmonary Parenchyma: Mild interstitial prominence noted. Lungs are otherwise, clear bilaterally. No evidence of consolidation, collapse, or focal opacities. No pulmonary nodules are identified. No evidence of pleural effusion or pleural thickening. Right-sided implantation port is seen at the right [id number] shadow. Heart and Mediastinum: Heart size and shape are normal. No mediastinal widening or masses. No hilar or mediastinal lymphadenopathy. Port-A-Cath is identified with its tip at the atriocaval unction. Bony Thorax: The bony thorax appears intact without fractures or deformities. Soft Tissues: Soft tissues overlying the chest wall are unremarkable. IMPRESSION: No acute cardiopulmonary abnormalities are identified. (unchanged) Electronically signed by Michelle Nuñez 06-03-2024 8:35 PM
[2024-06-03] MEDS: oxyCODONE HCL 15 MG TABCR (OxyCONTIN) PO SCH (21:03)
--- NOTE | 2024-06-03 21:29 | History & Physical Report ---
Date of Service June 03, 2024 Assessment & Plan (1) Shortness of breath: Plan: -unclear etiology -chest xray unremarkable, has been going on for 1 day, per patient feels like a CHF exaccerbation -appears only mildly fluid overloaded on exam, JVP not elevated, trace pitting edema in legs bilaterally -Wells score of 4 suggestive of moderate risk for PE -differential includes decompensated HF/pulmonary edema, PE, viral pneumonia, less likely bacterial pneumonia, COPD exaccerbation (no wheezing on exam), MS (troponin negative x1) Plan: -check CTA PE to r/o pulmonary embolism -check biofire for viral etiologies -prn nebulizers, incentive spirometry ordered -trend troponin given nonspecific ST changes on EKG -check procal (2) Paroxysmal atrial fibrillation: Plan: -noted to be in RVR on arrival -patient asymptomatic -has not missed doses of amiodarone -has recent checked TSH WNL Plan: -given patient is on amiodarone already, start dilt drip (last EF of 50-55%) -continue home amiodarone -consult cardiology in AM, appreciate recs -continue eliquis -focus on euvolemia, K>4, Mg>2 -hold home succinate, start metoprolol tartrate 25mg q6hrs scheduled (3) CHF (congestive heart failure): Plan: -patient is 3Kg above dry weight per trend, base weight is around 47kg -patient has elevated BNP, trace pitting edema -however, notable hyponatremia to 125 -given lasix 40 IV x1 in ED Plan: -trend BMP -hold off on additional diuresis until see Na trend -hold off on echo for now given 1 done 1 week ago (4) Hyponatremia: Plan: -unclear etiology at this time, could be 2/2 heart failure vs. dehydration vs. 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: Plan: -see above, has been through extensive systemic therapies -for past 2 weeks ECOG has been 3 sliding to 4 -plan for further therapies on Monday, radiation tomorrow Plan: -discuss with radiation oncology in morning -will discuss with palliative care and oncology providers tomorrow -may benefit from course of steroids to boost functional status, but given immunotherapy will hold off for now (6) Pain from bone metastases: Plan: -continue home oxycontin, oxycodone, prn dilaudid for breakthrough (7) Pancytopenia: Plan: -acute pancytopenia, notable new leukopenia, thrombocytopenia, Hgb slightly lower than normal -unclear etiology, concern for bone marrow suppression from signifigant metastatic disease vs. delayed immunotherapy/chemotherapy/radiation side effect vs. myelofibrosis/ aplastic anemia vs. less likely nutrition deficincies, secondary malignancy, DIC, TTP, HUS Plan: -will discuss with hematology provider tomorrow -peripheral smear ordered -check B12, folic acid, reticulocyte count, LDH, haptoglobin, fibrinogen Plan Feeding/fluids: heart healthy Analgesia: oxycontin/oxycodone Sedation: na Thromboprophylaxis: eliquis Head up position: na Ulcer prophylaxis: na Glycemic control: na Spontaneous breathing tr naial: Bowel care: miralax prn Indwelling catheter removal: na Deescalation of antibiotics: na I spent a total of 80 minutes in direct patient care, including [id number] time with the patient and/or family, reviewing medical records, ordering and reviewing diagnostic tests, and coordinating care with other healthcare providers. This time includes: history taking, physical examination, medical decision making, counseling, ECG interpretation, imaging interpretation, lab interpretation, orders, and education, excluding time spent in the performance of separately billed services. I spent a total of 30 minutes providing advanced care planning to the patient and/or family, including [id number] time discussing the patient's health status, prognosis, and treatment options. This time includes specific activities such as: discussing advance directives, goals of care, prognostication, and end-of-life planning. History of Present Illness Chief Complaint: -SOB, ankle swelling Primary Care Provider: Lina Young MD 69 yo female with pmhx of stage IIIC poorly differentiated sigmoid adenocarcinoma (s/p ALEXA/BSO, laparoscopic coloproctostomy, s/p radiation treatments to right scapula/lumbar spine/left femur, s/p FOLFOX---->FOLFIRI, now with widespread metastatic disease, current tx of bevacizumab), hx of breast cancer, paroxysmal atrial fibrillation (on amiodarone, eliquis), HFpEF, hyponatremia who presentes for SOB and ankle swelling x1 day. Of note, had admission for similar concerns 3 weeks ago. Patient states that symptoms began yesterday. She states it started with some swelling in her toes that then spread to her ankles. She also has had a nasty cough for the past 2 days, which appears to be getting worse. She is having to use pillows to prop herself up to be able to breathe properly. She states this feels like her prior heart failure exacerbations. She states she is due for another cancer treatment on Monday. She denies chest pain, nausea, vomiting, other symptoms at this time. Still smokes about 6 cigarettes a day. Discussed patient's current trajectory. Discussed patient's goals and values. Patient states she would like to continue to pursue treatments for her cancer. Patient states that for the past 2 weeks she has essentially been in bed. Her ECOG is now 3 to sliding to a 4. We discussed the cancer trajectory, including next steps. Patient states she would like to be DNR/DNI at this time and has discussed this at length with prior providers. She does not want to suffer at end-of-life. She understands that she is likely declining. Allergies Allergy/AdvReac Type Severity Reaction Status Date / Time doxycycline Allergy Intermediate Made me Unverified 06/03/24 19:38 feel worse metoclopramide [From Reglan] Allergy Intermediate Hives Unverified 06/03/24 19:38 Home Medications Medication Instructions Recorded Confirmed Type metoprolol succinate 25 mg capsule 25 mg PO QAM 11/14/23 06/03/24 History sprinkle, ext. release 24 hr morphine 15 mg tablet,extended 15 mg PO AMHS 04/25/24 05/27/24 History release (MS Contin) oxycodone 5 mg tablet 5 mg PO Q4H PRN Breakthrough Pain, 04/25/24 06/03/24 History Moderate acetaminophen 500 mg tablet 500 mg PO Q6H PRN Breakthrough Pain 05/09/24 06/03/24 History apixaban 5 mg tablet (Eliquis) 5 mg PO AMHS 05/09/24 06/03/24 History ondansetron HCl 8 mg tablet 8 mg PO DIRECTED PRN n/v 05/09/24 06/03/24 History trifluridine 15 mg-tipiracil 6.14 1 tab PO DIRECTED 05/09/24 06/03/24 History mg tablet (Lonsurf) trifluridine 20 mg-tipiracil 8.19 1 tab PO DIRECTED 05/09/24 06/03/24 History mg tablet (Lonsurf) amiodarone 200 mg tablet See Taper PO BIDM #120 tabs 05/12/24 06/03/24 Rx furosemide 20 mg tablet (Lasix) 20 mg PO DAILY #60 tabs 05/12/24 06/03/24 Rx magnesium oxide 400 mg (241.3 mg 400 mg PO QAM 30 days #30 tabs 05/12/24 06/03/24 Rx magnesium) tablet potassium chloride 20 mEq 20 meq PO DAILY 30 days #30 tabs 05/12/24 06/03/24 Rx tablet,extended release(part/cryst) Past Med/Surg History Problem List (Updated 06/03/24 @ 21:34 by Tyrone Galeana MD) Shortness of breath Hyponatremia Pancytopenia Acute heart failure with preserved ejection fraction (Acute) Paroxysmal atrial fibrillation (Acute) Elevated troponin (Acute) Pulmonary edema (Acute) Acute hypoxic respiratory failure (Acute) Atrial fibrillation CHF (congestive heart failure) (Acute) 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 (Acute) Pain from bone metastases (Chronic) Medical History Breast cancer Surgical History History of bowel resection Hx of cystoscopy S/P total hysterectomy and BSO (bilateral salpingo-oophorectomy) H/O right mastectomy Family History Mother Cancer breast x 2 25 yrs apart Aunt Cancer multiple aunts with different forms of cancer Social History Smoking Status: Current every day smoker Tobacco Type: Cigarettes Second Hand Exposure: No; Do You Dip or Chew Tobacco: No; Hx Alcohol Use: No Hx Substance Use: No Preferred Language: [place]ian Communication Ability: Effective Visual Impairment: No Limitations Hearing Ability: Normal Human Resources Trainer Required: No Beliefs That Will Affect Care: None Current Living Situation: Family current occupational status: retired Feels Safe at Home: Yes Diet: regular during the past year weight has: remained stable Assistive Devices: Cane Review of Systems Review of Systems: CONSTITUTIONAL: Patient denies fevers, chills, sweats and weight changes. EYES: Patient denies any visual symptoms. EARS, NOSE, AND THROAT: No difficulties with hearing. No symptoms of rhinitis or sore throat. CARDIOVASCULAR: Patient denies chest pains, palpitations, orthopnea and paroxysmal nocturnal dyspnea. RESPIRATORY: SOB, cough GI: No nausea, vomiting, diarrhea, constipation, abdominal pain, hematochezia or melena. : No urinary hesitancy or dribbling. No nocturia or urinary frequency. No abnormal urethral discharge. MUSCULOSKELETAL: No myalgias or arthralgias. NEUROLOGIC: No chronic headaches, no seizures. Patient denies numbness, tingling or weakness. PSYCHIATRIC: Patient denies problems with mood disturbance. No problems with anxiety. ENDOCRINE: No excessive urination or excessive thirst. DERMATOLOGIC: Patient denies any rashes or skin changes. Physical Exam Physical Exam: Gen: A&O 3 NAD, cachexia noted HEENT: NCAT, EOMI, not icteric. External ears normal. No rhinorrhea. Moist mucous membranes. Neck: Supple, full range of motion, no observable masses, No meningeal sign. Lungs: No Respiratory distress. CV: irregular rhythm, regular rate Abdomen: Soft, nondistended, No rebound tenderness. MSK: No joint swelling, no redness. 1+ pitting edema to assisted up calf bilaterally Skin: No rashes, petechiae, lesions. Normal color per patient. Neuro: Normal Gait, Grossly intact. Psych: Appropriate for situation. Results & Data Results & Data Vital Signs (Past 12 Hours) Vital Signs Temp Pulse Pulse Resp BP BP Pulse Ox 06/03/24 21:00 117 H 15 126/82 98 06/03/24 20:46 129 H 16 107/92 96 06/03/24 20:30 113 H 15 114/76 98 06/03/24 20:00 120 H 14 100/85 96 06/03/24 20:00 105 H 17 100/85 99 06/03/24 19:45 124 H 20 104/78 98 06/03/24 19:15 117 H 21 99/73 L 97 06/03/24 19:10 123 H 17 112/60 98 06/03/24 18:49 127 H 16 119/82 98 06/03/24 18:38 133 H 06/03/24 18:14 36.7 C 149 H 22 104/74 98 O2 Del Method 06/03/24 21:00 Room Air 06/03/24 20:46 Room Air 06/03/24 20:30 Room Air 06/03/24 20:00 Room Air 06/03/24 20:00 Room Air 06/03/24 19:45 Room Air 06/03/24 19:15 Room Air 06/03/24 19:10 Room Air 06/03/24 18:49 Room Air 06/03/24 18:38 06/03/24 18:14 Room Air Laboratory Results -personally reviewed, hyponnatremia noted, creatinine near baseline, BNP elevated with slight fluid overload suggestive of potential decompensated HFpEF, noted pancytopenia of unknown etiology Diagnostic Findings Chest X-Ray 06/03/24 18:23 EXAM: XR chest 1V portable CLINICAL HISTORY: Chest pain, nonspecific TECHNIQUE: An X-ray image of the chest is obtained in AP projection. COMPARISON: Compared to prior chest x-ray dated 05/12/2024,05/09/2024,11/02/2023, CT dated 05/24/2024. FINDINGS: Pulmonary Parenchyma: Mild interstitial prominence noted. Lungs are otherwise, clear bilaterally. No evidence of consolidation, collapse, or focal opacities. No pulmonary nodules are identified. No evidence of pleural effusion or pleural thickening. Right-sided implantation port is seen at the right [id number] shadow. Heart and Mediastinum: Heart size and shape are normal. No mediastinal widening or masses. No hilar or mediastinal lymphadenopathy. Port-A-Cath is identified with its tip at the atriocaval unction. Bony Thorax: The bony thorax appears intact without fractures or deformities. Soft Tissues: Soft tissues overlying the chest wall are unremarkable. IMPRESSION: No acute cardiopulmonary abnormalities are identified. (unchanged) Electronically signed by Michelle Nuñez 06-03-2024 8:35 PM Medications Administered Diltiazem HCl 125 mg/ Dextrose 125 mls @ 5 mls/hr IV .Q24H LAVON; Protocol Stop: 07/03/24 18:44 Last Titration: 06/03/24 21:15 Dose: 10 mg/hr, 10 mls/hr Documented By: AZRA Co-signed By: JONG Admin: 06/03/24 18:59 Dose: 5 mg/hr, 5 mls/hr Documented By: AZRA Co-signed By: JONG Oxycodone HCl (Oxycodone Hcl 15 Mg Tabcr (Oxycontin)) 15 mg PO Q12H LAVON Stop: 06/17/24 20:29 Last Admin: 06/03/24 21:03 Dose: 15 mg Documented By: AZRA Code Status & VTE Plan Code Status DNRDNI (3) CHF (congestive heart failure) Heart failure chronicity: unspecified Heart failure type: unspecified Qualified Code(s): I50.9 - Heart failure, unspecified
[2024-06-03] MEDS ORDERED: ALBUT/IPRATROP 3MG/0.5MG NEB 3 ML VIAL NEB PRN (21:38)
[2024-06-03] MEDS ORDERED: POLYETHYLENE (MIRALAX) 17 GM PACK PO PRN (21:57)
[2024-06-03] MEDS ORDERED: ONDANSETRON INJ 2 MG/ML 2 ML VIAL IV PRN (21:57)
--- NOTE | 2024-06-03 22:01 | Emergency Department Note ---
History of Present Illness General Chief Complaint: Swelling/Edema to Extremity Stated Complaint: SOB, SWELLING IN ANKLES/FEET, UNABLE TO VOID Time Seen by Provider: 06/03/24 18:20 History of Present Illness Provider Complaint: shortness of breath Onset (ago): day(s) (2) Consistency/Duration: + progressively worsening Maximum Pain Intensity: 7 Relieved By: + upright position Exacerbated By: + lying flat Known history of: congestive heart failure Associated symptoms: + orthopnea and + chest congestion; no chest pain, no cough, no wheezing, no sputum production or no syncope Home Medications Medication Instructions Recorded Confirmed Type metoprolol succinate 25 mg capsule 25 mg PO QAM 11/14/23 06/03/24 History sprinkle, ext. release 24 hr morphine 15 mg tablet,extended 15 mg PO AMHS 04/25/24 05/27/24 History release (MS Contin) oxycodone 5 mg tablet 5 mg PO Q4H PRN Breakthrough Pain, 04/25/24 06/03/24 History Moderate acetaminophen 500 mg tablet 500 mg PO Q6H PRN Breakthrough Pain 05/09/24 06/03/24 History apixaban 5 mg tablet (Eliquis) 5 mg PO AMHS 05/09/24 06/03/24 History ondansetron HCl 8 mg tablet 8 mg PO DIRECTED PRN n/v 05/09/24 06/03/24 History trifluridine 15 mg-tipiracil 6.14 1 tab PO DIRECTED 05/09/24 06/03/24 History mg tablet (Lonsurf) trifluridine 20 mg-tipiracil 8.19 1 tab PO DIRECTED 05/09/24 06/03/24 History mg tablet (Lonsurf) amiodarone 200 mg tablet See Taper PO BIDM #120 tabs 05/12/24 06/03/24 Rx furosemide 20 mg tablet (Lasix) 20 mg PO DAILY #60 tabs 05/12/24 06/03/24 Rx magnesium oxide 400 mg (241.3 mg 400 mg PO QAM 30 days #30 tabs 05/12/24 06/03/24 Rx magnesium) tablet potassium chloride 20 mEq 20 meq PO DAILY 30 days #30 tabs 05/12/24 06/03/24 Rx tablet,extended release(part/cryst) Allergies Allergy/AdvReac Type Severity Reaction Status Date / Time doxycycline Allergy Intermediate Made me Unverified 06/03/24 19:38 feel worse metoclopramide [From Reglan] Allergy Intermediate Hives Unverified 06/03/24 19:38 Past Med/Surg History Problem List Shortness of breath Hyponatremia Pancytopenia Acute heart failure with preserved ejection fraction (Acute) Paroxysmal atrial fibrillation (Acute) Elevated troponin (Acute) Pulmonary edema (Acute) Acute hypoxic respiratory failure (Acute) Atrial fibrillation CHF (congestive heart failure) (Acute) 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 (Acute) Pain from bone metastases (Chronic) Medical History Breast cancer Surgical History History of bowel resection Hx of cystoscopy S/P total hysterectomy and BSO (bilateral salpingo-oophorectomy) H/O right mastectomy Family History Mother Cancer breast x 2 25 yrs apart Aunt Cancer multiple aunts with different forms of cancer Social History Smoking Status: Current every day smoker Tobacco Type: Cigarettes Second Hand Exposure: No; Do You Dip or Chew Tobacco: No; Hx Alcohol Use: No Hx Substance Use: No Preferred Language: French Communication Ability: Effective Visual Impairment: No Limitations Hearing Ability: Normal Patent Clerk Required: No Beliefs That Will Affect Care: None Current Living Situation: Family current occupational status: retired Feels Safe at Home: Yes Diet: regular during the past year weight has: remained stable Assistive Devices: Cane Physical Exam 2 Vital Signs: Vital Signs - 24 hr 06/03/24 18:14 06/03/24 18:38 06/03/24 18:49 Temperature 36.7 C Temperature Source Temporal Artery Sc an Pulse Rate 149 H 133 H Pulse Rate [Apical ] 127 H Pulse Rate from Sp O2 Sensor Pulse Rhythm [Apic al] Regular Pulse Strength [Ap ical] Respiratory Rate 22 16 Respiratory Effort / Characteristics Respiratory Depth Normal Respiratory Patter n Blood Pressure 104/74 Blood Pressure [Le ft Arm] 119/82 Blood Pressure Bailey n 84 Blood Pressure Bailey n [Left Arm] 94 Blood Pressure Pos ition [Left Arm] Sitting Pulse Oximetry 98 98 Oxygen Delivery Me thod Room Air Room Air Sepsis Recent Feve r Within 48 Hours No Sepsis New/Unexpla ined Change in Men delmis Status N/A Sepsis Action Take n by Nursing Physician Notified 06/03/24 19:10 06/03/24 19:15 06/03/24 19:45 Temperature Temperature Source Pulse Rate 123 H 117 H 124 H Pulse Rate [Apical ] Pulse Rate from Sp O2 Sensor 110 H 120 H Pulse Rhythm [Apic al] Pulse Strength [Ap ical] Respiratory Rate 17 21 20 Respiratory Effort / Characteristics Respiratory Depth Respiratory Patter n Blood Pressure 112/60 99/73 L 104/78 Blood Pressure [Le ft Arm] Blood Pressure Bailey n 68 81 86 Blood Pressure Bailey n [Left Arm] Blood Pressure Pos ition [Left Arm] Pulse Oximetry 98 97 98 Oxygen Delivery Me thod Room Air Room Air Room Air Sepsis Recent Feve r Within 48 Hours Sepsis New/Unexpla ined Change in Men delmis Status Sepsis Action Take n by Nursing 06/03/24 20:00 06/03/24 20:00 06/03/24 20:30 Temperature Temperature Source Pulse Rate 105 H 120 H 113 H Pulse Rate [Apical ] Pulse Rate from Sp O2 Sensor Pulse Rhythm [Apic al] Pulse Strength [Ap ical] Respiratory Rate 17 14 15 Respiratory Effort / Characteristics Respiratory Depth Respiratory Patter n Blood Pressure 100/85 100/85 114/76 Blood Pressure [Le ft Arm] Blood Pressure Bailey n 89 89 84 Blood Pressure Bailey n [Left Arm] Blood Pressure Pos ition [Left Arm] Pulse Oximetry 99 96 98 Oxygen Delivery Me thod Room Air Room Air Room Air Sepsis Recent Feve r Within 48 Hours Sepsis New/Unexpla ined Change in Men delmis Status Sepsis Action Take n by Nursing 06/03/24 20:46 06/03/24 21:00 06/03/24 21:15 Temperature Temperature Source Pulse Rate Pulse Rate [Apical ] 129 H 117 H 130 H Pulse Rate from Sp O2 Sensor Pulse Rhythm [Apic al] Regular Regular Regular Pulse Strength [Ap ical] Normal Normal Normal Respiratory Rate 16 15 15 Respiratory Effort / Characteristics Non-Labored Sponta neous Non-Labored Sponta neous Non-Labored Sponta neous Respiratory Depth Normal Normal Normal Respiratory Patter n Regular Regular Regular Blood Pressure Blood Pressure [Le ft Arm] 107/92 126/82 129/76 Blood Pressure Bailey n Blood Pressure Bailey n [Left Arm] 97 96 93 Blood Pressure Pos ition [Left Arm] Sitting Sitting Sitting Pulse Oximetry 96 98 95 Oxygen Delivery Me thod Room Air Room Air Room Air Sepsis Recent Feve r Within 48 Hours Sepsis New/Unexpla ined Change in Men delmis Status Sepsis Action Take n by Nursing Physical Exam: Physical Exam GENERAL: oriented to person, place, and time. appears well-developed and well- nourished. HENT: Exam performed. - Head: Normocephalic and atraumatic. EYES: Conjunctivae and EOM are normal. Right eye exhibits no discharge. Left eye exhibits no discharge. No scleral icterus. NECK: Normal range of motion. Neck supple. No JVD present. CV: Tachycardic rate, irregular rhythm, normal heart sounds and intact distal pulses. 2+ pitting edema of the bilateral extremities. Palpable radial pulses bue. PULM/CHEST: Inspiratory Rales at the bases. NEURO: Motor and sensation grossly intact. SKIN: Skin is warm and dry. He is not diaphoretic. PSYCH: normal mood and affect. Behavior is normal. Judgment and thought content normal. Course Course 1819: The patient was evaluated in room B1. A complete history and physical exam was performed Cardiac monitoring: An order was placed for continuous cardiac monitoring. The monitor shows a rate of 140 with atrial fibrilation rhythm interpreted by me Patient's port was accessed and Cardizem 10 mg IV push was ordered for the patient which improved the patient's ventricular rate. Patient will be started on Cardizem drip. 2024: Vital signs stable on Cardizem drip. Labs show white blood cell count 2.25 hemoglobin 9.2 platelet count 34 sodium 125 creatinine 0.38 BNP 957 high- sensitivity troponin 6.7 magnesium 2. Chest x-ray shows cardiomegaly but not much cephalization. No significant change from the chest x-ray February 09, 2025. Discussed case with admitting team Dr. Galeana. He does recommend given the patient's Lasix 40 mg IV push. Patient will be admitted to his service. Administered Medications Diltiazem HCl 125 mg/ Dextrose 125 mls @ 10 mls/hr IV .[id number] [facility]; Protocol Stop: 07/03/24 18:44 Last Titration: 06/03/24 21:15 Dose: 10 mg/hr, 10 mls/hr Documented By: AZRA Co-signed By: JONG Admin: 06/03/24 18:59 Dose: 5 mg/hr, 5 mls/hr Documented By: AZRA Co-signed By: JONG Oxycodone HCl (Oxycodone Hcl 15 Mg Tabcr (Oxycontin)) 15 mg PO Q12H LAVON Stop: 06/17/24 20:29 Last Admin: 06/03/24 21:03 Dose: 15 mg Documented By: AZRA Discontinued Medications Acetaminophen (Acetaminophen 500 Mg Tab) 1,000 mg PO NOW STA Stop: 06/03/24 18:25 Last Admin: 06/03/24 18:28 Dose: 1,000 mg Documented By: CALLUM Aspirin (Aspirin 81 Mg Chew) 324 mg PO NOW STA Stop: 06/03/24 18:25 Last Admin: 06/03/24 18:28 Dose: 324 mg Documented By: CALLUM Diltiazem HCl (Diltiazem Hcl 5 Mg/Ml 5 Ml Vial) Confirm Administered Dose 25 mg IV .STK-MED ONE Stop: 06/03/24 18:24 Last Admin: 06/03/24 18:38 Dose: Not Given Documented By: CALLUM Diltiazem HCl (Diltiazem Hcl 5 Mg/Ml 5 Ml Vial) 10 mg IV NOW STA Stop: 06/03/24 18:25 Last Admin: 06/03/24 18:31 Dose: 10 mg Documented By: CALLUM Co-signed By: ELAINE Furosemide (Furosemide 40 Mg/4 Ml Vial) 40 mg IV ONE ONE Stop: 06/03/24 20:25 Last Admin: 06/03/24 20:33 Dose: 40 mg Documented By: AZRA Miscellaneous (Stat Iv Infusion Titration Per Protocol) 1 each N/A NOW STA Stop: 06/03/24 18:38 Last Admin: 06/03/24 19:20 Dose: Not Given Documented By: AZRA Medical Decision Making Laboratory Data Attestation: I reviewed the patient's lab results. 06/03/24 18:35 06/03/24 18:35 Lab Results 06/03/24 Range/Units 18:35 WBC 2.25 L (4.8-10.8) K/ul RBC 3.30 L (4.20-5.40) M/uL Hgb 9.2 L (12.0-16.0) g/dl Hct 28.7 L (37.0-47.0) % MCV 87.0 (80.0-100.0) fL MCH 27.9 (25.0-34.0) pg MCHC 32.1 (32.0-36.0) g/dL RDW Std Deviation 55.1 H (36.4-46.3) fL RDW Coeff of Katina 17.4 H (11.5-14.5) % Plt Count 34 L (130-400) K/uL MPV 11.0 (9.4-12.4) fL Neutrophils % (Manual) 36 % Lymphocytes % (Manual) 42 % Monocytes % (Manual) 16 % Eosinophils % (Manual) 1 % Metamyelocytes % (Man) 2 % Myelocytes % (Man) 3 % Neutrophils # (Manual) 0.81 L (1.40-6.50) K/uL Total Absolute Neuts 0.81 L* (1.4-6.5) K/uL Lymphocytes # (Manual) 0.95 L (1.2-3.4) K/uL Total Abs Lymphocytes 0.95 L (1.2-3.4) K/uL Monocytes # (Manual) 0.36 (0.11-0.59) K/uL Eosinophils # (Manual) 0.02 (0-0.50) K/uL Metamyelocytes # (Man) 0.05 H (0-0) K/uL Myelocytes # (Manual) 0.07 H (0-0) K/uL RBC Morphology Unremarkable PT 13.7 H (9.0-12.0) Seconds INR 1.3 H (0.9-1.1) APTT 58 H (21-31) Seconds PTT Ratio 2.2 Sodium 125 L (136-145) mmol/L Potassium 4.6 (3.5-5.1) mmol/L Chloride 92 L (98-107) mmol/L Carbon Dioxide 25 (21-32) mmol/L Anion Gap 8 (3-11) BUN 14 (6-23) mg/dl Creatinine 0.38 L (0.6-1.2) mg/dl Est Cr Clr Drug Dosing 100.4 ml/min eGFR 108.40 BUN/Creatinine Ratio 36.8 H (10-20) Glucose 98 (70-99(Fasting)) mg/dl Calcium 8.6 (8.6-10.3) mg/dl Magnesium 2.0 (1.7-2.4) mg/dl Troponin I High Sens 6.7 (0-14) pg/ml B-Natriuretic Peptide 957 H (0-100) pg/ml Lipase 6 L (11-82) U/L Imaging Data Attestation: I personally reviewed and interpreted this imaging study as follows: My Impression: Chest x-ray shows cardiomegaly but not much cephalization. No significant change from the chest x-ray February 09, 2025. Radiologist's Impression: Chest X-Ray 06/03/24 18:23 EXAM: XR chest 1V portable CLINICAL HISTORY: Chest pain, nonspecific TECHNIQUE: An X-ray image of the chest is obtained in AP projection. COMPARISON: Compared to prior chest x-ray dated 05/12/2024,05/09/2024,11/02/2023, CT dated 05/24/2024. FINDINGS: Pulmonary Parenchyma: Mild interstitial prominence noted. Lungs are otherwise, clear bilaterally. No evidence of consolidation, collapse, or focal opacities. No pulmonary nodules are identified. No evidence of pleural effusion or pleural thickening. Right-sided implantation port is seen at the right [id number] shadow. Heart and Mediastinum: Heart size and shape are normal. No mediastinal widening or masses. No hilar or mediastinal lymphadenopathy. Port-A-Cath is identified with its tip at the atriocaval unction. Bony Thorax: The bony thorax appears intact without fractures or deformities. Soft Tissues: Soft tissues overlying the chest wall are unremarkable. IMPRESSION: No acute cardiopulmonary abnormalities are identified. (unchanged) Electronically signed by Michelle Nuñez 06-03-2024 8:35 PM ECG Data Attestation: I personally reviewed and interpreted this ECG as follows: Interpretation: EKG #1 at 1824: Atrial fibrillation with a rate of 142. QRS and QTc intervals are within normal limits. No ST elevation or ST depression EKG #2 at 1838 status post Cardizem 10 mg IV bolus: Atrial fibrillation with rate 117. QRS [address] elevation or ST depression. MDM Narrative 1820: The patient was evaluated in room B1. A complete history and physical exam was performed Cardiac monitoring: An order was placed for continuous cardiac monitoring. The monitor shows a rate of 140 with atrial fibrilation rhythm interpreted by me Patient's port was accessed and Cardizem 10 mg IV push was ordered for the patient which improved the patient's ventricular rate. Patient will be started on Cardizem drip. 2024: Vital signs stable on Cardizem drip. Labs show white blood cell count 2.25 hemoglobin 9.2 platelet count 34 sodium 125 creatinine 0.38 BNP 957 high- sensitivity troponin 6.7 magnesium 2. Chest x-ray shows cardiomegaly but not much cephalization. No significant change from the chest x-ray February 09, 2025. Discussed case with admitting team Dr. Galeana. He does recommend given the patient's Lasix 40 mg IV push. Patient will be admitted to his service. Impression & Plan Atrial fibrillation with RVR, CHF (congestive heart failure) Critical Care Time Critical Care Time: Yes Total Critical Care Time: 59 I have personally spent greater than 59 minutes of critical care time in the direct management of this patient. This includes bedside care, interpretation of diagnostic studies, and testing, discussion with consultants, patient, and family members, and other required patient management activities. This 59 minutes is in excess of all separately billable procedures. Discharge Plan Visit Data Chief Complaint: Swelling/Edema to Extremity Stated Complaint: SOB, SWELLING IN ANKLES/FEET, UNABLE TO VOID ED Provider: Russell Silva Discharge Problem: Atrial fibrillation with RVR, CHF (congestive heart failure) Patient Disposition: Admitted As Inpatient
[2024-06-03 22:16] LABS: Appearance Urine Clear (Clear); Bilirubin Urine Negative (Negative); Blood Urine Negative (Negative); Color Urine Yellow; Glucose Urine UA Negative (Negative); Ketones Urine Negative (Negative); Leukocyte Esterase Urine Negative (Negative); Nitrite Urine Negative (Negative); Protein Urine Negative (Negative); Specific Gravity Urine 1.004 (1.000-1.030); Urobilinogen Urine Negative (Negative)
[2024-06-03 22:22] LABS: Reticulocyte % 2.46 % (0.50-2.00)
[2024-06-03] MEDS: APIXABAN 5 MG TABLET PO SCH (22:40)
[2024-06-03 22:51] LABS: Adenovirus PCR Not Detected (NotDetected); Bordetella parapertussis PCR Not Detected (NotDetected); Bordetella pertussis PCR Not Detected (NotDetected); Chlamydia pneumoniae PCR Not Detected (NotDetected); Coronavirus 229E PCR Not Detected (NotDetected); Coronavirus CoV-2 (COVID19)PCR DETECTED (NotDetected); Coronavirus HKU1 PCR Not Detected (NotDetected); Coronavirus NL63 PCR Not Detected (NotDetected); Coronavirus OC43PCR Not Detected (NotDetected); Human Metapneumovirus PCR Not Detected (NotDetected); Influenza A PCR Not Detected (NotDetected); Influenza B PCR Not Detected (NotDetected); Mycoplasma pneumoniae PCR Not Detected (NotDetected); Parainfluenza Virus 1 PCR Not Detected (NotDetected); Parainfluenza Virus 2 PCR Not Detected (NotDetected); Parainfluenza Virus 3 PCR Not Detected (NotDetected); Parainfluenza Virus 4 PCR Not Detected (NotDetected); Respiratory Syncytial VirusPCR Not Detected (NotDetected); Rhinovirus/Enterovirus PCR Not Detected (NotDetected)
[2024-06-03 23:29] LABS: Albumin Level 3.1 gm/dl (3.4-5.0); Bilirubin Direct 0.1 mg/dl (0-0.2); Bilirubin,Total 0.5 mg/dl (0.2-1.0); Calcium 8.3 mg/dl (8.6-10.3); Creatinine Clr Calc Pharmacy 95.3 ml/min; Potassium 3.9 mmol/L (3.5-5.1); Total Protein 6.1 gm/dl (6.0-8.3)
[2024-06-03 23:36] LABS: Troponin I High Sensitivity 6.4 pg/ml (0-14)
[2024-06-03 23:47] LABS: Fibrinogen 850 mg/dl (184-400)
[2024-06-03] MEDS: OPTIRAY 320 125ml IV ONE (23:47)
[2024-06-03 23:53] LABS: D Dimer 1130 ug/L FEU (0-500)
[2024-06-03 23:55] LABS: Folate (Folic Acid),Ser orPlas 10.16 ng/ml (>5.38)
[2024-06-04] MEDS: METOPROLOL TARTRATE 25 MG TAB PO SCH (00:25)
--- NOTE | 2024-06-04 01:27 | CT Scan Report ---
Exam(s): CTA CHEST IV Amt: 118 ml optiray 320 EXAM: CT Angiography Chest With Intravenous Contrast CLINICAL HISTORY: Reason for exam: concern for PE, Wells score 4, colon cancer. TECHNIQUE: Axial computed tomographic angiography images of the chest with intravenous contrast. CTDI is 15 mGy and DLP is 408 mGy-cm. Automated exposure control was utilized for the study. A dose lowering technique was utilized adhering to the principles of ALARA. MIP reconstructed images were created and reviewed. COMPARISON: No relevant prior studies available. FINDINGS: A Port-A-Cath is noted with its tip in the right atrium. Pulmonary arteries: No pulmonary embolism is seen. Aorta: There are atherosclerotic changes. No thoracic aortic aneurysm or dissection. Lungs: There are emphysematous changes.. There are mild patchy areas of infiltrate and/or atelectasis.. There is a calcifications on the left lung. Pleural space: No significant effusion. No pneumothorax. Heart: The heart is not enlarged but contains coronary artery calcifications.. Bones/joints: There are degenerative changes in the spine.. Soft tissues: Unremarkable. Lymph nodes: There are small mediastinal lymph nodes.. IMPRESSION: No pulmonary embolism is seen. There are emphysematous changes.. There are mild patchy areas of infiltrate and/or atelectasis.. There is evidence for old granulomatous disease. Electronically signed by: Rasheed Coley MD 06/04/24 01:26 AM
--- OUTSIDE RECORDS SUMMARY | 2024-06-04 04:04 | External Medical Summary | Summary of Care ---
Author Name Unknown Organization [facility] Address [address] [place] [address] Phone [phone] Care Team Providers Care Portable Power Tool Repairer Name Role Phone Lina Can MD Primary Care Prov ider Reason for Visit * Reason Comments Chemotherapy Zirabev * Episode Based Medications (Routine) - Authorized Specialty Diagnoses / Procedures Referred By Contac t Referred To Contact Diagnoses Encounter for antineoplastic chemotherapy Malignant neoplasm of sigmoid colon (HCC) Procedures CO INJ., ZIRABEV, 10 MG Heriberto Wiley MD [address] [place] [id number] Phone: tel: fax: Hematology/Oncology Treatment, [address] [address] Phone: tel: fax: Referral ID Status Reason Start Date Expiration Date V isits Requested Visits Authorized [id number] Authorized 04/18/2024 04/09/2099 [id number] Encounter Details Date Type Department Care Team (Latest Contact Info) Description 04/22/2024 1:15 PM EST Hem/Onc Treatment Hematology/Oncolog y Treatment, [address] [phone] Nasreen Chair [address] Hem On[address] [place] [address] Encounter for antineoplastic chemotherapy*; Malignant neoplasm of sigmoid colon (HCC); Metastasis to bone (HCC) Allergies Active Allergy Reactions Criticality Noted Date Comments Amoxicillin-Pot Clavulanate Nausea/vomiting 07/12/2022 GI upset Doxycycline Nausea/vomiting 07/12/2022 GI upset Oxaliplatin Flushing High 07/27/2023 Shortness of breath Metoclopramide Hives 08/10/2022 documented as of this encounter (statuses as of 05/22/2024) Medications Acetaminophen 500 MG Oral Tablet (Tylenol [...] morning. 90 Tablet 1 02/19/20 24 Active Potassium Chloride ER 10 MEQ [...] 1 12/18/19 24 025 Discontin ued(Refil l) Eliquis 5 MG Oral Tablet Take 1 Tablet by mouth in the morning and 1 Tablet before bedtime. 60 Tablet 11 02/26/20 24 025 Discontin ued(Refil l) oxyCODONE HCl 5 MG Oral Tablet (Oxy IR)Indications:M alignant neoplasm of sigmoid colon (HCC),Metastasis to bone (HCC) Take 1 Tablet by mouth every 4 hours as needed for Pain, Moderate. 60 Tablet 04/15/19 25 025 Discontin ued(Refil l) documented as of this encounter (statuses as of 05/22/2024) Active Problems Problem Noted Date Diagnosed Date [...] as of this encounter (statuses as of 05/22/2024) Immunizations No known immunizationsdocumented as of this [...] stable condition. * Mery Luther RN - 04/22/2024 1:46 PM EST Chair 11 Chemotherapy/Immunotherapy agents: ZIRABEV Consent for chemotherapy drug treatment complete, [...] Upcoming Encounters Date Type Department Care Team (Latest Contact Info) Description 05/27/2024 9:45 AM EST Pharmacy Pharmacy Hematology Oncology [address] [address] [facility] Hem/[place]c [facility] [place] [address] Malignant neoplasm of sigmoid colon (HCC)* 05/30/2024 9:00 AM EST Telemedicine Palliative Medicine, [address] [phone] Alisia Loo CRNP [address] [place] [address] 06/03/2024 10:00 AM EST Laboratory Laboratory [address] [place] [phone] Nasreen, Lab [facility] [address] [facility] [place] [address] 06/03/2024 11:00 AM EST Office Visit Hematology/Oncology [facility] [address] [place] [phone] Alisia Birmingham CRNP [address] [place] [address] 06/03/2024 11:30 AM EST Hem/Onc Treatment Hematology[address]cology [address] [phone] Nasreen, Chair 3 Hem Onc Scen[facility] [address] 06/10/2024 9:45 AM EST Pharmacy Pharmacy Hematology Oncology [facility] [address] [place] [address] [facility] Hem/Onc [address] [place] [address] 07/19/2024 11:30 AM EDT Office Visit Cardiology, [facility] [address] [place] [address] Ciro Saini DO [address] [place] [address] 01/08/2025 2:20 PM EDT Office Visit Family Medicine [address] [phone] Lina Can MD [address] [place] [address] [place] [address] 02/03/2025 1:00 PM EDT Office Visit Gynecology/[facility] [address] [place] [address] Nelli Farrell CRNP [address] [place] [address] Health Maintenance Due Date Last Done Comments [...] this encounter Medical Devices Implanted Type Area Bundle Wrapper Device Identifier Shelf Expiration Date Model / Serial / Lot Power Port 8fr Sngl Lumen Plas - [id number] Implanted:Qty : 1 on 01/05/2023 by Jai Malcolm Jr., MD at OR [facility] Right: Chest CR BARD : PERIPHERAL VASCULAR [id number] 07/08/2024 [id number] / / [id number] documented as of this encounter Procedures Procedure Name Priority Date/Time Associated Diagnosis Comments URINALYSIS, REFLEX TO MICROSCOPIC STAT 04/22/2024 1:09 PM EST Malignant neoplasm of sigmoid colon (HCC) Metastasis to bone (HCC) documented in this encounter Results * (ABNORMAL) URINALYSIS, REFLEX TO MICROSCOPIC (04/22/2024 1:09 PM EST) Color, Urine Yellow 04/22/2024 1:42 PM EST [facility]02 Clarity, Urine Clear 04/22/2024 1:42 PM EST [facility] Glucose, Urine Negative mg/dL 04/22/2024 1:42 PM EST [facility]02 Bilirubin, Urine Small 04/22/2024 1:42 PM EST [facility] Ketone, Urine Trace mg/dL 04/22/2024 1:42 PM EST [facility] Specific [place], Urine 1.020 1.003 - 1.030 04/22/2024 1:42 PM EST [address] Blood, Urine Negative 04/22/2024 1:42 PM EST [address] pH, Urine 5.5 5.0 - 7.5 Units 04/22/2024 1:42 PM EST [address] Protein, Urine 30 mg/dL 04/22/2024 1:42 PM EST [address] Urobilinogen, Urine 1.0 mg/dL 04/22/2024 1:[address] Nitrite, Urine Negative Negative 04/22/2024 1:42 PM EST [address] Esterase, Urine Small(A) Negative 04/22/2024 1:[address] RBC, Urine 0-2 0 - 2 /HPF 04/22/2024 1:42 PM EST [address] WBC, Urine 6-9(A) 0 - 2 /HPF 04/22/2024 1:[address] Bacteria, Urine 0-25 0 - 25 /HPF 04/22/2024 1:[address] Hyaline, Cast, Urine 1-4(A) None /LPF 04/22/2024 1:[address] Urine Urine specimen obtained by clean catch procedure / Unknown Non-blood Collection / Unknown 04/22/2024 1:09 PM EST 04/22/2024 1:17 PM EST Chandni Almonte MD LAB URINE ORDERABLES Fin al Result [address] [place] [address] documented in this encounter Visit Diagnoses Diagnosis [...] PM EST 120 mg Arm Left Upper NSS infusion Intravenous, at 50 mL/hr, PRN, Starting on Mon04/22/24 at 1500, Until Mon04/22/24 at 2025, Maintenance lineIndications:Malignan t neoplasm of sigmoid colon (HCC),Encounter for antineoplastic chemotherapy Start Infusion 04/22/2024 2:04 PM EST 50 mL/hr documented in this encounter Advance Directives [...] Power of Attor johann? No Care Teams Portable Power Tool Repairer Relationship Specialty Start Date End Date Lina Can MD [address] [place] [address] [place] [id number] PCP - General Family Medicine 08/06/22 documented as of this encounter
--- OUTSIDE RECORDS SUMMARY | 2024-06-04 04:04 | External Medical Summary | Summary of Care ---
Author Name Unknown Organization [facility] Address [address] [place] [address] Phone [phone] Care Team Providers Care Microstrategy Reports Developer Name Role Phone Lina Can MD Primary Care Prov ider Reason for Visit * Reason Comments Chemotherapy Zirabev * Episode Based Medications (Routine) - Authorized Specialty Diagnoses / Procedures Referred By Contac t Referred To Contact Diagnoses Encounter for antineoplastic chemotherapy Malignant neoplasm of sigmoid colon (HCC) Procedures MA INJ., ZIRABEV, 10 MG Heriberto Wiley MD [address] [place] [address] Phone: tel: fax: Hematology/Oncology Treatment, [address] [address] Phone: tel: fax: Referral ID Status Reason Start Date Expiration Date V isits Requested Visits Authorized [id number] Authorized 04/18/2024 04/09/[phone] Encounter Details Date Type Department Care Team (Latest Contact Info) Description 04/22/2024 1:15 PM EST Hem/Onc Treatment Hematology/Oncolog y Treatment, [address] [address] Nasreen Chair 4 Hem On[address] [place] [address] Encounter for antineoplastic chemotherapy*; Malignant neoplasm [...] 9:45 AM EST Pharmacy Pharmacy Hematology Oncology [address] [address] [facility], [facility] Hem/[place]c [facility] [place] [address] Malignant neoplasm of sigmoid colon (HCC)* 05/30/2024 9:00 AM EST Telemedicine Palliative Medicine, [address] [address] Alisia Loo CRNP [address] [place] [address] 06/03/2024 10:00 AM EST Laboratory Laboratory [address] [place] [phone] Nasreen, Lab [facility] 200 [facility] [place] [address] 06/03/2024 11:00 AM EST Office Visit Hematology/Oncology [facility] [address] [place] [phone] Alisia Birmingham CRNP [address] [place] [address] 06/03/2024 11:30 AM EST Hem/Onc Treatment Hematology/Oncology Treatment, [address] [phone] Nasreen, Chair 3 Hem Onc Scenery 200 [facility] [address] 06/10/2024 9:45 AM EST Pharmacy Pharmacy Hematology Oncology [facility] [address] [place] [address] [facility], [facility] Hem/Onc [address] [place] [address] 07/19/2024 11:30 AM EDT Office Visit Cardiology, [facility] [address] [place] [address] Ciro Saini DO [address] [place] [address] 01/08/2025 2:20 PM EDT Office Visit Family Medicine [address] [address] Lina Can MD [address] [place] [address] [place] [address] 02/03/2025 1:00 PM EDT Office Visit Gynecology/Obstetri [facility] [address] [place] [address] Nelli Farrell CRNP [address] [place] [address] Health Maintenance Due Date Last Done Comments [...] this encounter Medical Devices Implanted Type Area Risk Control Manager Device Identifier Shelf Expiration Date Model / Serial / Lot Power Port 8fr Sngl Lumen Plas - [id number] Implanted:Qty : 1 on 01/05/2023 by Jai Malcolm Jr., MD at OR [facility] Right: Chest CR BARD : PERIPHERAL VASCULAR [id number] 07/08/2024 [id number] / / [id number] documented as of this encounter Procedures Procedure Name Priority Date/Time Associated Diagnosis Comments URINALYSIS, REFLEX TO MICROSCOPIC STAT 04/22/2024 1:09 PM EST Malignant neoplasm of sigmoid colon (HCC) Metastasis to bone (HCC) documented in this encounter Results * (ABNORMAL) URINALYSIS, REFLEX TO MICROSCOPIC (04/22/2024 1:09 PM EST) Color, Urine Yellow 04/22/2024 1:42 PM EST [facility] 56[facility]02 Clarity, Urine Clear 04/22/2024 1:42 PM EST [facility] 56[facility]02 Glucose, Urine Negative mg/dL 04/22/2024 1:42 PM EST [facility] 56[facility]02 Bilirubin, Urine Small 04/22/2024 1:42 PM EST [facility] 56[facility]02 Ketone, Urine Trace mg/dL 04/22/2024 1:42 PM EST [facility] 56[facility]02 Specific Lapel, Urine 1.020 1.003 - 1.030 04/22/2024 1:42 PM EST [address] Blood, Urine Negative 04/22/2024 1:42 PM EST [address] pH, Urine 5.5 5.0 - 7.5 Units 04/22/2024 1:42 PM EST [address] Protein, Urine 30 mg/dL 04/22/2024 1:42 PM EST [address] Urobilinogen, Urine 1.0 mg/dL 04/22/2024 1:[address] Nitrite, Urine Negative Negative 04/22/2024 1:42 PM EST [address] Esterase, Urine Small(A) Negative 04/22/2024 1:[address] RBC, Urine 0-2 0 - 2 /HPF 04/22/2024 1:42 PM EST [address] WBC, Urine 6-9(A) 0 - 2 /HPF 04/22/2024 1:[address] Bacteria, Urine 0-25 0 - 25 /HPF 04/22/2024 1:[address] Hyaline, Cast, Urine 1-4(A) None /LPF 04/22/2024 1:[address] Urine Urine specimen obtained by clean catch procedure / Unknown Non-blood Collection / Unknown 04/22/2024 1:09 PM EST 04/22/2024 1:17 PM EST Chandni Almonte MD LAB URINE ORDERABLES Fin al Result [address] [place] [address] documented in this encounter Visit Diagnoses Diagnosis [...] Power of Attor johann? No Care Teams Microstrategy Reports Developer Relationship Specialty Start Date End Date Lina Can MD [address] [place] [address] [place] [phone] PCP - General Family Medicine 08/06/22 documented as of this encounter
--- OUTSIDE RECORDS SUMMARY | 2024-06-04 04:04 | External Medical Summary | Summary of Care ---
Author Name Unknown Organization [facility] Address [address] [place] [address] Phone [phone] Care Team Providers Care Regrinder Name Role Phone Lina Can MD Primary Care Prov ider Encounter Details Date Type Department Care Team (Late st Contact Info) Description 05/20/2024 Orders Only Hematology/Oncology Treatment, [place] [address] [place] [address] Chandni Almonte MD 200 [place] [address] Allergies Active Allergy Reactions Criticality Noted Date Comments Amoxicillin-Pot Clavulanate Nausea/vomiting 07/12/2022 GI upset Doxycycline Nausea/vomiting 07/12/2022 GI upset Oxaliplatin Flushing High 07/27/2023 Shortness of breath Metoclopramide Hives 08/10/2022 documented as of this encounter (statuses as of 05/20/2024) Medications Acetaminophen 500 MG Oral Tablet (Tylenol [...] the morning. 90 Tablet 1 4 Active Potassium Chloride ER 10 MEQ Oral Tablet Extended ReleaseIndication s:Malignant neoplasm of sigmoid colon (HCC) Take 1 Tablet by mouth in the morning. 30 Tablet 1 4 Active traMADol HCl 50 MG Oral Tablet (Ultram)Indicatio ns:Malignant neoplasm of sigmoid colon (HCC) Take 1 Tablet by mouth every 6 hours as needed for Pain, Moderate. 30 Tablet 5 Active Morphine Sulfate ER 15 MG Oral Tablet Extended Release (Ms Contin)Indication s:Malignant neoplasm of sigmoid colon (HCC),Metastasis to bone (HCC) Take 1 Tablet by mouth in the morning and 1 Tablet before bedtime. 60 Tablet 5 Active Trifluridine-Tipi racil 15-6.14 MG Oral Tablet (Lonsurf)Indicati ons:Malignant neoplasm of sigmoid colon (HCC) Take 2 tablets (30 mg) by mouth in the morning and 2 tablets (30 mg) before bedtime on days 1-5 and 8-12 of 28-day cycle. Take within 1 hour of meal. 40 Tablet 5 05/03/2024 1:01 PM EST 5 Active Trifluridine-Tipi racil 20-8.19 MG Oral Tablet (Lonsurf)Indicati ons:Malignant neoplasm of sigmoid colon (HCC) Take 1 tablet (20 mg) by mouth in the morning and 1 tablet (20 mg) before bedtime on days 1-5 and 8-12 of 28-day cycle. Take within 1 hour of meal. 20 Tablet 5 05/03/2024 1:01 PM EST 5 Active oxyCODONE HCl 5 MG Oral Tablet (Oxy IR)Indications:Ma lignant neoplasm of sigmoid colon (HCC),Metastasis to bone (HCC) Take 1 Tablet by mouth every 4 hours as needed for Pain, Moderate. Continued script 60 Tablet 5 Active Ondansetron HCl 8 MG Oral Tablet (Zofran)Indicatio ns:Malignant neoplasm of sigmoid colon (HCC) Take 1 Tablet by mouth every 8 hours as needed for Nausea. 30 Tablet 1 5 Active Amiodarone HCl 200 MG Oral Tablet (Cordarone) Take 1 Tablet by mouth 2 times a day with morning and evening meals. Active Furosemide 20 MG Oral Tablet (Lasix) Take 1 Tablet by mouth in the morning. Active Magnesium Oxide -Mg Supplement 500 MG Oral Capsule Take 1 Capsule by mouth in the morning. Active Silver sulfADIAZINE 1 % External Cream (Silvadene)Indica tions:Wound of sacral region, initial encounter Apply topically to affected area daily. Apply to burn 50 g 1 5 Active Eliquis 5 MG Oral TabletIndications :Malignant neoplasm of sigmoid colon (HCC),Metastasis to bone (HCC) Take 1 Tablet by mouth in the morning and 1 Tablet before bedtime. 60 Tablet 11 Active documented as of this encounter (statuses as of 05/20/2024) Active Problems Problem Noted Date Diagnosed Date Controlled substance agreement signed 05/15/2024 Metastasis to bone 04/19/2024 New onset atrial [...] as of this encounter (statuses as of 05/20/2024) Immunizations No known immunizationsdocumented as of this [...] 9:45 AM EST Pharmacy Pharmacy Hematology Oncology [place] [address] [place] [address] [facility] Hem/Onc [address] [place] [address] Malignant neoplasm of sigmoid colon (HCC)* 05/30/2024 9:00 AM EST Telemedicine Palliative Medicine, [place] [address] [address] [place] [address] Alisia Loo CRNP [address] [place] [address] 06/03/2024 10:00 AM EST Laboratory Laboratory [facility] [address] [place] [address] Nasreen, Lab Scenery [address] [place] [address] 06/03/2024 11:00 AM EST Office Visit Hematology/Oncology [facility] [address] [place] [address] Alisia Birmingham CRNP [address] [place] [address] 06/03/2024 11:30 AM EST Hem[facility] [address] [place], [place] [phone] Nasreen, Chair 3 Hem Onc Scenery [address] [place] [address] 06/10/2024 9:45 AM EST Pharmacy Pharmacy Hematology Oncology [facility] [address] [place] [address] [facility] Hem/Onc [address] [place] [address] 07/19/2024 11:30 AM EDT Office Visit Cardiology, [facility] [address] [place] [address] Ciro Siani, [address] [place] [address] 01/08/2025 2:20 PM EDT Office Visit Family Medicine [address] [place] [phone] Lina Can MD [address] [place] [address] [place] [address] 02/03/2025 1:00 PM EDT Office Visit Gynecology/Obstetri Jim Londonos [address] [place] [address] [place], SANDRA Murillo [address] [place] [address] Health Maintenance Due Date Last Done Comments [...] this encounter Medical Devices Implanted Type Area Rn Dermatology Device Identifier Shelf Expiration Date Model / Serial / Lot Power Port 8fr Sngl Lumen Plas - [id number] Implanted:Qty : 1 on 01/05/2023 by Jai Malcolm Jr., MD at OR [facility] Right: Chest CR BARD : PERIPHERAL VASCULAR [id number] 07/08/2024 [id number] / / [id number] documented as of this encounter Advance Directives [...] Power of Attor johann? No Care Teams Regrinder Relationship Specialty Start Date End Date Lina Can MD [address] [place] [address] [place] [phone] PCP - General Family Medicine 08/06/22 documented as of this encounter
--- OUTSIDE RECORDS SUMMARY | 2024-06-04 04:04 | External Medical Summary | Summary of Care ---
Author Name Unknown Organization [facility] Address [address] [place] [address] Phone [phone] Care Team Providers Care Machine Shop Repair Technician Name Role Phone Lina Can MD Primary Care Prov ider Reason for Visit * Reason Onset Date Comments Advice 05/31/2024 Encounter Details Date Type Department Care Team (Late st Contact Info) Description 05/31/2024 Telephone Hematology/Oncology [facility] [address] [place] [address] Services, Scheduling [address] [place] [address] Advice Allergies Active Allergy Reactions Criticality Noted Date Comments Amoxicillin-Pot Clavulanate Nausea/vomiting 07/12/2022 GI upset Doxycycline Nausea/vomiting 07/12/2022 GI upset Oxaliplatin Flushing High 07/27/2023 Shortness of breath Metoclopramide Hives 08/10/2022 documented as of this encounter (statuses as of 05/31/2024) Medications Acetaminophen 500 MG Oral Tablet (Tylenol [...] for Pain, Moderate. 30 Tablet 5 Active Trifluridine-Tipi racil 15-6.14 MG [...] Active Ondansetron HCl 8 MG Oral Tablet (Zofran)Naeo ns:Malignant neoplasm of sigmoid colon (HCC) Take 1 Tablet by mouth every 8 hours as needed for Nausea. 30 Tablet 1 5 Active Amiodarone HCl 200 MG Oral Tablet (Cordarone) Take 1 Tablet by mouth 2 times a day with morning and evening meals. 5 Active Furosemide 20 MG Oral Tablet (Lasix) Take 1 Tablet by mouth in the morning. 5 Active Magnesium Oxide -Mg Supplement 500 MG Oral Capsule Take 1 Capsule by mouth in the morning. 5 Active Silver sulfADIAZINE 1 % External Cream (Silvadene)Indica tions:Wound of sacral region, initial encounter Apply topically to affected area daily. Apply to burn 50 g 1 5 Active Eliquis 5 MG Oral TabletIndications :Malignant neoplasm of sigmoid colon (HCC),Metastasis to bone (HCC) Take 1 Tablet by mouth in the morning and 1 Tablet before bedtime. 60 Tablet 11 5 Active Morphine Sulfate ER 15 MG Oral Tablet Extended Release (Ms Contin)Indication s:Malignant neoplasm of sigmoid colon (HCC),Metastasis to bone (HCC) Take 1 Tablet by mouth in the morning and 1 Tablet before bedtime. 60 Tablet 5 Active documented as of this encounter (statuses as of 05/31/2024) Active Problems Problem Noted Date Diagnosed Date [...] as of this encounter (statuses as of 05/31/2024) Immunizations No known immunizationsdocumented as of this [...] Telephone Encounter - Glo Drake OSA - 05/31/2024 1:18 PM EST Pt is rescheduled and is aware * Telephone Encounter - Tereza Gray RN - 05/31/2024 12:37 PM EST Per rad/onc, last day of radiation is 06/07. Scheduling: ok to reschedule labs/ follow up/ treatment to after this date. Thanks! * Telephone Encounter - Vanda Rushing OSA - 05/31/2024 12:02 PM EST Pt calling in wanting to let the office know she needs to cancel her appointments on Monday until further notice as she is still under going radiation treatment at [facility]. Unless Dr Almonte doesn't want her to cancel. documented in this encounter Plan of Treatment Upcoming Encounters Date Type Department Care Team (Late st Contact Info) Description 06/10/2024 9:45 AM EST Pharmacy Pharmacy Hematology Oncology [facility] [address] [place] [address] [place] [place] [facility] Hem/Onc [address] [place] [address] 06/11/2024 12:00 PM EST Laboratory Laboratory [facility] Nasreen [place] [address] [place] [phone] Nasreen, Lab Scenery [address] [place] [address] 06/11/2024 12:30 PM EST Office Visit Hematology/Oncology [facility] Nasreen [place] [address] [place] [phone] Chandni Almonte MD [address] [place] [address] 06/11/2024 1:00 PM EST Hem/Onc Treatment Hematology/Oncology Treatment, [place] [address] [place] [phone] Nasreen, Chair 4 Hem Onc Scenery [address] [place] [address] 07/01/2024 1:00 PM EDT Telemedicine Palliative Medicine, [facility] 400 [facility] 5th [place] [address] Bianca Ruiz MD 400 [facility] [place] [address] 07/19/2024 11:30 AM EDT Office Visit Cardiology, [facility] [address] [place] [address] Ciro Saini DO [address] [place] [address] 01/08/2025 2:20 PM EDT Office Visit Family Medicine [address] [place] [phone] Lina Can MD [address] [place] [address] [place] [address] 02/03/2025 1:00 PM EDT Office Visit Gynecology/Obstetrics [facility] [address] [place] [address] eNlli Farrell CRNP [address] [place] [address] Health Maintenance Due Date Last Done Comments [...] on patient's age to complete this topic Meningitis B Vaccine (Bexsero/Trumemba) Aged Out No longer eligible based on patient's age to complete this topic documented as of this encounter Medical Devices Implanted Type Area School Psychologist Assistant Device Identifier Shelf Expiration Date Model / Serial / Lot Power Port 8fr Sngl Lumen Plas - [id number] Implanted:Qty : 1 on 01/05/2023 by Jia Malcolm Jr., MD at [facility] Right: Chest CR BARD : PERIPHERAL VASCULAR [id number] 07/08/2024 [id number] / / [id number] documented as of this encounter Advance Directives [...] of Attor johann? No Care Teams Machine Shop Repair Technician Relationship Specialty Start Date End Date Lina Can MD [address] [place] [address] [place] [phone] PCP - General Family Medicine 08/06/22 documented as of this encounter
--- OUTSIDE RECORDS SUMMARY | 2024-06-04 04:04 | External Medical Summary | Summary of Care ---
Author Name Unknown Organization [facility] Address [address] [place] [address] Phone [phone] Care Team Providers Care Smoke Jumper Name Role Phone Lina Can MD Primary Care Prov ider Reason for Visit * Reason Comments Follow Up Pain Encounter Details Date Type Department Care Team (Late st Contact Info) Description 05/30/2024 9:00 AM EST Telemedicine Palliative Medicine, [facility] [address] [place] [phone] Alisia Loo CRNP [address] [place] [address] Cancer related pain*; Malignant neoplasm of sigmoid colon (HCC); Palliative care encounter Allergies Active Allergy Reactions Criticality Noted Date Comments Amoxicillin-Pot Clavulanate Nausea/vomiting 07/12/2022 GI upset Doxycycline Nausea/vomiting 07/12/2022 GI upset Oxaliplatin Flushing High 07/27/2023 Shortness of breath Metoclopramide Hives 08/10/2022 documented as of this encounter (statuses as of 05/30/2024) Medications Acetaminophen 500 MG Oral Tablet (Tylenol [...] mg) before bedtime on days 1-5 and -12 of 28-day cycle. Take within 1 hour [...] as of this encounter (statuses as of 05/30/2024) Active Problems Problem Noted Date Diagnosed Date [...] as of this encounter (statuses as of 05/30/2024) Immunizations No known immunizationsdocumented as of this [...] Progress Notes * Alisia Loo CRNP - 05/30/2024 9:00 AM EST Palliative Medicine Outpatient Progress Note IN HOME TELEMEDICINE VISIT [facility] [address] [place] [address] Name: Nyasia Hdez Date: 05/30/2024 I was in a hospital or clinic location. After connecting through televideo, patient was verified with two unique identifiers. Patient (or authorized legal quality control representative) was then informed that this was a Telemedicine visit and being conducted confidentially over secure lines. Methods to assure confidentiality were taken. Patient acknowledged consent and understanding of privacy and security of the Telemedicine visit. The patient agreed to participate. 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 At last visit with Dr. Ruiz on 05/15/24, her pain was managed on MS Contin 15mg BID and she had a newwound on her bottom. She was ordered home health. Pain is well-controlled. She's having some constipation on/off. Palliative symptoms: Pain: Located at: L hip pain, bilateral shoulders Currently taking: MS Contin 15mg BID. Taking Tylenol 500mg 2-3x/day. Quality:aching Severity: 5/10 Timing: constant Context: metastatic cancer Nausea/Vomiting: no Appetite: ok, gained 2lb. Constipation: on/off. Taking senna every day, milk of mag as needed. Has miralax at home, she will start taking this daily. Confusion: no Sleep issues: no Dyspnea: no Mood issues: no Falls: no Other: no Examination: No vital signs as this is a telemedicine encounter Constitutional: no acute distress, chronically ill HENT: normocephalic, atraumatic. Eyes: anicteric, sclera and conjunctiva normal. Neck: no stridor Chest: normal respiratory effort Abdominal: nondistended Extremities: no edema Data Review: External notes reviewed: - Reviewed notes from family medicine 05/17/24 - plan to f/u in 3 months. Lab / Imaging Results: Latest Reference Range & Units 05/20/24 09:48 Albumin 3.8 - 5.0 g/dL 3.6 (L) AST 10 - 35 U/L 38 (H) ALT 10 - 35 U/L 23 Alkaline Phosphatase 35 - 130 U/L 213 (H) (L): Data is abnormally low (H): Data is abnormally high - mildly elevated AST, lower alk phos, albumin is stable. ASSESSMENT/PLAN: Nyasia Hdez is a 69 year old female seen in follow-up for goals of care and pain and symptom management. Cancer related pain Continue MS Contin 15mg BID. Okay to use Tylenol PRN for breakthrough pain - this is working well for her. Metastatic sigmoid adenocarcinoma Continue XRT at [facility]. Follow with Dr. Wiley. Opioid induced constipation Continue senna daily. Can increase to 2-4 tabs daily. Start miralax daily. Okay to use Milk of Mag as needed. Goals of care Continue cancer directed therapy. Follow up in 4-6 weeks by video. Call sooner if needed. I spent a total of 36 minutes on the date of service in preparation, delivery, and documentation ofthe care provided to Nyasia Hedz excluding any time spent in the performance of separately billed services. SANDRA Rosales nolvia Ashlie Palliative Medicine [phone] documented in this encounter Plan of Treatment Upcoming Encounters Date Type Department Care Team (Late st Contact Info) Description 06/03/2024 10:00 AM EST Laboratory Laboratory [address] [place] [phone] Nasreen, Lab [address] [place] [address] 06/03/2024 11:00 AM EST Office Visit Hematology/Oncology [facility] 200 [facility] [place] [phone] Alisia Birmingham CRNP [address] [place] [address] [place] [address] 06/03/2024 11:30 AM EST Hem/Onc Treatment Hematology/Oncology Treatment, [place] 200 [facility] [place] [address] Nasreen, Chair 3 Hem Onc Scenery [address] [place] [address] 06/10/2024 9:45 AM EST Pharmacy Pharmacy Hematology Oncology [facility] [address] [place] [address] [facility] Hem/Onc [address] [place] [address] 07/01/2024 1:00 PM EDT Telemedicine Palliative Medicine, [facility] 400 [facility] 5th [place] [address] Bianca Ruiz MD [address] [place] [address] 07/19/2024 11:30 AM EDT Office Visit Cardiology, [facility] [address] [place] [address] Ciro Saini DO [address] [place] [address] 01/08/2025 2:20 PM EDT Office Visit Family Medicine [address] [phone] Lina Can MD [address] [place] [address] [place] [address] 02/03/2025 1:00 PM EDT Office Visit Gynecology/Obstetrics [facility] [address] [place] [address] Nelli Farrell CRNP [address] [place] [address] Health Maintenance Due Date Last Done Comments [...] encounter Medical Devices Implanted Type Area Business Management Professor Device Identifier Shelf Expiration Date Model / Serial / Lot Power Port 8fr Sngl Lumen Plas - [id number] Implanted:Qty : 1 on 01/05/2023 by Jai Malcolm Jr., MD at [facility] Right: Chest CR BARD : PERIPHERAL VASCULAR [id number] 07/08/2024 [id number] / / [id number] documented as of this encounter Visit Diagnoses Diagnosis Cancer related pain- Primary Neoplasm related pain (acute) (chronic) Malignant neoplasm of sigmoid colon (HCC) Malignant neoplasm of sigmoid colon Palliative care encounter Encounter for palliative care [...] Power of Attor johann? No Care Teams Smoke Jumper Relationship Specialty Start Date End Date Lina Can MD [address] [place] [address] [place] [phone] PCP - General Family Medicine 08/06/22 documented as of this encounter
--- OUTSIDE RECORDS SUMMARY | 2024-06-04 04:04 | External Medical Summary | Summary of Care ---
Author Name Unknown Organization [facility] Address [address] [place] [address] Phone [phone] Care Team Providers Care Apple Press Operator Name Role Phone Lina Can MD Primary Care Prov ider Reason for Visit * Reason Onset Date Comments Advice 05/22/2024 Encounter Details Date Type Department Care Team (Late st Contact Info) Description 05/22/2024 Telephone Family [address] [phone] Lina Can MD [address] [place] [address] [place] [phone] Advice Allergies Active Allergy Reactions Criticality Noted Date Comments Amoxicillin-Pot Clavulanate Nausea/vomiting 07/12/2022 GI upset Doxycycline Nausea/vomiting 07/12/2022 GI upset Oxaliplatin Flushing High 07/27/2023 Shortness of breath Metoclopramide Hives 08/10/2022 documented as of this encounter (statuses as of 05/27/2024) Medications Acetaminophen 500 MG Oral Tablet (Tylenol [...] for Pain, Moderate. 30 Tablet 5 Active Trifluridine-Tip iracil 15-6.14 MG [...] Active Silver sulfADIAZINE 1 % External Cream (Silvadene)Indic ations:Wound of sacral region, initial encounter Apply topically to affected area daily. Apply to burn 50 g 1 5 Active Eliquis 5 MG Oral TabletIndication s:Malignant neoplasm of sigmoid colon (HCC),Metastasis to bone (HCC) Take 1 Tablet by mouth in the morning and 1 Tablet before bedtime. 60 Tablet 11 5 Active Morphine Sulfate ER 15 MG Oral Tablet Extended Release (Ms Contin)Indicatio ns:Malignant neoplasm of sigmoid colon (HCC),Metastasis to bone (HCC) Take 1 Tablet by mouth in the morning and 1 Tablet before bedtime. 60 Tablet 5 05/24/19 25 Discontin ued(Refil l) documented as of this encounter (statuses as of 05/27/2024) Active Problems Problem Noted Date Diagnosed Date [...] as of this encounter (statuses as of 05/27/2024) Immunizations No known immunizationsdocumented as of this [...] Telephone Encounter - Jacinto Delaney RN - 05/27/2024 8:[address] Almonte "Agree,if problem persist should be evaluated in ED " Called patient this morning, she states she moved her bowels yesterday and they were ok. She deniesany stomach pain, nausea, vomiting. She is eating/drinking ok. She states she typically only moves her bowels once every 3-4 days. Palliative- please follow up with her when you see her on 05/30 regarding constipation likely from pain management. Thanks. * Telephone Encounter - Lina Can MD - 05/24/2024 9:16 AM EST She has sigmoid colon cancer. Risk for obstruction. Is she passing gas? Recommend abdominal Xray to assess for obstruction. Will treat based on results. CC to cancer team. * Telephone Encounter - Isa Mcintosh RN - 05/22/2024 4:18 PM EST Pt has not had a BM x 9 days, but denies any Abd Pain. Using Senna, Miralax and Milk Of Mag )Pt is on controlled meds) * Telephone Encounter - Isa Mcintosh RN - 05/22/2024 3:40 PM EST We need to call pt. when was last BM? Is she using stool softeners? * Telephone Encounter - Sally Villarreal OSA - 05/22/2024 3:30 PM EST Reason for patient's call: Amanda with [facility] calling regarding patient's decreased bowel movements and need for advice. Caller was transferred to N/A at the nurse line. Unable to make contact at dedicated nurse line. Please return call. documented in this encounter Plan of Treatment Upcoming Encounters Date Type Department Care Team (Late st Contact Info) Description 05/30/2024 9:00 AM EST Telemedicine Palliative Medicine, [facility] [address] [facility] [place] [phone] Alisia Loo CRNP [address] [place] [address] 06/03/2024 10:00 AM EST Laboratory Laboratory [facility] [address] [place] [phone] Nasreen, Lab Scenery [address] [place] [address] 06/03/2024 11:00 AM EST Office Visit Hematology/Oncology [facility] [place] [address] [place] [address] Alisia Birmingham CRNP [address] [place] [address] 06/03/2024 11:30 AM EST Hem/Onc Treatment Hematology/Oncology Treatment, [place] [address] [place], [place] [phone] Nasreen, Chair 3 Hem Onc [facility] [address] [place] [address] 06/10/2024 9:45 AM EST Pharmacy Pharmacy Hematology Oncology [facility] [address] [place] [address] [facility], [facility] Hem/Onc [address] [place] [address] 07/19/2024 11:30 AM EDT Office Visit Cardiology, [facility] [address] [place] [address] Ciro Saini, [address] [place] [address] 01/08/2025 2:20 PM EDT Office Visit Family Medicine [address] [place] [phone] Lina Can MD [address] [place] [address] [place] [address] 02/03/2025 1:00 PM EDT Office Visit Gynecology/Obstetrics [facility] [address] [place] [address] [place], SANDRA Murillo [address] [place] [address] Scheduled Orders Name Type Priority Associated Diagnoses Orde r Schedule XR ABDOMEN OBSTRUCT SERIES W CHEST 1 VIEW Medical Imaging Routine Malignant neoplasm of sigmoid colon (HCC) Ordered: 05/24/2024 Health Maintenance Due Date Last Done Comments [...] this encounter Medical Devices Implanted Type Area Fire Captain Marine Device Identifier Shelf Expiration Date Model / Serial / Lot Power Port 8fr Sngl Lumen Plas - [id number] Implanted:Qty : 1 on 01/05/2023 by Jai Malcolm Jr., MD at [facility] Right: Chest CR BARD : PERIPHERAL VASCULAR [id number] 07/08/2024 [id number] / / [id number] documented as of this encounter Visit Diagnoses [...] Power of Attor johann? No Care Teams Apple Press Operator Relationship Specialty Start Date End Date Lina Can MD [address] [place] [address] [place] [phone] PCP - General Family Medicine 08/06/22 documented as of this encounter
--- OUTSIDE RECORDS SUMMARY | 2024-06-04 04:04 | External Medical Summary | Summary of Care ---
Author Name Unknown Organization [facility] Address [address] [place] [address] Phone [phone] Care Team Providers Care Kitchen Hand Name Role Phone Lnia Can MD Primary Care Prov ider Reason for Visit * Reason Onset Date Comments Medication Refill 05/24/2024 Encounter Details Date Type Department Care Team (Late st Contact Info) Description 05/24/2024 Refill Hematology/Oncology [facility] [place] 200 [facility] [place] [address] Chandni Almonte MD 200 [facility] [place] [address] Malignant neoplasm of sigmoid colon (HCC); Metastasis to bone (HCC) Allergies Active Allergy Reactions Criticality Noted Date Comments Amoxicillin-Pot Clavulanate Nausea/vomiting 07/12/2022 GI upset Doxycycline Nausea/vomiting 07/12/2022 GI upset Oxaliplatin Flushing High 07/27/2023 Shortness of breath Metoclopramide Hives 08/10/2022 documented as of this encounter (statuses as of 05/24/2024) Medications Acetaminophen 500 MG Oral Tablet (Tylenol [...] Tablet before bedtime. 60 Tablet 5 Active Morphine Sulfate ER 15 MG Oral Tablet Extended Release (Ms Contin)Indicatio ns:Malignant neoplasm of sigmoid colon (HCC),Metastasis to bone (HCC) Take 1 Tablet by mouth in the morning and 1 Tablet before bedtime. 60 Tablet 5 05/24/19 25 Discontin ued(Refil l) documented as of this encounter (statuses as of 05/24/2024) Active Problems Problem Noted Date Diagnosed Date [...] as of this encounter (statuses as of 05/24/2024) Immunizations No known immunizationsdocumented as of this [...] encounter Miscellaneous Notes * Telephone Encounter - Heriberto Wiley MD - 05/24/2024 5:12 PM EST E-prescribed MS Jose. Heriberto Wiley MD Hem/Onc * Telephone Encounter - Nelli España LPN - 05/24/2024 3:12 PM ESTPending Prescriptions: Disp Refills Morphine Sulfate ER 15 MG Oral Tablet Exte*60 Tab*0 Sig: Take 1 Tablet by mouth in the morning and 1 Tablet before bedtime. * Telephone Encounter - Nelli España LPN - 05/24/2024 3:08 PM EST Refill request for Morphine Sulfate ER 15 mg tab pended below: Last Refill: 04/23/2024 PDMP reviewed per [facility] regulations. Last Script written by Dr. Heriberto Camposrel # of tablets ordered 04/23/2024 Date script written 04/23/2024 Last seen: 05/20/2024 Next Appt.: 06/03/2024 Requesting: Patient * Telephone Encounter - Codi Thakkar PHARM Tech - 05/24/2024 2:03 PM EST Patient states she is completely out of medication and needs it jose. Thank you, Codi Thakkar Log Inspector [facility] 05/24/2024,2:04 PM * Telephone Encounter - Codi Thakkar PHARM Tech - 05/24/2024 2:02 PM EST Patient is up to date for office visits. Pending Prescriptions: Disp Refills Morphine Sulfate ER 15 MG Oral Tablet Ext*60 Tab*0 Sig: Take 1 Tablet by mouth in the morning and 1 Tablet before bedtime. Last Visit: 05/20/2024 (in office), 04/25/2023 (telemedicine) Next Visit: 06/03/2024 If no future appointments scheduled, and last appointment is greater than a year ago, please schedule patient for a follow-up appointment Last date the medication was ordered: 04/23/2024 Pharmacy: [id number] [facility] Is this request for a controlled substance?Yes, and Urine Drug Screen was NOT completed Urine Drug Screen:No results found for this or any previous visit. Patient Phone Numbers Labs: Lab Results Component Value Date/Time CREAT 0.5 05/20/2024 09:48 AM CREAT 0.70 01/10/1997 08:00 AM CREAT 0.7 07/18/1996 11:52 AM POTASSIUM 4.9 05/20/2024 09:48 AM LDL 122 07/12/2022 10:13 AM ALT 23 05/20/2024 09:48 AM documented in this encounter Plan of Treatment Upcoming Encounters Date Type Department Care Team (Latest Contact Info) Description 05/27/2024 9:45 AM EST Pharmacy Pharmacy Hematology Oncology [place] [address] [place] [address] [facility], [facility] Hem/Onc [address] [place] [address] Malignant neoplasm of sigmoid colon (HCC)* 05/30/2024 9:00 AM EST Telemedicine Palliative Medicine, [place] [address] [place] [address] Alisia Schmidt CRNP 400 [facility] [address] 06/03/2024 10:00 AM EST Laboratory Laboratory [facility] [address] [place] [phone] Nasreen, Lab [facility] 200 [facility] [place] [address] 06/03/2024 11:00 AM EST Office Visit Hematology/Oncology [facility] [address] [place] [phone] Alisia Birmingham CRNP [address] [place] [address] 06/03/2024 11:30 AM EST Hem[facility] [address] [facility] [address] Nasreen, Chair 3 Hem Onc [facility] 200 [facility] [place], [place] [address] 06/10/2024 9:45 AM EST Pharmacy Pharmacy Hematology Oncology [facility] [address] [place] [address] [facility], [facility] Hem/Onc [address] [place] [address] 07/19/2024 11:30 AM EDT Office Visit Cardiology, [facility] [address] [place] [address] Ciro Saini, [address] [place] [address] 01/08/2025 2:20 PM EDT Office Visit Family [address] [place] [phone] Lina Can MD [address] [place] [address] [place] [address] 02/03/2025 1:00 PM EDT Office Visit Gynecology/Obstetri karina [facility] [address] [place] [address] [place], SANDRA Murillo [address] [place] [address] Health Maintenance Due Date Last Done Comments [...] this encounter Medical Devices Implanted Type Area Wilton Weaver Device Identifier Shelf Expiration Date Model / Serial / Lot Power Port 8fr Sngl Lumen Plas - [id number] Implanted:Qty : 1 on 01/05/2023 by Jai Malcolm Jr., MD at [facility] Right: Chest CR BARD : PERIPHERAL VASCULAR [id number] 07/08/2024 [id number] / / [id number] documented as of this encounter Visit Diagnoses [...] Power of Attor johann? No Care Teams Kitchen Hand Relationship Specialty Start Date End Date Lina Can MD [address] [place] [address] [place] [address] PCP - General Family Medicine 08/06/22 documented as of this encounter
--- OUTSIDE RECORDS SUMMARY | 2024-06-04 04:04 | External Medical Summary | Summary of Care ---
Author Name Unknown Organization [facility] Address [address] [place] [address] Phone [phone] Care Team Providers Care Commercial Construction Estimator Name Role Phone Lina Can MD Primary Care Prov ider Reason for Visit * Reason Comments Follow Up Pain Encounter Details Date Type Department Care Team (Late st Contact Info) Description 05/30/2024 9:00 AM EST Telemedicine Palliative Medicine, [facility] [address] [place] [phone] Alisia Loo CRNP [address] [place] [address] Cancer related pain*; Malignant neoplasm of sigmoid [...] Outpatient Progress Note IN HOME TELEMEDICINE VISIT [facility], [facility] [address] [place] [id number] Name: Nyasia Hdez Date: 05/30/2024 I was in a hospital or clinic location. After connecting through televideo, patient was verified with two unique identifiers. Patient (or authorized legal senior patient account representative) was then informed that thiswas a Telemedicine visit and being conducted confidentially [...] her. Metastatic sigmoid adenocarcinoma Continue XRT at [facility]. Follow with Dr. Wiley. Opioid induced constipation [...] performance of separately billed services. SANDRA Rosales ramakrishna [facility] Palliative Medicine [phone] documented in this encounter Plan of Treatment Upcoming Encounters Date Type Department Care Team (Late st Contact Info) Description 06/03/2024 10:00 AM EST Laboratory Laboratory [facility] 200 [facility] [place] [address] [place], Lab [address] [facility] [place] [address] 06/03/2024 11:00 AM EST Office Visit Hematology/Oncology [facility] 200 [facility] [place] [address] Alisia Birmingham CRNP [address] [place] [address] [place] [id number] 06/03/2024 11:30 AM EST Hem/Onc Treatment Hematology/Oncology Treatment, [place] 200 [facility] [place] [address] Nasreen, Chair 3 Hem Onc Scenery [address] [place] [address] 06/10/2024 9:45 AM EST Pharmacy Pharmacy Hematology Oncology [facility] [address] [place] [address] [facility] Hem/Onc [address] [place] [address] 07/01/2024 1:00 PM EDT Telemedicine Palliative Medicine, [facility] 400 [facility] 5th [place] [address] Bianca Ruiz MD [address] [place] [address] 07/19/2024 11:30 AM EDT Office Visit Cardiology, [facility] [address] [place] [address] Ciro Saini DO [address] [place] [address] 01/08/2025 2:20 PM EDT Office Visit Family Medicine [address] [phone] Lina Can MD [address] [place] [address] [place] [address] 02/03/2025 1:00 PM EDT Office Visit Gynecology/Obstetrics [facility] [address] [place] [address] Nelli Farrell CRNP [address] [place] [address] Health Maintenance Due Date Last Done Comments [...] encounter Medical Devices Implanted Type Area Nuclear Reactor Operator Device Identifier Shelf Expiration Date Model / Serial / Lot Power Port 8fr Sngl Lumen Plas - [id number] Implanted:Qty : 1 on 01/05/2023 by aJi Malcolm Jr., MD at [facility] Right: Chest CR BARD : PERIPHERAL VASCULAR [id number] 07/08/2024 [id number] / / [id number] documented as of this encounter Visit Diagnoses [...] of Attor johann? No Care Teams Commercial Construction Estimator Relationship Specialty Start Date End Date Lina Can MD [address] [place] [address] [place] Patel [phone] PCP - General Family Medicine 08/06/22 documented as of this encounter
--- OUTSIDE RECORDS SUMMARY | 2024-06-04 04:04 | External Medical Summary | Summary of Care ---
Author Name Unknown Organization [facility] Address [address] [place] [address] Phone [phone] Care Team Providers Care Molder Meat Name Role Phone Lina Can MD Primary Care Prov ider Reason for Visit * Reason Comments Nurse Documentation Delay treatment Encounter Details Date Type Department Care Team (Late st Contact Info) Description 05/20/2024 10:45 AM EST Hem/Onc Treatment Hematology/Oncology Treatment, [address] [phone] Nasreen, Chair [address] [address] Allergies Active Allergy Reactions Criticality Noted Date [...] as needed for Nausea. 30 Tablet 1 Active Amiodarone HCl 200 MG Oral Tablet [...] daily. Apply to burn 50 g 1 Active documented as of this encounter (statuses [...] Nursing Notes * Mery Luther RN - 05/20/2024 12:[address] Almonte, delay treatment for 2 weeks. Pt scheduled. documented in this encounter Plan of Treatment Upcoming Encounters Date Type Department Care Team (Latest Contact Info) Description 05/27/2024 9:45 AM EST Pharmacy Pharmacy Hematology Oncology [address] [place] [address] [facility] Hem/Onc [address] [place] [address] Malignant neoplasm of sigmoid colon (HCC)* 05/30/2024 9:00 AM EST Telemedicine Palliative Medicine, [facility] [address] [place] [address] Alisia Loo CRNP [address] [place] [address] 06/03/2024 10:00 AM EST Laboratory Laboratory [facility] [place] [address] [place] [address] Nasreen, Lab Scenery 200 [facility] [place] [address] 06/03/2024 11:00 AM EST Office Visit Hematology/Oncology [facility] [place] [address] [place] [phone] Alisia Birmingham CRNP [address] [place] [address] 06/03/2024 11:30 AM EST Hem[facility] [address] [place], [place] [address] Nasreen, Chair 3 Hem Onc Scenery 200 [facility] [place] [address] 06/10/2024 9:45 AM EST Pharmacy Pharmacy Hematology Oncology [facility] [address] [place] [address] [facility] Hem/Onc [address] [facility] [place] [address] 07/19/2024 11:30 AM EDT Office Visit Cardiology, [facility] [address] [place] [address] Ciro Saini DO [address] [place] [address] 01/08/2025 2:20 PM EDT Office Visit Family Medicine [address] [place] [phone] Lina Can MD [address] [place] [address] [place] [address] 02/03/2025 1:00 PM EDT Office Visit Gynecology/Obstetri [facility] [address] [place] [address] Nelli Farrell CRNP [address] [place] [address] Health Maintenance Due Date Last Done Comments [...] this encounter Medical Devices Implanted Type Area Panel Edge Painter Device Identifier Shelf Expiration Date Model / Serial / Lot Power Port 8fr Sngl Lumen Plas - [id number] Implanted:Qty : 1 on 01/05/2023 by Jai Malcolm Jr., MD at [facility] Right: Chest CR BARD : PERIPHERAL VASCULAR [id number] 07/08/2024 [id number] / / [id number] documented as of this encounter Advance Directives [...] Power of Attor johann? No Care Teams Molder Meat Relationship Specialty Start Date End Date Lina Can MD [address] [place] [address] [place] [phone] PCP - General Family Medicine 08/06/22 documented as of this encounter
--- OUTSIDE RECORDS SUMMARY | 2024-06-04 04:04 | External Medical Summary | Summary of Care ---
Author Name Unknown Organization [facility] Address [address] [place] [address] Phone [phone] Care Team Providers Care Cheerleading Coach Name Role Phone Lina Can MD Primary Care Prov ider Reason for Visit * Reason Comments Chemotherapy Zirabev * Episode Based Medications (Routine) - Authorized Specialty Diagnoses / Procedures Referred By Contac t Referred To Contact Diagnoses Encounter for antineoplastic chemotherapy Malignant neoplasm of sigmoid colon (HCC) Procedures [place] ZIRABEV, 10 MG Heriberto Wiley MD [address] [place] [phone] Phone: tel: fax: Hematology/Oncology Treatment, [address] [address] Phone: tel: fax: Referral ID Status Reason Start Date Expiration Date V isits Requested Visits Authorized [id number] Authorized 04/18/2024 04/09/[phone] Encounter Details Date Type Department Care Team (Latest Contact Info) Description 04/22/2024 1:15 PM EST Hem/Onc Treatment Hematology/Oncolog y Treatment, [address] [phone] Nasreen Chair 4 Hem Onc [address] [place] [address] Encounter for antineoplastic chemotherapy*; Malignant neoplasm [...] 9:45 AM EST Pharmacy Pharmacy Hematology Oncology [address] [address] [facility] [place] Hem/Onc [facility] [place] [address] Malignant neoplasm of sigmoid colon (HCC)* 05/30/2024 9:00 AM EST Telemedicine Palliative Medicine, [address] [address] Alisia Loo CRNP [address] [place] [address] 06/03/2024 10:00 AM EST Laboratory Laboratory [address] [place] [phone] Nasreen, Lab [facility] 200 [facility] [place] [address] 06/03/2024 11:00 AM EST Office Visit Hematology/Oncology [facility] [address] [place] [phone] Alisia Birmingham CRNP [address] [place] [address] 06/03/2024 11:30 AM EST Hem/Onc Treatment Hematology/Oncology Treatment, [address] [phone] Nasreen, Chair 3 Hem Onc Scenery 200 [facility] [address] 06/10/2024 9:45 AM EST Pharmacy Pharmacy Hematology Oncology [facility] [address] [place] [address] [facility] [place] [facility] Hem/Onc [address] [place] [address] 07/19/2024 11:30 AM EDT Office Visit Cardiology, [facility] [address] [place] [address] Ciro Saini DO [address] [place] [address] 01/08/2025 2:20 PM EDT Office Visit Family Medicine [address] [address] Lina Can MD [address] [place] [address] [place] [address] 02/03/2025 1:00 PM EDT Office Visit Gynecology/Obstetri [facility] [address] [place] [address] Nelli Farrell CRNP [address] [place] [address] Health Maintenance Due Date Last Done Comments [...] encounter Medical Devices Implanted Type Area Food Vendor Device Identifier Shelf Expiration Date Model / Serial / Lot Power Port 8fr Sngl Lumen Plas - [id number] Implanted:Qty : 1 on 01/05/2023 by Jai Malcolm Jr., MD at OR [facility] Right: Chest CR BARD : PERIPHERAL VASCULAR [id number] 07/08/2024 [id number] / / [id number] documented as of this encounter Procedures Procedure Name Priority Date/Time Associated Diagnosis Comments URINALYSIS, REFLEX TO MICROSCOPIC STAT 04/22/2024 1:09 PM EST Malignant neoplasm of sigmoid colon (HCC) Metastasis to bone (HCC) documented in this encounter Results * (ABNORMAL) URINALYSIS, REFLEX TO MICROSCOPIC (04/22/2024 1:09 PM EST) Color, Urine Yellow 04/22/2024 1:42 PM EST [facility]02 Clarity, Urine Clear 04/22/2024 1:42 PM EST [facility] 56[facility]02 Glucose, Urine Negative mg/dL 04/22/2024 1:42 PM EST [facility] 56[facility]02 Bilirubin, Urine Small 04/22/2024 1:42 PM EST [facility] 56[facility]02 Ketone, Urine Trace mg/dL 04/22/2024 1:42 PM EST [facility]02 Specific [place], Urine 1.020 1.003 - 1.030 04/22/2024 1:42 PM EST [address] Blood, Urine Negative 04/22/2024 1:42 PM EST [address] pH, Urine 5.5 5.0 - 7.5 Units 04/22/2024 1:42 PM EST [address] Protein, Urine 30 mg/dL 04/22/2024 1:42 PM EST [address] Urobilinogen, Urine 1.0 mg/dL 04/22/2024 1:[address] Nitrite, Urine Negative Negative 04/22/2024 1:42 PM EST [address] Esterase, Urine Small(A) Negative 04/22/2024 1:[address] RBC, Urine 0-2 0 - 2 /HPF 04/22/2024 1:42 PM EST [address] WBC, Urine 6-9(A) 0 - 2 /HPF 04/22/2024 1:[address] Bacteria, Urine 0-25 0 - 25 /HPF 04/22/2024 1:[address] Hyaline, Cast, Urine 1-4(A) None /LPF 04/22/2024 1:[address] Urine Urine specimen obtained by clean catch procedure / Unknown Non-blood Collection / Unknown 04/22/2024 1:09 PM EST 04/22/2024 1:17 PM EST Chandni Almonte MD LAB URINE ORDERABLES Fin al Result [address] [place] [address] documented in this encounter Visit Diagnoses Diagnosis [...] Power of Attor johann? No Care Teams Cheerleading Coach Relationship Specialty Start Date End Date Lina Can MD [address] [place] [address] [place] [address] PCP - General Family Medicine 08/06/22 documented as of this encounter
--- OUTSIDE RECORDS SUMMARY | 2024-06-04 04:05 | External Medical Summary ---
Author Name Unknown Address Unknown Organization K09:[facility] [place] [address] Laboratory Report Ordering Provider Test Date Status DANNIELLE OLVERA 05/20/2024 09:48:26 Final Observation Date Value Abnormality Reference (Units ) Status WBC, Total 05/20/2024 09:48:26 8.05 4.00-10.8 0 (K/uL) Final RBC 05/20/2024 09:48:26 3.68 3.85-5.15 (M/uL) Final Hemoglobin 05/20/2024 09:48:26 10.6 Below low normal 12 .0-15.3 (g/dL) Final HCT 05/20/2024 09:48:26 35.1 Below low normal 36. 0-45.2 (%) Final MCV 05/20/2024 09:48:26 95.4 81.5-97.5 (fL) Final MCH 05/20/2024 09:48:26 28.8 27.0-34.0 (pg) Final MCHC 05/20/2024 09:48:26 30.2 32.0-36.0 (g/dL) Final RDW 05/20/2024 09:48:26 17.0 11.5-15.5 (%) Final Platelets 05/20/2024 09:48:26 163 140-400 (K /uL) Final MPV 05/20/2024 09:48:26 9.8 6.6-11.1 ( fL) Final Performing Location [facility] [place] [address]
--- OUTSIDE RECORDS SUMMARY | 2024-06-04 04:05 | External Medical Summary | Summary of Care ---
Author Name Unknown Organization [facility] Address [address] [place] [address] Phone [phone] Care Team Providers Care Docking Pilot Name Role Phone Lina Can MD Primary Care Prov ider Reason for Visit * Reason Comments Medication Management Encounter Details Date Type Department Care Team (Late st Contact Info) Description 05/16/2024 9:45 AM [facility] Pharmacy Pharmacy Hematology Oncology [facility] [address] [place] [address] [facility], [facility] Hem/Onc [address] [place], [place] [phone] Malignant neoplasm of sigmoid colon (HCC)* Allergies Active Allergy Reactions Criticality Noted Date Comments Amoxicillin-Pot Clavulanate Nausea/vomiting 07/12/2022 GI upset Doxycycline Nausea/vomiting 07/12/2022 GI upset Oxaliplatin Flushing High 07/27/2023 Shortness of breath Metoclopramide Hives 08/10/2022 documented as of this encounter (statuses as of 05/16/2024) Medications Acetaminophen 500 MG Oral Tablet (Tylenol [...] as of this encounter (statuses as of 05/16/2024) Active Problems Problem Noted Date Diagnosed Date [...] as of this encounter (statuses as of 05/16/2024) Immunizations No known immunizationsdocumented as of this [...] this encounter Progress Notes * Sally Nino, [facility] - 05/16/2024 11:39 AM EST MEDICATION THERAPY MANAGEMENT TRIFLURIDINE/TIPRIACIL TREATMENT PROGRESS NOTE Nyasia Hdez [phone] Patient Phone Numbers [phone] Communication: Chart review Treatment: Medication: Trifluridine/tipiracil (Lonsurf) Indication/Staging/Diagnosis Code: colon cancer / C18.7 Dose Basis: 35mg/m2 (BSA 1.51m2) Dose: 50mg (2-15mg + 1-20 mg tab) BID D1-5 and 8-12 every 28 days Administration: with food Start Date: 05/07/24 Primary Forestry Worker/Oncologist: Dr. Kodak Wiley Additional Therapy: Bevacizumab Supportive Care Meds: Ondansetron Prochlorperazine Prophylactic Meds: none Relevant Chronic Medications: Category Medications Pertinent Notes Antihypertensives Metoprolol ER 25mg daily Amiodarone 200mg BID Furosemide 20mg daily Per PCP Anticoagulation Apixaban 5mg BID Per cardiology Cycle Dates C1 05/07-05/09 C2 TBD Treatment History: Breast Cancer: ~1995: ddAC + Taxol Colon cancer: 01/2023-07/2023: FOLFOX 07/2023; 11/2023-03/2024: FOLFIRI + bevacizumab Treatment Dose Adjustment/Hold History: 05/09/24: held due to SOB, chest tightness, and hospital admission Interval History: Per TE 05/09/24, pt daughter c/o increased SOB and chest tightness with administration. Pt taken to ED due to significant edema Admitted to [facility] 05/09/24-05/12/24 for CHF and a fib and discharged on amiodarone, KCL, mag ox, and furosemide Changes to medication list since last visit? Yes, amiodarone, KCL, mag ox, and furosemide - no DDIs Drug interaction assessment: Treatment plan and current medication list evaluated for drug-drug interactions. No clinically significant drug interaction identified Assessment and Plan: MTM to follow up after OV to assess treatment plan Assessment of compliance: compliant Assessment of adverse effects attributed to drug therapy: N/A Dose adjustment needed based on lab or adverse drug reaction? Yes, HOLD Follow up: 05/20 OV/labs; 05/27 MTM Sally Nino, PharmD, BCOP Clinical Pharmacist, [facility] Oral Chemotherapy [facility] 05/16/2024, 11:46 AM Monitoring Parameters: Estimated CrCl Serum creatinine: 0.4 mg/dL (L) 05/06/24 1032 Estimated creatinine clearance: 48.8 mL/min (A) Hepatitis panel Latest Reference Range [...] 1500 and PLT > 75,000 Pertinent labs: N/A Time Spent on Encounter: 6 - 10 minutes Encounter Group: Oncology Encounter Interventions Item Category: Oral Chemotherapy Trifluridine/Tipricil Problem/Rationale: Safety: Needs additional monitoring - Medication Requires monitoring Pharmacist Intervention(s): Drug Interaction Screen and Medication held Magnitude of Intervention: Monitoring with no interventions (Level 0) documented in this encounter Plan of Treatment Upcoming Encounters Date Type Department Care Team (Late st Contact Info) Description 05/20/2024 9:40 AM EST Laboratory Laboratory [facility] Nas[place] [address] [place] [phone] Nasreen, Lab [address] [place] [address] 05/20/2024 10:15 AM EST Office Visit Hematology/Oncology [facility] Nasreen [place] [address] [place] [phone] Chandni Almonte MD [address] [place] [address] 05/20/2024 10:45 AM EST Hem/Onc Treatment Hematology/Oncology Treatment, [place] [address] [place] [phone] Nasreen, Chair 2 Hem Onc [facility] 200 [facility] [place] [address] 05/27/2024 9:45 AM EST Pharmacy Pharmacy Hematology Oncology [facility] [address] [place] [address] [facility], [facility] Hem/Onc [address] [place] [address] 05/30/2024 9:00 AM EST Telemedicine Palliative Medicine, [facility] [address] [place] [address] Alisia Loo CRNP [address] [place] [address] 07/19/2024 11:30 AM EDT Office Visit Cardiology, [facility] [address] [place] [address] Ciro Saini DO [address] [place] [address] 02/03/2025 1:00 PM EDT Office Visit Gynecology/Obstetrics [facility] [address] [place] [address] Nelli Farrell CRNP [address] [place] [address] Health Maintenance Due Date Last Done Comments [...] this encounter Medical Devices Implanted Type Area Soap Chipper Device Identifier Shelf Expiration Date Model / Serial / Lot Power Port 8fr Sngl Lumen Plas - [id number] Implanted:Qty : 1 on 01/05/2023 by Jai Malcolm Jr., MD at [facility] Right: Chest CR BARD : PERIPHERAL VASCULAR [id number] 07/08/2024 [id number] / / [id number] documented as of this encounter Visit Diagnoses [...] Power of Attor johann? No Care Teams Docking Pilot Relationship Specialty Start Date End Date Lina Can MD [address] [place] [address] [place] [phone] PCP - General Family Medicine 08/06/22 documented as of this encounter
--- OUTSIDE RECORDS SUMMARY | 2024-06-04 04:05 | External Medical Summary | Summary of Care ---
Author Name Unknown Organization [facility] Address [address] [place] [address] Phone [phone] Care Team Providers Care Rail Director Name Role Phone Lina Can MD Primary Care Prov ider Reason for Visit * Reason Onset Date Comments Palliative Care Follow-up 05/15/2024 Encounter Details Date Type Department Care Team (Late st Contact Info) Description 05/15/2024 Telephone Palliative Medicine, [address] [place] [address] Bianca Ruiz MD [address] [place] [address] [phone] Palliative Care Follow-up Allergies Active Allergy Reactions Criticality Noted Date [...] of Assessment Author No 11/25/2022 5:16 PM Nikiat Milton RN documented as of this encounter Mental Status * Because of a physical, mental, or emotional condition, do you have serious difficulty concentrating, remembering, or making decisions? (5 years old or older) Answer Entry Date Author No 11/25/2022 5:16 PM Nikita Milton RN documented in this encounter Miscellaneous Notes * Telephone Encounter - Felicia Ramesh OSA - 05/15/2024 3:52 PM EST Irene from [facility] Home Health is calling regarding the referral they received for the patient. They are unable to take on the patient as she is outside of their working area. * Telephone Encounter - Caridad Villalpando LPN - 05/15/2024 3:25 PM EST Home Health referral, insurance info, demographics, and notes faxed to [facility] documented in this encounter Plan of Treatment Upcoming Encounters Date Type Department Care Team (Late st Contact Info) Description 05/16/2024 9:45 AM EST Pharmacy Pharmacy Hematology Oncology [facility] [address] [place] [address] [facility], [facility] Hem/Onc [address] [place] [address] 05/20/2024 9:40 AM EST Laboratory Laboratory [facility] [place] [address] [place] [phone] Nasreen, Lab [address]en[address] [place] [address] 05/20/2024 10:15 AM EST Office Visit Hematology/Oncology [facility] [place] [address] [place] [phone] Chandni Almonte MD [address] [place] [address] 05/20/2024 10:45 AM EST Hem/Onc Treatment Hematology/Oncology Treatment, [place] [address] [place] [phone] Nasreen, Chair 2 Hem Onc Scenery [address] [place] [address] 05/30/2024 9:00 AM EST Telemedicine Palliative Medicine, [facility] [address] [facility] [address] Alisia Loo CRNP [address] [facility] [address] 07/19/2024 11:30 AM EDT Office Visit Cardiology, [facility] 132 [facility] [place] [address] Ciro Saini, [address] [place] [address] 02/03/2025 1:00 PM EDT Office Visit Gynecology/Obstetrics [facility] [address] [place] [address] [place], SANDRA Murillo [address] [place] [address] Health Maintenance Due Date Last Done Comments [...] this encounter Medical Devices Implanted Type Area Adult Literacy Teacher Device Identifier Shelf Expiration Date Model / Serial / Lot Power Port 8fr Sngl Lumen Plas - [id number] Implanted:Qty : 1 on 01/05/2023 by Jai Malcolm Jr., MD at OR [facility] Right: Chest CR BARD : PERIPHERAL VASCULAR [id number] 07/08/2024 [id number] / / [id number] documented as of this encounter Advance Directives [...] Power of Attor johann? No Care Teams Rail Director Relationship Specialty Start Date End Date Lina Can MD [address] [place] [address] [place] [phone] PCP - General Family Medicine 08/06/22 documented as of this encounter
--- OUTSIDE RECORDS SUMMARY | 2024-06-04 04:05 | External Medical Summary | Summary of Care ---
Author Name Unknown Organization [facility] Address [address] [place] [address] Phone [phone] Care Team Providers Care Anthropologist Name Role Phone Lina Can MD Primary Care Prov ider Reason for Visit * Reason Comments Outpatient Testing Encounter Details Date Type Department Care Team (Late st Contact Info) Description 05/20/2024 9:40 AM EST Laboratory Laboratory [facility] [address] [place] [id number] [facility] Lab Sc[address] [place] [address] Malignant neoplasm of sigmoid colon (HCC); Metastasis [...] mg) before bedtime on days 1-5 and 8- of 28-day cycle. Take within 1 hour [...] 1 5 Active Eliquis 5 MG Oral Tablet Take 1 Tablet by mouth in the morning and 1 Tablet before bedtime. 60 Tablet 11 4 05/20/19 25 Discontin ued(Refil l) documented as of [...] 9:45 AM EST Pharmacy Pharmacy Hematology Oncology [address] [facility], [facility] Clinic Hem/Onc [facility] [place] [address] Malignant neoplasm of sigmoid colon (HCC)* 05/30/2024 9:00 AM EST Telemedicine Palliative Medicine, [facility] [address] [place] [address] Alisia Loo CRNP [address] [place] [address] 06/03/2024 10:00 AM EST Laboratory Laboratory [facility] [place] [address] [place] [phone] Nas[place], Lab Scenery [address] [place] [address] 06/03/2024 11:00 AM EST Office Visit Hematology/Oncology [facility] [place] [address] [place] [phone] Alisia Bimringham CRNP [address] [place] [address] 06/03/2024 11:30 AM EST Hem/Onc Treatment Hematology/Oncology Treatment, [place] [address] [place], [place] [phone] Nasreen, Chair 3 Hem Onc Scenery [address] [place] [address] 06/10/2024 9:45 AM EST Pharmacy Pharmacy Hematology Oncology [facility] [address] [facility] [address] [facility], [facility] [address] [facility] [address] 07/19/2024 11:30 AM EDT Office Visit Cardiology, [facility] [address] [place] [address] Ciro Saini, [address] [place] [address] 01/08/2025 2:20 PM EDT Office Visit Family Medicine [address] [place] [phone] Lina Can MD [address] [place] [address] [place] [address] 02/03/2025 1:00 PM EDT Office Visit Gynecology/Obstetri [facility] [address] [place] [address] BackerNelli CRNP [address] [place] [address] Health Maintenance Due Date Last Done Comments [...] encounter Medical Devices Implanted Type Area Manager Produce Device Identifier Shelf Expiration Date Model / Serial / Lot Power Port 8fr Sngl Lumen Plas - [id number] Implanted:Qty : 1 on 01/05/2023 by Jai Malcolm Jr., MD at [facility] Right: Chest CR BARD : PERIPHERAL VASCULAR [id number] 07/08/2024 [id number] / / [id number] documented as of this encounter Procedures Procedure Name Priority Date/Time Associated Diagnosis Comments DIFFERENTIAL, AUTOMATED STAT 05/20/2024 9:48 AM EST Malignant neoplasm of sigmoid colon (HCC) Metastasis to bone (HCC) COMPREHENSIVE METABOLIC PANEL STAT 05/20/2024 9:48 AM EST Malignant neoplasm of sigmoid colon (HCC) Metastasis to bone (HCC) CBC STAT 05/20/2024 9:48 AM EST Malignant neoplasm of sigmoid colon (HCC) Metastasis to bone (HCC) CBC STAT 05/20/2024 9:48 AM EST Malignant neoplasm of sigmoid colon (HCC) Metastasis to bone (HCC) DIFFERENTIAL, TECHNOLOGIST REVIEW Routine 05/20/2024 9:48 AM EST Malignant neoplasm of sigmoid colon (HCC) Metastasis to bone (HCC) MAGNESIUM STAT 05/20/2024 9:48 AM EST Malignant neoplasm of sigmoid colon (HCC) Metastasis to bone (HCC) documented in this encounter Results * (ABNORMAL) DIFFERENTIAL, TECHNOLOGIST REVIEW (05/20/2024 9:48 AM EST) WBC 8.05 4.00 - 10.80 K/uL 05/20/2024 10:10 AM EST [facility] 56-02 Neutrophils % 84.0(H) 40.0 - 75.0 % 05/20/2024 10:10 AM EST [facility] 56-02 Lymphocytes % 8.0(L) 18.0 - 42.0 % 05/20/2024 10:10 AM EST [facility] 56-02 Monocytes % 8.0 1.0 - 11.0 % 05/20/2024 10:10 AM EST [facility] 56-02 Absolute Neutrophils 6.76 1.80 - 7.70 K/uL 05/20/2024 10:10 AM [facility] 56- Absolute Lymphocytes 0.64(L) 1.00 - 4.80 K/uL 05/20/2024 10:10 AM [facility] 56- Absolute Monocytes 0.64 0.00 - 1.10 K/uL 05/20/2024 10:10 AM [facility] 56- nRBCs 05/20/2024 10:10 AM [facility] 56 Hypersegmented Neutrophils Present(A ) None Seen 05/20/2024 10:10 AM [facility] 56- Blood Venous blood specimen / Unknown Venipuncture / Unknown 05/20/2024 9:48 AM EST 05/20/2024 9:49 AM EST Chandni Almonte MD LAB BLOOD ORDERABLES Fin al Result [facility] 56 [address] [place] [address] * DIFFERENTIAL, AUTOMATED (05/20/2024 9:48 AM EST) Blood Venous blood specimen / Unknown Venipuncture / Unknown 05/20/2024 9:48 AM EST 05/20/2024 9:49 AM EST Chandni Almonte MD LAB BLOOD ORDERABLES Fin al Result [facility] [address] [place] [address] * (ABNORMAL) CBC (05/20/2024 9:48 AM EST) WBC 8.05 4.00 - 10.80 K/uL 05/20/2024 10:10 AM [facility] 56- RBC 3.68 3.85 - 5.15 M/uL 05/20/2024 10:10 AM [facility] 56- HGB 10.6(L) 12.0 - 15.3 g/dL 05/20/2024 10:10 AM [facility] 56 HCT 35.1(L) 36.0 - 45.2 % 05/20/2024 10:10 AM [facility] 56 MCV 95.4 81.5 - 97.5 fL 05/20/2024 10:10 AM [facility] 56 MCH 28.8 27.0 - 34.0 pg 05/20/2024 10:10 AM [facility] 56 MCHC 30.2 32.0 - 36.0 g/dL 05/20/2024 10:10 AM [facility] 56 RDW 17.0 11.5 - 15.5 % 05/20/2024 10:10 AM [facility] 56 PLT 163 140 - 400 K/uL 05/20/2024 10:10 AM [facility] 56 MPV 9.8 6.6 - 11.1 fL 05/20/2024 10:10 AM [facility] 56 Blood Venous blood specimen / Unknown Venipuncture / Unknown 05/20/2024 9:48 AM EST 05/20/2024 9:49 AM EST Chandni Almonte MD LAB BLOOD ORDERABLES Fin al Result [facility] [address] [place] [address] * (ABNORMAL) COMPREHENSIVE METABOLIC PANEL (05/20/2024 9:48 AM EST) BUN 14 6 - 20 mg/dL 05/20/2024 10:23 AM [facility] 56 CREATININE 0.5 0.5 - 1.0 mg/dL 05/20/2024 10:23 AM [facility] 56 EGFR >90 >=60 mL/min 05/20/2024 10:23 AM [facility] 56 Comment:eGFR is calculated b ased on the CKD-EPI 2020 equation. SODIUM 131(L) 135 - 146 mmol/L 05/20/2024 10:23 AM [facility] 56 POTASSIUM 4.9 3.5 - 5.1 mmol/L 05/20/2024 10:23 AM [facility] 56-02 CHLORIDE 95(L) 98 - 107 mmol/L 05/20/2024 10:23 AM [facility] 56-02 CO2 23 22 - 32 mmol/L 05/20/2024 10:23 AM [facility] 56-02 ANION GAP 13 7 - 15 mmol/L 05/20/2024 10:23 AM [facility] 56-02 GLUCOSE 126(H) 70 - 120 mg/dL 05/20/2024 10:23 AM [facility] 56-02 Albumin 3.6(L) 3.8 - 5.0 g/dL 05/20/2024 10:23 AM [facility] 56-02 AST 38(H) 10 - 35 U/L 05/20/2024 10:23 AM [facility] 5602 Alkaline Phosphatase 213(H) 35 - 130 U/L 05/20/2024 10:23 AM [facility] 56-02 Bilirubin, Total 0.5 <=1.2 mg/dL 05/20/2024 10:23 AM [facility] 56-02 CALCIUM 8.9 8.4 - 10.2 mg/dL 05/20/2024 10:23 AM [facility] 56-02 Protein 7.3 6.0 - 8.3 g/dL 05/20/2024 10:23 AM [facility] 56-02 ALT 23 10 - 35 U/L 05/20/2024 10:23 AM [facility] 56-02 Blood Venous blood specimen / Unknown Venipuncture / Unknown 05/20/2024 9:48 AM EST 05/20/2024 9:49 AM EST us Chandni Almonte MD LAB BLOOD ORDERABLES Fin al Result [facility] [address] [place] [address] * MAGNESIUM (05/20/2024 9:48 AM EST) Magnesium 2.2 1.5 - 2.6 mg/dL 05/20/2024 10:23 AM [facility] 56-02 Blood Venous blood specimen / Unknown Venipuncture / Unknown 05/20/2024 9:48 AM EST 05/20/2024 9:49 AM EST Chandni Almonte MD LAB BLOOD ORDERABLES Fin al Result [facility] [address] [place] [address] documented in this encounter Visit Diagnoses Diagnosis [...] Power of Attor johann? No Care Teams Anthropologist Relationship Specialty Start Date End Date Lina Can MD [address] [place] [address] [place] [address] PCP - General Family Medicine 08/06/22 documented as of this encounter
--- OUTSIDE RECORDS SUMMARY | 2024-06-04 04:05 | External Medical Summary | Summary of Care ---
Author Name Unknown Organization [facility] Address [address] [place] [address] Phone [phone] Care Team Providers Care Concrete Wall Grinder Operator Name Role Phone Lina Can MD Primary Care Prov ider Reason for Referral * Evaluate & Treat - Unlimited Visits (Within 30 days (routine)) - Authorized Specialty Diagnoses / Procedures Referred By Contac t Referred To Contact HOME CARE / Home Care Diagnoses Wound of sacral region, initial encounter Justine Garcia [address] [place] [address] Phone: tel: fax: Referral ID Status Reason Start Date Expiration Date Visits Requested Visits Authorized [id number] Authorized Specialty Services Required 05/17/2024 [id number] Question Answer Referral Priority Within 30 days (routine) Where should this appointment be scheduled? External - [facility] Comments Documentation of Ftyv-qq-[id number] Encounter Addendum Patient Name: Nyasia Hdez I certify that this patient is under my care and that I, or a nurse practitioner or physician's sales and marketing assistant working with me, had a [id number]-wjyo encounter that meets the physician itdv-rg-lzqx encounter requirements with this patient on: 05/17/24 The encounter with the patient was in whole, or in part, for the following medical condition, which is the primary reason for home health care (List medical condition): Wound care I certify that, based on my findings, the following services are medically necessary home health services: Nursing To provide the following care/treatments: (All hospitalists not following the patient after discharge should complete this section): has a sacral pressure wound from recent hospitalization that needs monitored and assisted with dressing changes Primary Care Physician to follow home care plan of care after discharge: Justine FLORES / Dr. Young My clinical findings support the need for the above services because: patient has a large pressure injury, hx of metastatic cancer, and decreased mobility Further, I certify that my clinical findings support that this patient is homebound (i.e. Absences from home require considerable and taxing effort and are for medical reasons or buddhist services or infrequently or of short duration when for other reason) because: Metastatic cancer and decreased mobility / primarily wheelchair bound Physician Signature: Date of Signature: Physician Printed Name: SANDRA Ho Reason for Visit * Reason Comments Acute Encounter Details Date Type Department Care Team (Late st Contact Info) Description 05/17/2024 12:00 PM EST Office Visit Family Medicine [address] [place] [phone] Justine Garcia CRNP [address] [place] [address] [place] [address] Wound of sacral region, initial encounter* Allergies Active Allergy Reactions Criticality Noted Date Comments Amoxicillin-Pot Clavulanate Nausea/vomiting 07/12/2022 GI upset Doxycycline Nausea/vomiting 07/12/2022 GI upset Oxaliplatin Flushing High 07/27/2023 Shortness of breath Metoclopramide Hives 08/10/2022 documented as of this encounter (statuses as of 05/17/2024) Medications Acetaminophen 500 MG Oral Tablet (Tylenol [...] to burn 50 g 1 5 Active documented as of this encounter (statuses as of 05/17/2024) Active Problems Problem Noted Date Diagnosed Date [...] as of this encounter (statuses as of 05/17/2024) Immunizations No known immunizationsdocumented as of this [...] Sign Reading Time Taken Comments Blood Pressure 108/62 05/17/2024 11:35 AM EST Pulse 95 05/17/2024 11:35 AM EST Temperature 36.7 C (98 F) 05/17/2024 11:35 AM EST Respiratory Rate - - Oxygen Saturation 97% 05/17/2024 11:35 AM EST Inhaled Oxygen Concentration - - [...] documented in this encounter Progress Notes * Justine Garcia CRNP - 05/17/2024 11:34 AM EST Images from the original note were not included. History of Present Illness Nyasia Hdez is a 69 year old female that presents for Acute Presents today with her son. Concerns today for bed sores that started. Was hospitalized at [facility] from 05/09/24-05/12/24 for CHF. D/c with small red checo and they gave her onedressing to put on it. Since has gotten significantly larger. Notes some scant drainage, worse overnight. Has been keeping it covered with OTC dressing pads and using A&D ointment. Follows with heme/onc and palliative medicine for metastatic cancer. Suppose to be evaluated by [facility] tomorrow. Getting a hospital bed tomorrow. Has been able to change positions frequently. No fever or chills. Does have pain at wound site. Patient Active Problem List Diagnosis Rash and nonspecific skin eruption LLQ pain Diarrhea Adenomyomatosis of gallbladder Vaginal discharge Malignant neoplasm of sigmoid colon (HCC) Hyponatremia Encounter for antineoplastic chemotherapy History of colon cancer New onset atrial fibrillation (HCC) Metastasis to bone (HCC) Controlled substance agreement signed Current Outpatient Medications Medication Sig Dispense Refill Acetaminophen 500 MG Oral Tablet (Tylenol Extra Strength) Take 1 Tablet by mouth every 6 hours as needed for Fever (Temp Greater than ) or Pain, Moderate. Prochlorperazine Maleate 10 MG Oral Tablet (Compazine) [...] the morning. (Patient not taking: Reported on 05/01/2024) 30 Tablet 1 traMADol HCl 50 MG Oral Tablet (Ultram) Take 1 Tablet by mouth every 6 hours as needed for Pain, Moderate. 30 Tablet 0 Morphine Sulfate ER 15 MG Oral Tablet Extended Release (Ms Contin) Take 1 Tablet by mouth in the morning and 1 Tablet before bedtime. 60 Tablet 0 Trifluridine-Tipiracil 15-6.14 MG Oral Tablet (Lonsurf) Take 2 tablets (30 mg) by mouth in the morning and 2 tablets (30 mg) before bedtime on days 1-5 and 8- 12 of 28-day cycle. Take within 1 hour ofmeal. 40 Tablet 5 Trifluridine-Tipiracil 20-8.19 MG Oral Tablet (Lonsurf) Take 1 tablet (20 mg) by mouth in the morning and 1 tablet (20 mg) before bedtime on days 1-5 and 8-12 of 28-day cycle. Take within 1 hour of meal. 20 Tablet 5 oxyCODONE HCl 5 MG Oral Tablet (Oxy IR) Take 1 Tablet by mouth every 4 hours as needed for Pain, Moderate. Continued script 60 Tablet 0 Ondansetron HCl 8 MG Oral Tablet (Zofran) Take 1 Tablet by mouth every 8 hours as needed for Nausea. 30 Tablet 1 No current facility-administered medications for this visit. Review of patient's allergies indicates: Allergen Reactions Oxaliplatin Flushing Shortness of breath Augmentin [Amoxicillin-Pot Clavulanate] Nausea/vomiting GI upset Doxycycline Nausea/vomiting GI upset Reglan [Metoclopramide] Hives Past Medical History: Diagnosis Date Breast cancer (HCC) 1991 right mastectomy Cancer, metastatic to bone (HCC) Colon cancer (HCC) New onset atrial fibrillation (HCC) 11/02/2023 Past Surgical History: Procedure Laterality Date COLONOSCOPY, DIAGNOSTIC (RECTUM) N/A 10/06/2022 COLONOSCOPY FLEXIBLE PROXIMAL DIAGNOSTIC performed by Timoteo Ayala DO at ENDOSCOPY [facility] COLONOSCOPY, DIAGNOSTIC (RECTUM) 10/21/2022 A fungating partially obstructing large mass was found in the sigmoid colon, performed by Glo Garcia DO at ENDOSCOPY [facility] CYSTOSCOPY/INSERTION OF STENT Bilateral 11/25/2022 CYSTOURETHROSCOPY WITH INSERTION URETERAL STENT DUAL SERVICE performed by Kishan Leblanc MD at [facility] CYSTOSCOPY/TREAT SML BLADDER TUMOR N/A 11/25/2022 ADULT CYSTOURETHROSCOPY WITH FULGURATION SMALL BLADDER TUMOR performed by Kishan Leblanc MD at OR [facility] INSER TUNN ACC DEV;5 YRS/OLDER Right 01/05/2023 INSERT TUNNELED CENTRAL VENOUS ACCESS WITH SUBQ PORT performed by Jai Malcolm Jr., MD at OR [facility] IR BIOPSY 11/15/2023 LAPAROSCOPIC PARTIAL COLECTOMY W/COLOPROCTOSTOMY N/A 11/25/2022 ROBOTIC LAPAROSCOPIC PARTIAL COLECTOMY WITH COLOPROCTOSTOMY performed by Timoteo Ayala DO atOR [facility] LAPAROSCOPY TOTAL HYSTX, UTERUS 250GM OR LESS 11/25/2022 ROBOTIC LAPAROSCOPIC HYSTERECTOMY FOR UTERUS 250GM OR LESS performed by Vinay Rice MD at OR [facility] MASTECTOMY, SIMPLE, COMPLETE Right 1992 [place] HEPATOBILIARY [...] on file Housing Stability: Not on file Physical Exam Vitals: 05/17/24 1135 Temp: 98 F (36.7 C) Pulse: 95 SpO2: 97% BP: 108/62 General: A&Ox3 and no distress Heart: regular rate & rhythm, no murmur, no gallops, S-1 normal, and S-2 normal Lungs: normal respiratory rate and rhythm, lungs clear to auscultation Extremities: no BLE edema Skin: warm and dry I have reviewed the following results: BMP results Recent Labs Units 05/06/24 1032 04/18/24 1454 03/18/24 0907 SODIUM - [facility] mmol/L 133* 133* 135 POTASSIUM - [facility] mmol/L 4.0 3.7 4.3 CHLORIDE - [facility] mmol/L 97* 95* 98 CO2 - [facility] mmol/L 27 CREATININE - [facility] mg/dL 0.4* 0.5 0.7 BUN - [facility] mg/dL 10 9 8 CBC results Recent Labs Units 05/06/24 1032 04/18/24 1454 03/18/24 0907 WBC K/uL 8.27 9.68 11.34* HGB g/dL 10.2* 10.4* 12.4 HCT % 33.8* 32.3* 37.4 PLT K/uL 184 183 121* Assessment and Plan Wound of sacral region, initial encounter - appears to be superficial / stage 1 at this time - recommend keeping clean and dry / daily dressing changes and using thin layer of silvadene cream - has home health / update referral for wound care as well - Silver sulfADIAZINE 1 % External Cream (Silvadene); Apply topically to affected area daily. Applyto burn Wrap-Up Follow-up: Return in about 3 months (around 08/14/2024). | Check-out note: 3-[address] Young Time: I spent a total of 20-29 minutes (exact time 20 mins) on the date of service in preparation, delivery, and documentation of the care provided to Nyasia Hdez excluding any time spent in the performance of separately billed services. Cosigned by Sugey Whitney MD at 05/17/2024 12:36 PM EST documented in this encounter Nursing Notes * Bina Contreras LPN - 05/17/2024 11:32 AM EST Bed sores. Didn't want weighed today. documented in this encounter Miscellaneous Notes * Pt Handout (on AVS) - Justine Garcia CRNP - 05/17/2024 12:25 PM EST Images from the original note were not included. [id number] Pressure Injury A pressure injury (decubitus ulcer) starts as a red, tender area on skin (pressure sore). It's caused by lying or sitting on a bony area for long periods of time without turning. This reduces the amount of blood flow to that part of the skin. Pressure injuries often occur on the lower back, buttocks, or heels. They affect people who spend most or all their time in bed. These pressure injuries take a long time to heal, depending on how big they are and how deep they are. If a pressure injury becomes infected, it will cause redness in the skin around the pressure injury. Pus will drain from the wound. If not treated early, an infection from a pressure injury can spread to the bloodstream or nearby bone. Home care Follow these guidelines to help you or your caregiver care for your wound at home: Look at your pressure injury every day with good lighting to watch for signs of infection. At the same time, check other skin pressure points for early signs of skin changes. Change positions at least every few hours. It will let blood flow to the pressure areas. This isessential for healing to occur. A foam, water, or air mattress or gel pad will help reduce the pressure on the skin. Your healthcare provider may give you a special skin covering that stays in place on the pressure injury. If a simple bandage is used, change it daily. Clean the pressure injury with sterile saline or another solution your healthcare provider tells you to use. Pat dry. Apply any prescribed lotion or cream. Cover with a clean, dry gauze pad. Bed linens should be kept clean and dry. Try to keep from soiling the pressure injury with feces or urine. If this isn?t possible, keep the time of contact with the feces or urine to a minimum. Do this by keeping the wound covered and clean. Follow-up care Follow up with your healthcare provider as advised. When to get medical advice Call your healthcare provider right away if any of these occur: Redness or darkness around the wound that gets worse Pain or swelling near the wound that gets worse Pus that drains from a wound Foul or increasing odor from the wound Unexplained fever of 100.4F (38C) or higher, or as directed by your healthcare provider Last Reviewed Date: 2022 00:00:00 8020-7437 [employer]. All rights reserved. This information is not intended as a substitute for professional medical care. Always follow your healthcare professional's instructions. documented in this encounter Plan of Treatment Upcoming Encounters Date Type Department Care Team (Late st Contact Info) Description 05/20/2024 9:40 AM EST Laboratory Laboratory [facility] [place] [address] [place] [phone] Nasreen [facility] [place] [address] [place] [address] 05/20/2024 10:15 AM EST Office Visit Hematology/Oncology [facility] Nasreen [place] [address] [place] [phone] Chandni Almonte MD [address] [place] [address] 05/20/2024 10:45 AM EST Hem/Onc Treatment Hematology/Oncology Treatment, [place] [address] [place] [phone] Nasreen, Chair 2 Hem Onc [facility] [address] [place] [address] 05/27/2024 9:45 AM EST Pharmacy Pharmacy Hematology Oncology [place] [address] [place] [address] [facility] Hem/Onc [facility] [place] [address] 05/30/2024 9:00 AM EST Telemedicine Palliative Medicine, [facility] [address] [facility] [phone] Alisia Loo [facility] [address] [facility] [place] [address] 07/19/2024 11:30 AM EDT Office Visit Cardiology, [facility] [address] [place] [address] Ciro Saini DO [address] [place] [address] 02/03/2025 1:00 PM EDT Office Visit Gynecology/Obstetrics [facility] [address] [place] [address] Nelli Farrell CRNP [address] [place] [address] Scheduled Referrals Name Type Priority Associated Diagnoses Orde r Schedule HOME HEALTH REFERRAL OP Referral Within 30 days (routine) Wound of sacral region, initial encounter Ordered: 05/17/2024 Health Maintenance Due Date Last Done Comments [...] this encounter Medical Devices Implanted Type Area Hardboard Panel Printer Device Identifier Shelf Expiration Date Model / Serial / Lot Power Port 8fr Sngl Lumen Plas - [id number] Implanted:Qty : 1 on 01/05/2023 by Jai Malcolm Jr., MD at OR [facility] Right: Chest CR BARD : PERIPHERAL VASCULAR [id number] 07/08/2024 [id number] / / [id number] documented as of this encounter Visit Diagnoses Diagnosis Wound of sacral region, initial encounter- Primary documented in this encounter Advance Directives [...] Power of Attor johann? No Care Teams Concrete Wall Grinder Operator Relationship Specialty Start Date End Date Lina Can MD [address] [place] [address] [place] [address] PCP - General Family Medicine 08/06/22 documented as of this encounter"
--- OUTSIDE RECORDS SUMMARY | 2024-06-04 04:05 | External Medical Summary | Summary of Care ---
Author Name Unknown Organization [facility] Address [address] [place] [address] Phone [phone] Care Team Providers Care Neon Light Installer Name Role Phone Lina Can MD Primary Care Prov ider Reason for Visit * Reason Comments Chemotherapy Zirabev * Episode Based Medications (Routine) - Authorized Specialty Diagnoses / Procedures Referred By Contac t Referred To Contact Diagnoses Encounter for antineoplastic chemotherapy Malignant neoplasm of sigmoid colon (HCC) Procedures HI INJ., ZIRABEV, 10 MG Heriberto Wiley MD [address] [place] [address] [place] [address] Phone: tel: fax: Hematology/Oncology Treatment, [address] [phone] Phone: tel: fax: Referral ID Status Reason Start Date Expiration Date V isits Requested Visits Authorized [id number] Authorized 04/18/2024 04/09/[id number] Encounter Details Date Type Department Care Team (Latest Contact Info) Description 05/06/2024 11:30 AM EST Hem/Onc Treatment Hematology/Oncolog y Treatment, [address] [phone] Nasreen, Chair 1 Hem Onc [address] [place] [address] Encounter for antineoplastic chemotherapy*; Malignant neoplasm of sigmoid colon (HCC) Allergies Active Allergy Reactions Criticality Noted Date Comments Amoxicillin-Pot Clavulanate Nausea/vomiting 07/12/2022 GI upset Doxycycline Nausea/vomiting 07/12/2022 GI upset Oxaliplatin Flushing High 07/27/2023 Shortness of breath Metoclopramide Hives 08/10/2022 documented as of this encounter (statuses as of 05/19/2024) Medications Acetaminophen 500 MG Oral Tablet (Tylenol [...] as of this encounter (statuses as of 05/19/2024) Active Problems Problem Noted Date Diagnosed Date [...] as of this encounter (statuses as of 05/19/2024) Immunizations No known immunizationsdocumented as of this [...] Description 05/20/2024 9:40 AM EST Laboratory Laboratory [facility] [place] Dow[place] [address] [place] [phone] Terrance Downey [address] [place] [address] 05/20/2024 10:15 AM EST Office Visit Hematology/Oncology [place] [facility] [place] [address] [place] [phone] Chandni Almonte MD [address] [place] [address] 05/20/2024 10:45 AM EST Hem/Onc Treatment Hematology/Oncology Treatment, [place] [address] [place], [place] [phone] Nasreen, Chair 2 Hem Onc [place] [address] [place], [place] [address] 05/27/2024 9:45 AM EST Pharmacy Pharmacy Hematology Oncology [facility] [address] [place] [address] [facility], [facility] Hem/Onc [address] [place] [address] 05/30/2024 9:00 AM EST Telemedicine Palliative Medicine, [facility] [address] [place] [phone] Alisia Loo CRNP [address] [place] [address] 07/19/2024 11:30 AM EDT Office Visit Cardiology, [facility] [address] [place] [address] Ciro Saini, [address] [place] [address] 02/03/2025 1:00 PM EDT Office Visit Gynecology/Obstetrics [facility] [address] [place] [address] Nelli Farrell CRNP [address] [place] [address] Health Maintenance Due Date Last Done Comments [...] encounter Medical Devices Implanted Type Area Executive Account Manager Device Identifier Shelf Expiration Date Model / Serial / Lot Power Port 8fr Sngl Lumen Plas - [id number] Implanted:Qty : 1 on 01/05/2023 by Jai Malcolm Jr., MD at OR [facility] Right: Chest CR BARD : PERIPHERAL VASCULAR [id number] 07/08/2024 [id number] / / [id number] documented as of this encounter Visit Diagnoses [...] 12:45 PM EST 265 mg 210 mL/hr hEParin 100 UNIT/ML Lock Flush inj 500 Units 500 Units (5 mL), IV Lock, PRN Other, IV Flush, Starting on Mon05/06/24 at 1152, Until Mon05/06/24 at 1851, For 24 hours, Do not flush if lock, PICC, or central line not in place; IV infusing or unable to flush.Indications:Encounter for antineoplastic chemotherapy,Malignant neoplasm of sigmoid colon (HCC) Given 05/06/2024 1:22 PM EST 500 Units NSS infusion Intravenous, at 50 mL/hr, PRN, Starting on Mon05/06/24 at 1300, Until Mon05/06/24 at 1851, Maintenance lineIndications:Encounter for antineoplastic chemotherapy,Malignant neoplasm of sigmoid colon (HCC) Start Infusion 05/06/2024 12:02 PM EST 50 mL/hr sodium chloride 0.9 % flush central line 10 mL 10 mL, IV Push, PRN Other, IV Flush, Starting on Mon05/06/24 at 1152, Until Mon05/06/24 at 1851, For 24 hours, Do not flush if lock, PICC, or central line not in place; IV infusing or unable to flush.Indications:Encounter for antineoplastic chemotherapy,Malignant neoplasm of sigmoid colon (HCC) Given 05/06/2024 1:22 PM EST 10 mL documented in this [...] Power of Attor johann? No Care Teams Neon Light Installer Relationship Specialty Start Date End Date Lina Can MD [address] [place] [address] [place] [address] PCP - General Family Medicine 08/06/22 documented as of this encounter
--- OUTSIDE RECORDS SUMMARY | 2024-06-04 04:05 | External Medical Summary ---
Author Name Unknown Address Unknown Organization K09:[facility] [address] [place] [address] Laboratory Report Ordering Provider Test Date Status DANNIELLE OLVERA 05/20/2024 09:48:26 Final Observation Date Value Abnormality Reference (Units ) Status BUN 05/20/2024 09:48:26 14 6-20 (mg/dL) Final Creatinine 05/20/2024 09:48:26 0.5 0.5-1.0 (mg/dL) Final Glomerular filtration rate/1.73 sq M.predicted [Volume Rate/Area] in Serum, Plasma or Blood by Creatinine-based formula (CKD-EPI) 05/20/2024 09:48:26 >90 >=60 (mL/min) Final eGFR is calculated based on the CKD-EPI 2020 equation. Sodium 05/20/2024 09:48:26 131 Below low normal 135 -146 (mmol/L) Final Potassium 05/20/2024 09:48:26 4.9 3.5-5.1 (m mol/L) Final Cl 05/20/2024 09:48:26 95 Below low normal 98- 107 (mmol/L) Final CO2 05/20/2024 09:48:26 23 22-32 (mmo l/L) Final Anion gap 05/20/2024 09:48:26 13 7-15 (mmol /L) Final Glucose 05/20/2024 09:48:26 126 Above high normal 70 -120 (mg/dL) Final Albumin 05/20/2024 09:48:26 3.6 Below low normal 3.8 -5.0 (g/dL) Final AST (Aspartate aminotransferase) 05/20/2024 09:48:26 38 Above high normal 10-35 (U/L) Final Alk Phos 05/20/2024 09:48:26 213 Above high normal 35 -130 (U/L) Final Bilirubin, Total 05/20/2024 09:48:26 0.5 <=1 .2 (mg/dL) Final Calcium 05/20/2024 09:48:26 8.9 8.4-10.2 ( mg/dL) Final Protein 05/20/2024 09:48:26 7.3 6.0-8.3 (g /dL) Final ALT (Alanine aminotransferase) 05/20/2024 09:48:26 23 10-35 (U/L) Shubham ornelas Performing Location [facility] [address] [place] [address]
--- OUTSIDE RECORDS SUMMARY | 2024-06-04 04:05 | External Medical Summary | Summary of Care ---
Author Name Unknown Organization [facility] Address [address] [place] [address] Phone [phone] Care Team Providers Care Insurance Actuary Name Role Phone Lina Can MD Primary Care Prov ider Reason for Referral * Evaluate & Treat - Unlimited Visits (Within 10 days (routine)) - Authorized Specialty Diagnoses / Procedures Referred By Contac t Referred To Contact HOME CARE / Home Care Diagnoses Cancer related pain Malignant neoplasm of sigmoid colon (HCC) Bianca Ruiz MD [address] [place] [address] Phone: tel: fax: Referral ID Status Reason Start Date Expiration Date Visits Requested Visits Authorized [id number] Authorized Specialty Services Required 05/15/2024 999 999 Question Answer Referral Priority Within 10 days (routine) Where should this appointment be scheduled? Xi Comments Documentation of Mzqh-df-Yqpt Encounter Addendum Patient Name: Nyasia Hdez I certify that this patient is under my care and that I, or a nurse practitioner or physician's dental office assistant working with me, had a qioz-kc-ltgp encounter that meets the physician zjda-lp-gwfq encounter requirements with this patient on: 05/15/2024 The encounter with the patient was in whole, or in part, for the following medical condition, which is the primary reason for home health care (List medical condition): Sigmoid cancer, new wound developing I certify that, based on my findings, the following services are medically necessary home health services: Wound care and Bath aide To provide the following care/treatments: (All hospitalists not following the patient after discharge should complete this section): Wound care eval and treat Primary Care Physician to follow home care plan of care after discharge: Lina Young MD My clinical findings support the need for the above services because: Pt has metastatic cancer, recent hospital stay, high risk of decline Further, I certify that my clinical findings support that this patient is homebound (i.e. Absences from home require considerable and taxing effort and are for medical reasons or christianity services or infrequently or of short duration when for other reason) because: Has metastatic cancer Physician Signature: Date of Signature: Physician Printed Name: Bianca Ruiz MD Reason for Visit * Reason Comments Follow Up Encounter Details Date Type Department Care Team (Late st Contact Info) Description 05/15/2024 10:00 AM EST Office Visit Palliative Medicine [facility] [address] [place] [address] Bianca Ruiz MD [address] [place] [address] Malignant neoplasm of sigmoid colon (HCC)*; Cancer related pain Allergies Active Allergy Reactions Criticality Noted Date Comments Amoxicillin-Pot Clavulanate Nausea/vomiting 07/12/2022 GI upset Doxycycline Nausea/vomiting 07/12/2022 GI upset Oxaliplatin Flushing High 07/27/2023 Shortness of breath Metoclopramide Hives 08/10/2022 documented as of this encounter (statuses as of 05/15/2024) Medications Acetaminophen 500 MG Oral Tablet (Tylenol [...] Pain, Moderate. Continued script 60 Tablet Active Ondansetron HCl 8 MG Oral Tablet (Zofran)Indicati ons:Malignant neoplasm of sigmoid colon (HCC) Take 1 Tablet by mouth every 8 hours as needed for Nausea. 30 Tablet 1 5 Active documented as of this encounter (statuses as of 05/15/2024) Active Problems Problem Noted Date Diagnosed Date [...] as of this encounter (statuses as of 05/15/2024) Immunizations No known immunizationsdocumented as of this [...] Sign Reading Time Taken Comments Blood Pressure 118/72 05/15/2024 10:01 AM EST Pulse 82 05/15/2024 10:01 AM EST Temperature 36.5 C (97.7 F) 05/15/2024 1 0:01 AM EST Respiratory Rate - - Oxygen Saturation 98% 05/15/2024 10: 01 AM EST Inhaled Oxygen Concentration - - Weight 46.6 kg (102 lb 11.2 oz) 025 10:01 AM EST Height - - Body Mass Index 19.4 11/15/2023 10:01 AM EDT documented in this [...] Nikita Ramirez RN documented in this encounter Patient Instructions * Patient Instructions* Caridad Villalpando LPN - 05/15/2024 10:13 AM EST Our Palliative Medicine Clinic is available Monday through Monday during business hours, so we are unavailable on weekends and holidays. Please ensure that you request refills early in the week as itmay take 1-2 days for them to be addressed and filled, for authorizations to be approved, or for the pharmacy to order them if needed. You can contact our office at [phone], which is our clinic in [place], or you can message us on [employer]. If you have an emergency outside of these hours, we recommend calling your primary care clinic, Oncology office, or going to the ER if you have a medical emergency. 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 At last visit, she saw Alisia who added MS Contin 15mg BID for pain relief. [facility]. She is scheduled for radiation today at 1030 (it was 1210 at the time of our visit). She reports her pain medications are working and does not want to change them. She feels she is doing OK apart from a new wound on her bottom, is hoping to have wound care and home health if possible. She is living at her daughters house since it is all one level. Palliative symptoms: Pain: well controlled, but getting radiation today Nausea/Vomiting: no Appetite: poor appetite Constipation: not really working Confusion: no Sleep issues: sleeping OK Dyspnea: OK Mood issues: good but just tired Falls: no Other: Examination: BP 118/72 (BP Site: Left Arm, BP Position: Sitting, BP Cuff Size: Regular) | Pulse 82 | Temp 36.5 C (97.7 F) (Tympanic) | Wt 46.6 kg (102 lb 11.2 oz) | SpO2 98% | BMI 19.40 kg/m | BSA 1.42 m Constitutional: no acute distress, chronically ill HENT: normocephalic, atraumatic. Eyes: anicteric, sclera and conjunctiva normal. Neck: no stridor Chest: normal respiratory effort Abdominal: nondistended Extremities: no edema Data Review: External notes reviewed: - Reviewed notes from [facility] [place] Summary on 05/14/24, she was admitted for atrial fibrillation Lab / Imaging Results: Cr 0.4 on 05/06, normal, Hb 10.2, low/normal on 05/06 Information obtained from son Gustabo for collateral history Advanced Care Planning (see ACP Tab): Deferred ASSESSMENT/PLAN: Nyasia Hdez is a 69 year old female seen in follow-up for goals of care and pain and symptom management. Sigmoid adenocarcinoma, diffuse mets - Wants to continue chemo, next appt with Onc is on 05/20 Sacral wound, new - She had to french to radiation appt so could not evaluate it - She requests HH with wound care, order placed Cancer related pain - Continue MS Contin 15mg BID - Controlled substance agreement reviewed and completed, signed by myself and patient. Copy given to patient and kept in office records. Goals of care - Continue tx -did not have time to discuss Follow up in 3 weeks. They are able to do video visits. Next visit with me. I spent a total of 31 minutes on the date of service in preparation, delivery, and documentation ofthe care provided to Nyasia Hdez excluding any time spent in the performance of separately billed services. Bianca Ruiz MD [facility] Palliative Medicine [phone] documented in this encounter Nursing Notes * Kavita Mendez MED ASSIST - 05/15/2024 10:02 AM EST Patient identifed by name and [...] it for you? ALREADY ACTIVE Filed Vitals: 05/15/24 1001 BP: 118/72 Pulse: 82 Temp: 36.5 C (97.7 F) TempSrc: Tympanic SpO2: 98% Weight: 46.6 kg (102 lb 11.2 oz) Patient was instructed to [...] 9:45 AM EST Pharmacy Pharmacy Hematology Oncology [address] [address] [facility] Hem/Onc [facility] [place] [address] 05/20/2024 9:40 AM EST Laboratory Laboratory [facility] [address] [place] [address] Terrance Downey [address] [place] [address] 05/20/2024 10:15 AM EST Office Visit Hematology/Oncology [facility] [address] [place] [address] Chandni Almonte MD [address] [place] [address] 05/20/2024 10:45 AM EST Hem/Onc Treatment Hematology/Oncology Treatment, [place] [address] [place], [place] [phone] Park, Chair 2 Hem Onc Scenery [address] [place] [address] 05/30/2024 9:00 AM EST Telemedicine Palliative Medicine, [facility] [address] [place] [address] Alisia Loo CRNP [address] [place] [address] 07/19/2024 11:30 AM EDT Office Visit Cardiology, [facility] [address] [place] [address] Ciro Saini DO [address] [place] [address] 02/03/2025 1:00 PM EDT Office Visit Gynecology/Obstetrics [facility] [address] [place] [address] Nelli Farrell CRNP [address] [place] [address] Scheduled Referrals Name Type Priority Associated Diagnoses Orde r Schedule HOME HEALTH REFERRAL OP Referral Within 10 days (routine) Cancer related pain Malignant neoplasm of sigmoid colon (HCC) Ordered: 05/15/2024 Health Maintenance Due Date Last Done Comments [...] this encounter Medical Devices Implanted Type Area Pet Care Assistant Device Identifier Shelf Expiration Date Model / Serial / Lot Power Port 8fr Sngl Lumen Plas - [id number] Implanted:Qty : 1 on 01/05/2023 by Jai Malcolm Jr., MD at OR [facility] Right: Chest CR BARD : PERIPHERAL VASCULAR [id number] 07/08/2024 [id number] / / [id number] documented as of this encounter Visit Diagnoses Diagnosis Malignant neoplasm of sigmoid colon (HCC)- Primary Malignant neoplasm of sigmoid colon Cancer related pain Neoplasm related pain (acute) (chronic) documented in this encounter Advance Directives * [...] of Attor johann? No Care Teams Insurance Actuary Relationship Specialty Start Date End Date Lina Can MD [address] [place] [address] [place] [phone] PCP - General Family Medicine 08/06/22 documented as of this encounter"
--- OUTSIDE RECORDS SUMMARY | 2024-06-04 04:05 | External Medical Summary | Summary of Care ---
Author Name Unknown Organization [facility] Address [address] [place] [address] Phone [phone] Care Team Providers Care Contact Lens Polisher Name Role Phone Lina Can MD Primary Care Prov ider Reason for Visit * Reason Onset Date Comments Palliative Care Follow-up 05/15/2024 Encounter Details Date Type Department Care Team (Late st Contact Info) Description 05/15/2024 Telephone Palliative Medicine, [address] [place] [address] Bianca Ruiz MD [address] [place] [address] [phone] Palliative Care Follow-up Allergies Active Allergy Reactions [...] encounter Miscellaneous Notes * Telephone Encounter - Caridad Villalpando LPN - 05/16/2024 8:48 AM EST All info faxed to [facility] at [phone] * Telephone Encounter - Felicia Ramesh OSA - 05/15/2024 3:52 PM EST Irene from [facility] is calling regarding the referral they received for the patient. They are unable to take on the patient as she is outside of their working area. * Telephone Encounter - Caridad Villalpando LPN - 05/15/2024 3:25 PM EST Home Health referral, insurance info, demographics, and notes faxed to [facility] documented in this encounter Plan of Treatment Upcoming Encounters Date Type Department Care Team (Late st Contact Info) Description 05/16/2024 9:45 AM EST Pharmacy Pharmacy Hematology Oncology [facility] [address] [place] [address] [facility], [facility] Hem/Onc [address] [place] [address] 05/20/2024 9:40 AM EST Laboratory Laboratory [place] [place] [address] [place] [phone] Nasreen, Lab Scenery [address] [place] [address] 05/20/2024 10:15 AM EST Office Visit Hematology/Oncology [facility] [place] [address] [place] [phone] Chandni Almonte MD [address] [place] [address] 05/20/2024 10:45 AM EST Hem/Onc Treatment Hematology/Oncology Treatment, [place] [address] [place] [phone] Nasreen, Chair 2 Hem Onc Scenery [address] [place] [address] 05/30/2024 9:00 AM EST Telemedicine Palliative Medicine, [facility] [address] [facility] [address] Alisia Loo CRNP [address] [place] [address] 07/19/2024 11:30 AM EDT Office Visit Cardiology, [facility] [address] [place] [address] Ciro Saini DO [address] [place] [address] 02/03/2025 1:00 PM EDT Office Visit Gynecology/Obstetrics [facility] [address] [place] [address] [place], SANDRA Murillo [address] [place] [address] Health Maintenance Due Date Last Done Comments [...] Lipid Panel 07/13/2027 07/12/2022 Colonoscopy 10/21/2032 10/21/2022, 0707/2022, 10/06/2022, Additional history exists Colorectal Cancer Screening [...] encounter Medical Devices Implanted Type Area Marketing Compliance Manager Device Identifier Shelf Expiration Date Model / Serial / Lot Power Port 8fr Sngl Lumen Plas - [id number] Implanted:Qty : 1 on 01/05/2023 by Jai Malcolm Jr., MD at OR [facility] Right: Chest CR BARD : PERIPHERAL VASCULAR [id number] 07/08/2024 [id number] / / [id number] documented as of this encounter Advance Directives [...] Power of Attor johann? No Care Teams Contact Lens Polisher Relationship Specialty Start Date End Date Lina Can MD [address] [place] [address] [place] [address] PCP - General Family Medicine 08/06/22 documented as of this encounter
--- OUTSIDE RECORDS SUMMARY | 2024-06-04 04:05 | External Medical Summary ---
Author Name Unknown Address Unknown Organization K09[facility] [place] [address] Laboratory Report Ordering Provider Test Date Status DANNIELLE OLVERA 05/20/2024 09:48:26 Final Observation Date Value Abnormality Reference (Units ) Status Magnesium 05/20/2024 09:48:26 2.2 1.5-2.6 (m g/dL) Final Performing Location [facility] [address]
--- OUTSIDE RECORDS SUMMARY | 2024-06-04 04:05 | External Medical Summary ---
Author Name Unknown Address Unknown Organization [facility] [place] [address] Laboratory Report Ordering Provider Test Date Status DANNIELLE OLVERA 05/20/2024 09:48:26 Final Observation Date Value Abnormality Reference (Units ) Status SYNC LEUKOCYTES IN BLOOD BY AUTOMATED COUNT 05/20/2024 09:48:26 8.05 4.00-10.80 (K/uL) Final Neutrophils/100 leukocytes in Blood by Manual count 05/20/2024 09:48:26 84.0 Above high normal 40.0-75.0 (%) Final Lymphocytes/100 leukocytes in Blood by Manual count 05/20/2024 09:48:26 8.0 Below low normal 18.0-42.0 (%) Final Monocytes/100 leukocytes in Blood by Manual count 05/20/2024 09:48:26 8.0 1.0-11.0 (%) Final Neutrophils [#/volume] in Blood by Manual count 05/20/2024 09:48:26 6.76 1.80-7.70 (K/uL) Final Lymphocytes [#/volume] in Blood by Manual count 05/20/2024 09:48:26 0.64 Below low normal 1.00-4.80 (K/uL) Final Monocytes [#/volume] in Blood by Manual count 05/20/2024 09:48:26 0.64 0.00-1.10 (K/uL) Final Nucleated erythrocytes/100 leukocytes [Ratio] in Blood by Automated count 05/20/2024 09:48:26 Final Neutrophils.hypersegm ented [Presence] in Blood by Light microscopy 05/20/2024 09:48:26 Present Abnormal None Seen Final Performing Location [facility] [place] [address]
--- OUTSIDE RECORDS SUMMARY | 2024-06-04 04:05 | External Medical Summary | Summary of Care ---
Author Name Unknown Organization [facility] Address [address] [place] [address] Phone [phone] Care Team Providers Care Bookseamer Blindstitch Name Role Phone Lina Can MD Primary Care Prov ider Reason for Visit * Reason Comments Medication Management Encounter Details Date Type Department Care Team (Late st Contact Info) Description 05/27/2024 9:45 AM [facility] Pharmacy Pharmacy Hematology Oncology [facility] [address] [place] [address] [facility] Hem/Onc [address] [place], [place] [phone] Malignant neoplasm of sigmoid colon (HCC)* Allergies [...] before bedtime. 60 Tablet 11 5 Active documented as of this encounter [...] this encounter Progress Notes * Sally Nino, [facility] - 05/20/2024 11:33 AM EST MEDICATION THERAPY MANAGEMENT TRIFLURIDINE/TIPRIACIL TREATMENT PROGRESS NOTE Nyasia Hdez [phone] Patient Phone Numbers Communication: Spoke to MD/PA/SURGICAL SERVICES ASST Treatment: Medication: Trifluridine/tipiracil (Lonsurf) Indication/Staging/Diagnosis Code: colon cancer / C18.7 Dose Basis: 35mg/m2 (BSA 1.51m2) Dose: 50mg (2-15mg + 1-20 mg tab) BID D1-5 and 8-12 every 28 days Administration: with food Start Date: 05/07/24 Primary Sports Broadcaster/Oncologist: Dr. Kodak Wiley Additional Therapy: Bevacizumab Supportive [...] ED due to significant edema Admitted to [facility] 05/09/24-05/12/24 for CHF and a fib and discharged on amiodarone, KCL, mag ox, and furosemide Changes to medication list since last visit? no Drug interaction assessment: Treatment plan and current medication list evaluated for drug-drug interactions. No clinically significant drug interaction identified Assessment and Plan: Per discussion with Dr. Almonte, continue to HOLD Lonsurf due to RT - pt to follow up with Dr. Almonte in 2 weeks to assess CHF resolution and potential treatment restart MTM to follow up after OV to assess treatment plan Assessment of compliance: compliant Assessment of adverse effects attributed to drug therapy: N/A Dose adjustment needed based on lab or adverse drug reaction? No, continue to HOLD Follow up: 06/03 OV/labs; 06/10 MTM Sally Nino, PharmD, BCOP Clinical Pharmacist, [facility] Oral Chemotherapy [facility] 05/20/2024, 11:34 AM Monitoring Parameters: Estimated CrCl Serum creatinine: 0.5 mg/dL 05/20/24 0948 Estimated creatinine clearance: 48.5 mL/min Hepatitis panel Latest Reference Range & [...] monitoring - Medication Requires monitoring Pharmacist Intervention(s): Clarification with Provider and Medication held Magnitude of Intervention: Monitoring with no interventions (Level 0) documented in this encounter Plan of Treatment Upcoming Encounters Date Type Department Care Team (Late st Contact Info) Description 05/30/2024 9:00 AM EST Telemedicine Palliative Medicine, [facility] [address] [place] [address] Alisia Loo CRNP [address] [place] [address] 06/03/2024 10:00 AM EST Laboratory Laboratory [facility] [place] [address] [place] [phone] [place], Lab [facility] [address] [facility] [place] [address] 06/03/2024 11:00 AM EST Office Visit Hematology/Oncology [facility] [place] [address] [place] [phone] Alisia Birmingham CRNP [address] [place] [address] 06/03/2024 11:30 AM EST Hem/Onc Treatment Hematology/Oncology Treatment, [place] [address] [facility] [place] [phone] Nasreen, Chair 3 Hem Onc Scenery [address] [facility] [address] 06/10/2024 9:45 AM EST Pharmacy Pharmacy Hematology Oncology [facility] [address] [place] [address] [facility] Hem/Onc [address] [place] [address] 07/19/2024 11:30 AM EDT Office Visit Cardiology, [facility] [address] [place] [address] Ciro Saini DO [address] [place] [address] 01/08/2025 2:20 PM EDT Office Visit Family Medicine [address] [phone] Lina Can MD [address] [place] [address] [place] [address] 02/03/2025 1:00 PM EDT Office Visit Gynecology/Obstetrics [facility] [address] [place] [address] Nelli Farrell CRNP [address] [place] [address] Health Maintenance Due Date Last Done Comments [...] this encounter Medical Devices Implanted Type Area Rivet Maker Device Identifier Shelf Expiration Date Model / Serial / Lot Power Port 8fr Sngl Lumen Plas - [id number] Implanted:Qty : 1 on 01/05/2023 by Jai Malcolm Jr., MD at [facility] Right: Chest CR BARD : PERIPHERAL VASCULAR [id number] 07/08/2024 [id number] / / [id number] documented as of this encounter Visit Diagnoses [...] Power of Attor johann? No Care Teams Bookseamer Blindstitch Relationship Specialty Start Date End Date Lina Can MD [address] [place] [address] [place] [address] PCP - General Family Medicine 08/06/22 documented as of this encounter
--- OUTSIDE RECORDS SUMMARY | 2024-06-04 04:05 | External Medical Summary | Summary of Care ---
Author Name Unknown Organization [facility] Address [address] [place] [address] Phone [phone] Care Team Providers Care Strapping Machine Tender Name Role Phone Lina Can MD Primary Care Prov ider Reason for Visit * Reason Onset Date Comments Palliative Care Follow-up 05/15/2024 Encounter Details Date Type Department Care Team (Late st Contact Info) Description 05/15/2024 Telephone Palliative Medicine, [address] 5th [place] [address] Bianca Ruiz MD [address] [place] [address] [phone] Palliative Care Follow-up Allergies Active Allergy Reactions [...] Date Author No 11/25/2022 5:16 PM Nikita Mitlon RN documented in this encounter Miscellaneous Notes * Telephone Encounter - Felicia Ramesh OSA - 05/15/2024 3:52 PM EST Irene from [facility] Home Health is calling regarding the referral they received for the patient. They are unable to take on the patient as she is outside of their working area. * Telephone Encounter - Caridad Villalpando LPN - 05/15/2024 3:25 PM EST Home Health referral, insurance info, demographics, and notes faxed to [facility] documented in this encounter Plan of Treatment Upcoming Encounters Date Type Department Care Team (Late st Contact Info) Description 05/16/2024 9:45 AM EST Pharmacy Pharmacy Hematology Oncology [facility] [address] [place] [address] [facility] Hem/Onc [address] [place] [address] 05/20/2024 9:40 AM EST Laboratory Laboratory [facility] [address] [place] [phone] Nasreen, Lab Scenery [address] [place] [address] 05/20/2024 10:15 AM EST Office Visit Hematology/Oncology [facility] [address] [place] [phone] Chandni Almonte MD [address] [place] [address] 05/20/2024 10:45 AM EST Hem/Onc Treatment Hematology/Oncology Treatment, Cost [address] [place] [phone] Nasreen, Chair 2 Hem Onc Scenery [address] [place] [address] 05/30/2024 9:00 AM EST Telemedicine Palliative Medicine, [facility] [address] [facility] [address] Alisia Loo CRNP [facility] [address] 07/19/2024 11:30 AM EDT Office Visit Cardiology, [facility] 132 [facility] [place] [address] Ciro Saini, [address] [place] [address] 02/03/2025 1:00 PM EDT Office Visit Gynecology/Obstetrics Jim Long [address] [place] [address] [place], SANDRA Murillo [address] [place] [address] Health Maintenance Due Date Last Done Comments [...] this encounter Medical Devices Implanted Type Area Hadoop Software Engineer Device Identifier Shelf Expiration Date Model / Serial / Lot Power Port 8fr Sngl Lumen Plas - [id number] Implanted:Qty : 1 on 01/05/2023 by Jai Malcolm Jr., MD at [facility] Right: Chest CR BARD : PERIPHERAL VASCULAR [id number] 07/08/2024 [id number] / / [id number] documented as of this encounter Advance Directives [...] Power of Attor johann? No Care Teams Strapping Machine Tender Relationship Specialty Start Date End Date Lina Can MD [address] [place] [address] [place] [phone] PCP - General Family Medicine 08/06/22 documented as of this encounter
--- OUTSIDE RECORDS SUMMARY | 2024-06-04 04:05 | External Medical Summary | Summary of Care ---
Author Name Unknown Organization [facility] Address [address] [place] [address] Phone [phone] Care Team Providers Care Peoplesoft Consultant Name Role Phone Lina Can MD Primary Care Prov ider Reason for Visit * Reason Comments Chemotherapy Chemo/recheck Encounter Details Date Type Department Care Team (Late st Contact Info) Description 05/20/2024 10:15 AM EST Office Visit Hematology/Oncology [facility] [place] 200 [facility] [place] [address] Chandni Almonte MD 200 [facility] [place] [address] Malignant neoplasm of sigmoid colon (HCC)*; Metastasis [...] before bedtime. 60 Tablet 11 5 Active Eliquis 5 MG Oral Tablet [...] Sign Reading Time Taken Comments Blood Pressure 111/75 05/20/2024 9:57 AM EST Pulse 132 05/20/2024 9:57 AM EST Temperature 36.4 C (97.6 F) 05/20/2024 9:57 AM ES T Respiratory Rate - - Oxygen Saturation 98% 05/20/2024 9:57 AM EST Inhaled Oxygen Concentration - - Weight 46.3 kg (102 lb) 05/20/2024 9:57 AM EST Height - - Body Mass Index 19.27 11/15/2023 10:01 AM EDT documented in this [...] Assessment Author No 11/25/2022 5:16 PM EDT Mower, E albino, RN * Because of a physical, mental, [...] documented in this encounter Progress Notes * Suzy, Chandni Melchor MD - 05/20/2024 9:54 AM EST Outpatient Consult Note Data Source: Patient, Epic record. Data Source: Patient, Epic record. 05/20/2024 9:54 AM Nyasia Hdez [id number] 69 year old Patient Encounter: HEMATOLOGY/ONCOLOGY [facility] Cancer Diagnosis: - Cancer of sigmoid, status post Robotic-assisted, laparoscopic low anterior resection with coloproctostomy. Patient has stage pT4 pN2 disease. - Now she developed metastatic disease. Current Treatment: Lonsurf and Avastin. Previous Treatment: Palliative chemotherapy FOLFIRI plus Avastin for metastatic disease. She has disease progression onthe PET scan. She received total of 6 cycles of the combination. Received last chemotherapy on 03/21/2024 - Status post radiation therapy to the [...] invasion of the mass into her uterus. Mechanical And Auto Body Car Checker onc was consulted intraoperatively and a ALEXA [...] nodes positive for carcinoma (5/15). - Stage: [id number]. D. Urinary bladder, biopsy: - Low-grade papillary [...] Small vessel Perineural Invasion Not identified Tumor Swiss Score Intermediate (5-9) Type of Polyp in [...] probability of MSI-H) mmunotherapy Markers Tumor Mutational [place] (TMB): TMB Unit [place] 5.67 m/MB Low Microsatellite Instability Status (MSI): MSI Status 0 Stable Result Detail DNA Variants (SNV and indels): Gene Variant Tier Amino Acid Change Nucleotide Change Consequence Allele Frequency Sequencing Depth KRAS G12V Tier 1: Strong significance p.Zei21Qbu NM_033360.4: c.35G>T Missense Variant 28.1 % 1995 CDKN1B I582Hod*15 Tier 2: Potential significance p.[id number] NM_004064.5: c.326_327insT Frameshift Variant 29.5 % 987 TP53 K132R Tier 2: Potential significance p.Nrg428Qro NM_000546.6: c.395A>G Missense Variant 25.4 % 1991 [...] each side in 5 fraction. Interval History: Patient was admitted to the hospital on 05/09/2024 with increasing shortness of breath generalized edema swelling of the lower extremity and found to be acute CHF with AFib and rapid ventricular rate. Echocardiogram was done which revealed ejection fraction of 50-55% with normal LV wall motion and systolic function and urine was negative for proteins. Patient was treated with the amiodarone drip a nd finally converted to sinus rhythm. Patient is following Cardiology. Patient started Lonsurf on 05/07/2024 and currently on hold because of the admission in the hospital with CHF. Overall clinically she is feeling better. She is complaining of pain in the left shoulder area. Currently she is receiving radiation therapy to the pelvic area. LABS/IMAGING: Results for orders placed or performed in visit on 01/27/25 MAGNESIUM Result Value Ref Range Magnesium 2.3 1.5 - 2.6 mg/dL COMPREHENSIVE METABOLIC PANEL Result Value Ref Range BUN 10 6 - 20 mg/dL CREATININE 0.4 (L) 0.5 - 1.0 mg/dL EGFR >90 >=60 mL/min SODIUM 133 (L) 135 - 146 mmol/L POTASSIUM 4.0 3.5 - 5.1 mmol/L CHLORIDE 97 (L) 98 - 107 mmol/L CO2 23 22 - 32 mmol/L ANION GAP 13 7 - 15 mmol/L GLUCOSE 120 70 - 120 mg/dL Albumin 3.5 (L) 3.8 - 5.0 g/dL AST 34 10 - 35 U/L Alkaline Phosphatase 229 (H) 35 - 130 U/L Bilirubin, Total 0.5 <=1.2 mg/dL CALCIUM 8.8 8.4 - 10.2 mg/dL Protein 7.3 6.0 - 8.3 g/dL ALT 27 10 - 35 U/L URINALYSIS, REFLEX TO MICROSCOPIC Result Value Ref Range Color, Urine Yellow Light Yellow, Yellow, Dark Yellow Clarity, Urine Slightly Cloudy (A) Clear Glucose, Urine Negative Negative mg/dL Bilirubin, Urine Negative Negative Ketone, Urine Negative Negative mg/dL Specific [place], Urine 1.010 1.003 - 1.030 Blood, Urine Negative Negative pH, Urine 5.5 5.0 - 7.5 Units Protein, Urine Trace (A) Negative mg/dL Urobilinogen, Urine 1.0 0.2, 1.0 mg/dL Nitrite, Urine Negative Negative Esterase, Urine Moderate (A) Negative PHOSPHORUS Result Value Ref Range Phosphorus 2.4 (L) 2.5 - 4.8 mg/dL CBC Result Value Ref Range WBC 8.27 4.00 - 10.80 K/uL RBC 3.41 3.85 - 5.15 M/uL HGB 10.2 (L) 12.0 - 15.3 g/dL HCT 33.8 (L) 36.0 - 45.2 % MCV 99.1 81.5 - 97.5 fL MCH 29.9 27.0 - 34.0 pg MCHC 30.2 32.0 - 36.0 g/dL RDW 15.6 11.5 - 15.5 % PLT 184 140 - 400 K/uL MPV 10.6 6.6 - 11.1 fL DIFFERENTIAL, AUTOMATED Result Value Ref Range WBC 8.27 4.00 - 10.80 K/uL Neutrophils % 77.2 (H) 40.0 - 75.0 % Lymphocytes % 15.1 (L) 18.0 - 42.0 % Monocytes % 5.7 1.0 - 11.0 % Eosinophils % 1.5 0.0 - 6.0 % Basophils % 0.5 0.0 - 2.0 % Absolute Neutrophils 6.39 1.80 - 7.70 K/uL Absolute Lymphocytes 1.25 1.00 - 4.80 K/ul Absolute Monocytes 0.47 0.00 - 1.10 K/uL Absolute Eosinophils 0.12 0.00 - 0.70 K/uL Absolute Basophils 0.04 0.00 - 0.20 K/uL MICROSCOPIC EXAM, URINE Result Value Ref Range RBC, Urine 0-2 0 - 2 /HPF WBC, Urine 30-49 (A) 0 - 2 /HPF Bacteria, Urine 26-50 (A) 0 - 25 /HPF She had blood test done today which shows WBC count of 8.05, hemoglobin 10.6 and platelet count 163. Creatinine is 0.5 and the rest of the electrolytes are in stable in acceptable range, AST was 38 with normal bilirubin. REVIEW OF SYSTEMS: General: No Fever, chills, night sweats HEENT: No change in visual acuity, blurred [...] Genitourinary: Denies Hematuria or dysuria Musculoskeletal: Complaining of pain specially in the left shoulder area Psychiatric: No vegetative signs of depression [...] by mouth in the morning. 30Tablet 1 traMADol HCl 50 MG Oral Tablet [...] tablets (30 mg) before bedtime on days -5 and - of 28-day cycle. Take within [...] as needed for Nausea. 30 Tablet 1 Amiodarone HCl 200 MG Oral Tablet (Cordarone) Take 1 Tablet by mouth 2 times a day with morning andevening meals. Furosemide 20 MG Oral Tablet (Lasix) Take 1 Tablet by mouth in the morning. Magnesium Oxide -Mg Supplement 500 MG Oral Capsule Take 1 Capsule by mouth in the morning. Silver sulfADIAZINE 1 % External Cream (Silvadene) Apply topically to affected area daily. Apply toburn 50 g 1 No current facility-administered medications for this [...] progressive disease while receiving FOLFIRI plus Avastin. She was seen by Dr. Colmenares and started her on Lonsurf plus Avastin. She only took the medicine for 2 days and subsequently was admitted to the hospital with increasing shortness of breath, generalized weakness and edema and swelling of the lower extremity. She was found to have AFib with a repeat ventricular heart rate in CHF. She was treated with the amiodarone infusion and Lasix with improvement. Now she is feeling better with decreased swelling and improvement in the shortness of breath. Her room air O2 saturation is 98%. Currently she is receiving radiation therapy to the left pelvis area. She is complaining of pain inthe left shoulder area. Discussed with Dr. Pena to consider radiation therapy to the left shoulder area for the pain control and improvement in the range of motion. He agreed for palliative radiation therapy to this area. Discussed with the patient and daughter about diagnosis and prognosis reviewed all the available blood test result and PET scan finding with them. I also again showed them the radiology images of thePET scan. Patient has incurable disease with overall prognosis. While she is on the radiation therapy, I will continue to follow her treatment. PLAN: Continue hold Lonsurf and Avastin. She will return clinic for follow-up in 2 weeks. The patient voiced understanding of all [...] Nursing Notes * Yanelis Orozco CMA - 05/20/2024 9:58 AM EST Patient identifed by name and birthdate Do you have any concerns about pain management for today's visit? Yes. Patient instructed to discuss pain concerns with provider during the visit today Living Will or Advance Directive for Health Care as noted on the problem list. [facility] is a way you can talk to your provider on line through e-mail. Would you like to sign up? I can activate it for you? ALREADY ACTIVE Filed Vitals: 05/20/24 0957 BP: 111/75 Pulse: 132 Temp: 36.4 C (97.6 F) TempSrc: Tympanic SpO2: 98% Weight: 46.3 kg (102 lb) Patient was instructed to not get [...] 9:45 AM EST Pharmacy Pharmacy Hematology Oncology [address] [address] [facility], [facility] Hem/Onc [address] [place] [facility] [place] [address] Malignant neoplasm of sigmoid colon (HCC)* 05/30/2024 9:00 AM EST Telemedicine Palliative Medicine, [facility] [address] [place] [address] Alisia Loo CRNP [address] [place] [address] 06/03/2024 10:00 AM EST Laboratory Laboratory [facility] [address] [place] [phone] Nasreen, Lab Scenery [address] [place] [address] 06/03/2024 11:00 AM EST Office Visit Hematology/Oncology [facility] [place] [address] [place], [place] [phone] Alisia Birmingham CRNP [address] [place] [address] 06/03/2024 11:30 AM EST Hem/Onc Treatment Hematology/Oncology Treatment, [place] [address] [place], [place] [phone] Nasreen, Chair 3 Hem Onc Scenery [address] [place], [place] [address] 06/10/2024 9:45 AM EST Pharmacy Pharmacy Hematology Oncology [facility] [address] [facility], [place] [address] [facility], [facility] Hem/Onc [address] [place] [facility] [place] [address] 07/19/2024 11:30 AM EDT Office Visit Cardiology, [facility] 132 [facility] [place] [id number] Ciro Saini DO [address] [place] [address] 01/08/2025 2:20 PM EDT Office Visit Family Medicine [address] [place] [address] Lina Can MD [address] [place] [address] [place] [address] 02/03/2025 1:00 PM EDT Office Visit Gynecology/Obstetri [facility] [address] [place] [address] BackNelli bernard CRNP [address] [place] [address] Scheduled Orders Name Type Priority Associated Diagnoses Orde r Schedule CBC WITH WBC DIFFERENTIAL Lab Routine Malignant neoplasm of sigmoid colon (HCC) Metastasis to bone (HCC) Expected: 06/03/2024, Expires: 10/29/2024 COMPREHENSIVE METABOLIC PANEL Lab Routine Malignant neoplasm of sigmoid colon (HCC) Metastasis to bone (HCC) Expected: 06/03/2024, Expires: 10/29/2024 CEA Lab Routine Malignant neoplasm of sigmoid colon (HCC) Metastasis to bone (HCC) Expected: 06/03/2024, Expires: 10/29/2024 Health Maintenance Due Date Last Done Comments [...] this encounter Medical Devices Implanted Type Area Emergency Department Technician Device Identifier Shelf Expiration Date Model / Serial / Lot Power Port 8fr Sngl Lumen Plas - [id number] Implanted:Qty : 1 on 01/05/2023 by Jai Malcolm Jr., MD at [facility] Right: Chest CR BARD : PERIPHERAL VASCULAR [id number] 07/08/2024 [id number] / / [id number] documented as of this encounter Visit Diagnoses [...] Power of Attor johann? No Care Teams Peoplesoft Consultant Relationship Specialty Start Date End Date Lina Can MD [address] [place] [address] [place] [phone] PCP - General Family Medicine 08/06/22 documented as of this encounter
--- OUTSIDE RECORDS SUMMARY | 2024-06-04 04:06 | External Medical Summary | Summary of Care ---
Author Name Unknown Organization [facility] Address [address] [place] [address] Phone [phone] Care Team Providers Care Hands Parter Name Role Phone Lina Can MD Primary Care Prov ider Encounter Details Date Type Department Care Team (Late st Contact Info) Description 05/13/2024 Orders Only Cardiology, [facility] [address] [place] [address] Vinnie Curiel O, DO [address] [place] [address] Allergies Active Allergy Reactions Criticality Noted Date Comments Amoxicillin-Pot Clavulanate Nausea/vomiting 07/12/2022 GI upset Doxycycline Nausea/vomiting 07/12/2022 GI upset Oxaliplatin [place] High 07/27/2023 Shortness of breath Metoclopramide Hives 08/10/2022 documented as of this encounter (statuses as of 05/14/2024) Medications Acetaminophen 500 MG Oral Tablet (Tylenol [...] as of this encounter (statuses as of 05/14/2024) Active Problems Problem Noted Date Diagnosed Date [...] as of this encounter (statuses as of 05/14/2024) Immunizations No known immunizationsdocumented as of this [...] 10:00 AM EST Office Visit Palliative Medicine [facility] [address] [facility] [place] [address] Bianca Ruiz MD [address] [place] [address] 05/16/2024 9:45 AM EST Pharmacy Pharmacy Hematology Oncology [facility] [address] [place] [address] [facility], [facility] Hem/Onc [address] [place] [address] 05/20/2024 9:40 AM EST Laboratory Laboratory [facility] 200 [facility] [address] [place], Lab [address] [place], [place] [address] 05/20/2024 10:15 AM EST Office Visit Hematology/Oncology [facility] [place] [address] [place] [phone] Chandni Almonte MD [address] [place] [address] 05/20/2024 10:45 AM EST Hem[facility]c [facility] [address] [place] [phone] Nasreen, Chair 11 Hem Onc Scene 200 [facility] [place] [address] 07/19/2024 11:30 AM EDT Office Visit Cardiology, [facility] [address] [place] [address] Ciro Saini DO [address] [place] [address] 02/03/2025 1:00 PM EDT Office Visit Gynecology/Obstetrics [facility] [address] [place] [address] Nelli Farrell CRNP [address] [place] [address] Health Maintenance Due Date Last Done Comments [...] this encounter Medical Devices Implanted Type Area Paunch Trimmer Device Identifier Shelf Expiration Date Model / Serial / Lot Power Port 8fr Sngl Lumen Plas - [id number] Implanted:Qty : 1 on 01/05/2023 by Jai Malcolm Jr., MD at [facility] Right: Chest CR BARD : PERIPHERAL VASCULAR [id number] 07/08/2024 [id number] / / [id number] documented as of this encounter Procedures Procedure Name Priority Date/Time Associated Diagnosis Comments XR CHEST 1 VIEW Routine 05/12/2024 documented in this encounter Results * XR CHEST 1 VIEW (05/12/2024) Anatomical Region Laterality Modality Chest Other 05/12/2024 Vinnie Curiel DO RADIOLOGY (RAD GENERAL) Fin al Result documented in this encounter Advance Directives * [...] Power of Attor johann? No Care Teams Hands Parter Relationship Specialty Start Date End Date Lina Can MD [address] [place] [address] [place] [phone] PCP - General Family Medicine 08/06/22 documented as of this encounter
--- OUTSIDE RECORDS SUMMARY | 2024-06-04 04:06 | External Medical Summary | Summary of Care ---
Author Name Unknown Organization [facility] Address [address] [place] [address] Phone [phone] Care Team Providers Care Supervisor Post Wave Name Role Phone Lina Can MD Primary Care Prov ider Encounter Details Date Type Department Care Team (Late st Contact Info) Description 05/13/2024 Population Health External Data Unspecified Department Allergies Active Allergy Reactions Criticality Noted Date Comments Amoxicillin-Pot Clavulanate Nausea/vomiting 07/12/2022 GI upset Doxycycline Nausea/vomiting 07/12/2022 GI upset Oxaliplatin [place] High 07/27/2023 Shortness of breath Metoclopramide Hives 08/10/2022 documented as of this encounter (statuses as of 05/13/2024) Medications Acetaminophen 500 MG Oral Tablet (Tylenol [...] as of this encounter (statuses as of 05/13/2024) Active Problems Problem Noted Date Diagnosed Date [...] as of this encounter (statuses as of 05/13/2024) Immunizations No known immunizationsdocumented as of this [...] 10:00 AM EST Office Visit Palliative Medicine [facility] [place] [facility] [phone] Bianca Ruiz MD [address] [place] [address] 05/16/2024 9:45 AM EST Pharmacy Pharmacy Hematology Oncology [address] [address] [facility], [facility] Hem/Onc [facility] [place] [address] 05/20/2024 9:40 AM EST Laboratory Laboratory [facility] Nasreen [place] [address] [place] [address] Terrance Downey [place] [address] Jean [place] [facility] [place] [address] 05/20/2024 10:15 AM EST Office Visit Hematology/Oncology [facility] [place] [address] [place] [address] Chandni Almonte MD [address] [place] [address] 05/20/2024 10:45 AM EST Hem/Onc Treatment Hematology/Oncology Treatment, [place] [address] [place], [place] [phone] Nasreen, Chair 11 Hem Onc Scenery [address] [place] [address] 07/19/2024 11:30 AM EDT Office Visit Cardiology, [facility] [address] [place] [address] Ciro Saini DO [address] [place] [address] 02/03/2025 1:00 PM EDT Office Visit Gynecology/Obstetrics [facility] [address] [place] [address] Nelli Farrell CRNP [address] [place] [address] Health Maintenance Due Date Last Done Comments [...] encounter Medical Devices Implanted Type Area Rn Float Device Identifier Shelf Expiration Date Model / Serial / Lot Power Port 8fr Sngl Lumen Plas - [id number] Implanted:Qty : 1 on 01/05/2023 by Jai Malcolm Jr., MD at [facility] Right: Chest CR BARD : PERIPHERAL VASCULAR [id number] 07/08/2024 [id number] / / [id number] documented as of this encounter Advance Directives [...] of Attor johann? No Care Teams Supervisor Post Wave Relationship Specialty Start Date End Date Lina Can MD [address] [place] [address] [place] [address] PCP - General Family Medicine 08/06/22 documented as of this encounter
--- OUTSIDE RECORDS SUMMARY | 2024-06-04 04:06 | External Medical Summary | Summary of Care ---
Author Name Unknown Organization [facility] Address [address] [place] [address] Phone [phone] Care Team Providers Care Bladder Blower Name Role Phone Lina Can MD Primary Care Prov ider Reason for Referral * Evaluate & Treat - Unlimited Visits (Within 10 days (routine)) - Authorized Specialty Diagnoses / Procedures Referred By Contac t Referred To Contact HOME CARE / Home Care Diagnoses Cancer related pain Malignant neoplasm of sigmoid colon (HCC) Bianca Ruiz MD [address] [place] [address] Phone: tel: fax: Referral ID Status Reason Start Date Expiration Date Visits Requested Visits Authorized [id number] Authorized Specialty Services Required 05/15/[phone] Question Answer Referral Priority Within 10 days (routine) Where should this appointment be scheduled? Xi Comments Documentation of Aszi-an-Nyox Encounter Addendum Patient Name: Nyasia Hdez I certify that this patient is under my care and that I, or a nurse practitioner or physician's leasing assistant working with me, had a [id number] encounter that meets the physician dydb-hx-xwty encounter requirements with this patient on: 05/15/2024 [...] effort and are for medical reasons or baptist services or infrequently or of short duration when for other reason) because: Has metastatic cancer Physician Signature: Date of Signature: Physician Printed Name: Bianca Ruiz MD Reason for Visit * Reason Comments Follow Up Encounter Details Date Type Department Care Team (Late st Contact Info) Description 05/15/2024 10:00 AM EST Office Visit Palliative Medicine [facility] [address] [place] [address] Bianca Ruiz MD [address] [place] [address] Malignant neoplasm of sigmoid colon (HCC)*; [...] needed. You can contact our office at [phone], which is our clinic in [place], or you can message us on Souche. If you have an emergency outside of these hours, we recommend calling your primary care clinic, Oncology office, or going to the ER if you have a medical emergency. documented in this encounter Progress Notes * Bianca Ruiz MD - 05/15/2024 9:55 AM EST Palliative Medicine Outpatient Progress Note [facility] Palliative Medicine Outreach [address] [place] [address] Name: Nyasia Hdez Date: 05/15/2024 HPI: Nyasia [...] for pain relief. [facility]. She is scheduled for [...] External notes reviewed: - Reviewed notes from [facility] DC Summary on 05/14/24, she was [...] of separately billed services. Bianca Ruiz MD [facility] Palliative Medicine [phone] documented in this encounter Nursing Notes * [...] 9:45 AM EST Pharmacy Pharmacy Hematology Oncology [address] [address] [facility] Hem/Onc [facility] [place] [address] 05/20/2024 9:40 AM EST Laboratory Laboratory [facility] [address] [place] [phone] Terrance Downey [address] [place] [address] 05/20/2024 10:15 AM EST Office Visit Hematology/Oncology [facility] [address] [place] [address] Chandni Almonte MD [address] [place] [address] 05/20/2024 10:45 AM EST Hem/Onc Treatment Hematology/Oncology Treatment, [place] [address] [place], [place] [phone] Park, Chair 2 Hem Onc Scenery [address] [place] [address] 05/30/2024 9:00 AM EST Telemedicine Palliative Medicine, [facility] [address] [place] [address] Alisia Loo CRNP [address] [place] [address] 07/19/2024 11:30 AM EDT Office Visit Cardiology, [facility] [address] [place] [address] Ciro Saini DO [address] [place] [address] 02/03/2025 1:00 PM EDT Office Visit Gynecology/Obstetrics [facility] [address] [place] [address] Nelli Farrell CRNP [address] [place] [address] Scheduled Referrals Name Type Priority Associated Diagnoses [...] this encounter Medical Devices Implanted Type Area Tunnel Elastic Operator Zigzag Device Identifier Shelf Expiration Date Model / Serial / Lot Power Port 8fr Sngl Lumen Plas - [id number] Implanted:Qty : 1 on 01/05/2023 by Jai Malcolm Jr., MD at OR [facility] Right: Chest CR BARD : PERIPHERAL VASCULAR [id number] 07/08/2024 [id number] / / [id number] documented as of this encounter Visit Diagnoses [...] Power of Attor johann? No Care Teams Bladder Blower Relationship Specialty Start Date End Date Lina Can MD [address] [place] [address] [place] [phone] PCP - General Family Medicine 08/06/22 documented as of this encounter"
--- OUTSIDE RECORDS SUMMARY | 2024-06-04 04:06 | External Medical Summary | Summary of Care ---
Author Name Unknown Organization [facility] Address [address] [place] [address] Phone [phone] Care Team Providers Care Fuel Cell Technician Name Role Phone Lina Can MD Primary Care Prov ider Reason for Visit * Reason Onset Date Comments Advice 05/09/2024 Suzy Encounter Details Date Type Department Care Team (Late st Contact Info) Description 05/09/2024 Telephone Hematology/Oncology [facility] [place] [address] [place] [address] Services, Scheduling [address] [place] [address] Advice (Suzy) Allergies Active Allergy Reactions Criticality Noted Date Comments Amoxicillin-Pot Clavulanate Nausea/vomiting 07/12/2022 GI upset Doxycycline Nausea/vomiting 07/12/2022 GI upset Oxaliplatin Flushing High 07/27/2023 Shortness of breath Metoclopramide Hives 08/10/2022 documented as of this encounter (statuses as of 05/10/2024) Medications Acetaminophen 500 MG Oral Tablet (Tylenol [...] as of this encounter (statuses as of 05/10/2024) Active Problems Problem Noted Date Diagnosed Date [...] as of this encounter (statuses as of 05/10/2024) Immunizations No known immunizationsdocumented as of this [...] Telephone Encounter - Glo Drake OSA - 05/10/2024 8:19 AM EST Canceled per note * Telephone Encounter - Tereza Gray RN - 05/10/2024 7:33 AM EST Patient admitted. Scheduling: please cancel todays appt with Dr Almonte. Thanks! * Telephone Encounter - Tereza Gray RN - 05/09/2024 9:23 AM EST Spoke to Dr Almonte, called patient/ daughter back. They state that after call, they went to get her dressed and realized that her feet/ ankles are very swollen. They are on their way to the ER now for evaluation. Offered appt to see Dr Almonte tomorrow at 10:30am (per Dr Almonte ok to overbook)- patient has radiation at that time, but states that she can come after. Message sent to scheduling to add her. Reiterated with patient that she should hold lonsurf until advised by Dr Almonte to restart it- she verbalized understanding. MTM: FYI * Telephone Encounter - Tereza Gray RN - 05/09/2024 8:14 AM EST Called patient/ daughter. Patient experienced SOB and chest tightness yesterday morning after taking lonsurf, but then it got better. She experienced it again last night after taking lonsurf and it persisted through the night. Asked patient if she has experienced this before- she states that this happened for a bit after shetook her first dose of lonsurf yesterday morning, lasted about 4 hours. Occurred again last night for about 4-5 hours, still experiencing a bit now. Patients daughter states that patient took lonsurfaround 8:30pm and called her at 11pm to tell her that she was having a difficult time breathing. They called oncall provider but did not receive a call back. Advised that patient should NOT take lonsurf this morning. TT sent to Dr Almonte. * Telephone Encounter - Felicia Ramesh OSA - 05/09/2024 8:07 AM EST Daughter, Isabel is calling because the pt has been experiencing SOB since last night and chest tightness. She started to experience this after taking her 1st dose of the new medication. The on callprovider was paged, but never called her. Please call at [phone] documented in this encounter Plan of Treatment Upcoming Encounters Date Type Department Care Team (Late st Contact Info) Description 05/15/2024 10:00 AM EST Office Visit Palliative Medicine [facility] [address] [place] [facility] [phone] Bianca Ruiz MD [address] [place] [address] [place] [address] 05/16/2024 9:45 AM EST Pharmacy Pharmacy Hematology Oncology [facility] [address] [place] [address] [facility] Hem/Onc [address] [place] [address] 05/20/2024 9:40 AM EST Laboratory Laboratory [facility] [address] [place] [phone] Nasreen, Lab [address] [place], [place] [address] 05/20/2024 10:15 AM EST Office Visit Hematology/Oncology [facility] [address] [place], [place] [phone] Chandni Almonte MD [address] [place], [place] [address] 05/20/2024 10:45 AM EST Hem[facility] [address] [facility], [place] [phone] [place], Chair [address] Hem On[address] [place], [place] [address] 07/19/2024 11:30 AM EDT Office Visit Cardiology, [facility] [address] [place] [address] Ciro Saini, [address] [place] [address] 02/03/2025 1:00 PM EDT Office Visit Gynecology/Obstetrics [facility] [address] [place] [address] [place], Nelli Fenton, PROPERTY PRESERVATION SPECIALIST [address] [place] [address] Health Maintenance Due Date Last Done Comments [...] Medical Devices Implanted Type Area Director Of Manufacturing Operations Device Identifier Shelf Expiration Date Model / Serial / Lot Power Port 8fr Sngl Lumen Plas - [id number] Implanted:Qty : 1 on 01/05/2023 by Jai Malcolm Jr., MD at OR [facility] Right: Chest CR BARD : PERIPHERAL VASCULAR [id number] 07/08/2024 [id number] / / [id number] documented as of this encounter Advance Directives [...] of Attor johann? No Care Teams Fuel Cell Technician Relationship Specialty Start Date End Date Lina Can MD [address] [place] [address] [place] [id number] PCP - General Family Medicine 08/06/22 documented as of this encounter
[2024-06-04] MEDS: ACETAMINOPHEN 325 MG TAB PO PRN (04:09)
[2024-06-04] MEDS ORDERED: BUTT PASTE (ZINC OXIDE 16%) 171 APPLN/57 GM JAR EXT PRN (05:39)
[2024-06-04] MEDS: ALBUMIN 25% 12.5 GM/50 ML VIAL IV ONE (06:07)
[2024-06-04] MEDS: POTASSIUM CHLORIDE CRTAB 20 MEQ TABCR PO SCH (06:08)
[2024-06-04] MEDS: DIGOXIN 250 MCG in SYRINGE 9 ML IV STA (06:08)
[2024-06-04] MEDS: AMIODARONE 200 MG TAB PO ONE (06:09)
[2024-06-04 06:27] LABS: Albumin Level 2.9 gm/dl (3.4-5.0); BUN Creatinine Ratio 36.6 (10-20); Bilirubin,Total 0.5 mg/dl (0.2-1.0); Calcium 8.2 mg/dl (8.6-10.3); Potassium 4.2 mmol/L (3.5-5.1); Total Protein 5.9 gm/dl (6.0-8.3)
[2024-06-04] MEDS: BUTT PASTE (ZINC OXIDE 16%) 171 APPLN/57 GM JAR EXT STA (06:34)
[2024-06-04 06:40] LABS: INR 1.3 (0.9-1.1); Prothrombin Time 13.9 Seconds (9.0-12.0)
[2024-06-04 06:47] LABS: Ferritin 1243.8 ng/ml (8-388)
[2024-06-04 07:23] LABS: Hematocrit (blood only) 25.7 % (37.0-47.0); Hemoglobin 8.2 g/dl (12.0-16.0); Mean Corpuscular Hemoglobin 27.5 pg (25.0-34.0); Mean Corpuscular Hgb Conc 31.9 g/dL (32.0-36.0); Mean Corpuscular Volume 86.2 fL (80.0-100.0); Platelet Count 18 K/uL (130-400); RDW Coefficient of Variation 17.2 % (11.5-14.5); RDW Standard Deviation 54.5 fL (36.4-46.3); Red Blood Count 2.98 M/uL (4.20-5.40)
[2024-06-04] MEDS ORDERED: AMIODARONE 200 MG TAB PO SCH (08:00)
[2024-06-04] MEDS ORDERED: FUROSEMIDE 40 MG/4 ML VIAL IV SCH (09:00)
[2024-06-04] MEDS ORDERED: POTASSIUM CHLORIDE CRTAB 20 MEQ TABCR PO SCH (09:00)
[2024-06-04] MEDS: MAGNESIUM OXIDE 400 MG TAB PO SCH (09:07)
[2024-06-04] MEDS: FUROSEMIDE INJ 20 MG/2 ML VIAL IV SCH (09:07)
[2024-06-04] MEDS: REMDESIVIR 200 MG in SODIUM CHLORIDE 0.9% 210 ML IV STA (10:59)
--- NOTE | 2024-06-04 11:51 | Cardiology Consultation ---
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 Patient not frankly aware of tachyarrhythmias or atrial fibrillation when present. Began on amiodarone at last discharge. Presents now with dyspnea multifactorial, pancytopenia atrial fibrillation with elevated ventricular rates 1. Atrial fibrillation with elevated ventricular response rates. Patient unable to sense tachyarrhythmias but elevated heart rates still present though improved somewhat with IV diltiazem. This however was resulted in with diuretics relative hypotension. Amiodarone and beta-blockers being held due to blood pressure. Will discussed with nursing staff to resume metoprolol tartrate at 25 every 6 first dose now. Discontinue IV diltiazem, amiodarone. Currently with anticoagulation contraindications. Concern regarding amiodarone resulting conversion as well as possible adverse reaction with recent start 2. Pancytopenia/thrombocytopenia: Stop apixaban given significant thrombocytopenia. Noted new medication of amiodarone since last admission will stop as above. Suspect not the culprit of hematologic disorder however 3. Pedal edema likely secondary to hypoalbuminemia. Current exam without pulmonary edema or volume overload Patient critically ill History of Present Illness Reason for Consultation: Atrial fibrillation with elevated ventricular sponsor rate [facility]ing [facility] Hardy[facility] Attending Physician: Tyrone Galeana MD History of Present Illness Patient is a very complex 69-year-old female being treated for metastatic colon carcinoma. Completed last course of chemotherapy in April. Currently receiving palliative radiation therapy to hip and shoulder. Underlying medical issues include paroxysmal atrial fibrillation with recent episode observed during hospitalization resulting in addition of amiodarone to regimen. Patient presented to the emergency room with increasing dyspnea. Found to be in atrial fibrillation with elevated ventricular response rates. Begun on IV diltiazem last evening but with only mild slowing of atrial fibrillation rates. Blood pressure now depressed Oral amiodarone and oral metoprolol ordered but has not received due to relative hypotension. Laboratory studies notable Positive COVID Profound pancytopenia/thrombocytopenia. Marked hypoalbuminemia Patient notes significant epistaxis earlier today while eating Denies fevers chills or sick exposures. No productive cough Generally faithful with medications. Appetites been diminished. Weight up slightly in the last weeks time. With mild pedal edema. Chest x-ray and CT of chest without significant edema. Did receive single dose of IV furosemide in ER Allergies Allergy/AdvReac Type Severity Reaction Status Date / Time doxycycline Allergy Intermediate Made me Unverified 06/03/24 19:38 feel worse metoclopramide [From Reglan] Allergy Intermediate Hives Unverified 06/03/24 19:38 Home Medications Medication Instructions Recorded Confirmed Type metoprolol succinate 25 mg capsule 25 mg PO QAM 11/14/23 06/03/24 History sprinkle, ext. release 24 hr morphine 15 mg tablet,extended 15 mg PO AMHS 04/25/24 05/27/24 History release (MS Contin) oxycodone 5 mg tablet 5 mg PO Q4H PRN Breakthrough Pain, 04/25/24 06/03/24 History Moderate acetaminophen 500 mg tablet 500 mg PO Q6H PRN Breakthrough Pain 05/09/24 06/03/24 History apixaban 5 mg tablet (Eliquis) 5 mg PO AMHS 05/09/24 06/03/24 History ondansetron HCl 8 mg tablet 8 mg PO DIRECTED PRN n/v 05/09/24 06/03/24 History trifluridine 15 mg-tipiracil 6.14 1 tab PO DIRECTED 05/09/24 06/03/24 History mg tablet (Lonsurf) trifluridine 20 mg-tipiracil 8.19 1 tab PO DIRECTED 05/09/24 06/03/24 History mg tablet (Lonsurf) amiodarone 200 mg tablet See Taper PO BIDM #120 tabs 05/12/24 06/03/24 Rx furosemide 20 mg tablet (Lasix) 20 mg PO DAILY #60 tabs 05/12/24 06/03/24 Rx magnesium oxide 400 mg (241.3 mg 400 mg PO QAM 30 days #30 tabs 05/12/2405/12 Rx magnesium) tablet potassium chloride 20 mEq 20 meq PO DAILY 30 days #30 tabs 05/12/24 06/03/24 Rx tablet,extended release(part/cryst) Patient History Medical History Breast cancer Surgical History History of bowel resection Hx of cystoscopy S/P total hysterectomy and BSO (bilateral salpingo-oophorectomy) H/O right mastectomy Family History Mother Cancer breast x 2 25 yrs apart Aunt Cancer multiple aunts with different forms of cancer Social History Smoking Status: Current every day smoker Tobacco Type: Cigarettes Second Hand Exposure: No; Do You Dip or Chew Tobacco: No; Hx Alcohol Use: No Hx Substance Use: No Preferred Language: Portuguese Communication Ability: Effective Visual Impairment: No Limitations Hearing Ability: Normal Bevel Operator Required: No Beliefs That Will Affect Care: None Current Living Situation: Family current occupational status: retired Feels Safe at Home: Yes Diet: regular during the past year weight has: remained stable Assistive Devices: Cane, Denture - Upper, Denture - Lower and Glasses Review of Systems Review of Systems: All systems reviewed & are unremarkable except as noted in HPI & below Physical Exam Constitutional: + ill appearing Eyes: PERRL, conjunctivae normal, anicteric sclerae Neck: trachea midline, no thyromegaly Respiratory: Auscultation: + diminished lung sounds; no crackles and no wheezes Mild rhonchi with forced cough Cardiovascular: Rate/Rhythm: + tachycardic and + irregularly irregular Heart Sounds: no murmur Vessels: no JVD Extremities: + edema (Trivial Pedal) Gastrointestinal (Abdomen): Percussion/Palpation: abdomen soft; abdomen nontender Results & Data Vital Signs (Past 12 Hours) Vital Signs Temp Pulse Pulse Resp BP BP Pulse Ox 06/04/24 10:41 110 H 18 93/62 L 96 06/04/24 09:00 117 H 16 115/72 95 06/04/24 07:30 95 H 16 98/68 L 94 06/04/24 07:00 118 H 118/70 06/04/24 06:59 104 H 06/04/24 06:45 121 H 24 114/73 97 06/04/24 06:30 107 H 17 119/79 95 06/04/24 06:15 109 H 2 L 99/69 L 94 06/04/24 06:08 110 H 02/25/25 06:01 115 H 22 84/46 L 98 06/04/24 05:54 36.8 C 110 H 20 96/72 L 95 06/04/24 05:21 108 H 19 95 06/04/24 05:00 125 H 22 93/58 L 96 06/04/24 04:45 112 H 22 99/59 L 93 06/04/24 04:15 122 H 15 84/65 L 97 06/04/24 04:12 122 H 20 96/53 L 100 06/04/24 03:00 112 H 20 99/60 L 94 06/04/24 02:45 115 H 18 89/53 L 94 06/04/24 02:30 124 H 18 92/56 L 94 06/04/24 02:15 107 H 22 93/63 L 95 06/04/24 02:00 113 H 22 91/62 L 95 06/04/24 01:45 113 H 22 94/60 L 95 06/04/24 01:45 97 H 18 94/60 L 99 06/04/24 01:30 112 H 16 95/55 L 99 06/04/24 01:16 96 H 20 66/35 L 95 06/04/24 01:00 115 H 20 79/57 L 95 06/04/24 00:31 104 H 16 74/63 L 94 06/04/24 00:22 106 H 16 86/65 L 95 06/04/24 00:17 107 H 20 79/52 L 94 06/03/24 23:55 100 H 20 96/56 L 96 O2 Del Method 06/04/24 10:41 Room Air 06/04/24 09:00 Room Air 06/04/24 07:30 Room Air 06/04/24 07:00 06/04/24 06:59 06/04/24 06:45 06/04/24 06:30 06/04/24 06:15 06/04/24 06:08 06/04/24 06:01 06/04/24 05:54 Room Air 06/04/24 05:21 06/04/24 05:00 06/04/24 04:45 06/04/24 04:15 06/04/24 04:12 06/04/24 03:00 06/04/24 02:45 06/04/24 02:30 06/04/24 02:15 06/04/24 02:00 06/04/24 01:45 06/04/24 01:45 06/04/24 01:30 06/04/24 01:16 Room Air 06/04/24 01:00 06/04/24 00:31 06/04/24 00:22 06/04/24 00:17 Room Air 06/03/24 23:55 Laboratory Results Laboratory Results - last 24 hr 06/03/24 06/03/24 06/03/24 18:35 18:35 18:35 WBC 2.25 L RBC 3.30 L Hgb 9.2 L Hct 28.7 L MCV 87.0 MCH 27.9 MCHC 32.1 RDW Std Deviation 55.1 H RDW Coeff of Katina 17.4 H Plt Count 34 L MPV 11.0 Reticulocyte % (Auto) 2.46 H Cancelled Reticulocyte # 0.080 Cancelled Neutrophils % (Manual) 36 Lymphocytes % (Manual) 42 Monocytes % (Manual) 16 Eosinophils % (Manual) 1 Metamyelocytes % (Man) 2 Myelocytes % (Man) 3 Neutrophils # (Manual) 0.81 L Total Absolute Neuts 0.81 L* Lymphocytes # (Manual) 0.95 L Total Abs Lymphocytes 0.95 L Monocytes # (Manual) 0.36 Eosinophils # (Manual) 0.02 Metamyelocytes # (Man) 0.05 H Myelocytes # (Manual) 0.07 H RBC Morphology Unremarkable Peripher Smr Path Cons Haptoglobin PT INR APTT PTT Ratio Fibrinogen D-Dimer Sodium Potassium Chloride Carbon Dioxide Anion Gap BUN Creatinine Est Cr Clr Drug Dosing eGFR BUN/Creatinine Ratio Glucose Osmolality Calcium Magnesium Ferritin Total Bilirubin Direct Bilirubin AST ALT Alkaline Phosphatase Lactate Dehydrogenase Troponin I High Sens B-Natriuretic Peptide Total Protein Albumin Globulin Albumin/Globulin Ratio Lipase Vitamin B12 Folate Procalcitonin Urine Color Urine Appearance Urine pH Ur Specific [place] Urine Protein Urine Glucose (UA) Urine Ketones Urine Blood Urine Nitrite Urine Bilirubin Urine Urobilinogen Ur Leukocyte Esterase Adenovirus (PCR) B. pertussis DNA (PCR) B.parapertussis DNA PCR C. pneumoniae DNA (PCR) Coronavirus OC43 (PCR) Coronavirus HKU1 (PCR) Coronavirus 229E (PCR) SARS-CoV-2 (PCR) Coronavirus NL63 (PCR) Human Metapneumovir PCR Influenza Type A (PCR) Influenza Type B (PCR) M. pneumoniae (PCR) Parainfluenza 1 (PCR) Parainfluenza 2 (PCR) Parainfluenza 3 (PCR) Parainfluenza 4 (PCR) RSV (PCR) Entero/Rhino (PCR) 06/03/24 06/03/24 06/03/24 18:35 21:55 22:05 WBC RBC Hgb Hct MCV MCH MCHC RDW Std Deviation RDW Coeff of Katina Plt Count MPV Reticulocyte % (Auto) Reticulocyte # Neutrophils % (Manual) Lymphocytes % (Manual) Monocytes % (Manual) Eosinophils % (Manual) Metamyelocytes % (Man) Myelocytes % (Man) Neutrophils # (Manual) Total Absolute Neuts Lymphocytes # (Manual) Total Abs Lymphocytes Monocytes # (Manual) Eosinophils # (Manual) Metamyelocytes # (Man) Myelocytes # (Manual) RBC Morphology Peripher Smr Path Cons Cancelled Haptoglobin PT 13.7 H INR 1.3 H APTT 58 H PTT Ratio 2.2 Fibrinogen D-Dimer Sodium 125 L Potassium 4.6 Chloride 92 L Carbon Dioxide 25 Anion Gap 8 BUN 14 Creatinine 0.38 L Est Cr Clr Drug Dosing 100.4 eGFR 108.40 BUN/Creatinine Ratio 36.8 H Glucose 98 Osmolality 264 L Calcium 8.6 Magnesium 2.0 Ferritin Total Bilirubin Direct Bilirubin AST ALT Alkaline Phosphatase Lactate Dehydrogenase 554 H Troponin I High Sens 6.7 B-Natriuretic Peptide 957 H Total Protein Albumin Globulin Albumin/Globulin Ratio Lipase 6 L Vitamin B12 Folate Procalcitonin 0.18 Urine Color Yellow Urine Appearance Clear Urine pH 6.0 Ur Specific [place] 1.004 Urine Protein Negative Urine Glucose (UA) Negative Urine Ketones Negative Urine Blood Negative Urine Nitrite Negative Urine Bilirubin Negative Urine Urobilinogen Negative Ur Leukocyte Esterase Negative Adenovirus (PCR) Not Detected B. pertussis DNA (PCR) Not Detected B.parapertussis DNA PCR Not Detected C. pneumoniae DNA (PCR) Not Detected Coronavirus OC43 (PCR) Not Detected Coronavirus HKU1 (PCR) Not Detected Coronavirus 229E (PCR) Not Detected SARS-CoV-2 (PCR) DETECTED A Coronavirus NL63 (PCR) Not Detected Human Metapneumovir PCR Not Detected Influenza Type A (PCR) Not Detected Influenza Type B (PCR) Not Detected M. pneumoniae (PCR) Not Detected Parainfluenza 1 (PCR) Not Detected Parainfluenza 2 (PCR) Not Detected Parainfluenza 3 (PCR) Not Detected Parainfluenza 4 (PCR) Not Detected RSV (PCR) Not Detected Entero/Rhino (PCR) Not Detected 06/03/24 06/04/24 22:45 05:32 WBC 1.80 L RBC 2.98 L Hgb 8.2 L Hct 25.7 L MCV 86.2 MCH 27.5 MCHC 31.9 L RDW Std Deviation 54.5 H RDW Coeff of Katina 17.2 H Plt Count 18 L* MPV Reticulocyte % (Auto) Reticulocyte # Neutrophils % (Manual) Lymphocytes % (Manual) Monocytes % (Manual) Eosinophils % (Manual) Metamyelocytes % (Man) Myelocytes % (Man) Neutrophils # (Manual) Total Absolute Neuts Lymphocytes # (Manual) Total Abs Lymphocytes Monocytes # (Manual) Eosinophils # (Manual) Metamyelocytes # (Man) Myelocytes # (Manual) RBC Morphology Peripher Smr Path Cons Haptoglobin Pending PT 13.9 H INR 1.3 H APTT PTT Ratio Fibrinogen 850 H D-Dimer 1130 H* Sodium 128 L 128 L Potassium 3.9 4.2 Chloride 93 L 95 L Carbon Dioxide 28 28 Anion Gap 7 5 BUN 14 15 Creatinine 0.40 L 0.41 L Est Cr Clr Drug Dosing 95.3 93.0 eGFR 107.07 106.44 BUN/Creatinine Ratio 35.0 H 36.6 H Glucose 115 H 110 H Osmolality Calcium 8.3 L 8.2 L Magnesium 2.0 Ferritin 1243.8 H Total Bilirubin 0.5 0.5 Direct Bilirubin 0.1 AST 22 27 ALT 16 18 Alkaline Phosphatase 159 H 163 H Lactate Dehydrogenase Troponin I High Sens 6.4 B-Natriuretic Peptide Total Protein 6.1 5.9 L Albumin 3.1 L 2.9 L Globulin 3.0 Albumin/Globulin Ratio 1.0 Lipase Vitamin B12 197 Folate 10.16 Procalcitonin Urine Color Urine Appearance Urine pH Ur Specific [place] Urine Protein Urine Glucose (UA) Urine Ketones Urine Blood Urine Nitrite Urine Bilirubin Urine Urobilinogen Ur Leukocyte Esterase Adenovirus (PCR) B. pertussis DNA (PCR) B.parapertussis DNA PCR C. pneumoniae DNA (PCR) Coronavirus OC43 (PCR) Coronavirus HKU1 (PCR) Coronavirus 229E (PCR) SARS-CoV-2 (PCR) Coronavirus NL63 (PCR) Human Metapneumovir PCR Influenza Type A (PCR) Influenza Type B (PCR) M. pneumoniae (PCR) Parainfluenza 1 (PCR) Parainfluenza 2 (PCR) Parainfluenza 3 (PCR) Parainfluenza 4 (PCR) RSV (PCR) Entero/Rhino (PCR)
[2024-06-04] MEDS: METOPROLOL TARTRATE 25 MG TAB PO ONE (12:45)
--- NOTE | 2024-06-04 15:44 | Electrocardiogram Report ---
Test Reason : Blood Pressure : */* mmHG Vent. Rate : 142 BPM Atrial Rate : * BPM P-R Int : * ms QRS Dur : 82 ms QT Int : 282 ms P-R-T Axes : * 67 83 degrees QTcB Int : 433 ms Atrial fibrillation with rapid ventricular response Nonspecific ST abnormality Abnormal ECG When compared with ECG of 12-May-2024 09:11, Atrial fibrillation has replaced Sinus rhythm Vent. rate has increased by [address] now depressed in Inferior leads T wave inversion no longer evident in Anterior leads Confirmed by Joni Gilbert ([id number]) on 06/04/2024 3:44:14 PM Referred By: REFERRED SELF Confirmed By: Joni Gilbert
--- NOTE | 2024-06-04 17:43 | Hospitalist Progress Note ---
Date of Service June 04, 2024 Assessment & Plan (1) Shortness of breath: Plan: -2/2 COVID based on testing -CTA PE less consistent with HF exaccerbation Plan: -start remdesevir -prn nebulizers, incentive spirometry ordered -supportive care (2) Paroxysmal atrial fibrillation: Plan: -noted to be in RVR on arrival -patient asymptomatic -has not missed doses of amiodarone -has recent checked TSH WNL Plan: -consult cardiology in AM, appreciate recs, discussed recs with cardiology -continue eliquis -continue metoprolol (3) CHF (congestive heart failure): Plan: -patient is 3Kg above dry weight per trend, base weight is around 47kg -patient has elevated BNP, trace pitting edema -however, notable hyponatremia to 125 -given lasix 40 IV x1 in ED Plan: -trend BMP -hold off on additional diuresis until see Na trend (4) Hyponatremia: Plan: -unclear etiology at this time, could be 2/2 heart failure vs. dehydration vs. less likely SIADH, nausea/vomiting, medication side effects -given lasix x1 in ED Plan: -trend BMP daily -hold further lasix at this time (5) 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: Plan: -see above, has been through extensive systemic therapies -for past 2 weeks ECOG has been 3 sliding to 4 -plan for further therapies on Monday, radiation tomorrow Plan: -discuss with radiation oncology in morning -will discuss with palliative care and oncology providers -may benefit from course of steroids to boost functional status, but given immunotherapy will hold off for now -hematology consult, appreciate recs (6) Pain from bone metastases: Plan: -continue home oxycontin, oxycodone, prn dilaudid for breakthrough (7) Pancytopenia: Plan: -acute pancytopenia, notable new leukopenia, thrombocytopenia, Hgb slightly lower than normal -unclear etiology, concern for bone marrow suppression from signifigant metastatic disease vs. delayed immunotherapy/chemotherapy/radiation side effect vs. myelofibrosis/ aplastic anemia vs. less likely nutrition deficincies, secondary malignancy, DIC, TTP, HUS -could be 2/2 amiodarone Plan: -supportive care, likely 2/2 infection/amiodarone (stopped) vs. chemotehrapy, discussed with oncology Plan Feeding/fluids: heart healthy Analgesia: oxycontin/oxycodone Sedation: na Thromboprophylaxis: eliquis Head up position: na Ulcer prophylaxis: na Glycemic control: na Spontaneous breathing tr naial: na Bowel care: miralax prn Indwelling catheter removal: na Deescalation of antibiotics: na I spent a total of 55 minutes in direct patient care, including [id number] time with the patient and/or family, reviewing medical records, ordering and reviewing diagnostic tests, and coordinating care with other healthcare providers. This time includes: history taking, physical examination, medical decision making, counseling, ECG interpretation, imaging interpretation, lab interpretation, orders, and education, excluding time spent in the performance of separately billed services. Admission and Anticipated Discharge Date Admission Date: June 03, 2024 Subjective Patient seen and examined at bedside. Patient doing okay today. She would like to go home, however she is aware she needs to stay in the hospital given her dropping blood counts. Is having small intermittant nose bleeds but she feels they are managable. Review of Systems Review of Systems: CONSTITUTIONAL: Patient denies fevers, chills, sweats and weight changes. EYES: Patient denies any visual symptoms. EARS, NOSE, AND THROAT: intermittant light nose bleed CARDIOVASCULAR: Patient denies chest pains, palpitations, orthopnea and paroxysmal nocturnal dyspnea. RESPIRATORY: SOB, cough GI: No nausea, vomiting, diarrhea, constipation, abdominal pain, hematochezia or melena. : No urinary hesitancy or dribbling. No nocturia or urinary frequency. No abnormal urethral discharge. MUSCULOSKELETAL: No myalgias or arthralgias. NEUROLOGIC: No chronic headaches, no seizures. Patient denies numbness, tingling or weakness. PSYCHIATRIC: Patient denies problems with mood disturbance. No problems with anxiety. ENDOCRINE: No excessive urination or excessive thirst. DERMATOLOGIC: Patient denies any rashes or skin changes. Physical Exam Physical Exam: Gen: A&O 3 NAD, cachexia noted HEENT: NCAT, EOMI, not icteric. External ears normal. No rhinorrhea. Moist mucous membranes. Neck: Supple, full range of motion, no observable masses, No meningeal sign. Lungs: No Respiratory distress. CV: irregular rhythm, regular rate Abdomen: Soft, nondistended, No rebound tenderness. MSK: No joint swelling, no redness. 1+ pitting edema to group home up calf bilaterally improved from yesterday Skin: No rashes, petechiae, lesions. Normal color per patient. Neuro: Normal Gait, Grossly intact. Psych: Appropriate for situation. Results & Data Results & Data Vital Signs (Past 12 Hours) Vital Signs Temp Pulse Pulse Resp BP BP Pulse Ox 06/04/24 17:03 98 H 06/04/24 16:00 113 H 19 98/60 L 96 06/04/24 14:00 115 H 19 114/62 92 06/04/24 12:39 97 H 18 104/70 92 06/04/24 10:41 110 H 18 93/62 L 96 06/04/24 09:00 117 H 16 115/72 95 06/04/24 07:30 95 H 16 98/68 L 94 06/04/24 07:00 118 H 118/70 06/04/24 06:59 104 H 06/04/24 06:45 121 H 24 114/73 97 06/04/24 06:30 107 H 17 119/79 95 06/04/24 06:15 109 H 2 L 99/69 L 94 06/04/24 06:08 110 H 06/04/24 06:01 115 H 22 84/46 L 98 06/04/24 05:54 36.8 C 110 H 20 96/72 L 95 O2 Del Method 06/04/24 17:03 06/04/24 16:00 Room Air 06/04/24 14:00 Room Air 06/04/24 12:39 Room Air 06/04/24 10:41 Room Air 06/04/24 09:00 Room Air 06/04/24 07:30 Room Air 06/04/24 07:00 06/04/24 06:59 06/04/24 06:45 06/04/24 06:30 06/04/24 06:15 06/04/24 06:08 06/04/24 06:01 06/04/24 05:54 Room Air Laboratory Results -personally reviewed, improved sodium with diuresis, worsening pancytopenia in setting of COVID infection and perhaps chemotherapy induced Medications Administered Acetaminophen (Acetaminophen 325 Mg Tab) 650 mg PO QID PRN PRN Reason: pain/fever Stop: 07/04/24 02:18 Last Admin: 06/04/24 12:45 Dose: 650 mg Documented By: Admin: 06/04/24 04:09 Dose: 650 mg Documented By: MICKY Magnesium Oxide (Magnesium Oxide 400 Mg Tab) 400 mg PO QAM LAVON Stop: 07/04/24 08:59 Last Admin: 06/04/24 09:07 Dose: 400 mg Documented By: SARAHY Metoprolol Tartrate (Metoprolol Tartrate 25 Mg Tab) 25 mg PO Q6 LAVON Stop: 07/04/24 00:00 Last Admin: 06/04/24 12:44 Dose: 25 mg Documented By: Admin: 06/04/24 07:26 Dose: Not Given Documented By: Admin: 06/04/24 00:25 Dose: Not Given Documented By: MICKY Oxycodone HCl (Oxycodone Hcl 15 Mg Tabcr (Oxycontin)) 15 mg PO Q12H LAVON Stop: 06/17/24 20:29 Last Admin: 06/04/24 09:07 Dose: 15 mg Documented By: Admin: 06/03/24 21:03 Dose: 15 mg Documented By: AZRA Potassium Chloride (Potassium Chloride Crtab 20 Meq Tabcr) 20 meq PO DAILY LAVON Stop: 07/04/24 05:34 Last Admin: 06/04/24 09:12 Dose: 20 meq Documented By: Admin: 06/04/24 06:08 Dose: 20 meq Documented By: MICKY (3) CHF (congestive heart failure) Heart failure chronicity: unspecified Heart failure type: unspecified Qualified Code(s): I50.9 - Heart failure, unspecified
[2024-06-04] MEDS: SODIUM CHLORIDE 0.65% NA SOLN 45 ML (OCEAN) SCH (18:12)
[2024-06-04] MEDS: AMIODARONE 200 MG TAB PO SCH (20:25)
[2024-06-04] MEDS: MUPIROCIN 2% OINT 22 GM TUBE EXT SCH (20:27)
[2024-06-05 08:44] LABS: Albumin Globulin Ratio 0.9 (0.9-2); Albumin Level 3.2 gm/dl (3.4-5.0); BUN Creatinine Ratio 39.1 (10-20); Bilirubin,Total 0.6 mg/dl (0.2-1.0); Calcium 8.2 mg/dl (8.6-10.3); Creatinine Clr Calc Pharmacy 82.9 ml/min; Globulin 3.5 gm/dl (2.5-4.0); Magnesium 2.1 mg/dl (1.7-2.4); Total Protein 6.7 gm/dl (6.0-8.3)
[2024-06-05 09:07] LABS: Hematocrit (blood only) 26.8 % (37.0-47.0); Hemoglobin 8.3 g/dl (12.0-16.0); Mean Corpuscular Volume 87.3 fL (80.0-100.0); Platelet Estimate Signific. Decreased (Normal); RDW Coefficient of Variation 17.7 % (11.5-14.5); Red Blood Count 3.07 M/uL (4.20-5.40); White Blood Count 4.26 K/ul (4.8-10.8)
[2024-06-05 09:18] LABS: Platelet Count 8 K/uL (130-400)
[2024-06-05] MEDS: REMDESIVIR 100 MG in SODIUM CHLORIDE 0.9% 230 ML IV SCH (11:36)
[2024-06-05] MEDS ORDERED: SODIUM CHLORIDE 0.9% 50 ML IV PRN (13:14)
[2024-06-05] MEDS: FUROSEMIDE 40 MG/4 ML VIAL IV ONE (14:02)
[2024-06-05] MEDS: SODIUM CHLORIDE 0.9% 100 ML IV PRN (16:00)
--- NOTE | 2024-06-05 16:58 | Hospitalist Progress Note ---
Date of Service June 05, 2024 Assessment & Plan (1) Shortness of breath: Plan: -2/2 COVID based on testing -CTA PE less consistent with HF exaccerbation Plan: -continue remdesevir -prn nebulizers, incentive spirometry ordered -supportive care (2) Paroxysmal atrial fibrillation: Plan: -noted to be in RVR on arrival -patient asymptomatic -has not missed doses of amiodarone -has recent checked TSH WNL Plan: -consult cardiolog, appreciate recs -continue eliquis -continue metoprolol (3) CHF (congestive heart failure): Plan: -patient is 3Kg above dry weight per trend, base weight is around 47kg -patient has elevated BNP, trace pitting edema -however, notable hyponatremia to 125 -given lasix 40 IV x1 in ED Plan: -trend BMP -diuresis with platlet transfusion (4) Hyponatremia: Plan: -unclear etiology at this time, could be 2/2 heart failure vs. dehydration vs. 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: Plan: -see above, has been through extensive systemic therapies -for past 2 weeks ECOG has been 3 sliding to 4 -plan for further therapies on Monday, radiation tomorrow Plan: -discuss with radiation oncology in morning -will discuss with palliative care and oncology providers -may benefit from course of steroids to boost functional status, but given im munotherapy will hold off for now -hematology consult, appreciate recs (6) Pain from bone metastases: Plan: -continue home oxycontin, oxycodone, prn dilaudid for breakthrough (7) Pancytopenia: Plan: -acute pancytopenia, notable new leukopenia, thrombocytopenia, Hgb slightly lower than normal -unclear etiology, concern for bone marrow suppression from signifigant metastatic disease vs. delayed immunotherapy/chemotherapy/radiation side effect vs. myelofibrosis/ aplastic anemia vs. less likely nutrition deficincies, secondary malignancy, DIC, TTP, HUS -could be 2/2 amiodarone Plan: -supportive care, likely 2/2 infection/amiodarone (stopped) vs. chemotehrapy, discussed with oncology -platlet transfusion due to ongoing bleeding and low platlets Plan Feeding/fluids: heart healthy Analgesia: oxycontin/oxycodone Sedation: na Thromboprophylaxis: eliquis Head up position: na Ulcer prophylaxis: na Glycemic control: na Spontaneous breathing tr naial: na Bowel care: miralax prn Indwelling catheter removal: na Deescalation of antibiotics: na I spent a total of 60 minutes in direct patient care, including [id number] time with the patient and/or family, reviewing medical records, ordering and reviewing diagnostic tests, and coordinating care with other healthcare providers. This time includes: history taking, physical examination, medical decision making, counseling, ECG interpretation, imaging interpretation, lab interpretation, orders, and education, excluding time spent in the performance of separately billed services. Admission and Anticipated Discharge Date Admission Date: June 03, 2024 Subjective Patient seen and examined at bedside. Ms. Hdez is doing ok today. Had discussion regarding goals of care and next steps with family, see below. Patient is having intermittent nose bleeds, and a platelet count of 8. Consented for platlets. Otherwise, patient really wants to go home. [facility] minutes spent discussing goals and values with patient, son, and daughter. We discussed the patients poor clinical condition (pancytopenia, ongoing bleeding, declining functional status) in setting of advanced malignancy. Discussed 2 care paths forward, one being continued care aimed at improving clinical condition with hope of being able receive more cancer treatment vs. focusing on comfort. Discussed that either option is reasonable and risks and benefits. Discussed risks and benefits. Patient would like more time to discuss with her family, as she does not want to be in the hospital anymore and wants to go home but is not sure what to do about cancer directed therapy. Review of Systems Review of Systems: CONSTITUTIONAL: Patient denies fevers, chills, sweats and weight changes. EYES: Patient denies any visual symptoms. EARS, NOSE, AND THROAT: intermittant light nose bleed CARDIOVASCULAR: Patient denies chest pains, palpitations, orthopnea and paroxysmal nocturnal dyspnea. RESPIRATORY: SOB, cough GI: No nausea, vomiting, diarrhea, constipation, abdominal pain, hematochezia or melena. : No urinary hesitancy or dribbling. No nocturia or urinary frequency. No abnormal urethral discharge. MUSCULOSKELETAL: No myalgias or arthralgias. NEUROLOGIC: No chronic headaches, no seizures. Patient denies numbness, tingling or weakness. PSYCHIATRIC: Patient denies problems with mood disturbance. No problems with anxiety. ENDOCRINE: No excessive urination or excessive thirst. DERMATOLOGIC: Patient denies any rashes or skin changes. Physical Exam Physical Exam: Gen: A&O 3 NAD, cachexia noted HEENT: NCAT, EOMI, not icteric. External ears normal. No rhinorrhea. Moist mucous membranes. Neck: Supple, full range of motion, no observable masses, No meningeal sign. Lungs: No Respiratory distress. CV: irregular rhythm, tachycardic rate Abdomen: Soft, nondistended, No rebound tenderness. MSK: No joint swelling, no redness. Skin: No rashes, petechiae, lesions. Normal color per patient. Neuro: Normal Gait, Grossly intact. Psych: Appropriate for situation. Results & Data Results & Data Vital Signs (Past 12 Hours) Vital Signs Temp Pulse Pulse Resp BP BP Pulse Ox 06/05/24 16:49 36.3 C L 127 H 16 112/77 98 06/05/24 16:34 36.3 C L 122 H 16 113/62 99 06/05/24 16:05 36.3 C L 116 H 16 109/63 96 06/05/24 11:33 36.4 C L 127 H 16 129/92 99 06/05/24 08:00 06/05/24 07:54 36.4 C L 122 H 18 106/73 96 O2 Del Method 06/05/24 16:49 06/05/24 16:34 06/05/24 16:05 06/05/24 11:33 Room Air 06/05/24 08:00 Room Air 06/05/24 07:54 Room Air Laboratory Results -personally reviewed, Hgb relatively stable but platlet count drop to 8 with improved neutropenia noted 2/2 chemotherapy/COVID/amiodarone Medications Administered Acetaminophen (Acetaminophen 325 Mg Tab) 650 mg PO QID PRN PRN Reason: pain/fever Stop: 07/04/24 02:18 Last Admin: 06/05/24 14:02 Dose: 650 mg Documented By: Admin: 06/05/24 08:14 Dose: 650 mg Documented By: Admin: 06/05/24 02:22 Dose: 650 mg Documented By: Admin: 06/04/24 18:44 Dose: 650 mg Documented By: Admin: 06/04/24 12:45 Dose: 650 mg Documented By: Admin: 06/04/24 04:09 Dose: 650 mg Documented By: MICKY Remdesivir 100 mg/ Sodium (Chloride) 250 mls @ 250 mls/hr IV Q24H [facility] Stop: 06/06/24 12:59 Last Infusion: 06/05/24 13:04 Dose: Infused Documented By: Admin: 06/05/24 11:36 Dose: 250 mls/hr Documented By: DEO Sodium Chloride (Nss) 100 mls @ 15 mls/hr IV .Q6H40M PRN PRN Reason: For Transfusion Duration Stop: 06/05/24 21:15 Last Admin: 06/05/24 16:00 Dose: 15 mls/hr Documented By: DEO Magnesium Oxide (Magnesium Oxide 400 Mg Tab) 400 mg PO QAM [facility] Stop: 07/04/24 08:59 Last Admin: 06/05/24 08:16 Dose: 400 mg Documented By: Admin: 06/04/24 09:07 Dose: 400 mg Documented By: SARAHY Metoprolol Tartrate (Metoprolol Tartrate 25 Mg Tab) 25 mg PO Q6 [facility]AVON Stop: 07/04/24 00:00 Last Admin: 06/05/24 11:37 Dose: 25 mg Documented By: Admin: 06/05/24 05:29 Dose: 25 mg Documented By: Admin: 06/05/24 00:36 Dose: 25 mg Documented By: Admin: 06/04/24 18:14 Dose: 25 mg Documented By: Admin: 06/04/24 12:44 Dose: 25 mg Documented By: Admin: 06/04/24 07:26 Dose: Not Given Documented By: Admin: 06/04/24 00:25 Dose: Not Given Documented By: MICKY Mupirocin (Mupirocin 2% Oint 22 Gm Tube) 1 appln EXT BID LAVON Stop: 07/04/24 20:59 Last Admin: 06/05/24 08:16 Dose: 1 appln Documented By: Admin: 06/04/24 20:27 Dose: Not Given Documented By: PABLITO Oxycodone HCl (Oxycodone Hcl 15 Mg Tabcr (Oxycontin)) 15 mg PO Q12H [facility] Stop: 06/17/24 20:29 Last Admin: 06/05/24 08:14 Dose: 15 mg Documented By: Admin: 06/04/24 20:25 Dose: 15 mg Documented By: Admin: 06/04/24 09:07 Dose: 15 mg Documented By: Admin: 06/03/24 21:03 Dose: 15 mg Documented By: AZRA Potassium Chloride (Potassium Chloride Crtab 20 Meq Tabcr) 20 meq PO DAILY LAVON Stop: 07/04/24 05:34 Last Admin: 06/05/24 08:16 Dose: 20 meq Documented By: Admin: 06/04/24 09:12 Dose: 20 meq Documented By: Admin: 06/04/24 06:08 Dose: 20 meq Documented By: MICKY Sodium Chloride (Sodium Chloride 0.65% Na Soln 45 Ml (Nolan)) 1 sprays NA Q6 LAVON Stop: 07/04/24 17:59 Last Admin: 06/05/24 11:36 Dose: 1 sprays Documented By: Admin: 06/05/24 05:29 Dose: 1 sprays Documented By: CLASS C DRIVER Admin: 06/05/24 00:37 Dose: 1 sprays Documented By: Admin: 06/04/24 18:12 Dose: Not Given Documented By: FATEMEH (3) CHF (congestive heart failure) Heart failure chronicity: unspecified Heart failure type: unspecified Qualified Code(s): I50.9 - Heart failure, unspecified
--- NOTE | 2024-06-05 18:05 | Cardiology Progress Note ---
Date of Service June 05, 2024 Assessment & Plan (1) Shortness of breath: (2) 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: (3) Pain from bone metastases: (4) Pancytopenia: Plan Critically ill 69-year-old female with metastatic colon carcinoma with severe pain on palliative care radiation therapy recent issues with paroxysmal atrial fibrillation during last hospitalization. Patient not frankly aware of tachyarrhythmias or atrial fibrillation when present. Began on amiodarone at last discharge. Presents now with dyspnea multifactorial, pancytopenia atrial fibrillation with elevated ventricular rates 1. Atrial fibrillation with elevated ventricular response rates. Patient unable to sense tachyarrhythmias but elevated heart rates still present though improved somewhat with IV diltiazem. This however was resulted in with diuretics relative hypotension. Amiodarone and beta-blockers being held due to blood pressure. Will discussed with nursing staff to resume metoprolol tartrate at 25 every 6 first dose now. Discontinue IV diltiazem, amiodarone. Currently with anticoagulation contraindications. Concern regarding amiodarone resulting conversion as well as possible adverse reaction with recent start 2. Pancytopenia/thrombocytopenia: Stop apixaban given significant thrombocytopenia. Noted new medication of amiodarone since last admission will stop as above. Suspect not the culprit of hematologic disorder however 3. Pedal edema likely secondary to hypoalbuminemia. Current exam without pulmonary edema or volume overload 06/05/2024 1. Atrial fibrillation with elevated ventricular response rates.Patient asymptomatic Will change metoprolol to tartrate back to metoprolol succinate at 25 mg 3 times daily. Anticoagulation contraindicated in the setting of profound thrombocytopenia, Epistaxis Would not use amiodarone in this patient at this time Admission and Anticipated Discharge Date Admission Date: June 03, 2024 Subjective Patient seen, chart and telemetry reviewed. Still in atrial fibrillation with variable degree of elevation in heart rate. Results & Data Vital Signs (Past 12 Hours) Vital Signs Temp Pulse Pulse Resp BP BP Pulse Ox 06/05/24 18:01 36.6 C 122 H 16 111/74 95 06/05/24 17:19 36.4 C L 125 H 18 98/49 L 97 06/05/24 16:49 36.3 C L 127 H 16 112/77 98 06/05/24 16:34 36.3 C L 122 H 16 113/62 99 06/05/24 16:05 36.3 C L 116 H 16 109/63 96 06/05/24 11:33 36.4 C L 127 H 16 129/92 99 06/05/24 08:00 06/05/24 07:54 36.4 C L 122 H 18 106/73 96 O2 Del Method 06/05/24 18:01 06/05/24 17:19 06/05/24 16:49 06/05/24 16:34 06/05/24 16:05 06/05/24 11:33 Room Air 06/05/24 08:00 Room Air 06/05/24 07:54 Room Air Laboratory Results Laboratory Results - last 24 hr 06/03/24 06/05/24 06/05/24 22:45 08:08 14:35 WBC 4.26 L RBC 3.07 L Hgb 8.3 L Hct 26.8 L MCV 87.3 MCH 27.0 MCHC 31.0 L RDW Std Deviation 56.0 H RDW Coeff of Katina 17.7 H Plt Count 8 L* D Platelet Estimate Signific. Decreased L Haptoglobin 410 H Sodium 127 L Potassium 5.0 Chloride 93 L Carbon Dioxide 28 Anion Gap 6 BUN 18 Creatinine 0.46 L Est Cr Clr Drug Dosing 82.9 eGFR 103.52 BUN/Creatinine Ratio 39.1 H Glucose 135 H Calcium 8.2 L Magnesium 2.1 Total Bilirubin 0.6 AST 28 ALT 19 Alkaline Phosphatase 207 H Total Protein 6.7 Albumin 3.2 L Globulin 3.5 Albumin/Globulin Ratio 0.9 Blood Type B Positive
[2024-06-05] MEDS: METOPROLOL SUCC 50MG EXT REL TAB PO SCH (20:37)
[2024-06-06] MEDS: METOPROLOL TARTRATE 1 MG/ML VIAL IV STA (05:49)
[2024-06-06 07:52] LABS: BUN Creatinine Ratio 38.6 (10-20); Bilirubin,Total 0.7 mg/dl (0.2-1.0); Calcium 7.5 mg/dl (8.6-10.3); Creatinine Clr Calc Pharmacy 86.7 ml/min; Magnesium 1.8 mg/dl (1.7-2.4); Potassium 3.7 mmol/L (3.5-5.1)
[2024-06-06 07:58] VITALS: BP 119/60; PULSE 120; RESP 22; TEMP 97.9; O2SAT 96
[2024-06-06 08:15] LABS: Hemoglobin 7.4 g/dl (12.0-16.0); Mean Corpuscular Hemoglobin 26.8 pg (25.0-34.0); Mean Corpuscular Hgb Conc 30.8 g/dL (32.0-36.0); Platelet Count 14 K/uL (130-400); Platelet Estimate Signific. Decreased (Normal); RDW Coefficient of Variation 17.7 % (11.5-14.5); RDW Standard Deviation 55.7 fL (36.4-46.3); Red Blood Count 2.76 M/uL (4.20-5.40); White Blood Count 3.41 K/ul (4.8-10.8)
[2024-06-06] MEDS: FUROSEMIDE INJ 20 MG/2 ML VIAL IV ONE (12:56)
--- NOTE | 2024-06-06 13:19 | Cardiology Progress Note ---
Date of Service June 06, 2024 Assessment & Plan (1) Shortness of breath: (2) 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: (3) Pain from bone metastases: (4) Pancytopenia: Plan Critically ill 69-year-old female with metastatic colon carcinoma with severe pain on palliative care radiation therapy recent issues with paroxysmal atrial fibrillation during last hospitalization. Patient not frankly aware of tachyarrhythmias or atrial fibrillation when present. Began on amiodarone at last discharge. Presents now with dyspnea multifactorial, pancytopenia atrial fibrillation with elevated ventricular rates 1. Atrial fibrillation with elevated ventricular response rates. Patient unable to sense tachyarrhythmias but elevated heart rates still present though improved somewhat with IV diltiazem. This however was resulted in with diuretics relative hypotension. Amiodarone and beta-blockers being held due to blood pressure. Will discussed with nursing staff to resume metoprolol tartrate at 25 every 6 first dose now. Discontinue IV diltiazem, amiodarone. Currently with anticoagulation contraindications. Concern regarding amiodarone resulting conversion as well as possible adverse reaction with recent start 2. Pancytopenia/thrombocytopenia: Stop apixaban given significant thrombocytopenia. Noted new medication of amiodarone since last admission will stop as above. Suspect not the culprit of hematologic disorder however 3. Pedal edema likely secondary to hypoalbuminemia. Current exam without pulmonary edema or volume overload 06/05/2024 1. Atrial fibrillation with elevated ventricular response rates.Patient asymptomatic Will change metoprolol to tartrate back to metoprolol succinate at 25 mg 3 times daily. Anticoagulation contraindicated in the setting of profound thrombocytopenia, Epistaxis Would not use amiodarone in this patient at this time 06/06/2024 1. Atrial fibrillation with elevated ventricular response rate. Not aware of her rhythm. Multiple underlying medical morbidities in process. Metoprolol succinate increased to 50 mg twice per day. May consider addition of digoxin if not further rate controlled post discharge. Would not restart amiodarone Admission and Anticipated Discharge Date Admission Date: June 03, 2024 Subjective Patient was seen, chart, medications, telemetry reviewed. Remains in atrial fibrillation as expected with variable heart rate response still persistently elevated. No hypotension no acute complaints of chest pains dizziness or lightheadedness. Patient not aware of tachypalpitations or elevated heart rate Review of Systems Review of Systems: All systems reviewed & are unremarkable except as noted in Subjective Results & Data Vital Signs (Past 12 Hours) Vital Signs Temp Pulse Pulse Resp BP Pulse Ox O2 Del Method 06/06/24 13:06 36.6 C 120 H 22 119/60 96 06/06/24 11:05 Room Air 06/06/24 07:57 36.6 C 120 H 22 119/60 96 Room Air 06/06/24 06:04 117 H 06/06/24 05:53 133 H 104/59 L 06/06/24 05:49 142 H 06/06/24 04:21 36.5 C 140 H 20 100/66 94 Room Air Laboratory Results Laboratory Results - last 24 hr 06/05/24 06/06/24 14:35 06:22 WBC 3.41 L RBC 2.76 L Hgb 7.4 L Hct 24.0 L MCV 87.0 MCH 26.8 MCHC 30.8 L RDW Std Deviation 55.7 H RDW Coeff of Katina 17.7 H Plt Count 14 L* D Platelet Estimate Signific. Decreased L Sodium 128 L Potassium 3.7 D Chloride 94 L Carbon Dioxide 29 Anion Gap 5 BUN 17 Creatinine 0.44 L Est Cr Clr Drug Dosing 86.7 eGFR 104.64 BUN/Creatinine Ratio 38.6 H Glucose 104 H Calcium 7.5 L Magnesium 1.8 Total Bilirubin 0.7 AST 20 ALT 14 Alkaline Phosphatase 233 H Total Protein 6.0 Albumin 3.0 L Globulin 3.0 Albumin/Globulin Ratio 1.0 Blood Type B Positive
--- NOTE | 2024-06-06 19:00 | Discharge Summary ---
Discharge Summary Date of Service June 06, 2024 Principal Dx & Hospital Course #1 = Principal Diagnosis (1) Shortness of breath: -2/2 COVID based on testing -CTA PE less consistent with HF exaccerbation Plan: -continue remdesevir -prn nebulizers, incentive spirometry ordered -supportive care (2) Paroxysmal atrial fibrillation: -noted to be in RVR on arrival -patient asymptomatic -has not missed doses of amiodarone -has recent checked TSH WNL Plan: -consult cardiolog, appreciate recs -continue eliquis -continue metoprolol (3) CHF (congestive heart failure): -patient is 3Kg above dry weight per trend, base weight is around 47kg -patient has elevated BNP, trace pitting edema -however, notable hyponatremia to 125 -given lasix 40 IV x1 in ED Plan: -trend BMP -diuresis with platlet transfusion (4) Hyponatremia: -unclear etiology at this time, could be 2/2 heart failure vs. dehydration vs. 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: -see above, has been through extensive systemic therapies -for past 2 weeks ECOG has been 3 sliding to 4 -plan for further therapies on Monday, radiation tomorrow Plan: -discuss with radiation oncology in morning -will discuss with palliative care and oncology providers -may benefit from course of steroids to boost functional status, but given immunotherapy will hold off for now -hematology consult, appreciate recs (6) Pain from bone metastases: -continue home oxycontin, oxycodone, prn dilaudid for breakthrough (7) Pancytopenia: -acute pancytopenia, notable new leukopenia, thrombocytopenia, Hgb slightly lower than normal -unclear etiology, concern for bone marrow suppression from signifigant metastatic disease vs. delayed immunotherapy/chemotherapy/radiation side effect vs. myelofibrosis/ aplastic anemia vs. less likely nutrition deficincies, secondary malignancy, DIC, TTP, HUS -could be 2/2 amiodarone Plan: -supportive care, likely 2/2 infection/amiodarone (stopped) vs. chemotehrapy, discussed with oncology - Had long discussion with patient regarding prognosis, next steps, with her goals and values. Patient does not want to stay in the hospital any longer. She is not willing to stay even 1 more night. Shared decision making, patient understands risk of worsening bleed from low platelets and anemia that may become symptomatic. She is not sure if she would come back to the hospital. Hospice agencies were provided to her to call if she does not want to return the hospital and things are getting worse. She understands that she assumes the risk of leaving the hospital with low platelets and low hemoglobin. Notes For Next Care Provider 69 yo female with pmhx of stage IIIC poorly differentiated sigmoid adenocarcinoma (s/p ALEXA/BSO, laparoscopic coloproctostomy, s/p radiation treatments to right scapula/lumbar spine/left femur, s/p FOLFOX---->FOLFIRI, now with widespread metastatic disease, current tx of bevacizumab), hx of breast cancer, paroxysmal atrial fibrillation (on amiodarone, eliquis), HFpEF, hyponatremia who presentes for SOB and ankle swelling x1 day. Of note, had admission for similar concerns 3 weeks ago. In the ED, noted to have COVID, pancytopenia, admitted to medicine for further workup. Discussed with oncology, likely pancytopenia in setting of COVID and immunotherapy. Received several units of platlets for symptomatic thrombocytopenia. Had long discussion with patient regarding prognosis, next steps, with her goals and values. Patient does not want to stay in the hospital any longer. She is not willing to stay even 1 more night. Shared decision making, patient understands risk of worsening bleed from low platelets and anemia that may become symptomatic. She is not sure if she would come back to the hospital. Hospice agencies were provided to her to call if she does not want to return the hospital and things are getting worse. She understands that she assumes the risk of leaving the hospital with low platelets and low hemoglobin. Needs follow up with PCP, oncology. Medication Changes From Visit -nasal spray, ointment for nose bleed, lasix, CBC in one week. Admission HPI Per Admitting Provider 69 yo female with pmhx of stage IIIC poorly differentiated sigmoid adenocarcinoma (s/p ALEXA/BSO, laparoscopic coloproctostomy, s/p radiation treatments to right scapula/lumbar spine/left femur, s/p FOLFOX---->FOLFIRI, now with widespread metastatic disease, current tx of bevacizumab), hx of breast cancer, paroxysmal atrial fibrillation (on amiodarone, eliquis), HFpEF, hyponatremia who presentes for SOB and ankle swelling x1 day. Of note, had admission for similar concerns 3 weeks ago. Patient states that symptoms began yesterday. She states it started with some swelling in her toes that then spread to her ankles. She also has had a nasty cough for the past 2 days, which appears to be getting worse. She is having to use pillows to prop herself up to be able to breathe properly. She states this feels like her prior heart failure exacerbations. She states she is due for another cancer treatment on Monday. She denies chest pain, nausea, vomiting, other symptoms at this time. Still smokes about 6 cigarettes a day. Discussed patient's current trajectory. Discussed patient's goals and values. Patient states she would like to continue to pursue treatments for her cancer. Patient states that for the past 2 weeks she has essentially been in bed. Her ECOG is now 3 to sliding to a 4. We discussed the cancer trajectory, including next steps. Patient states she would like to be DNR/DNI at this time and has discussed this at length with prior providers. She does not want to suffer at end-of-life. She understands that she is likely declining. Discharge Exam Gen: A&O 3 NAD, cachexia noted HEENT: NCAT, EOMI, not icteric. External ears normal. No rhinorrhea. Moist mucous membranes. Neck: Supple, full range of motion, no observable masses, No meningeal sign. Lungs: No Respiratory distress. CV: irregular rhythm, tachycardic rate Abdomen: Soft, nondistended, No rebound tenderness. MSK: No joint swelling, no redness. Skin: No rashes, petechiae, lesions. Normal color per patient. Neuro: Normal Gait, Grossly intact. Psych: Appropriate for situation. Updated Medication List Medication Instructions Recorded Confirmed Type morphine 15 mg tablet,extended 15 mg PO AMHS 04/25/24 05/27/24 History release (MS Contin) oxycodone 5 mg tablet 5 mg PO Q4H PRN Breakthrough Pain, 04/25/24 06/03/24 History Moderate acetaminophen 500 mg tablet 500 mg PO Q6H PRN Breakthrough Pain 05/09/24 06/03/24 History apixaban 5 mg tablet (Eliquis) 5 mg PO AMHS 05/09/24 06/03/24 History ondansetron HCl 8 mg tablet 8 mg PO DIRECTED PRN n/v 05/09/24 06/03/24 History magnesium oxide 400 mg (241.3 mg 400 mg PO QAM 30 days #30 tabs 05/12/24 06/03/24 Rx magnesium) tablet potassium chloride 20 mEq 20 meq PO DAILY 30 days #30 tabs 05/12/24 06/03/24 Rx tablet,extended release(part/cryst) furosemide 20 mg tablet 20 mg PO DAILY #30 tabs 06/06/24 Rx metoprolol succinate 50 mg 50 mg PO BID #60 tabs 06/06/24 Rx tablet,extended release 24 hr mupirocin 2 % topical ointment 1 applic EXT BID #22 grams 06/06/24 Rx sodium chloride 0.65 % nasal spray 1 spray NA Q6 #45 mL 06/06/24 Rx aerosol (Saline Mist) Hospital Stay Data Consultations 06/03/24 20:13 ED Decision to Admit Stat 06/04/24 07:18 Consult Cardiology Routine 06/04/24 09:14 Consult Hematology Routine Diagnostic Imagining Performed 06/03/24 21:37 CT angio chest PE protocol Stat Pending Results Patient Have Any Pending Studies at Discharge: Yes Discharge Instructions Given to Patient (Per Discharging Provider) 1. Shared decision making with patient, patient would like to go home, unsure if she would return to hospital vs. hospice. Understands risks of bleed and other events 2/2 low blood counts, including critical anemia. She accepts these risks. 2. Please get follow up CBC in 1 week. 3. Discussed return precautions. 4. If do not want to return to hospital, please call hospice agencies of your choosing to sign up for home hospice. Total Time Total Time Spent Total Time Spent (In Minutes): I spent a total of 45 minutes in direct patient care, including [id number] time with the patient and/or family, reviewing medical records, ordering and reviewing diagnostic tests, and coordinating care with other healthcare providers. This time includes: history taking, physical examination, medical decision making, counseling, ECG interpretation, imaging interpretation, lab interpretation, orders, and education, excluding time spent in the performance of separately billed services.
--- NOTE | 2024-06-07 22:14 | Electrocardiogram Report ---
Test Reason : Blood Pressure : */* mmHG Vent. Rate : 117 BPM Atrial Rate : * BPM P-R Int : * ms QRS Dur : 74 ms QT Int : 318 ms P-R-T Axes : * 67 117 degrees QTcB Int : 443 ms Atrial fibrillation with rapid ventricular response Marked ST abnormality, possible inferior subendocardial injury Abnormal ECG When compared with ECG of 03-Jun-2024 18:24, No significant change was found Confirmed by Bruce Ramírez ([id number]) on 06/07/2024 10:14:36 PM Referred By: REFERRED SELF Confirmed By: Bruce Ramírez
== END 2024-06-06 18:16 | disposition home or self-care (01) | DRG 178 ==
LOC: ED 17:45 → EDINP 21:30 → 2S 21:57
DX: Z88.8 Allergy status to other drugs, medicaments and biological substances; C79.51 Secondary malignant neoplasm of bone; Z79.01 Long term (current) use of anticoagulants; U07.1 COVID-19; T45.1X5A Adverse effect of antineoplastic and immunosuppressive drugs, initial encounter; I50.32 Chronic diastolic (congestive) heart failure; C18.7 Malignant neoplasm of sigmoid colon; D61.818 Other pancytopenia; Z66 Do not resuscitate; E87.1 Hypo-osmolality and hyponatremia; Z79.899 Other long term (current) drug therapy; Z85.3 Personal history of malignant neoplasm of breast; I48.0 Paroxysmal atrial fibrillation; G89.3 Neoplasm related pain (acute) (chronic); F17.210 Nicotine dependence, cigarettes, uncomplicated; E88.09 Other disorders of plasma-protein metabolism, not elsewhere classified; E86.0 Dehydration; D69.6 Thrombocytopenia, unspecified